=== PATIENT | female | born 2000 | race Caucasian/White ===

== ENCOUNTER 2022-03-18 15:01 | Emergency (ER) | payer OTHER ==
--- OUTSIDE RECORDS SUMMARY | 2022-03-18 15:06 | XMS REPORT | Continuity of Care Document ---
:2000 Author Organization [facility] t Address [address] Stewart [address] [place] [address] Care Team Providers Name Role Phone FREDERICK RICHARDSON Primary Care Physician Unavailable Brittnee Ramirez Attending Clinician Unavailable ANTONIA PIKE Attending Clinician Unavailable Ghanshyam Bragg Attending Clinician Unavailable Antonia Pike MD Attending Clinician Kishor Bishop Attending Clinician Unavailable Luis Burciaga Attending Clinician Unavailable Effie Solitario Attending Clinician Unavailable Dottie Chavez Attending Clinician Unavailable Miladis MIRELES, Nathalia Cagle Attending Clinician Ricarda Khan MD Attending Clinician Olivier BENDER HAND, Aneta Esparza Attending Clinician Pearl Chavez Attending Clinician Unavailable Aide COLE, Tashia Rae Attending Clinician Unavailable Berhane CHAVEZ, Lily Hummel Attending Clinician Maryellen PICKERING, Lydia Hilton Attending Clinician Doctor Unassigned, [place] Attending Clinician Unavailable Amauri RUSS, Madhavi Delcid Attending Clinician Brittnee Ramirez Admitting Clinician Unavailable Malu Tolentino Admitting Clinician Unavailable Emily Hurtado Admitting Clinician Unavailable Luis Burciaga Admitting Clinician Unavailable Effie Solitario Admitting Clinician Unavailable Physician, No Primary or Family Admitting Clinician UnavailDottie Mitchell Admitting Clinician Unavailable Ricarda Khan MD Admitting Clinician Pearl Chavez Admitting Clinician Unavailable Payers Payer Name Policy Type Policy Number Effective Date Expiration Date S mónica FORMERLY [facility] [id number] 2021 00:00:00 Problems Condition Condition Condition Status Onset Resolution Last Treating Co mments Source Name Details Category Date Date Treatment Clinician Date Anxiety Anxiety Disease Active [facility] Depression Depression Disease Active U nivers [facility] Allergies, Adverse Reactions, Alerts Allergy Allergy Status Severity Reaction(s) Onset Inactive Treating Comm ents Source Name Type Date Date Clinician No Known DA Active [facility] Allergie 11-23 Clear s 00:00: [place] 00 [facility] No Known DA Active [facility] Allergie 11-23 Clear s 00:[facility]: [place] [facility] MALIC DA Active SV TONGUE 2018-0 [facility] ACID SWELLING, 608 Clear THROAT 00:00: [place] CLOSING [address] [facility] Malic Drug Active Swelling 2018-0 Univers Acid Allergy 6-08 ity of 00:00: [place] 00 [facility] MALIC DRUG Active High Swelling 2018-0 Univers ACID INGREDI 6-08 ity of 00:00: 00 Medical Branch SOUR DRUG Active Anaphylaxis 2018-0 Unive rs MOREAU INGREDI 4-30 ity of 00:00: 00 Medical Branch Sour Propensi Active Anaphylaxis 2018-0 Sour Uni vers [place] ty to 4-30 flavoring ity of adverse 00:00: on all [place] [facility] [place] Social History Social Habit Start Date Stop Date Quantity Comments Source Exposure to 2022-02-15 2022-02-25 Not sure [facility] SARS-CoV-2 00:00:00 13:08:00 [facility] (event) [place] Alcohol intake 2022-02-25 2022-02-25 Ex-drinker [facility] 00:00:00 00:00:00 (finding) [facility] Tobacco use and 2022-02-25 2022-02-25 Smokeless tobacco Un iversity of exposure 00:00:00 00:00:00 non-user [facility] Sex Assigned At [birth year] Universit y of 00:00:00 00:00:00 [facility] Smoking Status Start Date Stop Date Source Never smoked tobacco [facility] Medications Ordered Filled Start Stop Current Ordering Indication Dosage Frequency Signature Comments Components Source Medication Medication Date Date Medication? Clinician (SIG) Name Name FLUTICASONE 2020-07 Yes [id number] SPRAY 1 Univers PROPIONATE 2-02 SPRAY INTO ity of 50 00:00: EACH [place] mcg/actuati 00 NOSTRIL Medic al on nasal EVERY DAY Branch spray EPINEPHrine 2019-07 Yes [id number] INJECT 0.3 Univers 0.3 mg/0.3 1-30 ML BY ity of mL 00:00: INTRAMUSCU [place] injection 00 LAR ROUTE Medic al ONCE NOW Branch FOR 1 DOSE. Immunizations Ordered Immunization Filled Immunization Date Status Commen ts Source Name Name Meningococcal 2019-02-23 Completed [place] of Polysaccharide 00:00:00 [place] [facility] (groups A, C, Y and Branc h W-135) conjugate vaccine (MCV4P) DTP 2005-01-21 Completed University of 00:00:00 [facility] HIB 3 Dose Schedule 2005-01-21 Completed Unive rsity of 00:00:00 [facility] HEPATITIS A 2005-01-21 Completed University of 00:00:00 [facility] Pneumococcal 7 2005-01-21 Completed University of Conjugate, PCV7 00:00:00 [facility] ical (Prevnar7) Branch MMR 2003-12-25 Completed University of 00:00:00 [facility] Polio (IPV/OPV) 2003-12-25 Completed Universit y of 00:00:00 [facility] Pneumococcal 7 2003-12-25 Completed University of Conjugate, PCV7 00:00:00 [facility] ical (Prevnar7) Branch DTP 2003-06-19 Completed University of 00:00:00 [facility] HIB 3 Dose Schedule 2003-06-19 Completed Unive rsity of 00:00:00 [facility] Hep B, Adol or Pedi 2003-06-19 Completed Unive rsity of Dosage 00:00:00 [facility] Polio (IPV/OPV) 2003-06-19 Completed Universit y of 00:00:00 [facility] Hep B, Adol or Pedi 2002 Completed Unive rsity of Dosage 00:00:00 [facility] Procedures Procedure Date / Time Performed Performing Clinician Gisele rosario [id number] 2021-03-26 00:00:00 MAXBA [facility] [id number] 2021-03-26 00:00:00 MAXBA [facility] Encounters Start End Encounter Admission Attending Care Care Encounter Source Date/Time Date/Time Type Type Clinicians Facility Department ID 2020-11-23 Inpatient [place], [facility] OLGA [id number] [facility] 00:02:00 Brittnee [id number] [facility] 2020-10-05 Inpatient HCACL KAELA [id number] [facility] 01:14:00 [id number] [facility] 2020-08-22 Inpatient HCACL KAELA [id number] [facility] 20:18:00 [id number] [facility] 2020-02-15 Inpatient HCACL KAELA [id number] [facility] 22:49:00 [facility] 2022-03-20 2022-03-20 Outpatient R PIKE, [facility] [id number] Univers 14:10:00 14:10:00 ANTONIA [id number] [facility] 2022-03-20 2022-03-20 Outpatient R SHAHZAD [facility] [id number] Univers 14:10:00 14:10:00 ANTONIA [facility] 2022-03-16 2022-03-16 Outpatient R SHAHZAD [facility] [id number] Univers 14:10:00 14:10:00 ANTONIA [id number] [facility] 2022-03-16 2022-03-16 Outpatient R SHAHZAD [facility] [id number] Univers 14:10:00 14:10:00 ANTONIA [facility] 2022-03-13 2022-03-13 Outpatient R SHAHZAD [facility] [id number] Univers 13:30:00 13:30:00 ANTONIA [id number] [facility] 2022-03-13 2022-03-13 Outpatient R SHAHZAD [facility] [id number] Univers 13:30:00 13:30:00 [facility] 2022-03-06 2022-03-06 Emergency EM Oalmita, HCACL AERS [id number] [facility] 15:06:00 16:12:00 Oluwadolapo 45 Cl [facility] 2022-03-04 2022-03-04 Telephone MARISOL Pike [id number] Univers 00:00:00 00:00:00 Antonia Garzon PEDIATRIC [id number] ity of [place] [id number] [place] [address] Branch [facility]ARE [facility] 2021-11-11 2021-11-11 Emergency EM Bishop, HCACL AERS [id number] [facility] 00:16:00 00:55:00 Kishor [id number] [facility] 2021-08-08 2021-08-08 Emergency EM Oalmita, HCACL AERS [id number] [facility] 22:06:00 22:30:00 Oluwadolapo [id number] [facility] 2021-08-08 2021-08-08 Emergency EM Oyebadejo, HCACL HC[facility]L [id number] [facility] 22:06:00 22:30:00 Oluwadolapo 00 Cl [facility] 2021-03-25 2021-03-28 Inpatient EL Maximos, HCACL OBPP [id number] [facility] 14:56:00 15:32:00 Luis [id number] [facility] 2021-03-25 2021-03-28 Inpatient EL Maximos, HCACL OBPP [id number] [facility] 14:56:00 15:32:00 Luis 40 [facility] 2021-03-12 2021-03-13 Emergency EM Billy HCACL OLGA [id number] [facility] 21:07:00 01:05:00 Diaz, [id number] [facility] 2021-03-01 2021-03-01 Emergency EM Maximos, HCACL OLGA [id number] [facility] 05:33:00 09:00:00 Luis [id number] [facility] 2021-02-17 2021-02-17 Emergency EM Billy HCACL OLGA [id number] [facility] 15:17:00 16:47:00 Diaz, [id number] [facility] 2021-02-12 2021-02-12 Emergency EM Billy HCACL OLGA [id number] [facility] 19:14:00 22:29:00 Diaz, [id number] [facility] 2021-01-29 2021-01-29 Emergency EM Bhalani, HC[facility]L OLGA [id number] [facility] 02:30:00 03:50:00 Dottie [id number] [facility] 2021-01-13 2021-01-13 Emergency Nathalia Redding Tsering [facility] [id number] 01:18:00 02:30:00 Ricarda Khan [id number] Bre[place] 4.2.7.2.686 [place] [id number] 2021-01-11 2021-01-11 Urgent Grow, Marisol [id number] 17:51:24 18:25:45 Care Aneta Pediatric [id number] Vil[place] s and 4.2.7.2.686 Adult [id number] [facility] 2020-12-25 2020-12-25 Emergency EM Scott, HCACL OLGA [id number] [facility] 15:08:00 18:26:00 Pearl [id number] [facility] 2020-11-23 2020-11-23 Emergency EM Ashley, HCACL OLGA [id number] [facility] 00:02:00 02:58:00 Brittnee [id number] [facility] 2020-11-01 2020-11-01 NICOLAS Calderon [id number] 00:00:00 00:00:00 (Out) Tashia SHELTON [id number]686 [id number] 019 2020-10-30 2020-10-31 Emergency [facility], [facility] [id number] 22:11:00 00:46:00 Lily Bauman [id number] Breeding 4.2.7.2.686 [place] [id number] 2020-10-26 2020-10-26 Urgent Grow, Marisol [id number] 18:33:25 19:03:11 Care Aneta Pediatric [id number] Vilma s and 4.2.7.2.686 Adult [id number] [facility] 2020-09-18 2020-09-19 Emergency [facility], [facility] [id number] 23:47:00 01:47:00 Lydia Bauman 350.1.13.10 Bre[place] 4.2.7.2.686 [place] [id number] 2020-09-18 2020-09-18 Gabriella VALENZUELA [id number] 00:00:00 00:00:00 Only Unassigned, NIKITA 350.1.13.10 [facility] 4.2.7.2.686 [id number] 2020-08-22 2020-08-22 Office Madhavi Baugh [id number] 15:52:31 16:12:31 Visit Ali Pediatric 350.1.13.10 s and 4.2.7.2.686 Adult [id number] Primary [facility] Results Test Description Test Time Test Comments Results Result [facility] e Comments - XR ANKLE 3 + V 2022-03-06 RT 00:00:00 [facility] : 2000 Sex: F FAX: Emily Mckoy MD [phone] [place]: [place] St: PRE FAX: Romeo Bragg Name: NILA BECERRA FSED : 2000 Age/S: 21/F [address] [facility] Unit #: [id number] Loc: RK [place], Raul [address] Phys: Ghanshyam Bragg MD Acct: [id number] Dis Date: Status: PRE ER PHONE #: Exam Date: 03/06/2022 1600 FAX #: Reason: R ANKLE PAIN AFTER FALL EXAMS: CPT CODE: [id number] XR ANKLE 3 + V RT [id number] PROCEDURE INFORMATION: Exam: XR Right Ankle Exam date and time: 03/06/2022 3:54 PM Age: 21 years old Clinical indication: Pain; Ankle; Right; Additional info: R ankle pain after fall TECHNIQUE: Imaging protocol: Radiologic exam of the Right ankle. Views: 3 or more views. AP Oblique Lateral COMPARISON: CR XR ANKLE 3 + V RT 06/01/2015 10:32 PM FINDINGS: Bones/joints: There is normal alignment without fractures or dislocations. The tibiotalar joint and talar dome are unremarkable. The subtalar joint is unremarkable. The mortise is normal. The distal tibia-fibular alignment is unremarkable. There is no ankle joint effusion. Soft tissues: There is no soft tissue swelling. There are no radiopaque foreign bodies. Notes: If there is further concern, recommend follow-up radiographs or MRI for complete assessment. IMPRESSION: No fracture or dislocation at 5021 Reported and signed by: Eemka Pickering M.D. CC: Emily Hurtado MD; Ghanshyam Bragg MD Technologist: RT Valerie(R)(CT) Trnscrd Date/Time/By: 03/06/2022 ([id number]) : By: SandraL Orig Print D/T: S: 03/06/2022 (7948) PAGE 1 Signed Report - XR FOOT 3 + V RT 2022-03-06 00:00:00 [facility] : 2000 Sex: F FAX: Emily Mckoy MD [phone] [place]: [place] St: PRE FAX: Romeo Bragg Name: CATRACHO BECERRAABECLINT Rileyin FSED : 2000 Age/S: 21/F [address] [facility] Unit #: [id number] Loc: [place] [address] Phys: Ghanshyam Bragg MD Acct: [id number] Dis Date: Status: PRE ER PHONE #: Exam Date: 03/06/2022 7278 FAX #: Reason: r foot injury EXAMS: CPT CODE: [id number] XR FOOT 3 + V RT [id number] PROCEDURE INFORMATION: Exam: XR Right Foot Exam date and time: 03/06/2022 3:35 PM Age: 21 years old Clinical indication: Pain; Foot; Right; Additional info: R foot injury TECHNIQUE: Imaging protocol: Radiologic exam of the Right foot. Views: 3 or more views. AP Oblique Lateral COMPARISON: CR XR TIBIA/FIBULA 2 V RT 06/01/2015 10:54 PM FINDINGS: Bones/joints: There is normal alignment without fractures or dislocations. The joints appear unremarkable. Soft tissues: There are no radiopaque foreign bodies. There is no soft tissue gas or osseous erosive changes noted. Notes: If there is further concern, recommend follow-up radiographs or MRI for complete assessment. IMPRESSION: No fractures or dislocation at 1604 Reported and signed by: Emeka Pickering M.D. CC: Emily Hurtado MD; Ghanshyam Bragg MD Technologist: Katerina Rosas RT(R)(CT) Trnscrd Date/Time/By: 03/06/2022 ([id number]) : By: KaneSBL Orig Print D/T: S: 03/06/2022 (1383) PAGE 1 Signed Report URINE HCG TRIAGE (ER ONLY) 2021-11-11 08:40:00 Test Item Value Reference Range Interpretation Comme nts URINE HCG TRIAGE (ER ONLY) (test code = HCGTRIAGE) NEGATIVE Neg ative Urine Test Result: NEGATIVEAre internal controls (presence of a control line & clear background) OK? YLot # of HCG Test Kit: [id number] Date of Kit: 02/15/23Test Performed by: Carlo Mancillaomed on: 11/11/21COMMENTS: NEGATIVEUA DIPSTICK [id number] 00:46:00 Test Item Value Reference Range Interpretation Comments UA GLUCOSE DIPSTIC POC NEGATIVE NEGATIVE (test code = GLUUP) UA BILIRUBIN DIPSTICK NEGATIVE NEGATIVE (test code = BILU) UA KETONE DIPSTICK POC NEGATIVE NEGATIVE (test code = KETUP) UA SPECIFIC GRAVITY (test 1.010 1.005-1.030 N code = SGU) UA BLOOD DIPSTIC POC NEGATIVE NEGATIVE Perform ed by (test code = BLUP) certified splicer machine operator at [facility] ed [facility] UA PH DIPSTIC POC (test 7 5.0-7.0 N code = PHUP) UA PROTEIN DIPSTICK POC NEGATIVE NEGATIVE (test code = DPROUP) UA UROBILINIOGEN QUAL NORMAL 0.2-1.0 (test code = UROQL) UA NITRITE DIPSTICK POC NEGATIVE Negative (test code = NITUP) UA LEUKOCYTE ESTERASE W Negative NEGATIVE REFLEX (test code = LEUUR) SURGICAL PATH [id number] 13:13:00 Test Item Value Reference Range Interpretation Comments SURGICAL PATH SPECIMENS (test code = S) RUN DATE: 03/28/21 [place] - LAB PAGE 1 RUN TIME: 1313 Specimen Inquiry RUN USER: INTERFACE ARTEMIO ENT: NILA BECERRA [facility] #: [id number] LOC: MAIKEL #: [id number] AGE/SX: 20/F ROOM: [facility] RE03/25/21REG DR: Luis Burciaga MD : [birth year] BED: 1 DIS: STATUS: ADM IN TLOC: SPEC #: [id number] RECD: 03/27/21 STATUS: GLENN RE #: [id number] SLOAN: 03/26/21- SUBM DR: Luis Burciaga MD ENTERED: 03/27/21 SP TYPE: SURG SPEC OTHR DR: ORDERED: GM LEVEL 5 CODES: [id number] - PLACENTA, NOS PROCEDURES: GM LEVEL 5 (03/27/21) TISSUES: PLACENTA, NOS FINAL DIAGNOSIS Placenta, delivery: Third trimester placenta, 584 g, large for gestation age; membranes with no acute inflammation; Focal decidual vasculopathy; Trivascular umbilical cord unremarkable. GROSS AND MICROSCOPIC GROSS DESCRIPTION: Received in formalin and labeled "Placenta" is a jauregui placenta, 18 x 16 x 3 cm. The trivascular umbilical cord measures 47 x 1.3 x 1.1 cm, inserting eccentrically to a location 5 cm to the placental edge. The membranes attach marginally and are translucent. The placenta weighs 584 g after trimming the membranes and cord. The surface is blue-purple, with superficially distributed chorionic vessels. The maternal surface shows red-brown intact cotyledons. The parenchyma is dark red and spongy, with no discrete lesion identified. Cassette summary: (A) - cord and membranes; (B) placenta edge; (C) - placenta center. MICROSCOPIC EXAMINATION: A microscopic examination was performed to arrive at the diagnostic conclusion reported. PRE-OP DIAGNOSIS 37.4 WK INTRAUTERINE ----- Signed SIGNATURE ON FILE Misty Emmanuel 03/28/21 1313 END OF REPORT CBC W/AUTO [id number] 07:03:00 Test Item Value Reference Range Interpretation Comments WHITE BLOOD CELL (test code = 12.6 x10 3/uL 4.5-11.0 H WBC) RED BLOOD CELL (test code = 2.95 x10 6/uL 3.54-5.02 L RBC) HEMOGLOBIN (test code = HGB) 8.0 g/dL 11.0-15.0 L HEMATOCRIT (test code = HCT) 25.8 % 33.0-45.0 L MEAN CELL VOLUME (test code = 87.5 fL 81.0-99.0 N MCV) MEAN CELL HGB (test code = MCH) 27.1 pg 27.0-33.0 N MEAN CELL HGB CONCETRATION 31.0 g/dL 33.0-37.0 L (test code = MCHC) RED CELL DISTRIBUTION WIDTH CV 14.5 % 11.5-14.5 N (test code = RDW) RED CELL DISTRIBUTION WIDTH SD 46.5 fL 37.0-54.0 N (test code = RDW-SD) PLATELET COUNT (test code = 294 x10 3/uL 150-400 N PLT) MEAN PLATELET VOLUME (test code 11.7 fL 7.0-9.0 H = MPV) NEUTROPHIL % (test code = NT%) 64.4 % 56.0-77.0 N IMMATURE GRANULOCYTE % (test 0.5 % 0.0-2.0 N code = IG%) LYMPHOCYTE % (test code = LY%) 24.9 % 14.0-32.0 N MONOCYTE % (test code = MO%) 9.4 % 4.8-9.0 H EOSINOPHIL % (test code = EO%) 0.6 % 0.3-3.7 N BASOPHIL % (test code = BA%) 0.2 % 0.0-2.0 N NUCLEATED RBC % (test code = 0.0 % 0-0 N NRBC%) NEUTROPHIL # (test code = NT#) 8.09 x10 3/uL 2.0-7.6 H IMMATURE GRANULOCYTE # (test 0.06 x10 3/uL 0.00-0.03 H code = IG#) LYMPHOCYTE # (test code = LY#) 3.13 x10 3/uL 1.0-3.8 N MONOCYTE # (test code = MO#) 1.18 x10 3/uL 0.1-0.8 H EOSINOPHIL # (test code = EO#) 0.07 x10 3/uL 0.0-0.2 N BASOPHIL # (test code = BA#) 0.03 x10 3/uL 0.0-0.2 N NUCLEATED RBC # (test code = 0.00 x10 3/uL 0.0-0.1 N NRBC#) MANUAL DIFF REQUIRED (test code NO = MDIFF) CORD VENOUS BLOOD [id number] 18:41:00 Test Item Value Reference Range Interpretation Comments CORD VENOUS PH (test code = PHCV) 7.22 7.25-7.45 L CORD VENOUS PCO2 (test code = 57 mmHg 27-49 H PCO2CV) CORD VENOUS PO2 (test code = 17 mmHg 17-41 N PO2CV) CORD VENOUS HCO3 (test code = 23.2 MMOL/L 12-28 N HCO3CV) CORD VENOUS BASE EXCESS (test -4.5 mmol/L -8.0-0.00 N code = BEXCV) CORD VENOUS 02 SAT (test code = 17 % O2SCV) CORD ARTERIAL BLOOD [id number] 18:40:00 Test Item Value Reference Range Interpretation Comments CORD BLOOD PH (test code = PH/C) 7.19 7.18-7.38 N CORD BLOOD PCO2 (test code = 59 mmHg 32-66 N PCO2/C) CORD BLOOD PO2 (test code = 22 mmHg 6-30 N PO2/C) CORD BLOOD HCO3 (test code = 22 mmol/L 17-27 N HCO3/C) BASE EXCESS CORD (test code = -5.9 mmol/L -8.0-0.0 N ARUN/C) O2 SATURATION (test code = O2S/C) 25 % 72-77 L RAPID PLASMA [id number] 10:40:00 Test Item Value Reference Range Interpretation Comments RAPID PLASMA REAGIN (test code = NONREACTIVE NONREACTIVE RPR) AG HEPATITIS B [id number] 10:40:00 Test Item Value Reference Range Interpretation Comments AG HEPATITIS B SURFACE NON REACTIVE INDEX NonReactive (test code = HBSAG) AB HIV 1 10:40:00 Test Item Value Reference Range Interpretation Comments AB HIV 1 2 (test code = MQM08HI) Nonreactive Nonreactive COVID 19 Asymptomatic IH [id number] 20:20:00 Test Item Value Reference Range Interpretation Comments COVID 19 Asymptomatic Negative Negative A nega tive result is IH AG (test code = presumpti ve and should COVNONPUIAG) be confirmedwit h an FDA authorized mole cular assay, if neces sabrina forpatient lisa gement.A positive result does not rule out co-inf ections withother patho gens.This test detects timothy th viable (live) and non-viable,SARS -CoV, and SARS-CoV-2. Naima t performance dep ends on theamount of vi juan (antigen) in th e sample.This naima t has not been FDA cleare d or approved; the t est hasbeen authori zed by FDA under an Em ergency Use Authorizati on(EUA) for use by labo ratories certified under the CLIA thatmeet the requirements to perform moderate, high or waivedcomplexit y tests. URINALYSIS [id number] 18:48:00 Test Item Value Reference Range Interpretation Comments UA COLOR (test code = COLU) YELLOW YEL/STRAW UA APPEARANCE (test code = APPU) SL CLOUDY CLEAR UA GLUCOSE DIPSTICK (test code = NEGATIVE NEGATIVE DGLUU) UA BILIRUBIN DIPSTICK (test code NEGATIVE NEGATIVE = BILU) UA KETONE DIPSTICK (test code = NEGATIVE NEGATIVE KETU) UA SPECIFIC GRAVITY (test code = 1.010 1.005-1.030 N SGU) UA BLOOD DIPSTICK (test code = NEGATIVE NEGATIVE KURTIS) UA PH DIPSTICK (test code = SHAINA) 7.0 5.0-7.0 N UA PROTEIN DIPSTICK (test code = 1+ NEGATIVE A PROU) UA UROBILINIOGEN DIPSTICK (test 0.2 mg/dL 0.2-1.0 code = URO) UA NITRITE DIPSTICK (test code = NEGATIVE NEGATIVE BHUPENDRA) UA LEUKOCYTE ESTERASE DIPSTICK NEGATIVE NEGATIVE (test code = LEUU) UA RBC (test code = RBCU) 4-10 RBC/HPF 0-3 UA WBC NO REFLEX (test code = 0-3 WBC/HPF 0-3 WBCUCL) UA BACTERIA (test code = BACU) TRACE /HPF NONE SEEN UA SQUAMOUS CELLS (test code = 0-5 /HPF NONE SEEN SQU) UA MUCUS (test code = MUCU) TRACE /LPF NONE SEEN RAPID PLASMA [id number] 18:11:00 Test Item Value Reference Range Interpretation Comments RAPID PLASMA REAGIN (test code = RPR) NONREACTIVE AG HEPATITIS B [id number] 18:11:00 Test Item Value Reference Range Interpretation Comments AG HEPATITIS B SURFACE NON REACTIVE INDEX NonReactive (test code = HBSAG) AB HIV 1 18:11:00 Test Item Value Reference Range Interpretation Comments AB HIV 1 2 (test code = [id number]) Nonreactive Nonreactive COMPREHENSIVE METABOLIC [id number] 17:45:00 Test Item Value Reference Range Interpretation Comments SODIUM (test code = NA) 138 mEq/L 134-147 N POTASSIUM (test code = 4.0 mEq/L 3.4-5.0 N K) CHLORIDE (test code = 107 mEq/L 100-108 N CL) CARBON DIOXIDE (test 22 mEq/l 21-33 N code = CO2) ANION GAP (test code = 13 0-20 N GAP) GLUCOSE (test code = 78 mg/dL 70-110 N GLU) BLOOD UREA NITROGEN < 5 mg/dL 7-18 L (test code = BUN) GLOMERULAR FILTRATION 160.7 110-120 H Units of measure = RATE (test code = GFR) ml/mi n/1.73 m2 CREATININE (test code = 0.5 mg/dL 0.6-1.3 L CREAT) TOTAL PROTEIN (test 6.9 g/dL 6.4-8.2 N code = PROT) ALBUMIN (test code = 2.80 g/dL 3.4-5.0 L ALB) CALCIUM (test code = 8.9 mg/dL 8.0-10.5 N CA) BILIRUBIN TOTAL (test 0.40 mg/dL 0.0-1.0 N code = BILT) SGOT/AST (test code = 14 IUnit/L 15-37 L AST) SGPT/ALT (test code = < 7 IUnit/L 30-65 L ALT) ALKALINE PHOSPHATASE 153 IUnit/L 60-350 N TOTAL (test code = ALKP) URIC [id number] 17:45:00 Test Item Value Reference Range Interpretation Comments URIC ACID (test code = URIC) 4.0 mg/dL 2.6-7.2 N LACTIC DEHYDROGENASE(LDH)2021-03-25 17:45:00 Test Item Value Reference Range Interpretation Comments LACTIC DEHYDROGENASE(LDH) (test 225 IUnits/L 84-246 N code = LDH) CBC W/AUTO [id number] 17:24:00 Test Item Value Reference Range Interpretation Comments WHITE BLOOD CELL (test code = x10 3/uL 4.5-11.0 WBC) RED BLOOD CELL (test code = RBC) x10 6/uL 3.54-5.02 HEMOGLOBIN (test code = HGB) g/dL 11.0-15.0 HEMATOCRIT (test code = HCT) % 33.0-45.0 MEAN CELL VOLUME (test code = fL 81.0-99.0 MCV) MEAN CELL HGB (test code = MCH) pg 27.0-33.0 MEAN CELL HGB CONCETRATION (test g/dL 33.0-37.0 code = MCHC) RED CELL DISTRIBUTION WIDTH CV % 11.5-14.5 (test code = RDW) PLATELET COUNT (test code = PLT) 359 x10 3/uL 150-400 N NEUTROPHIL % (test code = NT%) % 56.0-77.0 LYMPHOCYTE % (test code = LY%) % 14.0-32.0 NEUTROPHIL # (test code = NT#) x10 3/uL 2.0-7.6 LYMPHOCYTE # (test code = LY#) x10 3/uL 1.0-3.8 MANUAL DIFF REQUIRED (test code = MDIFF) CBC W/AUTO [id number] 17:24:00 Test Item Value Reference Range Interpretation Comments WHITE BLOOD CELL (test code = 10.4 x10 3/uL 4.5-11.0 N WBC) RED BLOOD CELL (test code = 3.67 x10 6/uL 3.54-5.02 N RBC) HEMOGLOBIN (test code = HGB) 10.0 g/dL 11.0-15.0 L HEMATOCRIT (test code = HCT) 32.7 % 33.0-45.0 L MEAN CELL VOLUME (test code = 89.1 fL 81.0-99.0 N MCV) MEAN CELL HGB (test code = MCH) 27.2 pg 27.0-33.0 N MEAN CELL HGB CONCETRATION 30.6 g/dL 33.0-37.0 L (test code = MCHC) RED CELL DISTRIBUTION WIDTH CV 14.5 % 11.5-14.5 N (test code = RDW) RED CELL DISTRIBUTION WIDTH SD 47.1 fL 37.0-54.0 N (test code = RDW-SD) PLATELET COUNT (test code = 359 x10 3/uL 150-400 N PLT) MEAN PLATELET VOLUME (test code 11.1 fL 7.0-9.0 H = MPV) NEUTROPHIL % (test code = NT%) 61.2 % 56.0-77.0 N IMMATURE GRANULOCYTE % (test 0.5 % 0.0-2.0 N code = IG%) LYMPHOCYTE % (test code = LY%) 30.9 % 14.0-32.0 N MONOCYTE % (test code = MO%) 6.4 % 4.8-9.0 N EOSINOPHIL % (test code = EO%) 0.6 % 0.3-3.7 N BASOPHIL % (test code = BA%) 0.4 % 0.0-2.0 N NUCLEATED RBC % (test code = 0.0 % 0-0 N NRBC%) NEUTROPHIL # (test code = NT#) 6.35 x10 3/uL 2.0-7.6 N IMMATURE GRANULOCYTE # (test 0.05 x10 3/uL 0.00-0.03 H code = IG#) LYMPHOCYTE # (test code = LY#) 3.20 x10 3/uL 1.0-3.8 N MONOCYTE # (test code = MO#) 0.66 x10 3/uL 0.1-0.8 N EOSINOPHIL # (test code = EO#) 0.06 x10 3/uL 0.0-0.2 N BASOPHIL # (test code = BA#) 0.04 x10 3/uL 0.0-0.2 N NUCLEATED RBC # (test code = 0.00 x10 3/uL 0.0-0.1 N NRBC#) MANUAL DIFF REQUIRED (test code NO = MDIFF) - US BIOPHYS [id number] 00:00:00 [facility] 2000 Sex: F Name: NILA BECERRA [facility] : 2000 Age/S: 20 / F [address] [place] [address] Bl Unit #: [id number] Loc: [place] [address] Phys: Effie Solitario MD Acct: [id number] Dis Date: Status: REG ER PHONE #: [phone] Exam Date: 03/12/202141 FAX #: [phone] Reason: Possible SROM, please evaluate ISMA EXAMS: CPT CODE: [id number] US BIOPHYS PROF [id number] PROCEDURE INFORMATION: Exam: US Biophysical Profile With Non-Stress Test Exam date and time: 03/12/2021 11:26 PM Age: 20 years old Clinical indication: Other: Srom; ; Additional info: Possible srom, please evaluate isma TECHNIQUE: Imaging protocol: biophysical profile with non-stress test. COMPARISON: US BIOPHYS PROF 03/01/2021 7:32 AM FINDINGS: EGA: 35 weeks, 4 days. Presentation: Cephalic. heart rate: 134 bpm Placenta location: The placenta is anterior, non- previa without signs of retroplacental hemorrhage. Grade: 3 S/D ratio: 1.8 ISMA: 8.2 cm breathing movements: 2 Gross body movements: 2 tone: 2 Amniotic fluid volume: 2 IMPRESSION: Biophysical profile score of 8 out of 8. at 0057 Reported and signed by: Reinaldo Will M.D. CC: Technologist: Yuki Ray RDMS()(OB) Trnscb Date/Time: 03/13/2021 (56) Sabine Orig Print D/T: S: 03/13/2021 (56) Probe: PAGE 1 Signed ReportAMNISURE (ROM) TEST 2021-03-12 22:05:00 Test Item Value Reference Range Interpretation Comments AMNISURE (ROM) TEST (test code = NEGATIVE NEGATIVE AMNI) URINALYSIS [id number] 21:48:00 Test Item Value Reference Range Interpretation Comments UA COLOR (test code = COLU) YELLOW YEL/STRAW UA APPEARANCE (test code = APPU) CLEAR CLEAR UA GLUCOSE DIPSTICK (test code = NEGATIVE NEGATIVE DGLUU) UA BILIRUBIN DIPSTICK (test code NEGATIVE NEGATIVE = BILU) UA KETONE DIPSTICK (test code = NEGATIVE NEGATIVE KETU) UA SPECIFIC GRAVITY (test code = 1.018 1.005-1.030 N SGU) UA BLOOD DIPSTICK (test code = NEGATIVE NEGATIVE KURTIS) UA PH DIPSTICK (test code = SHAINA) 6.0 5.0-7.0 N UA PROTEIN DIPSTICK (test code = NEGATIVE NEGATIVE PROU) UA UROBILINIOGEN DIPSTICK (test 0.2 mg/dL 0.2-1.0 code = URO) UA NITRITE DIPSTICK (test code = NEGATIVE NEGATIVE BHUPENDRA) UA LEUKOCYTE ESTERASE DIPSTICK NEGATIVE NEGATIVE (test code = LEUU) UA RBC (test code = RBCU) 0-3 RBC/HPF 0-3 UA WBC NO REFLEX (test code = 0-3 WBC/HPF 0-3 WBCUCL) UA BACTERIA (test code = BACU) TRACE /HPF NONE SEEN UA SQUAMOUS CELLS (test code = 0-5 /HPF NONE SEEN SQU) UA MUCUS (test code = MUCU) TRACE /LPF NONE SEEN URINALYSIS [id number] 07:00:00 Test Item Value Reference Range Interpretation Comments UA COLOR (test code = COLU) YELLOW YEL/STRAW UA APPEARANCE (test code = APPU) CLEAR CLEAR UA GLUCOSE DIPSTICK (test code = NEGATIVE NEGATIVE DGLUU) UA BILIRUBIN DIPSTICK (test code NEGATIVE NEGATIVE = BILU) UA KETONE DIPSTICK (test code = NEGATIVE NEGATIVE KETU) UA SPECIFIC GRAVITY (test code = 1.004 1.005-1.030 L SGU) UA BLOOD DIPSTICK (test code = NEGATIVE NEGATIVE KURTIS) UA PH DIPSTICK (test code = SHAINA) 7.0 5.0-7.0 N UA PROTEIN DIPSTICK (test code = NEGATIVE NEGATIVE PROU) UA UROBILINIOGEN DIPSTICK (test 0.2 mg/dL 0.2-1.0 code = URO) UA NITRITE DIPSTICK (test code = NEGATIVE NEGATIVE BHUPENDRA) UA LEUKOCYTE ESTERASE DIPSTICK NEGATIVE NEGATIVE (test code = LEUU) UA RBC (test code = RBCU) 0-3 RBC/HPF 0-3 UA WBC NO REFLEX (test code = 4-9 WBC/HPF 0-3 A WBCUCL) UA BACTERIA (test code = BACU) 3+ /HPF NONE SEEN A UA SQUAMOUS CELLS (test code = 0-5 /HPF NONE SEEN SQU) UA MUCUS (test code = MUCU) TRACE /LPF NONE SEEN - US BIOPHYS [id number] 00:00:00 [facility]: [facility]A [facility] : 2000 Sex: F Name: NILA BECERRA [facility] [place] : 2000 Age/S: 20 / F [address] [place] [address] Bl Unit #: [id number] Loc: [place] [address] Phys: Effie Solitario MD Acct: [id number] Dis Date: Status: REG ER PHONE #: [phone] Exam Date: 03/01/2021757 FAX #: [phone] Reason: decreased movements EXAMS: CPT CODE: [id number] US BIOPHYS PROF [id number] PROCEDURE INFORMATION: Exam: US Biophysical Profile With Non-Stress Test Exam date and time: 03/01/2021 7:32 AM Age: 20 years old Clinical indication: Other: Decreased movement; ; Additional info: Decreased movements TECHNIQUE: Imaging protocol: biophysical profile with non-stress test. COMPARISON: US BIOPHYS PROF 02/12/2021 8:58 PM FINDINGS: heart rate: heart rate 136 bpm. Placenta: Anterior placenta. BIOPHYSICAL PROFILE: Breathin/2 Gross body movements: 2/2 tone: 2/2 Qualitative amniotic fluid: 2/2 Other findings: Cephalic position. SD ratio 2.6, 2.4, 3.1. IMPRESSION: Biophysical profile score is 8/8. at 0810 Reported and signed by: Nilton Frederick M.D. CC: Technologist: Vilma Robles RDMS() Trnscb Date/Time: 03/01/2021 (809) [email or web address] Orig Print D/T: S: 03/01/2021 (0811) Probe: PAGE 1 Signed Report AMNISURE (ROM) [id number] 16:16:00 Test Item Value Reference Range Interpretation Comments AMNISURE (ROM) TEST (test code = NEGATIVE NEGATIVE AMNI) [id number] 16:16:00 Test Item Value Reference Range Interpretation Comments FIBRONECTIN (test code = FFN) NEGATIVE NEGATIVE [id number] 20:50:00 Test Item Value Reference Range Interpretation Comments FIBRONECTIN (test code = FFN) NEGATIVE NEGATIVE URINALYSIS [id number] 20:32:00 Test Item Value Reference Range Interpretation Comments UA COLOR (test code = COLU) YELLOW YEL/STRAW UA APPEARANCE (test code = APPU) CLEAR CLEAR UA GLUCOSE DIPSTICK (test code = NEGATIVE NEGATIVE DGLUU) UA BILIRUBIN DIPSTICK (test code NEGATIVE NEGATIVE = BILU) UA KETONE DIPSTICK (test code = NEGATIVE NEGATIVE KETU) UA SPECIFIC GRAVITY (test code = 1.006 1.005-1.030 N SGU) UA BLOOD DIPSTICK (test code = NEGATIVE NEGATIVE KURTIS) UA PH DIPSTICK (test code = SHAINA) 6.0 5.0-7.0 N UA PROTEIN DIPSTICK (test code = NEGATIVE NEGATIVE PROU) UA UROBILINIOGEN DIPSTICK (test 2.0 mg/dL 0.2-1.0 A code = URO) UA NITRITE DIPSTICK (test code = NEGATIVE NEGATIVE BHUPENDRA) UA LEUKOCYTE ESTERASE DIPSTICK NEGATIVE NEGATIVE (test code = LEUU) UA RBC (test code = RBCU) 0-3 RBC/HPF 0-3 UA WBC NO REFLEX (test code = 0-3 WBC/HPF 0-3 WBCUCL) UA BACTERIA (test code = BACU) TRACE /HPF NONE SEEN UA SQUAMOUS CELLS (test code = 0-5 /HPF NONE SEEN SQU) UA MUCUS (test code = MUCU) TRACE /LPF NONE SEEN - US BIOPHYS [id number] 00:00:00 [facility] : 2000 Sex: F Name: NILA BECERRA [facility] [place] : 2000 Age/S: 20 / F [address] [place] [address] Bl Unit #: [id number] Loc: [place] [address] Phys: Effie Solitario MD Acct: [id number] Dis Date: Status: REG ER PHONE #: [phone] Exam Date: 02/12/20212122 FAX #: [phone] Reason: Decreased movements EXAMS: CPT CODE: [id number] US BIOPHYS PROF [id number] PROCEDURE INFORMATION: Exam: US Biophysical Profile With Non-Stress Test Exam date and time: 02/12/2021 8:58 PM Age: 20 years old Clinical indication: Other: Decreased fm; ; Additional info: Decreased movements TECHNIQUE: Imaging protocol: biophysical profile with non-stress test. COMPARISON: [facility] 12/25/2020 4:51 PM FINDINGS: heart rate: The heart rate is 126 bpm. Presentation: There is a single live intrauterine gestation in vertex presentation. Placenta: There is a grade 3 anterior placenta. There is no placenta previa or placental abruption. There is a 3 vessel umbilical cord. The umbilical cord S/D ratios range between 1.8 and 2.6, which is between normal limits. Amniotic fluid index: The amniotic fluid index is 10.6 cm. The deepest vertical pocket is 0.5 cm. This is within normal limits. BIOPHYSICAL PROFILE: Breathin/2 Gross body movements: 2/2 tone: 2/2 Qualitative amniotic fluid: 2/2 Reactive heart rate: 2/2 Biophysical Profile Score: 10/10 MATERNAL ANATOMY: Cervix: The uterine cervix is closed and the cervical length is 3.5 cm. Urinary bladder: The maternal urinary bladder appears normal as visualized. IMPRESSION: 1. There is a single live intrauterine gestation in vertex presentation. 2. Normal biophysical profile score of 8/8. 3. The amniotic fluid index is 10.6 cm. The deepest vertical pocket is 0.5 cm. This is within normal limits. 4. The uterine cervix is closed and the cervical length is 3.5 cm. PAGE 1 Signed Report (CONTINUED) Name: NILA BECERRA [facility] [place] : 2000 Age/S: 20 / F [address] [place] [address] Blvd Unit #: [id number] Loc: [place] [address] Phys: Effie Solitario MD Acct: [id number] Dis Date: Status: REG ER PHONE #: [phone] Exam Date: 02/12/20212122 FAX #: [phone] Reason: Decreased movements EXAMS: CPT CODE: [id number] US BIOPHYS PROF [id number] <Continued> at 2121 Reported and signed by: Geovanny Hughes D.O. CC: Technologist: Yuki Ray RDMS(AB)(OB) Trnscb Date/Time: 02/12/2021 (2121) [email or web address] Orig Print D/T: S:02/12/2021 (2148) Probe: PAGE 2 Signed ReportURINALYSIS [id number] 03:25:00 Test Item Value Reference Range Interpretation Comments UA COLOR (test code = COLU) YELLOW YEL/STRAW UA APPEARANCE (test code = APPU) CLOUDY CLEAR A UA GLUCOSE DIPSTICK (test code = NEGATIVE NEGATIVE DGLUU) UA BILIRUBIN DIPSTICK (test code NEGATIVE NEGATIVE = BILU) UA KETONE DIPSTICK (test code = NEGATIVE NEGATIVE KETU) UA SPECIFIC GRAVITY (test code = 1.010 1.005-1.030 N SGU) UA BLOOD DIPSTICK (test code = NEGATIVE NEGATIVE KURTIS) UA PH DIPSTICK (test code = SHAINA) 7.0 5.0-7.0 N UA PROTEIN DIPSTICK (test code = NEGATIVE NEGATIVE PROU) UA UROBILINIOGEN DIPSTICK (test 0.2 mg/dL 0.2-1.0 code = URO) UA NITRITE DIPSTICK (test code = NEGATIVE NEGATIVE BHUPENDRA) UA LEUKOCYTE ESTERASE DIPSTICK NEGATIVE NEGATIVE (test code = LEUU) UA RBC (test code = RBCU) 0-3 RBC/HPF 0-3 UA WBC NO REFLEX (test code = 4-9 WBC/HPF 0-3 A WBCUCL) UA BACTERIA (test code = BACU) 1+ /HPF NONE SEEN A UA SQUAMOUS CELLS (test code = 0-5 /HPF NONE SEEN SQU) UA MUCUS (test code = MUCU) TRACE /LPF NONE SEEN - US [id number] 17:34:00 [facility] 2000 Sex: F Name: NILA BECERRA [facility] : 2000 Age/S: 20 / F [address] [place] [address] Blvd Unit #: [id number] Loc: [place] [address] Phys: Pearl Chavez DO Acct: [id number] Dis Date: Status: REG ERPHONE #: [phone] Exam Date: 12/25/2020 1726 FAX #: [phone] Reason: h/o low ISMA, unsure if PROM, translabial cervic EXAMS: CPT CODE: [id number] [place] LTD 27777 LIMITED ULTRASOUND INDICATION: with history of low amniotic fluid index. Unsure premature rupture of membranes. Translabial cervical length. Lower abdominal pain. Back pain. COMPARISON: 11/23/2020 ultrasound ULTRASOUND FINDINGS: Limited transabdominal ultrasound was performed. Gestation: Single: Yes Cardiac Motion: Yes (BPM):132-145 Presentation: Cephalic Placenta Location: AnteriorPlacenta Grade: 1 Placenta Previa: No Uterus/Cervix/Adnexa: The cervix measures 3.3 cm in length. Nofetal anatomical survey was performed. Clinical: LMP= ? MA= 24 wks 4 days Ultrasound: MA= 24 wks 6 days MA MEAN BPD: 25 wks 2 days 6.2 cm HC/AC: 1.14 (1.04-1.22) HC: 24 wks 6 days 22.8 cm FL/AC: 22.42(20%- 24%) AC: 24 wks 5 days 20 cm FL/BPD: 72.16 (71%-87%) FL: 24 wks 6 days 4.5 cm HUM: 24 wks 4 days 4 cm EFW: 730 +/- 109 gm LMP%: 48.5% ISMA (after 24 weeks): 13.6 cm S/D Ratio (after 24 weeks): 2.6IMPRESSION: Single viable intrauterine of estimated sonographic gestational age of 24 weeks 6 days. SL: SG-H PAGE 1 Signed Report (CONTINUED) Name: NILA BECERRA [facility] : 2000 Age/S: 20 / F [address] [place] [address] Unit #: [id number] Loc: [place] [address] Phys: Pearl Chavez DO Acct: [id number] Dis Date: Status: REG ER PHONE #: [phone] Exam Date: 12/25/2020 1726 FAX #: [phone] Reason: h/o low ISMA, unsure if PROM, translabial cervic EXAMS: CPT CODE: [id number] LTD 79074 <Continued> Electronically Signed by Valeria Izquierdo on 12/25/2020 at 1734 Reported and signed by: Judah Izquierdo M.D. CC: Pearl Chavez DO Technologist: Merna Figueroa RDMS(AB) Trnscb Date/Time: 12/25/2020 (173) [email or web address] Orig Print D/T: S: 12/25/2020 (173) Probe: PAGE 2 Signed ReportAMNISURE (ROM) [id number] 17:14:00 Test Item Value Reference Range Interpretation Comments AMNISURE (ROM) TEST (test code = NEGATIVE NEGATIVE AMNI) URINALYSIS [id number] 17:10:00 Test Item Value Reference Range Interpretation Comments UA COLOR (test code = COLU) MADHAVI YEL/STRAW A UA APPEARANCE (test code = APPU) TURBID CLEAR A UA GLUCOSE DIPSTICK (test code = 1+ NEGATIVE A DGLUU) UA BILIRUBIN DIPSTICK (test code NEGATIVE NEGATIVE = BILU) UA KETONE DIPSTICK (test code = NEGATIVE NEGATIVE KETU) UA SPECIFIC GRAVITY (test code = 1.016 1.005-1.030 N SGU) UA BLOOD DIPSTICK (test code = NEGATIVE NEGATIVE KURTIS) UA PH DIPSTICK (test code = SHAINA) 7.0 5.0-7.0 N UA PROTEIN DIPSTICK (test code = NEGATIVE NEGATIVE PROU) UA UROBILINIOGEN DIPSTICK (test 0.2 mg/dL 0.2-1.0 code = URO) UA NITRITE DIPSTICK (test code = NEGATIVE NEGATIVE BHUPENDRA) UA LEUKOCYTE ESTERASE DIPSTICK NEGATIVE NEGATIVE (test code = LEUU) UA RBC (test code = RBCU) 0-3 RBC/HPF 0-3 UA WBC NO REFLEX (test code = 0-3 WBC/HPF 0-3 WBCUCL) UA BACTERIA (test code = BACU) TRACE /HPF NONE SEEN UA SQUAMOUS CELLS (test code = 11-25 /HPF NONE SEEN A SQU) UA MUCUS (test code = MUCU) TRACE /LPF NONE SEEN UA AMORPHOUS SEDIMENT (test code 2+ /HPF NONE A = AMORU) DRUGS OF ABUSE SCREEN [id number] 17:07:00 Test Item Value Reference Range Interpretation Comments URN COCAINE (test code NEGATIVE NEGATIVE = COCAURN) URN CANNABINOIDS (test NEGATIVE NEGATIVE code = CANNABURN) URN AMPHETAMINE (test NEGATIVE NEGATIVE code = AMPHETURN) URN BARBITURATE (test NEGATIVE NEGATIVE code = BARBITURN) URN BENZODIAZEPINE NEGATIVE NEGATIVE Cut-off v alue:200 (test code = BENZOURN) ng/mL URN OPIATES (test code NEGATIVE NEGATIVE Cut-o ff value:2000 = OPIATURN) ng/mL URN PHENCYCLIDINE (PCP) NEGATIVE NEGATIVE Cuto ffs:Barbiturates (test code = PHENCURN) 200 ng/mLBenzodiaze pines 200 ng/mLTHC Cannabinoids 50 ng/mLOpiates(Mo rphine) 2000 ng/mLAmphe tamine 1000 ng/mLCocai ne 300 ng/mLPCP phency clidine 25 ng/mL Unconf irmed screening resul ts shouldnot be us ed for non-medical pur poses. - US PREG AFTER [id number] 02:47:00 [facility] 2000 Sex: F Name: NILA BECERRA [facility] : 2000 Age/S: 19 / F [address] [place] [address] Blvd Unit #: [id number] Loc: [place] [address] Phys: Brittnee Ramirez MD Acct: [id number] Dis Date: Status: REG ER PHONE #: [phone] Exam Date: 11/23/2020143 FAX #: [phone] Reason: No PNC, bleeding, approximately 20 weeks EXAMS: CPT CODE: [id number] US PREG AFTER TRI 25161 EXAM: US, US PREG AFTER 1SR TRI: 11/23/2020, 0108 hours HISTORY: No PNC, bleeding, approximately 20 weeks TECHNIQUE: Sonographic evaluation is performed of the pelvis via transabdominal approach using grayscale, color flow and Doppler imaging when appropriate. COMPARISON: None available. FINDINGS: The examination shows a single fetus in variable presentation. Normal cardiac activity is noted at 140 per second. The amount of amniotic fluid is normal. The placenta is anterior, grade 1. There is no evidence of previa. The following measurements are obtained: 1. BPD - 439 cm : Avg = 19 weeks 2 days . 2. HEAD CIRCUMFERENCE - 16.7 8 cm : Avg = 19 weeks 3 days . 3. ABDOMINAL CIRCUMFERENCE - 15.25 cm : Avg = 20 weeks 3 days . 4. FEMUR LENGTH - 3.07 cm: Avg = 19 weeks 4 days . 5. EFW: (AC.BPD, FL.HC)- Hadlock - 322.32 g +/- 48.35 gEFW (Hadlock)-GP 41.9 % FL/AC: 20.15 FL/BPD: 69.95 FL/HC: 18.31 (16.70--19.59) HC/AC: 1.10 (1.08--1.26) The measurements correspond with an sonographic EGA of 19 weeks 6 days and an sonographic DANY of04/13/2021 plus or minus one standard deviation. The LMP estimated gestational age is 20 weeks 0 day. DANY by LMP is 04/12/2021. There is difference of one day between LMP estimated gestational age andsonographic gestational age. Gross survey, within the limitation of gestational age, is unremarkable. Three-vessel umbilical cord, cord insertion, kidneys, bladder, stomach, extremities and4 chamber view of heart was PAGE 1 Signed Report (CONTINUED) Name: NILA BECERRA [facility] : 2000 Age/S: 19 / F [address] [place], [place] [address]vd Unit #: [id number] Loc: [place] [address] Phys: Brittnee Ramirez MD Acct: [id number] Dis Date: Status: [facility] ER PHONE #: [phone] Exam Date: 11/23/2020 0144 FAX #: [phone] Reason: No PNC, bleeding, approximately 20 weeks EXAMS: CPT CODE: [id number] US PREG AFTER 1ST TRI 70693 <Continued> seen. Cervical length is not visualized. IMPRESSION: Single live fetus in variable presentation. heart rate is 140 bpm. 2. Sonographic EGA of19 weeks 6 days and an sonographic DANY of 04/13/2021 +/- one standard deviation. SL:[JSYED-H] at 0247 Reported and signed by: Jeromy Wolfe M.D. CC: Brittnee Ramirez MD Technologist: Maryam Anderson RDMS(BR)(AB) Trnscb Date/Time: 11/23/2020 (0247)[email or web address] Orig Print D/T: S: 11/23/2020 (0250) Probe: PAGE 2 Signed Report- US PREG AFTER [id number] 02:47:00 [facility] 2000 Sex: F Name: NILA BECERRA [facility] : 2000 Age/S: 19 / F [address] [place] [address] Blvd Unit #: [id number] Loc: [place] [address] Phys: Brittnee Ramirez MD Acct: [id number] Dis Date: Status: DEP ER PHONE #: [phone] Exam Date: 11/23/2020 0144 FAX #: [phone] Reason: No PNC, bleeding, approximately 20 weeks EXAMS: CPT CODE: [id number] US PREG AFTER TRI 43743 EXAM: US, US PREG AFTER 1SRTRI: 11/23/2020, 0108 hours HISTORY: No PNC, bleeding, approximately 20 weeks TECHNIQUE: Sonographic evaluation is performed of the pelvis via transabdominal approach using grayscale, color flow and Doppler imaging when appropriate. COMPARISON: None available. FINDINGS: The examination shows a single fetus in variable presentation. Normal cardiac activity is noted at 140 per second. The amount of amniotic fluid is normal. The placenta is anterior, grade 1. There is no evidence of previa. The following measurements are obtained: 1. BPD - 439 cm : Avg = 19 weeks 2 days . 2. HEAD CIRCUMFERENCE - 1 6.78 cm : Avg = 19 weeks 3 days . 3. ABDOMINAL CIRCUMFERENCE - 15.25 cm : Avg = 20 weeks 3 days . 4. FEMUR LENGTH - 3.07 cm: Avg = 19 weeks 4 days . 5. EFW: (AC.BPD, FL.HC)- Hadlock - 322.32 g +/- 48.35 g EFW (Hadlock)-GP 41.9 % FL/AC: 20.15 FL/BPD: 69.95 FL/HC: 18.31 (16.70--19.59) HC/AC: 1.10 (1.08--1.26) The measurements correspond with an sonographic EGA of 19 weeks 6 days and an sonographic EDDof 04/13/2021 plus or minus one standard deviation. The LMP estimated gestational age is 20 weeks 0 day . DANY by LMP is 04/12/2021. There is difference of one day between LMP estimated gestational age and sonographic gestational age. Gross survey, within the limitation of gestational age, is unremarkable. Three-vessel umbilical cord, cord insertion, kidneys, bladder, stomach, extremities and 4 chamber view of heart was PAGE 1 Signed Report (CONTINUED) Name: NILA BECERRA [facility] : 2000 Age/S: 19 / F [address] [place] [address] Unit #: [id number] Loc: [place] [address] Phys: Brittnee Ramirez MD Acct: [id number] Dis Date: Status: [facility] ER PHONE #: [phone] Exam Date: 11/23/2020 014 FAX #: [phone] Reason: No PNC, bleeding, approximately 20 weeks EXAMS: CPT CODE: [id number] US PREG AFTER 1ST TRI 91587 <Continued> seen. Cervical length is not visualized. IMPR ESSION: Single live fetus in variable presentation. heart rate is 140 bpm. 2. Sonographic EGAof 19 weeks 6 days and an sonographic DANY of 04/13/2021 +/- one standard deviation. SL:[JSYED-H] at 0247 Reported and signed by: Jeromy Wolfe M.D. CC: Brittnee Ramirez MD Technologist: Maryam Anderson RDMS(BR)(AB) Trnscb Date/Time: 11/23/2020 (0247) [email or web address] Orig Print D/T: S: 11/23/2020 (0250) Probe: PAGE 2 Signed ReportURINALYSIS [id number] 01:40:00 Test Item Value Reference Range Interpretation Comments UA COLOR (test code = COLU) YELLOW YEL/STRAW UA APPEARANCE (test code = CLOUDY CLEAR A APPU) UA GLUCOSE DIPSTICK (test NEGATIVE NEGATIVE code = DGLUU) UA BILIRUBIN DIPSTICK (test NEGATIVE NEGATIVE code = BILU) UA KETONE DIPSTICK (test TRACE NEGATIVE A code = KETU) UA SPECIFIC GRAVITY (test 1.016 1.005-1.030 N code = SGU) UA BLOOD DIPSTICK (test NEGATIVE NEGATIVE code = KURTIS) UA PH DIPSTICK (test code = 7.0 5.0-7.0 N SHAINA) UA PROTEIN DIPSTICK (test NEGATIVE NEGATIVE code = PROU) UA UROBILINIOGEN DIPSTICK 0.2 mg/dL 0.2-1.0 (test code = URO) UA NITRITE DIPSTICK (test NEGATIVE NEGATIVE code = BHUPENDRA) UA LEUKOCYTE ESTERASE NEGATIVE NEGATIVE DIPSTICK (test code = LEUU) UA RBC (test code = RBCU) NONE SEEN RBC/HPF 0-3 UA WBC NO REFLEX (test code 0-3 WBC/HPF 0-3 = WBCUCL) UA BACTERIA (test code = TRACE /HPF NONE SEEN BACU) UA SQUAMOUS CELLS (test NONE SEEN /HPF NONE SEEN code = SQU) UA MUCUS (test code = MUCU) TRACE /LPF NONE SEEN UA AMORPHOUS SEDIMENT (test 1+ /HPF NONE A code = AMORU) DRUGS OF ABUSE SCREEN [id number] 01:40:00 Test Item Value Reference Range Interpretation Comments URN COCAINE (test code NEGATIVE NEGATIVE = COCAURN) URN CANNABINOIDS (test NEGATIVE NEGATIVE code = CANNABURN) URN AMPHETAMINE (test NEGATIVE NEGATIVE code = AMPHETURN) URN BARBITURATE (test NEGATIVE NEGATIVE code = BARBITURN) URN BENZODIAZEPINE NEGATIVE NEGATIVE Cut-off v alue:200 (test code = BENZOURN) ng/mL URN OPIATES (test code NEGATIVE NEGATIVE Cut-o ff value:2000 = OPIATURN) ng/mL URN PHENCYCLIDINE (PCP) NEGATIVE NEGATIVE Cuto ffs:Barbiturates (test code = PHENCURN) 200 ng/mLBenzodiaze pines 200 ng/mLTHC Cannabinoids 5 0 ng/mLOpiates(Mo rphine) 2000 ng/mLAmphe tamine 1000 ng/mLCocai ne 300 ng/mLPCP phency clidine 25 ng/mL Unconf irmed screening resul ts shouldnot be us ed for non-medical pur poses. CBC W/AUTO [id number] 01:27:00 Test Item Value Reference Range Interpretation Comments WHITE BLOOD CELL (test code = 11.0 x10 3/uL 6.0-17.0 N WBC) RED BLOOD CELL (test code = 3.39 x10 6/uL 4.2-5.4 L RBC) HEMOGLOBIN (test code = HGB) 10.1 g/dL 8.9-13.5 N HEMATOCRIT (test code = HCT) 31.7 % 31.0-41.0 N MEAN CELL VOLUME (test code = 93.5 fL 77.0-87.0 H MCV) MEAN CELL HGB (test code = MCH) 29.8 pg 25.0-29.0 H MEAN CELL HGB CONCETRATION 31.9 g/dL 33.0-37.0 L (test code = MCHC) RED CELL DISTRIBUTION WIDTH CV 13.1 % 11.5-14.5 N (test code = RDW) RED CELL DISTRIBUTION WIDTH SD 44.7 fL 37.0-54.0 N (test code = RDW-SD) PLATELET COUNT (test code = 298 x10 3/uL 150-400 N PLT) MEAN PLATELET VOLUME (test code 10.1 fL 7.0-9.0 H = MPV) NEUTROPHIL % (test code = NT%) 56.0 % 32.0-54.0 H IMMATURE GRANULOCYTE % (test 0.5 % 0.0-2.0 N code = IG%) LYMPHOCYTE % (test code = LY%) 34.6 % 28.0-48.0 N MONOCYTE % (test code = MO%) 7.8 % 3.0-15.0 N EOSINOPHIL % (test code = EO%) 0.6 % 1.0-8.0 L BASOPHIL % (test code = BA%) 0.5 % 0.0-2.0 N NUCLEATED RBC % (test code = 0.0 % 0-0 N NRBC%) NEUTROPHIL # (test code = NT#) 6.16 x10 3/uL 2.0-3.2 H IMMATURE GRANULOCYTE # (test 0.05 x10 3/uL 0.00-0.03 H code = IG#) LYMPHOCYTE # (test code = LY#) 3.81 x10 3/uL 1.0-3.8 H MONOCYTE # (test code = MO#) 0.86 x10 3/uL 0.1-0.8 H EOSINOPHIL # (test code = EO#) 0.07 x10 3/uL 0.0-0.4 N BASOPHIL # (test code = BA#) 0.06 x10 3/uL 0.0-0.2 N NUCLEATED RBC # (test code = 0.00 x10 3/uL 0.0-0.1 N NRBC#) MANUAL DIFF REQUIRED (test code NO = MDIFF) BASIC METABOLIC [id number] 02:51:00 Test Item Value Reference Range Interpretation Comments SODIUM (test code = NA) 138 mEq/L 134-147 N POTASSIUM (test code = K) 3.8 mEq/L 4.0-6.4 L CHLORIDE (test code = CL) 106 mEq/L 100-108 N CARBON DIOXIDE (test code = CO2) 23 mEq/l 21-33 N ANION GAP (test code = GAP) 13 0-20 N GLUCOSE (test code = GLU) 91 mg/dL 60-110 N BLOOD UREA NITROGEN (test code = 5 mg/dL 7-18 L BUN) CREATININE (test code = CREAT) 0.4 mg/dL 0.2-0.5 N CALCIUM (test code = CA) 9.5 mg/dL 8.0-10.5 N HCG [id number] 02:51:00 Test Item Value Reference Range Interpretation Comments HCG SERUM (test 94154.3 0 - 6 NOT P REGNANT > 6 code = HCG) SUGGESTIVE OF E TREVOR RISES TWO FOLD EVERY 2 DAYS; S UGGEST RECONFIRMING AF TER 2 DAYS. 150,000-200,[address] 10,00 0 - 50,000 2ND & 3RD TRIME STERResults in emanuel-[employer] ational Units/mL URINALYSIS [id number] 02:39:00 Test Item Value Reference Range Interpretation Comments UA COLOR (test code = COLU) YELLOW YEL/STRAW UA APPEARANCE (test code = APPU) CLEAR CLEAR UA GLUCOSE DIPSTICK (test code = NEGATIVE NEGATIVE DGLUU) UA BILIRUBIN DIPSTICK (test code NEGATIVE NEGATIVE = BILU) UA KETONE DIPSTICK (test code = 2+ NEGATIVE A KETU) UA SPECIFIC GRAVITY (test code = 1.017 1.005-1.030 N SGU) UA BLOOD DIPSTICK (test code = 2+ NEGATIVE A KURTIS) UA PH DIPSTICK (test code = SHAINA) 5.0 5.0-7.0 N UA PROTEIN DIPSTICK (test code = NEGATIVE NEGATIVE PROU) UA UROBILINIOGEN DIPSTICK (test 0.2 mg/dL 0.2-1.0 code = URO) UA NITRITE DIPSTICK (test code = NEGATIVE NEGATIVE BHUPENDRA) UA LEUKOCYTE ESTERASE DIPSTICK NEGATIVE NEGATIVE (test code = LEUU) UA RBC (test code = RBCU) 0-3 RBC/HPF 0-3 UA WBC NO REFLEX (test code = 0-3 WBC/HPF 0-3 WBCUCL) UA BACTERIA (test code = BACU) TRACE /HPF NONE SEEN UA SQUAMOUS CELLS (test code = 0-5 /HPF NONE SEEN SQU) UA MUCUS (test code = MUCU) TRACE /LPF NONE SEEN CBC W/AUTO [id number] 02:21:00 Test Item Value Reference Range Interpretation Comments WHITE BLOOD CELL (test code = 12.5 x10 3/uL 6.0-17.0 N WBC) RED BLOOD CELL (test code = 3.85 x10 6/uL 4.2-5.4 L RBC) HEMOGLOBIN (test code = HGB) 11.7 g/dL 8.9-13.5 N HEMATOCRIT (test code = HCT) 35.4 % 31.0-41.0 N MEAN CELL VOLUME (test code = 91.9 fL 77.0-87.0 H MCV) MEAN CELL HGB (test code = MCH) 30.4 pg 25.0-29.0 H MEAN CELL HGB CONCETRATION 33.1 g/dL 33.0-37.0 N (test code = MCHC) RED CELL DISTRIBUTION WIDTH CV 13.5 % 11.5-14.5 N (test code = RDW) RED CELL DISTRIBUTION WIDTH SD 45.8 fL 37.0-54.0 N (test code = RDW-SD) PLATELET COUNT (test code = 259 x10 3/uL 150-400 N PLT) MEAN PLATELET VOLUME (test code 10.3 fL 7.0-9.0 H = MPV) NEUTROPHIL % (test code = NT%) 58.4 % 32.0-54.0 H IMMATURE GRANULOCYTE % (test 0.3 % 0.0-2.0 N code = IG%) LYMPHOCYTE % (test code = LY%) 33.4 % 28.0-48.0 N MONOCYTE % (test code = MO%) 6.3 % 3.0-15.0 N EOSINOPHIL % (test code = EO%) 1.1 % 1.0-8.0 N BASOPHIL % (test code = BA%) 0.5 % 0.0-2.0 N NUCLEATED RBC % (test code = 0.0 % 0-0 N NRBC%) NEUTROPHIL # (test code = NT#) 7.28 x10 3/uL 2.0-3.2 H IMMATURE GRANULOCYTE # (test 0.04 x10 3/uL 0.00-0.03 H code = IG#) LYMPHOCYTE # (test code = LY#) 4.17 x10 3/uL 1.0-3.8 H MONOCYTE # (test code = MO#) 0.78 x10 3/uL 0.1-0.8 N EOSINOPHIL # (test code = EO#) 0.14 x10 3/uL 0.0-0.4 N BASOPHIL # (test code = BA#) 0.06 x10 3/uL 0.0-0.2 N NUCLEATED RBC # (test code = 0.00 x10 3/uL 0.0-0.1 N NRBC#) MANUAL DIFF REQUIRED (test code NO = MDIFF) - US PREG 1ST [id number] 02:19:00 [facility]: NILA BECERRA : 2000 Sex: F Name: NILA BECERRA [facility] [place] : 2000 Age/S: 19 / F [address] [place] [address] Blvd Unit #: [id number] Loc: [place] [address] Phys: Nirav Nolan MD Acct: [id number] Dis Date: Status: REG ER PHONE #: [phone] Exam Date: 10/05/2020209 FAX #: [phone] Reason: VB EXAMS: CPT CODE: [id number] US PREG 1ST TRIMTR 29316 STUDY: - DUP AB/PEL/SC/LTD, - US PREG 1ST TRIMTR 10/05/2020 1:17 AM Ordering Physician: Nirav Nolan MD Patient Name: NILA BECERRA MR: [id number] : 2000; Age: 19 years y/o Female Clinical Indication: at 12 weeks with vaginal bleeding. Comparison: None TRANSABDOMINAL PELVIC ULTRASOUND: Technique: Grayscale, color, and Doppler transabdominal imag ing of the pelvis was performed with standard technique. UTERUS: Mildly enlarged uterus measuring 12.0 x 8.0 x 9.5 cm without focal myometrial lesion. Well- formed single live intrauterine with crown-rump length measuring 6.7 cm or 13 weeks 0 days with heart rate of 154 bpm. RIGHT OVARYAND ADNEXA: General: Normal size right ovary measuring 3.4 x 1.2 x 2.2 cm containing subcentimeter follicles. Doppler: Normal low resistance arterial and venous blood flow is demonstrated. LEFT OVARY AND ADNEXA: General: Normal size left ovary measuring 2.6 x 1.3 x 1.8 cm containing subcentimeter follicles. Doppler: Normal low resistance arterial and venous blood flow is demonstrated. URINARY BLADDER: Normal for degree of distention present containing anechoic urine. FLUID: None. OTHER FINDINGS: None. IMPRESSION: Normal single live intrauterine at 13 weeks 0 days. PAGE 1 Signed Report (CONTINUED) Name: NILA BECERRA [facility] Madeline Co[place] : 2000 Age/S: 19 / [address] [place], [place] [address]vd Unit #: [id number] Loc: [place] [address] Phys: Nirav Nolan MD Acct: [id number] Dis Date: Status: REG ER PHONE #: [phone] Exam Date: 10/05/2020209 FAX #: [phone] Reason: VB EXAMS:CPT CODE: [id number] US PREG 1ST TRIMTR 43028 <Continued> SL: TPAINTER-H at 218 Reported and signed by: Abdias Avila M.D. CC: Malu Tolentino MD; Nirav Nolan MD Technologist: Maryam Anderson RDMS(BR)(AB) Trnscb Date/Time: 10/05/2020 (218) [email or web address] Orig Print D/T: S: 10/05/2020 (022) Probe: PAGE 2 Signed Report- DUP AB/PEL/SC/[id number] 02:19:00 [facility] MADELINE HAMSHIREName: NILA BECERRA : 2000 Sex: F Name: NILA BECERRA [facility] Madeline Co[place]man : 2000 Age/S: 19 / F [address] [place], [place] [address]vd Unit #: [id number] Loc: [place] [address] Phys: Nirav Nolan MD Acct: [id number] Dis Date: Status: REG ER PHONE #: [phone] Exam Date: 10/05/2020209 FAX #: [phone] Reason: see US PREG 1st TRIMTREXAMS: CPT CODE: [id number] DUP AB/PEL/SC/LTD 96843 STUDY: - DUP AB/PEL/SC/LTD, - US PREG 1ST TRIMTR10/05/2020 1:17 AM Ordering Physician: Nirav Nolan MD Patient Name: NILA BECERRA MR: [id number] : 2000; Age: 19 years y/o Female Clinical Indication: at 12 weeks with vaginal bleeding. Comparison: None TRANSABDOMINAL PELVIC ULTRASOUND: Technique: Grayscale, color, and Doppler transabdominal imaging of the pelvis was performed with standard technique. UTERUS: Mildly enlarged uterus measuring 12.0 x 8.0 x 9.5 cm without focal myometrial lesion. Well-formed single live intrauterine with crown- rump length measuring 6.7 cm or 13 weeks 0 days with heart rate of 154 bpm. RIGHT OVARY AND ADNEXA: General: Normal size right ovary measuring 3.4 x 1.2 x 2.2 cm containing subcentimeter follicles. Doppler: Normal low resistance arterial and venous blood flow is demonstrated. LEFT OVARY AND ADNEXA: General: Normal size left ovary measuring 2.6 x 1.3 x 1.8 cm containing subcentimeter follicles. Doppler: Normal low resistance arterial and venous blood flow is demonstrated. URINARY BLADDER: Normal for degree of distention present containing anechoic urine. FLUID: None. OTHER FINDINGS: None. IMPRESSION: Normal single live intrauterine at 13 weeks 0 days. PAGE 1 Signed Report (CONTINUED) Name: NILA BECERRA [facility] : 2000 Age/S: 19 / F [address] [place] [address] Blvd Unit #: [id number] Loc: [place] [address] Phys: Nirav Nolan MD Acct: [id number] Dis Date: Status: REG ER PHONE #: [phone] Exam Date: 10/05/2020209 FAX #: [phone] Reason: see US PREG 1st TRIMTR EXAMS: CPT CODE: [id number] DUP AB/PEL/SC/LTD 52889 <Continued> SL: TPAINTER-H at 0219 Reported and signed by: Abdias Avila M.D. CC: Malu Tolentino MD; Nirav Nolan MD Technologist: Maryam Anderson RDMS(BR)(AB) Trnscb Date/Time: 10/05/2020 (218) [email or web address] Orig Print D/T: S: 10/05/2020 (221) Probe: PAGE 2 Signed Report- DUP AB/PEL/SC/[id number] 22:07:00[facility] 2000 Sex: F Name: NILA BECERRA [facility] : 2000 Age/S: 19 / F [address] [place] [address] Bl Unit #: [id number] Loc: [place] [address] Phys: Cathy Bruce Acct: [id number] Dis Date: Status: REG ERPHONE #: [phone] Exam Date: 08/22/20202199 FAX #: [phone] Reason: see US PREG 1st TRIMTREXAMS: CPT CODE: [id number] DUP AB/PEL/SC/LTD 44280 PROCEDURE: FIRST TRIMESTER ULTRASOUND INDICATION: 6 weeks with cramping. Abdominal and back pain. COMPARISON: None. TRANSABDOMINAL SCAN: The uterus measures 9.1 x 5.1 x 5.9 cm containing a gestational sac with mean sac diameter of 2cm correlating with 6 weeks 6 days gestational age. Yolk sac and pole identified within with av erage crown-rump length of 4.9 mm correlating with 6 weeks 1 day gestational age. heart tones measure 120 bpm. Right ovary appears normal measuring 3.3 x 2.4 x 2.1 cm with arterial waveforms documented. Left ovary appears normal measuring 2.2 x 1.7 x 1.6 m with arterial waveforms documented. No adnexal mass visualized. No free pelvic fluid. TRANSVAGINAL SCAN: Not performed. IMPRESSION: Single viable intrauterine of estimated sonographic gestational age of 6 weeks 4 days. SL: SGPatiH at 2207 Reported and signed by: Judah Izquierdo M.D. CC: Malu Tolentino MD; Cathy MELO Technologist: Maryam Anderson RDMS( BR)(AB) Trnscb Date/Time: 08/22/2020 (2206) [email or web address] Orig Print D/T: S: 08/22/2020 (2209) Probe: PAGE 1 Signed Report- US PREG 1ST [id number] 22:07:00[facility] 2000 Sex: F Name: NILA BECERRA [facility] : 2000 Age/S: 19 / F [address] [place] [address] Blvd Unit #: [id number] Loc: [place] [address] Phys: Cathy Bruce Acct: [id number] Dis Date: Status: REG ER PHONE #: [phone] Exam Date: 08/22/20202199 FAX #: [phone] Reason: 6w , cramping EXAMS: CPT CODE: [id number] US PREG 1ST TRIMTR 12479 PROCEDURE: FIRST TRIMESTER ULTRASOUND INDICATION: 6 weeks with cramping. Abdominal and back pain. COMPARISON: None. TRANSABDOMINALSCAN: The uterus measures 9.1 x 5.1 x 5.9 cm containing a gestational sac with mean sac diameter of 2 cm correlating with 6 weeks 6 days gestational age. Yolk sac and pole identified within with a verage crown-rump length of 4.9 mm correlating with 6 weeks 1 day gestational age. heart tonesmeasure 120 bpm. Right ovary appears normal measuring 3.3 x 2.4 x 2.1 cm with arterial waveforms documented. Left ovary appears normal measuring 2.2 x 1.7 x 1.6 m with arterial waveforms documented. Noadnexal mass visualized. No free pelvic fluid. TRANSVAGINAL SCAN: Not performed. IMPRESSION: Singleviable intrauterine of estimated sonographic gestational age of 6 weeks 4 days. SL: SG-H at 2207 Reported and signed by:Judah Izquierdo M.D. CC: Malu Tolentino MD; Cathy MELO Technologist: JOCELIN Singh S(BR)(AB) Trnscb Date/Time: 08/22/2020 (2206) [email or web address] Orig Print D/T: S: 08/22/2020 (2209) Probe:PAGE 1 Signed ReportURINALYSIS [id number] 21:50:00 Test Item Value Reference Range Interpretation Comments UA COLOR (test code = COLU) STRAW YEL/STRAW UA APPEARANCE (test code = CLEAR CLEAR APPU) UA GLUCOSE DIPSTICK (test code NEGATIVE NEGATIVE = DGLUU) UA BILIRUBIN DIPSTICK (test NEGATIVE NEGATIVE code = BILU) UA KETONE DIPSTICK (test code NEGATIVE NEGATIVE = KETU) UA SPECIFIC GRAVITY (test code 1.008 1.005-1.030 N = SGU) UA BLOOD DIPSTICK (test code = NEGATIVE NEGATIVE KURTIS) UA PH DIPSTICK (test code = 6.0 5.0-7.0 N SHAINA) UA PROTEIN DIPSTICK (test code NEGATIVE NEGATIVE = PROU) UA UROBILINIOGEN DIPSTICK 0.2 mg/dL 0.2-1.0 (test code = URO) UA NITRITE DIPSTICK (test code NEGATIVE NEGATIVE = BHUPENDRA) UA LEUKOCYTE ESTERASE DIPSTICK NEGATIVE NEGATIVE (test code = LEUU) UA RBC (test code = RBCU) 0-3 RBC/HPF 0-3 UA WBC NO REFLEX (test code = 0-3 WBC/HPF 0-3 WBCUCL) UA BACTERIA (test code = BACU) NONE SEEN /HPF NONE SEEN UA SQUAMOUS CELLS (test code = 0-5 /HPF NONE SEEN SQU) UA MUCUS (test code = MUCU) TRACE /LPF NONE SEEN BASIC METABOLIC [id number] 21:48:00 Test Item Value Reference Range Interpretation Comments SODIUM (test code = NA) 137 mEq/L 134-147 N POTASSIUM (test code = K) 3.4 mEq/L 4.0-6.4 L CHLORIDE (test code = CL) 104 mEq/L 100-108 N CARBON DIOXIDE (test code = CO2) 25 mEq/l 21-33 N ANION GAP (test code = GAP) 12 0-20 N GLUCOSE (test code = GLU) 95 mg/dL 60-110 N BLOOD UREA NITROGEN (test code = 6 mg/dL 7-18 L BUN) CREATININE (test code = CREAT) 0.6 mg/dL 0.2-0.5 H CALCIUM (test code = CA) 9.9 mg/dL 8.0-10.5 N Is patient ? YHOW MANY WEEKS? 6 WEEKSHCG [id number] 21:48:00 Test Item Value Reference Range Interpretation Comments HCG SERUM (test 75475.6 0 - 6 NOT P REGNANT > 6 code = HCG) SUGGESTIVE OF E TREVOR RISES TWO FOLD EVERY 2 DAYS; S UGGEST RECONFIRMING AF TER 2 DAYS. 150,000-200,[address]IME[address] 10,00 0 - 50,000 2ND & 3RD TRIME STERResults in emanuel-[employer] ational Units/mL Is patient ? YHOW MANY WEEKS? 6 WEEKSUR HCG [id number] 21:47:00 Test Item Value Reference Range Interpretation Comments UR HCG QUAL (test code = HCGQLU) POSITIVE NEGATIVE CBC W/AUTO [id number] 21:33:00 Test Item Value Reference Range Interpretation Comments WHITE BLOOD CELL (test code = 10.5 x10 3/uL 6.0-17.0 N WBC) RED BLOOD CELL (test code = 4.29 x10 6/uL 4.2-5.4 N RBC) HEMOGLOBIN (test code = HGB) 12.6 g/dL 8.9-13.5 N HEMATOCRIT (test code = HCT) 38.5 % 31.0-41.0 N MEAN CELL VOLUME (test code = 89.7 fL 77.0-87.0 H MCV) MEAN CELL HGB (test code = MCH) 29.4 pg 25.0-29.0 H MEAN CELL HGB CONCETRATION 32.7 g/dL 33.0-37.0 L (test code = MCHC) RED CELL DISTRIBUTION WIDTH CV 12.1 % 11.5-14.5 N (test code = RDW) RED CELL DISTRIBUTION WIDTH SD 39.8 fL 37.0-54.0 N (test code = RDW-SD) PLATELET COUNT (test code = 325 x10 3/uL 150-400 N PLT) MEAN PLATELET VOLUME (test code 10.7 fL 7.0-9.0 H = MPV) NEUTROPHIL % (test code = NT%) 61.9 % 32.0-54.0 H IMMATURE GRANULOCYTE % (test 0.3 % 0.0-2.0 N code = IG%) LYMPHOCYTE % (test code = LY%) 30.6 % 28.0-48.0 N MONOCYTE % (test code = MO%) 5.9 % 3.0-15.0 N EOSINOPHIL % (test code = EO%) 0.6 % 1.0-8.0 L BASOPHIL % (test code = BA%) 0.7 % 0.0-2.0 N NUCLEATED RBC % (test code = 0.0 % 0-0 N NRBC%) NEUTROPHIL # (test code = NT#) 6.51 x10 3/uL 2.0-3.2 H IMMATURE GRANULOCYTE # (test 0.03 x10 3/uL 0.00-0.03 N code = IG#) LYMPHOCYTE # (test code = LY#) 3.22 x10 3/uL 1.0-3.8 N MONOCYTE # (test code = MO#) 0.62 x10 3/uL 0.1-0.8 N EOSINOPHIL # (test code = EO#) 0.06 x10 3/uL 0.0-0.4 N BASOPHIL # (test code = BA#) 0.07 x10 3/uL 0.0-0.2 N NUCLEATED RBC # (test code = 0.00 x10 3/uL 0.0-0.1 N NRBC#) MANUAL DIFF REQUIRED (test code NO = MDIFF) CBC W/AUTO [id number] 21:31:00 Test Item Value Reference Range Interpretation Comments WHITE BLOOD CELL (test code = x10 3/uL 6.0-17.0 WBC) RED BLOOD CELL (test code = RBC) x10 6/uL 4.2-5.4 HEMOGLOBIN (test code = HGB) 12.6 g/dL 8.9-13.5 N HEMATOCRIT (test code = HCT) 38.5 % 31.0-41.0 N MEAN CELL VOLUME (test code = fL 77.0-87.0 MCV) MEAN CELL HGB (test code = MCH) pg 25.0-29.0 MEAN CELL HGB CONCETRATION (test g/dL 33.0-37.0 code = MCHC) RED CELL DISTRIBUTION WIDTH CV % 11.5-14.5 (test code = RDW) PLATELET COUNT (test code = PLT) 325 x10 3/uL 150-400 N NEUTROPHIL % (test code = NT%) % 32.0-54.0 LYMPHOCYTE % (test code = LY%) % 28.0-48.0 NEUTROPHIL # (test code = NT#) x10 3/uL 2.0-3.2 LYMPHOCYTE # (test code = LY#) x10 3/uL 1.0-3.8 MANUAL DIFF REQUIRED (test code = MDIFF) Novel Coronavirus [id number] 14:50:00 Test Item Value Reference Range Interpretation Comments Novel Coronavirus 2018 Negative Negative Perfo rmed by: Vignesh Melara nCoV (test code = Laboratory 8562 Nidia COVID19) [facility], [address] [place], [place] [address] Phone: CLIA#: [id number] Does patient have the clinical criteria consistent with COVID-19? YIs the patient going to be discharged home? Y- CT NECK [id number]/[id number] 02:35:00 Name: NILA BECERRA [facility] [place] : 2000 Age/S: 19 / F [address] [place] [address] Unit #:[id number] Loc: [place] [address] Phys: Amilcar Pablo BENDER HAND Acct: [id number] Dis Date: Status: REG ER PHONE #: [phone] Exam Date: 02/16/2020 0134 FAX #: [phone] Reason: R lymphadenopathy, throat pain, fever EXAMS: CPT CODE: [id number] CT NECK W/CONTRAST 40441 EXAM: CT, CT NECK W/CONTRAST: 02/16/2020, 0132 hours Clinical Indication: Right lymphadenopathy. Fever. Throat pain. Comparison: CT cervical spine 06/09/2018. Technique: CT of the neck is performed with a multidetector CT. Coronal and sagittal reconstructions were obtained. CT imaging was performed with exposure control parameters to reduce radiation dose. All CT scans at this location are performed using dose optimization techniquesas appropriate to perform exam including the following: * Automated exposure control * Adjustment ofthe mA and /or kV according to patient size (this includes techniques or standardized protocols for targeted exams where dose is matched to indication/reason for exam; extremities or head) * Use of iterative reconstruction technique CONTRAST: 100 cc of IV Isovue contrast material was used for the exam. CT Radiation Dose DLP 247.33 mGy-cm FINDINGS: SOFT TISSUES: There are no neck masses noted. There are no fluid collections or abscess. SUPRAHYOID NECK: The oropharynx, oral cavity, parapharyngeal space, and retropharyngeal space are normal. INFRAHYOID NECK: The valleculae and piriform sinuses are normal. The larynx, hypopharynx, epiglottis and supraglottis are normal. LYMPH NODES: There are large neck lymph node. Largest lymph node on the right measures 1.7 x 1.2 x 2.4 cm. No bulky adenopathy seen.Asymmetric enlargement of the right aspect of the lingual tonsils. . The nasopharyngeal adenoids andtonsillar pillar regions appear unremarkable. SALIVARY GLANDS: The submandibular and parotid glands are unremarkable. PARANASAL SINUSES : The paranasal sinuses are clear without soft tissue thickening or air-fluid levels. ORBITS: The visualized orbits are unremarkable. VASCULAR STRUCTURES: The jugularveins and carotid vessels are PAGE 1 Signed Report (CONTINUED) Name: NILA BECERRA [facility] Madeline LakeDOB: 2000 Age/S: 19 / F [address] [place] [address] Unit #: [id number] Loc: [place] [address] Phys: Amilcar Pablo BENDER HAND Acct: [id number] Dis Date: Status: REG ER PHONE #: [phone] Exam Date: 02/16/2020 0134 FAX #: [phone] Reason: R lymphadenopathy, throat pain, fever EXAMS: CPT CODE: [id number] CT NECK W/CONTRAST 62661 <Continued> unremarkable. OSSEOUS STRUCTURES: There are no fractures or dislocations. There are no lucencies at the bases of the mandibular teeth to suggest abscess. There are no radiopaque foreign bodies noted. THYROID GLANDS: The thyroid lobes are symmetric and there are no lesions. VISUALIZED LUNG APICES: There are no pulmonary masses or consolidation. IMPRESSION: 1. Enlarged neck lymph nodes bilaterally. Differential consideration would include inflammatory/infectious or metastatic adenopathy. 2. Enlarged right aspect of lingual tonsils. Although this may be due to infectious/inflammatory process, follow-up to resolution recommended. SL: POONAM Worthington at 0235 Reported and signed by: Jeromy Wolfe M.D. CC:Malu Tolentino MD; Amilcar Pablo NP Technologist:Josué Granado RT(R)(CT); Natasha CTDI: DLP: Trnscb Date/Time: 02/16/2020 (0235) [email or web address] Orig Print D/T: S: 02/16/2020 (023) PAGE 2 Signed ReportCOMPREHENSIVE METABOLIC [id number] 00:12:00 Test Item Value Reference Range Interpretation Comments SODIUM (test code = NA) 134 mEq/L 134-147 N POTASSIUM (test code = K) 3.7 mEq/L 4.0-6.5 L CHLORIDE (test code = CL) 102 mEq/L 100-108 N CARBON DIOXIDE (test code = CO2) 26 mEq/L 21-33 N ANION GAP (test code = GAP) 10 0-20 N GLUCOSE (test code = GLU) 94 mg/dL 60-110 N BLOOD UREA NITROGEN (test code = 10 mg/dL 7-18 N BUN) CREATININE (test code = CREAT) 0.6 mg/dL 0.6-1.3 N TOTAL PROTEIN (test code = PROT) 7.7 g/dL 6.4-8.2 N ALBUMIN (test code = ALB) 4.00 g/dL 3.4-5.0 N CALCIUM (test code = CA) 9.1 mg/dL 8.0-10.5 N BILIRUBIN TOTAL (test code = BILT) 0.4 MG/DL <1.5 N SGOT/AST (test code = AST) 5 IUnit/L 15-37 L SGPT/ALT (test code = ALT) 18 IUnit/L 15-65 N ALKALINE PHOSPHATASE TOTAL (test 70 IUnit/L 60-350 N code = ALKP) MONO [id number] 00:09:00 Test Item Value Reference Range Interpretation Comments MONO SCREEN (test code = MONO) NEGATIVE NEGATIVE URINALYSIS [id number] 00:02:00 Test Item Value Reference Range Interpretation Comments UA COLOR (test code = COLU) YELLOW YEL/STRAW UA APPEARANCE (test code = APPU) CLEAR CLEAR UA GLUCOSE DIPSTICK (test code = NEGATIVE NEGATIVE DGLUU) UA BILIRUBIN DIPSTICK (test code NEGATIVE NEGATIVE = BILU) UA KETONE DIPSTICK (test code = NEGATIVE NEGATIVE KETU) UA SPECIFIC GRAVITY (test code = 1.015 1.005-1.030 N SGU) UA BLOOD DIPSTICK (test code = 2+ NEGATIVE A KURTIS) UA PH DIPSTICK (test code = HSAINA) 6.0 5.0-7.0 N UA PROTEIN DIPSTICK (test code = NEGATIVE NEGATIVE PROU) UA UROBILINIOGEN DIPSTICK (test 0.2 mg/dL 0.2-1.0 code = URO) UA NITRITE DIPSTICK (test code = NEGATIVE NEGATIVE BHUPENDRA) UA LEUKOCYTE ESTERASE DIPSTICK NEGATIVE NEGATIVE (test code = LEUU) UA RBC (test code = RBCU) 0-3 RBC/HPF 0-3 UA WBC NO REFLEX (test code = 0-3 WBC/HPF 0-3 WBCUCL) UA BACTERIA (test code = BACU) TRACE /HPF NONE SEEN UA SQUAMOUS CELLS (test code = 0-5 /HPF NONE SEEN SQU) UA MUCUS (test code = MUCU) 1+ /LPF NONE SEEN COMPREHENSIVE METABOLIC [id number] 00:02:00 Test Item Value Reference Range Interpretation Comments SODIUM (test code = NA) 134 mEq/L 134-147 N POTASSIUM (test code = K) 3.7 mEq/L 4.0-6.5 L CHLORIDE (test code = CL) 102 mEq/L 100-108 N CARBON DIOXIDE (test code = CO2) 26 mEq/L 21-33 N ANION GAP (test code = GAP) 10 0-20 N GLUCOSE (test code = GLU) 94 mg/dL 60-110 N BLOOD UREA NITROGEN (test code = 10 mg/dL 7-18 N BUN) GLOMERULAR FILTRATION RATE (test code = GFR) CREATININE (test code = CREAT) mg/dL 0.6-1.3 TOTAL PROTEIN (test code = PROT) g/dL 6.4-8.2 ALBUMIN (test code = ALB) 4.00 g/dL 3.4-5.0 N CALCIUM (test code = CA) 9.1 mg/dL 8.0-10.5 N BILIRUBIN TOTAL (test code = BILT) MG/DL <1.5 SGOT/AST (test code = AST) IUnit/L 15-37 SGPT/ALT (test code = ALT) IUnit/L 15-65 ALKALINE PHOSPHATASE TOTAL (test IUnit/L 60-350 code = ALKP) CBC W/AUTO [id number] 23:59:00 Test Item Value Reference Range Interpretation Comments WHITE BLOOD CELL (test code = 12.19 x10 3/uL 4.5-13.0 N WBC) RED BLOOD CELL (test code = 4.24 x10 6/uL 4.2-5.4 N RBC) HEMOGLOBIN (test code = HGB) 12.1 g/dL 11.1-15.7 N HEMATOCRIT (test code = HCT) 37.9 % 34.0-44.0 N MEAN CELL VOLUME (test code = 89.4 fL 77.0-87.0 H MCV) MEAN CELL HGB (test code = 28.5 pg 26.0-30.0 N MCH) MEAN CELL HGB CONCETRATION 31.9 g/dL 32.0-36.0 L (test code = MCHC) RED CELL DISTRIBUTION WIDTH CV 14.1 % 11.5-14.5 N (test code = RDW) RED CELL DISTRIBUTION WIDTH SD 45.7 fL 37.0-54.0 N (test code = RDW-SD) PLATELET COUNT (test code = 220 x10 3/uL 150-400 N PLT) MEAN PLATELET VOLUME (test 10.8 fL 7.0-9.0 H code = MPV) NEUTROPHIL % (test code = NT%) 75.2 % 32.0-54.0 H IMMATURE GRANULOCYTE % (test 0.5 % 0.0-2.0 N code = IG%) LYMPHOCYTE % (test code = LY%) 13.9 % 28.0-48.0 L MONOCYTE % (test code = MO%) 10.0 % 3.0-15.0 N EOSINOPHIL % (test code = EO%) 0.0 % 1.0-8.0 L BASOPHIL % (test code = BA%) 0.4 % 0.0-2.0 N NUCLEATED RBC % (test code = 0.0 % 0-0 N NRBC%) NEUTROPHIL # (test code = NT#) 9.16 x10 3/uL 2.0-3.2 H IMMATURE GRANULOCYTE # (test 0.06 x10 3/uL 0.00-0.03 H code = IG#) LYMPHOCYTE # (test code = LY#) 1.70 x10 3/uL 1.0-3.8 N MONOCYTE # (test code = MO#) 1.22 x10 3/uL 0.1-0.8 H EOSINOPHIL # (test code = EO#) 0.00 x10 3/uL 0.0-0.4 N BASOPHIL # (test code = BA#) 0.05 x10 3/uL 0.0-0.2 N NUCLEATED RBC # (test code = 0.00 x10 3/uL 0.0-0.1 N NRBC#) MANUAL DIFF REQUIRED (test NO code = MDIFF) UR HCG [id number] 23:56:00 Test Item Value Reference Range Interpretation Comments UR HCG QUAL (test code = HCGQLU) NEGATIVE NEGATIVE
[2022-03-18 15:21] LABS: Urine Blood Negative (Negative); Urine Glucose Negative (Negative); Urine Protein Negative (Negative); Urine pH 5.5 (5.0-7.0)
--- NOTE | 2022-03-18 15:31 | ER ---
Nurse's Notes [facility] Name: Hilaria Rogers Age: 21 yrs Sex: Female : 2000 Arrival Date: 03/18/2022 Time: 15:02 Bed 12 Private MD: Diagnosis: Less than 8 weeks gestation of Presentation: 03/18 15:12 Chief complaint: Chief complaint: Patient states: "I am late on my period. LMP was last jd3 01/22/22.". Coronavirus screen: At this time, the client does not indicate any symptoms associated with coronavirus-19. Ebola Screen: No symptoms or risks identified at this time. Initial Sepsis Screen: Does the patient meet any 2 criteria? No. Patient's initial sepsis screen is negative. Does the patient have a suspected source of infection? No. Patient's initial sepsis screen is negative. Risk Assessment: Do you want to hurt yourself or someone else? Patient reports no desire to harm self or others. Onset of symptoms was March 18, 2022. 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 - Social history:: Smoking status: Reported history of juuling and/or vaping. Screenin:16 Abuse screen: Denies threats or abuse. Nutritional screening: No deficits noted. jd3 Tuberculosis screening: No symptoms or risk factors identified. Fall Risk Ambulatory Aid- None/Bed Rest/Nurse Assist (0 pts). Gait- Normal/Bed Rest/Wheelchair (0 pts) Mental Status- Oriented to own ability (0 pts). Total Roman Fall Scale indicates No Risk (0-24 pts). Assessment: 15:15 General: Appears in no apparent distress. comfortable, Behavior is calm, cooperative, jd3 appropriate for age. Pain: Denies pain. Neuro: Atkins Agitation-Sedation Scale (RASS): 0 - Alert and Calm Level of Consciousness is awake, alert, obeys commands, Oriented to person, place, time, situation. Cardiovascular: Denies chest pain, Capillary refill < 3 seconds Patient's skin is warm and dry. Respiratory: Airway is patent Respiratory effort is even, unlabored, Respiratory pattern is regular, symmetrical. GI: No signs and/or symptoms were reported involving the gastrointestinal system. : No signs and/or symptoms were reported regarding the genitourinary system. EENT: No signs and/or symptoms were reported regarding the EENT system. Derm: No signs and/or symptoms reported regarding the dermatologic system. Musculoskeletal: No signs and/or symptoms reported regarding the musculoskeletal system. Vital Signs: 15:14 BP 119 / 71; Pulse 80; Resp 17 S; Temp 98.9(O); Pulse Ox 100% on R/A; Weight 66.22 kg jd3 (R); Height 5 ft. 2 in. (157.48 cm) (R); Pain 0/10; 15:14 Body Mass Index 26.70 (66.22 kg, 157.48 cm) jd3 ED Course: 15:02 Patient arrived in ED. mr 15:03 Mitra Matamoros [facility]-C [facility] kb 15:03 Shiraz Tidwell DO is Attending Physician. kb 15:12 Ranjeet Plaza, KELSEY is Primary Nurse. jd3 15:14 Triage completed. jd3 15:15 Arm band placed on. jd3 15:16 Patient has correct armband on for positive identification. Bed in low position. Call jd3 light in reach. Side rails up X 1. Adult w/ patient. Pulse ox on. NIBP on. 15:25 No provider procedures requiring assistance completed. Patient did not have IV access jd3 during this emergency room visit. Administered Medications: No medications were administered Medication: 15:16 VIS not applicable for this client. jd3 Outcome: 15:27 Discharged to home ambulatory, with family. jd3 15:27 Condition: stable 15:27 Discharge instructions given to patient, Instructed on discharge instructions, follow up and referral plans. Demonstrated understanding of instructions, follow-up care. 15:30 Discharge ordered by . kb 15:34 Patient left the ED. jd3 Signatures: Mitra Matamoros, STRUCTURAL ENGINEERING PROJECT MANAGER-C STRUCTURAL ENGINEERING PROJECT MANAGER-Luzma Arreola Jonathon, RN RN jd3
--- NOTE | 2022-03-18 15:31 | EDPHYS ---
Physician Documentation [facility] Name: Hilaria Rogers Age: 21 yrs Sex: Female : 2000 Arrival Date: 03/18/2022 Time: 15:02 Bed 12 Private MD: ED Physician Shiraz Tidwell HPI: 03/18 16:32 This 21 yrs old Female presents to ER via Ambulatory with complaints of test. kb 16:32 The patient presents with a desire for a test. Onset: The symptoms/episode kb began/occurred today. Modifying factors: The symptoms are alleviated by nothing, the symptoms are aggravated by nothing. Associated signs and symptoms: The patient has no apparent associated signs or symptoms. Severity of symptoms: At their worst the symptoms were very mild, in the emergency department the symptoms are unchanged. The patient is sexually active. The patient's method of control includes nothing. The patient has experienced a previous episode. The patient has not recently seen a physician. Pt reports her period is late so she wanted to get a test done. Denies abd pain/cramping, vaginal bleeding/discharge. 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 - Social history:: Smoking status: Reported history of juuling and/or vaping. ROS: 16:32 Constitutional: Negative for fever, chills, and weight loss. kb 16:32 All other systems are negative. Exam: 16:32 Constitutional: This is a well developed, well nourished patient who is awake, alert, kb and in no acute distress. Head/Face: Normocephalic, atraumatic. ENT: Moist Mucous membranes Cardiovascular: Regular rate and rhythm with a normal S1 and S2. No gallops, murmurs, or rubs. No pulse deficits. Respiratory: Respirations even and unlabored. No increased work of breathing. Talking in full sentences Abdomen/GI: Soft, non-tender. No distention Skin: Warm, dry with normal turgor. Normal color. MS/ Extremity: Pulses equal, no cyanosis. Neurovascular intact. Full, normal range of motion. Neuro: Awake and alert, GCS 15, oriented to person, place, time, and situation. Moves all extremities. Normal gait. Psych: Awake, alert, with orientation to person, place and time. Behavior, mood, and affect are within normal limits. Vital Signs: 15:14 BP 119 / 71; Pulse 80; Resp 17 S; Temp 98.9(O); Pulse Ox 100% on R/A; Weight 66.22 kg jd3 (R); Height 5 ft. 2 in. (157.48 cm) (R); Pain 0/10; 15:14 Body Mass Index 26.70 (66.22 kg, 157.48 cm) jd3 MDM: 15:08 Patient medically screened. kb 16:29 Data reviewed: vital signs, nurses notes. Data interpreted: Pulse oximetry: on room air kb is 100 %. Interpretation: normal. 16:34 Counseling: I had a detailed discussion with the patient and/or guardian regarding: the kb historical points, exam findings, and any diagnostic results supporting the discharge/admit diagnosis, lab results, the need for outpatient follow up, an OB/Gyne specialist, to return to the emergency department if symptoms worsen or persist or if there are any questions or concerns that arise at home. 03/18 15:22 Order name: Urine Dipstick-Ancillary; Complete Time: 15:29 EDMS 03/18 15:26 Order name: Urine --Ancillary (enter results) bd 03/18 15:08 Order name: Urine Dipstick-Ancillary (obtain specimen); Complete Time: 15:25 kb 03/18 15:08 Order name: Urine Test (obtain specimen); Complete Time: 15:25 kb Administered Medications: No medications were administered Disposition: 17:23 Co-signature as Attending Physician, Shiraz Tidwell DO I agree with the assessment and ms3 plan of care. Disposition Summary: 03/18/22 15:30 Discharge Ordered Location: Home kb Condition: Stable kb Diagnosis - Less than 8 weeks gestation of kb Followup: kb - With: Emergency Department - When: As needed - Reason: Worsening of condition Followup: kb - With: Private Physician - When: 2 - 3 days - Reason: Recheck today's complaints, Continuance of care, Re-evaluation by your physician Discharge Instructions: - Discharge Summary Sheet kb - First Trimester of , [id number] kb Forms: - Medication Reconciliation Form kb - Thank You Letter kb - Antibiotic Education kb - Prescription Opioid Use kb Signatures: Dispatcher [employer] EDMitra Field, MARKETING PROGRAMS SPECIALIST-C [facility], RN RN jd3 Shiraz Tidwell DO DO ms3
[2022-03-18 16:12] VITALS: BP 119/71; TEMP 98.9; O2SAT 100
== END 2022-03-18 15:34 | disposition home or self-care (01) ==
LOC: ER 15:01
DX: Z32.01 Encounter for pregnancy test, result positive (principal); Z3A.01 Less than 8 weeks gestation of pregnancy
CPT/HCPCS: 81003; 81025

== ENCOUNTER 2022-03-30 21:37 | Emergency (ER) | payer OTHER ==
--- OUTSIDE RECORDS SUMMARY | 2022-03-30 21:41 | XMS REPORT | Continuity of Care Document ---
:2000 Author Organization [facility] t Address [address] [place] [address] Care Team Providers Name Role Phone Ki Durán MD Primary Care Physician Brittnee Ramirez Attending Clinician Unavailable Teresa PICKERING, Antonia Garzon Attending Clinician Ghanshyam Bragg Attending Clinician Unavailable Kishor Bishop Attending Clinician Unavailable Luis Burciaga Attending Clinician Unavailable Effie Solitario Attending Clinician Unavailable Dottie Chavez Attending Clinician Unavailable Miladis MIRELES, Nathalia Cagle Attending Clinician Ricarda Khan MD Attending Clinician Olivier CHAVEZ, Aneta Esparza Attending Clinician Pearl Chavez Attending Clinician Unavailable Aide COLE, Tashia Rae Attending Clinician Unavailable Berhane CHAVEZ, Lily Hummel Attending Clinician Maryellen PICKERING, Lydia Hilton Attending Clinician Doctor Unassigned, [place] Attending Clinician Unavailable Amauri RUSS, Madhavi Delcid [...] Policy Number Effective Date Expiration Date S ource Problems Condition Condition Condition Status Onset Resolution Last Treating Co mments Source Name Details Category Date Date Treatment Clinician Date Anxiety Anxiety Disease Active [facility] Depression Depression Disease Active U nivers [facility] Allergies, Adverse Reactions, Alerts Allergy Allergy Status Severity Reaction(s) Onset Inactive Treating Comm ents Source Name Type Date Date Clinician No Known DA Active U [facility] Allergie 11-23 Clear s 00:00: [place] 00 [facility] No Known DA Active U [facility] Allergie 11-23 Clear s 00:00: [place] 00 [facility] MALIC DA Active SV TONGUE [facility] ACID SWELLING, 12-24 Clear THROAT 00:00: [place] CLOSING [facility] Malic Drug Active Swelling 2018-0 Univers Acid Allergy 6-08 ity of 00:00: [place] 00 [facility] Sour Propensi Active Anaphylaxis 2017- Sour Uni vers [place] ty to 4-30 flavoring ity of adverse 00:00: on all [place] [facility] [place] Social History Social Habit Start Date Stop Date Quantity Comments Source Exposure to 2022-03-05 2022-03-15 Not sure [facility] SARS-CoV-2 00:00:00 17:14:00 [facility] (event) [place] Alcohol intake 2022-02-25 2022-02-25 Ex-drinker [facility] 00:00:00 00:00:00 (finding) [facility] Tobacco use and 2022-02-25 2022-02-25 Smokeless tobacco Un iversity of exposure 00:00:00 00:00:00 non-user [facility] Sex Assigned At [birth year] Universit y of 00:00:00 00:00:00 [facility] Smoking Status Start Date Stop Date Source Never smoked tobacco [facility] Medications Ordered Filled Start Stop Current Ordering Indication Dosage Frequency Signature Comments Components Source Medication Medication Date Date Medication? Clinician (SIG) Name Name FLUTICASONE 2020-07 Yes [id number] SPRAY 1 Univers PROPIONATE 2-02 SPRAY INTO ity of 50 00:00: EACH [place] mcg/actuati 00 NOSTRIL Medic al on nasal EVERY DAY Branch spray EPINEPHrine 2019-07 Yes [id number] INJECT 0.3 Univers 0.3 mg/0.3 1-30 ML BY ity of mL 00:00: INTRAMUSCU [place] injection 00 LAR ROUTE Medic al ONCE NOW [place] FOR 1 DOSE. Immunizations Ordered Immunization Filled Immunization Date Status Commen ts Source Name Name Meningococcal 2019-02-23 Completed University of Polysaccharide 00:00:00 [facility] thomas (groups A, C, Y and Branc h W-135) conjugate vaccine (MCV4P) DTP 2005-01-21 Completed [facility] 00:00:00 [facility] HIB 3 Dose Schedule 2005-01-21 Completed Unive rsity of 00:00:00 [facility] HEPATITIS A 2005-01-21 Completed University of 00:00:00 [facility] Pneumococcal 7 2005-01-21 Completed [facility] Conjugate, PCV7 00:00:00 [facility] ical (Prevnar7) Branch MMR 2003-12-25 Completed University of 00:00:00 [facility] Polio (IPV/OPV) 2003-12-25 Completed Universit y of 00:00:00 [facility] Pneumococcal 7 2003-12-25 Completed University Conjugate, PCV7 00:00:00 [facility] ical (Prevnar7) Branch DTP 2003-06-19 Completed University 00:00:00 [facility] HIB 3 Dose Schedule 2003-06-19 Completed Unive rsity of 00:00:00 [facility] Hep B, Adol or Pedi 2003-06-19 Completed Unive rsity of Dosage 00:00:00 [facility] Polio (IPV/OPV) 2003-06-19 Completed Universit y of 00:00:00 [facility] Hep B, Adol or Pedi 2000 Completed Unive rsity of Dosage 00:00:00 [facility] Procedures Procedure Date / Time Performed Performing Clinician David marlene [id number] 2021-03-26 00:00:00 MAXBA [facility] [id number] 2021-03-26 00:00:00 MAXBA [facility] Encounters Start End Encounter Admission Attending Care Care Encounter Source Date/Time Date/Time Type Type Clinicians Facility Department ID 2020-11-23 Inpatient Ashley, HCACL HCACL [id number] [facility] 00:57:29 Brittnee 52 [facility] 2020-10-05 Inpatient HCACL HCACL [id number] [facility] 01:43:54 61 [facility] 2020-08-22 Inpatient HCACL KAELA [id number] [facility] 20:18:00 05 [facility] 2020-02-15 Inpatient HCACL KAELA [id number] [facility] 22:49:00 35 [facility] 2022-03-20 2022-03-20 Telephone MARISOL Moore [id number] Univers 00:00:00 00:00:00 Antonia Garzon PEDIATRIC 350.1.13.10 ity [place] [id number] [place] [address] [facility] 2022-03-06 2022-03-06 Emergency EM Oyebadejo, HCACL AERS [id number] [facility] 15:06:00 16:12:00 Oluwadolapo 45 Cl [facility] 2021-11-11 2021-11-11 Emergency EM Bishop, HCACL AERS [id number] [facility] 00:16:00 00:55:00 Kishor 36 [facility] 2021-08-08 2021-08-08 Emergency EM Oyebadejo, HCACL AERS [id number] [facility] 22:06:00 22:30:00 Oluwadolapo 00 Cl [facility] 2021-03-25 2021-03-28 Inpatient EL Maximos, HCACL OBPP [id number] [facility] 14:56:00 15:32:00 Luis 40 [facility] 2021-03-12 2021-03-13 Emergency EM Billy HCACL OLGA [id number] [facility] 21:07:00 01:05:00 Puckly, 24 Clear [facility] 2021-03-01 2021-03-01 Emergency EM Maximos, HCACL OLGA [id number] [facility] 05:33:00 09:00:00 Luis 85 [facility] 2021-02-17 2021-02-17 Emergency EM Billy HCACL OLGA [id number] [facility] 15:17:00 16:47:00 Puckly, 82 Clear [facility] 2021-02-12 2021-02-12 Emergency EM Billy HCACL OLGA [id number] [facility] 19:14:00 22:29:00 Puckly, 18 Clear [facility] 2021-01-29 2021-01-29 Emergency EM Bhalani, HCACL OLGA [id number] [facility] 02:30:00 03:50:00 Dottie 33 [facility] 2021-01-13 2021-01-13 Emergency Nathalia Red[place] [facility] [id number] 01:18:00 02:30:00 Ricarda Khan 350.1.13.10 Yamileth 4.2.7.2.686 [place] [id number] 2021-01-11 2021-01-11 Urgent Grow Marisol 1.2.840.114 [id number] 17:51:24 18:25:45 Care Aneta Pediatric 350.1.13.10 Vilma s and 4.2.7.2.686 Adult [id number] [facility] 2020-12-25 2020-12-25 Emergency EM Scott, HCACL OLGA [id number] [facility] 15:08:00 18:26:00 Pearl 03 [facility] 2020-11-23 2020-11-23 Emergency EM Ashley, HCACL OLGA [id number] [facility] 00:02:00 02:58:00 Brittnee 52 [facility] 2020-11-01 2020-11-01 Letter NICOLAS Noble [id number] 00:00:00 00:00:00 (Out) Tashia SHELTON 350.1.13.10 [facility] 4.2.7.2.686 [id number] 2020-10-30 2020-10-31 Emergency [facility] [id number] 22:11:00 00:46:00 Lily Bauman 350.1.13.10 Paton 4.2.7.2.686 [place] [id number] 084 2020-10-26 2020-10-26 Urgent Marisol Aguayo 1.2.840.114 [id number] 18:33:25 19:03:11 Care Aneta Pediatric 350.1.13.10 Vilma s and 4.2.7.2.686 Adult [id number] Primary [facility] 2020-09-18 2020-09-19 Emergency [facility], [facility] [id number] 23:47:00 01:47:00 Lydia Bauman 350.1.13.10 [place] 4.2.7.2.686 [place] [id number] 084 2020-09-18 2020-09-18 Gabriella VALENZUELA 1.2.840.114 [id number] 00:00:00 00:00:00 Only Unassigned, NIKITA 350.1.13.10 [facility] 4.2.7.2.686 [id number] 2020-08-22 2020-08-22 Office Madhavi Baugh 1.2.840.114 [id number] 15:52:31 16:12:31 Visit Ali Pediatric 350.1.13.10 s and 4.2.7.2.686 Adult [id number] Primary [facility] Results Test Description Test Time Test Comments Results Result [facility] e Comments - XR ANKLE 3 + V 2022-03-06 RT 00:00:00 [facility] 2000 Sex: F FAX: Emily Mckoy MD [phone] [place]: [place] St: PRE FAX: Romeo Bragg Name: NILA ROGERS FSED : 2000 Age/S: 21/F [address] [facility] Unit #: [id number] Loc: [place] [address] Phys: Ghanshyam Bragg MD Acct: [id number] Dis Date: Status: PRE ER PHONE #: Exam Date: 03/06/2022 1600 FAX #: Reason: R ANKLE PAIN AFTER FALL EXAMS: CPT CODE: [id number] XR ANKLE 3 + V RT 37429 PROCEDURE INFORMATION: Exam: XR Right Ankle Exam [...] assessment. IMPRESSION: No fracture or dislocation at 1604 Reported and signed by: Emeka Pickering M.D. CC: Emily Hurtado MD; Ghanshyam Bragg MD Technologist: RT Valerie(R)(CT) Trnscrd Date/Time/By: 03/06/2022 (6164) : By: Kristian Orig Print D/T: S: 03/06/2022 (7032) PAGE 1 Signed Report - XR FOOT 3 + V RT 2022-03-06 00:00:00 [facility] : 2000 Sex: F FAX: Emily Mckoy MD [phone] [place]: [place] St: PRE FAX: Romeo Bragg Name: NILA ROGERS Marisol FSED : 2000 Age/S: 21/F [address] [facility] Unit #: [id number] Loc: [place] [address] Phys: Ghanshyam Bragg MD Acct: [id number] Dis Date: Status: PRE ER PHONE #: Exam Date: 03/06/2022 1556 FAX #: Reason: r foot injury EXAMS: CPT CODE: [id number] XR FOOT 3 + V RT 30660 PROCEDURE INFORMATION: Exam: XR Right Foot Exam [...] assessment. IMPRESSION: No fractures or dislocation at 2789 Reported and signed by: Emeka Pickering M.D. CC: Emily Hurtado MD; Ghanshyam Bragg MD Technologist: Katerina Rosas RT(R)(CT) Trnpard Date/Time/By: 03/06/2022 (1824) : By: Kristian Orig Print D/T: S: 03/06/2022 (2620) PAGE 1 Signed Report URINE HCG TRIAGE (ER ONLY) 2021-11-11 08:40:00 Test Item Value Reference Range Interpretation Comme nts URINE HCG TRIAGE (ER ONLY) (test code = HCGTRIAGE) NEGATIVE Neg ative Urine Test Result: NEGATIVEAre internal controls (presence of a control line & clear background) OK? YLot # of HCG Test Kit: [id number] Date of Kit: 02/15/23Test Performed by: Carlo Perfomed on: 11/11/21COMMENTS: NEGATIVEUA DIPSTICK [id number] 00:46:00 Test Item Value Reference Range Interpretation Comments UA GLUCOSE DIPSTIC POC NEGATIVE NEGATIVE (test code = GLUUP) UA BILIRUBIN DIPSTICK NEGATIVE NEGATIVE (test code = BILU) UA KETONE DIPSTICK POC NEGATIVE NEGATIVE (test code = KETUP) UA SPECIFIC GRAVITY (test 1.010 1.005-1.030 N code = SGU) UA BLOOD DIPSTIC POC NEGATIVE NEGATIVE Perform ed by (test code = BLUP) certified regasification plant operator at [facility] UA PH DIPSTIC POC (test 7 5.0-7.0 N code = PHUP) UA PROTEIN DIPSTICK POC NEGATIVE NEGATIVE (test code = DPROUP) UA UROBILINIOGEN QUAL NORMAL 0.2-1.0 (test code = UROQL) UA NITRITE DIPSTICK POC NEGATIVE Negative (test code = NITUP) UA LEUKOCYTE ESTERASE W Negative NEGATIVE REFLEX (test code = LEUUR) SURGICAL PATH [id number] 13:13:00 Test Item Value Reference Range Interpretation Comments SURGICAL PATH SPECIMENS (test code = S) RUN DATE: 03/28/21 [facility] PAGE 1 RUN TIME: 1313 Specimen Inquiry RUN USER: INTERFACE ARTEMIO ENT: NILA ROGERS LOC: MAIKEL U #: [id number] AGE/SX: 20/F [facility]: Luis Burciaga MD : [birth year] BED: 1 DIS: STATUS: ADM IN TLOC: SPEC #: [id number] RECD: 03/27/21 STATUS: GLENN MARGUERITE #: [id number] SLOAN: 03/26/21- SUBM DR: Luis Burciaga MD ENTERED: 03/27/21 SP TYPE: SURG SPEC OTHR DR: ORDERED: GM LEVEL 5 CODES: [id number] - PLACENTA, NOS PROCEDURES: GM LEVEL 5 [...] 03/28/21 1313 END OF REPORT CBC W/AUTO [id number] 07:03:00 Test Item Value Reference Range Interpretation [...] code NO = MDIFF) CORD VENOUS BLOOD [id number] 18:41:00 Test Item Value Reference Range Interpretation [...] = 17 % O2SCV) CORD ARTERIAL BLOOD [id number] 18:40:00 Test Item Value Reference Range Interpretation [...] O2S/C) 25 % 72-77 L RAPID PLASMA [id number] 10:40:00 Test Item Value Reference Range Interpretation Comments RAPID PLASMA REAGIN (test code = NONREACTIVE NONREACTIVE RPR) AG HEPATITIS B [id number] 10:40:00 Test Item Value Reference Range Interpretation Comments AG HEPATITIS B SURFACE NON REACTIVE INDEX NonReactive (test code = HBSAG) AB HIV 1 10:40:00 Test Item Value Reference Range Interpretation Comments AB HIV 1 2 (test code = WEG10CG) Nonreactive Nonreactive COVID 19 Asymptomatic IH [id number] 20:20:00 Test Item Value Reference Range Interpretation [...] moderate, high or waivedcomplexit y tests. URINALYSIS [id number] 18:48:00 Test Item Value Reference Range Interpretation [...] MUCU) TRACE /LPF NONE SEEN RAPID PLASMA [id number] 18:11:00 Test Item Value Reference Range Interpretation Comments RAPID PLASMA REAGIN (test code = RPR) NONREACTIVE AG HEPATITIS B [id number] 18:11:00 Test Item Value Reference Range Interpretation Comments AG HEPATITIS B SURFACE NON REACTIVE INDEX NonReactive (test code = HBSAG) AB HIV 1 18:11:00 Test Item Value Reference Range Interpretation Comments AB HIV 1 2 (test code = VBE35YZ) Nonreactive Nonreactive COMPREHENSIVE METABOLIC [id number] 17:45:00 Test Item Value Reference Range Interpretation [...] N TOTAL (test code = ALKP) URIC [id number] 17:45:00 Test Item Value Reference Range Interpretation Comments URIC ACID (test code = URIC) 4.0 mg/dL 2.6-7.2 N LACTIC DEHYDROGENASE(LDH)2021-03-25 17:45:00 Test Item Value Reference Range Interpretation Comments LACTIC DEHYDROGENASE(LDH) (test 225 IUnits/L 84-246 N code = LDH) CBC W/AUTO [id number] 17:24:00 Test Item Value Reference Range Interpretation [...] REQUIRED (test code = MDIFF) CBC W/AUTO [id number] 17:24:00 Test Item Value Reference Range Interpretation [...] code NO = MDIFF) - US BIOPHYS [id number] [facility]00[facility] 2000 Sex: F Name: NILA ROGERS [facility] : 2000 Age/S: 20 / F [address] [place] [address] Unit #: [id number] Loc: [place] [address] Phys: Effie Solitario MD Acct: [id number] Dis Date: Status: REG ER PHONE #: [phone] Exam Date: 03/12/202141 FAX #: [phone] Reason: Possible SROM, please evaluate ISMA EXAMS: CPT CODE: [id number] US BIOPHYS PROF [id number] PROCEDURE INFORMATION: Exam: US Biophysical Profile With Non-Stress Test Exam date and time: 03/12/2021 11:26 PM Age: 20 years old Clinical indication: Other: Srom; ; Additional info: Possible srom, please evaluate isma TECHNIQUE: Imaging protocol: biophysical profile with non-stress test. COMPARISON: US FETALBIOPHYS PROF 03/01/2021 7:32 AM FINDINGS: EGA: 35 weeks, 4 days. Presentation: Cephalic. heart rate: 134 bpm Placenta location: The placenta is anterior, non-previa without signs of retroplacental hemorrhage. Grade: 3 S/D ratio: 1.8 ISMA: 8.2 cm breathing movements: 2 Gross body movements:2 tone: 2 Amniotic fluid volume: 2 IMPRESSION: Biophysical profile score of 8 out of 8. at 0057 Reported and signed by: Reinaldo Will M.D. CC: Technologist: Yuki Ray RDMS()(OB) Trnscb Date/Time: 03/13/2021 (0 057) Sabine Orig Print D/T: S: 03/13/2021 (0057) Probe: PAGE 1 Signed Report AMNISURE (ROM) [id number] 22:05:00 Test Item Value Reference Range Interpretation Comments AMNISURE (ROM) TEST (test code = NEGATIVE NEGATIVE AMNI) URINALYSIS [id number] 21:48:00 Test Item Value Reference Range Interpretation [...] = MUCU) TRACE /LPF NONE SEEN URINALYSIS [id number] 07:00:00 Test Item Value Reference Range Interpretation [...] TRACE /LPF NONE SEEN - US BIOPHYS [id number] 00:00:00 [facility]: NILA ROGERS : 2000 Sex: F Name: NILA ROGERS [facility] [place] : 2000 Age/S: 20 / F [address] [place] [address] Blvd Unit #: [id number] Loc: [place] [address] Phys: Effie Solitario MD Acct: [id number] Dis Date: Status: REG ER PHONE #: [phone] Exam Date: 03/01/20218 FAX #: [phone] Reason: decreased movements EXAMS: CPT CODE: [id number] US BIOPHYS PROF [id number] PROCEDURE INFORMATION: Exam: US Biophysical Profile With Non-Stress Test Exam date and time: 03/01/2021 7:32 AM Age: 20 years old Clinical indication: Other: Decreased movement; ; Additional info: Decreased movements TECHNIQUE: Imaging protocol: biophysical profile with non-stress test. COMPARISON: US B IOPHYS PROF 02/12/2021 8:58 PM FINDINGS: heart rate: heart rate 136 bpm. Placenta: Anterior placenta. BIOPHYSICAL PROFILE: Breathin/2 Gross body movements: 2/2 tone: 2/2 Qualitative amniotic fluid: 2/2 Other findings: Cephalic position. SD ratio 2.6, 2.4, 3.1. IMPRESSION: Biophysical profile score is 8/8. at 0810 Reported and signed by: Nilton Frederick M.D. CC: Technologist: Vilma Robles RDMS(AB)Trnscb Date/Time: 03/01/2021 (809) [email or web address] Orig Print D/T: S: 03/01/2021 (0811) Probe: PAGE 1 Signed Report AMNISURE (ROM) [id number] 16:16:00 Test Item Value Reference Range Interpretation Comments AMNISURE (ROM) TEST (test code = NEGATIVE NEGATIVE AMNI) [id number] 16:16:00 Test Item Value Reference Range Interpretation Comments FIBRONECTIN (test code = FFN) NEGATIVE NEGATIVE [id number] 20:50:00 Test Item Value Reference Range Interpretation Comments FIBRONECTIN (test code = FFN) NEGATIVE NEGATIVE URINALYSIS [id number] 20:32:00 Test Item Value Reference Range Interpretation [...] TRACE /LPF NONE SEEN - US BIOPHYS [id number] 00:00:00 [facility]: 2000 Sex: F Name: NILA ROGERS [facility] : 2000 Age/S: 20 / F [address] [place] [address] Unit #: [id number] Loc: [place] [address] Phys: Effie Solitario MD Acct: [id number] Dis Date: Status: REG ER PHONE #: [phone] Exam Date: 02/12/20212122 FAX #: [phone] Reason: Decreased movements EXAMS: CPT CODE: [id number] US BIOPHYS PROF [id number] PROCEDURE INFORMATION: Exam: US FetalBiophysical Profile With Non-Stress Test Exam date and time: 02/12/2021 8:58 PM Age: 20 years old Clinical indication: Other: Decreased fm; ; Additional info: Decreased movements TECHNIQUE: Imaging protocol: biophysical profile with non-stress test. COMPARISON: US LTD 12/25/2020 4:51 PM FINDINGS: heart rate: [...] Breathin/2 Gross body movements: 2/2 tone: 2/2 Marlon litative amniotic fluid: 2/2 Reactive heart rate: 2/2 [...] cm. This is within normal limits. 4. Theuterine cervix is closed and the cervical length is 3.5 cm. PAGE 1 Signed Report (CONTINUED) Name: NILA ROGERS [facility] Madeline Coffman : 2000 Age/S: 20 / F [address] [place] [address] Blvd Unit #: [id number] Loc: [place] [address] Phys: fEfie Solitario MD Acct: [id number] Dis Date: Status: REG ER PHONE #: [phone] Exam Date: 02/12/20212122 FAX #: [phone] Reason: Decreased movements EXAMS: CPT CODE: [id number] BIOPHYS PROF [id number] <Continued> at 2121 Reported and signed by: Geovanny Hughes D.O. CC: Technologist: Yuki Ray RDMS(AB)(OB) Trnscb Date/Time: 02/12/2021 (2121) [email or web address] Orig Print D/T: S: 02/12/2021 (2148) Probe: PAGE 2 Signed ReportURINALYSIS [id number] 03:25:00 Test Item Value Reference Range Interpretation [...] MUCU) TRACE /LPF NONE SEEN - US [id number] 17:34:00 [facility] 2000 Sex: F Name: NILA ROGERS [facility] : 2000 Age/S: 20 / F [address] [place] [address] Unit #: [id number] Loc: [place] [address] Phys: Pearl Chavez DO Acct: [id number] Dis Date: Status: REG ERPHONE #: [phone] Exam Date: 12/25/2020 1726 FAX #: [phone] Reason: h/o low ISMA, unsure if PROM, translabial cervic EXAMS: CPT CODE: [id number] US LTD 73723 LIMITED ULTRASOUND INDICATION: with history of low amniotic fluid index. Unsure premature rupture of membranes. Translabial cervical length. Lower abdominal pain. Back pain. COMPARISON: 11/23/2020 ultrasound ULTRASOUND FINDINGS: Limited transabdominal ultrasound was performed. Gestation: Single: Yes Cardiac Motion: Yes (BPM):132-145 Presentation: Cephalic Placenta Location: Anterior Placenta Grade: 1 Placenta Previa: No Uterus/Cervix/Adnexa: The cervix measures 3.3 cm in length. No anatomical survey was performed. Clinical: LMP= ? MA= 24 wks 4 days Ultrasound: MA= 24 wks 6 days MA MEAN BPD: 25 wks 2 days 6.2 cm HC/AC: 1.14 (1.04-1.22) HC: 24 wks 6 days 22.8 cm FL/AC: 22.42 (20%-24%) AC: 24 wks 5 days 20 cm FL/BPD: 72.16 (71%- 87%) FL: 24 wks 6 days 4.5 cm HUM: 24 wks 4 days4 cm EFW: 730 +/- 109 gm LMP%: 48.5% ISMA (after 24 weeks): 13.6 cm S/D Ratio (after 24 weeks): 2.6 IMPRESSION: Single viable intrauterine of estimated sonographic gestational age of 24 weeks 6 days. SL: SG-H PAGE 1 Signed Report (CONTINUED) Name: NILA ROGERS [facility] : 2000 Age/S: 20 / F [address] [place] [address] Blvd Unit #: [id number] Loc: [place] [address] Phys: Pearl Chavez DO Acct: [id number] Dis Date: Status: REG ER PHONE #: [phone] Exam Date: 12/25/2020 172 FAX #: [phone] Reason: h/o low ISMA, unsure if PROM, translabial cervic EXAMS: CPT CODE: [id number] LTD 12556 <Continued> at 1734 Reported and signed by: Judah Izquierdo M.D. CC: Pearl Chavez DO Technologist: Merna Figueroa RDMS() Trnscb Date/Time: 12/25/2020 (173) [email or web address] Orig Print D/T: S: 12/25/2020 (1737) Probe: PAGE 2 Signed ReportAMNISURE (ROM) [id number] 17:14:00 Test Item Value Reference Range Interpretation Comments AMNISURE (ROM) TEST (test code = NEGATIVE NEGATIVE AMNI) URINALYSIS [id number] 17:10:00 Test Item Value Reference Range Interpretation [...] A = AMORU) DRUGS OF ABUSE SCREEN [id number] 17:07:00 Test Item Value Reference Range Interpretation [...] non-medical pur poses. - US PREG AFTER [id number] 02:47:00 [facility] 2000 Sex: F Name: NILA ROGERS [facility] : 2000 Age/S: 19 / [address] [place] [address] Blvd Unit #: [id number] Loc: [place] [address] Phys: Brittnee Ramirez MD Acct: [id number] Dis Date: Status: REG ERPHONE #: [phone] Exam Date: 11/23/2020143 FAX #: [phone] Reason: No PNC, bleeding, approximately 20 weeks EXAMS: CPT CODE: [id number] US PREG AFTER TRI 10914 EXAM: US, US PREG AFTER 1SR TRI: [...] 2 days . 2. HEAD CIRCUMFERENCE - 16. 78 cm : Avg = 19 weeks 3 [...] PAGE 1 Signed Report (CONTINUED) Name: NILA ROGERS [facility] : 2000 Age/S: 19 / F [address] [place] [address] Unit #: [id number] Loc: [place] [address] Phys: Brittnee Vela MD Acct: [id number] Dis Date: Status: REG ER PHONE #: [phone] Exam Date: 11/23/2020 0144 FAX #: [phone] Reason: No PNC, bleeding, approximately 20 weeks EXAMS: CPT CODE: [id number] US PREG AFTER 1ST TRI 59618 <Continued> seen. Cervical length is not visualized. IMPRESSION: Single live fetus in variable presentation. heart rate is 140 bpm. 2. Sonographic EGA of 19 weeks 6 days and an sonographic DANY of 04/13/2021 +/- one standard deviation. SL:[JSYED-H] at 0247 Reported and signed by: Jeromy Wolfe M.D.CC: Brittnee Ramirez MD Technologist: Maryam Anderson RDMS(BR)(AB) Trnscb Date/Time: 11/23/2020 (246)[email or web address] Orig Print D/T: S: 11/23/2020 (0250) Probe: PAGE 2 Signed Report- US PREG AFTER [id number] 02:47:00 [facility] 2000 Sex: F Name: DELMER ROGERSLLE [facility] : 2000 Age/S: 19 / F [address] [place] [address] Blvd Unit #: [id number] Loc: [place] [address] Phys: Brittnee Ramirez MD Acct: [id number] Dis Date: Status: DEP ERPHONE #: [phone] Exam Date: 11/23/2020 0144 FAX #: [phone] Reason: No PNC, bleeding, approximately 20 weeks EXAMS: CPT CODE: [id number] US PREG AFTER TRI 20056 EXAM: US, US PREG AFTER 1SR TRI: [...] There is no evidence of previa. The followingfetal measurements are obtained: 1. BPD - 439 cm : Avg = 19 weeks 2 days . 2. HEAD CIRCUMFERENCE - 16 .78 cm : Avg = 19 weeks 3 days . 3. ABDOMINAL CIRCUMFERENCE - 15.25 cm : Avg = 20 weeks 3 days . 4. FEMUR LENGTH - 3.07 cm: Avg = 19 weeks 4 days . 5. EFW: (AC.BPD, FL.HC)- [place] - 322.32 g +/- 48.35g EFW ([place])-GP 41.9 % FL/AC: 20.15 FL/BPD: 69.95 FL/HC: 18.31 (16.70--19.59) HC/AC: 1.10 (1.08--1.26) The measurements correspond with an sonographic EGA of 19 weeks 6 days and an sonographic DANY of 04/13/2021 plus or minus one standard deviation. [...] PAGE 1 Signed Report (CONTINUED) Name: NILA ROGERS [facility] : 2000 Age/S: 19 / F [address] [place] [address] Unit #: [id number] Loc: [place] [address] Phys: Brittnee Ramirez MD Acct: [id number] Dis Date: Status: [facility] ER PHONE #: [phone] Exam Date: 11/23/2020 0144 FAX #: [phone] Reason: No PNC, bleeding, approximately 20 weeks EXAMS: CPT CODE: [id number] US PREG AFTER 1ST TRI 24844 <Continued> seen. Cervical length is not visualized. IMPRESSION: Single live fetus in variable presentation. heart rate is 140 bpm. 2. Sonographic EGA of 19 weeks 6 days and an sonographic DANY of 04/13/2021 +/- one standard deviation. SL:[JSYED-H] at 0247 Reported and signed by: Jeromy Wolfe M.D. CC: Brittnee Ramirez MD Technologist: Maryam Anderson RDMS(GOYO)(AB) Trnscb Date/Time: 11/23/2020 (246) [email or web address] Orig Print D/T: S: 11/23/2020 (025) Probe: PAGE 2 Signed ReportURINALYSIS [id number] 01:40:00 Test Item Value Reference Range Interpretation [...] code = AMORU) DRUGS OF ABUSE SCREEN [id number] 01:40:00 Test Item Value Reference Range Interpretation [...] ed for non-medical pur poses. CBC W/AUTO [id number] 01:27:00 Test Item Value Reference Range Interpretation [...] (test code NO = MDIFF) BASIC METABOLIC [id number] 02:51:00 Test Item Value Reference Range Interpretation [...] = CA) 9.5 mg/dL 8.0-10.5 N HCG [id number] 02:51:00 Test Item Value Reference Range Interpretation Comments HCG SERUM (test 00829.3 0 - 6 NOT P REGNANT > 6 code = HCG) SUGGESTIVE OF E TREVOR RISES TWO FOLD EVERY 2 DAYS; S UGGEST RECONFIRMING AF TER 2 DAYS. 150,000-200,[address] TRIME[address] 10,00 0 - 50,000 2ND & 3RD TRIME STERResults in [facility] ational Units/mL URINALYSIS [id number] 02:39:00 Test Item Value Reference Range Interpretation [...] MUCU) TRACE /LPF NONE SEEN CBC W/AUTO [id number] 02:21:00 Test Item Value Reference Range Interpretation [...] REQUIRED (test code NO = MDIFF) - PREG 1ST [id number] 02:19:00 [facility] MADELINE COFFMANName: NILA ROGERS : 2000 Sex: F Name: NILA ROGERS [facility] : 2000 Age/S: 19 / F [address] [place] [address] Blvd Unit #: [id number] Loc: [place] [address] Phys: Nirav Nolan MD Acct: [id number] Dis Date: Status: REG ERPHONE #: [phone] Exam Date: 10/05/2020209 FAX #: [phone] Reason: VB EXAMS: CPT CODE: [id number] US PREG 1ST TRIMTR 40563 STUDY: - DUP AB/PEL/SC/LTD, - US PREG 1ST TRIMTR 10/05/2020 1:17 AM Ordering Physician: Nirav Nolan MD Patient Name: NILA ROGERS MR: [id number] : 2000; Age: 19 years y/o Female Clinical Indication: at 12 weeks with vaginal bleeding. Comparison:None TRANSABDOMINAL PELVIC ULTRASOUND: Technique: Grayscale, color, and Doppler transabdominal imaging of the pelvis was performed with standard technique. UTERUS: Mildly enlarged uterus measuring 12.0 x 8.0 x 9.5 cm without focal myometrial lesion. Well-formed single live intrauterine withcrown-rump length measuring 6.7 cm or 13 weeks [...] and venous blood flow is demonstrated. URINARY BLADDER:Normal for degree of distention present containing anechoic urine. FLUID: None. OTHER FINDINGS: None. IMPRESSION: Normal single live intrauterine at 13 weeks 0 days. PAGE 1 Signed Report (CONTINUED) Name: NILA ROGERS [facility] Madeline Coffman : 2000 Age/S: 19 / F [address] [place] [address] BlvdUnit #: [id number] Loc: [place] [address] Phys: Nirav Nolan MD Acct: [id number] Dis Date: Status: REG ER PHONE #: [phone] Exam Date: 10/05/2020209 FAX #: [phone] Reason: VB EXAMS: CPT CODE: [id number] US PREG 1ST TRIMTR 49220 <Continued> SL: TPAINTER-H at 218 Reported and signed by: Abdias Avila M.D. CC: Malu Tolentino MD; Nirav Nolan MD Technologist: Maryam Anderson RDMS(BR)(AB) Trnscb Date/Time: 10/05/2020 (218) [email or web address] Orig Print D/T: S: 10/05/2020 (221) Probe: PAGE 2 Signed Report- DUP AB/PEL/SC/[id number] 02:19:00 [facility] MADELINE COFFMANName: NILA ROGERS : 2000 Sex: F Name: NILA ROGERS [facility] Madeline Coffman : 2000 Age/S: 19 / F [address] [place] [address] Blvd Unit #: [id number] Loc: [place] [address] Phys: Nirav Nolan MD Acct: [id number] Dis Date: Status: REG ERPHONE #: [phone] Exam Date: 10/05/2020209 FAX #: [phone] Reason: see US PREG 1st TRIMTR EXAMS: CPT CODE: [id number] DUP AB/PEL/SC/LTD 74375 STUDY: - DUP AB/PEL/SC/LTD, - US PREG 1ST TRIMTR 10/05/2020 1:17 AM Ordering Physician: Nirav Nolna MD Patient Name: NILA ROGERS MR: [id number] : 2000; Age: 19 years y/o Female Clinical Indication: at 12 weeks with vaginal bleeding. Comparison: None TRANSABDOMINAL PELVIC ULTRASOUND: Technique: Grayscale, color, and Doppler tr ansabdominal imaging of the pelvis was performed with standard technique. UTERUS: Mildly enlarged uterus measuring 12.0 x 8.0 x 9.5 cm without focal myometrial lesion. Well-formed single live intrauterine with crown- rump length measuring 6.7 cm or 13 weeks 0 days with heart rate of 154bpm. RIGHT OVARY AND ADNEXA: General: Normal size right ovary measuring 3.4 x 1.2 x 2.2 cm containing subcentimeter follicles. Doppler: Normal low resistance arterial and venous blood flow is demonstrated. LEFT OVARY AND ADNEXA: General: Normal size left ovary measuring 2.6 x 1.3 x 1.8 cm containingsubcentimeter follicles. Doppler: Normal low resistance arterial and venous blood flow is demonstrated. URINARY BLADDER: Normal for degree of distention present containing anechoic urine. FLUID: None. OTHER FINDINGS: None. IMPRESSION: Normal single live intrauterine at 13 weeks 0 days. PAGE 1 Signed Report (CONTINUED) Name: NILA ROGERS [facility] Madeline Coffman : 2000 Age/S: 19 / F [address] [place] [address] Unit #: [id number] Loc: [place] [address] Phys: Nirav Nolan MD Acct: [id number] Dis Date: Status: REG ER PHONE #: [phone] Exam Date: 10/05/2020209 FAX #: [phone] Reason: see US PREG 1st TRIMTR EXAMS: CPT CODE: [id number] DUP AB/PEL/SC/LTD 45582 <Continued> SL: TPAINTER-H at 0219 Reported and signed by: Abdias Avila M.D. CC: Malu Tolentino MD; Nirav Nolan MD Technologist: Maryam Anderson RDMS(BR)(AB) Trnscb Date/Time: 10/05/2020 (218) [email or web address] Orig Print D/T: S: 10/05/2020 (221) Probe: PAGE 2 Signed Report- DUP AB/PEL/SC/[id number] 22:07:00 [facility] 2000 Sex: F Name: NILA ROGERS [facility] : 2000 Age/S: 19 / F [address] [place] [address] Bl Unit #: [id number] Loc: [place] [address] Phys: Cathy Bruce Acct: [id number] Dis Date: Status: REG ERPHONE #: [phone] Exam Date: 08/22/20202199 FAX #: [phone] Reason: see US PREG 1st TRIMTR EXAMS: CPT CODE: [id number] DUP AB/PEL/SC/LTD 32540 PROCEDURE: FIRST TRIMESTER ULTRASOUND INDICATION: 6 weeks [...] 6 weeks 4 days. SL: SG-H at 2206 Reported and signed by: Judah Izquierdo M.D. CC: Malu Tolentino MD; Cathy MELO Technologist: Maryam Anderson RDMS (BR)(AB) Trnscb Date/Time: 08/22/2020 (2206) [email or web address] Orig Print D/T: S: 08/22/2020 (2209) Probe: PAGE 1 Signed Report- US PREG 1ST [id number] [facility]:07[facility] 2000 Sex: F Name: NILA ROGERS [facility] : 2000 Age/S: 19 / F [address] [place] [address] Blvd Unit #: [id number] Loc: [place] [address] Phys: Cathy Bruce Acct: [id number] Dis Date: Status: REG ER PHONE #: [phone] Exam Date: 08/22/20202199 FAX #: [phone] Reason: 6w , cramping EXAMS: CPT CODE: [id number] US PREG 1ST TRIMTR 97506 PROCEDURE: FIRST TRIMESTER ULTRASOUND INDICATION: 6 weeks with cramping. Abdominal and back pain. COMPARISON: None. TRANSABDOMINAL SCAN: The uterus measures 9.1 x 5.1 x 5.9 cm containing a gestational sac with mean sac diameter of 2 cm correlating with 6 weeks 6 days gestational age. Yolk sac and pole identified within with average crown-rump length of 4.9 mm correlating with [...] 6 weeks 4 days. SL: SG-H at 2206 Reported and signed by: Judah Izquierdo M.D. CC: Malu Tolentino MD; Cathy MELO Technologist: Maryam Anderson RDMS(GOYO)(AB) Trnscb Date/Time: 08/22/2020 (2206) [email or web address] Orig Print D/T: S: 08/22/2020 (2209) Probe: PAGE 1 Signed ReportURINALYSIS [id number] 21:50:00 Test Item Value Reference Range Interpretation [...] MUCU) TRACE /LPF NONE SEEN BASIC METABOLIC [id number] 21:48:00 Test Item Value Reference Range Interpretation [...] patient ? YHOW MANY WEEKS? 6 WEEKSHCG [id number] 21:48:00 Test Item Value Reference Range Interpretation Comments HCG SERUM (test 80088.6 0 - 6 NOT P REGNANT > 6 code = HCG) SUGGESTIVE OF E TREVOR RISES TWO FOLD EVERY 2 DAYS; S UGGEST RECONFIRMING AF TER 2 DAYS. 150,000-200,[address]IME[address] 10,00 0 - 50,000 2ND & 3RD TRIME STERResults in [facility] ational Units/mL Is patient ? YHOW MANY WEEKS? 6 WEEKSUR HCG [id number] 21:47:00 Test Item Value Reference Range Interpretation Comments UR HCG QUAL (test code = HCGQLU) POSITIVE NEGATIVE CBC W/AUTO [id number] 21:33:00 Test Item Value Reference Range Interpretation [...] (test code NO = MDIFF) CBC W/AUTO [id number] 21:31:00 Test Item Value Reference Range Interpretation [...] REQUIRED (test code = MDIFF) Novel Coronavirus [id number] 14:50:00 Test Item Value Reference Range Interpretation Comments Novel Coronavirus 2018 Negative Negative Perfo rmed by: Vignesh Melara nCoV (test code = Laboratory [address] ANGULOID19) Replaced By [facility], [address] [place], [place] [address] Phone: CLIA#: [id number] Does patient have the clinical criteria consistent with COVID-19? YIs the patient going to be discharged home? Y- CT NECK [id number] 02:35:00 Name: NILA ROGERS [facility] Madeline Coffman : 2000 Age/S: 19 / F [address] [place] [address] Unit #:[id number] Loc: [place] [address] Phys: MartinjayReyanldogeraldine CARGO ROUTER Acct: [id number] Dis Date: Status: REG ERPHONE #: [phone] Exam Date: 02/16/2020 0134 FAX #: [phone] Reason: R lymphadenopathy, throat pain, fever EXAMS: CPT CODE: [id number] CT NECK W/CONTRAST 11026 EXAM: CT, CT NECK W/CONTRAST: 02/16/2020, 0132 [...] visualized orbits are unremarkable. VASCULAR STRUCTURES: The jugular veins and carotid vessels are PAGE 1 Signed Report (CONTINUED) Name: NILA ROGERS [facility] : 2000 Age/S: 19 / F [address] [place] [address] Blvd Unit #: [id number] Loc: [place] [address] Phys: Amilcar Pablo CARGO ROUTER Acct: [id number] Dis Date: Status: REG ER PHONE #: [phone] Exam Date: 02/16/2020 0134 FAX #: [phone] Reason: R lymphadenopathy, throat pain, fever EXAMS: CPT CODE: [id number] CT NECK W/CONTRAST 03288 <Continued> unremarkable. OSSEOUS STRUCTURES: There are no [...] aspect of lingual tonsils. Although this may bedue to infectious/inflammatory process, follow-up to resolution recommended. SL: JSBIANCAD- H at 0235 Reported and signed by: Jeromy Wolfe M.D. CC: Malu Tolentino MD; Amilcar Pablo NP Technologist:Josué Granado RT(R)(CT); Natasha CTDI: DLP: Trnscb Date/Time: 02/16/2020 (0235) [email or web address] Orig Print D/T: S: 02/16/2020 (023) PAGE 2 Signed ReportCOMPREHENSIVE METABOLIC [id number] 00:12:00 Test Item Value Reference Range Interpretation [...] IUnit/L 60-350 N code = ALKP) MONO [id number] 00:09:00 Test Item Value Reference Range Interpretation Comments MONO SCREEN (test code = MONO) NEGATIVE NEGATIVE URINALYSIS [id number] 00:02:00 Test Item Value Reference Range Interpretation [...] MUCU) 1+ /LPF NONE SEEN COMPREHENSIVE METABOLIC [id number] 00:02:00 Test Item Value Reference Range Interpretation [...] IUnit/L 60-350 code = ALKP) CBC W/AUTO [id number] 23:59:00 Test Item Value Reference Range Interpretation [...] (test NO code = MDIFF) UR HCG [id number] 23:56:00 Test Item Value Reference Range Interpretation Comments UR HCG QUAL (test code = HCGQLU) NEGATIVE NEGATIVE
[2022-03-30 22:56] LABS: Urine Blood Negative (Negative); Urine Glucose Negative (Negative); Urine Protein Negative (Negative); Urine Specific Gravity 1.015 (1.005-1.030); Urine pH 6.5 (5.0-7.0)
[2022-03-30 23:24] LABS: Absolute Lymphocytes (CBC) 2.6 K/uL (0.7-4.9); Hematocrit 32.3 % (36.0-45.0); MCV 83.7 fL (80-100); MPV 8.4 fL (7.6-11.3); RBC Red Blood Cell Count 3.85 M/uL (3.86-4.86)
[2022-03-30 23:35] LABS: Urine Mucus Slight /HPF (None Seen); Urine RBC <5 /HPF (None Seen)
--- NOTE | 2022-03-30 23:35 | RAD REPORT ---
EXAM DESCRIPTION: US - Transvaginal OB - 03/30/2022 11:23 pm CLINICAL HISTORY: with pelvic pain COMPARISON: None. FINDINGS: The uterus is retroverted and 7 x 4 x 5 measures centimeters. A gestational sac is prese nt within the endometrium measuring 1.7 centimeters. A yolk sac is seen. A pole is not demonstr ated. Very small subchorionic bleed Ovaries are normal in size and echotexture.. The right and left adnexa unremarkable No significant free fluid IMPRESSION: These findings may indicate a viable intrauterine in which the pole is n ot yet seen secondary to the early gestation. The estimated gestational age would be 6 weeks 4 days. Another consideration is that this is a failed . This all should be correlated clinically and with serial beta HCG levels. Followup endovaginal sonogr am in 1 week recommended
[2022-03-30 23:41] LABS: Urine Specific Gravity/Preg 1.015 (1.005-1.030)
[2022-03-30 23:48] LABS: Potassium 3.4 mmol/L (3.5-5.1)
[2022-03-30] MEDS ORDERED: NA CHLORIDE 0.9% 1,000 ML ONE (23:51)
[2022-03-31] MEDS ORDERED: POTASSIUM 25 MEQ EFFERV TAB ONE (00:35)
[2022-03-31] MEDS ORDERED: FAMOTIDINE 20 MG/2 ML VIAL IV ONE (00:46)
[2022-03-31] MEDS ORDERED: ONDANSETRON 4 MG/2 ML VIAL ONE (00:46)
--- NOTE | 2022-03-31 00:57 | ER ---
Nurse's Notes [facility] Name: Hilaria Rogers Age: 21 yrs Sex: Female : 2000 Arrival Date: 03/30/2022 Time: 21:41 Bed 8 Private MD: Diagnosis: related conditions, unspecified, first trimester;Nausea with vomiting, unspecified Presentation: 03/30 22:01 Chief complaint: Patient states: I found out I was not that long ago. I've aa9 been cramping in my lower abdomen and back. I can't hold down any food or water. My chest hurts now. Coronavirus screen: Vaccine status: Patient reports receiving the 2nd dose of the covid vaccine. Ebola Screen: No symptoms or risks identified at this time. 22:01 Method Of Arrival: Ambulatory aa9 22:18 Acuity: CONCHITA 3 as6 23:26 Initial Sepsis Screen: Does the patient meet any 2 criteria? No. Patient's initial 3 sepsis screen is negative. Does the patient have a suspected source of infection? No. Patient's initial sepsis screen is negative. Risk Assessment: Do you want to hurt yourself or someone else? Patient reports no desire to harm self or others. Onset of symptoms was March 29, 2022. Triage Assessment: 23:26 General: Appears in no apparent distress. uncomfortable. eh3 23:26 General: Behavior is calm, cooperative, appropriate for age. eh3 MEDICAL LAB ASSISTANT: 22:35 2, Full Term 1, Living 1, LMP 02/09/2022, Verified, EDC 11/16/2022, cp Gestational age from LMP: 7 weeks 2 days 23:26 LMP 02/2022 eh3 Historical: - Allergies: 22:26 No Known Allergies; ld1 - PSHx: 22:26 Tonsillectomy; ld1 - Immunization history:: Adult Immunizations up to date. - Social history:: Smoking status: Patient denies any tobacco usage or history of. Patient/guardian denies using alcohol. Screenin:26 Abuse screen: Denies threats or abuse. Denies injuries from another. Nutritional ld1 screening: No deficits noted. Tuberculosis screening: No symptoms or risk factors identified. Fall Risk None identified. Assessment: 22:23 General: Appears in no apparent distress. uncomfortable, Behavior is cooperative, ld1 appropriate for age, anxious. Pain: Complains of pain in low back area, left low back and right low back Pain radiates to suprapubic area, right lower quadrant and left lower quadrant Pain currently is 8 out of 10 on a pain scale. Quality of pain is described as aching, sharp, Pain began 1 day ago. Is continuous, Alleviated by nothing. Aggravated by eating, drinking. Neuro: Level of Consciousness is awake, alert, obeys commands, Oriented to person, place, time, situation. Cardiovascular: Capillary refill < 3 seconds Patient's skin is warm and dry. Respiratory: Airway is patent Respiratory effort is even, unlabored. GI: Bowel sounds present X 4 quads. Abdomen is tender to palpation in right lower quadrant and left lower quadrant Reports intolerance of fluids, intolerance of food, nausea, vomiting. : No signs and/or symptoms were reported regarding the genitourinary system. EENT: No signs and/or symptoms were reported regarding the EENT system. Derm: No signs and/or symptoms reported regarding the dermatologic system. Musculoskeletal: No signs and/or symptoms reported regarding the musculoskeletal system. Vital Signs: 22:01 BP 116 / 74; Pulse 91; Resp 16 S; Temp 98.7(O); Pulse Ox 100% on R/A; Weight 66.22 kg aa9 (R); Height 5 ft. 2 in. (157.48 cm) (R); Pain 7/10; 23:00 BP 103 / 59; Pulse 82; Resp 18; Pulse Ox 99% on R/A; eh3 22:01 Body Mass Index 26.70 (66.22 kg, 157.48 cm) aa9 ED Course: 21:41 Patient arrived in ED. bp1 21:51 Gabriel Centeno PA is PHCP. cp 21:51 Parveen Back MD is Attending Physician. cp 22:18 Triage completed. as6 22:26 Patient has correct armband on for positive identification. Bed in low position. Call ld1 light in reach. Side rails up X2. Client placed on continuous cardiac and pulse oximetry monitoring. NIBP monitoring applied. 22:26 No provider procedures requiring assistance completed. ld1 22:35 Dede Connell, KELSEY is Primary Nurse. ld1 22:57 Urine Microscopic Only Sent. ld1 22:57 Abo/rh Typing Sent. ld1 22:57 Basic Metabolic Panel Sent. ld1 22:57 CBC with Diff Sent. ld1 22:57 Quantitative Hcg Sent. ld1 22:58 Inserted saline lock: 20 gauge in right antecubital area, using aseptic technique. ld1 Blood collected. 23:24 US Transvaginal Ob In Process Unspecified. EDMS 23:26 Arm band placed on right wrist. eh3 23:28 Urine --Ancillary (enter results) Sent. eh3 23:28 Urine Microscopic Only Sent. eh3 23:28 Abo/rh Typing Sent. eh3 23:28 Basic Metabolic Panel Sent. eh3 23:28 Quantitative Hcg Sent. 3 03/31 01:11 IV discontinued, intact, bleeding controlled, No redness/swelling at site. Pressure as6 dressing applied. Administered Medications: 03/30 23:39 Drug: NS 0.9% 1000 ml Route: IV; Rate: 1 bolus; Site: right antecubital; 3 03/31 00:49 Follow up: Response: No adverse reaction; IV Status: Completed infusion; IV Intake: as6 1000ml 00:46 Drug: Potassium Effervescent Tablet 25 mEq Route: PO; as6 00:49 Follow up: Response: No adverse reaction as6 00:46 Drug: Zofran (Ondansetron) 4 mg Route: IVP; Site: right antecubital; as6 00:49 Follow up: Response: No adverse reaction as6 00:46 Drug: Pepcid (famotidine) 20 mg Route: IVP; Site: right antecubital; as6 00:49 Follow up: Response: No adverse reaction as6 Medication: 03/30 23:00 VIS not applicable for this client. [facility] Intake: 03/31 00:49 IV: 1000ml; Total: 1000ml. as6 Outcome: 00:57 Discharge ordered by . gavin 01:11 Discharged to home ambulatory, with family. as6 01:11 Condition: stable 01:11 Discharge instructions given to patient, Instructed on discharge instructions, follow up and referral plans. medication usage, Demonstrated understanding of instructions, follow-up care, medications, Prescriptions given X 3. 01:11 Patient left the ED. as6 Signatures: Dispatcher [employer] EDWI Gabriel Centeno PA PA cp Paniauga, Brittany bp1 Dibbern, Lauren, RN RN ld1 Remigio Diaz, RN RN as6 Yvette Bledsoe, RN RN eh3 Andressa Solorio, RN RN aa9
--- NOTE | 2022-03-31 00:58 | EDPHYS ---
Physician Documentation [facility] Name: Hilaria Rogres Age: 21 yrs Sex: Female : 2000 Arrival Date: 03/30/2022 Time: 21:41 Bed 8 Private MD: ED Physician Parveen Back HPI: 03/30 22:35 This 21 yrs old Female presents to ER via Ambulatory with complaints of Abdominal cp Cramping, Vomiting, Congestion. 22:35 The patient presents to the emergency department with abdominal pain, of the right cp lower quadrant and left lower quadrant, nausea and vomiting. course: care: none, Leakage of Fluid: none appreciated, Ultrasound: the patient has not had an ultrasound. Associated signs and symptoms: Pertinent positives: chest pain, Pertinent negatives: dysuria, fever, vaginal bleeding, vaginal discharge. Patient presents to ED with c/o lower abdomen cramping, nausea and vomiting. Urine test done in ED positive for . Patient unaware until today. No care. 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 - Social history:: Smoking status: Patient denies any tobacco usage or history of. Patient/guardian denies using alcohol. ROS: 22:40 Constitutional: Negative for body aches, chills, fever. cp 22:40 Eyes: Negative for injury, pain, redness, and discharge. cp 22:40 ENT: Negative for drainage from ear(s), ear pain, sore throat, difficulty swallowing, difficulty handling secretions. 22:40 Cardiovascular: Positive for chest pain, Negative for edema, palpitations. 22:40 Respiratory: Negative for cough, shortness of breath, wheezing. 22:40 Abdomen/GI: Positive for nausea and vomiting, abdominal cramps, Negative for diarrhea, constipation, hematemesis. 22:40 : Negative for urinary symptoms, vaginal bleeding, vaginal discharge. 22:40 Neuro: Negative for altered mental status, headache, weakness. 22:40 All other systems are negative. Exam: 22:45 Constitutional: The patient appears in no acute distress, alert, awake, comfortable, cp non-diaphoretic, non-toxic, well developed, well nourished. 22:45 Head/Face: Normocephalic, atraumatic. cp 22:45 Eyes: Periorbital structures: appear normal, Conjunctiva: normal, no exudate, no injection, Sclera: no appreciated abnormality, Lids and lashes: appear normal, bilaterally. 22:45 ENT: External ear(s): are unremarkable, Nose: is normal, Mouth: Lips: moist, Oral mucosa: pink and intact, moist, Posterior pharynx: Airway: no evidence of obstruction, patent. 22:45 Chest/axilla: Inspection: normal, Palpation: is normal, no crepitus, no tenderness. 22:45 Cardiovascular: Rate: normal, Rhythm: regular, Edema: is not appreciated, JVD: is not appreciated. 22:45 Respiratory: the patient does not display signs of respiratory distress, Respirations: normal, no use of accessory muscles, no retractions, labored breathing, is not present, Breath sounds: are clear throughout, no decreased breath sounds, no stridor, no wheezing. 22:45 Abdomen/GI: Inspection: abdomen appears normal, Bowel sounds: active, all quadrants, Palpation: soft, in all quadrants, mild abdominal tenderness, in the right lower quadrant and left lower quadrant. 22:45 Back: CVA tenderness, is absent. 22:45 Skin: cellulitis, is not appreciated, no rash present. 22:45 Neuro: Orientation: to person, place \T\ time. Mentation: is normal, Motor: moves all fours, strength is normal, Sensation: is normal. Vital Signs: 22:01 BP 116 / 74; Pulse 91; Resp 16 S; Temp 98.7(O); Pulse Ox 100% on R/A; Weight 66.22 kg aa9 (R); Height 5 ft. 2 in. (157.48 cm) (R); Pain 7/10; 23:00 BP 103 / 59; Pulse 82; Resp 18; Pulse Ox 99% on R/A; eh3 22:01 Body Mass Index 26.70 (66.22 kg, 157.48 cm) aa9 MDM: 22:10 Patient medically screened. 03/31 00:00 Differential diagnosis: STD, ectopic , uti. 00:57 Data reviewed: vital signs, nurses notes, lab test result(s), radiologic studies, cp ultrasound. 00:57 Counseling: I had a detailed discussion with the patient and/or guardian regarding: the cp historical points, exam findings, and any diagnostic results supporting the discharge/admit diagnosis, lab results, radiology results, the need for outpatient follow up, an OB/Gyne specialist, to return to the emergency department if symptoms worsen or persist or if there are any questions or concerns that arise at home. Response to treatment: the patient's symptoms have markedly improved after treatment, and as a result, I will discharge patient. ED course: VSS. Nausea improved and patient tolerating po fluids with no vomiting. Will discharge to home for continued monitoring. 03/30 22:33 Order name: Abo/rh Typing; Complete Time: 00:27 03/31 00:27 Interpretation: Reviewed. 03/30 22:33 Order name: Basic Metabolic Panel; Complete Time: 00:15 03/31 00:15 Interpretation: Normal except: K 3.4; CRE 0.54. 03/30 22:33 Order name: CBC with Diff; Complete Time: 23:37 03/30 23:37 Interpretation: Normal except: RBC 3.85; HGB 10.7; HCT 32.3. 03/30 22:33 Order name: Quantitative Hcg; Complete Time: 00:15 03/31 00:15 Interpretation: HCGQ 62816; Reviewed. 03/30 22:33 Order name: Urine Microscopic Only; Complete Time: 23:37 03/30 22:56 Order name: Urine Dipstick-Ancillary; Complete Time: 23:37 EDMS 03/30 22:33 Order name: IV Saline Lock; Complete Time: :57 03/30 22:33 Order name: Labs collected and sent; Complete Time: :57 03/30 22:33 Order name: US Transvaginal Ob; Complete Time: 23:37 03/30 23:38 Interpretation: Report reviewed. 03/30 23:06 Order name: Urine --Ancillary (enter results); Complete Time: 00:15 mw2 03/31 00:16 Interpretation: Reviewed. cp 03/30 22:33 Order name: NPO; Complete Time: 22:36 cp 03/30 22:33 Order name: Urine Dipstick-Ancillary (obtain specimen); Complete Time: 22:57 cp 03/30 22:33 Order name: Urine Test (obtain specimen); Complete Time: 22:57 cp Administered Medications: 03/30 23:39 Drug: NS 0.9% 1000 ml Route: IV; Rate: 1 bolus; Site: right antecubital; eh3 03/31 00:49 Follow up: Response: No adverse reaction; IV Status: Completed infusion; IV Intake: as6 1000ml 00:46 Drug: Potassium Effervescent Tablet 25 mEq Route: PO; as6 00:49 Follow up: Response: No adverse reaction as6 00:46 Drug: Zofran (Ondansetron) 4 mg Route: IVP; Site: right antecubital; as6 00:49 Follow up: Response: No adverse reaction as6 00:46 Drug: Pepcid (famotidine) 20 mg Route: IVP; Site: right antecubital; as6 00:49 Follow up: Response: No adverse reaction as6 Disposition Summary: 03/31/22 00:57 Discharge Ordered Location: Home cp Problem: new cp Symptoms: have improved cp Condition: Stable cp Diagnosis - related conditions, unspecified, first trimester cp - Nausea with vomiting, unspecified cp Followup: cp - With: Private Physician - When: 48 Hours - Reason: Repeat Beta-HCG (48 Hours) Discharge Instructions: - Discharge Summary Sheet cp - Abdominal Pain During cp - Nausea and Vomiting, Adult cp - Care cp Forms: - Medication Reconciliation Form cp - Thank You Letter cp - Antibiotic Education cp - Prescription Opioid Use cp Prescriptions: - Diclegis 10-10 mg Oral tablet,delayed release (DR/EC) - take 1 tablet by ORAL route as directed 30 minutes prior to each meal and 2 cp tablets at bedtime; 60 tablet; Refills: 0, Product Selection Permitted - 114-iron a-g-folate 1 20 mg iron- 1 mg Oral tablet - take 1 tablet by ORAL route once daily; 60 tablet; Refills: 0, Product cp Selection Permitted - Zofran 4 mg Oral Tablet - take 1 tablet by ORAL route every 12 hours As needed; 20 tablet; Refills: 0, cp Product Selection Permitted Addendum: 04/03/2022 07:12 Co-signature as Attending Physician, Parveen Back MD I agree with the assessment and [facility]3] plan of care. Signatures: Dispatcher [employer] EDSC Parveen Back MD MD kdr Gabriel Centeno PA PA cp Dede Connell RN RN ld1 Remigio Diaz RN RN as6 Yvette Bledsoe RN RN eh3
[2022-03-31 04:31] VITALS: TEMP 98.7
[2022-03-31 04:33] VITALS: BP 103/59; O2SAT 99
== END 2022-03-31 01:11 | disposition home or self-care (01) ==
LOC: ER 21:37
DX: O21.9 Vomiting of pregnancy, unspecified (principal); Z3A.01 Less than 8 weeks gestation of pregnancy
CPT/HCPCS: 96361; 85025; 80048; 36415; 86900; 81025; 86901; 84702; 76817; 96375; 96374; 99284; J7030; J2405; 81003; 81015

== ENCOUNTER 2022-04-12 22:46 | Emergency (ER) | payer OTHER ==
--- OUTSIDE RECORDS SUMMARY | 2022-04-12 22:51 | XMS REPORT | Continuity of Care Document ---
:2000 Author Organization [facility] t Address [address] [place]. [address] [place] [address] Care Team Providers Name Role Phone Ki [...] PICKERING, Lydia Hilton Attending Clinician Doctor Unassigned, [place] Attending Clinician Unavailable Amauri RUSS, Madhavi Delcid [...] Treatment Clinician Date Anxiety Anxiety Disease Active Univers [facility] [place] [place] Depression Depression Disease Active U nivers [facility] [place] [place] Allergies, Adverse Reactions, Alerts Allergy Allergy Status Severity Reaction(s) Onset Inactive Treating Comm ents Source Name Type Date Date Clinician No Known DA Active U [facility] Allergie 11-23 Clear s 00:00: [place] 00 [facility] No Known DA Active U [facility] Allergie 11-23 Clear s 00:00: [place] 00 [facility] MALIC DA Active SV TONGUE [facility] ACID SWELLING, 12-24 Clear THROAT 00:00: [place] CLOSING [facility] Malic Drug Active Swelling 2018-0 Univers Acid Allergy 6-08 ity of 00:00: [place] 00 [facility] Sour Propensi Active Anaphylaxis 2017- Sour Uni vers [place] ty to 4-30 flavoring ity of adverse 00:00: on all [place] reaction 00 candy [facility] [place] Social History Social Habit Start Date Stop Date Quantity Comments Source Exposure to 2022-03-05 2022-03-15 Not sure [facility] SARS-CoV-2 00:00:00 17:14:00 [facility] (event) [place] Alcohol intake 2022-02-25 2022-02-25 Ex-drinker [facility] 00:00:00 00:00:00 (finding) [facility] Tobacco use and 2022-02-25 2022-02-25 Smokeless tobacco Un iversity of exposure 00:00:00 00:00:00 non-user [facility] Sex Assigned At [birth year] Universit y of 00:00:00 00:00:00 [facility] Smoking Status Start Date Stop Date Source Never smoked tobacco [facility] Medications Ordered Filled Start Stop Current Ordering Indication Dosage Frequency Signature Comments Components Source Medication Medication Date Date Medication? Clinician (SIG) Name Name FLUTICASONE 2020-07 Yes [id number] SPRAY 1 Univers PROPIONATE 2-02 SPRAY INTO ity of 50 00:00: EACH [place] mcg/actuati 00 NOSTRIL Medic al on nasal EVERY DAY Branch spray EPINEPHrine 2019-07 Yes [id number] INJECT 0.3 Univers 0.3 mg/0.3 1-30 ML BY ity of mL 00:00: INTRAMUSCU [place] injection 00 LAR ROUTE Medic al ONCE NOW [place] FOR 1 DOSE. Immunizations Ordered Immunization Filled Immunization Date Status Commen ts Source Name Name Meningococcal 2019-02-23 Completed University of Polysaccharide 00:00:[address] [facility] thomas (groups A, C, Y and Branc h W-135) conjugate vaccine (MCV4P) DTP 2005-01-21 Completed [facility] 00:00:00 [facility] HIB 3 Dose Schedule 2005-01-21 Completed Unive rsity of 00:00:00 [facility] HEPATITIS A 2005-01-21 Completed [facility] 00:00:00 [facility] Pneumococcal 7 2005-01-21 Completed [facility] Conjugate, PCV7 00:00:00 [place] Med ical (Prevnar7) Branch MMR 2003-12-25 Completed University of 00:00:00 [facility] Polio (IPV/OPV) 2003-12-25 Completed Universit y of 00:00:00 [facility] Pneumococcal 7 2003-12-25 Completed University Conjugate, PCV7 00:00:00 [place] Med ical (Prevnar7) Branch DTP 2003-06-19 Completed University 00:00:00 [facility] HIB 3 Dose Schedule 2003-06-19 Completed Unive rsity of 00:00:00 [facility] Hep B, Adol or Pedi 2003-06-19 Completed Unive rsity of Dosage 00:00:00 [facility] Polio (IPV/OPV) 2003-06-19 Completed Universit y of 00:00:00 [facility] Hep B, Adol or Pedi 2000 Completed Unive rsity of Dosage 00:00:00 [facility] Procedures Procedure Date / Time Performed Performing Clinician David marlene [id number] 2021-03-26 00:00:00 MAXBA [facility] [id number] 2021-03-26 00:00:00 MAXBA [facility] Encounters Start End Encounter Admission Attending Care Care Encounter Source Date/Time Date/Time Type Type Clinicians Facility Department ID 2020-11-23 Inpatient Ashley, HCACL HCACL [id number] [facility] 00:57:29 Brittnee 52 [facility] 2020-10-05 Inpatient HCACL HCACL [id number] [facility] 01:43:54 61 [facility] 2020-08-22 Inpatient HCACL KAELA [id number] [facility] 20:18:00 05 [facility] 2020-02-15 Inpatient HCACL KAELA [id number] [facility] 22:49:00 35 [facility] 2022-03-20 2022-03-20 Telephone MARISOL Moore [id number] [facility] 00:00:00 00:00:00 Antonia Garzon PEDIATRIC 350.1.13.10 ity of [place]2.7.2.686 [place] [id number] [facility] PRIMARY [facility] Branch CARE CLINIC 2022-03-06 2022-03-06 Emergency EM Oyebadejo, HCACL AERS [id number] [facility] 15:06:00 16:12:00 Oluwadolapo 45 Cl [facility] 2021-11-11 2021-11-11 Emergency EM Bishop, HCACL AERS [id number] [facility] 00:16:00 00:55:00 Kishor 36 [facility] 2021-08-08 2021-08-08 Emergency EM Oyebadejo, HCACL AERS [id number] [facility] 22:06:00 22:30:00 Oluwadolapo 00 Cl [facility] 2021-03-25 2021-03-28 Inpatient EL Maximos, HCACL OBPP [id number] [facility] 14:56:00 15:32:00 Luis 40 [facility] 2021-03-12 2021-03-13 Emergency EM Billy HCACL OLGA [id number] [facility] 21:07:00 01:05:00 Puckly, 24 Clear [facility] 2021-03-01 2021-03-01 Emergency EM Maximos, HCACL OLGA [id number] [facility] 05:33:00 09:00:00 Luis 85 [facility] 2021-02-17 2021-02-17 Emergency EM Billy HCACL OLGA [id number] [facility] 15:17:00 16:47:00 Puckly, 82 Clear [facility] 2021-02-12 2021-02-12 Emergency EM Billy HCACL OLGA [id number] [facility] 19:14:00 22:29:00 Puckly, 18 Clear [facility] 2021-01-29 2021-01-29 Emergency EM Bhalani, HCACL OLGA [id number] [facility] 02:30:00 03:50:00 Dottie 33 [facility] 2021-01-13 2021-01-13 Emergency Nathalia Redding [facility] [id number] 01:18:00 02:30:00 Ricarda Khan 350.1.13.10 Yamileth 4.2.7.2.686 [place] [id number] 2021-01-11 2021-01-11 Urgent Grow, Marisol 1.2.840.114 [id number] 17:51:24 18:25:45 Care Aneta Pediatric 350.1.13.10 Vilma s and 4.2.7.2.686 Adult [id number] Primary [facility] 2020-12-25 2020-12-25 Emergency EM Scott, HCACL OLGA [id number] [facility] 15:08:00 18:26:00 Pearl 03 [facility] 2020-11-23 2020-11-23 Emergency EM Ashley, HCACL OLGA [id number] [facility] 00:02:00 02:58:00 Brittnee 52 [facility] 2020-11-01 2020-11-01 NICOLAS Calderon [id number] 00:00:00 00:00:00 (Out) Tashia SHELTON 350.1.13.10 [facility] 4.2.7.2.686 [id number] 2020-10-30 2020-10-31 Emergency [facility], [facility] [id number] 22:11:00 00:46:00 Lily Bauman 350.1.13.10 [place] 4.2.7.2.686 [place] [id number] 084 2020-10-26 2020-10-26 Urgent Marisol Aguayo 1.2.840.114 [id number] 18:33:25 19:03:11 Care Aneta Pediatric 350.1.13.10 Vilma s and 4.2.7.2.686 Adult [id number] Primary [facility] Care [facility] 2020-09-18 2020-09-19 Emergency [facility], [facility] [id number] 23:47:00 01:47:00 Lydia Bauman 350.1.13.10 [place] 4.2.7.2.686 [place] [id number] 084 2020-09-18 2020-09-18 Gabriella VALENZUELA 1.2.840.114 [id number] 00:00:00 00:00:00 Only Unassigned, NIKITA 350.1.13.10 [facility] 4.2.7.2.686 [id number] 2020-08-22 2020-08-22 Office Madhavi Baugh 1.2.840.114 [id number] 15:52:31 16:12:31 Visit Ali Pediatric 350.1.13.10 s and 4.2.7.2.686 Adult [id number] Primary [facility] Care [facility] Results Test Description Test Time Test Comments Results Result [facility] e Comments - XR ANKLE 3 + V 2022-03-06 RT 00:00:00 [facility] [place] [place] : 2000 Sex: F FAX: Emily Mckoy MD [phone] [place]: [place] St: PRE FAX: Romeo Bragg Name: NILA ROGERS FSED : 2000 Age/S: 21/F [address] Unit #: [id number] Loc: [place] [address] Phys: Ghanshyam Bragg MD Acct: [id number] Dis Date: Status: PRE ER PHONE #: Exam Date: 03/06/2022 1600 FAX #: Reason: R ANKLE PAIN AFTER FALL EXAMS: CPT CODE: [id number] XR ANKLE 3 + V RT 87512 PROCEDURE INFORMATION: Exam: XR Right Ankle Exam [...] MD Technologist: RT Valerie(R)(CT) Trnscrd Date/Time/By: 03/06/2022 (6584) : By: Kristian Orig Print D/T: S: 03/06/2022 (7385) PAGE 1 Signed Report - XR FOOT 3 + V RT 2022-03-06 00:00:00 [facility] [place] [place] : 2000 Sex: F FAX: Emily Mckoy MD [phone] [place]: [place] St: PRE FAX: Romeo Bragg Name: NILA ROGERS Marisol FSED : 2000 Age/S: 21/F [address] Unit #: [id number] Loc: [place] [address] Phys: Ghanshyam Bragg MD Acct: [id number] Dis Date: Status: PRE ER PHONE #: Exam Date: 03/06/2022 4701 FAX #: Reason: r foot injury EXAMS: CPT CODE: [id number] XR FOOT 3 + V RT 82360 PROCEDURE INFORMATION: Exam: XR Right Foot Exam [...] assessment. IMPRESSION: No fractures or dislocation at 9412 Reported and signed by: Emeka Pickering M.D. CC: Emily Hurtado MD; Ghanshyam Bragg MD Technologist: Katerina Rosas RT(R)(CT) Trnscrd Date/Time/By: 03/06/2022 (6312) : By: [email or web address] Orig Print D/T: S: 03/06/2022 (2125) PAGE 1 Signed Report URINE HCG TRIAGE (ER ONLY) 2021-11-11 08:40:00 Test Item Value Reference Range Interpretation Comme nts URINE HCG TRIAGE (ER ONLY) (test code = HCGTRIAGE) NEGATIVE Neg ative Urine Test Result: NEGATIVEAre internal controls (presence of a control line & clear background) OK? YLot # of HCG Test Kit: [id number] Date of Kit: 02/15/23Test Performed by: Carlo Perfomed on: 11/11/21COMMENTS: NEGATIVEUA DIPSTICK [id number] 00:46:00 Test Item Value Reference Range Interpretation Comments UA GLUCOSE DIPSTIC POC NEGATIVE NEGATIVE (test code = GLUUP) UA BILIRUBIN DIPSTICK NEGATIVE NEGATIVE (test code = BILU) UA KETONE DIPSTICK POC NEGATIVE NEGATIVE (test code = KETUP) UA SPECIFIC GRAVITY (test 1.010 1.005-1.030 N code = SGU) UA BLOOD DIPSTIC POC NEGATIVE NEGATIVE Perform ed by (test code = BLUP) certified nickel operator at [facility] ed [facility] UA PH DIPSTIC POC (test 7 5.0-7.0 N code = PHUP) UA PROTEIN DIPSTICK POC NEGATIVE NEGATIVE (test code = DPROUP) UA UROBILINIOGEN QUAL NORMAL 0.2-1.0 (test code = UROQL) UA NITRITE DIPSTICK POC NEGATIVE Negative (test code = NITUP) UA LEUKOCYTE ESTERASE W Negative NEGATIVE REFLEX (test code = LEUUR) SURGICAL PATH [id number] 13:13:00 Test Item Value Reference Range Interpretation Comments SURGICAL PATH SPECIMENS (test code = S) RUN DATE: 03/28/21 [place] [facility] PAGE 1 RUN TIME: 1313 Specimen Inquiry RUN USER: INTERFACE ARTEMIO ENT: NILA ROGERS LOC: MAIKEL U #: [id number] AGE/SX: 20/F [facility]: Luis Burciaga MD : [birth year] BED: 1 DIS: STATUS: ADM IN TLOC: SPEC #: [id number] RECD: 03/27/21 STATUS: [facility] #: [id number] SLOAN: 03/26/21- SUBM DR: Luis Burciaga MD ENTERED: 03/27/21 SP TYPE: SURG SPEC OTHR DR: ORDERED: LEVEL 5 CODES: [id number] - PLACENTA, NOS PROCEDURES: GM LEVEL 5 [...] 03/28/21 1313 END OF REPORT CBC W/AUTO [id number] 07:03:00 Test Item Value Reference Range Interpretation [...] code NO = MDIFF) CORD VENOUS BLOOD [id number] 18:41:00 Test Item Value Reference Range Interpretation [...] = 17 % O2SCV) CORD ARTERIAL BLOOD [id number] 18:40:00 Test Item Value Reference Range Interpretation [...] O2S/C) 25 % 72-77 L RAPID PLASMA [id number] 10:40:00 Test Item Value Reference Range Interpretation Comments RAPID PLASMA REAGIN (test code = NONREACTIVE NONREACTIVE RPR) AG HEPATITIS B [id number] 10:40:00 Test Item Value Reference Range Interpretation Comments AG HEPATITIS B SURFACE NON REACTIVE INDEX NonReactive (test code = HBSAG) AB HIV 1 10:40:00 Test Item Value Reference Range Interpretation Comments AB HIV 1 2 (test code = ZLR00ZJ) Nonreactive Nonreactive COVID 19 Asymptomatic IH [id number] 20:20:00 Test Item Value Reference Range Interpretation [...] moderate, high or waivedcomplexit y tests. URINALYSIS [id number] 18:48:00 Test Item Value Reference Range Interpretation [...] MUCU) TRACE /LPF NONE SEEN RAPID PLASMA [id number] 18:11:00 Test Item Value Reference Range Interpretation Comments RAPID PLASMA REAGIN (test code = RPR) NONREACTIVE AG HEPATITIS B [id number] 18:11:00 Test Item Value Reference Range Interpretation Comments AG HEPATITIS B SURFACE NON REACTIVE INDEX NonReactive (test code = HBSAG) AB HIV 1 18:11:00 Test Item Value Reference Range Interpretation Comments AB HIV 1 2 (test code = JME75QE) Nonreactive Nonreactive COMPREHENSIVE METABOLIC [id number] 17:45:00 Test Item Value Reference Range Interpretation [...] N TOTAL (test code = ALKP) URIC [id number] 17:45:00 Test Item Value Reference Range Interpretation Comments URIC ACID (test code = URIC) 4.0 mg/dL 2.6-7.2 N LACTIC DEHYDROGENASE(LDH)2021-03-25 17:45:00 Test Item Value Reference Range Interpretation Comments LACTIC DEHYDROGENASE(LDH) (test 225 IUnits/L 84-246 N code = LDH) CBC W/AUTO [id number] 17:24:00 Test Item Value Reference Range Interpretation [...] REQUIRED (test code = MDIFF) CBC W/AUTO [id number] 17:24:00 Test Item Value Reference Range Interpretation [...] REQUIRED (test code NO = MDIFF) - BIOPHYS [id number] 00:00:00 [facility] 2000 Sex: F Name: NILA ROGERS [facility] : 2000 Age/S: 20 / F [address] [place] [address] Bl Unit #: [id number] Loc: [place] [address] Phys: Effie Solitario MD Acct: [id number] Dis Date: Status: REG ER PHONE #: [phone] Exam Date: 03/12/202141 FAX #: [phone] Reason: Possible SROM, please evaluate ISMA EXAMS: CPT CODE: [id number] US BIOPHYS PROF 32407 PROCEDURE INFORMATION: Exam: US Biophysical Profile With [...] Probe: PAGE 1 Signed Report AMNISURE (ROM) [id number] 22:05:00 Test Item Value Reference Range Interpretation Comments AMNISURE (ROM) TEST (test code = NEGATIVE NEGATIVE AMNI) URINALYSIS [id number] 21:48:00 Test Item Value Reference Range Interpretation [...] = MUCU) TRACE /LPF NONE SEEN URINALYSIS [id number] 07:00:00 Test Item Value Reference Range Interpretation [...] TRACE /LPF NONE SEEN - US BIOPHYS [id number] 00:00:00 [facility] [place]: [place] : 2000 Sex: F Name: NILA ROGERS [facility] [place] : 2000 Age/S: 20 / F [address] [place] [address] Blvd Unit #: [id number] Loc: [place] [address] Phys: Effie Solitario MD Acct: [id number] Dis Date: Status: REG ER PHONE #: [phone] Exam Date: 03/01/2021 0758 FAX #: [phone] Reason: decreased movements EXAMS: CPT CODE: [id number] US BIOPHYS PROF 42376 PROCEDURE INFORMATION: Exam: US Biophysical Profile With [...] (809) [email or web address] Orig Print D/T: S: 03/01/2021 (5527) Probe: PAGE 1 Signed Report AMNISURE (ROM) [id number] 16:16:00 Test Item Value Reference Range Interpretation Comments AMNISURE (ROM) TEST (test code = NEGATIVE NEGATIVE AMNI) [id number] 16:16:00 Test Item Value Reference Range Interpretation Comments FIBRONECTIN (test code = FFN) NEGATIVE NEGATIVE [id number] 20:50:00 Test Item Value Reference Range Interpretation Comments FIBRONECTIN (test code = FFN) NEGATIVE NEGATIVE URINALYSIS [id number] 20:32:00 Test Item Value Reference Range Interpretation [...] TRACE /LPF NONE SEEN - US BIOPHYS [id number] 00:00:00 [facility] [place] [place] : 2000 Sex: F Name: NILA ROGERS [facility] : 2000 Age/S: 20 / F [address] [place] [address] Unit #: [id number] Loc: [place] [address] Phys: Effie Solitario MD Acct: [id number] Dis Date: Status: REG ER PHONE #: [phone] Exam Date: 02/12/20212122 FAX #: [phone] Reason: Decreased movements EXAMS: CPT CODE: [id number] US BIOPHYS PROF 48390 PROCEDURE INFORMATION: Exam: US FetalBiophysical Profile With [...] 1 Signed Report (CONTINUED) Name: NILA ROGERS [facility] Madeline [place] : 2000 Age/S: 20 / F [address] [place] [address] Blvd Unit #: [id number] Loc: [place] [address] Phys: Effie Solitario MD Acct: [id number] Dis Date: Status: REG ER PHONE #: [phone] Exam Date: 02/12/20212122 FAX #: [phone] Reason: Decreased movements EXAMS: CPT CODE: [id number] BIOPHYS PROF 53837 <Continued> at 2121 Reported and signed by: Geovanny Hughes D.O. CC: Technologist: Yuki Ray RDMS(AB)(OB) Trnscb Date/Time: 02/12/2021 (2121) [email or web address] Orig Print D/T: S: 02/12/2021 (2148) Probe: PAGE 2 Signed ReportURINALYSIS [id number] 03:25:00 Test Item Value Reference Range Interpretation [...] MUCU) TRACE /LPF NONE SEEN - US [id number] 17:34:00 [facility] : 2000 Sex: F Name: NILA ROGERS [facility] : 2000 Age/S: 20 / F [address] [place] [address] Unit #: [id number] Loc: [place] [address] Phys: Pearl Chavez DO Acct: [id number] Dis Date: Status: REG ERPHONE #: [phone] Exam Date: 12/25/2020 1726 FAX #: [phone] Reason: h/o low ISMA, unsure if PROM, translabial cervic EXAMS: CPT CODE: [id number] US LTD 11149 LIMITED ULTRASOUND INDICATION: with history of low [...] 1 Signed Report (CONTINUED) Name: NILA ROGERS [facility] : 2000 Age/S: 20 / F [address] [place], [place] [address]vd Unit #: [id number] Loc: [place] [address] Phys: Pearl Chavez DO Acct: [id number] Dis Date: Status: REG ER PHONE #: [phone] Exam Date: 12/25/2020 172 FAX #: [phone] Reason: h/o low ISMA, unsure if PROM, translabial cervic EXAMS: CPT CODE: [id number] LTD 59733 <Continued> at 1734 Reported and signed by: Judah Izquierdo M.D. CC: Pearl Chavez DO Technologist: Merna Figueroa RDMS() Trnscb Date/Time: 12/25/2020 (173) [email or web address] Orig Print D/T: S: 12/25/2020 (1737) Probe: PAGE 2 Signed ReportAMNISURE (ROM) [id number] 17:14:00 Test Item Value Reference Range Interpretation Comments AMNISURE (ROM) TEST (test code = NEGATIVE NEGATIVE AMNI) URINALYSIS [id number] 17:10:00 Test Item Value Reference Range Interpretation [...] A = AMORU) DRUGS OF ABUSE SCREEN [id number] 17:07:00 Test Item Value Reference Range Interpretation [...] non-medical pur poses. - US PREG AFTER [id number] 02:47:00 [facility] : 2000 Sex: F Name: NILA ROGERS [facility] : 2000 Age/S: 19 / F [address] [place] [address] Blvd Unit #: [id number] Loc: [place] [address] Phys: Brittnee Ramirez MD Acct: [id number] Dis Date: Status: REG ERPHONE #: [phone] Exam Date: 11/23/2020143 FAX #: [phone] Reason: No PNC, bleeding, approximately 20 weeks EXAMS: CPT CODE: [id number] US PREG AFTER TRI 10814 EXAM: US, US PREG AFTER 1SR TRI: [...] 1 Signed Report (CONTINUED) Name: NILA ROGERS [facility] : 2000 Age/S: 19 / F [address] [place] [address] Unit #: [id number] Loc: [place] [address] Phys: Brittnee Vela MD Acct: [id number] Dis Date: Status: REG ER PHONE #: [phone] Exam Date: 11/23/2020 0144 FAX #: [phone] Reason: No PNC, bleeding, approximately 20 weeks EXAMS: CPT CODE: [id number] US PREG AFTER 1ST TRI 65639 <Continued> seen. Cervical length is not visualized. IMPRESSION: Single live fetus in variable presentation. heart rate is 140 bpm. 2. Sonographic EGA of 19 weeks 6 days and an sonographic DANY of 04/13/2021 +/- one standard deviation. SL:[JSYED-H] at 0247 Reported and signed by: Jeromy Wolfe M.D.CC: Brittnee Ramirez MD Technologist: Maryam Anderson RDMS(BR)(AB) Trnscb Date/Time: 11/23/2020 (024)[email or web address] Orig Print D/T: S: 11/23/2020 (0250) Probe: PAGE 2 Signed Report- US PREG AFTER [id number] 02:47:00 [facility] : 2000 Sex: F Name: NILA ROGERS [facility] [place] : 2000 Age/S: 19 / F [address] [place] [address] Blvd Unit #: [id number] Loc: [place] [address] Phys: Brittnee Ramirez MD Acct: [id number] Dis Date: Status: DEP ERPHONE #: [phone] Exam Date: 11/23/2020 0144 FAX #: [phone] Reason: No PNC, bleeding, approximately 20 weeks EXAMS: CPT CODE: [id number] US PREG AFTER TRI 10447 EXAM: US, US PREG AFTER 1SR TRI: [...] 1 Signed Report (CONTINUED) Name: NILA ROGERS [facility] : 2000 Age/S: 19 / F [address] [place] [address] Unit #: [id number] Loc: [place] [address] Phys: Brittnee Ramirez MD Acct: [id number] Dis Date: Status: [facility] ER PHONE #: [phone] Exam Date: 11/23/2020 0144 FAX #: [phone] Reason: No PNC, bleeding, approximately 20 weeks EXAMS: CPT CODE: [id number] US PREG AFTER 1ST TRI 38242 <Continued> seen. Cervical length is not visualized. IMPRESSION: Single live fetus in variable presentation. heart rate is 140 bpm. 2. Sonographic EGA of 19 weeks 6 days and an sonographic DANY of 04/13/2021 +/- one standard deviation. SL:[JSYED-H] at 0247 Reported and signed by: Jeromy Wolfe M.D. CC: Brittnee Ramirez MD Technologist: Maryam Anderson RDMS(BR)(AB) Trnscb Date/Time: 11/23/2020 (246) [email or web address] Orig Print D/T: S: 11/23/2020 (249) Probe: PAGE 2 Signed ReportURINALYSIS [id number] 01:40:00 Test Item Value Reference Range Interpretation [...] code = AMORU) DRUGS OF ABUSE SCREEN [id number] 01:40:00 Test Item Value Reference Range Interpretation [...] ed for non-medical pur poses. CBC W/AUTO [id number] 01:27:00 Test Item Value Reference Range Interpretation [...] (test code NO = MDIFF) BASIC METABOLIC [id number] 02:51:00 Test Item Value Reference Range Interpretation [...] = CA) 9.5 mg/dL 8.0-10.5 N HCG [id number] 02:51:00 Test Item Value Reference Range Interpretation Comments HCG SERUM (test 71311.3 0 - 6 NOT P REGNANT > 6 code = HCG) SUGGESTIVE OF E TREVOR RISES TWO FOLD EVERY 2 DAYS; S UGGEST RECONFIRMING AF TER 2 DAYS. 150,000-200,[address] TRIMESTER 10,00 0 - 50,000 2ND & 3RD TRIME STERResults in [employer] ational Units/mL URINALYSIS [id number] 02:39:00 Test Item Value Reference Range Interpretation [...] MUCU) TRACE /LPF NONE SEEN CBC W/AUTO [id number] 02:21:00 Test Item Value Reference Range Interpretation [...] code NO = MDIFF) - PREG 1ST [id number] 02:19:00 [facility] [place]: NILA ROGERS : 2000 Sex: F Name: NILA ROGERS [facility] [place] : 2000 Age/S: 19 / F [address] [place] [address] Blvd Unit #: [id number] Loc: [place] [address] Phys: Nirav Nolan MD Acct: [id number] Dis Date: Status: REG ERPHONE #: [phone] Exam Date: 10/05/2020209 FAX #: [phone] Reason: VB EXAMS: CPT CODE: [id number] US PREG 1ST TRIMTR 17704 STUDY: - DUP AB/PEL/SC/LTD, - US PREG 1ST TRIMTR 10/05/2020 1:17 AM Ordering Physician: Nirav Nolan MD Patient Name: NILA ROGERS MR: [id number] : 2000; Age: 19 years y/o Female [...] 1 Signed Report (CONTINUED) Name: NILA ROGERS [facility] Madeline Coff[place] : 2000 Age/S: 19 / F [address] [place] [address] Blvd[address] #: [id number] Loc: [place] [address] Phys: Nirav Nolan MD Acct: [id number] Dis Date: Status: REG ER PHONE #: [phone] Exam Date: 10/05/2020209 FAX #: [phone] Reason: VB EXAMS: CPT CODE: [id number] US PREG 1ST TRIMTR 02402 <Continued> SL: TPAINTER-H at 218 Reported and signed by: Abdias Avila M.D. CC: Malu Tolentino MD; Nirav Nolan MD Technologist: Maryam Anderson RDMS(BR)(AB) Trnscb Date/Time: 10/05/2020 (218) [email or web address] Orig Print D/T: S: 10/05/2020 (221) Probe: PAGE 2 Signed Report- DUP AB/PEL/SC/[id number] 02:19:00 [facility] MADELINE COFFMANName: NILA ROGERS : 2000 Sex: F Name: NILA ROGERS [facility] Madeline Coffman : 2000 Age/S: 19 / F [address] [place] [address] Blvd Unit #: [id number] Loc: [place] [address] Phys: Nirav Nolan MD Acct: [id number] Dis Date: Status: REG ERPHONE #: [phone] Exam Date: 10/05/2020209 FAX #: [phone] Reason: see US PREG 1st TRIMTR EXAMS: CPT CODE: [id number] DUP AB/PEL/SC/LTD 95502 STUDY: - DUP AB/PEL/SC/LTD, - US PREG 1ST TRIMTR 10/05/2020 1:17 AM Ordering Physician: Nirav Nolan MD Patient Name: NILA ROGERS MR: [id number] : 2000; Age: 19 years y/o Female [...] 1 Signed Report (CONTINUED) Name: NILA ROGERS [facility] Madeline Coffman : 2000 Age/S: 19 / F [address] [place] [address] Unit #: [id number] Loc: [place] [address] Phys: Nirav Nolan MD Acct: [id number] Dis Date: Status: REG ER PHONE #: [phone] Exam Date: 10/05/2020209 FAX #: [phone] Reason: see US PREG 1st TRIMTR EXAMS: CPT CODE: [id number] DUP AB/PEL/SC/LTD 47053 <Continued> SL: TPAINTER-H at 0219 Reported and signed by: Abdias Avila M.D. CC: Malu Tolentino MD; Nirav Nolan MD Technologist: Maryam Anderson RDMS(BR)(AB) Trnscb Date/Time: 10/05/2020 (218) [email or web address] Orig Print D/T: S: 10/05/2020 (221) Probe: PAGE 2 Signed Report- DUP AB/PEL/SC/[id number] 22:07:00 [facility] 2000 Sex: F Name: NILA ROGERS [facility] : 2000 Age/S: 19 / F [address] [place] [address] Unit #: [id number] Loc: [place] [address] Phys: Cathy Bruce Acct: [id number] Dis Date: Status: REG ERPHONE #: [phone] Exam Date: 08/22/20202199 FAX #: [phone] Reason: see US PREG 1st TRIMTR EXAMS: CPT CODE: [id number] DUP AB/PEL/SC/LTD 44625 PROCEDURE: FIRST TRIMESTER ULTRASOUND INDICATION: 6 weeks [...] PAGE 1 Signed Report- US PREG 1ST [id number] 22:07:00[facility] MADELINE HYDE PARKName: NILA ROGERS : 2000 Sex: F Name: NILA ROGERS [facility] [place] : 2000 Age/S: 19 / F [address] [place] [address] Blvd Unit #: [id number] Loc: [place] [address] Phys: Cathy Bruce Acct: [id number] Dis Date: Status: REG ER PHONE #: [phone] Exam Date: 08/22/20202199 FAX #: [phone] Reason: 6w , cramping EXAMS: CPT CODE: [id number] US PREG 1ST TRIMTR 62936 PROCEDURE: FIRST TRIMESTER ULTRASOUND INDICATION: 6 weeks [...] Maryam Anderson RDMS(GOYO)(AB) Trnscb Date/Time: 08/22/2020 (2206) [id number] Orig Print D/T: S: 08/22/2020 (2209) Probe: PAGE 1 Signed ReportURINALYSIS [id number] 21:50:00 Test Item Value Reference Range Interpretation [...] MUCU) TRACE /LPF NONE SEEN BASIC METABOLIC [id number] 21:48:00 Test Item Value Reference Range Interpretation [...] patient ? YHOW MANY WEEKS? 6 WEEKSHCG [id number] 21:48:00 Test Item Value Reference Range Interpretation Comments HCG SERUM (test 20469.6 0 - 6 NOT P REGNANT > 6 code = HCG) SUGGESTIVE OF E TREVOR RISES TWO FOLD EVERY 2 DAYS; S UGGEST RECONFIRMING AF TER 2 DAYS. 150,000-200,[address] TRIMESTER 10,00 0 - 50,000 2ND & 3RD TRIME STERResults in [employer] ational Units/mL Is patient ? YHOW MANY WEEKS? 6 WEEKSUR HCG [id number] 21:47:00 Test Item Value Reference Range Interpretation Comments UR HCG QUAL (test code = HCGQLU) POSITIVE NEGATIVE CBC W/AUTO [id number] 21:33:00 Test Item Value Reference Range Interpretation [...] (test code NO = MDIFF) CBC W/AUTO [id number] 21:31:00 Test Item Value Reference Range Interpretation [...] REQUIRED (test code = MDIFF) Novel Coronavirus [id number] 14:50:00 Test Item Value Reference Range Interpretation Comments Novel Coronavirus 2018 Negative Negative Perfo rmed by: Vignesh Melara nCoV (test code = Laboratory 8562 Nidia ANGULOID19) Count Includes [facility], [address] [place], [place] [address] Phone: CLIA#: [id number] Does patient have the clinical criteria consistent with COVID-19? YIs the patient going to be discharged home? 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 Acct: [id number] Dis Date: Status: REG ERPHONE #: [phone] Exam Date: 02/16/2020 0134 FAX #: [phone] Reason: R lymphadenopathy, throat pain, fever EXAMS: CPT CODE: [id number] CT NECK W/CONTRAST 56458 EXAM: CT, CT NECK W/CONTRAST: 02/16/2020, 0132 [...] 1 Signed Report (CONTINUED) Name: NILA ROGERS [facility] [place] : 2000 Age/S: 19 / F [address] [place] [address] Blvd Unit #: [id number] Loc: [place] [address] Phys: Amilcar Pablo NP Acct: [id number] Dis Date: Status: REG ER PHONE #: [phone] Exam Date: 02/16/2020 0134 FAX #: [phone] Reason: R lymphadenopathy, throat pain, fever EXAMS: CPT CODE: [id number] CT NECK W/CONTRAST 65252 <Continued> unremarkable. OSSEOUS STRUCTURES: There are no [...] (0235) [id number] Orig Print D/T: S: 02/16/2020 (0239) PAGE 2 Signed ReportCOMPREHENSIVE METABOLIC [id number] 00:12:00 Test Item Value Reference Range Interpretation [...] IUnit/L 60-350 N code = ALKP) MONO [id number] 00:09:00 Test Item Value Reference Range Interpretation Comments MONO SCREEN (test code = MONO) NEGATIVE NEGATIVE URINALYSIS [id number] 00:02:00 Test Item Value Reference Range Interpretation [...] MUCU) 1+ /LPF NONE SEEN COMPREHENSIVE METABOLIC [id number] 00:02:00 Test Item Value Reference Range Interpretation [...] IUnit/L 60-350 code = ALKP) CBC W/AUTO [id number] 23:59:00 Test Item Value Reference Range Interpretation [...] (test NO code = MDIFF) UR HCG [id number] 23:56:00 Test Item Value Reference Range Interpretation Comments UR HCG QUAL (test code = HCGQLU) NEGATIVE NEGATIVE
[2022-04-13] MEDS ORDERED: ONDANSETRON 4 MG/2 ML VIAL ONE (00:41)
[2022-04-13] MEDS ORDERED: NA CHLORIDE 0.9% 1,000 ML ONE (00:41)
[2022-04-13 00:58] LABS: Urine Blood Negative (Negative); Urine Glucose Negative (Negative); Urine Protein Negative (Negative)
[2022-04-13 01:04] LABS: Absolute Lymphocytes (CBC) 2.9 K/uL (0.7-4.9); Hematocrit 33.1 % (36.0-45.0); Lymphocytes % 34.2 % (15.3-44.8); MPV 8.8 fL (7.6-11.3); RBC Red Blood Cell Count 3.89 M/uL (3.86-4.86)
[2022-04-13 01:18] LABS: Urine Bacteria <20 /HPF (<20); Urine RBC <5 /HPF (None Seen)
[2022-04-13 01:18] LABS: Albumin 3.5 g/dL (3.4-5.0); Bilirubin Total 0.1 mg/dL (0.2-1.0); Magnesium 1.8 mg/dL (1.8-2.4); Potassium 3.3 mmol/L (3.5-5.1)
--- NOTE | 2022-04-13 01:42 | EDPHYS ---
Physician Documentation [facility] Name: Hilaria Rogers Age: 21 yrs Sex: Female : 2000 Arrival Date: 04/12/2022 Time: 22:50 Bed 7 Private MD: ED Physician Julia Arnett HPI: 04/12 23:50 This 21 yrs old Female presents to ER via Ambulatory with complaints of Constipation, cp Abdominal Pain. 23:50 Onset: The symptoms/episode began/occurred today. Associated signs and symptoms: cp Pertinent positives: constipation, vomiting, nausea. 23:50 The estimated gestational age is 8 weeks. cp 23:50 Associated signs and symptoms: Pertinent negatives: fever, vaginal bleeding, vaginal cp discharge. 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 - Social history:: Smoking status: unknown. ROS: 23:55 Constitutional: Negative for body aches, chills, fever, poor PO intake. cp 23:55 Cardiovascular: Negative for chest pain, edema, palpitations. cp 23:55 Respiratory: Negative for cough, shortness of breath, wheezing. 23:55 Abdomen/GI: Positive for abdominal pain, nausea and vomiting, constipation, anorexia, of the right lower quadrant and left lower quadrant, Negative for diarrhea, hematemesis. 23:55 Eyes: Negative for injury, pain, redness, and discharge. cp 23:55 ENT: Negative for drainage from ear(s), ear pain, sore throat, difficulty swallowing, difficulty handling secretions. 23:55 : Negative for urinary symptoms, flank pain, vaginal bleeding. 23:55 Neuro: Negative for altered mental status, headache, weakness. 23:55 All other systems are negative. Exam: 23:59 Constitutional: The patient appears in no acute distress, alert, awake, non-toxic, well cp developed, well nourished. 23:59 Head/Face: Normocephalic, atraumatic. cp 23:59 Eyes: Periorbital structures: appear normal, Conjunctiva: normal, no exudate, no injection, Sclera: no appreciated abnormality, Lids and lashes: appear normal, bilaterally. 23:59 ENT: External ear(s): are unremarkable, Nose: is normal, Mouth: Lips: moist, Oral mucosa: pink and intact, moist, Posterior pharynx: Airway: no evidence of obstruction, patent. 23:59 Chest/axilla: Inspection: normal, Palpation: is normal, no crepitus, no tenderness. 23:59 Cardiovascular: Rate: normal, Rhythm: regular. 23:59 Respiratory: the patient does not display signs of respiratory distress, Respirations: normal, no use of accessory muscles, no retractions, labored breathing, is not present, Breath sounds: are clear throughout, no decreased breath sounds, no stridor, no wheezing. 23:59 Abdomen/GI: Inspection: abdomen appears normal, Bowel sounds: active, all quadrants, Palpation: soft, in all quadrants, mild abdominal tenderness, in the right lower quadrant and left lower quadrant, rebound tenderness, is not appreciated, involuntary guarding, is not appreciated. 23:59 Back: pain, is absent, ROM is normal. 23:59 Neuro: Orientation: to person, place \T\ time. Mentation: is normal. Vital Signs: 23:08 BP 113 / 67; Pulse 89; Resp 16; Temp 98.1; Pulse Ox 100% on R/A; Weight 66.22 kg; hb Height 5 ft. 2 in. (157.48 cm); Pain 7/10; 04/13 00:00 BP 101 / 47; Pulse 89; Resp 17 S; Pulse Ox 99% on R/A; ha1 01:15 BP 122 / 66; Pulse 82; Resp 16 S; Pulse Ox 99% on R/A; ha1 04/12 23:08 Body Mass Index 26.70 (66.22 kg, 157.48 cm) hb MDM: 04/12 23:44 Patient medically screened. cp 04/13 00:00 Differential diagnosis: UTI, dehydration, electrolyte abnormality. cp 01:40 Data reviewed: vital signs, nurses notes, lab test result(s). cp 01:40 Counseling: I had a detailed discussion with the patient and/or guardian regarding: the cp historical points, exam findings, and any diagnostic results supporting the discharge/admit diagnosis, lab results, the need for outpatient follow up, an OB/Gyne specialist, to return to the emergency department if symptoms worsen or persist or if there are any questions or concerns that arise at home. Response to treatment: the patient's symptoms have markedly improved after treatment, and as a result, I will discharge patient. 04/13 00:14 Order name: CBC with Diff 04/13 00:14 Order name: CMP 04/13 00:14 Order name: Lipase 04/13 00:14 Order name: Urine Microscopic Only; Complete Time: 01:34 04/13 01:35 Interpretation: Reviewed. 04/13 00:14 Order name: Magnesium 04/13 00:56 Order name: Comprehensive Metabolic Panel; Complete Time: 01:34 EDWY 04/13 01:34 Interpretation: Normal except: K 3.3; CL 109; CRE 0.52; AST 6; A/G 1.0; BILIT 0.1. 04/13 00:56 Order name: Magnesium; Complete Time: 01:34 EDWY 04/13 00:56 Order name: Lipase; Complete Time: 01:34 EDWY 04/13 00:56 Order name: CBC with Automated Diff; Complete Time: 01:34 EDWY 04/13 01:34 Interpretation: Normal except: HGB 11.0; HCT 33.1. 04/13 00:58 Order name: Urine --Ancillary (enter results) 04/13 00:59 Order name: Urine Dipstick-Ancillary; Complete Time: 01:34 EDWY 04/13 00:14 Order name: IV Saline Lock; Complete Time: 00:45 cp 04/13 00:14 Order name: Labs collected and sent; Complete Time: 00:45 04/13 00:14 Order name: Urine Dipstick-Ancillary (obtain specimen); Complete Time: 00:58 cp Administered Medications: 00:50 Drug: NS 0.9% 1000 ml Route: IV; Rate: 1 bolus; Site: right antecubital; ll3 02:18 Follow up: Response: No adverse reaction; IV Status: Completed infusion; IV Intake: ha1 1000ml 00:50 Drug: Zofran (Ondansetron) 4 mg Route: IVP; Site: right antecubital; ll3 01:30 Follow up: Response: No adverse reaction ha1 02:10 Drug: Potassium Effervescent Tablet 50 mEq Route: PO; ha1 02:17 Follow up: Response: No adverse reaction ha1 02:10 Drug: Tylenol 1000 mg Route: PO; ha1 02:17 Follow up: Response: No adverse reaction ha1 Disposition: 19:41 STAFF ATTESTATION STATEMENT: I was immediately available onsite in the emergency sd2 department for consultation in the care of this patient. I did not see or examine this patient. Julia Arnett MD. Disposition Summary: 04/13/22 01:41 Discharge Ordered Location: Home cp Problem: new cp Symptoms: have improved cp Condition: Stable cp Diagnosis - Other specified related conditions, first trimester cp - Nausea with vomiting, unspecified cp - Constipation cp Followup: cp - With: Private Physician - When: 1 - 2 days - Reason: Worsening of condition Discharge Instructions: - Discharge Summary Sheet cp - Abdominal Pain During cp - Nausea and Vomiting, Adult cp - First Trimester of cp Forms: - Medication Reconciliation Form cp - Thank You Letter cp - Antibiotic Education cp - Prescription Opioid Use cp Prescriptions: - Miralax - take 1 application by ORAL route once daily As needed; 1 bottle; Refills: 0, cp Product Selection Permitted - Zofran 4 mg Oral Tablet - take 1 tablet by ORAL route every 12 hours As needed; 20 tablet; Refills: 0, cp Product Selection Permitted Signatures: Dispatcher [employer] EDMS Gabriel Centeno PA PA cp Marci Lombardo, RN Keila Marin RN RN 3 Julia Arnett MD MD [facility] Deisi Guzman RN RN ha1
--- NOTE | 2022-04-13 01:42 | ER ---
Nurse's Notes [facility] Name: Hilaria Rogers Age: 21 yrs Sex: Female : 2000 Arrival Date: 04/12/2022 Time: 22:50 Bed 7 Private MD: Diagnosis: Other specified related conditions, first trimester;Nausea with vomiting, unspecified;Constipation Presentation: 04/12 23:08 Chief complaint: Constipated x 5 days, headache and nausea today. Pt is 8 weeks hb , DANY 11/20. Coronavirus screen: At this time, the client does not indicate any symptoms associated with coronavirus-19. Ebola Screen: No symptoms or risks identified at this time. Risk Assessment: Do you want to hurt yourself or someone else? Patient reports no desire to harm self or others. Onset of symptoms was April 07, 2022. 23:08 Method Of Arrival: Ambulatory hb 23:08 Acuity: CONCHITA 3 hb 04/13 02:15 Initial Sepsis Screen: Does the patient meet any 2 criteria? No. Patient's initial ha1 sepsis screen is negative. Does the patient have a suspected source of infection? No. Patient's initial sepsis screen is negative. Triage Assessment: 02:28 General: Appears in no apparent distress. Behavior is calm, cooperative. 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 - Social history:: Smoking status: unknown. Screenin/26 01:00 Abuse screen: Denies threats or abuse. Denies injuries from another. ha1 01:00 Nutritional screening: No deficits noted. Tuberculosis screening: No symptoms or risk ha1 factors identified. Fall Risk None identified. Assessment: 00:00 Pain: Complains of pain in abdomen Pain does not radiate. Pain currently is 6 out of 10 ha1 on a pain scale. Is intermittent. Neuro: Level of Consciousness is awake, alert, obeys commands, Oriented to person, place, time, situation. 00:00 Cardiovascular: Patient's skin is warm and dry. Respiratory: Airway is patent Trachea ha1 midline Respiratory effort is even, unlabored, Respiratory pattern is regular, symmetrical. GI: Abdomen is flat, non-distended, Bowel sounds present X 4 quads. Abd is soft and non tender X 4 quads. : No deficits noted. EENT: No deficits noted. No signs and/or symptoms were reported regarding the EENT system. Derm: Skin is pink, warm \T\ dry. 01:15 Reassessment: Patient and/or family updated on plan of care and expected duration. Pain ha1 level reassessed. Patient is alert, oriented x 3, equal unlabored respirations, skin warm/dry/pink. Patient states feeling better. Vital Signs: 04/12 23:08 BP 113 / 67; Pulse 89; Resp 16; Temp 98.1; Pulse Ox 100% on R/A; Weight 66.22 kg; hb Height 5 ft. 2 in. (157.48 cm); Pain 7/10; 04/13 00:00 BP 101 / 47; Pulse 89; Resp 17 S; Pulse Ox 99% on R/A; ha1 01:15 BP 122 / 66; Pulse 82; Resp 16 S; Pulse Ox 99% on R/A; ha1 04/12 23:08 Body Mass Index 26.70 (66.22 kg, 157.48 cm) hb ED Course: 04/12 22:50 Patient arrived in ED. ja2 23:03 Gabriel Centeno PA is PHCP. cp 23:03 Jluia Arnett MD is Attending Physician. cp 23:10 Triage completed. hb 23:10 Arm band placed on. hb 04/13 00:07 Deisi Guzman, RN is Primary Nurse. ha1 00:50 Initial lab(s) drawn, by me, sent to lab. Inserted saline lock: 22 gauge in right ll3 antecubital area, using aseptic technique. Blood collected. 01:00 Patient has correct armband on for positive identification. Bed in low position. Call ha1 light in reach. Side rails up X 1. 02:15 IV discontinued, intact, bleeding controlled, No redness/swelling at site. Pressure ha1 dressing applied. 02:29 No provider procedures requiring assistance completed. ha1 Administered Medications: 00:50 Drug: NS 0.9% 1000 ml Route: IV; Rate: 1 bolus; Site: right antecubital; ll3 02:18 Follow up: Response: No adverse reaction; IV Status: Completed infusion; IV Intake: ha1 1000ml 00:50 Drug: Zofran (Ondansetron) 4 mg Route: IVP; Site: right antecubital; ll3 01:30 Follow up: Response: No adverse reaction ha1 02:10 Drug: Potassium Effervescent Tablet 50 mEq Route: PO; ha1 02:17 Follow up: Response: No adverse reaction ha1 02:10 Drug: Tylenol 1000 mg Route: PO; ha1 02:17 Follow up: Response: No adverse reaction ha1 Medication: 02:15 VIS not applicable for this client. ha1 Intake: 02:18 IV: 1000ml; Total: 1000ml. ha1 Outcome: 01:41 Discharge ordered by . cp 02:20 Patient left the ED. ha1 02:29 Discharged to home ambulatory, with family. ha1 02:29 Condition: stable 02:29 Discharge instructions given to patient, family, Instructed on discharge instructions, follow up and referral plans. medication usage, Demonstrated understanding of instructions, follow-up care, medications, Prescriptions given X 2. Signatures: Gabriel Centeno, LORIE PA cp Marci Lombardo, RN RN Sandra Mortensen Lynsea, RN RN 3 Deisi Guzman RN RN 1
[2022-04-13] MEDS ORDERED: POTASSIUM 25 MEQ EFFERV TAB ONE (02:21)
[2022-04-13] MEDS ORDERED: ACETAMINOPHEN 500 MG TAB ONE (02:21)
[2022-04-15 04:24] VITALS: O2SAT 99
[2022-04-15 04:36] VITALS: TEMP 98.1
[2022-04-15 05:00] VITALS: BP 122/66
== END 2022-04-13 02:20 | disposition home or self-care (01) ==
LOC: ER 22:46
DX: O21.9 Vomiting of pregnancy, unspecified (principal); O99.611 Diseases of the digestive system complicating pregnancy, first trimester; K59.00 Constipation, unspecified; Z3A.08 8 weeks gestation of pregnancy
CPT/HCPCS: 96361; 85025; 36415; 83735; 81025; 83690; 80053; 96374; 99284; J7030; J2405; 81003; 81015

== ENCOUNTER 2022-05-29 11:20 | Emergency (ER) | payer OTHER ==
--- OUTSIDE RECORDS SUMMARY | 2022-05-29 11:24 | XMS REPORT | Continuity of Care Document ---
:2000 Author Organization [facility] t Address [address] [place]. [address] [place] [address] Care Team Providers Name Role Phone Frederick Durán MD Primary Care Physician Brittnee Ramirez Attending Clinician Unavailable ANTONIA PIKE Attending Clinician Unavailable Shahzad PICKERING, Antonia Garzon Attending Clinician Ghanshyam Bragg Attending Clinician Unavailable , Osvaldo Evangelista Attending Clinician Unavailable Frederick Durán MD Attending Clinician FREDERICK DURÁN Attending Clinician Unavailable AR MERCER Attending Clinician Unavailable Debra PICKERING, Ar Attending Clinician Kishor Bishop Attending Clinician Unavailable ELINA ROME Attending Clinician Unavailable Amauri RUSS, Madhavi Delcid Attending Clinician MADHAVI ROMAN Attending Clinician Unavailable Luis Burciaga Attending Clinician Unavailable Effie Solitario Attending Clinician Unavailable Dottie Chavez Attending Clinician Unavailable Miladis MIRELES, Nathalia Cagle Attending Clinician Ny Khan MD Attending Clinician Olivier MALT HOUSE OPERATOR, Aneta Esparza Attending Clinician Unknown, Attending Attending Clinician Unavailable UNKNOWN, ATTENDING Attending Clinician Unavailable Pearl Chavez Attending Clinician Unavailable Tashia Noble RN Attending Clinician Unavailable Berhane CHAVEZ, Lily Hummel Attending Clinician Maryellen PICKERING, Lydia Hilton Attending Clinician Doctor Unassigned, [place] Attending Clinician Unavailable Liberty Cormier Attending Clinician LIBERTY CAMP Attending Clinician Unavailable Wiliam MIRELES, Antonia Attending Clinician Kassidy Barnes Attending Clinician Wild PICKERING, Elina Pandey Attending Clinician [phone] KASSIDY ARENAS Attending Clinician Unavailable REJI SOTO Attending Clinician Unavailable Ivet PICKERING, Aiden Conde Attending Clinician SOSA ADAMES Attending Clinician Unavailable Sosa Adames MD Attending Clinician Santiago COLE, Sandra Hilton Attending Clinician Unavailable Ashley Avendano DO Attending Clinician Orquidea PICKERING, Mike Jaffe Attending Clinician [phone] Sujata Nixon Attending Clinician [phone] [place] KHAN Admitting Clinician Unavailable Brittnee Ramirez Admitting Clinician Unavailable Elina Rome Admitting Clinician Unavailable Emily Hurtado Admitting Clinician Unavailable ANTONIA PIKE Admitting Clinician Unavailable Luis Burciaga Admitting Clinician Unavailable Effie Solitario Admitting Clinician Unavailable Physician, No Primary or Family Admitting Clinician UnavailDottie Mitchell Admitting Clinician Unavailable Ny Khan MD Admitting Clinician Pearl Chavez Admitting Clinician Unavailable SOSA ADAMES Admitting Clinician Unavailable Payers Payer Name Policy Type Policy Number Effective Date Expiration Date S [facility] [id number] 2020 00:00:00 [facility]LY [facility] [id number] 2021 00:00:00 Problems Condition Condition Condition Status Onset Resolution Last Treating Co mments Source Name Details Category Date Date Treatment Clinician Date Anxiety Anxiety Disease [facility] Depression Disease Active U nivers ity [facility] Allergies, Adverse Reactions, Alerts Allergy Allergy Status Severity Reaction(s) Onset Inactive Treating Comm ents Source Name Type Date Date Clinician No Known DA Active U [facility] Allergie 5-08 Clear s 00:00: [place] 00 [facility] No Known DA Active U [facility] Allergie 5-08 Clear s 00:00: [place] 00 [facility] Malic Drug Active Swelling Univers Acid Allergy 6-08 ity of 00:00: [address] MALIC DA Active SV TONGUE [facility] ACID SWELLING, 608 Clear THROAT 00:00: [place] CLOSING 00 [facility] Sour Propensi Active Anaphylaxis Sour Uni vers [place] ty to 4-30 flavoring ity of adverse 00:00: on all [place] reaction 00 [facility] Social History Social Habit Start Date Stop Date Quantity Comments Source Exposure to 2022-03-05 2022-03-15 Not sure University SARS-CoV-2 00:00:00 17:14:00 [facility] (event) Branch Alcohol intake 2022-02-25 2022-02-25 Ex-drinker University 00:00:00 00:00:00 (finding) [facility] Tobacco use and 2022-02-25 2022-02-25 Smokeless tobacco Un iversity of exposure 00:00:00 00:00:00 non-user [facility] Sex Assigned At 2000 2002 Universit y of 00:00:00 00:00:00 [facility] Smoking Status Start Date Stop Date Source Never smoked tobacco [facility] Medications Ordered Filled Start Stop Current Ordering Indication Dosage Frequency Signature Comments Components Source Medication Medication Date Date Medication? Clinician (SIG) Name Name FLUTICASONE 2020-07 Yes [id number] SPRAY 1 Univers PROPIONATE 2-02 SPRAY INTO ity of 50 00:00: EACH [place] mcg/actuati 00 NOSTRIL Medic al on nasal EVERY DAY Branch spray EPINEPHrine 2019-07 Yes [id number] INJECT 0.3 Univers 0.3 mg/0.3 1-30 ML BY ity of mL 00:00: INTRAMUSCU [place] injection 00 LAR ROUTE Medic al ONCE NOW [place] FOR 1 DOSE. Immunizations Ordered Immunization Filled Immunization Date Status Commen ts Source Name Name Meningococcal 2019-02-23 Completed University of Polysaccharide 00:00:00 [facility] thomas (groups A, C, Y and Branc h W-135) conjugate vaccine (MCV4P) DTP 2005-01-21 Completed University of 00:00:00 [facility] HIB 3 Dose Schedule 2005-01-21 Completed Unive rsity of 00:00:00 [facility] HEPATITIS A 2005-01-21 Completed University of 00:00:00 [facility] Pneumococcal 7 2005-01-21 Completed University of Conjugate, PCV7 00:00:00 [facility] ical (Prevnar7) Branch MMR 2003-12-25 Completed University of 00:00:00 [facility] Polio (IPV/OPV) 2003-12-25 Completed Universit y of 00:00:00 [facility] Pneumococcal 7 2003-12-25 Completed University of Conjugate, PCV7 00:00:00 [facility] ical (Prevnar7) Branch DTP 2003-06-19 Completed University of 00:00:00 [facility] HIB 3 Dose Schedule 2003-06-19 Completed Unive rsity of 00:00:00 [facility] Hep B, Adol or Pedi 2003-06-19 Completed Unive rsity of Dosage 00:00:00 [facility] Polio (IPV/OPV) 2003-06-19 Completed Universit y of 00:00:00 [facility] Hep B, Adol or Pedi 2002 Completed Unive rsity of Dosage 00:00:00 [facility] Procedures Procedure Date / Time Performed Performing Clinician Gisele rosario [id number] 2021-03-26 00:00:00 MAXBA [facility] [id number] 2021-03-26 00:00:00 MAXBA [facility] Encounters Start End Encounter Admission Attending Care Care Encounter Source Date/Time Date/Time Type Type Clinicians Facility Department ID 2021-05-19 Outpatient X [facility] LAUREN [id number] Univers 04:10:53 ity of [facility] 2021-05-19 Emergency [facility] [id number] Univers 04:10:48 ity [facility] 2021-05-18 Emergency [facility] [id number] Univers 12:59:52 ity of [facility] 2021-05-18 Emergency [facility] [id number] Univers 03:01:47 [facility] 2020-11-23 Inpatient Ashley, HCACL HC[facility]L [id number] [facility] 00:57:29 Brittnee [facility] 2020-10-05 Inpatient HCACL HCACL [id number] [facility] 01:43:54 61 [facility] 2020-08-22 Inpatient HCACL KAELA [id number] [facility] 20:18:00 05 [facility] 2020-02-15 Inpatient HCACL KAELA [id number] [facility] 22:49:00 35 [facility] 2022-03-20 2022-03-20 Outpatient R SHAHZAD [facility] [id number] Univers 14:10:00 14:10:00 ANTONIA domínguez [facility] 2022-03-20 2022-03-20 Telephone MARISOL Pike [id number] Univers 00:00:00 00:00:00 Antonia P PEDIATRIC 350.1.13.10 ity [place] [id number] [address] 2022-03-16 2022-03-16 Outpatient R SHAHZAD [facility] [id number] Univers 14:10:00 14:10:00 [facility] 2022-03-13 2022-03-13 Outpatient R SHAHZAD [facility] [id number] Univers 13:30:00 13:30:00 [facility] [place] 2022-03-13 2022-03-13 Outpatient R SHAHZAD [facility] [id number] Univers 11:10:00 11:10:00 [facility] [place] 2022-03-06 2022-03-06 Emergency EM Oaleshiabrandeemarlenenatanael, HCACL AERS [id number] [facility] 15:06:00 16:12:00 Oluwadolapo 45 Cl [facility] 2022-03-04 2022-03-04 Telephone MARISOL Pike [id number] Univers 00:00:00 00:00:00 Antonia P PEDIATRIC 350.1.13.10 it[place] [id number] [address] 2022-03-03 2022-03-03 Telephone MARISOL Pike [id number] Univers 00:00:00 00:00:00 Antonia P PEDIATRIC 350.1.13.10 ity [place] [id number] [address] 2022-03-02 2022-03-02 Outpatient R SHAHZAD [facility] [id number] Univers 17:43:24 23:59:00 [facility] catrachita [facility] 2022-03-02 2022-03-02 Outpatient R SHAHZAD [facility] [id number] Univers 17:43:24 23:59:00 [facility] 2022-03-02 2022-03-02 [facility] BEULAH Pike [id number] Univers 17:30:00 23:59:00 Encounter Antonia P Y HEALTH 350.1.13.10 ity of CL[place]ICS [place]2.[place] [id number] 048656 Branch 2022-02-26 2022-02-26 Nurse Nurse, Osvaldo DAMON 1.2.84 0.114 [id number] Univers 14:50:00 15:10:00 Visit Frederick Durán PEDIATRIC 350.1.13.10 it[place] [id number] [facility] 314 [facility] 2022-02-26 2022-02-26 Outpatient R FREDERICK DURÁN [facility] [id number] Univers 14:50:00 14:50:00 [facility] 2022-02-25 2022-02-25 Outpatient R SHAHZAD [facility] [id number] Univers 14:45:00 23:59:00 [facility] [place] 2022-02-25 2022-02-25 [facility] MARISOL Pike [id number] Univers 14:45:00 23:59:00 Encounter Antonia P PEDIATRIC 350.1.13.10 [place] [id number] [address] 2022-02-25 2022-02-25 Outpatient R SHAHZAD [facility] [id number] Univers 13:50:00 15:29:57 [facility] [place] 2022-02-25 2022-02-25 Office MARISOL Pike [id number] [id number] Univers 13:50:00 15:29:57 Visit Antonia P PEDIATRIC 350.1.13.10 ity [place] [id number] [facility] 225 [facility] 2022-02-23 2022-02-23 [facility] [id number] Univers 15:50:00 15:50:00 [facility] [place] 2022-02-12 2022-02-12 Emergency X DEBRA [facility] ERT [id number] Univers 21:31:00 22:34:00 [facility] 2022-02-12 2022-02-12 Emergency Debra [facility] 1.2.840.114 [id number] Univers 21:31:00 22:34:00 [facility] 350.1.13.10 it y of [place] [id number] [address] ([facility]) 2021-11-11 2021-11-11 Emergency EM Bishop, [facility] AERS [id number] [facility] 00:16:00 00:55:00 Kishor 36 [facility] 2021-11-04 2021-11-04 Outpatient D[facility] [id number] Univers 15:30:00 15:30:00 ELINA ity o f [facility] 2021-08-08 2021-08-08 Emergency EM Mahsa, [facility] AERS [id number] [facility] 22:06:00 22:30:00 Oluwadolapo 00 Cl [facility] 2021-06-13 2021-06-13 Refill Madhavi Roman 1.2.840.114 [id number] Univers 00:00:00 00:00:00 Ali PEDIATRIC 350.1.13.10 [place] [id number] [address] 2021-05-12 2021-05-12 Office Madhavi Roman 1.2.840.114 [id number] Univers 13:41:54 14:13:40 Visit Ali Pediatric 350.1.13.10 ity [place] [id number] [address] 2021-05-12 2021-05-12 Outpatient MADHAVI MCNAIR [facility] [id number] Univers 13:30:00 13:30:00 ity [facility] 2021-03-25 2021-03-28 Inpatient EL Patrica, HCACL OBPP [id number] [facility] 14:56:00 15:32:00 Luis [facility] 2021-03-12 2021-03-13 Emergency EM Billy HCACL OLGA [id number] [facility] 21:07:00 01:05:00 Puckly, 24 [facility] 2021-03-01 2021-03-01 Emergency EM Patrica, HCACL OLGA [id number] [facility] 05:33:00 09:00:00 Luis 85 [facility] 2021-02-17 2021-02-17 Emergency EM Billy HCACL OLGA [id number] [facility] 15:17:00 16:47:00 Puckly, 82 [facility] 2021-02-12 2021-02-12 Emergency EM Billy HCACL OLGA [id number] [facility] 19:14:00 22:29:00 Puckly, 18 [facility] 2021-01-29 2021-01-29 Emergency EM Bhkaylyn, HCACL OLGA [id number] [facility] 02:30:00 03:50:00 Dottie 33 [facility] 2021-01-13 2021-01-13 Emergency MiladisNathalia [facility] 1.2.840 .114 [id number] 01:18:00 02:30:00 FishTerry[place] 350.1.13.[address] [place] [address] [place] [address] [id number] [facility] 2021-01-13 2021-01-13 Emergency Nicolas Reddingroseanne Cagle [facility] 1.2.840 .114 [id number] [facility] 01:18:00 02:30:00 [place] 350.1.13.10 ity [facility] 4.2.7.2.686 [facility] [id number] [facility] 083 Branch 2021-01-11 2021-01-11 Urgent Grow, Marisol 1.2.840.114 [id number] 17:51:24 18:25:45 Care Aneta Pediatric 350.1.13.10 Vilma [facility] 4.2.7.2.686 Adult [id number] Primary [facility] 2021-01-11 2021-01-11 Urgent Grow, Aneta Damon 1.2.840 .114 [id number] Univers 17:51:24 18:25:45 Care Unknown, Attending Pediatric 350.1.13. 10 ity [facility] 4[place]2.7.2.[place] [id number] [facility] Primary 370 [facility] 2021-01-11 2021-01-11 Outpatient R UNKNOWN, [facility] [id number] Univers 18:00:00 18:00:00 ATTENDING ity of [facility] 2020-12-25 2020-12-25 Emergency EM Scott, [facility] OLGA [id number] [facility] 15:08:00 18:26:00 Pearl 03 [facility] 2020-11-23 2020-11-23 Emergency EM Ashley, [facility] OLGA [id number] [facility] 00:02:00 02:58:00 Brittnee 52 [facility] 2020-11-01 2020-11-01 Letter NICOLAS Noble 1.2.840.114 [id number] Univers 00:00:00 00:00:00 (Out) Tashia SHELTON 350.1.13.10 it y [facility] 4.2.7.2.686 [place] [phone] [place] [address] Branch 2020-11-01 2020-11-01 NICOLAS Calderon 1.2.840.114 [id number] 00:00:00 00:00:00 (Out) Tashia SHELTON 350.1.13.10 [facility] 4.2.7.2.686 [id number] 2020-10-30 2020-10-31 Emergency [facility] 1.2.559.428 [id number] [facility] 22:11:00 00:46:00 Lily Bauman 350.1.13.10 ity [facility] 4.2.7.2.[place] [id number] [facility] 084 Branch 2020-10-30 2020-10-31 Emergency [facility] 1.2.609.477 [id number] 22:11:00 00:46:00 Lily Bauman 350.1.13.10 [place] 4.2.7.2.686 [place] [id number] 2020-10-26 2020-10-26 Urgent GrowAneta 1.2.840 .114 [id number] Univers 18:33:25 19:03:11 Care Unknown, Attending Pediatric 350.1.13. 10 ity of [place] [id number] [place] [address] [facility] 2020-10-26 2020-10-26 Urgent GrowMarisol 1.2.840.114 [id number] 18:33:25 19:03:11 Care Aneta Pediatric 350.1.13.10 Vilma s and 4.2.7.2.686 Adult [id number] Primary [address] [place] [address] Clinic 2020-10-26 2020-10-26 Outpatient R UNKNOWN, [facility] [id number] Univers 19:00:00 19:00:00 ATTENDING ity of [facility] 2020-09-18 2020-09-19 Emergency [facility] 1.2.681.915 [id number] Univers 23:47:00 01:47:00 Lydia Hilton Merna 350.1.13.10 ity of [place] 4.2.7.2.686 [place] [id number] [place] 517714 Branch 2020-09-18 2020-09-19 Emergency [facility] 1.2.593.059 [id number] 23:47:00 01:47:00 Lydia Hilton Merna 350.1.13.10 [place] 4.2.7.2.686 [place] [id number] 2020-09-18 2020-09-18 Orders Doctor VALENZUELA 1.2.840.114 [id number] Univers 00:00:00 00:00:00 Only Unassigned, NIKITA 350.1.13.10 ity of [place] [facility] 4.2.7.2.686 [place] [id number] [place] [address] Branch 2020-09-18 2020-09-18 Orders Doctor VALENZUELA 1.2.840.114 [id number] 00:00:00 00:00:00 Only Unassigned, NIKITA 350.1.13.10 [place] [facility] 4.2.7.2.686 [id number] 2020-08-22 2020-08-22 Office Madhavi Roman 1.2.840.114 [id number] Univers 15:52:31 16:12:31 Visit Ali Pediatric 350.1.13.10 ity of [place].2.[place] [id number] [place] [address] Branch [facility] 2020-08-22 2020-08-22 Office Madhavi Roman 1.2.840.114 [id number] 15:52:31 16:12:31 Visit Ali Pediatric 350.1.13.10 s and 4.2.7.2.686 Adult [id number] [address] 2020-08-22 2020-08-22 Outpatient MADHAVI MCNAIR [facility] [id number] Univers 16:00:00 16:00:00 ity [facility] 2020-08-22 2020-08-22 Outpatient MADHAVI MCNAIR [facility] [id number] Univers 13:40:00 13:40:00 ity [facility] 2020-08-13 2020-08-13 Telephone Marisol Camp 1.2.840.114 [id number] Univers 00:00:00 00:00:00 [facility] 350.1.13.10 ity of [place].2.[place] [id number] [address] 2020-08-09 2020-08-09 Telephone Marisol Camp 1.2.840.114 [id number] Univers 00:00:00 00:00:00 [facility] 350.1.13.10 ity of [place]2.[place].2.[place] [id number] [address] 2020-08-09 2020-08-09 Telephone Marisol Camp 1.2.840.114 [id number] Univers 00:00:00 00:00:00 [facility] 350.1.13.10 ity of [place]2.[place].2.[place] [id number] [facility] 370 [facility] 2020-08-08 2020-08-08 Office Marisol Camp 1.2.840.114 [id number] Univers 14:46:51 16:51:17 Visit [facility] 350.1.13.10 ity of [place] and [place].2.[place].2.[place] [id number] [address] 2020-08-08 2020-08-08 Outpatient R ZOË [facility] [id number] Univers 15:00:00 15:00:00 LIBERTY ity [facility] 2020-07-03 2020-07-03 Orders Doctor NICOLAS 1.2.840.114 [id number] Univers 00:00:00 00:00:00 Only Unassigned, NIKITA 350.1.13.10 ity of [place] [facility] 4.2.7.2.686 [place] [id number] [place] [address] Branch 2020-06-17 2020-06-17 Office Marisol Swain 1.2.840.114 [id number] Univers 13:35:31 14:15:17 Visit Antonia Pediatric 350.1.13.10 ity of [place] and 4.2.7.2.[place] [id number] [facility] 314 [facility] 2020-06-17 2020-06-17 Outpatient R WILD [facility] [id number] Univers 13:40:00 13:40:00 ELINA ity o f [facility] 2020-05-18 2020-05-18 RefMarisol Palacios 1.2.840.114 [id number] Univers 00:00:00 00:00:00 Kassidy J Pediatric 350.1.13.10 ity of [place] and [place].2.[place] [id number] [address] 2020-05-14 2020-05-14 Telephone Marisol Rome 1.2.840.114 [id number] Univers 00:00:00 00:00:00 Elina Pediatric 350.1.13.10 ity of [place] and 4.2.7.2.686 [place] Adult [id number] [address] 2020-05-06 2020-05-06 Telephone Marisol Rome 1.2.840.114 [id number] Univers 00:00:00 00:00:00 Elina Pediatric 350.1.13.10 ity of [place] and 4.2.7.2.686 [place] Adult [id number] [address] 2020-04-26 2020-04-26 Office Marisol Arenas 1.2.840.114 [id number] Univers 15:36:43 15:56:43 Visit Kassidy J Pediatric 350.1.13.10 ity of [place] and 4[place].2.[place] [id number] [address] 2020-04-26 2020-04-26 [facility] [id number] Univers 15:40:00 15:40:00 KASSIDY domínguez [facility] 2020-04-15 2020-04-15 Refill Marisol Camp 1.2.840.114 [id number] Univers 00:00:00 00:00:00 [facility] 350.1.13.10 ity of [place] and 4[place]7.2.[place] [id number] [address] 2020-01-03 2020-01-03 Outpatient R BRITTANY, [facility] [id number] Univers 14:40:00 14:40:00 REJI domínguez [facility] 2019-10-27 2019-10-27 Telephone Aiden Cooney 1.2.840.114 [id number] Univers 00:00:00 00:00:00 Elton Pediatric 350.1.13.10 ity of [place] and 4[place]2.[place].2.[place] [id number] [address] 2019-10-18 2019-10-19 Emergency X ZACARIAS, [facility] ERT [id number] Univers 23:49:28 02:20:00 SOSA domínguez [facility] 2019-10-18 2019-10-19 Emergency [facility] 1.2.840.114 [id number] Univers 23:49:28 02:20:00 Sosa [facility] 350.1.13.10 it y of [facility] 4.2.7.2.686 [place] [id number] [address] ([facility]) 2019-10-18 2019-10-18 Nurse NICOLAS Henderson 1.2.840.114 [id number] Univers 00:00:00 00:00:00 Triage Sandra SHELTON 350.1.13.10 ity of [facility] 4.2.7.2.686 [place] [id number] [address] 2019-10-09 2019-10-09 Telephone Aiden Cooney 1.2.840.114 [id number] Univers 00:00:00 00:00:00 Elton Pediatric 350.1.13.10 ity of [place] and 4[place]2.7.2.[place] [id number] [address] 2019-09-21 2019-09-21 Office Marisol Camp 1.2.840.114 [id number] Univers 13:27:07 17:09:32 Visit [facility] 350.1.13.10 ity of [place] and 4.2.7.2.686 [place] [id number] [address] 2019-09-21 2019-09-21 Outpatient R ZOË [facility] [id number] Univers 13:40:00 13:40:00 LIBERTY ity of [facility] 2019-08-30 2019-08-30 Office Marisol Pike 1.2.840.114 [id number] Univers 15:01:37 15:11:37 Visit Antonia P Pediatric 350.1.13.10 ity of [place] and 4.2.7.2.686 [place] [id number] [address] 2019-08-22 2019-08-22 Office Aiden Cooney 1.2.840.114 [id number] Univers 15:33:37 15:43:37 Visit Elton Pediatric 350.1.13.10 ity of [place] and 4.2.7.2.686 [place] [id number] [facility] [address] [facility] 2019-08-21 2019-08-21 Emergency [facility] 1.2.840.114 [id number] Univers 09:14:31 10:35:00 Ashley Bauman 350.1.13.10 ity of [place] 4.2.7.2.686 [place] [id number] [place] 517714 Branch 2019-08-10 2019-08-10 Nurse Nurse, Osvaldo Damon 1.2.84 0.114 [id number] Univers 11:01:47 11:21:47 Visit Antonia Pike Pediatric 350.1.13.10 ity of [place] and 4.2.7.2.686 [place] [id number] [facility] 314 [facility] 2019-08-09 2019-08-09 Office Marisol Pike 1.2.840.114 [id number] Univers 09:22:22 12:41:52 Visit Antonia Garzon Pediatric 350.1.13.10 ity of [place] and 4.2.7.2.686 [place] [id number] [address] 2019-08-09 2019-08-09 Orders NICOLAS Pike 1.2.840.114 [id number] Univers 00:00:00 00:00:00 Only Antonia SHELTON 350.1.13.10 it y of HOSPITAL 4.2.7.2.686 [place] [id number] [address] 2019-07-28 2019-07-28 Orders Doctor VALENZUELA 1.2.840.114 [id number] Univers 00:00:00 00:00:00 Only Unassigned, NIKITA 350.1.13.10 ity of [place] [facility] 4.2.7.2.686 [place] [id number] [address] 2019-03-30 2019-03-30 Office Marisol Arenas 1.2.840.114 [id number] Univers 12:55:51 13:15:51 Visit Kassidy Cagle Pediatric 350.1.13.10 [place] [phone] [address] 2019-03-29 2019-03-29 Telephone Marisol Rome 1.2.840.114 [id number] Univers 00:00:00 00:00:00 [facility] 350.1.13.10 ity of [place] s and 4.2.7.2.686 [place] as Adult [phone] [facility] [address] [facility] 2019-03-27 2019-03-27 Office Aiden Cooney 1.2.840.114 71 [id number] Univers 09:41:28 09:51:28 Visit [facility] 350.1.13.10 it[place] [id number] [facility] [address] [facility] 2019-03-22 2019-03-22 Hospital Aiden Cooney 1.2.840.114 7 [id number] [facility] 15:41:22 23:59:00 Encounter [facility] 350.1.13.10 it[place] [id number] [facility] [address] [facility] 2019-03-21 2019-03-22 Office Mike Heard 1.2 .840.114 [id number] [facility] 15:31:39 09:26:38 Visit Aiden [facility] 350.1.13. 10 [place] [phone] [facility] [address] [facility] 2019-03-08 2019-03-08 Office Aiden Cooney 1.2.840.114 70 [id number] Univers 09:03:07 09:13:07 Visit [facility] 350.1.13.10 ity of [place] and [place] [id number] [facility] [address] [facility] 2019-03-03 2019-03-03 Office Aiden Cooney 1.2.840.114 [id number] Univers 10:38:58 11:09:50 Visit [facility] 350.1.13.10 it[place] [phone] [facility] [address] [facility] 2019-02-10 2019-02-10 [facility] 1.2.840.114 7 [id number] Univers 15:44:39 23:59:00 Encounter njumon, SPECIALTY 350.1.13.10 ity of [place] [phone] [facility] [address] [facility] 2019-02-10 2019-02-10 [facility] 1.2.840.114 7 [id number] Univers 08:00:00 15:43:00 Encounter njumon, SPECIALTY 350.1.13.10 ity of [place] [phone] [address] Results Test Description Test Time Test Comments Results Result [facility] e Comments - XR ANKLE 3 + V 2022-03-06 RT 00:00:00 [facility] : 2000 Sex: F FAX: Emily Mckoy MD [phone] [place]: [place] St: PRE FAX: Romeo Bragg Name: NILA BECERRA FSED : 2000 Age/S: 21/F [address] [facility] Unit #: [id number] Loc: [place], [place] [address] Phys: Ghanshyam Bragg MD Acct: [id number] Dis Date: Status: PRE ER PHONE #: Exam Date: 03/06/2022 1600 FAX #: Reason: R ANKLE PAIN AFTER FALL EXAMS: CPT CODE: [id number] XR ANKLE 3 + V RT 01504 PROCEDURE INFORMATION: Exam: XR Right Ankle Exam [...] assessment. IMPRESSION: No fracture or dislocation at 9399 Reported and signed by: Emeka Pickering M.D. CC: Emily Hurtado MD; Ghanshyam Bragg MD Technologist: Katerina Rosas RT(R)(CT) Trnscrd Date/Time/By: 03/06/2022 (9490) : By: SandraL Orig Print D/T: S: 03/06/2022 (7514) PAGE 1 Signed Report - XR FOOT 3 + V RT 2022-03-06 00:00:00 [facility] : 2000 Sex: F FAX: Emily Mckoy MD [phone] [place]: [place] St: PRE FAX: Romeo Bragg Name: SUENILA Damon FSED : 2000 Age/S: 21/F [address] [facility] Unit #: [id number] Loc: [place] [address] Phys: Ghanshyam Bragg MD Acct: [id number] Dis Date: Status: PRE ER PHONE #: Exam Date: 03/06/2022 1553 FAX #: Reason: r foot injury EXAMS: CPT CODE: [id number] XR FOOT 3 + V RT 25538 PROCEDURE INFORMATION: Exam: XR Right Foot Exam [...] Technologist: Katerina Rosas RT(R)(CT) Trnscrd Date/Time/By: 03/06/2022 (7537) : By: KaneSBL Orig Print D/T: S: 03/06/2022 (9456) PAGE 1 Signed Report URINE HCG TRIAGE (ER ONLY) 2021-11-11 08:40:00 Test Item Value Reference Range Interpretation Comme nts URINE HCG TRIAGE (ER ONLY) (test code = HCGTRIAGE) NEGATIVE Neg ative Urine Test Result: NEGATIVEAre internal controls (presence of a control line & clear background) OK? YLot # of HCG Test Kit: [id number] Date of Kit: 02/15/23Test Performed by: Carlo Perfomed on: 11/11/21COMMENTS: NEGATIVEUA DIPSTICK [id number] 00:46:00 Test Item Value Reference Range Interpretation Comments UA GLUCOSE DIPSTIC POC NEGATIVE NEGATIVE (test code = GLUUP) UA BILIRUBIN DIPSTICK NEGATIVE NEGATIVE (test code = BILU) UA KETONE DIPSTICK POC NEGATIVE NEGATIVE (test code = KETUP) UA SPECIFIC GRAVITY (test 1.010 1.005-1.030 N code = SGU) UA BLOOD DIPSTIC POC NEGATIVE NEGATIVE Perform ed by (test code = BLUP) certified cloth cutting machine operator at [facility] ed Ctr UA PH DIPSTIC POC (test 7 5.0-7.0 N code = PHUP) UA PROTEIN DIPSTICK POC NEGATIVE NEGATIVE (test code = DPROUP) UA UROBILINIOGEN QUAL NORMAL 0.2-1.0 (test code = UROQL) UA NITRITE DIPSTICK POC NEGATIVE Negative (test code = NITUP) UA LEUKOCYTE ESTERASE W Negative NEGATIVE REFLEX (test code = LEUUR) SURGICAL PATH [id number] 13:13:00 Test Item Value Reference Range Interpretation Comments SURGICAL PATH SPECIMENS (test code = S) RUN DATE: 03/28/21 [place] - LAB PAGE 1 RUN TIME: 1313 Specimen Inquiry RUN USER: INTERFACE ARTEMIO ENT: NILA BECERRA LOC: MAIKEL U #: [id number] AGE/SX: 20/F ROOM: [facility] RE03/25/21REG DR: Luis Burciaga MD : 02 BED: 1 DIS: STATUS: ADM IN TLOC: SPEC #: [id number] RECD: 03/27/21 STATUS: GLENN REGreta #: [id number] SLOAN: 03/26/21- SUBM DR: Luis Burciaga MD ENTERED: 03/27/21 SP TYPE: SURG SPEC OTHR : ORDERED: LEVEL 5 CODES: [id number] - PLACENTA, NOS PROCEDURES: GM LEVEL 5 [...] 03/28/21 1313 END OF REPORT CBC W/AUTO [id number] 07:03:00 Test Item Value Reference Range Interpretation [...] code NO = MDIFF) CORD VENOUS BLOOD [id number] 18:41:00 Test Item Value Reference Range Interpretation [...] = 17 % O2SCV) CORD ARTERIAL BLOOD [id number] 18:40:00 Test Item Value Reference Range Interpretation [...] O2S/C) 25 % 72-77 L RAPID PLASMA [id number] 10:40:00 Test Item Value Reference Range Interpretation Comments RAPID PLASMA REAGIN (test code = NONREACTIVE NONREACTIVE RPR) AG HEPATITIS B [id number] 10:40:00 Test Item Value Reference Range Interpretation Comments AG HEPATITIS B SURFACE NON REACTIVE INDEX NonReactive (test code = HBSAG) AB HIV 1 10:40:00 Test Item Value Reference Range Interpretation Comments AB HIV 1 2 (test code = HTP56CL) Nonreactive Nonreactive COVID 19 Asymptomatic IH [id number] 20:20:00 Test Item Value Reference Range Interpretation [...] moderate, high or waivedcomplexit y tests. URINALYSIS [id number] 18:48:00 Test Item Value Reference Range Interpretation [...] MUCU) TRACE /LPF NONE SEEN RAPID PLASMA [id number] 18:11:00 Test Item Value Reference Range Interpretation Comments RAPID PLASMA REAGIN (test code = RPR) NONREACTIVE AG HEPATITIS B [id number] 18:11:00 Test Item Value Reference Range Interpretation Comments AG HEPATITIS B SURFACE NON REACTIVE INDEX NonReactive (test code = HBSAG) AB HIV 1 18:11:00 Test Item Value Reference Range Interpretation Comments AB HIV 1 2 (test code = QDI21MB) Nonreactive Nonreactive COMPREHENSIVE METABOLIC [id number] 17:45:00 Test Item Value Reference Range Interpretation [...] N TOTAL (test code = ALKP) URIC [id number] 17:45:00 Test Item Value Reference Range Interpretation Comments URIC ACID (test code = URIC) 4.0 mg/dL 2.6-7.2 N LACTIC DEHYDROGENASE(LDH)2021-03-25 17:45:00 Test Item Value Reference Range Interpretation Comments LACTIC DEHYDROGENASE(LDH) (test 225 IUnits/L 84-246 N code = LDH) CBC W/AUTO [id number] 17:24:00 Test Item Value Reference Range Interpretation [...] REQUIRED (test code = MDIFF) CBC W/AUTO [id number] 17:24:00 Test Item Value Reference Range Interpretation [...] (test code NO = MDIFF) - BIOPHYS [id number] 00:00:00 [facility] MADELINE COFFMANName: NILA BECERRA : 2000 Sex: F Name: NILA BECERRA [facility] Madeline Coffman : 2000 Age/S: 20 / F [address] [place] [address] Unit #: [id number] Loc: [place] [address] Phys: Effie Solitario MD Acct: [id number] Dis Date: Status: REG ER PHONE #: [phone] Exam Date: 03/12/202141 FAX #: [phone] Reason: Possible SROM, please evaluate ISMA EXAMS: CPT CODE: [id number] US BIOPHYS PROF [id number] PROCEDURE INFORMATION: Exam: US Biophysical Profile With [...] placenta is anterior, non-previa without signs of retroplacentalhemorrhage. Grade: 3 S/D ratio: 1.8 ISMA: 8.2 cm breathing movements: 2 Gross body movements: 2Fetal tone: 2 Amniotic fluid volume: 2 IMPRESSION: Biophysical profile score of 8 out of 8. at 005 Reported and signed by: Reinaldo Will M.D. CC: Technologist: Yuki Ray RDMS()(OB) Trnscb Date/Time: 03/13/2021 (56) Sabine Orig Print D/T: S: 03/13/2021 (56) Probe: PAGE 1 Signed ReportAMNISURE (ROM) TEST 2021-03-12 22:05:00 Test Item Value Reference Range Interpretation Comments AMNISURE (ROM) TEST (test code = NEGATIVE NEGATIVE AMNI) URINALYSIS [id number] 21:48:00 Test Item Value Reference Range Interpretation [...] = MUCU) TRACE /LPF NONE SEEN URINALYSIS [id number] 07:00:00 Test Item Value Reference Range Interpretation [...] TRACE /LPF NONE SEEN - US BIOPHYS [id number] 00:00:00 [facility] : 2000 Sex: F Name: NILA BECERRA [facility] Madeline Coffman : 2000 Age/S: 20 / F [address] [place] [address] Unit #: [id number] Loc: [place] [address] Phys: Effie Solitario MD Acct: [id number] Dis Date: Status: REG ER PHONE #: [phone] Exam Date: 03/01/20218 FAX #: [phone] Reason: decreased movements EXAMS: CPT CODE: [id number] BIOPHYS PROF [id number] PROCEDURE INFORMATION: Exam: US Biophysical Profile With Non-Stress Test Exam date and time: 03/01/2021 7:32 AM Age: 20 years old Clinical indication: Other: Decreased movement; ; Additional info: Decreased movements TECHNIQUE: Imaging protocol: biophysical profile with non-stress test. COMPARISON: US BIOPHYS PROF 02/12/2021 8:58 PM FINDINGS: heart rate: heart rate 136 bpm. Placenta: Anterior placenta. BIOPHYSICAL PROFILE: Breathin/2 Gross body movements: 2/2 tone: 2/2Qualitative amniotic fluid: 2/2 Other findings: Cephalic position. SD ratio 2.6, 2.4, 3.1. IMPRESSION: Biophysical profile score is 8/8. at 0810 Reported and signed by: Nilton Frederick M.D. CC: Technologist: Vilma Robles RDMS() Trnscb Date/Time: 03/01/2021 (809) [email or web address] Orig Print D/T: S: 03/01/2021 (0811) Probe: PAGE 1 Signed Report AMNISURE (ROM) [id number] 16:16:00 Test Item Value Reference Range Interpretation Comments AMNISURE (ROM) TEST (test code = NEGATIVE NEGATIVE AMNI) [id number] 16:16:00 Test Item Value Reference Range Interpretation Comments FIBRONECTIN (test code = FFN) NEGATIVE NEGATIVE [id number] 20:50:00 Test Item Value Reference Range Interpretation Comments FIBRONECTIN (test code = FFN) NEGATIVE NEGATIVE URINALYSIS [id number] 20:32:00 Test Item Value Reference Range Interpretation [...] TRACE /LPF NONE SEEN - US BIOPHYS [id number] 00:00:00 [facility] MADELINE COFFMANName: NILA BECERRA : 2000 Sex: F Name: NILA BECERRA [facility] [place] : 2000 Age/S: 20 / F [address] [place] [address] Unit #: [id number] Loc: [place] [address] Phys: Effie Solitario MD Acct: [id number] Dis Date: Status: REG ER PHONE #: [phone] Exam Date: 02/12/20212122 FAX #: [phone] Reason: Decreased movements EXAMS: CPT CODE: [id number] US BIOPHYS PROF 04494 PROCEDURE INFORMATION: Exam: US Biophysical Profile With Non-Stress Test Exam date and time: 02/12/2021 8:58 PM Age: 20 years old Clinical indication: Other: Decreased fm; ; Additional info: Decreased movements TECHNIQUE:Imaging protocol: biophysical profile with non-stress test. COMPARISON: LTD 12/25/2020 4:51 PM FINDINGS: heart rate: [...] 1 Signed Report (CONTINUED) Name: NILA BECERRA [facility] [place] : 2000 Age/S: 20 / F [address] [place] [address] Blvd Unit #: [id number] Loc: [place] [address] Phys: Effie Solitario MD Acct: [id number] Dis Date: Status: REG ER PHONE #: [phone] Exam Date: 02/12/20212122 FAX #: [phone] Reason: Decreased movements EXAMS: CPT CODE: [id number] BIOPHYS PROF 78206 <Continued> at 2121 Reported and signed by: Geovanny Hughes D.O. CC: Technologist: Yuki Ray RDMS(AB)(OB) Trnscb Date/Time: 02/12/2021 (2121) [email or web address] Orig Print D/T: S: 02/12/2021 (2148) Probe: PAGE 2 Signed ReportURINALYSIS [id number] 03:25:00 Test Item Value Reference Range Interpretation [...] MUCU) TRACE /LPF NONE SEEN - US [id number] 17:34:00 [facility] : 2000 Sex: F Name: NILA BECERRA [facility] : 2000 Age/S: 20 / F [address] [place] [address] Blvd Unit #: [id number] Loc: [place] [address] Phys: Pearl Chavez DO Acct: [id number] Dis Date: Status: REG ER PHONE #: [phone] Exam Date: 12/25/2020 1726 FAX #: [phone] Reason: h/o low ISMA, unsure if PROM, translabial cervic EXAMS: CPT CODE: [id number] US LTD 96435 LIMITED ULTRASOUND INDICATION: with history of low [...] 1 Signed Report (CONTINUED) Name: NILA BECERRA [facility] : 2000 Age/S: 20 / F [address] [place] [address] Unit #: [id number] Loc: [place] [address] Phys: Pearl Chavez DO Acct: [id number] Dis Date: Status: REG ER PHONE #: [phone] Exam Date: 12/25/2020 1726 FAX #: [phone] Reason: h/o low ISMA, unsure if PROM, translabial cervic EXAMS: CPT CODE: [id number] US LTD 87057 <Continued> at 1734 Reported and signed by: Judah Izquierdo M.D. CC: Pearl Chavez DO Technologist: Merna Figueroa RDMS(AB) Trnmib Date/Time: 12/25/2020 (1732) [email or web address] Orig Print D/T: S: 12/25/2020 (2801) Probe: PAGE 2 Signed ReportAMNISURE (ROM) [id number] 17:14:00 Test Item Value Reference Range Interpretation Comments AMNISURE (ROM) TEST (test code = NEGATIVE NEGATIVE AMNI) URINALYSIS [id number] 17:10:00 Test Item Value Reference Range Interpretation [...] A = AMORU) DRUGS OF ABUSE SCREEN [id number] 17:07:00 Test Item Value Reference Range Interpretation [...] non-medical pur poses. - US PREG AFTER [id number] 02:47:00 [facility] : 2000 Sex: F Name: NILA BECERRA [facility] [place] : 2000 Age/S: 19 / F [address] [place] [address] Bl Unit #: [id number] Loc: [place] [address] Phys: Brittnee Ramirez MD Acct: [id number] Dis Date: Status: REG ER PHONE #: [phone] Exam Date: 11/23/2020 0144 FAX #: [phone] Reason: No PNC, bleeding, approximately 20 weeks EXAMS: CPT CODE: [id number] US PREG AFTER TRI 30614 EXAM: US, US PREG AFTER 1SR TRI: [...] 1 Signed Report (CONTINUED) Name: [facility]: 2000 Age/S: 19 / F [address] [place] [address] Unit #: [id number] Loc: [place] [address] Phys: Brittnee Ramirez MD Acct: [id number] Dis Date: Status: REG ER PHONE #: [phone] Exam Date: 11/23/2020 0144 FAX #: [phone] Reason: No PNC, bleeding, approximately 20 weeks EXAMS: CPT CODE: [id number] US PREG AFTER 1ST TRI 45298 <Continued> seen. Cervical length is not visualized. IMPRESSION: Single live fetus in variable presentation. heart rate is 140 bpm. 2. Sonographic EGA of19 weeks 6 days and an sonographic DANY of 04/13/2021 +/- one standard deviation. SL:[JSYED-H] at 0247 Reported and signed by: Jeromy Wolfe M.D. CC: Brittnee Ramirez MD Technologist: Maryam Anderson RDMS(BR)(AB) Trnscb Date/Time: 11/23/2020 (246)[email or web address] Orig Print D/T: S: 11/23/2020 (249) Probe: PAGE 2 Signed Report- US PREG AFTER [id number] 02:47:00 [facility] : 2000 Sex: F Name: NILA BECERRA [facility] : 2000 Age/S: 19 / F [address] [place] [address] Unit #: [id number] Loc: [place] [address] Phys: Brittnee Ramirez MD Acct: [id number] Dis Date: Status: DEP ER PHONE #: [phone] Exam Date: 11/23/2020 0144 FAX #: [phone] Reason: No PNC, bleeding, approximately 20 weeks EXAMS: CPT CODE: [id number] US PREG AFTER TRI 38803 EXAM: US, US PREG AFTER 1SR TRI: [...] Avg = 20 weeks 3 days . 4.FEMUR LENGTH - 3.07 cm: Avg = 19 [...] 1 Signed Report (CONTINUED) Name: NILA BECERRA [facility] : 2000 Age/S: 19 / F [address] [place] [address] Blvd Unit #: [id number] Loc: [place] [address] Phys: Brittnee Ramirez MD Acct: [id number] Dis Date: Status: [facility] ER PHONE #: [phone] Exam Date: 11/23/2020143 FAX #: [phone] Reason: No PNC, bleeding, approximately 20 weeks EXAMS: CPT CODE:[id number] US PREG AFTER 1ST TRI 13150 <Continued> seen. Cervical length is not visualized. IMPRESSION: Single live fetus in variable presentation. heart rate is 140 bpm. 2. Sonographic EGA of 19 weeks 6 days and an sonographic DANY of 04/13/2021 +/- one standard deviation. SL:[JSYED-H] at 0247 Reported and signed by: Jeromy Wolfe M.D. CC: Brittnee Ramirez MD Technologist: Maryam Anderson RDMS(GOYO)(AB) Trnmib Date/Time: 11/23/2020 (246) [email or web address] Orig Print D/T: S: 11/23/2020 (025) Probe: PAGE 2 Signed ReportURINALYSIS [id number] 01:40:00 Test Item Value Reference Range Interpretation [...] code = AMORU) DRUGS OF ABUSE SCREEN [id number] 01:40:00 Test Item Value Reference Range Interpretation [...] ed for non-medical pur poses. CBC W/AUTO [id number] 01:27:00 Test Item Value Reference Range Interpretation [...] (test code NO = MDIFF) BASIC METABOLIC [id number] 02:51:00 Test Item Value Reference Range Interpretation [...] = CA) 9.5 mg/dL 8.0-10.5 N HCG [id number] 02:51:00 Test Item Value Reference Range Interpretation Comments HCG SERUM (test 18384.3 0 - 6 NOT P REGNANT > 6 code = HCG) SUGGESTIVE OF E TREVOR RISES TWO FOLD EVERY 2 DAYS; SUGGEST RECONFIRMING AF TER 2 DAYS. 150,000-200,[address] TRIMESTER 10,00 0 - 50,000 2ND & 3RD TRIME STERResults in emanuel-[employer] Shot Header Operator ational Units/mL URINALYSIS [id number] 02:39:00 Test Item Value Reference Range Interpretation [...] MUCU) TRACE /LPF NONE SEEN CBC W/AUTO [id number] 02:21:00 Test Item Value Reference Range Interpretation [...] NO = MDIFF) - US PREG 1ST [id number] 02:19:00 [facility] : 2000 Sex: F Name: NILA BECERRA [facility] : 2000 Age/S: 19 / F [address] [place] [address] Unit #: [id number] Loc: [place] [address] Phys: Nirav Nolan MD Acct: [id number] Dis Date: Status: REG ERPHONE #: [phone] Exam Date: 10/05/2020209 FAX #: [phone] Reason: VB EXAMS: CPT CODE: [id number] US PREG 1ST TRIMTR 94536 STUDY: - DUP AB/PEL/SC/LTD, - US PREG 1ST TRIMTR 10/05/2020 1:17 AM Ordering Physician: Nirav Nolan MD Patient Name: NILA BECERRA MR: [id number] : 2000; Age: 19 years y/o Female Clinical Indication: at 12 weeks with vaginal bleeding. Comparison: None TRANSABDOMINAL PELVIC ULTRASOUND: Technique: Grayscale, color, and Doppler transabdominal imagi ng of the pelvis was performed with standard technique. UTERUS: Mildly enlarged uterus measuring 12.0 x 8.0 x 9.5 cm without focal myometrial lesion. Well- formed single live intrauterine withcrown-rump length measuring 6.7 [...] 1 Signed Report (CONTINUED) Name: NILA BECERRA [facility] Madeline Coffman : 2000 Age/S: 19 / F [address] [place] [address] Blvd Unit #: [id number] Loc: [place] [address] Phys: Nirav Nolan MD Acct: [id number] Dis Date: Status: REG ER PHONE #: [phone] Exam Date: 10/05/2020209 FAX #: [phone] Reason: VB EXAMS: CPT CODE: [id number] US PREG 1ST TRIMTR 10887 <Continued> SL: TPAINTER-H at 0219 Reported and signed by: Abdias Avila M.D. CC: Elina Rome MD; Nirav Nolan MD Technologist: Maryam Anderson RDMS(BR)(AB) Trnscb Date/Time: 10/05/2020 (218) [email or web address] Orig Print D/T: S: 10/05/2020 (221) Probe: PAGE 2 Signed Report- DUP AB/PEL/SC/[id number] 02:19:00 [facility] MADELINE COFFMANName: NILA BECERRA : 2000 Sex: F Name: NILA BECERRA [facility] [place] : 2000 Age/S: 19 / F [address] [place] [address] Unit #: [id number] Loc: [place] [address] Phys: Nirav Nolan MD Acct: [id number] Dis Date: Status: REG ER PHONE #: [phone] Exam Date: 10/05/2020 0210 FAX #: [phone] Reason: see US PREG 1st TRIMTR EXAMS: CPT CODE: [id number] DUP AB/PEL/SC/LTD 94836 STUDY: - DUP AB/PEL/SC/LTD, - US PREG 1ST TRIMTR 10/05/2020 1:17 AM Ordering Physician: Nirav Nolan MD Patient Name: NILA BECERRA MR: [id number] : 2000; Age: 19 years y/o Female [...] 0 days with heart rate of 154 b pm. RIGHT OVARY AND ADNEXA: General: Normal size right ovary measuring 3.4 x 1.2 x 2.2 cm containingsubcentimeter follicles. Doppler: Normal low resistance [...] intrauterine at 13 weeks 0 days. PAGE 1Signed Report (CONTINUED) Name: NILA BECERRA : 2000 Age/S: 19 / F [address] [place] [address] Unit #: [id number] Loc: [place] [address] Phys: Nirav Nolan MD Acct: [id number] Dis Date: Status: REG ER PHONE #: [phone] Exam Date: 10/05/2020209 FAX #: [phone] Reason: see US PREG 1st TRIMTR EXAMS: CPT CODE: [id number] DUP AB/PEL/SC/LTD 98347 <Continued> SL:TPAINTER-H at 021 Reported and signed by: Abdias Avila M.D. CC: Elina Rome MD; Nirav Nolan MD Technologist: Maryam Anderson RDMS(BR)(AB) Trnscb Date/Time: 10/05/2020 (218) [email or web address] Orig Print D/T: S: 10/05/2020 (221) Probe: PAGE 2 Signed Report- DUP AB/PEL/SC/[id number] 22:07:00[facility] : 2000 Sex: F Name: NILA BECERRA [facility] Madeline Coffman : 2000 Age/S: 19 / F [address] [place] [address] Blvd Unit #: [id number] Loc: [place] [address] Phys: Cathy Bruce Acct: [id number] Dis Date: Status: REG ERPHONE #: [phone] Exam Date: 08/22/20202199 FAX #: [phone] Reason: see US PREG 1st TRIMTREXAMS: CPT CODE: [id number] DUP AB/PEL/SC/LTD 21598 PROCEDURE: FIRST TRIMESTER ULTRASOUND INDICATION: 6 weeks [...] Reported and signed by:Judah Izquierdo M.D. CC: Elina Rome MD; Cathy MELO Technologist: JOCELIN Singh(BR)(AB) Trnscb Date/Time: 08/22/2020 (2206) [email or web address] Orig Print D/T: S: 08/22/2020 (2209) Probe: PAGE 1 Signed Report- US PREG 1ST [id number] 22:07:00[facility] : 2000 Sex: F Name: NILA BECERRA [facility] [place] : 2000 Age/S: 19 / F [address] [place] [address] Unit #: [id number] Loc: [place] [address] Phys: Cathy Bruce Acct: [id number] Dis Date: Status: REG ER PHONE #: [phone] Exam Date: 08/22/20202199 FAX #: [phone] Reason: 6w , crampingEXAMS: CPT CODE: [id number] US PREG 1ST TRIMTR 54738 PROCEDURE: FIRST TRIMESTER ULTRASOUNDINDICATION: 6 weeks with cramping. Abdominal and back pain. COMPARISON: None. TRANSABDOMINAL SCAN: The uterus measures 9.1 x 5.1 x 5.9 cm containing a gestational sac with mean sac diameter of2 cm correlating with 6 weeks 6 days [...] and signed by: Judah Izquierdo M.D. CC: Elina Rome MD; Cathy MELO Technologist: JOCELIN Singh(BR)(AB) Trnscb Date/Time: 08/22/2020 (2206) [id number] Orig Print D/T: S: 08/22/2020 (2209) Probe:PAGE 1 Signed ReportURINALYSIS [id number] 21:50:00 Test Item Value Reference Range Interpretation [...] MUCU) TRACE /LPF NONE SEEN BASIC METABOLIC [id number] 21:48:00 Test Item Value Reference Range Interpretation [...] patient ? YHOW MANY WEEKS? 6 WEEKSHCG [id number] 21:48:00 Test Item Value Reference Range Interpretation Comments HCG SERUM (test 86754.6 0 - 6 NOT P REGNANT > 6 code = HCG) SUGGESTIVE OF E TREVOR RISES TWO FOLD EVERY 2 DAYS; S UGGEST RECONFIRMING AF TER 2 DAYS. 150,000-200,[address] TRIMESTER 10,00 0 - 50,000 2ND & 3RD TRIME STERResults in [employer] ational Units/mL Is patient ? YHOW MANY WEEKS? 6 WEEKSUR HCG [id number] 21:47:00 Test Item Value Reference Range Interpretation Comments UR HCG QUAL (test code = HCGQLU) POSITIVE NEGATIVE CBC W/AUTO [id number] 21:33:00 Test Item Value Reference Range Interpretation [...] (test code NO = MDIFF) CBC W/AUTO [id number] 21:31:00 Test Item Value Reference Range Interpretation [...] REQUIRED (test code = MDIFF) Novel Coronavirus 2018 [id number] 14:50:00 Test Item Value Reference Range Interpretation Comments Novel Coronavirus 2018 Negative Negative Perfo rmed by: Vignesh Melara nCoV (test code = Laboratory 8562 Nidia COVID19) [facility], [address] [place], [place] [address] Phone: CLIA#: [id number] Does patient have the clinical criteria consistent with COVID-19? YIs the patient going to be discharged home? Y- CT NECK [id number] 02:35:00 Name: NILA BECERRA [facility] : 2000 Age/S: 19 / F [address] [place] [address] Blvd Unit #: [id number] Loc: [place] [address] Phys: Amilcar Pablo [employer]ATOR Acct: [id number] Dis Date: Status: REG ER PHONE #: [phone] Exam Date: 02/16/2020 0134 FAX #: [phone] Reason: R lymphadenopathy, throat pain, fever EXAMS: CPT CODE: [id number] CT NECK W/CONTRAST 81012 EXAM: CT, CT NECK W/CONTRAST: 02/16/2020, 0132 hours Clinical Indication: Right lymphadenopathy. Fever. Throat pain. Comparison: CT cervical spine 06/09/2018. Technique: CT of the neck is performed with a multidetector CT. Coronal andsagittal reconstructions were obtained. CT imaging was performed with exposure control parameters toreduce radiation dose. All CT scans at this location are performed using dose optimization techniques as appropriate to perform exam including the following: * Automated exposure control * Adjustment of the mA and /or kV according to patient size (this includes techniques or standardized protocols fortargeted exams where dose is matched to indication/reason [...] 1.2 x 2.4 cm. No bulky adenopathy seen. Asymmetric enlargement of the right aspect of the lingual tonsils. . The nasopharyngeal adenoids and tonsillar pillar regions appear unremarkable. SALIVARY GLANDS: The submandibular and parotid glandsare unremarkable. PARANASAL SINUSES : The paranasal sinuses are clear without soft tissue thickeningor air- fluid levels. ORBITS: The visualized orbits are unremarkable. VASCULAR STRUCTURES: The jugular veins and carotid vessels are PAGE 1 Signed Report (CONTINUED) Name: NILA BECERRA [facility] : 2000 Age/S: 19 / F [address] [place] [address] Unit #: [id number] Loc: [place] [address] Phys: Amilcar Pablo NP Acct: [id number] Dis Date: Status: REG ER PHONE #: [phone] Exam Date: 02/16/2020 0134 FAX #: [phone] Reason: R lymphadenopathy, throat pain, fever EXAMS: CPT CODE: [id number] CT NECK W/CONTRAST 75582 <Continued> unremarkable. OSSEOUS STRUCTURES: There are no fractures or dislocations. There are no lucencies at the bases of the mandibular teeth to suggest abscess. There are no radiopaque foreign bodies noted. THYROID GLANDS: The thyroid lobes are symmetric and there are no lesions. VISUALIZED LUNG APICES: There are no pulmonary masses or consolidation. IMPRESSION:1. Enlarged neck lymph nodes bilaterally. Differential consideration would include inflammatory/infectious or metastatic adenopathy. 2. Enlarged right aspect of lingual tonsils. Although this may be due to infectious/inflammatory process, follow-up to resolution recommended. SL: POONAMH at 0235 Reported and signed by: Jeromy Wolfe M.D. CC:Elina Rome MD; Amilcar Pablo NP Technologist:Josué Granado RT(R)(CT); Natasha CTDI: DLP: Trnscb Date/Time: 02/16/2020 (0235) [email or web address] Orig Print D/T: S: 02/16/2020 (3063) PAGE 2 Signed ReportCOMPREHENSIVE METABOLIC [id number] 00:12:00 Test Item Value Reference Range Interpretation [...] IUnit/L 60-350 N code = ALKP) MONO [id number] 00:09:00 Test Item Value Reference Range Interpretation Comments MONO SCREEN (test code = MONO) NEGATIVE NEGATIVE URINALYSIS [id number] 00:02:00 Test Item Value Reference Range Interpretation [...] MUCU) 1+ /LPF NONE SEEN COMPREHENSIVE METABOLIC [id number] 00:02:00 Test Item Value Reference Range Interpretation [...] IUnit/L 60-350 code = ALKP) CBC W/AUTO [id number] 23:59:00 Test Item Value Reference Range Interpretation [...] (test NO code = MDIFF) UR HCG [id number] 23:56:00 Test Item Value Reference Range Interpretation Comments UR HCG QUAL (test code = HCGQLU) NEGATIVE NEGATIVE
--- NOTE | 2022-05-29 14:16 | RAD REPORT ---
EXAM DESCRIPTION: US - OB Limited - 05/29/2022 2:07 pm CLINICAL HISTORY: ABD CRAMPING, age. COMPARISON: Transvaginal OB dated 04/27/2022 FINDINGS: A single cephalic presenting gestation is identified. Heart rate normal. measurements are as follows: AC:8.6 Centimeters 14 week 6 day FL:1.7 Centimeters 14 week 6 day The estimated gestational age (EGA) is 14 week 6 day with an DANY of11/21/2022. The placenta is grade anterior in location. No placenta previa. Ovaries not visualized. The cervix is closed. IMPRESSION: Single, cephalic gestation with an EGA of 14 week 6 day and an DANY of the 11/21/2022.
[2022-05-29] MEDS ORDERED: NA CHLORIDE 0.9% 1,000 ML ONE (14:18)
[2022-05-29] MEDS ORDERED: FAMOTIDINE 20 MG/2 ML VIAL IV ONE (14:18)
[2022-05-29] MEDS ORDERED: ONDANSETRON 4 MG/2 ML VIAL ONE (14:18)
[2022-05-29 14:33] LABS: Absolute Lymphocytes (CBC) 2.3 K/uL (0.7-4.9); Lymphocytes % 32.1 % (15.3-44.8); MCV 86.2 fL (80-100); MPV 8.4 fL (7.6-11.3); RBC Red Blood Cell Count 3.83 M/uL (3.86-4.86)
[2022-05-29 14:46] LABS: Urine Blood Negative (Negative); Urine Glucose Negative (Negative); Urine Protein Negative (Negative); Urine Specific Gravity >=1.030 (1.005-1.030); Urine pH 5.5 (5.0-7.0)
[2022-05-29 16:00] LABS: Potassium 3.7 mmol/L (3.5-5.1)
--- NOTE | 2022-05-29 16:23 | EDPHYS ---
Physician Documentation [facility] Name: Hilaria Rogers Age: 21 yrs Sex: Female : 2000 Arrival Date: 05/29/2022 Time: 11:22 Bed 19 Private MD: ED Physician Parveen Back HPI: 05/29 13:45 This 21 yrs old Female presents to ER via Ambulatory with complaints of Vomiting - 15 cp wks preg. 13:45 The patient presents to the emergency department with nausea and vomiting, that started cp 2 hour(s) ago, and is intermittent, described as bilious, vaginal bleeding, that is light, with no clots. The estimated gestational age is 14 weeks. 13:45 course: care: private OB physician. Previous pregnancies: in cp previous pregnancies patient has had no complications. Associated signs and symptoms: Pertinent positives: nausea, vaginal bleeding, vomiting, Pertinent negatives: diarrhea, dysuria, fever, ruptured membranes. 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 - Social history:: Smoking status: Reported history of juuling and/or vaping. ROS: 13:50 Constitutional: Negative for body aches, chills, fever, poor PO intake. cp 13:50 Eyes: Negative for injury, pain, redness, and discharge. cp 13:50 ENT: Negative for drainage from ear(s), ear pain, sore throat, difficulty swallowing, difficulty handling secretions. 13:50 Respiratory: Negative for cough, shortness of breath, wheezing. 13:50 Abdomen/GI: Positive for nausea and vomiting, abdominal cramps, Negative for diarrhea, constipation. 13:50 : Positive for vaginal bleeding, Negative for urinary symptoms. 13:50 Neuro: Negative for altered mental status, headache, weakness. 13:50 All other systems are negative. Exam: 13:55 Constitutional: The patient appears in no acute distress, alert, awake, non-toxic, well cp developed, well nourished. 13:55 Head/Face: Normocephalic, atraumatic. cp 13:55 Eyes: Periorbital structures: appear normal, Conjunctiva: normal, no exudate, no injection, Sclera: no appreciated abnormality, Lids and lashes: appear normal, bilaterally. 13:55 ENT: External ear(s): are unremarkable, Nose: is normal, Mouth: Lips: moist, Oral mucosa: pink and intact, moist, Posterior pharynx: Airway: no evidence of obstruction, patent. 13:55 Chest/axilla: Inspection: normal. 13:55 Cardiovascular: Rate: normal, Rhythm: regular. 13:55 Respiratory: the patient does not display signs of respiratory distress, Respirations: normal, no use of accessory muscles, no retractions, labored breathing, is not present, Breath sounds: are clear throughout, no decreased breath sounds, no stridor, no wheezing. 13:55 Abdomen/GI: Inspection: abdomen appears normal, Bowel sounds: active, all quadrants, Palpation: abdomen is soft and non-tender, in all quadrants. 13:55 Back: CVA tenderness, is absent. 13:55 Neuro: Orientation: to person, place \T\ time. Mentation: is normal. Vital Signs: 11:50 BP 125 / 64; Pulse 95; Resp 16; Temp 97.7(TE); Pulse Ox 100% on R/A; Weight 67.13 kg; ss Height 5 ft. 2 in. (157.48 cm); Pain 0/10; 15:00 BP 103 / 60; Pulse 75; Resp 16; Pulse Ox 100% on R/A; db 15:30 BP 98 / 58; Pulse 74; Resp 16; Pulse Ox 100% ; db 16:37 BP 105 / 63; Pulse 65; Resp 18; Pulse Ox 100% on R/A; db 11:50 Body Mass Index 27.07 (67.13 kg, 157.48 cm) ss MDM: 13:38 Patient medically screened. cp 14:00 Differential diagnosis: threatened Ab, inevitable Ab, complete Ab, retained Ab, cp dehydration, hyperemesis, , electrolyte abnormality. 16:20 Data reviewed: vital signs, nurses notes, lab test result(s), radiologic studies, plain cp films. 16:20 Counseling: I had a detailed discussion with the patient and/or guardian regarding: the cp historical points, exam findings, and any diagnostic results supporting the discharge/admit diagnosis, lab results, radiology results. 16:20 Response to treatment: the patient's symptoms have markedly improved after treatment, cp VSS. Nausea markedly improved and vomiting resolved. Patient reports having Ondansetron prescription at pharmacy. Reports no vaginal bleeding at this time. Will discharge to home for continued monitoring. 05/29 13:43 Order name: Abo/rh Typing; Complete Time: 15:21 05/29 15:21 Interpretation: Reviewed. 05/29 13:43 Order name: Basic Metabolic Panel; Complete Time: 16:03 05/29 16:03 Interpretation: Normal except: CRE 0.45; CL 108. 05/29 13:43 Order name: CBC with Diff; Complete Time: 14:36 05/29 14:37 Interpretation: Normal except: RBC 3.83; HGB 11.0; HCT 33.0. 05/29 13:43 Order name: Quantitative Hcg; Complete Time: 16:03 05/29 16:04 Interpretation: HCGQ 26311; Reviewed. 05/29 14:46 Order name: Urine Dipstick-Ancillary; Complete Time: 15:21 EDMS 05/29 15:21 Interpretation: Normal except: UKET Trace. 05/29 13:43 Order name: IV Saline Lock; Complete Time: 14:23 05/29 13:43 Order name: Labs collected and sent; Complete Time: 14:23 05/29 13:43 Order name: NPO; Complete Time: 14:24 05/29 13:43 Order name: Urine Dipstick-Ancillary (obtain specimen); Complete Time: 14:39 05/29 13:43 Order name: US OB Limited; Complete Time: 14:36 05/29 13:43 Order name: Urine Test (obtain specimen); Complete Time: 14:39 05/29 14:37 Order name: PO challenge; Complete Time: 16:06 cp Administered Medications: 14:38 Drug: Pepcid (famotidine) 20 mg Route: IVP; Site: right antecubital; db 15:44 Follow up: Response: No adverse reaction db 14:39 Drug: NS 0.9% 1000 ml Route: IV; Rate: 1 bolus; Site: right antecubital; db 15:42 Follow up: IV Status: Completed infusion; IV Intake: 1000ml db 15:44 Follow up: Response: No adverse reaction db 14:39 Drug: Zofran (Ondansetron) 4 mg Route: IVP; Site: right antecubital; db 15:44 Follow up: Response: No adverse reaction db Disposition Summary: 05/29/22 16:21 Discharge Ordered Location: Home cp Problem: new cp Symptoms: have improved cp Condition: Stable cp Diagnosis - Other specified related conditions, second trimester cp - Other vomiting complicating cp - Threatened cp Followup: cp - With: Private Physician - When: 1 - 2 days - Reason: Recheck today's complaints Discharge Instructions: - Discharge Summary Sheet cp - Hyperemesis Gravidarum cp - Threatened Miscarriage cp - Vaginal Bleeding During , Second Trimester cp - Activity Restriction During cp Forms: - Medication Reconciliation Form cp - Thank You Letter cp - Antibiotic Education cp - Prescription Opioid Use cp Signatures: Dispatcher [employer] EDAlia Thompson RN RN ss Gabriel Centeno PA PA cp Belia Go RN RN db Corrections: (The following items were deleted from the chart) 11:53 11:53 Social history: Smoking status: Patient denies any tobacco usage or history of. ssss 16:03 16:03 Normal except: CRE 0.45. cp cp
--- NOTE | 2022-05-29 16:23 | ER ---
Nurse's Notes [facility] Name: Hilaria Rogers Age: 21 yrs Sex: Female : 2000 Arrival Date: 05/29/2022 Time: 11:22 Bed 19 Private MD: Diagnosis: Other specified related conditions, second trimester;Other vomiting complicating ;Threatened Presentation: 05/29 11:50 Chief complaint: Patient states: N/V that began 2 days ago. Pt reports she is 15 wks ss . Pt states. "Well, but the reason I am here now is because I'm bleeding all over myself, but I got it to stop. My OB wanted me to come all the way over to see him, but I told them I didn't have gas money to make it over there.". Coronavirus screen: Client denies travel out of the [place] in the last 14 days. Ebola Screen: Patient denies exposure to infectious person. Patient denies travel to an Ebola-affected area in the 21 days before illness onset. Initial Sepsis Screen: Does the patient meet any 2 criteria? No. Patient's initial sepsis screen is negative. Does the patient have a suspected source of infection? No. Patient's initial sepsis screen is negative. Risk Assessment: Do you want to hurt yourself or someone else? Patient reports no desire to harm self or others. Onset of symptoms was May 29, 2022. 11:50 Method Of Arrival: Ambulatory ss 11:50 Acuity: CONCHITA 3 ss Triage Assessment: 16:58 General: Appears in no apparent distress. comfortable, Behavior is calm, cooperative, db appropriate for age, quiet. Neuro: No deficits noted. Level of Consciousness is awake, alert, obeys commands, Oriented to person, place, time, Appropriate for age. GI: Reports lower abdominal pain, intolerance of fluids, intolerance of food, nausea, vomiting. DRAWING IN HAND: 13:45 2, Full Term 1, Living 1, Verified cp 16:58 2, Living 1, Verified db Historical: - Allergies: 11:53 No Known Allergies; ss - PSHx: 11:53 Tonsillectomy; ss - Immunization history:: Client reports receiving the 2nd dose of the Covid vaccine. - Social history:: Smoking status: Reported history of juuling and/or vaping. Screenin:23 Abuse screen: Denies threats or abuse. Denies injuries from another. Nutritional db screening: No deficits noted. Tuberculosis screening: No symptoms or risk factors identified. Fall Risk None identified. No fall in past 12 months (0 pts). No secondary diagnosis (0 pts). No IV (0 pts). Ambulatory Aid- None/Bed Rest/Nurse Assist (0 pts). Gait- Normal/Bed Rest/Wheelchair (0 pts) Mental Status- Oriented to own ability (0 pts). Total Roman Fall Scale indicates No Risk (0-24 pts). Assessment: 13:22 Reassessment: Patient appears in no apparent distress at this time. Patient is alert, db oriented x 3, equal unlabored respirations, skin warm/dry/pink. patient states is 15 weeks started bleeding this AM. States has also been vomiting and is unable to hold anything down. Pain: Denies pain. GI: No deficits noted. Abdomen is flat, non-distended. 16:06 Reassessment: Patient appears in no apparent distress at this time. Patient and/or db family updated on plan of care and expected duration. Pain level reassessed. Patient is alert, oriented x 3, equal unlabored respirations, skin warm/dry/pink. patient given food for PO challenge Patient states feeling better. Patient states symptoms have improved. 16:37 Reassessment: Patient appears in no apparent distress at this time. Patient and/or db family updated on plan of care and expected duration. Pain level reassessed. Patient is alert, oriented x 3, equal unlabored respirations, skin warm/dry/pink. patient tolerated food and juice Patient states feeling better. Patient states symptoms have improved. Vital Signs: 11:50 BP 125 / 64; Pulse 95; Resp 16; Temp 97.7(TE); Pulse Ox 100% on R/A; Weight 67.13 kg; ss Height 5 ft. 2 in. (157.48 cm); Pain 0/10; 15:00 BP 103 / 60; Pulse 75; Resp 16; Pulse Ox 100% on R/A; db 15:30 BP 98 / 58; Pulse 74; Resp 16; Pulse Ox 100% ; db 16:37 BP 105 / 63; Pulse 65; Resp 18; Pulse Ox 100% on R/A; db 11:50 Body Mass Index 27.07 (67.13 kg, 157.48 cm) ED Course: 11:22 Patient arrived in ED. as 11:53 Triage completed. ss 11:53 Arm band placed on right wrist. ss 13:15 Belia oG, RN is Primary Nurse. db 13:16 Gabriel Centeno PA is PHCP. cp 13:16 Parveen Back MD is Attending Physician. cp 14:09 US OB Limited In Process Unspecified. EDMS 14:25 Inserted saline lock: 22 gauge in right antecubital area, using aseptic technique. iw Blood collected. 15:30 Patient has correct armband on for positive identification. Bed in low position. Call db light in reach. Side rails up X 1. 15:30 No provider procedures requiring assistance completed. db 16:38 IV discontinued, intact, bleeding controlled, No redness/swelling at site. db Administered Medications: 14:38 Drug: Pepcid (famotidine) 20 mg Route: IVP; Site: right antecubital; db 15:44 Follow up: Response: No adverse reaction db 14:39 Drug: NS 0.9% 1000 ml Route: IV; Rate: 1 bolus; Site: right antecubital; db 15:42 Follow up: IV Status: Completed infusion; IV Intake: 1000ml db 15:44 Follow up: Response: No adverse reaction db 14:39 Drug: Zofran (Ondansetron) 4 mg Route: IVP; Site: right antecubital; db 15:44 Follow up: Response: No adverse reaction db Medication: 15:30 VIS not applicable for this client. db Intake: 15:42 IV: 1000ml; Total: 1000ml. db Outcome: 16:21 Discharge ordered by MD. cp 16:38 Discharged to home ambulatory, with family. db 16:38 Condition: stable 16:38 Discharge instructions given to patient, family, Instructed on discharge instructions, follow up and referral plans. 16:53 Patient left the ED. ss Signatures: Dispatcher [employer] Jennifer Block Irene, KELSEY COLE Alia Lucero RN RN Gabriel Centeno PA PA cp Belia Go, KELSEY RN db Corrections: (The following items were deleted from the chart) 11:53 11:53 Social history: Smoking status: Patient denies any tobacco usage or history of. ssss 16:55 16:54 Reassessment: Patient appears in no apparent distress at this time. Patient db and/or family updated on plan of care and expected duration. Pain level reassessed. Patient is alert, oriented x 3, equal unlabored respirations, skin warm/dry/pink. Patient states feeling better. Patient states symptoms have improved. db
[2022-05-29 17:07] VITALS: BP 125/64; TEMP 97.7; O2SAT 100
== END 2022-05-29 16:53 | disposition home or self-care (01) ==
LOC: ER 11:20
DX: O20.0 Threatened abortion (principal); O21.9 Vomiting of pregnancy, unspecified; Z3A.15 15 weeks gestation of pregnancy
CPT/HCPCS: 96361; 85025; 80048; 36415; 86900; 86901; 84702; 81003; 76815; 96375; 96374; 99284; J7030; J2405

== ENCOUNTER 2023-02-10 13:56 | Emergency (ER) | payer OTHER ==
--- OUTSIDE RECORDS SUMMARY | 2023-02-10 14:02 | XMS REPORT | Continuity of Care Document ---
:2000 Author Organization [facility] t Address [address] [facility]. [address] [place] [address] Care Team Providers Name Role Phone Frederick Durán MD Primary Care Physician Brittnee Ramirez Attending Clinician Unavailable Luis Burciaga Attending Clinician Unavailable SUZY URIOSTEGUI Attending Clinician Unavailable Gila PICKERING, Suzy Rosales Attending Clinician Effie Marquez Attending Clinician Unavailable ANTONIA PIKE Attending Clinician Unavailable Shahzad PICKERING, Antonia Garzon Attending Clinician Ghanshyam Chavez Attending Clinician Unavailable , Osvaldo Evangelista Attending Clinician Unavailable Frederick Durán MD Attending Clinician FREDERICK DURÁN Attending Clinician Unavailable AR RICHARDSON Attending Clinician Unavailable Ar Richardson MD Attending Clinician Kishor Bishop Attending Clinician Unavailable ELINA ROME Attending Clinician Unavailable Amauri RUSS, Madhavi Delcid Attending Clinician MADHAVI ROMAN Attending Clinician Unavailable Dottie Chavez Attending Clinician Unavailable Nathalia Moss Attending Clinician Ny Khan MD Attending Clinician Olivier SUPERVISOR PUMPING, Aneta Esparza Attending Clinician Unknown, Attending Attending Clinician Unavailable UNKNOWN, ATTENDING Attending Clinician Unavailable Pearl Chavez Attending Clinician Unavailable Aide COLE, Tashia Rae Attending Clinician Unavailable Berhane SUPERVISOR PUMPING, Lily Hummel Attending Clinician Lydia Bojorquez MD Attending Clinician Doctor Unassigned, [place] Attending Clinician Unavailable Liberty Cormier Attending Clinician LIBERTY CAMP Attending Clinician Unavailable Wiliam MIRELES, Antonia Attending Clinician Kassidy Barnes Attending Clinician Elina Rome MD Attending Clinician [phone] KASSIDY ARENAS Attending Clinician Unavailable REJI SOTO Attending Clinician Unavailable Ivet PICKERING, Aiden Conde Attending Clinician SOSA ADAMES Attending Clinician Unavailable Sosa Adames MD Attending Clinician Santiago COLE, Sandra Hilton Attending Clinician Unavailable Ashley Avendano DO Attending Clinician Orquidea PICKERING, Mike Jaffe Attending Clinician [phone] Sujata Nixon Attending Clinician [phone] SUZY URIOSTEGUI Admitting Clinician Unavailable [place] KHAN Admitting Clinician Unavailable Brittnee Ramirez Admitting Clinician Unavailable Elina Rome Admitting Clinician Unavailable Luis Burciaga Admitting Clinician Unavailable Suzy Uriostegui MD Admitting Clinician Emily Artis Admitting Clinician Unavailable ANTONIA PIKE Admitting Clinician Unavailable Effie Solitario Admitting Clinician Unavailable Physician, No Primary or Family Admitting Clinician UnavailDottie Mitchell Admitting Clinician Unavailable Ny Khan MD Admitting Clinician Pearl Chavez Admitting Clinician Unavailable SOSA ADAMES Admitting Clinician Unavailable Payers Payer Name Policy Type Policy Number Effective Date Expiration Date S mónica [facility] [id number] 2021 00:00:00 [facility] [id number] 2020 00:00:00 Problems Condition Condition Condition Status Onset Resolution Last Treating Co mments Source Name Details Category Date Date Treatment Clinician Date Anxiety Anxiety Disease Active Univers [facility] Depression Depression Disease Active U nivers [facility] Allergies, Adverse Reactions, Alerts Allergy Allergy Status Severity Reaction(s) Onset Inactive Treating Comm ents Source Name Type Date Date Clinician MARCUS DA Active SV 0 [facility] ACID- 1-16 Clear THROAT 00:00: [place] SWELLING 00 [facility] No Known DA Active U [facility] Allergie 5-08 Clear s 00:00: [place] 00 [facility] No Known DA Active U [facility] Allergie 5-08 Clear s 00:00: [place] 00 [facility] MALIC DA Active SV TONGUE [facility] ACID SWELLING, 608 Clear THROAT 00:00: [place] CLOSING [facility] Malic Drug Active Swelling Univers Acid Allergy 6-08 ity of 00:00: [place] 00 Medical Branch MALIC DRUG Active High Swelling 2018- Univers ACID INGREDI 6-08 ity of 00:00: 00 Medical Branch SOUR DRUG Active Anaphylaxis 2018- Unive rs MOREAU INGREDI 4-30 ity of 00:00: 00 Medical Branch Sour Propensi Active Anaphylaxis 2018- Sour Uni vers [place] ty to 4-30 flavoring ity of adverse 00:00: on all [place] reaction 00 [facility] [place] Social History Social Habit Start Date Stop Date Quantity Comments Source ASSERTION 2022-02-27 [facility] 00:00:00 [facility] Exposure to 2022-10-07 2022-10-17 Not sure [facility] SARS-CoV-2 00:00:00 15:17:00 [facility] (event) [place] Alcohol intake 2022-10-17 2022-10-17 Ex-drinker [facility] 00:00:00 00:00:00 (finding) [facility] Tobacco use and 2022-02-25 2022-02-25 Smokeless tobacco Un iversity of exposure 00:00:00 00:00:00 non-user [facility] Sex Assigned At 2000 2002 Universit y of 00:00:00 00:00:00 [facility] Smoking Status Start Date Stop Date Source Never smoked tobacco [facility] Medications Ordered Filled Start Stop Current Ordering Indication Dosage Frequency Signature Comments Components Source Medication Medication Date Date Medication? Clinician (SIG) Name Name FLUTICASONE 2020-07 Yes [id number] SPRAY 1 Univers PROPIONATE 2-02 SPRAY INTO ity of 50 00:00: EACH [place] mcg/actuati 00 NOSTRIL Medic al on nasal EVERY DAY Branch spray FLUTICASONE 2020-07 Yes [id number] SPRAY 1 Univers PROPIONATE 2-02 SPRAY INTO ity of 50 00:00: EACH [place] mcg/actuati 00 NOSTRIL Medic al on nasal EVERY DAY Branch spray EPINEPHrine 2019-07 Yes [id number] INJECT 0.3 Univers 0.3 mg/0.3 1-30 ML BY ity of mL 00:00: INTRAMUSCU [place] injection 00 LAR ROUTE Medic al ONCE NOW Branch FOR 1 DOSE. EPINEPHrine 2019-07 Yes [id number] INJECT 0.3 Univers 0.3 mg/0.3 1-30 ML BY ity of mL 00:00: INTRAMUSCU [place] injection 00 LAR ROUTE Medic al ONCE NOW Branch FOR 1 DOSE. Immunizations Ordered Immunization Filled Immunization Date Status Commen ts Source Name Name Meningococcal 2019-02-23 Completed University of Polysaccharide 00:00:00 [place] [facility] (groups A, C, Y and Branc h W-135) conjugate vaccine (MCV4P) Meningococcal 2019-02-23 Completed University of Polysaccharide 00:00:00 [place] [facility] (groups A, C, Y and Branc h W-135) conjugate vaccine (MCV4P) DTP 2005-01-21 Completed University of 00:00:00 [facility] HIB 3 Dose Schedule 2005-01-21 Completed Unive rsity of 00:00:00 [facility] HEPATITIS A 2005-01-21 Completed University of 00:00:00 [facility] Pneumococcal 7 2005-01-21 Completed University of Conjugate, PCV7 00:00:00 [facility] ical (Prevnar7) Branch DTP 2005-01-21 Completed University of 00:00:00 [facility] HIB 3 Dose Schedule 2005-01-21 Completed Unive rsity of 00:00:00 [facility] HEPATITIS A 2005-01-21 Completed University of 00:00:00 [facility] Pneumococcal 7 2005-01-21 Completed University of Conjugate, PCV7 00:00:00 [facility] ical (Prevnar7) Branch MMR 2003-12-25 Completed University of 00:00:00 [facility] Polio (IPV/OPV) 2003-12-25 Completed Universit y of 00:00:00 [facility] Pneumococcal 7 2003-12-25 Completed University of Conjugate, PCV7 00:00:00 [facility] ical (Prevnar7) Branch MMR 2003-12-25 Completed University of 00:00:00 [facility] Polio (IPV/OPV) 2003-12-25 Completed Universit y of 00:00:00 [facility] Pneumococcal 7 2003-12-25 Completed University of Conjugate, PCV7 00:00:00 [facility] ical (Prevnar7) Branch DTP 2003-06-19 Completed University of 00:00:00 [facility] HIB 3 Dose Schedule 2003-06-19 Completed Unive rsity of 00:00:00 [facility] Hep B, Adol or Pedi 2003-06-19 Completed Unive rsity of Dosage 00:00:00 [facility] Polio (IPV/OPV) 2003-06-19 Completed Universit y of 00:00:00 [facility] DTP 2003-06-19 Completed University of 00:00:00 [facility] HIB 3 Dose Schedule 2003-06-19 Completed Unive rsity of 00:00:00 [facility] Hep B, Adol or Pedi 2003-06-19 Completed Unive rsity of Dosage 00:00:00 [facility] Polio (IPV/OPV) 2003-06-19 Completed Universit y of 00:00:00 [facility] Hep B, Adol or Pedi 2002 Completed Unive rsity of Dosage 00:00:00 [facility] Hep B, Adol or Pedi 2002 Completed Unive rsity of Dosage 00:00:00 [facility] Vital Signs Vital Name Observation Time Observation Value Comments Source Systolic blood 2022-10-17 20:18:00 99 mm[Hg] Univer sity of pressure [facility] Diastolic blood 2022-10-17 20:18:00 63 mm[Hg] Unive rsity of pressure [facility] Body temperature 2022-10-17 20:18:00 36.78 Harmony [facility] Respiratory rate 2022-10-17 20:18:00 16 /min [facility] Heart rate 2022-10-17 19:56:00 92 /min [facility] Body height 2022-10-17 19:56:00 157.5 cm [facility] Body weight 2022-10-17 19:56:00 71.668 kg [facility] BMI 2022-10-17 19:56:00 28.90 kg/m2 [facility] Oxygen saturation in 2022-10-17 19:56:00 99 /min [facility] blood by [facility] Pulse oximetry Branch Procedures Procedure Date / Time Performed Performing Clinician Gisele rosario [id number] 2022-10-31 00:00:00 MAXBA [facility] [id number] 2022-10-30 00:00:00 [facility] [id number] 2021-03-26 00:00:00 MAXBA [facility] [id number] 2021-03-26 00:00:00 MAXBA [facility] Encounters Start End Encounter Admission Attending Care Care Encounter Source Date/Time Date/Time Type Type Clinicians Facility Department ID 2022-10-17 Outpatient X [facility] [id number] Univers 17:56:29 ity [facility] 2021-05-19 Outpatient X [facility] [id number] Univers 04:10:53 ity of [facility] 2021-05-19 Emergency [facility] [id number] Univers 04:10:48 ity of [facility] 2021-05-18 Emergency [facility] [id number] Univers 12:59:52 ity of [facility] 2021-05-18 Emergency [facility] [id number] Univers 03:01:47 ity [facility] 2020-11-23 Inpatient [place], HCACL HC[facility]L [id number] [facility] 00:57:29 Brittnee 52 [facility] 2020-10-05 Inpatient HCACL HCACL [id number] [facility] 01:43:54 61 [facility] 2020-08-22 Inpatient HCACL KAELA [id number] [facility] 20:18:00 05 [facility] 2020-02-15 Inpatient HCACL KAELA [id number] [facility] 22:49:00 35 [facility] 2022-10-30 2022-11-02 Inpatient EL Patrica, [facility]ACL OBPP [id number] [facility] 19:17:00 18:53:00 Luis 14 [facility] 2022-10-17 2022-10-17 Outpatient X AD, [facility] [id number] Univers 14:59:00 17:00:00 SUZY ity [facility] 2022-10-17 2022-10-17 [facility] [id number] Univers 14:59:00 17:00:00 Suzy SAN [id number] ity [facility] [id number] [facility] [phone] [place] [address] Branch 2022-09-26 2022-09-27 Inpatient EM Maximos, HCACL OBANTE [id number] [facility] 22:39:00 17:00:00 Luis 72 [facility] 2022-09-07 2022-09-14 Inpatient EM Patrica, [facility] EDCL OBANTE [id number] [facility] 23:59:00 10:45:00 Luis 00 [facility] 2022-08-03 2022-08-03 Emergency EM Mojgan HCACL OLGA [id number] [facility] ED 15:04:00 16:59:00 y Efife 82 Sveta r [facility] 2022-03-20 2022-03-20 Outpatient R SHAHZAD [facility] [id number] Univers 14:10:00 14:10:00 [facility] 2022-03-20 2022-03-20 Telephone MARISOL Pike [id number] Univers 00:00:00 00:00:00 Antonia P PEDIATRIC [id number] ity [id number] [place] [address] Branch [facility]ARE [facility] 2022-03-16 2022-03-16 Outpatient R SHAHZAD [facility] [id number] Univers 14:10:00 14:10:00 [facility] 2022-03-13 2022-03-13 Outpatient Dao PIKE [facility] [id number] Univers 13:30:00 13:30:00 [facility] 2022-03-13 2022-03-13 Outpatient R SHAHZAD [facility] [id number] Univers 11:10:00 11:10:00 [facility] 2022-03-06 2022-03-06 Emergency EM Mahsa, [facility] EDCL AERS [id number] [facility] 15:06:00 16:12:00 Oluwadolapo 45 Cl [facility] 2022-03-04 2022-03-04 Telephone MARISOL Pike [id number] Univers 00:00:00 00:00:00 Antonia P PEDIATRIC [id number] [id number] [id number] [facility] 225 Branch CARE [facility] 2022-03-03 2022-03-03 Telephone MARISOL Pike [id number] Univers 00:00:00 00:00:00 Antonia P PEDIATRIC [id number] [id number] [place] [address] Branch [facility] 2022-03-02 2022-03-02 Outpatient R SHAHZAD [facility] [id number] Univers 17:43:24 23:59:00 [facility] 2022-03-02 2022-03-02 Outpatient R SHAHZAD [facility] [id number] Univers 17:43:24 23:59:00 [facility] 2022-03-02 2022-03-02 [facility] BEULAH Pike [id number] Univers 17:30:00 23:59:00 Encounter Antonia Garzon Y HEALTH 350.1.13.10 ity of CL[place] [id number] [facility] 806 Branch 2022-02-26 2022-02-26 Nurse Nurse, Osvaldo DAMON 1.2.84 0.114 [id number] Univers 14:50:00 15:10:00 Visit Frederick Durán PEDIATRIC 350.1.13.10 [place] [id number] [facility] 314 Branch [facility] 2022-02-26 2022-02-26 Outpatient R FREDERICK DURÁN [facility] [id number] Univers 14:50:00 14:50:00 ity [facility] 2022-02-25 2022-02-25 Outpatient R SHAHZAD [facility] [id number] Univers 14:45:00 23:59:00 ANTONIA ity [facility] 2022-02-25 2022-02-25 [facility] MARISOL Pike [id number] Univers 14:45:00 23:59:00 Encounter Antonia P PEDIATRIC 350.1.13.10 [place] [id number] [facility] 809 [facility] 2022-02-25 2022-02-25 Outpatient Dao PIKE [facility] [id number] Univers 13:50:00 15:29:57 [facility] 2022-02-25 2022-02-25 Office MARISOL Pike [id number] Univers 13:50:00 15:29:57 Visit Antonia P PEDIATRIC 350.1.13.10 [place] [id number] [facility] 225 [facility] 2022-02-23 2022-02-23 [facility] [id number] Univers 15:50:00 15:50:00 [facility] 2022-02-12 2022-02-12 Emergency X DEBRA [facility] ERT [id number] Univers 21:31:00 22:34:00 [facility] 2022-02-12 2022-02-12 [facility] [id number] Univers 21:31:00 22:34:00 [facility] [id number] it [place] of [place] [id number] [address] ([facility]) 2021-11-11 2021-11-11 Emergency EM Bishop, [facility] AERS [id number] [facility] ED 00:16:00 00:55:00 Kishor 36 [facility] 2021-11-04 2021-11-04 Outpatient Dao ROME [facility] [id number] Univers 15:30:00 15:30:00 ELINA ity o f [facility] 2021-08-08 2021-08-08 Emergency EM Oalmita, [facility] AERS [id number] [facility] ED 22:06:00 22:30:00 Oluwadolapo 00 Cl [facility] 2021-06-13 2021-06-13 Refill Madhavi Roman [id number] [id number] Univers 00:00:00 00:00:00 Ali PEDIATRIC 350.1.13.10 it[place] [id number] [place] [address] Branch [facility] 2021-05-12 2021-05-12 Office AmauriMadhavi Marisol 1.2.840.114 [id number] Univers 13:41:54 14:13:40 Visit Ali Pediatric [id number] ity [place] [id number] [address] 2021-05-12 2021-05-12 Outpatient R MADAHVI ROMAN [facility] [id number] [facility] [place] [facility] 13:30:00 13:30:00 ity of [facility] 2021-03-25 2021-03-28 Inpatient EL Maximos, HCACL OBPP [id number] [facility] 14:56:00 15:32:00 Luis 40 [facility] 2021-03-12 2021-03-13 Emergency EM Billy [facility]L OLGA [id number] [facility] 21:07:00 01:05:00 Puckly, 24 [facility] 2021-03-01 2021-03-01 Emergency EM Maximos, HCACL OLGA [id number] [facility] 05:33:00 09:00:00 Luis 85 [facility] 2021-02-17 2021-02-17 Emergency EM Billy HCACL OLGA [id number] [facility] 15:17:00 16:47:00 Puckly, 82 [facility] 2021-02-12 2021-02-12 Emergency EM Billy HCACL OLGA [id number] [facility] 19:14:00 22:29:00 Puckly, 18 [facility] 2021-01-29 2021-01-29 Emergency EM Bhalani, HCACL OLGA [id number] [facility] 02:30:00 03:50:00 Dottie 33 [facility] 2021-01-13 2021-01-13 Emergency Nathalia Redding [facility] 1.2.840 .114 [id number] Univers 01:18:00 02:30:00 Ny Khan 350.1.13.10 ity of [place] 4.2.7.2.686 [facility] [place] [id number] [place] [address] Branch 2021-01-13 2021-01-13 Emergency Nathalia Redding [facility] 1.2.840 .114 [id number] 01:18:00 02:30:00 Ny Khan 350.1.13.10 [place] 4.2.7.2.686 [place] [id number] [facility] 2021-01-11 2021-01-11 Urgent Grow, Aneta Vilma Damon 1.2.840 .114 [id number] [facility] [place] [facility] 17:51:24 18:25:45 Care Unknown, Attending Pediatric 350.1.13. 10 ity of s and 4.2.7.2.686 [facility] s Adult [id number] [place] [address] Branch Care Clinic 2021-01-11 2021-01-11 Urgent Marisol Aguayo 1.2.840.114 [id number] 17:51:24 18:25:45 Care Aneta Pediatric 350.1.13.10 Vilma s and 4.2.7.2.686 Adult [id number] [facility] 2021-01-11 2021-01-11 Outpatient R UNKNOWN, [facility] [id number] [facility] [place] [facility] 18:00:00 18:00:00 ATTENDING ity of [facility] 2020-12-25 2020-12-25 Emergency EM LUCINDA Chavez OLGA [id number] [facility] 15:08:00 18:26:00 Pearl 03 [facility] 2020-11-23 2020-11-23 Emergency EM LUCINDA Ramirez OLGA [id number] [facility] 00:02:00 02:58:00 Brittnee 52 [facility] 2020-11-01 2020-11-01 Letter NICOLAS Noble 1.2.840.114 [id number] Univers 00:00:00 00:00:00 (Out) Tashia SHELTON 350.1.13.10 it y of [facility] 4.2.7.2.686 [place]o as [id number] [facility] 019 Branch 2020-11-01 2020-11-01 Lydia NICOLAS Noble 1.2.840.114 [id number] 00:00:00 00:00:00 (Out) Tashia SHELTON 350.1.13.10 [facility] 4.2.7.2.686 [id number] [facility] 2020-10-30 2020-10-31 [facility] [id number] Univers 22:11:00 00:46:00 Lily Hummel Merna 350.1.13.10 ity [facility] 4.2.[place] [id number] [address] 2020-10-30 2020-10-31 [facility] [id number] 22:11:00 00:46:00 Lily Estephanie Merna 350.1.13.10 [place] 4.2.7.2.686 [place] [id number] [facility] 2020-10-26 2020-10-26 Urgent Grow, Aneta Vilma Damon 1.2.840 .114 [id number] Univers 18:33:25 19:03:11 Care Unknown, Attending Pediatric 350.1.13. 10 ity of [place] [phone] [address] Care Clinic 2020-10-26 2020-10-26 Urgent GrowMarisol 1.2.840.114 [id number] 18:33:25 19:03:11 Care Aneta Pediatric 350.1.13.10 Vilma s and 4.2.7.2.686 Adult [id number] [place] [address] Care Clinic 2020-10-26 2020-10-26 Outpatient R UNKNOWN, [facility] [id number] Univers 19:00:00 19:00:00 ATTENDING ity of [facility] 2020-09-18 2020-09-19 Emergency [facility] [id number] Univers 23:47:00 01:47:00 Lydia San 350.1.13.10 ity of [place] 4.2.7.2.[place] [id number] [facility] 084 [place] 2020-09-18 2020-09-19 Emergency [facility] [id number] 23:47:00 01:47:00 Lydia San 350.1.13.10 [place] 4.2.7.2.686 [place] [id number] [facility] 2020-09-18 2020-09-18 Orders Doctor NICOLAS 1.2.840.114 [id number] Univers 00:00:00 00:00:00 Only Unassigned, NIKITA 350.1.13.10 ity of [place] [facility] 4.2.7.2.686 [place]o as [id number] [place] [address] Branch 2020-09-18 2020-09-18 Orders Doctor NICOLAS 1.2.840.114 [id number] 00:00:00 00:00:00 Only Unassigned, NIKITA 350.1.13.10 [place] [facility] 4.2.7.2.686 [id number] 009 2020-08-22 2020-08-22 Office Madhavi Roman 1.2.840.114 [id number] Univers 15:52:31 16:12:31 Visit Ali Pediatric 350.1.13.10 ity of [place] and [place] [id number] [place] [address] Branch Care Clinic 2020-08-22 2020-08-22 Office Madhavi Roman 1.2.840.114 [id number] 15:52:31 16:12:31 Visit Ali Pediatric 350.1.13.10 s and 4.2.7.2.686 Adult [id number] [place] [address] Care Clinic 2020-08-22 2020-08-22 Outpatient MADHAVI MCNAIR [facility] [id number] Univers 16:00:00 16:00:00 ity of [facility] 2020-08-22 2020-08-22 Outpatient MADHAVI MCNAIR [facility] [id number] Univers 13:40:00 13:40:00 ity of [facility] 2020-08-13 2020-08-13 Telephone Marisol Camp 1.2.840.114 [id number] Univers 00:00:00 00:00:00 [facility] 350.1.13.10 ity of [place] [id number] [address] 2020-08-09 2020-08-09 Telephone Marisol Camp 1.2.840.114 [id number] Univers 00:00:00 00:00:00 [facility] 350.1.13.10 ity of [place] [id number] [address] 2020-08-09 2020-08-09 Telephone Marisol Camp 1.2.840.114 [id number] Univers 00:00:00 00:00:00 [facility] 350.1.13.10 ity of [place] and [place] [id number] [address] 2020-08-08 2020-08-08 Office Marisol Camp 1.2.840.114 [id number] Univers 14:46:51 16:51:17 Visit [facility] 350.1.13.10 ity of [place] and [place] [id number] [address] 2020-08-08 2020-08-08 Outpatient R ZOË [facility] [id number] Univers 15:00:00 15:00:00 LIBERTY ity of [facility] 2020-07-03 2020-07-03 Orders Doctor VALENZUELA 1.2.840.114 [id number] Univers 00:00:00 00:00:00 Only Unassigned, NIKITA 350.1.13.10 ity of [place] [facility] 4.2.7.2.686 [place] as [phone] [address] 2020-06-17 2020-06-17 Office Marisol Swain 1.2.840.114 [id number] Univers 13:35:31 14:15:17 Visit Antonia Pediatric 350.1.13.10 ity of [place] and [place].2.[place] [id number] [address] 2020-06-17 2020-06-17 Outpatient Dao ROME [facility] [id number] Univers 13:40:00 13:40:00 ELINA ity o f [facility] 2020-05-18 2020-05-18 Refill Marisol rAenas 1.2.840.114 [id number] Univers 00:00:00 00:00:00 Kassidy J Pediatric 350.1.13.10 it[place] [id number] [address] 2020-05-14 2020-05-14 Telephone Marisol [place] 1.2.840.114 [id number] Univers 00:00:00 00:00:00 Elina Pediatric 350.1.13.10 ity of [place] and 4.2.7.2.686 [place] Adult [phone] [address] 2020-05-06 2020-05-06 Telephone Marisol [place] 1.2.840.114 [id number] Univers 00:00:00 00:00:00 Elina Pediatric 350.1.13.10 ity of [place] and 4.2.7.2.686 [place] Adult [phone] [address] 2020-04-26 2020-04-26 Office Marisol Arenas 1.2.840.114 [id number] Univers 15:36:43 15:56:43 Visit Kassidy J Pediatric 350.1.13.10 it[place] [phone] [address] 2020-04-26 2020-04-26 Outpatient Dao ARENAS [facility] [id number] Univers 15:40:00 15:40:00 KASSIDY ity of [facility] 2020-04-15 2020-04-15 RefMarisol Mullins 1.2.840.114 [id number] Univers 00:00:00 00:00:00 [facility] 350.1.13.10 ity [place] [id number] [address] 2020-01-03 2020-01-03 Outpatient R BRITTANY [facility] [id number] Univers 14:40:00 14:40:00 REJI ity of [facility] 2019-10-27 2019-10-27 Telephone Aiden Cooney 1.2.840.114 [id number] Univers 00:00:00 00:00:00 [facility] Pediatric 350.1.13.10 ity of [place] [id number] [address] 2019-10-18 2019-10-19 Emergency [facility] [id number] Univers 23:49:28 02:20:00 SOSA ity [facility] 2019-10-18 2019-10-19 Emergency [facility] 1.2.840.114 [id number] Univers 23:49:28 02:20:00 [facility] 350.1.13.10 it y of [facility] [place] [phone] [address] ([facility]) 2019-10-18 2019-10-18 Nurse NICOLAS Henderson 1.2.840.114 [id number] Univers 00:00:00 00:00:00 Triage Sandra Hilton NIKITA 350.1.13.10 ity of [facility] 4.2.7.2.686 [place] [phone] [address] 2019-10-09 2019-10-09 Telephone Aiden Cooney 1.2.840.114 [id number] Univers 00:00:00 00:00:00 [facility] 350.1.13.10 ity of [place] [id number] [address] 2019-09-21 2019-09-21 Office Marisol Camp 1.2.840.114 [id number] Univers 13:27:07 17:09:32 Visit [facility] 350.1.13.10 ity of [place] [id number] [address] 2019-09-21 2019-09-21 Outpatient Dao CAMP [facility] [id number] Univers 13:40:00 13:40:00 LIBERTY ity of [facility] 2019-08-30 2019-08-30 Office Marisol Pike 1.2.840.114 [id number] Univers 15:01:37 15:11:37 Visit Antonia P Pediatric 350.1.13.10 ity of [place] [id number] [address] 2019-08-22 2019-08-22 Office Aiden Coonye 1.2.840.114 [id number] Univers 15:33:37 15:43:37 Visit [facility] 350.1.13.10 ity of [place] and [place] [id number] [address] 2019-08-21 2019-08-21 Emergency Juan Alberto [facility] 1.2.840.114 [id number] Univers 09:14:31 10:35:00 Ashley San 350.1.13.10 ity of [place].2.[place] [phone] [place] [id number] [place] 2019-08-10 2019-08-10 Nurse Nurse, Osvaldo Damon 1.2.84 0.114 [id number] Univers 11:01:47 11:21:47 Visit Antonia Pike Pediatric 350.1.13.10 ity of [place] and [place] [phone] [address] 2019-08-09 2019-08-09 Office Marisol Pike 1.2.840.114 [id number] Univers 09:22:22 12:41:52 Visit Antonia Garzon Pediatric 350.1.13.10 ity of [place] and [place] [phone] [address] 2019-08-09 2019-08-09 Orders NICOLAS Pike 1.2.840.114 [id number] Univers 00:00:00 00:00:00 Only Antonia SHELTON 350.1.13.10 it y of HOSPITAL 4.2.7.2.686 [place] [phone] [address] 2019-07-28 2019-07-28 Orders NICOLAS 1.2.840.114 [id number] Univers 00:00:00 00:00:00 Only Unassigned, NIKITA 350.1.13.10 ity of [facility] 4.2.7.2.686 [place] [phone] [address] 2019-03-30 2019-03-30 Office Marisol Arenas 1.2.840.114 [id number] Univers 12:55:51 13:15:51 Visit Kassidy J Pediatric 350.1.13.10 ity of [place] and [place] [phone] [facility] [address] [facility] 2019-03-29 2019-03-29 Telephone Marisol [place] 1.2.840.114 [id number] Univers 00:00:00 00:00:00 Elina Pediatric 350.1.13.10 ity of [place] and 4.2.7.2.686 [place] Adult [phone] [facility] [address] [facility] 2019-03-27 2019-03-27 Office Aiden Cooney 1.2.840.114 [id number] Univers 09:41:28 09:51:28 Visit [facility] 350.1.13.10 ity of [place] and [place] [phone] [facility] [address] [facility] 2019-03-22 2019-03-22 Hospital Aiden Cooney 1.2.840.114 [id number] Univers 15:41:22 23:59:00 Encounter [facility] 350.1.13.10 ity of s and [place].2.[place] [phone] [facility] [address] [facility] 2019-03-21 2019-03-22 Office Mike Heard 1.2 .840.114 [id number] [facility] 15:31:39 09:26:38 Visit IvetAiden [place] [facility] 350.1.13. 10 ity of s and [place].7.2.[place] [phone] [address] 2019-03-08 2019-03-08 Office Aiden Cooneyin 1.2.840.114 [id number] Univers 09:03:07 09:13:07 Visit [facility] 350.1.13.10 ity of s and [place].2.[place] [id number] [address] 2019-03-03 2019-03-03 Office Aiden Cooney Marisol 1.2.840.114 [id number] [facility] 10:38:58 11:09:50 Visit [facility] 350.1.13.10 ity of s and [place] [phone] [address] 2019-02-10 2019-02-10 [facility] 1.2.840.114 [id number] [facility] 15:44:39 23:59:00 Encounter njumon, SPECIALTY 350.1.13.10 ity of [place] [facility] [place].2.[place] AT [phone] [address] 2019-02-10 2019-02-10 [facility] 1.2.840.114 [id number] Univers 08:00:00 15:43:00 Encounter njumon, SPECIALTY 350.1.13.10 ity of [place]2.[place] AT [phone] [address] Results Test Description Test Time Test Comments Results Result Comments Source SURGICAL 2022-11-03 14:08:00 Test Item Value Reference Range Interpretation Comme nts SURGICAL RUN (test DATE: 11/03/22 [place] - LAB PAGE 1 RUN TIME: 1409 Specimen Inquiry RUN USER: INTERFACE code = ARTEMIO SR) ENT: LUIS EDMONDS LOC: JORDI U #: [id number] AGE/SX: 21/F ROOM: [facility] RE10/30/22REG DR: Luis Burciaga MD : 02 BED: 1 DIS: 11/02/22 STATUS: DIS IN TLOC: SPEC #: [id number] RECD: 0 11/02/22 STATUS: GLENN REGreta #: [id number] SLOAN: 10/31/22- SUBM DR: Luis Burciaga MD ENTERED: 11/02/22 SP TYPE: SURGICAL OTHR DR: ORDERED: [id number], ANATOMIC SPEC PROCEDURES: 06611 () TISSUES: A. PLACENTA, THIRD TRIMESTER (28 + WEEKS) CLINICAL HISTORY BRITTNY GUERIN FINAL DIAGNOSIS Placenta: Third trimester placenta with acute chorionitis, deciduitis; 713 g (expected cgup820 g); trivascular umbilical cord without significant inflammation.. G ROSS DESCRIPTION Received in formalin and designated placenta is 1 placenta measuring 19.5 x 18 x 3 cm withattached umbilical cord measuring 34 cm in length, 1.9 cm in diameter, arising 4.4 cm apartmargin. Sections are submitted as a A-D. The maternal surface appears intact witha ttached blood clots. The placenta weighs 713 g. Technical component performed at [facility],[address] [place] [address], [place] [address] Unless gross only, the diagnosis is based upon m icroscopic examination.Immunohistochemistry: This test was developed and its performance characteristicsdetermined by this laboratory. It has not been approved nor does it need approvalby the [place] FDA. Appro priate positive and negative controls are reviewed and judgedto be acceptable. This laboratory is certified under the Clinical Laboratory ImprovementAmendments (CLIA-88) as qualified to pe [facility] high complexity clinical laboratory testing. CLINICAL INFORMATION 37.1 IUP Signed SIGNATURE ON FILE Yno Emmanuel 11/03/22 1408 END OF REPORT CBC W/AUTO [id number] 07:54:00 Test Item Value Reference Range Interpretation Comments WHITE BLOOD CELL (test code = 12.4 x10 3/uL 4.5-11.0 H WBC) RED BLOOD CELL (test code = 3.19 x10 6/uL 3.54-5.02 L RBC) HEMOGLOBIN (test code = HGB) 8.3 g/dL 11.0-15.0 L HEMATOCRIT (test code = HCT) 27.2 % 33.0-45.0 L MEAN CELL VOLUME (test code = 85.3 fL 81.0-99.0 N MCV) MEAN CELL HGB (test code = MCH) 26.0 pg 27.0-33.0 L MEAN CELL HGB CONCETRATION 30.5 g/dL 33.0-37.0 L (test code = MCHC) RED CELL DISTRIBUTION WIDTH CV 16.1 % 11.5-14.5 H (test code = RDW) RED CELL DISTRIBUTION WIDTH SD 50.2 fL 37.0-54.0 N (test code = RDW-SD) PLATELET COUNT (test code = 289 x10 3/uL 150-400 N PLT) MEAN PLATELET VOLUME (test code 11.3 fL 7.0-9.0 H = MPV) NEUTROPHIL % (test code = NT%) 62.8 % 56.0-77.0 N IMMATURE GRANULOCYTE % (test 0.5 % 0.0-2.0 N code = IG%) LYMPHOCYTE % (test code = LY%) 25.7 % 14.0-32.0 N MONOCYTE % (test code = MO%) 9.7 % 4.8-9.0 H EOSINOPHIL % (test code = EO%) 0.8 % 0.3-3.7 N BASOPHIL % (test code = BA%) 0.5 % 0.0-2.0 N NUCLEATED RBC % (test code = 0.0 % 0-0 N NRBC%) NEUTROPHIL # (test code = NT#) 7.76 x10 3/uL 2.0-7.6 H IMMATURE GRANULOCYTE # (test 0.06 x10 3/uL 0.00-0.03 H code = IG#) LYMPHOCYTE # (test code = LY#) 3.17 x10 3/uL 1.0-3.8 N MONOCYTE # (test code = MO#) 1.20 x10 3/uL 0.1-0.8 H EOSINOPHIL # (test code = EO#) 0.10 x10 3/uL 0.0-0.2 N BASOPHIL # (test code = BA#) 0.06 x10 3/uL 0.0-0.2 N NUCLEATED RBC # (test code = 0.00 x10 3/uL 0.0-0.1 N NRBC#) MANUAL DIFF REQUIRED (test code NO = MDIFF) RAPID PLASMA [id number] 11:50:00 Test Item Value Reference Range Interpretation Comments RAPID PLASMA REAGIN (test code = NONREACTIVE NONREACTIVE RPR) AG HEPATITIS B [id number] 11:50:00 Test Item Value Reference Range Interpretation Comments AG HEPATITIS B SURFACE NON REACTIVE INDEX NonReactive (test code = HBSAG) AB HIV 1 11:50:00 Test Item Value Reference Range Interpretation Comments AB HIV 1 2 (test code = [id number]) Nonreactive Nonreactive CBC W/AUTO [id number] 19:59:00 Test Item Value Reference Range Interpretation Comments WHITE BLOOD CELL (test code = 10.1 x10 3/uL 4.5-11.0 N WBC) RED BLOOD CELL (test code = 3.32 x10 6/uL 3.54-5.02 L RBC) HEMOGLOBIN (test code = HGB) 8.6 g/dL 11.0-15.0 L HEMATOCRIT (test code = HCT) 27.4 % 33.0-45.0 L MEAN CELL VOLUME (test code = 82.5 fL 81.0-99.0 N MCV) MEAN CELL HGB (test code = MCH) 25.9 pg 27.0-33.0 L MEAN CELL HGB CONCETRATION 31.4 g/dL 33.0-37.0 L (test code = MCHC) RED CELL DISTRIBUTION WIDTH CV 16.1 % 11.5-14.5 H (test code = RDW) RED CELL DISTRIBUTION WIDTH SD 48.4 fL 37.0-54.0 N (test code = RDW-SD) PLATELET COUNT (test code = 289 x10 3/uL 150-400 N PLT) MEAN PLATELET VOLUME (test code 11.1 fL 7.0-9.0 H = MPV) NEUTROPHIL % (test code = NT%) 62.4 % 56.0-77.0 N IMMATURE GRANULOCYTE % (test 0.8 % 0.0-2.0 N code = IG%) LYMPHOCYTE % (test code = LY%) 26.3 % 14.0-32.0 N MONOCYTE % (test code = MO%) 9.6 % 4.8-9.0 H EOSINOPHIL % (test code = EO%) 0.6 % 0.3-3.7 N BASOPHIL % (test code = BA%) 0.3 % 0.0-2.0 N NUCLEATED RBC % (test code = 0.0 % 0-0 N NRBC%) NEUTROPHIL # (test code = NT#) 6.27 x10 3/uL 2.0-7.6 N IMMATURE GRANULOCYTE # (test 0.08 x10 3/uL 0.00-0.03 H code = IG#) LYMPHOCYTE # (test code = LY#) 2.65 x10 3/uL 1.0-3.8 N MONOCYTE # (test code = MO#) 0.97 x10 3/uL 0.1-0.8 H EOSINOPHIL # (test code = EO#) 0.06 x10 3/uL 0.0-0.2 N BASOPHIL # (test code = BA#) 0.03 x10 3/uL 0.0-0.2 N NUCLEATED RBC # (test code = 0.00 x10 3/uL 0.0-0.1 N NRBC#) MANUAL DIFF REQUIRED (test code NO = MDIFF) AMNISURE (ROM) [id number] 18:12:00 Test Item Value Reference Range Interpretation Comments AMNISURE (ROM) TEST (test code = POSITIVE NEGATIVE A AMNI) AMNISURE (ROM) [id number] 21:41:00 Test Item Value Reference Range Interpretation Comments AMNISURE (ROM) TEST (test code = NEGATIVE NEGATIVE AMNI) [id number] 20:11:00 Test Item Value Reference Range Interpretation Comments FIBRONECTIN (test code = FFN) POSITIVE NEGATIVE A UA RFLX MICR CULT IF [id number] 20:11:00 Test Item Value Reference Range Interpretation Comments UA COLOR (test code = COLU) YELLOW YEL/STRAW UA APPEARANCE (test code = SL CLOUDY CLEAR APPU) UA GLUCOSE DIPSTICK (test code NEGATIVE NEGATIVE = DGLUU) UA BILIRUBIN DIPSTICK (test 1+ NEGATIVE A code = BILU) UA KETONE DIPSTICK (test code = TRACE NEGATIVE A KETU) UA SPECIFIC GRAVITY (test code 1.033 1.005-1.030 H = SGU) UA BLOOD DIPSTICK (test code = NEGATIVE NEGATIVE KURTIS) UA PH DIPSTICK (test code = 5.0 5.0-7.0 N SHAINA) UA PROTEIN DIPSTICK (test code 2+ NEGATIVE A = PROU) UA UROBILINIOGEN DIPSTICK (test 2.0 mg/dL 0.2-1.0 A code = URO) UA NITRITE DIPSTICK (test code NEGATIVE NEGATIVE = BHUPENDRA) UA LEUKOCYTE ESTERASE DIPSTICK TRACE NEGATIVE A (test code = LEUU) UA WBC (test code = WBCU) 10-20 WBC/HPF 0-3 A UA RBC (test code = RBCU) 0-3 RBC/HPF 0-3 UA WBC NO REFLEX (test code = 10-20 WBC/HPF 0-3 A WBCUCL) UA BACTERIA (test code = BACU) TRACE /HPF NONE SEEN UA SQUAMOUS CELLS (test code = 11-25 /HPF NONE SEEN A SQU) UA MUCUS (test code = MUCU) 4+ /LPF NONE SEEN A Indication for culture: Suprapubic PainSpecimen Description: CLEAN CATCHDRUGS OF ABUSE SCREEN [id number] 20:10:00 Test Item Value Reference Range Interpretation Comments [...] us ed for non-medical pur poses. - BIOPHYS [id number] 00:00:00 [facility] MADELINE CHIGNIK LAGOONName: BI EDMONDS : 2000 Sex: F Name: BI EDMONDS [facility] [place] : 2000 Age/S: 21 / F [address] [place] [address] Blvd Unit #: [id number] Loc: [place] [address] Phys: Zoila Gomez DO Acct: [id number] Dis Date: Status: REG ER PHONE#: [phone] Exam Date: 09/26/20222004 FAX #: [phone] Reason: decreased FM EXAMS: CPT CODE: [id number] US BIOPHYS PROF [id number] PROCEDURE INFORMATION: Exam: US Biophysical Profile Without Non-Stress Test Exam date and time: 09/26/2022 7:49 PM Age: 21 years old Clinical indication: Pain indication: Abdominal pain; ; Additional info: Decreased fm TECHNIQUE: Imaging protocol: US biophysical profile without non-stress testing. COMPARISON: US FET BIO PH DC W/O NST 09/07/2022 11:03 PM A limited transabdominal obstetrical ultrasound was performed for biophysical profile determination. The ultrasound reveals the presence of a single intrauterine in cephalic position. The placenta is anteriorly positioned and demonstrates grade 2 echotexture. There is no evidence of placenta previa. Amniotic fluid volume appears within normal limits with a measured ISMA of 11.4 cm. The cervix was not well visualized. The fetus meets the biophysical profile criteria for breathing movement, gross body movement, tone and amniotic fluid volume giving a biophysical profile score of 8/8. The umbilical artery S/D ratio was 2.8. IMPRESSION: 1. Single living intrauterine in cephalic position. 2. biophysical profile score of 8/8. SL: 131. at 2114 Reported and signed by: Malcolm Wilson M.D. CC: Zoila Gomez DO Technologist: Josefina Fitch Trnmdb Date/Time: 09/26/2022 (2113) Karoline Orig Print D/T: S: 09/26/2022 (2113) Probe: PAGE 1 Signed Report- US PREG AFTER [id number] 00:00:00 [facility] : 2000 Sex: F Name: BI EDMONDS [facility] : 2000 Age/S: 21 / F [address] [place] [address] Unit #: [id number] Loc: [place] [address] Phys: Zoila Gomez DO Acct: [id number] Dis Date: Status: REG ER PHONE#: [phone] Exam Date: 09/26/20222004 FAX #: [phone] Reason: PTL EXAMS: CPT CODE: [id number] US PREG AFTER TRI 58968 PROCEDURE INFORMATION: Exam: US After First Trimester, Transabdominal Exam date and time: 09/26/2022 7:49 PM Age: 21 years old Clinical indication: complicated by abdominal or pelvic pain; Periumbilical; Third trimester (=28 weeks 0 days); Gestational age or lmp: 32w; ; Additional info: Ptl TECHNIQUE: Imaging protocol: Real-time transabdominal obstetrical ultrasound of the maternal pelvis and a second or third trimester with image documentation. COMPARISON: US LTD 09/13/2022 8:38 AM FINDINGS: EGA by LMP: 32 weeks 1 day EGA by current US: 31 weeks 3 days DANY by LMP: 11/20/2022 DANY by ultrasound: 11/25/2022. Gestation: Jauregui Presentation: Cephalic heart rate: 148 bpm Amniotic fluid index: 11.39 cm; largest pocketmeasures 4.37 cm. Placenta: Anterior, grade 2. No evidence of placenta previa. Cervical length: cm S/D ratio: 2.8 measurements: BPD: 8.23 cm, 33 weeks 1 day HC: 28.33 cm, 31 weeks 1 day AC: 25.23 cm, 29 weeks 3 days FL: 6.19 cm, . Thirty-one weeks 1 day Ratios: FL/BPD: 75.22 (71.0--87.0) FL/AC: 24.53 (20.00-24.00). HC/AC: 1.12. (0.96--1.16) FL/HC: 21.85 (19.21-21.30) Estimated weight: 1628 g +/-244.15 g (3 lb 9 oz +/-9 oz) anatomy: Unremarkable as visualized. biophysical profile: tone: 2 PAGE 1 Signed Report (CONTINUED) Name: BI EDMONDS [facility] : 2000 Age/S: 21 / F [address] [place] [address] Unit #: [id number] Loc: [place] [address] Phys: Zoila Gomez DO Acct: [id number] Dis Date: Status: REG ER PHONE #: [phone] Exam Date: 09/26/20222004 FAX #: [phone] Reason: PTL EXAMS: CPT CODE: [id number] US PREG AFTER 1ST TRI 70135 (Continued) movement: 2. breathin Amniotic fluid: 2 Total score 8/8 IMPRESSION: 1. Single viable intrauterine gestation in cephalic presentation. 2. Normal growth concordant with dates. 3. Normal biophysical profile. at 2117 Reported and signed by: Jeromy Wolfe M.D. CC: Zoila Gomez DO Technologist: Josefina Fitch Trnmdb Date/Time: 09/26/2022 (2116) [email or web address] Orig Print D/T: S: 09/26/2022 (3420) Probe: PAGE 2 Signed ReportAMNISURE (ROM) [id number] 14:39:00 Test Item Value Reference Range Interpretation Comments AMNISURE (ROM) TEST (test code = NEGATIVE NEGATIVE AMNI) CHLAMYDIA GC DNA BY [id number] 13:07:00 Test Item Value Reference Range Interpretation Comments C. TRACHOMATIS DNA BY Negative Negative PCR (test code = CHLAMTDNA) N. GONORRHOEAE DNA BY Negative Negative Perfor med At: HD PCR (test code = [facility] [id number] NGONORDNA) [place], [place] [id number] Marc Rosales MD Ph:[phone] UA RFLX MICR CULT IF [id number] 21:16:00 Test Item Value Reference Range Interpretation Comments UA COLOR (test code = COLU) YELLOW YEL/STRAW UA APPEARANCE (test code = SL CLOUDY CLEAR APPU) UA GLUCOSE DIPSTICK (test code NEGATIVE NEGATIVE = DGLUU) UA BILIRUBIN DIPSTICK (test NEGATIVE NEGATIVE code = BILU) UA KETONE DIPSTICK (test code = NEGATIVE NEGATIVE KETU) UA SPECIFIC GRAVITY (test code 1.019 1.005-1.030 N = SGU) UA BLOOD DIPSTICK (test code = NEGATIVE NEGATIVE KURTIS) UA PH DIPSTICK (test code = 6.0 5.0-7.0 N SHAINA) UA PROTEIN DIPSTICK (test code NEGATIVE NEGATIVE = PROU) UA UROBILINIOGEN DIPSTICK (test 2.0 mg/dL 0.2-1.0 A code = URO) UA NITRITE DIPSTICK (test code NEGATIVE NEGATIVE = BHUPENDRA) UA LEUKOCYTE ESTERASE DIPSTICK TRACE NEGATIVE A (test code = LEUU) UA WBC (test code = WBCU) 10-20 WBC/HPF 0-3 A UA RBC (test code = RBCU) 0-3 RBC/HPF 0-3 UA WBC NO REFLEX (test code = 10-20 WBC/HPF 0-3 A WBCUCL) UA BACTERIA (test code = BACU) TRACE /HPF NONE SEEN UA SQUAMOUS CELLS (test code = 11-25 /HPF NONE SEEN A SQU) UA MUCUS (test code = MUCU) TRACE /LPF NONE SEEN Indication for culture: Suprapubic PainSpecimen Description: CLEAN CATCHRAPID PLASMA [id number] 11:04:00 Test Item Value Reference Range Interpretation Comments RAPID PLASMA REAGIN (test code = NONREACTIVE NONREACTIVE RPR) AG HEPATITIS B [id number] 11:04:00 Test Item Value Reference Range Interpretation Comments AG HEPATITIS B SURFACE NON REACTIVE INDEX NonReactive (test code = HBSAG) AB HIV 1 11:04:00 Test Item Value Reference Range Interpretation Comments AB HIV 1 2 (test code = [id number]) Nonreactive Nonreactive [id number] 08:05:00 Test Item Value Reference Range Interpretation Comments MAGNESIUM (test code = MAG) 4.22 mg/dL 1.80-2.40 HH CBC W/AUTO [id number] 00:08:00 Test Item Value Reference Range Interpretation Comments WHITE BLOOD CELL (test code = 10.4 x10 3/uL 4.5-11.0 N WBC) RED BLOOD CELL (test code = 3.37 x10 6/uL 3.54-5.02 L RBC) HEMOGLOBIN (test code = HGB) 9.1 g/dL 11.0-15.0 L HEMATOCRIT (test code = HCT) 28.5 % 33.0-45.0 L MEAN CELL VOLUME (test code = 84.6 fL 81.0-99.0 N MCV) MEAN CELL HGB (test code = MCH) 27.0 pg 27.0-33.0 N MEAN CELL HGB CONCETRATION 31.9 g/dL 33.0-37.0 L (test code = MCHC) RED CELL DISTRIBUTION WIDTH CV 13.9 % 11.5-14.5 N (test code = RDW) RED CELL DISTRIBUTION WIDTH SD 43.2 fL 37.0-54.0 N (test code = RDW-SD) PLATELET COUNT (test code = 300 x10 3/uL 150-400 N PLT) MEAN PLATELET VOLUME (test code 10.7 fL 7.0-9.0 H = MPV) NEUTROPHIL % (test code = NT%) 59.2 % 56.0-77.0 N IMMATURE GRANULOCYTE % (test 0.6 % 0.0-2.0 N code = IG%) LYMPHOCYTE % (test code = LY%) 31.0 % 14.0-32.0 N MONOCYTE % (test code = MO%) 8.1 % 4.8-9.0 N EOSINOPHIL % (test code = EO%) 0.8 % 0.3-3.7 N BASOPHIL % (test code = BA%) 0.3 % 0.0-2.0 N NUCLEATED RBC % (test code = 0.0 % 0-0 N NRBC%) NEUTROPHIL # (test code = NT#) 6.16 x10 3/uL 2.0-7.6 N IMMATURE GRANULOCYTE # (test 0.06 x10 3/uL 0.00-0.03 H code = IG#) LYMPHOCYTE # (test code = LY#) 3.22 x10 3/uL 1.0-3.8 N MONOCYTE # (test code = MO#) 0.84 x10 3/uL 0.1-0.8 H EOSINOPHIL # (test code = EO#) 0.08 x10 3/uL 0.0-0.2 N BASOPHIL # (test code = BA#) 0.03 x10 3/uL 0.0-0.2 N NUCLEATED RBC # (test code = 0.00 x10 3/uL 0.0-0.1 N NRBC#) MANUAL DIFF REQUIRED (test code NO = MDIFF) - [facility] BIO PH DC W/O [id number] 00:00:00 [facility] MADELINE COFFMANName: LUIS EDMONDS : 2000 Sex: F Name: LUIS EDMONDS [facility] Madeline Coffman : 2000 Age/S: 21 / F [address] [place], [place] [address] Unit #: [id number] Loc: [facility] [place] [id number] Phys: Juany Carrillo MD Acct: [id number] Dis Date: Status: ADM IN PHONE #: [phone] Exam Date: 09/07/20222315 FAX #: [phone] Reason: IUP@29 wks; Leaking fluid; ROM plus positive EXAMS: CPT CODE: [id number] US FET BIO PH DC W/O NST 17502 PROCEDURE INFORMATION: Exam: US , Limited Exam date and time: 09/07/2022 11:03 PM Age: 21 years old Clinical indication: Other: Rom; Lmp or gestational age (in weeks): 29; Antepartum complications; Premature ruptureof membranes; ; Additional info: Iup@29 wks; Leaking fluid; Rom plus positive TECHNIQUE: Imaging protocol: Real-time ultrasound of the maternal uterus with image documentation. Exam focused on the clinical indication. COMPARISON: US BIOPHYS PROF 03/12/2021 11:26 PM A limited transabdominal obstetrical ultrasound was performed for biophysical profile determination. The ultrasound reveals the presence of a single intrauterine in cephalic position. cardiac activity is detected with a heart rate of 152 bpm. The placenta is anteriorly positioned and demonstrates grade 1 echotexture. There is no evidence of placenta previa or retroplacental hemorrhage. Amniotic fluid volume appears within normal limits with a measured ISMA of 11 cm. The cervix was not well visualized. The fetus meets the biophysical profile criteria for breathing movement, gross body movement, tone and amniotic fluid volume giving a biophysical profile score of 8/8. The average umbilical artery S/D ratio was 3.4. IMPRESSION: 1. Single living intrauterine in cephalic position. 2. biophysical profile score of 8/8. SL: 131. PROCEDURE INFORMATION: Exam: US Biophysical Profile Without Non-Stress Test Exam date and time: 09/07/2022 11:03 PM Age: 21 years old Clinical indication: Other: Rom; Lmp or gestational age (in weeks): 29; Antepartum complications; Premature rupture of membranes; ; Additional info: Iup@29 wks; Leaking fluid; Rom plus positive TECHNIQUE: Imaging protocol: US biophysical profile without non-stress testing. COMPARISON: US BIOPHYS PROF 03/12/2021 11:26 PM PAGE 1 Signed Report (CONTINUED) Name: LUIS EDMONDS [facility] [place] : 2000 Age/S: 21 / F [address] [place] [address] Unit #: [id number] Loc: [place] [address] Phys: Juany Carrillo MD Acct: [id number] Dis Date: Status: ADM IN PHONE #: [phone] Exam Date: 09/07/2022 2316 FAX #: [phone] Reason: IUP@29 wks; Leaking fluid; ROM plus positive EXAMS: CPT CODE: [id number] US FET BIO PH DC W/O NST 90295 (Continued) A limited transabdominal obstetrical ultrasound was performed for biophysical profile determination. The ultrasound reveals the presence of a single intrauterine in cephalic position. cardiac activity is detected with a heart rate of 152 bpm. The placenta is anteriorly positioned and demonstrates grade 1 echotexture. There is no evidence of placenta previa or retroplacental hemorrhage. Amniotic fluid volume appears within normal limits with a measured ISMA of 11 cm. The cervix was not well visualized. The fetus meets the biophysical profile criteria for breathing movement, gross body movement, tone and amniotic fluid volume giving a biophysical profile score of 8/8. The average umbilical artery S/D ratio was 3.4. IMPRESSION: 1. Single living intrauterine in cephalic position. 2. biophysical profile score of 8/8. SL: 131. at 0002 Reported and signed by: Malcolm Wilson M.D. CC: Juany Carrillo MD Technologist: Victoria Tripathi RDMS(AB)(OB) Trnscb Date/Time: 09/08/2022 (1) Karoline Orig Print D/T: S: 09/08/2022 (0002) Probe: PAGE 2 Signed Report- US [id number] 00:00:00 [facility] 2000 Sex: F Name: LUIS EDMONDS [facility] [place] : 2000 Age/S: 21 / F [address] [place] [address] Blvd Unit #: [id number] Loc: [place] [address] Phys: Juany Carrillo MD Acct: [id number] Dis Date: Status: ADM IN PHONE #: [phone] Exam Date: 09/07/20222314 FAX #: [phone] Reason: see US FET BIO PH DC W/ONST EXAMS: CPT CODE: [id number] LTD 25708 PROCEDURE INFORMATION: Exam: US , Limited Exam date and time: 09/07/2022 11:03 PM Age: 21 years old Clinical indication: Other: Rom; Lmp or gestational age (in weeks): 29; Antepartum complications; Premature rupture of membranes; ;Additional info: Iup@29 wks; Leaking fluid; Rom plus positive TECHNIQUE: Imaging protocol: Real-timeultrasound of the maternal uterus with image documentation. Exam focused on the clinical indication. COMPARISON: US BIOPHYS PROF 03/12/2021 11:26 PM A limited transabdominal obstetrical ultrasound was performed for biophysical profile determination. The ultrasound reveals the presen ce of a single intrauterine in cephalic position. cardiac activity is detected with a heart rate of 152 bpm. The placenta is anteriorly positioned and demonstrates grade 1 echotexture. There is no evidence of placenta previa or retroplacental hemorrhage. Amniotic fluid volume appears wi thin normal limits with a measured ISMA of 11 cm. The cervix was not well visualized. The fetus meetsthe biophysical profile criteria for breathing movement, gross body movement, tone and amniotic fluid volume giving a biophysical profile score of 8/8. The average umbilical artery S/D ratio was 3.4. IMPRESSION: 1. Single living intrauterine in cephalic position. 2. biophysical profile score of 8/8. SL: 131. PROCEDURE INFORMATION: Exam: US Biophysical Profile Without Non-Stress Test Exam date and time: 09/07/2022 11:03 PM Age: 21 years old Clinical indication: Other: Rom; Lmp or gestational age (in weeks): 29; Antepartum complications; Premature rupture of membranes; ; Additional info: Iup@29 wks; Leaking fluid; Rom plus positive TECHNIQUE: Imaging protocol: US biophysical profile without non-stress testing. COMPARISON: US BIOPHYS PROF 03/12/2021 11:26 PM PAGE 1 Signed Report (CONTINUED) Name: LUIS EDMONDS [facility] Madeline Coffman : 2000 Age/S: 21 / F [address] [place] [address] Unit #: [id number] Loc: [place] [address] Phys: Juany Carrillo MD Acct: [id number] Dis Date: Status: ADM IN PHONE #: [phone] Exam Date: 09/07/20225 FAX #: [phone] Reason: see US FET BIO PH DC W/O NST EXAMS: CPT CODE: [id number] US LTD 04516 (Continued) A limited transabdominal obstetrical ultrasound was performed for biophysical profile determination. The ultrasound reveals the presence of a single intrauterine in cephalic position. cardiac activity is detected with a heart rate of 152 bpm. The placenta is anteriorly positioned and demonstrates grade 1 echotexture. There is no evidence of placenta previa or retroplacental hemorrhage. Amniotic fluid volume appears within normal limits with a measured ISMA of 11 cm. The cervix was not well visualized. The fetus meets the biophysical profile criteria for breathing movement, gross body movement, tone and amniotic fluid volume giving abiophysical profile score of 8/8. The average umbilical artery S/D ratio was 3.4. IMPRESSION: 1. Single living intrauterine in cephalic position. 2. biophysical profile score of 8/8. SL: 131. at 0002 Reportedand signed by: Malcolm Wilson M.D. CC: Juany Carrillo MD Technologist: Victoria Tripathi RDMS(AB)(OB) Trnscb Date/Time: 09/08/2022 (0002) Karoline Orig Print D/T: S: 09/08/2022 (0002) Probe: PAGE 2Signed ReportAMNISURE (ROM) TEST 2022-09-07 22:26:00 Test Item Value Reference Range Interpretation Comments AMNISURE (ROM) TEST (test code = POSITIVE NEGATIVE A AMNI) UA RFLX MICR CULT IF [id number] 22:12:00 Test Item Value Reference Range Interpretation Comments UA COLOR (test code = COLU) STRAW YEL/STRAW UA APPEARANCE (test code = APPU) [...] NEGATIVE NEGATIVE (test code = LEUU) UA WBC (test code = WBCU) 0-3 WBC/HPF 0-3 UA RBC (test code = RBCU) 0-3 RBC/HPF 0-3 UA WBC NO REFLEX (test code = 0-3 WBC/HPF 0-3 WBCUCL) UA BACTERIA (test code = BACU) TRACE /HPF NONE SEEN UA SQUAMOUS CELLS (test code = 6-10 /HPF NONE SEEN A SQU) UA MUCUS (test code = MUCU) TRACE /LPF NONE SEEN Indication for culture: Suprapubic PainSpecimen Description: CLEAN CATCHFETAL [id number] 16:47:00 Test Item Value Reference Range Interpretation Comments FIBRONECTIN (test code = FFN) NEGATIVE NEGATIVE URINALYSIS [id number] 16:34:00 Test Item Value Reference Range Interpretation Comments UA COLOR (test code = COLU) YELLOW YEL/STRAW UA APPEARANCE (test code = CLEAR CLEAR APPU) UA GLUCOSE DIPSTICK (test code NEGATIVE NEGATIVE = DGLUU) UA BILIRUBIN DIPSTICK (test NEGATIVE NEGATIVE code = BILU) UA KETONE DIPSTICK (test code NEGATIVE NEGATIVE = KETU) UA SPECIFIC GRAVITY (test code 1.017 1.005-1.030 N = SGU) UA BLOOD DIPSTICK [...] = MUCU) TRACE /LPF NONE SEEN - XR ANKLE 3 + V [id number] 00:00:00 [facility] 2000 Sex: F FAX: Emily Mckoy MD [phone] [place]: ID St: PRE FAX: Romeo Chavez Name: LUIS EDMONDS FSED : 2000 Age/S: 21/F [address] [facility] Unit #: [id number] Loc: [place] [address] Phys: Ghanshyam Chavez MD Acct: [id number] Dis Date: Status: PRE ER PHONE #: Exam Date: 03/06/2022 1600 FAX #: Reason: R ANKLE PAIN AFTER FALL EXAMS: CPT CODE: [id number] XR ANKLE 3 + V RT 66781 PROCEDURE INFORMATION: Exam: XR Right Ankle Exam [...] FINDINGS: Bones/joints: There is normal alignment without fracturesor dislocations. The tibiotalar joint and talar dome are unremarkable. The subtalar joint is unremarkable. The mortise is normal. The distal tibia-fibular alignment is unremarkable. There is no ankle natanael int effusion. Soft tissues: There is no soft tissue swelling. There are no radiopaque foreign bodies. Notes: If there is further concern, recommend follow- up radiographs or MRI for complete assessment. IMPRESSION: No fracture or dislocation at 1607 Reported and signed by: Emeka Pickering M.D. CC: Emily Artis MD; Ghanshyam Wesley Technologist: Katerina Rosas RT(R)(CT) Trnscrd Date/Time/By: 03/06/2022 (9813) : By: KaneSBL OrigPrint D/T: S: 03/06/2022 (6828) PAGE 1 Signed Report- XR FOOT 3 + V [id number] 00:00:00 [facility] : 2000 Sex: F FAX: Emily Mckoy MD [phone] [place]: ID St: PRE FAX: Romeo Chavez Name: LUIS EDMONDS FSED : 2000 Age/S: 21/F [address] [facility] Unit #: [id number] Loc: [place] [address] Phys: Ghanshyam Chavez MD Acct: [id number] Dis Date: Status: PRE ER PHONE #: Exam Date: 03/06/2022 4439 FAX #: Reason: r foot injury EXAMS: CPT CODE: [id number] XR FOOT 3 + V RT 89895 PROCEDURE INFORMATION: Exam: XR Right Foot Exam [...] no radiopaque foreign bodies. There is no softtissue gas or osseous erosive changes noted. Notes: If there is further concern, recommend follow-up radiographs or MRI for complete assessment. IMPRESSION: No fractures or dislocation at 1604 Reported and signed by: Emeka Pickering M.D. CC: Emily Artis MD; Ghanshyam Chavez MD Technologist: Katerina Rosas RT(R)(CT) Trnscrd Date/Time/By: 03/06/2022 (0671) : By: KaneSBL Orig Print D/T: S: 03/06/2022 (9633) PAGE 1 Signed ReportURINE HCG TRIAGE (ER ONLY)2021-11-11 08:40:00 Test Item Value Reference Range Interpretation Comments URINE HCG TRIAGE (ER ONLY) (test NEGATIVE Negative code = HCGTRIAGE) Urine Test Result: NEGATIVEAre internal controls (presence of a control line & clear background) OK? YLot # of HCG Test Kit: [id number] Date of Kit: 02/15/23Test Performed by: Carlo Perfomed on: 11/11/21COMMENTS: NEGATIVEUA DIPSTICK [id number] 00:46:00 Test Item Value Reference Range Interpretation Comments UA GLUCOSE DIPSTIC POC NEGATIVE NEGATIVE (test code = GLUUP) UA BILIRUBIN DIPSTICK NEGATIVE NEGATIVE (test code = BILU) UA KETONE DIPSTICK POC NEGATIVE NEGATIVE (test code = KETUP) UA SPECIFIC GRAVITY (test 1.010 1.005-1.030 N code = SGU) UA BLOOD DIPSTIC POC NEGATIVE NEGATIVE Perform ed by (test code = BLUP) certified log handling equipment operator at [facility] ed Ctr UA PH DIPSTIC POC (test 7 5.0-7.0 N code = PHUP) UA PROTEIN DIPSTICK POC NEGATIVE NEGATIVE (test code = DPROUP) UA UROBILINIOGEN QUAL NORMAL 0.2-1.0 (test code = UROQL) UA NITRITE DIPSTICK POC NEGATIVE Negative (test code = NITUP) UA LEUKOCYTE ESTERASE W Negative NEGATIVE REFLEX (test code = LEUUR) SURGICAL PATH [id number] 13:13:00 Test Item Value Reference Range Interpretation Comments SURGICAL PATH SPECIMENS (test code = S) RUN DATE: 03/28/21 [place] - LAB PAGE 1 RUN TIME: 1313 Specimen Inquiry RUN USER: INTERFACE ARTEMIO ENT: SUELUIS LOC: MAIKEL U #: [id number] AGE/SX: 20/F ROOM: [facility] RE03/25/21REG DR: Luis Burciaga MD : [birth year] BED: 1 DIS: STATUS: ADM IN TLOC: SPEC #: [id number] RECD: 03/27/21-1018 STATUS: SOUKyra REQ #: [id number] SLOAN: 03/26/21- SUBM DR: Luis Burciaga MD ENTERED: 03/27/21-1019 SP TYPE: SURG SPEC OTHR DR: ORDERED: GM LEVEL 5 CODES: [id number] - PLACENTA, NOS PROCEDURES: GM LEVEL 5 [...] 03/28/21 1313 END OF REPORT CBC W/AUTO [id number] 07:03:00 Test Item Value Reference Range Interpretation [...] code NO = MDIFF) CORD VENOUS BLOOD [id number] 18:41:00 Test Item Value Reference Range Interpretation [...] = 17 % O2SCV) CORD ARTERIAL BLOOD [id number] 18:40:00 Test Item Value Reference Range Interpretation [...] O2S/C) 25 % 72-77 L RAPID PLASMA [id number] 10:40:00 Test Item Value Reference Range Interpretation Comments RAPID PLASMA REAGIN (test code = NONREACTIVE NONREACTIVE RPR) AG HEPATITIS B [id number] 10:40:00 Test Item Value Reference Range Interpretation Comments AG HEPATITIS B SURFACE NON REACTIVE INDEX NonReactive (test code = HBSAG) AB HIV 1 10:40:00 Test Item Value Reference Range Interpretation Comments AB HIV 1 2 (test code = NRQ11GN) Nonreactive Nonreactive COVID 19 Asymptomatic IH [id number] 20:20:00 Test Item Value Reference Range Interpretation Comments COVID 19 Asymptomatic Negative Negative A nega tive result is IH AG (test code = presumpti ve and should COVNONPUIAG) be confirmedwit h an FDA authorized mole cular assay, if marek bennett forpatient lisa montoya.A positive result does not rule out co-inf [...] moderate, high or waivedcomplexit y tests. URINALYSIS [id number] 18:48:00 Test Item Value Reference Range Interpretation [...] MUCU) TRACE /LPF NONE SEEN RAPID PLASMA [id number] 18:11:00 Test Item Value Reference Range Interpretation Comments RAPID PLASMA REAGIN (test code = RPR) NONREACTIVE AG HEPATITIS B [id number] 18:11:00 Test Item Value Reference Range Interpretation Comments AG HEPATITIS B SURFACE NON REACTIVE INDEX NonReactive (test code = HBSAG) AB HIV 1 18:11:00 Test Item Value Reference Range Interpretation Comments AB HIV 1 2 (test code = TGR87UI) Nonreactive Nonreactive COMPREHENSIVE METABOLIC [id number] 17:45:00 Test Item Value Reference Range Interpretation [...] N TOTAL (test code = ALKP) URIC [id number] 17:45:00 Test Item Value Reference Range Interpretation Comments URIC ACID (test code = URIC) 4.0 mg/dL 2.6-7.2 N LACTIC DEHYDROGENASE(LDH)2021-03-25 17:45:00 Test Item Value Reference Range Interpretation Comments LACTIC DEHYDROGENASE(LDH) (test 225 IUnits/L 84-246 N code = LDH) CBC W/AUTO [id number] 17:24:00 Test Item Value Reference Range Interpretation [...] REQUIRED (test code = MDIFF) CBC W/AUTO [id number] 17:24:00 Test Item Value Reference Range Interpretation [...] (test code NO = MDIFF) - BIOPHYS [id number] 00:00:00 [facility] 2000 Sex: F Name: LUIS EDMONDS [facility] [place] : 2000 Age/S: 20 / F [address] [place] [address] Unit #: [id number] Loc: [place] [address] Phys: Effie Solitario MD Acct: [id number] Dis Date: Status: REG ER PHONE #: [phone] Exam Date: 03/12/202141 FAX #: [phone] Reason: Possible SROM, please evaluate ISMA EXAMS: CPT CODE: [id number] US BIOPHYS PROF 31853 PROCEDURE INFORMATION: Exam:US Biophysical Profile With Non-Stress Test Exam date [...] S: 03/13/2021 (56) Probe: PAGE 1 Signed Report AMNISURE (ROM) [id number] 22:05:00 Test Item Value Reference Range Interpretation Comments AMNISURE (ROM) TEST (test code = NEGATIVE NEGATIVE AMNI) URINALYSIS [id number] 21:48:00 Test Item Value Reference Range Interpretation [...] = MUCU) TRACE /LPF NONE SEEN URINALYSIS [id number] 07:00:00 Test Item Value Reference Range Interpretation [...] TRACE /LPF NONE SEEN - US BIOPHYS [id number] 00:00:00 [facility] : 2000 Sex: F Name: LUIS EDMONDS [facility] : 2000 Age/S: 20 / F [address] [place] [address] Bl Unit #: [id number] Loc: [place] [address] Phys: Effie Solitario MD Acct: [id number] Dis Date: Status: REG ER PHONE #: [phone] Exam Date: 03/01/2021 0758 FAX #: [phone] Reason: decreased movements EXAMS: CPT CODE: [id number] US BIOPHYS PROF 40834 PROCEDURE INFORMATION: Exam: US FetalBiophysical Profile With [...] Nilton Frederick M.D. CC: Technologist: Vilma Robles RDMS(AB) Trnscb Date/Time: 03/01/2021 (0810) [email or web address] Orig Print D/T: S: 03/01/2021 (0811) Probe: PAGE 1 Signed Report AMNISURE (ROM) [id number] 16:16:00 Test Item Value Reference Range Interpretation Comments AMNISURE (ROM) TEST (test code = NEGATIVE NEGATIVE AMNI) [id number] 16:16:00 Test Item Value Reference Range Interpretation Comments FIBRONECTIN (test code = FFN) NEGATIVE NEGATIVE [id number] 20:50:00 Test Item Value Reference Range Interpretation Comments FIBRONECTIN (test code = FFN) NEGATIVE NEGATIVE URINALYSIS [id number] 20:32:00 Test Item Value Reference Range Interpretation [...] TRACE /LPF NONE SEEN - US BIOPHYS [id number] 00:00:00 [facility] : 2000 Sex: F Name: LUIS EDMONDS [facility] : 2000 Age/S: 20 / F [address] [place] [address] Unit #: [id number] Loc: [place] [address] Phys: Effie Solitario MD Acct: [id number] Dis Date: Status: REG ER PHONE #: [phone] Exam Date: 02/12/20212122 FAX #: [phone] Reason: Decreased movements EXAMS: CPT CODE: [id number] US BIOPHYS PROF 50819 PROCEDURE INFORMATION: Exam: US Biophysical Profile With [...] cm. PAGE 1 Signed Report (CONTINUED) Name: LUIS EDMONDS [facility] : 2000 Age/S: 20 / F [address] [place] [address] Blvd Unit #: [id number]: [place] [address] Phys: Effie Solitario MD Acct: [id number] Dis Date: Status: REG ER PHONE #: [phone] Exam Date: 02/12/20212122 FAX #: [phone] Reason: Decreased movementsEXAMS: CPT CODE: [id number] US BIOPHYS PROF 44034 <Continued> at 2121 Reported and signed by: Geovanny Hughes D.O. CC: Technologist: Yuki Ray RDMS()(OB) Trnscb Date/Time: 02/12/2021 (2121) [email or web address] Orig Print D/T: S: 02/12/2021 (2148) Probe: PAGE 2 Signed ReportURINALYSIS [id number] 03:25:00 Test Item Value Reference Range Interpretation [...] MUCU) TRACE /LPF NONE SEEN - US [id number] 17:34:00 [facility] : 2000 Sex: F Name: LUIS EDMONDS [facility] [place] : 2000 Age/S: 20 / F [address] [place] [address] Blvd Unit #: [id number] Loc: [place] [address] Phys: Pearl Chavez DO Acct: [id number] Dis Date: Status: REG ER PHONE #: [phone] Exam Date: 12/25/2020 1726 FAX #: [phone] Reason: h/o low ISMA, unsure if PROM, translabial cervic EXAMS: CPT CODE: [id number] US LTD 14973 LIMITED ULTRASOUND INDICATION: with history of low [...] estimated sonographic gestational age of 24 weeks 6days. SL: SG-H PAGE 1 Signed Report (CONTINUED) Name: LUIS EDMONDS [facility] [place] : 2000 Age/S: 20 / F [address] [place] [address] Unit #: [id number] Loc: [place] [address] Phys: Pearl Chavez Jesse Acct: [id number] Dis Date: Status: REG ER PHONE #: [phone] Exam Date: 12/25/2020 1726 FAX #: [phone] Reason: h/o low ISMA, unsure if PROM, translabial cervic EXAMS: CPT CODE: [id number] US LTD 31844 <Continued> at 1734 Reported and signed by: Judah Izquierdo M.D. CC: Pearl Chavez DO Technologist: Merna Figueroa RDMS(AB) Trnscb Date/Time: 12/25/2020 (173) [email or web address] Orig Print D/T: S: 12/25/2020 (1737) Probe: PAGE 2 Signed ReportAMNISURE (ROM) [id number] 17:14:00 Test Item Value Reference Range Interpretation Comments AMNISURE (ROM) TEST (test code = NEGATIVE NEGATIVE AMNI) URINALYSIS [id number] 17:10:00 Test Item Value Reference Range Interpretation [...] A = AMORU) DRUGS OF ABUSE SCREEN [id number] 17:07:00 Test Item Value Reference Range Interpretation [...] non-medical pur poses. - US PREG AFTER [id number] 02:47:00 [facility] : 2000 Sex: F Name: LUIS EDMONDS [facility] Madeline Coffman : 2000 Age/S: 19 / F [address] [place] [address] Blvd Unit #: [id number] Loc: [place] [address] Phys: Brittnee Ramirez MD Acct: [id number] Dis Date: Status: REG ER PHONE #: [phone] Exam Date: 11/23/2020 0144 FAX #: [phone] Reason: No PNC, bleeding, approximately 20 weeks EXAMS: CPT CODE: [id number] US PREG AFTER 1ST TRI 27066 EXAM: US, US PREG AFTER 1SRTRI: 11/23/2020, [...] was PAGE 1 Signed Report (CONTINUED) Name: LUIS EDMONDS [facility] [place] : 2000 Age/S: 19 / F [address] [place] [address] Unit #: [id number] Loc: [place] [address] Phys: Brittnee Ramirez MD Acct: [id number] Dis Date: Status: REG ER PHONE #: [phone] Exam Date: 11/23/2020 0144 FAX #: [phone] Reason: No PNC, bleeding, approximately 20 weeks EXAMS: CPT CODE: [id number] US PREG AFTER TRI 09171 <Continued> seen. Cervical length is not visualized. IMPR ESSION: Single live fetus in variable presentation. heart rate is 140 bpm. 2. Sonographic EGAof 19 weeks 6 days and an sonographic DANY of 04/13/2021 +/- one standard deviation. SL:[JSYED-H] at 0247 Reported and signed by: Jeromy Wolfe M.D. CC: Brittnee Ramirez MD Technologist: Maryam Anderson RDMS(BR)(AB) Trnscb Date/Time: 11/23/2020 (246) [email or web address] Orig Print D/T: S: 11/23/2020 (0250) Probe: PAGE 2 Signed Report- US PREG AFTER [id number] 02:47:00 [facility] : 2000 Sex: F Name: LUIS EDMONDS [facility] [place] : 2000 Age/S: 19 / F [address] [place] [address] Blvd Unit #: [id number] Loc: [place] [address] Phys: Brittnee Ramirez MD Acct: [id number] Dis Date: Status: DEP ER PHONE #: [phone] Exam Date: 11/23/2020 0144 FAX #: [phone] Reason: No PNC, bleeding, approximately 20 weeks EXAMS: CPT CODE: [id number] US PREG AFTER 1ST TRI 11313 EXAM: US, US PREG AFTER 1SR TRI: [...] was PAGE 1 Signed Report (CONTINUED) Name: LUIS EDMONDS [facility] Madeline LakeDOB: 2000 Age/S: 19 / F [address] [place] [address] Unit #: [id number] Loc: [place] [address] Phys: Brittnee Ramirez MD Acct: [id number] Dis Date: Status: DEP ER PHONE #: [phone] Exam Date: 11/23/20204 FAX #: [phone] Reason: No PNC, bleeding, approximately 20 weeks EXAMS: CPT CODE: [id number] US PREG AFTER 1ST TRI 53778 <Continued> seen. Cervical length is not visualized. IMPRESSION: Single live fetus in variable presentation. heart rate is 140 bpm. 2. Sonographic EGA of 19 weeks 6 days and an sonographic DANY of 04/13/2021 +/- one standard deviation. SL:[JSYED-H] at 0247 Reported and signed by: Jeromy Wolfe M.D. CC: Brittnee Ramirez MD Technologist: Maryam Anderson RDMS()(AB) Trnscb Date/Time: 11/23/2020 (246) [email or web address] Orig Print D/T: S: 11/23/2020 (0250) Probe: PAGE 2 Signed ReportURINALYSIS [id number] 01:40:00 Test Item Value Reference Range Interpretation [...] code = AMORU) DRUGS OF ABUSE SCREEN [id number] 01:40:00 Test Item Value Reference Range Interpretation [...] ed for non-medical pur poses. CBC W/AUTO [id number] 01:27:00 Test Item Value Reference Range Interpretation [...] (test code NO = MDIFF) BASIC METABOLIC [id number] 02:51:00 Test Item Value Reference Range Interpretation [...] = CA) 9.5 mg/dL 8.0-10.5 N HCG [id number] 02:51:00 Test Item Value Reference Range Interpretation Comments HCG SERUM (test 28828.3 0 - 6 NOT P REGNANT > 6 code = HCG) SUGGESTIVE OF E TREVOR RISES TWO FOLD EVERY 2 DAYS; S UGGEST RECONFIRMING AF TER 2 DAYS. 150,000-200,[address] TRIMESTER 10,00 0 - 50,000 2ND & 3RD TRIME STERResults in emanuel-Management Liaison ational Units/mL URINALYSIS [id number] 02:39:00 Test Item Value Reference Range Interpretation [...] MUCU) TRACE /LPF NONE SEEN CBC W/AUTO [id number] 02:21:00 Test Item Value Reference Range Interpretation [...] MANUAL DIFF REQUIRED (test code NO = IFF) - US PREG 1ST [id number] 02:19:00 [facility] : 2000 Sex: F Name: LUIS EDMONDS [facility] : 2000 Age/S: 19 / F [address] [place] [address] Unit #: [id number] Loc: [place] [address] Phys: Nirav Nolan MD Acct: [id number] Dis Date: Status: REG ERPHONE #: [phone] Exam Date: 10/05/2020209 FAX #: [phone] Reason: VB EXAMS: CPT CODE: [id number] US PREG 1ST TRIMTR 24635 STUDY: - DUP AB/PEL/SC/LTD, - US PREG 1ST TRIMTR 10/05/2020 1:17 AM Ordering Physician: Nirav Nolan MD Patient Name: LUIS EDMONDS MR: [id number] : 2000; Age: 19 years y/o Female [...] days. PAGE 1 Signed Report (CONTINUED) Name: LUIS EDMONDS [facility] : 2000 Age/S: 19 / F [address] [place] [address] Unit #: [id number] Loc: [place] [address] Phys: Nirav Nolan MD Acct: [id number] Dis Date: Status: REG ER PHONE #: [phone] Exam Date: 10/05/2020209 FAX #: [phone] Reason: VB EXAMS:CPT CODE: [id number] US PREG 1ST TRIMTR 59174 <Continued> SL: TPAINTER-H at 021 Reported and signed by: Abdias Avila M.D. CC: Elina Rome MD; Nirav Nolan MD Technologist: Maryam Anderson RDMS(BR)(AB) Trnscb Date/Time: 10/05/2020 (218) [email or web address] Orig Print D/T: S: 10/05/2020 (221) Probe: PAGE 2 Signed Report- DUP AB/PEL/SC/[id number] 02:19:00 [facility] MDAELINE COFFMANName: LUIS EDMONDS : 2000 Sex: F Name: LUIS EDMONDS [facility] Madeline Coffman : 2000 Age/S: 19 / F [address] [place] [address] [address] Unit #: [id number] Loc: [place] [address] Phys: Nirav Nolan MD Acct: [id number] Dis Date: Status: REG ERPHONE #: [phone] Exam Date: 10/05/2020209 FAX #: [phone] Reason: see US PREG 1st TRIMTR EXAMS: CPT CODE: [id number] DUP AB/PEL/SC/LTD 17220 STUDY: - DUP AB/PEL/SC/LTD, - US PREG 1ST TRIMTR 10/05/2020 1:17 AM Ordering Physician: Nirav Nolan MD Patient Name: LUIS EDMONDS MR: [id number] : 2000; Age: 19 years y/o Female Clinical Indication: at 12 weeks with vaginal bleeding. Comparison: None TRANSABDOMINAL PELVIC ULTRASOUND: Technique: Grayscale, color, and Doppler tra nsabdominal imaging of the pelvis was performed with standard technique. UTERUS: Mildly enlarged uterus measuring 12.0 x 8.0 x 9.5 cm without focal myometrial lesion. Well-formed single live intrauterine with crown-rump length measuring [...] days. PAGE 1 Signed Report (CONTINUED) Name: LUIS EDMONDS [facility] Madeline Coffman : 2000 Age/S: 19 / F [address] [place] [address] Blvd Unit #: [id number] Loc: [place] [address] Phys: Nirav Nolan MD Acct: [id number] Dis Date: Status: REG ER PHONE #: [phone] Exam Date: 10/05/2020209 FAX #: [phone] Reason: see US PREG 1st TRIMTR EXAMS: CPT CODE: [id number] DUP AB/PEL/SC/LTD 16435 <Continued> SL: TPAINTER-H at 021 Reported and signed by: Abdias Avila M.D. CC: Elina Rome MD; Nirav Nolan MD Technologist: Maryam Anderson RDMS(BR)(AB) Trnscb Date/Time: 10/05/2020 (218) [email or web address] Orig Print D/T: S: 10/05/2020 (221) Probe: PAGE 2 Signed Report- DUP AB/PEL/SC/[id number] 22:07:00 [facility] MADELINE COFFMANName: LUIS EDMONDS : 2000 Sex: F Name: LUIS EDMONDS [facility] : 2000 Age/S: 19 / F [address] [place] [address] Unit #: [id number] Loc: [place] [address] Phys: Cathy Bruce Acct: [id number] Dis Date: Status: REG ERPHONE #: [phone] Exam Date: 08/22/20202199 FAX #: [phone] Reason: see US PREG 1st TRIMTREXAMS: CPT CODE: [id number] DUP AB/PEL/SC/LTD 78656 PROCEDURE: FIRST TRIMESTER ULTRASOUND INDICATION: 6 weeks [...] SL: SG-H at 2207 Reported and signed by: Judah Izquierdo M.D. CC: Elina Rome MD; Cathy MELO Technologist: Maryam Anderson RDMS(BR)(AB) Trnscb Date/Time: 08/22/2020 (2206) [email or web address] Orig Print D/T: S: 08/22/2020 (2209) Probe: PAGE 1 Signed Report- US PREG 1ST [id number] 22:07:00 [facility] MADELINE CHIGNIK LAGOONName: LUIS EDMONDS : 2000 Sex: F Name: LUIS EDMONDS [facility] Madeline Coffman : 2000 Age/S: 19 / F [address] [place] [address] Blvd Unit #: [id number] Loc: [place] [address] Phys: Cathy Bruce Acct: [id number] Dis Date: Status: REG ER PHONE #: [phone] Exam Date: 08/22/20202199 FAX #: [phone] Reason: 6w , crampingEXAMS: CPT CODE: [id number] PREG 1ST TRIMTR 15878 PROCEDURE: FIRST TRIMESTER ULTRASOUNDINDICATION: 6 weeks with [...] SL: SG-H at 2207 Reported and signed by: Judah Izquierdo M.D. CC: Elina Rome MD; Cathy MELO Technologist: Maryam Anderson RD MS(BR)(AB) Trnscb Date/Time: 08/22/2020 (2206) [email or web address] Orig Print D/T: S: 08/22/2020 (2209) Probe:PAGE 1 Signed ReportURINALYSIS [id number] 21:50:00 Test Item Value Reference Range Interpretation [...] MUCU) TRACE /LPF NONE SEEN BASIC METABOLIC [id number] 21:48:00 Test Item Value Reference Range Interpretation [...] patient ? YHOW MANY WEEKS? 6 WEEKSHCG [id number] 21:48:00 Test Item Value Reference Range Interpretation Comments HCG SERUM (test 99777.6 0 - 6 NOT P REGNANT > 6 code = HCG) SUGGESTIVE OF E TREVOR RISES TWO FOLD EVERY 2 DAYS; S UGGEST RECONFIRMING AF TER 2 DAYS. 150,000-200,[address] TRIMESTER 10,00 0 - 50,000 2ND & 3RD TRIME STERResults in emanuel-Management Liaison ational Units/mL Is patient ? YHOW MANY WEEKS? 6 WEEKSUR HCG [id number] 21:47:00 Test Item Value Reference Range Interpretation Comments UR HCG QUAL (test code = HCGQLU) POSITIVE NEGATIVE CBC W/AUTO [id number] 21:33:00 Test Item Value Reference Range Interpretation [...] (test code NO = MDIFF) CBC W/AUTO [id number] 21:31:00 Test Item Value Reference Range Interpretation [...] REQUIRED (test code = MDIFF) Novel Coronavirus [id number] 14:50:00 Test Item Value Reference Range Interpretation Comments Novel Coronavirus 2018 Negative Negative Perfo rmed by: Vignesh Dx nCoV (test code = Laboratory [address] COVID19) [facility], [address] [place], [place] [address] Phone: CLIA#: [id number] Does patient have the clinical criteria consistent with COVID-19? YIs the patient going to be discharged home? Y- CT NECK [id number] 02:35:00 Name: LUIS EDMONDS [facility] : 2000 Age/S: 19 / F [address] [place] [address] Blvd Unit #: [id number] Loc: [place] [address] Phys: Amilcar Pablo SUPERVISOR [employer]ING Acct: [id number] Dis Date: Status: REG ER PHONE #: [phone] Exam Date: 02/16/2020 0134 FAX #: [phone] Reason: R lymphadenopathy, throat pain, fever EXAMS: CPT CODE: [id number] CT NECK W/CONTRAST 47721 EXAM: CT, CT NECK W/CONTRAST: 02/16/2020, 0132 [...] are PAGE 1 Signed Report (CONTINUED) Name: LUIS EDMONDS [facility] Madeline WahiawaDOB: 2000 Age/S: 19 / F [address] [place] [address] Unit #: [id number] Loc: [place] [address] Phys: Amilcar Pablo NP Acct: [id number] Dis Date: Status: REG ER PHONE #: [phone] Exam Date: 02/16/2020 0134 FAX #: [phone] Reason: R lymphadenopathy, throat pain, fever EXAMS: CPT CODE: [id number] CT NECK W/CONTRAST 92562 <Continued> unremarkable. OSSEOUS STRUCTURES: There are no [...] and signed by: Jeromy Wolfe M.D. CC: Elina Rome MD; Amilcar Pablo NP Technologist:Josué Granado, RT(R)(CT); Natasha CTDI: DLP: Trnscb Date/Time: 02/16/2020 (234) [email or web address] Orig Print D/T: S: 02/16/2020 (1696) PAGE 2 Signed ReportCOMPREHENSIVE METABOLIC [id number] 00:12:00 Test Item Value Reference Range Interpretation [...] IUnit/L 60-350 N code = ALKP) MONO [id number] 00:09:00 Test Item Value Reference Range Interpretation Comments MONO SCREEN (test code = MONO) NEGATIVE NEGATIVE URINALYSIS [id number] 00:02:00 Test Item Value Reference Range Interpretation [...] KURTIS) UA PH DIPSTICK (test code = SHAIAN) 6.0 5.0-7.0 N UA PROTEIN DIPSTICK (test [...] MUCU) 1+ /LPF NONE SEEN COMPREHENSIVE METABOLIC [id number] 00:02:00 Test Item Value Reference Range Interpretation [...] IUnit/L 60-350 code = ALKP) CBC W/AUTO [id number] 23:59:00 Test Item Value Reference Range Interpretation [...] (test NO code = MDIFF) UR HCG [id number] 23:56:00 Test Item Value Reference Range Interpretation Comments UR HCG QUAL (test code = HCGQLU) NEGATIVE NEGATIVE Notes Date/Time Note Provider Source 2022-11-16 15:41:00-00:00 [id number] [place] [address] PATIENT NAME: LUIS EDMONDS ADMIT DATE: ACCOUNT NO: [id number] ROOM NO: [facility] AGE: 21 REPORT TYPE: 360 - QUERY RESPONSE DOCUMENT SEX: F ADMITTING PHYSICIAN:Luis Burciaga MD ATTENDING PHYSICIAN:Luis Burciaga MD Provider Query QUERY TEXT: Clarification Pathology 360MD Query related questions should be directed to: Kyra buck [facility] Coding Query Hotline Based on your clinical judgment, can you confirm the diagnosis that represents the pathology finding (s) of [Insert pathology finding(s)]? Reporting of pathology findings require confirma tion by the attending physician and/or surgeon. The patient's Clinical Indicators include: EGA at delivery (wks/days): 37 week-OB Delivery Note 10/31/2022 Vaginal Delivery-OB Delivery Note 10/31/2022 Placenta With Acute Chlorinitis and acute Vasculitis-Pathology Report Options provided: -- I am in agreement -- I am not in agreement -- Other - I will add my own diagnosis -- Dismiss - Not applicable / Not valid -- Dismiss - Clinically unable to determine / Un known -- Assign to another provider QUERY RESPONSE: Yes, I am in agreement with the pathology findin g(s) noted above. Query created by: FERDINAND LAROSE on 2022 7:54 AM at 1541 PATIENT NAME: LUIS EDMONDS [id number] 2022-11-02 15:02:00-00:00 [facility] [place] [facility] ([facility]) OB Disch REPORT#:[id number] REPORT STATUS: Signed DATE:11/02/22 TIME: 150 PATIENT: LUIS EDMONDS UNIT #: [id number] ROOM/BED: [place] [address] : [birth year] AGE: 21 SEX: F ATTEND: Fabio Burciaga MD ADM AUTHOR: Luis Burciaga MD * ALL edits or amendments must be made on the Vobile/computer document * Subjective Subjective Admission EGA: Weeks: 37 Days: 0 EGA at delivery (wks/days): 37 weeks (1d) Discharge Summary General Assessment: nml progress Hospital course: spontaneous labor, spontaneous vag delivery, nml postop/ postpart care Discharge condition: stable Discharge to: Home/Self Care Discharge diagnosis: full-term uncomp delivery Discharge management: less than 30 mins Baby A: Vaginal delivery: spontaneous status: live born Gender: male Plan: routine care, discharge today Discharge Instructions Instructions: routine instr sheet given Diet: Resume Home Diet/Feeds Activity: Resume Normal Activity Additional discharge routines: None at 1504 RPT #:[id number] END OF REPORT 2022-11-02 14:57:00-00:00 [facility] [place] [facility] ([facility]) OB Postpart Progr Note REPORT#:[id number] REPORT STATUS: Signed DATE:11/02/22 TIME: 1457 PATIENT: LUIS EDMONDS UNIT #: [id number] ROOM/BED: [place] [address] : [birth year] AGE: 21 SEX: F ATTEND: Anand Burciaga MD ADM AUTHOR: Luis Burciaga MD * ALL edits or amendments must be made on the Vobile/computer document * Subjective Subjective Admission EGA: Weeks: 37 Days: 0 EGA at delivery (wks/days): 37 weeks (1d) Status/Day: post (d2) Patient reports: Patient reports: Yes no complaints, Yes normal lochia, Yes pain management effective, Yes tolerating po well, Yes voiding well, Ye s voiding without pain, Yes tolerating ambulation, Yes flatus Objective Nursing Documentation Review Nursing Data: The data set between the solid lines has been im ported from nursing documentation. Any exceptions have been noted be low under Provider comments. Feeding preference: Post hemorrhage risk score: Low Risk for Hemorrhage. Provider comments on imported nursing data: [] General VS: Vital Signs: Date Time Temp Pulse Resp B/P B/P Pulse O2 O2 F low FiO2 Mean Ox Delivery Rate 11/01 1600 36.9 66 18 107/69 100 PATIENT WEIGHT: Weight (lb): Weight (oz): Weight (kg): Physical Exam Abdomen: soft, no abnormal tenderness, no guardi ng Uterus: involution appropriate, non-tender Fundus: firm, below the umbilicus Lochia: normal Lower extremities: Edema: none Colleen's sign: negative Calf tenderness: negative Diagnosis, Assessment Plan Diagnosis, Assessment Plan Assessment: nml progress Plan: routine care, discharge today at 1500 RPT #:[id number] END OF REPORT 2022-11-01 15:13:00-00:00 [facility] [place] [facility] ([facility]) OB Postpart Progr Note REPORT#:[id number] REPORT STATUS: Signed DATE:11/01/22 TIME: 151 PATIENT: LUIS EDMONDS UNIT #: [id number] ROOM/BED: [place] [address] : [birth year] AGE: 21 SEX: F ATTEND: Fabio Burciaga MD ADM AUTHOR: Luis Burciaga MD * ALL edits or amendments must be made on the Vobile/computer document * Subjective Subjective Admission EGA: Weeks: 37 Days: 0 Status/Day: post (d1) Patient reports: Patient reports: Yes no complaints, Yes normal lochia, Yes pain management effective, Yes tolerating po well, Yes voiding well, Ye s voiding without pain, Yes tolerating ambulation, Yes flatus Objective Nursing Documentation Review Nursing Data: The data set between the solid lines has been im ported from nursing documentation. Any exceptions have been noted be low under Provider comments. Feeding preference: Post hemorrhage risk score: Low Risk for Hemorrhage. Provider comments on imported nursing data: [] General VS: Vital Signs: Date Time Temp Pulse Resp B/P B/P Pulse O2 O2 F low FiO2 Mean Ox Delivery Rate 11/01 0800 36.6 59 18 117/76 99 11/01 0445 36.7 75 16 106/69 99 10/31 2315 36.8 83 16 118/77 100 10/31 1930 36.9 65 16 103/69 97 10/31 1810 37.0 76 16 121/73 99 10/31 1715 74.0 10/31 1715 99/62 10/31 1702 77.0 10/31 1702 69 103/57 10/31 1654 79.0 10/31 1654 61 108/64 10/31 1632 87.0 10/31 1632 63 117/70 10/31 1617 75.0 10/31 1617 63 107/55 10/31 1602 67.0 10/31 1602 57 94/46 10/31 1547 82.0 10/31 1547 74 125/57 10/31 1532 81.0 10/31 1532 72 115/56 10/31 1517 81.0 10/31 1517 36.6 68 126/68 PATIENT WEIGHT: Weight (lb): Weight (oz): Weight (kg): Physical Exam Abdomen: soft, no abnormal tenderness, no guardi ng Uterus: involution appropriate, non-tender Fundus: firm, below the umbilicus Lochia: normal Result Findings/Data: Laboratory Tests: 11/01 0545 Hematology WBC (4.5 - 11.0 x10 3/uL) 12.4 H RBC (3.54 - 5.02 x10 6/uL) 3.19 L Hgb (11.0 - 15.0 g/dL) 8.3 L Hct (33.0 - 45.0 %) 27.2 L MCV (81.0 - 99.0 fL) 85.3 MCH (27.0 - 33.0 pg) 26.0 L MCHC (33.0 - 37.0 g/dL) 30.5 L RDW (11.5 - 14.5 %) 16.1 H Plt Count (150 - 400 x10 3/uL) 289 MPV (7.0 - 9.0 fL) 11.3 H Neut % (Auto) (56.0 - 77.0 %) 62.8 Lymph % (Auto) (14.0 - 32.0 %) 25.7 Coryell % (Auto) (4.8 - 9.0 %) 9.7 H Eos % (Auto) (0.3 - 3.7 %) 0.8 Baso % (Auto) (0.0 - 2.0 %) 0.5 Neut # (Auto) (2.0 - 7.6 x10 3/uL) 7.76 H Lymph # (Auto) (1.0 - 3.8 x10 3/uL) 3.17 Coryell # (Auto) (0.1 - 0.8 x10 3/uL) 1.20 H Eos # (Auto) (0.0 - 0.2 x10 3/uL) 0.10 Baso # (Auto) (0.0 - 0.2 x10 3/uL) 0.06 Abs Immat Gran (auto) (0.00 - 0.03 x10 3/uL) 0. 06 H Add Manual Diff NO Immature Gran % (0.0 - 2.0 %) 0.5 Nucleated RBC % (0 - 0 %) 0.0 Nucleated RBCs # (Man) (0.0 - 0.1 x10 3/uL) 0.0 0 Diagnosis, Assessment Plan Diagnosis, Assessment Plan Assessment: nml progress Plan: routine care at 1514 RPT #:[id number] END OF REPORT 2022-10-31 15:14:00-00:00 [facility] [place] [facility] ([facility]) DT History Physical REPORT#:[id number] REPORT STATUS: Signed DATE:10/31/22 TIME: 1514 PATIENT: LUIS EDMONDS UNIT #: [id number] ROOM/BED: [place] [address] : 02 AGE: 21 SEX: F ATTEND: Fabio Burciaga MD ADM AUTHOR: Luis Burciaga MD * ALL edits or amendments must be made on the el ectronic/computer document * History Physical History Physical Patient seen and examined an d care records reviewed with the following updates Laboratory Tests 10/30/221829: [Embedded Image Not Available] Laboratory Tests Test Result Date Time Hematology WBC (4.5 - 11.0 x10 3/uL) 10.1 10/30 1830 RBC (3.54 - 5.02 x10 6/uL) 3.32 L 10/30 1830 Hgb (11.0 - 15.0 g/dL) 8.6 L 10/30 1830 Hct (33.0 - 45.0 %) 27.4 L 10/30 1830 MCV (81.0 - 99.0 fL) 82.5 10/30 1830 MCH (27.0 - 33.0 pg) 25.9 L 10/30 1830 MCHC (33.0 - 37.0 g/dL) 31.4 L 10/30 1830 RDW (11.5 - 14.5 %) 16.1 H 10/30 1830 Plt Count (150 - 400 x10 3/uL) 289 10/30 1830 MPV (7.0 - 9.0 fL) 11.1 H 10/30 1830 Neut % (Auto) (56.0 - 77.0 %) 62.4 10/30 1830 Lymph % (Auto) (14.0 - 32.0 %) 26.3 10/30 1830 Coryell % (Auto) (4.8 - 9.0 %) 9.6 H 10/30 1830 Eos % (Auto) (0.3 - 3.7 %) 0.6 10/30 1830 Baso % (Auto) (0.0 - 2.0 %) 0.3 10/30 1830 Neut # (Auto) (2.0 - 7.6 x10 3/uL) 6.27 10/30 1 830 Lymph # (Auto) (1.0 - 3.8 x10 3/uL) 2.65 10/30 1830 Coryell # (Auto) (0.1 - 0.8 x10 3/uL) 0.97 H 10/30 1830 Eos # (Auto) (0.0 - 0.2 x10 3/uL) 0.06 10/30 18 30 Baso # (Auto) (0.0 - 0.2 x10 3/uL) 0.03 10/30 1 830 Abs Immat Gran (auto) (0.00 - 0.03 x10 3/uL) 0. 08 H 10/30 1830 Add Manual Diff NO 10/30 1829 Immature Gran % (0.0 - 2.0 %) 0.8 10/30 1829 Nucleated RBC % (0 - 0 %) 0.0 10/30 183 Nucleated RBCs # (Man) (0.0 - 0.1 x10 3/uL) 0.0 0 10/30 183 Other Body Source Membrane Rupture (NEGATIVE) POSITIVE H 173 Serology RPR (NONREACTIVE) NONREACTIVE 10/30 1829 Hep Bs Antigen (NonReactive INDEX) NON REACTIV E 10/30 1829 HIV 1 2 Antibody Screen (Nonreactive) Nonreacti ve 10/30 1829 Home Medications: Medication Dose/Rte/Freq Days Qty Entered Last Max Daily Dose Reviewed PNV WITH 1 CAP PO DAILY 09/07/22 CA/IRON/FA/DHA 2149 (PRENATE ESSENTIAL) Strength: 28 MG IRON-1 MG-300 MG CAP DME - CRUTCHES 03/06/22 (CRUTCH SET) 1617 Strength: 1 ITEM EACH NITROFURANTOIN/NITROFURAN 100 MG PO BID 7 14 0 09/27/22 MAC 1637 (MACROBID) Strength: 100 MG CAP NIFEdipine (PROCARDIA) 10 MG PO TID 30 90 09/27 Strength: 10 MG CAP 1638 Current Hospital Medications: Anti-Infective Agents Sig/Victoriano Start time Last Medication Dose Route Stop Time Status Admin Penicillin G 5 MILLION.UN ASDIR 10/30 183 CKD 10/31 Potassium IV 11/06 182 1143 (PENICILLIN G POTASSIUM) Sodium Chloride 100 ML (SODIUM CHLORIDE 0.9% 100 ML) Penicillin G 50 ML Q4H 10/30 183 AC 10/31 Potassium/Sodium IV 11/13 1829 0301 Chlor (Penicillin G 2.5MILL UNITS/NS 50ML) Antihistamine Drugs Sig/Victoriano Start time Last Medication Dose Route Stop Time Status Admin Diphenhydramine HCl 12.5 MG Q6H PRN PRN 10/31 0 345 AC (BENADRYL) IV 11/30 0344 Autonomic Drugs Sig/Victoriano Start time Last Medication Dose Route Stop Time Status Admin Ephedrine Sulfate 10 MG ONCE PRN 10/31 0345 AC (ePHEDrine sulfate) IV 11/30 034 Ephedrine Sulfate 25 MG ONCE PRN 10/31 0345 AC (ePHEDrine sulfate) IM 11/30 0344 Ephedrine Sulfate 10 MG ASDIR PRN 10/30 1830 AC (ePHEDrine sulfate) IV 11/29 182 Ephedrine Sulfate 25 MG ASDIR PRN 10/30 1830 AC (ePHEDrine sulfate) IM 11/29 1829 Cardiovascular Drugs Sig/Victoriano Start time Last Medication Dose Route Stop Time Status Admin Hydralazine HCl 10 MG ASDIR PRN 10/30 1830 AC (APRESOLINE) IV 11/29 182 Labetalol HCl 20 MG ASDIR PRN 10/30 1830 AC (LABETALOL HCL) IV 11/29 1829 Labetalol HCl 40 MG ASDIR PRN 10/30 1830 AC (LABETALOL HCL) IV 11/29 1829 Labetalol HCl 80 MG ASDIR PRN 10/30 1830 AC (LABETALOL HCL) IV 11/29 1829 Lidocaine HCl 30 ML ASDIR PRN 10/30 1830 AC (LIDOCAINE HCL/PF) LOCAL 11/29 1829 Central Nervous System Agents Sig/Victoriano Start time Last Medication Dose Route Stop Time Status Admin Naloxone HCl 0.1 MG ASDIR PRN 10/31 0345 CKD (NARCAN) IV 11/30 0344 Ropivacaine/Fentanyl/ 0 ASDIR 10/31 0345 AC NS EPIDURAL 11/30 0344 1025 (fentaNYL/ROP 200 MCG/0.125% 100ML CASSETTE) Butorphanol Tartrate 1 MG Q3H PRN PRN 10/30 183 0 AC 10/30 (STADOL) IV 11/29 1829 2121 Ropivacaine/Fentanyl/ 0 ASDIR PRN 10/30 1830 A C NS EPIDURAL 11/29 1829 (fentaNYL/ROP 200 MCG/0.125% 100ML CASSETTE) Electrolytic, Caloric, And Gregor Sig/Victoriano Start time Last Medication Dose Route Stop Time Status Admin Citric Acid/Sodium 30 ML ONCE PRN 10/30 1830 AC Citrate PO 11/29 1829 (BICITRA ADULT DOSE) Lactated Ringer's 1,000 ML BOLUS PRN 10/30 1830 AC (LACTATED RINGERS) IV 11/29 1829 Lactated Ringer's 1,000 ML .Q8H 10/30 1830 AC 0 10/30 (LACTATED RINGERS) IV 11/29 1829 2314 Gastrointestinal Drugs Sig/Victoriano Start time Last Medication Dose Route Stop Time Status Admin Famotidine 20 MG ONCE PRN 10/30 1830 AC 10/31 (PEPCID) IV 11/29 182 0838 Metoclopramide HCl 10 MG ONCE PRN 10/30 183 AC 10/31 (REGLAN) IV 11/29 1829 0837 Mineral Oil 30 ML ASDIR PRN 10/30 183 AC (MINERAL OIL) TOPICAL 11/29 182 Misoprostol 800 MCG ONCE PRN 10/30 183 AC (miSOPROStoL) RECTAL 11/29 182 Ondansetron HCl 4 MG Q4H PRN PRN 10/30 183 AC 10/31 (ZOFRAN) IV 11/29 1829 1425 Local Anesthetics (Parenteral) Sig/Victoriano Start time Last Medication Dose Route Stop Time Status Admin Bupivacaine HCl 10 ML ONCE PRN 10/31 0345 CKD (BUPIVACAINE HCL) EPIDURAL 11/30 0344 Bupivacaine HCl 10 ML ASDIR PRN 10/31 0345 CKD (BUPIVACAINE HCL) EPIDURAL 11/30 0344 Bupivacaine HCl 30 ML ASDIR PRN 10/31 0345 CKD (MARCAINE 0.5%) EPIDURAL 11/30 0344 Lidocaine/Epinephrine 5 ML ASDIR PRN 10/31 0345 AC (LIDOCAINE 1.5% W/ LOCAL 11/30 0344 EPINEPHrine) Bupivacaine HCl 0 ASDIR PRN 10/30 183 AC (BUPIVACAINE HCL) EPIDURAL 11/29 182 Oxytocics Sig/Victoriano Start time Last Medication Dose Route Stop Time Status Admin Oxytocin/Sodium 250 ML ASDIR 10/31 0730 AC 10/17 5 Chloride IV 11/30 07 0751 (Oxytocin 15 units/ NS 250 mL) Carboprost 250 MCG ONCE PRN 10/30 1830 AC Tromethamine IM 11/29 182 (HEMABATE) Methylergonovine 0.2 MG ONCE PRN 10/30 183 AC Maleate IM 11/29 182 (METHERGINE) Oxytocin/Sodium 333.33 ML BOLUS PRN 10/30 183 AC Chloride IV 11/29 182 (Oxytocin 15 units/ NS 250 mL) Pharmaceutical Aids Sig/Vcitoriano Start time Last Medication Dose Route Stop Time Status Admin Sterile Water 10 ML ASDIR PRN 10/31 0345 AC (WATER FOR INJECTION) EPIDURAL 11/30 034 Vital Signs: Date Time Temp Pulse Resp B/P B/P Pulse O2 O2 F low FiO2 Mean Ox Delivery Rate 10/31 1457 90 100 10/31 1452 103 100 10/31 1449 75.0 10/31 1449 91 110/62 10/31 1447 80 100 10/31 1442 69 100 10/31 1437 86 100 10/31 1432 110 100 10/31 1427 111 100 10/31 1422 95 100 10/31 1420 82.0 10/31 1420 80 117/58 10/31 1417 76 100 10/31 1412 70 100 10/31 1407 60 99 10/31 1402 73 100 10/31 1357 67 99 10/31 1352 67 99 10/31 1350 74.0 10/31 1350 67 105/55 10/31 1347 72 99 10/31 1342 57 100 10/31 1337 65 100 10/31 1332 68 100 10/31 1327 89 100 10/31 1322 66 100 10/31 1318 75.0 10/31 1318 68 111/53 10/31 1317 74 98 10/31 1312 74 100 10/31 1307 76 99 10/31 1302 71 100 10/31 1257 75 99 10/31 1252 69 97 10/31 1249 75.0 10/31 1249 75 109/57 10/31 1247 75 98 10/31 1242 70 99 10/31 1237 76 100 10/31 1232 71 99 10/31 1227 72 100 10/31 1222 70 99 10/31 1219 77.0 10/31 1219 72 114/56 10/31 1217 83 99 10/31 1212 69 97 10/31 1207 72 100 10/31 1203 36.8 10/31 1202 82 97 10/31 1157 68 99 10/31 1152 62 99 10/31 1148 72.0 10/31 1148 73 97/54 04 1147 70 98 10/31 1142 74 99 10/31 1137 75 98 10/31 1132 68 98 10/31 1129 72.0 10/31 1129 65 99/53 10/31 1127 68 97 04/15 1122 62 98 04/15 1118 65.0 04/15 1118 68 89/47 04 1117 71 97 10/31 1112 68 98 10/31 1107 70 98 10/31 1102 66 98 10/31 1057 79 100 10/31 1052 79 100 04 1051 16 10/31 1048 79.0 10/31 1048 68 111/56 04 1047 71 100 04/ 1046 16 10/31 1042 82.0 15 1042 91 115/59 100 04/15 1041 16 10/31 1037 82.0 04/15 1037 87 112/57 100 04/ 1036 16 10/31 1032 81.0 10/31 1032 92 120/56 100 / 1031 17 10/31 1028 78.0 10/31 1028 82 119/61 10/31 1027 84 100 10/31 1022 74 100 04/ 1021 17 10/31 1021 81.0 10/31 1021 68 117/59 10/31 1017 76 100 10/31 1012 75 100 15 1007 96 100 /15 0955 84 100 / 0715 36.7 17 15 0646 37.0 89 91 /15 0641 73 98 /15 0305 74.0 04/15 0305 83 100/58 04/15 0201 37.3 04/15 0040 84 100 /15 0035 93 100 /15 0031 95 91 /15 0030 102 100 /15 0025 84 100 /15 0020 90 100 15 0015 91 100 /15 0010 101 99 /15 0005 93 100 /15 0000 89 100 14 2357 84.0 10/30 2357 93 117/66 04 2356 36.9 04 2355 88 100 10/30 2350 90 100 10/30 2349 90 91 10/30 2345 83 100 10/30 2340 89 98 10/30 2335 100 99 10/30 2330 93 98 10/30 2325 96 99 10/30 2320 94 99 10/30 2315 95 99 10/30 2310 98 99 10/30 2305 98 98 10/30 2300 92 99 10/30 2255 81 98 10/30 2250 90 98 10/30 2245 92 99 10/30 2240 82 98 10/30 2235 90 98 10/30 2230 88 97 10/30 2225 98 98 10/30 2220 87 98 10/30 2215 89 99 10/30 2210 96 98 10/30 2205 85 97 10/30 2200 87 99 10/30 2155 93 98 10/30 2150 90 98 10/30 2145 94 97 10/30 2140 99 98 10/30 2135 37.1 105 100 10/30 1943 75.0 10/30 1943 94 110/59 10/30 1941 223 94 10/30 1820 114 98 10/30 1815 107 98 10/30 1810 111 98 10/30 1805 111 98 10/30 1800 128 99 10/30 1755 120 98 10/30 1750 151 98 10/30 1745 112 98 10/30 1740 117 98 10/30 1735 113 98 10/30 1730 36.6 136 18 98 10/30 1725 77.0 10/30 1725 139 117/55 98 at 1514 RPT #:[id number] END OF REPORT 2022-10-31 15:12:00-00:[address] [facility]) OB Delivery Note REPORT#:[id number] REPORT STATUS: Signed DATE:10/31/22 TIME: 1512 PATIENT: LUIS EDMONDS UNIT #: [id number] ROOM/BED: [place] [address] : 02 AGE: 21 SEX: F ATTEND: Fabio Burciaga MD ADM AUTHOR: Luis Burciaga MD * ALL edits or amendments must be made on the el ectronic/computer document * OB Delivery Nursing Documentation Review Nursing data: The data set between the solid lines has been im ported from nursing documentation. Any exceptions have been noted be low under Provider comments. _ ROM date: 10/30/22 ROM time: 1710 Membranes rupture method: AROM Amniotic fluid color: Clear Amniotic fluid amount: Steroids prior to arrival: Antibiotic prophylaxis given: Post hemorrhage risk score: Low Risk for Hemorrhage. Delivery date A: Delivery time infant A: Birthweight (gm) infant A: Weight (lb) A: Weight (oz) infant A: Gender infant A: 1 minute A: 5 minutes A: 10 minutes infant A: Cord pH obtained infant A: Vacuum time infant A: Vacuum # pulls A: Vacuum # popoffs A: QBL at delivery: __ Provider comments on imported nursing data: [] Pre-delivery GBS status: GBS status: unknown Prophylaxis administered: penicillin evaluation at delivery: NRP certified pe rsonnel Admission EGA: Weeks: 37 Days: 0 EGA at delivery (wks/days): 37 weeks (1d) Admission indication: active labor Blood Loss/Details Blood loss at delivery: 50 Baby A Information Baby A information Delivery date: 10/31/22 status: live born Gender: male Presentation: vertex ABG details Baby A Cord blood gases: collected Nuchal cord Baby A Nuchal cord: no Vaginal Delivery Vaginal Delivery Vaginal delivery: Labor: spontaneous Medications/Devices used: oxytocin Vaginal delivery: spontaneous Amniotic fluid: clear Anesthesia type: epidural anesthesia Episiotomy: none Placenta: spontaneous, intact, sent to patholog y Post delivery meds used: oxytocin Count: correct Mother's condition: mother stable Infant's condition: infant stable in room at 1514 RPT #:[id number] END OF REPORT 2022-09-27 16:38:00-00:00 [facility] ([facility]) OB Disch Undelivered REPORT#:[id number] REPORT STATUS: Signed DATE:09/27/22 TIME: 1638 PATIENT: BI EDMONDS UNIT #: [id number] ROOM/BED: [place] [address] : 02 AGE: 21 SEX: F ATTEND: Fabio Burciaga MD ADM AUTHOR: Effie Marquez * ALL edits or amendments must be made on the [employer] document * Subjective Subjective Admission EGA: Weeks: 32 Days: 1 Current EGA weeks/days: 32 week Free Text Subj Notes Free Text Subj Notes: She refers good movements and mignon es any gush of vaginal fluids, vaginal bleeding. Objective General VS: Last Documented: Result Date Time B/P Mean 77.0 09/27 1245 B/P 119/58 09/27 1245 Temp 98.1 09/27 1245 Pulse 96 09/27 1245 Resp 18 09/27 1245 Pulse Ox 93 09/26 2230 Vital Signs Date Temp Pulse Resp B/P B/P Mean Pulse Ox FiO2 09/26-09/27 98.1 82-96 18 99-119/55-58 73.0-79. 0 93 PATIENT WEIGHT: Weight (lb): Weight (oz): Weight (kg): Objective General VS/I O: Vital Signs Date Temp Pulse Resp B/P B/P Mean Pulse Ox FiO2 /-09/27 98.1 82-96 18 99-119/55-58 73.0-79. 0 93 Last Documented: Result Date Time B/P Mean 77.0 / 1245 B/P 119/58 09/27 1245 Temp 98.1 / 1245 Pulse 96 / 1245 Resp 18 09/27 1245 Pulse Ox 93 09/26 2230 Vital Signs: Date Time Temp Pulse Resp B/P B/P Pulse O2 O2 F low FiO2 Mean Ox Delivery Rate 09/27 1245 77.0 09/27 1245 98.1 96 18 119/58 09/27 0708 75.0 09/27 0708 91 105/55 09/27 318 73.0 09/27 318 88 99/57 09/26 2229 82 93 09/26 2228 79.0 09/26 2228 84 110/58 PATIENT WEIGHT: Weight (lb): Weight (oz): Weight (kg): Free Text Obj Notes Free Text Obj Notes: Gen: AAOx3 Lungs: normal respiratory effort Neuro: Exam: alert, oriented x3 Abdomen: gravid, soft Uterine activity: Monitor: toco Frequency (description): None Frequency (minutes): 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 32 weeks gestation of Free Text A P: IUP 32 07/25 +FFN Patient was admitted last night due to +FFN. She was evaluated by MFM who recommended discharge home. No cervical change. Will discharge home on Macrobid for UTI and procardia. Patent f ound to be hemodynamically stable with normal vital signs, category I strip and f ound not to be in labor. 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 Assessment: no evidence labor Impression: reactive NST Plan: discharge home Plan discussed with: patient, nurse Admission diagnosis: false labor Hospital course: She was admitted for observation due to +FFN Discharge to: Home/Self Care Discharge diagnosis: false labor Discharge Instructions Diet: Regular Additional Discharge Routines: PCP Follow-Up Prescriptions: Continue taking these medications: PNV WITH CA/IRON/FA/DHA (PRENATE ESSENTIAL) 28 M G IRON-1 MG-300 MG CAP 1 CAPSULE ORAL DAILY. Start taking the following new medications: NITROFURANTOIN/NITROFURAN MAC (MACROBID) 100 MG CAP 100 MILLIGRAM ORAL TWICE DAILY. Days = 7 Qty = 14 No Refills NIFEdipine (PROCARDIA) 10 MG CAP 10 MILLIGRAM ORAL THREE TIMES A DAY. Days = 30 Qty = 90 No Refills PCP follow-up: PCP: Luis Burciaga MD PCP follow up timeframe: In 1-2 weeks at 1953 RPT #:[id number] END OF REPORT 2022-09-27 10:39:00-00:00 [facility] ([facility]) OB Antepartum Prog Note REPORT#:[id number] REPORT STATUS: Signed DATE:09/27/22 TIME: 1039 PATIENT: BI EDMONDS UNIT #: [id number] ROOM/BED: [place] [address] : 02 AGE: 21 SEX: F ATTEND: Fabio Burciaga MD ADM AUTHOR: Effie Marquez MD * ALL edits or amendments must be made on the [employer] document * Subjective Subjective Admission EGA: Weeks: 32 Days: 1 Free Text Subj Notes Free Text Subj Notes: She refers good movements and mignon es any gush of vaginal fluids, vaginal bleeding. Review of Systems Additional notes: Constitutional: Denies: chills, fatigue, fever, generalized weak ness, lethargy, malaise. Respiratory: Denies: productive cough (sputum), SOB. GI: Denies: abdominal pain, constipation, diarrhea, nausea, vomiting. : Denies: urgency, vaginal bleeding. Neuro: Denies: headache Objective Nursing Documentation Review Nursing data: The data set between the solid lines has been im ported from nursing documentation. Any exceptions have been noted be low under Provider comments. ROM date: ROM time: Labor onset date: Labor onset time: Provider comments on imported nursing data: [] Objective General VS/I O: Vital Signs Date Temp Pulse Resp B/P B/P Mean Pulse Ox FiO2 /-09/27 98.1 82-96 18 99-119/55-58 73.0-79. 0 93 Last Documented: Result Date Time B/P Mean 77.0 09/27 1245 B/P 119/58 09/27 1245 Temp 98.1 09/27 1245 Pulse 96 09/27 1245 Resp 18 09/27 1245 Pulse Ox 93 09/26 2230 Vital Signs: Date Time Temp Pulse Resp B/P B/P Pulse O2 O2 F low FiO2 Mean Ox Delivery Rate 09/27 1245 77.0 09/27 1245 98.1 96 18 119/58 09/27 0708 75.0 09/27 0708 91 105/55 09/27 0319 73.0 09/27 0319 88 99/57 09/26 2230 82 93 09/26 2229 79.0 09/26 2229 84 110/58 PATIENT WEIGHT: Weight (lb): Weight (oz): Weight (kg): Free Text Obj Notes Free Text Obj Notes: Gen: AAOx3 Lungs: normal respiratory effort Neuro: Exam: alert, oriented x3 Abdomen: gravid, soft Uterine activity: Monitor: toco Frequency (description): none Frequency (minutes): 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 Will check her this afternoo n. at 1950 RPT #:[id number] END OF REPORT 2022-09-27 09:19:00-00:00 [facility] ([facility]) [facility] Consultation Note REPORT#:[id number] REPORT STATUS: Signed DATE:09/27/22 TIME: 918 PATIENT: BI EDMONDS UNIT #: [id number] ROOM/BED: [place] [address] : 02 AGE: 21 SEX: F ATTEND: Anand Burciaga MD ADM AUTHOR: Kahlil Moore MD * ALL edits or amendments must be made on the el [employer]/computer document * History of Present Illness HPI Requesting clinician: Hospitalist Reason for consult: Thr PTL History Nursing Documentation Review Nursing data: The data set between the solid lines has been im ported from nursing documentation. Any exceptions have been noted be low under Provider comments. Prior history : 2 Para: 1 Term: : Abortions spontaneous: Abortions induced: Living children: Ectopic: Stillbirths: Live births: deaths: Number of previous C/S: Current data EDC: 11/20/22 EGA (weeks/days): 32.1 EGA at admit (weeks): EGA at delivery (weeks): 32 Steroids prior to arrival: Antibiotic prophylaxis given: ROM date: ROM time: Labor onset date: Labor onset time: Reported maternal labs/data Blood type: Rh type: Rubella: Hepatitis B: HIV exposure test: VDRL: Sexually transmitted diseases: Gonorrhea: Syphilis: Herpes simplex type 1 2: Chlamydia: Condyloma: Human papillomavirus: Group B beta strep: Rho(D) immune globulin this preg: Monitor mode - UA: Nolan units: Feeding preference: Delivery data Delivery date A: Delivery time infant A: Birthweight (gm) A: Weight (lb) A: Weight (oz) infant A: Gender infant A: 1 minute A: 5 minutes infant A: 10 minutes A: Cord pH obtained infant A: Vacuum time infant A: Vacuum # pulls infant A: Vacuum # popoffs A: Provider comments on imported nursing data: [] Past History Past family history: FATHER (Heart dz. DM). MOTHER (Cervical CA. Mult sclerosis. Osteoporosi s. Arthritis). GRANDMOTHER (MGM +DM). GRANDFATHER (PGF +DM). Allergies: Uncoded Allergies: MARCUS ACID- THROAT SWELLING (Severe, 08/03/22) Review of Systems : Denies: dysuria, flank pain, frequency, hematuri a, nocturia, pelvic pain, , urgency, urinary retention, vaginal bl eeding, vaginal discharge. All systems rev neg: except as marked Objective Physical Exam VS/I O: Last Documented: Result Date Time B/P Mean 75.0 09/27 0708 B/P 105/55 09/27 0708 Pulse 91 09/27 0708 Pulse Ox 93 09/26 2230 Temp 36.7 09/26 1858 Resp 18 09/26 185 PATIENT WEIGHT: Weight (lb): Weight (oz): Weight (kg): Results Findings/Data: Laboratory Tests 09/26 1924 Miscellaneous Fibronectin (NEGATIVE) POSITIVE H Laboratory Tests 09/26 2100 Other Body Source Membrane Rupture (NEGATIVE) NEGATIVE Laboratory Tests 09/26 1924 Toxicology Urine Opiates Screen (NEGATIVE) NEGATIVE Urine Barbiturates (NEGATIVE) NEGATIVE Ur Phencyclidine Scrn (NEGATIVE) NEGATIVE Ur Amphetamines Screen (NEGATIVE) NEGATIVE U Benzodiazepines Scrn (NEGATIVE) NEGATIVE Urine Cocaine Screen (NEGATIVE) NEGATIVE Urine Cannabinoids (NEGATIVE) NEGATIVE Laboratory Tests 09/26 1924 Urines Urine Color (YEL/STRAW) YELLOW Urine Appearance (CLEAR) SL CLOUDY Urine pH (5.0 - 7.0) 5.0 Ur Specific [place] (1.005 - 1.030) 1.033 H Urine Protein (NEGATIVE) 2+ H Urine Glucose (UA) (NEGATIVE) NEGATIVE Urine Ketones (NEGATIVE) TRACE H Urine Blood (NEGATIVE) NEGATIVE Urine Nitrite (NEGATIVE) NEGATIVE Urine Bilirubin (NEGATIVE) 1+ H Urine Urobilinogen (0.2 - 1.0 mg/dL) 2.0 H Ur Leukocyte Esterase (NEGATIVE) TRACE H Urine RBC (0 - 3 RBC/HPF) 0-3 Urine WBC (0 - 3 WBC/HPF) 10-20 H Ur Squamous Epith Cells (NONE SEEN /HPF) 11-25 H Urine Bacteria (NONE SEEN /HPF) TRACE Urine Mucus (NONE SEEN /LPF) 4+ H Microbiology Date/Time Procedure - Status Source Growth 09/26 1924 Wet Prep - COMP VAGINAL Diagnosis, Assessment Plan Diagnosis, Assessment Plan Free Text A P: MFM Consultation Pt seen and evaluated Luis is a 21yo at 32w2d (EDC ) admitted for Thr PTL yesterday. Cx apparently 1 cm She is feeling well Denies LOF, CTX or VB currently Reports good FM Earlier admission last month for possible PPROM but ruled out. PNC - significant for short interval PMH - none PSH - none ObHx - at term, had elevated BPs at term SocHx - neg x3 NKDA Meds - PNV AF VSS NST: 120-130, mod eddie, + accels, cat I labs reviewed US today: cephalic, ant. christopher centa, EFW = 4lb 11oz (68%ile), nl range ISMA = 9.8cm , nl BPP 8/8, nl umb. art. Dopplers and MCA Dopp ler A/P 21yo at 32w2d (EDC 11/20/2022) - Threatened PTL Contractions appear to have abated. survei llance reassuring. FFN +. I would hold on ANCS at this juncture as delivery within the next 7 days appear unlikely. If her SVE remains stable at 24 hour, she may be considered for DC. Questions addressed. - Short Interval will cont. to follow - Hx of PIH in Prior per report today no evidence of PIH at present will monitor Thank you for sharing in the care of your patien t! Will cont. to follow with you closely Floor time 50min at 0927 [facility] #:[id number] END OF REPORT 2022-09-27 05:02:00-00:00 [facility] ([facility]) OB Admission / H P REPORT#:[id number] REPORT STATUS: Signed DATE:09/27/22 TIME: 0502 PATIENT: BI EDMONDS UNIT #: [id number] ROOM/BED: [place] [address] : 02 AGE: 21 SEX: F ATTEND: Fabio Burciaga MD ADM AUTHOR: Zoila Gomez DO * ALL edits or amendments must be made on the [employer] document * OB History Chief complaint: uterine contractions, decreased movement HPI: 11 yo EDC 11-20-22 presen carol to [facility] at 32 1/7wks complained of cramping pain at suprapubic area since last week and decreased FM today. +Lower back pain. Patient was admitted for +Amnisure at 29 +wks on 09-07-22. Repeat Amnisure on was negative and pt discharged zuly e on 09-14-22. Pt did not have f/u with MFM since DC home from the hospital. Received 2 doses of steroid on 09-08-22 and . PN care by Dr Burciaga. Due to +FFN today with Cx 1+/50/-3, will admit f or 23h observation. Current : Admission EGA (weeks) 32 Admission EGA (days) 1 Past History Past Medical History: Reports: Asthma. Additional Surgical History: tonsilectomy Additional Family History FATHER (Heart dz. DM). MOTHER (Cervical CA. Mult sclerosis. Osteoporosi s. Arthritis). GRANDMOTHER (MGM +DM). GRANDFATHER (PGF +DM). Alcohol Use Denies EtOH use Drug Use Denies recreational drugs Smoking status for patients 13 years old or olde r: Never Smoker Allergies: Uncoded Allergies: MARCUS ACID- THROAT SWELLING (Severe, 08/03/22) Objective General VS: Last Documented: Result Date Time B/P Mean 73.0 09/27 0319 B/P 99/57 09/27 0319 Pulse 88 09/27 031 Pulse Ox 93 09/26 2230 Temp 98.1 09/26 1859 Resp 18 09/26 1859 Vital Signs Date Temp Pulse Resp B/P B/P Mean Pulse Ox FiO2 09/26-09/27 98.1 82-123 18 99-112/57-66 73.0-82 .0 93-98 PATIENT WEIGHT: Weight (lb): Weight (oz): Weight (kg): Physical Exam Breasts: deferred Neuro: Exam: alert, oriented x3, normal speech Abdomen: gravid, soft, no abnormal tenderness Uterine activity: Monitor: toco Frequency (description): none Cervical/ exam: Dilatation (cm): 1+/50/-3. Vtx. Memb intact Lower extremities: Edema: none Baby A: Baby A baseline: 135 bpm Baby A variability: moderate 6-25 bpm Baby A accelerations: 15 X 15 Baby A decelerations: none Baby A FHR category: category 1 Results Findings/Data: Laboratory Tests: Wet Prep negative for Yeast, BV, Trich 09/26 Miscellaneous Fibronectin (NEGATIVE) POSITIVE H Other Body Source Membrane Rupture (NEGATIVE) NEGATIVE Toxicology Urine Opiates Screen (NEGATIVE) NEGATIVE Urine Barbiturates (NEGATIVE) NEGATIVE Ur Phencyclidine Scrn (NEGATIVE) NEGATIVE Ur Amphetamines Screen (NEGATIVE) NEGATIVE U Benzodiazepines Scrn (NEGATIVE) NEGATIVE Urine Cocaine Screen (NEGATIVE) NEGATIVE Urine Cannabinoids (NEGATIVE) NEGATIVE Urines Urine Color (YEL/STRAW) YELLOW Urine Appearance (CLEAR) SL CLOUDY Urine pH (5.0 - 7.0) 5.0 Ur Specific [place] (1.005 - 1.030) 1.033 H Urine Protein (NEGATIVE) 2+ H Urine Glucose (UA) (NEGATIVE) NEGATIVE Urine Ketones (NEGATIVE) TRACE H Urine Blood (NEGATIVE) NEGATIVE Urine Nitrite (NEGATIVE) NEGATIVE Urine Bilirubin (NEGATIVE) 1+ H Urine Urobilinogen (0.2 - 1.0 mg/dL) 2.0 H Ur Leukocyte Esterase (NEGATIVE) TRACE H Urine RBC (0 - 3 RBC/HPF) 0-3 Urine WBC (0 - 3 WBC/HPF) 10-20 H Ur Squamous Epith Cells (NONE SEEN /HPF) 11-25 H Urine Bacteria (NONE SEEN /HPF) TRACE Urine Mucus (NONE SEEN /LPF) 4+ H Microbiology: Date/Time Procedure - Status Source Growth 09/26 1924 Urine Culture - RECD URINE 09/26 1924 Wet Prep - COMP VAGINAL Recent Impressions: ULTRASOUND - US BIOPHYS PROF 09/26 2004 Report Impression - Status: SIGNED Entered: 09/26/20222113 IMPRESSION: 1. Single living intrauterine in cepha lic position. 2. biophysical profile score of 8/8. SL: 131. Impression By: Karoline Wilson M.D. ULTRASOUND - US PREG AFTER 1ST TRI 09/26 2004 Report Impression - Status: SIGNED Entered: 09/26/20222116 IMPRESSION: 1. Single viable intrauterine gestation in cepha lic presentation. 2. Normal growth concordant with dates. 3. Normal biophysical profile. Impression By: [email or web address] Pati Wolfe M.D. Diagnosis, Assessment Plan Diagnosis, Assessment Plan Comments: Impression: 1. IUP at 32 2/7wks 2. +FFN 3. Adv cervical dilation Plan: 1. Phone consult called to [facility], Dr Judge. No Celestone is needed ( last course of steroid was given 3+ wk ago on 09-08-22 and 09-09-22 ). No MgSO4 is needed at 32 1/7wks with no contract ions. 2. Admit for 23h observation. 3. Will recheck cx in AM. If no contraction or c ervical change, will DC home. Electronically Signed by Zoila Gomez DO on at 0512 RPT #:[id number] END OF REPORT 2022-09-26 19:34:00-00:00 [facility] ([facility]) [facility] Evaluation Note REPORT#:[id number] REPORT STATUS: Signed DATE:09/26/22 TIME: 1933 PATIENT: BI EDMONDS UNIT #: [id number] ROOM[facility]BED: [facility] : 02 AGE: 21 SEX: F ATTEND: Fabio Burciaga MD ADM AUTHOR: Zoila Gomez DO * ALL edits or amendments must be made on the el [employer]/computer document * See Addendum [facility] History Chief complaint: uterine contractions, decreased movement HPI: 21 yo EDC 11-20-22 presented to [facility] at 32 1 /7wks complained of cramping pain at suprapubic area since last week and decr eased FM today. +Lower back pain. Patient was admitted for +Amnisure at 29 +wks on 09-07-22. Repeat Amnisure on was negative and pt discharged zuly e on 09-14-22. Pt did not have f/u with MFM since DC home from the hospital. Received 2 doses of steroid on 09-08-22 and . PN care by Dr Burciaga Past medical history: denies PMH Past surgical history: tonsils/adenoids Social history: no alcohol use, no tobacco use, no drug use Family history FATHER (Heart dz. DM). MOTHER (Cervical CA. Mult sclerosis. Osteoporosi s. Arthritis). GRANDMOTHER (MGM +DM). GRANDFATHER (PGF +DM). Medications: Home Medications: Medication Dose/Rte/Freq Days Qty Entered Last Max Daily Dose Reviewed PNV WITH 1 CAP PO DAILY 09/07/22 CA/IRON/FA/DHA 2149 (PRENATE ESSENTIAL) Strength: 28 MG IRON-1 MG-300 MG CAP DME - CRUTCHES 03/06/22 (CRUTCH SET) 1617 Strength: 1 ITEM EACH Allergies Uncoded Allergies: MARCUS ACID- THROAT SWELLING (Severe, 08/03/22) Objective General VS: Last Documented: Result Date Time Pulse Ox 98 09/26 1858 Temp 98.1 09/26 185 Pulse 123 09/26 185 Resp 18 09/26 1858 B/P Mean 82.0 09/26 1857 B/P 112/66 09/26 185 Vital Signs Date Temp Pulse Resp B/P B/P Mean Pulse Ox FiO2 09/26 98.1 114-123 18 82.0 98 PATIENT WEIGHT: Weight (lb): Weight (oz): Weight (kg): Physical Exam Breasts: deferred Neuro: Exam: alert, oriented x3, normal speech Abdomen: gravid, soft, no abnormal tenderness Uterine activity: Monitor: toco Cervical/ exam: Dilatation (cm): spec:no pooling. Frothy white discharge. Cx 1+/50/-3. Vtx FHR evaluation: Baseline: 140 bpm Variability: moderate 6-25 bpm Accelerations: 15 X 15 Decelerations: none FHR category: category 1 Lower extremities: Edema: none Diagnosis, Assessment Plan Diagnosis, Assessment Plan Comments: Impression: 1. IUP at 32 1/7wk. 2. Contractions. 3. Decreased FM 4. Frothy Vaginal discharge. Plan: 1. FFN. 2. Wet prep. 3. UA 4. UDS. 5. BPP 6. OB US Electronically Signed by Zoila Gomez DO on at 0452 Addendum 1: 09/27/22 0452 by Zoila Gomez DO At 2152 FHT 135 cat 1 strip with mod variability, accele rations 15x15. Cxn none CX unchanged 1+/50/-3. FFN was positive. Amnisure negative. Wet prep negative. UDS negative. UA +2 protein. 10-20 WBC. TX with po Macrobid 10 0mg BID. OB US 31 3/7wks. CWD. Cephalic. Ant placenta, gr radhika 2. ISMA 11.4cm. EFW 1628g (3lb9). BPP 8/8. Due to +FFN, will admit for 23hr obs. Phone consult called to [facility], Dr Judge. No Celestone is needed ( last course of steroid was given 3+ wk ago on 09-08-22 and 09-09-22 ). No MgSO4 is needed at 32 1/7wks with no contract ions. POC dw patient, nurse Electronically Signed by Zoila Gomez DO on at 0502 RPT #:[id number] END OF REPORT 2022-09-26 19:30:00-00:00 [facility] ([facility]) OB Medical Screening Exam REPORT#:[id number] REPORT STATUS: Signed DATE:09/26/22 TIME: 1929 PATIENT: BI EDMONDS UNIT #: [id number] ROOM/BED: 204- : 02 AGE: 21 SEX: F ATTEND: Fabio Burciaga MD ADM DT: AUTHOR: Zoila Gomez DO * ALL edits or amendments must be made on the [employer] document * Medical Screening Exam Provider Attestation Comments: Patient was seen at 1920 for contraction , back pain, and decreased FM at 32 1/ 7wks Electronically Signed by Zoila Gomez DO on at 1931 RPT #:[id number] END OF REPORT 2022-09-14 08:43:00-00:00 [facility] ([facility]) OB Disch Undelivered REPORT#:[id number] REPORT STATUS: Signed DATE:09/14/22 TIME: 842 PATIENT: LUIS EDMONDS UNIT #: [id number] ROOM/BED: 348-1 : 02 AGE: 21 SEX: F ATTEND: Fabio Burciaga MD ADM AUTHOR: Luis Burciaga MD * ALL edits or amendments must be made on the [employer] document * Objective Physical Exam FHR evaluation: Baby A FHR category: category 1 Uterine activity: Monitor: toco Intensity: mild HEENT: normocephalic w/o injury Lungs: unlabored breathing Abdomen: gravid, soft, no abnormal tenderness, n o guarding, no rebound tenderness Lower extremities: Edema: none Colleen's sign: negative Calf tenderness: negative Discharge Undelivered [facility] Hospital course: Patient admitted with a diag nosis of PPROM then ruled out after full evaluation with MFM. She had pain and p ressure that resolved and was cleared for discharge by MFM Discharge to: Home/Self Care Discharge condition: stable Discharge diagnosis: pre-term labor Discharge management: less than 30 mins Discharge Instructions Instructions: routine instr sheet given Diet: Resume Home Diet/Feeds Additional Discharge Routines: None at 0845 RPT #:[id number] END OF REPORT 2022-09-14 08:41:00-00:00 [facility] ([facility]) OB Antepartum Prog Note REPORT#:[id number] REPORT STATUS: Signed DATE:09/14/22 TIME: 0841 PATIENT: LUIS EDMONDS UNIT #: [id number] ROOM/BED: [place] [address] : 02 AGE: 21 SEX: F ATTEND: Fabio Burciaga MD ADM AUTHOR: Luis Burciaga MD * ALL edits or amendments must be made on the el [employer]/computer document * Subjective Subjective Current EGA: Current EGA(wks): 30 Current EGA(days): 2 Patient reports: Patient reports: Yes: normal movement. No: complaints, abd ominal pain, vaginal bleeding , leaking fluid, contractions. Objective Nursing Documentation Review Nursing data: The data set between the solid lines has been im ported from nursing documentation. Any exceptions have been noted be low under Provider comments. ROM date: 09/07/22 ROM time: 1730 Labor onset date: Labor onset time: Provider comments on imported nursing data: [] VS: Last Documented: Result Date Time B/P Mean 79.0 09/13 2350 B/P 113/57 09/13 2350 Pulse 95 09/13 2350 Pulse Ox 100 09/13 2020 Temp 36.8 09/13 2020 Resp 16 09/13 2020 Vital Signs Date Temp Pulse Resp B/P B/P Mean Pulse Ox FiO2 09/13 36.8 72-121 16 109-123/57-61 78.0-86.0 9 6-100 PATIENT WEIGHT: Weight (lb): 172 Weight (oz): 6.42 Weight (kg): 78.200 Membranes: PPROM ROM date: 09/07/22 Amniotic fluid: clear Uterine activity: Monitor: toco Intensity: mild HEENT: normocephalic w/o injury Cardiac: regular rate and rhythm Lungs: unlabored breathing Abdomen: gravid, soft, no abnormal tenderness, n o guarding, no rebound tenderness Lower extremities: Edema: none Colleen's sign: negative Calf tenderness: negative Baby A: Baby A FHR category: category 1 Diagnosis, Assessment Plan Diagnosis, Assessment Plan Assessment: threatened labor Plan: discharge home at 0843 RPT #:[id number] END OF REPORT 2022-09-13 17:53:00-00:00 [facility] ([facility]) OB Antepartum Prog Note REPORT#:[id number] REPORT STATUS: Signed DATE:09/13/22 TIME: 1753 PATIENT: LUIS EDMONDS UNIT #: [id number] ROOM/BED: [place] [address] : 02 AGE: 21 SEX: F ATTEND: Fabio Burciaga MD ADM AUTHOR: Luis Burciaga MD * ALL edits or amendments must be made on the el [employer] document * Subjective Subjective Current EGA: Current EGA(wks): 30 Current EGA(days): 2 Patient reports: Patient reports: Yes: complaints, abdominal pain, contractions, normal movement. No: vaginal bleeding, leaking fluid, headache, blurr ed vision, scotomata, fever, chills. Objective Nursing Documentation Review Nursing data: The data set between the solid lines has been im ported from nursing documentation. Any exceptions have been noted be low under Provider comments. ROM date: 09/07/22 ROM time: 1730 Labor onset date: Labor onset time: Provider comments on imported nursing data: [] VS: Last Documented: Result Date Time B/P Mean 86.0 09/13 1314 Pulse Ox 96 09/13 1314 B/P 123/61 09/13 1314 Pulse 72 09/13 1314 Temp 36.8 09/12 2335 Resp 18 09/12 2335 Vital Signs Date Temp Pulse Resp B/P B/P Mean Pulse Ox FiO2 09/12-09/13 36.8 72-114 18 100-123/53-72 71.0-8 7.0 96-98 PATIENT WEIGHT: Weight (lb): 172 Weight (oz): 6.42 Weight (kg): 78.200 Membranes: PPROM ROM date: 09/07/22 Amniotic fluid: clear Uterine activity: Monitor: toco Intensity: mild HEENT: normocephalic w/o injury Cardiac: regular rate and rhythm Lungs: unlabored breathing Abdomen: gravid, soft, no abnormal tenderness, n o guarding, no rebound tenderness Lower extremities: Edema: none Colleen's sign: negative Calf tenderness: negative Baby A: Baby A FHR category: category 1 Diagnosis, Assessment Plan Diagnosis, Assessment Plan Assessment: threatened labor, PPROM rule d out by MFM but she reports severe pelvic pain and pressure not relived by moises poole Plan: She is in severe pain and feels pressure. Fetus in breech presentation with dialted servix and memberanes in the cervix . she lives 2 hours away from the hospital. Will continue curent inhouse management and pain control till pain improves or risk of cord prolapse and delivery o f extreme preamature outside hospital decreases at 1802 RPT #:[id number] END OF REPORT 2022-09-13 09:03:00-00:00 [facility] ([facility]) M Progress Note REPORT#:[id number] REPORT STATUS: Signed DATE:09/13/22 TIME: 902 PATIENT: LUIS EDMONDS UNIT #: [id number] ROOM/BED: [place] [id number] : 02 AGE: 21 SEX: F ATTEND: Fabio Burciaga MD ADM AUTHOR: Khalil Moore MD * ALL edits or amendments must be made on the [employer]/computer document * Objective General VS/I O: Last Documented: Result Date Time B/P Mean 71.0 09/13 0759 B/P 100/53 09/13 0759 Pulse 74 09/13 0759 Pulse Ox 98 09/13 0234 Temp 36.8 09/12 2335 Resp 18 09/12 2335 PATIENT WEIGHT: Weight (lb): 172 Weight (oz): 6.42 Weight (kg): 78.200 Medications: Active Meds + DC'd Last 24 Hrs Amoxicillin (AMOXIL) 500 MG Q8H PO Ferrous Sulfate (FERROUS SULFATE) 650 MG DAILY P O (CKD) Docusate Sodium (COLACE) 100 MG BID PO Vit/Iron/Folic Ac/DSS/DHA (/FE/ FA/OM3/DHA/EPA) 1 CAP DAILY PO Acetaminophen (TYLENOL) 650 MG Q4H PRN PRN PO Al Hydrox/Mg Hydrox/Simethicone (MYLANTA) 30 ML TID PRN PRN PO Calcium Gluconate/Sodium Chloride (Calcium Gluco marciano 1 GM/NS 50 mL) 50 ML ONCE PRN IV Guaifenesin (ROBITUSSIN) 200 MG Q4H PRN PRN PO Hydrocodone Bitart/Acetaminophen (NORCO 5/325) 1 TAB Q4H PRN PRN PO (DC) Lactated Ringer's (LACTATED RINGERS) 1,000 ML .Q 8H IV (DC) Magnesium Hydroxide (MILK OF MAGNESIA) 30 ML TID PRN PRN PO Ondansetron HCl (ZOFRAN ODT) 8 MG Q4H PRN PRN PO Ondansetron HCl (ZOFRAN) 8 MG Q4H PRN PRN IV Promethazine HCl (PROMETHAZINE HCL) 12.5 MG Q6H PRN PRN PO Simethicone (MYLANTA GAS) 160 MG Q2H PRN PRN PO Sodium Chloride (SODIUM CHLORIDE) 10 ML ASDIR IV Diagnosis, Assessment Plan Diagnosis, Assessment Plan Free Text A P: MFM Progress Note Luis was seen and evaluated again No reports of LOF, yest's report was only during urination, not spontaneously or intermittently . Denies CTX or VB Reports good FM Reports lower abd pain and diffuse back pain AFVSS Well in NAD abd soft NT (when distracted), ND Gravid no CVAT when distracted Neuro non focal, conversant Ext tr edema FHT: 140, mod variability, + accels, , no CTX, c at 1 Sono today: BREECH , ant. pl acenta, nl range ISMA 15.1, nl BPP 8/8, nl umb. art. and MCA Dopplers. A/P 21yo G1 at 30w2d (EDC 11/20/2022) - PPROM again reviewed this dx and implications - Clinically she does not appear to be ROM'd with a stable ISMA and long and closed cerv ix by US and a repeat ROM+ negative. Would consider outpt surveillance. s/p mag and steroids Questions again discussed -Low Abd pain/back pain: appears to be related. No evidence for intraabd pathology or retroperitoneal path. No c tx noted and had normal WBC/ urine. - Short Interval will cont. to follow - Hx of PIH no evidence of PIH at present will monitor -BREECH lie discussed this finding and implications discussd cord prolapse precautions understands CS delivery indicated if remains non vertex will follow - Anemia on PO Fe Thank you for sharing in the care of your patien t! Will cont. to follow with you closely Floor time 35min at 0911 [facility] #:[id number] END OF REPORT 2022-09-12 08:28:00-00:00 [facility] ([facility]) MFM Progress Note REPORT#:[id number] REPORT STATUS: Signed DATE:09/12/22 TIME: 827 PATIENT: LUIS EDMONDS UNIT #: [id number] ROOM/BED: [place] [phone] : 02 AGE: 21 SEX: F ATTEND: Fabio Burciaga MD ADM AUTHOR: Kahlil Moore MD * ALL edits or amendments must be made on the el [employer]/computer document * Objective General VS/I O: Last Documented: Result Date Time B/P Mean 71.0 09/12 0740 B/P 100/50 09/12 0740 Pulse 74 09/12 0740 Pulse Ox 99 09/11 234 Temp 36.6 09/11 2341 Resp 16 09/11 2341 PATIENT WEIGHT: Weight (lb): 172 Weight (oz): 6.42 Weight (kg): 78.200 Medications: Active Meds + DC'd Last 24 Hrs Amoxicillin (AMOXIL) 500 MG Q8H PO Ferrous Sulfate (FERROUS SULFATE) 650 MG DAILY P O (CKD) Docusate Sodium (COLACE) 100 MG BID PO Vit/Iron/Folic Ac/DSS/DHA (/FE/ FA/OM3/DHA/EPA) 1 CAP DAILY PO Acetaminophen (TYLENOL) 650 MG Q4H PRN PRN PO Al Hydrox/Mg Hydrox/Simethicone (MYLANTA) 30 ML TID PRN PRN PO Calcium Gluconate/Sodium Chloride (Calcium Gluco marciano 1 GM/NS 50 mL) 50 ML ONCE PRN IV Guaifenesin (ROBITUSSIN) 200 MG Q4H PRN PRN PO Hydrocodone Bitart/Acetaminophen (NORCO 5/325) 1 TAB Q4H PRN PRN PO Lactated Ringer's (LACTATED RINGERS) 1,000 ML .Q 8H IV Magnesium Hydroxide (MILK OF MAGNESIA) 30 ML TID PRN PRN PO Ondansetron HCl (ZOFRAN ODT) 8 MG Q4H PRN PRN PO Ondansetron HCl (ZOFRAN) 8 MG Q4H PRN PRN IV Promethazine HCl (PROMETHAZINE HCL) 12.5 MG Q6H PRN PRN PO Simethicone (MYLANTA GAS) 160 MG Q2H PRN PRN PO Sodium Chloride (SODIUM CHLORIDE) 10 ML ASDIR IV Zolpidem Tartrate (AMBIEN) 5 MG BEDTIME PRN PRN PO (DC) Diagnosis, Assessment Plan Diagnosis, Assessment Plan Free Text A P: MFM Progress Note Luis was seen and evaluated again Continues with LOF of clear fluid Denies CTX or VB Reports good FM AFVSS abd soft NT, ND Gravid no CVAT Neuro non focal, conversant Ext tr edema FHT: 130, mod variability, + accels, occ asional mild variables, no CTX, cat II Sono today: TRV back up and head to maternal Right , ant. placenta, nl range ISMA 16, nl BPP 8/8, nl umb. art. and MCA Dopplers. C x long and closed - no funneling. A/P 21yo G1 at 30w1d (EDC 11/20/2022) - PPROM again reviewed this dx and implications - Clinically she does not appear to be ROM'd with a stable ISMA and long and closed cerv ix by US. I would consider a repeat ROM+. Otherwise, aware of rationale for e xp. mgmt. and R/B/A, includng small but significant risk of stillbirth understands delivery may be indicated anytime for labor / infection / NRFHT - or generally by 34w recommended - discussed in some cases (and especially given the normal ISMA), consideration can be given to go be yond 34w if desired s/p mag and steroids If repeat ROM+ neg - d/c maybe considered. Questions again discussed - Short Interval will cont. to follow - Hx of PIH no evidence of PIH at present will monitor - Trv lie discussed this finding and implications discussd cord prolapse precautions understands CS delivery indicated if remains non vertex will follow - Anemia on PO Fe Thank you for sharing in the care of your patien t! Will cont. to follow with you closely Floor time 35min at 0834 RPT #:[id number] END OF REPORT 2022-09-12 01:41:00-00:00 [facility] ([facility]) OB Antepartum Prog Note REPORT#:[id number] REPORT STATUS: Signed DATE:09/12/22 TIME: 0141 PATIENT: LUIS EDMONDS UNIT #: [id number] ROOM/BED: [place] [address] : 02 AGE: 21 SEX: F ATTEND: Fabio Burciaga MD ADM AUTHOR: Luis Burciaga MD * ALL edits or amendments must be made on the [employer]/computer document * Subjective Subjective Current EGA: Current EGA(wks): 30 Current EGA(days): 1 Patient reports: Patient reports: Yes: leaking fluid, normal movement. No: complaints, abdominal pain, vaginal bleeding, contractions, headache, blurre d vision, scotomata, fever, chills. Objective Nursing Documentation Review Nursing data: The data set between the solid lines has been im ported from nursing documentation. Any exceptions have been noted be low under Provider comments. ROM date: 09/07/22 ROM time: 1730 Labor onset date: Labor onset time: Provider comments on imported nursing data: [] VS: Last Documented: Result Date Time B/P Mean 78.0 09/11 234 Pulse Ox 99 09/11 2340 B/P 116/56 09/11 2340 Temp 36.6 09/11 234 Pulse 127 09/11 2341 Resp 16 09/11 2341 Vital Signs Date Temp Pulse Resp B/P B/P Mean Pulse Ox FiO 2 09/11 36.6-36.9 80-127 16-20 106-122/51-69 74.0 -86.0 99 PATIENT WEIGHT: Weight (lb): 172 Weight (oz): 6.42 Weight (kg): 78.200 Membranes: PPROM ROM date: 09/07/22 Amniotic fluid: clear HEENT: normocephalic w/o injury Cardiac: regular rate and rhythm Lungs: unlabored breathing Abdomen: gravid, soft, no abnormal tenderness, n o guarding, no rebound tenderness Lower extremities: Edema: none Colleen's sign: negative Calf tenderness: negative Baby A: Baby A FHR category: category 1 Diagnosis, Assessment Plan Diagnosis, Assessment Plan Assessment: PPROM Plan: continue current managmnt at 0142 RPT #:[id number] END OF REPORT 2022-09-11 22:15:00-00:00 [facility] ([facility]) OB Antepartum Prog Note REPORT#:[id number] REPORT STATUS: Signed DATE:09/11/22 TIME: 2214 PATIENT: LUIS EDMONDS UNIT #: [id number] ROOM/BED: [place] [address] : 02 AGE: 21 SEX: F ATTEND: Fabio Burciaga MD ADM AUTHOR: Luis Burciaga MD * ALL edits or amendments must be made on the el [employer]/computer document * Subjective Subjective Current EGA: Current EGA(wks): 30 Current EGA(days): 0 Patient reports: Patient reports: Yes: complaints, abdominal pain, vaginal bleedi ng, leaking fluid, contractions, normal movement, decreased f etal movement, no movement. Objective Nursing Documentation Review Nursing data: The data set between the solid lines has been im ported from nursing documentation. Any exceptions have been noted be low under Provider comments. ROM date: 09/07/22 ROM time: 1730 Labor onset date: Labor onset time: Provider comments on imported nursing data: [] VS: Last Documented: Result Date Time B/P Mean 83.0 09/11 1908 Pulse Ox 99 09/11 1908 B/P 115/62 09/11 1908 Temp 36.7 09/11 1908 Pulse 93 09/11 1908 Resp 16 09/11 1908 Vital Signs Date Temp Pulse Resp B/P B/P Mean Pulse Ox FiO2 09/11 36.7-36.9 80-112 16-20 106-122/51-69 74.0 -86.0 99 PATIENT WEIGHT: Weight (lb): 172 Weight (oz): 6.42 Weight (kg): 78.200 Membranes: PPROM ROM date: 09/07/22 Amniotic fluid: clear HEENT: normocephalic w/o injury Cardiac: regular rate and rhythm Lungs: unlabored breathing Abdomen: gravid, soft, no abnormal tenderness, n o guarding, no rebound tenderness Lower extremities: Edema: none Colleen's sign: negative Calf tenderness: negative Baby A: Baby A FHR category: category 1 Diagnosis, Assessment Plan Diagnosis, Assessment Plan Assessment: PPROM Plan: continue current managmnt at 2218 RPT #:[id number] END OF REPORT 2022-09-11 07:18:00-00:00 [facility] ([facility]) [facility] Progress Note REPORT#:[id number] REPORT STATUS: Signed DATE:09/11/22 TIME: 717 PATIENT: LUIS EDMONDS UNIT #: [id number] ROOM/BED: [place] [address] : 02 AGE: 21 SEX: F ATTEND: Fabio Burciaga MD ADM AUTHOR: Kahlil Moore MD * ALL edits or amendments must be made on the el [employer]/computer document * Review of Systems All systems rev neg: except as marked Objective General VS/I O: Last Documented: Result Date Time B/P Mean 86.0 09/11 0556 B/P 122/69 09/11 0556 Pulse 82 09/11 0556 Pulse Ox 97 09/10 0604 Temp 36.8 09/10 0604 Resp 16 09/10 0604 PATIENT WEIGHT: Weight (lb): 172 Weight (oz): 6.42 Weight (kg): 78.200 Medications: Active Meds + DC'd Last 24 Hrs Amoxicillin (AMOXIL) 500 MG Q8H PO Ferrous Sulfate (FERROUS SULFATE) 650 MG DAILY P O (CKD) Docusate Sodium (COLACE) 100 MG BID PO Vit/Iron/Folic Ac/DSS/DHA (/FE/ FA/OM3/DHA/EPA) 1 CAP DAILY PO Magnesium Sulfate (MAGNESIUM SULFATE 20GM/SWFI 5 00ML) 500 ML Q10H IV (DC ) Acetaminophen (TYLENOL) 650 MG Q4H PRN PRN PO Al Hydrox/Mg Hydrox/Simethicone (MYLANTA) 30 ML TID PRN PRN PO Calcium Gluconate/Sodium Chloride (Calcium Gluco marciano 1 GM/NS 50 mL) 50 ML ONCE PRN IV Guaifenesin (ROBITUSSIN) 200 MG Q4H PRN PRN PO Hydrocodone Bitart/Acetaminophen (NORCO 5/325) 1 TAB Q4H PRN PRN PO Lactated Ringer's (LACTATED RINGERS) 1,000 ML .Q 8H IV Magnesium Hydroxide (MILK OF MAGNESIA) 30 ML TID PRN PRN PO Ondansetron HCl (ZOFRAN ODT) 8 MG Q4H PRN PRN PO Ondansetron HCl (ZOFRAN) 8 MG Q4H PRN PRN IV Promethazine HCl (PROMETHAZINE HCL) 12.5 MG Q6H PRN PRN PO Simethicone (MYLANTA GAS) 160 MG Q2H PRN PRN PO Sodium Chloride (SODIUM CHLORIDE) 10 ML ASDIR IV Zolpidem Tartrate (AMBIEN) 5 MG BEDTIME PRN PRN PO Results Findings/Data: Laboratory Tests 09/10 2044 Urines Urine Color (YEL/STRAW) YELLOW Urine Appearance (CLEAR) SL CLOUDY Urine pH (5.0 - 7.0) 6.0 Ur Specific [place] (1.005 - 1.030) 1.019 Urine Protein (NEGATIVE) NEGATIVE Urine Glucose (UA) (NEGATIVE) NEGATIVE Urine Ketones (NEGATIVE) NEGATIVE Urine Blood (NEGATIVE) NEGATIVE Urine Nitrite (NEGATIVE) NEGATIVE Urine Bilirubin (NEGATIVE) NEGATIVE Urine Urobilinogen (0.2 - 1.0 mg/dL) 2.0 H Ur Leukocyte Esterase (NEGATIVE) TRACE H Urine RBC (0 - 3 RBC/HPF) 0-3 Urine WBC (0 - 3 WBC/HPF) 10-20 H Ur Squamous Epith Cells (NONE SEEN /HPF) 11-25 H Urine Bacteria (NONE SEEN /HPF) TRACE Urine Mucus (NONE SEEN /LPF) TRACE Diagnosis, Assessment Plan Diagnosis, Assessment Plan Free Text A P: MFM Progress Note Luis was seen and evaluated No complaints Continues with LOF of clear fluid Denies CTX or VB Reports good FM AFVSS abd soft NT, ND Gravid no CVAT Neuro non focal, conversant Ext tr edema FHT: 140, mod variability, + accels, occ asional mild variables, no CTX, cat II Sono today: BREECH, ant. christopher centa, nl range ISMA 12, nl BPP 8/8, nl umb. art. and MCA Dopplers A/P 21yo G1 at 30w0d (EDC 11/20/2022) - PPROM again reviewed this dx and implications aware of rationale for exp. mgmt. and R/B/A, includng small but significant risk of stillbirth understands delivery may be indicated anytime for labor / infection / NRFHT - or generally by 34w recommended - discussed in some cases (and especially given the normal ISMA), consideration can be given to go be yond 34w if desired s/p mag and steroids Questions again discussed - Short Interval will cont. to follow - Hx of PIH no evidence of PIH at present will monitor - Breech lie discussed this finding and implications discussd cord prolapse precautions understands CS delivery indicated if remains non vertex will follow - Anemia on PO Fe Thank you for sharing in the care of your patien t! Will cont. to follow with you closely Floor time 35min at 0724 RPT #:[id number] END OF REPORT 2022-09-10 13:12:00-00:00 [facility] REPORT#:[id number] REPORT STATUS: Signed DATE:09/10/22 TIME: 1312 PATIENT: LUIS EDMONDS UNIT #: [id number] ROOM/BED: [place] [address] : 02 AGE: 21 SEX: F ATTEND: Fabio Burciaga MD ADM AUTHOR: Daniel Witt MD * ALL edits or amendments must be made on the el ectronic/computer document * Objective Objective General appearance: alert Results Findings/Data: MFM Progress Note Luis was seen and evaluated Feeling well today Denies issues Continues with LOF of clear fluid Denies CTX or VB Reports good FM VSSAF abd soft NT no CVAT 1+ PE, 1+ DTR no Colleen's FHT: 130s, mod BTBV, + accels, occasional mild v ariables, no CTX, cat II Sono today: TRANSVERSE back down head to mat R, ant. placenta, nl range ISMA 15.9 , nl BPP 8/8, nl umb. art. and MCA Dopplers A/P 21yo G1 at 29w6d (EDC 11/20/2022) - PPROM again reviewed this dx and implications awre of rationale for exp. m gmt. and R/B/A, includng small but significant risk of stillbirth understands delivery may be indicated anytime for labor / infection / NRFHT - or generally by 34w recommended - discussed in some cases consideration can be given to go beyond 34w if desired receiving mag sulfate and BMZ series Questions again discussed - Short Interval will cont. to follow - Hx of PIH in Prior per report today no evidence of PIH at present will monitor - Transverse lie discussed this finding and implications discussd cord prolapse precautions understands CS delivery indicated if remains non vertex will follow - Anemia on PO Fe Thank you for sharing in the care of your patien t! Will cont. to follow with you closely Floor time 35min Electronically Signed by Daniel Witt MD on at 1325 RPT #:[id number] END OF REPORT 2022-09-10 08:19:00-00:00 [facility] ([facility]) OB Antepartum Prog Note REPORT#:[id number] REPORT STATUS: Signed DATE:09/10/22 TIME: 08 PATIENT: LUIS EDMONDS UNIT #: [id number] ROOM/BED: [place] [address] : 02 AGE: 21 SEX: F ATTEND: Fabio Burciaga MD ADM AUTHOR: Luis Burciaga MD * ALL edits or amendments must be made on the el [employer]/computer document * Subjective Subjective Current EGA: Current EGA(wks): 29 Current EGA(days): 6 Patient reports: Patient reports: Yes: normal movement. No: complaints, abd ominal pain, vaginal bleeding , leaking fluid, contractions. Objective Nursing Documentation Review Nursing data: The data set between the solid lines has been im ported from nursing documentation. Any exceptions have been noted be low under Provider comments. ROM date: 09/07/22 ROM time: 1730 Labor onset date: Labor onset time: Provider comments on imported nursing data: [] VS: Last Documented: Result Date Time B/P Mean 79.0 09/10 0754 B/P 109/57 09/10 0754 Pulse 97 09/10 0754 Pulse Ox 97 09/10 0604 Temp 36.8 09/10 0604 Resp 16 09/10 0604 Vital Signs Date Temp Pulse Resp B/P B/P Mean Pulse Ox FiO2 09/09-09/10 36.4-36.8 71-97 16 98-112/54-66 73. 0-81.0 96-100 PATIENT WEIGHT: Weight (lb): 172 Weight (oz): 6.42 Weight (kg): 78.200 Membranes: PPROM ROM date: 09/07/22 Amniotic fluid: clear HEENT: normocephalic w/o injury Cardiac: regular rate and rhythm Lungs: unlabored breathing Abdomen: gravid, soft, no abnormal tenderness, n o guarding, no rebound tenderness Lower extremities: Edema: none Colleen's sign: negative Calf tenderness: negative Baby A: Baby A FHR category: category 1 Diagnosis, Assessment Plan Diagnosis, Assessment Plan Assessment: PPROM Plan: continue current managmnt at 0820 RPT #:[id number] END OF REPORT 2022-09-09 12:03:00-00:00 [facility] ([facility]) OB Admission / H P REPORT#:[id number] REPORT STATUS: Signed DATE:09/09/22 TIME: 1203 PATIENT: LUIS EDMONDS UNIT #: [id number] ROOM/BED: [place] [address] : 02 AGE: 21 SEX: F ATTEND: Anand Burciaga MD ADM AUTHOR: Juany Carrillo MD * ALL edits or amendments must be made on the el [employer]/computer document * OB History Notes: [facility] ([facility]) OLGA Evaluation Note REPORT#:[id number] REPORT STATUS: Signed DATE:09/07/22 TIME: 2242 PATIENT: LUIS EDMONDS UNIT #: [id number] ROOM/BED: [place] [address] : 02 AGE: 21 SEX: F ATTEND: Fabio Burciaga MD ADM AUTHOR: Juany Carrillo MD * ALL edits or amendments must be made on the [employer] document * History and Physical Chief complaint: suspected ruptured memb HPI: 21 y/o female at 29- 3/7 weeks who presents after several gushes of clear fluid from the vagina. Patient is certain that s he did not leak urine. Patient denies any vaginal bleeding or contracti ons. She reports good movement. PNC with Dr. Burciaga which has been uncomplicate d to date history: : 2 Term: 1 : 0 Abortus: 0 Living children: 1 Comments: 2020 Current : EDC: 11/20/22 EGA (weeks/days): 29-3/7 weeks Conditions of : pre-term PROM Past medical history: denies PMH Past surgical history: tonsils/adenoids Social history: no alcohol use, no tobacco use, no drug use Family history FATHER Family History: Heart disease MOTHER Family History: Cancer MOTHER Relation not specified for: Family History: Diabetes FH: multiple sclerosis Allergies Uncoded Allergies: MARCUS ACID- THROAT SWELLING (Severe, 08/03/22) Review of Systems All systems rev neg: except as marked Objective General VS: Last Documented: Result Date Time Pulse Ox 99 09/07 2140 Pulse 86 09/07 2140 B/P Mean 84.0 09/07 2130 B/P 120/60 09/07 2130 Vital Signs Date Temp Pulse Resp B/P B/P Mean Pulse Ox FiO2 09/07 86-96 120/60 84.0 98-99 PATIENT WEIGHT: Weight (lb): 172 Weight (oz): 6.42 Weight (kg): 78.200 Physical Exam HEENT: normocephalic w/o injury Lungs: unlabored breathing Breasts: deferred Neuro: Exam: alert, oriented x3, normal speech Abdomen: gravid, soft, no abnormal tenderness, n o guarding Musculoskeletal: painless range of motion Genitourinary: no flank pain Uterine activity: Monitor: toco Frequency (description): none Pelvic exam: Pelvis clinically adequate: yes Vulvar lesions: none Vagina: normal Sterile speculum exam: visually closed, physiol ogical discharge, no pooling, no bleeding Cervical/ exam: Dilatation (cm): 0 - closed Effacement (%): 0 station: - 3 FHR evaluation: Baseline: 150 bpm Variability: minimal < or = 5 bpm Accelerations: absent Decelerations: few mild variables of prematurit y FHR category: tracing overall reassuring for EGA Membranes: Membranes: status undetermined Lower extremities: Edema: none Colleen's sign: negative Calf tenderness: negative Results Findings/Data: Laboratory Tests: 09/07 Other Body Source Membrane Rupture (NEGATIVE) POSITIVE H Urines Urine Color (YEL/STRAW) STRAW Urine Appearance (CLEAR) CLEAR Urine pH (5.0 - 7.0) 7.0 Ur Specific [place] (1.005 - 1.030) 1.006 Urine Protein (NEGATIVE) NEGATIVE Urine Glucose (UA) (NEGATIVE) NEGATIVE Urine Ketones (NEGATIVE) NEGATIVE Urine Blood (NEGATIVE) NEGATIVE Urine Nitrite (NEGATIVE) NEGATIVE Urine Bilirubin (NEGATIVE) NEGATIVE Urine Urobilinogen (0.2 - 1.0 mg/dL) 0.2 Ur Leukocyte Esterase (NEGATIVE) NEGATIVE Urine RBC (0 - 3 RBC/HPF) 0-3 Urine WBC (0 - 3 WBC/HPF) 0-3 Ur Squamous Epith Cells (NONE SEEN /HPF) 6-10 H Urine Bacteria (NONE SEEN /HPF) TRACE Urine Mucus (NONE SEEN /LPF) TRACE Diagnosis, Assessment Plan Diagnosis, Assessment Plan Problem List/A P: 1. 29 weeks gestation of 2. premature rupture of membranes (PPRO M) delivered, current hospitalization Free Text A P: 21 y/o female at 29-3/7 weeks who presen ts with PROM; ROM plus is positive. There is no evidence of active labor. tracing is reassuring. Patient is managed by Dr. Junior valencia and the OB Hospitalist Service is covering his patients at this time. Plan: admit to inpatient, transfer to antepartum ; PPROM protocol; Continuous EFM; Consult MFM Plan discussed with: patient, parent Time spent: Time spent on patient care (minutes): 35 >50% spent on counseling/coordination of care: yes Electronically Signed by Juany Carrillo MD on 0 09/08/22 at 0549 RPT #:[id number] END OF REPORT Past History Allergies: Uncoded Allergies: MARCUS ACID- THROAT SWELLING (Severe, 08/03/22) Electronically Signed by Juany Carrillo MD on 0 09/09/22 at 1207 RPT #:[id number] END OF REPORT 2022-09-09 09:03:00-00:00 [facility] ([facility]) OB Antepartum Prog Note REPORT#:[id number] REPORT STATUS: Signed DATE:09/09/22 TIME: 902 PATIENT: LUIS EDMONDS UNIT #: [id number] ROOM/BED: [place] [address] : 02 AGE: 21 SEX: F ATTEND: Fabio Burciaga MD ADM AUTHOR: Luis Burciaga MD * ALL edits or amendments must be made on the el [employer]/computer document * Subjective Subjective Patient reports: Patient reports: No: complaints, abdominal pain, vaginal bleeding, leaking fluid, contractions , normal movement, dec reased movement, no movement, headache. Comments: Late entry note. Patient was seen on 09/08/22 a 4 :30 pm Objective Nursing Documentation Review Nursing data: The data set between the solid lines has been im ported from nursing documentation. Any exceptions have been noted be low under Provider comments. ROM date: 09/07/22 ROM time: 1730 Labor onset date: Labor onset time: Provider comments on imported nursing data: [] VS: Last Documented: Result Date Time B/P Mean 74.0 09/09 0124 B/P 98/56 09/09 0124 Pulse 86 09/09 0124 Pulse Ox 91 09/09 0056 Resp 16 09/08 2249 Temp 36.8 09/08 1949 Vital Signs Date Temp Pulse Resp B/P B/P Mean Pulse Ox FiO2 09/08-09/09 36.5-36.8 78-132 16-18 95-122/52-66 67.0-84.0 84-100 PATIENT WEIGHT: Weight (lb): 172 Weight (oz): 6.42 Weight (kg): 78.200 Membranes: PPROM ROM date: 09/07/22 Amniotic fluid: clear HEENT: normocephalic w/o injury Cardiac: regular rate and rhythm Lungs: unlabored breathing Abdomen: gravid, soft, no abnormal tenderness, n o guarding, no rebound tenderness Lower extremities: Edema: none Colleen's sign: negative Calf tenderness: negative Baby A: Baby A FHR category: category 1 Findings/data: Microbiology: Date/Time Procedure - Status Source Growth 09/08 1740 Group B Streptococcus Screen (KATEY) - RECD VAGINAL Diagnosis, Assessment Plan Diagnosis, Assessment Plan Assessment: PPROM Plan: continue current managmnt at 0906 RPT #:[id number] END OF REPORT 2022-09-09 08:58:00-00:00 [facility] ([facility]) OB Antepartum Prog Note REPORT#:[id number] REPORT STATUS: Signed DATE:09/09/22 TIME: 0858 PATIENT: LUIS EDMONDS UNIT #: [id number] ROOM/BED: [place] [address] : 02 AGE: 21 SEX: F ATTEND: Fabio Burciaga MD ADM AUTHOR: Luis Burciaga MD * ALL edits or amendments must be made on the [employer]/computer document * Subjective Subjective Patient reports: Patient reports: Yes: leaking fluid, normal movement. No: complaints, abdominal pain, vaginal bleeding, contractions, headache, blurre d vision, scotomata, fever, chills. Objective Nursing Documentation Review Nursing data: The data set between the solid lines has been im ported from nursing documentation. Any exceptions have been noted be low under Provider comments. ROM date: 09/07/22 ROM time: 1730 Labor onset date: Labor onset time: Provider comments on imported nursing data: [] VS: Last Documented: Result Date Time B/P Mean 74.0 09/09 0124 B/P 98/56 09/09 0124 Pulse 86 09/09 0124 Pulse Ox 91 09/09 0056 Resp 16 09/08 2249 Temp 36.8 09/08 1949 Vital Signs Date Temp Pulse Resp B/P B/P Mean Pulse Ox FiO2 09/08-09/09 36.5-36.8 78-132 16-18 95-122/52-66 67.0-84.0 84-100 PATIENT WEIGHT: Weight (lb): 172 Weight (oz): 6.42 Weight (kg): 78.200 Lungs: unlabored breathing Abdomen: gravid, soft, no abnormal tenderness, n o guarding, no rebound tenderness Lower extremities: Edema: none Colleen's sign: negative Calf tenderness: negative Findings/data: Microbiology: Date/Time Procedure - Status Source Growth 09/08 1740 Group B Streptococcus Screen (KATEY) - RECD VAGINAL Diagnosis, Assessment Plan Diagnosis, Assessment Plan Assessment: PPROM Plan: continue current managmnt at 0859 RPT #:[id number] END OF REPORT 2022-09-09 07:45:00-00:00 [facility] ([facility]) [facility] Progress Note REPORT#:[id number] REPORT STATUS: Signed DATE:09/09/22 TIME: 744 PATIENT: LUIS EDMONDS UNIT #: [id number] ROOM/BED: [place] [address] : 02 AGE: 21 SEX: F ATTEND: Fabio Burciaga MD ADM AUTHOR: Daniel Witt MD * ALL edits or amendments must be made on the el ectronic/computer document * Objective Objective General appearance: alert Results Findings/Data: [facility] Progress Note Luis was seen and evaluated Feeling well today Denies issues Continues with LOF of clear fluid Denies CTX or VB Reports good FM VSSAF abd soft NT no CVAT 1+ PE, 1+ DTR no Colleen's FHT: 120s, min to mod BTBV, + accels, occasional mild variables, no CTX, cat II labs reviewed A/P 21yo G1 at 29w5d (EDC 11/20/2022) - PPROM again discussed this dx and implications awre of rationale for exp. m gmt. and R/B/A, includng small but significant risk of stillbirth understands delivery may be indicated anytime for labor / infection / NRFHT - or generally by 34w recommended - discussed in some cases consideration can be given to go beyond 34w if desired receiving mag sulfate and BMZ series NICU consult recommended Questions discussed - Short Interval will cont. to follow - Hx of PIH in Prior per report today no evidence of PIH at present will monitor - Anemia will request PO Fe Thank you for sharing in the care of your patien t! Will cont. to follow with you closely Floor time 35min Electronically Signed by Daniel Witt MD on at 0748 RPT #:[id number] END OF REPORT 2022-09-08 17:21:00-00:00 [facility] ([facility]) MFM Consultation Note REPORT#:[id number] REPORT STATUS: Signed DATE:09/08/22 TIME: 1721 PATIENT: LUIS EDMONDS UNIT #: [id number] ROOM/BED: [place] [address] : 02 AGE: 21 SEX: F ATTEND: Fabio Burciaga MD ADM AUTHOR: Daniel Witt MD * ALL edits or amendments must be made on the [employer]/computer document * History Past History Past family history: FATHER Family History: Heart disease MOTHER Family History: Cancer MOTHER Relation not specified for: Family History: Diabetes FH: multiple sclerosis Allergies: Uncoded Allergies: MARCUS ACID- THROAT SWELLING (Severe, 08/03/22) Objective Physical Exam General appearance: alert Results Findings/Data: Laboratory Tests 09/08 0707 Chemistry Magnesium (1.80 - 2.40 mg/dL) 4.22 *H Laboratory Tests 09/07 2340 Hematology WBC (4.5 - 11.0 x10 3/uL) 10.4 RBC (3.54 - 5.02 x10 6/uL) 3.37 L Hgb (11.0 - 15.0 g/dL) 9.1 L Hct (33.0 - 45.0 %) 28.5 L MCV (81.0 - 99.0 fL) 84.6 MCH (27.0 - 33.0 pg) 27.0 MCHC (33.0 - 37.0 g/dL) 31.9 L RDW (11.5 - 14.5 %) 13.9 Plt Count (150 - 400 x10 3/uL) 300 MPV (7.0 - 9.0 fL) 10.7 H Neut % (Auto) (56.0 - 77.0 %) 59.2 Lymph % (Auto) (14.0 - 32.0 %) 31.0 [place] % (Auto) (4.8 - 9.0 %) 8.1 Eos % (Auto) (0.3 - 3.7 %) 0.8 Baso % (Auto) (0.0 - 2.0 %) 0.3 Neut # (Auto) (2.0 - 7.6 x10 3/uL) 6.16 Lymph # (Auto) (1.0 - 3.8 x10 3/uL) 3.22 [place] # (Auto) (0.1 - 0.8 x10 3/uL) 0.84 H Eos # (Auto) (0.0 - 0.2 x10 3/uL) 0.08 Baso # (Auto) (0.0 - 0.2 x10 3/uL) 0.03 Abs Immat Gran (auto) (0.00 - 0.03 x10 3/uL) 0. 06 H Add Manual Diff NO Immature Gran % (0.0 - 2.0 %) 0.6 Nucleated RBC % (0 - 0 %) 0.0 Nucleated RBCs # (Man) (0.0 - 0.1 x10 3/uL) 0.0 0 Laboratory Tests 09/07 2148 Other Body Source Membrane Rupture (NEGATIVE) POSITIVE H Laboratory Tests 09/07 2340 Serology RPR (NONREACTIVE) NONREACTIVE Hep Bs Antigen (NonReactive INDEX) NON REACTIVE HIV 1 2 Antibody Screen (Nonreactive) Nonreacti ve Laboratory Tests 09/07 2124 Urines Urine Color (YEL/STRAW) STRAW Urine Appearance (CLEAR) CLEAR Urine pH (5.0 - 7.0) 7.0 Ur Specific [place] (1.005 - 1.030) 1.006 Urine Protein (NEGATIVE) NEGATIVE Urine Glucose (UA) (NEGATIVE) NEGATIVE Urine Ketones (NEGATIVE) NEGATIVE Urine Blood (NEGATIVE) NEGATIVE Urine Nitrite (NEGATIVE) NEGATIVE Urine Bilirubin (NEGATIVE) NEGATIVE Urine Urobilinogen (0.2 - 1.0 mg/dL) 0.2 Ur Leukocyte Esterase (NEGATIVE) NEGATIVE Urine RBC (0 - 3 RBC/HPF) 0-3 Urine WBC (0 - 3 WBC/HPF) 0-3 Ur Squamous Epith Cells (NONE SEEN /HPF) 6-10 H Urine Bacteria (NONE SEEN /HPF) TRACE Urine Mucus (NONE SEEN /LPF) TRACE MFM Consultation Pt seen and evaluated Luis is a 21yo G1 at 29w4d (EDC 11/20/2022) ad mitted for PPROM yesterday She is feeling well currently Continues with LOF of clear fluid Denies CTX or VB Reports good FM PNC - significant for short interval, reports some episodes of low BPs , states she failed GCT but passed OGTT PMH - none PSH - none ObHx - at term, had elevated BPs at term SocHx - neg x3 NKDA Meds - PNV VSSAF abd soft NT no CVAT 1+ PE, 1+ DTR no Colleen's FHT: 120s, mod BTBV, + accels, rate mild variabl es, cat II labs reviewed Sono today: vtx, ant. placen ta, EFW 8ojq1vm (1574g, 68%ile), nl range ISMA 15.4, nl BPP 8/8, nl umb. art. Dopplers A/P 21yo G1 at 29w4d (EDC 11/20/2022) - PPROM reviewed this dx and implications discussed rationale for exp. mgmt. and R/B/A, in cludng small but significant risk of stillbirth discussed delivery may be indicated anyt louis for labor / infection / NRFHT - or generally by 34w recommended - discussed in some cases consideration can be given to go beyond 34w if desired receiving mag sulfate - would continue for up to 48w receiving BMZ series NICU consult recommended recommend to obtain GBS and GC/C swabs SCDs at bedtime recommended - may consider proph lyactic anticoagulation Questions reviewed in detail - Short Interval will cont. to follo - Hx of PIH in Prior per report today no evidence of PIH at present will monitor Thank you for sharing in the care of your patien t! Will cont. to follow with you closely Floor time 80min Electronically Signed by Daniel Witt MD on at 1731 RPT #:[id number] END OF REPORT 2022-09-07 22:44:00-00:00 [facility] ([facility]) OB Medical Screening Exam REPORT#:[id number] REPORT STATUS: Signed DATE:09/07/22 TIME: 2243 PATIENT: LUIS EDMONDS UNIT #: [id number] ROOM/BED: [place] [address] : 02 AGE: 21 SEX: F ATTEND: Fabio Burciaga MD ADM AUTHOR: Juany Carrillo MD * ALL edits or amendments must be made on the el [employer]/computer document * Medical Screening Exam Provider Attestation Attestation: The QMP MSE reviewed. Notified at 2135 Physician at bedside 2140 Comments: 21 y/o female at 29- 3/7 weeks who presents after several gushes of clear fluid from the vagina. Patient is certain that s he did not leak urine. Electronically Signed by Juany Carrillo MD on 0 09/08/22 at 0557 RPT #:[id number] END OF REPORT 2022-09-07 22:43:00-00:00 [facility] ([facility]) OGLA Evaluation Note REPORT#:[id number] REPORT STATUS: Signed DATE:09/07/22 TIME: 2242 PATIENT: LUIS EDMONDS UNIT #: [id number] ROOM/BED: [place] [address] : 02 AGE: 21 SEX: F ATTEND: Fabio Burciaga MD ADM AUTHOR: Juany Carrillo MD * ALL edits or amendments must be made on the [employer]/computer document * OLGA History Chief complaint: suspected ruptured memb HPI: 21 y/o female at 29- 3/7 weeks who presents after several gushes of clear fluid from the vagina. Patient is certain that s he did not leak urine. Patient denies any vaginal bleeding or contracti ons. She reports good movement. PNC with Dr. Burciaga which has been uncomplicate d to date history: : 2 Term: 1 : 0 Abortus: 0 Living children: 1 Comments: 2020 Current : EDC: 11/20/22 EGA (weeks/days): 29-3/7 weeks Conditions of : pre-term PROM Past medical history: denies PMH Past surgical history: tonsils/adenoids Social history: no alcohol use, no tobacco use, no drug use Family history FATHER Family History: Heart disease MOTHER Family History: Cancer MOTHER Relation not specified for: Family History: Diabetes FH: multiple sclerosis Allergies Uncoded Allergies: MARCUS ACID- THROAT SWELLING (Severe, 08/03/22) Review of Systems All systems rev neg: except as marked Objective General VS: Last Documented: Result Date Time Pulse Ox 99 09/07 2141 Pulse 86 09/07 2141 B/P Mean 84.0 09/07 2130 B/P 120/60 09/07 2130 Vital Signs Date Temp Pulse Resp B/P B/P Mean Pulse Ox FiO2 09/07 86-96 120/60 84.0 98-99 PATIENT WEIGHT: Weight (lb): 172 Weight (oz): 6.42 Weight (kg): 78.200 Physical Exam HEENT: normocephalic w/o injury Lungs: unlabored breathing Breasts: deferred Neuro: Exam: alert, oriented x3, normal speech Abdomen: gravid, soft, no abnormal tenderness, n o guarding Musculoskeletal: painless range of motion Genitourinary: no flank pain Uterine activity: Monitor: toco Frequency (description): none Pelvic exam: Pelvis clinically adequate: yes Vulvar lesions: none Vagina: normal Sterile speculum exam: visually closed, physiol ogical discharge, no pooling, no bleeding Cervical/ exam: Dilatation (cm): 0 - closed Effacement (%): 0 station: - 3 FHR evaluation: Baseline: 150 bpm Variability: minimal < or = 5 bpm Accelerations: absent Decelerations: few mild variables of prematurit y FHR category: tracing overall reassuring for EGA Membranes: Membranes: status undetermined Lower extremities: Edema: none Colleen's sign: negative Calf tenderness: negative Results Findings/Data: Laboratory Tests: 09/07 Other Body Source Membrane Rupture (NEGATIVE) POSITIVE H Urines Urine Color (YEL/STRAW) STRAW Urine Appearance (CLEAR) CLEAR Urine pH (5.0 - 7.0) 7.0 Ur Specific [place] (1.005 - 1.030) 1.006 Urine Protein (NEGATIVE) NEGATIVE Urine Glucose (UA) (NEGATIVE) NEGATIVE Urine Ketones (NEGATIVE) NEGATIVE Urine Blood (NEGATIVE) NEGATIVE Urine Nitrite (NEGATIVE) NEGATIVE Urine Bilirubin (NEGATIVE) NEGATIVE Urine Urobilinogen (0.2 - 1.0 mg/dL) 0.2 Ur Leukocyte Esterase (NEGATIVE) NEGATIVE Urine RBC (0 - 3 RBC/HPF) 0-3 Urine WBC (0 - 3 WBC/HPF) 0-3 Ur Squamous Epith Cells (NONE SEEN /HPF) 6-10 H Urine Bacteria (NONE SEEN /HPF) TRACE Urine Mucus (NONE SEEN /LPF) TRACE Diagnosis, Assessment Plan Diagnosis, Assessment Plan Problem List/A P: 1. 29 weeks gestation of 2. premature rupture of membranes (PPRO M) delivered, current hospitalization Free Text A P: 21 y/o female at 29-3/7 weeks who presen ts with PROM; ROM plus is positive. There is no evidence of active labor. tracing is reassuring. Patient is managed by Dr. Junior valencia and the OB Hospitalist Service is covering his patients at this time. Plan: admit to inpatient, transfer to antepartum ; PPROM protocol; Continuous EFM; Consult MFM Plan discussed with: patient, parent Time spent: Time spent on patient care (minutes): 35 >50% spent on counseling/coordination of care: yes Electronically Signed by Juany Carrillo MD on 0 09/08/22 at 0549 [facility] #:[id number] END OF REPORT 2022-08-06 11:00:00-00:00 [facility] ([facility]) OB Medical Screening Exam REPORT#:[id number] REPORT STATUS: Signed DATE:08/06/22 TIME: 1100 PATIENT: LUIS EDMONDS UNIT #: [id number] ROOM/BED: : 02 AGE: 21 SEX: F ATTEND: Effie Beavers MD ADM AUTHOR: Effie Solitario MD * ALL edits or amendments must be made on the [employer] document * Medical Screening Exam Provider Attestation Attestation: The QMP MSE reviewed. DATE 08/03/2019 Notified at 1523 Provider at bedside at 1523 Comments: 21 Y/O IUP 24 2/7 presents due to crampi ng. at 1101 RPT #:[id number] END OF REPORT 2022-08-06 11:00:00-00:00 [facility] ([facility]) OLGA Evaluation Note REPORT#:[id number] REPORT STATUS: Signed DATE:08/06/22 TIME: 1100 PATIENT: LUIS EDMONDS UNIT #: [id number] ROOM/BED: : 02 AGE: 21 SEX: F ATTEND: Effie Beavers MD ADM AUTHOR: Effie Solitario * ALL edits or amendments must be made on the [employer] document * OLGA History Chief complaint: cramping HPI: 21 Y/O IUP 24 2/7 presents due to crampi ng. She refers good movements and denies any gush of vaginal fluids, vaginal bleeding. Verbal consent obtained from patient to discuss history, lab results, treatment, plan and any other pertinent information in fron t of patient's companions. history: : 2 Term: 1 Living children: 1 Current : EDC: 11/20/22 EGA (weeks/days): 24 weeks Past medical history: denies PMH Past surgical history: tonsils/adenoids Social history: no alcohol use, no tobacco use, no drug use Family history FATHER Family History: Heart disease MOTHER Family History: Cancer MOTHER Relation not specified for: Family History: Diabetes FH: multiple sclerosis Medications: Allergies Uncoded Allergies: MARCUS ACID- THROAT SWELLING (Severe, 08/03/22) Review of Systems Additional notes: Constitutional: Denies: chills, fatigue, fever, generalized weak ness, lethargy, malaise. Respiratory: Denies: productive cough (sputum), SOB. GI: Denies: abdominal pain, constipation, diarrhea, nausea, vomiting. : Refers: cramping Denies: urgency, vaginal bleeding. 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 24 weeks gestation of Free Text A P: Initial exam 1523 Patient presents due to cramping, will send UA a nd FFN Re-evaluation 1652 UA and FFN negative 21 y/o IUP 24 2 presents due to crampi ng. FFN and UA negative. Patent found to be hemodynamically stable with n ormal vital signs, category I strip and found not to be in labor. [place] ed on discharge and labor precautions as well as kick counts and she voice d understanding will have her follow-up with her [employer]ER. Assessment: no evidence labor Impression: reactive NST Plan: discharge home Plan discussed with: patient, nurse at 1106 RPT #:[id number] END OF REPORT 2022-03-06 16:08:00-00:00 [facility] emergency provider report report#:[id number] report status: signed date:03/06/22 time: 1608 patient: luis edmonds unit #: [id number] room/bed: age: 21 sex: f pcp phys: emily artis md service dt: 03/06/22 author: dayna chavez md * all edits or amendments must be made on the el [employer]/computer document * hpi-ankle prob/inj free text hpi notes free text hpi notes 21-year-old female presents with right ankle and foot pain. patient reports while going down stairs that were wet from rain today she slipped and twisted her right ankle. denies trauma elsewhere. general initial greet date/time 03/06/22 1508 presentation chief complaint injury r review of systems focused review of systems musculoskeletal reports: extremity pain, extremity swelling. skin denies: laceration. past medical history - adult stated complaint r ankle injury allergies uncoded allergies: malic acid (severe, tongue swelling, throat clos ing 12/24/17) home medications active scripts ibuprofen (motrin) 600 mg po qid prn prn pain ibuprofen (motrin) 600 mg po qid prn prn pain # 30 tabs prov: 11/11/21 calculated suicide risk (nurs) no risk past medical history: reports: asthma. denies: diabetes mellitus, gerd /gastritis, hypertension, kidney disease/stones, seizure disorder. additional medical history chronic pinched nerve additional surgical history tonsilectomy smoking status for patients 13 years old or olde r: never smoker physical exam vital signs vital signs first documented: result date time pulse ox 99 03/06 1506 b/p 115/75 03/06 1506 b/p mean 88 03/06 1506 o2 delivery room air 03/06 1506 temp 36.6 03/06 1506 pulse 82 03/06 1506 resp 18 03/06 1506 last documented: result date time pulse ox 99 03/06 1506 b/p 115/75 03/06 1506 b/p mean 88 03/06 1506 o2 delivery room air 03/06 1506 temp 36.6 03/06 1506 pulse 82 03/06 1506 resp 18 03/06 1506 review of vital signs reviewed focused pe general/const general/const awake, alert, no acute distress ms ankle/foot text/dict note right ankle with tenderness laterally, mild swelling. foot with mild tenderness , no deformity. 2+ dp and pt pulses. sensation i ntact. ankle with full range of motion. skin skin color nl interpretation diagnostics lab results interpretation results recent impressions: radiology - xr foot 3 + v rt 03/06 1549 report impression - status: signed entered: 03/06/2022 1604 impression: no fractures or dislocation impression by: sherlyn pickering m.d. radiology - xr ankle 3 + v rt 03/06 1556 report impression - status: signed entered: 03/06/2022 1605 impression: no fracture or dislocation impression by: sherlyn pickering m.d. re-evaluation mdm free text mdm notes free text mdm notes 21-year-old female presents with right ankle/fredy t injury. x-rays without bony abnormalities. ankle bandaged with dorothy bandage. discharge home with pain control, pcp follow-up, ortho referral if needed for consideration of mri if pain persists. ed course medication(s) ordered medication(s) ordered: central nervous system agents sig/victoriano start time last medication dose route stop time status admin hydrocodone bitart/ 1 tab x1ed sta 03/06 1556 d c 03/06 acetaminophen po 03/06 1557 1607 acetaminophen 650 mg x1ed sta 03/06 1552 can po 03/06 1553 ibuprofen 800 mg x1ed sta 03/06 1552 dc 03/06 po 03/06 1553 1607 patient discharge departure vital signs/condition vital signs first documented: result date time pulse ox 99 03/06 1506 b/p 115/75 03/06 1506 b/p mean 88 03/06 1506 o2 delivery room air 03/06 1506 temp 36.6 03/06 1506 pulse 82 03/06 1506 resp 18 03/06 1506 last documented: result date time pulse ox 99 03/06 1506 b/p 115/75 03/06 1506 b/p mean 88 03/06 1506 o2 delivery room air 03/06 1506 temp 36.6 03/06 1506 pulse 82 03/06 1506 resp 18 03/06 1506 all vital signs available at the time of this en try have been reviewed. clinical impression clinical impression primary impression: ankle sprain secondary impressions: foot sprain disposition decision discharge )( discharged to home yes )( time 1609 )( date 03/06/22 discharge/care plan counseled regarding diagnosi s, imaging studies, prescriptions, need for follow- up, when to return to ed (auto) prescriptions current visit scripts diclofenac sodium (diclofenac sodium 3%) 1 gm to pical bid diclofenac sodium (diclofenac sodium 3%) 1 gm t opical bid #100 gm ibuprofen (motrin) 800 mg po tid prn prn pain ibuprofen (motrin) 800 mg po tid prn prn pain # 30 tabs dme - crutches (crutch set) each misc asdir dme - cr[facility] of [facility] patient instructions ed ankle sprain (adult), ed foot sprain, ed rice referrals provider referral: cheli gamino md follow-up: as needed notes: orthopedic surgeon address: [address] [place] [id number] provider group: primary care follow-up: 1 week departure forms marisol pcp list work/school excuse variable restrictions apply through 03/18/22 may return to work/school 03/09/22 any restrictions wear an ortho boot discharge note i have spoken with the patie nt and/or caregivers. i have explained the patient's condition, diagnoses and margot atment plan based on the information available to me at this time. i have answered the patient's and/ or caregiver's questions and addressed any concerns. the patient and/or careg jammie have as good an understanding of the patient 's diagnosis, condition and treatment plan as can be expected at this point. the vital signs have bee n stable. the patient's condition is stable and appr opriate for discharge from the emergency department. the patient will pursue further outpatient evalu ation with the primary care physician or other designated or consulting phys ician as outlined in the discharge instructions. the patient and/or caregivers are agreeable to this plan of care and follow-up instructions have been exp lained in detail. the patient and/or caregivers have received these instructio ns in written format and have expressed an understanding of the discharge inst ructions. the patient and/or caregivers are aware that any significant change in condition or worsening of symptoms should prompt an immediate return to [facility] or the closest emergency department or a call to 911. electronically signed by ghanshyam chavez md on 03/06/22 at 1747 rpt #:[id number] end of report 2021-11-11 00:46:00-00:00 [facility] EMERGENCY PROVIDER REPORT REPORT#:[id number] REPORT STATUS: Signed DATE:11/11/21 TIME: 45 PATIENT: LUIS EDMONDS UNIT #: [id number] ROOM/BED: AGE: 20 SEX: F PCP PHYS: Emily Artis MD SERVICE AUTHOR: Kishor Bishop DO * ALL edits or amendments must be made on the Vobile/computer document * HPI-Back Pain Under 40 Free Text HPI Notes Free Text HPI Notes 20 yo female with pmh of asthma and chronic back pain presents with c/o back pain x 4 days. Denies fever, chills, cough, uri symptmos. Denies urinary frequency, urgency or dysuria. Denies sick conta cts. General Initial Greet Date/Time 11/11/21 0023 Presentation Chief Complaint Pain, lumbar Hx Obtained From Patient )( Sudden in Onset? No Risk-Back Pain Under 40 Risk Stratification Epidural Hematoma No risk factors Epidural Abscess No risk factors Review of Systems ROS Statements All systems rev neg except as marked. Past Medical History - Adult Stated Complaint FLANK PAIN Allergies Uncoded Allergies: MALIC ACID (Severe, TONGUE SWELLING, THROAT CLOS ING 12/24/17) Home Medications Discontinued Scripts AMOXICILLIN/CLAV K (AUGMENTIN 875/125 MG) 875 MG PO Q12H 10 Days #20 TABS Prov: 08/08/21 DC: 11/11/21 0022 Therapy completed Discontinued Reported Medications PNV WITH FE FUMARATE/FA () 1 TAB PO OLAF Y Calculated Suicide Risk (nurs) No risk Past Medical History: Reports: Asthma. Denies: Diabetes mellitus, GERD /gastritis, Hypertension, Kidney disease/stones, Seizure disorder. Additional Medical History chronic pinched nerve Additional Surgical History tonsilectomy Smoking status: Smoking status for patients 13 years old or old er: Unknown,if ever smoked Physical Exam Vital Signs Vital Signs First Documented: Result Date Time Pulse Ox 98 11/11 0018 B/P 112/59 11/11 0018 B/P Mean 76 11/118 O2 Delivery Room air 11/11 17 Temp 36.4 11/11 001 Pulse 81 11/11 0018 Resp 18 11/11 17 Last Documented: Result Date Time Pulse Ox 100 11/11 0053 B/P 116/62 11/11 52 B/P Mean 80 11/11 52 O2 Delivery Room air 11/11 52 Temp 36.4 11/11 52 Pulse 76 11/11 52 Resp 11/11 Review of Vital Signs Reviewed Basic Physical Exam Basic PE HEAD: Atraumatic/NC, EYES: PERRL, conj clear, ENT: Membranes moist, NECK: Supple, RESP: No resp distress, CV: Reg ra te rhythm, ABD: Soft/non- tender, EXT: No gross abnorm ality, SKIN: No rashes, warm/dry, PSYCH: NL thought content Focused PE General/Const General/Const Awake, Alert, No acute distress MS Back Back Inspection NL, Full range of motion Flank/Spine/Paraspinal Thorac paraspinal tend, Lumbar paraspinal tend. Negative: Thoracic spine tender, Lumbar spine tender. Neurologic Neurologic Oriented X3, Speech NL, No motor def icits, No sensory deficits Interpretation Diagnostics Lab Results Interpretation Results Laboratory Tests: 11/11 0041 Urines POC Urine pH (5.0 - 7.0) 7 Ur Specific [place] (1.005 - 1.030) 1.010 POC Urine Protein (NEGATIVE) NEGATIVE POC Ur Glucose (UA) (NEGATIVE) NEGATIVE POC Urine Ketones (NEGATIVE) NEGATIVE POC Urine Blood (NEGATIVE) NEGATIVE POC Urine Nitrite (Negative) NEGATIVE Urine Bilirubin (NEGATIVE) NEGATIVE POC Urine Urobilinogen (0.2 - 1.0) NORMAL POC U Leukocyte Esteras (NEGATIVE) Negative Lab Statement Laboratory studies reviewed and considered in th e medical decision-making. Re-Evaluation MDM Re-Evaluation/Progress Re-Evaluation/Progress Text/Dict Note UA is negative for UTI. HCG was negative. Time of Re-Eval 0107 Re-Eval Status Improved Patient Discharge Departure Vital Signs/Condition Vital Signs First Documented: Result Date Time Pulse Ox 98 11/11 17 B/P 112/59 11/11 0018 B/P Mean 76 11/11 17 O2 Delivery Room air 11/11 17 Temp 36.4 11/11 17 Pulse 81 11/118 Resp 18 11/11 17 Last Documented: Result Date Time Pulse Ox 100 11/11 52 B/P 116/62 11/11 52 B/P Mean 80 11/11 52 O2 Delivery Room air 11/11 52 Temp 36.4 11/11 52 Pulse 76 11/11 52 Resp 18 11/11 52 All vital signs available at the time of this en try have been reviewed. Condition Stable Clinical Impression Clinical Impression Primary Impression: Back pain Disposition Decision Discharge )( Discharged to Home Yes )( Time 0046 )( Date 11/11/21 Discharge/Care Plan Counseled Regarding Diagnosis, Lab resul ts, Prescriptions, Need for follow-up, When to return to ED (Auto) Prescriptions Current Visit Scripts IBUPROFEN (MOTRIN) 600 MG PO QID PRN PRN PAIN IBUPROFEN (MOTRIN) 600 MG PO QID PRN PRN PAIN # 30 TABS Patient Instructions ED Back Pain (Acute or Motor Vehicle Lecturer andie) Additional Instructions Return to the ER if symptoms worsen Departure Forms MARISOL PCP LIST Discharge Note I have spoken with the patie nt and/or caregivers. I have explained the patient's condition, diagnoses and margot atment plan based on the information available to me at this time. I have answered the patient's and/ or caregiver's questions and addressed any concerns. The patient and/or careg jammie have as good an understanding of the patient 's diagnosis, condition and treatment plan as can be expected at this point. The vital signs have bee n stable. The patient's condition is stable and appr opriate for discharge from the emergency department. The patient will pursue further outpatient evalu ation with the primary care physician or other designated or consulting phys ician as outlined in the discharge instructions. The patient and/or caregivers are agreeable to this plan of care and follow-up instructions have been exp lained in detail. The patient and/or caregivers have received these instructio ns in written format and have expressed an understanding of the discharge inst ructions. The patient and/or caregivers are aware that any significant change in condition or worsening of symptoms should prompt an immediate return to [facility] or the closest emergency department or a call to 911. Electronically Signed by Kishor Bishop DO on at 0107 RPT #:[id number] END OF REPORT 2021-08-08 22:23:00-00:00 [facility] ([facility]) EMERGENCY PROVIDER REPORT REPORT#:[id number] REPORT STATUS: Signed DATE:08/08/21 TIME: 2222 PATIENT: LUIS EDMONDS UNIT #: [id number] ROOM/BED: AGE: 20 SEX: F PCP PHYS: Emily Artis MD SERVICE AUTHOR: Aggie Chavez MD * ALL edits or amendments must be made on the Vobile/computer document * HPI-Recheck W/B/S General Initial Greet Date/Time 08/08/212208 Presentation Chief Complaint Bleeding from R breast Free Text HPI Notes Free Text HPI Notes 20-year-old female who is 4 months presents with bleeding from right breast. She reports she noticed blood in her laisha astmilk while pumping last night and today. She also reports pain in right breast. Denies skin changes. Denies blood dripping from nipple. Patient also reports subjective fever. Review of Systems Focused Review of Systems Constitutional Reports: Fever. Skin Denies: Erythema, Rash. Past Medical History - Adult Stated Complaint BLEEDING FROM R BREAST Allergies Uncoded Allergies: MALIC ACID (Severe, TONGUE SWELLING, THROAT CLOS ING 12/24/17) Home Medications Reported Medications PNV WITH FE FUMARATE/FA () 1 TAB PO OLAF Y Past Medical History: Reports: Asthma. Denies: Diabetes mellitus, GERD /gastritis, Hypertension, Kidney disease/stones, Seizure disorder. Additional Medical History chronic pinched nerve Additional Surgical History tonsilectomy Smoking status: Smoking status for patients 13 years old or old er: Never Smoker Physical Exam Vital Signs Vital Signs First Documented: Result Date Time Pulse Ox 98 08/08 2217 B/P 119/59 08/08 2217 B/P Mean 79 01/21 2218 O2 Delivery Room air 08/08 2217 Temp 37.9 08/08 2217 Pulse 99 08/08 2217 Resp 08/08 Last Documented: Result Date Time Pulse Ox 98 08/08 2217 B/P 119/59 08/08 2217 B/P Mean 79 08/08 2217 O2 Delivery Room air 08/08 2217 Temp 37.9 08/08 2217 Pulse 99 08/08 2217 Resp 08/08 Review of Vital Signs Reviewed Focused PE General/Const General/Const Awake, Alert, No acute distress, Well appearing, Not toxic appearing Skin Skin Color NL Additional PE Resp/Chest Text/Dict Notes R breast with increased warmth, w/o skin changes . Breast Tenderness R. Negative: Dimpling R, Discolorati on R, Erythema R, Fluctuance R, Mass R, Nipple discharge R, Skin changes L. Re-Evaluation MDM Free Text MDM Notes Free Text MDM Notes 20-year-old female presents with blood in breast milk from right breast. Exam with increased warmth of right breast. No eviden ce of abscess. Suspect mastitis. Discharged home with antibiotics and c lose OB follow-up. Return precautions provided. ED Course Medication(s) Ordered Medication(s) Ordered: Central Nervous System Agents Sig/Victoriano Start time Last Medication Dose Route Stop Time Status Admin Acetaminophen 650 MG X1ED STA 08/08 2208 DC PO 08/08 Patient Discharge Departure Vital Signs/Condition Vital Signs First Documented: Result Date Time Pulse Ox 98 08/08 2217 B/P 119/59 08/08 2217 B/P Mean 79 08/08 2217 O2 Delivery Room air 08/08 2217 Temp 37.9 08/08 2217 Pulse 99 08/08 2217 Resp 08/08 Last Documented: Result Date Time Pulse Ox 98 08/08 2217 B/P 119/59 08/08 2217 B/P Mean 79 08/08 2217 O2 Delivery Room air 08/08 2217 Temp 37.9 08/08 2217 Pulse 99 08/08 2217 Resp 08/08 All vital signs available at the time of this en try have been reviewed. Clinical Impression Clinical Impression Primary Impression: Mastitis, right, acute Disposition Decision Discharge )( Discharged to Home Yes )( Time 2224 )( Date 08/08/21 Discharge/Care Plan Counseled Regarding Diagnosi s, Prescriptions, Need for follow-up, When to return to ED (Auto) Prescriptions Current Visit Scripts AMOXICILLIN/CLAV K (AUGMENTIN 875/125 MG) 875 MG PO Q12H 10 Days #20 TABS Patient Instructions ED Mastitis Referrals PRIMARY CARE: 2-3 Days Follow up with your OB in 3 days. Discharge Note I have spoken with the patie nt and/or caregivers. I have explained the patient's condition, diagnoses and margot atment plan based on the information available to me at this time. I have answered the patient's and/ or caregiver's questions and addressed any concerns. The patient and/or careg jammie have as good an understanding of the patient 's diagnosis, condition and treatment plan as can be expected at this point. The vital signs have bee n stable. The patient's condition is stable and appr opriate for discharge from the emergency department. The patient will pursue further outpatient evalu ation with the primary care physician or other designated or consulting phys ician as outlined in the discharge instructions. The patient and/or caregivers are agreeable to this plan of care and follow-up instructions have been exp lained in detail. The patient and/or caregivers have received these instructio ns in written format and have expressed an understanding of the discharge inst ructions. The patient and/or caregivers are aware that any significant change in condition or worsening of symptoms should prompt an immediate return to [facility] or the closest emergency department or a call to 911. at [facility] RPT #:[id number] END OF REPORT 2021-03-28 09:04:00-00:00 [facility] ([facility]) OB Disch REPORT#:[id number] REPORT STATUS: Signed DATE:03/28/21 TIME: 903 PATIENT: LUIS EDMONDS UNIT #: [id number] ROOM/BED: [place] [id number] : 02 AGE: 20 SEX: F ATTEND: Fabio Burciaga MD ADM AUTHOR: Luis Burciaga MD * ALL edits or amendments must be made on the el [employer]/computer document * Subjective Subjective Admission EGA: Weeks: 37 Days: 3 EGA at delivery (wks/days): 37 weeks (3d) Discharge Summary General Assessment: nml progress Hospital course: induction of labor, spontaneous vag delivery, nml postop/ postpart care Discharge condition: stable Discharge to: Home/Self Care Discharge diagnosis: full-term uncomp delivery Discharge management: less than 30 mins Baby A: Vaginal delivery: spontaneous status: live born Gender: male 1 minute: 8 5 minutes: 9 Nursing data: The data set between the solid lines has been im ported from nursing documentation. Any exceptions have been noted be low under Provider comments. Delivery date infant A: 03/26/21 Delivery time i nfant A: 1807 Birthweight (gm) infant A: 3200 Feeding preference: Gender A: Female 1 minute infant A: 8 5 minutes A: 9 10 minutes A: Provider comments on imported nursing data: [] Plan: routine care, discharge today Discharge Instructions Instructions: routine instr sheet given Diet: Resume Home Diet/Feeds Activity: Resume Normal Activity Additional discharge routines: None at 0905 [facility] #:[id number] END OF REPORT 2021-03-28 09:03:00-00:00 [facility] ([facility]) OB Postpart Progr Note REPORT#:[id number] REPORT STATUS: Signed DATE:03/28/21 TIME: 902 PATIENT: LUIS EDMONDS UNIT #: [id number] ROOM/BED: [place] [id number] : 02 AGE: 20 SEX: F ATTEND: Fabio Burciaga MD ADM AUTHOR: Luis Burciaga MD * ALL edits or amendments must be made on the V[employer]/computer document * Subjective Subjective Admission EGA: Weeks: 37 Days: 3 EGA at delivery (wks/days): 37 weeks (3d) Status/Day: post (d2) Patient reports: Patient reports: Yes no complaints, Yes normal lochia, Yes pain management effective, Yes tolerating po well, Yes voiding well, Ye s voiding without pain, Yes tolerating ambulation, Yes flatus Objective Nursing Documentation Review Nursing Data: The data set between the solid lines has been im ported from nursing documentation. Any exceptions have been noted be low under Provider comments. Feeding preference: Post hemorrhage risk score: Medium Risk f or Hemorrhage. Provider comments on imported nursing data: [] General VS: Vital Signs: Date Time Temp Pulse Resp B/P B/P Pulse O2 O2 F low FiO2 Mean Ox Delivery Rate 03/28 0053 37.1 68 16 124/75 98 03/27 2050 37.2 68 16 123/81 98 03/27 1536 37.0 65 17 120/67 97 03/27 1120 37.0 69 17 108/67 97 PATIENT WEIGHT: Weight (lb): 179 Weight (oz): Weight (kg): 81.193 Physical Exam Abdomen: soft, no abnormal tenderness, no guardi ng Uterus: involution appropriate, non-tender Fundus: firm, below the umbilicus Lochia: normal Lacerations: Perineal laceration(s): None Lower extremities: Edema: none Colleen's sign: negative Calf tenderness: negative Diagnosis, Assessment Plan Diagnosis, Assessment Plan Assessment: nml progress Plan: routine care, discharge today at 0904 RPT #:[id number] END OF REPORT 2021-03-27 09:21:00-00:00 [facility] ([facility]) OB Postpart Progr Note REPORT#:[id number] REPORT STATUS: Signed DATE:03/27/21 TIME: 920 PATIENT: LUIS EDMONDS UNIT #: [id number] ROOM/BED: [place] [id number] : 02 AGE: 20 SEX: F ATTEND: Fabio Burciaga MD ADM AUTHOR: Luis Burciaga MD * ALL edits or amendments must be made on the el [employer]/computer document * Subjective Subjective Admission EGA: Weeks: 37 Days: 3 EGA at delivery (wks/days): 37 weeks (3d) Status/Day: post (d1) Patient reports: Patient reports: Yes no complaints, Yes normal lochia, Yes pain management effective, Yes tolerating po well, Yes voiding well, Ye s voiding without pain, Yes tolerating ambulation, Yes flatus Objective Nursing Documentation Review Nursing Data: The data set between the solid lines has been im ported from nursing documentation. Any exceptions have been noted be low under Provider comments. Feeding preference: Post hemorrhage risk score: Medium Risk f or Hemorrhage. Provider comments on imported nursing data: [] General VS: Vital Signs: Date Time Temp Pulse Resp B/P B/P Pulse O2 O2 F low FiO2 Mean Ox Delivery Rate 03/27 0734 36.9 74 17 124/82 97 03/27 0440 36.9 69 16 116/75 99 09/09 0100 37.0 83 16 108/68 97 /08 2115 37.1 62 18 131/79 98 09/08 2035 94.0 /08 2035 59 126/73 09/08 2021 82.0 /08 2021 76 129/57 /08 1956 37.1 16 08 1956 76.0 /08 1956 72 117/53 09/08 1940 69 100 09/08 1935 87.0 09/08 1935 69 125/62 09/08 1925 78 100 09/08 1920 86.0 09/08 1920 87 120/60 09/08 1905 80.0 09/08 1905 75 119/56 09/08 1854 87.0 09/08 1854 64 158/60 09/08 1853 83 91 09/08 1845 65 100 09/08 1833 73 91 09/08 1830 75 93 09/08 1827 87 92 09/08 1818 90.0 /08 1818 79 113/75 09/08 1815 70 100 09/08 1801 86 87 09/08 1800 86 100 09/08 1755 84.0 09/08 1755 75 120/60 09/08 1754 75 88 09/08 1745 59 100 09/08 1739 95.0 09/08 1739 59 129/73 09/08 1730 55 100 09/08 1725 102.0 09/08 1725 55 143/73 09/08 1715 58 100 09/08 1709 98.0 09/08 1709 60 131/80 09/08 1700 60 100 09/08 1655 60 92 09/08 1654 97.0 09/08 1654 56 126/77 09/08 1645 59 100 09/08 1639 95.0 09/08 1639 49 127/75 09/08 1630 36.8 09/08 1630 55 100 09/08 1624 102.0 09/08 1624 51 134/81 09/08 1615 55 99 09/08 1609 99.0 09/08 1609 55 132/75 09/08 1600 55 100 09/08 1554 97.0 09/08 1554 62 126/77 09/08 1545 57 100 09/08 1540 96.0 09/08 1540 60 125/76 09/08 1530 58 100 09/08 1525 85.0 09/08 1525 52 120/61 09/08 1515 59 100 09/08 1510 78.0 09/08 1510 59 112/55 09/08 1500 36.6 57 16 100 09/08 1455 94.0 09/08 1455 64 132/68 09/08 1445 59 100 09/08 1441 87.0 09/08 1441 55 120/67 09/08 1430 57 99 09/08 1424 93.0 09/08 1424 61 128/72 09/08 1415 54 99 09/08 1411 93.0 09/08 1411 56 127/71 09/08 1400 58 99 09/08 1355 96.0 09/08 1355 58 126/74 09/08 1346 68 93 09/08 1345 69 98 09/08 1339 100.0 09/08 1339 61 130/81 09/08 1330 36.5 62 16 100 09/08 1326 95.0 09/08 1326 60 127/74 09/08 1315 59 100 09/08 1306 79.0 09/08 1306 62 112/55 09/08 1301 76.0 09/08 1301 70 110/53 09/08 1300 73 97 09/08 1257 81.0 09/08 1257 74 120/56 09/08 1251 75.0 09/08 1251 67 113/52 09/08 1246 80.0 09/08 1246 60 118/56 09/08 1245 64 100 09/08 1241 81.0 09/08 1241 64 119/56 09/08 1234 84.0 09/08 1234 68 121/59 09/08 1230 62 100 09/08 1215 63 100 09/08 1214 108.0 09/08 1214 73 133/92 09/08 1142 94.0 09/08 1142 65 120/78 09/08 1139 36.7 16 09/08 1012 89.0 09/08 1012 36.7 72 16 120/71 09/08 0944 95.0 09/08 0944 78 121/79 PATIENT WEIGHT: Weight (lb): 179 Weight (oz): Weight (kg): 81.193 Physical Exam Abdomen: soft, no abnormal tenderness, no guardi ng Uterus: involution appropriate, non-tender Fundus: firm, below the umbilicus Lochia: normal Lacerations: Perineal laceration(s): None Lower extremities: Edema: none Colleen's sign: negative Calf tenderness: negative Result Findings/Data: Laboratory Tests: 03/27 420 Hematology WBC (4.5 - 11.0 x10 3/uL) 12.6 H RBC (3.54 - 5.02 x10 6/uL) 2.95 L Hgb (11.0 - 15.0 g/dL) 8.0 L Hct (33.0 - 45.0 %) 25.8 L MCV (81.0 - 99.0 fL) 87.5 MCH (27.0 - 33.0 pg) 27.1 MCHC (33.0 - 37.0 g/dL) 31.0 L RDW (11.5 - 14.5 %) 14.5 Plt Count (150 - 400 x10 3/uL) 294 MPV (7.0 - 9.0 fL) 11.7 H Neut % (Auto) (56.0 - 77.0 %) 64.4 Lymph % (Auto) (14.0 - 32.0 %) 24.9 [place] % (Auto) (4.8 - 9.0 %) 9.4 H Eos % (Auto) (0.3 - 3.7 %) 0.6 Baso % (Auto) (0.0 - 2.0 %) 0.2 Neut # (Auto) (2.0 - 7.6 x10 3/uL) 8.09 H Lymph # (Auto) (1.0 - 3.8 x10 3/uL) 3.13 [place] # (Auto) (0.1 - 0.8 x10 3/uL) 1.18 H Eos # (Auto) (0.0 - 0.2 x10 3/uL) 0.07 Baso # (Auto) (0.0 - 0.2 x10 3/uL) 0.03 Abs Immat Gran (auto) (0.00 - 0.03 x10 3/uL) 0. 06 H Add Manual Diff NO Immature Gran % (0.0 - 2.0 %) 0.5 Nucleated RBC % (0 - 0 %) 0.0 Nucleated RBCs # (Man) (0.0 - 0.1 x10 3/uL) 0.0 0 Diagnosis, Assessment Plan Diagnosis, Assessment Plan Assessment: nml progress Plan: routine care at 0922 RPT #:[id number] END OF REPORT 2021-03-26 18:49:00-00:[address] [facility]) OB Delivery Note REPORT#:[id number] REPORT STATUS: Signed DATE:03/26/21 TIME: 1848 PATIENT: LUIS EDMONDS UNIT #: [id number] ROOM/BED: [place] [id number] : 02 AGE: 20 SEX: F ATTEND: Fabio Burciaga MD ADM AUTHOR: Luis Burciaga MD * ALL edits or amendments must be made on the el [employer]ronic/computer document * OB Delivery Nursing Documentation Review Nursing data: The data set between the solid lines has been im ported from nursing documentation. Any exceptions have been noted be low under Provider comments. _ ROM date: 03/26/21 ROM time: 1105 Membranes rupture method: AROM Amniotic fluid color: Clear Amniotic fluid amount: Steroids prior to arrival: Antibiotic prophylaxis given: Post hemorrhage risk score: Low Risk for Hemorrhage. Delivery date infant A: 03/26/21 Delivery time i nfant A: 1807 Birthweight (gm) A: 3200 Weight (lb) A: Weight (oz) A: Gender A: Female 1 minute A: 5 minutes infant A: 10 minutes A: Cord pH obtained A: Vacuum time A: Vacuum # pulls A: Vacuum # popoffs infant A: QBL at delivery: __ Provider comments on imported nursing data: [] Pre-delivery Admission EGA: Weeks: 37 Days: 3 EGA at delivery (wks/days): 37 weeks (3d) Baby A Information Baby A information Delivery date: 03/26/21 status: live born Gender: male 1 minute: 8 5 minutes: 9 Presentation: vertex ABG details Baby A Cord blood gases: collected Nuchal cord Baby A Nuchal cord: yes (loose and reduced) Vaginal Delivery Vaginal delivery: Labor: spontaneous Medications/Devices used: oxytocin Vaginal delivery: spontaneous Amniotic fluid: clear Anesthesia type: epidural anesthesia Placenta: spontaneous Post delivery meds used: oxytocin Count: correct Mother's condition: mother stable Lacerations: Perineal laceration(s): None Blood Loss/Details Blood loss at delivery: 50 at 1852 RPT #:[id number] END OF REPORT 2021-03-26 08:25:00-00:00 [facility] ([facility]) DT History Physical REPORT#:[id number] REPORT STATUS: Signed DATE:03/26/21 TIME: 824 PATIENT: LUIS EDMONDS UNIT #: [id number] ROOM/BED: [place] [address] : 02 AGE: 20 SEX: F ATTEND: Fabio Burciaga MD ADM AUTHOR: Luis Burciaga MD * ALL edits or amendments must be made on the el [employer] document * History Physical History Physical Please care records and office H P at 2112 RPT #:[id number] END OF REPORT 2021-03-12 21:16:00-00:00 [facility] ([facility]) OB Medical Screening Exam REPORT#:[id number] REPORT STATUS: Signed DATE:03/12/21 TIME: 2115 PATIENT: LUIS EDMONDS UNIT #: [id number] ROOM/BED: : 02 AGE: 20 SEX: F ATTEND: Effie Beavers MD ADM AUTHOR: Effie Solitario * ALL edits or amendments must be made on the el ectronic/computer document * Medical Screening Exam Provider Attestation Attestation: The QMP MSE reviewed. Provider at bedside at 2113 Comments: 20 y/o GP0 IUP 35 4/7 presents due to leaking of fluid and contractions. at 2152 RPT #:[id number] END OF REPORT 2021-03-12 21:16:00-00:00 [facility] ([facility]) OLGA Evaluation Note REPORT#:[id number] REPORT STATUS: Signed DATE:03/12/21 TIME: 2115 PATIENT: LUIS EDMONDS UNIT #: [id number] ROOM/BED: [place] [id number] : 02 AGE: 20 SEX: F ATTEND: Effie Beavers MD ADM AUTHOR: Effie Solitario MD * ALL edits or amendments must be made on the [employer]/computer document * OLGA History Chief complaint: uterine contractions, suspected ruptured memb HPI: 20 y/o GP0 IUP 35 10/23 presents due to leaking of fluid and contractions. She refers good movements and denies a ny vaginal bleeding or recent exposure tVerbal consent obtained fro m patient to discuss history, lab results, treatment , plan and any other pertinent informati on in front of patient's companions. o COVID, fever or SOB. history: : 1 Current : EDC: 04/12/21 EGA (weeks/days): 35 weeks Past medical history: depression, anxiety Past surgical history: tonsils/adenoids Social history: no alcohol use, no tobacco use, no drug use Family history FATHER Family History: Heart disease MOTHER Family History: Cancer MOTHER Relation not specified for: Family History: Diabetes FH: multiple sclerosis Medications: Home Medications: Medication Dose/Rte/Freq Days Qty Entered Last Max Daily Dose Reviewed PNV WITH FE 1 TAB PO DAILY 12/25/20 FUMARATE/FA 1511 () Strength: 1 EACH TAB Allergies Uncoded Allergies: MALIC ACID (Severe, TONGUE SWELLING, THROAT CLOS ING 12/24/17) Review of Systems Additional notes: Constitutional: Denies: chills, fatigue, fever, generalized weak ness, lethargy, malaise. Respiratory: Denies: productive cough (sputum), SOB. GI: Denies: abdominal pain, constipation, diarrhea, nausea, vomiting. : Refers: gush of vaginal fluids and contractions Denies: urgency, vaginal bleeding. 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 35 weeks gestation of Free Text A P: initial exam 2113 Patent presents due to gush of fluids and contra ctions. Will send UA and amnisure. Re-evaluation 223 Ordered BPP 2355 Awaiting BPP results. 0050 Still awaiting BPP results 0105 BPP 8/8 ISMA 8, no cervical change 20 y/o GP0 IUP 35 4/7 presented due to leaking o f fluid and contractions, amnisure negative. Patent found to be he modynamically stable with normal vital signs, category I strip and found not to b e in labor. 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 Assessment: no evidence labor Impression: reactive NST Plan: discharge home Plan discussed with: patient, nurse at 0104 RPT #:[id number] END OF REPORT 2021-03-01 06:09:00-00:[address] [facility]) OLGA Evaluation Note REPORT#:[id number] REPORT STATUS: Signed DATE:03/01/21 TIME: 608 PATIENT: LUIS EDMONDS UNIT #: [id number] ROOM/BED: 304-1 : 02 AGE: 20 SEX: F ATTEND: Fabio Burciaga MD ADM AUTHOR: Effie Solitario * ALL edits or amendments must be made on the el ectronic/computer document * See Addendum OLGA History Chief complaint: decreased movement, Pelvi c pressure HPI: 20 y/o IUP 34 0/7 presents due to decreased movements and pelvic pressure. She denies any gush of vaginal fluids, vaginal bleeding or recent exposure to COVID, fever or SOB. Verbal consent obtained from patient to discuss history, lab results, treatment, plan and any other pertinent information in fron t of patient's companions. history: : 1 Current : EDC: 04/12/21 EGA (weeks/days): 34 weeks Past medical history: depression, Anxiety Past surgical history: tonsils/adenoids Social history: no alcohol use, no tobacco use, no drug use Family history FATHER Family History: Heart disease MOTHER Family History: Cancer MOTHER Relation not specified for: Family History: Diabetes FH: multiple sclerosis Medications: Home Medications: Medication Dose/Rte/Freq Days Qty Entered Last Max Daily Dose Reviewed PNV WITH FE 1 TAB PO DAILY 12/25/20 03/01/21 FUMARATE/FA 1511 0592 () Strength: 1 EACH TAB Allergies Uncoded Allergies: MALIC ACID (Severe, TONGUE SWELLING, THROAT CLOS ING 12/24/17) Review of Systems Additional notes: Constitutional: Denies: chills, fatigue, fever, generalized weak ness, lethargy, malaise. Respiratory: Denies: productive cough (sputum), SOB. GI: Denies: abdominal pain, constipation, diarrhea, nausea, vomiting. : Denies: urgency, vaginal bleeding. 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 34 weeks gestation of 2. Decreased movement Free Text A P: initial exam 0600 Patient presents due to decreased movement s and pelvic pressure. Will order BPP and UA. Dr Chavez will assume care at 0700 at 0647 Addendum 1: 03/01/21 0853 by Pearl Chavez DO BPP 02/23 ISMA NOT ON U/S SO I CALLED AND VERBAL REPORT FR TECH WAS 13 CM VERTEX VE EXT 1/2 CM, CLOSED INTERNALLY, THICK, POSTERI OR D/C HOME W PRECAUTIONS. F/U W DR. BURCIAGA AT HER APT WEDNESDAY. at 0854 RPT #:[id number] END OF REPORT 2021-03-01 06:09:00-00:00 [facility] OB Medical Screening Exam REPORT#:[id number] REPORT STATUS: Signed DATE:03/01/21 TIME: 608 PATIENT: LUIS EDMONDS UNIT #: [id number] ROOM/BED: [place] [id number] : 02 AGE: 20 SEX: F ATTEND: Fabio Burciaga MD ADM AUTHOR: Effie Solitario * ALL edits or amendments must be made on the el ectronic/computer document * Medical Screening Exam Provider Attestation Attestation: The QMP MSE reviewed. Provider at bedside at 0600 Comments: IUP 34 0/7 presents due to decreased movem ents and pelvic pressure. at 0643 RPT #:[id number] END OF REPORT 2021-03-01 06:09:00-00:00 [facility] ([facility]) OLGA Evaluation Note REPORT#:[id number] REPORT STATUS: Signed DATE:03/01/21 TIME: 608 PATIENT: LUIS EDMONDS UNIT #: [id number] ROOM/BED: [place] [id number] : 02 AGE: 20 SEX: F ATTEND: Fabio Burciaga MD ADM AUTHOR: Effie Solitario * ALL edits or amendments must be made on the [employer]/computer document * OLGA History Chief complaint: decreased movement, Pelvi c pressure HPI: 20 y/o IUP 34 0/7 presents due to decreased movements and pelvic pressure. She denies any gush of vaginal fluids, vaginal bleeding or recent exposure to COVID, fever or SOB. Verbal consent obtained from patient to discuss history, lab results, treatment, plan and any other pertinent information in fron t of patient's companions. history: : 1 Current : EDC: 04/12/21 EGA (weeks/days): 34 weeks Past medical history: depression, Anxiety Past surgical history: tonsils/adenoids Social history: no alcohol use, no tobacco use, no drug use Family history FATHER Family History: Heart disease MOTHER Family History: Cancer MOTHER Relation not specified for: Family History: Diabetes FH: multiple sclerosis Medications: Home Medications: Medication Dose/Rte/Freq Days Qty Entered Last Max Daily Dose Reviewed PNV WITH FE 1 TAB PO DAILY 12/25/20 03/01/21 FUMARATE/FA 1511 0503 () Strength: 1 EACH TAB Allergies Uncoded Allergies: MALIC ACID (Severe, TONGUE SWELLING, THROAT CLOS ING 12/24/17) Review of Systems Additional notes: Constitutional: Denies: chills, fatigue, fever, generalized weak ness, lethargy, malaise. Respiratory: Denies: productive cough (sputum), SOB. GI: Denies: abdominal pain, constipation, diarrhea, nausea, vomiting. : Denies: urgency, vaginal bleeding. 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 34 weeks gestation of 2. Decreased movement Free Text A P: initial exam 0600 Patient presents due to decreased movement s and pelvic pressure. Will order BPP and UA. Dr Chavez will assume care at 0700 at 0647 RPT #:[id number] END OF REPORT 2021-02-17 15:34:00-00:00 [facility] OB Medical Screening Exam REPORT#:[id number] REPORT STATUS: Signed DATE:02/17/21 TIME: 153 PATIENT: LUIS EDMONDS UNIT #: [id number] ROOM/BED: [place] [id number] : 02 AGE: 20 SEX: F ATTEND: Effie Beavers MD ADM DT: AUTHOR: Effie Solitario MD * ALL edits or amendments must be made on the el [employer]/computer document * Medical Screening Exam Provider Attestation Attestation: The QMP MSE reviewed. Provider at bedside at 1537 Comments: 20 y/o IUP 32 2/7 presents due to gush of f luids and cramping. at 1615 RPT #:[id number] END OF REPORT 2021-02-17 15:34:00-00:00 [facility] ([facility]) OLGA Evaluation Note REPORT#:[id number] REPORT STATUS: Signed DATE:02/17/21 TIME: 1534 PATIENT: LUIS EDMONDS UNIT #: [id number] ROOM/BED: : 02 AGE: 20 SEX: F ATTEND: Effie Beavers MD ADM DT: AUTHOR: Effie Solitario MD * ALL edits or amendments must be made on the [employer]/computer document * OLGA History Chief complaint: uterine contractions, suspected ruptured memb HPI: 20 y/o IUP 32 08/25 presents due to g ush of fluids and cramping. She refers good movements and den ies any vaginal bleeding or recent exposure to COVID , fever or SOB. Verbal consent obtained from patient to discuss history, lab results, treatment, plan and any other pertinent information in fron t of patient's companions. history: : 1 Current : EDC: 04/12/21 EGA (weeks/days): 32 weeks Past medical history: depression, anxiety Past surgical history: tonsils/adenoids Social history: no alcohol use, no tobacco use, no drug use Family history FATHER Family History: Heart disease MOTHER Family History: Cancer MOTHER Relation not specified for: Family History: Diabetes FH: multiple sclerosis Medications: Home Medications: Medication Dose/Rte/Freq Days Qty Entered Last Max Daily Dose Reviewed PNV WITH FE 1 TAB PO DAILY 12/25/20 02/17/21 FUMARATE/FA 1511 1518 () Strength: 1 EACH TAB Allergies Uncoded Allergies: MALIC ACID (Severe, TONGUE SWELLING, THROAT CLOS ING 12/24/17) Review of Systems Additional notes: Constitutional: Denies: chills, fatigue, fever, generalized weak ness, lethargy, malaise. Respiratory: Denies: productive cough (sputum), SOB. GI: Refers: nausea Denies: abdominal pain, constipation, diarrhea, vomiting. : Refers: gush of vaginal fluids and contractions Denies: urgency, vaginal bleeding. 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 32 weeks gestation of Free Text A P: initial exam 1537 Patient presents due to gush of fluids and contr actions. Will send FFN, amnisure and UA. Re-evaluation 1640 Amnisure and FFN negative, no contractions 20 y/o IUP 32 2/7 presented due to gush of fluids and cramping. Amnisure and FFN negative, no contractions. Patent found to be hemodynamically stable with normal vital signs, category I strip and found not to be in labor. Oriented on discharge and labor precautions as w ell as kick counts and she voiced understanding will have her follow-up wit h her CAUL FAT PULLER. Assessment: no evidence labor Impression: reactive NST Plan: discharge home Plan discussed with: patient, nurse at [facility] RPT #:[id number] END OF REPORT 2021-02-12 21:22:00-00:00 [facility] ([facility]) OB Medical Screening Exam REPORT#:[id number] REPORT STATUS: Signed DATE:02/12/21 TIME: 2121 PATIENT: LUIS EDMONDS UNIT #: [id number] ROOM/BED: : 02 AGE: 20 SEX: F ATTEND: Effie Beavers MD ADM DT: AUTHOR: Effie Solitario MD * ALL edits or amendments must be made on the [employer] document * Medical Screening Exam Provider Attestation Attestation: The QMP MSE reviewed. Provider at bedside at 0754 Comments: 20 y/o IUP 32 0/7 presents due to complaind of abdominal and epigastric pain, nausea and decreased movements. at 0915 RPT #:[id number] END OF REPORT 2021-02-12 21:21:00-00:00 [facility] OLGA Evaluation Note REPORT#:[id number] REPORT STATUS: Signed DATE:02/12/21 TIME: 2120 PATIENT: LUIS EDMONDS UNIT #: [id number] ROOM/BED: : 02 AGE: 20 SEX: F ATTEND: Effie Beavers MD ADM DT: AUTHOR: Effie Solitario MD * ALL edits or amendments must be made on the [employer] document * OLGA History Chief complaint: uterine contractions, nausea, a bdominal pain HPI: 20 y/o IUP 32 0/7 presents due to complaint of contraction, nausea and decreased movements. She denies any gush o f vaginal fluids, vaginal bleeding or recent exposure to COVID, fever or S OB. Verbal consent obtained from patient to discuss history, lab results, treatment, plan and any other pertinent information in fron t of patient's companions. history: : 1 Current : EDC: 04/12/21 EGA (weeks/days): 32 week Past medical history: depression, anxiety Past surgical history: tonsils/adenoids Social history: no alcohol use, no tobacco use, no drug use Family history FATHER Family History: Heart disease MOTHER Family History: Cancer MOTHER Relation not specified for: Family History: Diabetes FH: multiple sclerosis Medications: Home Medications: Medication Dose/Rte/Freq Days Qty Entered Last Max Daily Dose Reviewed PNV WITH FE 1 TAB PO DAILY 12/25/20 FUMARATE/FA 1511 () Strength: 1 EACH TAB Allergies Uncoded Allergies: MALIC ACID (Severe, TONGUE SWELLING, THROAT CLOS ING 12/24/17) Review of Systems Additional notes: Constitutional: Denies: chills, fatigue, fever, generalized weak ness, lethargy, malaise. Respiratory: Denies: productive cough (sputum), SOB. GI: Refers: nausea Denies: abdominal pain, constipation, diarrhea, vomiting. : Refers: contractions Denies: urgency, vaginal bleeding. 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 exteral genitalia Cervical/ exam: Speculum exam: no discharge Dilatation (cm): closed Effacement (%): thick station: high FHR evaluation: FHR category: category I Results Findings/Data: Laboratory Tests: 02/12 Miscellaneous Fibronectin (NEGATIVE) NEGATIVE Urines Urine Color (YEL/STRAW) YELLOW Urine Appearance (CLEAR) CLEAR Urine pH (5.0 - 7.0) 6.0 Ur Specific [place] (1.005 - 1.030) 1.006 Urine Protein (NEGATIVE) NEGATIVE Urine Glucose (UA) (NEGATIVE) NEGATIVE Urine Ketones (NEGATIVE) NEGATIVE Urine Blood (NEGATIVE) NEGATIVE Urine Nitrite (NEGATIVE) NEGATIVE Urine Bilirubin (NEGATIVE) NEGATIVE Urine Urobilinogen (0.2 - 1.0 mg/dL) 2.0 H Ur Leukocyte Esterase (NEGATIVE) NEGATIVE Urine RBC (0 - 3 RBC/HPF) 0-3 Urine WBC (0 - 3 WBC/HPF) 0-3 Ur Squamous Epith Cells (NONE SEEN /HPF) 0-5 Urine Bacteria (NONE SEEN /HPF) TRACE Urine Mucus (NONE SEEN /LPF) TRACE Recent Impressions: ULTRASOUND - US BIOPHYS PROF 02/12 2123 Report Impression - Status: SIGNED Entered: 02/12/20212148 IMPRESSION: 1. There is a single live intrauterine gestation in vertex presentation. 2. Normal biophysical profile score of 8/8. 3. The amniotic fluid index is 10.6 cm. The deep est vertical pocket is 0.5 cm. This is within normal limits. 4. The uterine cervix is closed and the cervical length is 3.5 cm. Impression By: [email or web address] - Geovanny Hughes D.O. Diagnosis, Assessment Plan Diagnosis, Assessment Plan Problem List/A P: 1. 32 weeks gestation of Free Text A P: initial exam 1953 Patient presents due to contractions and decreased movements, will order BPP and labs. Re-evaluation 2222 Patient refers feeling movements. BPP 8/8, cat I strip 20 y/o IUP 32 0/7 presented due to complain t of contraction, nausea and decreased movements. BPP 8/8 UA ne gative and patient began feeling movements. Patent found to be hemodynamically st able with normal vital signs, category I strip and found not to be in labor. Oriented on discharge and labor precautions as well as kick counts and she voiced understanding will have her follow-up with her CAUL FAT PULLER. Assessment: no evidence labor Impression: reactive NST Plan: discharge home Plan discussed with: patient, nurse at 0921 RPT #:[id number] END OF REPORT 2021-01-29 03:41:00-00:00 [facility] ([facility]) OLGA Evaluation Note REPORT#:[id number] REPORT STATUS: Signed DATE:01/29/21 TIME: 0341 PATIENT: LUIS EDMONDS UNIT #: [id number] [facility] AGE: 20 SEX: F ATTEND: Dhara Chavez MD ADM AUTHOR: Dottie Chavez MD * ALL edits or amendments must be made on the [employer]/computer document * OLGA History Chief complaint: uterine contractions, constant low back pain on left > R HPI: 20 y/o G1 @ 29w with lower abd cramping as well as constant left flank pain on side for 2 days. reports +FM , no lof/rom. no vb . no discharge. no dysuria. neg for fever, chills. no n/v history: : 1 Current : EDC: 04/12/21 EGA (weeks/days): 29w Past medical history: denies PMH Past surgical history: tonsils/adenoids Social history: no alcohol use, no tobacco use, no drug use Family history Family history was reviewed; no changes noted. Medications: Home Medications: Medication Dose/Rte/Freq Days Qty Entered Last Max Daily Dose Reviewed PNV WITH FE 1 TAB PO DAILY 12/25/20 01/29/21 FUMARATE/FA 1511 0302 () Strength: 1 EACH TAB Allergies Uncoded Allergies: MALIC ACID (Severe, TONGUE SWELLING, THROAT CLOS ING 12/24/17) Review of Systems : Reports: pelvic pain, . Denies: vaginal bleeding, vaginal discharge. All systems rev neg: except as marked Objective General VS: Last Documented: Result Date Time Temp 98.1 01/29 0254 B/P Mean 67.0 01/29 0252 B/P 92/51 01/29 0252 Pulse 94 01/29 0252 Vital Signs Date Temp Pulse Resp B/P B/P Mean Pulse Ox FiO2 01/29 98.1 94 92/51 67.0 PATIENT WEIGHT: Weight (lb): 161 Weight (oz): Weight (kg): 73.028 Notes: gen: aao x 3 in nad Physical Exam HEENT: normocephalic w/o injury Cardiac: regular rate and rhythm Lungs: unlabored breathing Abdomen: gravid, soft, no abnormal tenderness, n o rebound tenderness, normoactive bowel sounds Uterine activity: Monitor: toco Cervical/ exam: Dilatation (cm): 0 - closed Effacement (%): 0 station: - 4 FHR evaluation: Baseline: 140 bpm Variability: moderate 6-25 bpm Accelerations: 10 X 10 Decelerations: none Notes: appropropriate for gestational age Lower extremities: Edema: none Calf tenderness: negative Results Findings/Data: Laboratory Tests: 01/29 0300 Urines Urine Color (YEL/STRAW) YELLOW Urine Appearance (CLEAR) CLOUDY H Urine pH (5.0 - 7.0) 7.0 Ur Specific [place] (1.005 - 1.030) 1.010 Urine Protein (NEGATIVE) NEGATIVE Urine Glucose (UA) (NEGATIVE) NEGATIVE Urine Ketones (NEGATIVE) NEGATIVE Urine Blood (NEGATIVE) NEGATIVE Urine Nitrite (NEGATIVE) NEGATIVE Urine Bilirubin (NEGATIVE) NEGATIVE Urine Urobilinogen (0.2 - 1.0 mg/dL) 0.2 Ur Leukocyte Esterase (NEGATIVE) NEGATIVE Urine RBC (0 - 3 RBC/HPF) 0-3 Urine WBC (0 - 3 WBC/HPF) 4-9 H Ur Squamous Epith Cells (NONE SEEN /HPF) 0-5 Urine Bacteria (NONE SEEN /HPF) 1+ H Urine Mucus (NONE SEEN /LPF) TRACE Diagnosis, Assessment Plan Diagnosis, Assessment Plan Free Text A P: A: 20 y/o G1 @ 29w with lower abd pain, probable round ligament P1. d/c home 2. ptl precations 3. f/u as scheduled with primary OB in [place], [place] at 0355 RPT #:[id number] END OF REPORT 2021-01-29 03:39:00-00:00 [facility] ([facility]) OB Medical Screening Exam REPORT#:[id number] REPORT STATUS: Signed DATE:01/29/21 TIME: 033 PATIENT: LUIS EDMONDS UNIT #: [id number] ROOM/BED: [place] [address] : 02 AGE: 20 SEX: F ATTEND: Dhara Chavez MD ADM AUTHOR: Dottie Chavez MD * ALL edits or amendments must be made on the el [employer]computer document * Medical Screening Exam Provider Attestation Comments: 20 y/o G1 @ 29w with lower abd cramping as well as constant left flank pain on side for 2 days. reports +FM , no lof/rom. no vb . at 0341 RPT #:[id number] END OF REPORT 2020-12-25 16:25:00-00:00 [facility] ([facility]) OLGA Evaluation Note REPORT#:[id number] REPORT STATUS: Signed DATE:12/25/20 TIME: 1625 PATIENT: LUIS EDMONDS UNIT #: [id number] ROOM/BED: [place] [address] : 02 AGE: 20 SEX: F ATTEND: Arthur Chavez DO ADM AUTHOR: Pearl Chavez DO * ALL edits or amendments must be made on the el [employer]/computer document * OLGA History Chief complaint: discomfort, nausea and vomiting HPI: 20 y/o EDC 04/12 at 24 w 4 day presents with low back pain, vaginal pain, pressure like needs to take BM, and she is not sure what the fluid that leaked at 0200 this am was, denies urine. She was told in prior u/s at [facility] that ISMA was low, she did have a f/u u/s after th at but is not sure results. She is not sure if cxn. She has good mvmt and no vagi nal bleeding. Thinks she lost her mucus plug. She denies v aginal odor or itching; and thinks her last sex was 2-3 days ago. She is also pu mping her breast daily w pump b/c has milk and says was told she could by her care office. history: : 1 Current : EDC: 04/12/21 EGA (weeks/days): 24 weeks 4 day Conditions of : anemia, ? oligo Past medical history: Covid positive Past surgical history: tonsils/adenoids Social history: unemployed, single, no a lcohol use, no drug use, quit cig with Family history FATHER Family History: Heart disease MOTHER Family History: Cancer MOTHER Relation not specified for: Family History: Diabetes FH: multiple sclerosis Medications: Home Medications: tried zofran OD and phenergan w/o relief Medication Dose/Rte/Freq Days Qty Entered Last Max Daily Dose Reviewed PNV WITH FE 1 TAB PO DAILY 12/25/20 FUMARATE/FA 1511 () Strength: 1 EACH TAB Allergies Uncoded Allergies: MALIC ACID (Severe, TONGUE SWELLING, THROAT CLOS ING 12/24/17) Review of Systems Constitutional: Denies: fever. ENT: Denies: sore throat. Respiratory: Denies: non productive cough. GI: Reports: nausea, vomiting. : Reports: . Denies: vaginal bleeding. Objective General VS: Last Documented: Result Date Time Temp 97.6 12/25 1536 Resp 16 12/25 1536 Pulse Ox 98 12/25 1527 Pulse 104 12/25 1527 B/P Mean 86.0 12/25 1521 B/P 117/68 12/25 1521 Vital Signs Date Temp Pulse Resp B/P B/P Mean Pulse Ox FiO 2 12/25 97.6 104-113 16 117/68 86.0 98 PATIENT WEIGHT: Weight (lb): Weight (oz): Weight (kg): Physical Exam HEENT: normocephalic w/o injury, no scleral icte juan Lungs: unlabored breathing Neuro: Exam: alert, oriented x3, normal speech Abdomen: gravid, soft, no abnormal tenderness, n o guarding, no rebound tenderness Uterine activity: Monitor: toco Frequency (description): none Pelvic exam: Vulvar lesions: none, no evidence herpetic les, no evidence of other STD Vagina: normal, non-septated, w/o apparent lesi ons Sterile speculum exam: visually closed, no pool ing, no bleeding, minimal d/c noted wet mount and ROM collected Cervical/ exam: Dilatation (cm): 0 - closed Effacement (%): 0 station: - 4 FHR evaluation: Baseline: 140 bpm Variability: moderate 6-25 bpm Accelerations: 10 X 10 Decelerations: none FHR category: category 1 Membranes: Membranes: status undetermined Results Findings/Data: Microbiology: Date/Time Procedure - Status Source Growth 12/25 162 Wet Prep - ORD VAGINAL Diagnosis, Assessment Plan Diagnosis, Assessment Plan Free Text A P: 20 y/o p0 at 24 w 4 day with c/o possible PROM, possible cxn with low back pain, breast "engorgement" Pt is not in labor or cxn ROM Wet mount U/s Continue monitor toco for cxn. Will f/u at 1632 RPT #:[id number] END OF REPORT 2020-12-25 16:25:00-00:00 [facility] ([facility]) OLGA Evaluation Note REPORT#:[id number] REPORT STATUS: Signed DATE:12/25/20 TIME: 1625 PATIENT: LUIS EDMONDS UNIT #: [id number] ROOM/BED: [place] [id number] : 02 AGE: 20 SEX: F ATTEND: Arthur Chavez DO ADM AUTHOR: Pearl Chavez DO * ALL edits or amendments must be made on the Vobile/computer document * See Addendum OLGA History Chief complaint: discomfort, nausea and vomiting HPI: 20 y/o EDC 04/12 at 24 w 4 day presents with low back pain, vaginal pain, pressure like needs to take BM, and she is not sure what the fluid that leaked at 0200 this am was, denies urine. She was told in prior u/s at [facility] that ISMA was low, she did have a f/u u/s after th at but is not sure results. She is not sure if cxn. She has good mvmt and no vagi nal bleeding. Thinks she lost her mucus plug. She denies v aginal odor or itching; and thinks her last sex was 2-3 days ago. She is also pu mping her breast daily w pump b/c has milk and says was told she could by her care office. history: : 1 Current : EDC: 04/12/21 EGA (weeks/days): 24 weeks 4 day Conditions of : anemia, ? oligo Past medical history: Covid positive Past surgical history: tonsils/adenoids Social history: unemployed, single, no a lcohol use, no drug use, quit cig with Family history FATHER Family History: Heart disease MOTHER Family History: Cancer MOTHER Relation not specified for: Family History: Diabetes FH: multiple sclerosis Medications: Home Medications: tried zofran OD and phenergan w/o relief Medication Dose/Rte/Freq Days Qty Entered Last Max Daily Dose Reviewed PNV WITH FE 1 TAB PO DAILY 12/25/20 FUMARATE/FA 1511 () Strength: 1 EACH TAB Allergies Uncoded Allergies: MALIC ACID (Severe, TONGUE SWELLING, THROAT CLOS ING 12/24/17) Review of Systems Constitutional: Denies: fever. ENT: Denies: sore throat. Respiratory: Denies: non productive cough. GI: Reports: nausea, vomiting. : Reports: . Denies: vaginal bleeding. Objective General VS: Last Documented: Result Date Time Temp 97.6 12/25 1536 Resp 16 12/25 1536 Pulse Ox 98 12/25 1527 Pulse 104 12/25 1527 B/P Mean 86.0 12/25 1521 B/P 117/68 12/25 1521 Vital Signs Date Temp Pulse Resp B/P B/P Mean Pulse Ox FiO2 12/25 97.6 104-113 16 117/68 86.0 98 PATIENT WEIGHT: Weight (lb): Weight (oz): Weight (kg): Physical Exam HEENT: normocephalic w/o injury, no scleral icte juan Lungs: unlabored breathing Neuro: Exam: alert, oriented x3, normal speech Abdomen: gravid, soft, no abnormal tenderness, n o guarding, no rebound tenderness Uterine activity: Monitor: toco Frequency (description): none Pelvic exam: Vulvar lesions: none, no evidence herpetic les, no evidence of other STD Vagina: normal, non-septated, w/o apparent lesi ons Sterile speculum exam: visually closed, no pool ing, no bleeding, minimal d/c noted wet mount and ROM collected Cervical/ exam: Dilatation (cm): 0 - closed Effacement (%): 0 station: - 4 FHR evaluation: Baseline: 140 bpm Variability: moderate 6-25 bpm Accelerations: 10 X 10 Decelerations: none FHR category: category 1 Membranes: Membranes: status undetermined Results Findings/Data: Microbiology: Date/Time Procedure - Status Source Growth 12/25 162 Wet Prep - ORD VAGINAL Diagnosis, Assessment Plan Diagnosis, Assessment Plan Free Text A P: 20 y/o p0 at 24 w 4 day with c/o possible PROM, possible cxn with low back pain, breast "engorgement" Pt is not in labor or cxn ROM Wet mount U/s Continue monitor toco for cxn. Will f/u at 1632 Addendum 1: 12/25/20 1806 by Pearl Chavez DO Rom negative Wet Mount negative U/s vertex, ISMA 13 cm, cervix 3.3 cm long ok to d/c Pelvic rest, and NO breast pumping F/u w her OB this week. at 1807 RPT #:[id number] END OF REPORT 2020-12-25 16:24:00-00:00 [facility] ([facility]) OB Medical Screening Exam REPORT#:[id number] REPORT STATUS: Signed DATE:12/25/20 TIME: 1623 PATIENT: LUIS EDMONDS UNIT #: [id number] ROOM/BED: [place] [id number] : 02 AGE: 20 SEX: F ATTEND: Arthur Chavez DO ADM AUTHOR: Pearl Chavez DO * ALL edits or amendments must be made on the el Point[employer] Manager/computer document * Medical Screening Exam Provider Attestation Comments: Pt triaged at 1610. at 1625 RPT #:[id number] END OF REPORT 2020-11-23 00:54:00-00:00 [facility] ([facility]) OB Triage Visit REPORT#:[id number] REPORT STATUS: Signed DATE:11/23/20 TIME: 53 PATIENT: LUIS EDMONDS UNIT #: [id number] ROOM/BED: [place] [id number] : 02 AGE: 19 SEX: F ATTEND: Chaitanya Ramirez aia, MD ADM DT: AUTHOR: Brittnee Ramirez MD * ALL edits or amendments must be made on the el ectronic/computer document * Subjective Subjective Patient reports: vaginal bleeding History Nursing Documentation Review Nursing data: The data set between the solid lines has been im ported from nursing documentation. Any exceptions have been noted be low under Provider comments. Current data Steroids prior to arrival: ROM date: ROM time: EDC date: Post hemorrhage risk score: Prior history : Para: Term: : Abortions spontaneous: Abortions induced: Living children: Ectopic: Stillbirths: Live births: deaths: Number of previous C/S: Reported maternal labs/data Blood type: Rh type: Rubella: Hepatitis B: HIV exposure test: VDRL: Group B beta strep: Rho(D) immune globulin this preg: Monitor mode - UA: Feeding preference: Provider comments on imported nursing data: [] Chief complaint Chief complaint: vaginal bleeding HPI: 19 yo 20 weeks states s he started to bleed after she came out of the shower around 11 pm tonight. States it was bright red a nd noticed by her sister. Denies trauma today but stat es she fell 2 weeks ago, was evaluated and told her fluid level was low. Also has bleeding four week s ago, again evaluated and reassured. Patient recieves PNC at the [facility]. Did not need to wear a ad in but saw a watery, blood tinged area on her underwear. Denies recent hemorroids or straining. No BM tonight. Shaving in the shower. Denies hematuria, dysuria and states urine was tested t hree days ago. Does not know blood type. Has had some uterine tighten ing but not painful. Denies other LOF. history: : 1 Term: 0 Current Current : EDC: 04/12/21 EGA (weeks/days): 20 Conditions of : teen , low flu id at last ultrasound Past history Past medical history: denies PMH Past surgical history: tonsils/adenoids, wisdom teeth removal Social history: no alcohol use, no tobacco use, no drug use Family history MOTHER Relation not specified for: Family History: Diabetes FH: multiple sclerosis Medications: PNV Allergies Coded Allergies: No Known Allergies (11/23/20) Review of Systems Constitutional: Denies: chills, fever. Respiratory: Denies: non productive cough, productive cough ( sputum), SOB. Cardiovascular: Denies: chest pain, edema. GI: Denies: abdominal pain, nausea, vomiting. : Reports: , vaginal bleeding. Denies: hem aturia, pelvic pain. Neuro: Denies: dizziness, lightheaded. Objective General VS: PATIENT WEIGHT: Weight (lb): Weight (oz): Weight (kg): Notes: Gen: well appearing gravid female in NAD Pulm: nl respiratory effort Abd: NT gravid soft Ext: -C/C/E Physical Exam: External genitalia: normal Vagina white creamy discharge, no new or old blo od Cervical/ exam: Dilatation (cm): 0 - closed Effacement (%): 0 station: - 5 FHR evaluation: Baseline: 150 bpm Uterine activity: Monitor: toco Frequency (description): none Diagnosis, Assessment Plan Diagnosis, Assessment Plan Free text A P: A/P 19 yo at 20 weeks with bleeding No new or old blood noted vaginally UDS, UA, CBC, blood type ordered Ultrasound complete at 0107 RPT #:[id number] END OF REPORT 2020-10-05 03:31:00-00:00 [facility] ([facility]) EMERGENCY PROVIDER REPORT REPORT#:[id number] REPORT STATUS: Signed DATE:10/05/20 TIME: 330 PATIENT: LUIS EDMONDS UNIT #: [id number] ROOM/BED: AGE: 19 SEX: F PCP PHYS: Elina Rome MD SERVICE AUTHOR: Nirav Nolan MD * ALL edits or amendments must be made on the Vobile/computer document * HPI- Female Peds Free Text HPI Notes Free Text HPI Notes 19-year-old female G1 approximately 10 weeks by dates complaining of vaginal bleeding started earlier today. Patient states s he has gone through 1 pad is only passing blood no clots or tissue. S he has some mild abdominal cramping in bilateral lower quadrants wh ich is not made better or worse by anything although she has not tried any medicine for it. She is al ready had 1 ultrasound approximately 4 to 6 weeks ago which showed a no rmal viable IUP. General Initial Greet Date/Time 10/05/20 0116 Presentation Chief Complaint Vaginal bleeding Review of Systems ROS Statements All systems rev neg except as marked. Free Text ROS Notes Free Text ROS Notes Abdominal pain vaginal bleeding Past Medical History - Peds Stated Complaint 12 WKS , VAG BLEEDING Allergies Uncoded Allergies: MALIC ACID (Severe, TONGUE SWELLING, THROAT CLOS ING 12/24/17) Home Medications Active Scripts ONDANSETRON ODT (ZOFRAN ODT) 4 MG PO Q6H PRN PRN NAUSEA/VOMITING ONDANSETRON ODT (ZOFRAN ODT) 4 MG PO Q6H PRN DC N NAUSEA/VOMITING #15 TABS Prov: 08/22/20 Reported Medications IBUPROFEN (MOTRIN) 800 MG PO TID Calculated suicide risk level: No risk Past Medical History: Reports: Asthma/chronic lung ds, GI issues/GERD. Additional Medical History chronic pinched nerve Additional Surgical History tonsilectomy Patient History FATHER Family History: Heart disease MOTHER Family History: Cancer Smoking status: Smoking status for patients 13 years old or old er: Never Smoker Social History Reports: Lives with father, Good social support. 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 Ambulatory Status Independent Physical Exam Vital Signs Vital Signs First Documented: Result Date Time Pulse Ox 99 10/05 138 B/P 110/67 10/05 138 B/P Mean 81 10/05 138 O2 Delivery Room air 10/05 138 Temp 37.2 10/05 138 Pulse 99 10/05 013 Resp 18 10/05 138 Last Documented: Result Date Time Pulse Ox 99 10/05 040 B/P 108/65 10/05 400 B/P Mean 79 10/05 040 Pulse 81 10/05 0401 Resp 16 10/05 400 O2 Delivery Room air 10/05 138 Temp 37.2 10/05 138 Review of Vital Signs Reviewed, Vital signs norm al Basic Physical Exam Basic PE GEN: Well appearing /NAD, HEAD: Atraumatic/NC, EYES: PERRL, conj clear, ENT: Membranes moist, NECK: Supple, RESP: No res p distress, CV: Reg rate rhythm, ABD: Soft/non-tender , EXT: No gross abnormality, SKIN: No rashes, Warm/ dry, NEURO: alert orient/age, NEURO: cj ss movement NL, PSYCH: ment status NL/ age Focused PE Genitourinary General Exam deferred Interpretation Diagnostics Lab Results Interpretation Results Laboratory Tests 10/05/20209: [Embedded Image Not Available] Laboratory Tests: 10/05 021 Chemistry Sodium (134 - 147 mEq/L) 138 Potassium (4.0 - 6.4 mEq/L) 3.8 L Chloride (100 - 108 mEq/L) 106 Carbon Dioxide (21 - 33 mEq/l) 23 Anion Gap (0 - 20) 13 BUN (7 - 18 mg/dL) 5 L Creatinine (0.2 - 0.5 mg/dL) 0.4 Glucose (60 - 110 mg/dL) 91 Calcium (8.0 - 10.5 mg/dL) 9.5 Hematology WBC (6.0 - 17.0 x10 3/uL) 12.5 RBC (4.2 - 5.4 x10 6/uL) 3.85 L Hgb (8.9 - 13.5 g/dL) 11.7 Hct (31.0 - 41.0 %) 35.4 MCV (77.0 - 87.0 fL) 91.9 H MCH (25.0 - 29.0 pg) 30.4 H MCHC (33.0 - 37.0 g/dL) 33.1 RDW (11.5 - 14.5 %) 13.5 Plt Count (150 - 400 x10 3/uL) 259 MPV (7.0 - 9.0 fL) 10.3 H Neut % (Auto) (32.0 - 54.0 %) 58.4 H Lymph % (Auto) (28.0 - 48.0 %) 33.4 [place] % (Auto) (3.0 - 15.0 %) 6.3 Eos % (Auto) (1.0 - 8.0 %) 1.1 Baso % (Auto) (0.0 - 2.0 %) 0.5 Neut # (Auto) (2.0 - 3.2 x10 3/uL) 7.28 H Lymph # (Auto) (1.0 - 3.8 x10 3/uL) 4.17 H [place] # (Auto) (0.1 - 0.8 x10 3/uL) 0.78 Eos # (Auto) (0.0 - 0.4 x10 3/uL) 0.14 Baso # (Auto) (0.0 - 0.2 x10 3/uL) 0.06 Abs Immat Gran (auto) (0.00 - 0.03 x10 3/uL) 0 .04 H Add Manual Diff NO Immature Gran % (0.0 - 2.0 %) 0.3 Nucleated RBC % (0 - 0 %) 0.0 Nucleated RBCs # (Man) (0.0 - 0.1 x10 3/uL) 0.0 0 Miscellaneous Maternal Serum HCG 74508.3 Urines Urine Color (YEL/STRAW) YELLOW Urine Appearance (CLEAR) CLEAR Urine pH (5.0 - 7.0) 5.0 Ur Specific [place] (1.005 - 1.030) 1.017 Urine Protein (NEGATIVE) NEGATIVE Urine Glucose (UA) (NEGATIVE) NEGATIVE Urine Ketones (NEGATIVE) 2+ H Urine Blood (NEGATIVE) 2+ H Urine Nitrite (NEGATIVE) NEGATIVE Urine Bilirubin (NEGATIVE) NEGATIVE Urine Urobilinogen (0.2 - 1.0 mg/dL) 0.2 Ur Leukocyte Esterase (NEGATIVE) NEGATIVE Urine RBC (0 - 3 RBC/HPF) 0-3 Urine WBC (0 - 3 WBC/HPF) 0-3 Ur Squamous Epith Cells (NONE SEEN /HPF) 0-5 Urine Bacteria (NONE SEEN /HPF) TRACE Urine Mucus (NONE SEEN /LPF) TRACE Recent Impressions: ULTRASOUND - DUP AB/PEL/SC/LTD 10/05 209 Report Impression - Status: SIGNED Entered: 10/05/2020221 IMPRESSION: Normal single live intrauterine at 13 weeks 0 days. SL: TPAINTER-H Impression By: Tiffanie Avila M.D. ULTRASOUND - US PREG 1ST TRIMTR 10/05 209 Report Impression - Status: SIGNED Entered: 10/05/2020221 IMPRESSION: Normal single live intrauterine at 13 weeks 0 days. SL: TPAINTER-H Impression By: Tiffanie Avila M.D. Lab Imaging Statement Laboratory radiographic studies reviewed and con sidered in the medical decision-making. Re-Evaluation MDM Re-Evaluation/Progress Re-Evaluation/Progress Time of Re-Eval 0332 Re-Eval Status Improved Plan Post Re-Eval Plan discharge ED Course Medication(s) Ordered Medication(s) Ordered: Autonomic Drugs Sig/Victoriano Start time Last Medication Dose Route Stop Time Status Admin Dicyclomine HCl 20 MG X1ED STA 10/05 0145 DC 0 10/05 PO 10/05 0146 0157 Electrolytic, Caloric, And Gregor Sig/Victoriano Start time Last Medication Dose Route Stop Time Status Admin Sodium Chloride 0 ASDIR PRN 10/05 0130 DCD IV 10/06 0016 Patient Discharge Departure Vital Signs/Condition Vital Signs First Documented: Result Date Time Pulse Ox 99 10/05 0139 B/P 110/67 10/05 0139 B/P Mean 81 10/05 0139 O2 Delivery Room air 10/05 0139 Temp 37.2 10/05 0139 Pulse 99 10/05 0139 Resp 18 10/05 0139 Last Documented: Result Date Time Pulse Ox 99 10/05 0401 B/P 108/65 10/05 0401 B/P Mean 79 10/05 0401 Pulse 81 10/05 0401 Resp 16 10/05 0401 O2 Delivery Room air 10/05 0139 Temp 37.2 10/05 0139 All vital signs available at the time of this en try have been reviewed. Condition Improved Clinical Impression Clinical Impression Primary Impression: Threatened Disposition Decision Discharge )( Discharged to Home Yes )( Time 033 )( Date 10/05/20 Discharge/Care Plan Counseled Regarding Diagnosi s, Lab results, Imaging studies, Prescriptions, Need for follow-up, When to return to ED (Auto) Prescriptions Current Visit Scripts ONDANSETRON ODT (ZOFRAN ODT) 4 MG PO Q6H PRN PRN NAUSEA/VOMITING ONDANSETRON ODT (ZOFRAN ODT) 4 MG PO Q6H PRN DC N NAUSEA/VOMITING #15 TABS DICYCLOMINE (BENTYL) 20 MG PO QID DICYCLOMINE (BENTYL) 20 MG PO QID #30 TABS Patient Instructions ED Abdo farheen Pain, Early , ED Possible Miscarriage ... Additional Instructions TYLENOL DIRECTED at 2314 RPT #:[id number] END OF REPORT 2020-08-22 20:42:00-00:00 [facility] ([facility]) EMERGENCY PROVIDER REPORT REPORT#:[id number] REPORT STATUS: Signed DATE:08/22/20 TIME: 2041 PATIENT: LUIS EDMONDS UNIT #: [id number] ROOM/BED: AGE: 19 SEX: F PCP PHYS: Elina Rome MD SERVICE AUTHOR: Cathy Bruce * ALL edits or amendments must be made on the el [employer] Manager/computer document * HPI- Female Free Text HPI Notes Free Text HPI Notes 19-year-old female G1, 6 weeks EGA with LM presents to ED after positive test [facility] wildlife agent's office jonnie loyd today. She reports associated nausea, vomiting, lower pelvic crampi ng after "stressful conversations.". She denies dysuria, hem aturia, vaginal bleeding or discharge. General Confirmed Patient Yes Initial Greet Date/Time 08/22/20 2018 Presentation Chief Complaint Pelvic pain Hx Obtained From Patient )( Sudden in Onset? No Risk- Female Risk Stratification Ectopic Risk factors reviewed Review of Systems ROS Statements All systems rev neg except as marked. Free Text ROS Notes Free Text ROS Notes Gen: No F/C Lungs: No cough, wheezing, S OB, DURÁN, trouble breathing, or pleuritic chest pain Heart: No Chest pain, DURÁN, peripheral edema, ort hopnea, PND, palpitations Abd: Denies abdominal pain. Nausea with nonblood y nonbilious emesis. No diarrhea. No melena, hematochezia, or hematemesi s : No dysuria, Hematuria, urinary frequency, ur gency, no vaginal bleeding or discharge. No h/o STD. No vaginal lesions. Mild pelvic cramping. Skin: No rashes or lesions Ext: No pain, swelling, or deformity Back: No flank pain Neuro: No headache, lightheadedness, dizziness Past Medical History - Adult Stated Complaint "ABD PAIN/BACK PAIN" LMP Allergies Uncoded Allergies: MALIC ACID (Severe, TONGUE SWELLING, THROAT CLOS ING 12/24/17) Home Medications Reported Medications IBUPROFEN (MOTRIN) 800 MG PO TID Past Medical History: Reports: Asthma. Denies: Diabetes mellitus, GERD /gastritis, Hypertension, Kidney disease/stones, Seizure disorder. Additional Medical History chronic pinched nerve Physical Exam Vital Signs Vital Signs First Documented: Result Date Time Pulse Ox 99 08/22 2040 B/P 122/64 08/22 2040 B/P Mean 83 08/22 2040 O2 Delivery Room air 08/22 2040 Temp 37.0 08/22 2040 Pulse 99 08/22 2040 Resp 16 08/22 2040 Last Documented: Result Date Time Pulse Ox 99 08/22 2241 B/P 120/68 08/22 2241 B/P Mean 85 08/22 2241 O2 Delivery Room air 08/22 2241 Temp 36.8 08/22 2241 Pulse 80 08/22 2241 Resp 16 08/22 2241 Review of Vital Signs Reviewed Focused PE Genitourinary General Exam deferred Free Text PE Notes Free Text PE Notes Gen: Well appearing, well hydrated, cooperative Head: Normocephalic, atraumatic Eyes:, Anicteric sclera, No conjunctival injecti on or exudate Throat: Airway patent, mucous membranes moist Neck: FROM, no midline TTP or meningismus Lungs: CTAB no R/R/W, good air movement. No str idor or accessory muscle use. Heart: RRR no m/g/r. No peripheral edema Abd: S/NT/ND no rebound, guarding, or peritoneal sxs. No palpable masses or pulsetile masses. Negative [place] Sign. No TTP at [place] Ext: FROM BUE/LE. No swellin g or deformity. Calves supple bilaterally. 2+ distal pulses, NVI Neuro: A O x 3, GCS 15, CN I-XII grossly intact without focal deficit. Psych: Normal mood and affect. Interpretation Diagnostics Lab Results Interpretation Results Laboratory Tests 08/22/20 2100: [Embedded Image Not Available] Laboratory Tests: 08/22 08/22 2100 2100 Chemistry Sodium (134 - 147 mEq/L) 137 Potassium (4.0 - 6.4 mEq/L) 3.4 L Chloride (100 - 108 mEq/L) 104 Carbon Dioxide (21 - 33 mEq/l) 25 Anion Gap (0 - 20) 12 BUN (7 - 18 mg/dL) 6 L Creatinine (0.2 - 0.5 mg/dL) 0.6 H Glucose (60 - 110 mg/dL) 95 Calcium (8.0 - 10.5 mg/dL) 9.9 Hematology WBC (6.0 - 17.0 x10 3/uL) 10.5 RBC (4.2 - 5.4 x10 6/uL) 4.29 Hgb (8.9 - 13.5 g/dL) 12.6 Hct (31.0 - 41.0 %) 38.5 MCV (77.0 - 87.0 fL) 89.7 H MCH (25.0 - 29.0 pg) 29.4 H MCHC (33.0 - 37.0 g/dL) 32.7 L RDW (11.5 - 14.5 %) 12.1 Plt Count (150 - 400 x10 3/uL) 325 MPV (7.0 - 9.0 fL) 10.7 H Neut % (Auto) (32.0 - 54.0 %) 61.9 H Lymph % (Auto) (28.0 - 48.0 %) 30.6 [place] % (Auto) (3.0 - 15.0 %) 5.9 Eos % (Auto) (1.0 - 8.0 %) 0.6 L Baso % (Auto) (0.0 - 2.0 %) 0.7 Neut # (Auto) (2.0 - 3.2 x10 3/uL) 6.51 H Lymph # (Auto) (1.0 - 3.8 x10 3/uL) 3.22 [place] # (Auto) (0.1 - 0.8 x10 3/uL) 0.62 Eos # (Auto) (0.0 - 0.4 x10 3/uL) 0.06 Baso # (Auto) (0.0 - 0.2 x10 3/uL) 0.07 Abs Immat Gran (auto) (0.00 - 0.03 x10 3/uL) 0. 03 Add Manual Diff NO Immature Gran % (0.0 - 2.0 %) 0.3 Nucleated RBC % (0 - 0 %) 0.0 Nucleated RBCs # (Man) (0.0 - 0.1 x10 3/uL) 0.0 0 Miscellaneous Maternal Serum HCG 35942.6 Urines Urine Color (YEL/STRAW) STRAW Urine Appearance (CLEAR) CLEAR Urine pH (5.0 - 7.0) 6.0 Ur Specific [place] (1.005 - 1.030) 1.008 Urine Protein (NEGATIVE) NEGATIVE Urine Glucose (UA) (NEGATIVE) NEGATIVE Urine Ketones (NEGATIVE) NEGATIVE Urine Blood (NEGATIVE) NEGATIVE Urine Nitrite (NEGATIVE) NEGATIVE Urine Bilirubin (NEGATIVE) NEGATIVE Urine Urobilinogen (0.2 - 1.0 mg/dL) 0.2 Ur Leukocyte Esterase (NEGATIVE) NEGATIVE Urine RBC (0 - 3 RBC/HPF) 0-3 Urine WBC (0 - 3 WBC/HPF) 0-3 Ur Squamous Epith Cells (NONE SEEN /HPF) 0-5 Urine Bacteria (NONE SEEN /HPF) NONE SEEN Urine Mucus (NONE SEEN /LPF) TRACE Urine HCG, Qual (NEGATIVE) POSITIVE Recent Impressions: ULTRASOUND - DUP AB/PEL/SC/LTD 08/22 2199 Report Impression - Status: SIGNED Entered: 08/22/20202209 IMPRESSION: Single viable intrauterine of estimated sonographic gestational age of 6 weeks 4 days. SL: KEI-H Impression By: Phil - Judah Izquierdo M.D. ULTRASOUND - US PREG 1ST TRIMTR 08/22 2199 Report Impression - Status: SIGNED Entered: 08/22/20202209 IMPRESSION: Single viable intrauterine of estimated sonographic gestational age of 6 weeks 4 days. SL: KEI-H Impression By: [email or web address] - Judah Izquierdo M.D. Lab Imaging Statement Laboratory radiographic studies reviewed and con sidered in the medical decision-making. Re-Evaluation MDM Re-Evaluation/Progress Re-Evaluation/Progress Text/Dict Note reviewewd imaging and labs Time of Re-Eval 2224 Re-Eval Status Unchanged ED Course Medication(s) Ordered Medication(s) Ordered: Electrolytic, Caloric, And Gregor Sig/Victoriano Start time Last Medication Dose Route Stop Time Status Admin Sodium Chloride 1,000 ML BOLUS ONCE ONE 08/22 2 045 DC 08/22 IV 08/22 Gastrointestinal Drugs Sig/Victoriano Start time Last Medication Dose Route Stop Time Status Admin Ondansetron HCl 4 MG X1ED STA 08/22 2040 DC IV 08/22 Patient Discharge Departure Vital Signs/Condition Vital Signs First Documented: Result Date Time Pulse Ox 99 08/22 2040 B/P 122/64 08/22 2040 B/P Mean 83 08/22 2040 O2 Delivery Room air 08/22 2040 Temp 37.0 08/22 2040 Pulse 99 08/22 2040 Resp 16 08/22 2040 Last Documented: Result Date Time Pulse Ox 99 08/22 2241 B/P 120/68 08/22 2241 B/P Mean 85 08/22 2241 O2 Delivery Room air 08/22 2241 Temp 36.8 08/22 2241 Pulse 80 08/22 2241 Resp 16 08/22 2241 All vital signs available at the time of this en try have been reviewed. Clinical Impression Clinical Impression Primary Impression: Early stage of Disposition Decision Discharge )( Discharged to Home Yes )( Time 2224 )( Date 08/22/20 Discharge/Care Plan Counseled Regarding Diagnosi s, Lab results, Imaging studies, Medication changes, Prescriptions (Auto) Prescriptions Current Visit Scripts ONDANSETRON ODT (ZOFRAN ODT) 4 MG PO Q6H PRN PRN NAUSEA/VOMITING ONDANSETRON ODT (ZOFRAN ODT) 4 MG PO Q6H PRN DC N NAUSEA/VOMITING #15 TABS Prescriptions Reviewed Risks, Benefits, Alternat ashley treatment Patient Instructions ED Abdominal Pain, Early Pr egnancy, ED Hyperemesis Gravidarum Additional Instructions Return to ED if severe pain, fever > 102, worsen ing symptoms Referrals Akajagbor,Edesiri MD Discharge Note I have spoken with the patie nt and/or caregivers. I have explained the patient's condition, diagnoses and margot atment plan based on the information available to me at this time. I have answered the patient's and/ or caregiver's questions and addressed any concerns. The patient and/or careg jammie have as good an understanding of the patient 's diagnosis, condition and treatment plan as can be expected at this point. The vital signs have bee n stable. The patient's condition is stable and appr opriate for discharge from the emergency department. The patient will pursue further outpatient evalu ation with the primary care physician or other designated or consulting phys ician as outlined in the discharge instructions. The patient and/or caregivers are agreeable to this plan of care and follow-up instructions have been exp lained in detail. The patient and/or caregivers have received these instructio ns in written format and have expressed an understanding of the discharge inst ructions. The patient and/or caregivers are aware that any significant change in condition or worsening of symptoms should prompt an immediate return to [facility] or the closest emergency department or a call to 911. 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 She reports associated nausea, vomiting, lower pelvic crampi ng after "stressful conversations.". She denies dysuria, hem aturia, vaginal bleeding or discharge. General Confirmed Patient Yes Presentation Chief Complaint Pelvic pain Hx Obtained From Patient )( Sudden in Onset? No Risk- Female Risk Stratification Ectopic Risk factors reviewed Review of Systems ROS Statements All systems rev neg except as marked. Free Text ROS Notes Free Text ROS Notes Gen: No F/C Lungs: No cough, wheezing, S OB, DURÁN, trouble breathing, or pleuritic chest pain Heart: No Chest pain, DURÁN, peripheral edema, ort hopnea, PND, palpitations Abd: Denies abdominal pain. Nausea with nonblood y nonbilious emesis. No diarrhea. No melena, hematochezia, or hematemesi s : No dysuria, Hematuria, urinary frequency, ur gency, no vaginal bleeding or discharge. No h/o STD. No vaginal lesions. Mild pelvic cramping. Skin: No rashes or lesions Ext: No pain, swelling, or deformity Back: No flank pain Neuro: No headache, lightheadedness, dizziness Past Medical History - Adult Stated Complaint "ABD PAIN/BACK PAIN" LMP Allergies Uncoded Allergies: MALIC ACID (Severe, TONGUE SWELLING, THROAT CLOS ING 12/24/17) Home Medications Reported Medications IBUPROFEN (MOTRIN) 800 MG PO TID Past Medical History: Reports: Asthma. Denies: Diabetes mellitus, GERD /gastritis, Hypertension, Kidney disease/stones, Seizure disorder. Additional Medical History chronic pinched nerve Physical Exam Vital Signs Vital Signs First Documented: Result Date Time Pulse Ox 99 08/22 2040 B/P 122/64 08/22 2040 B/P Mean 83 08/22 2040 O2 Delivery Room air 08/22 2040 Temp 37.0 08/22 2040 Pulse 99 08/22 2040 Resp 16 08/22 2040 Last Documented: Result Date Time Pulse Ox 99 08/22 2241 B/P 120/68 08/22 2241 B/P Mean 85 08/22 2241 O2 Delivery Room air 08/22 2241 Temp 36.8 08/22 2241 Pulse 80 08/22 2241 Resp 16 08/22 2241 Review of Vital Signs Reviewed Focused PE Genitourinary General Exam deferred Free Text PE Notes Free Text PE Notes Gen: Well appearing, well hydrated, cooperative Head: Normocephalic, atraumatic Eyes:, Anicteric sclera, No conjunctival injecti on or exudate Throat: Airway patent, mucous membranes moist Neck: FROM, no midline TTP or meningismus Lungs: CTAB no R/R/W, good air movement. No str idor or accessory muscle use. Heart: RRR no m/g/r. No peripheral edema Abd: S/NT/ND no rebound, guarding, or peritoneal sxs. No palpable masses or pulsetile masses. Negative [place] Sign. No TTP at [place] Ext: FROM BUE/LE. No swellin g or deformity. Calves supple bilaterally. 2+ distal pulses, NVI Neuro: A O x 3, GCS 15, CN I-XII grossly intact without focal deficit. Psych: Normal mood and affect. Interpretation Diagnostics Lab Results Interpretation Results Laboratory Tests 08/22/20 2100: [Embedded Image Not Available] Laboratory Tests: 08/22 08/22 2100 2100 Chemistry Sodium (134 - 147 mEq/L) 137 Potassium (4.0 - 6.4 mEq/L) 3.4 L Chloride (100 - 108 mEq/L) 104 Carbon Dioxide (21 - 33 mEq/l) 25 Anion Gap (0 - 20) 12 BUN (7 - 18 mg/dL) 6 L Creatinine (0.2 - 0.5 mg/dL) 0.6 H Glucose (60 - 110 mg/dL) 95 Calcium (8.0 - 10.5 mg/dL) 9.9 Hematology WBC (6.0 - 17.0 x10 3/uL) 10.5 RBC (4.2 - 5.4 x10 6/uL) 4.29 Hgb (8.9 - 13.5 g/dL) 12.6 Hct (31.0 - 41.0 %) 38.5 MCV (77.0 - 87.0 fL) 89.7 H MCH (25.0 - 29.0 pg) 29.4 H MCHC (33.0 - 37.0 g/dL) 32.7 L RDW (11.5 - 14.5 %) 12.1 Plt Count (150 - 400 x10 3/uL) 325 MPV (7.0 - 9.0 fL) 10.7 H Neut % (Auto) (32.0 - 54.0 %) 61.9 H Lymph % (Auto) (28.0 - 48.0 %) 30.6 [place] % (Auto) (3.0 - 15.0 %) 5.9 Eos % (Auto) (1.0 - 8.0 %) 0.6 L Baso % (Auto) (0.0 - 2.0 %) 0.7 Neut # (Auto) (2.0 - 3.2 x10 3/uL) 6.51 H Lymph # (Auto) (1.0 - 3.8 x10 3/uL) 3.22 [place] # (Auto) (0.1 - 0.8 x10 3/uL) 0.62 Eos # (Auto) (0.0 - 0.4 x10 3/uL) 0.06 Baso # (Auto) (0.0 - 0.2 x10 3/uL) 0.07 Abs Immat Gran (auto) (0.00 - 0.03 x10 3/uL) 0 .03 Add Manual Diff NO Immature Gran % (0.0 - 2.0 %) 0.3 Nucleated RBC % (0 - 0 %) 0.0 Nucleated RBCs # (Man) (0.0 - 0.1 x10 3/uL) 0.0 0 Miscellaneous Maternal Serum HCG 17386.6 Urines Urine Color (YEL/STRAW) STRAW Urine Appearance (CLEAR) CLEAR Urine pH (5.0 - 7.0) 6.0 Ur Specific [place] (1.005 - 1.030) 1.008 Urine Protein (NEGATIVE) NEGATIVE Urine Glucose (UA) (NEGATIVE) NEGATIVE Urine Ketones (NEGATIVE) NEGATIVE Urine Blood (NEGATIVE) NEGATIVE Urine Nitrite (NEGATIVE) NEGATIVE Urine Bilirubin (NEGATIVE) NEGATIVE Urine Urobilinogen (0.2 - 1.0 mg/dL) 0.2 Ur Leukocyte Esterase (NEGATIVE) NEGATIVE Urine RBC (0 - 3 RBC/HPF) 0-3 Urine WBC (0 - 3 WBC/HPF) 0-3 Ur Squamous Epith Cells (NONE SEEN /HPF) 0-5 Urine Bacteria (NONE SEEN /HPF) NONE SEEN Urine Mucus (NONE SEEN /LPF) TRACE Urine HCG, Qual (NEGATIVE) POSITIVE Recent Impressions: ULTRASOUND - DUP AB/PEL/SC/LTD 08/22 2199 Report Impression - Status: SIGNED Entered: 08/22/20202209 IMPRESSION: Single viable intrauterine of estimated sonographic gestational age of 6 weeks 4 days. SL: BALJINDER Impression By: Phil Izquierdo M.D. ULTRASOUND - US PREG 1ST TRIMTR 08/22 2199 Report Impression - Status: SIGNED Entered: 08/22/20202209 IMPRESSION: Single viable intrauterine of estimated sonographic gestational age of 6 weeks 4 days. SL: BALJINDER Impression By: Phil Izquierdo M.D. Lab Imaging Statement Laboratory radiographic studies reviewed and con sidered in the medical decision-making. Re-Evaluation MDM Re-Evaluation/Progress Re-Evaluation/Progress Text/Dict Note reviewewd imaging and labs Time of Re-Eval 2224 Re-Eval Status Unchanged ED Course Medication(s) Ordered Medication(s) Ordered: Electrolytic, Caloric, And Gregor Sig/Victoriano Start time Last Medication Dose Route Stop Time Status Admin Sodium Chloride 1,000 ML BOLUS ONCE ONE 08/22 2 045 DC 08/22 IV 08/22 Gastrointestinal Drugs Sig/Victoriano Start time Last Medication Dose Route Stop Time Status Admin Ondansetron HCl 4 MG X1ED STA 08/22 2040 DC IV 08/22 Patient Discharge Departure Vital Signs/Condition Vital Signs First Documented: Result Date Time Pulse Ox 99 08/22 2040 B/P 122/64 08/22 2040 B/P Mean 83 08/22 2040 O2 Delivery Room air 08/22 2040 Temp 37.0 08/22 2040 Pulse 99 08/22 2040 Resp 16 08/22 2040 Last Documented: Result Date Time Pulse Ox 99 08/22 2241 B/P 120/68 08/22 2241 B/P Mean 85 08/22 2241 O2 Delivery Room air 08/22 2241 Temp 36.8 08/22 2241 Pulse 80 08/22 2241 Resp 16 08/22 2241 All vital signs available at the time of this en try have been reviewed. Clinical Impression Clinical Impression Primary Impression: Early stage of Disposition Decision Discharge )( Discharged to Home Yes )( Time 2224 )( Date 08/22/20 Discharge/Care Plan Counseled Regarding Diagnosi s, Lab results, Imaging studies, Medication changes, Prescriptions (Auto) Prescriptions Current Visit Scripts ONDANSETRON ODT (ZOFRAN ODT) 4 MG PO Q6H PRN PRN NAUSEA/VOMITING ONDANSETRON ODT (ZOFRAN ODT) 4 MG PO Q6H PRN DC N NAUSEA/VOMITING #15 TABS Prescriptions Reviewed Risks, Benefits, Alternat ashley treatment Patient Instructions ED Abdominal Pain, Early Pr egnancy, ED Hyperemesis Gravidarum Additional Instructions Return to ED if severe pain, fever > 102, worsen ing symptoms Referrals Cricket Bolden MD Discharge Note I have spoken with the patie nt and/or caregivers. I have explained the patient's condition, diagnoses and margot atment plan based on the information available to me at this time. I have answered the patient's and/ or caregiver's questions and addressed any concerns. The patient and/or careg jammie have as good an understanding of the patient 's diagnosis, condition and treatment plan as can be expected at this point. The vital signs have bee n stable. The patient's condition is stable and appr opriate for discharge from the emergency department. The patient will pursue further outpatient evalu ation with the primary care physician or other designated or consulting phys ician as outlined in the discharge instructions. The patient and/or caregivers are agreeable to this plan of care and follow-up instructions have been exp lained in detail. The patient and/or caregivers have received these instructio ns in written format and have expressed an understanding of the discharge inst ructions. The patient and/or caregivers are aware that any significant change in condition or worsening of symptoms should prompt an immediate return to [facility] or the closest emergency department or a call to 911. Loi Hassan. 08/24/20 2338: HPI- Female General Initial Greet Date/Time 08/22/20 2018 Patient Discharge Departure Supervising Physician Note MidLv Saw Pt Alone I have reviewed the PA/SUPERVISOR PUMPING's note and plan of car e. I was available for consultation as needed at al l times during the patient's visit in the emergency department. I agree with the clinical impression , plan and disposition. at 2346 at 2332 RPT #:[id number] END OF REPORT 2020-02-15 23:20:00-00:00 [facility] ([facility]) EMERGENCY PROVIDER REPORT REPORT#:[id number] REPORT STATUS: Signed DATE:02/15/20 TIME: 2319 PATIENT: LUIS EDMONDS UNIT #: [id number] ROOM/BED: AGE: 19 SEX: F PCP PHYS: Elina Rome MD SERVICE AUTHOR: Amilcar Pablo SUPERVISOR [employer]ING * ALL edits or amendments must be made on the [employer]/computer document * HPI-General Illness Free Text HPI Notes Free Text HPI Notes 19-year-old female with past medical his tory of asthma presents to the ER with mother with complaint of fev er, sore throat, nausea, right ear pain and enlarged R cervical lymph node onset today. Pt to ok 2 tabs of motrin earlier today. She denies any cough, congestion, SOB, wheez ing, abd pain, v/d, dysuria, hematuria or vaginal discharge. No known Covid exposures. General Initial Greet Date/Time 02/15/205 Presentation Chief Complaint Fever, Sore throat Hx Obtained From Patient, PARENT Review of Systems ROS Statements All systems rev neg except as marked. Review of Systems Constitutional Reports: Fever. Ears/Nose/Throat Reports: Earache R, Sore throat. Denies: Nasal c ongestion. Respiratory Denies: Cough, non-productiv e, Cough, productive, Shortness of breath, Wheezing. GI Reports: Nausea. Denies: Abdominal pain, Diarrhe a, Vomiting. Female Denies: Flank pain, Hematuria, Vaginal discharge . Past Medical History - Adult Stated Complaint FEVER, SORE THROAT, BODY ACHES, Allergies Uncoded Allergies: MALIC ACID (Severe, TONGUE SWELLING, THROAT CLOS ING 12/24/17) Home Medications Reported Medications IBUPROFEN (MOTRIN) 800 MG PO TID Past Medical History: Reports: Asthma. Denies: Diabetes mellitus, GERD /gastritis, Hypertension, Kidney disease/stones, Seizure disorder. Additional Medical History chronic pinched nerve Additional Surgical History tonsilectomy Smoking status for patients 13 years old or olde r: Never Smoker Physical Exam Vital Signs Vital Signs First Documented: Result Date Time Pulse Ox 100 07/30 2308 B/P 112/63 02/15 2308 B/P Mean 79 02/15 2308 O2 Delivery Room air 02/15 2308 Temp 39.1 02/15 2308 Pulse 117 02/15 2308 Resp 02/14 Last Documented: Result Date Time Pulse Ox 99 02/16 328 B/P 96/55 02/16 328 B/P Mean 68 02/16 328 O2 Delivery Room air 02/16 328 Temp 36.8 02/16 328 Pulse 83 02/16 328 Resp 18 02/16 328 Review of Vital Signs Reviewed Free Text PE Notes Free Text PE Notes Gen: Well developed, acutely ill but non-toxic a ppearance. smells of smoke Head: Normocephalic Eyes: Pupils midline, sclera NL, no periorbital edema, conjunctiva normal Ears: TMs intact bilaterally with good landmarks , no erythema. EAC patent without swelling, erythema, or drainage. No mast oid swelling or TTP Nose: no nasal drainage or mucosal edema Throat: Moist mucous membranes, handling secreti ons. Airway patent. OP clear without exudates or petechia. Tonsils surgically absent. Mild protrusion of R posterior upper palate without obvious abscess Neck: Supple, FROM, no meningismus, + R anterior cervical adenopathy Lungs: CTA all lobes. Respirations NL. N o wheezing, No rhonchi, No dyspnea. No stridor or accessory muscle use. Heart: Regular rhythm, No murmurs. tachycardia c /w fever Abd: Soft, non-tender, non-distended. No rebound, guarding, or peritoneal sxs. No palpable masses or pulsatile masses. No TTP a t [place] Ext: No obvious deformity Neuro: awake and alert, speech NL for age, behav ior age-appropriate. Interpretation Diagnostics Lab Results Interpretation Results Laboratory Tests 02/15/202325: [Embedded Image Not Available] Laboratory Tests: 02/14 2326 Chemistry Sodium (134 - 147 mEq/L) 134 Potassium (4.0 - 6.5 mEq/L) 3.7 L Chloride (100 - 108 mEq/L) 102 Carbon Dioxide (21 - 33 mEq/L) 26 Anion Gap (0 - 20) 10 BUN (7 - 18 mg/dL) 10 Creatinine (0.6 - 1.3 mg/dL) 0.6 Glucose (60 - 110 mg/dL) 94 Calcium (8.0 - 10.5 mg/dL) 9.1 Total Bilirubin (<1.5 MG/DL) 0.4 AST (15 - 37 IUnit/L) 5 L ALT (15 - 65 IUnit/L) 18 Total Alk Phosphatase (60 - 350 IUnit/L) 70 Total Protein (6.4 - 8.2 g/dL) 7.7 Albumin (3.4 - 5.0 g/dL) 4.00 Hematology WBC (4.5 - 13.0 x10 3/uL) 12.19 RBC (4.2 - 5.4 x10 6/uL) 4.24 Hgb (11.1 - 15.7 g/dL) 12.1 Hct (34.0 - 44.0 %) 37.9 MCV (77.0 - 87.0 fL) 89.4 H MCH (26.0 - 30.0 pg) 28.5 MCHC (32.0 - 36.0 g/dL) 31.9 L RDW (11.5 - 14.5 %) 14.1 Plt Count (150 - 400 x10 3/uL) 220 MPV (7.0 - 9.0 fL) 10.8 H Neut % (Auto) (32.0 - 54.0 %) 75.2 H Lymph % (Auto) (28.0 - 48.0 %) 13.9 L [place] % (Auto) (3.0 - 15.0 %) 10.0 Eos % (Auto) (1.0 - 8.0 %) 0.0 L Baso % (Auto) (0.0 - 2.0 %) 0.4 Neut # (Auto) (2.0 - 3.2 x10 3/uL) 9.16 H Lymph # (Auto) (1.0 - 3.8 x10 3/uL) 1.70 [place] # (Auto) (0.1 - 0.8 x10 3/uL) 1.22 H Eos # (Auto) (0.0 - 0.4 x10 3/uL) 0.00 Baso # (Auto) (0.0 - 0.2 x10 3/uL) 0.05 Abs Immat Gran (auto) (0.00 - 0.03 x10 3/uL) 0. 06 H Add Manual Diff NO Immature Gran % (0.0 - 2.0 %) 0.5 Nucleated RBC % (0 - 0 %) 0.0 Nucleated RBCs # (Man) (0.0 - 0.1 x10 3/uL) 0.0 0 Serology Monoscreen (NEGATIVE) NEGATIVE Urines Urine Color (YEL/STRAW) YELLOW Urine Appearance (CLEAR) CLEAR Urine pH (5.0 - 7.0) 6.0 Ur Specific [place] (1.005 - 1.030) 1.015 Urine Protein (NEGATIVE) NEGATIVE Urine Glucose (UA) (NEGATIVE) NEGATIVE Urine Ketones (NEGATIVE) NEGATIVE Urine Blood (NEGATIVE) 2+ H Urine Nitrite (NEGATIVE) NEGATIVE Urine Bilirubin (NEGATIVE) NEGATIVE Urine Urobilinogen (0.2 - 1.0 mg/dL) 0.2 Ur Leukocyte Esterase (NEGATIVE) NEGATIVE Urine RBC (0 - 3 RBC/HPF) 0-3 Urine WBC (0 - 3 WBC/HPF) 0-3 Ur Squamous Epith Cells (NONE SEEN /HPF) 0-5 Urine Bacteria (NONE SEEN /HPF) TRACE Urine Mucus (NONE SEEN /LPF) 1+ Urine HCG, Qual (NEGATIVE) NEGATIVE Microbiology: Date/Time Procedure - Status Source Growth 02/15 2320 Group A Streptococcus Screen (KATEY) - RES THROAT 02/15 2320 Streptococcus Culture - RES THROAT Recent Impressions: CAT SCAN - CT NECK W/CONTRAST 02/15 0134 Report Impression - Status: SIGNED Entered: 02/16/2020 0239 IMPRESSION: 1. Enlarged neck lymph nodes bilaterally. Differ ential consideration would include inflammatory/infectious or metasta tic adenopathy. 2. Enlarged right aspect of lingual tonsils. Al though this may be due to infectious/inflammatory process, follow-u p to resolution recommended. SL: TORI-H Impression By: [email or web address] Pati Wolfe M.D. Lab Imaging Statement Laboratory radiographic studies reviewed and con sidered in the medical decision-making. Point of Care Testing Pulse Oximetry Pulse Ox % 100 On: Room air Interpretation Interpreted by me, Pulse oximetr y normal Time 0128 Re-Evaluation MDM Free Text MDM Notes Free Text MDM Notes Pt notes R cervical lymphadenopathy that has bee n fluctuant in size for 2-3 years, noting she failed to get bx that was suggested. I advised mother and pt on life threatening risks of lymphadenopathy and advised close OP f/u. Given fever in addition to lymphadenopathy, will cover with empiric ATB therapy. Re-Evaluation/Progress #1 Text/Dict Note Patient reassessed. Patient remains awake, alert , oriented, respirations nonlabored, appears comforta ble and is ambulatory with steady gait. I discussed all results, most likely diagnosis, at home dwight mmendations, ED return precautions and advised follow-up with PCP IN 3- 10 DAYS FOR RE-EVAL OF LYMPHADENOPATHY Time of Re-Eval 0252 ED Course Medication(s) Ordered Medication(s) Ordered: Anti-Infective Agents Sig/Victoriano Start time Last Medication Dose Route Stop Time Status Admin Ceftriaxone Sodium 1,000 MG X1ED STA 02/15 2320 DC 02/14 Sodium Chloride 10 ML IV 02/14 2322 232 Central Nervous System Agents Sig/Victoriano Start time Last Medication Dose Route Stop Time Status Admin Acetaminophen 1,000 MG X1ED STA 02/142 DC 0 02/14 PO 02/14 2313 2320 Diagnostic Agents Sig/Victoriano Start time Last Medication Dose Route Stop Time Status Admin Iopamidol 70 ML .STK-MED ONE 02/16 136 DC 01/18 1 IV 02/15 137 0136 Electrolytic, Caloric, And Gregor Sig/Victoriano Start time Last Medication Dose Route Stop Time Status Admin Sodium Chloride 1,000 ML X1ED STA 02/142 DC 02/14 IV 02/14 2313 2321 Eye, Ear, Nose And Throat (Een Sig/Victoriano Start time Last Medication Dose Route Stop Time Status Admin Dexamethasone Sodium 10 MG X1ED STA 02/15 2312 DC 02/14 Phosphate IV 02/14 2313 2321 Gastrointestinal Drugs Sig/Victoriano Start time Last Medication Dose Route Stop Time Status Admin Ondansetron HCl 4 MG X1ED STA 02/14 2312 DC IV 02/143 2321 Patient Discharge Departure Vital Signs/Condition Vital Signs First Documented: Result Date Time Pulse Ox 100 02/15 2308 B/P 112/63 02/15 2308 B/P Mean 79 02/15 2308 O2 Delivery Room air 02/15 2308 Temp 39.1 02/15 2308 Pulse 117 02/15 2308 Resp 18 02/15 2308 Last Documented: Result Date Time Pulse Ox 99 02/15 0328 B/P 96/55 02/15 0328 B/P Mean 68 02/16 328 O2 Delivery Room air 02/16 328 Temp 36.8 02/16 328 Pulse 83 02/16 328 Resp 18 02/16 328 All vital signs available at the time of this en try have been reviewed. Condition Stable Clinical Impression Clinical Impression Primary Impression: Viral pharyngitis Secondary Impressions: Cervical lymphadenopathy, Suspected COVID-19 virus infection Disposition Decision Discharge )( Discharged to Home Yes )( Time 0251 )( Date 02/16/20 COVID-19 Discharge Plan CDC Criteria Met for Testing Yes Test Performed Yes, result pending Discharge/Care Plan Counseled Regarding Diagnosi s, Lab results, Imaging studies, Prescriptions, Need for follow-up, When to return to ED Prescriptions motrin, augmentin Referrals Elina Rome MD (PCP/Family) Electronically Signed by Amilcar Pablo NP on at 0332 RPT #:[id number] END OF REPORT 2020-02-15 23:20:00-00:00 [facility] EMERGENCY PROVIDER REPORT REPORT#:[id number] REPORT STATUS: Signed DATE:02/15/20 TIME: 2319 PATIENT: LUIS EDMONDS UNIT #: [id number] ROOM/BED: AGE: 19 SEX: F PCP PHYS: Elina Rome MD SERVICE AUTHOR: Amilcar Pablo NP * ALL edits or amendments must be made on the [employer]/computer document * Amilcar Pablo 02/15/20 2320: HPI-General Illness Free Text HPI Notes Free Text HPI Notes 19-year-old female with past medical his tory of asthma presents to the ER with mother with complaint of fev er, sore throat, nausea, right ear pain and enlarged R cervical lymph node onset today. Pt to ok 2 tabs of motrin earlier today. She denies any cough, congestion, SOB, wheez ing, abd pain, v/d, dysuria, hematuria or vaginal discharge. No known Covid exposures. Presentation Chief Complaint Fever, Sore throat Hx Obtained From Patient, PARENT Review of Systems ROS Statements All systems rev neg except as marked. Review of Systems Constitutional Reports: Fever. Ears/Nose/Throat Reports: Earache R, Sore throat. Denies: Nasal c ongestion. Respiratory Denies: Cough, non-productiv e, Cough, productive, Shortness of breath, Wheezing. GI Reports: Nausea. Denies: Abdominal pain, Diarrhe a, Vomiting. Female Denies: Flank pain, Hematuria, Vaginal discharge . Past Medical History - Adult Stated Complaint FEVER, SORE THROAT, BODY ACHES, Allergies Uncoded Allergies: MALIC ACID (Severe, TONGUE SWELLING, THROAT CLOS ING 12/24/17) Home Medications Reported Medications IBUPROFEN (MOTRIN) 800 MG PO TID Past Medical History: Reports: Asthma. Denies: Diabetes mellitus, GERD /gastritis, Hypertension, Kidney disease/stones, Seizure disorder. Additional Medical History chronic pinched nerve Additional Surgical History tonsilectomy Smoking status for patients 13 years old or olde r: Never Smoker Physical Exam Vital Signs Vital Signs First Documented: Result Date Time Pulse Ox 100 02/14 2308 B/P 112/63 02/14 2308 B/P Mean 79 02/14 2308 O2 Delivery Room air 02/14 2308 Temp 39.1 02/14 2308 Pulse 117 02/14 2308 Resp 18 02/14 2308 Last Documented: Result Date Time Pulse Ox 99 02/15 0328 B/P 96/55 02/15 0328 B/P Mean 68 02/15 0328 O2 Delivery Room air 02/15 0328 Temp 36.8 02/15 0328 Pulse 83 02/15 0328 Resp 18 02/15 0328 Review of Vital Signs Reviewed Free Text PE Notes Free Text PE Notes Gen: Well developed, acutely ill but non-toxic a ppearance. smells of smoke Head: Normocephalic Eyes: Pupils midline, sclera NL, no periorbital edema, conjunctiva normal Ears: TMs intact bilaterally with good landmarks , no erythema. EAC patent without swelling, erythema, or drainage. No mast oid swelling or TTP Nose: no nasal drainage or mucosal edema Throat: Moist mucous membranes, handling secreti ons. Airway patent. OP clear without exudates or petechia. Tonsils surgically absent. Mild protrusion of R posterior upper palate without obvious abscess Neck: Supple, FROM, no meningismus, + R anterior cervical adenopathy Lungs: CTA all lobes. Respirations NL. N o wheezing, No rhonchi, No dyspnea. No stridor or accessory muscle use. Heart: Regular rhythm, No murmurs. tachycardia c /w fever Abd: Soft, non-tender, non-distended. No rebound, guarding, or peritoneal sxs. No palpable masses or pulsatile masses. No TTP a t [place] Ext: No obvious deformity Neuro: awake and alert, speech NL for age, behav ior age-appropriate. Interpretation Diagnostics Lab Results Interpretation Results Laboratory Tests 02/15/20 2326: [Embedded Image Not Available] Laboratory Tests: 02/14 02/14 2326 2326 Chemistry Sodium (134 - 147 mEq/L) 134 Potassium (4.0 - 6.5 mEq/L) 3.7 L Chloride (100 - 108 mEq/L) 102 Carbon Dioxide (21 - 33 mEq/L) 26 Anion Gap (0 - 20) 10 BUN (7 - 18 mg/dL) 10 Creatinine (0.6 - 1.3 mg/dL) 0.6 Glucose (60 - 110 mg/dL) 94 Calcium (8.0 - 10.5 mg/dL) 9.1 Total Bilirubin (<1.5 MG/DL) 0.4 AST (15 - 37 IUnit/L) 5 L ALT (15 - 65 IUnit/L) 18 Total Alk Phosphatase (60 - 350 IUnit/L) 70 Total Protein (6.4 - 8.2 g/dL) 7.7 Albumin (3.4 - 5.0 g/dL) 4.00 Hematology WBC (4.5 - 13.0 x10 3/uL) 12.19 RBC (4.2 - 5.4 x10 6/uL) 4.24 Hgb (11.1 - 15.7 g/dL) 12.1 Hct (34.0 - 44.0 %) 37.9 MCV (77.0 - 87.0 fL) 89.4 H MCH (26.0 - 30.0 pg) 28.5 MCHC (32.0 - 36.0 g/dL) 31.9 L RDW (11.5 - 14.5 %) 14.1 Plt Count (150 - 400 x10 3/uL) 220 MPV (7.0 - 9.0 fL) 10.8 H Neut % (Auto) (32.0 - 54.0 %) 75.2 H Lymph % (Auto) (28.0 - 48.0 %) 13.9 L [place] % (Auto) (3.0 - 15.0 %) 10.0 Eos % (Auto) (1.0 - 8.0 %) 0.0 L Baso % (Auto) (0.0 - 2.0 %) 0.4 Neut # (Auto) (2.0 - 3.2 x10 3/uL) 9.16 H Lymph # (Auto) (1.0 - 3.8 x10 3/uL) 1.70 [place] # (Auto) (0.1 - 0.8 x10 3/uL) 1.22 H Eos # (Auto) (0.0 - 0.4 x10 3/uL) 0.00 Baso # (Auto) (0.0 - 0.2 x10 3/uL) 0.05 Abs Immat Gran (auto) (0.00 - 0.03 x10 3/uL) 0. 06 H Add Manual Diff NO Immature Gran % (0.0 - 2.0 %) 0.5 Nucleated RBC % (0 - 0 %) 0.0 Nucleated RBCs # (Man) (0.0 - 0.1 x10 3/uL) 0.0 0 Serology Monoscreen (NEGATIVE) NEGATIVE Urines Urine Color (YEL/STRAW) YELLOW Urine Appearance (CLEAR) CLEAR Urine pH (5.0 - 7.0) 6.0 Ur Specific [place] (1.005 - 1.030) 1.015 Urine Protein (NEGATIVE) NEGATIVE Urine Glucose (UA) (NEGATIVE) NEGATIVE Urine Ketones (NEGATIVE) NEGATIVE Urine Blood (NEGATIVE) 2+ H Urine Nitrite (NEGATIVE) NEGATIVE Urine Bilirubin (NEGATIVE) NEGATIVE Urine Urobilinogen (0.2 - 1.0 mg/dL) 0.2 Ur Leukocyte Esterase (NEGATIVE) NEGATIVE Urine RBC (0 - 3 RBC/HPF) 0-3 Urine WBC (0 - 3 WBC/HPF) 0-3 Ur Squamous Epith Cells (NONE SEEN /HPF) 0-5 Urine Bacteria (NONE SEEN /HPF) TRACE Urine Mucus (NONE SEEN /LPF) 1+ Urine HCG, Qual (NEGATIVE) NEGATIVE Microbiology: Date/Time Procedure - Status Source Growth 02/15 2320 Group A Streptococcus Screen (KATEY) - RES THROAT 02/15 2320 Streptococcus Culture - RES THROAT Recent Impressions: CAT SCAN - CT NECK W/CONTRAST 02/15 134 Report Impression - Status: SIGNED Entered: 02/16/2020 0239 IMPRESSION: 1. Enlarged neck lymph nodes bilaterally. Differ ential consideration would include inflammatory/infectious or metasta tic adenopathy. 2. Enlarged right aspect of lingual tonsils. [place] this may be due to infectious/inflammatory process, follow-u p to resolution recommended. SL: TRES Impression By: Miguelito Wolfe M.D. Lab Imaging Statement Laboratory radiographic studies reviewed and con sidered in the medical decision-making. Point of Care Testing Pulse Oximetry Pulse Ox % 100 On: Room air Interpretation Interpreted by me, Pulse oximetr y normal Time 0128 Re-Evaluation MDM Free Text MDM Notes Free Text MDM Notes Pt notes R cervical lymphadenopathy that has bee n fluctuant in size for 2-3 years, noting she failed to get bx that was suggested. I advised mother and pt on life threatening risks of lymphadenopathy and advised close OP f/u. Given fever in addition to lymphadenopathy, will cover with empiric ATB therapy. Re-Evaluation/Progress #1 Text/Dict Note Patient reassessed. Patient remains awake, alert , oriented, respirations nonlabored, appears comforta ble and is ambulatory with steady gait. I discussed all results, most likely diagnosis, at home dwight mmendations, ED return precautions and advised follow-up with PCP IN 3- 10 DAYS FOR RE-EVAL OF LYMPHADENOPATHY Time of Re-Eval 0252 ED Course Medication(s) Ordered Medication(s) Ordered: Anti-Infective Agents Sig/Victoriano Start time Last Medication Dose Route Stop Time Status Admin Ceftriaxone Sodium 1,000 MG X1ED STA 02/15 2320 DC 02/14 Sodium Chloride 10 ML IV 02/14 2322 2324 Central Nervous System Agents Sig/Victoriano Start time Last Medication Dose Route Stop Time Status Admin Acetaminophen 1,000 MG X1ED STA 02/14 2312 DC 0 02/14 PO 02/143 2320 Diagnostic Agents Sig/Victoriano Start time Last Medication Dose Route Stop Time Status Admin Iopamidol 70 ML .STK-MED ONE 02/15 013 DC 01/18 1 IV 02/15 137 0136 Electrolytic, Caloric, And Gregor Sig/Victoriano Start time Last Medication Dose Route Stop Time Status Admin Sodium Chloride 1,000 ML X1ED STA 02/142 DC 02/14 IV 02/14 2313 232 Eye, Ear, Nose And Throat (Een Sig/Victoriano Start time Last Medication Dose Route Stop Time Status Admin Dexamethasone Sodium 10 MG X1ED STA 02/15 2312 DC 02/14 Phosphate IV 02/14 2313 232 Gastrointestinal Drugs Sig/Victoriano Start time Last Medication Dose Route Stop Time Status Admin Ondansetron HCl 4 MG X1ED STA 02/15 2312 DC IV 02/14 2313 232 Patient Discharge Departure Vital Signs/Condition Vital Signs First Documented: Result Date Time Pulse Ox 100 02/14 2308 B/P 112/63 02/14 2308 B/P Mean 79 02/14 2308 O2 Delivery Room air 02/14 230 Temp 39.1 02/14 230 Pulse 117 02/14 2308 Resp 18 02/14 2308 Last Documented: Result Date Time Pulse Ox 99 02/15 0328 B/P 96/55 02/15 0328 B/P Mean 68 02/15 0328 O2 Delivery Room air 02/15 0328 Temp 36.8 02/15 0328 Pulse 83 02/15 0328 Resp 18 02/15 0328 All vital signs available at the time of this en try have been reviewed. Condition Stable Clinical Impression Clinical Impression Primary Impression: Viral pharyngitis Secondary Impressions: Cervical lymphadenopathy, Suspected COVID-19 virus infection Disposition Decision Discharge )( Discharged to Home Yes )( Time 0251 )( Date 02/16/20 COVID-19 Discharge Plan CDC Criteria Met for Testing Yes Test Performed Yes, result pending Discharge/Care Plan Counseled Regarding Diagnosi s, Lab results, Imaging studies, Prescriptions, Need for follow-up, When to return to ED Prescriptions motrin, augmentin Referrals Elina Rome MD (PCP/Family) Nirav Nolan 02/16/20 0517: HPI-General Illness General Initial Greet Date/Time 02/15/20 2255 Patient Discharge Departure Supervising Physician Note MidLv Saw Pt Alone I have reviewed the PA/SUPERVISOR PUMPING's note and plan of trey rosario. I was available for consultation as needed at al l times during the patient's visit in the emergency department. I agree with the clinical impression , plan and disposition. Electronically Signed by Amilcar Pablo SUPERVISOR PUMPING on at 0332 RPT #:[id number] END OF REPORT 2020-02-15 23:20:00-00:00 [facility] ([facility]) EMERGENCY PROVIDER REPORT REPORT#:[id number] REPORT STATUS: Signed DATE:02/15/20 TIME: 2319 PATIENT: LUIS EDMONDS UNIT #: [id number] ROOM/BED: AGE: 19 SEX: F PCP PHYS: Elina Rome MD SERVICE AUTHOR: Amilcar Pablo SUPERVISOR PUMPING * ALL edits or amendments must be made on the [employer]/computer document * Amilcar Pablo 02/15/202319: HPI-General Illness Free Text HPI Notes Free Text HPI Notes 19-year-old female with past medical his tory of asthma presents to the ER with mother with complaint of fev er, sore throat, nausea, right ear pain and enlarged R cervical lymph node onset today. Pt to ok 2 tabs of motrin earlier today. She denies any cough, congestion, SOB, wheez ing, abd pain, v/d, dysuria, hematuria or vaginal discharge. No known Covid exposures. Presentation Chief Complaint Fever, Sore throat Hx Obtained From Patient, PARENT Review of Systems ROS Statements All systems rev neg except as marked. Review of Systems Constitutional Reports: Fever. Ears/Nose/Throat Reports: Earache R, Sore throat. Denies: Nasal c ongestion. Respiratory Denies: Cough, non-productiv e, Cough, productive, Shortness of breath, Wheezing. GI Reports: Nausea. Denies: Abdominal pain, Diarrhe a, Vomiting. Female Denies: Flank pain, Hematuria, Vaginal discharge . Past Medical History - Adult Stated Complaint FEVER, SORE THROAT, BODY ACHES, Allergies Uncoded Allergies: MALIC ACID (Severe, TONGUE SWELLING, THROAT CLOS ING 12/24/17) Home Medications Reported Medications IBUPROFEN (MOTRIN) 800 MG PO TID Past Medical History: Reports: Asthma. Denies: Diabetes mellitus, GERD /gastritis, Hypertension, Kidney disease/stones, Seizure disorder. Additional Medical History chronic pinched nerve Additional Surgical History tonsilectomy Smoking status for patients 13 years old or olde r: Never Smoker Physical Exam Vital Signs Vital Signs First Documented: Result Date Time Pulse Ox 100 02/14 2308 B/P 112/63 02/15 2308 B/P Mean 79 02/15 2308 O2 Delivery Room air 02/15 2308 Temp 39.1 02/15 2308 Pulse 117 02/15 2308 Resp 02/14 Last Documented: Result Date Time Pulse Ox 99 02/16 328 B/P 96/55 02/16 328 B/P Mean 68 02/16 328 O2 Delivery Room air 02/16 328 Temp 36.8 02/16 328 Pulse 83 02/16 328 Resp 18 02/16 328 Review of Vital Signs Reviewed Free Text PE Notes Free Text PE Notes Gen: Well developed, acutely ill but non-toxic a ppearance. smells of smoke Head: Normocephalic Eyes: Pupils midline, sclera NL, no periorbital edema, conjunctiva normal Ears: TMs intact bilaterally with good landmarks , no erythema. EAC patent without swelling, erythema, or drainage. No mast oid swelling or TTP Nose: no nasal drainage or mucosal edema Throat: Moist mucous membranes, handling secreti ons. Airway patent. OP clear without exudates or petechia. Tonsils surgically absent. Mild protrusion of R posterior upper palate without obvious abscess Neck: Supple, FROM, no meningismus, + R anterior cervical adenopathy Lungs: CTA all lobes. Respirations NL. N o wheezing, No rhonchi, No dyspnea. No stridor or accessory muscle use. Heart: Regular rhythm, No murmurs. tachycardia c /w fever Abd: Soft, non-tender, non-distended. No rebound, guarding, or peritoneal sxs. No palpable masses or pulsatile masses. No TTP a t [place] Ext: No obvious deformity Neuro: awake and alert, speech NL for age, behav ior age-appropriate. Interpretation Diagnostics Lab Results Interpretation Results Laboratory Tests 02/15/202325: [Embedded Image Not Available] Laboratory Tests: 02/146 2326 Chemistry Sodium (134 - 147 mEq/L) 134 Potassium (4.0 - 6.5 mEq/L) 3.7 L Chloride (100 - 108 mEq/L) 102 Carbon Dioxide (21 - 33 mEq/L) 26 Anion Gap (0 - 20) 10 BUN (7 - 18 mg/dL) 10 Creatinine (0.6 - 1.3 mg/dL) 0.6 Glucose (60 - 110 mg/dL) 94 Calcium (8.0 - 10.5 mg/dL) 9.1 Total Bilirubin (<1.5 MG/DL) 0.4 AST (15 - 37 IUnit/L) 5 L ALT (15 - 65 IUnit/L) 18 Total Alk Phosphatase (60 - 350 IUnit/L) 70 Total Protein (6.4 - 8.2 g/dL) 7.7 Albumin (3.4 - 5.0 g/dL) 4.00 Hematology WBC (4.5 - 13.0 x10 3/uL) 12.19 RBC (4.2 - 5.4 x10 6/uL) 4.24 Hgb (11.1 - 15.7 g/dL) 12.1 Hct (34.0 - 44.0 %) 37.9 MCV (77.0 - 87.0 fL) 89.4 H MCH (26.0 - 30.0 pg) 28.5 MCHC (32.0 - 36.0 g/dL) 31.9 L RDW (11.5 - 14.5 %) 14.1 Plt Count (150 - 400 x10 3/uL) 220 MPV (7.0 - 9.0 fL) 10.8 H Neut % (Auto) (32.0 - 54.0 %) 75.2 H Lymph % (Auto) (28.0 - 48.0 %) 13.9 L [place] % (Auto) (3.0 - 15.0 %) 10.0 Eos % (Auto) (1.0 - 8.0 %) 0.0 L Baso % (Auto) (0.0 - 2.0 %) 0.4 Neut # (Auto) (2.0 - 3.2 x10 3/uL) 9.16 H Lymph # (Auto) (1.0 - 3.8 x10 3/uL) 1.70 [place] # (Auto) (0.1 - 0.8 x10 3/uL) 1.22 H Eos # (Auto) (0.0 - 0.4 x10 3/uL) 0.00 Baso # (Auto) (0.0 - 0.2 x10 3/uL) 0.05 Abs Immat Gran (auto) (0.00 - 0.03 x10 3/uL) 0. 06 H Add Manual Diff NO Immature Gran % (0.0 - 2.0 %) 0.5 Nucleated RBC % (0 - 0 %) 0.0 Nucleated RBCs # (Man) (0.0 - 0.1 x10 3/uL) 0.0 0 Serology Monoscreen (NEGATIVE) NEGATIVE Urines Urine Color (YEL/STRAW) YELLOW Urine Appearance (CLEAR) CLEAR Urine pH (5.0 - 7.0) 6.0 Ur Specific [place] (1.005 - 1.030) 1.015 Urine Protein (NEGATIVE) NEGATIVE Urine Glucose (UA) (NEGATIVE) NEGATIVE Urine Ketones (NEGATIVE) NEGATIVE Urine Blood (NEGATIVE) 2+ H Urine Nitrite (NEGATIVE) NEGATIVE Urine Bilirubin (NEGATIVE) NEGATIVE Urine Urobilinogen (0.2 - 1.0 mg/dL) 0.2 Ur Leukocyte Esterase (NEGATIVE) NEGATIVE Urine RBC (0 - 3 RBC/HPF) 0-3 Urine WBC (0 - 3 WBC/HPF) 0-3 Ur Squamous Epith Cells (NONE SEEN /HPF) 0-5 Urine Bacteria (NONE SEEN /HPF) TRACE Urine Mucus (NONE SEEN /LPF) 1+ Urine HCG, Qual (NEGATIVE) NEGATIVE Microbiology: Date/Time Procedure - Status Source Growth 02/15 2320 Group A Streptococcus Screen (KATEY) - RES THROAT 02/15 2320 Streptococcus Culture - RES THROAT Recent Impressions: CAT SCAN - CT NECK W/CONTRAST 02/15 0134 Report Impression - Status: SIGNED Entered: 02/16/2020 0239 IMPRESSION: 1. Enlarged neck lymph nodes bilaterally. Differ ential consideration would include inflammatory/infectious or metasta tic adenopathy. 2. Enlarged right aspect of lingual tonsils. [place] this may be due to infectious/inflammatory process, follow-u p to resolution recommended. SL: TORI-H Impression By: [email or web address] Pati Wolfe M.D. Lab Imaging Statement Laboratory radiographic studies reviewed and con sidered in the medical decision-making. Point of Care Testing Pulse Oximetry Pulse Ox % 100 On: Room air Interpretation Interpreted by me, Pulse oximetr y normal Time 0128 Re-Evaluation MDM Free Text MDM Notes Free Text MDM Notes Pt notes R cervical lymphadenopathy that has bee n fluctuant in size for 2-3 years, noting she failed to get bx that was suggested. I advised mother and pt on life threatening risks of lymphadenopathy and advised close OP f/u. Given fever in addition to lymphadenopathy, will cover with empiric ATB therapy. Re-Evaluation/Progress #1 Text/Dict Note Patient reassessed. Patient remains awake, alert , oriented, respirations nonlabored, appears comforta ble and is ambulatory with steady gait. I discussed all results, most likely diagnosis, at home dwight mmendations, ED return precautions and advised follow-up with PCP IN 3- 10 DAYS FOR RE-EVAL OF LYMPHADENOPATHY Time of Re-Eval 0252 ED Course Medication(s) Ordered Medication(s) Ordered: Anti-Infective Agents Sig/Victoriano Start time Last Medication Dose Route Stop Time Status Admin Ceftriaxone Sodium 1,000 MG X1ED STA 02/15 2320 DC 02/14 Sodium Chloride 10 ML IV 02/14 2322 232 Central Nervous System Agents Sig/Victoriano Start time Last Medication Dose Route Stop Time Status Admin Acetaminophen 1,000 MG X1ED STA 02/142 DC 02/14 PO 02/14 2313 2320 Diagnostic Agents Sig/Victoriano Start time Last Medication Dose Route Stop Time Status Admin Iopamidol 70 ML .STK-MED ONE 02/16 136 DC 01/18 1 IV 02/15 137 0136 Electrolytic, Caloric, And Gregor Sig/Victoriano Start time Last Medication Dose Route Stop Time Status Admin Sodium Chloride 1,000 ML X1ED STA 02/142 DC 02/14 IV 02/14 2313 2321 Eye, Ear, Nose And Throat (Een Sig/Victoriano Start time Last Medication Dose Route Stop Time Status Admin Dexamethasone Sodium 10 MG X1ED STA 02/15 2312 DC 02/14 Phosphate IV 02/14 2313 2321 Gastrointestinal Drugs Sig/Victoriano Start time Last Medication Dose Route Stop Time Status Admin Ondansetron HCl 4 MG X1ED STA 02/14 2312 DC IV 02/143 2321 Patient Discharge Departure Vital Signs/Condition Vital Signs First Documented: Result Date Time Pulse Ox 100 02/15 2308 B/P 112/63 02/15 2308 B/P Mean 79 02/15 2308 O2 Delivery Room air 02/15 2308 Temp 39.1 02/15 2308 Pulse 117 02/148 Resp 18 02/15 2308 Last Documented: Result Date Time Pulse Ox 99 02/15 0328 B/P 96/55 02/15 0328 B/P Mean 68 07/31 0328 O2 Delivery Room air 02/16 328 Temp 36.8 02/16 328 Pulse 83 02/16 328 Resp 18 02/16 328 All vital signs available at the time of this en try have been reviewed. Condition Stable Clinical Impression Clinical Impression Primary Impression: Viral pharyngitis Secondary Impressions: Cervical lymphadenopathy, Suspected COVID-19 virus infection Disposition Decision Discharge )( Discharged to Home Yes )( Time 0251 )( Date 02/16/20 COVID-19 Discharge Plan CDC Criteria Met for Testing Yes Test Performed Yes, result pending Discharge/Care Plan Counseled Regarding Diagnosi s, Lab results, Imaging studies, Prescriptions, Need for follow-up, When to return to ED Prescriptions motrin, augmentin Referrals Elina Rome MD (PCP/Family) Nirav Nolan 02/16/20 0517: HPI-General Illness General Initial Greet Date/Time 02/15/20 2255 Patient Discharge Departure Supervising Physician Note MidLv Saw Pt Alone I have reviewed the PA/SUPERVISOR PUMPING's note and plan of car e. I was available for consultation as needed at al l times during the patient's visit in the emergency department. I agree with the clinical impression , plan and disposition. Electronically Signed by Amilcar Pablo NP on at 0332 at 0517 [facility] #:[id number] END OF REPORT 2019-05-22 11:29:00-00:00 [facility] ([facility]) EMERGENCY PROVIDER REPORT REPORT#:[id number] REPORT STATUS: Signed DATE:05/22/19 TIME: 1128 PATIENT: LUIS EDMONDS UNIT #: [id number] ROOM/BED: AGE: 18 SEX: F PCP PHYS: Elina Rome MD SERVICE AUTHOR: Carla Toledo MD * ALL edits or amendments must be made on the el [employer]/computer document * HPI-Allergic Reaction Peds General Confirmed Patient Yes Patient Type Existing patient Initial Greet Date/Time 05/22/19 1121 Presentation Chief Complaint Allergic reaction Hx Obtained from Patient Onset Occurred Today, Minutes ago (30) Symptom Duration Since onset Progression since Onset Unchanged Severity: Onset Mild Severity: Current Mild Associated with Reports: Swelling, throat. Denies: Diffi culty speaking, Difficulty swallowing, Rash/redness all over, Swelling, face, Swelling, lips, Swelling, tongue, Vomiting, Welts/hives. Exacerbated by Nothing Relieved by OTC antihistamine, Epi-pen Context Related History Reports: Known allergy. Denies: Anaphylaxis. Similar Sx Previous Yes Free Text HPI Notes Free Text HPI Notes 18 y/o F with PMHx of asthma presents to the ED with c/o allergic reaction, onset 30mins [employer]. Pt reports eating sour Skittles and felt sensation of throat swelling with associated neck/throat itchiness a nd SOB. She took 50mg of Benadryl and Epi Pen at scho ol [employer]. Pt was seen here previously on 05/02/19 with similar presentation. Denies any n/v, rashes, or any wheezing. Portions of this section were scribed by Laith Ryan on 05/22/19 at 1129 Review of Systems ROS Statements All systems rev neg except as marked. Review of Systems Constitutional Denies: Chills, Fever, Irritability, Lethargy. Eyes Denies: Discharge, Redness, Swelling. Ears/Nose/Throat Reports: Throat swelling. Denies: Nasal congestion, Rhinorrhea, Sores/lesions, Tongue swelling. Respiratory Reports: Shortness of breath. Denies: Cough, bar meredith-type, Cough, Hemoptysis. Cardiovascular Denies: Cyanosis, Edema. GI Denies: Abdominal pain, Diarrhea, Nausea, Vomiti ng - bilious, Vomiting - non- bilious. Female Denies: Dysuria, Flank pain. Hematologic Denies: Bleeding, Bruising. Skin Denies: Abrasion, Laceration, Rash, Swelling. Allergy/Immun Denies: Hives, Swelling. Neurologic Denies: Numbness, Tingling. Portions of this section were scribed by Laith Ryan on 05/22/19 at 1129 Past Medical History - Peds Stated Complaint ALLERGIC REACTION TO SOUR CANDY Allergies Uncoded Allergies: MALIC ACID (Severe, TONGUE SWELLING, THROAT CLOS ING 12/24/17) Home Medications Reported Medications IBUPROFEN (MOTRIN) 800 MG PO TID Review of Nursing Notes Rev avail, and agree Past Medical History: Reports: Asthma/chronic lung ds, GI issues/GERD. Additional Medical History chronic pinched nerve Additional Surgical History tonsilectomy Patient History FATHER Family History: Heart disease MOTHER Family History: Cancer Smoking status for patients 13 years old or olde r: Never Smoker Social History Reports: Lives with father, Good social support. Portions of this section were scribed by Laith Ryan on 05/22/19 at 1129 Physical Exam Vital Signs Vital Signs First Documented: Result Date Time Pulse Ox 100 05/22 1120 B/P 119/56 05/22 1120 B/P Mean 77 05/22 112 O2 Delivery Room air 05/22 112 Temp 36.7 05/22 112 Pulse 90 05/22 1120 Resp 16 05/22 112 Last Documented: Result Date Time Pulse Ox 97 05/22 1313 B/P 110/65 05/22 1313 B/P Mean 80 05/22 1313 O2 Delivery Room air 05/22 1313 Temp 36.7 05/22 131 Pulse 90 05/22 1313 Resp 21 05/22 1313 Review of Vital Signs Reviewed Focused PE General/Const General/Const Awake, Alert, No apparent distress, Well appearing, Cooperative , No irritability MS Head Head Atraumatic, Normocephalic Eyes Eyes PERRL, EOMI, No nystagmus, No scleral icte juan Ears/Nose/Throat Ears/Nose/Throat Airway patent, Mucous membrane s moist, Pharynx NL, No pooling of secretions Resp/Chest Respiratory/Chest Atraumatic, Breath sounds NL, Breath sounds = bilat, No respiratory distress, No grunting, No rales, No rhonchi, No wheezing, No retractions, No stridor Cardiovascular Cardiovascular Heart rate NL, Regular rhythm, H eart sounds NL Abdomen/GI Abdomen/GI Soft, Non-tender, No guarding, No re bound, No distention Skin Skin No rash, Warm, Dry, Intact Neurologic Neurologic Orientation NL for age, Speech NL fo r age, Gait NL for age Additional PE MS Neck Neck Supple, No meningismus, Full range of naeem on Portions of this section were scribed by Laith Ryan on 05/22/19 at 1129 Interpretation Diagnostics Point of Care Testing Pulse Oximetry Pulse Ox % 100 On: Room air Interpretation Interpreted by me, Pulse oximetr y normal Time 1120 Portions of this section were scribed by Laith Ryan on 05/22/19 at 1129 Re-Evaluation MDM )( Re-Evaluation/Progress #1 Text/Dict Note NO edema of OP, tongue, or lips. Pt resting, NAD , feels much better. Time of Re-Eval 1257 )( Re-Eval Status Improved ED Course Medication(s) Ordered Medication(s) Ordered: Autonomic Drugs Sig/Victoriano Start time Last Medication Dose Route Stop Time Status Admin Albuterol Sulfate 2.5 MG Q15M 05/22 1130 DC NEB 05/22 1201 1138 Eye, Ear, Nose And Throat (Een Sig/Victoriano Start time Last Medication Dose Route Stop Time Status Admin Ipratropium [place] 0.5 MG Q15M 05/22 1130 DC 1 07/22 NEB 05/22 1201 1138 Gastrointestinal Drugs Sig/Victoriano Start time Last Medication Dose Route Stop Time Status Admin Famotidine 20 MG X1ED STA 05/22 1128 DC 05/22 PO 05/22 1129 1137 Hormones And Synthetic Substit Sig/Victoriano Start time Last Medication Dose Route Stop Time Status Admin Prednisone 50 MG X1ED STA 05/22 1129 DC 05/22 PO 05/22 1130 1137 Patient Discharge Departure Vital Signs/Condition Vital Signs First Documented: Result Date Time Pulse Ox 100 05/22 1120 B/P 119/56 05/22 1120 B/P Mean 77 05/22 1120 O2 Delivery Room air 05/22 1120 Temp 36.7 05/22 1120 Pulse 90 05/22 1120 Resp 16 05/22 1120 Last Documented: Result Date Time Pulse Ox 97 05/22 1313 B/P 110/65 05/22 1313 B/P Mean 80 05/22 1313 O2 Delivery Room air 05/22 1313 Temp 36.7 05/22 1313 Pulse 90 05/22 1313 Resp 21 05/22 1313 All vital signs available at the time of this en try have been reviewed. Condition Stable Clinical Impression Clinical Impression Primary Impression: Acute allergic reaction Disposition Decision Discharge )( Discharged to Home Yes )( Time 1258 )( Date 05/22/19 Discharge/Care Plan Counseled Regarding Diagnosis, Lab resul ts, Prescriptions, Need for follow-up, When to return to ED, cessation of eating candy Prescriptions benadryl, pepcid, prednisone, albuterol, Epi pen Prescriptions Reviewed Risks, Benefits Discharge Note I have spoken with the patie nt and/or caregivers. I have explained the patient's condition, diagnoses and margot atment plan based on the information available to me at this time. I have answered the patient's and/ or caregiver's questions and addressed any concerns. The patient and/or careg jammie have as good an understanding of the patient 's diagnosis, condition and treatment plan as can be expected at this point. The vital signs have bee n stable. The patient's condition is stable and appr opriate for discharge from the emergency department. The patient will pursue further outpatient evalu ation with the primary care physician or other designated or consulting phys ician as outlined in the discharge instructions. The patient and/or caregivers are agreeable to this plan of care and follow-up instructions have been exp lained in detail. The patient and/or caregivers have received these instructio ns in written format and have expressed an understanding of the discharge inst ructions. The patient and/or caregivers are aware that any significant change in condition or worsening of symptoms should prompt an immediate return to [facility] or the closest emergency department or a call to 911. Supervising Physician Note Scribe Statement Laith Harvey, 05/22/19 1 129, scribing for and in the presence of Dr. Toledo. Signed By: Laith Harvey, 05/22/19 1129 Provider Scribed Statement I personally performed the s ervices described in this documentation and reviewed the documentation that was dictated to the scrib e(s) in my presence, and it accurately records my words and actions. Carla Toledo, 05/22/19 Portions of this section were scribed by Laith Ryan on 05/22/19 at 1129 Electronically Signed by Carla Toledo MD on at 202 RPT #:[id number] END OF REPORT 2019-05-02 09:53:00-00:00 [facility] ([facility]) EMERGENCY PROVIDER REPORT REPORT#:[id number] REPORT STATUS: Signed DATE:05/02/19 TIME: 952 PATIENT: LUIS EDMONDS UNIT #: [id number] ROOM/BED: AGE: 18 SEX: F PCP PHYS: Elina Rome MD SERVICE AUTHOR: Carla Toledo MD * ALL edits or amendments must be made on the el [employer]/computer document * HPI-Allergic Reaction Peds General Confirmed Patient Yes Initial Greet Date/Time 05/02/[address] 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 Associated Other Pt denies other symptoms Exacerbated by Nothing Relieved by OTC antihistamine, Epi-pen Free Text HPI Notes Free Text HPI Notes 18 y/o F with PMHx of asthma and panic disorder presents to ED via EMS for allergic reaction x today at 0800. Pt reports sh e ate sour candy when onset occurred. 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 Now c/o itchy throat. Denies nause a and vomiting. Portions of this section were scribed by Tyrone Edwards on 05/02/19 at 0957 Review of Systems ROS Statements All systems rev neg except as marked. Review of Systems Constitutional Denies: Chills, Fever. Eyes Denies: Pain, Photophobia. Ears/Nose/Throat Denies: Nasal congestion, Rhinorrhea. Respiratory Denies: Cough, Shortness of breath. Cardiovascular Denies: Chest pain, Palpitations. GI Denies: Abdominal pain, Nausea, Vomiting - non-b ilious. Female Denies: Dysuria, Flank pain. Musculoskeletal Denies: Back pain, Muscle pain. Hematologic Denies: Bleeding, Bruising. Skin Denies: Laceration, Rash. Allergy/Immun Reports: Itching, Swelling. Portions of this section were scribed by Tyrone Edwards on 05/02/19 at 0957 Past Medical History - Peds Stated Complaint ALLERGIC REACTION Allergies Uncoded Allergies: MALIC ACID (Severe, TONGUE SWELLING, THROAT CLOS ING 12/24/17) Home Medications Reported Medications No Known Home Medications Review of Nursing Notes Rev avail, and agree Past Medical History: Reports: Asthma/chronic lung ds, GI issues/GERD. Additional Medical History chronic pinched nerve Additional Surgical History tonsilectomy Patient History FATHER Family History: Heart disease MOTHER Family History: Cancer Smoking status for patients 13 years old or olde r: Never Smoker Social History Reports: Lives with father, Good social support. Portions of this section were scribed by Tyrone Edwards on 05/02/19 at 0957 Physical Exam Vital Signs Vital Signs First Documented: Result Date Time Pulse Ox 98 05/02 944 B/P 121/57 05/02 944 B/P Mean 78 05/02 944 Temp 36.9 05/02 944 Pulse 82 05/02 944 Resp 18 05/02 944 O2 Delivery Room air 05/02 1130 Last Documented: Result Date Time Pulse Ox 99 05/02 1130 B/P 100/54 05/02 1130 B/P Mean 69 05/02 1130 O2 Delivery Room air 05/02 1130 Temp 36.8 05/02 1130 Pulse 77 05/02 1130 Resp 18 05/02 1130 Review of Vital Signs Reviewed Focused PE General/Const General/Const Awake, Alert, No apparent distres s MS Head Head Atraumatic, Normocephalic Eyes Eyes PERRL, EOMI, No nystagmus Ears/Nose/Throat Ears/Nose/Throat Airway patent, Mucous membrane s moist, Pharynx NL, No pooling of secretions Resp/Chest Respiratory/Chest Breath sounds NL, Breath soun ds = bilat, No respiratory distress, No grunting, No rales, No rhonchi, No wheezing Cardiovascular Cardiovascular Heart rate NL, Regular rhythm, H eart sounds NL Abdomen/GI Abdomen/GI Soft, Non-tender, No distention Skin Skin Color NL, No rash, Warm, Dry, Intact Neurologic Neurologic Orientation NL for age, Speech NL fo r age, No motor deficits Additional PE MS Neck Neck Supple, No meningismus, Full range of naeem on Portions of this section were scribed by Tyrone Edwards on 05/02/19 at 0957 Interpretation Diagnostics Point of Care Testing Pulse Oximetry Pulse Ox % 98 On: Room air Interpretation Interpreted by me, Pulse oximetr y normal Time 0944 Portions of this section were scribed by Tyrone Edwards on 05/02/19 at 0957 Re-Evaluation MDM )( Re-Evaluation/Progress #1 Text/Dict Note Pt states her sx have resolv ed, parents are at bedside, everyone understands tx plan. Time of Re-Eval 1116 )( Re-Eval Status Improved, Resolved ED Course Medication(s) Ordered Medication(s) Ordered: Autonomic Drugs Sig/Victoriano Start time Last Medication Dose Route Stop Time Status Admin Albuterol/Ipratropium 3 ML X1ED STA 05/02 0953 DC / NEB 05/02 0954 1002 Gastrointestinal Drugs Sig/Victoriano Start time Last Medication Dose Route Stop Time Status Admin Famotidine 20 MG X1ED STA 05/02 0953 DC 05/02 IV 05/02 0954 1002 Hormones And Synthetic Substit Sig/Victoriano Start time Last Medication Dose Route Stop Time Status Admin Methylprednisolone 125 MG X1ED STA 05/02 0953 D C 05/02 Sodium Succinate IV 05/02 954 1002 Portions of this section were scribed by Tyrone Edwards on 05/02/19 at 0957 Patient Discharge Departure Vital Signs/Condition Vital Signs First Documented: Result Date Time Pulse Ox 98 05/02 0944 B/P 121/57 05/02 0944 B/P Mean 78 05/02 0944 Temp 36.9 05/02 0944 Pulse 82 05/02 0944 Resp 18 05/02 0944 O2 Delivery Room air 05/02 1130 Last Documented: Result Date Time Pulse Ox 99 05/02 1130 B/P 100/54 05/02 1130 B/P Mean 69 05/02 1130 O2 Delivery Room air 05/02 1130 Temp 36.8 05/02 1130 Pulse 77 / 1130 Resp 18 05/02 1130 All vital signs available at the time of this en try have been reviewed. Clinical Impression Clinical Impression Primary Impression: Allergic reaction Disposition Decision Discharge )( Discharged to Home Yes )( Time 1129 )( Date 05/02/19 Discharge/Care Plan Counseled Regarding Diagnosi s, Prescriptions, Need for follow-up, When to return to ED Prescriptions albuterol, benadryl, pepcid, prednisone, Epipen Prescriptions Reviewed Risks, Benefits Discharge Note I have spoken with the patie nt and/or caregivers. I have explained the patient's condition, diagnoses and margot atment plan based on the information available to me at this time. I have answered the patient's and/ or caregiver's questions and addressed any concerns. The patient and/or careg jammie have as good an understanding of the patient 's diagnosis, condition and treatment plan as can be expected at this point. The vital signs have bee n stable. The patient's condition is stable and appr opriate for discharge from the emergency department. The patient will pursue further outpatient evalu ation with the primary care physician or other designated or consulting phys ician as outlined in the discharge instructions. The patient and/or caregivers are agreeable to this plan of care and follow-up instructions have been exp lained in detail. The patient and/or caregivers have received these instructio ns in written format and have expressed an understanding of the discharge inst ructions. The patient and/or caregivers are aware that any significant change in condition or worsening of symptoms should prompt an immediate return to [facility] or the closest emergency department or a call to 911. Quality Measures Smoking Cessation Screened, non user Tobacco Screening/Cessation Denies tobacco use Supervising Physician Note Scribe Statement Priscilla Edwards, 05/02/19 0953, scribing for and in e presence of [Dr. Toledo]. Signed By: Priscilla Edwards, 05/02/19 0953 Provider Scribed Statement I personally performed the s ervices described in this documentation and reviewed the documentation that was dictated to the scrib e(s) in my presence, and it accurately records my words and actions. Carla Toledo, 05/02/19 Portions of this section were scribed by Tyrone Edwards on 05/02/19 at 0957 Electronically Signed by Carla Toledo MD on at 3606 RPT #:[id number] END OF REPORT
--- NOTE | 2023-02-10 14:54 | RAD REPORT ---
EXAM DESCRIPTION: RAD - Ankle Left 3 View - 02/10/2023 2:41 pm CLINICAL HISTORY: PAIN COMPARISON: No comparisons FINDINGS: No fracture or dislocation evident.
--- NOTE | 2023-02-10 15:29 | EDPHYS ---
Physician Documentation [facility] Name: Hilaria Rogers Age: 22 yrs Sex: Female : 2000 Arrival Date: 02/10/2023 Time: 13:56 Bed 12 Private MD: ED Physician Tati Swift HPI: 02/10 16:02 This 22 yrs old Female presents to ER via Wheelchair with complaints of Ankle Injury. snw 16:02 The patient presents with pain, that is acute. The complaints affect the left ankle. snw Onset: The symptoms/episode began/occurred acutely, last night, pt states she tripped with the laundry basket and bounced off the wall, stepping on a toy on the floor and sliding to a stop. It is unknown whether or not the patient has had similar symptoms in the past. It is unknown whether or not the patient has recently seen a physician. 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 - Social history:: Smoking status: Patient denies any tobacco usage or history of. ROS: 16:02 Constitutional: Negative for fever, chills, and weight loss, Eyes: Negative for injury, snw pain, redness, and discharge, ENT: Negative for injury, pain, and discharge, Neck: Negative for injury, pain, and swelling, Cardiovascular: Negative for chest pain, palpitations, and edema, Respiratory: Negative for shortness of breath, cough, wheezing, and pleuritic chest pain, Abdomen/GI: Negative for abdominal pain, nausea, vomiting, diarrhea, and constipation, Back: Negative for injury and pain, : Negative for injury, bleeding, discharge, and swelling, Skin: Negative for injury, rash, and discoloration, Neuro: Negative for headache, weakness, numbness, tingling, and seizure, Psych: Negative for depression, anxiety, suicide ideation, homicidal ideation, and hallucinations. 16:02 MS/extremity: Positive for injury or acute deformity, pain, tenderness, of the left ankle. Exam: 15:59 Constitutional: This is a well developed, well nourished patient who is awake, alert, snw and in no acute distress. Head/Face: Normocephalic, atraumatic. Eyes: Pupils equal round and reactive to light, extra-ocular motions intact. Lids and lashes normal. Conjunctiva and sclera are non-icteric and not injected. Cornea within normal limits. Periorbital areas with no swelling, redness, or edema. ENT: Nares patent. No nasal discharge, no septal abnormalities noted. Tympanic membranes are normal and external auditory canals are clear. Oropharynx with no redness, swelling, or masses, exudates, or evidence of obstruction, uvula midline. Mucous membranes moist. Neck: Trachea midline, no thyromegaly or masses palpated, and no cervical lymphadenopathy. Supple, full range of motion without nuchal rigidity, or vertebral point tenderness. No Meningismus. Chest/axilla: Normal chest wall appearance and motion. Nontender with no deformity. No lesions are appreciated. Cardiovascular: Regular rate and rhythm with a normal S1 and S2. No gallops, murmurs, or rubs. Normal PMI, no JVD. No pulse deficits. Respiratory: Lungs have equal breath sounds bilaterally, clear to auscultation and percussion. No rales, rhonchi or wheezes noted. No increased work of breathing, no retractions or nasal flaring. Abdomen/GI: Soft, non-tender, with normal bowel sounds. No distension or tympany. No guarding or rebound. No evidence of tenderness throughout. Back: No spinal tenderness. No costovertebral tenderness. Full range of motion. Skin: Warm, dry with normal turgor. Normal color with no rashes, no lesions, and no evidence of cellulitis. Neuro: Awake and alert, GCS 15, oriented to person, place, time, and situation. Cranial nerves II-XII grossly intact. Motor strength 5/5 in all extremities. Sensory grossly intact. Cerebellar exam normal. Normal gait. Psych: Awake, alert, with orientation to person, place and time. Behavior, mood, and affect are within normal limits. 15:59 Musculoskeletal/extremity: Extremities: grossly normal except: noted in the left contreras, anterior aspect of left ankle and dorsum of left foot: tenderness, ROM: no acute changes, Circulation is intact in all extremities. Sensation intact. Vital Signs: 14:14 BP 105 / 65; Pulse 84; Resp 16 S; Temp 98.1(TE); Pulse Ox 100% on R/A; Weight 70.76 kg aa5 (R); Height 5 ft. 3 in. (R); 14:14 Body Mass Index 27.63 (70.76 kg, 160.02 cm) aa5 MDM: 14:25 Patient medically screened. snw 16:01 Differential diagnosis: fracture, sprain, arthritis. Data reviewed: vital signs, nurses snw notes, radiologic studies, plain films. Historians other than the Patient: Spouse/Significant Other: . Counseling: I had a detailed discussion with the patient and/or guardian regarding: the historical points, exam findings, and any diagnostic results supporting the discharge/admit diagnosis, radiology results, to return to the emergency department if symptoms worsen or persist or if there are any questions or concerns that arise at home. Response to treatment: There is no appreciated change of the patient's symptoms at this time. Special discussion: Based on the history and exam findings, there is no indication for further emergent testing or inpatient evaluation. I discussed with the patient/guardian the need to see the orthopedic surgeon for further evaluation of the symptoms. I discussed with the patient/guardian the need to see the primary care provider for further evaluation of the symptoms. 02/10 14:23 Order name: Ankle Left 3 View XRAY; Complete Time: 15:04 snw 02/10 15:28 Order name: Walking boot: left; Complete Time: 16:02 snw Administered Medications: No medications were administered Disposition Summary: 02/10/23 15:29 Discharge Ordered Location: Home snw Condition: Stable snw Diagnosis - Sprain of ankle snw Followup: snw - With: Emergency Department - When: As needed - Reason: Worsening of condition Followup: snw - With: Private Physician - When: 2 - 3 days - Reason: Recheck today's complaints, Continuance of care, Re-evaluation by your physician Discharge Instructions: - Discharge Summary Sheet snw - Ankle Sprain snw - RICE Therapy for Routine Care of Injuries snw - Walking Boot, Adult snw Forms: - Medication Reconciliation Form snw - Thank You Letter snw - Antibiotic Education snw - Prescription Opioid Use snw - Patient Portal Instructions snw Prescriptions: - Mobic 7.5 mg Oral Tablet - take 1 tablet by ORAL route once daily take with food; 20 tablet; Refills: 0, snw Product Selection Permitted Signatures: Dispatcher [employer] Yecenia Ghosh FNP-C [employer]-Irmaw Linda Valdez, RN RN aa5
--- NOTE | 2023-02-10 15:29 | ER ---
Nurse's Notes [facility] Name: Hilaria Rogers Age: 22 yrs Sex: Female : 2000 Arrival Date: 02/10/2023 Time: 13:56 Bed 12 Private MD: Diagnosis: Sprain of ankle Presentation: 02/10 14:12 Chief complaint: Patient states: "I tripped over a toy car and hurt my left ankle". aa5 Coronavirus screen: At this time, the client does not indicate any symptoms associated with coronavirus-19. Ebola Screen: Patient denies travel to an Ebola-affected area in the 21 days before illness onset. Initial Sepsis Screen: Does the patient meet any 2 criteria? No. Patient's initial sepsis screen is negative. Does the patient have a suspected source of infection? No. Patient's initial sepsis screen is negative. Risk Assessment: Do you want to hurt yourself or someone else? Patient reports no desire to harm self or others. Onset of symptoms was February 09, 2023. 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 - Social history:: Smoking status: Patient denies any tobacco usage or history of. Screenin:03 [facility] ED Fall Risk Assessment (Adult) History of falling in the last 3 months, cm10 including since admission No falls in past 3 months (0 pts) Confusion or Disorientation No (0 pts) Intoxicated or Sedated No (0 pts) Impaired Gait Yes (1 pt) Mobility Assist Device Used No (0 pt) Altered Elimination No (0 pt) Score/Fall Risk Level 0 - 2 = Low Risk Oriented to surroundings, Maintained a safe environment, Hourly rounding (assess needs \\T\\ fall precautionary measures) done. Abuse screen: Denies threats or abuse. Denies injuries from another. Nutritional screening: No deficits noted. Tuberculosis screening: No symptoms or risk factors identified. Assessment: 16:03 General: Appears in no apparent distress. comfortable, Behavior is calm, cooperative. cm10 Pain: Complains of pain in left leg and dorsum of left foot and anterior aspect of left ankle and left contreras. Neuro: No deficits noted. Level of Consciousness is awake, alert, Oriented to person, place, time, situation. Respiratory: No deficits noted. GI:. Musculoskeletal: Reports pain in left leg and dorsum of left foot and anterior aspect of left ankle and left contreras. 16:13 Reassessment: No changes from previously documented assessment. Requesting crutches, ll1 has walking boot on. Jane Jimenes states she doesn't need crutches. S.O very upset that she isn't getting crutches. S.O. stated, "This is the worst hospital in the world, I'm never coming back" . Apologized about the situation and offered to help them out to the lobby. Vital Signs: 14:14 BP 105 / 65; Pulse 84; Resp 16 S; Temp 98.1(TE); Pulse Ox 100% on R/A; Weight 70.76 kg aa5 (R); Height 5 ft. 3 in. (R); 14:14 Body Mass Index 27.63 (70.76 kg, 160.02 cm) aa5 ED Course: 13:59 Patient arrived in ED. im 14:01 Yecenia Jimenes FNP-C is [facility]. snw 14:01 Tati Swift MD is Attending Physician. snw 14:12 Arm band placed on. aa5 14:13 Triage completed. aa5 14:42 Ankle Left 3 View XRAY In Process Unspecified. EDMS 16:04 Patient has correct armband on for positive identification. Provided Education on: N/A. cm10 16:04 No provider procedures requiring assistance completed. Patient did not have IV access cm10 during this emergency room visit. Ortho shoe applied to left foot. Administered Medications: No medications were administered Medication: 16:03 VIS not applicable for this client. cm10 Outcome: 15:29 Discharge ordered by . snw 16:04 Discharged to home ambulatory, with family. cm10 16:04 Condition: good 16:04 Discharge instructions given to patient, Instructed on discharge instructions, follow up and referral plans. medication usage, Demonstrated understanding of instructions, follow-up care, medications, splint care, Prescriptions given X 1. 16:16 Patient left the ED. cm10 Signatures: Dispatcher [employer] EDYecenia Rowe, [facility] PROFILING MACHINE OPERATOR-Csnw Linda Valdez, RN RN aa5 Eyal Guerrero RN RN ll1 Cindy Godinez Clarissa, RN RN cm10
[2023-02-10 16:20] VITALS: BP 105/65; TEMP 98.1; O2SAT 100
== END 2023-02-10 16:16 | disposition home or self-care (01) ==
LOC: ER 13:56
DX: S93.402A Sprain of unspecified ligament of left ankle, initial encounter (principal); Z91.018 Allergy to other foods
CPT/HCPCS: 99283

== ENCOUNTER 2023-03-02 00:45 | Emergency (ER) | payer OTHER, SELFPAY ==
--- OUTSIDE RECORDS SUMMARY | 2023-03-02 00:52 | XMS REPORT | Continuity of Care Document ---
:[address] [facility] t Address [address] [facility] [address] [place] [address] Care Team Providers Name Role Phone Frederick Durán MD Primary Care Physician Brittnee Ramirez Attending Clinician Unavailable Luis Burciaga Attending Clinician Unavailable SUZY URIOSTEGUI Attending Clinician Unavailable Gila PICKERING, Suzy Rosales Attending Clinician Effie Marquez Attending Clinician Unavailable ANTONIA PIKE Attending Clinician Unavailable Shahzad PICKERING, Antonia Garzon Attending Clinician Gahnshyam Chavez Attending Clinician Unavailable , Osvaldo Evangelista [...] Clinician Ny Khan MD Attending Clinician Olivier CHART CLERK, Aneta Esparza Attending Clinician Unknown, Attending Attending Clinician Unavailable UNKNOWN, ATTENDING Attending Clinician Unavailable Pearl Chavez Attending Clinician Unavailable Aide COLE, Tashia Rae Attending Clinician Unavailable Berhane CHART CLERK, Lily Hummel Attending Clinician Lydia Bojorquez MD Attending Clinician Doctor Unassigned, Sayner Attending Clinician Unavailable Liberty Cormier Attending Clinician LIBERTY CAMP Attending Clinician Unavailable Wiliam MIRELES, Antonia Attending Clinician Kassidy Barnes Attending Clinician Elina Rome MD Attending Clinician [phone] KASSIDY ARENAS Attending Clinician Unavailable REJI SOTO Attending Clinician Unavailable Ivet PICKERING, Aiden Conde Attending Clinician SOSA ADAMES Attending Clinician Unavailable Sosa Adames MD Attending Clinician Santiago COLE, Sandra Hilton Attending Clinician Unavailable Ashley Avendano DO Attending Clinician Orquidea PICKERING, Mike Jaffe Attending Clinician [phone] Sujata Nixon Attending Clinician [phone] SUZY URIOSTEGUI Admitting Clinician Unavailable [place] KHAN [...] Number Effective Date Expiration Date S mónica [facility] [id number] 2021 00:00:00 [facility] [id number] 2020 00:00:00 Problems Condition Condition Condition Status Onset Resolution Last Treating Co mments Source Name Details Category Date Date Treatment Clinician Date Anxiety Anxiety Disease Active Univers [facility] Depression Depression Disease Active U nivers [facility] Allergies, Adverse Reactions, Alerts Allergy Allergy Status Severity Reaction(s) Onset Inactive Treating Comm ents Source Name Type Date Date Clinician MARCUS DA Active SV [facility] ACID- 1-16 Clear THROAT 00:00: [place] SWELLING 00 [facility] No Known DA Active U 0 [facility] Allergie 5-08 Clear s 00:00: [place] 00 [facility] No Known DA Active U 0 [facility] Allergie 5-08 Clear s 00:00: [place] 00 [facility] Malic Drug Active Swelling Univers Acid Allergy 12-24 ity of 00:00: [address] MALIC DRUG Active High Swelling 2018-0 Univers ACID INGREDI 6-08 ity of 00:00: [place] 00 [facility] MALIC DA Active SV TONGUE 2018-0 [facility] ACID SWELLING, 6-08 Clear THROAT 00:00: [place] CLOSING 00 [facility] SOUR DRUG Active Anaphylaxis 2018-0 Unive rs MOREAU INGREDI 4-30 ity of 00:00: [place] [address] Medical Page Sour Propensi Active Anaphylaxis 2018-0 Sour Uni vers [place] ty to 4-30 flavoring ity of adverse 00:00: on all [place] reaction 00 [facility] s Page Social History Social Habit Start Date Stop Date Quantity Comments Source ASSERTION 2022-02-27 [facility] 00:00:00 [facility] Exposure to 2022-10-07 2022-10-17 Not sure [facility] SARS-CoV-2 00:00:00 15:17:00 [facility] (event) Page Alcohol intake 2022-10-17 2022-10-17 Ex-drinker [facility] 00:00:00 00:00:00 (finding) [facility] Tobacco use and 2022-02-25 2022-02-25 Smokeless tobacco Un iversity of exposure 00:00:00 00:00:00 non-user [facility] Sex Assigned At 2000 2002 Universit y of 00:00:00 00:00:00 [facility] Smoking Status Start Date Stop Date Source Never smoked tobacco [facility] Medications Ordered Filled Start Stop Current Ordering Indication Dosage Frequency Signature Comments Components Source Medication Medication Date Date Medication? Clinician (SIG) Name Name FLUTICASONE 2020-07 Yes [id number] SPRAY 1 Univers PROPIONATE 2-02 SPRAY INTO ity of 50 00:00: EACH [place] mcg/actuati 00 NOSTRIL Medic al on nasal EVERY DAY Branch spray FLUTICASONE 2020-07 Yes [id number] SPRAY 1 Univers PROPIONATE 2-02 SPRAY INTO ity of 50 00:00: EACH [place] mcg/actuati 00 NOSTRIL Medic al on nasal EVERY DAY Branch spray EPINEPHrine 2019-07 Yes [id number] INJECT 0.3 Univers 0.3 mg/0.3 1-30 ML BY ity of mL 00:00: INTRAMUSCU [place] injection 00 LAR ROUTE Medic al ONCE NOW Branch FOR 1 DOSE. EPINEPHrine 2019-07 Yes [id number] INJECT 0.3 Univers 0.3 mg/0.3 1-30 ML BY ity of mL 00:00: INTRAMUSCU [place] injection 00 LAR ROUTE Medic al ONCE NOW Branch FOR 1 DOSE. Immunizations Ordered Immunization Filled Immunization Date Status Commen ts Source Name Name Meningococcal 2019-02-23 Completed University of Polysaccharide 00:00:00 [place] [facility] (groups A, C, Y and Branc h W-135) conjugate vaccine (MCV4P) Meningococcal 2019-02-23 Completed University of Polysaccharide 00:00:00 [place] [facility] (groups A, C, Y and Branc h W-135) conjugate vaccine (MCV4P) DTP 2005-01-21 Completed University of 00:00:00 [facility] HIB 3 Dose Schedule 2005-01-21 Completed Unive rsity of 00:00:00 [facility] HEPATITIS A 2005-01-21 Completed University of 00:00:00 [facility] Pneumococcal 7 2005-01-21 Completed University of Conjugate, PCV7 00:00:00 [facility] ical (Prevnar7) Branch DTP 2005-01-21 Completed University of 00:00:00 [facility] HIB 3 Dose Schedule 2005-01-21 Completed Unive rsity of 00:00:00 [facility] HEPATITIS A 2005-01-21 Completed University of 00:00:00 [facility] Pneumococcal 7 2005-01-21 Completed University of Conjugate, PCV7 00:00:[address] [facility] ical (Prevnar7) Branch MMR 2003-12-25 Completed University of 00:00:00 [facility] Polio (IPV/OPV) 2003-12-25 Completed Universit y of 00:00:00 [facility] Pneumococcal 7 2003-12-25 Completed University of Conjugate, PCV7 00:00:00 [facility] ical (Prevnar7) Branch MMR 2003-12-25 Completed University of 00:00:00 [facility] Polio (IPV/OPV) 2003-12-25 Completed Universit y of 00:00:00 [facility] Pneumococcal 7 2003-12-25 Completed University of Conjugate, PCV7 00:00:00 [facility] ical (Prevnar7) Branch DTP 2003-06-19 Completed University of 00:00:00 [facility] HIB 3 Dose Schedule 2003-06-19 Completed Unive rsity of 00:00:00 [facility] Hep B, Adol or Pedi 2003-06-19 Completed Unive rsity of Dosage 00:00:00 [facility] Polio (IPV/OPV) 2003-06-19 Completed Universit y of 00:00:00 [facility] DTP 2003-06-19 Completed University of 00:00:00 [facility] HIB 3 Dose Schedule 2003-06-19 Completed Unive rsity of 00:00:00 [facility] Hep B, Adol or Pedi 2003-06-19 Completed Unive rsity of Dosage 00:00:00 [facility] Polio (IPV/OPV) 2003-06-19 Completed Universit y of 00:00:00 [facility] Hep B, Adol or Pedi 2002 Completed Unive rsity of Dosage 00:00:00 [facility] Hep B, Adol or Pedi 2002 Completed Unive rsity of Dosage 00:00:00 [facility] Vital Signs Vital Name Observation Time Observation Value Comments Source Systolic blood 2022-10-17 20:18:00 99 mm[Hg] Univer sity of pressure [facility] Diastolic blood 2022-10-17 20:18:00 63 mm[Hg] Unive rsity of pressure [facility] Body temperature 2022-10-17 20:18:00 36.78 [place] Respiratory rate 2022-10-17 20:18:00 16 /min [facility] Heart rate 2022-10-17 19:56:00 92 /min [facility] Body height 2022-10-17 19:56:00 157.5 cm [facility] Body weight 2022-10-17 19:56:00 71.668 kg [facility] BMI 2022-10-17 19:56:00 28.90 kg/m2 [facility] Oxygen saturation in 2022-10-17 19:56:00 99 /min [facility] blood by [facility] Pulse oximetry Branch Procedures Procedure Date / Time Performed Performing Clinician Gisele rosario [id number] 2022-10-31 00:00:00 MAXBA [facility] [id number] 2022-10-30 00:00:00 [facility] [id number] 2021-03-26 00:00:00 [facility] [id number] 2021-03-26 00:00:00 MAXBA [facility] Encounters Start End Encounter Admission Attending Care Care Encounter Source Date/Time Date/Time Type Type Clinicians Facility Department ID 2022-10-17 Outpatient X [facility] [id number] Univers 17:56:29 ity [facility] 2021-05-19 Outpatient X [facility] [id number] Univers 04:10:53 ity of [facility] 2021-05-19 Emergency [facility] [id number] Univers 04:10:48 ity of [facility] 2021-05-18 Emergency [facility] [id number] Univers 12:59:52 ity of [facility] 2021-05-18 Emergency [facility] [id number] Univers 03:01:47 ity [facility] 2020-11-23 Inpatient [place], HCACL HC[facility]L [id number] [facility] 00:57:29 Brittnee 52 [facility] 2020-10-05 Inpatient HCACL HCACL [id number] [facility] 01:43:54 61 [facility] 2020-08-22 Inpatient HCACL KAELA [id number] [facility] 20:18:00 05 [facility] 2020-02-15 Inpatient HCACL KAELA [id number] [facility] 22:49:00 35 [facility] 2022-10-30 2022-11-02 Inpatient EL Patrica, [facility]ACL OBPP [id number] [facility] 19:17:00 18:53:00 Luis 14 [facility] 2022-10-17 2022-10-17 Outpatient X AD, [facility] [id number] Univers 14:59:00 17:00:00 SUZY ity [facility] 2022-10-17 2022-10-17 [facility] [id number] Univers 14:59:00 17:00:00 Suzy SAN 350.1.13.10 ity [facility] 4.2.7.2.686 [facility] [phone] [place] [address] Branch 2022-09-26 2022-09-27 Inpatient EM Maximos, HCACL OBANTE [id number] [facility] 22:39:00 17:00:00 Luis 72 [facility] 2022-09-07 2022-09-14 Inpatient EM Patrica[facility] [id number] [facility] 23:59:00 10:45:00 Luis 00 [facility] 2022-08-03 2022-08-03 Emergency EM Mojgan HCACL OLGA [id number] [facility] 15:04:00 16:59:00 y Effie 82 Sveta r [facility] 2022-03-20 2022-03-20 Outpatient R SHAHZAD [facility] [id number] Univers 14:10:00 14:10:00 [facility] 2022-03-20 2022-03-20 Telephone MARISOL Pike [id number] Univers 00:00:00 00:00:00 Antonia P PEDIATRIC 350.1.13.10 ity [id number] [place] [address] Branch [facility] 2022-03-16 2022-03-16 Outpatient R SHAHZAD [facility] [id number] Univers 14:10:00 14:10:00 [facility] 2022-03-13 2022-03-13 Outpatient Dao PIKE [facility] [id number] Univers 13:30:00 13:30:00 [facility] 2022-03-13 2022-03-13 Outpatient R SHAHZAD [facility] [id number] Univers 11:10:00 11:10:00 [facility] 2022-03-06 2022-03-06 Emergency EM Mahsa[facility] [id number] [facility] 15:06:00 16:12:00 Oluwadolapo 45 Cl [facility] 2022-03-04 2022-03-04 Telephone MARISOL Pike [id number] Univers 00:00:00 00:00:00 Antonia P PEDIATRIC 350.1.13.10 ity [place] [id number] [facility] 225 Branch CARE [facility] 2022-03-03 2022-03-03 Telephone MAR[place]OL [place] [id number] Univers 00:00:00 00:00:00 Antonia P PEDIATRIC 350.1.13.10 [place] [id number] [place] [address] Branch [facility] 2022-03-02 2022-03-02 Outpatient R SHAHZAD [facility] [id number] Univers 17:43:24 23:59:00 [facility] 2022-03-02 2022-03-02 Outpatient R SHAHZAD [facility] [id number] Univers 17:43:24 23:59:00 [facility] 2022-03-02 2022-03-02 [facility] BEULAH Pike [id number] Univers 17:30:00 23:59:00 Encounter Antonia Garzon Y HEALTH 350.1.13.10 ity of CL[place] [id number] [facility] 806 Branch 2022-02-26 2022-02-26 Nurse Nurse, Osvaldo DAMON 1.2.84 0.114 [id number] Univers 14:50:00 15:10:00 Visit Frederick Durán PEDIATRIC 350.1.13.10 ity [place] [id number] [facility] 314 Branch [facility] 2022-02-26 2022-02-26 Outpatient R FREDERICK DURÁN [facility] [id number] Univers 14:50:00 14:50:00 ity [facility] 2022-02-25 2022-02-25 Outpatient R SHAHZAD [facility] [id number] Univers 14:45:00 23:59:00 ANTONIA ity [facility] 2022-02-25 2022-02-25 [facility] MARISOL Pike [id number] Univers 14:45:00 23:59:00 Encounter Antonia P PEDIATRIC 350.1.13.10 ity [place] [id number] [facility] 809 [facility] 2022-02-25 2022-02-25 Outpatient Dao PIKE [facility] [id number] Univers 13:50:00 15:29:57 [facility] 2022-02-25 2022-02-25 Office MARISOL Pike [id number] Univers 13:50:00 15:29:57 Visit Antonia P PEDIATRIC 350.1.13.10 ity [place] [id number] [facility] 225 [facility] 2022-02-23 2022-02-23 [facility] [id number] Univers 15:50:00 15:50:00 [facility] 2022-02-12 2022-02-12 Emergency X DEBRA [facility] ERT [id number] Univers 21:31:00 22:34:00 [facility] 2022-02-12 2022-02-12 [facility] 1.2.840.114 [id number] Univers 21:31:00 22:34:00 [facility] 350.1.13.10 it [place] [phone] [address] ([facility]) 2021-11-11 2021-11-11 Emergency EM Bishop, [facility] AERS [id number] [facility] 00:16:00 00:55:00 Kishor 36 [facility] 2021-11-04 2021-11-04 Outpatient Dao ROME [facility] [id number] Univers 15:30:00 15:30:00 ELINA ity o f [facility] 2021-08-08 2021-08-08 Emergency EM Oalmita, [facility] AERS [id number] [facility] 22:06:00 22:30:00 Oluwadolapo 00 Cl [facility] 2021-06-13 2021-06-13 Refill Madhavi Roman 1.2.840.114 [id number] Univers 00:00:00 00:00:00 Ali PEDIATRIC 350.1.13.10 it[id number] [place] [address] Branch [facility] 2021-05-12 2021-05-12 Office AmauriMadhavi Marisol 1.2.840.114 [id number] Univers 13:41:54 14:13:40 Visit Ali Pediatric 350.1.13.10 ity [place] [id number] [address] 2021-05-12 2021-05-12 Outpatient R MADHAVI ROMAN [facility] [id number] [facility] 13:30:00 13:30:00 ity of [facility] 2021-03-25 2021-03-28 Inpatient EL Maximos, HC[facility] OBPP [id number] [facility] 14:56:00 15:32:00 Luis 40 [facility] 2021-03-12 2021-03-13 Emergency EM Billy [facility]ACL OLGA [id number] [facility] 21:07:00 01:05:00 Puckly, 24 [facility] 2021-03-01 2021-03-01 Emergency EM Maximos, HCACL OLGA [id number] [facility] 05:33:00 09:00:00 Luis 85 [facility] 2021-02-17 2021-02-17 Emergency EM Billy HCACL OLGA [id number] [facility] 15:17:00 16:47:00 Puckly, 82 [facility] 2021-02-12 2021-02-12 Emergency EM Billy HCACL OLGA [id number] [facility] 19:14:00 22:29:00 Puckly, 18 [facility] 2021-01-29 2021-01-29 Emergency EM Bhalani, HCACL OLGA [id number] [facility] 02:30:00 03:50:00 Dottie 33 [facility] 2021-01-13 2021-01-13 Emergency Nathalia Redding [facility] 1.2.840 .114 [id number] Univers 01:18:00 02:30:00 Ny Khan 350.1.13.10 ity of [place] 4.2.7.2.686 [facility] [place] [id number] [place] [address] Branch 2021-01-13 2021-01-13 Emergency Nathalia Redding [facility] 1.2.840 .114 [id number] 01:18:00 02:30:00 Ny Khan 350.1.13.10 [place] 4.2.7.2.686 [place] [id number] [facility] 2021-01-11 2021-01-11 Urgent Grow, Aneta Vilma Damon 1.2.840 .114 [id number] [facility] 17:51:24 18:25:45 Care Unknown, Attending Pediatric 350.1.13. 10 ity of s and 4.2.7.2.686 [facility] s Adult [phone] [place] [address] Branch [facility] 2021-01-11 2021-01-11 Urgent Marisol Aguayo 1.2.840.114 [id number] 17:51:24 18:25:45 Care Aneta Pediatric 350.1.13.10 [place] and 4.2.7.2.686 Adult [id number] Primary [facility] 2021-01-11 2021-01-11 Outpatient R UNKNOWN, [facility] [id number] [facility] 18:00:00 18:00:00 ATTENDING ity of [facility] 2020-12-25 2020-12-25 Emergency EM LUCINDA Chavez OLGA [id number] [facility] 15:08:00 18:26:00 Pearl 03 [facility] 2020-11-23 2020-11-23 Emergency EM LUCINDA Ramirez OLGA [id number] [facility] 00:02:00 02:58:00 Brittnee 52 [facility] 2020-11-01 2020-11-01 Letter NICOLAS Noble 1.2.840.114 [id number] Univers 00:00:00 00:00:00 (Out) Tashia SHELTON 350.1.13.10 it y of [facility] 4.2.7.2.686 [place] [id number] [facility] 019 Branch 2020-11-01 2020-11-01 Lydia NICOLAS Noble 1.2.840.114 [id number] 00:00:00 00:00:00 (Out) Tashia SHELTON 350.1.13.10 [facility] 4.2.7.2.686 [id number] [facility] 2020-10-30 2020-10-31 [facility] [id number] Univers 22:11:00 00:46:00 Lily Hummel Merna 350.1.13.10 ity [facility] 4.2.7.2.686 [place] [id number] [address] 2020-10-30 2020-10-31 [facility] [id number] 22:11:00 00:46:00 Lily Estephanie Merna 350.1.13.10 [place] 4.2.7.2.686 [place] [id number] [facility] 2020-10-26 2020-10-26 Urgent Grow, Aneta Vilma Damon 1.2.840 .114 [id number] Univers 18:33:25 19:03:11 Care Unknown, Attending Pediatric 350.1.13. 10 ity of [place] [id number] [address] Care [facility] 2020-10-26 2020-10-26 Urgent GrowMarisol 1.2.840.114 [id number] 18:33:25 19:03:11 Care Aneta Pediatric 350.1.13.10 [place] and 4.2.7.2.686 Adult [id number] [place] [address] Care Clinic 2020-10-26 2020-10-26 Outpatient R UNKNOWN, [facility] [id number] Univers 19:00:00 19:00:00 ATTENDING ity of [facility] 2020-09-18 2020-09-19 Emergency [facility] [id number] [id number] Univers 23:47:00 01:47:00 Lydia San 350.1.13.10 ity of [place]2.[place] [id number] [facility] 084 Page 2020-09-18 2020-09-19 Emergency [facility] [id number] 23:47:00 01:47:00 Lydia San 350.1.13.10 [place] 4.2.7.2.686 [place] [id number] [facility] 2020-09-18 2020-09-18 Orders Doctor NICOLAS 1.2.840.114 [id number] Univers 00:00:00 00:00:00 Only Unassigned, NIKITA 350.1.13.10 ity of [place] [facility] 4.2.7.2.686 [place] [phone] [place] [address] Branch 2020-09-18 2020-09-18 Orders Doctor NICOLAS 1.2.840.114 [id number] 00:00:00 00:00:00 Only Unassigned, NIKITA 350.1.13.10 [facility] [facility] 4.2.7.2.686 [id number] 009 2020-08-22 2020-08-22 Office Madhavi Roman 1.2.840.114 [id number] Univers 15:52:31 16:12:31 Visit Ali Pediatric 350.1.13.10 ity of [place] [id number] [place] [address] Branch Care [facility] 2020-08-22 2020-08-22 Office Madhavi Roman 1.2.840.114 [id number] 15:52:31 16:12:31 Visit Ali Pediatric 350.1.13.10 s and 4.2.7.2.686 Adult [id number] [place] [address] Care Clinic 2020-08-22 2020-08-22 Outpatient MADHAVI MCNAIR [facility] [id number] Univers 16:00:00 16:00:00 ity of [facility] 2020-08-22 2020-08-22 Outpatient MADHAVI MCNAIR [facility] [id number] Univers 13:40:00 13:40:00 ity of [facility] 2020-08-13 2020-08-13 Telephone Marisol Camp 1.2.840.114 [id number] Univers 00:00:00 00:00:00 [facility] 350.1.13.10 ity of [place] [id number] [address] 2020-08-09 2020-08-09 Telephone Marisol Camp 1.2.840.114 [id number] Univers 00:00:00 00:00:00 [facility] 350.1.13.10 ity of [place] [id number] [address] 2020-08-09 2020-08-09 Telephone Marisol Camp 1.2.840.114 [id number] Univers 00:00:00 00:00:00 [facility] 350.1.13.10 ity of [place] [id number] [address] 2020-08-08 2020-08-08 Office Marisol Camp 1.2.840.114 [id number] Univers 14:46:51 16:51:17 Visit [facility] 350.1.13.10 ity of [place] and [place] [id number] [address] 2020-08-08 2020-08-08 Outpatient R ZOË [facility] [id number] Univers 15:00:00 15:00:00 LIBERTY ity of [facility] 2020-07-03 2020-07-03 Orders Doctor VALENZUELA 1.2.840.114 [id number] Univers 00:00:00 00:00:00 Only Unassigned, NIKITA 350.1.13.10 ity of [place] [facility] 4.2.7.2.686 [place] [id number] [address] 2020-06-17 2020-06-17 Office Marisol Swain 1.2.840.114 [id number] Univers 13:35:31 14:15:17 Visit Antonia Pediatric 350.1.13.10 ity of [place] and 4.2.7.2.[place] [id number] [address] 2020-06-17 2020-06-17 Outpatient Dao ROME [facility] [id number] Univers 13:40:00 13:40:00 ELINA ity o f [facility] 2020-05-18 2020-05-18 Refill Marisol Arenas 1.2.840.114 [id number] Univers 00:00:00 00:00:00 Kassidy J Pediatric 350.1.13.10 ity of [place] and [place] [phone] [address] 2020-05-14 2020-05-14 Telephone Marisol Rome 1.2.840.114 [id number] Univers 00:00:00 00:00:00 Elina Pediatric 350.1.13.10 ity of [place] and 4.2.7.2.686 [place] Adult [id number] [address] 2020-05-06 2020-05-06 Telephone Marisol Rome 1.2.840.114 [id number] Univers 00:00:00 00:00:00 Elina Pediatric 350.1.13.10 ity of [place] and 4.2.7.2.686 [place] Adult [id number] [address] 2020-04-26 2020-04-26 Office Marisol Arenas 1.2.840.114 [id number] Univers 15:36:43 15:56:43 Visit Kassidy J Pediatric 350.1.13.10 ity of [place] and 4.2.[place].2.[place] [id number] [address] 2020-04-26 2020-04-26 Outpatient Dao ARENAS [facility] [id number] Univers 15:40:00 15:40:00 KASSIDY ity of [facility] 2020-04-15 2020-04-15 RefMarisol Mullins 1.2.840.114 [id number] Univers 00:00:00 00:00:00 [facility] 350.1.13.10 ity of [place] [id number] [address] 2020-01-03 2020-01-03 Outpatient R BRITTANY [facility] [id number] Univers 14:40:00 14:40:00 REJI ity of [facility] 2019-10-27 2019-10-27 Telephone Aiden Cooney 1.2.840.114 [id number] Univers 00:00:00 00:00:00 Elton Pediatric 350.1.13.10 ity of [place] and 4.2.[place] [id number] [address] 2019-10-18 2019-10-19 Emergency X JEFFERSON [facility] [id number] Univers 23:49:28 02:20:00 [facility]A ity [facility] 2019-10-18 2019-10-19 Emergency [facility] 1.2.840.114 [id number] Univers 23:49:28 02:20:00 [facility] 350.1.13.10 it y of [facility] 4.2.7.2.686 [place] [phone] [address] ([facility]) 2019-10-18 2019-10-18 Nurse NICOLAS Henderson 1.2.840.114 [id number] Univers 00:00:00 00:00:00 Triage Sandra Hilton NIKITA 350.1.13.10 ity of [facility] 4.2.7.2.686 [place] [phone] [address] 2019-10-09 2019-10-09 Telephone Aiden Cooney 1.2.840.114 [id number] Univers 00:00:00 00:00:00 [facility] 350.1.13.10 [place] [phone] [address] 2019-09-21 2019-09-21 Office Marisol Camp 1.2.840.114 [id number] Univers 13:27:07 17:09:32 Visit [facility] 350.1.13.10 ity [place] [phone] [address] 2019-09-21 2019-09-21 Outpatient Dao CAMP [facility] [id number] Univers 13:40:00 13:40:00 LIBERTY ity of [facility] 2019-08-30 2019-08-30 Office Marisol Pike 1.2.840.114 [id number] Univers 15:01:37 15:11:37 Visit Antonia P Pediatric 350.1.13.10 ity of [place] [phone] [address] 2019-08-22 2019-08-22 Office Aiden Cooney 1.2.840.114 [id number] Univers 15:33:37 15:43:37 Visit [facility] 350.1.13.10 ity of [place]2.[place] [phone] [address] 2019-08-21 2019-08-21 Emergency Juan Alberto [facility] 1.2.840.114 [id number] Univers 09:14:31 10:35:00 Ashley San 350.1.13.10 ity of [place] 4[place]2.7.2.686 [place] [phone] [place] [address] [place] 2019-08-10 2019-08-10 Nurse Nurse, Osvaldo Damon 1.2.84 0.114 [id number] Univers 11:01:47 11:21:47 Visit [facility]ia [facility] 350.1.13.10 ity of [place] and [place].2.[place].2.[place] [phone] [address] 2019-08-09 2019-08-09 Office Marisol Pike 1.2.840.114 [id number] Univers 09:22:22 12:41:52 Visit Antonia [facility] 350.1.13.10 ity of [place] and [place] [phone] [address] 2019-08-09 2019-08-09 Orders NICOLAS Pike 1.2.840.114 [id number] Univers 00:00:00 00:00:00 Only Antonia SHELTON 350.1.13.10 it y of HOSPITAL 4.2.7.2.686 [place] [phone] [address] 2019-07-28 2019-07-28 Orders NICOLAS 1.2.840.114 [id number] Univers 00:00:00 00:00:00 Only Unassigned, NIKITA 350.1.13.10 ity of [facility] 4.2.7.2.686 [place] [phone] [address] 2019-03-30 2019-03-30 Office Marisol Arenas 1.2.840.114 [id number] Univers 12:55:51 13:15:51 Visit Kassidy J [facility] 350.1.13.10 ity of [place] and [place]2.7.2.686 [place] [phone] [facility] [address] [facility] 2019-03-29 2019-03-29 Telephone Marisol Rome 1.2.840.114 [id number] Univers 00:00:00 00:00:00 [facility] 350.1.13.10 ity of [place] and 4.2.7.2.686 [place] Adult [phone] [facility] [address] [facility] 2019-03-27 2019-03-27 Office Aiden Cooney 1.2.840.114 [id number] Univers 09:41:28 09:51:28 Visit [facility] 350.1.13.10 ity of [place] and [place].2.[place] [phone] [facility] [address] [facility] 2019-03-22 2019-03-22 Hospital Aiden Cooney 1.2.840.114 [id number] Univers 15:41:22 23:59:00 Encounter [facility] 350.1.13.10 ity of [place] and [place].2.7.2.686 [place] [phone] [facility] [address] [facility] 2019-03-21 2019-03-22 Office Mike Heard 1.2 .840.114 [id number] [facility] 15:31:39 09:26:38 Visit IvetAiden [facility] 350.1.13. 10 ity of [place] and [place].2.7.2.686 [place] [phone] [address] 2019-03-08 2019-03-08 Office Aiden Cooneyin 1.2.840.114 [id number] Univers 09:03:07 09:13:07 Visit [facility] 350.1.13.10 ity of [place] and 4.2.7.2.686 [place] [id number] [address] 2019-03-03 2019-03-03 Office Aiden Cooney Marisol 1.2.840.114 [id number] [facility] 10:38:58 11:09:50 Visit [facility] 350.1.13.10 ity of [place] and [place].2.[place] [phone] [address] 2019-02-10 2019-02-10 [facility] 1.2.840.114 [id number] [facility] 15:44:39 23:59:00 Encounter njumon, SPECIALTY 350.1.13.10 ity of [place] [facility].2.[place] AT [phone] [address] 2019-02-10 2019-02-10 [facility] 1.2.840.114 [id number] Univers 08:00:00 15:43:00 Encounter njumon, SPECIALTY 350.1.13.10 ity of [place]2.[place] AT [phone] [address] Results Test Description Test Time Test Comments Results Result Comments Source SURGICAL 2022-11-03 14:08:00 Test Item Value Reference Range Interpretation Comme nts SURGICAL RUN (test DATE: 11/03/22 [place] - LAB PAGE 1 RUN TIME: 1409 Specimen Inquiry RUN USER: INTERFACE code = ARTEMIO SR) ENT: LUIS EDMONDS LOC: JORDI U #: [id number] AGE/SX: 21/F ROOM: [facility] RE10/30/22REG DR: Luis Burciaga MD : 02 BED: 1 DIS: 11/02/22 STATUS: DIS IN TLOC: SPEC #: [id number] RECD: 0 11/02/22 STATUS: GLENN REGreta #: [id number] SLOAN: 10/31/22- SUBM DR: Luis Burciaga MD ENTERED: 11/02/22 SP TYPE: SURGICAL OTHR DR: ORDERED: [id number], ANATOMIC SPEC PROCEDURES: 14103 () TISSUES: A. PLACENTA, THIRD TRIMESTER (28 + WEEKS) CLINICAL HISTORY BRITTNY GUERIN FINAL DIAGNOSIS Placenta: Third trimester placenta with acute chorionitis, deciduitis; 713 g (expected cqnr655 g); trivascular umbilical cord without significant inflammation.. [...] weighs 713 g. Technical component performed at [facility],[address] [place] [address], [place] [address] Unless gross only, the diagnosis is based upon m icroscopic examination.Immunohistochemistry: This test was developed and its performance characteristicsdetermined by this laboratory. It has not been approved nor does it need approvalby the [place] FDA. Appro priate positive and negative controls are reviewed and judgedto be acceptable. This laboratory is certified under the Clinical Laboratory ImprovementAmendments (CLIA-88) as qualified to [facility] high complexity clinical laboratory testing. CLINICAL INFORMATION 37.1 IUP Signed SIGNATURE ON FILE Yon Emmanuel 11/03/22 1408 END OF REPORT CBC W/AUTO [id number] 07:54:00 Test Item Value Reference Range Interpretation [...] (test code NO = MDIFF) RAPID PLASMA [id number] 11:50:00 Test Item Value Reference Range Interpretation Comments RAPID PLASMA REAGIN (test code = NONREACTIVE NONREACTIVE RPR) AG HEPATITIS B [id number] 11:50:00 Test Item Value Reference Range Interpretation Comments AG HEPATITIS B SURFACE NON REACTIVE INDEX NonReactive (test code = HBSAG) AB HIV 1 11:50:00 Test Item Value Reference Range Interpretation Comments AB HIV 1 2 (test code = TKT14OJ) Nonreactive Nonreactive CBC W/AUTO [id number] 19:59:00 Test Item Value Reference Range Interpretation [...] (test code NO = MDIFF) AMNISURE (ROM) [id number] 18:12:00 Test Item Value Reference Range Interpretation Comments AMNISURE (ROM) TEST (test code = POSITIVE NEGATIVE A AMNI) AMNISURE (ROM) [id number] 21:41:00 Test Item Value Reference Range Interpretation Comments AMNISURE (ROM) TEST (test code = NEGATIVE NEGATIVE AMNI) [id number] 20:11:00 Test Item Value Reference Range Interpretation Comments FIBRONECTIN (test code = FFN) POSITIVE NEGATIVE A UA RFLX MICR CULT IF [id number] 20:11:00 Test Item Value Reference Range Interpretation [...] PainSpecimen Description: CLEAN CATCHDRUGS OF ABUSE SCREEN [id number] 20:10:00 Test Item Value Reference Range Interpretation [...] ed for non-medical pur poses. - BIOPHYS [id number] 00:00:00 [facility] MADELINE THOUSAND OAKSName: BI EDMONDS : 2000 Sex: F Name: BI EDMONDS [facility] [place] : 2000 Age/S: 21 / F [address] [place] [address] Blvd Unit #: [id number] Loc: [place] [address] Phys: Zoila Gomez DO Acct: [id number] Dis Date: Status: REG ER PHONE#: [phone] Exam Date: 09/26/20222004 FAX #: [phone] Reason: decreased FM EXAMS: CPT CODE: [id number] US BIOPHYS PROF [id number] PROCEDURE INFORMATION: Exam: US Biophysical Profile Without Non-Stress Test Exam date and time: 09/26/2022 7:49 PM Age: 21 years old Clinical indication: Pain indication: Abdominal pain; ; Additional info: Decreased fm TECHNIQUE: Imaging protocol: US biophysical profile without non-stress testing. COMPARISON: US FET BIO PH TN W/O NST 09/07/2022 11:03 PM A limited [...] CC: Zoila Gomez DO Technologist: Josefina Fitch Trnsdb Date/Time: 09/26/2022 (2113) Karoline Orig Print D/T: S: 09/26/2022 (2113) Probe: PAGE 1 Signed Report- US PREG AFTER [id number] 00:00:00 [facility] 2000 Sex: F Name: BI EDMONDS [facility] : 2000 Age/S: 21 / F [address] [place] [address] Unit #: [id number] Loc: [place] [address] Phys: Zoila Gomez DO Acct: [id number] Dis Date: Status: REG ER PHONE#: [phone] Exam Date: 09/26/20222004 FAX #: [phone] Reason: PTL EXAMS: CPT CODE: [id number] US PREG AFTER TRI 36090 PROCEDURE INFORMATION: Exam: US After First Trimester, [...] 1 Signed Report (CONTINUED) Name: BI EDMONDS [facility] : 2000 Age/S: 21 / F [address] [place] [address] Unit #: [id number] Loc: [place] [address] Phys: Zoila Gomez DO Acct: [id number] Dis Date: Status: REG ER PHONE #: [phone] Exam Date: 09/26/20222004 FAX #: [phone] Reason: PTL EXAMS: CPT CODE: [id number] US PREG AFTER 1ST TRI 31673 (Continued) movement: 2. breathin Amniotic fluid: 2 Total score 8/8 IMPRESSION: 1. Single viable intrauterine gestation in cephalic presentation. 2. Normal growth concordant with dates. 3. Normal biophysical profile. at 2117 Reported and signed by: Jeromy Wolfe M.D. CC: Zoila Gomez DO Technologist: Josefina Fitch Trnsdb Date/Time: 09/26/2022 (2116) [email or web address] Orig Print D/T: S: 09/26/2022 (0484) Probe: PAGE 2 Signed ReportAMNISURE (ROM) [id number] 14:39:00 Test Item Value Reference Range Interpretation Comments AMNISURE (ROM) TEST (test code = NEGATIVE NEGATIVE AMNI) CHLAMYDIA GC DNA BY [id number] 13:07:00 Test Item Value Reference Range Interpretation Comments C. TRACHOMATIS DNA BY Negative Negative PCR (test code = CHLAMTDNA) N. GONORRHOEAE DNA BY Negative Negative Perfor med At: HD PCR (test code = [facility] [id number] NGONORDNA) [place], [place] [id number] Marc Rosales MD Ph:[phone] UA RFLX MICR CULT IF [id number] 21:16:00 Test Item Value Reference Range Interpretation [...] culture: Suprapubic PainSpecimen Description: CLEAN CATCHRAPID PLASMA [id number] 11:04:00 Test Item Value Reference Range Interpretation Comments RAPID PLASMA REAGIN (test code = NONREACTIVE NONREACTIVE RPR) AG HEPATITIS B [id number] 11:04:00 Test Item Value Reference Range Interpretation Comments AG HEPATITIS B SURFACE NON REACTIVE INDEX NonReactive (test code = HBSAG) AB HIV 1 11:04:00 Test Item Value Reference Range Interpretation Comments AB HIV 1 2 (test code = FSK71BS) Nonreactive Nonreactive [id number] 08:05:00 Test Item Value Reference Range Interpretation Comments MAGNESIUM (test code = MAG) 4.22 mg/dL 1.80-2.40 HH CBC W/AUTO [id number] 00:08:00 Test Item Value Reference Range Interpretation [...] REQUIRED (test code NO = MDIFF) - [facility] BIO PH TN W/O [id number] 00:00:00 [facility] MADELINE COFFMANName: LUIS EDMONDS : 2000 Sex: F Name: LUIS EDMONDS [facility] Madeline Coffman : 2000 Age/S: 21 / F [address] [place], [place] [address]vd Unit #: [id number] Loc: [facility] [place] [address] Phys: Juany Carrillo MD Acct: [id number] Dis Date: Status: ADM IN PHONE #: [phone] Exam Date: 09/07/20222315 FAX #: [phone] Reason: IUP@29 wks; Leaking fluid; ROM plus positive EXAMS: CPT CODE: [id number] US FET BIO PH TN W/O NST 30184 PROCEDURE INFORMATION: Exam: US , Limited Exam [...] 1 Signed Report (CONTINUED) Name: LUIS EDMONDS [facility] [place] : 2000 Age/S: 21 / F [address] [place] [address] Unit #: [id number] Loc: [place] [address] Phys: Juany Carrillo MD Acct: [id number] Dis Date: Status: ADM IN PHONE #: [phone] Exam Date: 09/07/2022 2316 FAX #: [phone] Reason: IUP@29 wks; Leaking fluid; ROM plus positive EXAMS: CPT CODE: [id number] US FET BIO PH TN W/O NST 21168 (Continued) A limited transabdominal obstetrical ultrasound was [...] (0002) Probe: PAGE 2 Signed Report- US [id number] 00:00:00 [facility] : 2000 Sex: F Name: LUIS EDMONDS [facility] [place] : 2000 Age/S: 21 / F [address] [place] [address] Blvd Unit #: [id number] Loc: [place] [address] Phys: Juany Carrillo MD Acct: [id number] Dis Date: Status: ADM IN PHONE #: [phone] Exam Date: 09/07/20222314 FAX #: [phone] Reason: see US FET BIO PH TN W/ONST EXAMS: CPT CODE: [id number] LTD 64685 PROCEDURE INFORMATION: Exam: US , Limited Exam [...] 1 Signed Report (CONTINUED) Name: LUIS EDMONDS [facility] Madeline Coffman : 2000 Age/S: 21 / F [address] [place] [address] Unit #: [id number] Loc: [place] [address] Phys: Juany Carrillo MD Acct: [id number] Dis Date: Status: ADM IN PHONE #: [phone] Exam Date: 09/07/20225 FAX #: [phone] Reason: see US FET BIO PH TN W/O NST EXAMS: CPT CODE: [id number] [place] LTD 29236 (Continued) A limited transabdominal obstetrical ultrasound was [...] A AMNI) UA RFLX MICR CULT IF [id number] 22:12:00 Test Item Value Reference Range Interpretation [...] for culture: Suprapubic PainSpecimen Description: CLEAN CATCHFETAL [id number] 16:47:00 Test Item Value Reference Range Interpretation Comments FIBRONECTIN (test code = FFN) NEGATIVE NEGATIVE URINALYSIS [id number] 16:34:00 Test Item Value Reference Range Interpretation [...] SEEN - XR ANKLE 3 + V [id number] 00:00:00 [facility]IS [facility] : 2000 Sex: F FAX: Emily Mckoy MD [phone] [place]: [place] St: PRE FAX: Romeo Chavez Name: LUIS EDMONDS FSED : 2000 Age/S: 21/F [address] [facility] Unit #: [id number] Loc: [place] [address] Phys: Ghanshyam Chavez MD Acct: [id number] Dis Date: Status: PRE ER PHONE #: Exam Date: 03/06/2022 1600 FAX #: Reason: R ANKLE PAIN AFTER FALL EXAMS: CPT CODE: [id number] XR ANKLE 3 + V RT 35843 PROCEDURE INFORMATION: Exam: XR Right Ankle Exam [...] assessment. IMPRESSION: No fracture or dislocation at 1600 Reported and signed by: Emeka Pickering M.D. CC: Emily Artis MD; Ghanshyam Wesley Technologist: Katerina Rosas RT(R)(CT) Trnscrd Date/Time/By: 03/06/2022 (1394) : By: KaneSBL OrigPrint D/T: S: 03/06/2022 (7561) PAGE 1 Signed Report- XR FOOT 3 + V [id number] 00:00:00 [facility]EN[facility]: LUIS EDMONDS : 2000 Sex: F FAX: Emily Mckoy MD [phone] [place]: [place] St: PRE FAX: Romeo Chavez Name: LUIS EDMONDS FSED : 2000 Age/S: 21/F [address] [facility] Unit #: [id number] Loc: [place] [address] Phys: Ghanshyam Chavez MD Acct: [id number] Dis Date: Status: PRE ER PHONE #: Exam Date: 03/06/2022 5488 FAX #: Reason: r foot injury EXAMS: CPT CODE: [id number] XR FOOT 3 + V RT 64859 PROCEDURE INFORMATION: Exam: XR Right Foot Exam [...] Technologist: Katerina Rosas RT(R)(CT) Trnscrd Date/Time/By: 03/06/2022 (2686) : By: KaneSBL Orig Print D/T: S: 03/06/2022 (8485) PAGE 1 Signed ReportURINE HCG TRIAGE (ER ONLY)2021-11-11 08:40:00 Test Item Value Reference Range Interpretation Comments URINE HCG TRIAGE (ER ONLY) (test NEGATIVE Negative code = HCGTRIAGE) Urine Test Result: NEGATIVEAre internal controls (presence of a control line & clear background) OK? YLot # of HCG Test Kit: [id number] Date of Kit: 02/15/23Test Performed by: Carlo Perfomed on: 11/11/21COMMENTS: NEGATIVEUA DIPSTICK [id number] 00:46:00 Test Item Value Reference Range Interpretation Comments UA GLUCOSE DIPSTIC POC NEGATIVE NEGATIVE (test code = GLUUP) UA BILIRUBIN DIPSTICK NEGATIVE NEGATIVE (test code = BILU) UA KETONE DIPSTICK POC NEGATIVE NEGATIVE (test code = KETUP) UA SPECIFIC GRAVITY (test 1.010 1.005-1.030 N code = SGU) UA BLOOD DIPSTIC POC NEGATIVE NEGATIVE Perform ed by (test code = BLUP) certified spin table operator at [facility] UA PH DIPSTIC POC (test 7 5.0-7.0 N code = PHUP) UA PROTEIN DIPSTICK POC NEGATIVE NEGATIVE (test code = DPROUP) UA UROBILINIOGEN QUAL NORMAL 0.2-1.0 (test code = UROQL) UA NITRITE DIPSTICK POC NEGATIVE Negative (test code = NITUP) UA LEUKOCYTE ESTERASE W Negative NEGATIVE REFLEX (test code = LEUUR) SURGICAL PATH [id number] 13:13:00 Test Item Value Reference Range Interpretation Comments SURGICAL PATH SPECIMENS (test code = S) RUN DATE: 03/28/21 [place] - LAB PAGE 1 RUN TIME: 1313 Specimen Inquiry RUN USER: INTERFACE ARTEMIO ENT: SUELUIS LOC: MAIKEL U #: [id number] AGE/SX: 20/F ROOM: [facility] RE03/25/21REG DR: Luis Burciaga MD : [birth year] BED: 1 DIS: STATUS: ADM IN TLOC: SPEC #: [id number] RECD: 03/27/21-1018 STATUS: SOUKyra REQ #: [id number] SLOAN: 03/26/21- SUBM DR: Luis Burciaga MD ENTERED: 03/27/21-1019 SP TYPE: SURG SPEC OTHR DR: ORDERED: GM LEVEL 5 CODES: IH4522 - PLACENTA, NOS PROCEDURES: GM LEVEL 5 [...] 03/28/21 1313 END OF REPORT CBC W/AUTO [id number] 07:03:00 Test Item Value Reference Range Interpretation [...] code NO = MDIFF) CORD VENOUS BLOOD [id number] 18:41:00 Test Item Value Reference Range Interpretation [...] = 17 % O2SCV) CORD ARTERIAL BLOOD [id number] 18:40:00 Test Item Value Reference Range Interpretation [...] O2S/C) 25 % 72-77 L RAPID PLASMA [id number] 10:40:00 Test Item Value Reference Range Interpretation Comments RAPID PLASMA REAGIN (test code = NONREACTIVE NONREACTIVE RPR) AG HEPATITIS B [id number] 10:40:00 Test Item Value Reference Range Interpretation Comments AG HEPATITIS B SURFACE NON REACTIVE INDEX NonReactive (test code = HBSAG) AB HIV 1 10:40:00 Test Item Value Reference Range Interpretation Comments AB HIV 1 2 (test code = IRM06ZW) Nonreactive Nonreactive COVID 19 Asymptomatic IH [id number] 20:20:00 Test Item Value Reference Range Interpretation [...] moderate, high or waivedcomplexit y tests. URINALYSIS [id number] 18:48:00 Test Item Value Reference Range Interpretation [...] MUCU) TRACE /LPF NONE SEEN RAPID PLASMA [id number] 18:11:00 Test Item Value Reference Range Interpretation Comments RAPID PLASMA REAGIN (test code = RPR) NONREACTIVE AG HEPATITIS B [id number] 18:11:00 Test Item Value Reference Range Interpretation Comments AG HEPATITIS B SURFACE NON REACTIVE INDEX NonReactive (test code = HBSAG) AB HIV 1 18:11:00 Test Item Value Reference Range Interpretation Comments AB HIV 1 2 (test code = CJY36YM) Nonreactive Nonreactive COMPREHENSIVE METABOLIC [id number] 17:45:00 Test Item Value Reference Range Interpretation [...] N TOTAL (test code = ALKP) URIC [id number] 17:45:00 Test Item Value Reference Range Interpretation Comments URIC ACID (test code = URIC) 4.0 mg/dL 2.6-7.2 N LACTIC DEHYDROGENASE(LDH)2021-03-25 17:45:00 Test Item Value Reference Range Interpretation Comments LACTIC DEHYDROGENASE(LDH) (test 225 IUnits/L 84-246 N code = LDH) CBC W/AUTO [id number] 17:24:00 Test Item Value Reference Range Interpretation [...] REQUIRED (test code = MDIFF) CBC W/AUTO [id number] 17:24:00 Test Item Value Reference Range Interpretation [...] (test code NO = MDIFF) - BIOPHYS [id number] 00:00:00 [facility] LUIS EDMONDS : 2000 Sex: F Name: LUIS EDMONDS [facility] [place] : 2000 Age/S: 20 / F [address] [place] [address] Unit #: [id number] Loc: [place] [address] Phys: Effie Solitario MD Acct: [id number] Dis Date: Status: REG ER PHONE #: [phone] Exam Date: 03/12/202141 FAX #: [phone] Reason: Possible SROM, please evaluate ISMA EXAMS: CPT CODE: [id number] US BIOPHYS PROF 27630 PROCEDURE INFORMATION: Exam:US Biophysical Profile With Non-Stress [...] Probe: PAGE 1 Signed Report AMNISURE (ROM) [id number] 22:05:00 Test Item Value Reference Range Interpretation Comments AMNISURE (ROM) TEST (test code = NEGATIVE NEGATIVE AMNI) URINALYSIS [id number] 21:48:00 Test Item Value Reference Range Interpretation [...] = MUCU) TRACE /LPF NONE SEEN URINALYSIS [id number] 07:00:00 Test Item Value Reference Range Interpretation [...] TRACE /LPF NONE SEEN - US BIOPHYS [id number] 00:00:00 [facility] 2000 Sex: F Name: LUIS EDMONDS [facility] : 2000 Age/S: 20 / F [address] [place] [address] Bl Unit #: [id number] Loc: [place] [address] Phys: Effie Solitario MD Acct: [id number] Dis Date: Status: REG ER PHONE #: [phone] Exam Date: 03/01/2021 0758 FAX #: [phone] Reason: decreased movements EXAMS: CPT CODE: [id number] US BIOPHYS PROF [id number] PROCEDURE INFORMATION: Exam: US FetalBiophysical Profile With [...] Probe: PAGE 1 Signed Report AMNISURE (ROM) [id number] 16:16:00 Test Item Value Reference Range Interpretation Comments AMNISURE (ROM) TEST (test code = NEGATIVE NEGATIVE AMNI) [id number] 16:16:00 Test Item Value Reference Range Interpretation Comments FIBRONECTIN (test code = FFN) NEGATIVE NEGATIVE [id number] 20:50:00 Test Item Value Reference Range Interpretation Comments FIBRONECTIN (test code = FFN) NEGATIVE NEGATIVE URINALYSIS [id number] 20:32:00 Test Item Value Reference Range Interpretation [...] TRACE /LPF NONE SEEN - US BIOPHYS [id number] 00:00:00 [facility] : 2000 Sex: F Name: LUIS EDMONDS [facility] : 2000 Age/S: 20 / F [address] [place] [address] Unit #: [id number] Loc: [place] [address] Phys: Effie Solitario MD Acct: [id number] Dis Date: Status: REG ER PHONE #: [phone] Exam Date: 02/12/20212122 FAX #: [phone] Reason: Decreased movements EXAMS: CPT CODE: [id number] US BIOPHYS PROF 67736 PROCEDURE INFORMATION: Exam: US Biophysical Profile With [...] 1 Signed Report (CONTINUED) Name: LUIS EDMONDS [facility] : 2000 Age/S: 20 / F [address] [place] [address] Blvd Unit #: [id number]: [place] [address] Phys: Effie Solitario MD Acct: [id number] Dis Date: Status: REG ER PHONE #: [phone] Exam Date: 02/12/20212122 FAX #: [phone] Reason: Decreased movementsEXAMS: CPT CODE: [id number] US BIOPHYS PROF [id number] <Continued> at 2121 Reported and signed by: Geovanny Hughes D.O. CC: Technologist: Yuki Ray RDMS()(OB) Trnscb Date/Time: 02/12/2021 (2121) [email or web address] Orig Print D/T: S: 02/12/2021 (2148) Probe: PAGE 2 Signed ReportURINALYSIS [id number] 03:25:00 Test Item Value Reference Range Interpretation [...] MUCU) TRACE /LPF NONE SEEN - US [id number] 17:34:00 [facility] [place] LUIS ED[facility]DS : 2000 Sex: F Name: LUIS EDMONDS [facility] [place] : 2000 Age/S: 20 / F [address] [place] [address] Blvd Unit #: [id number] Loc: [place] [address] Phys: Pearl Chavez DO Acct: [id number] Dis Date: Status: REG ER PHONE #: [phone] Exam Date: 12/25/2020 1726 FAX #: [phone] Reason: h/o low ISMA, unsure if PROM, translabial cervic EXAMS: CPT CODE: [id number] [place] LTD [id number] LIMITED ULTRASOUND INDICATION: with history of low [...] 1 Signed Report (CONTINUED) Name: LUIS EDMONDS [facility] [place] : 2000 Age/S: 20 / F [address] [place] [address] Unit #: [id number] Loc: [place] [address] Phys: Pearl Chavez Jesse Acct: [id number] Dis Date: Status: REG ER PHONE #: [phone] Exam Date: 12/25/2020 1726 FAX #: [phone] Reason: h/o low ISMA, unsure if PROM, translabial cervic EXAMS: CPT CODE: [id number] [place] LTD [id number] <Continued> at 1734 Reported and signed by: Judah Izquierdo M.D. CC: Pearl Chavez DO Technologist: Merna Figueroa RDMS(AB) Trnscb Date/Time: 12/25/2020 (173) [email or web address] Orig Print D/T: S: 12/25/2020 (1737) Probe: PAGE 2 Signed ReportAMNISURE (ROM) [id number] 17:14:00 Test Item Value Reference Range Interpretation Comments AMNISURE (ROM) TEST (test code = NEGATIVE NEGATIVE AMNI) URINALYSIS [id number] 17:10:00 Test Item Value Reference Range Interpretation [...] A = AMORU) DRUGS OF ABUSE SCREEN [id number] 17:07:00 Test Item Value Reference Range Interpretation [...] non-medical pur poses. - US PREG AFTER [id number] 02:47:00 [facility] LINOName: LUIS EDMONDS : 2000 Sex: F Name: LUSI EDMONDS [facility] Madeline Coffman : 2000 Age/S: 19 / F [address] [place] [address] Blvd Unit #: [id number] Loc: [place] [address] Phys: Brittnee Ramirez MD Acct: [id number] Dis Date: Status: REG ER PHONE #: [phone] Exam Date: 11/23/2020 0144 FAX #: [phone] Reason: No PNC, bleeding, approximately 20 weeks EXAMS: CPT CODE: [id number] US PREG AFTER 1ST TRI 56316 EXAM: US, US PREG AFTER 1SRTRI: 11/23/2020, [...] 1 Signed Report (CONTINUED) Name: LUIS EDMONDS [facility] [place] : 2000 Age/S: 19 / F [address] [place] [address] Unit #: [id number] Loc: [place] [address] Phys: Brittnee Ramirez MD Acct: [id number] Dis Date: Status: REG ER PHONE #: [phone] Exam Date: 11/23/2020 0144 FAX #: [phone] Reason: No PNC, bleeding, approximately 20 weeks EXAMS: CPT CODE: [id number] US PREG AFTER TRI 77502 <Continued> seen. Cervical length is not visualized. [...] PAGE 2 Signed Report- US PREG AFTER [id number] 02:47:00 [facility] : 2000 Sex: F Name: LUIS EDMONDS [facility] [place] : 2000 Age/S: 19 / F [address] [place] [address] Blvd Unit #: [id number] Loc: Shaq [place] [address] Phys: Brittnee Ramirez MD Acct: [id number] Dis Date: Status: DEP ER PHONE #: [phone] Exam Date: 11/23/2020 0144 FAX #: [phone] Reason: No PNC, bleeding, approximately 20 weeks EXAMS: CPT CODE: [id number] US PREG AFTER 1ST TRI 56820 EXAM: US, US PREG AFTER 1SR TRI: [...] 1 Signed Report (CONTINUED) Name: LUIS EDMONDS [facility] Madeline LakeDOB: 2000 Age/S: 19 / F [address] [place] [address] Unit #: [id number] Loc: [place] [address] Phys: Brittnee Ramirez MD Acct: [id number] Dis Date: Status: DEP ER PHONE #: [phone] Exam Date: 11/23/20204 FAX #: [phone] Reason: No PNC, bleeding, approximately 20 weeks EXAMS: CPT CODE: [id number] US PREG AFTER 1ST TRI 52815 <Continued> seen. Cervical length is not visualized. [...] 11/23/2020 (0250) Probe: PAGE 2 Signed ReportURINALYSIS [id number] 01:40:00 Test Item Value Reference Range Interpretation [...] code = AMORU) DRUGS OF ABUSE SCREEN [id number] 01:40:00 Test Item Value Reference Range Interpretation [...] ed for non-medical pur poses. CBC W/AUTO [id number] 01:27:00 Test Item Value Reference Range Interpretation [...] (test code NO = MDIFF) BASIC METABOLIC [id number] 02:51:00 Test Item Value Reference Range Interpretation [...] = CA) 9.5 mg/dL 8.0-10.5 N HCG [id number] 02:51:00 Test Item Value Reference Range Interpretation Comments HCG SERUM (test 52918.3 0 - 6 NOT P REGNANT > 6 code = HCG) SUGGESTIVE OF E TREVOR RISES TWO FOLD EVERY 2 DAYS; S UGGEST RECONFIRMING AF TER 2 DAYS. 150,000-200,[address] TRIME[address] 10,00 0 - 50,000 2ND & 3RD TRIME STERResults in emanuel-Jewel Lathe Operator ational Units/mL URINALYSIS [id number] 02:39:00 Test Item Value Reference Range Interpretation [...] MUCU) TRACE /LPF NONE SEEN CBC W/AUTO [id number] 02:21:00 Test Item Value Reference Range Interpretation [...] NO = IFF) - US PREG 1ST [id number] 02:19:00 [facility] : 2000 Sex: F Name: LUIS EDMONDS [facility] : 2000 Age/S: 19 / F [address] [place] [address] Unit #: [id number] Loc: [place] [address] Phys: Nirav Nolan MD Acct: [id number] Dis Date: Status: REG ERPHONE #: [phone] Exam Date: 10/05/2020209 FAX #: [phone] Reason: VB EXAMS: CPT CODE: [id number] US PREG 1ST TRIMTR 86707 STUDY: - DUP AB/PEL/SC/LTD, - US PREG 1ST TRIMTR 10/05/2020 1:17 AM Ordering Physician: Nirav Nolan MD Patient Name: LUIS EDMONDS MR: [id number] : 2000; Age: 19 years y/o Female [...] 1 Signed Report (CONTINUED) Name: LUIS EDMONDS [facility] : 2000 Age/S: 19 / F [address] [place] [address] Unit #: [id number] Loc: [place] [address] Phys: Nirav Nolan MD Acct: [id number] Dis Date: Status: REG ER PHONE #: [phone] Exam Date: 10/05/2020209 FAX #: [phone] Reason: VB EXAMS:CPT CODE: [id number] US PREG 1ST TRIMTR 13992 <Continued> SL: TPAINTER-H at 021 Reported and signed by: Abdias Avila M.D. CC: Elina Rome MD; Nirav Nolan MD Technologist: Maryam Anderson RDMS(BR)(AB) Trnscb Date/Time: 10/05/2020 (218) [email or web address] Orig Print D/T: S: 10/05/2020 (221) Probe: PAGE 2 Signed Report- DUP AB/PEL/SC/[id number] 02:19:00 [facility] MADELINE COFFMANName: LUIS EDMONDS : 2000 Sex: F Name: LUIS EDMONDS [facility] Madeline Coffman : 2000 Age/S: 19 / F [address] [place] [address] Blvd Unit #: [id number] Loc: [place] [address] Phys: Nirav Nolan MD Acct: [id number] Dis Date: Status: REG ERPHONE #: [phone] Exam Date: 10/05/2020209 FAX #: [phone] Reason: see US PREG 1st TRIMTR EXAMS: CPT CODE: [id number] DUP AB/PEL/SC/LTD 29101 STUDY: - DUP AB/PEL/SC/LTD, - US PREG 1ST TRIMTR 10/05/2020 1:17 AM Ordering Physician: Nirav Nolan MD Patient Name: LUIS EDMONDS MR: [id number] : 2000; Age: 19 years y/o Female [...] 1 Signed Report (CONTINUED) Name: LUIS EDMONDS [facility] Madeline Coffman : 2000 Age/S: 19 / F [address] [place] [address] Blvd Unit #: [id number] Loc: [place] [address] Phys: Nirav Nolan MD Acct: [id number] Dis Date: Status: REG ER PHONE #: [phone] Exam Date: 10/05/2020209 FAX #: [phone] Reason: see US PREG 1st TRIMTR EXAMS: CPT CODE: [id number] DUP AB/PEL/SC/LTD 70041 <Continued> SL: TPAINTER-H at 021 Reported and signed by: Abdias Avila M.D. CC: Elina Rome MD; Nirav Nolan MD Technologist: Maryam Anderson RDMS(BR)(AB) Trnscb Date/Time: 10/05/2020 (218) [email or web address] Orig Print D/T: S: 10/05/2020 (221) Probe: PAGE 2 Signed Report- DUP AB/PEL/SC/[id number] 22:07:00 [facility] MADELINE COFFMANName: LUIS EDMONDS : 2000 Sex: F Name: LUIS EDMONDS [facility] : 2000 Age/S: 19 / F [address] [place] [address] Unit #: [id number] Loc: [place] [address] Phys: Cathy Bruce Acct: [id number] Dis Date: Status: REG ERPHONE #: [phone] Exam Date: 08/22/20202199 FAX #: [phone] Reason: see US PREG 1st TRIMTREXAMS: CPT CODE: [id number] DUP AB/PEL/SC/LTD 41475 PROCEDURE: FIRST TRIMESTER ULTRASOUND INDICATION: 6 weeks [...] signed by: Judah Izquierdo M.D. CC: Elina Rmoe MD; Cathy MELO Technologist: Maryam Anderson RDMS(BR)(AB) Trnscb Date/Time: 08/22/2020 (2206) [email or web address] Orig Print D/T: S: 08/22/2020 (2209) Probe: PAGE 1 Signed Report- US PREG 1ST [id number] 22:07:00 [facility] MADELINE THOUSAND OAKSName: LUIS DEMONDS : 2000 Sex: F Name: LUIS EDMONDS [facility] Madeline Coffman : 2000 Age/S: 19 / F [address] [place] [address] Blvd Unit #: [id number] Loc: [place] [address] Phys: Cathy Bruce Acct: [id number] Dis Date: Status: REG ER PHONE #: [phone] Exam Date: 08/22/20202199 FAX #: [phone] Reason: 6w , crampingEXAMS: CPT CODE: [id number] PREG 1ST TRIMTR 67257 PROCEDURE: FIRST TRIMESTER ULTRASOUNDINDICATION: 6 weeks with [...] S: 08/22/2020 (2209) Probe:PAGE 1 Signed ReportURINALYSIS [id number] 21:50:00 Test Item Value Reference Range Interpretation [...] MUCU) TRACE /LPF NONE SEEN BASIC METABOLIC [id number] 21:48:00 Test Item Value Reference Range Interpretation [...] patient ? YHOW MANY WEEKS? 6 WEEKSHCG [id number] 21:48:00 Test Item Value Reference Range Interpretation Comments HCG SERUM (test 90181.6 0 - 6 NOT P REGNANT > 6 code = HCG) SUGGESTIVE OF E TREVOR RISES TWO FOLD EVERY 2 DAYS; S UGGEST RECONFIRMING AF TER 2 DAYS. 150,000-200,[address] TRIME[address] 10,00 0 - 50,000 2ND & 3RD TRIME STERResults in emanuel-Jewel Lathe Operator ational Units/mL Is patient ? YHOW MANY WEEKS? 6 WEEKSUR HCG [id number] 21:47:00 Test Item Value Reference Range Interpretation Comments UR HCG QUAL (test code = HCGQLU) POSITIVE NEGATIVE CBC W/AUTO [id number] 21:33:00 Test Item Value Reference Range Interpretation [...] (test code NO = MDIFF) CBC W/AUTO [id number] 21:31:00 Test Item Value Reference Range Interpretation [...] REQUIRED (test code = MDIFF) Novel Coronavirus [id number] 14:50:00 Test Item Value Reference Range Interpretation Comments Novel Coronavirus 2018 Negative Negative Perfo rmed by: Vignesh Dx nCoV (test code = Laboratory [address] COVID19) [facility], [address] [place], [place] [address] Phone: CLIA#: [id number] Does patient have the clinical criteria consistent with COVID-19? YIs the patient going to be discharged home? Y- CT NECK W/[id number] 02:35:00 Name: LUIS EDMONDS [facility] : 2000 Age/S: 19 / F [address] [place] [address] Blvd Unit #: [id number] Loc: [place] [address] Phys: Amilcar Pablo CHART CLERK Acct: [id number] Dis Date: Status: REG ER PHONE #: [phone] Exam Date: 02/16/2020 0134 FAX #: [phone] Reason: R lymphadenopathy, throat pain, fever EXAMS: CPT CODE: [id number] CT NECK W/CONTRAST 12282 EXAM: CT, CT NECK W/CONTRAST: 02/16/2020, 0132 [...] 1 Signed Report (CONTINUED) Name: LUIS EDMONDS [facility] Madeline VintonDOB: 2000 Age/S: 19 / F [address] [place] [address] Unit #: [id number] Loc: [place] [address] Phys: Amilcar Pablo NP Acct: [id number] Dis Date: Status: REG ER PHONE #: [phone] Exam Date: 02/16/2020 0134 FAX #: [phone] Reason: R lymphadenopathy, throat pain, fever EXAMS: CPT CODE: [id number] CT NECK W/CONTRAST 83163 <Continued> unremarkable. OSSEOUS STRUCTURES: There are no [...] (234) [email or web address] Orig Print D/T: S: 02/16/2020 (0192) PAGE 2 Signed ReportCOMPREHENSIVE METABOLIC [id number] 00:12:00 Test Item Value Reference Range Interpretation [...] IUnit/L 60-350 N code = ALKP) MONO [id number] 00:09:00 Test Item Value Reference Range Interpretation Comments MONO SCREEN (test code = MONO) NEGATIVE NEGATIVE URINALYSIS [id number] 00:02:00 Test Item Value Reference Range Interpretation [...] MUCU) 1+ /LPF NONE SEEN COMPREHENSIVE METABOLIC [id number] 00:02:00 Test Item Value Reference Range Interpretation [...] IUnit/L 60-350 code = ALKP) CBC W/AUTO [id number] 23:59:00 Test Item Value Reference Range Interpretation [...] (test NO code = MDIFF) UR HCG [id number] 23:56:00 Test Item Value Reference Range Interpretation Comments UR HCG QUAL (test code = HCGQLU) NEGATIVE NEGATIVE Notes Date/Time Note Provider Source 2022-11-16 15:41:00-00:00 [id number] [place] [address] PATIENT NAME: LUIS EDMONDS ADMIT DATE: ACCOUNT NO: [id number] ROOM NO: [facility] AGE: 21 REPORT TYPE: 360 - QUERY RESPONSE DOCUMENT SEX: F ADMITTING PHYSICIAN:Luis Burciaga MD ATTENDING PHYSICIAN:Luis Burciaga MD Provider Query QUERY TEXT: Clarification Pathology 360MD Query related questions should be directed to: Kyra buck [facility] Coding Query Hotline Based on your clinical [...] AM at 1541 PATIENT NAME: LUIS EDMONDS [id number] 2022-11-02 15:02:00-00:00 [facility] ([facility]) OB Disch REPORT#:[id number] REPORT STATUS: Signed DATE:11/02/22 TIME: 150 PATIENT: LUIS EDMONDS UNIT #: [id number] ROOM/BED: [place] [address] : 02 AGE: 21 SEX: F ATTEND: Fabio Burciaga MD ADM AUTHOR: Luis Burciaga MD * ALL edits or amendments must be made on the HitMeUp/computer document * Subjective Subjective Admission EGA: Weeks: [...] Additional discharge routines: None at 1504 RPT #:[id number] END OF REPORT 2022-11-02 14:57:00-00:00 [facility] ([facility]) OB Postpart Progr Note REPORT#:[id number] REPORT STATUS: Signed DATE:11/02/22 TIME: 1457 PATIENT: LUIS EDMONDS UNIT #: [id number] ROOM/BED: [place] [address] : 02 AGE: 21 SEX: F ATTEND: Anand Burciaga MD ADM AUTHOR: Luis Burciaga MD * ALL edits or amendments must be made on the HitMeUp/computer document * Subjective Subjective Admission EGA: Weeks: [...] routine care, discharge today at 1500 RPT #:[id number] END OF REPORT 2022-11-01 15:13:00-00:00 [facility] ([facility]) OB Postpart Progr Note REPORT#:[id number] REPORT STATUS: Signed DATE:11/01/22 TIME: 151 PATIENT: LUIS EDMONDS UNIT #: [id number] ROOM/BED: [place] [address] : 02 AGE: 21 SEX: F ATTEND: Fabio Burciaga MD ADM AUTHOR: Luis Burciaga MD * ALL edits or amendments must be made on the HitMeUp/computer document * Subjective Subjective Admission EGA: Weeks: [...] % (Auto) (14.0 - 32.0 %) 25.7 [place] % (Auto) (4.8 - 9.0 %) 9.7 H Eos % (Auto) (0.3 - 3.7 %) 0.8 Baso % (Auto) (0.0 - 2.0 %) 0.5 Neut # (Auto) (2.0 - 7.6 x10 3/uL) 7.76 H Lymph # (Auto) (1.0 - 3.8 x10 3/uL) 3.17 [place] # (Auto) (0.1 - 0.8 x10 3/uL) [...] progress Plan: routine care at 1514 RPT #:[id number] END OF REPORT 2022-10-31 15:14:00-00:00 [facility] ([facility]) DT History Physical REPORT#:[id number] REPORT STATUS: Signed DATE:10/31/22 TIME: 1514 PATIENT: LUIS EDMONDS UNIT #: [id number] ROOM/BED: [place] [address] : 02 AGE: 21 SEX: F ATTEND: [...] (14.0 - 32.0 %) 26.3 10/30 1830 [place] % (Auto) (4.8 - 9.0 %) 9.6 H 10/30 1830 Eos % (Auto) (0.3 - 3.7 %) 0.6 10/30 1830 Baso % (Auto) (0.0 - 2.0 %) 0.3 10/30 1830 Neut # (Auto) (2.0 - 7.6 x10 3/uL) 6.27 10/30 1 830 Lymph # (Auto) (1.0 - 3.8 x10 3/uL) 2.65 10/30 1830 [place] # (Auto) (0.1 - 0.8 x10 3/uL) [...] 15 units/ NS 250 mL) Pharmaceutical Aids Sig/Victoriano Start time Last Medication Dose Route [...] 1725 139 117/55 98 at 1514 RPT #:[id number] END OF REPORT 2022-10-31 15:12:00-00:00 [facility]) OB Delivery Note REPORT#:[id number] REPORT STATUS: Signed DATE:10/31/22 TIME: 1512 PATIENT: LUIS EDMONDS UNIT #: [id number] ROOM/BED: [place] [address] : 02 AGE: 21 SEX: F ATTEND: Fabio Burciaga MD ADM AUTHOR: Lius Burciaga MD * ALL edits or amendments [...] infant A: Birthweight (gm) A: Weight (lb) infant A: Weight (oz) infant A: Gender infant A: 1 minute A: 5 minutes infant A: 10 minutes infant A: Cord pH obtained A: Vacuum time infant A: Vacuum # pulls infant A: Vacuum # popoffs A: QBL at [...] correct Mother's condition: mother stable Infant's condition: stable in room at 1514 RPT #:[id number] END OF REPORT 2022-09-27 16:38:00-00:00 [facility] ([facility]) OB Disch Undelivered REPORT#:[id number] REPORT STATUS: Signed DATE:09/27/22 TIME: 1638 PATIENT: BI EDMONDS UNIT #: [id number] ROOM/BED: [place] [address] : 02 AGE: 21 SEX: F ATTEND: Fabio Burciaga MD ADM AUTHOR: Effie Marquez * ALL edits or amendments must be made on the HitMeUp/Greenmonster document * Subjective Subjective Admission EGA: Weeks: [...] Monitor: toco Frequency (description): None Frequency (minutes): SUPERVISOR OF RESEARCH: Normal exteral genitalia Cervical/ exam: Dilatation (cm): [...] 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 Assessment: no evidence labor Impression: reactive NST [...] timeframe: In 1-2 weeks at 1953 RPT #:[id number] END OF REPORT 2022-09-27 10:39:00-00:00 [facility] ([facility]) OB Antepartum Prog Note REPORT#:[id number] REPORT STATUS: Signed DATE:09/27/22 TIME: 1039 PATIENT: BI EDMONDS UNIT #: [id number] ROOM/BED: [place] [address] : 02 AGE: 21 SEX: F ATTEND: Fabio Burciaga MD ADM AUTHOR: Effie Marquez MD * ALL edits or amendments must be made on the HitMeUp/computer document * Subjective Subjective Admission EGA: Weeks: [...] Monitor: toco Frequency (description): none Frequency (minutes): SUPERVISOR OF RESEARCH: Normal exteral genitalia Cervical/ exam: Dilatation (cm): 1 Effacement (%): 50 station: -3 Presentation: Membrane status: FHR evaluation: FHR category: category I Diagnosis, Assessment Plan Diagnosis, Assessment Plan Free text A P: IUP 32 07/25 FFN + Patient found stable, patien t evaluated by MFM, he recommends discharge home if no cervical change. Will check her this afternoo n. at 1950 RPT #:[id number] END OF REPORT 2022-09-27 09:19:00-00:00 [facility] ([facility]) [facility] Consultation Note REPORT#:[id number] REPORT STATUS: Signed DATE:09/27/22 TIME: 918 PATIENT: BI EDMONDS UNIT #: [id number] ROOM/BED: [place] [address] : 02 AGE: 21 SEX: F ATTEND: Anand Burciaga MD ADM AUTHOR: Kahlil Moore MD * ALL edits or amendments must be made on the el wise.io/computer document * History of Present Illness HPI [...] globulin this preg: Monitor mode - UA: [place] units: Feeding preference: Delivery data Delivery date infant A: Delivery time A: Birthweight (gm) infant A: Weight (lb) infant A: Weight (oz) A: Gender A: 1 minute A: 5 minutes infant A: 10 minutes infant A: Cord pH obtained infant A: Vacuum time infant A: Vacuum # pulls infant A: Vacuum # popoffs infant A: Provider comments on imported nursing data: [...] pH (5.0 - 7.0) 5.0 Ur Specific [place] (1.005 - 1.030) 1.033 H Urine Protein [...] you closely Floor time 50min at 0927 [facility] #:[id number] END OF REPORT 2022-09-27 05:02:00-00:00 [facility] ([facility]) OB Admission / H P REPORT#:[id number] REPORT STATUS: Signed DATE:09/27/22 TIME: 0502 PATIENT: IB EDMONDS UNIT #: [id number] ROOM/BED: [place] [address] : 02 AGE: 21 SEX: F ATTEND: Fabio Burciaga MD ADM AUTHOR: Zoila Gomez DO * ALL edits or amendments must be made on the HitMeUp/computer document * OB History Chief complaint: uterine [...] pH (5.0 - 7.0) 5.0 Ur Specific [place] (1.005 - 1.030) 1.033 H Urine Protein [...] dilation Plan: 1. Phone consult called to [facility], Dr Judge. No Celestone is needed ( last course of steroid was given 3+ wk ago on 09-08-22 and 09-09-22 ). No MgSO4 is needed at 32 1/7wks with no contract ions. 2. Admit for 23h observation. 3. Will recheck cx in AM. If no contraction or c ervical change, will DC home. Electronically Signed by Zoila Gomez DO on at 0512 RPT #:[id number] END OF REPORT 2022-09-26 19:34:00-00:00 [facility] ([facility]) [facility] Evaluation Note REPORT#:[id number] REPORT STATUS: Signed DATE:09/26/22 TIME: 1933 PATIENT: BI EDMONDS UNIT #: [id number] [facility]ED: [facility] : 02 AGE: 21 SEX: F ATTEND: Fabio Burciaga MD ADM AUTHOR: Zoila Gomez DO * ALL edits or amendments must be made on the el wise.io/computer document * See Addendum [facility] History Chief complaint: uterine contractions, decreased movement HPI: 21 yo EDC 11-20[birth year]22 presented to [facility] at 32 1 /7wks complained of cramping pain at suprapubic area since last week and decr eased FM today. +Lower back pain. Patient was admitted for +Amnisure at 29 +wks on 09-07-22. Repeat Amnisure on was negative and pt discharged zluy e on 09-14-22. Pt did not have [...] for 23hr obs. Phone consult called to [facility], Dr Judge. No Celestone is needed ( last course of steroid was given 3+ wk ago on 09-08-22 and 09-09-22 ). No MgSO4 is needed at 32 1/7wks with no contract ions. POC dw patient, nurse Electronically Signed by Zoila Gomez DO on at 0502 RPT #:[id number] END OF REPORT 2022-09-26 19:30:00-00:00 [facility] ([facility]) OB Medical Screening Exam REPORT#:[id number] REPORT STATUS: Signed DATE:09/26/22 TIME: 1929 PATIENT: BI EDMONDS UNIT #: [id number] ROOM/BED: 204- : 02 AGE: 21 SEX: F ATTEND: Fabio Burciaga MD ADM DT: AUTHOR: Zoila Gomez DO * ALL edits or amendments must be made on the HitMeUp/Greenmonster document * Medical Screening Exam Provider Attestation Comments: Patient was seen at 1920 for contraction , back pain, and decreased FM at 32 1/ 7wks Electronically Signed by Zoila Gomez DO on at 1931 RPT #:[id number] END OF REPORT 2022-09-14 08:43:00-00:00 [facility] ([facility]) OB Disch Undelivered REPORT#:[id number] REPORT STATUS: Signed DATE:09/14/22 TIME: 842 PATIENT: LUIS EDMONDS UNIT #: [id number] ROOM/BED: 348-1 : 02 AGE: 21 SEX: F ATTEND: Fabio Burciaga MD ADM AUTHOR: Luis Burciaga MD * ALL edits or amendments must be made on the HitMeUp/Greenmonster document * Objective Physical Exam FHR evaluation: [...] Additional Discharge Routines: None at 0845 RPT #:[id number] END OF REPORT 2022-09-14 08:41:00-00:00 [facility] ([facility]) OB Antepartum Prog Note REPORT#:[id number] REPORT STATUS: Signed DATE:09/14/22 TIME: 0841 PATIENT: LUIS EDMONDS UNIT #: [id number] ROOM/BED: [place] [address] : 02 AGE: 21 SEX: F ATTEND: Fabio Burciaga MD ADM AUTHOR: Luis Burciaga MD * ALL edits or amendments must be made on the el wise.io/computer document * Subjective Subjective Current EGA: Current [...] labor Plan: discharge home at 0843 RPT #:[id number] END OF REPORT 2022-09-13 17:53:00-00:00 [facility] ([facility]) OB Antepartum Prog Note REPORT#:[id number] REPORT STATUS: Signed DATE:09/13/22 TIME: 1753 PATIENT: LUIS EDMONDS UNIT #: [id number] ROOM/BED: [place] [address] : 02 AGE: 21 SEX: F ATTEND: Fabio Burciaga MD ADM AUTHOR: Luis Burciaga MD * ALL edits or amendments must be made on the el wise.io/Greenmonster document * Subjective Subjective Current EGA: Current [...] prolapse and delivery o f extreme preamature infant outside hospital decreases at 1802 RPT #:[id number] END OF REPORT 2022-09-13 09:03:00-00:00 [facility] ([facility]) M Progress Note REPORT#:[id number] REPORT STATUS: Signed DATE:09/13/22 TIME: 902 PATIENT: LUIS EDMONDS UNIT #: [id number] ROOM/BED: [place] [address] : 02 AGE: 21 SEX: F ATTEND: Fabio Burciaga MD ADM AUTHOR: Kahlil Moore MD * ALL edits or amendments must be made on the HitMeUp/computer document * Objective General VS/I O: Last [...] you closely Floor time 35min at 0911 [facility] #:[id number] END OF REPORT 2022-09-12 08:28:00-00:00 [facility] ([facility]) MFM Progress Note REPORT#:[id number] REPORT STATUS: Signed DATE:09/12/22 TIME: 827 PATIENT: LUIS EDMONDS UNIT #: [id number] ROOM/BED: [place] [address] : 02 AGE: 21 SEX: F ATTEND: Fabio Burciaga MD ADM AUTHOR: Kahlil Moore MD * ALL edits or amendments must be made on the el wise.io/computer document * Objective General VS/I O: Last [...] closely Floor time 35min at 0834 RPT #:[id number] END OF REPORT 2022-09-12 01:41:00-00:00 [facility] ([facility]) OB Antepartum Prog Note REPORT#:[id number] REPORT STATUS: Signed DATE:09/12/22 TIME: 0141 PATIENT: LUIS EDMONDS UNIT #: [id number] ROOM/BED: [place] [address] : 02 AGE: 21 SEX: F ATTEND: Fabio Burciaga MD ADM AUTHOR: Luis Burciaga MD * ALL edits or amendments must be made on the [employer]/computer document * Subjective Subjective Current EGA: Current [...] Plan: continue current managmnt at 0142 RPT #:[id number] END OF REPORT 2022-09-11 22:15:00-00:00 [facility] ([facility]) OB Antepartum Prog Note REPORT#:[id number] REPORT STATUS: Signed DATE:09/11/22 TIME: 2214 PATIENT: LUIS EDMONDS UNIT #: [id number] ROOM/BED: [place] [address] : 02 AGE: 21 SEX: F ATTEND: Fabio Burciaga MD ADM AUTHOR: Luis Burciaga MD * ALL edits or amendments must be made on the el wise.io/computer document * Subjective Subjective Current EGA: Current [...] Plan: continue current managmnt at 2218 RPT #:[id number] END OF REPORT 2022-09-11 07:18:00-00:00 [facility] ([facility]) [facility] Progress Note REPORT#:[id number] REPORT STATUS: Signed DATE:09/11/22 TIME: 717 PATIENT: LUIS EDMONDS UNIT #: [id number] ROOM/BED: [place] [address] : 02 AGE: 21 SEX: F ATTEND: [...] pH (5.0 - 7.0) 6.0 Ur Specific [place] (1.005 - 1.030) 1.019 Urine Protein (NEGATIVE) [...] closely Floor time 35min at 0724 RPT #:[id number] END OF REPORT 2022-09-10 13:12:00-00:[address] [facility] REPORT#:[id number] REPORT STATUS: Signed DATE:09/10/22 TIME: 1312 PATIENT: LUIS EDMONDS UNIT #: [id number] ROOM/BED: [place] [address] : 02 AGE: 21 SEX: F ATTEND: [...] Daniel Witt MD on at 1325 RPT #:[id number] END OF REPORT 2022-09-10 08:19:00-00:00 [facility] ([facility]) OB Antepartum Prog Note REPORT#:[id number] REPORT STATUS: Signed DATE:09/10/22 TIME: 08 PATIENT: LUIS EDMONDS UNIT #: [id number] ROOM/BED: [place] [address] : 02 AGE: 21 SEX: F ATTEND: Fabio Burciaga MD ADM AUTHOR: Luis Burciaga MD * ALL edits or amendments must be made on the el wise.io/computer document * Subjective Subjective Current EGA: Current [...] Plan: continue current managmnt at 0820 RPT #:[id number] END OF REPORT 2022-09-09 12:03:00-00:00 HCACL NITESH Coffman ([facility]) OB Admission / H P REPORT#:[id number] REPORT STATUS: Signed DATE:09/09/22 TIME: 1203 PATIENT: LUIS EDMONDS UNIT #: [id number] ROOM/BED: [place] [address] : 02 AGE: 21 SEX: F ATTEND: Anand Burciaga MD ADM AUTHOR: Juany Carrillo MD * ALL edits or amendments must be made on the el [employer]pet[employer]com[employer]/computer document * OB History Notes: NITESH Coffman (RIKI) OLGA Evaluation Note REPORT#:[id number] REPORT STATUS: Signed DATE:09/07/22 TIME: 2242 PATIENT: LUIS EDMONDS UNIT #: [id number] ROOM/BED: [place] [address] : 02 AGE: 21 SEX: F ATTEND: Fabio Burciaga MD ADM AUTHOR: Juany Carrillo MD * ALL edits or amendments must be made on the [employer] document * History and Physical Chief complaint: [...] pH (5.0 - 7.0) 7.0 Ur Specific [place] (1.005 - 1.030) 1.006 Urine Protein (NEGATIVE) [...] MD on 0 09/08/22 at 0549 RPT #:[id number] END OF REPORT Past History Allergies: Uncoded Allergies: MARCUS ACID- THROAT SWELLING (Severe, 08/03/22) Electronically Signed by Juany Carrillo MD on 0 09/09/22 at 1207 RPT #:[id number] END OF REPORT 2022-09-09 09:03:00-00:00 [facility] ([facility]) OB Antepartum Prog Note REPORT#:[id number] REPORT STATUS: Signed DATE:09/09/22 TIME: 902 PATIENT: LUIS EDMONDS UNIT #: [id number] ROOM/BED: [place] [address] : 02 AGE: 21 SEX: F ATTEND: Fabio Burciaga MD ADM AUTHOR: Luis Burciaga MD * ALL edits or amendments must be made on the el wise.io/computer document * Subjective Subjective Patient reports: Patient [...] Plan: continue current managmnt at 0906 RPT #:[id number] END OF REPORT 2022-09-09 08:58:00-00:00 [facility] ([facility]) OB Antepartum Prog Note REPORT#:[id number] REPORT STATUS: Signed DATE:09/09/22 TIME: 0858 PATIENT: LUIS EDMONDS UNIT #: [id number] ROOM/BED: [place] [address] : 02 AGE: 21 SEX: F ATTEND: Fabio Burciaga MD ADM AUTHOR: Luis Burciaga MD * ALL edits or amendments must be made on the [employer]/computer document * Subjective Subjective Patient reports: Patient [...] Plan: continue current managmnt at 0859 RPT #:[id number] END OF REPORT 2022-09-09 07:45:00-00:00 [facility] ([facility]) [facility] Progress Note REPORT#:[id number] REPORT STATUS: Signed DATE:09/09/22 TIME: 744 PATIENT: LUIS EDMONDS UNIT #: [id number] ROOM/BED: [place] [address] : 02 AGE: 21 SEX: F ATTEND: Fabio Burciaga MD ADM AUTHOR: Daniel Witt MD * ALL edits or amendments must be made on the el ectronic/computer document * Objective Objective General appearance: alert Results Findings/Data: [facility] Progress Note Luis was seen and evaluated [...] Daniel Witt MD on at 0748 RPT #:[id number] END OF REPORT 2022-09-08 17:21:00-00:00 [facility] ([facility]) MFM Consultation Note REPORT#:[id number] REPORT STATUS: Signed DATE:09/08/22 TIME: 1721 PATIENT: LUIS EDMONDS UNIT #: [id number] ROOM/BED: [place] [address] : 02 AGE: 21 SEX: F ATTEND: Fabio Burciaga MD ADM AUTHOR: Daniel Witt MD * ALL edits or amendments must be made on the [employer]/computer document * History Past History Past family [...] % (Auto) (14.0 - 32.0 %) 31.0 [place] % (Auto) (4.8 - 9.0 %) 8.1 Eos % (Auto) (0.3 - 3.7 %) 0.8 Baso % (Auto) (0.0 - 2.0 %) 0.3 Neut # (Auto) (2.0 - 7.6 x10 3/uL) 6.16 Lymph # (Auto) (1.0 - 3.8 x10 3/uL) 3.22 [place] # (Auto) (0.1 - 0.8 x10 3/uL) [...] pH (5.0 - 7.0) 7.0 Ur Specific [place] (1.005 - 1.030) 1.006 Urine Protein (NEGATIVE) [...] Sono today: vtx, ant. placen ta, EFW 5uyi8va (1574g, 68%ile), nl range ISMA 15.4, nl [...] Daniel Witt MD on at 1731 RPT #:[id number] END OF REPORT 2022-09-07 22:44:00-00:00 [facility] ([facility]) OB Medical Screening Exam REPORT#:[id number] REPORT STATUS: Signed DATE:09/07/22 TIME: 2243 PATIENT: LUIS EDMONDS UNIT #: [id number] ROOM/BED: [place] [address] : 02 AGE: 21 SEX: F ATTEND: Fabio Burciaga MD ADM AUTHOR: Juany Carrillo MD * ALL edits or amendments must be made on the el wise.io/computer document * Medical Screening Exam Provider Attestation Attestation: The QMP MSE reviewed. Notified at 2135 Physician at bedside 2140 Comments: 21 y/o female at 29- 3/7 weeks who presents after several gushes of clear fluid from the vagina. Patient is certain that s he did not leak urine. Electronically Signed by Juany Carrillo MD on 0 09/08/22 at 0557 RPT #:[id number] END OF REPORT 2022-09-07 22:43:00-00:00 [facility] ([facility]) [facility] Evaluation Note REPORT#:[id number] REPORT STATUS: Signed DATE:09/07/22 TIME: 2242 PATIENT: LUIS EDMONDS UNIT #: [id number] ROOM/BED: [place] [address] : 02 AGE: 21 SEX: F ATTEND: Fabio Burciaga MD ADM AUTHOR: Juany Carrillo MD * ALL edits or amendments must be made on the [employer]/computer document * OLGA History Chief complaint: suspected [...] pH (5.0 - 7.0) 7.0 Ur Specific [place] (1.005 - 1.030) 1.006 Urine Protein (NEGATIVE) [...] Carrillo MD on 0 09/08/22 at 0549 [facility] #:[id number] END OF REPORT 2022-08-06 11:00:00-00:00 [facility] ([facility]) OB Medical Screening Exam REPORT#:[id number] REPORT STATUS: Signed DATE:08/06/22 TIME: 1100 PATIENT: LUIS EDMONDS UNIT #: [id number] ROOM/BED: : 02 AGE: 21 SEX: F ATTEND: Effie Beavers MD ADM AUTHOR: Effie Solitario MD * ALL edits or amendments must be made on the [employer] document * Medical Screening Exam Provider Attestation Attestation: The QMP MSE reviewed. DATE 08/03/2019 Notified at 1523 Provider at bedside at 1523 Comments: 21 Y/O IUP 24 2/7 presents due to crampi ng. 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 [place] ed on discharge and labor precautions as well as kick counts and she voice d understanding will have her follow-up with her CORPORATE EXECUTIVE CHEF. Assessment: no evidence labor Impression: reactive NST Plan: discharge home Plan discussed with: patient, nurse at 1106 RPT #:[id number] END OF REPORT 2022-03-06 16:08:00-00:00 [facility] ([facility] emergency provider report report#:[id number] report status: signed date:03/06/22 time: 1608 patient: luis edmonds unit #: [id number] room/bed: age: 21 sex: f pcp phys: emily artis md service dt: 03/06/22 author: dayna chavez md * all edits or amendments must be made on the el wise.io/computer document * hpi-ankle prob/inj free text hpi [...] asdir dme - crutches (crutch set) [facility] patient instructions ed ankle sprain (adult), ed foot sprain, ed rice referrals provider referral: cheli gamino md follow-up: as needed notes: orthopedic surgeon address: [address] [place] [id number] provider group: primary care follow-up: 1 week [...] symptoms should prompt an immediate return to [facility] or the closest emergency department or a call to 911. electronically signed by ghanshyam chavez md on 03/06/22 at 1747 rpt #:[id number] end of report 2021-11-11 00:46:00-00:00 [facility] EMERGENCY PROVIDER REPORT REPORT#:[id number] REPORT STATUS: Signed DATE:11/11/21 TIME: 45 PATIENT: LUIS EDMONDS UNIT #: [id number] ROOM/BED: AGE: 20 SEX: F PCP PHYS: Emily Artis MD SERVICE AUTHOR: Kishor Bishop DO * ALL edits or amendments must be made on the [employer]/computer document * HPI-Back Pain Under 40 Free [...] pH (5.0 - 7.0) 7 Ur Specific [place] (1.005 - 1.030) 1.010 POC Urine Protein [...] Patient Instructions ED Back Pain (Acute or Behavioral Assistant andie) Additional Instructions Return to the ER [...] symptoms should prompt an immediate return to [facility] or the closest emergency department or a call to 911. Electronically Signed by Kishor Bishop DO on at 0107 RPT #:[id number] END OF REPORT 2021-08-08 22:23:00-00:00 [facility] ([facility]) EMERGENCY PROVIDER REPORT REPORT#:[id number] REPORT STATUS: Signed DATE:08/08/21 TIME: 2222 PATIENT: LUIS EDMONDS UNIT #: [id number] ROOM/BED: AGE: 20 SEX: F PCP PHYS: Emily Artis MD SERVICE AUTHOR: Aggie Chavez MD * ALL edits or amendments must be made on the [employer]/computer document * HPI-Recheck W/B/S General Initial Greet [...] symptoms should prompt an immediate return to [facility] or the closest emergency department or a call to 911. at [facility] RPT #:[id number] END OF REPORT 2021-03-28 09:04:00-00:00 [facility] ([facility]) OB Disch REPORT#:[id number] REPORT STATUS: Signed DATE:03/28/21 TIME: 903 PATIENT: LUIS EDMONDS UNIT #: [id number] ROOM/BED: [place] [address] : 02 AGE: 20 SEX: F ATTEND: Fabio Burciaga MD ADM AUTHOR: Luis Burciaga MD * ALL edits or amendments must be made on the el [employer]/computer document * Subjective Subjective Admission EGA: Weeks: [...] nfant A: 1807 Birthweight (gm) A: 3200 Feeding preference: Gender infant A: Female 1 minute A: 8 5 minutes infant A: 9 10 minutes infant A: Provider comments on imported nursing data: [] Plan: routine care, discharge today Discharge Instructions Instructions: routine instr sheet given Diet: Resume Home Diet/Feeds Activity: Resume Normal Activity Additional discharge routines: None at 0905 [facility] #:[id number] END OF REPORT 2021-03-28 09:03:00-00:00 [facility] ([facility]) OB Postpart Progr Note REPORT#:[id number] REPORT STATUS: Signed DATE:03/28/21 TIME: 902 PATIENT: LUIS EDMONDS UNIT #: [id number] ROOM/BED: [place] [address] : 02 AGE: 20 SEX: F ATTEND: Fabio Burciaga MD ADM AUTHOR: Luis Burciaga MD * ALL edits or amendments must be made on the [employer]/computer document * Subjective Subjective Admission EGA: Weeks: [...] routine care, discharge today at 0904 RPT #:[id number] END OF REPORT 2021-03-27 09:21:00-00:00 [facility] ([facility]) OB Postpart Progr Note REPORT#:[id number] REPORT STATUS: Signed DATE:03/27/21 TIME: 920 PATIENT: LUIS EDMONDS UNIT #: [id number] ROOM/BED: [place] [address] : 02 AGE: 20 SEX: F ATTEND: Fabio Burciaga MD ADM AUTHOR: Luis Burciaga MD * ALL edits or amendments must be made on the el wise.io/computer document * Subjective Subjective Admission EGA: Weeks: [...] % (Auto) (14.0 - 32.0 %) 24.9 [place] % (Auto) (4.8 - 9.0 %) 9.4 H Eos % (Auto) (0.3 - 3.7 %) 0.6 Baso % (Auto) (0.0 - 2.0 %) 0.2 Neut # (Auto) (2.0 - 7.6 x10 3/uL) 8.09 H Lymph # (Auto) (1.0 - 3.8 x10 3/uL) 3.13 [place] # (Auto) (0.1 - 0.8 x10 3/uL) [...] progress Plan: routine care at 0922 RPT #:[id number] END OF REPORT 2021-03-26 18:49:00-00:00 [facility]) OB Delivery Note REPORT#:[id number] REPORT STATUS: Signed DATE:03/26/21 TIME: 1848 PATIENT: LUIS EDMONDS UNIT #: [id number] ROOM/BED: [place] [address] : 02 AGE: 20 SEX: F ATTEND: [...] A: 1807 Birthweight (gm) infant A: 3200 Weight (lb) infant A: Weight (oz) A: Gender A: Female 1 minute infant A: 5 minutes A: 10 minutes A: Cord pH obtained A: Vacuum time infant A: Vacuum # [...] loss at delivery: 50 at 1852 RPT #:[id number] END OF REPORT 2021-03-26 08:25:00-00:00 [facility] ([facility]) DT History Physical REPORT#:[id number] REPORT STATUS: Signed DATE:03/26/21 TIME: 824 PATIENT: LUIS EDMONDS UNIT #: [id number] ROOM/BED: [place] [address] : 02 AGE: 20 SEX: F ATTEND: Fabio Burciaga MD ADM AUTHOR: Luis Burciaga MD * ALL edits or amendments must be made on the el wise[employer]io/[employer] document * History Physical History Physical Please care records and office H P at 2112 RPT #:[id number] END OF REPORT 2021-03-12 21:16:00-00:00 [facility] ([facility]) OB Medical Screening Exam REPORT#:[id number] REPORT STATUS: Signed DATE:03/12/21 TIME: 2115 PATIENT: LUIS EDMONDS UNIT #: [id number] ROOM/BED: : 02 AGE: 20 SEX: F ATTEND: Effie Beavers MD ADM AUTHOR: Effie Solitario * ALL edits or amendments must be made on the el ectronic/computer document * Medical Screening Exam Provider Attestation Attestation: The QMP MSE reviewed. Provider at bedside at 2113 Comments: 20 y/o GP0 IUP 35 4/7 presents due to leaking of fluid and contractions. at 2152 RPT #:[id number] END OF REPORT 2021-03-12 21:16:00-00:00 [facility] ([facility]) OLGA Evaluation Note REPORT#:[id number] REPORT STATUS: Signed DATE:03/12/21 TIME: 2115 PATIENT: LUIS EDMONDS UNIT #: [id number] ROOM/BED: [place] [address] : 02 AGE: 20 SEX: F ATTEND: Effie Beavers MD ADM AUTHOR: Effie Solitario MD * ALL edits or amendments must be made on the [employer]/computer document * OLGA History Chief complaint: uterine [...] toco Frequency (description): uterine irritability Frequency (minutes): SUPERVISOR OF RESEARCH: Normal exteral genitalia Cervical/ exam: Speculum exam: [...] will have her follow-up with her O B/SUPERVISOR OF RESEARCH. Assessment: no evidence labor Impression: reactive NST Plan: discharge home Plan discussed with: patient, nurse at 0104 RPT #:[id number] END OF REPORT 2021-03-01 06:09:00-00:00 [facility]) OLGA Evaluation Note REPORT#:[id number] REPORT STATUS: Signed DATE:03/01/21 TIME: 608 PATIENT: LUIS EDMONDS UNIT #: [id number] ROOM/BED: 304-1 : 02 AGE: 20 SEX: [...] TAB PO DAILY 12/25/20 03/01/21 FUMARATE/FA 1511 0551 () Strength: 1 EACH TAB Allergies Uncoded [...] Monitor: toco Frequency (description): irregular Frequency (minutes): SUPERVISOR OF RESEARCH: Normal exteral genitalia Cervical/ exam: Dilatation (cm): [...] AT HER APT WEDNESDAY. at 0854 RPT #:[id number] END OF REPORT 2021-03-01 06:09:00-00:00 [facility] OB Medical Screening Exam REPORT#:[id number] REPORT STATUS: Signed DATE:03/01/21 TIME: 608 PATIENT: LUIS EDMONDS UNIT #: [id number] ROOM/BED: [place] [address] : 02 AGE: 20 SEX: F ATTEND: Fabio Burciaga MD ADM AUTHOR: Effie Solitario * ALL edits or amendments must be made on the el ectronic/computer document * Medical Screening Exam Provider Attestation Attestation: The QMP MSE reviewed. Provider at bedside at 0600 Comments: IUP 34 0/7 presents due to decreased movem ents and pelvic pressure. at 0643 RPT #:[id number] END OF REPORT 2021-03-01 06:09:00-00:00 [facility] ([facility]) OL[place] Evaluation Note REPORT#:[id number] REPORT STATUS: Signed DATE:03/01/21 TIME: 608 PATIENT: LUIS EDMONDS UNIT #: [id number] ROOM/BED: [place] [address] : 02 AGE: 20 SEX: F ATTEND: Fabio Burciaga MD ADM AUTHOR: Effie Solitario * ALL edits or amendments must be made on the [employer]/computer document * OL[place] History Chief complaint: decreased [...] TAB PO DAILY 12/25/20 03/01/21 FUMARATE/FA 1511 0509 () Strength: 1 EACH TAB Allergies Uncoded [...] Monitor: toco Frequency (description): irregular Frequency (minutes): SUPERVISOR OF RESEARCH: Normal exteral genitalia Cervical/ exam: Dilatation (cm): [...] assume care at 0700 at 0647 RPT #:[id number] END OF REPORT 2021-02-17 15:34:00-00:00 [facility] OB Medical Screening Exam REPORT#:[id number] REPORT STATUS: Signed DATE:02/17/21 TIME: 153 PATIENT: LUIS EDMONDS UNIT #: [id number] ROOM/BED: [place] [address] : 02 AGE: 20 SEX: F ATTEND: Effie Beavers MD ADM DT: AUTHOR: Effie Solitario MD * ALL edits or amendments must be made on the el [employer]/computer document * Medical Screening Exam Provider Attestation Attestation: The QMP MSE reviewed. Provider at bedside at 1537 Comments: 20 y/o IUP 32 2/7 presents due to gush of f luids and cramping. at 1615 RPT #:[id number] END OF REPORT 2021-02-17 15:34:00-00:00 [facility] ([facility]) OLGA Evaluation Note REPORT#:[id number] REPORT STATUS: Signed DATE:02/17/21 TIME: 1534 PATIENT: LUIS EDMONDS UNIT #: [id number] ROOM/BED: : 02 AGE: 20 SEX: F ATTEND: Effie Beavers MD ADM DT: AUTHOR: Effie Solitario MD * ALL edits or amendments must be made on the [employer]/computer document * OLGA History Chief complaint: uterine [...] Monitor: toco Frequency (description): none Frequency (minutes): SUPERVISOR OF RESEARCH: Normal exteral genitalia Cervical/ exam: Speculum exam: [...] 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 Assessment: no evidence labor Impression: reactive NST Plan: discharge home Plan discussed with: patient, nurse at [facility] RPT #:[id number] END OF REPORT 2021-02-12 21:22:00-00:00 [facility] ([facility]) OB Medical Screening Exam REPORT#:[id number] REPORT STATUS: Signed DATE:02/12/21 TIME: 2121 PATIENT: LUIS EDMONDS UNIT #: [id number] ROOM/BED: : 02 AGE: 20 SEX: F ATTEND: Effie Beavers MD ADM DT: AUTHOR: Effie Solitario MD * ALL edits or amendments must be made on the [employer] document * Medical Screening Exam Provider Attestation Attestation: The QMP MSE reviewed. Provider at bedside at 0754 Comments: 20 y/o IUP 32 0/7 presents due to complaind of abdominal and epigastric pain, nausea and decreased movements. at 0915 RPT #:[id number] END OF REPORT 2021-02-12 21:21:00-00:00 [facility] OLGA Evaluation Note REPORT#:[id number] REPORT STATUS: Signed DATE:02/12/21 TIME: 2120 PATIENT: LUIS EDMONDS UNIT #: [id number] ROOM/BED: : 02 AGE: 20 SEX: F ATTEND: Effie Beavers MD ADM DT: AUTHOR: Effie Solitario MD * ALL edits or amendments must be made on the [employer] document * [place] History Chief complaint: uterine [...] Monitor: toco Frequency (description): none Frequency (minutes): SUPERVISOR OF RESEARCH: Normal exteral genitalia Cervical/ exam: Speculum exam: no discharge Dilatation (cm): closed Effacement (%): thick station: high FHR evaluation: FHR category: category I Results Findings/Data: Laboratory Tests: 02/12 Miscellaneous Fibronectin (NEGATIVE) NEGATIVE Urines Urine Color (YEL/STRAW) YELLOW Urine Appearance (CLEAR) CLEAR Urine pH (5.0 - 7.0) 6.0 Ur Specific [place] (1.005 - 1.030) 1.006 Urine Protein (NEGATIVE) [...] understanding will have her follow-up with her CORPORATE EXECUTIVE CHEF. Assessment: no evidence labor Impression: reactive NST Plan: discharge home Plan discussed with: patient, nurse at 0921 RPT #:[id number] END OF REPORT 2021-01-29 03:41:00-00:00 [facility] ([facility]) OL[place] Evaluation Note REPORT#:[id number] REPORT STATUS: Signed DATE:01/29/21 TIME: 0341 PATIENT: LUIS EDMONDS UNIT #: [id number] [facility] AGE: 20 SEX: F ATTEND: Dhara Chavez MD ADM AUTHOR: Dottie Chavez MD * ALL edits or amendments must be made on the HitMe[employer]/computer document * [place] History Chief complaint: uterine [...] pH (5.0 - 7.0) 7.0 Ur Specific [place] (1.005 - 1.030) 1.010 Urine Protein (NEGATIVE) [...] f/u as scheduled with primary OB in [place], [place] at 0355 RPT #:[id number] END OF REPORT 2021-01-29 03:39:00-00:00 [facility] ([facility]) OB Medical Screening Exam REPORT#:[id number] REPORT STATUS: Signed DATE:01/29/21 TIME: 033 PATIENT: LUIS EDMONDS UNIT #: [id number] ROOM/BED: [place] [address] : 02 AGE: 20 SEX: F ATTEND: [...] lof/rom. no vb . at 0341 RPT #:[id number] END OF REPORT 2020-12-25 16:25:00-00:00 [facility] ([facility]) OLGA Evaluation Note REPORT#:[id number] REPORT STATUS: Signed DATE:12/25/20 TIME: 1625 PATIENT: LUIS EDMONDS UNIT #: [id number] ROOM/BED: [place] [address] : 02 AGE: 20 SEX: F ATTEND: Arthur Chavez DO ADM AUTHOR: Pearl Chavez DO * ALL edits or amendments must be made on the el [employer]/computer document * OLGA History Chief complaint: discomfort, nausea and vomiting HPI: 20 y/o EDC 04/12 at 24 w 4 day presents with low back pain, vaginal pain, pressure like needs to take BM, and she is not sure what the fluid that leaked at 0200 this am was, denies urine. She was told in prior u/s at [facility] that ISMA was low, she did [...] for cxn. Will f/u at 1632 RPT #:[id number] END OF REPORT 2020-12-25 16:25:00-00:00 [facility] ([facility]) OLGA Evaluation Note REPORT#:[id number] REPORT STATUS: Signed DATE:12/25/20 TIME: 1625 PATIENT: LUIS EDMONDS UNIT #: [id number] ROOM/BED: [place] [address] : 02 AGE: 20 SEX: F ATTEND: Arthur Chavez DO ADM AUTHOR: Pearl Chavez DO * ALL edits or amendments must be made on the [employer]/computer document * See Addendum OLGA History Chief complaint: discomfort, nausea and vomiting HPI: 20 y/o EDC 04/12 at 24 w 4 day presents with low back pain, vaginal pain, pressure like needs to take BM, and she is not sure what the fluid that leaked at 0200 this am was, denies urine. She was told in prior u/s at [facility] that ISMA was low, she did [...] her OB this week. at 1807 RPT #:[id number] END OF REPORT 2020-12-25 16:24:00-00:00 [facility] ([facility]) OB Medical Screening Exam REPORT#:[id number] REPORT STATUS: Signed DATE:12/25/20 TIME: 1623 PATIENT: LUIS EDMONDS UNIT #: [id number] ROOM/BED: [place] [address] : 02 AGE: 20 SEX: F ATTEND: Arthur Chavez DO ADM AUTHOR: Pearl Chavez DO * ALL edits or amendments must be made on the el wise.io/computer document * Medical Screening Exam Provider Attestation Comments: Pt triaged at 1610. at 1625 RPT #:[id number] END OF REPORT 2020-11-23 00:54:00-00:00 [facility] [facility] ([facility]) OB Triage Visit REPORT#:[id number] REPORT STATUS: Signed DATE:11/23/20 TIME: 53 PATIENT: LUIS EDMONDS UNIT #: [id number] ROOM/BED: [place] [address] : 02 AGE: 19 SEX: F ATTEND: [...] and reassured. Patient recieves PNC at the [facility]. Did not need to wear a ad [...] type ordered Ultrasound complete at 0107 RPT #:[id number] END OF REPORT 2020-10-05 03:31:00-00:00 [facility] ([facility]) EMERGENCY PROVIDER REPORT REPORT#:[id number] REPORT STATUS: Signed DATE:10/05/20 TIME: 330 PATIENT: LUIS EDMONDS UNIT #: [id number] ROOM/BED: AGE: 19 SEX: F PCP PHYS: Elina Rome MD SERVICE AUTHOR: Nirav Nolan MD * ALL edits or amendments must be made on the HitMe[employer]/computer document * HPI- Female Peds Free Text [...] (ZOFRAN ODT) 4 MG PO Q6H PRN TN N NAUSEA/VOMITING #15 TABS Prov: 08/22/20 Reported [...] % (Auto) (28.0 - 48.0 %) 33.4 [place] % (Auto) (3.0 - 15.0 %) 6.3 Eos % (Auto) (1.0 - 8.0 %) 1.1 Baso % (Auto) (0.0 - 2.0 %) 0.5 Neut # (Auto) (2.0 - 3.2 x10 3/uL) 7.28 H Lymph # (Auto) (1.0 - 3.8 x10 3/uL) 4.17 H [place] # (Auto) (0.1 - 0.8 x10 3/uL) [...] 3/uL) 0.0 0 Miscellaneous Maternal Serum HCG 03747.3 Urines Urine Color (YEL/STRAW) YELLOW Urine Appearance (CLEAR) CLEAR Urine pH (5.0 - 7.0) 5.0 Ur Specific [place] (1.005 - 1.030) 1.017 Urine Protein (NEGATIVE) [...] (ZOFRAN ODT) 4 MG PO Q6H PRN TN N NAUSEA/VOMITING #15 TABS DICYCLOMINE (BENTYL) 20 MG PO QID DICYCLOMINE (BENTYL) 20 MG PO QID #30 TABS Patient Instructions ED Abdo farheen Pain, Early , ED Possible Miscarriage ... Additional Instructions TYLENOL DIRECTED at 2314 RPT #:[id number] END OF REPORT 2020-08-22 20:42:00-00:00 [facility]L [facility] ([facility]) EMERGENCY PROVIDER REPORT REPORT#:[id number] REPORT STATUS: Signed DATE:08/22/20 TIME: 2041 PATIENT: LUIS EDMONDS UNIT #: [id number] ROOM/BED: AGE: 19 SEX: F PCP PHYS: Elina Rome MD SERVICE AUTHOR: Cathy Bruce * ALL edits or amendments must be made on the el [email or web address]/computer document * HPI- Female Free Text HPI Notes Free Text HPI Notes 19-year-old female G1, 6 weeks EGA with LM presents to ED after positive test shaping machine tender's office jonnie loyd today. She reports associated [...] No palpable masses or pulsetile masses. Negative [place] Sign. No TTP at [place] Ext: [...] % (Auto) (28.0 - 48.0 %) 30.6 [place] % (Auto) (3.0 - 15.0 %) 5.9 Eos % (Auto) (1.0 - 8.0 %) 0.6 L Baso % (Auto) (0.0 - 2.0 %) 0.7 Neut # (Auto) (2.0 - 3.2 x10 3/uL) 6.51 H Lymph # (Auto) (1.0 - 3.8 x10 3/uL) 3.22 [place] # (Auto) (0.1 - 0.8 x10 3/uL) [...] 3/uL) 0.0 0 Miscellaneous Maternal Serum HCG 58857.6 Urines Urine Color (YEL/STRAW) STRAW Urine Appearance (CLEAR) CLEAR Urine pH (5.0 - 7.0) 6.0 Ur Specific [place] (1.005 - 1.030) 1.008 Urine Protein (NEGATIVE) [...] (ZOFRAN ODT) 4 MG PO Q6H PRN TN N NAUSEA/VOMITING #15 TABS Prescriptions Reviewed Risks, [...] symptoms should prompt an immediate return to [facility] or the closest emergency department or a call to 911. at 2346 RPT #:[id number] END OF REPORT 2020-08-22 20:42:00-00:00 [facility] EMERGENCY PROVIDER REPORT REPORT#:[id number] REPORT STATUS: Signed DATE:08/22/20 TIME: 2041 PATIENT: LUIS EDMONDS UNIT #: [id number] ROOM/BED: AGE: 19 SEX: F PCP PHYS: Elina Rome MD SERVICE AUTHOR: Cathy Bruce * ALL edits or amendments must be made on the el [email or web address]/computer document * Cathy Bruce 08/22/202041: HPI- Female Free Text HPI Notes Free Text HPI Notes 19-year-old female G1, 6 weeks EGA with LM presents to ED after positive test shaping machine tender's office ea evert today. She reports associated [...] No palpable masses or pulsetile masses. Negative [place] Sign. No TTP at [place] Ext: [...] % (Auto) (28.0 - 48.0 %) 30.6 [place] % (Auto) (3.0 - 15.0 %) 5.9 Eos % (Auto) (1.0 - 8.0 %) 0.6 L Baso % (Auto) (0.0 - 2.0 %) 0.7 Neut # (Auto) (2.0 - 3.2 x10 3/uL) 6.51 H Lymph # (Auto) (1.0 - 3.8 x10 3/uL) 3.22 [place] # (Auto) (0.1 - 0.8 x10 3/uL) [...] 3/uL) 0.0 0 Miscellaneous Maternal Serum HCG 90614.6 Urines Urine Color (YEL/STRAW) STRAW Urine Appearance (CLEAR) CLEAR Urine pH (5.0 - 7.0) 6.0 Ur Specific [place] (1.005 - 1.030) 1.008 Urine Protein (NEGATIVE) [...] (ZOFRAN ODT) 4 MG PO Q6H PRN TN N NAUSEA/VOMITING #15 TABS Prescriptions Reviewed Risks, [...] symptoms should prompt an immediate return to [facility] or the closest emergency department or a call to 911. Loi Hassan. 08/24/20 2338: HPI- Female General Initial Greet Date/Time 08/22/20 2018 Patient Discharge Departure Supervising Physician Note MidLv Saw Pt Alone I have reviewed the PA/CHART CLERK's note and plan of car e. I was available for consultation as needed at al l times during the patient's visit in the emergency department. I agree with the clinical impression , plan and disposition. at 2346 at 2336 RPT #:[id number] END OF REPORT 2020-02-15 23:20:00-00:00 [facility] ([facility]) EMERGENCY PROVIDER REPORT REPORT#:[id number] REPORT STATUS: Signed DATE:02/15/20 TIME: 2319 PATIENT: LUIS EDMONDS UNIT #: [id number] ROOM/BED: AGE: 19 SEX: F PCP PHYS: Elina Rome MD SERVICE AUTHOR: Amilcar Pablo CHART CLERK * ALL edits or amendments must be made on the HitMeUp/computer document * HPI-General Illness Free Text HPI [...] (Auto) (28.0 - 48.0 %) 13.9 L [place] % (Auto) (3.0 - 15.0 %) 10.0 Eos % (Auto) (1.0 - 8.0 %) 0.0 L Baso % (Auto) (0.0 - 2.0 %) 0.4 Neut # (Auto) (2.0 - 3.2 x10 3/uL) 9.16 H Lymph # (Auto) (1.0 - 3.8 x10 3/uL) 1.70 [place] # (Auto) (0.1 - 0.8 x10 3/uL) [...] pH (5.0 - 7.0) 6.0 Ur Specific [place] (1.005 - 1.030) 1.015 Urine Protein (NEGATIVE) [...] Amilcar Pablo NP on at 0332 RPT #:[id number] END OF REPORT 2020-02-15 23:20:00-00:00 [facility] EMERGENCY PROVIDER REPORT REPORT#:[id number] REPORT STATUS: Signed DATE:02/15/20 TIME: 2319 PATIENT: LUIS EDMONDS UNIT #: [id number] ROOM/BED: AGE: 19 SEX: F PCP PHYS: Elina Rome MD SERVICE AUTHOR: Amilcar Pablo NP * ALL edits or amendments must be made on the HitMeUp/computer document * Amilcar Pablo 02/15/20 2320: HPI-General [...] (Auto) (28.0 - 48.0 %) 13.9 L [place] % (Auto) (3.0 - 15.0 %) 10.0 Eos % (Auto) (1.0 - 8.0 %) 0.0 L Baso % (Auto) (0.0 - 2.0 %) 0.4 Neut # (Auto) (2.0 - 3.2 x10 3/uL) 9.16 H Lymph # (Auto) (1.0 - 3.8 x10 3/uL) 1.70 [place] # (Auto) (0.1 - 0.8 x10 3/uL) [...] pH (5.0 - 7.0) 6.0 Ur Specific [place] (1.005 - 1.030) 1.015 Urine Protein (NEGATIVE) [...] Saw Pt Alone I have reviewed the PA/CHART CLERK's note and plan of trey rosario. I was available for consultation as needed at al l times during the patient's visit in the emergency department. I agree with the clinical impression , plan and disposition. Electronically Signed by Amilcar Pablo CHART CLERK on at 0332 RPT #:[id number] END OF REPORT 2020-02-15 23:20:00-00:00 [facility] ([facility]) EMERGENCY PROVIDER REPORT REPORT#:[id number] REPORT STATUS: Signed DATE:02/15/20 TIME: 2319 PATIENT: LUIS EDMONDS UNIT #: [id number] ROOM/BED: AGE: 19 SEX: F PCP PHYS: Elina Rome MD SERVICE AUTHOR: Amilcar Pablo CHART CLERK * ALL edits or amendments must be made on the HitMeUp/computer document * Amilcar Pablo 02/15/202319: HPI-General Illness [...] (Auto) (28.0 - 48.0 %) 13.9 L [place] % (Auto) (3.0 - 15.0 %) 10.0 Eos % (Auto) (1.0 - 8.0 %) 0.0 L Baso % (Auto) (0.0 - 2.0 %) 0.4 Neut # (Auto) (2.0 - 3.2 x10 3/uL) 9.16 H Lymph # (Auto) (1.0 - 3.8 x10 3/uL) 1.70 [place] # (Auto) (0.1 - 0.8 x10 3/uL) [...] pH (5.0 - 7.0) 6.0 Ur Specific [place] (1.005 - 1.030) 1.015 Urine Protein (NEGATIVE) [...] Saw Pt Alone I have reviewed the PA/CHART CLERK's note and plan of car e. I was available for consultation as needed at al l times during the patient's visit in the emergency department. I agree with the clinical impression , plan and disposition. Electronically Signed by Amilcar Pablo NP on at 0332 at 0517 [facility] #:[id number] END OF REPORT 2019-05-22 11:29:00-00:00 [facility] (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 Pt reports eating sour Skittles and felt sensation of throat swelling with associated neck/throat itchiness a nd SOB. She took 50mg of Benadryl and Epi Pen at scho ol MAINTENANCE SHOP WELDER. Pt was seen here previously on 05/02/19 [...] Dose Route Stop Time Status Admin Ipratropium [place] 0.5 MG Q15M 05/22 1130 DC 1 [...] symptoms should prompt an immediate return to [facility] or the closest emergency department or a [...] Carla Toledo MD on at 202 RPT #:[id number] END OF REPORT 2019-05-02 09:53:00-00:00 [facility] ([facility]) EMERGENCY PROVIDER REPORT REPORT#:[id number] REPORT STATUS: Signed DATE:05/02/19 TIME: 952 PATIENT: LUIS EDMONDS UNIT #: [id number] ROOM/BED: AGE: 18 SEX: F PCP PHYS: Elina Rome MD SERVICE AUTHOR: Carla Toledo MD * ALL edits or amendments must be made on the el [email or web address]/computer document * HPI-Allergic Reaction Peds General Confirmed Patient Yes Initial Greet Date/Time 05/02/[address] 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 Now c/o itchy throat. Denies nause a [...] symptoms should prompt an immediate return to [facility] or the closest emergency department or a [...] Signed by Carla Toledo MD on at 4428 RPT #:[id number] END OF REPORT
[2023-03-02 02:00] LABS: Specific Gravity 1.024 (1.005-1.030); Urine Bilirubin NEGATIVE (Negative); Urine Blood Negative (Negative); Urine Clarity Clear (Clear); Urine Color Light-Yellow (Yellow); Urine Glucose NEGATIVE (Negative); Urine Protein NEGATIVE (Negative); Urine Urobilinogen Normal (Normal); Urine pH 6.5 (5.0-7.0)
[2023-03-02 02:21] LABS: Specific Gravity 1.024 (1.005-1.030)
[2023-03-02 02:22] LABS: Absolute Lymphocytes (CBC) 4.3 K/uL (0.7-4.9); Hematocrit 36.8 % (36.0-45.0); Lymphocytes % 42.1 % (15.3-44.8); MCV 85.4 fL (80-100); MPV 8.5 fL (7.6-11.3); Platelets 286 thou/uL (152-406); RBC Red Blood Cell Count 4.31 M/uL (3.86-4.86)
[2023-03-02 02:34] LABS: Albumin 4.2 g/dL (3.4-5.0); Bilirubin Total 0.2 mg/dL (0.2-1.0); Potassium 3.9 mEq/L (3.5-5.1); Protein, Total 7.9 g/dL (6.4-8.2)
--- NOTE | 2023-03-02 02:41 | ER ---
Nurse's Notes [facility] Name: Hilaria Rogers Age: 22 yrs Sex: Female : 2000 Arrival Date: 03/02/2023 Time: 00:45 Bed 11 Private MD: Diagnosis: Other cholelithiasis without obstruction Presentation: 03/02 01:35 Chief complaint: Patient states: Anything I eat that is not cheese causes me lots of vc1 pain. Coronavirus screen: Vaccine status: Patient reports receiving the 2nd dose of the covid vaccine. [email or web address] Client denies travel out of the [place] in the last 14 days. At this time, the client does not indicate any symptoms associated with coronavirus-19. Ebola Screen: Patient negative for fever greater than or equal to 101.5 degrees Fahrenheit, and additional compatible Ebola Virus Disease symptoms Patient denies exposure to infectious person. Patient denies travel to an Ebola-affected area in the 21 days before illness onset. Note Started after she had her child, (4 months ago). 01:35 Method Of Arrival: Ambulatory vc1 01:39 Initial Sepsis Screen: Does the patient meet any 2 criteria? No. Patient's initial vc1 sepsis screen is negative. Does the patient have a suspected source of infection? No. Patient's initial sepsis screen is negative. Risk Assessment: Do you want to hurt yourself or someone else? Patient reports no desire to harm self or others. Onset of symptoms is unknown. 01:39 Acuity: CONCHITA 4 vc1 Triage Assessment: 01:38 General: Appears in no apparent distress. comfortable, Behavior is calm, cooperative, vc1 appropriate for age. Pain: Denies pain. EENT: No deficits noted. No signs and/or symptoms were reported regarding the EENT system. Neuro: Level of Consciousness is awake, alert, obeys commands, Oriented to person, place, time, situation, Appropriate for age. Cardiovascular: No deficits noted. Respiratory: Airway is patent Respiratory effort is even, unlabored, Respiratory pattern is regular, symmetrical. GI: Reports upper abdominal pain, intolerance of food, pain only after eating. : No deficits noted. No signs and/or symptoms were reported regarding the genitourinary system. Derm: No deficits noted. No signs and/or symptoms reported regarding the dermatologic system. Musculoskeletal: No deficits noted. No signs and/or symptoms reported regarding the musculoskeletal system. 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 Note plus 1 booster. - Social history:: Smoking status: Patient denies any tobacco usage or history of. Screenin:39 [facility] ED Fall Risk Assessment (Adult) History of falling in the last 3 months, vc1 including since admission No falls in past 3 months (0 pts) Confusion or Disorientation No (0 pts) Intoxicated or Sedated No (0 pts) Impaired Gait No (0 pts) Mobility Assist Device Used No (0 pt) Altered Elimination No (0 pt). Abuse screen: Denies threats or abuse. Nutritional screening: No deficits noted. Tuberculosis screening: No symptoms or risk factors identified. Vital Signs: 01:39 BP 157 / 95; Pulse 80; Resp 18; Temp 97.7; Pulse Ox 98% ; Weight 86.18 kg; Height 5 ft. vc1 9 in. ; Pain 0/10; 01:39 Body Mass Index 28.06 (86.18 kg, 175.26 cm) vc1 01:39 Pain Scale: Adult vc1 ED Course: 00:51 Patient arrived in ED. ag3 00:52 Mitra Matamoros FNP-C [facility]. kb 00:52 Jose Mancia MD is Attending Physician. kb 01:35 Jeanna Mccoy RN is Primary Nurse. vc1 01:39 Arm band placed on right wrist. vc1 01:43 Triage completed. vc1 01:43 Patient has correct armband on for positive identification. Bed in low position. Call vc1 light in reach. Pulse ox on. NIBP on. 01:46 Abdomen Limited US In Process Unspecified. EDMS 02:07 Inserted saline lock: 22 gauge in right antecubital area, using aseptic technique. vc1 Blood collected. 03:03 No provider procedures requiring assistance completed. IV discontinued, intact, vc1 bleeding controlled, No redness/swelling at site. Pressure dressing applied. Administered Medications: No medications were administered Medication: 01:43 VIS not applicable for this client. vc1 Outcome: 02:41 Discharge ordered by . phuong 03:04 Discharged to home ambulatory. vc1 03:04 Condition: good 03:04 Discharge instructions given to patient, Instructed on discharge instructions, follow up and referral plans. Demonstrated understanding of instructions, follow-up care. 03:05 Patient left the ED. vc1 Signatures: Dispatcher [employer] EDMitra Field, BISQUE PLACER-C BISQUE PLACER-Lacy Wells ag3 Jeanna Mccoy, RN RN vc1
--- NOTE | 2023-03-02 02:41 | EDPHYS ---
Physician Documentation [facility] Name: Hilaria Rogers Age: 22 yrs Sex: Female : 2000 Arrival Date: 03/02/2023 Time: 00:45 Bed 11 Private MD: ED Physician Jose Mancia HPI: 03/02 01:56 This 22 yrs old Female presents to ER via Ambulatory with complaints of Abdominal Pain. kb 01:56 The patient presents with abdominal pain in the right upper quadrant. Onset: The kb symptoms/episode began/occurred 1 week(s) ago. The symptoms do not radiate. Associated signs and symptoms: Pertinent positives: nausea and vomiting, Pertinent negatives: constipation, diarrhea, fever. The symptoms are described as intermittent. Modifying factors: The symptoms are alleviated by nothing, the symptoms are aggravated by food. Severity of pain: At its worst the pain was moderate in the emergency department the pain has resolved. The patient has not experienced similar symptoms in the past. The patient has not recently seen a physician. Pt reports RUQ pain after eating anything. 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 Note plus 1 booster. - Social history:: Smoking status: Patient denies any tobacco usage or history of. ROS: 01:56 Constitutional: Negative for fever, chills, and weight loss. kb 01:56 Abdomen/GI: Positive for abdominal pain, nausea and vomiting, Negative for diarrhea, constipation. 01:56 All other systems are negative. Exam: 01:56 Constitutional: This is a well developed, well nourished patient who is awake, alert, kb and in no acute distress. Head/Face: Normocephalic, atraumatic. ENT: Moist Mucous membranes Cardiovascular: Regular rate and rhythm with a normal S1 and S2. No gallops, murmurs, or rubs. No pulse deficits. Respiratory: Respirations even and unlabored. No increased work of breathing. Talking in full sentences Abdomen/GI: Soft, non-tender. No distention Skin: Warm, dry with normal turgor. Normal color. MS/ Extremity: Pulses equal, no cyanosis. Neurovascular intact. Full, normal range of motion. Neuro: Awake and alert, GCS 15, oriented to person, place, time, and situation. Moves all extremities. Normal gait. Vital Signs: 01:39 BP 157 / 95; Pulse 80; Resp 18; Temp 97.7; Pulse Ox 98% ; Weight 86.18 kg; Height 5 ft. vc1 9 in. ; Pain 0/10; 01:39 Body Mass Index 28.06 (86.18 kg, 175.26 cm) vc1 01:39 Pain Scale: Adult vc1 MDM: 01:06 Patient medically screened. kb 01:56 Differential diagnosis: cholecystitis, Cholelithiasis, gastritis, pancreatitis. Data kb reviewed: vital signs, nurses notes. Counseling: I had a detailed discussion with the patient and/or guardian regarding: the historical points, exam findings, and any diagnostic results supporting the discharge/admit diagnosis, lab results, radiology results, the need for outpatient follow up, a family practitioner, a general surgeon, to return to the emergency department if symptoms worsen or persist or if there are any questions or concerns that arise at home. 03/02 01:09 Order name: CBC with Diff; Complete Time: 02:31 kb 03/02 01:09 Order name: CMP; Complete Time: 02:35 kb 03/02 01:09 Order name: Lipase; Complete Time: 02:35 kb 03/02 01:09 Order name: Test, Urine; Complete Time: 02:31 kb 03/02 01:09 Order name: Urinalysis w/ reflexes; Complete Time: 02:02 kb 03/02 01:09 Order name: Abdomen Limited US kb 03/02 01:09 Order name: IV Saline Lock; Complete Time: 02:07 kb 03/02 01:09 Order name: Labs collected and sent; Complete Time: 02:07 kb Administered Medications: No medications were administered Disposition: 03:00 Co-signature as Attending Physician, Jose Mancia MD I agree with the assessment sp4 and plan of care. I reviewed the patient's care provided by the Advanced Practice Provider and agree with the diagnosis and treatment plan. Disposition Summary: 03/02/23 02:41 Discharge Ordered Location: Home kb Condition: Stable kb Diagnosis - Other cholelithiasis without obstruction kb Followup: kb - With: Emergency Department - When: As needed - Reason: Worsening of condition Followup: kb - With: Private Physician - When: 2 - 3 days - Reason: Recheck today's complaints, Continuance of care, Re-evaluation by your physician Discharge Instructions: - Discharge Summary Sheet kb - Cholelithiasis, [id number] kb Forms: - Medication Reconciliation Form kb - Thank You Letter kb - Antibiotic Education kb - Prescription Opioid Use kb - Patient Portal Instructions kb - Leadership Thank You Letter kb Signatures: Dispatcher [employer] EDMS Mitra Matamoros, MONKEY KEEPER-C Jeanna Marroquin RN RN vc1 Jose Mancia MD MD sp4
[2023-03-02 03:39] VITALS: BP 157/95; TEMP 97.7; O2SAT 98
--- NOTE | 2023-03-02 13:40 | RAD REPORT ---
EXAM DESCRIPTION: US - Abdomen Exam Limited - 03/02/2023 1:44 am CLINICAL HISTORY: 22 years, Female, ABD PAIN COMPARISON: None. TECHNIQUE: Utilizing a curved array transducer, real-time ultrasound evaluation of the abdominal vis cera was performed. Color Doppler imaging was used to assess vascular flow. FINDINGS: The demonstrate normal echo pattern. No focal areas of increased or decreased echogenici ty was seen within the submitted images. The gallbladder demonstrate to be within normal limits. No gallbladder stones were seen. There is a tiny echogenic structure within the gallbladder wall measuring 1.1 x 1.6 mm corresponding to a gallb ladder polyp/or tiny cholesterol crystal. No pericholecystic fluid and or wall thickening was identif ied. The common bile duct measures 2.8 mm. No intra or extrahepatic biliary duct dilatation was i dentified. No significant free fluid within the visualized portions of the upper abdomen. IMPRESSION: No acute abnormalities. Small gallbladder polyp versus cholesterol crystal. Electronically signed by: Nabil Morgan MD 03/02/2023 2:47 AM CDT Due to temporary technical issues with the PACS/Fluency reporting system, reports are being signed by the in house radiologists without review as a courtesy to insure prompt reporting. The interpreting radiologist is fully responsible for the content of the report.
== END 2023-03-02 03:05 | disposition home or self-care (01) ==
LOC: ER 00:45
DX: K80.80 Other cholelithiasis without obstruction (principal)
CPT/HCPCS: 36415; 76705; 80053; 81003; 81025; 83690; 85025; 99284

== ENCOUNTER → 2023-08-22 | Emergency (ER) | payer OTHER ==
[~2023-08-22] MED LIST: METOCLOPRAMIDE 10 MG/2mL INJ ONE; MORPHINE 4 MG/ML SYR ONE; NA CHLORIDE 0.9% 1,000 ML ONE; ONDANSETRON 4 MG/2 ML VIAL ONE; PROMETHAZINE INJ 25 MG/ML AMP ONE
--- OUTSIDE RECORDS SUMMARY | 2023-08-22 22:47 | XMS REPORT | Continuity of Care Document ---
Author Name Unknown Address [address] [facility] [place] [address] [facility] thconnect Address [address] [facility] [place] [address] Care Team Providers Care Wire Preparation Worker Name Role Phone FREDERICK RICHARDSON Primary Care Physician Unavailab Brittnee Acosta Attending Clinician UnavailMADHAVI Garnett Attending Clinician Unavailable MERT MILES Attending Clinician Unavailable MERT MILES Attending Clinician Unavailable PHILL ROMAN Attending Clinician Unavailjas Roman MD, Phill Nash Attending Clinician [phone] Luis Burciaga Attending Clinician UnavailSUZY Malcolm Attending Clinician Unavailable Suzy Uriostegui MD Attending Clinician [phone] Effie Marquez Attending Clinician Unava ANTONIA Corbett Attending Clinician Unavailable Antonia Pike MD Attending Clinician [phone] Ghanshyam Chavez Attending Clinician Tierney vilma Nurse, Osvaldo Evangelista Attending Clinician Unavaila Frederick Herrera MD Attending Clinician [phone] FREDERICK RICHARDSON Attending Clinician Unavailable AR RICHARDSON Attending Clinician Unavailable Ar Richardson MD Attending Clinician [phone] Kishor Bishop Attending Clinician Unavailable ELINA ROME Attending Clinician Unavailable Madhavi Roman PA-C Attending Clinician [phone] Dottie Chavez Attending Clinician Unavailabl marlene MIRELES, Nathalia Cagle Attending Clinician + [phone] Ny Khan MD Attending Clinician [phone] Olivier TREE LOADER MEAT, Aneta Esparza Attending Clinician + [phone] Unknown, Attending Attending Clinician Unavailab miah LOPEZ, ATTENDING Attending Clinician Unavailab Pearl Petersen Attending Clinician Unavailjas Noble RN, Tashia Rae Attending Clinician Unavailab miah Last TREE LOADER MEAT, Lily Hummel Attending Clinician [phone] Maryellen PICKERING, Lydia Hilton Attending Clinician [phone] Doctor Unassigned, [place] Attending Clinician Liberty Thomas Attending Clinician LIBERTY CAMP Attending Clinician Unavailable Wiliam INTERNATIONAL NURSE, Antonia Attending Clinician + [phone] Dagoberto INTERNATIONAL NURSE, Kassidy Cagle Attending Clinician [phone] Rajan PICKERING, Elina Pandey Attending Clinici an KASSIDY ARENAS Attending Clinician Unavailab REJI Bose Attending Clinician Unavailable Ivet PICKERING, Aiden Conde Attending Clinician [phone] SOSA ADAMES Attending Clinician Unavailable Zacarias PICKERING, Sosa Attending Clinician [phone] Santiago COLE, Sandra Hilton Attending Clinician Unavaila Ashley Schafer DO Attending Clinician [phone] Orquidea PICKERING, Mike Jaffe Attending Clinician [phone] Shahnaz INTERNATIONAL NURSE, Sujata Attending Clinician SUZY URIOSTEGUI Admitting Clinician Unavailable [place] KHAN Admitting Clinician Unavailable Brittnee Ramirez Admitting Clinician UnavailElina Chavez Admitting Clinician Unavail able PHILL ROMAN Admitting Clinician UnavailPhill Garnett MD Admitting Clinician [phone] Luis Burciaga Admitting Clinician UnavailSuzy Malcolm MD Admitting Clinician [phone] Emily Artis Admitting Clinician UnavailANTONIA Samaniego Admitting Clinician Unavailable Effie Solitario Admitting Clinician Gregory ilisha Physician, No Primary or Family Admitting Clinic lizzeth Unavailable Dottie Chavez Admitting Clinician UnavailNy Frederick MD Admitting Clinician [phone] Pearl Chavez Admitting Clinician UnavailSOSA Bae Admitting Clinician Unavailable Payers Payer Name Policy Type Policy Number Effective Date Expirati on Date Source [facility] [id number] 2023 00:00:00 [facility] [id number] 00:00:00 [facility] [id number] 2023 00:00:00 Problems Condition Name Condition Details Condition Category Status Onset Date Resolution Date Last Treatment Date Treating Clinician Comments Source Acute appendicit is Acute appendicit is Disease Active 2022-07 0 00:00: 00 [facility] Anxiety Anxiety Disease Active [facility] All[facility]ies, Adverse Reactions, Alerts Allergy Name Allergy Type Status Severity Reaction(s) Onset Date Inactive Date Treating Clinician Comments Source MARCUS ACID- THROAT SWELLING DA Active SV 08-03 00:00: 00 [facility] No Known Allergie s DA Active U 11-23 00:00: 00 [facility] No Known Allergie s DA Active U 11-23 00:00: 00 [facility] Malic Acid Drug Allergy Active Swelling 12-24 00:00: 00 [facility] MALIC ACID DRUG INGREDI Active High Swelling 12-24 00:00: 00 [facility] MALIC ACID DA Active SV TONGUE SWELLING, THROAT CLOSING 12-24 00:00: 00 [facility] SOUR MOREAU DRUG INGREDI Active Anaphylaxis 11-15 00:00: 00 [facility] Sour Moreau Propensi ty to adverse reaction s Active Anaphylaxis 11-15 00:00: 00 Sour flavoring on all candy [facility] Social History Social Habit Start Date Stop Date Quantity Comments Source ASSERTION 2022-02-27 00:00:00 [facility] Sexual orientation U [facility] Alcohol intake 2023-05-03 00:00:00 2023-05-03 00:00:00 Ex-drinker (finding) [facility] Exposure to SARS-CoV-2 (event) 2022-10-07 00:00:00 2022-10-17 15:17:00 Not sure [facility] History of Social function 2022-02-25 00:00:00 2022-02-25 00:00:00 [facility] Tobacco use and exposure 2022-02-25 00:00:00 2022-02-25 00:00:00 Smokeless tobacco non-user [facility] Sex Assigned At 2002 00:00:00 2000 00:00:00 [facility] Smoking Status Start Date Stop Date Source Never smoked tobacco [facility] Medications Ordered Medication Name Filled Medication Name Start Date Stop Date Current Medication? Ordering Clinician Indication Dosage Frequency Signature (SIG) Comments Components Source ibuprofen (IBU) tablet 400 mg 2022-07 15:00: 00 Yes 400mg 400 mg, Oral, Q8H, First dose on Wed05/03/23 at 1000, Until Discontinu ed, Routine [facility] ibuprofen (IBU) tablet 400 mg 2022-07 15:00: 00 05-03 19:24 :42 No 400mg 400 mg, Oral, Q8H, First dose on Wed05/03/23 at 1000, Until Discontinu ed, Routine [facility] SERTraline 25 mg tablet 2022-07 12:24: 34 Yes 25mg Take 1 tablet by mouth in the morning. [facility] SERTraline 25 mg tablet 2022-07 12:24: 34 Yes 25mg Take 1 tablet by mouth in the morning. [facility] ketorolac (TORADOL) injection 30 mg 2022-07 04:00: 00 05-03 03:38 :00 No 30mg 30 mg, Slow IV Push, ONCE, 1 dose, On Wed05/02/23 at 2300, Routine [facility] ketorolac (TORADOL) injection 30 mg 2022-07 04:00: 00 05-03 03:38 :00 No 30mg 30 mg, Slow IV Push, ONCE, 1 dose, On Wed05/02/23 at 2300, Routine [facility] ibuprofen 400 mg tablet 2022-07 00:00: 00 05-11 04:59 :00 No [id number] 400mg Take 1 tablet by mouth every 8 (eight) hours as needed for Pain (scale 4-6) for up to 7 days. [facility] traMADoL 50 mg tablet 2023-1 0-16 00:00: 00 05-11 04:59 :00 No [id number] 50mg Take 1 tablet by mouth every 6 (six) hours as needed for Pain (scale 7-10) for up to 7 days. Indication s: acute pain [facility] ibuprofen 400 mg tablet 2022-0716 00:00: 00 05-11 04:59 :00 No [id number] 400mg Take 1 tablet by mouth every 8 (eight) hours as needed for Pain (scale 4-6) for up to 7 days. [facility] traMADoL 50 mg tablet 2022-07 00:00: 00 05-11 04:59 :00 No [id number] 50mg Take 1 tablet by mouth every 6 (six) hours as needed for Pain (scale 7-10) for up to 7 days. Indication s: acute pain [facility] enoxaparin (LOVENOX) injection 40 mg 2022-07 22:00: 00 Yes 40mg 40 mg, Subcutaneo us, DAILY, First dose on 05/02/23 at 1700, Until Discontinu ed, Routine [facility] enoxaparin (LOVENOX) injection 40 mg 2022-07 22:00: 00 05-03 19:24 :42 No 40mg 40 mg, Subcutaneo us, DAILY, First dose on 05/02/23 at 1700, Until Discontinu ed, Routine [facility] lactated ringers IV infusion 1,000 mL 2022-07 17:15: 00 Yes 1000mL at 100 mL/hr, 1,000 mL, IV Infusion, CONTINUOUS , Starting on 05/02/23 at 1215, Until Discontinu ed, Routine, PACU [facility] lactated ringers IV infusion 1,000 mL 2022-07 17:15: 00 05-03 19:24 :42 No 1000mL at 100 mL/hr, 1,000 mL, IV Infusion, CONTINUOUS , Starting on 05/02/23 at 1215, Until 05/03/23 at 1424, Routine, PACU [facility] HYDROcodone -acetaminop hen (NORCO 5) 5-325 mg tablet 1 tablet 2022-07 17:15: 00 05-02 17:48 :00 No 1{tbl} 1 tablet, Oral, ONCE, 1 dose, On 05/02/23 at 1215, Routine, PACU [facility] HYDROcodone -acetaminop hen (NORCO 5) 5-325 mg tablet 1 tablet 2022-07 17:15: 00 05-02 17:48 :00 No 1{tbl} 1 tablet, Oral, ONCE, 1 dose, On 05/02/23 at 1215, Routine, PACU [facility] FENTanyl PF (SUBLIMAZE (PF)) injection 25 mcg 2022-07 17:13: 49 05-02 18:23 :47 No 25ug 25 mcg, Slow IV Push, Q5MIN PRN, 4 doses, Starting on 05/02/23 at 1213, Until 05/02/23 at 1323, Routine, Pain (scale 4-6), PACU [facility] FENTanyl PF (SUBLIMAZE (PF)) injection 25 mcg 2022-07 17:13: 49 05-02 18:23 :47 No 25ug 25 mcg, Slow IV Push, Q5MIN PRN, 4 doses, Starting on 05/02/23 at 1213, Until 05/02/23 at 1323, Routine, Pain (scale 4-6), PACU [facility] HYDROcodone -acetaminop hen (NORCO 5) 5-325 mg tablet 1 tablet 2022-07 16:58: 20 Yes 1{tbl} 1 tablet, Oral, Q4HPRN, Starting on 05/02/23 at 1158, Until Discontinu ed, Routine, Pain (scale 4-6) [facility] HYDROcodone -acetaminop hen (NORCO 5) 5-325 mg tablet 1 tablet 2022-07 16:58: 20 05-03 19:24 :42 No 1{tbl} 1 tablet, Oral, Q4HPRN, Starting on 05/02/23 at 1158, Until 05/03/23 at 1424, Routine, Pain (scale 4-6) [facility] sodium chloride 0.9 % irrigation solution 2022-07 16:49: 00 05-02 17:12 :46 No PRN, Starting on Wed05/02/23 at 1149, Until Wed05/02/23 at 1212, Intra-op [facility] bupivacaine (preserv free) (SENSORCAIN E MPF) 0.25 % (2.5 mg/mL) injection 2022-07 16:35: 00 05-02 17:12 :46 No PRN, Starting on Wed05/02/23 at 1135, Until Wed05/02/23 at 1212, Routine, Intra-op [facility] NaCl 0.9% (NS) IV infusion 1,000 mL 2022-07 09:30: 00 05-02 16:57 :40 No 1000mL at 125 mL/hr, IV Infusion, CONTINUOUS , Starting on Wed05/02/23 at 0430, Until Wed05/02/23 at 1157, Routine [facility] NaCl 0.9% (NS) IV infusion 1,000 mL 2022-07 09:30: 00 05-02 16:57 :40 No 1000mL at 125 mL/hr, IV Infusion, CONTINUOUS , Starting on Wed05/02/23 at 0430, Until Wed05/02/23 at 1157, Routine [facility] ondansetron (ZOFRAN (PF)) injection 4 mg 2022-07 09:23: 00 Yes 4mg 4 mg, Slow IV Push, Q4HPRN, Starting on Wed05/02/23 at 0423, Until Discontinu ed, Routine, Nausea and Vomiting (N/V) [facility] ondansetron (ZOFRAN (PF)) injection 4 mg 2022-07 09:23: 00 05-03 19:24 :42 No 4mg 4 mg, Slow IV Push, Q4HPRN, Starting on Wed05/02/23 at 0423, Until 05/03/23 at 1424, Routine, Nausea and Vomiting (N/V) [facility] FENTanyl PF (SUBLIMAZE (PF)) injection 12.5 mcg 2022-07 09:22: 41 05-02 16:58 :38 No 12.5ug 12.5 mcg, Slow IV Push, Q4HPRN, Starting on 05/02/23 at 0422, Until 05/02/23 at 1158, Routine, Pain (scale 7-10) [facility] FENTanyl PF (SUBLIMAZE (PF)) injection 12.5 mcg 2022-07 09:22: 41 05-02 16:58 :38 No 12.5ug 12.5 mcg, Slow IV Push, Q4HPRN, Starting on 05/02/23 at 0422, Until 05/02/23 at 1158, Routine, Pain (scale 7-10) [facility] acetaminoph en (TYLENOL) tablet 650 mg 2022-07 09:22: 29 Yes 650mg 650 mg, Oral, Q6HPRN, Starting on 05/02/23 at 0422, Until Discontinu ed, Routine, Pain (scale 1-3) [facility] acetaminoph en (TYLENOL) tablet 650 mg 2022-07 09:22: 29 05-03 19:24 :42 No 650mg 650 mg, Oral, Q6HPRN, Starting on 05/02/23 at 0422, Until 05/03/23 at 1424, Routine, Pain (scale 1-3) [facility] FLUTICASONE PROPIONATE 50 mcg/actuati on nasal spray 2020-07 00:00: 00 Yes [id number] SPRAY 1 SPRAY INTO EACH NOSTRIL EVERY DAY [facility] FLUTICASONE PROPIONATE 50 mcg/actuati on nasal spray 2020-07 00:00: 00 Yes [id number] SPRAY 1 SPRAY INTO EACH NOSTRIL EVERY DAY [facility] FLUTICASONE PROPIONATE 50 mcg/actuati on nasal spray 2020-07 00:00: 00 05-02 00:00 :00 No [id number] SPRAY 1 SPRAY INTO EACH NOSTRIL EVERY DAY [facility] FLUTICASONE PROPIONATE 50 mcg/actuati on nasal spray 2020-07 00:00: 00 05-02 00:00 :00 No [id number] SPRAY 1 SPRAY INTO EACH NOSTRIL EVERY DAY [facility] EPINEPHrine 0.3 mg/0.3 mL injection 2019-07 00:00: 00 Yes [id number] INJECT 0.3 ML BY INTRAMUSCU LAR ROUTE ONCE NOW FOR 1 DOSE. [facility] EPINEPHrine 0.3 mg/0.3 mL injection 2019-07 00:00: 00 Yes [id number] INJECT 0.3 ML BY INTRAMUSCU LAR ROUTE ONCE NOW FOR 1 DOSE. [facility] EPINEPHrine 0.3 mg/0.3 mL injection 2019-07 00:00: 00 Yes [id number] INJECT 0.3 ML BY INTRAMUSCU LAR ROUTE ONCE NOW FOR 1 DOSE. [facility] EPINEPHrine 0.3 mg/0.3 mL injection 2019-07 00:00: 00 Yes [id number] INJECT 0.3 ML BY INTRAMUSCU LAR ROUTE ONCE NOW FOR 1 DOSE. [facility] Immunizations Ordered Immunization Name Filled Immunization Name Date Status Comments Source Meningococcal Polysaccharide (groups A, C, Y and W-135) conjugate vaccine (MCV4P) 2019-02-23 00:00:00 Completed [facility] Meningococcal Polysaccharide (groups A, C, Y and W-135) conjugate vaccine (MCV4P) 2019-02-23 00:00:00 Completed [facility] DTP 2005-01-21 00:00:00 Completed [facility] HIB 3 Dose Schedule 2005-01-21 00:00:00 Completed [facility] HEPATITIS A 2005-01-21 00:00:00 Completed [facility] Pneumococcal 7 Conjugate, PCV7 (Prevnar7) 2005-01-21 00:00:00 Completed [facility] DTP 2005-01-21 00:00:00 Completed [facility] HIB 3 Dose Schedule 2005-01-21 00:00:00 Completed [facility] HEPATITIS A 2005-01-21 00:00:00 Completed [facility] Pneumococcal 7 Conjugate, PCV7 (Prevnar7) 2005-01-21 00:00:00 Completed [facility] MMR 2003-12-25 00:00:00 Completed [facility] Polio (IPV/OPV) 2003-12-25 00:00:00 Completed [facility] Pneumococcal 7 Conjugate, PCV7 (Prevnar7) 2003-12-25 00:00:00 Completed [facility] MMR 2003-12-25 00:00:00 Completed [facility] Polio (IPV/OPV) 2003-12-25 00:00:00 Completed [facility] Pneumococcal 7 Conjugate, PCV7 (Prevnar7) 2003-12-25 00:00:00 Completed [facility] DTP 2003-06-19 00:00:00 Completed [facility] HIB 3 Dose Schedule 2003-06-19 00:00:00 Completed [facility] Hep B, Adol or Pedi Dosage 2003-06-19 00:00:00 Completed [facility] Polio (IPV/OPV) 2003-06-19 00:00:00 Completed [facility] DTP 2003-06-19 00:00:00 Completed [facility] HIB 3 Dose Schedule 2003-06-19 00:00:00 Completed [facility] Hep B, Adol or Pedi Dosage 2003-06-19 00:00:00 Completed [facility] Polio (IPV/OPV) 2003-06-19 00:00:00 Completed [facility] Hep B, Adol or Pedi Dosage 2002 00:00:00 Completed [facility] Hep B, Adol or Pedi Dosage 2002 00:00:00 Completed [facility] DTP Unknown Completed [facility] DTP Unknown Completed [facility] HIB 3 Dose Schedule Unknown Completed [facility] HIB 3 Dose Schedule Unknown Completed [facility] HEPATITIS A Unknown Completed [facility] Hep B, Adol or Pedi Dosage Unknown Completed [facility] Hep B, Adol or Pedi Dosage Unknown Completed [facility] MMR Unknown Completed [facility] Polio (IPV/OPV) Unknown Completed [facility] Polio (IPV/OPV) Unknown Completed [facility] Meningococcal Polysaccharide (groups A, C, Y and W-135) conjugate vaccine (MCV4P) Unknown Completed [facility] Pneumococcal 7 Conjugate, PCV7 (Prevnar7) Unknown Completed [facility] Pneumococcal 7 Conjugate, PCV7 (Prevnar7) Unknown Completed [facility] DTP Unknown Completed [facility] DTP Unknown Completed [facility] HIB 3 Dose Schedule Unknown Completed [facility] HIB 3 Dose Schedule Unknown Completed [facility] HEPATITIS A Unknown Completed [facility] Hep B, Adol or Pedi Dosage Unknown Completed [facility] Hep B, Adol or Pedi Dosage Unknown Completed [facility] MMR Unknown Completed [facility] Polio (IPV/OPV) Unknown Completed [facility] Polio (IPV/OPV) Unknown Completed [facility] Meningococcal Polysaccharide (groups A, C, Y and W-135) conjugate vaccine (MCV4P) Unknown Completed [facility] Pneumococcal 7 Conjugate, PCV7 (Prevnar7) Unknown Completed [facility] Pneumococcal 7 Conjugate, PCV7 (Prevnar7) Unknown Completed [facility] Vital Signs Vital Name Observation Time Observation Value Comments S ource Systolic blood pressure 2023-05-03 12:17:00 101 mm[Hg] [facility] Diastolic blood pressure 2023-05-03 12:17:00 59 mm[Hg] [facility] Heart rate 2023-05-03 12:17:00 68 /min [facility] Body temperature 2023-05-03 12:17:00 36.22 [place] [facility] Respiratory rate 2023-05-03 12:17:00 18 /min [facility] Oxygen saturation in Arterial blood by Pulse oximetry 2023-05-03 12:17:00 96 /min [facility] Body weight 2023-05-03 08:19:00 70.126 kg [facility] BMI 2023-05-03 08:19:00 28.28 kg/m2 [facility] Body height 2023-05-02 08:25:00 157.5 cm [facility] Systolic blood pressure 2023-05-02 18:25:00 97 mm[Hg] [facility] Diastolic blood pressure 2023-05-02 18:25:00 60 mm[Hg] [facility] Heart rate 2023-05-02 18:25:00 59 /min [facility] Body temperature 2023-05-02 18:25:00 36.11 [place] [facility] Respiratory rate 2023-05-02 18:25:00 18 /min [facility] Oxygen saturation in Arterial blood by Pulse oximetry 2023-05-02 18:25:00 100 /min [facility] Body height 2023-05-02 08:25:00 157.5 cm [facility] Body weight 2023-05-02 08:25:00 69.037 kg [facility] BMI 2023-05-02 08:25:00 28.28 kg/m2 [facility] Systolic blood pressure 2022-10-17 20:18:00 99 mm[Hg] [facility] Diastolic blood pressure 2022-10-17 20:18:00 63 mm[Hg] [facility] Body temperature 2022-10-17 20:18:00 36.78 [place] [facility] Respiratory rate 2022-10-17 20:18:00 16 /min [facility] Heart rate 2022-10-17 19:56:00 92 /min [facility] Body height 2022-10-17 19:56:00 157.5 cm [facility] Body weight 2022-10-17 19:56:00 71.668 kg [facility] BMI 2022-10-17 19:56:00 28.90 kg/m2 [facility] Oxygen saturation in Arterial blood by Pulse oximetry 2022-10-17 19:56:00 99 /min [facility] Procedures Procedure Date / Time Performed Performing Clinician Source CBC WITH DIFF 2023-05-03 11:31:00 Karely [place] [facility] CBC WITH DIFF 2023-05-03 11:31:00 Karely [place] [facility] LAPAROSCOPIC APPENDECTOMY 2023-05-02 15:50:00 Miles, [facility] LAPAROSCOPIC APPENDECTOMY 2023-05-02 15:50:00 Miles, [facility] POCT TEST 2023-05-02 15:31:00 Miles, [facility] POCT TEST 2023-05-02 15:31:00 Miles, [facility] MAGNESIUM 2023-05-02 10:15:00 Phill Roman [facility] HEPATIC FUNCTION PANEL ([id number]) (ALB,T.PRO,BILI T,BU/BC,ALT,AST,ALK PHOS) 2023-05-02 10:15:00 Phill Roman [facility] BASIC METABOLIC PANEL (NA, K, CL, CO2, GLUCOSE, BUN, CREATININE, CA) 2023-05-02 10:15:00 Phill Roman [facility] CBC WITH DIFF 2023-05-02 10:15:00 [facility] 2023-05-02 10:15:00 Phill Roman [facility] HEPATIC FUNCTION PANEL ([id number]) (ALB,T.PRO,BILI T,BU/BC,ALT,AST,ALK PHOS) 2023-05-02 10:15:00 Phill Roman [facility] BASIC METABOLIC PANEL (NA, K, CL, CO2, GLUCOSE, BUN, CREATININE, CA) 2023-05-02 10:15:00 Phill Roman [facility] CBC WITH DIFF 2023-05-02 10:15:00 Phill Roman Un [facility] [id number] 2022-10-31 00:00:00 MAXBA [facility] [id number] 2022-10-30 00:00:00 MAXBA [facility] [id number] 2021-03-26 00:00:00 MAXBA [facility] [id number] 2021-03-26 00:00:00 [facility] Encounters Start Date/Time End Date/Time Encounter Type Admission Type Attending Clinicians Care Facility Care Department Encounter ID Source 2022-10-17 17:56:29 Outpatient X [facility] [id number] [facility] 2021-05-19 04:10:53 Outpatient X [facility] [id number] [facility] 2021-05-19 04:10:48 Emergency [facility] [id number] [facility] 2021-05-18 12:59:52 Emergency [facility] [id number] [facility] 2021-05-18 03:01:47 Emergency [facility] [id number] [facility] 2020-11-23 00:57:29 Inpatient Brittnee Ramirez [facility] [id number] [facility] 2020-10-05 01:43:54 Inpatient [facility] [id number] [facility] 2020-08-22 20:18:00 Inpatient [facility] KAELA [id number] [facility] 2020-02-15 22:49:00 Inpatient [facility] KAELA [id number] [facility] 2023-08-23 13:00:00 2023-08-23 13:00:00 Outpatient MADHAVI MCNAIR [facility] [id number] [facility] 2023-05-24 13:00:00 2023-05-24 13:00:00 Outpatient MERT [facility]SE [facility] [id number] [facility] 2023-05-02 03:19:00 2023-05-03 12:20:00 Outpatient U PHILL ROMAN [facility] [id number] [facility] 2023-05-02 03:19:00 2023-05-03 12:20:00 Hospital Encounter [facility] [facility] 1.2.840.114 350.1.13.10 4.2.7.2.686 [id number] [facility] 2023-05-02 11:24:00 2023-05-02 13:33:00 Surgery Mert Miles [facility] [place] 1..840.114 350.1.13.10 4.2.7.2.686 [id number] [facility] 2022-10-30 19:17:00 2022-11-02 18:53:00 Inpatient EL Luis Burciaga HCACL OBPP [id number] [facility] 2022-10-17 14:59:00 2022-10-17 17:00:00 Outpatient X SUZY URIOSTEGUI [facility] LAUREN [id number] [facility] 2022-10-17 14:59:00 2022-10-17 17:00:00 Emergency Ademily [facility] 1..840.114 350.1.13.10 4.2.7.2.686 [id number] [facility] 2022-09-26 22:39:00 2022-09-27 17:00:00 Inpatient EM Luis Burciaga HCACL OBANTE [id number] [facility] 2022-09-07 23:59:00 2022-09-14 10:45:00 Inpatient EM Luis Burciaga HCACL OBANTE [id number] [facility] 2022-08-03 15:04:00 2022-08-03 16:59:00 Emergency EM Mojgan Effie rogers HCACL OLGA [id number] [facility] 2022-03-20 14:10:00 2022-03-20 14:10:00 Outpatient ANTONIA CAPPS [facility] [id number] [facility] 2022-03-20 00:00:00 2022-03-20 00:00:00 Telephone [facility] 1..840.114 350.1.13.10 4.2.7.2.686 [id number] [facility] 2022-03-16 14:10:00 2022-03-16 14:10:00 Outpatient R ANTONIA PIKE [facility] [id number] [facility] 2022-03-13 13:30:00 2022-03-13 13:30:00 Outpatient R PIKEANTONIA ASHER [facility] [id number] [facility] 2022-03-13 11:10:00 2022-03-13 11:10:00 Outpatient R PIKEANTONIA ASHER [facility] [id number] [facility] 2022-03-06 15:06:00 2022-03-06 16:12:00 Emergency EM Romeo Chavezo HCACL AERS [id number] [facility] 2022-03-04 00:00:00 2022-03-04 00:00:00 Telephone Antonia Pike [facility] 1..840.114 350.1.13.10 4.2.7.2.686 [id number] [facility] 2022-03-03 00:00:00 2022-03-03 00:00:00 Telephone Antonia Pike [facility] 1..840.114 350.1.13.10 4.2.7.2.686 [id number] [facility] 2022-03-02 17:43:24 2022-03-02 23:59:00 Outpatient R SHAHZAD ANTONIA [facility] [id number] [facility] 2022-03-02 17:43:24 2022-03-02 23:59:00 Outpatient R ANTONIA PIKE [facility] [id number] [facility] 2022-03-02 17:30:00 2022-03-02 23:59:00 Hospital Encounter Antonia Pike [facility] 1.84.114 350.1.13.10 4.2.7.2.686 [id number] [facility] 2022-02-26 14:50:00 2022-02-26 15:10:00 Nurse Visit Nurse, Frederick Miller [facility] 1..114 350.1.13.10 4.2.7.2.686 [id number] [facility] 2022-02-26 14:50:00 2022-02-26 14:50:00 Outpatient FREDERICK CORRAL [facility] [id number] [facility] 2022-02-25 14:45:00 2022-02-25 23:59:00 Hospital Encounter Antonia Pike [facility] 1.84.114 350.1.13.10 4.2.7.2.686 [id number] [facility] 2022-02-25 14:45:00 2022-02-25 23:59:00 Outpatient R SHAHZAD [facility] [id number] [facility] 2022-02-25 13:50:00 2022-02-25 15:29:57 Outpatient R ANTONIA PIKE [facility] [id number] [facility] 2022-02-25 13:50:00 2022-02-25 15:29:57 Office Visit Antonia Pike [facility] 1.114 350.1.13.10 4.2.7.2.686 [id number] [facility] 2022-02-23 15:50:00 2022-02-23 15:50:00 Outpatient R ANTONIA PIKE [facility] [id number] [facility] 2022-02-12 21:31:00 2022-02-12 22:34:00 Emergency X AR RICHARDSON [facility] [id number] [facility] 2022-02-12 21:31:00 2022-02-12 22:34:00 Emergency Ar Richardson [facility] 1.2.840.114 350.1.13.10 4.2.7.2.686 [id number] [facility] 2021-11-11 00:16:00 2021-11-11 00:55:00 Emergency EM Kishor Bishop HCACL AERS [id number] [facility] 2021-11-04 15:30:00 2021-11-04 15:30:00 Outpatient ELINA FORMAN [facility] [id number] [facility] 2021-08-08 22:06:00 2021-08-08 22:30:00 Emergency EM Darshancandynatanael Samchiara HCACL AERS [id number] [facility] 2021-06-13 00:00:00 2021-06-13 00:00:00 Refill Madhavi Roman [facility] 1.2.840.114 350.1.13.10 4.2.7.2.686 [id number] [facility] 2021-05-12 13:41:54 2021-05-12 14:13:40 Office Visit Madhavi Roman [facility] 1.2.840.114 350.1.13.10 4.2.7.2.686 [id number] [facility] 2021-05-12 13:30:00 2021-05-12 13:30:00 Outpatient MADHAVI MCNAIR [facility] [id number] [facility] 2021-03-25 14:56:00 2021-03-28 15:32:00 Inpatient Luis Diaz HCACL OBPP [id number] [facility] 2021-03-12 21:07:00 2021-03-13 01:05:00 Emergency EM Effie Solitario HCACL OLGA [id number] [facility] 2021-03-01 05:33:00 2021-03-01 09:00:00 Emergency EM Luis Burciaga HCACL OLGA [id number] [facility] 2021-02-17 15:17:00 2021-02-17 16:47:00 Emergency EM Effie Solitario HCACL OLGA [id number] [facility] 2021-02-12 19:14:00 2021-02-12 22:29:00 Emergency EM Effie Solitario HCACL OLGA [id number] [facility] 2021-01-29 02:30:00 2021-01-29 03:50:00 Emergency EM Dottie Chavez HCACL OLGA [id number] [facility] 2021-01-13 01:18:00 2021-01-13 02:30:00 Emergency Cacdorothy, Nathalia Khan [facility] 1.840.114 350.1.13.10 4.2.7.2.686 [id number] [facility] 2021-01-13 01:18:00 2021-01-13 02:30:00 Emergency CacNathalia de la cruz [facility] 1.840.114 350.1.13.10 4.2.7.2.686 [id number] 2021-01-11 17:51:24 2021-01-11 18:25:45 Urgent Care Aneta Aguayo Attending [facility] 1.840.114 350.1.13.10 4.2.7.2.686 [id number] [facility] 2021-01-11 17:51:24 2021-01-11 18:25:45 Urgent Care Aneta Aguayo [facility] 1.2.840.114 350.1.13.10 4.2.7.2.686 [id number] 2021-01-11 18:00:00 2021-01-11 18:00:00 Outpatient R UNKNOWN, ATTENDING [facility] [id number] [facility] 2020-12-25 15:08:00 2020-12-25 18:26:00 Emergency EM Pearl Chavez HCACL OLGA [id number] [facility] 2020-11-23 00:02:00 2020-11-23 02:58:00 Emergency EM Brittnee Ramirez [facility] OLGA [id number] [facility] 2020-11-01 00:00:00 2020-11-01 00:00:00 Letter (Out) [facility] 1.2.840.114 350.1.13.10 4.2.7.2.686 [id number] [facility] 2020-11-01 00:00:00 2020-11-01 00:00:00 Letter (Out) [facility] 1.2.840.114 350.1.13.10 4.2.7.2.686 [id number] 2020-10-30 22:11:00 2020-10-31 00:46:00 Emergency RandallLily sanders [facility] 1.2.840.114 350.1.13.10 4.2.7.2.686 [id number] [facility] 2020-10-30 22:11:00 2020-10-31 00:46:00 Emergency Lily Last [facility] 1.2.840.114 350.1.13.10 4.2.7.2.686 [id number] 2020-10-26 18:33:25 2020-10-26 19:03:11 Urgent Care Grow, Aneta Vilma Unknown, Attending [facility] 1.2.840.114 350.1.13.10 4.2.7.2.686 [id number] [facility] 2020-10-26 18:33:25 2020-10-26 19:03:11 Urgent Care Aneta Aguayo [facility] 1.2.840.114 350.1.13.10 4.2.7.2.686 [id number] 2020-10-26 19:00:00 2020-10-26 19:00:00 Outpatient R UNKNOWN, ATTENDING [facility] [id number] [facility] 2020-09-18 23:47:00 2020-09-19 01:47:00 [facility] 1.2.840.114 350.1.13.10 4.2.7.2.686 [id number] [facility] 2020-09-18 23:47:00 2020-09-19 01:47:00 [facility] 1.2.840.114 350.1.13.10 4.2.7.2.686 [id number] 2020-09-18 00:00:00 2020-09-18 00:00:00 Orders Only Doctor Unassigned, [place] [facility] 1.2.840.114 350.1.13.10 4.2.7.2.686 [id number] [facility] 2020-09-18 00:00:00 2020-09-18 00:00:00 Orders Only Doctor Unassigned, [place] [facility] 1.2.840.114 350.1.13.10 4.2.7.2.686 [id number] 2020-08-22 15:52:31 2020-08-22 16:12:31 Office Visit Madhavi Roman [facility] 1.2840.114 350.1.13.10 4.2.7.2.686 [id number] [facility] 2020-08-22 15:52:31 2020-08-22 16:12:31 Office Visit Madhavi Roman [facility] 1.2840.114 350.1.13.10 4.2.7.2.686 [id number] 2020-08-22 16:00:00 2020-08-22 16:00:00 Outpatient MADHAVI MCNAIR [facility] [id number] [facility] 2020-08-22 13:40:00 2020-08-22 13:40:00 Outpatient MADHAVI MCNAIR [facility] [id number] [facility] 2020-08-13 00:00:00 2020-08-13 00:00:00 Telephone DestinyLiberty col[facility] 1.20.114 350.1.13.10 4.2.7.2.686 [id number] [facility] 2020-08-09 00:00:00 2020-08-09 00:00:00 Telephone DestinyLiberty colind[facility] 1.2840.114 350.1.13.10 4.2.7.2.686 [id number] [facility] 2020-08-09 00:00:00 2020-08-09 00:00:00 Telephone DestinyLiberty [facility] 1.2840.114 350.1.13.10 4.2.7.2.686 [id number] [facility] 2020-08-08 14:46:51 2020-08-08 16:51:17 Office Visit DestinyLiberty [facility] 1.2.840.114 350.1.13.10 4.2.7.2.686 [id number] [facility] 2020-08-08 15:00:00 2020-08-08 15:00:00 Outpatient R LIBERTY CAMP [facility] [id number] [facility] 2020-07-03 00:00:00 2020-07-03 00:00:00 Orders Only Doctor Unassigned, [place] [facility] 1.840.114 350.1.13.10 4.2.7.2.686 [id number] [facility] 2020-06-17 13:35:31 2020-06-17 14:15:17 Office Visit Antonia Swain [facility] 1..114 350.1.13.10 4.2.7.2.686 [id number] [facility] 2020-06-17 13:40:00 2020-06-17 13:40:00 Outpatient R ELINA ROME [facility] [id number] [facility] 2020-05-18 00:00:00 2020-05-18 00:00:00 Kassidy Morris [facility] 1.0.114 350.1.13.10 4.2.7.2.686 [id number] [facility] 2020-05-14 00:00:00 2020-05-14 00:00:00 Telephone Elina Rome [facility] 1.840.114 350.1.13.10 4.2.7.2.686 [id number] [facility] 2020-05-06 00:00:00 2020-05-06 00:00:00 Telephone Elina Rome [facility] 1.840.114 350.1.13.10 4.2.7.2.686 [id number] [facility] 2020-04-26 15:36:43 2020-04-26 15:56:43 Office Visit Kassidy Arenas [facility] 1.114 350.1.13.10 4.2.7.2.686 [id number] [facility] 2020-04-26 15:40:00 2020-04-26 15:40:00 Outpatient R KASSIDY ARENAS [facility] [id number] [facility] 2020-04-15 00:00:00 2020-04-15 00:00:00 Refill [place] [facility] 1.114 350.1.13.10 4.2.7.2.686 [id number] [facility] 2020-01-03 14:40:00 2020-01-03 14:40:00 Outpatient REJI EVANS [facility] [id number] [facility] 2019-10-27 00:00:00 2019-10-27 00:00:00 Telephone Aiden Cooney [facility] 1.114 350.1.13.10 4.2.7.2.686 [id number] [facility] 2019-10-18 23:49:28 2019-10-19 02:20:00 Emergency X SOSA ADAMES [facility] ERT [id number] [facility] 2019-10-18 23:49:28 2019-10-19 02:20:00 Emergency Sosa Adames [facility] 1.114 350.1.13.10 4.2.7.2.686 [id number] [facility] 2019-10-18 00:00:00 2019-10-18 00:00:00 Nurse Triage Sandra Henderson [facility] 1.2.840.114 350.1.13.10 4.2.7.2.686 [id number] [facility] 2019-10-09 00:00:00 2019-10-09 00:00:00 Telephone Aiden Cooney [facility] 1.2.840.114 350.1.13.10 4.2.7.2.686 [id number] [facility] 2019-09-21 13:27:07 2019-09-21 17:09:32 Office Visit [place] [facility] 1.2.840.114 350.1.13.10 4.2.7.2.686 [id number] [facility] 2019-09-21 13:40:00 2019-09-21 13:40:00 Outpatient R LIBERTY CAMP [facility] [id number] [facility] 2019-08-30 15:01:37 2019-08-30 15:11:37 Office Visit Antonia Pike [facility] 1.2.840.114 350.1.13.10 4.2.7.2.686 [id number] [facility] 2019-08-22 15:33:37 2019-08-22 15:43:37 Office Visit Aiden Cooney [facility] 1.2.840.114 350.1.13.10 4.2.7.2.686 [id number] [facility] 2019-08-21 09:14:31 2019-08-21 10:35:00 Emergency Ashley Avendano [facility] 1.2.840.114 350.1.13.10 4.2.7.2.686 [id number] [facility] 2019-08-10 11:01:47 2019-08-10 11:21:47 Nurse Visit Nurse, Antonia Gonzales [facility] 1.2.840.114 350.1.13.10 4.2.7.2.686 [id number] [facility] 2019-08-09 09:22:22 2019-08-09 12:41:52 Office Visit Shahzad Antonia Armijo [facility] 1.2.840.114 350.1.13.10 4.2.7.2.686 [id number] [facility] 2019-08-09 00:00:00 2019-08-09 00:00:00 Orders Only Antonia Pike [facility] 1.2.840.114 350.1.13.10 4.2.7.2.686 [id number] [facility] 2019-07-28 00:00:00 2019-07-28 00:00:00 Orders Only Doctor Unassigned, [place] [facility] 1.2.840.114 350.1.13.10 4.2.7.2.686 [id number] [facility] 2019-03-30 12:55:51 2019-03-30 13:15:51 Office Visit Kassidy Arenas [facility] 1.2.840.114 350.1.13.10 4.2.7.2.686 [id number] [facility] 2019-03-29 00:00:00 2019-03-29 00:00:00 Telephone Elina Rome [facility] 1.2.840.114 350.1.13.10 4.2.7.2.686 [id number] [facility] 2019-03-27 09:41:28 2019-03-27 09:51:28 Office Visit Aiden Cooney [facility] 1.2.840.114 350.1.13.10 4.2.7.2.686 [id number] [facility] 2019-03-22 15:41:22 2019-03-22 23:59:00 Hospital Encounter Aiden Cooney [facility] 1.2.840.114 350.1.13.10 4.2.7.2.686 [id number] [facility] 2019-03-21 15:31:39 2019-03-22 09:26:38 Office Visit Mike Heard Aiden Cooney [facility] 1.2.840.114 350.1.13.10 4.2.7.2.686 [id number] [facility] 2019-03-08 09:03:07 2019-03-08 09:13:07 Office Visit Aiden Cooney [facility] 1.2.840.114 350.1.13.10 4.2.7.2.686 [id number] [facility] 2019-03-03 10:38:58 2019-03-03 11:09:50 Office Visit Aiden Cooney [facility] 1.2.840.114 350.1.13.10 4.2.7.2.686 [id number] [facility] 2019-02-10 15:44:39 2019-02-10 23:59:00 Hospital Encounter Sujata Carter [facility] 1.2.840.114 350.1.13.10 4.2.7.2.686 [id number] [facility] 2019-02-10 08:00:00 2019-02-10 15:43:00 Hospital Encounter Sujata Carter [facility] 1.2.840.114 350.1.13.10 4.2.7.2.686 [id number] [facility] Results Test Description Test Time Test Comments Results Result Co mments Source General acute hospital WITH [id number] 11:43:20* Test Item Value Reference Range Interpretation Comme nts WBC (test code = 6690-2) 9.23 See_Comment [Automated messa ge] The system which generated this result transmitted reference range: 4.30 - 11.10 10*3/?L. The reference range was not used to interpret this result as normal/abnormal. RBC (test code = 789-8) 3.85 See_Comment L [Automated messa ge] The system which generated this result transmitted reference range: 3.93 - 5.25 10*6/?L. The reference range was not used to interpret this result as normal/abnormal. HGB (test code = 718-7) 10.8 g/dL 11.6-15.0 L HCT (test code = 4544-3) 33.8 % 35.7-45.2 L MCV (test code = 787-2) 87.8 fL 80.6-95.5 MCH (test code = 785-6) 28.1 pg 25.9-32.8 MCHC (test code = 786-4) 32.0 g/dL 31.6-35.1 RDW-SD (test code = 81368-7) 47.8 fL 39.0-49.9 RDW-CV (test code = 788-0) 14.8 % 12.0-15.5 PLT (test code = 777-3) 282 See_Comment [Automated messa ge] The system which generated this result transmitted reference range: 166 - 358 10*3/?L. The reference range was not used to interpret this result as normal/abnormal. MPV (test code = 34343-5) 10.6 fL 9.5-12.9 NRBC/100 WBC (test code = 9757935840) 0.0 See_Comment [Automated me ssage] The system which generated this result transmitted reference range: 0.0 - 10.0 /100 WBCs. The reference range was not used to interpret this result as normal/abnormal. NRBC x10^3 (test code = 1389107368) See_Comment [Automated messa ge] The system which generated this result transmitted reference range: 10*3/?L. The reference range was not used to interpret this result as normal/abnormal. GRAN MAT (NEUT) % (test code = 770-8) 51.7 % IMM GRAN % (test code = 8455698970) 0.20 % LYMPH % (test code = 736-9) 40.7 % MONO % (test code = 5905-5) 6.6 % EOS % (test code = 713-8) 0.4 % BASO % (test code = 706-2) 0.4 % GRAN MAT x10^3(ANC) (test code = 0687165594) 4.76 10*3/uL 1.88-7.09 IMM GRAN x10^3 (test code = 2019634258) 0.00-0.06 LYMPH x10^3 (test code = 731-0) 3.76 10*3/uL 1.32-3.29 H MONO x10^3 (test code = 742-7) 0.61 10*3/uL 0.33-0.92 EOS x10^3 (test code = 711-2) 0.04 10*3/uL 0.03-0.39 BASO x10^3 (test code = 704-7) 0.04 10*3/uL 0.01-0.07 Lab Interpretation (test code = 47361-6) Abnormal [facility] [id number] 15:31:00* Test Item Value Reference Range Interpretation Comme nts POCT PREG (test code = 1605) Negative On board controls acceptable with C Line (test code = 3574) Yes POCT PREG LOT # (test code = 3575) POCT PREG TEST DATE ( test code = 3576) [facility] [id number] 15:31:00* Test Item Value Reference Range Interpretation Comme nts POCT PREG (test code = 1605) Negative On board controls acceptable with C Line (test code = 3574) Yes POCT PREG LOT # (test code = 3575) POCT PREG TEST DATE ( test code = 3576) [facility] [id number] 11:21:25* Test Item Value Reference Range Interpretation Comme nts MAGNESIUM (test code = 6684626589) 2.2 mg/dL 1.7-2.4 Lab Interpretation (test cod e = 03672-7) Normal [facility] [id number] 11:21:25* Test Item Value Reference Range Interpretation Comme nts MAGNESIUM (test code = 3117384093) 2.2 mg/dL 1.7-2.4 Lab Interpretation (test cod e = 74050-4) Normal [facility] METABOLIC PANEL (NA, K, CL, CO2, GLUCOSE, BUN, CREATININE, CA)2023-05-02 11:21:05* Test Item Value Reference Range Interpretation Comme nts NA (test code = 0376385007) 138 mmol/L 135-145 K (test code = 4717425446) 3.8 mmol/L 3.5-5.0 CL (test code = 4346326124) 102 mmol/L 98-108 CO2 TOTAL (test code = 9360789846) 22 mmol/L 23-31 L AGAP (test code = 7698589787) 14 2-16 BUN (test code = 0455426603) 21 mg/dL 7-23 GLUCOSE (test code = 2972748907) 88 mg/dL 70-110 CREATININE (test code = 7804892522) 0.65 mg/dL 0.50-1.04 CALCIUM (test code = 9122234584) 9.3 mg/dL 8.6-10.6 eGFR (test code = 9562592067) 116.2 mL/min/1.73m2 RADHA (test code = RADHA) Association of Glomerular Filtration Rate (GFR) and Staging of Kidney Disease* + --+ --+ ------+| GFR (mL/min/1.73 m2) ?| With Kidney Damage ?| ?Without Kidney Damage+ --------+ --------+ +| ?>90 ?| ?Stage one ?| ? Normal ?+ ---+ ---+ -------+| ?60-89 ?| ?Stage two ?| ? Decreased GFR ? + --+ --+ ------+| ?30-59 ?| ?Stage three ?| ? Stage three ? + --+ --+ ------+| ?15-29 ?| ?Stage four ? | ? Stage four ?+ ---+ ---+ -------+| ?<15 (or dialysis) ? ?| ?Stage five ? | ? Stage five ?+ ---+ ---+ -------+ *Each stage assumes the associated GFR level has been in effect for at least three months. ?Stages 1 to 5, with or without kidney disease, indicate chronic kidney disease. Notes: Determination of stages one and two (with eGFR >59mL/min/1.73 m2) requires estimation of kidney damage for at least three months as defined by structural or functional abnormalities of the kidney, manifested by either:Pathological abnormalities or Markers of kidney damage (including abnormalities in the composition of the blood or urine or abnormalities in imaging tests). Lab Interpretation (test code = 26594-6) Abnormal [facility] (46389[facility] (ALB,T.PRO,BILI T,BU/BC,ALT,AST,ALK PHOS)2023-05-02 11:21:05* Test Item Value Reference Range Interpretation Comme nts TOTAL BILI (test code = 1745071348) 0.3 mg/dL 0.1-1.1 BILI UNCON (test code = 4483295762) 0.2 mg/dL 0.1-1.1 BILI CONJ (test code = 3331457526) 0.0 mg/dL 0.0-0.3 T PROTEIN (test code = 2382415854) 7.6 g/dL 6.3-8.2 ALBUMIN (test code = 0216672134) 4.4 g/dL 3.5-5.0 ALK PHOS (test code = 1048767434) 72 U/L 34-122 ALTv (test code = 1742-6) 13 U/L 5-35 AST(SGOT) (test code = 3206957908) 17 U/L 13-40 Lab Interpretation (test cod e = 57445-5) [facility] (NA, K, CL, CO2, GLUCOSE, BUN, CREATININE, CA)2023-05-02 11:21:05* Test Item Value Reference Range Interpretation Comme nts NA (test code = 1696793507) 138 mmol/L 135-145 K (test code = 7924239698) 3.8 mmol/L 3.5-5.0 CL (test code = 8578426673) 102 mmol/L 98-108 CO2 TOTAL (test code = 6234091031) 22 mmol/L 23-31 L AGAP (test code = 3616595779) 14 2-16 BUN (test code = 2531555138) 21 mg/dL 7-23 GLUCOSE (test code = 8378632979) 88 mg/dL 70-110 CREATININE (test code = 7251706448) 0.65 mg/dL 0.50-1.04 CALCIUM (test code = 8928128761) 9.3 mg/dL 8.6-10.6 eGFR (test code = 0378440056) 116.2 mL/min/1.73m2 RADHA (test code = RADHA) Association of Glomerular Filtration Rate (GFR) and Staging of Kidney Disease* + --+ --+ ------+| GFR (mL/min/1.73 m2) ?| With Kidney Damage ?| ?Without Kidney Damage+ --------+ --------+ +| ?>90 ?| ?Stage one ?| ? Normal ?+ ---+ ---+ -------+| ?60-89 ?| ?Stage two ?| ? Decreased GFR ? + --+ --+ ------+| ?30-59 ?| ?Stage three ?| ? Stage three ? + --+ --+ ------+| ?15-29 ?| ?Stage four ? | ? Stage four ?+ ---+ ---+ -------+| ?<15 (or dialysis) ? ?| ?Stage five ? | ? Stage five ?+ ---+ ---+ -------+ *Each stage assumes the associated GFR level has been in effect for at least three months. ?Stages 1 to 5, with or without kidney disease, indicate chronic kidney disease. Notes: Determination of stages one and two (with eGFR >59mL/min/1.73 m2) requires estimation of kidney damage for at least three months as defined by structural or functional abnormalities of the kidney, manifested by either:Pathological abnormalities or Markers of kidney damage (including abnormalities in the composition of the blood or urine or abnormalities in imaging tests). Lab Interpretation (test code = 64226-1) [facility] (ALB,T.PRO,BILI T,BU/BC,ALT,AST,ALK PHOS)2023-05-02 11:21:05* Test Item Value Reference Range Interpretation Comme nts TOTAL BILI (test code = 4033060132) 0.3 mg/dL 0.1-1.1 BILI UNCON (test code = 8404852789) 0.2 mg/dL 0.1-1.1 BILI CONJ (test code = 9299405726) 0.0 mg/dL 0.0-0.3 T PROTEIN (test code = 8299960284) 7.6 g/dL 6.3-8.2 ALBUMIN (test code = 2178197099) 4.4 g/dL 3.5-5.0 ALK PHOS (test code = 4970906897) 72 U/L 34-122 ALTv (test code = 1742-6) 13 U/L 5-35 AST(SGOT) (test code = 0072878044) 17 U/L 13-40 Lab Interpretation (test cod e = 20468-4) Normal [facility] with Iihreowudvlh7046-01-86 10:46:23* Test Item Value Reference Range Interpretation Comme nts WBC (test code = 6690-2) 7.54 See_Comment [Automated [employer]] The system which generated this result transmitted reference range: 4.30 - 11.10 10*3/?L. The reference range was not used to interpret this result as normal/abnormal. RBC (test code = 789-8) 4.05 See_Comment [Automated [employer]] The system which generated this result transmitted reference range: 3.93 - 5.25 10*6/?L. The reference range was not used to interpret this result as normal/abnormal. HGB (test code = 718-7) 11.2 g/dL 11.6-15.0 L HCT (test code = 4544-3) 34.7 % 35.7-45.2 L MCV (test code = 787-2) 85.7 fL 80.6-95.5 MCH (test code = 785-6) 27.7 pg 25.9-32.8 MCHC (test code = 786-4) 32.3 g/dL 31.6-35.1 RDW-SD (test code = 95168-7) 46.6 fL 39.0-49.9 RDW-CV (test code = 788-0) 14.7 % 12.0-15.5 PLT (test code = 777-3) 283 See_Comment [Automated messa ge] The system which generated this result transmitted reference range: 166 - 358 10*3/?L. The reference range was not used to interpret this result as normal/abnormal. MPV (test code = 60037-1) 10.5 fL 9.5-12.9 NRBC/100 WBC (test code = 2735996672) 0.0 See_Comment [Automated me ssage] The system which generated this result transmitted reference range: 0.0 - 10.0 /100 WBCs. The reference range was not used to interpret this result as normal/abnormal. NRBC x10^3 (test code = 3705287300) See_Comment [Automated messa ge] The system which generated this result transmitted reference range: 10*3/?L. The reference range was not used to interpret this result as normal/abnormal. GRAN MAT (NEUT) % (test code = 770-8) 40.7 % IMM GRAN % (test code = 9570487921) 0.10 % LYMPH % (test code = 736-9) 48.4 % MONO % (test code = 5905-5) 8.8 % EOS % (test code = 713-8) 1.3 % BASO % (test code = 706-2) 0.7 % GRAN MAT x10^3(ANC) (test code = 9449732804) 3.07 10*3/uL 1.88-7.09 IMM GRAN x10^3 (test code = 4922445059) 0.00-0.06 LYMPH x10^3 (test code = 731-0) 3.65 10*3/uL 1.32-3.29 H MONO x10^3 (test code = 742-7) 0.66 10*3/uL 0.33-0.92 EOS x10^3 (test code = 711-2) 0.10 10*3/uL 0.03-0.39 BASO x10^3 (test code = 704-7) 0.05 10*3/uL 0.01-0.07 Lab Interpretation (test code = 00640-1) Abnormal [facility] acute hospital with Tjivabmshvfc7932-69-06 10:46:23* Test Item Value Reference Range Interpretation Comme nts WBC (test code = 6690-2) 7.54 See_Comment [Automated messa ge] The system which generated this result transmitted reference range: 4.30 - 11.10 10*3/?L. The reference range was not used to interpret this result as normal/abnormal. RBC (test code = 789-8) 4.05 See_Comment [Automated messa ge] The system which generated this result transmitted reference range: 3.93 - 5.25 10*6/?L. The reference range was not used to interpret this result as normal/abnormal. HGB (test code = 718-7) 11.2 g/dL 11.6-15.0 L HCT (test code = 4544-3) 34.7 % 35.7-45.2 L MCV (test code = 787-2) 85.7 fL 80.6-95.5 MCH (test code = 785-6) 27.7 pg 25.9-32.8 MCHC (test code = 786-4) 32.3 g/dL 31.6-35.1 RDW-SD (test code = 61709-3) 46.6 fL 39.0-49.9 RDW-CV (test code = 788-0) 14.7 % 12.0-15.5 PLT (test code = 777-3) 283 See_Comment [Automated messa ge] The system which generated this result transmitted reference range: 166 - 358 10*3/?L. The reference range was not used to interpret this result as normal/abnormal. MPV (test code = 01684-1) 10.5 fL 9.5-12.9 NRBC/100 WBC (test code = 8433311235) 0.0 See_Comment [Automated me ssage] The system which generated this result transmitted reference range: 0.0 - 10.0 /100 WBCs. The reference range was not used to interpret this result as normal/abnormal. NRBC x10^3 (test code = 0341659213) See_Comment [Automated messa ge] The system which generated this result transmitted reference range: 10*3/?L. The reference range was not used to interpret this result as normal/abnormal. GRAN MAT (NEUT) % (test code = 770-8) 40.7 % IMM GRAN % (test code = 6814372805) 0.10 % LYMPH % (test code = 736-9) 48.4 % MONO % (test code = 5905-5) 8.8 % EOS % (test code = 713-8) 1.3 % BASO % (test code = 706-2) 0.7 % GRAN MAT x10^3(ANC) (test code = 6148778815) 3.07 10*3/uL 1.88-7.09 IMM GRAN x10^3 (test code = 9557599989) 0.00-0.06 LYMPH x10^3 (test code = 731-0) 3.65 10*3/uL 1.32-3.29 H MONO x10^3 (test code = 742-7) 0.66 10*3/uL 0.33-0.92 EOS x10^3 (test code = 711-2) 0.10 10*3/uL 0.03-0.39 BASO x10^3 (test code = 704-7) 0.05 10*3/uL 0.01-0.07 Lab Interpretation (test code = 36593-5) [facility]normal [facility] 14:08:00* Test Item Value Reference Range Interpretation Comme nts SURGICAL (test code = SR) R UN DATE: 11/03/22 [place] - LAB PAGE 1 RUN TIME: 1409 Specimen Inquiry RUN USER: INTERFACE P ATIENT: LUIS EDMONDS LOC: JORDI U #: [id number] AGE/SX: 21/F ROOM: [facility] RE10/30/22REG DR: Luis Burciaga MD : 02 BED: 1 DIS: 11/02/22 STATUS: DIS IN TLOC: SPEC #: [id number] RECD: 11/02/22 STATUS: GLENN RE #: [id number] SLOAN: 10/31/22- SUBM DR: Luis Burciaga MD ENTERED: 11/02/22 SP TYPE: SURGICAL OTHR DR: ORDERED: [id number], ANATOMIC SPEC PROCEDURES: 56429 (11/02/22) TISSUES: A. PLACENTA, THIRD TRIMESTER (28 + WEEKS) CLINICAL HISTORY SAME, DELIVERED FINAL DIAGNOSIS Placenta: Third trimester placenta with acute chorionitis, deciduitis; 713 g (expected gfba853 g); trivascular umbilical cord without significant inflammation.. GROSS DESCRIPTION Received in formalin and designated placenta is 1 placenta measuring 19.5 x 18 x 3 cm withattached umbilical cord measuring 34 cm in length, 1.9 cm in diameter, arising 4.4 cm apartmargin. Sections are submitted as a A-D. The maternal surface appears intact withattached blood clots. The placenta weighs 713 g. Technical component performed at [facility],[address] [place] [address], [place] [address] Unless gross only, the diagnosis is based upon microscopic examination.Immunohistochemistr y: This test was developed and its performance characteristicsdetermined by this laboratory. It has not been approved nor does it need approvalby the [place] FDA. Appropriate positive and negative controls are reviewed and judgedto be acceptable. This laboratory is certified under the Clinical Laboratory ImprovementAmendments (CLIA-88) as qualified to perform high complexity clinical laboratory testing. CLINICAL INFORMATION 37.1 IUP Signed SIGNATURE ON FILE Yon Emmanuel 11/03/22 1408 END OF REPORT CBC W/AUTO [id number] 07:54:00* Test Item Value Reference Range Interpretation Comme nts WHITE BLOOD CELL (test code = WBC) 12.4 x10 3/uL 4.5-11.0 H RED BLOOD CELL (test code = RBC) 3.19 x10 6/uL 3.54-5.02 L HEMOGLOBIN (test code = HGB) 8.3 g/dL 11.0-15.0 L HEMATOCRIT (test code = HCT) 27.2 % 33.0-45.0 L MEAN CELL VOLUME (test code = MCV) 85.3 fL 81.0-99.0 N MEAN CELL HGB (test code = MCH) 26.0 pg 27.0-33.0 L MEAN CELL HGB CONCETRATION (test code = MCHC) 30.5 g/dL 33.0-37.0 L RED CELL DISTRIBUTION WIDTH CV (test code = RDW) 16.1 % 11.5-14.5 H RED CELL DISTRIBUTION WIDTH SD (test code = RDW-SD) 50.2 fL 37.0-54.0 N PLATELET COUNT (test code = PLT) 289 x10 3/uL 150-400 N MEAN PLATELET VOLUME (test c ode = MPV) 11.3 fL 7.0-9.0 H NEUTROPHIL % (test code = NT%) 62.8 % 56.0-77.0 N IMMATURE GRANULOCYTE % (test code = IG%) 0.5 % 0.0-2.0 N LYMPHOCYTE % (test code = LY%) 25.7 % 14.0-32.0 N MONOCYTE % (test code = MO%) 9.7 % 4.8-9.0 H EOSINOPHIL % (test code = EO%) 0.8 % 0.3-3.7 N BASOPHIL % (test code = BA%) 0.5 % 0.0-2.0 N NUCLEATED RBC % (test code = NRBC%) 0.0 % 0-0 N NEUTROPHIL # (test code = NT#) 7.76 x10 3/uL 2.0-7.6 H IMMATURE GRANULOCYTE # (test code = IG#) 0.06 x10 3/uL 0.00-0.03 H LYMPHOCYTE # (test code = LY#) 3.17 x10 3/uL 1.0-3.8 N MONOCYTE # (test code = MO#) 1.20 x10 3/uL 0.1-0.8 H EOSINOPHIL # (test code = EO#) 0.10 x10 3/uL 0.0-0.2 N BASOPHIL # (test code = BA#) 0.06 x10 3/uL 0.0-0.2 N NUCLEATED RBC # (test code = NRBC#) 0.00 x10 3/uL 0.0-0.1 N MANUAL DIFF REQUIRED (test c ode = MDIFF) NO RAPID PLASMA [id number] 11:50:00* Test Item Value Reference Range Interpretation Comme nts RAPID PLASMA REAGIN (test co de = RPR) NONREACTIVE NONREACTIVE AG HEPATITIS B [id number] 11:50:00* Test Item Value Reference Range Interpretation Comme nts AG HEPATITIS B SURFACE (test code = HBSAG) NON REACTIVE INDEX NonReactive AB HIV 1 11:50:00* Test Item Value Reference Range Interpretation Comme nts AB HIV 1 2 (test code = RBP42KQ) Nonreactive Nonreactive CBC W/AUTO [id number] 19:59:00* Test Item Value Reference Range Interpretation Comme nts WHITE BLOOD CELL (test code = WBC) 10.1 x10 3/uL 4.5-11.0 N RED BLOOD CELL (test code = RBC) 3.32 x10 6/uL 3.54-5.02 L HEMOGLOBIN (test code = HGB) 8.6 g/dL 11.0-15.0 L HEMATOCRIT (test code = HCT) 27.4 % 33.0-45.0 L MEAN CELL VOLUME (test code = MCV) 82.5 fL 81.0-99.0 N MEAN CELL HGB (test code = MCH) 25.9 pg 27.0-33.0 L MEAN CELL HGB CONCETRATION (test code = MCHC) 31.4 g/dL 33.0-37.0 L RED CELL DISTRIBUTION WIDTH CV (test code = RDW) 16.1 % 11.5-14.5 H RED CELL DISTRIBUTION WIDTH SD (test code = RDW-SD) 48.4 fL 37.0-54.0 N PLATELET COUNT (test code = PLT) 289 x10 3/uL 150-400 N MEAN PLATELET VOLUME (test c ode = MPV) 11.1 fL 7.0-9.0 H NEUTROPHIL % (test code = NT%) 62.4 % 56.0-77.0 N IMMATURE GRANULOCYTE % (test code = IG%) 0.8 % 0.0-2.0 N LYMPHOCYTE % (test code = LY%) 26.3 % 14.0-32.0 N MONOCYTE % (test code = MO%) 9.6 % 4.8-9.0 H EOSINOPHIL % (test code = EO%) 0.6 % 0.3-3.7 N BASOPHIL % (test code = BA%) 0.3 % 0.0-2.0 N NUCLEATED RBC % (test code = NRBC%) 0.0 % 0-0 N NEUTROPHIL # (test code = NT#) 6.27 x10 3/uL 2.0-7.6 N IMMATURE GRANULOCYTE # (test code = IG#) 0.08 x10 3/uL 0.00-0.03 H LYMPHOCYTE # (test code = LY#) 2.65 x10 3/uL 1.0-3.8 N MONOCYTE # (test code = MO#) 0.97 x10 3/uL 0.1-0.8 H EOSINOPHIL # (test code = EO#) 0.06 x10 3/uL 0.0-0.2 N BASOPHIL # (test code = BA#) 0.03 x10 3/uL 0.0-0.2 N NUCLEATED RBC # (test code = NRBC#) 0.00 x10 3/uL 0.0-0.1 N MANUAL DIFF REQUIRED (test c ode = MDIFF) NO AMNISURE (ROM) [id number] 18:12:00* Test Item Value Reference Range Interpretation Comme nts AMNISURE (ROM) TEST (test co de = AMNI) POSITIVE NEGATIVE A AMNISURE (ROM) [id number] 21:41:00* Test Item Value Reference Range Interpretation Comme nts AMNISURE (ROM) TEST (test co de = AMNI) NEGATIVE NEGATIVE [id number] 20:11:00* Test Item Value Reference Range Interpretation Comme nts FIBRONECTIN (test code = FFN) POSITIVE NEGATIVE A UA RFLX MICR CULT IF [id number] 20:11:00* Test Item Value Reference Range Interpretation Comme nts UA COLOR (test code = COLU) YELLOW YEL/STRAW UA APPEARANCE (test code = APPU) SL CLOUDY CLEAR UA GLUCOSE DIPSTICK (test co de = DGLUU) NEGATIVE NEGATIVE UA BILIRUBIN DIPSTICK (test code = BILU) 1+ NEGATIVE A UA KETONE DIPSTICK (test cod e = KETU) TRACE NEGATIVE A UA SPECIFIC GRAVITY (test co de = SGU) 1.033 1.005-1.030 H UA BLOOD DIPSTICK (test code = KURTIS) NEGATIVE NEGATIVE UA PH DIPSTICK (test code = SHAINA) 5.0 5.0-7.0 N UA PROTEIN DIPSTICK (test co de = PROU) 2+ NEGATIVE A UA UROBILINIOGEN DIPSTICK (t est code = URO) 2.0 mg/dL 0.2-1.0 A UA NITRITE DIPSTICK (test co de = BHUPENDRA) NEGATIVE NEGATIVE UA LEUKOCYTE ESTERASE DIPSTI CK (test code = LEUU) TRACE NEGATIVE A UA WBC (test code = WBCU) 10-20 WBC/HPF 0-3 A UA RBC (test code = RBCU) 0-3 RBC/HPF 0-3 UA WBC NO REFLEX (test code = WBCUCL) 10-20 WBC/HPF 0-3 A UA BACTERIA (test code = BACU) TRACE /HPF NONE SEEN UA SQUAMOUS CELLS (test code = SQU) 11-25 /HPF NONE SEEN A UA MUCUS (test code = MUCU) 4+ /LPF NONE SEEN A Indication for culture: Suprapubic PainSpecimen Description: CLEAN CATCHDRUGS OF ABUSE SCREEN [id number] 20:10:00* Test Item Value Reference Range Interpretation Comme nts URN COCAINE (test code = COCAURN) NEGATIVE NEGATIVE URN CANNABINOIDS (test code = CANNABURN) NEGATIVE NEGATIVE URN AMPHETAMINE (test code = AMPHETURN) NEGATIVE NEGATIVE URN BARBITURATE (test code = BARBITURN) NEGATIVE NEGATIVE URN BENZODIAZEPINE (test code = BENZOURN) NEGATIVE NEGATIVE Cut-off v alue:200 ng/mL URN OPIATES (test code = OPIATURN) NEGATIVE NEGATIVE Cut-off value:20 00 ng/mL URN PHENCYCLIDINE (PCP) (test code = PHENCURN) NEGATIVE NEGATIVE Cutoffs:B arbiturates 200 ng/mLBenzodiazepines 200 ng/mLTHC Cannabinoids 50 ng/mLOpiates(Morphine) 2000 ng/mLAmphetamine 1000 ng/mLCocaine 300 ng/mLPCP phencyclidine 25 ng/mL Unconfirmed screening results shouldnot be used for non-medical purposes. - US BIOPHYS [id number] 00:00:00 [facility] : 2000 Sex: F Name: BI EDMONDS [facility] [place] : 2000 Age/S: 21 / F [address] [place] [address] Unit #: [id number] Loc: [place] [address] Phys: Zoila Gomez DO Acct: [id number] Dis Date: Status: REG ER PHONE #: [phone] Exam Date: 09/26/20222004 FAX #: [phone] Reason: decreased FM EXAMS: CPTCODE: [id number] US BIOPHYS PROF [id number] PROCEDURE INFORMATION: Exam: US Biophysical Profile Without Non-Stress Test Exam date and time: 09/26/2022 7:49 PM Age: 21 years old Clinical indication: Pain indication: Abdominal pain; ; Additional info: Decreased fm TECHNIQUE: Imaging protocol: US biophysical profile without non-stress testing. COMPARISON: US FET BIO PH OR W/O NST 09/07/2022 11:03 PM A limited transabdominal obstetrical ultrasound was performed for biophysical profile determination. The ultrasound reveals the presence of a single intrauterine in cephalic position. The placenta is anteriorly positioned and demonstrates grade 2 echotexture. There is noevidence of placenta previa. Amniotic fluid volume appears within normal limits with a measured AFIof 11.4 cm. The cervix was not well visualized. The fetus meets the biophysical profile criteria for breathing movement, gross body movement, tone and amniotic fluid volume giving a biophysical profile score of 8/8. The umbilical artery S/D ratio was 2.8. IMPRESSION: 1. Single living intrauterine in cephalic position. 2. biophysical profile score of 8/8. SL: 131. at 2113 Reported and signed by: Malcolm Wilson M.D. CC: Zoila Gomez DO Technologist: Josefina Fitch [employer] Date/Time: 09/26/2022 (2113) Karoline Orig Print D/T: S: 09/26/2022 (2113) Probe: PAGE 1 Signed Report- US PREG AFTER [id number] 00:00:00 [facility] MADELINE COFFMANName: BI EDMONDS : 2000 Sex: F Name: BI EDMONDS [facility] Madeline Coffman : 2000 Age/S: 21 / F [address] [place] [address] Unit #: [id number] Loc: [place] [address] Phys: GomezZoila DO Acct: [id number] Dis Date: Status: REG ER PHONE #: [phone] Exam Date: 09/26/20222004 FAX #: [phone] Reason: PTL EXAMS: CPT CODE: [id number] US PREG AFTER 1ST TRI 90229 PROCEDURE INFORMATION: Exam: US After First Trimester, Transabdominal Exam date and time: 09/26/2022 7:49 PM Age: 21 years old Clinical indication: complicated by abdominal or pelvic pain; Periumbilical; Third trimester (=28 weeks 0 days); Gestational age or lmp: 32w; ; Additional info: Ptl TECHNIQUE: Imaging protocol: Real-time trans abdominal obstetrical ultrasound of the maternal pelvis and a second or third trimester with image documentation. COMPARISON: US LTD 09/13/2022 8:38 AM FINDINGS: EGA by LMP: 32 weeks 1 day EGA by current US: 31 weeks 3 days DANY by LMP: 11/20/2022 DANY by ultrasound: 11/25/2022. Gestation: Jauregui Presentation: Cephalic heart rate: 148 bpm Amniotic fluid index: 11.39 cm; largest pocket measures 4.37 cm. Placenta: Anterior, grade 2. No evidence of placenta previa. Cervical length: cm S/D ratio: 2.8 measurements: BPD: 8.23 cm, 33 weeks 1 day HC: 28.33 cm, 31 weeks1 day AC: 25.23 cm, 29 weeks 3 days FL: 6.19 cm, . Thirty-one weeks 1 day Ratios: FL/BPD: 75.22 (71.0--87.0) FL/AC: 24.53 (20.00-24.00). HC/AC: 1.12. (0.96--1.16) FL/HC: 21.85 (19.21-21.30) Estimatedfetal weight: 1628 g +/-244.15 g (3 lb 9 oz +/-9 oz) anatomy: Unremarkable as visualized. biophysical profile: tone: 2 PAGE 1 Signed Report (CONTINUED) Name: BI EDMONDS [facility] [place] : 2000 Age/S: 21 / F [address] [place] [address] Unit #: [id number] Loc: [place] [address] Phys: Zoila Gomez DO Acct: [id number] Dis Date: Status: REG ER PHONE #: [phone] ExamDate: 09/26/20222004 FAX #: [phone] Reason: PTL EXAMS: CPT CODE: [id number] US PREG AFTER 1STTRI 27944 (Continued) movement: 2. breathin Amniotic fluid: 2 Total score 8/8 IMPRES DESIREE: 1. Single viable intrauterine gestation in cephalic presentation. 2. Normal growth concordant with dates. 3. Normal biophysical profile. Electronically Signed by Valeria Garcia 09/26/2022 at 2116 Reported and signed by: Jeromy Wolfe M.D. CC: Zoila Gomez DO Technologist: [facility]fina [facility]itch [facility] Date/Time: 09/26/2022 (2116) [id number] Orig Print D/T: S: 09/26/2022 (2116) Probe: PAGE 2 Signed ReportAMNISURE (ROM) [id number] 14:39:00* Test Item Value Reference Range Interpretation Comme nts AMNISURE (ROM) TEST (test co de = AMNI) NEGATIVE NEGATIVE CHLAMYDIA GC DNA BY [id number] 13:07:00* Test Item Value Reference Range Interpretation Comme nts C. TRACHOMATIS DNA BY PCR (test code = CHLAMTDNA) Negative Negative N. GONORRHOEAE DNA BY PCR (test code = NGONORDNA) Negative Negative Performed At: [facility] [address] [place], [place] [id number] Marc Rosales MD Ph:[phone] UA RFLX MICR CULT IF [id number] 21:16:00* Test Item Value Reference Range Interpretation Comme nts UA COLOR (test code = COLU) YELLOW YEL/STRAW UA APPEARANCE (test code = APPU) SL CLOUDY CLEAR UA GLUCOSE DIPSTICK (test co de = DGLUU) NEGATIVE NEGATIVE UA BILIRUBIN DIPSTICK (test code = BILU) NEGATIVE NEGATIVE UA KETONE DIPSTICK (test cod e = KETU) NEGATIVE NEGATIVE UA SPECIFIC GRAVITY (test co de = SGU) 1.019 1.005-1.030 N UA BLOOD DIPSTICK (test code = KURTIS) NEGATIVE NEGATIVE UA PH DIPSTICK (test code = SHAINA) 6.0 5.0-7.0 N UA PROTEIN DIPSTICK (test co de = PROU) NEGATIVE NEGATIVE UA UROBILINIOGEN DIPSTICK (t est code = URO) 2.0 mg/dL 0.2-1.0 A UA NITRITE DIPSTICK (test co de = BHUPENDRA) NEGATIVE NEGATIVE UA LEUKOCYTE ESTERASE DIPSTI CK (test code = LEUU) TRACE NEGATIVE A UA WBC (test code = WBCU) 10-20 WBC/HPF 0-3 A UA RBC (test code = RBCU) 0-3 RBC/HPF 0-3 UA WBC NO REFLEX (test code = WBCUCL) 10-20 WBC/HPF 0-3 A UA BACTERIA (test code = BACU) TRACE /HPF NONE SEEN UA SQUAMOUS CELLS (test code = SQU) 11-25 /HPF NONE SEEN A UA MUCUS (test code = MUCU) TRACE /LPF NONE SEEN Indication for culture: Suprapubic PainSpecimen Description: CLEAN CATCHRAPID PLASMA [id number] 11:04:00* Test Item Value Reference Range Interpretation Comme nts RAPID PLASMA REAGIN (test co de = RPR) NONREACTIVE NONREACTIVE AG HEPATITIS B [id number] 11:04:00* Test Item Value Reference Range Interpretation Comme nts AG HEPATITIS B SURFACE (test code = HBSAG) NON REACTIVE INDEX NonReactive AB HIV 1 11:04:00* Test Item Value Reference Range Interpretation Comme nts AB HIV 1 2 (test code = PMW11AU) Nonreactive Nonreactive [id number] 08:05:00* Test Item Value Reference Range Interpretation Comme nts MAGNESIUM (test code = MAG) 4.22 mg/dL 1.80-2.40 HH CBC W/AUTO [id number] 00:08:00* Test Item Value Reference Range Interpretation Comme nts WHITE BLOOD CELL (test code = WBC) 10.4 x10 3/uL 4.5-11.0 N RED BLOOD CELL (test code = RBC) 3.37 x10 6/uL 3.54-5.02 L HEMOGLOBIN (test code = HGB) 9.1 g/dL 11.0-15.0 L HEMATOCRIT (test code = HCT) 28.5 % 33.0-45.0 L MEAN CELL VOLUME (test code = MCV) 84.6 fL 81.0-99.0 N MEAN CELL HGB (test code = MCH) 27.0 pg 27.0-33.0 N MEAN CELL HGB CONCETRATION (test code = MCHC) 31.9 g/dL 33.0-37.0 L RED CELL DISTRIBUTION WIDTH CV (test code = RDW) 13.9 % 11.5-14.5 N RED CELL DISTRIBUTION WIDTH SD (test code = RDW-SD) 43.2 fL 37.0-54.0 N PLATELET COUNT (test code = PLT) 300 x10 3/uL 150-400 N MEAN PLATELET VOLUME (test c ode = MPV) 10.7 fL 7.0-9.0 H NEUTROPHIL % (test code = NT%) 59.2 % 56.0-77.0 N IMMATURE GRANULOCYTE % (test code = IG%) 0.6 % 0.0-2.0 N LYMPHOCYTE % (test code = LY%) 31.0 % 14.0-32.0 N MONOCYTE % (test code = MO%) 8.1 % 4.8-9.0 N EOSINOPHIL % (test code = EO%) 0.8 % 0.3-3.7 N BASOPHIL % (test code = BA%) 0.3 % 0.0-2.0 N NUCLEATED RBC % (test code = NRBC%) 0.0 % 0-0 N NEUTROPHIL # (test code = NT#) 6.16 x10 3/uL 2.0-7.6 N IMMATURE GRANULOCYTE # (test code = IG#) 0.06 x10 3/uL 0.00-0.03 H LYMPHOCYTE # (test code = LY#) 3.22 x10 3/uL 1.0-3.8 N MONOCYTE # (test code = MO#) 0.84 x10 3/uL 0.1-0.8 H EOSINOPHIL # (test code = EO#) 0.08 x10 3/uL 0.0-0.2 N BASOPHIL # (test code = BA#) 0.03 x10 3/uL 0.0-0.2 N NUCLEATED RBC # (test code = NRBC#) 0.00 x10 3/uL 0.0-0.1 N MANUAL DIFF REQUIRED (test c ode = CAT) NO - US FET BIO PH OR W/O [id number] 00:00[facility] 2000 Sex: F Name: LUIS EDMONDS [facility] : 2000 Age/S: 21 / F [address] [place] [address] Unit #: [id number] Loc: Shaq [place] [address] Phys: Juany Carrillo MD Acct: [id number] Dis Date: Status: ADM IN PHONE #: [phone] Exam Date: 09/07/2022 Formerly named [facility] FAX #: [phone] Reason: IUP@29 wks; Leakingfluid; ROM plus positive EXAMS: CPT CODE: [id number] US FET BIO PH OR W/O NST 59319 PROCEDURE INFORMATION: Exam: US , Limited Exam [...] COMPARISON: US BIOPHYS PROF 03/12/2021 11:26 PM Alimited transabdominal obstetrical ultrasound was performed for biophysical profile determination. The ultrasound reveals the presence of a single intrauterine in cephalic position. Fe quynh cardiac activity is detected with a heart [...] plus positive TECHNIQUE: Imaging protocol: US biophysical profilewithout non-stress testing. COMPARISON: US BIOPHYS PROF 03/12/2021 11:26 PM PAGE 1 Signed Report (CONTINUED) Name: CATRACHO EDMONDSABELLE [facility] : 2000 Age/S: 21 / F [address] [place] [address] Unit #: [id number] Loc: [place] [address] Phys: Juany Carrillo MD Acct: [id number] Dis Date: Status: ADM IN PHONE #: [phone] Exam Date: 09/07/20222315 FAX #: [phone] Reason: IUP@29 wks; Leaking fluid; ROM plus positive EXAMS: CPT CODE: [id number] US FET BIO PH OR W/O NST 15205 (Continued) A limited transabdominal obstetrical ultrasound was performed for biophysical profi le determination. The ultrasound reveals the presence of [...] ratio was 3.4. IMPRESSION: 1. Single living int rauterine in cephalic position. 2. biophysical profile score of 8/8. SL: 131. at 0002 Reported and signedby: Malcolm Wilson M.D. CC: Juany Carrillo MD Technologist: Victoria Tripathi RDMS(AB)(OB) Trnscb Date/Time: 09/08/2022 (0002) Karoline Orig Print D/T: S: 09/08/2022 (0002) Probe: PAGE 2 Signed Report- US [id number] 00:00:00 [facility] : 2000 Sex: F Name: LUIS EDMONDS [facility] [place] : 2000 Age/S: 21 / F [address] [place] [address] Unit #: [id number] Loc: [place] [address] Phys: Juany Carrillo MD Acct: [id number] Dis Date: Status: ADM IN PHONE #: [phone] Exam Date: 09/07/20222314 FAX #: [phone] Reason: see US FET BIO PH PRW/O NST EXAMS: CPT CODE: [id number] US LTD [address] PROCEDURE INFORMATION: Exam: US , Limited Exam [...] 11 cm. The cervix was not well visualized.The fetus meets the biophysical profile criteria for [...] 1 Signed Report (CONTINUED) Name: LUIS EDMONDS [facility] : 2000 Age/S: 21 / F [address] [place] [address] Unit #: [id number] Loc: [place] [address] Phys: Juany Carrillo MD Acct: [id number] Dis Date: Status: ADM IN PHONE #: [phone] Exam Date: 09/07/20222314 FAX #: [phone] Reason: see US FET BIO PH OR W/O NST EXAMS: CPT CODE: [id number] [place] LTD 91330 (Continued) A limited transabdominal obstetrical ultrasound was [...] The cervix was not well visualized. The fetusmeets the biophysical profile criteria for breathing movement, gross body movement, tone and amniotic fluid volume giving a biophysical profile score of 8/8. The average umbilical arteryS/D ratio was 3.4. IMPRESSION: 1. Single living intrauterine in cephalic position. 2. biophysical profile score of 8/8. SL: 131. at 0002 Reported and signed by: Malcolm Wilson M.D. CC: Juany Carrillo MD Technologist: Victoria Tripathi RDMS(AB)(OB) Trnscb Date/Time: 09/08/2022 (0002) KaneDMM Orig Print D/T: S: 09/08/2022 (0002) Probe: PAGE 2 Signed ReportAMNISURE (ROM) [id number] 22:26:00* Test Item Value Reference Range Interpretation Comme nts AMNISURE (ROM) TEST (test co de = AMNI) POSITIVE NEGATIVE A UA RFLX MICR CULT IF [id number] 22:12:00* Test Item Value Reference Range Interpretation Comme nts UA COLOR (test code = COLU) STRAW YEL/STRAW UA APPEARANCE (test code = APPU) CLEAR CLEAR UA GLUCOSE DIPSTICK (test co de = DGLUU) NEGATIVE NEGATIVE UA BILIRUBIN DIPSTICK (test code = BILU) NEGATIVE NEGATIVE UA KETONE DIPSTICK (test cod e = KETU) NEGATIVE NEGATIVE UA SPECIFIC GRAVITY (test co de = SGU) 1.006 1.005-1.030 N UA BLOOD DIPSTICK (test code = KURTIS) NEGATIVE NEGATIVE UA PH DIPSTICK (test code = SHAINA) 7.0 5.0-7.0 N UA PROTEIN DIPSTICK (test co de = PROU) NEGATIVE NEGATIVE UA UROBILINIOGEN DIPSTICK (t est code = URO) 0.2 mg/dL 0.2-1.0 UA NITRITE DIPSTICK (test co de = BHUPENDRA) NEGATIVE NEGATIVE UA LEUKOCYTE ESTERASE DIPSTI CK (test code = LEUU) NEGATIVE NEGATIVE UA WBC (test code = WBCU) 0-3 WBC/HPF 0-3 UA RBC (test code = RBCU) 0-3 RBC/HPF 0-3 UA WBC NO REFLEX (test code = WBCUCL) 0-3 WBC/HPF 0-3 UA BACTERIA (test code = BACU) TRACE /HPF NONE SEEN UA SQUAMOUS CELLS (test code = SQU) 6-10 /HPF NONE SEEN A UA MUCUS (test code = MUCU) TRACE /LPF NONE SEEN Indication for culture: Suprapubic PainSpecimen Description: CLEAN CATCHFETAL [id number] 16:47:00* Test Item Value Reference Range Interpretation Comme nts FIBRONECTIN (test code = FFN) NEGATIVE NEGATIVE URINALYSIS [id number] 16:34:00* Test Item Value Reference Range Interpretation Comme nts UA COLOR (test code = COLU) YELLOW YEL/STRAW UA APPEARANCE (test code = APPU) CLEAR CLEAR UA GLUCOSE DIPSTICK (test co de = DGLUU) NEGATIVE NEGATIVE UA BILIRUBIN DIPSTICK (test code = BILU) NEGATIVE NEGATIVE UA KETONE DIPSTICK (test cod e = KETU) NEGATIVE NEGATIVE UA SPECIFIC GRAVITY (test co de = SGU) 1.017 1.005-1.030 N UA BLOOD DIPSTICK (test code = KURTIS) NEGATIVE NEGATIVE UA PH DIPSTICK (test code = SHAINA) 7.0 5.0-7.0 N UA PROTEIN DIPSTICK (test co de = PROU) NEGATIVE NEGATIVE UA UROBILINIOGEN DIPSTICK (test code = URO) 0.2 mg/dL 0.2-1.0 UA NITRITE DIPSTICK (test co de = BHUPENDRA) NEGATIVE NEGATIVE UA LEUKOCYTE ESTERASE DIPSTI CK (test code = LEUU) NEGATIVE NEGATIVE UA RBC (test code = RBCU) 0-3 RBC/HPF 0-3 UA WBC NO REFLEX (test code = WBCUCL) 0-3 WBC/HPF 0-3 UA BACTERIA (test code = BACU) NONE SEEN /HPF NONE SEEN UA SQUAMOUS CELLS (test code = SQU) 0-5 /HPF NONE SEEN UA MUCUS (test code = MUCU) TRACE /LPF NONE SEEN - XR ANKLE 3 + V [id number] 00:00:00 [facility] : 2000 Sex: F FAX: Emily Mckoy MD [phone] [place]: [place] St: PRE FAX: Romeo Chavez Name: LUIS EDMONDS FSED : 2000 Age/S: 21/F [address] [facility] Unit #: [id number] Loc: [place] [address] Phys:Ghanshyam Chavez MD Acct: [id number] Dis Date: Status: PRE ER PHONE #: Exam Date: 03/06/2022 1600 FAX #: Reason: R ANKLE PAIN AFTER FALL EXAMS: CPT CODE: [id number] XR ANKLE 3 + V RT 41231 PROCEDURE INFORMATION: Exam: XR Right Ankle Exam date and time: 03/06/2022 3:54 PM Age: 21 years oldClinical indication: Pain; Ankle; Right; Additional info: R [...] Emeka Pickering M.D. CC: Emily Artis MD; Otoniel Chavez MD Technologist: Katerina Rosas RT(R)(CT) Trnscrd Date/Time/By: 03/06/2022 (1600) :By: KaneSBL Orig Print D/T: S: 03/06/2022 (2235) PAGE 1 Signed Report- XR FOOT 3 + V [id number] 00:00:00 [facility] : 2000 Sex: F FAX: Emily Mckoy MD [phone] [place]: [place] St: PRE FAX: Romeo Chavez Name: LUIS EDMONDS [facility] : 2000 Age/S: 21/F [address] [facility] Unit #: [id number] Loc: [place] [address] Phys: Ghanshyam Chavez MD Acct: [id number] Dis Date: Status: PRE ER PHONE #: Exam Date: 03/06/2022 9427 FAX #: Reason: r foot injury EXAMS: CPT CODE: [id number] XR FOOT 3 + V RT 16512 PROCEDURE INFORMATION: Exam: XR Right Foot Exam [...] Technologist: Katerina Rosas RT(R)(CT) Trnscrd Date/Time/By: 03/06/2022 (8397) : By: KaneSBL Orig Print D/T: S: 03/06/2022 (5910) PAGE 1 Signed ReportURINE HCG TRIAGE (ER ONLY)2021-11-11 08:40:00* Test Item Value Reference Range Interpretation Comme nts URINE HCG TRIAGE (ER ONLY) ( test code = HCGTRIAGE) NEGATIVE Negative Urine Test Result: NEGATIVEAre internal controls (presence of a control line & clear background) OK? YLot # of HCG Test Kit: [id number] Date of Kit: 02/15/23Test Performed by:Carlo Perfomed on: 11/11/21COMMENTS: NEGATIVEUA DIPSTICK [id number] 00:46:00* Test Item Value Reference Range Interpretation Comme nts UA GLUCOSE DIPSTIC POC (test code = GLUUP) NEGATIVE NEGATIVE UA BILIRUBIN DIPSTICK (test code = BILU) NEGATIVE NEGATIVE UA KETONE DIPSTICK POC (test code = KETUP) NEGATIVE NEGATIVE UA SPECIFIC GRAVITY (test code = SGU) 1.010 1.005-1.030 N UA BLOOD DIPSTIC POC (test code = BLUP) NEGATIVE NEGATIVE Performed by certified salt operator at [facility] UA PH DIPSTIC POC (test code = PHUP) 7 5.0-7.0 N UA PROTEIN DIPSTICK POC (test code = DPROUP) NEGATIVE NEGATIVE UA UROBILINIOGEN QUAL (test code = UROQL) NORMAL 0.2-1.0 UA NITRITE DIPSTICK POC (test code = NITUP) NEGATIVE Negative UA LEUKOCYTE ESTERASE W REFLEX (test code = LEUUR) Negative NEGATIVE SURGICAL PATH [id number] 13:13:00* Test Item Value Reference Range Interpretation Comme nts SURGICAL PATH SPECIMENS (test code = S) RUN DATE: 03/28/21 [place] - LAB PAGE 1 RUN TIME: 1313 Specimen Inquiry RUN USER: INTERFACE ARTEMIO ENT: LUIS EDMONDS LOC: [place] U #: [id number] AGE/SX: 20/F ROOM: [facility] RE03/25/21REG DR: Luis Burciaga MD : [birth year] BED: 1 DIS: STATUS: ADM IN TLOC: SPEC #: [id number] RECD: 03/27/21-1018 STATUS: GLENN REQ #: [id number] SLOAN: 03/26/21- SUBM DR: Luis Burciaga MD ENTERED: 03/27/21-1020 SP TYPE: SURG SPEC OTHR DR: ORDERED: GM LEVEL 5 CODES: [id number] - PLACENTA, NOS PROCEDURES: GM LEVEL 5 (03/27/21-1020) TISSUES: PLACENTA, NOS FINAL DIAGNOSIS Placenta, delivery: [...] 03/28/21 1313 END OF REPORT CBC W/AUTO [id number] 07:03:00* Test Item Value Reference Range Interpretation Comme nts WHITE BLOOD CELL (test code = WBC) 12.6 x10 3/uL 4.5-11.0 H RED BLOOD CELL (test code = RBC) 2.95 x10 6/uL 3.54-5.02 L HEMOGLOBIN (test code = HGB) 8.0 g/dL 11.0-15.0 L HEMATOCRIT (test code = HCT) 25.8 % 33.0-45.0 L MEAN CELL VOLUME (test code = MCV) 87.5 fL 81.0-99.0 N MEAN CELL HGB (test code = MCH) 27.1 pg 27.0-33.0 N MEAN CELL HGB CONCETRATION (test code = MCHC) 31.0 g/dL 33.0-37.0 L RED CELL DISTRIBUTION WIDTH CV (test code = RDW) 14.5 % 11.5-14.5 N RED CELL DISTRIBUTION WIDTH SD (test code = RDW-SD) 46.5 fL 37.0-54.0 N PLATELET COUNT (test code = PLT) 294 x10 3/uL 150-400 N MEAN PLATELET VOLUME (test c ode = MPV) 11.7 fL 7.0-9.0 H NEUTROPHIL % (test code = NT%) 64.4 % 56.0-77.0 N IMMATURE GRANULOCYTE % (test code = IG%) 0.5 % 0.0-2.0 N LYMPHOCYTE % (test code = LY%) 24.9 % 14.0-32.0 N MONOCYTE % (test code = MO%) 9.4 % 4.8-9.0 H EOSINOPHIL % (test code = EO%) 0.6 % 0.3-3.7 N BASOPHIL % (test code = BA%) 0.2 % 0.0-2.0 N NUCLEATED RBC % (test code = NRBC%) 0.0 % 0-0 N NEUTROPHIL # (test code = NT#) 8.09 x10 3/uL 2.0-7.6 H IMMATURE GRANULOCYTE # (test code = IG#) 0.06 x10 3/uL 0.00-0.03 H LYMPHOCYTE # (test code = LY#) 3.13 x10 3/uL 1.0-3.8 N MONOCYTE # (test code = MO#) 1.18 x10 3/uL 0.1-0.8 H EOSINOPHIL # (test code = EO#) 0.07 x10 3/uL 0.0-0.2 N BASOPHIL # (test code = BA#) 0.03 x10 3/uL 0.0-0.2 N NUCLEATED RBC # (test code = NRBC#) 0.00 x10 3/uL 0.0-0.1 N MANUAL DIFF REQUIRED (test c ode = MDIFF) NO CORD VENOUS BLOOD [id number] 18:41:00* Test Item Value Reference Range Interpretation Comme nts CORD VENOUS PH (test code = PHCV) 7.22 7.25-7.45 L CORD VENOUS PCO2 (test code = PCO2CV) 57 mmHg 27-49 H CORD VENOUS PO2 (test code = PO2CV) 17 mmHg 17-41 N CORD VENOUS HCO3 (test code = HCO3CV) 23.2 MMOL/L 12-28 N CORD VENOUS BASE EXCESS (naima t code = BEXCV) -4.5 mmol/L -8.0-0.00 N CORD VENOUS 02 SAT (test cod e = O2SCV) 17 % CORD ARTERIAL BLOOD [id number] 18:40:00* Test Item Value Reference Range Interpretation Comme nts CORD BLOOD PH (test code = PH/C) 7.19 7.18-7.38 N CORD BLOOD PCO2 (test code = PCO2/C) 59 mmHg 32-66 N CORD BLOOD PO2 (test code = PO2/C) 22 mmHg 6-30 N CORD BLOOD HCO3 (test code = HCO3/C) 22 mmol/L 17-27 N BASE EXCESS CORD (test code = ARUN/C) -5.9 mmol/L -8.0-0.0 N O2 SATURATION (test code = O2S/C) 25 % 72-77 L RAPID PLASMA [id number] 10:40:00* Test Item Value Reference Range Interpretation Comme nts RAPID PLASMA REAGIN (test co de = RPR) NONREACTIVE NONREACTIVE AG HEPATITIS B [id number] 10:40:00* Test Item Value Reference Range Interpretation Comme nts AG HEPATITIS B SURFACE (test code = HBSAG) NON REACTIVE INDEX NonReactive AB HIV 1 10:40:00* Test Item Value Reference Range Interpretation Comme nts AB HIV 1 2 (test code = JUC81NM) Nonreactive Nonreactive COVID 19 Asymptomatic IH [id number] 20:20:00* Test Item Value Reference Range Interpretation Comme nts COVID 19 Asymptomatic IH AG (test code = COVNONPUIAG) Negative Negative A negative resul t is presumptive and should be confirmedwith an FDA authorized molecular assay, if necessary forpatient management.A positive result does not rule out co-infections withother pathogens.This test detects both viable (live) and non-viable,SARS-CoV, and SARS-CoV-2. Test performance depends on theamount of virus (antigen) in the sample.This test has not been FDA cleared or approved; the test hasbeen authorized by FDA under an Emergency Use Authorization(EUA) for use by laboratories certified under the CLIA thatmeet the requirements to perform moderate, high or waivedcomplexity tests. URINALYSIS [id number] 18:48:00* Test Item Value Reference Range Interpretation Comme nts UA COLOR (test code = COLU) YELLOW YEL/STRAW UA APPEARANCE (test code = APPU) SL CLOUDY CLEAR UA GLUCOSE DIPSTICK (test co de = DGLUU) NEGATIVE NEGATIVE UA BILIRUBIN DIPSTICK (test code = BILU) NEGATIVE NEGATIVE UA KETONE DIPSTICK (test cod e = KETU) NEGATIVE NEGATIVE UA SPECIFIC GRAVITY (test co de = SGU) 1.010 1.005-1.030 N UA BLOOD DIPSTICK (test code = KURTIS) NEGATIVE NEGATIVE UA PH DIPSTICK (test code = SHAINA) 7.0 5.0-7.0 N UA PROTEIN DIPSTICK (test co de = PROU) 1+ NEGATIVE A UA UROBILINIOGEN DIPSTICK (t est code = URO) 0.2 mg/dL 0.2-1.0 UA NITRITE DIPSTICK (test co de = BHUPENDRA) NEGATIVE NEGATIVE UA LEUKOCYTE ESTERASE DIPSTI CK (test code = LEUU) NEGATIVE NEGATIVE UA RBC (test code = RBCU) 4-10 RBC/HPF 0-3 UA WBC NO REFLEX (test code = WBCUCL) 0-3 WBC/HPF 0-3 UA BACTERIA (test code = BACU) TRACE /HPF NONE SEEN UA SQUAMOUS CELLS (test code = SQU) 0-5 /HPF NONE SEEN UA MUCUS (test code = MUCU) TRACE /LPF NONE SEEN RAPID PLASMA [id number] 18:11:00* Test Item Value Reference Range Interpretation Comme nts RAPID PLASMA REAGIN (test code = RPR) NONREACTI VE AG HEPATITIS B [id number] 18:11:00* Test Item Value Reference Range Interpretation Comme nts AG HEPATITIS B SURFACE (test code = HBSAG) NON REACTIVE INDEX NonReactive AB HIV 1 18:11:00* Test Item Value Reference Range Interpretation Comme nts AB HIV 1 2 (test code = ZPV17CD) Nonreactive Nonreactive COMPREHENSIVE METABOLIC [id number] 17:45:00* Test Item Value Reference Range Interpretation Comme nts SODIUM (test code = NA) 138 mEq/L 134-147 N POTASSIUM (test code = K) 4.0 mEq/L 3.4-5.0 N CHLORIDE (test code = CL) 107 mEq/L 100-108 N CARBON DIOXIDE (test code = CO2) 22 mEq/l 21-33 N ANION GAP (test code = GAP) 13 0-20 N GLUCOSE (test code = GLU) 78 mg/dL 70-110 N BLOOD UREA NITROGEN (test code = BUN) < 5 mg/dL 7-18 L GLOMERULAR FILTRATION RATE (test code = GFR) 160.7 110-120 H Units of measure = ml/min/1.73 m2 CREATININE (test code = CREAT) 0.5 mg/dL 0.6-1.3 L TOTAL PROTEIN (test code = PROT) 6.9 g/dL 6.4-8.2 N ALBUMIN (test code = ALB) 2.80 g/dL 3.4-5.0 L CALCIUM (test code = CA) 8.9 mg/dL 8.0-10.5 N BILIRUBIN TOTAL (test code = BILT) 0.40 mg/dL 0.0-1.0 N SGOT/AST (test code = AST) 14 IUnit/L 15-37 L SGPT/ALT (test code = ALT) < 7 IUnit/L 30-65 L ALKALINE PHOSPHATASE TOTAL (test code = ALKP) 153 IUnit/L 60-350 N URIC [id number] 17:45:00* Test Item Value Reference Range Interpretation Comme nts URIC ACID (test code = URIC) 4.0 mg/dL 2.6-7.2 N LACTIC DEHYDROGENASE(LDH)2021-03-25 17:45:00* Test Item Value Reference Range Interpretation Comme nts LACTIC DEHYDROGENASE(LDH) (t est code = LDH) 225 IUnits/L 84-246 N CBC W/AUTO [id number] 17:24:00* Test Item Value Reference Range Interpretation Comme nts WHITE BLOOD CELL (test code = WBC) x10 3/uL 4.5-11.0 RED BLOOD CELL (test code = RBC) x10 6/uL 3.54-5.02 HEMOGLOBIN (test code = HGB) g/dL 11.0-15.0 HEMATOCRIT (test code = HCT) % 33.0-45.0 MEAN CELL VOLUME (test code = MCV) fL 81.0-99.0 MEAN CELL HGB (test code = MCH) pg 27.0-33.0 MEAN CELL HGB CONCETRATION ( test code = MCHC) g/dL 33.0-37.0 RED CELL DISTRIBUTION WIDTH CV (test code = RDW) % 11.5-14.5 PLATELET COUNT (test code = PLT) 359 x10 3/uL 150-400 N NEUTROPHIL % (test code = NT%) % 56.0-77.0 LYMPHOCYTE % (test code = LY%) % 14.0-32.0 NEUTROPHIL # (test code = NT#) x10 3/uL 2.0-7.6 LYMPHOCYTE # (test code = LY#) x10 3/uL 1.0-3.8 MANUAL DIFF REQUIRED (test c ode = MDIFF) CBC W/AUTO [id number] 17:24:00* Test Item Value Reference Range Interpretation Comme nts WHITE BLOOD CELL (test code = WBC) 10.4 x10 3/uL 4.5-11.0 N RED BLOOD CELL (test code = RBC) 3.67 x10 6/uL 3.54-5.02 N HEMOGLOBIN (test code = HGB) 10.0 g/dL 11.0-15.0 L HEMATOCRIT (test code = HCT) 32.7 % 33.0-45.0 L MEAN CELL VOLUME (test code = MCV) 89.1 fL 81.0-99.0 N MEAN CELL HGB (test code = MCH) 27.2 pg 27.0-33.0 N MEAN CELL HGB CONCETRATION (test code = MCHC) 30.6 g/dL 33.0-37.0 L RED CELL DISTRIBUTION WIDTH CV (test code = RDW) 14.5 % 11.5-14.5 N RED CELL DISTRIBUTION WIDTH SD (test code = RDW-SD) 47.1 fL 37.0-54.0 N PLATELET COUNT (test code = PLT) 359 x10 3/uL 150-400 N MEAN PLATELET VOLUME (test c ode = MPV) 11.1 fL 7.0-9.0 H NEUTROPHIL % (test code = NT%) 61.2 % 56.0-77.0 N IMMATURE GRANULOCYTE % (test code = IG%) 0.5 % 0.0-2.0 N LYMPHOCYTE % (test code = LY%) 30.9 % 14.0-32.0 N MONOCYTE % (test code = MO%) 6.4 % 4.8-9.0 N EOSINOPHIL % (test code = EO%) 0.6 % 0.3-3.7 N BASOPHIL % (test code = BA%) 0.4 % 0.0-2.0 N NUCLEATED RBC % (test code = NRBC%) 0.0 % 0-0 N NEUTROPHIL # (test code = NT#) 6.35 x10 3/uL 2.0-7.6 N IMMATURE GRANULOCYTE # (test code = IG#) 0.05 x10 3/uL 0.00-0.03 H LYMPHOCYTE # (test code = LY#) 3.20 x10 3/uL 1.0-3.8 N MONOCYTE # (test code = MO#) 0.66 x10 3/uL 0.1-0.8 N EOSINOPHIL # (test code = EO#) 0.06 x10 3/uL 0.0-0.2 N BASOPHIL # (test code = BA#) 0.04 x10 3/uL 0.0-0.2 N NUCLEATED RBC # (test code = NRBC#) 0.00 x10 3/uL 0.0-0.1 N MANUAL DIFF REQUIRED (test c ode = MDIFF) NO - US BIOPHYS [id number] 00:00:00 [facility] : 2000 Sex: F Name: LUIS EDMONDS [facility] Madeline Coffman : 2000 Age/S: 20 / F [address] [place] [address] Unit #: [id number] Loc: [place] [address] Phys: Effie Solitario MD Acct: [id number] Dis Date: Status: REG ER PHONE #: [phone] Exam Date: 03/12/202141 FAX #: [phone] Reason: Possible SROM,please evaluate ISMA EXAMS: CPT CODE: [id number] US BIOPHYS PROF [id number] PROCEDURE INFORMATION: Ex am: US Biophysical Profile With Non-Stress Test Exam [...] (56) Probe: PAGE 1 Signed ReportAMNISURE (ROM) [id number] 22:05:00* Test Item Value Reference Range Interpretation Comme nts AMNISURE (ROM) TEST (test co de = AMNI) NEGATIVE NEGATIVE URINALYSIS [id number] 21:48:00* Test Item Value Reference Range Interpretation Comme nts UA COLOR (test code = COLU) YELLOW YEL/STRAW UA APPEARANCE (test code = APPU) CLEAR CLEAR UA GLUCOSE DIPSTICK (test co de = DGLUU) NEGATIVE NEGATIVE UA BILIRUBIN DIPSTICK (test code = BILU) NEGATIVE NEGATIVE UA KETONE DIPSTICK (test cod e = KETU) NEGATIVE NEGATIVE UA SPECIFIC GRAVITY (test co de = SGU) 1.018 1.005-1.030 N UA BLOOD DIPSTICK (test code = KURTIS) NEGATIVE NEGATIVE UA PH DIPSTICK (test code = SHAINA) 6.0 5.0-7.0 N UA PROTEIN DIPSTICK (test co de = PROU) NEGATIVE NEGATIVE UA UROBILINIOGEN DIPSTICK (t est code = URO) 0.2 mg/dL 0.2-1.0 UA NITRITE DIPSTICK (test co de = BHUPENDRA) NEGATIVE NEGATIVE UA LEUKOCYTE ESTERASE DIPSTI CK (test code = LEUU) NEGATIVE NEGATIVE UA RBC (test code = RBCU) 0-3 RBC/HPF 0-3 UA WBC NO REFLEX (test code = WBCUCL) 0-3 WBC/HPF 0-3 UA BACTERIA (test code = BACU) TRACE /HPF NONE SEEN UA SQUAMOUS CELLS (test code = SQU) 0-5 /HPF NONE SEEN UA MUCUS (test code = MUCU) TRACE /LPF NONE SEEN URINALYSIS [id number] 07:00:00* Test Item Value Reference Range Interpretation Comme nts UA COLOR (test code = COLU) YELLOW YEL/STRAW UA APPEARANCE (test code = APPU) CLEAR CLEAR UA GLUCOSE DIPSTICK (test co de = DGLUU) NEGATIVE NEGATIVE UA BILIRUBIN DIPSTICK (test code = BILU) NEGATIVE NEGATIVE UA KETONE DIPSTICK (test cod e = KETU) NEGATIVE NEGATIVE UA SPECIFIC GRAVITY (test co de = SGU) 1.004 1.005-1.030 L UA BLOOD DIPSTICK (test code = KURTIS) NEGATIVE NEGATIVE UA PH DIPSTICK (test code = SHAINA) 7.0 5.0-7.0 N UA PROTEIN DIPSTICK (test co de = PROU) NEGATIVE NEGATIVE UA UROBILINIOGEN DIPSTICK (t est code = URO) 0.2 mg/dL 0.2-1.0 UA NITRITE DIPSTICK (test co de = BHUPENDRA) NEGATIVE NEGATIVE UA LEUKOCYTE ESTERASE DIPSTI CK (test code = LEUU) NEGATIVE NEGATIVE UA RBC (test code = RBCU) 0-3 RBC/HPF 0-3 UA WBC NO REFLEX (test code = WBCUCL) 4-9 WBC/HPF 0-3 A UA BACTERIA (test code = BACU) 3+ /HPF NONE SEEN A UA SQUAMOUS CELLS (test code = SQU) 0-5 /HPF NONE SEEN UA MUCUS (test code = MUCU) TRACE /LPF NONE SEEN - US BIOPHYS [id number] 00:00[facility]00 [facility] 2000 Sex: FName: LUIS EDMONDS [facility] : 2000 Age/S: 20 / F [address] [place] [address] Unit #:[id number] Loc: [place] [address] Phys: Effie Solitario MD Acct: [id number] Dis Date: Status: REG ER PHONE #: [phone] Exam Date: 03/01/20218 FAX #: [phone] Reason: decreased movements EXAMS: CPT CODE: [id number] US BIOPHYS PROF [id number] PROCEDURE INFORMATION: Exam: US Biophysical Profile With Non-Stress Test Exam date and time: 03/01/2021 7:32 AM Age: 20 years old Clinical indication: Other: Decreased movement; ; Additional info: Decreased fetalmovements TECHNIQUE: Imaging protocol: biophysical profile with non-stress [...] Technologist: Vilma Robles RDMS() Trnscb Date/Time: 03/01/2021 (08) [email or web address] Orig Print D/T: S: 03/01/2021 (0811) Probe: PAGE 1 Signed Report AMNISURE (ROM) [id number] 16:16:00* Test Item Value Reference Range Interpretation Comme nts AMNISURE (ROM) TEST (test co de = AMNI) NEGATIVE NEGATIVE [id number] 16:16:00* Test Item Value Reference Range Interpretation Comme nts FIBRONECTIN (test code = FFN) NEGATIVE NEGATIVE [id number] 20:50:00* Test Item Value Reference Range Interpretation Comme nts FIBRONECTIN (test code = FFN) NEGATIVE NEGATIVE URINALYSIS [id number] 20:32:00* Test Item Value Reference Range Interpretation Comme nts UA COLOR (test code = COLU) YELLOW YEL/STRAW UA APPEARANCE (test code = APPU) CLEAR CLEAR UA GLUCOSE DIPSTICK (test co de = DGLUU) NEGATIVE NEGATIVE UA BILIRUBIN DIPSTICK (test code = BILU) NEGATIVE NEGATIVE UA KETONE DIPSTICK (test cod e = KETU) NEGATIVE NEGATIVE UA SPECIFIC GRAVITY (test co de = SGU) 1.006 1.005-1.030 N UA BLOOD DIPSTICK (test code = KURTIS) NEGATIVE NEGATIVE UA PH DIPSTICK (test code = SHAINA) 6.0 5.0-7.0 N UA PROTEIN DIPSTICK (test co de = PROU) NEGATIVE NEGATIVE UA UROBILINIOGEN DIPSTICK (t est code = URO) 2.0 mg/dL 0.2-1.0 A UA NITRITE DIPSTICK (test co de = BHUPENDRA) NEGATIVE NEGATIVE UA LEUKOCYTE ESTERASE DIPSTI CK (test code = LEUU) NEGATIVE NEGATIVE UA RBC (test code = RBCU) 0-3 RBC/HPF 0-3 UA WBC NO REFLEX (test code = WBCUCL) 0-3 WBC/HPF 0-3 UA BACTERIA (test code = BACU) TRACE /HPF NONE SEEN UA SQUAMOUS CELLS (test code = SQU) 0-5 /HPF NONE SEEN UA MUCUS (test code = MUCU) TRACE /LPF NONE SEEN - US BIOPHYS [id number] 00:00:00 [facility] 2000 Sex: F Name: LUIS EDMONDS [facility] : 2000 Age/S: 20 / F [address] [place] [address] Unit #:[id number] Loc: [place] [address] Phys: Effie Solitario MD Acct: [id number] Dis Date: Status: REG ER PHONE #: [phone] Exam Date: 02/12/20212122 FAX #: [phone] Reason: Decreased movements EXAMS: CPT CODE: [id number] US BIOPHYS PROF [id number] PROCEDURE INFORMATION: Exam: US Biophysical Profile With Non-Stress Test Exam date and time: 02/12/2021 8:58 PM Age: 20 years old Clinical indication: Other: Decreased fm; ; Additional info: Decreased movementsTECHNIQUE: Imaging protocol: biophysical profile with non-stress test. [...] length is 3.5 cm. PAGE 1 Signed Report(CONTINUED) Name: LUIS EDMONDS [facility] : 2000 Age/S: 20 / F [address] [place] [address] Unit #: [id number] Loc: [place] [address] Phys: Effie Solitario MD Acct: [id number] Dis Date: Status: REG ER PHONE #: [phone] Exam Date: 02/12/20212122 FAX #: [phone] Reason:Decreased movements EXAMS: CPT CODE: [id number] US BIOPHYS PROF [id number] <Continued> at 2121 Reported and signed by: Geovanny Hughes D.O. CC: Technologist: Yuki Ray RDMS(AB)(OB) Trnscb Date/Time: 02/12/2021 (2121) [id number] Orig Print D/T: S: 02/12/2021 (0607) Probe: PAGE 2 Signed ReportURINALYSIS [id number] 03:25:00* Test Item Value Reference Range Interpretation Comme nts UA COLOR (test code = COLU) YELLOW YEL/STRAW UA APPEARANCE (test code = APPU) CLOUDY CLEAR A UA GLUCOSE DIPSTICK (test co de = DGLUU) NEGATIVE NEGATIVE UA BILIRUBIN DIPSTICK (test code = BILU) NEGATIVE NEGATIVE UA KETONE DIPSTICK (test cod e = KETU) NEGATIVE NEGATIVE UA SPECIFIC GRAVITY (test co de = SGU) 1.010 1.005-1.030 N UA BLOOD DIPSTICK (test code = KURTIS) NEGATIVE NEGATIVE UA PH DIPSTICK (test code = SHAINA) 7.0 5.0-7.0 N UA PROTEIN DIPSTICK (test co de = PROU) NEGATIVE NEGATIVE UA UROBILINIOGEN DIPSTICK (t est code = URO) 0.2 mg/dL 0.2-1.0 UA NITRITE DIPSTICK (test co de = BHUPENDRA) NEGATIVE NEGATIVE UA LEUKOCYTE ESTERASE DIPSTI CK (test code = LEUU) NEGATIVE NEGATIVE UA RBC (test code = RBCU) 0-3 RBC/HPF 0-3 UA WBC NO REFLEX (test code = WBCUCL) 4-9 WBC/HPF 0-3 A UA BACTERIA (test code = BACU) 1+ /HPF NONE SEEN A UA SQUAMOUS CELLS (test code = SQU) 0-5 /HPF NONE SEEN UA MUCUS (test code = MUCU) TRACE /LPF NONE SEEN - US [id number] 17:34:00 [facility] 2000 Sex: F Name: LUIS EDMONDS [facility] [place] : 2000 Age/S: 20 / F [address] [place] [address] Unit #: [id number] Loc: [place] [address] Phys: Pearl Chavez DO Acct: [id number] Dis Date: Status: REG ER PHONE #: [phone] Exam Date: 12/25/2020 1726 FAX #: [phone] Reason: h/o low ISMA, unsure if PROM, translabial cervic EXAMS: CPT CODE: [id number] LTD 83886 LIMITED ULTRASOUND INDICATION: with history of low amniotic fluid index. Unsure premature rupture of membranes. Translabial cervical length. Lower abdominal pain. Back pain. COMPARISON: 11/23/2020 ultrasound ULTRASOUND FINDINGS: Limited transabdominal ultrasound was performed. Gestation: Single: Yes Cardiac Motion: Yes (BPM):132-145 Presentation: Cephalic Placenta Location: Anterior Placenta Grade: 1 Placenta Previa: No Uterus/Cervix/Adnexa: The cervix measures 3.3 cm inlength. No anatomical survey was performed. Clinical: LMP= ? MA= 24 wks 4 days Ultrasound: MA= 24 wks 6 days MA MEAN BPD: 25 wks 2 days 6.2 cm HC/AC: 1.14 (1.04-1.22) HC: 24 wks 6 days 22.8 cmFL/AC: 22.42 (20%-24%) AC: 24 wks 5 days 20 cm FL/BPD: 72.16 (71%- 87%) FL: 24 wks 6 days 4.5 cm HUM: 24 wks 4 days 4 cm EFW: 730 +/- 109 gm LMP%: 48.5% ISMA (after 24 weeks): 13.6 cm S/D Ratio (after24 weeks): 2.6 IMPRESSION: Single viable intrauterine of estimated sonographic gestational age of 24 weeks 6 days. SL: SG-H PAGE 1 Signed Report (CONTINUED) Name: LUIS EDMONDS [facility] [place] : 2000 Age/S: 20 / F [address] [place] [address] Unit #: [id number] Loc: [place] [address] Phys: Pearl Chavez DO Acct: [id number] Dis Date: Status: REG ER PHONE #: [phone] ExamDate: 12/25/2020 172 FAX #: [phone] Reason: h/o low ISMA, unsure if PROM, translabial cervic EXAMS: CPT CODE: [id number] [place] L[place] 63739 <Continued> at 1734 Reported and signed by: Judah Izquierdo M.D. CC: Pearl Chavez DO Technologist: Merna Figueroa RDMS() Trnscb Date/Time: 12/25/2020 (1733) [email or web address] Orig Print D/T: S: 12/25/2020 (1736) Probe: PAGE 2 Signed Report AMNISURE (ROM) [id number] 17:14:00* Test Item Value Reference Range Interpretation Comme nts AMNISURE (ROM) TEST (test co de = AMNI) NEGATIVE NEGATIVE URINALYSIS [id number] 17:10:00* Test Item Value Reference Range Interpretation Comme nts UA COLOR (test code = COLU) MADHAVI YEL/STRAW A UA APPEARANCE (test code = APPU) TURBID CLEAR A UA GLUCOSE DIPSTICK (test co de = DGLUU) 1+ NEGATIVE A UA BILIRUBIN DIPSTICK (test code = BILU) NEGATIVE NEGATIVE UA KETONE DIPSTICK (test cod e = KETU) NEGATIVE NEGATIVE UA SPECIFIC GRAVITY (test co de = SGU) 1.016 1.005-1.030 N UA BLOOD DIPSTICK (test code = KURTIS) NEGATIVE NEGATIVE UA PH DIPSTICK (test code = SHAINA) 7.0 5.0-7.0 N UA PROTEIN DIPSTICK (test co de = PROU) NEGATIVE NEGATIVE UA UROBILINIOGEN DIPSTICK (t est code = URO) 0.2 mg/dL 0.2-1.0 UA NITRITE DIPSTICK (test co de = BHUPENDRA) NEGATIVE NEGATIVE UA LEUKOCYTE ESTERASE DIPSTI CK (test code = LEUU) NEGATIVE NEGATIVE UA RBC (test code = RBCU) 0-3 RBC/HPF 0-3 UA WBC NO REFLEX (test code = WBCUCL) 0-3 WBC/HPF 0-3 UA BACTERIA (test code = BACU) TRACE /HPF NONE SEEN UA SQUAMOUS CELLS (test code = SQU) 11-25 /HPF NONE SEEN A UA MUCUS (test code = MUCU) TRACE /LPF NONE SEEN UA AMORPHOUS SEDIMENT (test code = AMORU) 2+ /HPF NONE A DRUGS OF ABUSE SCREEN [id number] 17:07:00* Test Item Value Reference Range Interpretation Comme nts URN COCAINE (test code = COCAURN) NEGATIVE NEGATIVE URN CANNABINOIDS (test code = CANNABURN) NEGATIVE NEGATIVE URN AMPHETAMINE (test code = AMPHETURN) NEGATIVE NEGATIVE URN BARBITURATE (test code = BARBITURN) NEGATIVE NEGATIVE URN BENZODIAZEPINE (test code = BENZOURN) NEGATIVE NEGATIVE Cut-off v alue:200 ng/mL URN OPIATES (test code = OPIATURN) NEGATIVE NEGATIVE Cut-off value:20 00 ng/mL URN PHENCYCLIDINE (PCP) (test code = PHENCURN) NEGATIVE NEGATIVE Cutoffs:B arbiturates 200 ng/mLBenzodiazepines 200 ng/mLTHC Cannabinoids 50 ng/mLOpiates(Morphine) 2000 ng/mLAmphetamine 1000 ng/mLCocaine 300 ng/mLPCP phencyclidine 25 ng/mL Unconfirmed screening results shouldnot be used for non-medical purposes. - US PREG AFTER [id number] 02:47:00 [facility] : 2000 Sex: F Name: LUIS EDMONDS [facility] [place] : 2000 Age/S: 19 / F [address] [place], [place] [address]vd Unit #: [id number] Loc: [place] [address] Phys: Brittnee Ramirez MD Acct: [id number] Dis Date: Status: REG ER PHONE #: [phone] Exam Date: 11/23/2020 0144 FAX #: [phone] Reason: No PNC, bleeding,approximately 20 weeks EXAMS: CPT CODE: [id number] US PREG AFTER 1ST TRI 34618 EXAM: US, US PREG AFTER 1SR TRI: 11/23/2020, 0108 hours HISTORY: No PNC, bleeding, approximately 20 weeks TECHNIQUE: Sonographic evaluation is performed of the pelvis via transabdominal approach using grayscale, color flowand Doppler imaging when appropriate. COMPARISON: None available. [...] 2 days . 2. HEAD CIRCUMFERENCE - 16.78 cm : Avg = 19 weeks 3 [...] 1 Signed Report (CONTINUED) Name: LUIS EDMONDS [facility] [place] : 2000 Age/S: 19 / F [address] [place] [address] Unit #: [id number] Loc: [place] [address] Phys: Brittnee Ramirez MD Acct: [id number] Dis Date: Status: REG ER PHONE #: [phone] Exam Date: 11/23/2020 0144 FAX #: [phone] Reason: No PNC, bleeding, foodmlhbqngku21 weeks EXAMS: CPT CODE: [id number] US PREG AFTER TRI 69046 <Continued> seen. Cervical length is not visualized. IMPRESSION: Single live fetus in variable presentation. heart rate is140 bpm. 2. Sonographic EGA of 19 weeks 6 days and an sonographic DANY of 04/13/2021 +/- one standarddeviation. SL:[JSYED-H] at 0247 Reported and signed by: Jeromy Wolfe M.D. CC: Brittnee Ramirez MD Technologist: Maryam Anderson RDMS(BR)(AB) Trnscb Date/Time: 11/23/2020 (246) [email or web address] Orig Print D/T: S: 11/23/2020 (249) Probe: PAGE 2 Signed Report- US PREG AFTER [id number] 02:47:00 [facility] MADELINE BLUE DIAMONDName: LUIS EDMONDS : 2000 Sex: F Name: LUIS EDMONDS [facility] [place] : 2000 Age/S: 19 / F [address] [place] [address] Unit #: [id number] Loc: [place] [address] Phys: Brittnee Ramirez MD Acct: [id number] Dis Date: Status: DEP ER PHONE #: [phone] Exam Date: 11/23/2020 0144 FAX #: [phone] Reason: No PNC, bleeding, approximately 20 weeks EXAMS: CPT CODE: [id number] US PREG AFTER 1ST TRI 24706 EXAM: US, US PREG AFTER 1SR TRI: 11/23/2020, 0108 hours HISTORY: No PNC, bleeding, approximately 20 weeks TECHNIQUE: Sonographic evaluation is performed of the pelvis via transabdominal approach using grayscale, color flow and Doppler imaging when appropriate. COMPARISON: None available. FINDINGS: The examination shows a s clarisa fetus in variable presentation. Normal cardiac activity is noted at 140 per second. The amount of amniotic fluid is normal. The placenta is anterior, grade 1. There is no evidence of previa. The following measurements are obtained: 1. BPD - 439 cm : Avg = 19 weeks 2 days . 2. HEAD CIRCUMFERENCE - 16.78 cm : Avg = 19 weeks 3 days . 3. ABDOMINAL CIRCUMFERENCE - 15.25 cm : Avg = 20 weeks3 days . 4. FEMUR LENGTH - 3.07 [...] 1 Signed Report (CONTINUED) Name: LUIS EDMONDS [facility] [place] : 2000 Age/S: 19 / F [address] [place] [address] Blvd Unit #: [id number] Loc: [place] [address] Phys: Brittnee Ramirez MD Acct: [id number] Dis Date: Status: DEP ER PHONE #: Exam Date: 11/23/2020143 FAX #: [phone] Reason: No PNC, bleeding, approximately 20 weeks EXAMS: CPT CODE: [id number] US PREG AFTER 1ST TRI 95121 <Continued> seen. Cervical length is not visualized. IMPRESSION: Single live fetus in variable presentation. heart rate is 140 bpm. 2. Sonographic EGA of 19 weeks 6 days and an sonographic DANY of 04/13/2021 +/- one standard deviation. SL:[JSYED-H] at 0247 Reported and signed by: Jeromy Wolfe M.D. CC: Brittnee Ramirez MD Technologist: Maryam Anderson RDMS(BR)(AB)Trnscb Date/Time: 11/23/2020 (246) [email or web address] Orig Print D/T: S: 11/23/2020 (025) Probe: PAGE 2 Signed ReportURINALYSIS [id number] 01:40:00* Test Item Value Reference Range Interpretation Comme nts UA COLOR (test code = COLU) YELLOW YEL/STRAW UA APPEARANCE (test code = APPU) CLOUDY CLEAR A UA GLUCOSE DIPSTICK (test code = DGLUU) NEGATIVE NEGATIVE UA BILIRUBIN DIPSTICK (test code = BILU) NEGATIVE NEGATIVE UA KETONE DIPSTICK (test code = KETU) TRACE NEGATIVE A UA SPECIFIC GRAVITY (test code = SGU) 1.016 1.005-1.030 N UA BLOOD DIPSTICK (test code = KURTIS) NEGATIVE NEGATIVE UA PH DIPSTICK (test code = SHAINA) 7.0 5.0-7.0 N UA PROTEIN DIPSTICK (test code = PROU) NEGATIVE NEGATIVE UA UROBILINIOGEN DIPSTICK (test code = URO) 0.2 mg/dL 0.2-1.0 UA NITRITE DIPSTICK (test code = BHUPENDRA) NEGATIVE NEGATIVE UA LEUKOCYTE ESTERASE DIPSTICK (test code = LEUU) NEGATIVE NEGATIVE UA RBC (test code = RBCU) NONE SEEN RBC/HPF 0-3 UA WBC NO REFLEX (test code = WBCUCL) 0-3 WBC/HPF 0-3 UA BACTERIA (test code = BACU) TRACE /HPF NONE SEEN UA SQUAMOUS CELLS (test code = SQU) NONE SEEN /HPF NONE SEEN UA MUCUS (test code = MUCU) TRACE /LPF NONE SEEN UA AMORPHOUS SEDIMENT (test code = AMORU) 1+ /HPF NONE A DRUGS OF ABUSE SCREEN [id number] 01:40:00* Test Item Value Reference Range Interpretation Comme nts URN COCAINE (test code = COCAURN) NEGATIVE NEGATIVE URN CANNABINOIDS (test code = CANNABURN) NEGATIVE NEGATIVE URN AMPHETAMINE (test code = AMPHETURN) NEGATIVE NEGATIVE URN BARBITURATE (test code = BARBITURN) NEGATIVE NEGATIVE URN BENZODIAZEPINE (test code = BENZOURN) NEGATIVE NEGATIVE Cut-off v alue:200 ng/mL URN OPIATES (test code = OPIATURN) NEGATIVE NEGATIVE Cut-off value:20 00 ng/mL URN PHENCYCLIDINE (PCP) (test code = PHENCURN) NEGATIVE NEGATIVE Cutoffs:B arbiturates 200 ng/mLBenzodiazepines 200 ng/mLTHC Cannabinoids 50 ng/mLOpiates(Morphine) 2000 ng/mLAmphetamine 1000 ng/mLCocaine 300 ng/mLPCP phencyclidine 25 ng/mL Unconfirmed screening results shouldnot be used for non-medical purposes. CBC W/AUTO [id number] 01:27:00* Test Item Value Reference Range Interpretation Comme nts WHITE BLOOD CELL (test code = WBC) 11.0 x10 3/uL 6.0-17.0 N RED BLOOD CELL (test code = RBC) 3.39 x10 6/uL 4.2-5.4 L HEMOGLOBIN (test code = HGB) 10.1 g/dL 8.9-13.5 N HEMATOCRIT (test code = HCT) 31.7 % 31.0-41.0 N MEAN CELL VOLUME (test code = MCV) 93.5 fL 77.0-87.0 H MEAN CELL HGB (test code = MCH) 29.8 pg 25.0-29.0 H MEAN CELL HGB CONCETRATION (test code = MCHC) 31.9 g/dL 33.0-37.0 L RED CELL DISTRIBUTION WIDTH CV (test code = RDW) 13.1 % 11.5-14.5 N RED CELL DISTRIBUTION WIDTH SD (test code = RDW-SD) 44.7 fL 37.0-54.0 N PLATELET COUNT (test code = PLT) 298 x10 3/uL 150-400 N MEAN PLATELET VOLUME (test c ode = MPV) 10.1 fL 7.0-9.0 H NEUTROPHIL % (test code = NT%) 56.0 % 32.0-54.0 H IMMATURE GRANULOCYTE % (test code = IG%) 0.5 % 0.0-2.0 N LYMPHOCYTE % (test code = LY%) 34.6 % 28.0-48.0 N MONOCYTE % (test code = MO%) 7.8 % 3.0-15.0 N EOSINOPHIL % (test code = EO%) 0.6 % 1.0-8.0 L BASOPHIL % (test code = BA%) 0.5 % 0.0-2.0 N NUCLEATED RBC % (test code = NRBC%) 0.0 % 0-0 N NEUTROPHIL # (test code = NT#) 6.16 x10 3/uL 2.0-3.2 H IMMATURE GRANULOCYTE # (test code = IG#) 0.05 x10 3/uL 0.00-0.03 H LYMPHOCYTE # (test code = LY#) 3.81 x10 3/uL 1.0-3.8 H MONOCYTE # (test code = MO#) 0.86 x10 3/uL 0.1-0.8 H EOSINOPHIL # (test code = EO#) 0.07 x10 3/uL 0.0-0.4 N BASOPHIL # (test code = BA#) 0.06 x10 3/uL 0.0-0.2 N NUCLEATED RBC # (test code = NRBC#) 0.00 x10 3/uL 0.0-0.1 N MANUAL DIFF REQUIRED (test c ode = MDIFF) NO BASIC METABOLIC [id number] 02:51:00* Test Item Value Reference Range Interpretation Comme nts SODIUM (test code = NA) 138 mEq/L 134-147 N POTASSIUM (test code = K) 3.8 mEq/L 4.0-6.4 L CHLORIDE (test code = CL) 106 mEq/L 100-108 N CARBON DIOXIDE (test code = CO2) 23 mEq/l 21-33 N ANION GAP (test code = GAP) 13 0-20 N GLUCOSE (test code = GLU) 91 mg/dL 60-110 N BLOOD UREA NITROGEN (test co de = BUN) 5 mg/dL 7-18 L CREATININE (test code = CREAT) 0.4 mg/dL 0.2-0.5 N CALCIUM (test code = CA) 9.5 mg/dL 8.0-10.5 N HCG [id number] 02:51:00* Test Item Value Reference Range Interpretation Comme nts HCG SERUM (test code = HCG) 21461.3 0 - 6 NOT PREGNA NT > 6 SUGGESTIVE OF EARLY RISES TWO FOLD EVERY 2 DAYS; SUGGEST RECONFIRMING AFTER 2 DAYS. 150,000-200,[address] TRIMESTER 10,000 - 50,000 2ND & 3RD TRIMESTERResults in emanuel-International Units/mL URINALYSIS [id number] 02:39:00* Test Item Value Reference Range Interpretation Comme nts UA COLOR (test code = COLU) YELLOW YEL/STRAW UA APPEARANCE (test code = APPU) CLEAR CLEAR UA GLUCOSE DIPSTICK (test co de = DGLUU) NEGATIVE NEGATIVE UA BILIRUBIN DIPSTICK (test code = BILU) NEGATIVE NEGATIVE UA KETONE DIPSTICK (test cod e = KETU) 2+ NEGATIVE A UA SPECIFIC GRAVITY (test co de = SGU) 1.017 1.005-1.030 N UA BLOOD DIPSTICK (test code = KURTIS) 2+ NEGATIVE A UA PH DIPSTICK (test code = SHAINA) 5.0 5.0-7.0 N UA PROTEIN DIPSTICK (test co de = PROU) NEGATIVE NEGATIVE UA UROBILINIOGEN DIPSTICK (t est code = URO) 0.2 mg/dL 0.2-1.0 UA NITRITE DIPSTICK (test co de = BHUPENDRA) NEGATIVE NEGATIVE UA LEUKOCYTE ESTERASE DIPSTI CK (test code = LEUU) NEGATIVE NEGATIVE UA RBC (test code = RBCU) 0-3 RBC/HPF 0-3 UA WBC NO REFLEX (test code = WBCUCL) 0-3 WBC/HPF 0-3 UA BACTERIA (test code = BACU) TRACE /HPF NONE SEEN UA SQUAMOUS CELLS (test code = SQU) 0-5 /HPF NONE SEEN UA MUCUS (test code = MUCU) TRACE /LPF NONE SEEN CBC W/AUTO [id number] 02:21:00* Test Item Value Reference Range Interpretation Comme nts WHITE BLOOD CELL (test code = WBC) 12.5 x10 3/uL 6.0-17.0 N RED BLOOD CELL (test code = RBC) 3.85 x10 6/uL 4.2-5.4 L HEMOGLOBIN (test code = HGB) 11.7 g/dL 8.9-13.5 N HEMATOCRIT (test code = HCT) 35.4 % 31.0-41.0 N MEAN CELL VOLUME (test code = MCV) 91.9 fL 77.0-87.0 H MEAN CELL HGB (test code = MCH) 30.4 pg 25.0-29.0 H MEAN CELL HGB CONCETRATION (test code = MCHC) 33.1 g/dL 33.0-37.0 N RED CELL DISTRIBUTION WIDTH CV (test code = RDW) 13.5 % 11.5-14.5 N RED CELL DISTRIBUTION WIDTH SD (test code = RDW-SD) 45.8 fL 37.0-54.0 N PLATELET COUNT (test code = PLT) 259 x10 3/uL 150-400 N MEAN PLATELET VOLUME (test c ode = MPV) 10.3 fL 7.0-9.0 H NEUTROPHIL % (test code = NT%) 58.4 % 32.0-54.0 H IMMATURE GRANULOCYTE % (test code = IG%) 0.3 % 0.0-2.0 N LYMPHOCYTE % (test code = LY%) 33.4 % 28.0-48.0 N MONOCYTE % (test code = MO%) 6.3 % 3.0-15.0 N EOSINOPHIL % (test code = EO%) 1.1 % 1.0-8.0 N BASOPHIL % (test code = BA%) 0.5 % 0.0-2.0 N NUCLEATED RBC % (test code = NRBC%) 0.0 % 0-0 N NEUTROPHIL # (test code = NT#) 7.28 x10 3/uL 2.0-3.2 H IMMATURE GRANULOCYTE # (test code = IG#) 0.04 x10 3/uL 0.00-0.03 H LYMPHOCYTE # (test code = LY#) 4.17 x10 3/uL 1.0-3.8 H MONOCYTE # (test code = MO#) 0.78 x10 3/uL 0.1-0.8 N EOSINOPHIL # (test code = EO#) 0.14 x10 3/uL 0.0-0.4 N BASOPHIL # (test code = BA#) 0.06 x10 3/uL 0.0-0.2 N NUCLEATED RBC # (test code = NRBC#) 0.00 x10 3/uL 0.0-0.1 N MANUAL DIFF REQUIRED (test c ode = MDIFF) NO - US PREG [id number] 02:19:00 [facility] 2000 Sex: F Name: LUIS EDMONDS [facility] : 2000 Age/S: 19 / F [address] [place] [address] Bl Unit #: [id number] Loc: [place] [address] Phys: Nirav Nolan MD Acct: [id number] Dis Date: Status: REGER PHONE #: [phone] Exam Date: 10/05/2020209 FAX #: [phone] Reason: VB EXAMS: CPT CODE: [id number] US PREG 1ST TRIMTR 81445 STUDY: - DUP AB/PEL/SC/LTD, - US PREG 1ST TRIMTR 10/05/2020 1:17 AM Ordering Physician: Nirav Nolan MD Patient Name: LUIS EDMONDS MR: [id number] : 2000; Age: 19 years y/o Female [...] 0 days. PAGE 1Signed Report (CONTINUED) Name: LUIS EDMONDS [facility] : 2000 Age/S: 19 / F [address] [place] [address] Unit #: [id number] Loc: [place] [address] Phys: Nirav Nolan MD Acct: [id number] Dis Date: Status: REG ER PHONE #: [phone] Exam Date: 10/05/2020209 FAX #: [phone] Reason: VB EXAMS: CPT CODE: [id number] PREG 1ST TRIMTR 02857 <Continued> SL: TPAINTER-H at 0219 Reported and signed by: Abdias Avila M.D. CC: Elina Rome MD; Nirav Nolan MD Technologist: Maryam Anderson RDMS(BR)(AB) Trnscb Date/Time: 10/05/2020 (218) [email or web address] Orig Print D/T: S: 10/05/2020 (0222) Probe: PAGE 2 Signed Report- DUP AB/PEL/SC/[id number] 02:19:00 [facility] MADELINE COFFMANName: LUIS EDMONDS : 2000 Sex: F Name: LUIS EDMONDS [facility] Madeline Coffman : 2000 Age/S: 19 / F [address] [place] [address] Bl Unit #: [id number] Loc: [place] [address] Phys: Nirav Nolan MD Acct: [id number] Dis Date: Status: REGER PHONE #: [phone] Exam Date: 10/05/2020209 FAX #: [phone] Reason: see US PREG 1st TRIMTR EXAMS: CPT CODE: [id number] DUP AB/PEL/SC/LTD 44916 STUDY: - DUP AB/PEL/SC/LTD, - US PREG 1ST TRI MTR 10/05/2020 1:17 AM Ordering Physician: Nirav Nolan MD Patient Name: LUIS EDMONDS MR: [id number] : 2000; Age: 19 years y/o Female Clinical Indication: at 12 weeks with vaginal bleeding. Comparison: None TRANSABDOMINAL PELVIC ULTRASOUND: Technique: Grayscale, color, and Doppler transabdominal imaging of the pelvis was performed with standard technique. UTERUS: Mildly enlarged uterus measuring 12.0 x 8.0 x 9.5 cm without focal myometrial lesion. Well-formed single liveintrauterine with crown-rump length measuring 6.7 cm or 13 weeks 0 days with heart rate of 154 bpm. RIGHT OVARY AND ADNEXA: General: Normal size right ovary measuring 3.4 x 1.2 x 2.2cm containing subcentimeter follicles. Doppler: Normal low resistance arterial and venous blood flow is demonstrated. LEFT OVARY AND ADNEXA: General: Normal size left ovary measuring 2.6 x 1.3 x 1.8 cm containing subcentimeter follicles. Doppler: Normal low resistance arterial and venous blood flowis demonstrated. URINARY BLADDER: Normal for degree of distention present containing anechoic urine. FLUID: None. OTHER FINDINGS: None. IMPRESSION: Normal single live intrauterine at 13 weeks 0 days. PAGE 1 Signed Report (CONTINUED) Name: LUIS EDMONDS [facility] : 2000 Age/S: 19 / F [address] [place] [address] Blvd Unit #: [id number] Loc: [place] [address] Phys: Nirav Nolan MD Acct: [id number] Dis Date: Status: REG ER PHONE #: [phone] Exam Date: 10/05/2020209 FAX #: [phone] Reason: see US PREG 1st TRIMTR EXAMS: CPT CODE: [id number] DUP AB/PEL/SC/LTD 55848 <Continued> SL: TPAINTER-H at 0219 Reported and signed by: Abdias Avila M.D. CC: Elina Rome MD; Nirav Nolan MD Technologist: Maryam Anderson RDMS(BR)(AB) Trnscb Date/Time: 10/05/2020 (218) [email or web address] Orig Print D/T: S: 10/05/2020 (022) Probe: PAGE 2 Signed Report- DUP AB/PEL/SC/[id number] 22:07:00 [facility] 2000 Sex: F Name: LUIS EDMONDS [facility] [place] : 2000 Age/S: 19 / F [address] [place] [address] Unit #: [id number] Loc: [place] [address] Phys: Cathy Bruce Acct: [id number] Dis Date: Status: REG ER PHONE #: [phone] Exam Date: 08/22/20202199 FAX #: [phone] Reason: see US PREG 1st TRIMTR EXAMS: CPT CODE: [id number] DUP AB/PEL/SC/LTD 36270 PROCEDURE: FIRST TRIMESTER ULTRASOUND INDICATION: 6 weeks [...] Maryam Anderson RDMS(BR)(AB) Trnscb Date/Time: 08/22/2020 (2206) [email or web address] Orig Print D/T: S: 08/22/2020 (2209) Probe: PAGE 1 Signed Report- US PREG 1ST [id number] 22:07:00[facility] MADELINE COFFMANName: LUIS EDMONDS : 2000 Sex: F Name: LUIS EDMONDS [facility] Madeline Coffman : 2000 Age/S: 19 / F [address] [place] [address] Blvd Unit #:[id number] Loc: [place] [address] Phys: Cathy Bruce Acct: [id number] Dis Date: Status: REG ER PHONE #: [phone] Exam Date: 08/22/20202199 FAX #: [phone] Reason: 6w , cramping EXAMS: CPT CODE: [id number] US PREG 1ST TRIMTR 11002 PROCEDURE: FIRST TRIMESTER ULTRASOUND INDICATION: 6 weeks [...] of 6 weeks 4 days. SL: BALJINDER at 2207 Reportedand signed by: Judah Izquierdo M.D. CC: Elina Rome MD; Cathy MELO Technologist:Maryam Anderson RDMS(GOYO)(AB) Trnscb Date/Time: 08/22/2020 (2206) [email or web address] Orig Print D/T: S: 08/22/2020 (2209) Probe: PAGE 1 Signed ReportURINALYSIS [id number] 21:50:00* Test Item Value Reference Range Interpretation Comme nts UA COLOR (test code = COLU) STRAW YEL/STRAW UA APPEARANCE (test code = APPU) CLEAR CLEAR UA GLUCOSE DIPSTICK (test co de = DGLUU) NEGATIVE NEGATIVE UA BILIRUBIN DIPSTICK (test code = BILU) NEGATIVE NEGATIVE UA KETONE DIPSTICK (test cod e = KETU) NEGATIVE NEGATIVE UA SPECIFIC GRAVITY (test co de = SGU) 1.008 1.005-1.030 N UA BLOOD DIPSTICK (test code = KURTIS) NEGATIVE NEGATIVE UA PH DIPSTICK (test code = SHAINA) 6.0 5.0-7.0 N UA PROTEIN DIPSTICK (test co de = PROU) NEGATIVE NEGATIVE UA UROBILINIOGEN DIPSTICK (test code = URO) 0.2 mg/dL 0.2-1.0 UA NITRITE DIPSTICK (test co de = BHUPENDRA) NEGATIVE NEGATIVE UA LEUKOCYTE ESTERASE DIPSTI CK (test code = LEUU) NEGATIVE NEGATIVE UA RBC (test code = RBCU) 0-3 RBC/HPF 0-3 UA WBC NO REFLEX (test code = WBCUCL) 0-3 WBC/HPF 0-3 UA BACTERIA (test code = BACU) NONE SEEN /HPF NONE SEEN UA SQUAMOUS CELLS (test code = SQU) 0-5 /HPF NONE SEEN UA MUCUS (test code = MUCU) TRACE /LPF NONE SEEN BASIC METABOLIC [id number] 21:48:00* Test Item Value Reference Range Interpretation Comme nts SODIUM (test code = NA) 137 mEq/L 134-147 N POTASSIUM (test code = K) 3.4 mEq/L 4.0-6.4 L CHLORIDE (test code = CL) 104 mEq/L 100-108 N CARBON DIOXIDE (test code = CO2) 25 mEq/l 21-33 N ANION GAP (test code = GAP) 12 0-20 N GLUCOSE (test code = GLU) 95 mg/dL 60-110 N BLOOD UREA NITROGEN (test co de = BUN) 6 mg/dL 7-18 L CREATININE (test code = CREAT) 0.6 mg/dL 0.2-0.5 H CALCIUM (test code = CA) 9.9 mg/dL 8.0-10.5 N Is patient ? YHOW MANY WEEKS? 6 WEEKSHCG [id number] 21:48:00* Test Item Value Reference Range Interpretation Comme nts HCG SERUM (test code = HCG) 58356.6 0 - 6 NOT PREGNA NT > 6 SUGGESTIVE OF EARLY RISES TWO FOLD EVERY 2 DAYS; SUGGEST RECONFIRMING AFTER 2 DAYS. 150,000-200,[address] TRIMESTER 10,000 - 50,000 2ND & 3RD TRIMESTERResults in emanuel-International Units/mL Is patient ? YHOW MANY WEEKS? 6 WEEKSUR HCG [id number] 21:47:00* Test Item Value Reference Range Interpretation Comme nts UR HCG QUAL (test code = HCGQLU) POSITIVE NEGATIVE CBC W/AUTO [id number] 21:33:00* Test Item Value Reference Range Interpretation Comme nts WHITE BLOOD CELL (test code = WBC) 10.5 x10 3/uL 6.0-17.0 N RED BLOOD CELL (test code = RBC) 4.29 x10 6/uL 4.2-5.4 N HEMOGLOBIN (test code = HGB) 12.6 g/dL 8.9-13.5 N HEMATOCRIT (test code = HCT) 38.5 % 31.0-41.0 N MEAN CELL VOLUME (test code = MCV) 89.7 fL 77.0-87.0 H MEAN CELL HGB (test code = MCH) 29.4 pg 25.0-29.0 H MEAN CELL HGB CONCETRATION (test code = MCHC) 32.7 g/dL 33.0-37.0 L RED CELL DISTRIBUTION WIDTH CV (test code = RDW) 12.1 % 11.5-14.5 N RED CELL DISTRIBUTION WIDTH SD (test code = RDW-SD) 39.8 fL 37.0-54.0 N PLATELET COUNT (test code = PLT) 325 x10 3/uL 150-400 N MEAN PLATELET VOLUME (test c ode = MPV) 10.7 fL 7.0-9.0 H NEUTROPHIL % (test code = NT%) 61.9 % 32.0-54.0 H IMMATURE GRANULOCYTE % (test code = IG%) 0.3 % 0.0-2.0 N LYMPHOCYTE % (test code = LY%) 30.6 % 28.0-48.0 N MONOCYTE % (test code = MO%) 5.9 % 3.0-15.0 N EOSINOPHIL % (test code = EO%) 0.6 % 1.0-8.0 L BASOPHIL % (test code = BA%) 0.7 % 0.0-2.0 N NUCLEATED RBC % (test code = NRBC%) 0.0 % 0-0 N NEUTROPHIL # (test code = NT#) 6.51 x10 3/uL 2.0-3.2 H IMMATURE GRANULOCYTE # (test code = IG#) 0.03 x10 3/uL 0.00-0.03 N LYMPHOCYTE # (test code = LY#) 3.22 x10 3/uL 1.0-3.8 N MONOCYTE # (test code = MO#) 0.62 x10 3/uL 0.1-0.8 N EOSINOPHIL # (test code = EO#) 0.06 x10 3/uL 0.0-0.4 N BASOPHIL # (test code = BA#) 0.07 x10 3/uL 0.0-0.2 N NUCLEATED RBC # (test code = NRBC#) 0.00 x10 3/uL 0.0-0.1 N MANUAL DIFF REQUIRED (test c ode = MDIFF) NO CBC W/AUTO [id number] 21:31:00* Test Item Value Reference Range Interpretation Comme nts WHITE BLOOD CELL (test code = WBC) x10 3/uL 6.0-17.0 RED BLOOD CELL (test code = RBC) x10 6/uL 4.2-5.4 HEMOGLOBIN (test code = HGB) 12.6 g/dL 8.9-13.5 N HEMATOCRIT (test code = HCT) 38.5 % 31.0-41.0 N MEAN CELL VOLUME (test code = MCV) fL 77.0-87.0 MEAN CELL HGB (test code = MCH) pg 25.0-29.0 MEAN CELL HGB CONCETRATION ( test code = MCHC) g/dL 33.0-37.0 RED CELL DISTRIBUTION WIDTH CV (test code = RDW) % 11.5-14.5 PLATELET COUNT (test code = PLT) 325 x10 3/uL 150-400 N NEUTROPHIL % (test code = NT%) % 32.0-54.0 LYMPHOCYTE % (test code = LY%) % 28.0-48.0 NEUTROPHIL # (test code = NT#) x10 3/uL 2.0-3.2 LYMPHOCYTE # (test code = LY#) x10 3/uL 1.0-3.8 MANUAL DIFF REQUIRED (test c ode = MDIFF) Novel Coronavirus 2018 [id number] 14:50:00* Test Item Value Reference Range Interpretation Comme nts Novel Coronavirus 2019 nCoV (test code = COVID19) Negative Negative Performed by: [facility] [address] [facility], [address] [place] [address] CLIA#: [id number] Does patient have the clinical criteria consistent with COVID-19? YIs the patient going to be discharged home? Y- CT NECK W/WPHBOZEQ3350-77-33 02:35:00 Name: LUIS EDMONDS [facility] : 2000 Age/S: 19 / F [address] [place] [address] Unit #:[id number] Loc: [place] [address] Phys: Amilcar Pablo [employer] Acct: [id number] Dis Date: Status: REG ER PHONE #: [phone] Exam Date: 02/16/2020 0134 FAX #: [phone] Reason: R lymphadenopathy, throat pain, fever EXAMS: CPT CODE: [id number] CT NECK W/CONTRAST 58398 EXAM: CT, CT NECK W/CONTRAST: 02/16/2020, 0132 hours Clinical Indication: Right lymphadenopathy. Fever. Throat pain. Comparison: CTcervical spine 06/09/2018. Technique: CT of the neck [...] : The paranasal sinuses are clear without softtissue thickening or air-fluid levels. ORBITS: The visualized orbits are unremarkable. VASCULAR STRUCTURES: The jugular veins and carotid vessels are PAGE 1 Signed Report (CONTINUED) Name: LUIS EDMONDS [facility] : 2000 Age/S: 19 / F [address] [place] [address] Unit #: [id number] Loc: [place] [address] Phys: Amilcar Pablo [employer] Acct: [id number] Dis Date: Status: REG ER PHONE #: Exam Date: 02/16/2020 0134 FAX #: [phone] Reason: R lymphadenopathy, throat pain, fever EXAMS: CPT CODE: [id number] CT NECK W/CONTRAST 45673 <Continued> unremarkable. OSSEOUS STRUCTURES: There are no [...] infectious/inflammatory process, follow-up to resolution recommended. SL: JSYAZANH at 0235 Reported andsigned by: Jeromy Wolfe M.D. CC: Elina Rome MD; Amilcar Pablo NP Technologist:Josué Granado, RT(R)(CT); Natasha CTDI: DLP: Trnscb Date/Time: 02/16/2020 (234) t.JAMISONR.JS38 Orig Print D/T: S: 02/16/2020 (238) PAGE 2 Signed ReportCOMPREHENSIVE METABOLIC [id number] 00:12:00* Test Item Value Reference Range Interpretation Comme nts SODIUM (test code = NA) 134 mEq/L 134-147 N POTASSIUM (test code = K) 3.7 mEq/L 4.0-6.5 L CHLORIDE (test code = CL) 102 mEq/L 100-108 N CARBON DIOXIDE (test code = CO2) 26 mEq/L 21-33 N ANION GAP (test code = GAP) 10 0-20 N GLUCOSE (test code = GLU) 94 mg/dL 60-110 N BLOOD UREA NITROGEN (test co de = BUN) 10 mg/dL 7-18 N CREATININE (test code = CREAT) 0.6 mg/dL [...] 18 IUnit/L 15-65 N ALKALINE PHOSPHATASE TOTAL ( test code = ALKP) 70 IUnit/L 60-350 N MONO [id number] 00:09:00* Test Item Value Reference Range Interpretation Comme nts MONO SCREEN (test code = MONO) NEGATIVE NEGATIVE URINALYSIS [id number] 00:02:00* Test Item Value Reference Range Interpretation Comme nts UA COLOR (test code = COLU) YELLOW YEL/STRAW UA APPEARANCE (test code = APPU) CLEAR CLEAR UA GLUCOSE DIPSTICK (test co de = DGLUU) NEGATIVE NEGATIVE UA BILIRUBIN DIPSTICK (test code = BILU) NEGATIVE NEGATIVE UA KETONE DIPSTICK (test cod e = KETU) NEGATIVE NEGATIVE UA SPECIFIC GRAVITY (test co de = SGU) 1.015 1.005-1.030 N UA BLOOD DIPSTICK (test code = KURTIS) 2+ NEGATIVE A UA PH DIPSTICK (test code = SHAINA) 6.0 5.0-7.0 N UA PROTEIN DIPSTICK (test co de = PROU) NEGATIVE NEGATIVE UA UROBILINIOGEN DIPSTICK (t est code = URO) 0.2 mg/dL 0.2-1.0 UA NITRITE DIPSTICK (test co de = BHUPENDRA) NEGATIVE NEGATIVE UA LEUKOCYTE ESTERASE DIPSTI CK (test code = LEUU) NEGATIVE NEGATIVE UA RBC (test code = RBCU) 0-3 RBC/HPF 0-3 UA WBC NO REFLEX (test code = WBCUCL) 0-3 WBC/HPF 0-3 UA BACTERIA (test code = BACU) TRACE /HPF NONE SEEN UA SQUAMOUS CELLS (test code = SQU) 0-5 /HPF NONE SEEN UA MUCUS (test code = MUCU) 1+ /LPF NONE SEEN COMPREHENSIVE METABOLIC [id number] 00:02:00* Test Item Value Reference Range Interpretation Comme nts SODIUM (test code = NA) 134 mEq/L 134-147 N POTASSIUM (test code = K) 3.7 mEq/L 4.0-6.5 L CHLORIDE (test code = CL) 102 mEq/L 100-108 N CARBON DIOXIDE (test code = CO2) 26 mEq/L 21-33 N ANION GAP (test code = GAP) 10 0-20 N GLUCOSE (test code = GLU) 94 mg/dL 60-110 N BLOOD UREA NITROGEN (test co de = BUN) 10 mg/dL 7-18 N GLOMERULAR FILTRATION RATE ( test code = GFR) CREATININE (test code = CREAT) mg/dL 0.6-1.3 TOTAL PROTEIN (test code = PROT) g/dL 6.4-8.2 ALBUMIN (test code = ALB) 4.00 g/dL 3.4-5.0 N CALCIUM (test code = CA) 9.1 mg/dL 8.0-10.5 N BILIRUBIN TOTAL (test code = BILT) MG/DL <1.5 SGOT/AST (test code = AST) IUnit/L 15-37 SGPT/ALT (test code = ALT) IUnit/L 15-65 ALKALINE PHOSPHATASE TOTAL ( test code = ALKP) IUnit/L 60-350 CBC W/AUTO [id number] 23:59:00* Test Item Value Reference Range Interpretation Comme nts WHITE BLOOD CELL (test code = WBC) 12.19 x10 3/uL 4.5-13.0 N RED BLOOD CELL (test code = RBC) 4.24 x10 6/uL 4.2-5.4 N HEMOGLOBIN (test code = HGB) 12.1 g/dL 11.1-15.7 N HEMATOCRIT (test code = HCT) 37.9 % 34.0-44.0 N MEAN CELL VOLUME (test code = MCV) 89.4 fL 77.0-87.0 H MEAN CELL HGB (test code = MCH) 28.5 pg 26.0-30.0 N MEAN CELL HGB CONCETRATION (test code = MCHC) 31.9 g/dL 32.0-36.0 L RED CELL DISTRIBUTION WIDTH CV (test code = RDW) 14.1 % 11.5-14.5 N RED CELL DISTRIBUTION WIDTH SD (test code = RDW-SD) 45.7 fL 37.0-54.0 N PLATELET COUNT (test code = PLT) 220 x10 3/uL 150-400 N MEAN PLATELET VOLUME (test code = MPV) 10.8 fL 7.0-9.0 H NEUTROPHIL % (test code = NT%) 75.2 % 32.0-54.0 H IMMATURE GRANULOCYTE % (test code = IG%) 0.5 % 0.0-2.0 N LYMPHOCYTE % (test code = LY%) 13.9 % 28.0-48.0 L MONOCYTE % (test code = MO%) 10.0 % 3.0-15.0 N EOSINOPHIL % (test code = EO%) 0.0 % 1.0-8.0 L BASOPHIL % (test code = BA%) 0.4 % 0.0-2.0 N NUCLEATED RBC % (test code = NRBC%) 0.0 % 0-0 N NEUTROPHIL # (test code = NT#) 9.16 x10 3/uL 2.0-3.2 H IMMATURE GRANULOCYTE # (test code = IG#) 0.06 x10 3/uL 0.00-0.03 H LYMPHOCYTE # (test code = LY#) 1.70 x10 3/uL 1.0-3.8 N MONOCYTE # (test code = MO#) 1.22 x10 3/uL 0.1-0.8 H EOSINOPHIL # (test code = EO#) 0.00 x10 3/uL 0.0-0.4 N BASOPHIL # (test code = BA#) 0.05 x10 3/uL 0.0-0.2 N NUCLEATED RBC # (test code = NRBC#) 0.00 x10 3/uL 0.0-0.1 N MANUAL DIFF REQUIRED (test code = MDIFF) NO UR HCG [id number] 23:56:00* Test Item Value Reference Range Interpretation Comme nts UR HCG QUAL (test code = HCGQLU) NEGATIVE NEGATIVE Notes Date/Time Note Provider Source 2022-11-16 15:41:00 [id number] K3NDRzMUdx0cMFhvd2jCakKQcKN59 bHjmJq6KtY0vqr1gpZj8sPlkwsx2460-28-58C61:41:88552 1-[address] [place] [address] PATIENT NAME: LUIS EDMONDS ADMIT DATE: 10/30/22ACCOUNT NO: [id number] ROOM NO: [facility] AGE: 21 REPORT TYPE: 360 - QUERY RESPONSE DOCUMENT SEX: F ADMITTING PHYSICIAN:Luis Bucriaga MD ATTENDING PHYSICIAN:Luis Burciaga MD Provider Query QUERY TEXT: Clarification Pathology 360MD Query related questions should be directed to: [facility] Coding Query Hotline Based on your clinical judgment, can you confirm the diagnosis that represents the pathology finding(s) of [Insert pathology finding(s)]? Reporting of pathology findings require confirmation by the attending physician and/or surgeon. The patient's Clinical Indicators include:EGA at delivery (wks/days): 37 week-OB Delivery Note 10/31/2022Vaginal Delivery-OB Delivery Note 10/31/2022lacenta With Acute Chlorinitis and acute Vasculitis-Pathology ReportOptions provided:-- I am in agreement-- I am not in agreement-- Other - I will add my own diagnosis-- Dismiss - Not applicable / Not valid-- Dismiss - Clinically unable to determine / Unknown-- Assign to another provider QUERY RESPONSE: Yes, I am in agreement with the pathology finding(s) noted above. Query created by: FERDINAND LAROSE on 11/14/2022 7:54 AM at 1541 PATIENT NAME: LUIS EDMONDS noteG.[id number] for patient sogeWDUFQDIUDLKYLE0904-36-57T46:43:01 [facility] 2022-11-02 15:02:00 [id number] +w6ySuxPLRkIMroVOWI1uZqU7KEQ5 kwgHB8di6FX13QAdm8kz2AWzwsg3841-12-59M48:02:00 [facility])OB Disch PostpartumREPORT#:[id number] REPORT STATUS: SignedDATE:11/02/22 TIME: 1502 PATIENT: LUIS EDMONDS UNIT #: [id number]#: [id number] [address] AGE: 21 SEX: F ATTEND: Luis Burciaga [facility] AUTHOR: Luis Burciaga MD * ALL edits or amendments must be made on the electronic/computer document * Subjective SubjectiveAdmission EGA: Weeks: 37 Days: 0EGA at delivery (wks/days): 37 weeks (1d) Discharge Summary GeneralAssessment: nml progressHospital course: spontaneous labor, spontaneous vag delivery, nml postop/postpart careDischarge condition: stableDischarge to: Home/Self CareDischarge diagnosis: full-term uncomp deliveryDischarge management: less than 30 minsBaby A: Vaginal delivery: spontaneous status: live born Gender: malePlan: routine care, discharge today Discharge InstructionsInstructions: routine instr sheet givenDiet: Resume Home Diet/FeedsActivity: Resume Normal ActivityAdditional discharge routines: None at 1504 RPT #:[id number] OF REPORTCLClinical nzmi3264-00-86D74:02:00G.XRHC03277446-4168BIGjxhc able for patient hxwfPUVURYMLFBEWTA7855-78-63Z18:04:37 [facility] 2022-11-02 14:57:00 [id number] ISkpxgsdMStSpYIclzdg3r3kkJTfU wXCXGfpyiG1WKItP0ghaIfMIFAG8317-40-85F12:57:00 [facility] ([facility])OB Postpart Progr NoteREPORT#:[id number] REPORT STATUS: SignedDATE:11/02/22 TIME: 1457 PATIENT: LUIS EDMONDS UNIT #: [id number]#: [id number] [address] AGE: 21 SEX: F [facility] AUTHOR: Luis Burciaga MD * ALL edits or amendments must be made on the electronic/computer document * Subjective SubjectiveAdmission EGA: Weeks: 37 Days: 0EGA at delivery (wks/days): 37 weeks (1d)Status/Day: post (d2)Patient reports: Patient reports: Yes no complaints, Yes normal lochia, Yes pain management effective, Yes tolerating po well, Yes voiding well, Yes voiding without pain, Yes tolerating ambulation, Yes flatus Objective Nursing Documentation ReviewNursing Data:The data set between the solid lines has been imported from nursing documentation. Any exceptions have been noted below under Provider comments. Feeding preference: Post hemorrhage risk score: Low Risk for Hemorrhage. Provider comments on imported nursing data: [] GeneralVS:Vital Signs: Date Time Temp Pulse Resp B/P B/P Pulse O2 O2 Flow FiO2 Mean Ox Delivery Rate 11/01 1600 36.9 66 18 107/69 100 PATIENT WEIGHT: Weight (lb): Weight (oz): Weight (kg): Physical ExamAbdomen: soft, no abnormal tenderness, no guardingUterus: involution appropriate, non-tenderFundus: firm, below the umbilicusLochia: normalLower extremities: Edema: none Colleen's sign: negative Calf tenderness: negative Diagnosis, Assessment Plan Diagnosis, Assessment PlanAssessment: nml progressPlan: routine care, discharge today at 1500 RPT #:[id number] OF REPORTPRProgress bzyk6458-61-38P49:57:00G.BRDY85032918-5623VEQgisd able for patient nchfDYZLIQYONUXZTK9929-34-34B78:01:08 [facility] 2022-11-01 15:13:00 [id number] 2UiBPh+gyF8otB7bDGOrpNstXUFgy AogS9powxHxnrBwZV50JQrJe5UM6954-47-96D57:13:00 [facility] ([facility])OB Postpart Progr NoteREPORT#:[id number] REPORT STATUS: SignedDATE:11/01/22 TIME: 1513 PATIENT: LUIS EDMONDS UNIT #: [id number]#: [id number] [address] AGE: 21 SEX: F ATTEND: Luis Burciaga MDADM AUTHOR: Luis Burciaga MD * ALL edits or amendments must be made on the electronic/computer document * Subjective SubjectiveAdmission EGA: Weeks: 37 Days: 0Status/Day: post (d1)Patient reports: Patient reports: Yes no complaints, Yes normal lochia, Yes pain management effective, Yes tolerating po well, Yes voiding well, Yes voiding without pain, Yes tolerating ambulation, Yes flatus Objective Nursing Documentation ReviewNursing Data:The data set between the solid lines has been imported from nursing documentation. Any exceptions have been noted below under Provider comments. Feeding preference: Post hemorrhage risk score: Low Risk for Hemorrhage. Provider comments on imported nursing data: [] GeneralVS:Vital Signs: Date Time Temp Pulse Resp B/P B/P Pulse O2 O2 Flow FiO2 Mean Ox Delivery Rate 11/01 0800 [...] Weight (lb): Weight (oz): Weight (kg): Physical ExamAbdomen: soft, no abnormal tenderness, no guardingUterus: involution appropriate, non-tenderFundus: firm, below the umbilicusLochia: normal ResultFindings/Data:Laboratory Tests: 11/01 0545 Hematology WBC (4.5 - [...] % (Auto) (14.0 - 32.0 %) 25.7 Ashe % (Auto) (4.8 - 9.0 %) 9.7 H Eos % (Auto) (0.3 - 3.7 %) 0.8 Baso % (Auto) (0.0 - 2.0 %) 0.5 Neut # (Auto) (2.0 - 7.6 x10 3/uL) 7.76 H Lymph # (Auto) (1.0 - 3.8 x10 3/uL) 3.17 Ashe # (Auto) (0.1 - 0.8 x10 3/uL) 1.20 H Eos # (Auto) (0.0 - 0.2 x10 3/uL) 0.10 Baso # (Auto) (0.0 - 0.2 x10 3/uL) 0.06 Abs Immat Gran (auto) (0.00 - 0.03 x10 3/uL) 0.06 H Add Manual Diff NO Immature Gran % (0.0 - 2.0 %) 0.5 Nucleated RBC % (0 - 0 %) 0.0 Nucleated RBCs # (Man) (0.0 - 0.1 x10 3/uL) 0.00 Diagnosis, Assessment Plan Diagnosis, Assessment PlanAssessment: nml progressPlan: routine care at 1514 RPT #:[id number] OF REPORTPRProgress zqgg6406-84-20Y35:13:00G.LUUL44219593-0139XCHomqi able for patient jvbkTBGAFILKFKQVJK8547-25-89F57:14:52 [facility] 2022-10-31 15:14:00 [id number] hBS2No4kh/gst7pfCGFHkm2xZpgzD GMmzqAobECYXH7XKacrPFACC2Xs4193-76-06Q68:14:00 [facility] ([facility])DT History PhysicalREPORT#:[id number] REPORT STATUS: SignedDATE:10/31/22 TIME: 1514 PATIENT: LUIS EDMONDS UNIT #: [id number]#: [id number] [address] AGE: 21 SEX: F ATTEND: Luis Burciaga [facility] AUTHOR: Luis Burciaga MD * ALL edits or amendments must be made on the electronic/computer document * History PhysicalHistory PhysicalPatient seen and examined and care records reviewed with the following updates Laboratory Tests 10/30/221829:[Embedded Image Not Available]Laboratory Tests Test Result Date Time Hematology WBC [...] (14.0 - 32.0 %) 26.3 10/30 1830 Ashe % (Auto) (4.8 - 9.0 %) 9.6 H 10/30 1830 Eos % (Auto) (0.3 - 3.7 %) 0.6 10/30 1830 Baso % (Auto) (0.0 - 2.0 %) 0.3 10/30 1830 Neut # (Auto) (2.0 - 7.6 x10 3/uL) 6.27 10/30 1830 Lymph # (Auto) (1.0 - 3.8 x10 3/uL) 2.65 10/30 1829 Ashe # (Auto) (0.1 - 0.8 x10 3/uL) 0.97 H 10/30 1829 Eos # (Auto) (0.0 - 0.2 x10 3/uL) 0.06 10/30 1829 Baso # (Auto) (0.0 - 0.2 x10 3/uL) 0.03 10/30 1829 Abs Immat Gran (auto) (0.00 - 0.03 x10 3/uL) 0.08 H 10/30 1829 Add Manual Diff NO 10/30 1829 Immature Gran % (0.0 - 2.0 %) 0.8 10/30 1829 Nucleated RBC % (0 - 0 %) 0.0 10/30 1829 Nucleated RBCs # (Man) (0.0 - 0.1 x10 3/uL) 0.00 10/30 1829 Other Body Source Membrane Rupture (NEGATIVE) POSITIVE H 10/30 173 Serology RPR (NONREACTIVE) NONREACTIVE 10/30 1829 Hep Bs Antigen (NonReactive INDEX) NON REACTIVE 10/30 1829 HIV 1 2 Antibody Screen (Nonreactive) Nonreactive 10/30 1829 Home Medications:Medication Dose/Rte/Freq Days Qty Entered Last Max Daily Dose Reviewed PNV WITH 1 CAP PO DAILY 09/07/22 CA/IRON/FA/DHA 9 (PRENATE ESSENTIAL)Strength: 28 MG IRON-1 MG-300MG CAP DME - CRUTCHES 03/06/22 (CRUTCH SET) 1617Strength: 1 ITEM EACH NITROFURANTOIN/NITROFURAN 100 MG PO BID 7 14 09/27/22 MAC 1637 (MACROBID)Strength: 100 MG CAP NIFEdipine (PROCARDIA) 10 MG PO TID 30 90 09/27/22Strength: 10 MG CAP 1638 Current Hospital Medications:Anti-Infective Agents Sig/Victoriano Start time Last Medication Dose Route Stop Time Status Admin Penicillin G 5 MILLION.UN ASDIR 10/30 1829 CKD 10/31 Potassium IV 11/06 1828 1143 (PENICILLIN G POTASSIUM) Sodium Chloride 100 ML (SODIUM CHLORIDE 0.9% 100 ML) Penicillin G 50 ML Q4H 10/30 1829 AC 10/31 Potassium/Sodium IV 04/28 1829 0301 Chlor (Penicillin G 2.5MILL UNITS/NS 50ML) Antihistamine Drugs Sig/Victoriano Start time Last Medication Dose Route Stop Time Status Admin Diphenhydramine HCl 12.5 MG Q6H PRN PRN 10/31 034 AC (BENADRYL) IV 11/30 034 Autonomic Drugs Sig/Victoriano Start time Last Medication Dose Route Stop Time Status Admin Ephedrine Sulfate 10 MG ONCE PRN 10/31 034 AC (ePHEDrine sulfate) IV 11/30 034 Ephedrine Sulfate 25 MG ONCE PRN 10/31 034 AC (ePHEDrine sulfate) IM 11/30 034 Ephedrine Sulfate 10 MG ASDIR PRN 10/30 1830 AC (ePHEDrine sulfate) IV 11/29 182 Ephedrine Sulfate 25 MG ASDIR PRN 10/30 183 AC (ePHEDrine sulfate) IM 11/29 1829 Cardiovascular Drugs Sig/Victoriano Start time Last Medication Dose Route Stop Time Status Admin Hydralazine HCl 10 MG ASDIR PRN 10/30 1830 AC (APRESOLINE) IV 11/29 1829 Labetalol HCl 20 MG ASDIR PRN 10/30 [...] Naloxone HCl 0.1 MG ASDIR PRN 10/31 034 CKD (NARCAN) IV 11/30 034 Ropivacaine/Fentanyl/ 0 ASDIR 10/31 0345 AC 10/31 NS EPIDURAL 11/30 034 1025 (fentaNYL/ROP 200 MCG/0.125% 100ML CASSETTE) Butorphanol Tartrate 1 MG Q3H PRN PRN 10/30 1830 AC 10/30 (STADOL) IV 11/29 1829 2121 Ropivacaine/Fentanyl/ 0 ASDIR PRN 10/30 1830 AC NS EPIDURAL 11/29 1829 (fentaNYL/ROP 200 MCG/0.125% 100ML CASSETTE) Electrolytic, Caloric, And Gregor Sig/Victoriano Start time Last Medication Dose Route Stop Time Status Admin Citric Acid/Sodium 30 ML ONCE PRN 10/30 1830 AC Citrate PO 11/29 1828 (BICITRA ADULT DOSE) Lactated Ringer's 1,000 ML BOLUS PRN 10/30 1830 AC (LACTATED RINGERS) IV 11/29 182 Lactated Ringer's 1,000 ML .Q8H 10/30 183 AC 10/30 (LACTATED RINGERS) IV 11/29 1829 2314 Gastrointestinal Drugs Sig/Victoriano Start time Last Medication Dose Route Stop Time Status Admin Famotidine 20 MG ONCE PRN 10/30 183 AC 10/31 (PEPCID) IV 11/29 182 0838 Metoclopramide HCl 10 MG ONCE PRN 10/30 183 AC 10/31 (REGLAN) IV 11/29 182 0837 Mineral Oil 30 ML ASDIR PRN 10/30 1830 AC (MINERAL OIL) TOPICAL 11/29 182 Misoprostol 800 MCG ONCE PRN 10/30 1830 AC (miSOPROStoL) RECTAL 11/29 182 Ondansetron HCl 4 MG Q4H PRN PRN 10/30 1830 AC 10/31 (ZOFRAN) IV 11/29 1829 1425 [...] EPINEPHrine) Bupivacaine HCl 0 ASDIR PRN 10/30 1830 AC (BUPIVACAINE HCL) EPIDURAL 11/29 182 Oxytocics Sig/Victoriano Start time Last Medication Dose Route Stop Time Status Admin Oxytocin/Sodium 250 ML ASDIR 10/31 0730 AC 10/31 Chloride IV 11/30 0729 0751 (Oxytocin 15 units/ NS 250 mL) Carboprost 250 MCG ONCE PRN 10/30 1830 AC Tromethamine IM 051828 (HEMABATE) Methylergonovine 0.2 MG ONCE PRN 10/30 1829 AC Maleate IM 11/29 1828 (METHERGINE) Oxytocin/Sodium 333.33 ML BOLUS PRN 10/30 1829 AC Chloride IV 11/29 1828 (Oxytocin 15 units/ NS 250 mL) Pharmaceutical Aids Sig/Victoriano Start time Last Medication Dose Route Stop Time Status Admin Sterile Water 10 ML ASDIR PRN 10/31 344 AC (WATER FOR INJECTION) EPIDURAL 12/01 343 Vital Signs: Date Time Temp Pulse Resp B/P B/P Pulse O2 O2 Flow FiO2 Mean Ox Delivery Rate 10/31 1457 [...] 1202 82 97 10/31 1157 68 99 04/15 1152 62 99 04/15 1148 72.0 04/15 1148 73 97/54 04/15 1147 70 98 04/15 1142 74 99 04/15 1137 75 98 04/15 1132 68 98 04/15 1129 72.0 04/15 1129 65 99/53 04/15 1127 68 97 04/15 1122 62 98 04/15 1118 65.0 04/15 1118 68 89/47 04/15 1117 71 97 04/15 1112 68 98 04/15 1107 70 98 04/15 1102 66 98 04/15 1057 79 100 04 1052 79 100 04/15 1051 16 0415 1048 79.0 04/15 1048 68 111/56 04 1047 71 100 04/ 1046 16 10/31 1042 82.0 04 1042 91 115/59 100 04/ 1041 16 10/31 1037 82.0 04/ 1037 87 112/57 100 04/ 1036 16 10/31 1032 81.0 10/31 1032 92 120/56 100 04/15 1031 17 15 1028 78.0 / 1028 82 119/61 10/31 1027 84 100 04/15 1022 74 100 04/15 1021 17 0415 1021 81.0 /15 1021 68 117/59 04 1017 76 100 04/15 1012 75 100 /15 1007 96 100 04/15 0955 84 100 04/15 0715 36.7 17 04/15 0646 37.0 89 91 04/15 0641 73 98 04/15 0305 74.0 04/15 0305 83 100/58 04/15 0201 37.3 04/15 0040 84 100 04/15 0035 93 100 04/15 0031 95 91 04/15 0030 102 100 04/15 0025 84 100 04/15 0020 90 100 04/15 0015 91 100 /15 0010 101 99 /15 0005 93 100 04/15 0000 89 100 /14 2357 84.0 0414 2357 93 117/66 04/14 2356 36.9 0414 2355 88 100 0414 2350 90 100 14 2349 90 91 10/30 2345 83 100 04/14 2340 89 98 10/30 2335 100 99 [...] 1725 139 117/55 98 at 1514 RPT #:[id number] OF REPORTHPHistory and physical zpgsmxxxjlz8709-50-02E68:14:00G.QJOC43774060-2523 AVAvailable for patient iqcoCLAEKLCPDSDPES8656-19-53D90:15:04 [facility] 2022-10-31 15:12:00 [id number] pL5mQ9ifcRy/WUOnwtC3/rAeMKnSL xQdH86M11JlFZh7hkUBNkdCq+nV5453-29-99F61:12:00 [facility] ([facility])OB Delivery NoteREPORT#:[id number] REPORT STATUS: SignedDATE:10/31/22 TIME: 1512 PATIENT: MARIAM,LUIS UNIT #: [id number]#: [id number] [address] AGE: 21 SEX: F ATTEND: Luis Burciaga MDADM AUTHOR: Luis Burciaga MD * ALL edits or amendments must be made on the electronic/computer document * OB Delivery Nursing Documentation ReviewNursing data:The data set between the solid lines has been imported from nursing documentation. Any exceptions have been noted below under Provider comments. ROM date: 10/30/22 ROM time: 1710Membranes rupture method: AROMAmniotic fluid color: ClearAmniotic fluid amount: Steroids prior to arrival: Antibiotic prophylaxis given: Post hemorrhage risk score: Low Risk for Hemorrhage. Delivery date infant A: Delivery time infant A: Birthweight (gm) infant A: Weight (lb) infant A: Weight (oz) A: Gender A: 1 minute A: 5 minutes A: 10 minutes A: Cord pH obtained A: Vacuum time A: Vacuum # pulls A: Vacuum # popoffs A: QBL at delivery: Provider comments on imported nursing data: [] Pre-deliveryGBS status: GBS status: unknown Prophylaxis administered: penicillinNewborn evaluation at delivery: NRP certified personnelAdmission EGA: Weeks: 37 Days: 0EGA at delivery (wks/days): 37 weeks (1d)Admission indication:active labor Blood Loss/DetailsBlood loss at delivery: 50 Baby A InformationBaby A information Delivery date: 10/31/22 status: live born Gender: male Presentation: vertexABG details Baby A Cord blood gases: collectedNuchal cord Baby A Nuchal cord: no Vaginal Delivery Vaginal DeliveryVaginal delivery: Labor: spontaneous Medications/Devices used: oxytocin Vaginal delivery: spontaneous Amniotic fluid: clear Anesthesia type: epidural anesthesia Episiotomy: none Placenta: spontaneous, intact, sent to pathology Post delivery meds used: oxytocin Count: correct Mother's condition: mother stable Infant's condition: infant stable in room at 1514 RPT #:[id number] OF REPORTCLClinical [id number]:12:00G.[id number] able for patient [id number]:14:24 [facility] 2022-09-27 16:38:00 [id number]/[id number] [id number]:38:00 [facility] Dis[facility] UndeliveredREPORT#:[id number] REPORT STATUS: SignedDATE:09/27/22 TIME: 1638 PATIENT: BI EDMONDS UNIT #: [id number]#: [id number] [address] AGE: 21 SEX: F ATTEND: Luis Burciaga [facility] AUTHOR: Effie Marquez MD * ALL edits or amendments must be made on the electronic/computer document * Subjective SubjectiveAdmission EGA: Weeks: 32 Days: 1Current EGA weeks/days: 32 week Free Text Subj NotesFree Text Subj Notes:She refers good movements and denies any gush of vaginal fluids, vaginal bleeding. Objective GeneralVS:Last Documented: Result Date Time B/P Mean 77.0 09/27 1245 B/P 119/58 09/27 1245 Temp 98.1 / 1245 Pulse 96 / 1245 Resp 18 09/27 1245 Pulse Ox 93 09/26 2230 Vital Signs Date Temp Pulse Resp B/P B/P Mean Pulse Ox FiO2 09/26-09/27 98.1 82-96 18 99-119/55-58 73.0-79.0 93 PATIENT WEIGHT: Weight (lb): Weight (oz): Weight (kg): Objective GeneralVS/I O:Vital Signs Date Temp Pulse Resp B/P B/P Mean Pulse Ox FiO2 09/26-09/27 98.1 82-96 18 99-119/55-58 73.0-79.0 93 Last Documented: Result Date Time B/P Mean 77.0 09/27 1245 B/P 119/58 09/27 1245 Temp 98.1 09/27 1245 Pulse 96 09/27 1245 Resp 18 09/27 1245 Pulse Ox 93 09/26 2230 Vital Signs: Date Time Temp Pulse Resp B/P B/P Pulse O2 O2 Flow FiO2 Mean Ox Delivery Rate 09/27 1245 77.0 09/27 1245 98.1 96 18 119/58 09/27 0708 75.0 09/27 0708 91 105/55 09/27 0319 73.0 09/27 0319 88 99/57 09/26 2230 82 93 09/26 2229 79.0 09/26 2228 84 110/58 PATIENT WEIGHT: Weight (lb): Weight (oz): Weight (kg): Free Text Obj NotesFree Text Obj Notes:Gen: [id number]: normal respiratory effortNeuro: Exam: alert, oriented o2Yvzyojd: gravid, soft Uterine activity: Monitor: toco Frequency (description): None Frequency (minutes): CONSTRUCTION HELPER: Normal exteral genitalia Cervical/ exam: Dilatation (cm): 1 Effacement (%): 50 station: -3 Presentation: Membrane status: FHR evaluation: FHR category: category I Discharge Undelivered GeneralProblem List/A P: 1. 32 weeks gestation of Free Text A P:IUP 32 07/25+FFN Patient was admitted last night due to +FFN. She was evaluated by MFM who recommended discharge home. No cervical change. Will discharge home on Macrobid for UTI and procardia. Patent found to be hemodynamically stable with normal vital signs, category I strip and found not to be in labor. 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 Assessment: no evidence laborImpression: reactive NSTPlan: discharge homePlan discussed with: patient, nurseAdmission diagnosis: false laborHospital course:She was admitted for observation due to +FFNDischarge to: Home/Self CareDischarge diagnosis: false labor Discharge InstructionsDiet: RegularAdditional Discharge Routines: PCP Follow-UpPrescriptions:Continue taking these medications:PNV WITH CA/IRON/FA/DHA (PRENATE ESSENTIAL) 28 MG IRON-1 MG-300 MG CAP 1 CAPSULE ORAL DAILY. Start taking the following new medications:NITROFURANTOIN/NITROFURAN MAC (MACROBID) 100 MG CAP 100 MILLIGRAM ORAL TWICE DAILY. Days = 7 Qty = 14 No Refills NIFEdipine (PROCARDIA) 10 MG CAP 10 MILLIGRAM ORAL THREE TIMES A DAY. Days = 30 Qty = 90 No Refills PCP follow-up: PCP: Luis Burciaga MD PCP follow up timeframe: In 1-[address] [place] [address] #:[id number] OF REPORTCLClinical yhze7357-96-01B96:38:00G.HVEW60801720-5602CCIcrhe able for patient nnzkALGVVIVPOUJXJK8237-56-19H19:53:14 [facility] 2022-09-27 10:39:00 [id number] ZNA/opJilC9YcIZJ0D1rwN7ZXPGkK QjwK4aJJ2+WtT5DwT0tasy1K1474467-41-05U36:39:00 [facility] ([facility])OB Antepartum Prog NoteREPORT#:[id number] REPORT STATUS: SignedDATE:09/27/22 TIME: 1039 PATIENT: BI EDMONDS UNIT #: [id number]#: [id number] [facility]DOB: [birth year] AGE: 21 SEX: F ATTEND: Luis Burciaga [facility] AUTHOR: Effie Marquez MD * ALL edits or amendments must be made on the electronic/computer document * Subjective SubjectiveAdmission EGA: Weeks: 32 Days: 1 Free Text Subj NotesFree Text Subj Notes:She refers good movements and denies any gush of vaginal fluids, vaginal bleeding. Review of SystemsAdditional notes:Constitutional:Denies: chills, fatigue, fever, generalized weakness, lethargy, malaise. Respiratory:Denies: productive cough (sputum), SOB. GI:Denies: abdominal pain, constipation, diarrhea, nausea, vomiting. :Denies: urgency, vaginal bleeding. Neuro:Denies: headache Objective Nursing Documentation ReviewNursing data:The data set between the solid lines has been imported from nursing documentation. Any exceptions have been noted below under Provider comments. ROM date: ROM time: Labor onset date: Labor onset time: Provider comments on imported nursing data: [] Objective GeneralVS/I O:Vital Signs Date Temp Pulse Resp B/P B/P Mean Pulse Ox FiO2 /-09/27 98.1 82-96 18 99-119/55-58 73.0-79.0 93 Last Documented: Result Date Time B/P Mean 77.0 09/27 1245 B/P 119/58 09/27 1245 Temp 98.1 09/27 1245 Pulse 96 09/27 1245 Resp 18 09/27 1245 Pulse Ox 93 09/26 2230 Vital Signs: Date Time Temp Pulse Resp B/P B/P Pulse O2 O2 Flow FiO2 Mean Ox Delivery Rate 09/27 1245 77.0 09/27 1245 98.1 96 18 119/58 09/27 0708 75.0 09/27 0708 91 105/55 09/27 0319 73.0 09/27 0319 88 99/57 09/26 2230 82 93 09/26 2229 79.0 09/26 2229 84 110/58 PATIENT WEIGHT: Weight (lb): Weight (oz): Weight (kg): Free Text Obj NotesFree Text Obj Notes:Gen: DZFb4Tdxyu: normal respiratory effortNeuro: Exam: alert, oriented u9Eyzjycb: gravid, soft Uterine activity: Monitor: toco Frequency (description): none Frequency (minutes): CONSTRUCTION HELPER: Normal exteral genitalia Cervical/ exam: Dilatation (cm): 1 Effacement (%): 50 station: -3 Presentation: Membrane status: FHR evaluation: FHR category: category I Diagnosis, Assessment Plan Diagnosis, Assessment PlanFree text A P:IUP 32 07/25 FFN + Patient found stable, patient evaluated by MFM, he recommends discharge home if no cervical change. Will check her this afternoon. at 1950 RPT #:[id number] OF REPORTPRProgress bzah9964-19-26X22:39:00G.CXLC87289882-7422OXMmklv able for patient axpzGXQLVCUJSHHYVA1157-84-78M66:52:44 [facility] 2022-09-27 09:19:00 [id number]/[facility] oHTSlIvMy0bVJO1Db3lYWPEz8OrJe 3D9z5J67Yb5MdT73rwOQQT24dFf6486-07-81V00:19:00 [facility] ([facility])MFM Consultation NoteREPORT#:[id number] REPORT STATUS: SignedDATE:09/27/22 TIME: 918 PATIENT: BI EDMONDS UNIT #: [id number]#: [id number] [address] AGE: 21 SEX: F ATTEND: Luis Burciaga MDADM AUTHOR: Kahlil Moore MD * ALL edits or amendments must be made on the electronic/computer document * History of Present Illness HPIRequesting clinician: HospitalistReason for consult:Thr PTL History Nursing Documentation ReviewNursing data:The data set between the solid lines has been imported from nursing documentation. Any exceptions have been noted below under Provider comments. Prior historyGravida: 2 Para: 1 Term: : Abortions spontaneous: Abortions induced: Living children: Ectopic: Stillbirths: Live births: deaths: Number of previous C/S: Current dataEDC: 11/20/22EGA (weeks/days): 32.1EGA at admit (weeks): EGA at delivery (weeks): 32Steroids prior to arrival: Antibiotic prophylaxis given: ROM date: ROM time: Labor onset date: Labor onset time: Reported maternal labs/dataBlood type: Rh type: Rubella: Hepatitis B: HIV exposure test: VDRL: Sexually transmitted diseases: Gonorrhea: Syphilis: Herpes simplex type 1 2: Chlamydia: Condyloma: Human papillomavirus: Group B beta strep: Rho(D) immune globulin this preg: Monitor mode - UA: [place] units: Feeding preference: Delivery dataDelivery date A: Delivery time A: Birthweight (gm) infant A: Weight (lb) A: Weight (oz) A: Gender infant A: 1 minute A: 5 minutes infant A: 10 minutes A: Cord pH obtained A: Vacuum time infant A: Vacuum # pulls A: Vacuum # popoffs A: Provider comments on imported nursing data: [] Past HistoryPast family history:FATHER (Heart dz. DM).MOTHER (Cervical CA. Mult sclerosis. Osteoporosis. Arthritis).GRANDMOTHER (MGM +DM).GRANDFATHER (PGF +DM). Allergies:Uncoded Allergies:MARCUS ACID- THROAT SWELLING (Severe, 08/03/22) Review of SystemsGU:Denies: dysuria, flank pain, frequency, hematuria, nocturia, pelvic pain, , urgency, urinary retention, vaginal bleeding, vaginal discharge. All systems rev neg: except as marked Objective Physical ExamVS/I O:Last Documented: Result Date Time B/P Mean 75.0 09/27 0708 B/P 105/55 09/27 0708 Pulse 91 09/27 0708 Pulse Ox 93 09/26 2230 Temp 36.7 09/26 185 Resp 18 09/26 185 PATIENT WEIGHT: Weight (lb): Weight (oz): Weight (kg): ResultsFindings/Data:Laboratory Tests 09/26 1924 Miscellaneous Fibronectin (NEGATIVE) POSITIVE [...] pH (5.0 - 7.0) 5.0 Ur Specific [place] (1.005 - 1.030) 1.033 H Urine Protein [...] COMP VAGINAL Diagnosis, Assessment Plan Diagnosis, Assessment PlanFree Text A P:MFM ConsultationPt seen and evaluatedIsabellmarlene is a 21yo at 32w2d (EDC 11/20/2022) admitted for Thr PTL yesterday. Cx apparently 1 cmShe is feeling well Denies LOF, CTX or VB currently Reports good FM Earlier admission last month for possible PPROM but ruled out. PNC - significant for short interval PMH - nonePSH - noneObHx - at term, had elevated BPs at termSocHx - neg r5CGPJMdyk - PNV AF VSS NST: 120-130, mod eddie, + accels, cat I labs reviewed US today: cephalic, ant. placenta, EFW = 4lb 11oz (68%ile), nl range ISMA = 9.8cm, nl BPP 8/8, nl umb. art. Dopplers and MCA Doppler A/P 21yo at 32w2d (EDC 11/20/2022) - Threatened PTL Contractions appear to have abated. surveillance reassuring. FFN +. I would hold on ANCS at this juncture as delivery within the next 7 days appear unlikely. If her SVE remains stable at 24 hour, she may be considered for DC. Questions addressed. - Short Interval will cont. to follow - Hx of PIH in Prior Pregnancyper report today no evidence of PIH at presentwill monitor Thank you for sharing in the care of your patient!Will cont. to follow with you closelyFloor time 50min at 0927 RPT #:[id number] OF REPORTRFIkhnfpywfulv3304-72-22D50:19:00G.PDOC2 [id number] for patient bsleVOCBIEITLEAZDF5072-05-34W07:28:02 [facility] 2022-09-27 05:02:00 [id number]+LVv6HJ JX1Zc8yxEB2UQxLRjK3asiOy4zbnL Bn6lIFXCX2Y7LdNbj5sqSe1I0ZR2451-43-32H78:02:00 [facility] PREPORT#:[id number] REPORT STATUS: SignedDATE:09/27/22 TIME: 0502 PATIENT: BI EDMONDS UNIT #: [id number]#: [id number] [address] AGE: 21 SEX: F ATTEND: Luis Burciaga MDADM AUTHOR: Zoila Gomez DO * ALL edits or amendments must be made on the electronic/computer document * OB HistoryChief complaint: uterine contractions, decreased movementHPI:11 yo EDC 11-20-22 presented to [facility] at 32 1/7wks complained of cramping painat suprapubic area since last week and decreased FM today.+Lower back pain. Patient was admitted for +Amnisure at 29+wks on 09-07-22. Repeat Amnisure on 09-12-22 was negative and pt discharged home on 09-14-22. Pt did not have f/u with MFM since DC home from the hospital.Received 2 doses of steroid on 09-08-22 and 09-09-22.PN care by Dr Burciaga.Due to +FFN today with Cx 1+/50/-3, will admit for 23h observation.Current : Admission EGA (weeks) 32 Admission EGA (days) 1 Past HistoryPast Medical History:Reports: Asthma. Additional Surgical History:tonsilectomyAdditional Family HistoryFATHER (Heart dz. DM).MOTHER (Cervical CA. Mult sclerosis. Osteoporosis. Arthritis).GRANDMOTHER (MGM +DM).GRANDFATHER (PGF +DM).Alcohol Use Denies EtOH useDrug Use Denies recreational drugsSmoking status for patients 13 years old or older: Never SmokerAllergies:Uncoded Allergies:MARCUS ACID- THROAT SWELLING (Severe, 08/03/22) Objective GeneralVS:Last Documented: Result Date Time B/P Mean 73.0 09/27 0319 B/P 99/57 09/27 0319 Pulse 88 09/27 031 Pulse Ox 93 09/26 2230 Temp 98.1 09/26 1859 Resp 18 09/26 1859 Vital Signs Date Temp Pulse Resp B/P B/P Mean Pulse Ox FiO2 09/26-09/27 98.1 82-123 18 99-112/57-66 73.0-82.0 93-98 PATIENT WEIGHT: Weight (lb): Weight (oz): Weight (kg): Physical ExamBreasts: deferredNeuro: Exam: alert, oriented x3, normal speechAbdomen: gravid, soft, no abnormal tendernessUterine activity: Monitor: toco Frequency (description): noneCervical/ exam: Dilatation (cm): 1+/50/-3. Vtx. Memb intactLower extremities: Edema: noneBaby A: Baby A baseline: 135 bpm Baby A variability: moderate 6-25 bpm Baby A accelerations: 15 X 15 Baby A decelerations: none Baby A FHR category: category 1 ResultsFindings/Data:Laboratory Tests: Wet Prep negative for Yeast, BV, Trich 09/26 09/26 2100 1925 Miscellaneous Fibronectin (NEGATIVE) POSITIVE H Other Body [...] pH (5.0 - 7.0) 5.0 Ur Specific [place] (1.005 - 1.030) 1.033 H Urine Protein [...] 1924 Wet Prep - COMP VAGINAL Recent Impressions:ULTRASOUND - US BIOPHYS PROF 09/26 2004 Report Impression - Status: SIGNED Entered: 09/26/20222113 IMPRESSION:1. Single living intrauterine in cephalic position.2. biophysical profile score of 8/8.SL: 131. Impression By: Karoline - Malcolm Wilson M.D.ULTRASOUND - US PREG AFTER TRI 09/26 2004 Report Impression - Status: SIGNED Entered: 09/26/20222116 IMPRESSION: 1. Single viable intrauterine gestation in cephalic presentation. 2. Normal growth concordant with dates. 3. Normal biophysical profile. Impression By: [email or web address] - Jeromy Wolfe M.D. Diagnosis, Assessment Plan Diagnosis, Assessment PlanComments:Impression:1. IUP at 32 2/7wks2. +FFN3. Adv cervical dilation Plan:1. Phone consult called to [facility], Dr Judge. No Celestone is needed ( last course of steroid was given 3+ wk ago on 09-08-22 and 09-09-22 ).No MgSO4 is needed at 32 1/7wks with no contractions.2. Admit for 23h observation.3. Will recheck cx in AM. If no contraction or cervical change, will DC home. at 0512 RPT #:[id number] OF REPORTHPHistory and physical elacsyvzpqg7368-97-69A66:02:00G.[id number] AVAvailable for patient foxbTCUHKZQKXNSESZ1317-66-03M59:12:22 [facility] 2022-09-26 19:34:00 [id number] wGOeYY93DAktdZLrHkGlE9SPkdOp4 Ebe10XPS90cT3d3jWEnfCsL+kUA7989-28-42C51:34:00 [facility] Evaluation NoteREPORT#:[id number] REPORT STATUS: SignedDATE:09/26/22 TIME: 1933 PATIENT: BI EDMONDS UNIT #: [id number]#: [id number] [address] AGE: 21 SEX: F ATTEND: Luis Burciaga MDADM AUTHOR: Zoila Gomez DO * ALL edits or amendments must be made on the electronic/computer document * See AddendumOLGA HistoryChief complaint: uterine contractions, decreased movementHPI:21 yo EDC 11-20-22 presented to [facility] at 32 1/7wks complained of cramping pain at suprapubic area since last week and decreased FM today.+Lower back pain. Patient was admitted for +Amnisure at 29+wks on 09-07-22. Repeat Amnisure on 09-12-22 was negative and pt discharged home on 09-14-22. Pt did not have f/u with MFM since DC home from the hospital.Received 2 doses of steroid on 09-08-22 and 09-09-22.PN care by Dr Charles medical history: denies PMHPast surgical history: tonsils/adenoidsSocial history: no alcohol use, no tobacco use, no drug useFamily historyFATHER (Heart dz. DM).MOTHER (Cervical CA. Mult sclerosis. Osteoporosis. Arthritis).GRANDMOTHER (MGM +DM).GRANDFATHER (PGF +DM). Medications:Home Medications:Medication Dose/Rte/Freq Days Qty Entered Last Max Daily Dose Reviewed PNV WITH 1 CAP PO DAILY 09/07/22 CA/IRON/FA/DHA 2148 (PRENATE ESSENTIAL)Strength: 28 MG IRON-1 MG-300MG CAP DME - CRUTCHES 03/06/22 (CRUTCH SET) 1617Strength: 1 ITEM EACH AllergiesUncoded Allergies:MARCUS ACID- THROAT SWELLING (Severe, 08/03/22) Objective GeneralVS:Last Documented: Result Date Time Pulse Ox 98 09/26 1858 Temp 98.1 09/26 1858 Pulse 123 09/26 185 Resp 18 09/26 185 B/P Mean 82.0 09/26 185 B/P 112/09/26 185 Vital Signs Date Temp Pulse Resp B/P B/P Mean Pulse Ox FiO2 09/26 98.1 114-123 18 82.0 98 PATIENT WEIGHT: Weight (lb): Weight (oz): Weight (kg): Physical ExamBreasts: deferredNeuro: Exam: alert, oriented x3, normal speechAbdomen: gravid, soft, no abnormal tendernessUterine activity: Monitor: tocoCervical/ exam: Dilatation (cm): spec:no pooling. Frothy white discharge. Cx 1+/50/-3. Vtx FHR evaluation: Baseline: 140 bpm Variability: moderate 6-25 bpm Accelerations: 15 X 15 Decelerations: none FHR category: category 1Lower extremities: Edema: none Diagnosis, Assessment Plan Diagnosis, Assessment PlanComments:Impression:1. IUP at 32 1/7wk.2. Contractions.3. Decreased FM4. Frothy Vaginal discharge. Plan:1. FFN.2. Wet prep.3. UA 4. UDS.5. BPP6. OB US at 0452 Addendum 1: 09/27/22 045 by Zoila Gomez DO At 2152FHT 135 cat 1 strip with mod variability, accelerations 15x15.Cxn noneCX unchanged 1+/50/-3.FFN was positive.Amnisure negative.Wet prep negative.UDS negative.UA +2 protein. 10-20 WBC. TX with po Macrobid 100mg BID.OB US 31 3/7wks. CWD. Cephalic. Ant placenta, grade 2. ISMA 11.4cm. EFW 1628g (3lb9).BPP 8/8.Due to +FFN, will admit for 23hr obs.Phone consult called to [facility], Dr Judge. No Celestone is needed ( last course of steroid was given 3+ wk ago on 09-08-22 and 09-09-22 ).No MgSO4 is needed at 32 1/7wks with no contractions.POC dw patient, nurse at 0502 RPT #:[id number] OF REPORTCLClinical kzjt3285-07-44Y38:34:00G.[id number] able for patient opcnZTQJANWTMVCFXB4657-30-43I01:52:22 [facility] 2022-09-26 19:30:00 [id number] L2tCxsaHiN4J2CBHyADZwDlXjjLjr WElA0EQJvb8gXZcEO74GuJIkTJV8853-44-23W92:30:00 [facility] Screening ExamREPORT#:[id number] REPORT STATUS: SignedDATE:09/26/22 TIME: 1929 PATIENT: BI EDMONDS UNIT #: [id number]#: [id number] ROOM/BED: [place] [address]DOB: [birth year] AGE: 21 SEX: F ATTEND: Luis Burciaga DT: AUTHOR: Zoila Gomez DO * ALL edits or amendments must be made on the electronic/computer document * Medical Screening Exam Provider AttestationComments:Patient was seen at 1920 for contraction, back pain, and decreased FM at 32 1/7wks at 1931 RPT #:[id number] OF REPORTCLClinical tdbe4107-94-07X94:30:00G.JNQC85717880-7200BGWgdju able for patient pdaqIJKKOUBBMKEMAX4920-87-31Q38:31:38 [facility] 2022-09-14 08:43:00 [id number] 16bDCLaihNtVHiehkVicweU/Pmb1V ISUSgkwx5X8FgOdgAef+bbt37y32260-84-76M68:43:00 [facility] ([facility])OB Disch UndeliveredREPORT#:[id number] REPORT STATUS: SignedDATE:09/14/22 TIME: 08 PATIENT: LUIS EDMONDS UNIT #: [id number]#: [id number] [address] AGE: 21 SEX: F ATTEND: [facility]aga [facility] AUTHOR: Luis Burciaga MD * ALL edits or amendments must be made on the electronic/computer document * Objective Physical ExamFHR evaluation: Baby A FHR category: category 1Uterine activity: Monitor: toco Intensity: mildHEENT: normocephalic w/o injuryLungs: unlabored breathingAbdomen: gravid, soft, no abnormal tenderness, no guarding, no rebound tendernessLower extremities: Edema: none Colleen's sign: negative Calf tenderness: negative Discharge Undelivered GeneralHospital course:Patient admitted with a diagnosis of PPROM then ruled out after full evaluation with MFM. She had pain and pressure that resolved and [facility]: Home/Self CareDischarge condition: stableDischarge diagnosis: pre-term laborDischarge management: less than 30 mins Discharge InstructionsInstructions: routine instr sheet givenDiet: Resume Home Diet/FeedsAdditional Discharge Routines: None at 0845 RPT #:[id number] OF REPORTCLClinical aeou1587-44-46K86:43:00G.IBHD84667894-9274XBEbecx able for patient ofobENKCRRHXVOFETA3435-62-52M96:46:05 [facility] 2022-09-14 08:41:00 [id number]+b2qoZ XKiQZcudum6iDd7SuZmn5yLNiNGb5 bk08Rf9p1IySS0riBgbA3x9t0zm1483-01-80F62:41:00 [facility] ([facility])OB Antepartum Prog NoteREPORT#:[id number] REPORT STATUS: SignedDATE:09/14/22 TIME: 08 PATIENT: LUIS EDMONDS UNIT #: [id number]#: [id number] [address] AGE: 21 SEX: F ATTEND: Luis Burciaga [facility] AUTHOR: Luis Burciaga MD * ALL edits or amendments must be made on the electronic/computer document * Subjective SubjectiveCurrent EGA: Current EGA(wks): 30 Current EGA(days): 2Patient reports: Patient reports: Yes: normal movement. No: complaints, abdominal pain, vaginal bleeding, leaking fluid, contractions. Objective Nursing Documentation ReviewNursing data:The data set between the solid lines has been imported from nursing documentation. Any exceptions have been noted below under Provider comments. ROM date: 09/07/22 ROM time: 1730 Labor onset date: Labor onset time: Provider comments on imported nursing data: [] VS:Last Documented: Result Date Time B/P Mean 79.0 09/13 2350 B/P 113/57 09/13 2350 Pulse 95 09/13 2350 Pulse Ox 100 09/13 2020 Temp 36.8 09/13 2020 Resp 16 09/13 2020 Vital Signs Date Temp Pulse Resp B/P B/P Mean Pulse Ox FiO2 09/13 36.8 72-121 16 109-123/57-61 78.0-86.0 96-100 PATIENT WEIGHT: Weight (lb): 172Weight (oz): 6.42Weight (kg): 78.200 Membranes: PPROMROM date: 09/07/22Amniotic fluid: clearUterine activity: Monitor: toco Intensity: mildHEENT: normocephalic w/o injuryCardiac: regular rate and rhythmLungs: unlabored breathingAbdomen: gravid, soft, no abnormal tenderness, no guarding, no rebound tendernessLower extremities: Edema: none Colleen's sign: negative Calf tenderness: negativeBaby A: Baby A FHR category: category 1 Diagnosis, Assessment Plan Diagnosis, Assessment PlanAssessment: threatened laborPlan: discharge home at 0843 RPT #:[id number] OF REPORTPRProgress ehnm9465-42-08J04:41:00G.KGFJ86970516-7305LVVbwyz able for patient dbpdCSCUBFAIOSBXYK6503-15-66S24:43:25 [facility] 2022-09-13 17:53:00 [id number] ZJPsGyiwQ2niV1Oer4ef3DDhzkuFe OAoP9U1WNieJsoCzJ9Rutq/GNvf5867-08-00R35:53:00 [facility] Antepartum Prog NoteREPORT#:[id number] REPORT STATUS: SignedDATE:09/13/22 TIME: 1753 PATIENT: LUIS EDMONDS UNIT #: [id number]#: [id number] [address] AGE: 21 SEX: F ATTEND: Luis Burciaga MDADM AUTHOR: Luis Burciaga MD * ALL edits or amendments must be made on the electronic/computer document * Subjective SubjectiveCurrent EGA: Current EGA(wks): 30 Current EGA(days): 2Patient reports: Patient reports: Yes: complaints, abdominal pain, contractions, normal movement. No: vaginal bleeding, leaking fluid, headache, blurred vision, scotomata, fever, chills. Objective Nursing Documentation ReviewNursing data:The data set between the solid lines has been imported from nursing documentation. Any exceptions have been noted below under Provider comments. ROM date: 09/07/22 ROM time: 1730 Labor onset date: Labor onset time: Provider comments on imported nursing data: [] VS:Last Documented: Result Date Time B/P Mean 86.0 09/13 1314 Pulse Ox 96 09/13 1314 B/P 123/61 09/13 1314 Pulse 72 09/13 1314 Temp 36.8 09/12 2335 Resp 18 09/12 2335 Vital Signs Date Temp Pulse Resp B/P B/P Mean Pulse Ox FiO2 09/12-09/13 36.8 72-114 18 100-123/53-72 71.0-87.0 96-98 PATIENT WEIGHT: Weight (lb): 172Weight (oz): 6.42Weight (kg): 78.200 Membranes: PPROMROM date: 09/07/22Amniotic fluid: clearUterine activity: Monitor: toco Intensity: mildHEENT: normocephalic w/o injuryCardiac: regular rate and rhythmLungs: unlabored breathingAbdomen: gravid, soft, no abnormal tenderness, no guarding, no rebound tendernessLower extremities: Edema: none Colleen's sign: negative Calf tenderness: negativeBaby A: Baby A FHR category: category 1 Diagnosis, Assessment Plan Diagnosis, Assessment PlanAssessment: threatened labor, PPROM ruled out by MFM but she reports severe pelvic pain and pressure not relived by pain medsPlan: She is in severe pain and feels pressure. Fetus in breech presentation with dialted servix and memberanes in the cervix. she lives 2 hours away from the hospital. Will continue curent inhouse management and pain control till painimproves or risk of cord prolapse and delivery of extreme preamature infant outside hospital decreases at 1802 RPT #:[id number] OF REPORTPRProgress aqjx9633-14-29R42:53:00G.RKKO11384726-1853XYGkbdw able for patient sxglCJVICSBJXLBZQM0183-84-31Q69:02:32 [facility] 2022-09-13 09:03:00 [id number] ziCj28OlODn0W+htYDcpwNbhRyKgN +gEnNTnTaySzmsdqplJ4ZE82xnF4352-27-95G72:03:00 [facility] ([facility])M Progress NoteREPORT#:[id number] REPORT STATUS: SignedDATE:09/13/22 TIME: 902 PATIENT: LUIS EDMONDS UNIT #: [id number]#: [id number] [facility]: [birth year] AGE: 21 SEX: F ATTEND: Luis Burciaga MDADM AUTHOR: Kahlil Moore MD * ALL edits or amendments must be made on the electronic/computer document * Objective GeneralVS/I O:Last Documented: Result Date Time B/P Mean 71.0 09/13 0759 B/P 100/53 09/13 0759 Pulse 74 09/13 0759 Pulse Ox 98 09/13 0234 Temp 36.8 09/12 2335 Resp 18 09/12 2335 PATIENT WEIGHT: Weight (lb): 172Weight (oz): 6.42Weight (kg): 78.200 Medications:Active Meds + DC'd Last 24 HrsAmoxicillin (AMOXIL) 500 MG Q8H PO Ferrous Sulfate (FERROUS SULFATE) 650 MG DAILY PO (CKD) Docusate Sodium (COLACE) 100 MG BID PO Vit/Iron/Folic Ac/DSS/DHA (/FE/FA/OM3/DHA/EPA) 1 CAP DAILY PO Acetaminophen (TYLENOL) 650 MG Q4H PRN PRN PO Al Hydrox/Mg Hydrox/Simethicone (MYLANTA) 30 ML TID PRN PRN PO Calcium Gluconate/Sodium Chloride (Calcium Gluconate 1 GM/NS 50 mL) 50 ML ONCE PRN IV Guaifenesin (ROBITUSSIN) 200 MG Q4H PRN PRN PO Hydrocodone Bitart/Acetaminophen (NORCO 5/325) 1 TAB Q4H PRN PRN PO (DC) Lactated Ringer's (LACTATED RINGERS) 1,000 ML .Q8H IV (DC) Magnesium Hydroxide (MILK OF MAGNESIA) [...] ASDIR IV Diagnosis, Assessment Plan Diagnosis, Assessment PlanFree Text A P:MFM Progress NoteIsabelle was seen and evaluated again No reports of LOF, yest's report was only during urination, not spontaneously or intermittently . Denies CTX or VBReports good FMReports lower abd pain and diffuse back pain AFVSS Well in NAD abd soft NT (when distracted), ND Gravidno CVAT when distractedNeuro non focal, conversant Ext tr edema FHT: 140, mod variability, + accels, , no CTX, cat 1 Sono today: BREECH , ant. placenta, nl range ISMA 15.1, nl BPP 8/8, nl umb. art. and MCA Dopplers. A/P 21yo G1 at 30w2d (EDC 11/20/2022) - PPROMagain reviewed this dx and implications - Clinically she does not appear to be ROM'd with a stable ISMA and long and closed cervix by US and a repeat ROM+ negative. Would consider outpt surveillance. s/p mag and steroids Questions again discussed -Low Abd pain/back pain: appears to be related. No evidence for intraabd pathology or retroperitoneal path. No ctx noted and had normal WBC/urine. - Short Interval will cont. to follow - Hx of PIH no evidence of PIH at presentwill monitor -BREECH liediscussed this finding and implicationsdiscussd cord prolapse precautionsunderstands CS delivery indicated if remains nonvertexwill follow - Anemia on PO Fe Thank you for sharing in the care of your patient!Will cont. to follow with you closelyFloor time 35min at 0911 [facility] #:[id number] OF REPORTPRProgress uekf5042-23-25Q12:03:00G.FPDQ59388963-5643VZRcxni able for patient muprCVHJJQUSJPPCWO9178-52-16S74:12:14 [facility] 2022-09-12 08:28:00 [id number] IT66N2fRzf53nEhknkWJzL/vEki4E /JAjMhw57Ctv0fTOwgz3KhA5etj3545-59-81D32:28:00 [facility] ([facility] Progress NoteREPORT#:[id number] REPORT STATUS: SignedDATE:09/12/22 TIME: 827 PATIENT: LUIS EDMONDS UNIT #: [id number]#: [id number] [place] [place]: [birth year] AGE: 21 SEX: F ATTEND: Luis Burciaga MDADM AUTHOR: Kahlil Moore MD * ALL edits or amendments must be made on the electronic/computer document * Objective GeneralVS/I O:Last Documented: Result Date Time B/P Mean 71.0 09/12 0740 B/P 100/50 09/12 0740 Pulse 74 09/12 0740 Pulse Ox 99 09/11 2340 Temp 36.6 09/11 234 Resp 16 09/11 2340 PATIENT WEIGHT: Weight (lb): 172Weight (oz): 6.42Weight (kg): 78.200 Medications:Active Meds + DC'd Last 24 HrsAmoxicillin (AMOXIL) 500 MG Q8H PO Ferrous Sulfate (FERROUS SULFATE) 650 MG DAILY PO (CKD) Docusate Sodium (COLACE) 100 MG BID PO Vit/Iron/Folic Ac/DSS/DHA (/FE/FA/OM3/DHA/EPA) 1 CAP DAILY PO Acetaminophen (TYLENOL) 650 MG Q4H PRN PRN PO Al Hydrox/Mg Hydrox/Simethicone (MYLANTA) 30 ML TID PRN PRN PO Calcium Gluconate/Sodium Chloride (Calcium Gluconate 1 GM/NS 50 mL) 50 ML ONCE PRN IV Guaifenesin (ROBITUSSIN) 200 MG Q4H PRN PRN PO Hydrocodone Bitart/Acetaminophen (NORCO 5/325) 1 TAB Q4H PRN PRN PO Lactated Ringer's (LACTATED RINGERS) 1,000 ML .Q8H IV Magnesium Hydroxide (MILK OF MAGNESIA) 30 [...] PO (DC) Diagnosis, Assessment Plan Diagnosis, Assessment PlanFree Text A P:MFM Progress NoteIsabelle was seen and evaluated again Continues with LOF of clear fluidDenies CTX or VBReports good FM AFVSS abd soft NT, ND Gravidno CVATNeuro non focal, conversant Ext tr edema FHT: 130, mod variability, + accels, occasional mild variables, no CTX, cat II Sono today: TRV back up and head to maternal Right , ant. placenta, nl range AFI16, nl BPP 8/8, nl umb. art. and MCA Dopplers. Cx long and closed - no funneling. A/P 21yo G1 at 30w1d (EDC 11/20/2022) - PPROMagain reviewed this dx and implications - Clinically she does not appear to be ROM'd with a stable ISMA and long and closed cervix by US. I would consider a repeat ROM+. Otherwise, aware of rationale for exp. mgmt. and R/B/A, includng small but significant risk of stillbirthunderstands delivery may be indicated anytime for labor / infection / NRFHT - orgenerally by 34w recommended - discussed in some cases (and especially given thenormal ISMA), consideration can be given to go beyond 34w if desireds/p mag and steroidsIf repeat ROM+ neg - d/c maybe considered. Questions again discussed - Short Interval will cont. to follow - Hx of PIH no evidence of PIH at presentwill monitor - Trv liediscussed this finding and implicationsdiscussd cord prolapse precautionsunderstands CS delivery indicated if remains nonvertexwill follow - Anemia on PO Fe Thank you for sharing in the care of your patient!Will cont. to follow with you closelyFloor time 35min at 0834 RPT #:[id number] OF REPORTPRProgress dwqy9701-65-20B03:28:00G.UXJJ32890349-4951BOZiacf able for patient rgqvXOVPIQXYDREAQF1759-04-95E20:34:19 [facility] 2022-09-12 01:41:00 [id number] RcRf/4/+HG19244EqD+HQN0wCQNUt Kh7Ajoe+7MTB5iX3wTiFdRff2+d6461-42-16F00:41:00 [facility] ([facility])OB Antepartum Prog NoteREPORT#:[id number] REPORT STATUS: SignedDATE:09/12/22 TIME: 0141 PATIENT: LUIS EDMONDS UNIT #: [id number]#: [id number] [address] AGE: 21 SEX: F ATTEND: Luis Burciaga MDADM AUTHOR: Luis Burciaga MD * ALL edits or amendments must be made on the electronic/computer document * Subjective SubjectiveCurrent EGA: Current EGA(wks): 30 Current EGA(days): 1Patient reports: Patient reports: Yes: leaking fluid, normal movement. No: complaints, abdominal pain, vaginal bleeding, contractions, headache, blurred vision, scotomata, fever, chills. Objective Nursing Documentation ReviewNursing data:The data set between the solid lines has been imported from nursing documentation. Any exceptions have been noted below under Provider comments. ROM date: 09/07/22 ROM time: 1730 Labor onset date: Labor onset time: Provider comments on imported nursing data: [] VS:Last Documented: Result Date Time B/P Mean 78.0 09/11 2340 Pulse Ox 99 09/11 2340 B/P 116/56 09/11 2340 Temp 36.6 09/11 234 Pulse 127 09/11 2341 Resp 16 09/11 234 Vital Signs Date Temp Pulse Resp B/P B/P Mean Pulse Ox FiO2 09/11 36.6-36.9 80-127 16-20 106-122/51-69 74.0-86.0 99 PATIENT WEIGHT: Weight (lb): 172Weight (oz): 6.42Weight (kg): 78.200 Membranes: PPROMROM date: 09/07/22Amniotic fluid: clearHEENT: normocephalic w/o injuryCardiac: regular rate and rhythmLungs: unlabored breathingAbdomen: gravid, soft, no abnormal tenderness, no guarding, no rebound tendernessLower extremities: Edema: none Colleen's sign: negative Calf tenderness: negativeBaby A: Baby A FHR category: category 1 Diagnosis, Assessment Plan Diagnosis, Assessment PlanAssessment: PPROMPlan: continue current managmnt at 0142 RPT #:[id number] OF REPORTPRProgress oovn2086-44-80P01:41:00G.LOQP19662291-4807LDPyoqp able for patient holhVDJWXWHHIAROMN6775-62-54W55:42:58 [facility] 2022-09-11 22:15:00 [id number] V71uycO4x7gCDtZRFwoA7qHUyC6JW 7DWZUQnaJmMQpAvvDzfFZk4vI0M9463-45-04O18:15:00 [facility] ([facility])OB Antepartum Prog NoteREPORT#:[id number] REPORT STATUS: SignedDATE:09/11/22 TIME: 2214 PATIENT: LUIS EDMONDS UNIT #: [id number]#: [id number] [address] AGE: 21 SEX: F ATTEND: Luis Burciaga MDADM AUTHOR: Luis Burciaga MD * ALL edits or amendments must be made on the electronic/computer document * Subjective SubjectiveCurrent EGA: Current EGA(wks): 30 Current EGA(days): 0Patient reports: Patient reports: Yes: complaints, abdominal pain, vaginal bleeding, leaking fluid, contractions, normal movement, decreased movement, no movement. Objective Nursing Documentation ReviewNursing data:The data set between the solid lines has been imported from nursing documentation. Any exceptions have been noted below under Provider comments. ROM date: 09/07/22 ROM time: 1730 Labor onset date: Labor onset time: Provider comments on imported nursing data: [] VS:Last Documented: Result Date Time B/P Mean 83.0 09/11 190 Pulse Ox 99 09/11 1907 B/P 115/62 09/11 1907 Temp 36.7 09/11 190 Pulse 93 09/11 1908 Resp 16 09/11 1908 Vital Signs Date Temp Pulse Resp B/P B/P Mean Pulse Ox FiO2 09/11 36.7-36.9 80-112 16-20 106-122/51-69 74.0-86.0 99 PATIENT WEIGHT: Weight (lb): 172Weight (oz): 6.42Weight (kg): 78.200 Membranes: PPROMROM date: 09/07/22Amniotic fluid: clearHEENT: normocephalic w/o injuryCardiac: regular rate and rhythmLungs: unlabored breathingAbdomen: gravid, soft, no abnormal tenderness, no guarding, no rebound tendernessLower extremities: Edema: none Colleen's sign: negative Calf tenderness: negativeBaby A: Baby A FHR category: category 1 Diagnosis, Assessment Plan Diagnosis, Assessment PlanAssessment: PPROMPlan: continue current managmnt at 2218 RPT #:[id number] OF REPORTPRProgress roii5475-08-58O96:15:00G.FXIW62642456-2453UOMrvxw able for patient xvtzJYQDOAYCVTRHBJ4481-33-52B07:19:18 [facility] 2022-09-11 07:18:00 [id number] wBKUAscYpaJ0q8PLnJin77uz+jLgz sHr7cBGOhIcZL7vffmGiB4SKEEP5001-43-31L12:18:00 [facility] Progress NoteREPORT#:[id number] REPORT STATUS: SignedDATE:09/11/22 TIME: 717 PATIENT: LUIS EDMONDS UNIT #: [id number]#: [id number] [address] AGE: 21 SEX: F ATTEND: Luis Burciaga MDADM AUTHOR: Kahlil Moore MD * ALL edits or amendments must be made on the electronic/computer document * Review of SystemsAll systems rev neg: except as marked Objective GeneralVS/I O:Last Documented: Result Date Time B/P Mean 86.0 09/11 555 B/P 122/69 09/11 555 Pulse 82 09/11 555 Pulse Ox 97 09/10 603 Temp 36.8 09/10 603 Resp 16 09/10 603 PATIENT WEIGHT: Weight (lb): 172Weight (oz): 6.42Weight (kg): 78.200 Medications:Active Meds + DC'd Last 24 HrsAmoxicillin (AMOXIL) 500 MG Q8H PO Ferrous Sulfate (FERROUS SULFATE) 650 MG DAILY PO (CKD) Docusate Sodium (COLACE) 100 MG BID PO Vit/Iron/Folic Ac/DSS/DHA (/FE/FA/OM3/DHA/EPA) 1 CAP DAILY PO Magnesium Sulfate (MAGNESIUM SULFATE 20GM/SWFI 500ML) 500 ML Q10H IV (DC) Acetaminophen (TYLENOL) 650 MG Q4H PRN PRN PO Al Hydrox/Mg Hydrox/Simethicone (MYLANTA) 30 ML TID PRN PRN PO Calcium Gluconate/Sodium Chloride (Calcium Gluconate 1 GM/NS 50 mL) 50 ML ONCE PRN IV Guaifenesin (ROBITUSSIN) 200 MG Q4H PRN PRN PO Hydrocodone Bitart/Acetaminophen (NORCO 5/325) 1 TAB Q4H PRN PRN PO Lactated Ringer's (LACTATED RINGERS) 1,000 ML .Q8H IV Magnesium Hydroxide (MILK OF MAGNESIA) 30 [...] (AMBIEN) 5 MG BEDTIME PRN PRN PO ResultsFindings/Data:Laboratory Tests 09/10 2044 Urines Urine Color (YEL/STRAW) YELLOW Urine Appearance (CLEAR) SL CLOUDY Urine pH (5.0 - 7.0) 6.0 Ur Specific [place] (1.005 - 1.030) 1.019 Urine Protein (NEGATIVE) [...] /LPF) TRACE Diagnosis, Assessment Plan Diagnosis, Assessment PlanFree Text A P:MFM Progress NoteIsabelle was seen and evaluatedNo complaintsContinues with LOF of clear fluidDenies CTX or VBReports good FM AFVSS abd soft NT, ND Gravidno CVATNeuro non focal, conversant Ext tr edema FHT: 140, mod variability, + accels, occasional mild variables, no CTX, cat II Sono today: BREECH, ant. placenta, nl range ISMA 12, nl BPP 8/8, nl umb. art. andMCA Dopplers A/P 21yo G1 at 30w0d (EDC 11/20/2022) - PPROMagain reviewed this dx and implicationsaware of rationale for exp. mgmt. and R/B/A, includng small but significant riskof stillbirthunderstands delivery may be indicated anytime for labor / infection / NRFHT - orgenerally by 34w recommended - discussed in some cases (and especially given thenormal ISMA), consideration can be given to go beyond 34w if desireds/p mag and steroidsQuestions again discussed - Short Interval will cont. to follow - Hx of PIH no evidence of PIH at presentwill monitor - Breech liediscussed this finding and implicationsdiscussd cord prolapse precautionsunderstands CS delivery indicated if remains nonvertexwill follow - Anemia on PO Fe Thank you for sharing in the care of your patient!Will cont. to follow with you closelyFloor time 35min at 0724 RPT #:[id number] OF REPORTPRProgress luvb2569-11-37W51:18:00G.WCFT58860891-1138SYCzvlz able for patient qsvyDWABJWAPNALOFE3858-46-85A21:24:38 [facility] 2022-09-10 13:12:00 [id number] PYHh4H+qTX8cvAsvcm+zZ0Ff6C7j/ k4OpJwKKb+B5L3torY1nNxjkgvP8060-53-49U42:12:00 [facility] ([facility])MFM Progress NoteREPORT#:[id number] REPORT STATUS: SignedDATE:09/10/22 TIME: 1312 PATIENT: LUIS EDMONDS UNIT #: [id number]#: [id number] [address] AGE: 21 SEX: F ATTEND: Luis Burciaga MDADM AUTHOR: Daniel Witt MD * ALL edits or amendments must be made on the electronic/computer document * Objective ObjectiveGeneral appearance: alert ResultsFindings/Data: MFM Progress NoteIsabelle was seen and evaluatedFeeling well todayDenies issuesContinues with LOF of clear fluidDenies CTX or VBReports good FM VSSAF abd soft NTno CVAT1+ PE, 1+ DTRno Colleen's FHT: 130s, mod BTBV, + accels, occasional mild variables, no CTX, cat II Sono today: TRANSVERSE back down head to mat R, ant. placenta, nl range ISMA 15.9, nl BPP 8/8, nl umb. art. and MCA Dopplers A/P 21yo G1 at 29w6d (EDC 11/20/2022) - PPROMagain reviewed this dx and implicationsawre of rationale for exp. mgmt. and R/B/A, includng small but significant risk of stillbirthunderstands delivery may be indicated anytime for labor / infection / NRFHT - orgenerally by 34w recommended - discussed in some cases consideration can be given to go beyond 34w if desiredreceiving mag sulfate and BMZ seriesQuestions again discussed - Short Interval will cont. to follow - Hx of PIH in Prior Pregnancyper report today no evidence of PIH at presentwill monitor - Transverse liediscussed this finding and implicationsdiscussd cord prolapse precautionsunderstands CS delivery indicated if remains nonvertexwill follow - Anemia on PO Fe Thank you for sharing in the care of your patient!Will cont. to follow with you closelyFloor time 35min at 1325 RPT #:[id number] OF REPORTPRProgress sngg7949-18-75O73:12:00G.PRAI72839746-9294SJEkbkc able for patient ndilNFXAYJUZPXQNUV0558-69-81C65:25:53 [facility] 2022-09-10 08:19:00 [id number] XYROj94H3Meu4gN5BBJkjsVMlumxG YODIT+8WTSO5UAaX1e5jQPrEefPh8544-66-78L97:19:00 [facility] ([facility])OB Antepartum Prog NoteREPORT#:[id number] REPORT STATUS: SignedDATE:09/10/22 TIME: 0819 PATIENT: LUIS EDMONDS UNIT #: [id number]#: [id number] [address] AGE: 21 SEX: F ATTEND: Luis Burciaga MDADM AUTHOR: Luis Burciaga MD * ALL edits or amendments must be made on the electronic/computer document * Subjective SubjectiveCurrent EGA: Current EGA(wks): 29 Current EGA(days): 6Patient reports: Patient reports: Yes: normal movement. No: complaints, abdominal pain, vaginal bleeding, leaking fluid, contractions. Objective Nursing Documentation ReviewNursing data:The data set between the solid lines has been imported from nursing documentation. Any exceptions have been noted below under Provider comments. ROM date: 09/07/22 ROM time: 1730 Labor onset date: Labor onset time: Provider comments on imported nursing data: [] VS:Last Documented: Result Date Time B/P Mean 79.0 09/10 0754 B/P 109/57 09/10 0754 Pulse 97 09/10 0754 Pulse Ox 97 09/10 0604 Temp 36.8 09/10 0604 Resp 16 09/10 0604 Vital Signs Date Temp Pulse Resp B/P B/P Mean Pulse Ox FiO2 09/09-09/10 36.4-36.8 71-97 16 98-112/54-66 73.0-81.0 96-100 PATIENT WEIGHT: Weight (lb): 172Weight (oz): 6.42Weight (kg): 78.200 Membranes: PPROMROM date: 09/07/22Amniotic fluid: clearHEENT: normocephalic w/o injuryCardiac: regular rate and rhythmLungs: unlabored breathingAbdomen: gravid, soft, no abnormal tenderness, no guarding, no rebound tendernessLower extremities: Edema: none Colleen's sign: negative Calf tenderness: negativeBaby A: Baby A FHR category: category 1 Diagnosis, Assessment Plan Diagnosis, Assessment PlanAssessment: PPROMPlan: continue current managmnt at 0820 RPT #:[id number] OF REPORTPRProgress xnlm1894-75-96U04:19:00G.SXOF07155349-8908DSYutpe able for patient cvfxVPEOTBIRYRFWCX5116-59-61Z29:20:49 [facility] 2022-09-09 12:03:00 [id number] wwOoH1uP5Mh5VjvCXbwQMJJxoc/SS +Bo4WEylQQtz8pW2t/bpX7cBjLt9960-63-56U86:03:00 [facility] ([facility])OB Admission / H PREPORT#:[id number] REPORT STATUS: SignedDATE:09/09/22 TIME: 1203 PATIENT: LUIS EDMONDS UNIT #: [id number]#: [id number] [address] AGE: 21 SEX: F ATTEND: Luis Burciaga [facility] AUTHOR: Juany Carrillo MD * ALL edits or amendments must be made on the electronic/computer document * OB HistoryNotes:[facility] ([facility])OLGA Evaluation NoteREPORT#:[id number] REPORT STATUS: SignedDATE:09/07/22 TIME: 224 PATIENT: LUIS EDMONDS UNIT #: [id number]#: [id number] [address] AGE: 21 SEX: F ATTEND: Luis Burciaga MDA AUTHOR: Juany Carrillo MD * ALL edits or amendments must be made on the electronic/computer document * History and PhysicalChief complaint: suspected ruptured membHPI:21 y/o female at 29-3/7 weeks who presents after several gushes of clearfluid from the vagina. Patient is certain that she did not leak urine. Patient denies any vaginal bleeding or contractions.She reports good movement. PNC with Dr. Burciaga which has been uncomplicated to datePregnancy history: : 2 Term: 1 : 0 Abortus: 0 Living children: 1 Comments: urrent : EDC: 11/20/22 EGA (weeks/days): 29-3/7 weeksConditions of : pre-term PROMPast medical history: denies PMHPast surgical history: tonsils/adenoidsSocial history: no alcohol use, no tobacco use, no drug useFamily historyFATHER Family History: Heart diseaseMOTHER Family History: CancerMOTHERRelation not specified for: Family History: Diabetes FH: multiple sclerosis AllergiesUncoded Allergies:MARCUS ACID- THROAT SWELLING (Severe, 08/03/22) Review of SystemsAll systems rev neg: except as marked Objective GeneralVS:Last Documented: Result Date Time Pulse Ox 99 09/07 2140 Pulse 86 09/07 214 B/P Mean 84.0 09/07 2130 B/P 120/60 09/07 2130 Vital Signs Date Temp Pulse Resp B/P B/P Mean Pulse Ox FiO2 09/07 86-96 120/60 84.0 98-99 PATIENT WEIGHT: Weight (lb): 172Weight (oz): 6.42Weight (kg): 78.200 Physical ExamHEENT: normocephalic w/o injuryLungs: unlabored breathingBreasts: deferredNeuro: Exam: alert, oriented x3, normal speechAbdomen: gravid, soft, no abnormal tenderness, no guardingMusculoskeletal: painless range of motionGenitourinary: no flank painUterine activity: Monitor: toco Frequency (description): nonePelvic exam: Pelvis clinically adequate: yes Vulvar lesions: none Vagina: normal Sterile speculum exam: visually closed, physiological discharge, no pooling, no bleedingCervical/ exam: Dilatation (cm): 0 - closed Effacement (%): 0 station: - 3 FHR evaluation: Baseline: 150 bpm Variability: minimal < or = 5 bpm Accelerations: absent Decelerations: few mild variables of prematurity FHR category: tracing overall reassuring for EGAMembranes: Membranes: status undeterminedLower extremities: Edema: none Colleen's sign: negative Calf tenderness: negative ResultsFindings/Data:Laboratory Tests: 09/07 Other Body Source Membrane Rupture (NEGATIVE) POSITIVE H Urines Urine Color (YEL/STRAW) STRAW Urine Appearance (CLEAR) CLEAR Urine pH (5.0 - 7.0) 7.0 Ur Specific [place] (1.005 - 1.030) 1.006 Urine Protein (NEGATIVE) [...] /LPF) TRACE Diagnosis, Assessment Plan Diagnosis, Assessment PlanProblem List/A P: 1. 29 weeks gestation of 2. premature rupture of membranes (PPROM) delivered, current hospitalization Free Text A P:21 y/o female at 29-3/7 weeks who presents with PROM; ROM plus is positive. There is no evidence of active labor. tracing is reassuring. Patient is managed by Dr. Burciaga and the OB Hospitalist Service is covering hispatients at this time.Plan: admit to inpatient, transfer to antepartum; PPROM protocol; Continuous EFM; Consult MFMPlan discussed with: patient, parentTime spent: Time spent on patient care (minutes): 35 >50% spent on counseling/coordination of care: yes at 0549 RPT #:[id number] OF REPORT Past HistoryAllergies:Uncoded Allergies:MARCUS ACID- THROAT SWELLING (Severe, 08/03/22) at 1207 RPT #:[id number] OF REPORTHPHistory and physical lxeszqpxogu9867-51-22N33:03:00G.[id number] AVAvailable for patient kuqxOIIJXIBMOBIMLP8965-17-09J10:08:19 [facility] 09:03:00 [id number] M+w8XCM7QeZOuXT5yJ+SPMkzq+ix4 YUrH6OzIwWB0iB6uNughCgqaeoY7002-05-01A67:03:00 [facility] ([facility])OB Antepartum Prog NoteREPORT#:[id number] REPORT STATUS: SignedDATE:09/09/22 TIME: 09 PATIENT: LUIS EDMONDS UNIT #: [id number]#: [id number] [address] AGE: 21 SEX: F ATTEND: Luis Burciaga MDADM AUTHOR: Luis Burciaga MD * ALL edits or amendments must be made on the electronic/computer document * Subjective SubjectivePatient reports: Patient reports: No: complaints, abdominal pain, vaginal bleeding, leaking fluid, contractions, normal movement, decreased movement, no movement, headache. Comments:Late entry note. Patient was seen on 09/08/22 a 4:30 pm Objective Nursing Documentation ReviewNursing data:The data set between the solid lines has been imported from nursing documentation. Any exceptions have been noted below under Provider comments. ROM date: 09/07/22 ROM time: 1730 Labor onset date: Labor onset time: Provider comments on imported nursing data: [] VS:Last Documented: Result Date Time B/P Mean 74.0 09/09 0124 B/P 98/56 09/09 0124 Pulse 86 09/09 0124 Pulse Ox 91 09/09 0056 Resp 16 09/08 2249 Temp 36.8 09/08 1949 Vital Signs Date Temp Pulse Resp B/P B/P Mean Pulse Ox FiO2 09/08-09/09 36.5-36.8 78-132 16-18 95-122/52-66 67.0-84.0 84-100 PATIENT WEIGHT: Weight (lb): 172Weight (oz): 6.42Weight (kg): 78.200 Membranes: PPROMROM date: 09/07/22Amniotic fluid: clearHEENT: normocephalic w/o injuryCardiac: regular rate and rhythmLungs: unlabored breathingAbdomen: gravid, soft, no abnormal tenderness, no guarding, no rebound tendernessLower extremities: Edema: none Colleen's sign: negative Calf tenderness: negativeBaby A: Baby A FHR category: category 1Findings/data:Microbiology: Date/Time Procedure - Status Source Growth 09/08 174 Group B Streptococcus Screen ([facility]) - RECD VAGINAL Diagnosis, Assessment Plan Diagnosis, Assessment PlanAssessment: PPROMPlan: continue current managmnt at 0906 RPT #:[id number] OF REPORTPRProgress yzvq7782-40-95H51:03:00G.DIGO29343532-1188RYXrdsf able for patient lxxoLXQGDIFBTWTOXI0608-58-26E16:06:33 [facility] 2022-09-09 08:58:00 [id number] kg3gUBv/OETkHTDjlAWjiWVhFqMPn c71U99SoOZ5IQTWCrhhQ5GW8wGL0694-66-66A12:58:00 [facility] ([facility])OB Antepartum Prog NoteREPORT#:[id number] REPORT STATUS: SignedDATE:09/09/22 TIME: 0858 PATIENT: LUIS EDMONDS UNIT #: [id number]#: [id number] [address] [birth year] AGE: 21 SEX: F ATTEND: Luis Burciaga MDADM AUTHOR: Luis Burciaga MD * ALL edits or amendments must be made on the electronic/computer document * Subjective SubjectivePatient reports: Patient reports: Yes: leaking fluid, normal movement. No: complaints, abdominal pain, vaginal bleeding, contractions, headache, blurred vision, scotomata, fever, chills. Objective Nursing Documentation ReviewNursing data:The data set between the solid lines has been imported from nursing documentation. Any exceptions have been noted below under Provider comments. ROM date: 09/07/22 ROM time: 1730 Labor onset date: Labor onset time: Provider comments on imported nursing data: [] VS:Last Documented: Result Date Time B/P Mean 74.0 09/09 0124 B/P 98/56 09/09 0124 Pulse 86 09/09 0124 Pulse Ox 91 09/09 0056 Resp 16 09/08 2249 Temp 36.8 09/08 1949 Vital Signs Date Temp Pulse Resp B/P B/P Mean Pulse Ox FiO2 09/08-09/09 36.5-36.8 78-132 16-18 95-122/52-66 67.0-84.0 84-100 PATIENT WEIGHT: Weight (lb): 172Weight (oz): 6.42Weight (kg): 78.200 Lungs: unlabored breathingAbdomen: gravid, soft, no abnormal tenderness, no guarding, no rebound tendernessLower extremities: Edema: none Colleen's sign: negative Calf tenderness: negativeFindings/data:Microbiology: Date/Time Procedure - Status Source Growth 09/08 1739 Group B Streptococcus Screen ([facility]) - RECD VAGINAL Diagnosis, Assessment Plan Diagnosis, Assessment PlanAssessment: PPROMPlan: continue current managmnt at 0859 RPT #[id number] OF REPORTPRProgress zqih6315-69-37J77:58:00G.IFKO71121428-6249XDWtvya able for patient hkjcIRUJPHPAKGEUWU3297-78-06E45:59:52 [facility] 2022-09-09 07:45:00 [id number] aerrQEprDtwvm/wDEqfuyZPXjnhdA RY4O1yrPC4PoMT0xdvb/eJ7YEaF2784-85-51J79:45:00 [facility] ([facility])MFM Progress NoteREPORT#:[id number] REPORT STATUS: SignedDATE:09/09/22 TIME: 0745 PATIENT: LUIS EDMONDS UNIT #: [id number]#: [id number] [address] AGE: 21 SEX: F ATTEND: Luis Burciaga MDADM AUTHOR: Daniel Witt MD * ALL edits or amendments must be made on the electronic/computer document * Objective ObjectiveGeneral appearance: alert ResultsFindings/Data: MFM Progress NoteIsabelle was seen and evaluatedFeeling well todayDenies issuesContinues with LOF of clear fluidDenies CTX or VBReports good FM VSSAF abd soft NTno CVAT1+ PE, 1+ DTRno Colleen's FHT: 120s, min to mod BTBV, + accels, occasional mild variables, no CTX, cat II labs reviewed A/P 21yo G1 at 29w5d (EDC 11/20/2022) - PPROMagain discussed this dx and implicationsawre of rationale for exp. mgmt. and R/B/A, includng small but significant risk of stillbirthunderstands delivery may be indicated anytime for labor / infection / NRFHT - orgenerally by 34w recommended - discussed in some cases consideration can be given to go beyond 34w if desiredreceiving mag sulfate and BMZ seriesNICU consult recommendedQuestions discussed - Short Interval will cont. to follow - Hx of PIH in Prior Pregnancyper report today no evidence of PIH at presentwill monitor - Anemia will request PO Fe Thank you for sharing in the care of your patient!Will cont. to follow with you closelyFloor time 35min at 0748 RPT #:[id number] OF REPORTPRProgress hpaz2354-32-19V37:45:00G.[id number] able for patient ubdfYZKAELXSFOLTDC6878-96-65Y59:49:02 [facility] 2022-09-08 17:21:00 [id number]/w 1i3QfhtLS0LXIRBmwpALvBkMRJVu3 bRMVxcY/sJJCtIbhLInFZHxt+Pd3318-70-57G56:21:00 [facility])MF Consultation NoteREPORT#:[id number] REPORT STATUS: SignedDATE:09/08/22 TIME: 1721 PATIENT: LUIS EDMONDS UNIT #: [id number]#: [id number] [address] AGE: 21 SEX: F ATTEND: Luis Burciaga [facility] AUTHOR: Daniel Witt MD * ALL edits or amendments must be made on the electronic/computer document * History Past HistoryPast family history:FATHER Family History: Heart diseaseMOTHER Family History: CancerMOTHERRelation not specified for: Family History: Diabetes FH: multiple sclerosis Allergies:Uncoded Allergies:MARCUS ACID- THROAT SWELLING (Severe, 08/03/22) Objective Physical ExamGeneral appearance: alert ResultsFindings/Data:Laboratory Tests 09/08 0707 Chemistry Magnesium (1.80 - [...] % (Auto) (14.0 - 32.0 %) 31.0 [place]he % (Auto) (4.8 - 9.0 %) 8.1 Eos % (Auto) (0.3 - 3.7 %) 0.8 Baso % (Auto) (0.0 - 2.0 %) 0.3 Neut # (Auto) (2.0 - 7.6 x10 3/uL) 6.16 Lymph # (Auto) (1.0 - 3.8 x10 3/uL) 3.22 Ashe # (Auto) (0.1 - 0.8 x10 3/uL) 0.84 H Eos # (Auto) (0.0 - 0.2 x10 3/uL) 0.08 Baso # (Auto) (0.0 - 0.2 x10 3/uL) 0.03 Abs Immat Gran (auto) (0.00 - 0.03 x10 3/uL) 0.06 H Add Manual Diff NO Immature Gran % (0.0 - 2.0 %) 0.6 Nucleated RBC % (0 - 0 %) 0.0 Nucleated RBCs # (Man) (0.0 - 0.1 x10 3/uL) 0.00 Laboratory Tests 02/20 2148 Other Body Source Membrane Rupture (NEGATIVE) POSITIVE H Laboratory Tests 09/07 2340 Serology RPR (NONREACTIVE) NONREACTIVE Hep Bs Antigen (NonReactive INDEX) NON REACTIVE HIV 1 2 Antibody Screen (Nonreactive) Nonreactive Laboratory Tests 09/07 2124 Urines Urine Color (YEL/STRAW) STRAW Urine Appearance (CLEAR) CLEAR Urine pH (5.0 - 7.0) 7.0 Ur Specific [place] (1.005 - 1.030) 1.006 Urine Protein (NEGATIVE) [...] Urine Mucus (NONE SEEN /LPF) TRACE MFM ConsultationPt seen and evaluatedIsabelle is a 21yo G1 at 29w4d (EDC 11/20/2022) admitted for PPROM yesterdayShe is feeling well currently Continues with LOF of clear fluidDenies CTX or VBReports good FM PNC - significant for short interval, reports some episodes of low BPs, states she failed GCT but passed OGTT PMH - nonePSH - noneObHx - at term, had elevated BPs at termSocHx - neg s7APUAGbnc - PNV VSSAF abd soft NTno CVAT1+ PE, 1+ DTRno Colleen's FHT: 120s, mod BTBV, + accels, rate mild variables, cat II labs reviewed Sono today: vtx, ant. placenta, EFW 0xoo4jg (1574g, 68%ile), nl range ISMA 15.4, nl BPP 8/8, nl umb. art. Dopplers A/P 21yo G1 at 29w4d (EDC 11/20/2022) - PPROMreviewed this dx and implicationsdiscussed rationale for exp. mgmt. and R/B/A, includng small but significant risk of stillbirthdiscussed delivery may be indicated anytime for labor / infection / NRFHT - or generally by 34w recommended - discussed in some cases consideration can be given to go beyond 34w if desiredreceiving mag sulfate - would continue for up to 48wreceiving BMZ seriesNICU consult recommendedrecommend to obtain GBS and GC/C swabsSCDs at bedtime recommended - may consider prophlyactic anticoagulationQuestions reviewed in detail - Short Interval will cont. to follo - Hx of PIH in Prior Pregnancyper report today no evidence of PIH at presentwill monitor Thank you for sharing in the care of your patient!Will cont. to follow with you closelyFloor time 80min at 1731 RPT #:[id number] OF REPORTJFNdqtrsstriqb2781-61-41H96:21:00G.PDOC2 [id number] for patient dmkbUFKXBQWJWCYNIK8042-94-41E40:31:53 [facility] 2022-09-07 22:44:00 [id number] mNHKfvRA31EPTkLcLH2Z979Hwutab fIqDkK+V+E2TY1ab430z58PITUw5185-94-81V69:44:00 [facility] ([facility])OB Medical Screening ExamREPORT#:[id number] REPORT STATUS: SignedDATE:09/07/22 TIME: 2244 PATIENT: LUIS EDMONDS UNIT #: [id number]#: [id number] [address] AGE: 21 SEX: F ATTEND: Luis Burciaga MDADM AUTHOR: Juany Carrillo MD * ALL edits or amendments must be made on the electronic/computer document * Medical Screening Exam Provider AttestationAttestation:The QMP MSE [place]. [place]ified at 0322Physician at bedside 2140 Comments:21 y/o female at 29-3/7 weeks who presents after several gushes of clearfluid from the vagina. Patient is certain that she did not leak urine. at 0557 RPT #:[id number] OF REPORTCLClinical scrz8252-08-44D25:44:00G.BNRV80411025-5887PNKowwl able for patient jxjoPSWQFEPVJBHZSR3278-49-47Y99:57:57 [facility] 2022-09-07 22:43:00 [id number]/OePZ +tvavvrKGLfz9Jy4bw32qdPNS9Ec/ YUH/9kkKHWMOq1rzQNquU9yKlFZ0763-03-01B89:43:00 [facility] ([facility])OLGA Evaluation NoteREPORT#:[id number] REPORT STATUS: SignedDATE:09/07/22 TIME: 2242 PATIENT: LUIS EDMONDS UNIT #: [id number]#: [id number] [address] AGE: 21 SEX: F ATTEND: Luis Burciaga MDADM AUTHOR: Juany Carrillo MD * ALL edits or amendments must be made on the electronic/computer document * OLGA HistoryChief complaint: suspected ruptured membHPI:21 y/o female at 29-3/7 weeks who presents after several gushes of clearfluid from the vagina. Patient is certain that she did not leak urine. Patient denies any vaginal bleeding or contractions.She reports good movement. PNC with Dr. Burciaga which has been uncomplicated to datePregnancy history: : 2 Term: 1 : 0 Abortus: 0 Living children: 1 Comments: urrent : EDC: 11/20/22 EGA (weeks/days): 29-3/7 weeksConditions of : pre-term PROMPast medical history: denies PMHPast surgical history: tonsils/adenoidsSocial history: no alcohol use, no tobacco use, no drug useFamily historyFATHER Family History: Heart diseaseMOTHER Family History: CancerMOTHERRelation not specified for: Family History: Diabetes FH: multiple sclerosis AllergiesUncoded Allergies:MARCUS ACID- THROAT SWELLING (Severe, 08/03/22) Review of SystemsAll systems rev neg: except as marked Objective GeneralVS:Last Documented: Result Date Time Pulse Ox 99 09/07 2140 Pulse 86 09/07 2140 B/P Mean 84.0 09/07 2130 B/P 120/60 09/07 2130 Vital Signs Date Temp Pulse Resp B/P B/P Mean Pulse Ox FiO2 09/07 86-96 120/60 84.0 98-99 PATIENT WEIGHT: Weight (lb): 172Weight (oz): 6.42Weight (kg): 78.200 Physical ExamHEENT: normocephalic w/o injuryLungs: unlabored breathingBreasts: deferredNeuro: Exam: alert, oriented x3, normal speechAbdomen: gravid, soft, no abnormal tenderness, no guardingMusculoskeletal: painless range of motionGenitourinary: no flank painUterine activity: Monitor: toco Frequency (description): nonePelvic exam: Pelvis clinically adequate: yes Vulvar lesions: none Vagina: normal Sterile speculum exam: visually closed, physiological discharge, no pooling, no bleedingCervical/ exam: Dilatation (cm): 0 - closed Effacement (%): 0 station: - 3 FHR evaluation: Baseline: 150 bpm Variability: minimal < or = 5 bpm Accelerations: absent Decelerations: few mild variables of prematurity FHR category: tracing overall reassuring for EGAMembranes: Membranes: status undeterminedLower extremities: Edema: none Colleen's sign: negative Calf tenderness: negative ResultsFindings/Data:Laboratory Tests: 09/07 Other Body Source Membrane Rupture (NEGATIVE) POSITIVE H Urines Urine Color (YEL/STRAW) STRAW Urine Appearance (CLEAR) CLEAR Urine pH (5.0 - 7.0) 7.0 Ur Specific [place] (1.005 - 1.030) 1.006 Urine Protein (NEGATIVE) [...] /LPF) TRACE Diagnosis, Assessment Plan Diagnosis, Assessment PlanProblem List/A P: 1. 29 weeks gestation of 2. premature rupture of membranes (PPROM) delivered, current hospitalization Free Text A P:21 y/o female at 29-3/7 weeks who presents with PROM; ROM plus is positive. There is no evidence of active labor. tracing is reassuring. Patient is managed by Dr. Burciaga and the OB Hospitalist Service is covering hispatients at this time.Plan: admit to inpatient, transfer to antepartum; PPROM protocol; Continuous EFM; Consult MFMPlan discussed with: patient, parentTime spent: Time spent on patient care (minutes): 35 >50% spent on counseling/coordination of care: yes at 0549 RPT #:[id number] OF REPORTCLClinical nuyx9638-84-42Q93:43:00G.NETH93166866-4059QIZsyum able for patient hhkgHXHOHDJOJZLJWF5682-80-85O06:49:56 [facility] 2022-08-06 11:00:00 [id number] ABbPhcRzFoDrcyDw86rgnHMPGSZSW sq9i44g16i+IFgFUfpS+asJbUpa7645-81-28I86:00:00 [facility] ExamREPORT#:[id number] REPORT STATUS: SignedDATE:08/06/22 TIME: 1100 PATIENT: LUIS EDMONDS UNIT #: [id number]#: [id number] ROOM/BED:: 02 AGE: 21 SEX: F ATTEND: Effie Solitario AUTHOR: Effie Solitario MD * ALL edits or amendments must be made on the electronic/computer document * Medical Screening Exam Provider AttestationAttestation:The QMP MSE reviewed. DATE 08/03/2019Notified at 1523Provider at bedside at 1523Comments:21 Y/O IUP 24 2/7 presents due to cramping. at 1101 RPT #:[id number] OF REPORTCLClinical yrud0645-15-95Y41:00:00G.MSKQ30783928-8676RWGdaeo able for patient yussMFDFLQSZXPPSUJ7582-14-51P28:02:07 [facility] 2022-08-06 11:00:00 [id number] vSgQUacI58rnd7hwkwTyeulATzTpy W/zPxJzRAqxL1yNCkGR70Db0BSV7134-95-09W98:00:00 [facility] Evaluation NoteREPORT#:[id number] REPORT STATUS: SignedDATE:08/06/22 TIME: 1100 PATIENT: LUIS EDMONDS UNIT #: [id number]#: [id number] ROOM/BED:: 02 AGE: 21 SEX: F ATTEND: Effie Solitario [facility] AUTHOR: Effie Solitario MD * ALL edits or amendments must be made on the electronic/computer document * OLAG HistoryChief complaint: crampingHPI:21 Y/O IUP 24 2/7 presents due to cramping. She refers good movements and denies any gush of vaginal fluids, vaginal bleeding.Verbal consent obtained from patient to discuss history, lab results, treatment,plan and any other pertinent information in front of patient's companions. history: : 2 Term: 1 Living children: 1Current : EDC: 11/20/22 EGA (weeks/days): 24 weeksPast medical history: denies PMHPast surgical history: tonsils/adenoidsSocial history: no alcohol use, no tobacco use, no drug useFamily historyFATHER Family History: Heart diseaseMOTHER Family History: CancerMOTHERRelation not specified for: Family History: Diabetes FH: multiple sclerosis Medications:PrenatalAllergiesUncoded Allergies:MARCUS ACID- THROAT SWELLING (Severe, 08/03/22) Review of SystemsAdditional notes:Constitutional:Denies: chills, fatigue, fever, generalized weakness, lethargy, malaise. Respiratory:Denies: productive cough (sputum), SOB. GI:Denies: abdominal pain, constipation, diarrhea, nausea, vomiting. :Refers: crampingDenies: urgency, vaginal bleeding. Neuro:Denies: headache Objective GeneralVS:Last Documented: Result Date Time B/P Mean 86.0 08/03 1525 Pulse Ox 100 08/03 1525 B/P 117/65 08/03 1525 Pulse 95 08/03 1525 Resp 18 08/03 1511 PATIENT WEIGHT: Weight (lb): 166Weight (oz): 7.18Weight (kg): 75.500 Physical ExamAdditional comments:Gen: PEUs6Tatyz: normal respiratory effortNeuro: Exam: alert, oriented z9Ibviwqy: gravid, soft Uterine activity: Monitor: toco Frequency (description): None Frequency (minutes): CONSTRUCTION HELPER: Normal exteral genitalia Cervical/ exam: Speculum exam: no discharge Dilatation (cm): FT Effacement (%): thick station: high Presentation: Membrane status: FHR evaluation: FHR category: category I Diagnosis, Assessment Plan Diagnosis, Assessment PlanProblem List/A P: 1. 24 weeks gestation of Free Text A P:Initial gepd6565Sqldytc presents due to cramping, will send UA and FFN Re-ejchcvwbyo9816YV and FFN negative 21 y/o IUP 24 2/ presents due to cramping. FFN and UA negative. Patent found to be hemodynamically stable with normal vital signs, category I strip and found not to be in labor. 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 Assessment: no evidence laborImpression: reactive NSTPlan: discharge homePlan discussed with: patient, nurse at 1106 RPT #:[id number] OF REPORTCLClinical dedu5486-25-62H91:00:00G.[id number] able for patient hktuYHVSYDMSGVQQDO1746-50-81W22:07:07 [facility] 2022-03-06 16:08:00 [id number]+rd4CTt llOuTxTpnijFo3JU9wvHiwuWYHI92 NINe7RonUesWL2DywntbWJihBC81627-12-67E43:08:00 [facility] ([facility])emergency provider reportreport#:[id number] report status: signeddate:03/06/22 time: 1608 patient: luis edmonds unit #: [id number]#: [id number] room/bed:age: 21 sex: f pcp phys: emily artis mdservice dt: 03/06/22 author: ghanshyam chavez md * all edits or amendments must be made on the electronic/computer document * hpi-ankle prob/inj free text hpi notesfree text hpi qlaun00-whca-vrs female presents with right ankle and foot pain. patient reports while going down stairs that were wet from rain today she slipped and twisted her right ankle. denies trauma elsewhere. generalinitial greet date/time 03/06/22 1508 presentationchief complaint injury r review of systems focused review of systemsmusculoskeletalreports: extremity pain, extremity swelling. skindenies: laceration. past medical history - adultstated complaint r ankle injuryallergiesuncoded allergies:malic acid (severe, tongue swelling, throat closing 12/24/17) home medicationsactive scriptsibuprofen (motrin) 600 mg po qid prn prn pain ibuprofen (motrin) 600 mg po qid prn prn pain #30 tabs prov: 11/11/21 calculated suicide risk (nurs) no riskpast medical history:reports: asthma. denies: diabetes mellitus, gerd/gastritis, hypertension, kidney disease/stones, seizure disorder. additional medical historychronic pinched nerveadditional surgical historytonsilectomysmoking status for patients 13 years old or older: never smoker physical exam vital signsvital signsfirst documented: result date time pulse ox 99 03/06 1506 b/p 115/75 / 1506 b/p mean 88 03/06 1506 o2 [...] 1506 review of vital signs reviewed focused pegeneral/const general/const awake, alert, no acute distressms ankle/foot text/dict noteright ankle with tenderness laterally, mild swelling. foot with mild tenderness, no deformity. 2+ dp and pt pulses. sensation intact. ankle with full range of motion.skin skin color nl interpretation diagnostics lab results interpretationresultsrecent impressions:radiology - xr foot 3 + v rt 03/06 1549 report impression - status: signed entered: 03/06/2022 1604 impression: no fractures or dislocation impression by: sherlyn pickering m.d.radiology - xr ankle 3 + v rt 03/06 1556 report impression - status: signed entered: 03/06/2022 1605 impression: no fracture or dislocation impression by: sherlyn pickering m.d. re-evaluation mdm free text mdm notesfree text mdm cfizb33-vtsd-ujq female presents with right ankle/foot injury. x-rays without bony abnormalities. ankle bandaged with dorothy bandage. discharge home with pain control, pcp follow-up, ortho referral if needed for consideration of mri if pain persists. ed coursemedication(s) orderedmedication(s) ordered:central nervous system agents sig/victoriano start time last medication dose route stop time status admin hydrocodone bitart/ 1 tab x1ed sta 03/06 1556 dc 03/06 acetaminophen po 03/06 1557 1607 acetaminophen 650 mg x1ed sta 03/06 1552 can po 03/06 1553 ibuprofen 800 mg x1ed sta 03/06 1552 dc 03/06 po 03/06 1553 1607 patient discharge departure vital signs/conditionvital signsfirst documented: result date time pulse ox 99 [...] signs available at the time of this entry have been reviewed. clinical impressionclinical impressionprimary impression: ankle sprainsecondary impressions: foot sprain disposition decisiondischarge )( discharged to home yes )( time 1609 )( date 03/06/22 discharge/care plancounseled regarding diagnosis, imaging studies, prescriptions, need for follow-up, when to return to ed(auto) prescriptionscurrent visit scriptsdiclofenac sodium (diclofenac sodium 3%) 1 gm topical bid diclofenac sodium (diclofenac sodium 3%) 1 gm topical bid #100 gm ibuprofen (motrin) 800 mg po tid prn prn pain ibuprofen (motrin) 800 mg po tid prn prn pain #30 tabs dme - crutches [facility]crutch [facility]) [facility]ut[facility] (crutch set) each [facility] #1 crutch set of choice patient instructions ed ankle sprain (adult), ed foot sprain, ed ricereferralsprovider referral: cheli gamino md follow-up: as needed notes: orthopedic surgeon address: [address] [place] [id number] provider group: primary care follow-up: 1 week departure formsalvin pcp listwork/school excuse variable restrictions apply through 03/18/22 may return to work/school 03/09/22 any restrictions wear an ortho boot discharge notei have spoken with the patient and/or caregivers. i have explained the patient'scondition, diagnoses and treatment plan based on the information available to meat this time. i have answered the patient's and/or caregiver's questions and addressed any concerns. the patient and/or caregivers have as good an understanding of the patient's diagnosis, condition and treatment plan as can beexpected at this point. the vital signs have been stable. the patient's condition is stable and appropriate for discharge from the emergency department. the patient will pursue further outpatient evaluation with the primary care physician or other designated or consulting physician as outlined in the discharge instructions. the patient and/or caregivers are agreeable to this planof care and follow-up instructions have been explained in detail. the patient and/or caregivers have received these instructions in written format and have expressed an understanding of the discharge instructions. the patient and/or caregivers are aware that any significant change in condition or worsening of symptoms should prompt an immediate return to this or the closest emergency department or a call to 911. electronically signed by ghanshyam chavez md on 03/06/22 at 1747rpt #:[id number] of reportEDEmergency department hkftvd4850-13-11S81:08:00G.ZAEO01522185-1165CWQhp ilable for patient adgrYLEEXKUPEADUDY3620-43-00I67:47:46 [facility] 2021-11-11 00:46:00 [id number] fF+gtx2cYQR7ftU5vHlukkRva9dGy Gk6WraKosvIUKcQtsgf9tXZZFYN5655-44-79M91:46:00 [facility] ([facility])EMERGENCY PROVIDER REPORTREPORT#:[id number] REPORT STATUS: SignedDATE:11/11/21 TIME: 45 PATIENT: LUIS EDMONDS UNIT #: [id number]#: [id number] ROOM/BED:AGE: 20 SEX: F PCP PHYS: Emily Artis AUTHOR: Kishor Bishop DO * ALL edits or amendments must be made on the electronic/computer document * HPI-Back Pain Under 40 Free Text HPI NotesFree Text HPI Notes20 yo female with pmh of asthma and chronic back pain presents with c/o back pain x 4 days. Denies fever, chills, cough, uri symptmos. Denies urinary frequency, urgency or dysuria. Denies sick contacts. GeneralInitial Greet Date/Time 11/11/2122 PresentationChief Complaint Pain, lumbarHx Obtained From Patient)( Sudden in Onset? No Risk-Back Pain Under 40 Risk StratificationEpidural Hematoma No risk factorsEpidural Abscess No risk factors Review of Systems ROS StatementsAll systems rev neg except as marked. Past Medical History - AdultStated Complaint FLANK PAINAllergiesUncoded Allergies:MALIC ACID (Severe, TONGUE SWELLING, THROAT CLOSING 12/24/17) Home MedicationsDiscontinued ScriptsAMOXICILLIN/CLAV K (AUGMENTIN 875/125 MG) 875 MG PO Q12H 10 Days #20 TABS Prov: 08/08/21 DC: 11/11/2121 Therapy completed Discontinued Reported MedicationsPNV WITH FE FUMARATE/FA () 1 TAB PO DAILY Calculated Suicide Risk (nurs) No riskPast Medical History:Reports: Asthma. Denies: Diabetes mellitus, GERD/gastritis, Hypertension, Kidney disease/stones, Seizure disorder. Additional Medical Historychronic pinched nerveAdditional Surgical HistorytonsilectomySmoking status: Smoking status for patients 13 years old or older: Unknown,if ever smoked Physical Exam Vital SignsVital SignsFirst Documented: Result Date Time Pulse Ox 98 11/11 0018 B/P 112/59 11/11 0018 B/P Mean 76 11/11 0018 O2 Delivery Room air 11/11 17 Temp 36.4 11/11 001 Pulse 81 11/11 0018 Resp 18 11/11 17 Last Documented: Result Date Time Pulse Ox 100 11/11 52 B/P 116/62 11/11 52 B/P Mean 80 11/11 52 O2 Delivery Room air 11/11 52 Temp 36.4 11/11 52 Pulse 76 11/11 52 Resp 18 11/11 52 Review of Vital Signs Reviewed Basic Physical ExamBasic PE HEAD: Atraumatic/NC, EYES: PERRL, conj clear, ENT: Membranes moist, NECK: Supple, RESP: No resp distress, CV: Reg rate rhythm, ABD: Soft/non-tender, EXT: No gross abnormality, SKIN: No rashes, warm/dry, PSYCH: NL thought content Focused PEGeneral/Const General/Const Awake, Alert, No acute distressMS Back Back Inspection NL, Full range of motion Flank/Spine/Paraspinal Thorac paraspinal tend, Lumbar paraspinal tend. Negative: Thoracic spine tender, Lumbar spine tender. Neurologic Neurologic Oriented X3, Speech NL, No motor deficits, No sensory deficits Interpretation Diagnostics Lab Results InterpretationResultsLaboratory Tests: 11/11 40 Urines POC Urine pH (5.0 - 7.0) 7 Ur Specific [place] (1.005 - 1.030) 1.010 POC Urine Protein (NEGATIVE) NEGATIVE POC Ur Glucose (UA) (NEGATIVE) NEGATIVE POC Urine Ketones (NEGATIVE) NEGATIVE POC Urine Blood (NEGATIVE) NEGATIVE POC Urine Nitrite (Negative) NEGATIVE Urine Bilirubin (NEGATIVE) NEGATIVE POC Urine Urobilinogen (0.2 - 1.0) NORMAL POC U Leukocyte Esteras (NEGATIVE) Negative Lab StatementLaboratory studies reviewed and considered in the medical decision-making. Re-Evaluation MDM Re-Evaluation/ProgressRe-Evaluation/Progress Text/Dict NoteUA is negative for UTI. HCG was negative. Time of Re-Eval 0107 Re-Eval Status Improved Patient Discharge Departure Vital Signs/ConditionVital SignsFirst Documented: Result Date Time Pulse Ox 98 11/11 0018 B/P 112/59 11/11 0018 B/P Mean 76 11/11 0018 O2 Delivery Room air 11/11 0018 Temp 36.4 11/11 0018 Pulse 81 11/11 0018 Resp 18 11/118 Last Documented: Result Date Time Pulse Ox 100 11/11 0053 B/P 116/62 11/11 0053 B/P Mean 80 11/113 O2 Delivery Room air 11/11 52 Temp 36.4 11/11 0053 Pulse 76 11/11 0053 Resp 18 11/113 All vital signs available at the time of this entry have been reviewed. Condition Stable Clinical ImpressionClinical ImpressionPrimary Impression: Back pain Disposition DecisionDischarge )( Discharged to Home Yes )( Time 0046 )( Date 11/11/21 Discharge/Care PlanCounseled Regarding Diagnosis, Lab results, Prescriptions, Need for follow-up, When to return to ED(Auto) PrescriptionsCurrent Visit ScriptsIBUPROFEN (MOTRIN) 600 MG PO QID PRN PRN PAIN IBUPROFEN (MOTRIN) 600 MG PO QID PRN PRN PAIN #30 TABS Patient Instructions ED Back Pain (Acute or Chronic)Additional InstructionsReturn to the ER if symptoms worsenDeparture Xander PCP LIST Discharge NoteI have spoken with the patient and/or caregivers. I have explained the patient'scondition, diagnoses and treatment plan based on the information available to meat this time. I have answered the patient's and/or caregiver's questions and addressed any concerns. The patient and/or caregivers have as good an understanding of the patient's diagnosis, condition and treatment plan as can beexpected at this point. The vital signs have been stable. The patient's condition is stable and appropriate for discharge from the emergency department. The patient will pursue further outpatient evaluation with the primary care physician or other designated or consulting physician as outlined in the discharge instructions. The patient and/or caregivers are agreeable to this planof care and follow-up instructions have been explained in detail. The patient and/or caregivers have received these instructions in written format and have expressed an understanding of the discharge instructions. The patient and/or caregivers are aware that any significant change in condition or worsening of symptoms should prompt an immediate return to this or the closest emergency department or a call to 911. at 0107RPT #:[id number] OF REPORTEDEmergency department ropzay2929-94-23U00:46:00G.KBOJ22583142-8386RTCra ilable for patient jeaiHSRREVHIWHRABK2051-54-90Q49:07:45 [facility] 2021-08-08 22:23:00 [id number] mRocWPJjiJp/f+JKeDZb+VkZUaMtK oZZbqX12SvSDwZKWn9yvdJe8B6d9886-06-30V00:23:00 [facility] ([facility] PROVIDER REPORTREPORT#:[id number] REPORT STATUS: SignedDATE:08/08/21 TIME: 2222 PATIENT: LUIS EDMONDS UNIT #: [id number]#: [id number] ROOM/BED:AGE: 20 SEX: F PCP PHYS: Emily Artis AUTHOR: Ghanshyam Chavez MD * ALL edits or amendments must be made on the electronic/computer document * HPI-Recheck W/B/S GeneralInitial Greet Date/Time 08/08/212208 PresentationChief Complaint Bleeding from R breast Free Text HPI NotesFree Text HPI Fghkt60-qyes-zjj female who is 4 months presents with bleeding from right breast. She reports she noticed blood in her breastmilk while pumping last night and today. She also reports pain in right breast. Denies skin changes. Denies blood dripping from nipple. Patient also reports subjective fever. Review of Systems Focused Review of SystemsConstitutionalReports: Fever. SkinDenies: Erythema, Rash. Past Medical History - AdultStated Complaint BLEEDING FROM R BREASTAllergiesUncoded Allergies:MALIC ACID (Severe, TONGUE SWELLING, THROAT CLOSING 12/24/17) Home MedicationsReported MedicationsPNV WITH FE FUMARATE/FA () 1 TAB PO DAILY Past Medical History:Reports: Asthma. Denies: Diabetes mellitus, GERD/gastritis, Hypertension, Kidney disease/stones, Seizure disorder. Additional Medical Historychronic pinched nerveAdditional Surgical HistorytonsilectomySmoking status: Smoking status for patients 13 years old or older: Never Smoker Physical Exam Vital SignsVital SignsFirst Documented: Result Date Time Pulse Ox 98 08/08 2217 B/P 119/59 08/08 2217 B/P Mean 79 08/08 2217 O2 Delivery Room air 08/08 2217 Temp 37.9 08/08 2217 Pulse 99 08/08 2217 Resp 18 08/08 2217 Last Documented: Result Date Time Pulse Ox 98 08/08 2217 B/P 119/59 08/08 2217 B/P Mean 79 08/08 2217 O2 Delivery Room air 08/08 2217 Temp 37.9 08/08 2217 Pulse 99 08/08 2217 Resp 18 08/08 2217 Review of Vital Signs Reviewed Focused PEGeneral/Const General/Const Awake, Alert, No acute distress, Well appearing, Not toxic appearingSkin Skin Color NL Additional PEResp/Chest Text/Dict NotesR breast with increased warmth, w/o skin changes. Breast Tenderness R. Negative: Dimpling R, Discoloration R, Erythema R, Fluctuance R, Mass R, Nipple discharge R, Skin changes L. Re-Evaluation MDM Free Text MDM NotesFree Text MDM Weawq77-qcmp-bcl female presents with blood in breastmilk from right breast. Exam with increased warmth of right breast. No evidence of abscess. Suspect mastitis. Discharged home with antibiotics and close OB follow-up. Return precautions provided. ED CourseMedication(s) OrderedMedication(s) Ordered:Central Nervous System Agents Sig/Victoriano Start time Last Medication Dose Route Stop Time Status Admin Acetaminophen 650 MG X1ED STA 08/08 2208 DC 08/08 PO 08/08 Patient Discharge Departure Vital Signs/ConditionVital SignsFirst Documented: Result Date Time Pulse Ox 98 08/08 2217 B/P 119/59 08/08 2217 B/P Mean 79 08/08 2217 O2 Delivery Room air 08/08 2217 Temp 37.9 08/08 2217 Pulse 99 08/08 2217 Resp 18 08/08 2217 Last Documented: Result Date Time Pulse Ox 98 08/08 2217 B/P 119/59 08/08 2217 B/P Mean 79 08/08 2217 O2 Delivery Room air 08/08 2217 Temp 37.9 08/08 2217 Pulse 99 08/08 2217 Resp 18 08/08 2217 All vital signs available at the time of this entry have been reviewed. Clinical ImpressionClinical ImpressionPrimary Impression: Mastitis, right, acute Disposition DecisionDischarge )( Discharged to Home Yes )( Time 2224 )( Date 08/08/21 Discharge/Care PlanCounseled Regarding Diagnosis, Prescriptions, Need for follow-up, When to returnto ED(Auto) PrescriptionsCurrent Visit ScriptsAMOXICILLIN/CLAV K (AUGMENTIN 875/125 MG) 875 MG PO Q12H 10 Days #20 TABS Patient Instructions ED MastitisReferrals PRIMARY CARE: 2-3 DaysFollow up with your OB in 3 days. Discharge NoteI have spoken with the patient and/or caregivers. I have explained the patient'scondition, diagnoses and treatment plan based on the information available to meat this time. I have answered the patient's and/or caregiver's questions and addressed any concerns. The patient and/or caregivers have as good an understanding of the patient's diagnosis, condition and treatment plan as can beexpected at this point. The vital signs have been stable. The patient's condition is stable and appropriate for discharge from the emergency department. The patient will pursue further outpatient evaluation with the primary care physician or other designated or consulting physician as outlined in the discharge instructions. The patient and/or caregivers are agreeable to this planof care and follow-up instructions have been explained in detail. The patient and/or caregivers have received these instructions in written format and have expressed an understanding of the discharge instructions. The patient and/or caregivers are aware that any significant change in condition or worsening of symptoms should prompt an immediate return to this or the closest emergency department or a call to 911. at 0001RPT #:[id number] OF REPORTEDEmergency department rykqtx3361-52-44U33:23:00G.CJRR23305724-2374SFLey ilable for patient ohxgUEKBMXLVXVKNQR8531-23-42H06:01:57 [facility] 2021-03-28 09:04:00 [id number] leRvhJlPQMx0dzr9KJV+uKTCFEOmC OFzceI7Vf2d/3bX7eOqXTL0ulkhNSkAqrI9370-49-79D53:0 4:00 [facility] ([facility])OB Disch PostpartumREPORT#:[id number] REPORT STATUS: SignedDATE:03/28/21 TIME: 903 PATIENT: LUIS EDMONDS UNIT #: [id number]#: [id number] [facility]DOB: [birth year] AGE: 20 SEX: F ATTEND: Luis Burciaga MDADM AUTHOR: Luis Burciaga MD * ALL edits or amendments must be made on the electronic/computer document * Subjective SubjectiveAdmission EGA: Weeks: 37 Days: 3EGA at delivery (wks/days): 37 weeks (3d) Discharge Summary GeneralAssessment: nml progressHospital course: induction of labor, spontaneous vag delivery, nml postop/postpart careDischarge condition: stableDischarge to: Home/Self CareDischarge diagnosis: full-term uncomp deliveryDischarge management: less than 30 minsBaby A: Vaginal delivery: spontaneous status: live born Gender: male 1 minute: 8 5 minutes: 9Nursing data:The data set between the solid lines has been imported from nursing documentation. Any exceptions have been noted below under Provider comments. Delivery date A: 03/26/21 Delivery time infant A: 1807Birthweight (gm) infant A: 3200Feeding preference: Gender A: FemaleApgar 1 minute A: 8Apgar 5 minutes infant A: 9Apgar 10 minutes A: Provider comments on imported nursing data: [] Plan: routine care, discharge today Discharge InstructionsInstructions: routine instr sheet givenDiet: Resume Home Diet/FeedsActivity: Resume Normal ActivityAdditional discharge routines: None at 0905 RPT #:[id number] OF REPORTOBObstetric qylo6017-01-37F53:04:00G.WWQL22502859-6201JWTearq able for patient zdtaRCPWUGOSDSUQFA3431-73-22A96:05:34 [facility] 2021-03-28 09:03:00 JEsrwyfwzkt34156212w 5lmDo+eLN2HXj/jv4+IzQaKuREKa2 aJXjxeifdEE9Zjz8rMnqY4MKt6/2qMVgcl0906-46-66L56:0 3:00 [facility] ([facility])OB Postpart Progr NoteREPORT#:[id number] REPORT STATUS: SignedDATE:03/28/21 TIME: 902 PATIENT: LUIS EDMONDS UNIT #: [id number]#: [id number] [address] AGE: 20 SEX: F ATTEND: Luis Burciaga [facility] AUTHOR: Luis Burciaga MD * ALL edits or amendments must be made on the electronic/computer document * Subjective SubjectiveAdmission EGA: Weeks: 37 Days: 3EGA at delivery (wks/days): 37 weeks (3d)Status/Day: post (d2)Patient reports: Patient reports: Yes no complaints, Yes normal lochia, Yes pain management effective, Yes tolerating po well, Yes voiding well, Yes voiding without pain, Yes tolerating ambulation, Yes flatus Objective Nursing Documentation ReviewNursing Data:The data set between the solid lines has been imported from nursing documentation. Any exceptions have been noted below under Provider comments. Feeding preference: Post hemorrhage risk score: Medium Risk for Hemorrhage. Provider comments on imported nursing data: [] GeneralVS:Vital Signs: Date Time Temp Pulse Resp B/P B/P Pulse O2 O2 Flow FiO2 Mean Ox Delivery Rate 03/28 0053 37.1 68 16 124/75 98 03/27 2050 37.2 68 16 123/81 98 03/27 1536 37.0 65 17 120/67 97 03/27 1120 37.0 69 17 108/67 97 PATIENT WEIGHT: Weight (lb): 179Weight (oz): Weight (kg): 81.193 Physical ExamAbdomen: soft, no abnormal tenderness, no guardingUterus: involution appropriate, non-tenderFundus: firm, below the umbilicusLochia: normalLacerations: Perineal laceration(s): NoneLower extremities: Edema: none Colleen's sign: negative Calf tenderness: negative Diagnosis, Assessment Plan Diagnosis, Assessment PlanAssessment: nml progressPlan: routine care, discharge today at 0904 RPT #:[id number] OF REPORTPRProgress Wymy6421-93-11C74:03:00G.GGCA86999278-4156JZQfbvv able for patient mcsuWPEBOZVTKTSMGP4546-72-54X95:04:53 [facility] 2021-03-27 09:21:00 NRwxjjvdfwg63061624e IKA8vLXP6a1geWpNnH6B9396wfPk0 jd3n2QDh5y+F2glphbsNWzgM4PTPlpWKr76927-34-32I69:2 1:00 [facility] ([facility])OB Postpart Progr NoteREPORT#:[id number] REPORT STATUS: SignedDATE:03/27/21 TIME: 920 PATIENT: LUIS EDMONDS UNIT #: [id number]#: [id number] [address] AGE: 20 SEX: F ATTEND: Luis Burciaga MDADM AUTHOR: Luis Burciaga MD * ALL edits or amendments must be made on the electronic/computer document * Subjective SubjectiveAdmission EGA: Weeks: 37 Days: 3EGA at delivery (wks/days): 37 weeks (3d)Status/Day: post (d1)Patient reports: Patient reports: Yes no complaints, Yes normal lochia, Yes pain management effective, Yes tolerating po well, Yes voiding well, Yes voiding without pain, Yes tolerating ambulation, Yes flatus Objective Nursing Documentation ReviewNursing Data:The data set between the solid lines has been imported from nursing documentation. Any exceptions have been noted below under Provider comments. Feeding preference: Post hemorrhage risk score: Medium Risk for Hemorrhage. Provider comments on imported nursing data: [] GeneralVS:Vital Signs: Date Time Temp Pulse Resp B/P B/P Pulse O2 O2 Flow FiO2 Mean Ox Delivery Rate 03/27 0734 36.9 74 17 124/82 97 03/27 0440 36.9 69 16 116/75 99 03/27 0100 37.0 83 16 108/68 97 09/08 2115 37.1 62 18 131/79 98 09/08 2035 94.0 09/08 2035 59 126/73 09/08 2021 82.0 09/08 2021 76 129/57 09/08 1956 37.1 16 09/08 1956 76.0 09/08 1956 72 117/53 09/08 1940 69 100 09/08 1935 87.0 09/08 1935 69 125/62 09/08 1925 78 100 09/08 1920 86.0 09/08 1920 87 120/60 09/08 1905 80.0 09/08 1905 75 119/56 09/08 1854 87.0 09/08 1854 64 158/60 09/08 1853 83 91 09/08 1845 65 100 09/08 1833 73 91 09/08 1830 75 93 09/08 1827 87 92 09/08 1818 90.0 09/08 1818 79 113/75 09/08 1815 70 100 [...] 0944 78 121/79 PATIENT WEIGHT: Weight (lb): 179Weight (oz): Weight (kg): 81.193 Physical ExamAbdomen: soft, no abnormal tenderness, no guardingUterus: involution appropriate, non-tenderFundus: firm, below the umbilicusLochia: normalLacerations: Perineal laceration(s): NoneLower extremities: Edema: none Colleen's sign: negative Calf tenderness: negative ResultFindings/Data:Laboratory Tests: 03/27 0420 Hematology WBC (4.5 - 11.0 x10 3/uL) [...] % (Auto) (14.0 - 32.0 %) 24.9 Ashe % (Auto) (4.8 - 9.0 %) 9.4 H Eos % (Auto) (0.3 - 3.7 %) 0.6 Baso % (Auto) (0.0 - 2.0 %) 0.2 Neut # (Auto) (2.0 - 7.6 x10 3/uL) 8.09 H Lymph # (Auto) (1.0 - 3.8 x10 3/uL) 3.13 Ashe # (Auto) (0.1 - 0.8 x10 3/uL) 1.18 H Eos # (Auto) (0.0 - 0.2 x10 3/uL) 0.07 Baso # (Auto) (0.0 - 0.2 x10 3/uL) 0.03 Abs Immat Gran (auto) (0.00 - 0.03 x10 3/uL) 0.06 H Add Manual Diff NO Immature Gran % (0.0 - 2.0 %) 0.5 Nucleated RBC % (0 - 0 %) 0.0 Nucleated RBCs # (Man) (0.0 - 0.1 x10 3/uL) 0.00 Diagnosis, Assessment Plan Diagnosis, Assessment PlanAssessment: nml progressPlan: routine care at 0922 RPT #:[id number] OF REPORTPRProgress Lpkd7857-50-04T41:21:00G.GAUB80010070-2053DDFolhy able for patient rmapGKMRXMSSKYSMUK5032-80-40V95:22:52 [facility] 2021-03-26 18:49:00 IFemajfqfkq42388979g 1PzykWFFS70ulEaLwN+sBRAJck34u U2UcnHUtgV98n/C2F+4bb34qdI1x3cEtxe0476-21-91U39:4 9:00 [facility])OB Delivery NoteREPORT#:[id number] REPORT STATUS: SignedDATE:03/26/21 TIME: 184 PATIENT: LUIS EDMONDS UNIT #: [id number]#: [id number] [address] AGE: 20 SEX: F ATTEND: Luis Burciaga MDADM AUTHOR: Luis Burciaga MD * ALL edits or amendments must be made on the electronic/computer document * OB Delivery Nursing Documentation ReviewNursing data:The data set between the solid lines has been imported from nursing documentation. Any exceptions have been noted below under Provider comments. ROM date: 03/26/21 ROM time: 1105Membranes rupture method: AROMAmniotic fluid color: ClearAmniotic fluid amount: Steroids prior to arrival: Antibiotic prophylaxis given: Post hemorrhage risk score: Low Risk for Hemorrhage. Delivery date infant A: 03/26/21 Delivery time infant A: 1807Birthweight (gm) A: 3200Weight (lb) A: Weight (oz) infant A: Gender A: FemaleApgar 1 minute A: 5 minutes A: 10 minutes infant A: Cord pH obtained A: Vacuum time A: Vacuum # pulls infant A: Vacuum # popoffs A: QBL at delivery: Provider comments on imported nursing data: [] Pre-deliveryAdmission EGA: Weeks: 37 Days: 3EGA at delivery (wks/days): 37 weeks (3d) Baby A InformationBaby A information Delivery date: 03/26/21 status: live born Gender: male 1 minute: 8 5 minutes: 9 Presentation: vertexABG details Baby A Cord blood gases: collectedNuchal cord Baby A Nuchal cord: yes (loose and reduced) Vaginal DeliveryVaginal delivery: Labor: spontaneous Medications/Devices used: oxytocin Vaginal delivery: spontaneous Amniotic fluid: clear Anesthesia type: epidural anesthesia Placenta: spontaneous Post delivery meds used: oxytocin Count: correct Mother's condition: mother stableLacerations: Perineal laceration(s): None Blood Loss/DetailsBlood loss at delivery: 50 at 1852 RPT #:[id number] OF REPORTOBObstetric gley2821-17-69Q70:49:00G.BTHM27930123-0353WATydyy able for patient xnfxPUKETHYRTGARDF2074-16-90S19:53:12 [facility] 2021-03-26 08:25:00 [id number] BWpIKLrjvDVRmmD4BXWnRZOzQx45o 1JKdMKSi4qb77cqslfILnKlcZJ+8265-93-85K30:25:00 [facility] ([facility])DT History PhysicalREPORT#:[id number] REPORT STATUS: SignedDATE:03/26/21 TIME: 824 PATIENT: LUIS EDMONDS UNIT #: [id number]#: [id number] [address] AGE: 20 SEX: F ATTEND: Luis Burciaga MDADM AUTHOR: Luis Burciaga MD * ALL edits or amendments must be made on the electronic/computer document * History PhysicalHistory PhysicalPlease care records and office H P at 2112 RPT #:[id number] OF REPORTHPHistory and physical ibgmywfowde7969-80-30Z59:25:00G.CDOZ66440499-6606 AVAvailable for patient qbwqSANXHDNDFAIELO3038-68-53V92:13:12 [facility] 2021-03-12 21:16:00 WKysvfdqlng80811415q DCFegXZf0XSWeFpR8Oe+eQ6KGiuAJ PSTS79kaBrUWeMWY+BhrXDWN27ENfMleBE2224-69-01H62:1 6:00 [facility] ([facility])OB Medical Screening ExamREPORT#:[id number] REPORT STATUS: SignedDATE:03/12/21 TIME: 2115 PATIENT: LUIS EDMONDS UNIT #: [id number]#: [id number] ROOM/BED:: 02 AGE: 20 SEX: F ATTEND: Effie Solitario MDADM AUTHOR: Effie Solitario MD * ALL edits or amendments must be made on the electronic/computer document * Medical Screening Exam Provider AttestationAttestation:The QMP MSE reviewed. Provider at bedside at 2114Comments:20 y/o GP0 IUP 35 4/7 presents due to leaking of fluid and contractions. at 2152 RPT #:[id number] OF REPORTOBObstetric liye0568-82-55G63:16:00G.NGTD21592392-2907XUCbgsq able for patient nuhkBJRGQMUOHFZMMY0331-91-11O39:52:56 [facility] 2021-03-12 21:16:00 NBfrgvbtolx23356751g ge4Ip6oHkf4giHpjpvueiZQLaZkhl 4uURvqOpG3ptmiyLxehcmyZ8nw5mgKQKKX6832-65-24N95:1 6:00 [facility] ClubOL[facility] Evaluation NoteREPORT#:[id number] REPORT STATUS: SignedDATE:03/12/21 TIME: 2115 PATIENT: LUIS EDMONDS UNIT #: [id number]#: [id number] [address] AGE: 20 SEX: F ATT[facility] AUTHOR: Effie Solitario MD * ALL edits or amendments must be made on the electronic/computer document * OLGA HistoryChief complaint: uterine contractions, suspected ruptured membHPI:20 y/o GP0 IUP 35 4/7 presents due to leaking of fluid and contractions. She refers good movements and denies any vaginal bleeding or recent exposure tVerbal consent obtained from patient to discuss history, lab results, treatment, plan and any other pertinent information in front of patient's companions. o COVID, fever or SOB. history: : 1Current : EDC: 04/12/21 EGA (weeks/days): 35 weeksPast medical history: depression, anxietyPast surgical history: tonsils/adenoidsSocial history: no alcohol use, no tobacco use, no drug useFamily historyFATHER Family History: Heart diseaseMOTHER Family History: CancerMOTHERRelation not specified for: Family History: Diabetes FH: multiple sclerosis Medications:Home Medications: Medication Dose/Rte/Freq Days Qty Entered Last Max Daily Dose Reviewed PNV WITH FE 1 TAB PO DAILY 12/25/20 FUMARATE/FA 1511 () Strength: 1 EACH TAB AllergiesUncoded Allergies:MALIC ACID (Severe, TONGUE SWELLING, THROAT CLOSING 12/24/17) Review of SystemsAdditional notes:Constitutional:Denies: chills, fatigue, fever, generalized weakness, lethargy, malaise. Respiratory:Denies: productive cough (sputum), SOB. GI:Denies: abdominal pain, constipation, diarrhea, nausea, vomiting. :Refers: gush of vaginal fluids and contractionsDenies: urgency, vaginal bleeding. Neuro:Denies: headache Objective GeneralVS:PATIENT WEIGHT: Weight (lb): Weight (oz): Weight (kg): Physical ExamAdditional comments:Gen: BMHh6Ctvbp: normal respiratory effortNeuro: Exam: alert, oriented o8Aytsriv: gravid, soft Uterine activity: Monitor: toco Frequency (description): uterine irritability Frequency (minutes): CONSTRUCTION HELPER: Normal exteral genitalia Cervical/ exam: Speculum exam: No pooling of amniotic fluid Dilatation (cm): 1 Effacement (%):50 station: -4 Presentation: VX Membrane status: IM, amnisure negative FHR evaluation: FHR category: category I Diagnosis, Assessment Plan Diagnosis, Assessment PlanProblem List/A P: 1. 35 weeks gestation of Free Text A P:initial mjli8190Jidoap presents due to gush of fluids and contractions. Will send UA and amnisure. Re-lgpgoxzvbw7995Dwjmjlr BPP 2355Awaiting BPP results. 0050Still awaiting BPP results 0105BPP 02/23 ISMA 8, no cervical change 20 y/o GP0 IUP 35 10/23 presented due to leaking of fluid and contractions, amnisure negative. Patent found to be hemodynamically stable with normal vital signs, category I strip and found not to be in labor. 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 Assessment: no evidence laborImpression: reactive NSTPlan: discharge homePlan discussed with: patient, nurse at 0104 [facility] #:[id number] OF REPORTOBObstetric qouv7620-75-35L38:16:00G.RLDL19666620-4114CAHkzub able for patient kxkjHAAPTFWCBUJUWN2899-32-02N93:05:05 [facility] 2021-03-01 06:09:00 AUmvqiejmcf61464501I 5QZj+YfdFhDtzQnUcovEl/H1zbELG yZyg+mw1w8Zk5SRuMXjNgQ+SSQCXBfdX6P5032-98-28M84:0 9:00 [facility]OL[facility] Evaluation NoteREPORT#:[id number] REPORT STATUS: SignedDATE:03/01/21 TIME: 608 PATIENT: LUIS EDMONDS UNIT #: [id number]#: [id number] [address] AGE: 20 SEX: F ATTEND: Luis Burciaga [facility] AUTHOR: Effie Solitario MD * ALL edits or amendments must be made on the electronic/computer document * See AddendumOLGA HistoryChief complaint: decreased movement, Pelvic pressureHPI:20 y/o IUP 34 0/7 presents due to decreased movements and pelvic pressure. She denies any gush of vaginal fluids, vaginal bleeding or recent exposure to COVID, fever or SOB.Verbal consent obtained from patient to discuss history, lab results, treatment,plan and any other pertinent information in front of patient's companions. history: : 1Current : EDC: 04/12/21 EGA (weeks/days): 34 weeksPast medical history: depression, AnxietyPast surgical history: tonsils/adenoidsSocial history: no alcohol use, no tobacco use, no drug useFamily historyFATHER Family History: Heart diseaseMOTHER Family History: CancerMOTHERRelation not specified for: Family History: Diabetes FH: multiple sclerosis Medications:Home Medications: Medication Dose/Rte/Freq Days Qty Entered Last Max Daily Dose Reviewed PNV WITH FE 1 TAB PO DAILY 12/25/20 03/01/21 FUMARATE/FA 6618 6202 () Strength: 1 EACH TAB AllergiesUncoded Allergies:MALIC ACID (Severe, TONGUE SWELLING, THROAT CLOSING 12/24/17) Review of SystemsAdditional notes:Constitutional:Denies: chills, fatigue, fever, generalized weakness, lethargy, malaise. Respiratory:Denies: productive cough (sputum), SOB. GI:Denies: abdominal pain, constipation, diarrhea, nausea, vomiting. :Denies: urgency, vaginal bleeding. Neuro:Denies: headache Objective GeneralVS:Last Documented: Result Date Time B/P Mean 85.0 03/01 0542 B/P 111/72 03/01 0542 Pulse 106 03/01 0542 Temp 98.1 03/01 0540 Resp 16 03/01 0540 Vital Signs Date Temp Pulse Resp B/P B/P Mean Pulse Ox FiO2 / 98.1 106 16 111/72 85.0 PATIENT WEIGHT: Weight (lb): Weight (oz): Weight (kg): Physical ExamAdditional comments:Gen: RUNi1Nsxvv: normal respiratory effortNeuro: Exam: alert, oriented x2Wnzuejs: gravid, soft Uterine activity: Monitor: toco Frequency (description): irregular Frequency (minutes): CONSTRUCTION HELPER: Normal exteral genitalia Cervical/ exam: Dilatation (cm): 0.5 Effacement (%): 50 station: -4 Presentation: VX Membrane status:IM FHR evaluation: FHR category: category I Diagnosis, Assessment Plan Diagnosis, Assessment PlanProblem List/A P: 1. 34 weeks gestation of 2. Decreased movement Free Text A P:initial puxe6763Bwdxyvs presents due to decreased movements and pelvic pressure. Will order BPP and UA. Dr Chavez will assume care at 0700 at 0647 Addendum 1: 03/01/21 0853 by Pearl Chavez DO BPP 02/23 ISMA NOT ON U/S SO I CALLED AND VERBAL REPORT FR TECH WAS 13 CMVERTEXVE EXT 1/2 CM, CLOSED INTERNALLY, THICK, POSTERIORD/C HOME W PRECAUTIONS.F/U W DR. BURCIAGA AT HER APT WEDNESDAY. at 0854 RPT #:[id number] OF REPORTOBObstetric btse1582-40-90C93:09:00G.AIQM90452149-9376CWRgdru able for patient oplwJFLZWZZQNGEFJP7433-44-44H15:54:49 [facility] 2021-03-01 06:09:00 MDbrpnmcsux33799752S ndjBXMhUWCmmAPaciM+XlRyxqUP1N gO1A0zlWWm8PBLMkmtHjXW5exoetLNJQ+c0111-21-66E61:0 9:00 [facility] ExamREPORT#:[id number] REPORT STATUS: SignedDATE:03/01/21 TIME: 608 PATIENT: LUIS EDMONDS UNIT #: [id number]#: [id number] [address] AGE: 20 SEX: F ATTEND: Luis Burciaga MDADM AUTHOR: Effie Solitario MD * ALL edits or amendments must be made on the electronic/computer document * Medical Screening Exam Provider AttestationAttestation:The QMP MSE reviewed. Provider at bedside at 0600Comments:IUP 34 0/7 presents due to decreased movements and pelvic pressure. at 0643 RPT #:[id number] OF REPORTOBObstetric riys7623-03-66K27:09:00G.ANBZ18877379-1340TCAfqyp able for patient tafmYNEFDZKXPDGSLK1271-21-97T84:43:28 [facility] 2021-03-01 06:09:00 XXjiancosbs18050199L 49s51GV5Hyg7KZXAta6BfoLMNjMsD GkUzNYCsZCTeTBGFaVVcx5I5kQio+6zc2l7903-86-10I98:0 9:00 [facility] ([facility])OLGA Evaluation NoteREPORT#:[id number] REPORT STATUS: SignedDATE:03/01/21 TIME: 608 PATIENT: LUIS EDMONDS UNIT #: [id number]#: [id number] [address] AGE: 20 SEX: F ATTEND: Luis Burciaga [facility] AUTHOR: Effie Solitario MD * ALL edits or amendments must be made on the electronic/computer document * OLGA HistoryChief complaint: decreased movement, Pelvic pressureHPI:20 y/o IUP 34 0/7 presents due to decreased movements and pelvic pressure. She denies any gush of vaginal fluids, vaginal bleeding or recent exposure to COVID, fever or SOB.Verbal consent obtained from patient to discuss history, lab results, treatment,plan and any other pertinent information in front of patient's companions. history: : 1Current : EDC: 04/12/21 EGA (weeks/days): 34 weeksPast medical history: depression, AnxietyPast surgical history: tonsils/adenoidsSocial history: no alcohol use, no tobacco use, no drug useFamily historyFATHER Family History: Heart diseaseMOTHER Family History: CancerMOTHERRelation not specified for: Family History: Diabetes FH: multiple sclerosis Medications:Home Medications: Medication Dose/Rte/Freq Days Qty Entered Last Max Daily Dose Reviewed PNV WITH FE 1 TAB PO DAILY 12/25/20 03/01/21 FUMARATE/FA 1511 0538 () Strength: 1 EACH TAB AllergiesUncoded Allergies:MALIC ACID (Severe, TONGUE SWELLING, THROAT CLOSING 12/24/17) Review of SystemsAdditional notes:Constitutional:Denies: chills, fatigue, fever, generalized weakness, lethargy, malaise. Respiratory:Denies: productive cough (sputum), SOB. GI:Denies: abdominal pain, constipation, diarrhea, nausea, vomiting. :Denies: urgency, vaginal bleeding. Neuro:Denies: headache Objective GeneralVS:Last Documented: Result Date Time B/P Mean 85.0 03/01 0542 B/P 111/72 03/01 0542 Pulse 106 03/01 0542 Temp 98.1 03/01 0540 Resp 16 03/01 0540 Vital Signs Date Temp Pulse Resp B/P B/P Mean Pulse Ox FiO2 03/01 98.1 106 16 111/72 85.0 PATIENT WEIGHT: Weight (lb): Weight (oz): Weight (kg): Physical ExamAdditional comments:Gen: ANSd7Krvxz: normal respiratory effortNeuro: Exam: alert, oriented k3Vojprhi: gravid, soft Uterine activity: Monitor: toco Frequency (description): irregular Frequency (minutes): CONSTRUCTION HELPER: Normal exteral genitalia Cervical/ exam: Dilatation (cm): 0.5 Effacement (%): 50 station: -4 Presentation: VX Membrane status:IM FHR evaluation: FHR category: category I Diagnosis, Assessment Plan Diagnosis, Assessment PlanProblem List/A P: 1. 34 weeks gestation of 2. Decreased movement Free Text A P:initial rjpu3598Jmwhqcu presents due to decreased movements and pelvic pressure. Will order BPP and UA. Dr Chavez will assume care at 0700 at 0647 RPT #:[id number] OF REPORTOBObstetric tdcs2925-21-40J23:09:00G.HBBZ16535289-7538MSDwlxy able for patient bduvLNJSAZTBGGECNI1419-86-54Q18:47:48 [facility] 2021-02-17 15:34:00 [id number] QPvRNFYNRXzAO9FDpgnbcnVU1DysY HT6ARmriy3X45gFdu94dp6dLPKh02EucPh7137-66-19T69:3 4:00 [facility] Medical Screening ExamREPORT#:[id number] REPORT STATUS: SignedDATE:02/17/21 TIME: 1534 PATIENT: LUIS EDMONDS UNIT #: [id number]#: [id number] [address] AGE: 20 SEX: F ATTEND: Effie Solitario DT: AUTHOR: Effie Solitario MD * ALL edits or amendments must be made on the electronic/computer document * Medical Screening Exam Provider AttestationAttestation:The P MSE reviewed. Provider at bedside at 1537Comments: 20 y/o IUP 32 2/7 presents due to gush of fluids and cramping. at 1615 RPT #:[id number] OF REPORTOBObstetric kenw4814-08-62G20:34:00G.FGPI58181918-2764JZScgdc able for patient xlikQSPFESHZDKYOZD7605-97-70R80:15:37 [facility] 2021-02-17 15:34:00 ICiaqpfwevc72443376l 1Ju813p9F3rVH/poNRHWeselKKSnj iO7Tag4iI+8FcsdHuIQWUhmMR8vK+GIEFS1301-73-88W15:3 4:00 [facility] ([facility])OLGA Evaluation NoteREPORT#:[id number] REPORT STATUS: SignedDATE:02/17/21 TIME: 1534 PATIENT: LUIS EDMONDS UNIT #: [id number]#: [id number] ROOM/BED:: 02 AGE: 20 SEX: F ATTEND: Effie Solitario DT: AUTHOR: Effie Solitario MD * ALL edits or amendments must be made on the electronic/computer document * OLGA HistoryChief complaint: uterine contractions, suspected ruptured membHPI:20 y/o IUP 32 2/7 presents due to gush of fluids and cramping. She refers good movements and denies any vaginal bleeding or recent exposure to COVID, fever or SOB.Verbal consent obtained from patient to discuss history, lab results, treatment,plan and any other pertinent information in front of patient's companions. history: : 1Current : EDC: 04/12/21 EGA (weeks/days): 32 weeksPast medical history: depression, anxietyPast surgical history: tonsils/adenoidsSocial history: no alcohol use, no tobacco use, no drug useFamily historyFATHER Family History: Heart diseaseMOTHER Family History: CancerMOTHERRelation not specified for: Family History: Diabetes FH: multiple sclerosis Medications:Home Medications: Medication Dose/Rte/Freq Days Qty Entered Last Max Daily Dose Reviewed PNV WITH FE 1 TAB PO DAILY 12/25/20 02/17/21 FUMARATE/FA 1511 1518 () Strength: 1 EACH TAB AllergiesUncoded Allergies:MALIC ACID (Severe, TONGUE SWELLING, THROAT CLOSING 12/24/17) Review of SystemsAdditional notes:Constitutional:Denies: chills, fatigue, fever, generalized weakness, lethargy, malaise. Respiratory:Denies: productive cough (sputum), SOB. GI:Refers: nauseaDenies: abdominal pain, constipation, diarrhea, vomiting. :Refers: gush of vaginal fluids and contractionsDenies: urgency, vaginal bleeding. Neuro:Denies: headache Objective GeneralVS:Last Documented: Result Date Time Temp 98.3 02/17 1536 Resp 16 02/17 1536 B/P Mean 76.0 02/17 1524 Pulse Ox 99 02/17 1524 B/P 105/59 02/17 1524 Pulse 122 02/17 1524 Vital Signs Date Temp Pulse Resp B/P B/P Mean Pulse Ox FiO2 02/17 98.3 122 16 105/59 76.0 99 PATIENT WEIGHT: Weight (lb): Weight (oz): Weight (kg): Physical ExamAdditional comments:Gen: LWGt2Csyyp: normal respiratory effortNeuro: Exam: alert, oriented m2Hhfbgzz: gravid, soft Uterine activity: Monitor: toco Frequency (description): none Frequency (minutes): CONSTRUCTION HELPER: Normal exteral genitalia Cervical/ exam: Speculum exam: No pooling of amniotic fluid Dilatation (cm): closed Effacement (%): thick station: high Presentation: VX Membrane status:IM, amnisure FHR evaluation: FHR category: category I ResultsFindings/Data:Laboratory Tests: 02/17 1530 Miscellaneous Fibronectin (NEGATIVE) NEGATIVE Other Body Source Membrane Rupture (NEGATIVE) NEGATIVE Diagnosis, Assessment Plan Diagnosis, Assessment PlanProblem List/A P: 1. 32 weeks gestation of Free Text A P:initial xzqd9991Ssqtwwo presents due to gush of fluids and contractions. Will send FFN, amnisure and UA. Re-gysyzytnvn1329Sfxcsquw and FFN negative, no contractions 20 y/o [...] understanding will have her follow-up with her CUTTER MACHINE. Assessment: no evidence laborImpression: reactive NSTPlan: discharge homePlan discussed with: patient, nurse at [facility] RPT #:[id number] OF REPORTOBObstetric iitn5457-57-41V88:34:00G.CRBR21091549-9714EJIywlq able for patient ohnuWGWHIYTJNSRJUO8364-38-07J40:51:12 [facility] 2021-02-12 21:22:00 DZefxajdcza52653750j 0AbNRnmw5G0kyvMgXrv5KNsL6Nluq 18LoLpUvrmM3JBKoFgxGbjmKs8EqtVb6Pk2525-04-23W85:2 2:00 [facility] ExamREPORT#:[id number] REPORT STATUS: SignedDATE:02/12/21 TIME: 2121 PATIENT: LUIS EDMONDS UNIT #: [id number]#: [id number] ROOM/BED:: 02 AGE: 20 SEX: F ATTEND: Effie Solitario DT: AUTHOR: Effie Solitario MD * ALL edits or amendments must be made on the electronic/computer document * Medical Screening Exam Provider AttestationAttestation:The QMP MSE reviewed. Provider at bedside at 0754Comments:20 y/o IUP 32 0/7 presents due to complaind of abdominal and epigastric pain, nausea and decreased movements. at 0915 [facility] #:[id number] OF REPORTOBObstetric fodn5597-59-78C16:22:00G.VNNX19778305-5713CSRgmri able for patient fvvwJTZRGQBTHFRRYR0891-99-24B17:15:38 [facility] 2021-02-12 21:21:00 DGnzbigmoqj53440133V Qozmy9HxBiyWegacK8ysqXcmzhB2f 9vCvZA6gjtjMu1P+4kZtg15ReZtpiJWGNC0533-28-86I18:2 1:00 [facility] Evaluation NoteREPORT#:[id number] REPORT STATUS: SignedDATE:02/12/21 TIME: 2120 PATIENT: LUIS EDMONDS UNIT #: [id number]#: [id number] ROOM/BED:: 02 AGE: 20 SEX: F ATTEND: Effie Solitario [facility] DT: AUTHOR: Effie Solitario MD * ALL edits or amendments must be made on the electronic/computer document * OLGA HistoryChief complaint: uterine contractions, nausea, abdominal painHPI:20 y/o IUP 32 0/7 presents due to complaint of contraction, nausea and decreased movements. She denies any gush of vaginal fluids, vaginal bleeding or recent exposure to COVID, fever or SOB.Verbal consent obtained from patient to discuss history, lab results, treatment,plan and any other pertinent information in front of patient's companions. history: : 1Current : EDC: 04/12/21 EGA (weeks/days): 32 weekPast medical history: depression, anxietyPast surgical history: tonsils/adenoidsSocial history: no alcohol use, no tobacco use, no drug useFamily historyFATHER Family History: Heart diseaseMOTHER Family History: CancerMOTHERRelation not specified for: Family History: Diabetes FH: multiple sclerosis Medications:Home Medications: Medication Dose/Rte/Freq Days Qty Entered Last Max Daily Dose Reviewed PNV WITH FE 1 TAB PO DAILY 12/25/20 FUMARATE/FA 1511 () Strength: 1 EACH TAB AllergiesUncoded Allergies:MALIC ACID (Severe, TONGUE SWELLING, THROAT CLOSING 12/24/17) Review of SystemsAdditional notes:Constitutional:Denies: chills, fatigue, fever, generalized weakness, lethargy, malaise. Respiratory:Denies: productive cough (sputum), SOB. GI:Refers: nauseaDenies: abdominal pain, constipation, diarrhea, vomiting. :Refers: contractionsDenies: urgency, vaginal bleeding. Neuro:Denies: headache Objective GeneralVS:Last Documented: Result Date Time B/P Mean 78.0 02/12 1919 B/P 120/61 02/12 1919 Pulse 137 02/12 1919 Vital Signs Date Temp Pulse Resp B/P B/P Mean Pulse Ox FiO2 02/12 137 120/61 78.0 PATIENT WEIGHT: Weight (lb): 167Weight (oz): Weight (kg): 75.75 Physical ExamAdditional comments:Gen: YGQk5Lmrjk: normal respiratory effortNeuro: Exam: alert, oriented c6Sdjybpl: gravid, soft Uterine activity: Monitor: toco Frequency (description): none Frequency (minutes): CONSTRUCTION HELPER: Normal exteral genitalia Cervical/ exam: Speculum exam: no discharge Dilatation (cm): closed Effacement (%): thick station: high FHR evaluation: FHR category: category I ResultsFindings/Data:Laboratory Tests: 02/12 Miscellaneous Fibronectin (NEGATIVE) NEGATIVE Urines Urine Color (YEL/STRAW) YELLOW Urine Appearance (CLEAR) CLEAR Urine pH (5.0 - 7.0) 6.0 Ur Specific [place] (1.005 - 1.030) 1.006 Urine Protein (NEGATIVE) [...] Urine Mucus (NONE SEEN /LPF) TRACE Recent Impressions:ULTRASOUND - US BIOPHYS PROF 02/12 2123 Report [...] Hughes D.O. Diagnosis, Assessment Plan Diagnosis, Assessment PlanProblem List/A P: 1. 32 weeks gestation of Free Text A P:initial zgcz5174Kdnrbvf presents due to contractions and decreased movements, will order BPP and labs. Re-nmcredxckp3153Ybwnyly refers feeling movements. BPP 8/8, cat I strip 20 y/o IUP 32 0/7 presented due to complaint of contraction, nausea and decreased movements. BPP 8/8 UA negative and patient began feeling movements. Patent found to be hemodynamically stable with normal vital signs, category I strip and found not to be in labor. 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 Assessment: no evidence laborImpression: reactive NSTPlan: discharge homePlan discussed with: patient, nurse at 0921 RPT #:[id number] OF REPORTOBObstetric pzgk6835-42-85F98:21:00G.OOON20840665-6068KGRxwqt able for patient cthuYFXPAMGYGVUJVN8835-58-81G73:21:58 [facility] 2021-01-29 03:41:00 FCripztemij21519880v 3jB6x//V1iYBCXnaZxZik5caJUDNE SoztorFNT5Xl8+H0AEAUKcDkLQe4F07t8O0225-10-27U97:4 1:00 [facility] ([facility])OLGA Evaluation NoteREPORT#:[id number] REPORT STATUS: SignedDATE:01/29/21 TIME: 034 PATIENT: LUIS EDMONDS UNIT #: [id number]#: [id number] [address] AGE: 20 SEX: F ATTEND: Dottie Chavez AUTHOR: Dottie Chavez MD * ALL edits or amendments must be made on the electronic/computer document * OLGA HistoryChief complaint: uterine contractions, constant low back pain on left > RHPI:20 y/o G1 @ 29w with lower abd cramping as well as constant left flank pain on side for 2 days. reports +FM , no lof/rom. no vb. no discharge. no dysuria. neg for fever, chills. no n/vPregnancy history: : 1Current : EDC: 04/12/21 EGA (weeks/days): 29wPast medical history: denies PMHPast surgical history: tonsils/adenoidsSocial history: no alcohol use, no tobacco use, no drug useFamily historyFamily history was reviewed; no changes noted.Medications:Home Medications: Medication Dose/Rte/Freq Days Qty Entered Last Max Daily Dose Reviewed PNV WITH FE 1 TAB PO DAILY 12/25/20 01/29/21 FUMARATE/FA 1511 0302 () Strength: 1 EACH TAB AllergiesUncoded Allergies:MALIC ACID (Severe, TONGUE SWELLING, THROAT CLOSING 12/24/17) Review of SystemsGU:Reports: pelvic pain, . Denies: vaginal bleeding, vaginal discharge. All systems rev neg: except as marked Objective GeneralVS:Last Documented: Result Date Time Temp 98.1 01/29 0254 B/P Mean 67.0 01/29 0252 B/P 92/51 01/29 0252 Pulse 94 01/29 025 Vital Signs Date Temp Pulse Resp B/P B/P Mean Pulse Ox FiO2 01/29 98.1 94 92/51 67.0 PATIENT WEIGHT: Weight (lb): 161Weight (oz): Weight (kg): 73.028 Notes:gen: aao x 3 in nad Physical ExamHEENT: normocephalic w/o injuryCardiac: regular rate and rhythmLungs: unlabored breathingAbdomen: gravid, soft, no abnormal tenderness, no rebound tenderness, normoactive bowel soundsUterine activity: Monitor: tocoCervical/ exam: Dilatation (cm): 0 - closed Effacement (%): 0 station: - 4 FHR evaluation: Baseline: 140 bpm Variability: moderate 6-25 bpm Accelerations: 10 X 10 Decelerations: none Notes:appropropriate for gestational ageLower extremities: Edema: none Calf tenderness: negative ResultsFindings/Data:Laboratory Tests: 01/29 0300 Urines Urine Color (YEL/STRAW) YELLOW Urine Appearance (CLEAR) CLOUDY H Urine pH (5.0 - 7.0) 7.0 Ur Specific [place] (1.005 - 1.030) 1.010 Urine Protein (NEGATIVE) [...] /LPF) TRACE Diagnosis, Assessment Plan Diagnosis, Assessment PlanFree Text A P:A: 20 y/o G1 @ 29w with lower abd pain, probable round ligamentP1. d/c home2. ptl precations3. f/u as scheduled with primary OB in [place], [place] at 0355 RPT #:[id number] OF REPORTOBObstetric zwny8016-04-23M39:41:00G.XFUS34230369-1747RORtgub able for patient vvqhGKYGHMEXUZRRGG5431-34-47D35:55:33 [facility] 2021-01-29 03:39:00 FYkwkvalqow73795287c OiVdamaTYyzzrd46B4HD40iBVCmZt XcLD5hFRCmNB2rrP83wONL4bSRzQhJ+Zmb5546-81-61S50:3 9:00 [facility] ([facility])OB Medical Screening ExamREPORT#:[id number] REPORT STATUS: SignedDATE:01/29/21 TIME: 033 PATIENT: LUIS EDMONDS UNIT #: [id number]#: [id number] [address] AGE: 20 SEX: F ATTEND: Dottie Chavez [facility] AUTHOR: Dottie Chavez MD * ALL edits or amendments must be made on the electronic/computer document * Medical Screening Exam Provider AttestationComments:20 y/o G1 @ 29w with lower abd cramping as well as constant left flank pain on side for 2 days. reports +FM , no lof/rom. no vb. at 0341 RPT #:[id number] OF REPORTOBObstetric xwln9044-12-27L19:39:00G.VNRP74240172-5730EBYpfxq able for patient jqcsECSFGTIMNGRXGK9145-44-08H41:41:12 [facility] 2020-12-25 16:25:00 HPnqxvejxtn34541762/ PlovFS/nMlxr2ZqQn/MfRM+b64vDb kYOniZ0RUH3MnA8et7vrZzB16M1ve5P20n9931-36-09A56:2 5:00 [facility] ([facility])OLGA Evaluation NoteREPORT#:[id number] REPORT STATUS: SignedDATE:12/25/20 TIME: 162 PATIENT: LUIS EDMONDS UNIT #: [id number]#: [id number] ROOM/BED: 304-1DOB: 02 AGE: 20 SEX: F ATTEND: Pearl Chavez DOADM AUTHOR: Pearl Chavez DO * ALL edits or amendments must be made on the electronic/computer document * OLGA HistoryChief complaint: discomfort, nausea and vomitingHPI:20 y/o EDC 04/12 at 24 w 4 day presents with low back pain, vaginal pain, pressure like needs to take BM, and she is not sure what the fluid that leaked at 0200 this am was, denies urine. She was told in prior u/s at [facility] that ISMA was low, she did have a f/u u/s after that but is not sure results. She is notsure if cxn. She has good mvmt and no vaginal bleeding. Thinks she lost her mucus plug. She denies vaginal odor or itching; and thinks her last sex was2-3 days ago. She is also pumping her breast daily w pump b/c has milk and sayswas told she could by her care office. history: : 1Current : EDC: 04/12/21 EGA (weeks/days): 24 weeks 4 dayConditions of : anemia, ? oligoPast medical history: Covid positivePast surgical history: tonsils/adenoidsSocial history: unemployed, single, no alcohol use, no drug use, quit cig with pregnancyFamily historyFATHER Family History: Heart diseaseMOTHER Family History: CancerMOTHERRelation not specified for: Family History: Diabetes FH: multiple sclerosis Medications:Home Medications:tried zofran OD and phenergan w/o relief Medication Dose/Rte/Freq Days Qty Entered Last Max Daily Dose Reviewed PNV WITH FE 1 TAB PO DAILY 12/25/20 FUMARATE/FA 1511 () Strength: 1 EACH TAB AllergiesUncoded Allergies:MALIC ACID (Severe, TONGUE SWELLING, THROAT CLOSING 12/24/17) Review of SystemsConstitutional:Denies: fever. ENT:Denies: sore throat. Respiratory:Denies: non productive cough. GI:Reports: nausea, vomiting. :Reports: . Denies: vaginal bleeding. Objective GeneralVS:Last Documented: Result Date Time Temp 97.6 12/25 1536 Resp 16 12/25 1536 Pulse Ox 98 12/25 1527 Pulse 104 12/25 1527 B/P Mean 86.0 12/25 1521 B/P 117/68 12/25 1521 Vital Signs Date Temp Pulse Resp B/P B/P Mean Pulse Ox FiO2 12/25 97.6 104-113 16 / 86.0 98 PATIENT WEIGHT: Weight (lb): Weight (oz): Weight (kg): Physical ExamHEENT: normocephalic w/o injury, no scleral icterusLungs: unlabored breathingNeuro: Exam: alert, oriented x3, normal speechAbdomen: gravid, soft, no abnormal tenderness, no guarding, no rebound tendernessUterine activity: Monitor: toco Frequency (description): nonePelvic exam: Vulvar lesions: none, no evidence herpetic les, no evidence of other STD Vagina: normal, non-septated, w/o apparent lesions Sterile speculum exam: visually closed, no pooling, no bleeding, minimal d/c noted wet mount and ROM collectedCervical/ exam: Dilatation (cm): 0 - closed Effacement (%): 0 station: - 4 FHR evaluation: Baseline: 140 bpm Variability: moderate 6-25 bpm Accelerations: 10 X 10 Decelerations: none FHR category: category 1Membranes: Membranes: status undetermined ResultsFindings/Data:Microbiology: Date/Time Procedure - Status Source Growth 12/25 1622 Wet Prep - ORD VAGINAL Diagnosis, Assessment Plan Diagnosis, Assessment PlanFree Text A P:20 y/o p0 at 24 w 4 day with c/o possible PROM, possible cxn with low back pain,breast "engorgement" Pt is not in labor or cxnROMWet mountU/sContinue monitor toco for cxn.Will f/u at 1632 RPT #:[id number] OF REPORTOBObstetric syhu7786-99-59E59:25:00G.AHIL70513353-7752GTVrank able for patient dhqlWSNDKNRWYFFOET5879-14-72M56:32:32 [facility] 2020-12-25 16:25:00 SQyynrqjlbq14496806v faWuOMt0KqG+aKROGLvFKDtl924JZ B8BeM0E2JRBs50YEbPzuw6gfLwS9gbbYID9520-73-52G78:2 5:00 [facility] ([facility])OLGA Evaluation NoteREPORT#:[id number] REPORT STATUS: SignedDATE:12/25/20 TIME: 1625 PATIENT: LUIS EDMONDS UNIT #: [id number]#: [id number] [address] AGE: 20 SEX: F ATTEND: Pearl Chavez DOADM AUTHOR: Pearl Chavez DO * ALL edits or amendments must be made on the electronic/computer document * See AddendumOLGA HistoryChief complaint: discomfort, nausea and vomitingHPI:20 y/o EDC 04/12 at 24 w 4 day presents with low back pain, vaginal pain, pressure like needs to take BM, and she is not sure what the fluid that leaked at 0200 this am was, denies urine. She was told in prior u/s at [facility] that ISMA was low, she did have a f/u u/s after that but is not sure results. She is notsure if cxn. She has good mvmt and no vaginal bleeding. Thinks she lost her mucus plug. She denies vaginal odor or itching; and thinks her last sex was2-3 days ago. She is also pumping her breast daily w pump b/c has milk and sayswas told she could by her care office. history: : 1Current : EDC: 04/12/21 EGA (weeks/days): 24 weeks 4 dayConditions of : anemia, ? oligoPast medical history: Covid positivePast surgical history: tonsils/adenoidsSocial history: unemployed, single, no alcohol use, no drug use, quit cig with pregnancyFamily historyFATHER Family History: Heart diseaseMOTHER Family History: CancerMOTHERRelation not specified for: Family History: Diabetes FH: multiple sclerosis Medications:Home Medications:tried zofran OD and phenergan w/o relief Medication Dose/Rte/Freq Days Qty Entered Last Max Daily Dose Reviewed PNV WITH FE 1 TAB PO DAILY 12/25/20 FUMARATE/FA 1511 () Strength: 1 EACH TAB AllergiesUncoded Allergies:MALIC ACID (Severe, TONGUE SWELLING, THROAT CLOSING 12/24/17) Review of SystemsConstitutional:Denies: fever. ENT:Denies: sore throat. Respiratory:Denies: non productive cough. GI:Reports: nausea, vomiting. :Reports: . Denies: vaginal bleeding. Objective GeneralVS:Last Documented: Result Date Time Temp 97.6 12/25 1536 Resp 16 12/25 1536 Pulse Ox 98 12/25 1527 Pulse 104 12/25 1527 B/P Mean 86.0 12/25 1521 B/P 117/68 12/25 1521 Vital Signs Date Temp Pulse Resp B/P B/P Mean Pulse Ox FiO2 12/25 97.6 104-113 16 117/68 86.0 98 PATIENT WEIGHT: Weight (lb): Weight (oz): Weight (kg): Physical ExamHEENT: normocephalic w/o injury, no scleral icterusLungs: unlabored breathingNeuro: Exam: alert, oriented x3, normal speechAbdomen: gravid, soft, no abnormal tenderness, no guarding, no rebound tendernessUterine activity: Monitor: toco Frequency (description): nonePelvic exam: Vulvar lesions: none, no evidence herpetic les, no evidence of other STD Vagina: normal, non-septated, w/o apparent lesions Sterile speculum exam: visually closed, no pooling, no bleeding, minimal d/c noted wet mount and ROM collectedCervical/ exam: Dilatation (cm): 0 - closed Effacement (%): 0 station: - 4 FHR evaluation: Baseline: 140 bpm Variability: moderate 6-25 bpm Accelerations: 10 X 10 Decelerations: none FHR category: category 1Membranes: Membranes: status undetermined ResultsFindings/Data:Microbiology: Date/Time Procedure - Status Source Growth 12/25 162 Wet Prep - ORD VAGINAL Diagnosis, Assessment Plan Diagnosis, Assessment PlanFree Text A P:20 y/o p0 at 24 w 4 day with c/o possible PROM, possible cxn with low back pain,breast "engorgement" Pt is not in labor or cxnROMWet mountU/sContinue monitor toco for cxn.Will f/u at 1632 Addendum 1: 12/25/20 1806 by Pearl Chavez DO Rom negativeWet Mount negativeU/s vertex, ISMA 13 cm, cervix 3.3 cm longok to d/cPelvic rest, and NO breast pumping F/u w her OB this week. at 1807 RPT #:[id number] OF REPORTOBObstetric aclh1605-47-50K17:25:00G.[id number] able for patient ikdjKUZOJHUMMXWPKJ0022-73-91E21:08:01 [facility] 2020-12-25 16:24:00 GXrnfijixsc13934027Q 2dwO7y/63VgCZIFQlV+TPoX+ekg5a Bb0k3+GdatBKQ5DwvH3dZtIE5qZYmu/OjL7614-36-13A60:2 4:00 [facility] ExamREPORT#:[id number] REPORT STATUS: SignedDATE:12/25/20 TIME: 1624 PATIENT: LUIS EDMONDS UNIT #: [id number]#: [id number] [address] AGE: 20 SEX: F ATTEND: Pearl Chavez DOADM AUTHOR: Pearl Chavez DO * ALL edits or amendments must be made on the electronic/computer document * Medical Screening Exam Provider AttestationComments:Pt triaged at 1610. at 1625 RPT #:[id number] OF REPORTOBObstetric sehx4867-98-70I69:24:00G.[id number] able for patient xdhhNVGBZOZXHHKNHA8829-37-69J35:25:31 [facility] 2020-11-23 00:54:00 XIlgxrnxnzk56219959X Ldc86Glf8fJQVLVJTDbTAIAKTAEbj PsmsCgRbg+XI+AWOCBCwJz0pmY4LMKyvuw9197-62-10G08:5 4:00 [facility] Triage VisitREPORT#:[id number] REPORT STATUS: SignedDATE:11/23/20 TIME: 53 PATIENT: LUIS EDMONDS UNIT #: [id number]#: [id number] [address] AGE: 19 SEX: F ATTEND: Brittnee Ramirez DT: AUTHOR: Brittnee Ramirez MD * ALL edits or amendments must be made on the electronic/computer document * Subjective SubjectivePatient reports: vaginal bleeding History Nursing Documentation ReviewNursing data:The data set between the solid lines has been imported from nursing documentation. Any exceptions have been noted below under Provider comments. Current dataSteroids prior to arrival: ROM date: ROM time: EDC date: Post hemorrhage risk score: Prior historyGravida: Para: Term: : Abortions spontaneous: Abortions induced: Living children: Ectopic: Stillbirths: Live births: deaths: Number of previous C/S: Reported maternal labs/dataBlood type: Rh type: Rubella: Hepatitis B: HIV exposure test: VDRL: Group B beta strep: Rho(D) immune globulin this preg: Monitor mode - UA: Feeding preference: Provider comments on imported nursing data: [] Chief complaintChief complaint: vaginal bleedingHPI:19 yo 20 weeks states she started to bleed after she came out of the showeraround 11 pm tonight. States it was bright red and noticed by her sister. Denies trauma today but states she fell 2 weeks ago, was evaluated and told her fluid level was low. Also has bleeding four weeks ago, again evaluated and reassured. Patient recieves PNC at the [facility]. Did not need to wear a ad in but saw a watery, blood tinged area on her underwear. Denies recent hemorroids or straining. No BM tonight. Shaving in the shower. Denies hematuria, dysuria and states urine was tested three days ago. Does not know blood type. Has had some uterine tightening but not painful. Denies other LOF. history: : 1 Term: 0 Current pregnancyCurrent : EDC: 04/12/21 EGA (weeks/days): 20Conditions of : teen , low fluid at last ultrasound Past historyPast medical history: denies PMHPast surgical history: tonsils/adenoids, wisdom teeth removalSocial history: no alcohol use, no tobacco use, no drug useFamily historyMOTHERRelation not specified for: Family History: Diabetes FH: multiple sclerosis Medications:PNVAllergiesCoded Allergies:No Known Allergies (11/23/20) Review of SystemsConstitutional:Denies: chills, fever. Respiratory:Denies: non productive cough, productive cough (sputum), SOB. Cardiovascular:Denies: chest pain, edema. GI:Denies: abdominal pain, nausea, vomiting. :Reports: , vaginal bleeding. Denies: hematuria, pelvic pain. Neuro:Denies: dizziness, lightheaded. Objective GeneralVS:PATIENT WEIGHT: Weight (lb): Weight (oz): Weight (kg): Notes:Gen: well appearing gravid female in NADPulm: nl respiratory effortAbd: NT gravid softExt: -C/C/E Physical Exam:External genitalia: normalVagina white creamy discharge, no new or old bloodCervical/ exam: Dilatation (cm): 0 - closed Effacement (%): 0 station: - 5 FHR evaluation: Baseline: 150 bpmUterine activity: Monitor: toco Frequency (description): none Diagnosis, Assessment Plan Diagnosis, Assessment PlanFree text A P:A/P 19 yo at 20 weeks with bleeding No new or old blood noted vaginally UDS, UA, CBC, blood type ordered Ultrasound complete at 0107 RPT #:[id number] OF REPORTOBObstetric mxwz3902-40-46W50:54:00G.EXOK52057992-2976NACmesx able for patient ipsdTSGPGOOIAHCIPX4608-76-18N74:08:00 [facility] 2020-10-05 03:31:00 YXvcgflcyrw74603298x iBKh47DT5M5qaGaDoGkSsETxmYo7A gN8NBo2vS8vHAKAls1HDKM+XovZRvlEXM89893-28-10A59:3 1:00 [facility] PROVIDER REPORTREPORT#:[id number] REPORT STATUS: SignedDATE:10/05/20 TIME: 033 PATIENT: LUIS EDMONDS UNIT #: [id number]#: [id number] ROOM/BED:AGE: 19 SEX: F PCP PHYS: Elina Rome AUTHOR: Nirav Nolan MD * ALL edits or amendments must be made on the electronic/computer document * HPI- Female Peds Free Text HPI NotesFree Text HPI Hhjru59-xbof-poc female G1 approximately 10 weeks by dates complaining of vaginal bleeding started earlier today. Patient states she has gone through 1 pad is only passing blood no clots or tissue. She has some mild abdominal cramping in bilateral lower quadrants which is not made better or worse by anything althoughshe has not tried any medicine for it. She is already had 1 ultrasound approximately 4 to 6 weeks ago which showed a normal viable IUP. GeneralInitial Greet Date/Time 10/05/20 0116 PresentationChief Complaint Vaginal bleeding Review of Systems ROS StatementsAll systems rev neg except as marked. Free Text ROS NotesFree Text ROS NotesAbdominal pain vaginal bleeding Past Medical History - PedsStated Complaint 12 WKS , VAG BLEEDINGAllergiesUncoded Allergies:MALIC ACID (Severe, TONGUE SWELLING, THROAT CLOSING 12/24/17) Home MedicationsActive ScriptsONDANSETRON ODT (ZOFRAN ODT) 4 MG PO Q6H PRN PRN NAUSEA/VOMITING ONDANSETRON ODT (ZOFRAN ODT) 4 MG PO Q6H PRN PRN NAUSEA/VOMITING #15 TABS Prov: 08/22/20 Reported MedicationsIBUPROFEN (MOTRIN) 800 MG PO TID Calculated suicide risk level: No riskPast Medical History:Reports: Asthma/chronic lung ds, GI issues/GERD. Additional Medical Historychronic pinched nerveAdditional Surgical HistorytonsilectomyPatient HistoryFATHER Family History: Heart diseaseMOTHER Family History: Cancer Smoking status: Smoking status for patients 13 years old or older: Never SmokerSocial HistoryReports: Lives with father, Good social support. OccupationStudent in high schoolAmbulatory Status Independent Physical Exam Vital SignsVital SignsFirst Documented: Result Date Time Pulse Ox 99 10/05 0139 B/P 110/67 10/05 0139 B/P Mean 81 10/05 0139 O2 Delivery Room air 10/05 138 Temp 37.2 10/05 013 Pulse 99 10/05 0139 Resp 18 10/05 013 Last Documented: Result Date Time Pulse Ox 99 10/05 0401 B/P 108/65 10/05 0401 B/P Mean 79 10/05 0401 Pulse 81 10/05 0401 Resp 16 10/05 0401 O2 Delivery Room air 10/05 138 Temp 37.2 10/05 013 Review of Vital Signs Reviewed, Vital signs normal Basic Physical ExamBasic PE GEN: Well appearing/NAD, HEAD: Atraumatic/NC, EYES: PERRL, conj clear, ENT: Membranes moist, NECK: Supple, RESP: No resp distress, CV: Reg rate rhythm, ABD: Soft/non-tender, EXT: No gross abnormality, SKIN: No rashes, Warm/dry, NEURO: alert orient/age, NEURO: gross movement NL, PSYCH: ment status NL/age Focused PEGenitourinary General Exam deferred Interpretation Diagnostics Lab Results InterpretationResultsLaboratory Tests 10/05/20209:[Embedded Image Not Available]Laboratory Tests: 10/05 0210 Chemistry Sodium (134 - 147 mEq/L) 138 [...] % (Auto) (28.0 - 48.0 %) 33.4 Ashe % (Auto) (3.0 - 15.0 %) 6.3 Eos % (Auto) (1.0 - 8.0 %) 1.1 Baso % (Auto) (0.0 - 2.0 %) 0.5 Neut # (Auto) (2.0 - 3.2 x10 3/uL) 7.28 H Lymph # (Auto) (1.0 - 3.8 x10 3/uL) 4.17 H [place]he # (Auto) (0.1 - 0.8 x10 3/uL) 0.78 Eos # (Auto) (0.0 - 0.4 x10 3/uL) 0.14 Baso # (Auto) (0.0 - 0.2 x10 3/uL) 0.06 Abs Immat Gran (auto) (0.00 - 0.03 x10 3/uL) 0.04 H Add Manual Diff NO Immature Gran % (0.0 - 2.0 %) 0.3 Nucleated RBC % (0 - 0 %) 0.0 Nucleated RBCs # (Man) (0.0 - 0.1 x10 3/uL) 0.00 Miscellaneous Maternal Serum HCG 92528.3 Urines Urine Color (YEL/STRAW) YELLOW Urine Appearance (CLEAR) CLEAR Urine pH (5.0 - 7.0) 5.0 Ur Specific [place] (1.005 - 1.030) 1.017 Urine Protein (NEGATIVE) [...] Urine Mucus (NONE SEEN /LPF) TRACE Recent Impressions:ULTRASOUND - DUP AB/PEL/SC/LTD 10/05 209 Report Impression - Status: SIGNED Entered: 10/05/2020221 IMPRESSION: Normal single live intrauterine at 13 weeks 0 days. SL: TPAINTER-HImpression By: Tiffanie Avila M.D.ULTRASOUND - US PREG 1ST TRIMTR 10/05 209 Report Impression - Status: SIGNED Entered: 10/05/2020221 IMPRESSION: Normal single live intrauterine at 13 weeks 0 days. SL: TPAINTER-HImpression By: Tiffanie Avila M.D. Lab Imaging StatementLaboratory radiographic studies reviewed and considered in the medical decision-making. Re-Evaluation MDM Re-Evaluation/ProgressRe-Evaluation/Progress Time of Re-Eval 331 Re-Eval Status Improved Plan Post Re-Eval Plan discharge ED CourseMedication(s) OrderedMedication(s) Ordered:Autonomic Drugs Sig/Victoriano Start time Last Medication Dose Route Stop Time Status Admin Dicyclomine HCl 20 MG X1ED STA 10/05 0145 DC 10/05 PO 10/05 145 0157 Electrolytic, Caloric, And Gregor Sig/Victoriano Start time Last Medication Dose Route Stop Time Status Admin Sodium Chloride 0 ASDIR PRN 10/05 0130 DCD IV 10/06 0016 Patient Discharge Departure Vital Signs/ConditionVital SignsFirst Documented: Result Date Time Pulse Ox 99 [...] signs available at the time of this entry have been reviewed. Condition Improved Clinical ImpressionClinical ImpressionPrimary Impression: Threatened Disposition DecisionDischarge )( Discharged to Home Yes )( Time 033 )( Date 10/05/20 Discharge/Care PlanCounseled Regarding Diagnosis, Lab results, Imaging studies, Prescriptions, Needfor follow-up, When to return to ED(Auto) PrescriptionsCurrent Visit ScriptsONDANSETRON ODT (ZOFRAN ODT) 4 MG PO Q6H PRN PRN NAUSEA/VOMITING ONDANSETRON ODT (ZOFRAN ODT) 4 MG PO Q6H PRN PRN NAUSEA/VOMITING #15 TABS DICYCLOMINE (BENTYL) 20 MG PO QID DICYCLOMINE (BENTYL) 20 MG PO QID #30 TABS Patient Instructions ED Abdominal Pain, Early , ED Possible Miscarriage...Additional InstructionsTYLENOL DIRECTED at 2314RPT #:[id number] OF REPORTEDEmergency department fhwujb1684-48-72R62:31:00G.CPYY54200101-8725XDPet ilable for patient opmwCSZRVXLFEZFGKU4222-05-96W00:14:28 [facility] 2020-08-22 20:42:00 KCcfygcjncg10939296A KznO4Mtcgfnqecp1Q0+SSsGkHIc9z /8xvOSA6Vzj05Qf/vIJdVcW9vEbAr8hZ0L1663-25-28B06:4 2:00 [facility] ([facility])EMERGENCY PROVIDER REPORTREPORT#:[id number] REPORT STATUS: SignedDATE:08/22/20 TIME: 2041 PATIENT: LUIS EDMONDS UNIT #: [id number]#: [id number] ROOM/BED:AGE: 19 SEX: F PCP PHYS: Elina Rome AUTHOR: Cathy Bruce * ALL edits or amendments must be made on the electronic/computer document * HPI- Female Free Text HPI NotesFree Text HPI Imlfx40-gedh-jlq female G1, 6 weeks EGA with LMP12/21 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 She reports associated nausea, vomiting, lower pelvic cramping after "stressful conversations.". She denies dysuria, hematuria, vaginal bleeding or discharge. GeneralConfirmed Patient YesInitial Greet Date/Time 08/22/20 2018 PresentationChief Complaint Pelvic painHx Obtained From Patient)( Sudden in Onset? No Risk- Female Risk StratificationEctopic Risk factors reviewed Review of Systems ROS StatementsAll systems rev neg except as marked. Free Text ROS NotesFree Text ROS NotesGen: No F/CLungs: No cough, wheezing, SOB, RICHARDSON, trouble breathing, or pleuritic chest painHeart: No Chest pain, RICHARDSON, peripheral edema, orthopnea, PND, palpitationsAbd: Denies abdominal pain. Nausea with nonbloody nonbilious emesis. No diarrhea. No melena, hematochezia, or hematemesisGU: No dysuria, Hematuria, urinary frequency, urgency, no vaginal bleeding or discharge. No h/o STD. No vaginal lesions. Mild pelvic cramping.Skin: No rashes or lesionsExt: No pain, swelling, or deformityBack: No flank painNeuro: No headache, lightheadedness, dizziness Past Medical History - AdultStated Complaint "ABD PAIN/BACK PAIN" LMP 07/08/20AllergiesUncoded Allergies:MALIC ACID (Severe, TONGUE SWELLING, THROAT CLOSING 12/24/17) Home MedicationsReported MedicationsIBUPROFEN (MOTRIN) 800 MG PO TID Past Medical History:Reports: Asthma. Denies: Diabetes mellitus, GERD/gastritis, Hypertension, Kidney disease/stones, Seizure disorder. Additional Medical Historychronic pinched nerve Physical Exam Vital SignsVital SignsFirst Documented: Result Date Time Pulse Ox 99 [...] 2241 Review of Vital Signs Reviewed Focused PEGenitourinary General Exam deferred Free Text PE NotesFree Text PE NotesGen: Well appearing, well hydrated, cooperativeHead: Normocephalic, atraumaticEyes:, Anicteric sclera, No conjunctival injection or exudateThroat: Airway patent, mucous membranes moistNeck: FROM, no midline TTP or meningismus Lungs: CTAB no R/R/W, good air movement. No stridor or accessory muscle use. Heart: RRR no m/g/r. No peripheral edemaAbd: S/NT/ND no rebound, guarding, or peritoneal sxs. No palpable masses or pulsetile masses. Negative [place] Sign. No TTP at [employer] PointExt: FROM BUE/LE. No swelling or deformity. Calves supple bilaterally. 2+ distalpulses, NVINeuro: A O x 3, GCS 15, CN I-XII grossly intact without focal deficit. Psych: Normal mood and affect. Interpretation Diagnostics Lab Results InterpretationResultsLaboratory Tests 08/22/20 2100:[Embedded Image Not Available]Laboratory Tests: 08/22 08/22 2100 2100 Chemistry Sodium [...] % (Auto) (28.0 - 48.0 %) 30.6 Ashe % (Auto) (3.0 - 15.0 %) 5.9 Eos % (Auto) (1.0 - 8.0 %) 0.6 L Baso % (Auto) (0.0 - 2.0 %) 0.7 Neut # (Auto) (2.0 - 3.2 x10 3/uL) 6.51 H Lymph # (Auto) (1.0 - 3.8 x10 3/uL) 3.22 Ashe # (Auto) (0.1 - 0.8 x10 3/uL) 0.62 Eos # (Auto) (0.0 - 0.4 x10 3/uL) 0.06 Baso # (Auto) (0.0 - 0.2 x10 3/uL) 0.07 Abs Immat Gran (auto) (0.00 - 0.03 x10 3/uL) 0.03 Add Manual Diff NO Immature Gran % (0.0 - 2.0 %) 0.3 Nucleated RBC % (0 - 0 %) 0.0 Nucleated RBCs # (Man) (0.0 - 0.1 x10 3/uL) 0.00 Miscellaneous Maternal Serum HCG 06854.6 Urines Urine Color (YEL/STRAW) STRAW Urine Appearance (CLEAR) CLEAR Urine pH (5.0 - 7.0) 6.0 Ur Specific [place] (1.005 - 1.030) 1.008 Urine Protein (NEGATIVE) [...] TRACE Urine HCG, Qual (NEGATIVE) POSITIVE Recent Impressions:ULTRASOUND - DUP AB/PEL/SC/LTD 08/22 2199 Report Impression - Status: SIGNED Entered: 08/22/20202209 IMPRESSION: Single viable intrauterine of estimatedsonographic gestational age of 6 weeks 4 days. SL: Sylvie By: Phil Izquierdo M.D.ULTRASOUND - US PREG 1ST TRIMTR 08/22 2199 Report Impression - Status: SIGNED Entered: 08/22/20202209 IMPRESSION: Single viable intrauterine of estimatedsonographic gestational age of 6 weeks 4 days. SL: Sylvie By: Phil Izquierdo M.D. Lab Imaging StatementLaboratory radiographic studies reviewed and considered in the medical decision-making. Re-Evaluation MDM Re-Evaluation/ProgressRe-Evaluation/Progress Text/Dict Notereviewewd imaging and labs Time of Re-Eval 2224 Re-Eval Status Unchanged ED CourseMedication(s) OrderedMedication(s) Ordered:Electrolytic, Caloric, And Gregor Sig/Victoriano Start time Last Medication Dose Route Stop Time Status Admin Sodium Chloride 1,000 ML BOLUS ONCE ONE 08/22 2044 DC 08/22 IV 08/22 Gastrointestinal Drugs Sig/Victoriano Start time Last Medication Dose Route Stop Time Status Admin Ondansetron HCl 4 MG X1ED STA 08/22 2040 DC 08/22 IV 08/22 Patient Discharge Departure Vital Signs/ConditionVital SignsFirst Documented: Result Date Time Pulse Ox 99 08/22 2040 B/P 122/64 08/22 2040 B/P Mean 83 08/22 2040 O2 Delivery Room air 08/22 2040 Temp 37.0 08/22 2040 Pulse 99 08/22 2040 Resp 16 08/22 2040 Last Documented: Result Date Time Pulse Ox 99 08/222 B/P 120/68 08/22 2241 B/P Mean 85 08/22 2241 O2 Delivery Room air 08/22 2241 Temp 36.8 08/22 2241 Pulse 80 08/22 2241 Resp 16 08/22 2241 All vital signs available at the time of this entry have been reviewed. Clinical ImpressionClinical ImpressionPrimary Impression: Early stage of Disposition DecisionDischarge )( Discharged to Home Yes )( Time 2224 )( Date 08/22/20 Discharge/Care PlanCounseled Regarding Diagnosis, Lab results, Imaging studies, Medication changes,Prescriptions(Auto) PrescriptionsCurrent Visit ScriptsONDANSETRON ODT (ZOFRAN ODT) 4 MG PO Q6H PRN PRN NAUSEA/VOMITING ONDANSETRON ODT (ZOFRAN ODT) 4 MG PO Q6H PRN PRN NAUSEA/VOMITING #15 TABS Prescriptions Reviewed Risks, Benefits, Alternative treatmentPatient Instructions ED Abdominal Pain, Early , ED Hyperemesis GravidarumAdditional InstructionsReturn to ED if severe pain, fever > 102, worsening symptomsReferrCricket King MD Discharge NoteI have spoken with the patient and/or caregivers. I have explained the patient'scondition, diagnoses and treatment plan based on the information available to meat this time. I have answered the patient's and/or caregiver's questions and addressed any concerns. The patient and/or caregivers have as good an understanding of the patient's diagnosis, condition and treatment plan as can beexpected at this point. The vital signs have been stable. The patient's condition is stable and appropriate for discharge from the emergency department. The patient will pursue further outpatient evaluation with the primary care physician or other designated or consulting physician as outlined in the discharge instructions. The patient and/or caregivers are agreeable to this planof care and follow-up instructions have been explained in detail. The patient and/or caregivers have received these instructions in written format and have expressed an understanding of the discharge instructions. The patient and/or caregivers are aware that any significant change in condition or worsening of symptoms should prompt an immediate return to this or the closest emergency department or a call to 911. at 2346RPT #:[id number] OF REPORTEDEmergency department nlbaek4893-07-66C44:42:00G.GSUO02512373-4663TKDlm ilable for patient glrpTKDKZLZMOENLCA1450-30-56A62:47:09 [facility] 2020-08-22 20:42:00 DXefwmckaoy60789984e EfgXxicrL8fFJy3YFG9cV/9KSgmAm QtpC+zxjW6r4PiIbvxeXInJouiod9VR2RF6357-82-37D60:4 2:00 [facility]ER[facility] PROVIDER REPORTREPORT#:[id number] REPORT STATUS: SignedDATE:08/22/20 TIME: 2041 PATIENT: LUIS EDMONDS UNIT #: [id number]#: [id number] ROOM/BED:AGE: 19 SEX: F PCP PHYS: Elina Rome AUTHOR: Cathy Bruce * ALL edits or amendments must be made on the electronic/computer document * Cathy Bruce 08/22/202041:HPI- Female Free Text HPI NotesFree Text HPI Ibcgr03-epko-acr female G1, 6 weeks EGA with LMP12/21 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 She reports associated nausea, vomiting, lower pelvic cramping after "stressful conversations.". She denies dysuria, hematuria, vaginal bleeding or discharge. GeneralConfirmed Patient Yes PresentationChief Complaint Pelvic painHx Obtained From Patient)( Sudden in Onset? No Risk- Female Risk StratificationEctopic Risk factors reviewed Review of Systems ROS StatementsAll systems rev neg except as marked. Free Text ROS NotesFree Text ROS NotesGen: No F/CLungs: No cough, wheezing, SOB, RICHARDSON, trouble breathing, or pleuritic chest painHeart: No Chest pain, RICHARDSON, peripheral edema, orthopnea, PND, palpitationsAbd: Denies abdominal pain. Nausea with nonbloody nonbilious emesis. No diarrhea. No melena, hematochezia, or hematemesisGU: No dysuria, Hematuria, urinary frequency, urgency, no vaginal bleeding or discharge. No h/o STD. No vaginal lesions. Mild pelvic cramping.Skin: No rashes or lesionsExt: No pain, swelling, or deformityBack: No flank painNeuro: No headache, lightheadedness, dizziness Past Medical History - AdultStated Complaint "ABD PAIN/BACK PAIN" LMP 07/08/20AllergiesUncoded Allergies:MALIC ACID (Severe, TONGUE SWELLING, THROAT CLOSING 12/24/17) Home MedicationsReported MedicationsIBUPROFEN (MOTRIN) 800 MG PO TID Past Medical History:Reports: Asthma. Denies: Diabetes mellitus, GERD/gastritis, Hypertension, Kidney disease/stones, Seizure disorder. Additional Medical Historychronic pinched nerve Physical Exam Vital SignsVital SignsFirst Documented: Result Date Time Pulse Ox 99 [...] 2241 Review of Vital Signs Reviewed Focused PEGenitourinary General Exam deferred Free Text PE NotesFree Text PE NotesGen: Well appearing, well hydrated, cooperativeHead: Normocephalic, atraumaticEyes:, Anicteric sclera, No conjunctival injection or exudateThroat: Airway patent, mucous membranes moistNeck: FROM, no midline TTP or meningismus Lungs: CTAB no R/R/W, good air movement. No stridor or accessory muscle use. Heart: RRR no m/g/r. No peripheral edemaAbd: S/NT/ND no rebound, guarding, or peritoneal sxs. No palpable masses or pulsetile masses. Negative [place] Sign. No TTP at [employer] PointExt: FROM BUE/LE. No swelling or deformity. Calves supple bilaterally. 2+ distalpulses, NVINeuro: A O x 3, GCS 15, CN I-XII grossly intact without focal deficit. Psych: Normal mood and affect. Interpretation Diagnostics Lab Results InterpretationResultsLaboratory Tests 08/22/20 2100:[Embedded Image Not Available]Laboratory Tests: 08/22 Chemistry Sodium (134 - 147 mEq/L) 137 [...] % (Auto) (28.0 - 48.0 %) 30.6 [place]he % (Auto) (3.0 - 15.0 %) 5.9 Eos % (Auto) (1.0 - 8.0 %) 0.6 L Baso % (Auto) (0.0 - 2.0 %) 0.7 Neut # (Auto) (2.0 - 3.2 x10 3/uL) 6.51 H Lymph # (Auto) (1.0 - 3.8 x10 3/uL) 3.22 [place] # (Auto) (0.1 - 0.8 x10 3/uL) 0.62 Eos # (Auto) (0.0 - 0.4 x10 3/uL) 0.06 Baso # (Auto) (0.0 - 0.2 x10 3/uL) 0.07 Abs Immat Gran (auto) (0.00 - 0.03 x10 3/uL) 0.03 Add Manual Diff NO Immature Gran % (0.0 - 2.0 %) 0.3 Nucleated RBC % (0 - 0 %) 0.0 Nucleated RBCs # (Man) (0.0 - 0.1 x10 3/uL) 0.00 Miscellaneous Maternal Serum HCG 82682.6 Urines Urine Color (YEL/STRAW) STRAW Urine Appearance (CLEAR) CLEAR Urine pH (5.0 - 7.0) 6.0 Ur Specific [place] (1.005 - 1.030) 1.008 Urine Protein (NEGATIVE) [...] TRACE Urine HCG, Qual (NEGATIVE) POSITIVE Recent Impressions:ULTRASOUND - DUP AB/PEL/SC/LTD 08/22 2199 Report Impression - Status: SIGNED Entered: 08/22/20202209 IMPRESSION: Single viable intrauterine of estimatedsonographic gestational age of 6 weeks 4 days. SL: KEI-HImpression By: Phil Izquierdo M.D.ULTRASOUND - US PREG 1ST TRIMTR 08/22 2199 Report Impression - Status: SIGNED Entered: 08/22/20202209 IMPRESSION: Single viable intrauterine of estimatedsonographic gestational age of 6 weeks 4 days. SL: KEI-HImpression By: Phil Izquierdo M.D. Lab Imaging StatementLaboratory radiographic studies reviewed and considered in the medical decision-making. Re-Evaluation MDM Re-Evaluation/ProgressRe-Evaluation/Progress Text/Dict Notereviewewd imaging and labs Time of Re-Eval 2224 Re-Eval Status Unchanged ED CourseMedication(s) OrderedMedication(s) Ordered:Electrolytic, Caloric, And Gregor Sig/Victoriano Start time Last Medication Dose Route Stop Time Status Admin Sodium Chloride 1,000 ML BOLUS ONCE ONE 08/22 2044 DC 08/22 IV 08/22 Gastrointestinal Drugs Sig/Victoriano Start time Last Medication Dose Route Stop Time Status Admin Ondansetron HCl 4 MG X1ED STA 08/22 2040 DC 08/22 IV 08/22 Patient Discharge Departure Vital Signs/ConditionVital SignsFirst Documented: Result Date Time Pulse Ox 99 08/22 2040 B/P 122/64 08/22 2040 B/P Mean 83 08/22 2040 O2 Delivery Room air 08/22 2040 Temp 37.0 08/22 2040 Pulse 99 08/22 2040 Resp 08/22 Last Documented: Result Date Time Pulse Ox 99 08/22 2241 B/P 120/68 08/22 2241 B/P Mean 85 08/22 2241 O2 Delivery Room air 08/22 2241 Temp 36.8 08/22 2241 Pulse 80 08/22 2241 Resp 16 08/22 2241 All vital signs available at the time of this entry have been reviewed. Clinical ImpressionClinical ImpressionPrimary Impression: Early stage of Disposition DecisionDischarge )( Discharged to Home Yes )( Time 2224 )( Date 08/22/20 Discharge/Care PlanCounseled Regarding Diagnosis, Lab results, Imaging studies, Medication changes,Prescriptions(Auto) PrescriptionsCurrent Visit ScriptsONDANSETRON ODT (ZOFRAN ODT) 4 MG PO Q6H PRN PRN NAUSEA/VOMITING ONDANSETRON ODT (ZOFRAN ODT) 4 MG PO Q6H PRN PRN NAUSEA/VOMITING #15 TABS Prescriptions Reviewed Risks, Benefits, Alternative treatmentPatient Instructions ED Abdominal Pain, Early , ED Hyperemesis GravidarumAdditional InstructionsReturn to ED if severe pain, fever > 102, worsening symptomsReferrCricket King MD Discharge NoteI have spoken with the patient and/or caregivers. I have explained the patient'scondition, diagnoses and treatment plan based on the information available to meat this time. I have answered the patient's and/or caregiver's questions and addressed any concerns. The patient and/or caregivers have as good an understanding of the patient's diagnosis, condition and treatment plan as can beexpected at this point. The vital signs have been stable. The patient's condition is stable and appropriate for discharge from the emergency department. The patient will pursue further outpatient evaluation with the primary care physician or other designated or consulting physician as outlined in the discharge instructions. The patient and/or caregivers are agreeable to this planof care and follow-up instructions have been explained in detail. The patient and/or caregivers have received these instructions in written format and have expressed an understanding of the discharge instructions. The patient and/or caregivers are aware that any significant change in condition or worsening of symptoms should prompt an immediate return to this or the closest emergency department or a call to 911. Loi Hassan. 08/24/20 2338:HPI- Female [facility] Greet Date/Time 08/22/20 2018 Patient Discharge Departure Supervising Physician Note MidLv Saw Pt AloneI have reviewed the PA/TREE LOADER MEAT's note and plan of care. I was available for consultation as needed at all times during the patient's visit in the emergency department. I agree with the clinical impression, plan and disposition. at 2346 at 2338RPT #:[id number] OF REPORTEDEmergency department [id number]:42:00G.[id number] ilable for patient nhpdNRVKKXJLJQMYZD5287-55-22G73:39:11 [facility] 2020-02-15 23:20:00 [id number]:2 0:00 [facility] ([facility] PROVIDER REPORTREPORT#:[id number] REPORT STATUS: SignedDATE:02/15/20 TIME: 2319 PATIENT: LUIS EDMONDS UNIT #: [id number]#: [id number] ROOM/BED:AGE: 19 SEX: F PCP PHYS: Elina Rome AUTHOR: Amilcar Pablo [employer] * ALL edits or amendments must be made on the electronic/computer document * HPI-General Illness Free Text HPI NotesFree Text HPI [id number]-kyo female with past medical history of asthma presents to the ER with mother with complaint of fever, sore throat, nausea, right ear pain and enlargedR cervical lymph node onset today. Pt took 2 tabs of motrin earlier today. She denies any cough, congestion, SOB, wheezing, abd pain, v/d, dysuria, hematuria or vaginal discharge. No known Covid exposures. GeneralInitial Greet Date/Time 02/15/20 8595 PresentationChief Complaint Fever, Sore throatHx Obtained From Patient, PARENT Review of Systems ROS StatementsAll systems rev neg except as marked. Review of SystemsConstitutionalReports: Fever. Ears/Nose/ThroatReports: Earache R, Sore throat. Denies: Nasal congestion. RespiratoryDenies: Cough, non-productive, Cough, productive, Shortness of breath, Wheezing. GIReports: Nausea. Denies: Abdominal pain, Diarrhea, Vomiting. FemaleDenies: Flank pain, Hematuria, Vaginal discharge. Past Medical History - AdultStated Complaint FEVER, SORE THROAT, BODY ACHES,AllergiesUncoded Allergies:MALIC ACID (Severe, TONGUE SWELLING, THROAT CLOSING 12/24/17) Home MedicationsReported MedicationsIBUPROFEN (MOTRIN) 800 MG PO TID Past Medical History:Reports: Asthma. Denies: Diabetes mellitus, GERD/gastritis, Hypertension, Kidney disease/stones, Seizure disorder. Additional Medical Historychronic pinched nerveAdditional Surgical HistorytonsilectomySmoking status for patients 13 years old or older: Never Smoker Physical Exam Vital SignsVital SignsFirst Documented: Result Date Time Pulse Ox 100 02/14 2308 B/P 112/63 02/14 2308 B/P Mean 79 02/148 O2 Delivery Room air 02/148 Temp 39.1 02/15 2308 Pulse 117 02/14 2308 Resp 18 02/148 Last Documented: Result Date Time Pulse Ox 99 02/15 0328 B/P 96/55 02/15 0328 B/P Mean 68 02/15 0328 O2 Delivery Room air 02/15 032 Temp 36.8 02/15 032 Pulse 83 02/15 0328 Resp 18 02/15 0328 Review of Vital Signs Reviewed Free Text PE NotesFree Text PE NotesGen: Well developed, acutely ill but non-toxic appearance. smells of smokeHead: NormocephalicEyes: Pupils midline, sclera NL, no periorbital edema, conjunctiva normalEars: TMs intact bilaterally with good landmarks, no erythema. EAC patent without swelling, erythema, or drainage. No mastoid swelling or TTPNose: no nasal drainage or mucosal edemaThroat: Moist mucous membranes, handling secretions. Airway patent. OP clear without exudates or petechia. Tonsils surgically absent. Mild protrusion of R posterior upper palate without obvious abscessNeck: Supple, FROM, no meningismus, + R anterior cervical adenopathy Lungs: CTA all lobes. Respirations NL. No wheezing, No rhonchi, No dyspnea. No stridor or accessory muscle use. Heart: Regular rhythm, No murmurs. tachycardia c/w feverAbd: Soft, non-tender, non-distended. No rebound, guarding, or peritoneal sxs.No palpable masses or pulsatile masses. No TTP at [facility] PointExt: No obvious deformityNeuro: awake and alert, speech NL for age, behavior age-appropriate. Interpretation Diagnostics Lab Results InterpretationResultsLaboratory Tests 02/15/202325:[Embedded Image Not Available]Laboratory Tests: 02/14 2326 Chemistry Sodium (134 - [...] (Auto) (28.0 - 48.0 %) 13.9 L [place] % (Auto) (3.0 - 15.0 %) 10.0 Eos % (Auto) (1.0 - 8.0 %) 0.0 L Baso % (Auto) (0.0 - 2.0 %) 0.4 Neut # (Auto) (2.0 - 3.2 x10 3/uL) 9.16 H Lymph # (Auto) (1.0 - 3.8 x10 3/uL) 1.70 [place]he # (Auto) (0.1 - 0.8 x10 3/uL) 1.22 H Eos # (Auto) (0.0 - 0.4 x10 3/uL) 0.00 Baso # (Auto) (0.0 - 0.2 x10 3/uL) 0.05 Abs Immat Gran (auto) (0.00 - 0.03 x10 3/uL) 0.06 H Add Manual Diff NO Immature Gran % (0.0 - 2.0 %) 0.5 Nucleated RBC % (0 - 0 %) 0.0 Nucleated RBCs # (Man) (0.0 - 0.1 x10 3/uL) 0.00 Serology Monoscreen (NEGATIVE) NEGATIVE Urines Urine Color (YEL/STRAW) YELLOW Urine Appearance (CLEAR) CLEAR Urine pH (5.0 - 7.0) 6.0 Ur Specific [place] (1.005 - 1.030) 1.015 Urine Protein (NEGATIVE) [...] 2320 Streptococcus Culture - RES THROAT Recent Impressions:CAT SCAN - CT NECK W/CONTRAST 02/15 134 Report Impression - Status: SIGNED Entered: 02/16/2020 0239 IMPRESSION:1. Enlarged neck lymph nodes bilaterally. Differential considerationwould include inflammatory/infectious or metastatic adenopathy.2. Enlarged right aspect of lingual tonsils. Although this may bedue to infectious/inflammatory process, follow-up to resolutionrecommended. SL: TORI-HImpression By: [email or web address] - Jeromy Wolfe M.D. Lab Imaging StatementLaboratory radiographic studies reviewed and considered in the medical decision-making. Point of Care TestingPulse Oximetry Pulse Ox % 100 On: Room air Interpretation Interpreted by me, Pulse oximetry normal Time 0128 Re-Evaluation MDM Free Text MDM NotesFree Text MDM NotesPt notes R cervical lymphadenopathy that has been fluctuant in size for 2-3 years, noting she failed to get bx that was suggested. I advised mother and pt on life threatening risks of lymphadenopathy and advised close OP f/u. Given fever in addition to lymphadenopathy, will cover with empiric ATB therapy. Re-Evaluation/Progress #1Text/Dict NotePatient reassessed. Patient remains awake, alert, oriented, respirations nonlabored, appears comfortable and is ambulatory with steady gait. I discussedall results, most likely diagnosis, at home recommendations, ED return precautions and advised follow-up with PCP IN 3-10 DAYS FOR RE-EVAL OF LYMPHADENOPATHYTime of Re-Eval 0252 ED CourseMedication(s) OrderedMedication(s) Ordered:Anti-Infective Agents Sig/Victoriano Start time Last Medication Dose Route Stop Time Status Admin Ceftriaxone Sodium 1,000 MG X1ED STA 02/14 2320 DC 02/14 Sodium Chloride 10 ML IV 02/142 2324 Central Nervous System Agents Sig/Victoriano Start time Last Medication Dose Route Stop Time Status Admin Acetaminophen 1,000 MG X1ED STA 02/14 2312 DC 02/14 PO 02/14 2313 2320 Diagnostic Agents Sig/Victoriano Start time Last Medication Dose Route Stop Time Status Admin Iopamidol 70 ML .STK-MED ONE 02/15 0136 DC 02/15 IV 02/15 013 0136 Electrolytic, Caloric, And Gregor Sig/Victoriano Start time Last Medication Dose Route Stop Time Status Admin Sodium Chloride 1,000 ML X1ED STA 02/14 2312 DC 02/14 IV 02/14 2313 2321 Eye, Ear, Nose And Throat (Een Sig/Victoriano Start time Last Medication Dose Route Stop Time Status Admin Dexamethasone Sodium 10 MG X1ED STA 02/15 2312 DC 02/14 Phosphate IV 02/14 2313 2321 Gastrointestinal Drugs Sig/Victoriano Start time Last Medication Dose Route Stop Time Status Admin Ondansetron HCl 4 MG X1ED STA 02/15 2312 DC 02/14 IV 02/143 2321 Patient Discharge Departure Vital Signs/ConditionVital SignsFirst Documented: Result Date Time Pulse Ox 100 [...] signs available at the time of this entry have been reviewed. Condition Stable Clinical ImpressionClinical ImpressionPrimary Impression: Viral pharyngitisSecondary Impressions: Cervical lymphadenopathy, Suspected COVID-19 virus infection Disposition DecisionDischarge )( Discharged to Home Yes )( Time 0251 )( Date 02/16/20 [facility] Criteria Met for Testing YesTest Performed Yes, result pending Discharge/Care PlanCounseled Regarding Diagnosis, Lab results, Imaging studies, Prescriptions, Needfor follow-up, When to return to EDPrescriptionsmotrin, augmentinRefElina Layton MD (PCP/Family) at 0332RPT #:[id number] OF REPORTEDEmergency department [id number]:20:00G.[id number] ilable for patient gbxbNEPYQIQEFPESAZ0556-71-02P14:32:50 [facility] 2020-02-15 23:20:00 [id number] wARpVsSRmxcbb1kN/NNGlA3sBviDustuJe1405-66-07Z64:2 0:00 [facility] ([facility])EMERGENCY PROVIDER REPORTREPORT#:[id number] REPORT STATUS: SignedDATE:02/15/20 TIME: 2319 PATIENT: LUIS EDMONDS UNIT #: [id number]#: [id number] ROOM/BED:AGE: 19 SEX: F PCP PHYS: Elina Rome AUTHOR: Amilcar Pablo [employer] * ALL edits or amendments must be made on the electronic/computer document * Amilcra Pablo 02/15/20 232:HPI-General Illness Free Text HPI NotesFree Text HPI [id number]-ijhm-qra female with past medical history of asthma presents to the ER with mother with complaint of fever, sore throat, nausea, right ear pain and enlargedR cervical lymph node onset today. Pt took 2 tabs of motrin earlier today. She denies any cough, congestion, SOB, wheezing, abd pain, v/d, dysuria, hematuria or vaginal discharge. No known Covid exposures. PresentationChief Complaint Fever, Sore throatHx Obtained From Patient, PARENT Review of Systems ROS StatementsAll systems rev neg except as marked. Review of SystemsConstitutionalReports: Fever. Ears/Nose/ThroatReports: Earache R, Sore throat. Denies: Nasal congestion. RespiratoryDenies: Cough, non-productive, Cough, productive, Shortness of breath, Wheezing. GIReports: Nausea. Denies: Abdominal pain, Diarrhea, Vomiting. FemaleDenies: Flank pain, Hematuria, Vaginal discharge. Past Medical History - AdultStated Complaint FEVER, SORE THROAT, BODY ACHES,AllergiesUncoded Allergies:MALIC ACID (Severe, TONGUE SWELLING, THROAT CLOSING 12/24/17) Home MedicationsReported MedicationsIBUPROFEN (MOTRIN) 800 MG PO TID Past Medical History:Reports: Asthma. Denies: Diabetes mellitus, GERD/gastritis, Hypertension, Kidney disease/stones, Seizure disorder. Additional Medical Historychronic pinched nerveAdditional Surgical HistorytonsilectomySmoking status for patients 13 years old or older: Never Smoker Physical Exam Vital SignsVital SignsFirst Documented: Result Date Time Pulse Ox 100 [...] of Vital Signs Reviewed Free Text PE NotesFree Text PE NotesGen: Well developed, acutely ill but non-toxic appearance. smells of smokeHead: NormocephalicEyes: Pupils midline, sclera NL, no periorbital edema, conjunctiva normalEars: TMs intact bilaterally with good landmarks, no erythema. EAC patent without swelling, erythema, or drainage. No mastoid swelling or TTPNose: no nasal drainage or mucosal edemaThroat: Moist mucous membranes, handling secretions. Airway patent. OP clear without exudates or petechia. Tonsils surgically absent. Mild protrusion of R posterior upper palate without obvious abscessNeck: Supple, FROM, no meningismus, + R anterior cervical adenopathy Lungs: CTA all lobes. Respirations NL. No wheezing, No rhonchi, No dyspnea. No stridor or accessory muscle use. Heart: Regular rhythm, No murmurs. tachycardia c/w feverAbd: Soft, non-tender, non-distended. No rebound, guarding, or peritoneal sxs.No palpable masses or pulsatile masses. No TTP at [facility] PointExt: No obvious deformityNeuro: awake and alert, speech NL for age, behavior age-appropriate. Interpretation Diagnostics Lab Results InterpretationResultsLaboratory Tests 02/15/202325:[Embedded Image Not Available]Laboratory Tests: 02/14 232 Chemistry Sodium (134 - 147 mEq/L) 134 [...] (Auto) (28.0 - 48.0 %) 13.9 L [place] % (Auto) (3.0 - 15.0 %) 10.0 Eos % (Auto) (1.0 - 8.0 %) 0.0 L Baso % (Auto) (0.0 - 2.0 %) 0.4 Neut # (Auto) (2.0 - 3.2 x10 3/uL) 9.16 H Lymph # (Auto) (1.0 - 3.8 x10 3/uL) 1.70 [place] # (Auto) (0.1 - 0.8 x10 3/uL) 1.22 H Eos # (Auto) (0.0 - 0.4 x10 3/uL) 0.00 Baso # (Auto) (0.0 - 0.2 x10 3/uL) 0.05 Abs Immat Gran (auto) (0.00 - 0.03 x10 3/uL) 0.06 H Add Manual Diff NO Immature Gran % (0.0 - 2.0 %) 0.5 Nucleated RBC % (0 - 0 %) 0.0 Nucleated RBCs # (Man) (0.0 - 0.1 x10 3/uL) 0.00 Serology Monoscreen (NEGATIVE) NEGATIVE Urines Urine Color (YEL/STRAW) YELLOW Urine Appearance (CLEAR) CLEAR Urine pH (5.0 - 7.0) 6.0 Ur Specific [place] (1.005 - 1.030) 1.015 Urine Protein (NEGATIVE) [...] 2320 Streptococcus Culture - RES THROAT Recent Impressions:CAT SCAN - CT NECK W/CONTRAST 02/15 0134 Report Impression - Status: SIGNED Entered: 02/16/2020 0239 IMPRESSION:1. Enlarged neck lymph nodes bilaterally. Differential considerationwould include inflammatory/infectious or metastatic adenopathy.2. Enlarged right aspect of lingual tonsils. Although this may bedue to infectious/inflammatory process, follow-up to resolutionrecommended. SL: TORI-HImpression By: [id number] - Jeromy Wolfe M.D. Lab Imaging StatementLaboratory radiographic studies reviewed and considered in the medical decision-making. Point of Care TestingPulse Oximetry Pulse Ox % 100 On: Room air Interpretation Interpreted by me, Pulse oximetry normal Time 0128 Re-Evaluation MDM Free Text MDM NotesFree Text MDM NotesPt notes R cervical lymphadenopathy that has been fluctuant in size for 2-3 years, noting she failed to get bx that was suggested. I advised mother and pt on life threatening risks of lymphadenopathy and advised close OP f/u. Given fever in addition to lymphadenopathy, will cover with empiric ATB therapy. Re-Evaluation/Progress #1Text/Dict NotePatient reassessed. Patient remains awake, alert, oriented, respirations nonlabored, appears comfortable and is ambulatory with steady gait. I discussedall results, most likely diagnosis, at home recommendations, ED return precautions and advised follow-up with PCP IN 3-10 DAYS FOR RE-EVAL OF LYMPHADENOPATHYTime of Re-Eval 0252 ED CourseMedication(s) OrderedMedication(s) Ordered:Anti-Infective Agents Sig/Victoriano Start time Last Medication Dose Route Stop Time Status Admin Ceftriaxone Sodium 1,000 MG X1ED STA 02/140 DC 02/14 Sodium Chloride 10 ML IV 02/14 2322 232 Central Nervous System Agents Sig/Victoriano Start time Last Medication Dose Route Stop Time Status Admin Acetaminophen 1,000 MG X1ED STA 02/142 DC 02/14 PO 02/14 2313 2320 Diagnostic Agents Sig/Victoriano Start time Last Medication Dose Route Stop Time Status Admin Iopamidol 70 ML .STK-MED ONE 02/15 0136 DC 02/15 IV 02/15 137 0136 Electrolytic, Caloric, And Gregor Sig/Victoriano Start time Last Medication Dose Route Stop Time Status Admin Sodium Chloride 1,000 ML X1ED STA 02/142 DC 02/14 IV 02/14 2313 2321 Eye, Ear, Nose And Throat (Een Sig/Victoriano Start time Last Medication Dose Route Stop Time Status Admin Dexamethasone Sodium 10 MG X1ED STA 02/142 DC 02/14 Phosphate IV 02/14 2313 2321 Gastrointestinal Drugs Sig/Victoriano Start time Last Medication Dose Route Stop Time Status Admin Ondansetron HCl 4 MG X1ED STA 02/14 2312 DC 02/14 IV 02/143 2321 Patient Discharge Departure Vital Signs/ConditionVital SignsFirst Documented: Result Date Time Pulse Ox 100 02/148 B/P 112/63 02/15 2308 B/P Mean 79 02/15 2308 O2 Delivery Room air 02/15 2308 Temp 39.1 02/15 2308 Pulse 117 02/14 230 Resp 18 02/15 2308 Last Documented: Result Date Time Pulse Ox 99 02/15 0328 B/P 96/55 02/15 0328 B/P Mean 68 02/158 O2 Delivery Room air 02/16 328 Temp 36.8 02/16 328 Pulse 83 02/16 328 Resp 18 02/16 328 All vital signs available at the time of this entry have been reviewed. Condition Stable Clinical ImpressionClinical ImpressionPrimary Impression: Viral pharyngitisSecondary Impressions: Cervical lymphadenopathy, Suspected COVID-19 virus infection Disposition DecisionDischarge )( Discharged to Home Yes )( Time 0251 )( Date 02/16/20 COVID-19 Discharge PlanCDC Criteria Met for Testing YesTest Performed Yes, result pending Discharge/Care PlanCounseled Regarding Diagnosis, Lab results, Imaging studies, Prescriptions, Needfor follow-up, When to return to EDPrescriptionsmoRony franco Priscila E MD (PCP/Family) Nirav Nolan 02/16/20 0517:HPI-General Illness GeneralInitial Greet Date/Time 02/15/20 1245 Patient Discharge Departure Supervising Physician Note MidLv Saw Pt AloneI have reviewed the PA/TREE LOADER [employer]AT's note and plan of care. I was available for consultation as needed at all times during the patient's visit in the emergency department. I agree with the clinical impression, plan and disposition. at 0332RPT #:[id number] OF REPORTEDEmergency department [id number]:20:00G.[id number] ilable for patient sfrpKOZPFDLXMZYILC4500-19-35Q61:17:52 [facility] 2020-02-15 23:20:00 [id number] [id number]+[id number]P67:2 0:00 [facility]ERG[facility] PROVIDER REPORTREPORT#:[id number] REPORT STATUS: SignedDATE:02/15/20 TIME: 2319 PATIENT: LUIS EDMONDS UNIT #: [id number]#: [id number] ROOM/BED:AGE: 19 SEX: F PCP PHYS: Elina Rome AUTHOR: Amilcar Pablo [employer] * ALL edits or amendments must be made on the electronic/computer document * Amilcar Pablo 02/15/20 2320:HPI-General Illness Free Text HPI NotesFree Text HPI [id number]-eghg-zhk female with past medical history of asthma presents to the ER with mother with complaint of fever, sore throat, nausea, right ear pain and enlargedR cervical lymph node onset today. Pt took 2 tabs of motrin earlier today. She denies any cough, congestion, SOB, wheezing, abd pain, v/d, dysuria, hematuria or vaginal discharge. No known Covid exposures. PresentationChief Complaint Fever, Sore throatHx Obtained From Patient, PARENT Review of Systems ROS StatementsAll systems rev neg except as marked. Review of SystemsConstitutionalReports: Fever. Ears/Nose/ThroatReports: Earache R, Sore throat. Denies: Nasal congestion. RespiratoryDenies: Cough, non-productive, Cough, productive, Shortness of breath, Wheezing. GIReports: Nausea. Denies: Abdominal pain, Diarrhea, Vomiting. FemaleDenies: Flank pain, Hematuria, Vaginal discharge. Past Medical History - AdultStated Complaint FEVER, SORE THROAT, BODY ACHES,AllergiesUncoded Allergies:MALIC ACID (Severe, TONGUE SWELLING, THROAT CLOSING 12/24/17) Home MedicationsReported MedicationsIBUPROFEN (MOTRIN) 800 MG PO TID Past Medical History:Reports: Asthma. Denies: Diabetes mellitus, GERD/gastritis, Hypertension, Kidney disease/stones, Seizure disorder. Additional Medical Historychronic pinched nerveAdditional Surgical HistorytonsilectomySmoking status for patients 13 years old or older: Never Smoker Physical Exam Vital SignsVital SignsFirst Documented: Result Date Time Pulse Ox 100 02/15 2308 B/P 112/63 02/15 2308 B/P Mean 79 02/15 2308 O2 Delivery Room air 02/15 2308 Temp 39.1 02/15 2308 Pulse 117 02/14 2308 Resp 18 02/15 2308 Last Documented: Result Date Time Pulse Ox 99 02/15 0328 B/P 96/55 07/31 0328 B/P Mean 68 02/16 328 O2 Delivery Room air 02/16 328 Temp 36.8 02/16 328 Pulse 83 02/16 328 Resp 18 02/16 328 Review of Vital Signs Reviewed Free Text PE NotesFree Text PE NotesGen: Well developed, acutely ill but non-toxic appearance. smells of smokeHead: NormocephalicEyes: Pupils midline, sclera NL, no periorbital edema, conjunctiva normalEars: TMs intact bilaterally with good landmarks, no erythema. EAC patent without swelling, erythema, or drainage. No mastoid swelling or TTPNose: no nasal drainage or mucosal edemaThroat: Moist mucous membranes, handling secretions. Airway patent. OP clear without exudates or petechia. Tonsils surgically absent. Mild protrusion of R posterior upper palate without obvious abscessNeck: Supple, FROM, no meningismus, + R anterior cervical adenopathy Lungs: CTA all lobes. Respirations NL. No wheezing, No rhonchi, No dyspnea. No stridor or accessory muscle use. Heart: Regular rhythm, No murmurs. tachycardia c/w feverAbd: Soft, non-tender, non-distended. No rebound, guarding, or peritoneal sxs.No palpable masses or pulsatile masses. No TTP at [place] PointExt: No obvious deformityNeuro: awake and alert, speech NL for age, behavior age-appropriate. Interpretation Diagnostics Lab Results InterpretationResultsLaboratory Tests 02/15/20 2326:[Embedded Image Not Available]Laboratory Tests: 02/14 02/14 2326 2326 Chemistry Sodium [...] (Auto) (28.0 - 48.0 %) 13.9 L [place] % (Auto) (3.0 - 15.0 %) 10.0 Eos % (Auto) (1.0 - 8.0 %) 0.0 L Baso % (Auto) (0.0 - 2.0 %) 0.4 Neut # (Auto) (2.0 - 3.2 x10 3/uL) 9.16 H Lymph # (Auto) (1.0 - 3.8 x10 3/uL) 1.70 [place] # (Auto) (0.1 - 0.8 x10 3/uL) 1.22 H Eos # (Auto) (0.0 - 0.4 x10 3/uL) 0.00 Baso # (Auto) (0.0 - 0.2 x10 3/uL) 0.05 Abs Immat Gran (auto) (0.00 - 0.03 x10 3/uL) 0.06 H Add Manual Diff NO Immature Gran % (0.0 - 2.0 %) 0.5 Nucleated RBC % (0 - 0 %) 0.0 Nucleated RBCs # (Man) (0.0 - 0.1 x10 3/uL) 0.00 Serology Monoscreen (NEGATIVE) NEGATIVE Urines Urine Color (YEL/STRAW) YELLOW Urine Appearance (CLEAR) CLEAR Urine pH (5.0 - 7.0) 6.0 Ur Specific [place] (1.005 - 1.030) 1.015 Urine Protein (NEGATIVE) [...] 2320 Streptococcus Culture - RES THROAT Recent Impressions:CAT SCAN - CT NECK W/CONTRAST 02/15 0134 Report Impression - Status: SIGNED Entered: 02/16/2020 0239 IMPRESSION:1. Enlarged neck lymph nodes bilaterally. Differential considerationwould include inflammatory/infectious or metastatic adenopathy.2. Enlarged right aspect of lingual tonsils. Although this may bedue to infectious/inflammatory process, follow-up to resolutionrecommended. SL: TORI-HImpression By: [id number] - Jeromy Wolfe M.D. Lab Imaging StatementLaboratory radiographic studies reviewed and considered in the medical decision-making. Point of Care TestingPulse Oximetry Pulse Ox % 100 On: Room air Interpretation Interpreted by me, Pulse oximetry normal Time 0128 Re-Evaluation MDM Free Text MDM NotesFree Text MDM NotesPt notes R cervical lymphadenopathy that has been fluctuant in size for 2-3 years, noting she failed to get bx that was suggested. I advised mother and pt on life threatening risks of lymphadenopathy and advised close OP f/u. Given fever in addition to lymphadenopathy, will cover with empiric ATB therapy. Re-Evaluation/Progress #1Text/Dict NotePatient reassessed. Patient remains awake, alert, oriented, respirations nonlabored, appears comfortable and is ambulatory with steady gait. I discussedall results, most likely diagnosis, at home recommendations, ED return precautions and advised follow-up with PCP IN 3-10 DAYS FOR RE-EVAL OF LYMPHADENOPATHYTime of Re-Eval 0252 ED CourseMedication(s) OrderedMedication(s) Ordered:Anti-Infective Agents Sig/Victoriano Start time Last Medication Dose Route Stop Time Status Admin Ceftriaxone Sodium 1,000 MG X1ED STA 02/140 DC 02/14 Sodium Chloride 10 ML IV 02/142 2324 Central Nervous System Agents Sig/Victoriano Start time Last Medication Dose Route Stop Time Status Admin Acetaminophen 1,000 MG X1ED STA 02/14 2312 DC 02/14 PO 02/14 2313 2320 Diagnostic Agents Sig/Victoriano Start time Last Medication Dose Route Stop Time Status Admin Iopamidol 70 ML .STK-MED ONE 02/15 0136 DC 02/15 IV 02/15 137 0136 Electrolytic, Caloric, And Gregor Sig/Victoriano Start time Last Medication Dose Route Stop Time Status Admin Sodium Chloride 1,000 ML X1ED STA 02/14 2312 DC 02/14 IV 02/14 2313 2321 Eye, Ear, Nose And Throat (Een Sig/Victoriano Start time Last Medication Dose Route Stop Time Status Admin Dexamethasone Sodium 10 MG X1ED STA 02/14 2312 DC 02/14 Phosphate IV 02/14 2313 2321 Gastrointestinal Drugs Sig/Victoriano Start time Last Medication Dose Route Stop Time Status Admin Ondansetron HCl 4 MG X1ED STA 02/14 2312 DC 02/14 IV 02/14 231 2321 Patient Discharge Departure Vital Signs/ConditionVital SignsFirst Documented: Result Date Time Pulse Ox 100 [...] signs available at the time of this entry have been reviewed. Condition Stable Clinical ImpressionClinical ImpressionPrimary Impression: Viral pharyngitisSecondary Impressions: Cervical lymphadenopathy, Suspected COVID-19 virus infection Disposition DecisionDischarge )( Discharged to Home Yes )( Time 0251 )( Date 02/16/20 COVID-19 Discharge PlanCD Criteria Met for Testing YesTest Performed Yes, result pending Discharge/Care PlanCounseled Regarding Diagnosis, Lab results, Imaging studies, Prescriptions, Needfor follow-up, When to return to EDPrescriptionsmotrin, ceceinReferralsElina Rome MD (PCP/Family) Nirav Nolan 02/16/20 0517:HPI-General Illness GeneralInitial Greet Date/Time 02/15/20 0599 Patient Discharge Departure Supervising Physician Note MidLv Saw Pt AloneI have reviewed the PA/TREE LOADER MEAT's note and plan of care. I was available for consultation as needed at all times during the patient's visit in the emergency department. I agree with the clinical impression, plan and disposition. at 0332 at 0517RPT #:[id number] OF REPORTEDEmergency department [id number]:20:00G.[id number] ilable for patient [id number]:18:02 [facility] 2019-05-22 11:29:00 [id number]:2 9:00 [facility] ([facility] PROVIDER REPORTREPORT#:[id number] REPORT STATUS: SignedDATE:05/22/19 TIME: 1129 PATIENT: LUIS EDMONDS UNIT #: [id number]#: [id number] ROOM/BED:AGE: 18 SEX: F PCP PHYS: Elina RomeERVHYACINTH AUTHOR: Carla Toledo MD * ALL edits or amendments must be made on the electronic/computer document * HPI-Allergic Reaction Peds GeneralConfirmed Patient YesPatient Type Existing patientInitial Greet Date/Time 05/22/19 1121 PresentationChief Complaint Allergic reactionHx Obtained from PatientOnset Occurred Today, Minutes ago (30)Symptom Duration Since onsetProgression since Onset UnchangedSeverity: Onset MildSeverity: Current MildAssociated withReports: Swelling, throat. Denies: Difficulty speaking, Difficulty swallowing, Rash/redness all over, Swelling, face, Swelling, lips, Swelling, tongue, Vomiting, Welts/hives. Exacerbated by NothingRelieved by OTC antihistamine, Epi-pen ContextRelated HistoryReports: Known allergy. Denies: Anaphylaxis. Similar Sx Previous Yes Free Text HPI NotesFree Text HPI Notes18 y/o F with PMHx of asthma presents to the ED with c/o allergic reaction, onset 30mins [employer]. Pt reports eating sour Skittles and felt sensation of throat swelling with associated neck/throat itchiness and SOB. She took 50mg of Benadryl and Epi Pen at school [employer]. Pt was seen here previously on 05/02/19 withsimilar presentation. Denies any n/v, rashes, or any wheezing. Portions of this section were scribed by Laith Harvey on 05/22/19 at 1129 Review of Systems ROS StatementsAll systems rev neg except as marked. Review of SystemsConstitutionalDenies: Chills, Fever, Irritability, Lethargy. EyesDenies: Discharge, Redness, Swelling. Ears/Nose/ThroatReports: Throat swelling. Denies: Nasal congestion, Rhinorrhea, Sores/lesions, Tongue swelling. RespiratoryReports: Shortness of breath. Denies: Cough, barking-type, Cough, Hemoptysis. CardiovascularDenies: Cyanosis, Edema. GIDenies: Abdominal pain, Diarrhea, Nausea, Vomiting - bilious, Vomiting - non-bilious. FemaleDenies: Dysuria, Flank pain. HematologicDenies: Bleeding, Bruising. SkinDenies: Abrasion, Laceration, Rash, Swelling. Allergy/ImmunDenies: Hives, Swelling. NeurologicDenies: Numbness, Tingling. Portions of this section were scribed by Laith Harvey on 05/22/19 at 1129 Past Medical History - PedsStated Complaint ALLERGIC REACTION TO SOUR CANDYAllergiesUncoded Allergies:MALIC ACID (Severe, TONGUE SWELLING, THROAT CLOSING 12/24/17) Home MedicationsReported MedicationsIBUPROFEN (MOTRIN) 800 MG PO TID Review of Nursing Notes Rev avail, and agreePast Medical History:Reports: Asthma/chronic lung ds, GI issues/GERD. Additional Medical Historychronic pinched nerveAdditional Surgical HistorytonsilectomyPatient HistoryFATHER Family History: Heart diseaseMOTHER Family History: Cancer Smoking status for patients 13 years old or older: Never SmokerSocial HistoryReports: Lives with father, Good social support. Portions of this section were scribed by Laith Harvey on 05/22/19 at 1129 Physical Exam Vital SignsVital SignsFirst Documented: Result Date Time Pulse Ox 100 [...] 1313 Review of Vital Signs Reviewed Focused PEGeneral/Const General/Const Awake, Alert, No apparent distress, Well appearing, Cooperative, No irritabilityMS Head Head Atraumatic, NormocephalicEyes Eyes PERRL, EOMI, No nystagmus, No scleral icterusEars/Nose/Throat Ears/Nose/Throat Airway patent, Mucous membranes moist, Pharynx NL, No pooling of secretionsResp/Chest Respiratory/Chest Atraumatic, Breath sounds NL, Breath sounds = bilat, No respiratory distress, No grunting, No rales, No rhonchi, No wheezing, No retractions, No stridorCardiovascular Cardiovascular Heart rate NL, Regular rhythm, Heart sounds NLAbdomen/GI Abdomen/GI Soft, Non-tender, No guarding, No rebound, No distentionSkin Skin No rash, Warm, Dry, IntactNeurologic Neurologic Orientation NL for age, Speech NL for age, Gait NL for age Additional PEMS Neck Neck Supple, No meningismus, Full range of motion Portions of this section were scribed by Laith Harvey on 05/22/19 at 1129 Interpretation Diagnostics Point of Care TestingPulse Oximetry Pulse Ox % 100 On: Room air Interpretation Interpreted by me, Pulse oximetry normal Time 1120 Portions of this section were scribed by Laith Harvey on 05/22/19 at 1129 Re-Evaluation MDM )( Re-Evaluation/Progress #1Text/Dict NoteNO edema of OP, tongue, or lips. Pt resting, NAD, feels much better. Time of Re-Eval 1257)( Re-Eval Status Improved ED CourseMedication(s) OrderedMedication(s) Ordered:Autonomic Drugs Sig/Victoriano Start time Last Medication Dose Route Stop Time Status Admin Albuterol Sulfate 2.5 MG Q15M 05/22 1130 DC 05/22 NEB 05/22 1201 1138 Eye, Ear, Nose And Throat (Een Sig/Victoriano Start time Last Medication Dose Route Stop Time Status Admin Ipratropium [place] 0.5 MG Q15M 05/22 1130 DC 05/22 NEB 05/22 1201 1138 Gastrointestinal Drugs Sig/Victoriano Start time Last Medication Dose Route Stop Time Status Admin Famotidine 20 MG X1ED STA 05/22 1128 DC 05/22 PO 05/22 1129 1137 Hormones And Synthetic Substit Sig/Victoriano Start time Last Medication Dose Route Stop Time Status Admin Prednisone 50 MG X1ED STA 05/22 1129 DC 05/22 PO 05/22 1130 1137 Patient Discharge Departure Vital Signs/ConditionVital SignsFirst Documented: Result Date Time Pulse Ox 100 [...] signs available at the time of this entry have been reviewed. Condition Stable Clinical ImpressionClinical ImpressionPrimary Impression: Acute allergic reaction Disposition DecisionDischarge )( Discharged to Home Yes )( Time 1258 )( Date 05/22/19 Discharge/Care PlanCounseled Regarding Diagnosis, Lab results, Prescriptions, Need for follow-up, When to return to ED, cessation of eating candyPrescriptionsbenadryl, pepcid, prednisone, albuterol, Epi penPrescriptions Reviewed Risks, Benefits Discharge NoteI have spoken with the patient and/or caregivers. I have explained the patient'scondition, diagnoses and treatment plan based on the information available to meat this time. I have answered the patient's and/or caregiver's questions and addressed any concerns. The patient and/or caregivers have as good an understanding of the patient's diagnosis, condition and treatment plan as can beexpected at this point. The vital signs have been stable. The patient's condition is stable and appropriate for discharge from the emergency department. The patient will pursue further outpatient evaluation with the primary care physician or other designated or consulting physician as outlined in the discharge instructions. The patient and/or caregivers are agreeable to this planof care and follow-up instructions have been explained in detail. The patient and/or caregivers have received these instructions in written format and have expressed an understanding of the discharge instructions. The patient and/or caregivers are aware that any significant change in condition or worsening of symptoms should prompt an immediate return to this or the closest emergency department or a call to 911. Supervising Physician Note Scribe StatementLaith Harvey, 05/22/19 1129, scribing for and in the presence of Dr. Toledo.Signed By: Laith Harvey, 05/22/19 1129 Provider Scribed StatementI personally performed the services described in this documentation and reviewedthe documentation that was dictated to the scribe(s) in my presence, and it accurately records my words and actions. Carla Toledo, 05/22/19 Portions of this section were scribed by Laith Harvey on 05/22/19 at 1129 at 2022RPT #:[id number] OF REPORTUT Health [facility] department [id number]:29:00E.[id number] ilable for patient [id number]:22:40 [facility] 2019-05-02 09:53:00 [id number]:5 3:00 [facility] ([facility] PROVIDER REPORTREPORT#:[id number] REPORT STATUS: SignedDATE:05/02/19 TIME: 0953 PATIENT: LUIS EDMONDS UNIT #: [id number]#: [id number] ROOM/BED:AGE: 18 SEX: F PCP PHYS: Elina oRme MDSERVICE AUTHOR: Carla Toledo MD * ALL edits or amendments must be made on the electronic/computer document * HPI-Allergic Reaction Peds GeneralConfirmed Patient YesInitial Greet Date/Time 05/02/19 0949PCPDr. Rome ([facility]) PresentationChief Complaint Allergic reactionHx Obtained from Patient, ParamedicOnset Occurred TodaySymptom Duration Since onsetProgression since Onset Rapidly improvingSeverity: Onset ModerateSeverity: Current ModerateAssociated withReports: Itching localized, Swelling, throat. Associated Other Pt denies other symptomsExacerbated by NothingRelieved by OTC antihistamine, Epi-pen Free Text HPI NotesFree Text HPI Notes18 y/o F with PMHx of asthma and panic disorder presents to ED via EMS for allergic reaction x today at 0800. Pt reports she ate sour candy when onset occurred. She reports throat swelling, used an epi pen, and took 50 mg of benadryl [employer]. Now c/o itchy throat. Denies nausea and vomiting. Portions of this section were scribed by Priscilla Edwards on 05/02/19 at 0957 Review of Systems ROS StatementsAll systems rev neg except as marked. Review of SystemsConstitutionalDenies: Chills, Fever. EyesDenies: Pain, Photophobia. Ears/Nose/ThroatDenies: Nasal congestion, Rhinorrhea. RespiratoryDenies: Cough, Shortness of breath. CardiovascularDenies: Chest pain, Palpitations. GIDenies: Abdominal pain, Nausea, Vomiting - non-bilious. FemaleDenies: Dysuria, Flank pain. MusculoskeletalDenies: Back pain, Muscle pain. HematologicDenies: Bleeding, Bruising. SkinDenies: Laceration, Rash. Allergy/ImmunReports: Itching, Swelling. Portions of this section were scribed by Priscilla Edwards on 05/02/19 at 0957 Past Medical History - PedsStated Complaint ALLERGIC REACTIONAllergiesUncoded Allergies:MALIC ACID (Severe, TONGUE SWELLING, THROAT CLOSING 12/24/17) Home MedicationsReported MedicationsNo Known Home Medications Review of Nursing Notes Rev avail, and agreePast Medical History:Reports: Asthma/chronic lung ds, GI issues/GERD. Additional Medical Historychronic pinched nerveAdditional Surgical HistorytonsilectomyPatient HistoryFATHER Family History: Heart diseaseMOTHER Family History: Cancer Smoking status for patients 13 years old or older: Never SmokerSocial HistoryReports: Lives with father, Good social support. Portions of this section were scribed by Priscilla Edwards on 05/02/19 at 0957 Physical Exam Vital SignsVital SignsFirst Documented: Result Date Time Pulse Ox 98 05/02 944 B/P 121/57 05/02 944 B/P Mean 78 05/02 944 Temp 36.9 05/02 944 Pulse 82 05/02 944 Resp 18 05/02 944 O2 Delivery Room air 05/02 1130 Last Documented: Result Date Time Pulse Ox 99 05/020 B/P 100/54 05/020 B/P Mean 69 05/02 1130 O2 Delivery Room air 05/02 1130 Temp 36.8 05/02 1130 Pulse 77 05/02 1130 Resp 18 05/02 1130 Review of Vital Signs Reviewed Focused PEGeneral/Const General/Const Awake, Alert, No apparent distressMS Head Head Atraumatic, NormocephalicEyes Eyes PERRL, EOMI, No nystagmusEars/Nose/Throat Ears/Nose/Throat Airway patent, Mucous membranes moist, Pharynx NL, No pooling of secretionsResp/Chest Respiratory/Chest Breath sounds NL, Breath sounds = bilat, No respiratory distress, No grunting, No rales, No rhonchi, No wheezingCardiovascular Cardiovascular Heart rate NL, Regular rhythm, Heart sounds NLAbdomen/GI Abdomen/GI Soft, Non-tender, No distentionSkin Skin Color NL, No rash, Warm, Dry, IntactNeurologic Neurologic Orientation NL for age, Speech NL for age, No motor deficits Additional PEMS Neck Neck Supple, No meningismus, Full range of motion Portions of this section were scribed by Priscilla Edwards on 05/02/19 at 0957 Interpretation Diagnostics Point of Care TestingPulse Oximetry Pulse Ox % 98 On: Room air Interpretation Interpreted by sc, Pulse oximetry normal Time 0944 Portions of this section were scribed by Priscilla Edwards on 05/02/19 at 0957 Re-Evaluation MDM )( Re-Evaluation/Progress #1Text/Dict NotePt states her sx have resolved, parents are at bedside, everyone understands tx plan. Time of Re-Eval 1116)( Re-Eval Status Improved, Resolved ED CourseMedication(s) OrderedMedication(s) Ordered:Autonomic Drugs Sig/Victoriano Start time Last Medication Dose Route Stop Time Status Admin Albuterol/Ipratropium 3 ML X1ED STA 05/02 0953 DC 05/02 NEB 05/02 0954 1002 Gastrointestinal Drugs Sig/Victoriano Start time Last Medication Dose Route Stop Time Status Admin Famotidine 20 MG X1ED STA 05/02 0953 DC 10 IV 05/02 0954 1002 Hormones And Synthetic Substit Sig/Victoriano Start time Last Medication Dose Route Stop Time Status Admin Methylprednisolone 125 MG X1ED STA 05/02 0953 DC 10 Sodium Succinate IV 05/02 0954 1002 Portions of this section were scribed by Priscilla Edwards on 05/02/19 at 0957 Patient Discharge Departure Vital Signs/ConditionVital SignsFirst Documented: Result Date Time Pulse Ox 98 05/02 944 B/P 121/57 05/02 944 B/P Mean 78 05/02 944 Temp 36.9 05/02 944 Pulse 82 05/02 944 Resp 18 05/02 944 O2 Delivery Room air 05/02 1130 Last Documented: Result Date Time Pulse Ox 99 05/02 1130 B/P 100/54 10/15 1130 B/P Mean 69 05/02 1130 O2 Delivery Room air 05/02 1130 Temp 36.8 05/02 1130 Pulse 77 05/02 1130 Resp 18 05/02 1130 All vital signs available at the time of this entry have been reviewed. Clinical ImpressionClinical ImpressionPrimary Impression: Allergic reaction Disposition DecisionDischarge )( Discharged to Home Yes )( Time 1129 )( Date 05/02/19 Discharge/Care PlanCounseled Regarding Diagnosis, Prescriptions, Need for follow-up, When to returnto EDPrescriptionsalbuterol, benadryl, pepcid, prednisone, EpipenPrescriptions Reviewed Risks, Benefits Discharge NoteI have spoken with the patient and/or caregivers. I have explained the patient'scondition, diagnoses and treatment plan based on the information available to meat this time. I have answered the patient's and/or caregiver's questions and addressed any concerns. The patient and/or caregivers have as good an understanding of the patient's diagnosis, condition and treatment plan as can beexpected at this point. The vital signs have been stable. The patient's condition is stable and appropriate for discharge from the emergency department. The patient will pursue further outpatient evaluation with the primary care physician or other designated or consulting physician as outlined in the discharge instructions. The patient and/or caregivers are agreeable to this planof care and follow-up instructions have been explained in detail. The patient and/or caregivers have received these instructions in written format and have expressed an understanding of the discharge instructions. The patient and/or caregivers are aware that any significant change in condition or worsening of symptoms should prompt an immediate return to this or the closest emergency department or a call to 911. Quality MeasuresSmoking Cessation Screened, non userTobacco Screening/Cessation Denies tobacco use Supervising Physician Note Scribe StatementPriscilla Edwards, 05/02/19 0953, scribing for and in the presence of [Dr. Toledo].Signed By: Priscilla Edwards, [birth year]/02/1982 Provider Scribed StatementI personally performed the services described in this documentation and reviewedthe documentation that was dictated to the scribe(s) in my presence, and it accurately records my words and actions. Carla Toledo, 05/02/19 Portions of this section were scribed by Priscilla Edwards on 05/02/19 at 0957 at 1436RPT #:[id number] OF REPORTUT Health [place] department [id number]:53:00E.[id number] ilable for patient [id number]:36:37 [facility]
[2023-08-22 23:54] LABS: Absolute Lymphocytes (CBC) 2.2 K/uL (0.7-4.9); Hematocrit 37.9 % (36.0-45.0); Lymphocytes % 25.9 % (15.3-44.8); MCV 86.2 fL (80-100); MPV 9.2 fL (7.6-11.3); Platelets 218 thou/uL (152-406); Urine Bacteria None Seen /HPF (<20); Urine Bilirubin NEGATIVE (Negative); Urine Blood Negative (Negative); Urine Clarity Turbid (Clear); Urine Color Yellow (Yellow); Urine Glucose NEGATIVE (Negative); Urine Mucus Slight /HPF (None Seen); Urine Protein TRACE (Negative); Urine RBC <5 /HPF (None Seen); Urine Urobilinogen Normal (Normal); Urine pH 5.5 (5.0-7.0)
[2023-08-23 00:05] LABS: Albumin 3.7 g/dL (3.4-5.0); Bilirubin Total 0.3 mg/dL (0.2-1.0); Potassium 3.6 mEq/L (3.5-5.1); Protein, Total 7.6 g/dL (6.4-8.2)
--- NOTE | 2023-08-23 01:25 | ER ---
Nurse's Notes [facility] Name: Hilaria Rogers Age: 22 yrs Sex: Female : 2000 Arrival Date: 08/22/2023 Time: 22:39 Bed 15 Private MD: Diagnosis: Nausea with vomiting, unspecified;Abdominal pain, Generalized;Acute Gastroenteritis Presentation: 08/22 22:47 Chief complaint: Patient states: Pt c/o bilateral lower back pain that is worse on the tl4 right x 5 days. Pt also c/o lower abdominal pain, decreased urination, and vomiting that is getting worse. Coronavirus screen: At this time, the client does not indicate any symptoms associated with coronavirus-19. Ebola Screen: No symptoms or risks identified at this time. Initial Sepsis Screen: Does the patient meet any 2 criteria? No. Patient's initial sepsis screen is negative. Does the patient have a suspected source of infection? No. Patient's initial sepsis screen is negative. Risk Assessment: Do you want to hurt yourself or someone else? Patient reports no desire to harm self or others. Onset of symptoms was August 17, 2023. 22:47 Method Of Arrival: Ambulatory tl4 22:47 Acuity: CONCHITA 3 tl4 Triage Assessment: 22:50 General: Appears uncomfortable, Behavior is calm, cooperative. Pain: Complains of pain tl4 in back and abdomen. EENT: No deficits noted. No signs and/or symptoms were reported regarding the EENT system. Neuro: No deficits noted. Cardiovascular: No deficits noted. Respiratory: No deficits noted. GI: Reports lower abdominal pain, nausea, vomiting. : Reports pain with urination, decreased urine output. Derm: No deficits noted. No signs and/or symptoms reported regarding the dermatologic system. VISION THERAPIST: 22:50 unknown tl4 Historical: - Allergies: 22:49 sour candy; tl4 - PSHx: 22:49 Adenoid excision; Tonsillectomy; tl4 - Immunization history:: Adult Immunizations unknown. - Social history:: Smoking status: Reported history of juuling and/or vaping. - Family history:: not pertinent. Screenin:25 [facility] ED Fall Risk Assessment (Adult) History of falling in the last 3 months, rv including since admission No falls in past 3 months (0 pts) Score/Fall Risk Level 0 - 2 = Low Risk Oriented to surroundings, Maintained a safe environment, Educated pt \T\ family on fall prevention, incl call for assistance when getting out of bed, Assessed \T\ reinforced patient's understanding of fall precautions. Abuse screen: Denies threats or abuse. Denies injuries from another. Nutritional screening: No deficits noted. Tuberculosis screening: No symptoms or risk factors identified. Assessment: 23:25 General: Appears comfortable, Behavior is calm, cooperative. Pain: Complains of pain in rv abdomen. Neuro: Level of Consciousness is awake, alert, obeys commands, Oriented to person, place, time, situation. Cardiovascular: Capillary refill < 3 seconds Patient's skin is warm and dry. Respiratory: Airway is patent Respiratory effort is even, unlabored. GI: Abdomen is round non-distended. : Reports URINARY RETENTION. Derm: Skin is intact. Vital Signs: 22:47 BP 108 / 66; Pulse 67; Resp 16; Temp 98.3; Pulse Ox 100% on R/A; Weight 69.85 kg; tl4 Height 5 ft. 2 in. ; Pain 9/10; 08/23 01:33 BP 112 / 71; Pulse 73; Resp 17; Temp 98; Pulse Ox 99% on R/A; rv 08/22 22:47 Body Mass Index 28.17 (69.85 kg, 157.48 cm) tl4 02 22:47 Pain Scale: Adult tl4 Russell Coma Score: 08/22 23:25 Eye Response: spontaneous(4). Motor Response: obeys commands(6). Verbal Response: rv oriented(5). Total: 15. 08/23 01:33 Eye Response: spontaneous(4). Motor Response: obeys commands(6). Verbal Response: rv oriented(5). Total: 15. ED Course: 08/22 22:43 Patient arrived in ED. jj6 22:44 Candace Baum PA-C is PHCP. sb4 22:44 Jose Mancia MD is Attending Physician. sp4 22:49 Triage completed. tl4 22:52 Arm band placed on right wrist. tl4 23:04 Cal Taylor, KELSEY is Primary Nurse. rv 23:25 Patient has correct armband on for positive identification. Client placed on continuous rv cardiac and pulse oximetry monitoring. NIBP monitoring applied. gambling monitor on. 23:25 No provider procedures requiring assistance completed. Inserted saline lock: 20 gauge rv in right antecubital area, using aseptic technique. Blood collected. 08/23 00:41 CT Abd/Pelvis - IV Contrast Only In Process Unspecified. EDMS 01:34 IV discontinued, intact, bleeding controlled, No redness/swelling at site. Pressure rv dressing applied. Administered Medications: 08/22 23:34 Drug: NS 0.9% IV 1000 ml IV at 1 bolus Per protocol; 1000 mL bolus Route: IV; Rate: 1 rv bolus; Site: right antecubital; 08/23 01:33 Follow up: IV Status: Completed infusion; IV Intake: 1000ml rv 08/22 23:34 Drug: morphine IVP or IV 4 mg IVP once over 4 mins Route: IVP; Infused Over: 4 mins; rv Site: right antecubital; 08/23 01:33 Follow up: Response: No adverse reaction rv 08/22 23:35 Drug: Ondansetron IVP 4 mg IVP once; over 2 minutes Route: IVP; Site: right antecubital;rv 08/23 01:33 Follow up: Response: No adverse reaction rv 01:32 Drug: metoCLOPramide IVP 10 mg IVP once; over 1 to 2 minutes Route: IVP; Site: right rv antecubital; 01:33 Follow up: Response: Medication administered at discharge. rv 01:32 Drug: Promethazine IM 25 mg IM once Route: IM; Site: right deltoid; rv 01:32 Follow up: Response: Medication administered at discharge. rv 01:33 Not Given (Patient Refused): [id number] mg IVP once; dilute with 10 mL 0.9% NaCl; rv give over 2 minutes 01:33 Not Given (Patient Refused): TORadol - [id number] mg IVP once rv 01:33 Not Given (Patient Refused): ns 0.9% 1000 ml IV at 1 bolus Per protocol; 1000 mL bolus rv Medication: 08/22 23:25 VIS not applicable for this client. rv Intake: 08/23 01:33 IV: 1000ml; Total: 1000ml. rv Outcome: 01:24 Discharge ordered by MD. bustos 01:34 Discharged to home ambulatory, rv 01:34 Condition: good 01:34 Discharge instructions given to patient, Instructed on discharge instructions, follow up and referral plans. medication usage, Demonstrated understanding of instructions, follow-up care, medications, Prescriptions given X 3, 01:34 Patient left the ED. rv Signatures: Dispatcher [employer] EDCal Dexter, RN RN Sharla Polanco Sophia, PAMitchel PAMitchel sb4 Jose Mancia MD MD sp4 Nathaniel Whyte tl4 Corrections: (The following items were deleted from the chart) 08/22 22:50 22:49 Home Meds: vitamins; tl4 tl4
--- NOTE | 2023-08-23 01:25 | EDPHYS ---
Physician Documentation [facility] Name: Hilaria Rogers Age: 22 yrs Sex: Female : 2000 Arrival Date: 08/22/2023 Time: 22:39 Bed 15 Private MD: ED Physician Jose Mancia HPI: 08/22 22:44 This 22 yrs old Female presents to ER via Unassigned with complaints of sp4 Urinary Retention. 08/23 04:19 22-year-old female presents with complaint of several days of nausea vomiting abdominal sp4 pain also decreased urination. Patient suspects she may be . . 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 - Social history:: Smoking status: Reported history of juuling and/or vaping. - Family history:: not pertinent. ROS: 08/23 04:19 Constitutional: Negative for fever, chills, and weight loss, positive nausea vomiting, sp4 positive abdominal pain, positive decreased urination All other systems are negative, Exam: 04:19 Constitutional: This is a well developed, well nourished patient who is awake, alert, sp4 and in no acute distress. Ill-appearing but nontoxic Head/Face: Normocephalic, atraumatic. Eyes: Pupils equal round and reactive to light, extra-ocular motions intact. Lids and lashes normal. Conjunctiva and sclera are not injected. Cornea within normal limits. Periorbital areas with no swelling, redness, or edema. ENT: Nares patent. No nasal discharge, no septal abnormalities noted. Tympanic membranes are normal and external auditory canals are clear. Oropharynx with no redness, swelling, or masses, exudates, or evidence of obstruction, uvula midline. Mucous membranes moist. Neck: Trachea midline, no thyromegaly or masses palpated, and no cervical lymphadenopathy. Supple, full range of motion without nuchal rigidity, or vertebral point tenderness. Chest/axilla: Normal chest wall appearance and motion. Nontender with no deformity. No lesions are appreciated. Cardiovascular: Regular rate and rhythm with a normal S1 and S2. No gallops, murmurs, or rubs. Normal PMI, no JVD. No pulse deficits. Respiratory: Lungs have equal breath sounds bilaterally, clear to auscultation and percussion. No rales, rhonchi or wheezes noted. No increased work of breathing, no retractions or nasal flaring. Abdomen/GI: Soft, with normal bowel sounds. No distension or tympany. No guarding or rebound. Positive bilateral tenderness. No peritoneal sings. Back: No spinal tenderness. No costovertebral tenderness. Skin: Warm, dry with normal turgor. Normal color with no rashes, no lesions, and no evidence of cellulitis. MS/ Extremity: Pulses equal, no cyanosis. Neurovascular intact. Full, normal range of motion. Neuro: Awake and alert, GCS 15, oriented to person, place, time, and situation. Cranial nerves II-XII grossly intact. Motor strength 5/5 in all extremities. Sensory grossly intact. Psych: Awake, alert, with orientation to person, place and time. Behavior, mood, and affect are within normal limits Vital Signs: 08/22 22:47 BP 108 / 66; Pulse 67; Resp 16; Temp 98.3; Pulse Ox 100% on R/A; Weight 69.85 kg; tl4 Height 5 ft. 2 in. ; Pain 9/10; 08/23 01:33 BP 112 / 71; Pulse 73; Resp 17; Temp 98; Pulse Ox 99% on R/A; rv 08/22 22:47 Body Mass Index 28.17 (69.85 kg, 157.48 cm) tl4 08/22 22:47 Pain Scale: Adult tl4 Russell Coma Score: 08/22 23:25 Eye Response: spontaneous(4). Motor Response: obeys commands(6). Verbal Response: rv oriented(5). Total: 15. 08/23 01:33 Eye Response: spontaneous(4). Motor Response: obeys commands(6). Verbal Response: rv oriented(5). Total: 15. MDM: 08/22 22:45 Patient medically screened. sp4 08/23 01:19 ED course: PROCEDURE: Abdomen Pelvis W Contrast CLINICAL HISTORY: ABD PAIN TECHNIQUE: sp4 Contiguous axial images obtained through the abdomen and pelvis following the uneventful administration of IV contrast. Coronal and sagittal reformatted images were provided. This exam was performed according to our departmental dose-optimization program, which includes automated exposure control, adjustment of the mA and/or kV according to patient size and/or use of iterative reconstruction technique. COMPARISON: April 2023 FINDINGS: Lung bases: Clear Liver: Unremarkable Gallbladder and biliary system: Unremarkable Pancreas: Unremarkable Spleen: Unremarkable Adrenals: Unremarkable Kidneys: Normal renal cortical enhancement. No calculi. No hydronephrosis. GI: No obstruction. No appreciable mucosal thickening. Appendix: No findings to suggest acute appendicitis. Urinary bladder: Unremarkable Reproductive: 2 cm corpus luteum or involuting follicle in the right ovary, for which no follow-up imaging is recommended Lymph nodes: No pathologically enlarged lymph nodes. Peritoneum: Trace fluid in the pelvis, likely physiologic. No free air. Vessels: No abdominal aortic aneurysm. Abdominal wall: Unremarkable Bones: Unremarkable IMPRESSION: 1. No acute intra-abdominal or pelvic disease. 2. 2 cm corpus luteum or involuting follicle in the right ovary, for which no follow-up imaging is recommended. Trace fluid in the pelvis, likely physiologic. Electronically signed by: Mayank Limon MD 08/23/2023 01:02 AM C. 04:19 Differential Diagnosis altered mental status, sepsis, flu, Gastroenteritis. Data sp4 reviewed: vital signs, nurses notes, lab test result(s), radiologic studies, CT scan. Consideration of Admission/Observation Escalation of care including admission/observation considered. ED course: CT today is negative. Patient is stable for discharge home with symptomatic medications. . 08/22 22:44 Order name: Test, Urine; Complete Time: 01:02 sp4 08/22 22:44 Order name: Urinalysis W/Microscopic; Complete Time: 01:02 sp4 08/22 23:15 Order name: CBC with Diff; Complete Time: 01:02 sp4 08/22 23:15 Order name: CMP; Complete Time: 01:02 sp4 08/22 23:15 Order name: Lipase; Complete Time: 01:02 sp4 08/22 23:15 Order name: CT Abd/Pelvis - IV Contrast Only sp4 08/22 23:15 Order name: IV Saline Lock; Complete Time: 23:16 sp4 08/22 23:15 Order name: Labs collected and sent; Complete Time: 23:16 sp4 Administered Medications: 08/22 23:34 Drug: NS 0.9% IV 1000 ml IV at 1 bolus Per protocol; 1000 mL bolus Route: IV; Rate: 1 rv bolus; Site: right antecubital; 08/23 01:33 Follow up: IV Status: Completed infusion; IV Intake: 1000ml rv 08/22 23:34 Drug: morphine IVP or IV 4 mg IVP once over 4 mins Route: IVP; Infused Over: 4 mins; rv Site: right antecubital; 08/23 01:33 Follow up: Response: No adverse reaction rv 08/22 23:35 Drug: Ondansetron IVP 4 mg IVP once; over 2 minutes Route: IVP; Site: right antecubital;rv 08/23 01:33 Follow up: Response: No adverse reaction rv 01:32 Drug: metoCLOPramide IVP 10 mg IVP once; over 1 to 2 minutes Route: IVP; Site: right rv antecubital; 01:33 Follow up: Response: Medication administered at discharge. rv 01:32 Drug: Promethazine IM 25 mg IM once Route: IM; Site: right deltoid; rv 01:32 Follow up: Response: Medication administered at discharge. rv 01:33 Not Given (Patient Refused): [id number] mg IVP once; dilute with 10 mL 0.9% NaCl; rv give over 2 minutes 01:33 Not Given (Patient Refused): TORadol - [id number] mg IVP once rv 01:33 Not Given (Patient Refused): ns 0.9% 1000 ml IV at 1 bolus Per protocol; 1000 mL bolus rv Disposition Summary: 08/23/23 01:24 Discharge Ordered Notes: Location: Home sp4 Problem: new sp4 Symptoms: have improved sp4 Condition: Stable sp4 Diagnosis - Nausea with vomiting, unspecified sp4 - Abdominal pain, Generalized sp4 - Acute Gastroenteritis sp4 Followup: sp4 - With: Private Physician - When: 7 - 10 days - Reason: Recheck today's complaints Discharge Instructions: - Discharge Summary Sheet sp4 - Viral Gastroenteritis, Adult, [id number] sp4 - Clear Liquid Diet, Adult, [id number] sp4 Forms: - Patient Portal Instructions sp4 Prescriptions: - Ibuprofen 800 mg Oral Tablet - take 1 tablet ORAL route every 8 hours As needed take with food; 30 tablet; sp4 Refills: 0, Product Selection Permitted - promethazine 25 mg Oral tablet - take 1 tablet ORAL route every 6 hours As needed PRN nausea; 30 tablet; sp4 Refills: 0, Product Selection Permitted - dicyclomine 20 mg Oral tablet - take 1 tablet ORAL route every 6 hours PRN abdominal pain; 30 tablet; Refills: sp4 0, Product Selection Permitted Signatures: Dispatcher [employer] Cal Draper RN RN rv Potepalov, Sergey, MD MD sp4 Nathaniel Whyte tl4 Corrections: (The following items were deleted from the chart) 08/22 22:50 22:49 Home Meds: vitamins; tl4 tl4
--- NOTE | 2023-08-23 14:15 | RAD REPORT ---
EXAM DESCRIPTION: CT - Abdomen Pelvis W Contrast - 08/23/2023 7:01 am CLINICAL HISTORY: ABD PAIN TECHNIQUE: Contiguous axial images obtained through the abdomen and pelvis following the uneventful administration of IV contrast. Coronal and sagittal reformatted images were provided. This exam was performed according to our departmental dose-optimization program, which includes autom ated exposure control, adjustment of the mA and/or kV according to patient size and/or use of iterati ve reconstruction technique. COMPARISON: April 2023 FINDINGS: Lung bases: Clear Liver: Unremarkable Gallbladder and biliary system: Unremarkable Pancreas: Unremarkable Spleen: Unremarkable Adrenals: Unremarkable Kidneys: Normal renal cortical enhancement. No calculi. No hydronephrosis. GI: No obstruction. No appreciable mucosal thickening. Appendix: No findings to suggest acute appendicitis. Urinary bladder: Unremarkable Reproductive: 2 cm corpus luteum or involuting follicle in the right ovary, for which no follow-up im aging is recommended Lymph nodes: No pathologically enlarged lymph nodes. Peritoneum: Trace fluid in the pelvis, likely physiologic. No free air. Vessels: No abdominal aortic aneurysm. Abdominal wall: Unremarkable Bones: Unremarkable IMPRESSION: 1. No acute intra-abdominal or pelvic disease. 2. 2 cm corpus luteum or involuting follicle in the right ovary, for which no follow-up imaging is recommended. Trace fluid in the pelvis, likely physiologic. Electronically signed by: Mayank Limon MD 08/23/2023 01:02 AM [employer] Due to temporary technical issues with the PACS/Fluency reporting system, reports are being signed by the in house radiologist without review as a courtesy to ensure prompt reporting. The interpreting r adiologist is fully responsible for the content of the report.
[2023-08-23 15:32] VITALS: BP 112/71; TEMP 98; O2SAT 99
== END ==
LOC: ER 22:39
DX: K52.9 Noninfective gastroenteritis and colitis, unspecified (principal); R10.84 Generalized abdominal pain
CPT/HCPCS: 85025; 81001; 36415; 81025; 83690; 80053; 74177; Q9967; J2405; J7030

== ENCOUNTER 2024-01-07 23:54 | Emergency (ER) | payer SELFPAY ==
--- OUTSIDE RECORDS SUMMARY | 2024-01-08 00:02 | XMS REPORT | Continuity of Care Document ---
Author Name Unknown Address [address] [facility] [place] [address] [facility] thconnect Address [address] [facility] [address] [place] [address] Care Team Providers Care Compensation Consultant Name Role Phone FREDERICK RICHARDSON Joceline Primary Care Physician Unavailab Brittnee Acosta Attending Clinician UnavailMADHAVI Garnett Attending Clinician Unavailable MERT MILES Attending Clinician Unavailable MERT MILES Attending Clinician Unavailable PHILL ROMAN Attending Clinician UnavailPhill Garnett MD Attending Clinician [phone] Luis Burciaga Attending Clinician UnavailSUZY Malcolm Attending Clinician Unavailable Suzy Uriostegui MD Attending Clinician [phone] Effie Marquez Attending Clinician Unava ilANTONIA Ken Attending Clinician Unavailable Antonia Pike MD Attending Clinician [phone] Ghanshyam Chavez Attending Clinician Tierney vilma Nurse, Osvaldo Evangelista Attending Clinician Unavaila Frederick Herrera MD Attending Clinician [phone] FREDERICK RICHARDSON Attending Clinician Unavailable AR RICHARDSON Attending Clinician Unavailable Ar Richardson MD Attending Clinician [phone] Kishor Bishop Attending Clinician Unavailable ELINA ROME Attending Clinician Unavailable Madhavi Roman PA-C Attending Clinician [phone] Dottie Chavez Attending Clinician UnavailZachery KIMP, Nathalia Cagle Attending Clinician [phone] Ny Khan MD Attending Clinician [phone] Olivier HOUSEMAID, Aneta Esparza Attending Clinician [phone] Unknown, Attending Attending Clinician Unavailab miah LOPEZ, ATTENDING Attending Clinician Unavailab Pearl Petersen Attending Clinician Unavailjas Noble RN, Tashia Rae Attending Clinician Unavailab miah Last HOUSEMAID, Lily Hummel Attending Clinician [phone] Maryellen PICKERING, Lydia Joy Attending Clinician [phone] Doctor Unassigned, [place] Attending Clinician U raoulailisha HEREDIA, Liberty Attending Clinician [phone] LIBERTY CAMP Attending Clinician Unavailable Wiliam KIMP, Antonia Attending Clinician + [phone] Dagoberto JOB PLACEMENT SPECIALIST, Kassidy Cagle Attending Clinician [phone] Rajan PICKERING, Elina Pandey Attending Clinici an KASSIDY ARENAS Attending Clinician Unavailab REJI Bose Attending Clinician Unavailable Ivet PICKERING, Aiden Conde Attending Clinician [phone] SOSA ADAMES Attending Clinician Unavailable Sosa Adames MD Attending Clinician [phone] Santiago COLE, Sandra Joy Attending Clinician Unavaila Ashley Schafer DO Attending Clinician + [phone] Orquidea PICKERING, Mike Jaffe Attending Clinician [phone] Shahnaz MIRELES, Sujata Attending Clinician SZUY URIOSTEGUI Admitting Clinician Unavailable [place] KHAN Admitting Clinician Unavailable Brittnee Ramirez Admitting Clinician UnavailElina Chavez Admitting Clinician Unavail able PHILL ROMAN Admitting Clinician UnavailPhill Garnett MD Admitting Clinician [phone] Luis Burciaga Admitting Clinician UnavailSuzy Malcolm MD Admitting Clinician [phone] Emily Artis Admitting Clinician UnavailANTONIA Samaniego Admitting Clinician Unavailable Effie Solitario Admitting Clinician Unaalondra ilisha Physician, No Primary or Family Admitting Clinic lizzeth Unavailable Dottie Chavez Admitting Clinician UnavailNy Frederick MD Admitting Clinician [phone] Pearl Chavez Admitting Clinician UnavailSOSA Bae Admitting Clinician Unavailable Payers Payer Name Policy Type Policy Number Effective Date Expirati on Date Source [facility] [id number] 2023 00:00:00 [facility] [id number] 00:00:00 [facility] [id number] 2023 00:00:00 Problems Condition Name Condition Details Condition Category Status Onset Date Resolution Date Last Treatment Date Treating Clinician Comments Source Acute appendicit is Acute appendicit is Disease Active 2022-07 0-15 00:00: 00 [facility] Anxiety Anxiety Disease Active [facility] Depression Depression Disease Active [facility] Allergies, Adverse Reactions, Alerts Allergy Name Allergy Type Status Severity Reaction(s) Onset Date Inactive Date Treating Clinician Comments Source MARCUS ACID- THROAT SWELLING DA Active SV 08-03 00:00: 00 [facility] No Known Allergie s DA Active U 11-23 00:00: 00 [facility] No Known Allergie s DA Active U 11-23 00:00: 00 [facility] MALIC ACID DA Active SV TONGUE SWELLING, THROAT CLOSING 12-24 00:00: 00 [facility] Malic Acid Drug Allergy Active Swelling 12-24 00:00: 00 [facility] MALIC ACID DRUG INGREDI Active High Swelling 12-24 00:00: 00 [facility] SOUR MOREAU DRUG INGREDI Active Anaphylaxis 11-15 00:00: 00 [facility] Sour Moreau Propensi ty to adverse reaction s Active Anaphylaxis 11-15 00:00: 00 Sour flavoring on all candy [facility] Social History Social Habit Start Date Stop Date Quantity Comments Source ASSERTION 2022-02-27 00:00:00 [facility] Sexual orientation U [facility] Alcohol intake 2023-05-03 00:00:00 2023-05-03 00:00:00 Ex-drinker (finding) [facility] Exposure to SARS-CoV-2 (event) 2022-10-07 00:00:00 2022-10-17 15:17:00 Not sure [facility] History of Social function 2022-02-25 00:00:00 2022-02-25 00:00:00 [facility] Tobacco use and exposure 2022-02-25 00:00:00 2022-02-25 00:00:00 Smokeless tobacco non-user [facility] Sex Assigned At 2000 00:00:00 2000 00:00:00 [facility] Smoking Status Start Date Stop Date Source Never smoked tobacco [facility] Medications Ordered Medication Name Filled Medication Name Start Date Stop Date Current Medication? Ordering Clinician Indication Dosage Frequency Signature (SIG) Comments Components Source ibuprofen (IBU) tablet 400 mg 2022-07 15:00: 00 Yes 400mg 400 mg, Oral, Q8H, First dose on 05/03/23 at 1000, Until Discontinu ed, Routine [facility] SERTraline 25 mg tablet 2022-07 12:24: 34 Yes 25mg Take 1 tablet by mouth in the morning. [facility] ketorolac (TORADOL) injection 30 mg 2022-07 04:00: 00 05-03 03:38 :00 No 30mg 30 mg, Slow IV Push, ONCE, 1 dose, On 05/02/23 at 2300, Routine [facility] ibuprofen 400 mg tablet 2022-07 00:00: 00 05-11 04:59 :00 No [id number] 400mg Take 1 tablet by mouth every 8 (eight) hours as needed for Pain (scale 4-6) for up to 7 days. [facility] traMADoL 50 mg tablet 2022-07 00:00: 00 05-11 04:59 :00 No [id number] 50mg Take 1 tablet by mouth every 6 (six) hours as needed for Pain (scale 7-10) for up to 7 days. Indication s: acute pain [facility] enoxaparin (LOVENOX) injection 40 mg 2022-07 22:00: 00 Yes 40mg 40 mg, Subcutaneo us, DAILY, First dose on 05/02/23 at 1700, Until Discontinu ed, Routine [facility] lactated ringers IV infusion 1,000 mL 2022-07 17:15: 00 Yes 1000mL at 100 mL/hr, 1,000 mL, IV Infusion, CONTINUOUS , Starting on Wed05/02/23 at 1215, Until Discontinu ed, Routine, PACU [facility] HYDROcodone -acetaminop hen (NORCO 5) 5-325 mg tablet 1 tablet 2022-07 17:15: 00 05-02 17:48 :00 No 1{tbl} 1 tablet, Oral, ONCE, 1 dose, On Wed05/02/23 at 1215, Routine, PACU [facility] FENTanyl PF (SUBLIMAZE (PF)) injection 25 mcg 2022-07 17:13: 49 05-02 18:23 :47 No 25ug 25 mcg, Slow IV Push, Q5MIN PRN, 4 doses, Starting on Wed05/02/23 at 1213, Until [place] 05/02/23 at 1323, Routine, Pain (scale 4-6), PACU [facility] HYDROcodone -acetaminop hen (NORCO 5) 5-325 mg tablet 1 tablet 2022-07 16:58: 20 Yes 1{tbl} 1 tablet, Oral, Q4HPRN, Starting on Wed05/02/23 at 1158, Until Discontinu ed, Routine, Pain (scale 4-6) [facility] sodium chloride 0.9 % irrigation solution 2022-07 16:49: 00 05-02 17:12 :46 No PRN, Starting on Wed05/02/23 at 1149, Until Wed05/02/23 at 1212, Intra-op [facility] bupivacaine (preserv free) (SENSORCAIN E MPF) 0.25 % (2.5 mg/mL) injection 2022-07 16:35: 00 05-02 17:12 :46 No PRN, Starting on Wed05/02/23 at 1135, Until Wed05/02/23 at 1212, Routine, Intra-op [facility] NaCl 0.9% (NS) IV infusion 1,000 mL 2022-07 09:30: 00 05-02 16:57 :40 No 1000mL at 125 mL/hr, IV Infusion, CONTINUOUS , Starting on Wed05/02/23 at 0430, Until Wed05/02/23 at 1157, Routine [facility] ondansetron (ZOFRAN (PF)) injection 4 mg 2022-07 09:23: 00 Yes 4mg 4 mg, Slow IV Push, Q4HPRN, Starting on Wed05/02/23 at 0423, Until Discontinu ed, Routine, Nausea and Vomiting (N/V) [facility] FENTanyl PF (SUBLIMAZE (PF)) injection 12.5 mcg 2022-07 09:22: 41 05-02 16:58 :38 No 12.5ug 12.5 mcg, Slow IV Push, Q4HPRN, Starting on Wed05/02/23 at 0422, Until Wed05/02/23 at 1158, Routine, Pain (scale 7-10) [facility] acetaminoph en (TYLENOL) tablet 650 mg 2022-07 09:22: 29 Yes 650mg 650 mg, Oral, Q6HPRN, Starting on Wed05/02/23 at 0422, Until Discontinu ed, Routine, Pain (scale 1-3) [facility] FLUTICASONE PROPIONATE 50 mcg/actuati on nasal spray 2020-07 00:00: 00 05-02 00:00 :00 No [id number] SPRAY 1 SPRAY INTO EACH NOSTRIL EVERY DAY [facility] EPINEPHrine 0.3 mg/0.3 mL injection 2019-07 00:00: 00 Yes [id number] INJECT 0.3 ML BY INTRAMUSCU LAR ROUTE ONCE NOW FOR 1 DOSE. [facility] Immunizations Ordered Immunization Name Filled Immunization Name Date Status Comments Source Meningococcal Polysaccharide (groups A, C, Y and W-135) conjugate vaccine (MCV4P) 2019-02-23 00:00:00 Completed [facility] Meningococcal Polysaccharide (groups A, C, Y and W-135) conjugate vaccine (MCV4P) 2019-02-23 00:00:00 Completed [facility] DTP 2005-01-21 00:00:00 Completed [facility] HIB 3 Dose Schedule 2005-01-21 00:00:00 Completed [facility] HEPATITIS A 2005-01-21 00:00:00 Completed [facility] Pneumococcal 7 Conjugate, PCV7 (Prevnar7) 2005-01-21 00:00:00 Completed [facility] DTP 2005-01-21 00:00:00 Completed [facility] HIB 3 Dose Schedule 2005-01-21 00:00:00 Completed [facility] HEPATITIS A 2005-01-21 00:00:00 Completed [facility] Pneumococcal 7 Conjugate, PCV7 (Prevnar7) 2005-01-21 00:00:00 Completed [facility] MMR 2003-12-25 00:00:00 Completed [facility] Polio (IPV/OPV) 2003-12-25 00:00:00 Completed [facility] Pneumococcal 7 Conjugate, PCV7 (Prevnar7) 2003-12-25 00:00:00 Completed [facility] MMR 2003-12-25 00:00:00 Completed [facility] Polio (IPV/OPV) 2003-12-25 00:00:00 Completed [facility] Pneumococcal 7 Conjugate, PCV7 (Prevnar7) 2003-12-25 00:00:00 Completed [facility] DTP 2003-06-19 00:00:00 Completed [facility] HIB 3 Dose Schedule 2003-06-19 00:00:00 Completed [facility] Hep B, Adol or Pedi Dosage 2003-06-19 00:00:00 Completed [facility] Polio (IPV/OPV) 2003-06-19 00:00:00 Completed [facility] DTP 2003-06-19 00:00:00 Completed [facility] HIB 3 Dose Schedule 2003-06-19 00:00:00 Completed [facility] Hep B, Adol or Pedi Dosage 2003-06-19 00:00:00 Completed [facility] Polio (IPV/OPV) 2003-06-19 00:00:00 Completed [facility] Hep B, Adol or Pedi Dosage 2002 00:00:00 Completed [facility] Hep B, Adol or Pedi Dosage 2002 00:00:00 Completed [facility] DTP Unknown Completed [facility] DTP Unknown Completed [facility] HIB 3 Dose Schedule Unknown Completed [facility] HIB 3 Dose Schedule Unknown Completed [facility] HEPATITIS A Unknown Completed [facility] Hep B, Adol or Pedi Dosage Unknown Completed [facility] Hep B, Adol or Pedi Dosage Unknown Completed [facility] MMR Unknown Completed [facility] Polio (IPV/OPV) Unknown Completed [facility] Polio (IPV/OPV) Unknown Completed [facility] Meningococcal Polysaccharide (groups A, C, Y and W-135) conjugate vaccine (MCV4P) Unknown Completed [facility] Pneumococcal 7 Conjugate, PCV7 (Prevnar7) Unknown Completed [facility] Pneumococcal 7 Conjugate, PCV7 (Prevnar7) Unknown Completed [facility] DTP Unknown Completed [facility] DTP Unknown Completed [facility] HIB 3 Dose Schedule Unknown Completed [facility] HIB 3 Dose Schedule Unknown Completed [facility] HEPATITIS A Unknown Completed [facility] Hep B, Adol or Pedi Dosage Unknown Completed [facility] Hep B, Adol or Pedi Dosage Unknown Completed [facility] MMR Unknown Completed [facility] Polio (IPV/OPV) Unknown Completed [facility] Polio (IPV/OPV) Unknown Completed [facility] Meningococcal Polysaccharide (groups A, C, Y and W-135) conjugate vaccine (MCV4P) Unknown Completed [facility] Pneumococcal 7 Conjugate, PCV7 (Prevnar7) Unknown Completed [facility] Pneumococcal 7 Conjugate, PCV7 (Prevnar7) Unknown Completed [facility] Vital Signs Vital Name Observation Time Observation Value Comments S ource Systolic blood pressure 2023-05-03 12:17:00 101 mm[Hg] [facility] Diastolic blood pressure 2023-05-03 12:17:00 59 mm[Hg] [facility] Heart rate 2023-05-03 12:17:00 68 /min Unive [facility] Body temperature 2023-05-03 12:17:00 36.22 Harmony [facility] Respiratory rate 2023-05-03 12:17:00 18 /min [facility] Oxygen saturation in Arterial blood by Pulse oximetry 2023-05-03 12:17:00 96 /min [facility] Body weight 2023-05-03 08:19:00 70.126 kg [facility] BMI 2023-05-03 08:19:00 28.28 kg/m2 [facility] Body height 2023-05-02 08:25:00 157.5 cm [facility] Systolic blood pressure 2023-05-02 18:25:00 97 mm[Hg] [facility] Diastolic blood pressure 2023-05-02 18:25:00 60 mm[Hg] [facility] Heart rate 2023-05-02 18:25:00 59 /min [facility] Body temperature 2023-05-02 18:25:00 36.11 Harmony [facility] Respiratory rate 2023-05-02 18:25:00 18 /min [facility] Oxygen saturation in Arterial blood by Pulse oximetry 2023-05-02 18:25:00 100 /min [facility] Body height 2023-05-02 08:25:00 157.5 cm [facility] Body weight 2023-05-02 08:25:00 69.037 kg [facility] BMI 2023-05-02 08:25:00 28.28 kg/m2 [facility] Systolic blood pressure 2022-10-17 20:18:00 99 mm[Hg] [facility] Diastolic blood pressure 2022-10-17 20:18:00 63 mm[Hg] [facility] Body temperature 2022-10-17 20:18:00 36.78 Harmony [facility] Respiratory rate 2022-10-17 20:18:00 16 /min [facility] Heart rate 2022-10-17 19:56:00 92 /min Unive [facility] Body height 2022-10-17 19:56:00 157.5 cm [facility] Body weight 2022-10-17 19:56:00 71.668 kg [facility] BMI 2022-10-17 19:56:00 28.90 kg/m2 [facility] Oxygen saturation in Arterial blood by Pulse oximetry 2022-10-17 19:56:00 99 /min [facility] Procedures Procedure Date / Time Performed Performing Clinician Source CBC WITH DIFF 2023-05-03 11:31:00 Celso [facility] CBC WITH DIFF 2023-05-03 11:31:00 Celso [facility] LAPAROSCOPIC APPENDECTOMY 2023-05-02 15:50:00 Miles, [facility] LAPAROSCOPIC APPENDECTOMY 2023-05-02 15:50:00 Miles, [facility] POCT TEST 2023-05-02 15:31:00 Miles, [facility] POCT TEST 2023-05-02 15:31:00 Miles, [facility] MAGNESIUM 2023-05-02 10:15:00 Phill Roman [facility] HEPATIC FUNCTION PANEL ([id number]) (ALB,T.PRO,BILI T,BU/BC,ALT,AST,ALK PHOS) 2023-05-02 10:15:00 Phill Roman [facility] BASIC METABOLIC PANEL (NA, K, CL, CO2, GLUCOSE, BUN, CREATININE, CA) 2023-05-02 10:15:00 Phill Roman [facility] CBC WITH DIFF 2023-05-02 10:15:00 Phill Roman Un [facility] MAGNESIUM 2023-05-02 10:15:00 Phill Roman [facility] HEPATIC FUNCTION PANEL ([id number]) (ALB,T.PRO,BILI T,BU/BC,ALT,AST,ALK PHOS) 2023-05-02 10:15:00 Phill Roman [facility] BASIC METABOLIC PANEL (NA, K, CL, CO2, GLUCOSE, BUN, CREATININE, CA) 2023-05-02 10:15:00 Phill Roman [facility] CBC WITH DIFF 2023-05-02 10:15:00 [facility] [id number] 2022-10-31 00:00:00 MAXBA [facility] [id number] 2022-10-30 00:00:00 MAXBA [facility] [id number] 2021-03-26 00:00:00 MAXBA [facility] [id number] 2021-03-26 00:00:00 MAXBA [facility] Encounters Start Date/Time End Date/Time Encounter Type Admission Type Attending Clinicians Care Facility Care Department Encounter ID Source 2022-10-17 17:56:29 Outpatient X [facility] [id number] [facility] 2021-05-19 04:10:53 Outpatient X [facility] [id number] [facility] 2021-05-19 04:10:48 Emergency [facility] [id number] [facility] 2021-05-18 12:59:52 Emergency [facility] [id number] [facility] 2021-05-18 03:01:47 Emergency [facility] [id number] [facility] 2020-11-23 00:57:29 Inpatient Junior Ramirezia [facility] [id number] [facility] 2020-10-05 01:43:54 Inpatient [facility] [id number] [facility] 2020-08-22 20:18:00 Inpatient [facility] KAELA [id number] [facility] 2020-02-15 22:49:00 Inpatient [facility] KAELA [id number] [facility] 2023-08-23 13:00:00 2023-08-23 13:00:00 Outpatient MADHAVI MCNAIR [facility] [id number] [facility] 2023-05-24 13:00:00 2023-05-24 13:00:00 Outpatient MERT HOUSE [place] [facility] [id number] [facility] 2023-05-02 03:19:00 2023-05-03 12:20:00 Outpatient U PHILL ROMAN [facility] OLAYINKA [id number] [facility] 2023-05-02 03:19:00 2023-05-03 12:20:00 Hospital Encounter Phill Roman. [facility] [id number] [id number] [facility] 2023-05-02 11:24:00 2023-05-02 13:33:00 Surgery Mert Miles [facility] [id number] [id number] [id number] [id number] [facility] 2022-10-30 19:17:00 2022-11-02 18:53:00 Inpatient EL Patrica Luis [facility] OBPP [id number] [facility] 2022-10-17 14:59:00 2022-10-17 17:00:00 Outpatient X SUZY URIOSTEGUI [facility] [id number] [facility] 2022-10-17 14:59:00 2022-10-17 17:00:00 Emergency AdSuzy diaz [facility] [id number] [id number] [id number] [id number] [facility] 2022-09-26 22:39:00 2022-09-27 17:00:00 Inpatient EM Maximashleigh Luis [facility] OBANTE [id number] [facility] 2022-09-07 23:59:00 2022-09-14 10:45:00 Inpatient EM Patrica Luis [facility] OBANTE [id number] [facility] 2022-08-03 15:04:00 2022-08-03 16:59:00 Emergency EM Effie Ramsay [facility] OLGA [id number] [facility] 2022-03-20 14:10:00 2022-03-20 14:10:00 Outpatient ANTONIA CAPPS [facility] [id number] [facility] 2022-03-20 00:00:00 2022-03-20 00:00:00 Telephone Antonia Pike [facility] 1.0.114 [id number] [id number] [id number] [facility] 2022-03-16 14:10:00 2022-03-16 14:10:00 Outpatient ANTONIA CAPPS [facility] [id number] [facility] 2022-03-13 13:30:00 2022-03-13 13:30:00 Outpatient ANTONIA CAPPS [facility] [id number] [facility] 2022-03-13 11:10:00 2022-03-13 11:10:00 Outpatient ANTONIA CAPPS [facility] [id number] [facility] 2022-03-06 15:06:00 2022-03-06 16:12:00 Emergency EM Ghanshyam Chavez [facility] [id number] [facility] 2022-03-04 00:00:00 2022-03-04 00:00:00 Telephone Antonia Pike [facility] [id number] [id number] [id number] [id number] [facility] 2022-03-03 00:00:00 2022-03-03 00:00:00 Telephone Antonia Pike [facility] 1.840.114 350.1.13.10 [id number] [id number] [facility] 2022-03-02 17:43:24 2022-03-02 23:59:00 Outpatient R ANTONIA PIKE [facility] [id number] [facility] 2022-03-02 17:43:24 2022-03-02 23:59:00 Outpatient R ANTONIA PIKE [facility] [id number] [facility] 2022-03-02 17:30:00 2022-03-02 23:59:00 Hospital Encounter Antonia Pike [facility] 1.114 350.1.13.10 4.2.7.2.686 [id number] [facility] 2022-02-26 14:50:00 2022-02-26 15:10:00 Nurse Visit Nurse, Frederick Miller [facility] 1.114 350.1.13.10 4.2.7.2.686 [id number] [facility] 2022-02-26 14:50:00 2022-02-26 14:50:00 Outpatient FREDERICK CORRAL [facility] [id number] [facility] 2022-02-25 14:45:00 2022-02-25 23:59:00 Outpatient R PIKE, ANTONIA [facility] [id number] [facility] 2022-02-25 14:45:00 2022-02-25 23:59:00 Hospital Encounter Antonia Pike [facility] 1.114 350.1.13.10 4.2.7.2.686 [id number] [facility] 2022-02-25 13:50:00 2022-02-25 15:29:57 Outpatient R ANTONIA PIKE [facility] [id number] [facility] 2022-02-25 13:50:00 2022-02-25 15:29:57 Office Visit Antonia Pike [facility] 1.114 350.1.13.10 [id number] [id number] [facility] 2022-02-23 15:50:00 2022-02-23 15:50:00 Outpatient R SHAHZAD ANTONIA [facility] [id number] [facility] 2022-02-12 21:31:00 2022-02-12 22:34:00 Emergency X [facility] [id number] [facility] 2022-02-12 21:31:00 2022-02-12 22:34:00 Emergency [facility] 1..114 350.1.13.10 [id number] [id number] [facility] 2021-11-11 00:16:00 2021-11-11 00:55:00 Emergency EM Ernesto Bishopuel [facility] AERS [id number] [facility] 2021-11-04 15:30:00 2021-11-04 15:30:00 Outpatient R ELINA ROME [facility] [id number] [facility] 2021-08-08 22:06:00 2021-08-08 22:30:00 Emergency EM Ghanshyam Chavez [facility]ERS [id number] [facility] 2021-06-13 00:00:00 2021-06-13 00:00:00 Refill Madhavi Roman [facility] [facility] 1..114 350.1.13.10 4.2.7.2.686 [id number] [facility] 2021-05-12 13:41:54 2021-05-12 14:13:40 Office Visit Madhavi [facility] 1.84.114 350.1.13.10 4.2.7.2.686 [id number] [facility] 2021-05-12 13:30:00 2021-05-12 13:30:00 Outpatient MADHAVI MCNAIR [facility] [id number] Nitajairo joy [facility] 2021-03-25 14:56:00 2021-03-28 15:32:00 Inpatient EL Luis Burciaga [facility] OBPP [id number] [facility] 2021-03-12 21:07:00 2021-03-13 01:05:00 Emergency EM Effie Solitario [facility] OLGA [id number] [facility] 2021-03-01 05:33:00 2021-03-01 09:00:00 Emergency EM Luis Burciaga [facility] [id number] [facility] 2021-02-17 15:17:00 2021-02-17 16:47:00 Emergency EM Effie Solitario [facility] [id number] [facility] 2021-02-12 19:14:00 2021-02-12 22:29:00 Emergency EM Effie Solitario [facility] [id number] [facility] 2021-01-29 02:30:00 2021-01-29 03:50:00 Emergency EM Dottie Chavez [facility] OLGA [id number] [facility] 2021-01-13 01:18:00 2021-01-13 02:30:00 Emergency MiladisNathalia [facility] 1.2.840.114 350.1.13.10 4.2.7.2.686 [id number] 2021-01-13 01:18:00 2021-01-13 02:30:00 Emergency Nabil Reddingroseanne Khan [facility] 1.2.840.114 350.1.13.10 4.2.7.2.686 [id number] [facility] 2021-01-11 17:51:24 2021-01-11 18:25:45 Urgent Care Aneta Aguayo [facility] 1.2840.114 350.1.13.10 4.2.7.2.686 [id number] 2021-01-11 17:51:24 2021-01-11 18:25:45 Urgent Care Aneta Aguayo Vilma Unknown, Attending [facility] 1.2840.114 350.1.13.10 4.2.7.2.686 [id number] [facility] 2021-01-11 18:00:00 2021-01-11 18:00:00 Outpatient R UNKNOWN, ATTENDING [facility] [id number] [facility] 2020-12-25 15:08:00 2020-12-25 18:26:00 Emergency EM Pearl Chavez [facility]GA [id number] [facility] 2020-11-23 00:02:00 2020-11-23 02:58:00 Emergency [facility] [id number] [facility] 2020-11-01 00:00:00 2020-11-01 00:00:00 [facility] 1.2840.114 350.1.13.10 4.2.7.2.686 [id number] 2020-11-01 00:00:00 2020-11-01 00:00:00 [facility] 1.2840.114 350.1.13.10 4.2.7.2.686 [id number] [facility] 2020-10-30 22:11:00 2020-10-31 00:46:00 Emergency Lily Last [facility] 1.2.840.114 350.1.13.10 4.2.7.2.686 [id number] 2020-10-30 22:11:00 2020-10-31 00:46:00 Emergency Lily Last [facility] 1.2.840.114 350.1.13.10 4.2.7.2.686 [id number] [facility] 2020-10-26 18:33:25 2020-10-26 19:03:11 Urgent Care Aneta Aguayo [facility] 1.2.840.114 350.1.13.10 4.2.7.2.686 [id number] 370 [id number] 2020-10-26 18:33:25 2020-10-26 19:03:11 Urgent Care Aneta Aguayo Unknown, Attending [facility] 1.2840.114 350.1.13.10 4.2.7.2.686 [id number] [facility] 2020-10-26 19:00:00 2020-10-26 19:00:00 Outpatient R UNKNOWN, ATTENDING [facility] [id number] [facility] 2020-09-18 23:47:00 2020-09-19 01:47:00 Emergency Lydia Bojorquez [facility] 1.2840.114 350.1.13.10 4.2.7.2.686 [id number] 084 [id number] 2020-09-18 23:47:00 2020-09-19 01:47:00 Emergency Lydia Bojorquez [facility] 1.2.840.114 350.1.13.10 4.2.7.2.686 [id number] [id number] [facility] 2020-09-18 00:00:00 2020-09-18 00:00:00 Orders Only Doctor Unassigned, [place] [facility] 1.2.840.114 350.1.13.10 4.2.7.2.686 [id number] [id number] 2020-09-18 00:00:00 2020-09-18 00:00:00 Orders Only Doctor Unassigned, [place] [facility] 1.2.840.114 350.1.13.10 4.2.7.2.686 [id number] [id number] [facility] 2020-08-22 15:52:31 2020-08-22 16:12:31 Office Visit Madhavi [facility] 1.2.840.114 350.1.13.10 4.2.7.2.686 [id number] 2020-08-22 15:52:31 2020-08-22 16:12:31 Office Visit Madhavi [facility] 1.2.840.114 350.1.13.10 4.2.7.2.686 [id number] [facility] 2020-08-22 16:00:00 2020-08-22 16:00:00 Outpatient MADHAVI MCNAIR [facility] [id number] [facility] 2020-08-22 13:40:00 2020-08-22 13:40:00 Outpatient MADHAVI MCNAIR [facility] [id number] [facility] 2020-08-13 00:00:00 2020-08-13 00:00:00 Telephone [facility] 1.2.840.114 350.1.13.10 4.2.7.2.686 [id number] [facility] 2020-08-09 00:00:00 2020-08-09 00:00:00 Telephone [facility] 1.2.840.114 350.1.13.10 4.2.7.2.686 [id number] [facility] 2020-08-09 00:00:00 2020-08-09 00:00:00 Telephone [place] [facility] 1..114 350.1.13.10 4.2.7.2.686 [id number] [facility] 2020-08-08 14:46:51 2020-08-08 16:51:17 Office Visit [place] [facility] 1.0.114 350.1.13.10 4.2.7.2.686 [id number] [facility] 2020-08-08 15:00:00 2020-08-08 15:00:00 Outpatient LIBERTY TOMLINSON [facility] [id number] [facility] 2020-07-03 00:00:00 2020-07-03 00:00:00 Orders Only Doctor Unassigned, [place] [facility] 1.0.114 350.1.13.10 4.2.7.2.686 [id number] [id number] [facility] 2020-06-17 13:35:31 2020-06-17 14:15:17 Office Visit Antonia Swain [facility] 1..114 350.1.13.10 4.2.7.2.686 [id number] [facility] 2020-06-17 13:40:00 2020-06-17 13:40:00 Outpatient ELINA FORMAN [facility] [id number] [facility] 2020-05-18 00:00:00 2020-05-18 00:00:00 Kassidy Morris [facility] 1..114 350.1.13.10 4.2.7.2.686 [id number] 225 [id number] [facility] 2020-05-14 00:00:00 2020-05-14 00:00:00 Telephone Elina Rome [facility] 1.2.840.114 350.1.13.10 4.2.7.2.686 [id number] [facility] 2020-05-06 00:00:00 2020-05-06 00:00:00 Telephone Elina Rome [facility] 1.2840.114 350.1.13.10 4.2.7.2.686 [id number] 225 [id number] [facility] 2020-04-26 15:36:43 2020-04-26 15:56:43 Office Visit Kassidy Arenas [facility] 1..114 350.1.13.10 4.2.7.2.686 [id number] [facility] 2020-04-26 15:40:00 2020-04-26 15:40:00 Outpatient KASSIDY BOONE [facility] [id number] [facility] 2020-04-15 00:00:00 2020-04-15 00:00:00 Refill [place] [facility] 1..114 350.1.13.10 4.2.7.2.686 [id number] [facility] 2020-01-03 14:40:00 2020-01-03 14:40:00 Outpatient REJI EVANS [facility] [id number] [facility] 2019-10-27 00:00:00 2019-10-27 00:00:00 Telephone Aiden [facility]oney [facility] 1..114 350.1.13.10 4.2.7.2.686 [id number] [facility] 2019-10-18 23:49:28 2019-10-19 02:20:00 Emergency X SOSA ADAMES [facility] ERT [id number] [facility] 2019-10-18 23:49:28 2019-10-19 02:20:00 Emergency Sosa Adames [facility] 1.2.840.114 350.1.13.10 4.2.7.2.686 [id number] [facility] 2019-10-18 00:00:00 2019-10-18 00:00:00 Nurse Triage Sandra Henderson [facility] 1.2.840.114 350.1.13.10 4.2.7.2.686 [id number] [facility] 2019-10-09 00:00:00 2019-10-09 00:00:00 Telephone Aiden Cooney [facility] 1.2.840.114 350.1.13.10 4.2.7.2.686 [id number] [facility] 2019-09-21 13:27:07 2019-09-21 17:09:32 Office Visit [place] [facility] 1.2.840.114 350.1.13.10 4.2.7.2.686 [id number] [facility] 2019-09-21 13:40:00 2019-09-21 13:40:00 Outpatient R [place] [facility] [id number] [facility] 2019-08-30 15:01:37 2019-08-30 15:11:37 Office Visit Antonia Pike [facility] 1.2.840.114 350.1.13.10 4.2.7.2.686 [id number] [facility] 2019-08-22 15:33:37 2019-08-22 15:43:37 Office Visit Aiden Cooney [facility] 1.2.840.114 350.1.13.10 4.2.7.2.686 [id number] [facility] 2019-08-21 09:14:31 2019-08-21 10:35:00 Emergency Ashley Avendano [facility] 1.2.840.114 350.1.13.10 4.2.7.2.686 [id number] [id number] [facility] 2019-08-10 11:01:47 2019-08-10 11:21:47 Nurse Visit NurseOsvaldo Maria P Alvin [facility] 1.2.840.114 350.1.13.10 4.2.7.2.686 [id number] [facility] 2019-08-09 09:22:22 2019-08-09 12:41:52 Office Visit Antonia Pike [facility] 1.2.840.114 350.1.13.10 4.2.7.2.686 [id number] [facility] 2019-08-09 00:00:00 2019-08-09 00:00:00 Orders Only Antonia Pike [facility] 1.2.840.114 350.1.13.10 4.2.7.2.686 [id number] [facility] 2019-07-28 00:00:00 2019-07-28 00:00:00 Orders Only Doctor Unassigned, [place] [facility] 1.2.840.114 350.1.13.10 4.2.7.2.686 [id number] [facility] 2019-03-30 12:55:51 2019-03-30 13:15:51 Office Visit Kassidy Arenas [facility] 1.2.840.114 350.1.13.10 4.2.7.2.686 [id number] [facility] 2019-03-29 00:00:00 2019-03-29 00:00:00 Telephone Elina Rome [facility] 1.2.840.114 350.1.13.10 4.2.7.2.686 [id number] 225 [id number] [facility] 2019-03-27 09:41:28 2019-03-27 09:51:28 Office Visit Aiden Cooneyin [facility] 1.2.840.114 350.1.13.10 4.2.7.2.686 [id number] [facility] 2019-03-22 15:41:22 2019-03-22 23:59:00 Hospital Encounter Aiden Cooney [facility] 1.2.840.114 350.1.13.10 4.2.7.2.686 [id number] [facility] 2019-03-21 15:31:39 2019-03-22 09:26:38 Office Visit Mike Heardmi Aiden Conde [facility] 1.2.840.114 350.1.13.10 4.2.7.2.686 [id number] [facility] 2019-03-08 09:03:07 2019-03-08 09:13:07 Office Visit Aiden Cooneyin [facility] 1.2.840.114 350.1.13.10 4.2.7.2.686 [id number] 225 [id number] [facility] 2019-03-03 10:38:58 2019-03-03 11:09:50 Office Visit Aiden Cooneyin [facility] 1.2.840.114 350.1.13.10 4.2.7.2.686 [id number] [facility] 2019-02-10 15:44:39 2019-02-10 23:59:00 Hospital Encounter Sujata Carter [facility] 1.2.840.114 350.1.13.10 4.2.7.2.686 [id number] [facility] 2019-02-10 08:00:00 2019-02-10 15:43:00 Hospital Encounter Vonnie [facility] 1.2.840.114 350.1.13.10 4.2.7.2.686 [id number] [facility] Results Test Description Test Time Test Comments Results Result Co mments Source [facility] WITH [id number] 11:43:20* Test Item Value Reference Range Interpretation [...] 32.0 g/dL 31.6-35.1 RDW-SD (test code = 00676-7) 47.8 fL 39.0-49.9 RDW-CV (test code = 788-0) 14.8 % 12.0-15.5 PLT (test code = 777-3) 282 See_Comment [Automated messa ge] The system which generated this result transmitted reference range: 166 - 358 10*3/?L. The reference range was not used to interpret this result as normal/abnormal. MPV (test code = 18223-9) 10.6 fL 9.5-12.9 NRBC/100 WBC (test code = 2072993752) 0.0 See_Comment [Automated me ssage] The system which generated this result transmitted reference range: 0.0 - 10.0 /100 WBCs. The reference range was not used to interpret this result as normal/abnormal. NRBC x10^3 (test code = 8240374432) See_Comment [Automated messa ge] The system which generated this result transmitted reference range: 10*3/?L. The reference range was not used to interpret this result as normal/abnormal. GRAN MAT (NEUT) % (test code = 770-8) 51.7 % IMM GRAN % (test code = 0266644847) 0.20 % LYMPH % (test code = 736-9) 40.7 % MONO % (test code = 5905-5) 6.6 % EOS % (test code = 713-8) 0.4 % BASO % (test code = 706-2) 0.4 % GRAN MAT x10^3(ANC) (test code = 3415022741) 4.76 10*3/uL 1.88-7.09 IMM GRAN x10^3 (test code = 1235822895) 0.00-0.06 LYMPH x10^3 (test code = 731-0) 3.76 10*3/uL 1.32-3.29 H MONO x10^3 (test code = 742-7) 0.61 10*3/uL 0.33-0.92 EOS x10^3 (test code = 711-2) 0.04 10*3/uL 0.03-0.39 BASO x10^3 (test code = 704-7) 0.04 10*3/uL 0.01-0.07 Lab Interpretation (test code = 54413-5) Abnormal [facility] [id number] 15:31:00* Test Item Value Reference Range Interpretation Comme nts POCT PREG (test code = 1605) Negative On board controls acceptable with C Line (test code = 3574) Yes POCT PREG LOT # (test code = 3575) POCT PREG TEST DATE ( test code = 3576) [id number] 15:31:00* Test Item Value Reference Range Interpretation Comme nts POCT PREG (test code = 1605) Negative On board controls acceptable with C Line (test code = 3574) Yes POCT PREG LOT # (test code = 3575) POCT PREG TEST DATE ( test code = 3576) [facility] [id number] 11:21:25* Test Item Value Reference Range Interpretation Comme nts MAGNESIUM (test code = 7031234926) 2.2 mg/dL 1.7-2.4 Lab Interpretation (test cod e = 73584-5) Normal [facility] [id number] 11:21:25* Test Item Value Reference Range Interpretation Comme nts MAGNESIUM (test code = 1211699157) 2.2 mg/dL 1.7-2.4 Lab Interpretation (test cod e = 96604-9) Normal [facility] METABOLIC PANEL (NA, K, CL, CO2, GLUCOSE, BUN, CREATININE, CA)2023-05-02 11:21:05* Test Item Value Reference Range Interpretation Comme nts NA (test code = 7918856664) 138 mmol/L 135-145 K (test code = 8473116099) 3.8 mmol/L 3.5-5.0 CL (test code = 0616067504) 102 mmol/L 98-108 CO2 TOTAL (test code = 2947833439) 22 mmol/L 23-31 L AGAP (test code = 2535099912) 14 2-16 BUN (test code = 8216517282) 21 mg/dL 7-23 GLUCOSE (test code = 8014889778) 88 mg/dL 70-110 CREATININE (test code = 9942781281) 0.65 mg/dL 0.50-1.04 CALCIUM (test code = 5755028625) 9.3 mg/dL 8.6-10.6 eGFR (test code = 3701921037) 116.2 mL/min/1.73m2 RADHA (test code = RADHA) [...] imaging tests). Lab Interpretation (test code = 62027-8) [facility]normal [facility] (ALB,T.PRO,BILI T,BU/BC,ALT,AST,ALK PHOS)2023-05-02 11:21:05* Test Item Value Reference Range Interpretation Comme nts TOTAL BILI (test code = 2310706432) 0.3 mg/dL 0.1-1.1 BILI UNCON (test code = 9972317604) 0.2 mg/dL 0.1-1.1 BILI CONJ (test code = 2019940057) 0.0 mg/dL 0.0-0.3 T PROTEIN (test code = 8163242991) 7.6 g/dL 6.3-8.2 ALBUMIN (test code = 4855964431) 4.4 g/dL 3.5-5.0 ALK PHOS (test code = 7128533358) 72 U/L 34-122 ALTv (test code = 1742-6) 13 U/L 5-35 AST(SGOT) (test code = 1662701618) 17 U/L 13-40 Lab Interpretation (test cod e = 24930-8) Normal [facility] METABOLIC PANEL (NA, K, CL, CO2, GLUCOSE, BUN, CREATININE, CA)2023-05-02 11:21:05* Test Item Value Reference Range Interpretation Comme nts NA (test code = 1341101652) 138 mmol/L 135-145 K (test code = 1999835865) 3.8 mmol/L 3.5-5.0 CL (test code = 1090982899) 102 mmol/L 98-108 CO2 TOTAL (test code = 9321008024) 22 mmol/L 23-31 L AGAP (test code = 0970862388) 14 2-16 BUN (test code = 8899382349) 21 mg/dL 7-23 GLUCOSE (test code = 9488351210) 88 mg/dL 70-110 CREATININE (test code = 2231773595) 0.65 mg/dL 0.50-1.04 CALCIUM (test code = 3693401774) 9.3 mg/dL 8.6-10.6 eGFR (test code = 2560416955) 116.2 mL/min/1.73m2 RADHA (test code = RADHA) [...] imaging tests). Lab Interpretation (test code = 36953-8) Abnormal [facility]76372[facility] (ALB,T.PRO,BILI T,BU/BC,ALT,AST,ALK PHOS)2023-05-02 11:21:05* Test Item Value Reference Range Interpretation Comme nts TOTAL BILI (test code = 0691802904) 0.3 mg/dL 0.1-1.1 BILI UNCON (test code = 8455181735) 0.2 mg/dL 0.1-1.1 BILI CONJ (test code = 8729272799) 0.0 mg/dL 0.0-0.3 T PROTEIN (test code = 2851215785) 7.6 g/dL 6.3-8.2 ALBUMIN (test code = 0719099732) 4.4 g/dL 3.5-5.0 ALK PHOS (test code = 4688991106) 72 U/L 34-122 ALTv (test code = 1742-6) 13 U/L 5-35 AST(SGOT) (test code = 2272452833) 17 U/L 13-40 Lab Interpretation (test cod e = 07952-5) Normal [facility] with Yajghtwhloov8347-03-05 10:46:23* Test Item Value Reference Range Interpretation Comme nts WBC (test code = 6690-2) 7.54 See_Comment [Automated [employer]] The system which generated this result transmitted reference range: 4.30 - 11.10 10*3/?L. The reference range was not used to interpret this result as normal/abnormal. RBC (test code = 789-8) 4.05 See_Comment [Automated [employer]] The system which generated this result transmitted [...] 32.3 g/dL 31.6-35.1 RDW-SD (test code = 50949-6) 46.6 fL 39.0-49.9 RDW-CV (test code = 788-0) 14.7 % 12.0-15.5 PLT (test code = 777-3) 283 See_Comment [Automated messa ge] The system which generated this result transmitted reference range: 166 - 358 10*3/?L. The reference range was not used to interpret this result as normal/abnormal. MPV (test code = 80889-5) 10.5 fL 9.5-12.9 NRBC/100 WBC (test code = 8152495185) 0.0 See_Comment [Automated [employer] ssage] The system which generated this result transmitted reference range: 0.0 - 10.0 /100 WBCs. The reference range was not used to interpret this result as normal/abnormal. NRBC x10^3 (test code = 3923971937) See_Comment [Automated [employer] ge] The system which generated this result transmitted reference range: 10*3/?L. The reference range was not used to interpret this result as normal/abnormal. GRAN MAT (NEUT) % (test code = 770-8) 40.7 % IMM GRAN % (test code = 8701242333) 0.10 % LYMPH % (test code = 736-9) 48.4 % MONO % (test code = 5905-5) 8.8 % EOS % (test code = 713-8) 1.3 % BASO % (test code = 706-2) 0.7 % GRAN MAT x10^3(ANC) (test code = 0321299673) 3.07 10*3/uL 1.88-7.09 IMM GRAN x10^3 (test code = 2995806076) 0.00-0.06 LYMPH x10^3 (test code = 731-0) 3.65 10*3/uL 1.32-3.29 H MONO x10^3 (test code = 742-7) 0.66 10*3/uL 0.33-0.92 EOS x10^3 (test code = 711-2) 0.10 10*3/uL 0.03-0.39 BASO x10^3 (test code = 704-7) 0.05 10*3/uL 0.01-0.07 Lab Interpretation (test code = 38314-3) Abnormal [facility] with [id number] 10:46:23* Test Item Value Reference Range Interpretation Comme nts WBC (test code = 6690-2) 7.54 See_Comment [Automated [employer] ge] The system which generated this result [...] 32.3 g/dL 31.6-35.1 RDW-SD (test code = 19985-5) 46.6 fL 39.0-49.9 RDW-CV (test code = 788-0) 14.7 % 12.0-15.5 PLT (test code = 777-3) 283 See_Comment [Automated [employer] ge] The system which generated this result transmitted reference range: 166 - 358 10*3/?L. The reference range was not used to interpret this result as normal/abnormal. MPV (test code = 83602-9) 10.5 fL 9.5-12.9 NRBC/100 WBC (test code = 7394125306) 0.0 See_Comment [Automated me ssage] The system which generated this result transmitted reference range: 0.0 - 10.0 /100 WBCs. The reference range was not used to interpret this result as normal/abnormal. NRBC x10^3 (test code = 5281066308) See_Comment [Automated messa ge] The system which generated this result transmitted reference range: 10*3/?L. The reference range was not used to interpret this result as normal/abnormal. GRAN MAT (NEUT) % (test code = 770-8) 40.7 % IMM GRAN % (test code = 1039014279) 0.10 % LYMPH % (test code = 736-9) 48.4 % MONO % (test code = 5905-5) 8.8 % EOS % (test code = 713-8) 1.3 % BASO % (test code = 706-2) 0.7 % GRAN MAT x10^3(ANC) (test code = 2817215332) 3.07 10*3/uL 1.88-7.09 IMM GRAN x10^3 (test code = 7643506405) 0.00-0.06 LYMPH x10^3 (test code = 731-0) 3.65 10*3/uL 1.32-3.29 H MONO x10^3 (test code = 742-7) 0.66 10*3/uL 0.33-0.92 EOS x10^3 (test code = 711-2) 0.10 10*3/uL 0.03-0.39 BASO x10^3 (test code = 704-7) 0.05 10*3/uL 0.01-0.07 Lab Interpretation (test code = 35438-7) [facility]08:[facility]* Test Item Value Reference Range Interpretation Comme nts SURGICAL (test code = SR) R UN DATE: 11/03/22 [place] - LAB PAGE 1 RUN TIME: 1409 Specimen Inquiry RUN USER: INTERFACE P ATIENT: LUIS EDMONDS LOC: JORDI U #: [id number] AGE/SX: 21/F ROOM: [facility] RE10/30/22REG DR: Luis Burciaga MD : 02 BED: 1 DIS: 11/02/22 STATUS: DIS IN TLOC: SPEC #: [id number] RECD: 11/02/22 STATUS: GLENN REQ #: [id number] SLOAN: 10/31/22- SUBM DR: Luis Burciaga MD ENTERED: 11/02/22 SP TYPE: SURGICAL OTHR DR: ORDERED: 83402, ANATOMIC SPEC PROCEDURES: 41070 (11/02/22) TISSUES: A. PLACENTA, THIRD TRIMESTER (28 + WEEKS) CLINICAL HISTORY SAME, DELIVERED FINAL DIAGNOSIS Placenta: Third trimester placenta with acute chorionitis, deciduitis; 713 g (expected flxr457 g); trivascular umbilical cord without significant inflammation.. [...] weighs 713 g. Technical component performed at [facility],[address] [place] [address], [place] [address] Unless gross only, the diagnosis is based [...] INFORMATION 37.1 IUP Signed SIGNATURE ON FILE Maria Eugenia Emmanuelserg 11/03/22 1208 END OF REPORT CBC W/AUTO [id number] 07:54:00* Test Item Value Reference Range Interpretation [...] c ode = MDIFF) NO RAPID PLASMA [id number] 11:50:00* Test Item Value Reference Range Interpretation Comme nts RAPID PLASMA REAGIN (test co de = RPR) NONREACTIVE NONREACTIVE AG HEPATITIS B [id number] 11:50:00* Test Item Value Reference Range Interpretation Comme nts AG HEPATITIS B SURFACE (test code = HBSAG) NON REACTIVE INDEX NonReactive AB HIV 1 11:50:00* Test Item Value Reference Range Interpretation Comme nts AB HIV 1 2 (test code = QGT08NO) Nonreactive Nonreactive CBC W/AUTO [id number] 19:59:00* Test Item Value Reference Range Interpretation [...] c ode = MDIFF) NO AMNISURE (ROM) [id number] 18:12:00* Test Item Value Reference Range Interpretation Comme nts AMNISURE (ROM) TEST (test co de = AMNI) POSITIVE NEGATIVE A AMNISURE (ROM) [id number] 21:41:00* Test Item Value Reference Range Interpretation Comme nts AMNISURE (ROM) TEST (test co de = AMNI) NEGATIVE NEGATIVE [id number] 20:11:00* Test Item Value Reference Range Interpretation Comme nts FIBRONECTIN (test code = FFN) POSITIVE NEGATIVE A UA RFLX MICR CULT IF [id number] 20:11:00* Test Item Value Reference Range Interpretation [...] PainSpecimen Description: CLEAN CATCHDRUGS OF ABUSE SCREEN [id number] 20:10:00* Test Item Value Reference Range Interpretation [...] shouldnot be used for non-medical purposes. - BIOPHYS [id number] 00:00:00 [facility] BI ED[facility] : 2000 Sex: F Name: BI EDMONDS [facility] [place] : 2000 Age/S: 21 / F [address] [place] [address] Blvd Unit #: [id number] Loc: [place] [address] Phys: GomezZoila Kyra Acct: [id number] Dis Date: Status: REG ER PHONE #: [phone] Exam Date: 09/26/20222004 FAX #: [phone] Reason: decreased FM EXAMS: CPTCODE: [id number] US BIOPHYS PROF 30554 PROCEDURE INFORMATION: Exam: US Biophysical Profile Without Non-Stress Test Exam date and time: 09/26/2022 7:49 PM Age: 21 years old Clinical indication: Pain indication: Abdominal pain; ; Additional info: Decreased fm TECHNIQUE: Imaging protocol: US biophysical profile without non-stress testing. COMPARISON: US FET BIO PH KS W/O NST 09/07/2022 11:03 PM A limited [...] S/D ratio was 2.8. IMPRESSION: 1. Single livingintrauterine in cephalic position. 2. biophysical profile score of 8/8. SL: 131. at 4 Reported and signed by: Malcolm Wilson M.D. CC: Zoila Gomez DO Technologist: Josefina Fitch Trnscb Date/Time: 09/26/2022 (2113) Karoline Orig Print D/T: S: 09/26/2022 (2113) Probe: PAGE 1 Signed Report- US PREG AFTER [id number] 00:00:00 [facility] 2000 Sex: F Name: BI EDMONDS [facility] : 2000 Age/S: 21 / F [address] [place] [address] Unit #: [id number] Loc: [place] [address] Phys: Zoila Gomez DO Acct: [id number] Dis Date: Status: REG ER PHONE #: [phone] Exam Date: 09/26/20222004 FAX #: [phone] Reason: PTL EXAMS: CPT CODE: [id number] US PREG AFTER TRI 41782 PROCEDURE INFORMATION: Exam: US After First Trimester, Transabdominal Exam date and time: 09/26/2022 7:49 PM Age: 21 years old Clinical indication: complicated by abdominal or pelvic pain; Periumbilical; Third trimester (=28 weeks 0 days); Gestational age or lmp: 32w; ; Additional info: Ptl TECHNIQUE: Imaging protocol: Real-time transa bdominal obstetrical ultrasound of the maternal pelvis and [...] 1 Signed Report (CONTINUED) Name: BI EDMONDS [facility] [place] : 2000 Age/S: 21 / F [address] [place] [address] Unit #: [id number] Loc: [place] [address] Phys: Zoila Gomez DO Acct: [id number] Dis Date: Status: REG ER PHONE #: [phone] ExamDate: 09/26/20222004 FAX #: [phone] Reason: PTL EXAMS: CPT CODE: [id number] US PREG AFTER 1STTRI 56432 (Continued) movement: 2. breathin Amniotic fluid: 2 Total score 8/8 IMPRE SSION: 1. Single viable intrauterine gestation in cephalic presentation. 2. Normal growth concordant with dates. 3. Normal biophysical profile. Electronically Signed by Valeria Garcia 09/26/2022 at 2117 Reported and signed by: Jeromy Wolfe M.D. CC: Zoila Gomez DO Technologist: Josefina Fitch Trnscb Date/Time: 09/26/2022 (2116) [email or web address] Orig Print D/T: S: 09/26/2022 (2116) Probe: PAGE 2 Signed ReportAMNISURE (ROM) [id number] 14:39:00* Test Item Value Reference Range Interpretation Comme nts AMNISURE (ROM) TEST (test co de = AMNI) NEGATIVE NEGATIVE CHLAMYDIA GC DNA BY [id number] 13:07:00* Test Item Value Reference Range Interpretation Comme nts C. TRACHOMATIS DNA BY PCR (test code = CHLAMTDNA) Negative Negative N. GONORRHOEAE DNA BY PCR (test code = NGONORDNA) Negative Negative Performed At: [facility] [address] [id number] Marc Rosales MD Ph:[phone] UA RFLX MICR CULT IF [id number] 21:16:00* Test Item Value Reference Range Interpretation [...] culture: Suprapubic PainSpecimen Description: CLEAN CATCHRAPID PLASMA [id number] 11:04:00* Test Item Value Reference Range Interpretation Comme nts RAPID PLASMA REAGIN (test co de = RPR) NONREACTIVE NONREACTIVE AG HEPATITIS B [id number] 11:04:00* Test Item Value Reference Range Interpretation Comme nts AG HEPATITIS B SURFACE (test code = HBSAG) NON REACTIVE INDEX NonReactive AB HIV 1 11:04:00* Test Item Value Reference Range Interpretation Comme nts AB HIV 1 2 (test code = QMR29TI) Nonreactive Nonreactive [id number] 08:05:00* Test Item Value Reference Range Interpretation Comme nts MAGNESIUM (test code = MAG) 4.22 mg/dL 1.80-2.40 HH CBC W/AUTO [id number] 00:08:00* Test Item Value Reference Range Interpretation [...] c ode = MDIFF) NO - US FET BIO PH KS W/O [id number] 00:00:00 [facility] 2000 Sex: F Name: LUIS EDMONDS [facility] : 2000 Age/S: 21 / F [address] [place] [address] Unit #: [id number] Loc: [place] [address] Phys: Juany Carrillo MD Acct: [id number] Dis Date: Status: ADMIN PHONE #: [phone] Exam Date: 09/07/20222315 FAX #: [phone] Reason: IUP@29 wks; Leakingfluid; ROM plus positive EXAMS: CPT CODE: [id number] US FET BIO PH KS W/O NST 91930 PROCEDURE INFORMATION: Exam: US , Limited Exam date and time: 09/07/2022 11:03 PM Age: 21 years old Clinical indication: Other: Rom; Lmp or gestational age (in weeks): 29; Antepartum complications; Prematurerupture of membranes; ; Additional info: Iup@29 wks; [...] of 152 bpm. The placenta is anteriorly positionedand demonstrates grade 1 echotexture. There is no evidence of placenta previa or retroplacental hemorrhage. Amniotic fluid volume appears within normal limits with a measured ISMA of 11 cm. The cervixwas not well visualized. The fetus meets the [...] 1 Signed Report (CONTINUED) Name: LUIS EDMONDS [facility] : 2000 Age/S: 21 / F [address] [place] [address] Unit #: [id number] Loc: [place] [address] Phys: Juany Carrillo MD Acct: [id number] Dis Date: Status: ADM IN PHONE #: [phone] Exam Date: 09/07/20222315 FAX #: [phone] Reason: IUP@29 wks; Leaking fluid; ROM plus positive EXAMS: CPT CODE: [id number] US FET BIO PH KS W/O NST 64288(Continued) A limited transabdominal obstetrical ultrasound was performed [...] normal limits with a measured ISMA of 11cm. The cervix was not well visualized. The [...] Victoria Tripathi RDMS(AB)(OB) Trnscb Date/Time: 09/08/2022 (1) tVERONIQUEM Orig Print D/T: S: 09/08/2022 (0002) Probe: PAGE 2 Signed Report- US [id number] 00:00:00 [facility] 2000 Sex: F Name: LUIS EDMONDS [facility] : 2000 Age/S: 21 / F [address] [place] [address] Bl Unit #: [id number] Loc: [place] [address] Phys: Juany Carrillo MD Acct: [id number] Dis Date: Status: ADMIN PHONE #: [phone] Exam Date: 09/07/20225 FAX #: [phone] Reason: see US FET BIO PH KS W/O NST EXAMS: CPT CODE: [id number] US LTD 78265 PROCEDURE INFORMATION: Exam: US , Limited Exam date and time: 09/07/2022 11:03 PM Age: 21 years old Clinical indication: Other: Rom;Lmp or gestational age (in weeks): 29; Antepartum [...] The placenta is anteriorly positioned and demonstrates grade1 echotexture. There is no evidence of placenta previa or retroplacental hemorrhage. Amniotic fluidvolume appears within normal limits with a measured [...] Non-Stress Test Exam date and time: 09/07/2022 11:03PM Age: 21 years old Clinical indication: Other: Rom; Lmp or gestational age (in weeks): 29; Antepartum complications; Premature rupture of membranes; ; Additional info: Iup@29 wks; Leaking fluid; Rom plus positive TECHNIQUE: Imaging protocol: US biophysical profile without non-stress testing. COMPARISON: US BIOPHYS PROF 03/12/2021 11:26 PM PAGE 1 Signed Report (CONTINUED) Name: LUIS EDMONDS [facility] : 2000 Age/S: 21 / F [address] [place] [address] Unit #: [id number] Loc: [place] [address] Phys: Juany Carrillo MD Acct: [id number] Dis Date: Status: ADM IN PHONE #: [phone] Exam Date: 09/07/20225 FAX #: [phone] Reason: see US FET BIO PH KS W/O NST EXAMS: CPT CODE: [id number] US LTD 17782 (Continued) A limited transabdominal obstetrical ultrasound was [...] Victoria Tripathi RDMS(AB)(OB) Trnscb Date/Time: 09/08/2022 (1) tDUKE Orig Print D/T: S: 09/08/2022 (0002) Probe: PAGE 2 Signed ReportAMNISURE (ROM) [id number] 22:26:00* Test Item Value Reference Range Interpretation Comme nts AMNISURE (ROM) TEST (test co de = AMNI) POSITIVE NEGATIVE A UA RFLX MICR CULT IF [id number] 22:12:00* Test Item Value Reference Range Interpretation [...] for culture: Suprapubic PainSpecimen Description: CLEAN CATCHFETAL [id number] 16:47:00* Test Item Value Reference Range Interpretation Comme nts FIBRONECTIN (test code = FFN) NEGATIVE NEGATIVE URINALYSIS [id number] 16:34:00* Test Item Value Reference Range Interpretation [...] SEEN - XR ANKLE 3 + V [id number] 00:00:00 [facility]MER [facility] : 2000 Sex: FFAX: Emily Mckoy MD [phone] [place]: MD St: PRE FAX: Romeo Chavez Name: LUIS EDMONDS [facility] : 2000 Age/S: 21/F [address] [facility] Unit #: [id number] Loc: [place] [address] Phys: Ghanshyam Chavez MD Acct: [id number] Dis Date: Status: PRE ER PHONE #: Exam Date: 03/06/2022 1600 FAX #: Reason: R ANKLE PAIN AFTER FALL EXAMS: CPT CODE: [id number] XR ANKLE 3 + V RT [id number] INFORMATION: Exam: XR Right Ankle Exam date [...] normal. The distal tibia-fibular alignment is unremarkable. Thereis no ankle joint effusion. Soft tissues: There is no soft tissue swelling. There are no radiopaqueforeign bodies. Notes: If there is further concern, recommend follow- up radiographs or MRI for complete assessment. IMPRESSION: No fracture or dislocation Electronically Signed by Valeria Luque 03/06/2022 at 1604 Reported and signed by: Emeka Pickering M.D. CC: Emily Artis MD; Ghanshyam Chavez MD Technologist: RT Valerie(R)(CT) Trnscrd Date/Time/By: 03/06/2022 (3571) : By: Kristian Orig Print D/T: S: 03/06/2022 (2928) PAGE 1 Signed Report- XR FOOT 3 + V [id number] 00:00:00 [facility] : 2000 Sex: F FAX: Emily Mckoy MD [phone] [place]: MD St: PRE FAX: Romeo Chavez Name: LUIS EDMONDS [facility] : 2000 Age/S: 21/F [address] [facility] Unit #: [id number] Loc: [place] [address] Phys:Ghanshyam Chavez MD Acct: [id number] Dis Date: Status: PRE ER PHONE #: Exam Date: 03/06/2022 2406 FAX #: Reason: r foot injury EXAMS: CPT CODE: [id number] XR FOOT 3 + V RT 83750 PROCEDURE INFORMATION: Exam: XR Right Foot Exam date and time: 03/06/2022 3:35 PM Age: 21 years old Clinical indication: Pain; Foot; Right; Additional info: R foot injury TECHNIQUE: Imaging protocol: Radiologic exam of the Right foot. Views: 3 or more views. AP Oblique Lateral COMPARISON: CR XR TIBIA/FIBULA 2 VRT 06/01/2015 10:54 PM FINDINGS: Bones/joints: There is normal alignment without fractures or dislocations. The joints appear unremarkable. Soft tissues: There are no radiopaque foreign bodies. Thereis no soft tissue gas or osseous erosive changes noted. Notes: If there is further concern, recommend follow-up radiographs or MRI for complete assessment. IMPRESSION: No fractures or dislocation at 1604 Reported and signed by: Emeka Pickering M.D. CC: Emily Artis MD; Ghanshyam Chavez MD Technologist: RT Valerie(R)(CT) Trnscrd Date/Time/By: 03/06/2022 (8786) : By: Kristian Orig Print D/T: S: 03/06/2022 (9928) PAGE 1 Signed ReportURINE HCG TRIAGE (ER ONLY)2021-11-11 08:40:00* Test Item Value Reference Range Interpretation Comme nts URINE HCG TRIAGE (ER ONLY) ( test code = HCGTRIAGE) NEGATIVE Negative Urine Test Result: NEGATIVEAre internal controls (presence of a control line & clear background) OK? YLot # of HCG Test Kit: [id number] Date of Kit: 02/15/23Test Performed by:Carlo Perfomed on: 11/11/21COMMENTS: NEGATIVEUA DIPSTICK [id number] 00:46:00* Test Item Value Reference Range Interpretation Comme nts UA GLUCOSE DIPSTIC POC (test code = GLUUP) NEGATIVE NEGATIVE UA BILIRUBIN DIPSTICK (test code = BILU) NEGATIVE NEGATIVE UA KETONE DIPSTICK POC (test code = KETUP) NEGATIVE NEGATIVE UA SPECIFIC GRAVITY (test code = SGU) 1.010 1.005-1.030 N UA BLOOD DIPSTIC POC (test code = BLUP) NEGATIVE NEGATIVE Performed by certified spreading machine operator at [facility] UA PH DIPSTIC POC (test code = PHUP) 7 5.0-7.0 N UA PROTEIN DIPSTICK POC (test code = DPROUP) NEGATIVE NEGATIVE UA UROBILINIOGEN QUAL (test code = UROQL) NORMAL 0.2-1.0 UA NITRITE DIPSTICK POC (test code = NITUP) NEGATIVE Negative UA LEUKOCYTE ESTERASE W REFLEX (test code = LEUUR) Negative NEGATIVE SURGICAL PATH [id number] 13:13:00* Test Item Value Reference Range Interpretation Comme nts SURGICAL PATH SPECIMENS (test code = S) RUN DATE: 03/28/21 [place] - LAB PAGE 1 RUN TIME: 1313 Specimen Inquiry RUN USER: INTERFACE ARTEMIO ENT: LUIS EDMONDS LOC: [place] U #: [id number] AGE/SX: 20/F ROOM: [facility] RE03/25/21REG DR: Luis Burciaga MD : [birth year] BED: 1 DIS: STATUS: ADM IN TLOC: SPEC #: [id number] RECD: 03/27/21 STATUS: GLENN EVERETT #: [id number] SLOAN: 03/26/21- SUBM DR: Luis Burciaga MD ENTERED: 03/27/21 SP TYPE: SURG SPEC OTHR DR: ORDERED: GM LEVEL 5 CODES: [id number] - PLACENTA, NOS PROCEDURES: GM LEVEL 5 [...] 03/28/21 1313 END OF REPORT CBC W/AUTO [id number] 07:03:00* Test Item Value Reference Range Interpretation [...] ode = MDIFF) NO CORD VENOUS BLOOD [id number] 18:41:00* Test Item Value Reference Range Interpretation Comme [facility] CORD VENOUS PH (test code = PHCV) [...] = O2SCV) 17 % CORD ARTERIAL BLOOD [id number] 18:40:00* Test Item Value Reference Range Interpretation Comme [facility] CORD BLOOD PH (test code = PH/C) [...] O2S/C) 25 % 72-77 L RAPID PLASMA [id number] 10:40:00* Test Item Value Reference Range Interpretation Comme [facility] RAPID PLASMA REAGIN (test co de = RPR) NONREACTIVE NONREACTIVE AG HEPATITIS B [id number] 10:40:00* Test Item Value Reference Range Interpretation Comme nts AG HEPATITIS B SURFACE (test code = HBSAG) NON REACTIVE INDEX NonReactive AB HIV 1 10:40:00* Test Item Value Reference Range Interpretation Comme nts AB HIV 1 2 (test code = XXU53MO) Nonreactive Nonreactive COVID 19 Asymptomatic IH [id number] 20:20:00* Test Item Value Reference Range Interpretation [...] perform moderate, high or waivedcomplexity tests. URINALYSIS [id number] 18:48:00* Test Item Value Reference Range Interpretation [...] MUCU) TRACE /LPF NONE SEEN RAPID PLASMA [id number] 18:11:00* Test Item Value Reference Range Interpretation Comme nts RAPID PLASMA REAGIN (test code = RPR) NONREACTI VE AG HEPATITIS B [id number] 18:11:00* Test Item Value Reference Range Interpretation Comme nts AG HEPATITIS B SURFACE (test code = HBSAG) NON REACTIVE INDEX NonReactive AB HIV 1 18:11:00* Test Item Value Reference Range Interpretation Comme nts AB HIV 1 2 (test code = SPS18UE) Nonreactive Nonreactive COMPREHENSIVE METABOLIC [id number] 17:45:00* Test Item Value Reference Range Interpretation [...] = ALKP) 153 IUnit/L 60-350 N URIC [id number] 17:45:00* Test Item Value Reference Range Interpretation Comme nts URIC ACID (test code = URIC) 4.0 mg/dL 2.6-7.2 N LACTIC DEHYDROGENASE(LDH)2021-03-25 17:45:00* Test Item Value Reference Range Interpretation Comme nts LACTIC DEHYDROGENASE(LDH) (t est code = LDH) 225 IUnits/L 84-246 N CBC W/AUTO [id number] 17:24:00* Test Item Value Reference Range Interpretation [...] (test c ode = MDIFF) CBC W/AUTO [id number] 17:24:00* Test Item Value Reference Range Interpretation [...] c ode = CAT) NO - US BIOPHYS [id number] 00:00:00 [facility] : 2000 Sex: F Name: LUIS EDMONDS [facility] [place] : 2000 Age/S: 20 / F [address] [place] [address] Bl Unit #: [id number] Loc: [place] [address] Phys: Effie Solitario MD Acct: [id number] Dis Date: Status: REG ER PHONE #: [phone] Exam Date: 03/12/2021 0042 FAX #: [phone] Reason: Possible SROM, please evaluate ISMA EXAMS: CPT CODE: [id number] US BIOPHYS PROF 07451 PROCEDURE INFORMATION: E xam: US Biophysical Profile With Non-Stress Test Exam date and time: 03/12/2021 11:26 PM Age: 20 years old Clinical indication: Other: Srom; ; Additional info: Possible srom, please evaluate isma TECHNIQUE: Imaging protocol: biophysical profile with non-stress test. COMPARISON: USFETAL BIOPHYS PROF 03/01/2021 7:32 AM FINDINGS: EGA: 35 weeks, 4 days. Presentation: Cephalic. heart rate: 134 bpm Placenta location: The placenta is anterior, non-previa without signs of retroplacental hemorrhage. Grade: 3 S/D ratio: 1.8 ISMA: 8.2 cm breathing movements: 2 Gross body movements: 2 tone: 2 Amniotic fluid volume: 2 IMPRESSION: Biophysical profile score of 8 out of8. at 0057 Reported and signed by: Reinaldo Will M.D. CC: Technologist: Yuki Ray RDMS()(OB) Trnscb Date/Time: 03/13/2021 (56) Sabine Orig Print D/T: S: 03/13/2021 (56) Probe: PAGE 1 Signed ReportAMNISURE (ROM) TEST 2021-03-12 22:05:00* Test Item Value Reference Range Interpretation Comme nts AMNISURE (ROM) TEST (test co de = AMNI) NEGATIVE NEGATIVE URINALYSIS [id number] 21:48:00* Test Item Value Reference Range Interpretation [...] = MUCU) TRACE /LPF NONE SEEN URINALYSIS [id number] 07:00:00* Test Item Value Reference Range Interpretation [...] TRACE /LPF NONE SEEN - US BIOPHYS [id number] 00:00:00 [facility] 2000 Sex: F Name: LUIS EDMONDS [facility] : 2000 Age/S: 20 / F [address] [place] [address] Bl Unit #:[id number] Loc: [place] [address] Phys: Effie Solitario MD Acct: [id number] Dis Date: Status: REG ER PHONE #: [phone] Exam Date: 03/01/2021 0758 FAX #: [phone] Reason: decreased movements EXAMS: CPT CODE: [id number] US BIOPHYS PROF 11129 PROCEDURE INFORMATION: Exam: US Biophysical Profile With [...] at 0810 Reported and signed by: Nilton Ferderick M.D. CC: Technologist: EKATERINA Durham) Trnscb Date/Time: 03/01/2021 (809) [email or web address] Orig Print D/T: S: 03/01/2021 (0811) Probe: PAGE 1 Signed Report AMNISURE (ROM) [id number] 16:16:00* Test Item Value Reference Range Interpretation Comme nts AMNISURE (ROM) TEST (test co de = AMNI) NEGATIVE NEGATIVE [id number] 16:16:00* Test Item Value Reference Range Interpretation Comme nts FIBRONECTIN (test code = FFN) NEGATIVE NEGATIVE [id number] 20:50:00* Test Item Value Reference Range Interpretation Comme nts FIBRONECTIN (test code = FFN) NEGATIVE NEGATIVE URINALYSIS [id number] 20:32:00* Test Item Value Reference Range Interpretation [...] TRACE /LPF NONE SEEN - US BIOPHYS [id number] 00:00:00 [facility] 2000 Sex: F Name: LUIS EDMONDS [facility] : 2000 Age/S: 20 / F [address] [place] [address] Blvd Unit #:[id number] Loc: [place] [address] Phys: Effie Solitario MD Acct: [id number] Dis Date: Status: REG ER PHONE #: [phone] Exam Date: 02/12/20212122 FAX #: [phone] Reason: Decreased movements EXAMS: CPT CODE: [id number] US BIOPHYS PROF 22568 PROCEDURE INFORMATION: Exam: US Biophysical Profile With Non-Stress Test Exam date and time: 02/12/2021 8:58 PM Age: 20 years old Clinical indication: Other: Decreased fm; ; Additional info: Decreased movements TECHNIQUE: Imaging protocol: biophysical profile with non-stress test. COMPARISON: US PREGNANCYLTD 12/25/2020 4:51 PM FINDINGS: heart rate: The heart rate is 126 bpm. Presentation: There is a single live intrauterine gestation in vertex presentation. Placenta: There is a grade 3 anterior placenta. There is no placenta previa or placental abruption. There is a 3 vessel umbilical cord. The umbilical cord S/D ratios range between 1.8 and 2.6, which is between normal limits. Amnioticfluid index: The amniotic fluid index is 10.6 cm. The deepest vertical pocket is 0.5 cm. This is within normal limits. BIOPHYSICAL PROFILE: Breathin/2 Gross body movements: 2/2 tone: 2/2 Qualitative amniotic fluid: 2/2 Reactive heart rate: 2/2 Biophysical Profile Score: 1 0/10 MATERNAL ANATOMY: Cervix: The uterine cervix is [...] 1 Signed Report (CONTINUED) Name: LUIS EDMONDS [facility] : 2000 Age/S: 20 / F [address] [place] [address] Unit #: [id number] Loc: [place] [address] Phys: Effie Solitario MD Acct: [id number] Dis Date: Status: REG ER PHONE #: [phone] Exam Date: 02/12/20212122 FAX #: [phone] Reason: Decreased movements EXAMS: CPT CODE: [id number] US BIOPHYS PROF 72689 <Continued> at 2121 Reported and signed by: Geovanny Hughes D.O. CC: Technologist: Yuki Ray RDMS()(OB) Trnscb Date/Time: 02/12/2021 (2121) [email or web address] Orig Print D/T: S: 02/12/2021 (2148) Probe: PAGE 2 Signed ReportURINALYSIS [id number] 03:25:00* Test Item Value Reference Range Interpretation [...] MUCU) TRACE /LPF NONE SEEN - US [id number] 17:34:00 [facility] LUIS [facility] : 2000 Sex: F Name: LUIS EDMONDS [facility] Madeline Coffman : 2000 Age/S: 20 / F [address] [place] [address] Blvd Unit #: [id number] Loc: [place] [address] Phys: ScottPearl Molina Acct: [id number] Dis Date: Status: REGER PHONE #: [phone] Exam Date: 12/25/2020 1726 FAX #: [phone] Reason: h/o low ISMA, unsure if PROM, translabial cervic EXAMS: CPT CODE: [id number] LTD 86371 LIMITED ULT RASOUND INDICATION: with history of low amniotic fluid [...] ? MA= 24 wks 4 days Ultrasound: MA=24 wks 6 days MA MEAN BPD: 25 wks 2 days 6.2 cm HC/AC: 1.14 (1.04-1.22) HC: 24 wks 6 days 22.8 cm FL/AC: 22.42 (20%-24%) AC: 24 wks 5 days 20 cm FL/BPD: 72.16 (71%-87%) FL: 24 wks 6 days 4.5 cm HUM:24 wks 4 days 4 cm EFW: 730 +/- 109 gm LMP%: 48.5% ISMA (after 24 weeks): 13.6 cm S/D Ratio (after 24 weeks): 2.6 IMPRESSION: Single viable intrauterine of estimated sonographic gestationalage of 24 weeks 6 days. SL: SG-H PAGE 1 Signed Report (CONTINUED) Name: LUIS EDMONDS [facility] Chandra : 2000 Age/S: 20 / F [address] [place] [address] Unit #: [id number] Loc: [place] [address] Phys: Pearl Chavez DO Acct: [id number] Dis Date: Status: REG ER PHONE #: [phone] ExamDate: 12/25/2020 1726 FAX #: [phone] Reason: h/o low ISMA, unsure if PROM, translabial cervic EXAMS: CPT CODE: [id number] LTD 42799 <Continued> at 1734 Reported and signed by: Judah Izquierdo M.D. CC: Pearl Chavez DO Technologist: Merna Figueroa RDMS(AB) Trnscb Date/Time: 12/25/2020 (1733) [email or web address] Orig Print D/T: S: 12/25/2020 (173) Probe: PAGE 2 Signed ReportAMNISURE (ROM) [id number] 17:14:00* Test Item Value Reference Range Interpretation Comme nts AMNISURE (ROM) TEST (test co de = AMNI) NEGATIVE NEGATIVE URINALYSIS [id number] 17:10:00* Test Item Value Reference Range Interpretation [...] /HPF NONE A DRUGS OF ABUSE SCREEN [id number] 17:07:00* Test Item Value Reference Range Interpretation [...] for non-medical purposes. - US PREG AFTER [id number] 02:47:00 [facility] : 2000 Sex: F Name: LUIS EDMONDS [facility] Madeline Coffman : 2000 Age/S: 19 / F [address] [place] [address] Blvd Unit #: [id number] Loc: [place] [address] Phys: Brittnee Ramirez MD Acct: [id number] Dis Date: Status: REGER PHONE #: [phone] Exam Date: 11/23/2020143 FAX #: [phone] Reason: No PNC, bleeding, approximately 20 weeks EXAMS: CPT CODE: [id number] US PREG AFTER 1ST TRI 17779 EXAM: US, US PREG AFTER 1SR TRI: 11/23/2020, 0108 hours HISTORY: No PNC, bleeding, approximately 20 weeks TECHNIQUE: Sonographic evaluation is performed of the pelvis via transabdominal approach using grayscale, color flow and Doppler imaging when appropriate. COMPARISON: None available. FINDINGS: The examination shows a single fetus in variable presentation. Normal cardiac activity is noted at 140 per second. The amountof amniotic fluid is normal. The placenta is [...] is difference of one day between LMP estimatedgestational age and sonographic gestational age. Gross survey, within the limitation of gestational age, is unremarkable. Three- vessel umbilical cord, cord insertion, kidneys, bladder, stomach, extremities and 4 chamber view of heart was PAGE 1 Signed Report (CONTINUED) Name: LUIS EDMONDS [facility] : 2000 Age/S: 19 / F [address] [place] [address] Blvd Unit #: [id number] Loc:[place] [address] Phys: Brittnee Ramirez MD Acct: [id number] Dis Date: Status: REG ER PHONE #: [phone] Exam Date: 11/23/2020143 FAX #: [phone] Reason: No PNC, bleeding, approximately 20 weeks EXAMS: CPT CODE: [id number] US PREG AFTER 37208 <Continued> seen. Cervical length is not visualized. IMPRESSION: Single live fetus in variable presentation. heart rate is 140 bpm. 2. Sonographic EGA of 19 weeks 6 days and an sonographic DANY of 04/13/2021 +/- one standard deviation. SL:[JSYED- H] at 0247 Reported and signed by: Jeromy Wolfe M.D. CC: Brittnee Ramirez MD Technologist: Maryam Anderson RDMS(BR)(AB) Trnscb Date/Time: 11/23/2020 (246) t.SDR.JS38 Orig Print D/T: S: 11/23/2020 (025) Probe: PAGE 2 Signed Report- US PREG AFTER 2020-11-23 02:47:00 [facility] 2000 Sex: F Name: LUIS EDMONDS [facility] Madeline Coffman : 2000 Age/S: 19 / F [address] [place] [address] Blvd Unit #: [id number] Loc: [place] [address] Phys: Brittnee Ramirez MD Acct: [id number] Dis Date: Status: DEPER PHONE #: [phone] Exam Date: 11/23/2020143 FAX #: [phone] Reason: No PNC, bleeding, approximately 20 weeks EXAMS: CPT CODE: [id number] US PREG AFTER 1ST TRI 01108 EXAM: US, US PREG QAHQD1HV TRI: 11/23/2020, 0108 hours HISTORY: No PNC, [...] 15.25 cm : Avg = 20 weeks 3days . 4. FEMUR LENGTH - 3.07 cm: Avg = 19 weeks 4 days . 5. EFW: (AC.BPD, FL.HC)- [place] - 322.32g +/- 48.35 g EFW ([place])-GP 41.9 % [...] was PAGE 1 Signed Report (CONTINUED) Name: BI EDMONDS [facility] : 2000 Age/S: 19 / F [address] [place] [address] Blvd Unit #: [id number] Loc: [place] [address] Phys: Brittnee Ramirez MD Acct: [id number] Dis Date: Status: DEP ER PHONE #: [phone] Exam Date: 11/23/2020143 FAX #: [phone] Reason: No PNC, bleeding, approximately 20 weeks EXAMS: CPT CODE: [id number] US PREG AFTER 1ST TRI 70071 <Continued> seen. Cervical length is not visualized. IMPRESSION: Single live fetus in variable presentation. heart rate is 140 bpm. 2. Sonographic EGA of 19 weeks 6 days and an sonographic DANY of 04/13/2021 +/- one standard deviation. SL:[JSYED-H] at 0247 Reported and signed by: Jeromy Wolfe M.D. CC: Brittnee Ramirez MD Technologist: Maryam Anderson RDMS(BR)(AB) TrnscbDate/Time: 11/23/2020 (0247) t.JAMISONR.JS38 Orig Print D/T: S: 11/23/2020 (025) Probe: PAGE 2 Signed ReportURINALYSIS CIDANACG8057-27-12 01:40:00* Test Item Value Reference Range Interpretation [...] /HPF NONE A DRUGS OF ABUSE SCREEN [id number] 01:40:00* Test Item Value Reference Range Interpretation [...] be used for non-medical purposes. CBC W/AUTO [id number] 01:27:00* Test Item Value Reference Range Interpretation [...] c ode = MDIFF) NO BASIC METABOLIC [id number] 02:51:00* Test Item Value Reference Range Interpretation [...] = CA) 9.5 mg/dL 8.0-10.5 N HCG AHOKX1962-57-20 02:51:00* Test Item Value Reference Range Interpretation Comme nts HCG SERUM (test code = HCG) 27755.3 0 - 6 NOT PREGNA NT > 6 SUGGESTIVE OF EARLY RISES TWO FOLD EVERY 2 DAYS; SUGGEST RECONFIRMING AFTER 2 DAYS. 150,000-200,[address] TRIMESTER 10,000 - 50,000 2ND & 3RD TRIMESTERResults in emanuel-International Units/mL URINALYSIS TDQTEBGZ5336-45-73 02:39:00* Test Item Value Reference Range Interpretation [...] MUCU) TRACE /LPF NONE SEEN CBC W/AUTO [id number] 02:21:00* Test Item Value Reference Range Interpretation [...] ode = MDIFF) NO - US PREG 1ST HMQRKO3648-24-89 02:19:00 [facility] : 2000 Sex: FName: LUIS EDMONDS [facility] [place] : 2000 Age/S: 19 / F [address] [place] [address] Unit #:[id number] Loc: [place] [address] Phys: Nirav Nolan MD Acct: [id number] Dis Date: Status: REG ER PHONE #: [phone] Exam Date: 10/05/2020209 FAX #: [phone] Reason: VB EXAMS: CPT CODE: [id number] US PREG 1ST TRIMTR 62670 STUDY: - DUP AB/PEL/SC/LTD, - US PREG 1ST TRIMTR 10/05/2020 1:17 AM Ordering Physician: Nirav Nolan MD Patient Name: LUIS EDMONDS MR: [id number] : 2000; Age: 19 years y/o Female [...] resistance arterial and venous blood flow is demonstrated.LEFT OVARY AND ADNEXA: General: Normal size left ovary measuring 2.6 x 1.3 x 1.8 cm containing subcentimeter follicles. Doppler: Normal low resistance arterial and venous blood flow is demonstrated. URINARY BLADDER: Normal for degree of distention present containing anechoic urine. FLUID: None. OTHER FINDINGS: None. IMPRESSION: Normal single live intrauterine at 13 weeks 0 days. PAGE 1Signed Report (CONTINUED) Name: LUIS EDMONDS [facility] : 2000 Age/S: 19 / F [address] [place] [address] Bl Unit #: [id number] Loc: [place] [address] Phys: Nirav Nolan MD Acct: [id number] Dis Date: Status: REG ER PHONE #: [phone] Exam Date: 10/05/2020209 FAX #: [phone] Reason: VB EXAMS: CPT CODE: [id number] US PREG 1ST TRIMTR 04031 <Continued> SL: TPAINTER-H at 0219 Reported and signed by: Abdias Avila M.D. CC: Elina Rome MD; Nirav Nolan MD Technologist: aMryam Anderson RDMS(BR)(AB) Trnscb Date/Time: 10/05/2020 (218) tPOLLORCrystalTP6 Orig Print D/T: S: 10/05/2020 (221) Probe: PAGE 2 Signed Report- DUP AB/PEL/SC/LRE8901-71-39 02:19:00 [facility] 2000 Sex: F Name: LUIS EDMONDS [facility] : 2000 Age/S: 19 / F [address] [place] [address] Unit #: [id number] Loc: [place] [address] Phys: Nirav Nolan MD Acct: [id number] Dis Date: Status: REG ER PHONE #: [phone] Exam Date: 10/05/2020209 FAX #: [phone] Reason: see US PREG 1st TRIMTR EXAMS: CPT CODE: [id number] DUP AB/PEL/SC/LTD 02347 STUDY: - DUP AB/PEL/SC/LTD, - US PREG 1ST TRIMTR 10/05/2020 1:17 AM Ordering Physician: Nirav Nolan MD Patient Name: LUIS EDMONDS MR: [id number] : 2000; Age: 19 years y/o Female Clinical Indication: at 12 weeks with vaginal bleeding. Comparison: None TRANSABDOMINAL PELVIC ULTRASOUND: Technique: Grayscale, color, and Doppler transabdominal imaging of the pelvis was performed with standard technique. UTERUS: Mildlyenlarged uterus measuring 12.0 x 8.0 x 9.5 [...] 1 Signed Report (CONTINUED) Name: LUIS EDMONDS [facility] : 2000 Age/S: 19 / F [address] [place] [address] Blvd Unit #: [id number] Loc: [place] [address] Phys: Nirav Nolan MD Acct: [id number] Dis Date: Status: REG ER PHONE #: [phone] Exam Date: 10/05/2020209 FAX #: [phone] Reason: see US PREG 1st TRIMTR EXAMS: CPT CODE: [id number] DUP AB/PEL/SC/LTD 89734 <Continued> SL: TPAINTER-H at 0219 Reported and signed by: Abdias Avila M.D. CC: Elina Rome MD; Nirav Nolan MD Technologist: Maryam Anderson RDMS(BR)(AB) Trnscb Date/Time: 10/05/2020 (218) KaneTP6 Orig Print D/T: S: 10/05/2020 (221) Probe: PAGE 2 Signed Report- DUP AB/PEL/SC/SMC2697-29-13 22:07:00 [facility] MADELINE COFFMANName: LUIS EDMONDS : 2000 Sex: F Name: LUIS EDMONDS [facility] Madeline Coffman : 2000 Age/S: 19 / F [address] [place] [address] Blvd Unit #: [id number] Loc: [place] [address] Phys: Cathy Bruce Acct: [id number] Dis Date: Status: REG ER PHONE #: [phone] Exam Date: 08/22/20202199 FAX #: [phone] Reason: see US PREG 1st TRIMTR EXAMS: CPT CODE: [id number] DUP AB/PEL/SC/LTD 35330 PROCEDURE: FIRST TRIMESTER ULTRASOUND INDICATION: 6 weeks [...] 6 weeks 4 days. SL: BALJINDER at 2206 Reported and signed by: Judah Izquierdo M.D. CC: Elina Rome MD; Cathy MELO Technologist: Maryam Anderson RDMS(BR)(AB) Trnscb Date/Time: 08/22/2020 (2206) GretaR.SG9 Orig Print D/T: S: 08/22/2020 (2209) Probe: PAGE 1 Signed Report- US PREG 1ST [id number] 22:07:[facility] 2000 Sex: F Name: LUIS EDMONDS [facility] : 2000 Age/S: 19 / F [address] [place] [address] Unit #: [id number] Loc: [place] [address] Phys: Cathy Bruce Acct: [id number] Dis Date: Status: REG ER PHONE #: [phone] Exam Date: 08/22/20202199 FAX #: [phone] Reason: 6w , cramping EXAMS: CPT CODE: [id number] US PREG 1ST TRIMTR 27010 PROCEDURE: FIRST TRIMESTER ULTRASOUND INDICATION: 6 weeks [...] Rome MD; Cathy MELO Technologist: Maryam Anderson RDMS()(AB) Trnscb Date/Time: 08/22/2020 (2206) tPOLLOR.SG9 Orig Print D/T: S: 08/22/2020 (2209) Probe: PAGE 1 Signed ReportURINALYSIS FRAOFMRU6923-66-36 21:50:00* Test Item Value Reference Range Interpretation [...] MUCU) TRACE /LPF NONE SEEN BASIC METABOLIC [id number] 21:48:00* Test Item Value Reference Range Interpretation [...] patient ? YHOW MANY WEEKS? 6 WEEKSHCG WKWUE6411-74-66 21:48:00* Test Item Value Reference Range Interpretation Comme nts HCG SERUM (test code = HCG) 84300.6 0 - 6 NOT PREGNA NT > 6 SUGGESTIVE OF EARLY RISES TWO FOLD EVERY 2 DAYS; SUGGEST RECONFIRMING AFTER 2 DAYS. 150,000-200,[address] TRIME[address] 10,000 - 50,000 2ND & 3RD TRIMESTERResults in emanuel-International Units/mL Is patient ? YHOW MANY WEEKS? 6 WEEKSUR HCG PJJR8962-69-26 21:47:00* Test Item Value Reference Range Interpretation Comme nts UR HCG QUAL (test code = HCGQLU) POSITIVE NEGATIVE CBC W/AUTO JJBE7720-47-27 21:33:00* Test Item Value Reference Range Interpretation [...] c ode = MDIFF) NO CBC W/AUTO [id number] 21:31:00* Test Item Value Reference Range Interpretation [...] (test c ode = MDIFF) Novel Coronavirus 2019 tAiS4140-63-06 14:50:00* Test Item Value Reference Range Interpretation Comme nts Novel Coronavirus 2019 nCoV (test code = COVID19) Negative Negative Performed by: [facility] [address] [place] [address], [address] [place], [place] [address] CLIA#: [id number] Does patient have the clinical criteria consistent with COVID-19? YIs the patient going to be discharged home? Y- CT NECK W/MPTINJYK0840-03-98 02:35:00 Name: LUIS EDMONDS [facility] : 2000 Age/S: 19 / F [address] [place] [address] Blvd Unit #:[id number] Loc: [place] [address] Phys: Amilcar Pablo HOUSE[employer] Acct: [id number] Dis Date: Status: REG ER PHONE #: [phone] Exam Date: 02/16/2020 0134 FAX #: [phone] Reason: R lymphadenopathy, throat pain, fever EXAMS: CPT CODE: [id number] CT NECK W/CONTRAST 91259 EXAM: CT, CT NECK W/CONTRAST: 02/16/2020, 0132 hours Clinical Indication: Right lymphadenopathy. Fever. Throat pain. Comparison: CT cervical spine 06/09/2018. Technique: CT of the neck is performed with a multidetector CT. Coronal and sagittal reconstructions were obtained. CT imaging was performed with exposure control parametersto reduce radiation dose. All CT scans at [...] 1 Signed Report (CONTINUED) Name: LUIS EDMONDS [facility] [place] : 2000 Age/S: 19 / F [address] [place] [address] Unit #: [id number] Loc: [place] [address] Phys: Amilcar Pablo HOUSE[employer] Acct: [id number] Dis Date: Status: REG ER PHONE #: [phone] Exam Date: 02/16/2020 0134 FAX #: [phone] Reason: R lymphadenopathy, throat pain, fever EXAMS: CPT CODE: [id number] CT NECK W/CONTRAST 17897 <Continued> unremarkable. OSSEOUS STRUCTURES: There are no fractures or dislocations. There are no lucencies at the bases of the mandibular teeth to suggest abscess. There are no radiopaque foreign bodies noted. THYROID GLANDS: The thyroid lobes are symmetric and there are no lesions. VISUALIZED LUNG APICES: There are no pulmonary masses orconsolidation. IMPRESSION: 1. Enlarged neck lymph nodes bilaterally. Differential consideration would include inflammatory/infectious or metastatic adenopathy. 2. Enlarged right aspect of lingual tonsils. Although this may be due to infectious/inflammatory process, follow-up to resolution recommended. SL: TRES at 0235 Reported and signed by: Jeromy Wolfe M.D. CC: Elina Rome MD; Amilcar Pablo NP Technologist:Dao Patterson(R)(CT); Natasha CTDI: DLP: Trnscb Date/Time: 02/16/2020 (0235) tPOLLOR.JS38 Orig Print D/T: S: 02/16/2020 (0239) PAGE 2 Signed ReportCOMPREHENSIVE METABOLIC [id number] 00:12:00* Test Item Value Reference Range Interpretation [...] = ALKP) 70 IUnit/L 60-350 N MONO [id number] 00:09:00* Test Item Value Reference Range Interpretation Comme nts MONO SCREEN (test code = MONO) NEGATIVE NEGATIVE URINALYSIS HAADLIXI3910-71-30 00:02:00* Test Item Value Reference Range Interpretation [...] MUCU) 1+ /LPF NONE SEEN COMPREHENSIVE METABOLIC [id number] 00:02:00* Test Item Value Reference Range Interpretation [...] code = ALKP) IUnit/L 60-350 CBC W/AUTO [id number] 23:59:00* Test Item Value Reference Range Interpretation [...] (test code = MDIFF) NO UR HCG [id number] 23:56:00* Test Item Value Reference Range Interpretation Comme nts UR HCG QUAL (test code = HCGQLU) NEGATIVE NEGATIVE Notes Date/Time Note Provider Source 2022-11-16 15:41:00 [id number] S1YQEcKBnr2eWVbql0iSkcRWvZI85 hPuuDh6QaO2rin2vkId6iZfwuba2654-17-28V83:41:38520 1-[address] [address] PATIENT NAME: LUIS EDMONDS ADMIT DATE: 10/30/22ACCOUNT NO: [id number] ROOM NO: G.431 AGE: 21 REPORT TYPE: 360 - QUERY RESPONSE DOCUMENT SEX: F ADMITTING PHYSICIAN:Luis Burciaga MD ATTENDING PHYSICIAN:Luis Burciaga MD Provider Query QUERY TEXT: Clarification Pathology 360MD Query related questions should be directed to: [facility] Coding Query Hotline Based on your clinical [...] AM at 1541 PATIENT NAME: LUIS EDMONDS noteG.[id number] for patient ukzzHTXGRPPDRRJBDF0007-00-81N77:43:01 [facility] 2022-11-02 15:02:00 [id number] +d8hVbnCAGyOGmtQYVC7vSyS8MMH0 xnlWG8lg4KX68EWvo2ma3MDdnzl1916-27-70Q06:02:00 [facility] ([facility])OB Disch PostpartumREPORT#:[id number] REPORT STATUS: SignedDATE:11/02/22 TIME: 1502 PATIENT: LUIS EDMONDS UNIT #: [id number]#: [id number] ROOM/BED: [facility]-1DOB: [birth year] AGE: 21 SEX: F ATTEND: Luis Burciaga AUTHOR: Luis Burciaga MD * ALL edits [...] ActivityAdditional discharge routines: None at 1504 RPT #:[id number] OF REPORTCLClinical mxce1559-04-46V53:02:00G.CZDE65141837-4389FAHegmh able for patient wwfiHWSCIHSXVEDJIL5947-46-91C62:04:37 [facility] 2022-11-02 14:57:00 [id number] QEjcqoaqVPdSwFWreqcn6p1fxJUfS xBLQVqqhpJ5DQSeD8qywVnYOLMT2929-65-69L94:57:00 [facility] ([facility])OB Postpart Progr NoteREPORT#:[id number] REPORT STATUS: SignedDATE:11/02/22 TIME: 1457 PATIENT: LUIS EDMONDS UNIT #: [id number]#: [id number] ROOM/BED: [facility]-1DOB: [birth year] AGE: 21 SEX: F ATTEND: Luis [...] routine care, discharge today at 1500 RPT #:[id number] OF REPORTPRProgress mudt0488-57-83H05:57:00G.OURU62009918-6270PMLaboz able for patient hazdVWIOUODXMOEGJS1857-37-67A29:01:08 [facility] 2022-11-01 15:13:00 [id number] 2UiBPh+tiN9gdY7yWABstJhjUYNvb YzbF5ueezXxxvHmDZ32XKlMk6HV3629-96-27E54:13:00 [facility] ([facility])OB Postpart Progr NoteREPORT#:[id number] REPORT STATUS: SignedDATE:11/01/22 TIME: 1513 PATIENT: LUIS EDMONDS UNIT #: [id number]#: [id number] [address] AGE: 21 SEX: F ATTEND: [...] % (Auto) (14.0 - 32.0 %) 25.7 [place] % (Auto) (4.8 - 9.0 %) 9.7 H Eos % (Auto) (0.3 - 3.7 %) 0.8 Baso % (Auto) (0.0 - 2.0 %) 0.5 Neut # (Auto) (2.0 - 7.6 x10 3/uL) 7.76 H Lymph # (Auto) (1.0 - 3.8 x10 3/uL) 3.17 [place] # (Auto) (0.1 - 0.8 x10 3/uL) [...] Assessment PlanAssessment: nml progressPlan: routine care at 2130 RPT #:[id number] OF REPORTPRProgress ufeg1954-71-62Z24:13:00G.UEMQ33980675-3177JPYzkxj able for patient fqjpIBPFBHZMFLAALU1244-38-15K97:14:52 [facility] 2022-10-31 15:14:00 [id number] eFB9Qv0rt/zfc2jqQQMXgb9pZdseU QOfnjNqcZELTO2VHmawVSYDB4Qs7349-92-54B13:14:00 [facility] ([facility])DT History PhysicalREPORT#:[id number] REPORT STATUS: SignedDATE:10/31/22 TIME: 1513 PATIENT: LUIS EDMONDS UNIT #: [id number]#: [id number] [address] AGE: 21 SEX: F ATTEND: Luis Burciaga [facility] AUTHOR: Luis Burciaga MD * ALL edits or amendments must be made on the electronic/computer document * History PhysicalHistory PhysicalPatient seen and examined and care records reviewed with the following updates Laboratory Tests 10/30/221829:[Embedded Image Not Available]Laboratory Tests Test Result Date Time Hematology WBC (4.5 - 11.0 x10 3/uL) 10.1 10/30 1830 RBC (3.54 - 5.02 x10 6/uL) 3.32 L 10/300 Hgb (11.0 - 15.0 g/dL) 8.6 L 10/300 Hct (33.0 - 45.0 %) 27.4 L 10/300 MCV (81.0 - 99.0 fL) 82.5 10/300 MCH (27.0 - 33.0 pg) 25.9 L [...] (Auto) (14.0 - 32.0 %) 26.3 10/[address] % (Auto) (4.8 - 9.0 %) 9.6 H 10/30 1829 Eos % (Auto) (0.3 - 3.7 %) 0.6 10/30 1829 Baso % (Auto) (0.0 - 2.0 %) 0.3 10/30 1829 Neut # (Auto) (2.0 - 7.6 x10 3/uL) 6.27 10/30 1829 Lymph # (Auto) (1.0 - 3.8 x10 3/uL) 2.65 10/[address] # (Auto) (0.1 - 0.8 x10 3/uL) [...] Source Membrane Rupture (NEGATIVE) POSITIVE H 10/30 1729 Serology RPR (NONREACTIVE) NONREACTIVE 10/30 1829 Hep [...] Admin Penicillin G 5 MILLION.UN ASDIR 10/30 1830 CKD 10/31 Potassium IV 11/06 1829 1143 (PENICILLIN G POTASSIUM) Sodium Chloride 100 ML (SODIUM CHLORIDE 0.9% 100 ML) Penicillin G 50 ML Q4H 10/30 1830 AC 10/31 Potassium/Sodium IV 11/13 1829 0301 [...] PRN 10/31 034 CKD (NARCAN) IV 11/30 0344 Ropivacaine/Fentanyl/ 0 ASDIR 10/31 0345 AC 10/31 NS EPIDURAL 11/30 0344 1025 (fentaNYL/ROP 200 [...] PRN 10/30 1830 AC Citrate PO 11/29 182 (BICITRA ADULT DOSE) Lactated Ringer's 1,000 ML BOLUS PRN 10/30 183 AC (LACTATED RINGERS) IV 11/29 1829 Lactated Ringer's 1,000 ML .Q8H 10/30 1830 AC 10/30 (LACTATED RINGERS) IV 11/29 1829 2314 Gastrointestinal Drugs Sig/Victoriano Start time Last Medication Dose Route Stop Time Status Admin Famotidine 20 MG ONCE PRN 10/30 1830 AC 10/31 (PEPCID) IV 11/29 1829 0838 Metoclopramide HCl 10 MG ONCE PRN 10/30 1830 AC 10/31 (REGLAN) IV 11/29 1829 0837 Mineral Oil 30 ML ASDIR PRN 10/30 1830 AC (MINERAL OIL) TOPICAL 11/29 1829 Misoprostol 800 MCG ONCE PRN 10/30 1830 AC (miSOPROStoL) RECTAL 11/29 1829 Ondansetron HCl 4 MG Q4H PRN PRN 10/30 1830 AC 10/31 (ZOFRAN) IV 11/29 1829 1425 Local Anesthetics (Parenteral) Sig/Victoriano Start time Last Medication Dose Route Stop Time Status Admin Bupivacaine HCl 10 ML ONCE PRN 10/31 0345 CKD (BUPIVACAINE HCL) EPIDURAL 11/30 034 Bupivacaine HCl 10 ML ASDIR PRN 10/31 0345 CKD (BUPIVACAINE HCL) EPIDURAL 11/30 034 Bupivacaine HCl 30 ML ASDIR PRN 10/31 0345 CKD (MARCAINE 0.5%) EPIDURAL 11/30 0344 Lidocaine/Epinephrine 5 ML ASDIR PRN 10/31 0345 AC (LIDOCAINE 1.5% W/ LOCAL 11/30 034 EPINEPHrine) Bupivacaine HCl 0 ASDIR PRN 10/30 183 AC (BUPIVACAINE HCL) EPIDURAL 11/29 1828 Oxytocics Sig/Victoriano Start time Last Medication Dose Route Stop Time Status Admin Oxytocin/Sodium 250 ML ASDIR 10/31 0730 AC 10/31 Chloride IV 11/30 0729 0751 (Oxytocin 15 units/ NS 250 mL) Carboprost 250 MCG ONCE PRN 10/30 183 AC Tromethamine IM 11/29 1828 (HEMABATE) Methylergonovine 0.2 MG ONCE PRN 10/30 183 AC Maleate IM 11/29 1828 (METHERGINE) Oxytocin/Sodium 333.33 ML BOLUS PRN 10/30 1829 AC Chloride IV 11/29 1828 (Oxytocin 15 units/ NS 250 mL) Pharmaceutical Aids Sig/Victoriano Start time Last Medication Dose Route Stop Time Status Admin Sterile Water 10 ML ASDIR PRN 10/31 034 AC (WATER FOR INJECTION) EPIDURAL 12/01 343 [...] 10/31 1252 69 97 10/31 1249 75.0 04/15 1249 75 109/57 04/15 1247 75 98 04/15 1242 70 99 04/15 1237 76 100 04/15 1232 71 99 04/15 1227 72 100 04/15 1222 70 99 04/15 1219 77.0 04/15 1219 72 114/56 04/ 1217 83 99 04/15 1212 69 97 04/15 1207 72 100 04/15 1203 36.8 04/15 1202 82 97 04/15 1157 68 99 04/15 1152 62 99 04/15 1148 72.0 04/15 1148 73 97/54 04/15 1147 70 98 04/15 1142 74 99 04/15 1137 75 98 04/ 1132 68 98 04/15 1129 72.0 10/31 1129 65 99/53 04 1127 68 97 04/ 1122 62 98 04/ 1118 65.0 04/ 1118 68 89/47 04 1117 71 97 04 1112 68 98 04/15 1107 70 98 04/ 1102 66 98 04/ 1057 79 100 04 1052 79 100 04/ 1051 16 04 1048 79.0 04/ 1048 68 111/56 04 1047 71 100 04/15 1046 16 04 1042 82.0 04/15 1042 91 115/59 100 04/ 1041 16 04 1037 82.0 04/15 1037 87 112/57 100 04/ 1036 16 04/ 1032 81.0 04/ 1032 92 120/56 100 04/15 1031 17 04/ 1028 78.0 04/15 1028 82 119/61 04/ 1027 84 100 04/15 1022 74 100 04/15 1021 17 04/15 1021 81.0 04/15 1021 68 117/59 04/15 1017 76 100 04/15 1012 75 100 04/15 1007 96 100 04/15 0955 84 100 04/15 0715 36.7 17 04/15 0646 37.0 89 91 04/15 0641 73 98 04/15 0305 74.0 04/15 0305 83 100/58 04/15 0201 37.3 04/15 0040 84 100 04/15 0035 93 100 04/15 0031 95 91 /15 0030 102 100 /15 0025 84 100 /15 0020 90 100 15 0015 91 100 15 0010 101 99 /15 0005 93 100 /15 0000 89 100 14 2357 84.0 10/30 2357 93 117/66 04 2356 36.9 10/30 2355 88 100 10/30 2350 90 100 [...] 1725 139 117/55 98 at 1514 RPT #:[id number] OF REPORTHPHistory and physical rimyencxteu9508-02-01Z48:14:00G.QCES21036070-8358 AVAvailable for patient xehrMOXOFIJIGHQUDC2778-52-07W96:15:04 [facility] 2022-10-31 15:12:00 [id number] rX1fZ9uogXc/WUOnwtC3/rAeMKnSL xEkZ34F03QiHJk5rhWAIlfGg+kX6059-06-44G29:12:00 [facility] ([facility])OB Delivery NoteREPORT#:[id number] REPORT STATUS: SignedDATE:10/31/22 TIME: 151 PATIENT: LUIS EDMONDS UNIT #: [id number]#: [id number] [address] AGE: 21 SEX: F ATTEND: Luis Burciaga MDADM AUTHOR: Luis Burciaag MD * ALL edits or amendments must [...] for Hemorrhage. Delivery date A: Delivery time A: Birthweight (gm) A: Weight (lb) A: Weight (oz) A: Gender infant A: 1 minute infant A: 5 minutes A: 10 minutes infant A: Cord pH obtained infant A: Vacuum time A: Vacuum # pulls infant A: Vacuum # popoffs infant A: QBL at delivery: Provider comments on [...] oxytocin Count: correct Mother's condition: mother stable 's condition: stable in room at 1514 RPT #:[id number] OF REPORTCLClinical yszm8511-42-29E38:12:00G.HJRV96139472-9910UVXxtgy able for patient zudiTFJZFLYQZVBZAS9436-74-41J66:14:24 [facility] 2022-09-27 16:38:00 [id number]+IX TRMET56Xg/ILHnt6mdG2Mug7RTcuR mZZYJRRL6GZJ1ve2zwYf30S1I839787-71-20G83:38:00 [facility] ([facility])OB Disch UndeliveredREPORT#:[id number] REPORT STATUS: SignedDATE:09/27/22 TIME: 1638 PATIENT: BI EDMONDS UNIT #: [id number]#: [id number] [address] AGE: 21 SEX: F ATTEND: Luis Burciaga [facility] AUTHOR: Effie Marquez MD * ALL edits [...] 1245 Temp 98.1 09/27 1245 Pulse 96 / 1245 Resp 18 [...] 1245 Temp 98.1 09/27 1245 Pulse 96 / 1245 Resp 18 09/27 1245 Pulse Ox 93 09/26 2230 Vital Signs: Date Time Temp Pulse Resp B/P B/P Pulse O2 O2 Flow FiO2 Mean Ox Delivery Rate 09/27 1245 77.0 09/27 1245 98.1 96 18 119/58 09/27 0708 75.0 / 0708 91 105/55 09/27 0319 73.0 / 0319 88 99/57 09/26 2230 82 93 09/26 2229 79.0 09/26 2228 84 110/58 PATIENT WEIGHT: Weight (lb): Weight (oz): Weight (kg): Free Text Obj NotesFree Text Obj Notes:Gen: [id number]: normal respiratory effortNeuro: Exam: alert, oriented a6Lipnrjb: gravid, soft Uterine activity: Monitor: toco Frequency (description): None Frequency (minutes): PROFESSOR 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 Assessment: no evidence laborImpression: reactive NSTPlan: discharge [...] timeframe: In 1-2 weeks at 1951 RPT #:[id number] OF REPORTCLClinical [id number]:38:00G.[id number] able for patient lqzzLPOGXZUIYJQSUM0907-47-13C51:53:14 [facility] 2022-09-27 10:39:00 [id number] ZNA/jeYcyT8ScWKE2Q5tlN2BRIHhS UdjE4pNX6+[id number]:39:00 [facility] ([facility])OB Antepartum Prog NoteREPORT#:[id number] REPORT STATUS: SignedDATE:09/27/22 TIME: 1039 PATIENT: BI EDMONDS UNIT #: [id number]#: [id number] [address] AGE: 21 SEX: F ATTEND: Luis Burciaga [facility] AUTHOR: Effie Marquez MD * ALL edits [...] Free Text Obj NotesFree Text Obj Notes:Gen: VZOx8Ticmb: normal respiratory effortNeuro: Exam: alert, oriented n3Qyakgpl: gravid, soft Uterine activity: Monitor: toco Frequency (description): none Frequency (minutes): PROFESSOR OF HISTORICAL THEOLOGY: Normal exteral genitalia Cervical/ exam: Dilatation (cm): 1 Effacement (%): 50 station: -3 Presentation: Membrane status: FHR evaluation: FHR category: category I Diagnosis, Assessment Plan Diagnosis, Assessment PlanFree text A P:IUP 32 07/25 FFN + Patient found stable, patient evaluated by MFM, he recommends discharge home if no cervical change. Will check her this afternoon. at [facility] RPT #:[id number] OF REPORTPRProgress ucvx5264-09-02L20:39:00G.SDEB29199185-1869AAFgacn able for patient bjvtJPGQKDWCGXURJA6094-04-37L79:52:44 [facility] 2022-09-27 09:19:00 [id number]/dCaC zLMRyWhLf0uXIX8Wn4gSKQDn3SaUi 3K2b2C10Wh5UwN18xuWCDI58iHu2763-44-17F22:19:00 [facility])MF Consultation NoteREPORT#:[id number] REPORT STATUS: SignedDATE:09/27/22 TIME: 918 PATIENT: BI EDMONDS UNIT #: [id number]#: [id number] [address] AGE: 21 SEX: F ATTEND: [...] globulin this preg: Monitor mode - UA: Jasper units: Feeding preference: Delivery dataDelivery date infant A: Delivery time A: Birthweight (gm) A: Weight (lb) A: Weight (oz) A: Gender A: 1 [...] Ox 93 09/26 2230 Temp 36.7 09/26 1859 Resp 18 09/26 1859 PATIENT WEIGHT: Weight (lb): Weight (oz): Weight [...] pH (5.0 - 7.0) 5.0 Ur Specific [place] (1.005 - 1.030) 1.033 H Urine Protein [...] PlanFree Text A P:MFM ConsultationPt seen and evaluatedIsabelle is a 21yo at 32w2d (EDC 11/20/2022) admitted for Thr PTL yesterday. Cx apparently 1 cmShe is feeling well Denies LOF, CTX or VB currently Reports good FM Earlier admission last month for possible PPROM but ruled out. PNC - significant for short interval PMH - nonePSH - noneObHx - at term, had elevated BPs at termSocHx - neg p6AMJSCezb - PNV AF VSS NST: 120-130, mod [...] you closelyFloor time 50min at 0927 RPT #:[id number] OF REPORTYASxwezzscibmy6177-58-08A69:19:00G.PDOC2 1957349-0221RSKfmfadmij for patient rngqQJJZNJBKBHRZVI5877-95-11H54:28:02 [facility] 2022-09-27 05:02:00 [id number]+LVv6HJ VH3So3veCF4CNeYKxP4txvNy9ujtQ Km2aAWLRI6N1MqUdz3mgJv9E4JJ0280-92-81R74:02:00 [facility]#:[id number] REPORT STATUS: SignedDATE:09/27/22 TIME: 0502 PATIENT: BI EDMONDS UNIT #: [id number]#: [id number] [address] AGE: 21 SEX: F ATTEND: [...] B/P 99/57 09/27 0319 Pulse 88 09/27 0319 Pulse Ox 93 09/26 2230 Temp 98.1 [...] pH (5.0 - 7.0) 5.0 Ur Specific [place] (1.005 - 1.030) 1.033 H Urine Protein [...] score of 8/8.SL: 131. Impression By: Karoline Wilson M.D.ULTRASOUND - US PREG AFTER TRI 09/26 2004 Report Impression - Status: SIGNED Entered: 09/26/20222116 IMPRESSION: 1. Single viable intrauterine gestation in cephalic presentation. 2. Normal growth concordant with dates. 3. Normal biophysical profile. Impression By: [email or web address] Pati Wolfe M.D. Diagnosis, Assessment Plan Diagnosis, Assessment PlanComments:Impression:1. IUP at 32 2/7wks2. +FFN3. Adv cervical dilation Plan:1. Phone consult called to [facility], Dr Judge. No Celestone is needed ( last course of steroid was given 3+ wk ago on 09-08-22 and 09-09-22 ).No MgSO4 is needed at 32 1/7wks with no contractions.2. Admit for 23h observation.3. Will recheck cx in AM. If no contraction or cervical change, will DC home. at 0512 RPT #:[id number] OF REPORTHPHistory and physical zkickdhgpjo1952-84-43M06:02:00G.MOHJ24360431-8500 AVAvailable for patient tlirQPASCTPEGXJIUT3651-86-36C80:12:22 [facility] 2022-09-26 19:34:00 R96925412797iQ5I5zrH yXMjKI38CXlarSXfRyIgI0BBoxCe7 Ezs45GSC69dU1b8rOTrmIgE+dLT2645-84-41F23:34:00 [facility])OLGA Evaluation NoteREPORT#:[id number] REPORT STATUS: SignedDATE:09/26/22 TIME: 1933 PATIENT: BI EDMONDS UNIT #: [id number]#: [id number] [address] AGE: 21 SEX: F ATTEND: [...] CAP PO DAILY 09/07/22 CA/IRON/FA/DHA 2149 (PRENATE ESSENTIAL)Strength: 28 MG IRON-1 MG-300MG CAP DME - CRUTCHES 03/06/22 (CRUTCH SET) 1617Strength: 1 ITEM EACH AllergiesUncoded Allergies:MARCUS ACID- THROAT SWELLING (Severe, 08/03/22) Objective GeneralVS:Last Documented: Result Date Time Pulse Ox 98 09/26 1859 Temp 98.1 09/26 1859 Pulse 123 / 1859 Resp 18 / 1859 B/P Mean 82.0 09/26 1858 B/P 112/66 03/ 1858 Vital Signs Date Temp Pulse Resp B/P B/P Mean Pulse Ox FiO2 09/26 98.1 114-123 18 112/66 82.0 98 PATIENT WEIGHT: Weight (lb): Weight [...] OB US at 0452 Addendum 1: 09/27/22 0452 by Zoila Gomez DO At 2152FHT 135 cat 1 strip with mod variability, accelerations 15x15.Cxn noneCX unchanged 1+/50/-3.FFN was positive.Amnisure negative.Wet prep negative.UDS negative.UA +2 protein. 10-20 WBC. TX with po Macrobid 100mg BID.OB US 31 3/7wks. CWD. Cephalic. Ant placenta, grade 2. ISMA 11.4cm. EFW 1628g (3lb9).BPP 8/8.Due to +FFN, will admit for 23hr obs.Phone consult called to [facility], Dr Judge. No Celestone is needed ( last course of steroid was given 3+ wk ago on 09-08-22 and 09-09-22 ).No MgSO4 is needed at 32 1/7wks with no contractions.POC dw patient, nurse at 0502 RPT #:[id number] OF REPORTCLClinical zmck1554-14-25M04:34:00G.UTFQ21488935-1637EZLskvr able for patient icjpVUJRNQPOKAPMTS7583-25-62H83:52:22 [facility] 2022-09-26 19:30:00 [id number] N0vGwcaWbZ3R8XSRiGPWfZnDknFlv TRdY3LASig6bXUrUY38ZnYPtNDK5461-66-09U63:30:00 [facility] ([facility] Medical Screening ExamREPORT#:[id number] REPORT STATUS: SignedDATE:09/26/22 TIME: 1929 PATIENT: BI EDMONDS UNIT #: [id number]#: [id number] ROOM[address]BED: [address]: [address] AGE: 21 SEX: F ATTEND: Luis Burciaga DT: AUTHOR: Zoila Gomez DO * ALL edits or amendments must be made on the electronic/computer document * Medical Screening Exam Provider AttestationComments:Patient was seen at 1920 for contraction, back pain, and decreased FM at 32 1/7wks at 1931 RPT #:[id number] OF REPORTCLClinical upfu6145-51-91J49:30:00G.XFZU74333921-9837LUJlsib able for patient uqqlWCTNMRXVDJYJUW4586-53-60I69:31:38 [facility] 2022-09-14 08:43:00 [id number] 16bDCLaihNtVHiehkVicweU/Pmb1V MERCtvpd8P1WsJdtVcy+snh98f26906-75-61M43:43:00 [facility] ([facility])OB Disch UndeliveredREPORT#:[id number] REPORT STATUS: SignedDATE:09/14/22 TIME: 0843 PATIENT: LUIS EDMONDS UNIT #: [id number]#: [id number] ROOM/BED: 348[address]1DOB: 02 AGE: 21 SEX: F ATTEND: Luis Burciaga AUTHOR: Luis Burciaga MD * ALL edits [...] resolved and was cleared for discharge by MFMDischarge to: Home/Self CareDischarge condition: stableDischarge diagnosis: pre-term laborDischarge management: less than 30 mins Discharge InstructionsInstructions: routine instr sheet givenDiet: Resume Home Diet/FeedsAdditional Discharge Routines: None at 0845 RPT #:[id number] OF REPORTCLClinical suce5356-08-39B43:43:00G.HYSP56977364-7532WSUiors able for patient hwnmELIFRGKMJTRFCG8879-70-15R90:46:05 [facility] 2022-09-14 08:41:00 E63160468044pK+b2qoZ ZWtKKcdnzx0yHg4TsEvd2rPDfGWe7 hu72Zn4r4BvMC2odIyrI8p9z2uf9375-53-72C72:41:00 [facility] ([facility])OB Antepartum Prog NoteREPORT#:[id number] REPORT STATUS: SignedDATE:09/14/22 TIME: 0841 PATIENT: LUIS EDMONDS UNIT #: [id number]#: [id number] [address]: [address] AGE: 21 SEX: F ATTEND: [...] threatened laborPlan: discharge home at 0843 RPT #:[id number] OF REPORTPRProgress ozxi6465-98-77S46:41:00G.ATSH06560044-6176ZAWmits able for patient ivcnIWFFONKKHGLHJB1495-11-99L48:43:25 [facility] 2022-09-13 17:53:00 U46106738988VM7FGytm JEYvHlhvE4osF5Xku2by2ZLgrxpOp RPcG6S0PSdyBopQeR6Zrpw/MBwt5233-85-64G40:53:00 [facility] ([facility])OB Antepartum Prog NoteREPORT#:[id number] REPORT STATUS: SignedDATE:09/13/22 TIME: 175 PATIENT: LUIS EDMONDS UNIT #: [id number]#: [id number] [address] AGE: 21 SEX: F ATTEND: [...] infant outside hospital decreases at 1802 RPT #:[id number] OF REPORTPRProgress yzru7139-27-81P42:53:00G.AJAR55172618-9564WLItckt able for patient ouplEUDXOWSUDLDFFZ4319-38-69F52:02:32 [facility] 2022-09-13 09:03:00 T22927721831oULG2Dke bvQt71OqXBa9M+htYDcpwNbhRyKgN +pHwIEcDshUldqcdtbG1AF14wnI2289-49-11R87:03:00 [facility] ([facility])MFM Progress NoteREPORT#:[id number] REPORT STATUS: SignedDATE:09/13/22 TIME: 902 PATIENT: LUIS EDMONDS UNIT #: [id number]#: [id number] [address]: [address] AGE: 21 SEX: F ATTEND: [...] with you closelyFloor time 35min at 0911 RPT #:[id number] OF REPORTPRProgress yzvq5894-52-17F67:03:00G.KAAO83758378-9576MUBbyrr able for patient vyceABMEQFMKGXQYBS7845-86-23F32:12:14 [facility] 2022-09-12 08:28:00 P68241476590AaIWCiJz SP02M3dUax51mLprklKMaF/vEki4E /VGnTlq98Ykq1cPPfbo8MnB8fxj7018-54-60Z77:28:00 [facility] ([facility] Progress NoteREPORT#:[id number] REPORT STATUS: SignedDATE:09/12/22 TIME: 827 PATIENT: LUIS EDMONDS UNIT #: [id number]#: [id number] [address]: [address] AGE: 21 SEX: F ATTEND: Luis Burciaga [facility] AUTHOR: Kahlil Moore MD * ALL edits or amendments must be made on the electronic/computer document * Objective GeneralVS/I O:Last Documented: Result Date Time B/P Mean 71.0 09/12 0740 B/P 100/50 09/12 0740 Pulse 74 09/12 0740 Pulse Ox 99 09/11 2341 Temp 36.6 09/11 2341 Resp 16 09/11 2341 PATIENT WEIGHT: Weight (lb): 172Weight (oz): 6.42Weight [...] you closelyFloor time 35min at 0834 RPT #:[id number] OF REPORTPRProgress pwuo7397-90-77N28:28:00G.LKLK98283035-5068FPJhhdl able for patient qjuzEYGAUPFQQFTWNS2925-21-17N09:34:19 [facility] 2022-09-12 01:41:00 O02140915268DiwgYett RcRf/4/+KB13048GzH+URH1oLTPFq Rp2Rbax+5MDM0vA6zJwNtSes7+n3954-23-30U30:41:00 [facility] ([facility])OB Antepartum Prog NoteREPORT#:[id number] REPORT STATUS: SignedDATE:09/12/22 TIME: 0141 PATIENT: LUIS EDMONDS UNIT #: [id number]#: [id number] [address]: [address] AGE: 21 SEX: F ATTEND: Luis Burciaga [facility] AUTHOR: Luis Burciaga MD * ALL edits [...] Result Date Time B/P Mean 78.0 09/11 2341 Pulse Ox 99 09/11 2341 B/P 116/56 09/11 2341 Temp 36.6 09/11 2341 Pulse 127 09/11 2341 Resp 16 09/11 [...] PPROMPlan: continue current managmnt at 0142 RPT #:[id number] OF REPORTPRProgress fspu1429-96-80E13:41:00G.QVEP04387585-7035IVKcctd able for patient pcyaBONUVSVBCUAHMP3513-80-45T89:42:58 [facility] 2022-09-11 22:15:00 [id number] K96yfvL7r3sDBaWQPjlZ1dLLlW6EF 6WSRHPvhMhZQrPuoRbxFCe5fZ9L7628-39-86N24:15:00 [facility] ([facility])OB Antepartum Prog NoteREPORT#:[id number] REPORT STATUS: SignedDATE:09/11/22 TIME: 2214 PATIENT: LUIS EDMONDS UNIT #: [id number]#: [id number] [address] AGE: 21 SEX: F ATTEND: [...] Result Date Time B/P Mean 83.0 09/11 1907 Pulse Ox 99 09/11 1907 B/P 115/62 09/11 1907 Temp 36.7 09/11 1907 Pulse 93 09/118 Resp 16 09/11 1907 Vital Signs Date Temp Pulse Resp B/P [...] PPROMPlan: continue current managmnt at 2218 RPT #:[id number] OF REPORTPRProgress lmwc7945-13-97C97:15:00G.HLSR22189402-0438NUVypso able for patient zhhoCGLMPJSUJGWHIL4927-58-55G68:19:18 [facility] 2022-09-11 07:18:00 M05538050868c+0q3XLV gZKBVmiItjA5o4UXtNne56pa+jLgz eZe6sYPOgHjUX9qktfQjD2OLVFY3710-45-83B87:18:00 [facility] ([facility] Progress NoteREPORT#:[id number] REPORT STATUS: SignedDATE:09/11/22 TIME: 717 PATIENT: LUIS EDMONDS UNIT #: [id number]#: [id number] [address]: [address] AGE: 21 SEX: F ATTEND: Luis Burciaga MDADM AUTHOR: Kahlil Moore MD * ALL edits or amendments must be made on the electronic/computer document * Review of SystemsAll systems rev neg: except as marked Objective GeneralVS/I O:Last Documented: Result Date Time B/P Mean 86.0 09/11 0556 B/P 122/69 09/11 0556 Pulse 82 09/11 05 Pulse Ox 97 09/10 603 Temp 36.8 09/10 06 Resp 16 09/10 603 PATIENT WEIGHT: Weight [...] pH (5.0 - 7.0) 6.0 Ur Specific [place] (1.005 - 1.030) 1.019 Urine Protein (NEGATIVE) [...] with you closelyFloor time 35min at 0724 [facility] #:[id number] OF REPORTPRProgress lwji5467-06-65S87:18:00G.FAYN20848691-1805ZKJpztq able for patient pfnyPYSFZLRJAHRFJA7895-27-88Q41:24:38 [facility] 2022-09-10 13:12:00 M78157640296TUefOA4n PYHh4H+bCJ5rkDtsix+qG8Gp7Z3b/ x5FxHdAXn+A8P4ltjN4gTdsoqoA6563-91-20G84:12:00 [facility] ([facility])MFM Progress NoteREPORT#:[id number] REPORT STATUS: SignedDATE:09/10/22 TIME: 1312 PATIENT: LUIS EDMONDS UNIT #: [id number]#: [id number] [address] AGE: 21 SEX: F ATTEND: [...] you closelyFloor time 35min at 1325 RPT #:[id number] OF REPORTPRProgress qgag5531-10-25R67:12:00G.FZPW62524347-0678YPKxkwq able for patient hgvkXEUMUIWYQHGEQV9921-38-15P25:25:53 [facility] 2022-09-10 08:19:00 O99024217329GpHJ8pkp BIILc59Q2Fos4uL4PDJyptZOubkdB YODIT+8GRVU0OPbL4p4uLEiLscFx1105-06-19C50:19:00 [facility] ([facility])OB Antepartum Prog NoteREPORT#:[id number] REPORT STATUS: SignedDATE:09/10/22 TIME: 08 PATIENT: LUIS EDMONDS UNIT #: [id number]#: [id number] [address] AGE: 21 SEX: F ATTEND: Luis Burciaga [facility] AUTHOR: Luis Burciaga MD * ALL edits [...] Resp B/P B/P Mean Pulse Ox FiO2 /-09/10 36.4-36.8 71-97 16 98-112/54-66 73.0-81.0 96-100 PATIENT [...] PPROMPlan: continue current managmnt at 0820 RPT #:[id number] OF REPORTPRProgress rwui4570-29-12R26:19:00G.NQYF95522587-5504WLYoesa able for patient gdxvONWODGZKFHODVD9476-17-71Y79:20:49 [facility] 2022-09-09 12:03:00 Y58456550361ndsunlYL kgQkH8lS5Ms0PdpOGatWVYUngq/SS +Le4WSrwKKee7uZ3d/ppD0dXzNv7001-04-76T79:03:00 [facility] ([facility])OB Admission / H PREPORT#:[id number] REPORT STATUS: SignedDATE:09/09/22 TIME: 120 PATIENT: LUIS EDMONDS UNIT #: [id number]#: [id number] [address] AGE: 21 SEX: F ATTEND: Luis Burciaga AUTHOR: Juany Carrillo MD * ALL edits or amendments must be made on the electronic/computer document * OB HistoryNotes:[facility] ([facility])OLGA Evaluation NoteREPORT#:[id number] REPORT STATUS: SignedDATE:09/07/22 TIME: 2242 PATIENT: LUIS EDMONDS UNIT #: [id number]#: [id number] [address] AGE: 21 SEX: F ATTEND: [...] : 0 Abortus: 0 Living children: 1 Comments:LAKEISHA urrent : EDC: 11/20/22 EGA (weeks/days): 29-3/7 [...] 86 09/07 2141 B/P Mean 84.0 09/07 2131 B/P 120/60 09/07 2131 Vital Signs Date Temp Pulse Resp B/P [...] pH (5.0 - 7.0) 7.0 Ur Specific [place] (1.005 - 1.030) 1.006 Urine Protein (NEGATIVE) [...] spent on counseling/coordination of care: yes at 3535 RPT #:[id number] OF REPORT Past HistoryAllergies:Uncoded Allergies:MARCUS ACID- THROAT SWELLING (Severe, 08/03/22) at 1200 RPT #:[id number] OF REPORTHPHistory and physical fdfajmowvyf4456-61-39S99:03:00G.XIPY19264950-1451 AVAvailable for patient plocZQBWVNKZWULNUB8056-15-69C29:08:19 [facility] 2022-09-09 09:03:00 L410838089864rkNkgt4 M+e1RIV4AyMGvKX8hR+SPMkzq+ix4 JCqF7UbSoXG0vR7rJlisUlarssI7712-08-14U88:03:00 [facility] ([facility])OB Antepartum Prog NoteREPORT#:[id number] REPORT STATUS: SignedDATE:09/09/22 TIME: 902 PATIENT: LUIS EDMONDS UNIT #: [id number]#: [id number] [address] AGE: 21 SEX: F ATTEND: [...] PPROMPlan: continue current managmnt at 0906 RPT #:[id number] OF REPORTPRProgress bwii0578-85-11U25:03:00G.FNZF75592344-7507EWZpynm able for patient wktwQPRBEHGTXHBUMO5188-66-44U33:06:33 [facility] 2022-09-09 08:58:00 O80876537156M99Cg0Be gq0yCPz/OETkHTDjlAWjiWVhFqMPn b96T08MuEO0RWHMTlouW9DY6aMR3041-43-85E10:58:00 [facility] ([facility])OB Antepartum Prog NoteREPORT#:[id number] REPORT STATUS: SignedDATE:09/09/22 TIME: 0858 PATIENT: LUIS EDMONDS UNIT #: [id number]#: [id number] [address] AGE: 21 SEX: F ATTEND: [...] 0124 B/P 98/56 09/09 0124 Pulse 86 02/22 0124 Pulse Ox 91 09/09 0056 Resp [...] PPROMPlan: continue current managmnt at 0859 RPT #:[id number] OF REPORTPRProgress sjlq1725-87-94T03:58:00G.ZWPH46053256-5513AZFawpd able for patient jmpqCCWHMJWNCLKQEC0110-82-89E98:59:52 [facility] 2022-09-09 07:45:00 Q44840887355M9RWQbQy aerrQEprDtwvm/wDEqfuyZPXjnhdA VN3T0rpLJ3XyPJ6euir/qX7JRrC9535-15-04U28:45:00 [facility] ([facility] Progress NoteREPORT#:[id number] REPORT STATUS: SignedDATE:09/09/22 TIME: 0745 PATIENT: LUIS EDMONDS UNIT #: [id number]#: [id number] [address]: [address] AGE: 21 SEX: F ATTEND: Luis Burciaga [facility] AUTHOR: Daniel Witt MD * ALL edits [...] you closelyFloor time 35min at 0748 RPT #:[id number] OF REPORTPRProgress pkpl5405-81-31Z07:45:00G.XRHM54693971-2731DVPldob able for patient xfcsAXRIAAZHGNQBWC1796-04-72W19:49:02 [facility] 2022-09-08 17:21:00 E04008524898oF0YgD/w 6z7ZudqGG1FDOLZlmbPCcEcKARAl9 bRMVxcY/sJJCtIbhLInFZHxt+Wk5801-19-77J32:21:00 [facility] ([facility])MFM Consultation NoteREPORT#:[id number] REPORT STATUS: SignedDATE:09/08/22 TIME: 1721 PATIENT: LUIS EDMONDS UNIT #: [id number]#: [id number] [address]: [address] AGE: 21 SEX: F ATTEND: Luis Burciaga [facility] AUTHOR: Daniel Witt MD * ALL edits [...] % (Auto) (14.0 - 32.0 %) 31.0 [place] % (Auto) (4.8 - 9.0 %) 8.1 Eos % (Auto) (0.3 - 3.7 %) 0.8 Baso % (Auto) (0.0 - 2.0 %) 0.3 Neut # (Auto) (2.0 - 7.6 x10 3/uL) 6.16 Lymph # (Auto) (1.0 - 3.8 x10 3/uL) 3.22 [place] # (Auto) (0.1 - 0.8 x10 3/uL) [...] - 0.1 x10 3/uL) 0.00 Laboratory Tests 09/07 2147 Other Body Source Membrane Rupture (NEGATIVE) POSITIVE H Laboratory Tests 09/07 234 Serology RPR (NONREACTIVE) NONREACTIVE Hep Bs Antigen (NonReactive INDEX) NON REACTIVE HIV 1 2 Antibody Screen (Nonreactive) Nonreactive Laboratory Tests 09/07 2124 Urines Urine Color (YEL/STRAW) STRAW Urine Appearance (CLEAR) CLEAR Urine pH (5.0 - 7.0) 7.0 Ur Specific [place] (1.005 - 1.030) 1.006 Urine Protein (NEGATIVE) [...] SEEN /LPF) TRACE MFM ConsultationPt seen and evaluatedIsabellmarlene is a 21yo G1 at 29w4d (EDC 11/20/2022) admitted for PPROM yesterdayShe is feeling well currently Continues with LOF of clear fluidDenies CTX or VBReports good FM PNC - significant for short interval, reports some episodes of low BPs, states she failed GCT but passed OGTT PMH - nonePSH - noneObHx - at term, had elevated BPs at termSocHx - neg f7OVEUKrkx - PNV VSSAF abd soft NTno CVAT1+ PE, 1+ DTRno Colleen's FHT: 120s, mod BTBV, + accels, rate mild variables, cat II labs reviewed Sono today: vtx, ant. placenta, EFW 9naz1px (1574g, 68%ile), nl range ISMA 15.4, nl [...] you closelyFloor time 80min at 1731 RPT #:[id number] OF REPORTIHMmqjerbfequz1458-29-23Y17:21:00G.PDOC2 7030307-8828FNLnhsgqdkr for patient mwepNJYEHWAOZTCGRS1828-16-10Y49:31:53 [facility] 2022-09-07 22:44:00 I47636129015/B+IZ35G wDWXptPR35NJTfMyRU2L108Lzjnrk fIqDkK+V+P0FS9xv793x16MMRLu2730-94-16U47:44:00 [facility] ([facility])OB Medical Screening ExamREPORT#:[id number] REPORT STATUS: SignedDATE:09/07/22 TIME: 4 PATIENT: LUIS EDMONDS UNIT #: [id number]#: [id number] [address] AGE: 21 SEX: F ATTEND: Luis Burciaga MDADM AUTHOR: Juany Carrillo MD * ALL edits or amendments must be made on the electronic/computer document * Medical Screening Exam Provider AttestationAttestation:The QMP MSE reviewed. Notified at 213Physician at bedside 2140 Comments:21 y/o female at 29-3/7 weeks who presents after several gushes of clearfluid from the vagina. Patient is certain that she did not leak urine. at 0557 RPT #:[id number] OF REPORTCLClinical axqe1426-78-36H41:44:00G.NNAV88780034-9684WMDvyyq able for patient kvujIKNQVCMRIPQTRX5871-16-00C51:57:57 [facility] 2022-09-07 22:43:00 [id number]/OePZ +vibnroOLOur6Jw7oq57meBBK4Pm/ YUH/5vrOZYIZw3ngEAvcP0xRuRD9684-84-50N77:43:00 [facility] ([facility])OLGA Evaluation NoteREPORT#:[id number] REPORT STATUS: SignedDATE:09/07/22 TIME: 2242 PATIENT: LUIS EDMONDS UNIT #: [id number]#: [id number] [address] AGE: 21 SEX: F ATTEND: [...] : 0 Abortus: 0 Living children: 1 Comments:LAKEISHA urrent : EDC: 11/20/22 EGA (weeks/days): 29-3/7 [...] pH (5.0 - 7.0) 7.0 Ur Specific [place] (1.005 - 1.030) 1.006 Urine Protein (NEGATIVE) [...] counseling/coordination of care: yes at 0549 RPT #:[id number] OF REPORTCLClinical fqun5090-19-64X41:43:00G.OCKM75104071-8512WUHxyho able for patient gmckYDQBQHFXORXDGO2564-59-52V37:49:56 [facility] 2022-08-06 11:00:00 [id number] YEyEeuSkSsPnrvDe89ntiDXQWCQTV bn1h22v11a+IFgFUfpS+jqPiPhg8043-29-25T12:00:00 [facility] ([facility])OB Medical Screening ExamREPORT#:[id number] REPORT STATUS: SignedDATE:08/06/22 TIME: 1100 PATIENT: LUIS EDMONDS UNIT #: [id number]#: [id number] ROOM/BED:: 02 AGE: 21 SEX: F ATTEND: Effie Solitario AUTHOR: Effie Solitario MD * ALL edits or amendments must be made on the electronic/computer document * Medical Screening Exam Provider AttestationAttestation:The QMP MSE reviewed. DATE 08/03/2019Notified at 1523Provider at bedside at 1523Comments:21 Y/O IUP 24 2/7 presents due to cramping. at 1101 RPT #:[id number] OF REPORTCLClinical lktj0601-49-62R29:00:00G.WQGY94087595-5378JKTdqla able for patient pgzqLJCUZTIOWTLNWF6424-71-04C44:02:07 [facility] 2022-08-06 11:00:00 [id number] sOvSXxfL57xge5hmfiJmskdSYoWom W/mKvZlHXdeO0wCFoWH30Kn0VMJ5802-30-28T69:00:00 [facility])OLGA Evaluation NoteREPORT#:[id number] REPORT STATUS: SignedDATE:08/06/22 TIME: 1100 PATIENT: LUIS EDMONDS UNIT #: [id number]#: [id number] ROOM/BED:: 02 AGE: 21 SEX: F ATTEND: Effie Solitario AUTHOR: Effie Solitario MD * ALL edits or amendments must be made on the electronic/computer document * OLGA HistoryChief complaint: crampingHPI:21 Y/O IUP 24 2/7 [...] (oz): 7.18Weight (kg): 75.500 Physical ExamAdditional comments:Gen: ZESq8Jvwtm: normal respiratory effortNeuro: Exam: alert, oriented h4Gcrhvsp: gravid, soft Uterine activity: Monitor: toco Frequency (description): None Frequency (minutes): PROFESSOR 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 24 weeks gestation of Free Text A P:Initial rtjn7218Pnhxpll presents due to cramping, will send UA and FFN Re-udtptilagb4095CF and FFN negative 21 y/o IUP 24 2 presents due to cramping. FFN and UA negative. Patent found to be hemodynamically stable with normal vital signs, category I strip and found not to be in labor. 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 Assessment: no evidence laborImpression: reactive NSTPlan: discharge homePlan discussed with: patient, nurse at 1106 RPT #:[id number] OF REPORTCLClinical mjbg4914-26-60G15:00:00G.SIPE72516617-2858HPUpsoc able for patient vciiBPNNEHZQDNRIEZ6049-52-15U55:07:07 [facility] 2022-03-06 16:08:00 [id number]+rd4CTt xtZrUrYrzajMe3ZB8fhBovzNALT20 KJBl6ZbdRufLM2XywxbaJXioAQ02324-35-75C10:08:00 [facility] ([facility])emergency provider reportreport#:[id number] report status: signeddate:03/06/22 time: 1608 patient: luis edmonds unit #: [id number]#: [id number] room/bed:age: 21 sex: f pcp phys: emily artis dt: 03/06/22 author: ghanshyam chavez md * all edits or amendments must be made on the electronic/computer document * hpi-ankle prob/inj free text hpi notesfree text hpi kopcp04-fsen-cbf female presents with right ankle and foot [...] impression: no fractures or dislocation impression by: kristian pickering m.d.radiology - xr ankle 3 + v rt 03/06 1556 report impression - status: signed entered: 03/06/2022 1605 impression: no fracture or dislocation impression by: kristian pickering m.d. re-evaluation mdm free text mdm notesfree text mdm tpqyc89-sajn-duu female presents with right ankle/foot injury. x-rays [...] 800 mg x1ed sta 03/06 1552 dc 08/ po 03/06 1553 1607 patient discharge departure vital signs/conditionvital signsfirst documented: result date time pulse ox 99 03/06 1506 b/p 115/75 08 1506 b/p mean 88 03/06 1506 o2 [...] asdir dme - crutches [facility] patient instructions ed ankle sprain (adult), ed foot sprain, ed ricereferralsprovider referral: cheli gamino md follow-up: as needed notes: orthopedic surgeon address: [address] [place] [address], [place] [address] provider group: primary care follow-up: 1 week departure leonel pcp listwork/school excuse variable restrictions apply through [...] ghanshyam chavez md on 03/06/22 at 1747rpt #:[id number] of reportEDEmergency department zvybiq0949-30-38Q08:08:00G.QUOV76153817-7647DIJzy ilable for patient lyshWBAWTIEQUOMLQS5757-91-87W64:47:46 [facility] 2021-11-11 00:46:00 Y27277723703zpIJ5s0b fF+tpo2aCIT4hbV4gRcoujCbi0xXm Ui0KxyAcshLIJnDvcwk3dSKHSMA7836-25-82Y39:46:00 [facility] PROVID[facility] REPORTREPORT#:[id number] REPORT STATUS: SignedDATE:11/11/21 TIME: 45 PATIENT: LUIS EDMONDS UNIT #: [id number]#: [id number] ROOM/BED:AGE: 20 SEX: F PCP PHYS: Emily [...] dysuria. Denies sick contacts. GeneralInitial Greet Date/Time 11/11/21 002 PresentationChief Complaint Pain, lumbarHx Obtained From Patient)( [...] Days #20 TABS Prov: 08/08/21 DC: 11/11/21 002 Therapy completed Discontinued Reported MedicationsPNV WITH FE [...] Ox 98 11/11 0018 B/P 112/59 11/11 001 B/P Mean 76 11/11 17 O2 Delivery Room air 11/11 17 Temp 36.4 11/11 17 Pulse 81 11/11 0018 Resp 18 11/11 17 Last Documented: Result Date Time Pulse Ox 100 04/26 0053 B/P 116/62 04/26 0053 B/P Mean 80 11/11 52 O2 Delivery [...] pH (5.0 - 7.0) 7 Ur Specific [place] (1.005 - 1.030) 1.010 POC Urine Protein [...] Ox 98 11/11 17 B/P 112/59 11/11 17 B/P Mean 76 11/11 17 O2 Delivery Room air 11/11 17 Temp 36.4 11/11 17 Pulse 81 11/11 17 Resp 18 11/11 17 Last Documented: Result [...] InstructionsReturn to the ER if symptoms worsenDeparture FormsALVIN PCP LIST Discharge NoteI have spoken with [...] or a call to 911. at 0107RPT #:[id number] OF REPORTEDEmereureka springs hospital department rjtxkq2421-62-59H51:46:00G.GVJP78538800-0939RRGls ilable for patient ygcdELWCPRJVQZFPPY7311-28-41L26:07:45 [facility] 2021-08-08 22:23:00 K81789368552ZEV4ghil mRocWPJjiJp/f+JKeDZb+VkZUaMtK fRRczC46HiLJwGVDb4ewwOu1G2e1193-96-49J81:23:00 [facility] ([facility])EMERGENCY PROVIDER REPORTREPORT#:[id number] REPORT STATUS: SignedDATE:08/08/21 TIME: 2222 PATIENT: LUIS EDMONDS UNIT #: [id number]#: [id number] ROOM/BED:AGE: 20 SEX: F PCP PHYS: Emily Artis AUTHOR: Ghanshyam Chavez MD * ALL edits or amendments must be made on the electronic/computer document * HPI-Recheck W/B/S GeneralInitial Greet Date/Time 08/08/212208 PresentationChief Complaint Bleeding from R breast Free Text HPI NotesFree Text HPI Ayrqt92-zgmn-grg female who is 4 months presents with [...] 08/08 Review of Vital Signs Reviewed Focused PEGeneral/Const General/Const Awake, Alert, No acute distress, Well appearing, Not toxic appearingSkin Skin Color NL Additional PEResp/Chest Text/Dict NotesR breast with increased warmth, w/o skin changes. Breast Tenderness R. Negative: Dimpling R, Discoloration R, Erythema R, Fluctuance R, Mass R, Nipple discharge R, Skin changes L. Re-Evaluation MDM Free Text MDM NotesFree Text MDM Nlluw82-kdkf-fmg female presents with blood in breastmilk from [...] or a call to 911. at 0001RPT #:[id number] OF REPORTEDEmergency department ywnlys2117-95-34X50:23:00G.HJQN30952949-5872DMPer ilable for patient rrvyBEQEPMWCXFCROE8571-91-19L00:01:57 [facility] 2021-03-28 09:04:00 NSrbdfjazoa520692471 uyUduWxFZOo2sto8ZEA+uKTCFEOmC EQpxkO6Dq7p/9nH0mUaXEW3gqwlLDvNamM6645-68-22I34:0 4:00 [facility] ([facility])OB Disch PostpartumREPORT#:[id number] REPORT STATUS: SignedDATE:03/28/21 TIME: 0904 PATIENT: LUIS EDMONDS UNIT #: [id number]#: [id number] [address] AGE: 20 SEX: F ATTEND: [...] noted below under Provider comments. Delivery date infant A: 03/26/21 Delivery time A: 1807Birthweight (gm) A: 3200Feeding preference: Gender A: FemaleApgar 1 minute A: 8Apgar 5 minutes A: 9Apgar 10 minutes infant A: Provider comments on imported nursing data: [] Plan: routine care, discharge today Discharge InstructionsInstructions: routine instr sheet givenDiet: Resume Home Diet/FeedsActivity: Resume Normal ActivityAdditional discharge routines: None at 0905 RPT #:[id number] OF REPORTOBObstetric wfdx2810-08-67V24:04:00G.KVGX43260200-5485SITgvoi able for patient pjjmASELIGDODFFEEL8454-21-09L71:05:34 [facility] 2021-03-28 09:03:00 BBliexxohmi59497543z 5lmDo+kDK4AHr/jv4+IzQaKuREKa2 qJBitladuBD8Zto3mDhvX0KQl8/5dQPtxd3260-83-83Y45:0 3:00 [facility] ([facility])OB Postpart Progr NoteREPORT#:[id number] REPORT STATUS: SignedDATE:03/28/21 TIME: 0903 PATIENT: LUIS EDMONDS UNIT #: [id number]#: [id number] [address] AGE: 20 SEX: F ATTEND: [...] progressPlan: routine care, discharge today at 0904 [facility] #:[id number] OF REPORTPRProgress Ierq8994-67-61K87:03:00G.LDDL22506145-4372SJDztwv able for patient cvioYBNYGLWXOWRWKM1744-86-80J01:04:53 [facility] 2021-03-27 09:21:00 KUkbmbtharf48516422x GUW0hKFL9f2gxSoDrF9O9926xkHs1 lg2c5AEp5z+C6zrnsfwFMucS4YFRbqEBr89318-86-83Z45:2 1:00 [facility] ([facility])OB Postpart Progr NoteREPORT#:[id number] REPORT STATUS: SignedDATE:03/27/21 TIME: 920 PATIENT: LUIS EDMONDS UNIT #: [id number]#: [id number] [address] AGE: 20 SEX: F ATTEND: [...] 03/27 0734 36.9 74 17 124/82 97 09/09 0440 36.9 69 16 116/75 99 09/09 0100 37.0 83 16 108/68 97 09/08 [...] 09/08 1142 94.0 09/08 1142 65 120/78 03/26 1139 36.7 16 03/26 1012 89.0 03/26 1012 36.7 72 16 120/71 03/26 0944 95.0 03/26 0944 78 121/79 PATIENT WEIGHT: Weight (lb): [...] % (Auto) (14.0 - 32.0 %) 24.9 [place] % (Auto) (4.8 - 9.0 %) 9.4 H Eos % (Auto) (0.3 - 3.7 %) 0.6 Baso % (Auto) (0.0 - 2.0 %) 0.2 Neut # (Auto) (2.0 - 7.6 x10 3/uL) 8.09 H Lymph # (Auto) (1.0 - 3.8 x10 3/uL) 3.13 [place] # (Auto) (0.1 - 0.8 x10 3/uL) [...] nml progressPlan: routine care at 0922 RPT #:[id number] OF REPORTPRProgress Yudx8991-84-73J00:21:00G.GEUF46541256-3647JGFccme able for patient svafQJKYJKUXXIOHJO8168-28-80T57:22:52 [facility] 2021-03-26 18:49:00 COvrthyjcnb62271468m 5LljyGMUW65ztOcMnO+gZLRXwm52g S0ThmNOdqO38b/C2F+3ae52dmD9x8tOytw8228-51-47U58:4 9:00 [facility])OB Delivery NoteREPORT#:[id number] REPORT STATUS: SignedDATE:03/26/21 TIME: 184 PATIENT: LUIS EDMONDS UNIT #: [id number]#: [id number] [address] AGE: 20 SEX: F ATTEND: [...] Low Risk for Hemorrhage. Delivery date A: 03/26/21 Delivery time A: 1807Birthweight (gm) A: 3200Weight (lb) A: Weight (oz) infant A: Gender A: FemaleApgar 1 minute infant A: 5 minutes infant A: 10 minutes A: Cord pH obtained A: Vacuum time A: Vacuum # pulls A: Vacuum # popoffs infant A: QBL at delivery: Provider comments on [...] loss at delivery: 50 at 1852 RPT #:[id number] OF REPORTOBObstetric jokm3849-74-21R92:49:00G.FMRY19873151-6539AINnvzm able for patient kxkmPAQJSTKAYIPSJY7767-14-78Q53:53:12 [facility] 2021-03-26 08:25:00 R564459584075AF0nbRE QDhAPHlkyKHAswU6EAWwTMKvWz12u 3YOdAMCv3rv00mcejlAXiNvyKP+8571-14-11B76:25:00 [facility] ([facility])DT History PhysicalREPORT#:[id number] REPORT STATUS: SignedDATE:03/26/21 TIME: 824 PATIENT: LUIS EDMONDS UNIT #: [id number]#: [id number] [address] AGE: 20 SEX: F ATTEND: Luis Burciaga [facility] AUTHOR: Luis Burciaga MD * ALL edits or amendments must be made on the electronic/computer document * History PhysicalHistory PhysicalPlease care records and office H P at 2112 RPT #:[id number] OF REPORTHPHistory and physical fqfpokroufi6062-35-56F03:25:00G.DJEW24764272-9262 AVAvailable for patient gphhNRCGFUDIHTJQMV7013-61-33O81:13:12 [facility] 2021-03-12 21:16:00 DKgzvbhtcsz15748203v RHQpfGMy4HWPoDnS3Aj+wQ6QIzuCU XKPF48vcGyQSuQCZ+QeyTAPV03ULwLcpHE3418-67-45H22:1 6:00 [facility] ([facility])OB Medical Screening ExamREPORT#:[id number] REPORT STATUS: SignedDATE:03/12/21 TIME: 2115 PATIENT: LUIS EDMONDS UNIT #: [id number]#: [id number] ROOM/BED:: 02 AGE: 20 SEX: F ATTEND: Effie Solitario AUTHOR: Effie Solitario MD * ALL edits or amendments must be made on the electronic/computer document * Medical Screening Exam Provider AttestationAttestation:The QMP MSE reviewed. Provider at bedside at 2114Comments:20 y/o GP0 IUP 35 4/7 presents due to leaking of fluid and contractions. at 2152 RPT #:[id number] OF REPORTOBObstetric gjmi1169-87-80U49:16:00G.GDGU57953952-2966LJCpzxf able for patient zcmtKLWJYZVTIRBBWL5563-95-96Q89:52:56 [facility] 2021-03-12 21:16:00 GUbbogncsrs03832311l md6Oj1kSpg2ddLzjpkoquXKQvYbtu 4xRMydXrL1pajypYoibwgaC4em7veQZSVU5217-85-59P23:1 6:00 [facility])OLGA Evaluation NoteREPORT#:[id number] REPORT STATUS: SignedDATE:03/12/21 TIME: 2115 PATIENT: LUIS EDMONDS UNIT #: [id number]#: [id number] [address] AGE: 20 SEX: F ATTEND: Effie Solitario MDA AUTHOR: Effie Solitario MD * ALL edits [...] Weight (oz): Weight (kg): Physical ExamAdditional comments:Gen: UFSs2Flcan: normal respiratory effortNeuro: Exam: alert, oriented t9Ashsvvm: gravid, soft Uterine activity: Monitor: toco Frequency (description): uterine irritability Frequency (minutes): 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 35 weeks gestation of Free Text A P:initial lhab5520Ldbjtt presents due to gush of fluids and contractions. Will send UA and amnisure. Re-qpvyzvrikn6876Tjayuin BPP 2355Awaiting BPP results. 0050Still awaiting BPP results 0105BPP 8/8 ISMA 8, no cervical change 20 y/o GP0 IUP 35 4/7 presented due to leaking of fluid and contractions, amnisure negative. Patent found to be hemodynamically stable with normal vital signs, category I strip and found not to be in labor. 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 Assessment: no evidence laborImpression: reactive NSTPlan: discharge homePlan discussed with: patient, nurse at 0104 RPT #:[id number] OF REPORTOBObstetric vpgz4945-93-11Z41:16:00G.WGKY00394035-4587DALvkyg able for patient htrvHQSFMDAXKXVWAK0750-58-36K94:05:05 [facility] 2021-03-01 06:09:00 LIxkzxrdwll29132461D 5QZj+YfdFhDtzQnUcovEl/O6cmJTR yZyg+ll6t2Ho3LXnKTuZjV+NELIKYlwG0L0559-94-21L38:0 9:00 [facility] ([facility])OLGA Evaluation NoteREPORT#:[id number] REPORT STATUS: SignedDATE:03/01/21 TIME: 06 PATIENT: LUIS EDMONDS UNIT #: [id number]#: [id number] [address] AGE: 20 SEX: F ATTEND: Luis Burciaga [facility] AUTHOR: Effie Solitario MD * ALL edits [...] B/P Mean 85.0 03/01 0542 B/P 111/72 / 0542 Pulse 106 / 0542 Temp 98.1 03/01 0540 Resp 16 03/01 0540 Vital Signs Date Temp Pulse Resp B/P B/P Mean Pulse Ox FiO2 / 98.1 106 16 111/72 85.0 PATIENT WEIGHT: Weight (lb): Weight (oz): Weight (kg): Physical ExamAdditional comments:Gen: MBIg1Romwl: normal respiratory effortNeuro: Exam: alert, oriented a1Wakvkns: gravid, soft Uterine activity: Monitor: toco Frequency (description): irregular Frequency (minutes): PROFESSOR OF HISTORICAL THEOLOGY: Normal exteral genitalia Cervical/ exam: Dilatation (cm): 0.5 Effacement (%): 50 station: -4 Presentation: VX Membrane status:IM FHR evaluation: FHR category: category I Diagnosis, Assessment Plan Diagnosis, Assessment PlanProblem List/A P: 1. 34 weeks gestation of 2. Decreased movement Free Text A P:initial odnx3406Qnizyur presents due to decreased movements and pelvic [...] AT HER APT WEDNESDAY. at 0854 RPT #:[id number] OF REPORTOBObstetric tjru0464-99-35W03:09:00G.GEYH16337715-9309YXIxqtz able for patient hveiIDCKZSAWHZPHZJ0253-06-24H11:54:49 [facility] 2021-03-01 06:09:00 GCqsddtlild46064232B ndjBXMhUWCmmAPaciM+KoEohkEQ3X mC8M3jiRNa0IFCCkbqXcYV6juhnhVRIJ+w4656-67-00U86:0 9:00 [facility] ExamREPORT#:[id number] REPORT STATUS: SignedDATE:03/01/21 TIME: 06 PATIENT: LUIS EDMONDS UNIT #: [id number]#: [id number] [address] AGE: 20 SEX: F ATTEND: Luis Burciaga MDADM AUTHOR: Effie Solitario MD * ALL edits or amendments must be made on the electronic/computer document * Medical Screening Exam Provider AttestationAttestation:The QMP MSE reviewed. Provider at bedside at 0600Comments:IUP 34 0/7 presents due to decreased movements and pelvic pressure. at 0643 RPT #:[id number] OF REPORTOBObstetric ibsw5923-00-84O23:09:00G.SDNX56056193-2198UZBqhtj able for patient kjecNEGLVWHKNXZRPJ9538-32-08W25:43:28 [facility] 2021-03-01 06:09:00 YIuylwsosxe52600322I 19m80YJ0Dzt6HVEHge4RjaBXUbFlX KaTbXIQlAOBeNLXNwZQhq4R0oMoj+5on3h8887-93-97P14:0 9:00 [facility] ([facility])OLGA Evaluation NoteREPORT#:[id number] REPORT STATUS: SignedDATE:03/01/21 TIME: 608 PATIENT: LUIS EDMONDS UNIT #: [id number]#: [id number] [address] AGE: 20 SEX: F ATTEND: Luis Burciaga [facility] AUTHOR: Effie Solitario MD * ALL edits [...] 1 TAB PO DAILY 12/25/20 03/01/21 FUMARATE/FA 3790 4307 () Strength: 1 EACH TAB AllergiesUncoded Allergies:MALIC [...] Weight (oz): Weight (kg): Physical ExamAdditional comments:Gen: FSVn4Mylin: normal respiratory effortNeuro: Exam: alert, oriented h6Woeguco: gravid, soft Uterine activity: Monitor: toco Frequency (description): irregular Frequency (minutes): PROFESSOR OF HISTORICAL THEOLOGY: Normal exteral genitalia Cervical/ exam: Dilatation (cm): 0.5 Effacement (%): 50 station: -4 Presentation: VX Membrane status:IM FHR evaluation: FHR category: category I Diagnosis, Assessment Plan Diagnosis, Assessment PlanProblem List/A P: 1. 34 weeks gestation of 2. Decreased movement Free Text A P:initial skac4736Vherywe presents due to decreased movements and pelvic pressure. Will order BPP and UA. Dr Chavez will assume care at 0700 at 0647 RPT #:[id number] OF REPORTOBObstetric chtd0036-39-94U10:09:00G.NWDN63751030-4978JXKbqdn able for patient psjaJZTDYIDIQWDWFX3576-61-45W97:47:48 [facility] 2021-02-17 15:34:00 UWoatsqgqkd056284353 AYqBLCYEVYeCL8CDoxmvswVE6GyxA ZA8BHvoql0N10dMwq38pk1lMIUi20YyyXp8253-06-55U54:3 4:00 [facility] ([facility])OB Medical Screening ExamREPORT#:[id number] REPORT STATUS: SignedDATE:02/17/21 TIME: 1533 PATIENT: LUIS EDMONDS UNIT #: [id number]#: [id number] [address] AGE: 20 SEX: F ATTEND: Effie Solitario DT: AUTHOR: Effie Solitario MD * ALL edits or amendments must be made on the electronic/computer document * Medical Screening Exam Provider AttestationAttestation:The QMP MSE reviewed. Provider at bedside at 1537Comments: 20 y/o IUP 32 2/7 presents due to gush of fluids and cramping. at 1615 RPT #:[id number] OF REPORTOBObstetric bzqn9758-41-42B64:34:00G.LVVK97739983-6290EHDphgr able for patient ltudGREHUQGXJOSKDK4621-14-96P50:15:37 [facility] 2021-02-17 15:34:00 FNmzwtopamz14681248l 0Vz427z1L5uRU/poNRHWeselKKSnj lG5Zpk7lM+7LabiPlQLLOqmEO8qO+MPKAH6017-45-48D56:3 4:00 [facility] ([facility])OLGA Evaluation NoteREPORT#:[id number] REPORT STATUS: SignedDATE:02/17/21 TIME: 1533 PATIENT: LUIS EDMONDS UNIT #: [id number]#: [id number] ROOM/BED:: 02 AGE: 20 SEX: F ATTEND: Effie Solitario DT: AUTHOR: Effie Solitario MD * ALL edits or amendments must be made on the electronic/computer document * OLGA HistoryChief complaint: uterine contractions, suspected ruptured membHPI:20 y/o IUP 32 2/ presents due to gush of fluids and [...] GeneralVS:Last Documented: Result Date Time Temp 98.3 08/ 1536 Resp 16 / 1536 B/P Mean 76.0 08/ 1524 Pulse Ox 99 / 1524 B/P 105/59 08/ 1524 Pulse 122 / 1524 Vital Signs Date Temp Pulse Resp B/P B/P Mean Pulse Ox FiO2 / 98.3 122 16 105/59 76.0 99 PATIENT WEIGHT: Weight (lb): Weight (oz): Weight (kg): Physical ExamAdditional comments:Gen: YUEe3Gqhsj: normal respiratory effortNeuro: Exam: alert, oriented j9Dyltfsb: gravid, soft Uterine activity: Monitor: toco Frequency (description): none Frequency (minutes): PROFESSOR OF HISTORICAL THEOLOGY: Normal exteral genitalia Cervical/ exam: Speculum exam: No pooling of amniotic fluid Dilatation (cm): closed Effacement (%): thick station: high Presentation: VX Membrane status:IM, amnisure FHR evaluation: FHR category: category I ResultsFindings/Data:Laboratory Tests: 02/17 1530 Miscellaneous Fibronectin (NEGATIVE) NEGATIVE Other Body Source Membrane Rupture (NEGATIVE) NEGATIVE Diagnosis, Assessment Plan Diagnosis, Assessment PlanProblem List/A P: 1. 32 weeks gestation of Free Text A P:initial mxip7141Wjyvvtx presents due to gush of fluids and contractions. Will send FFN, amnisure and UA. Re-lmskiwcepu8379Amgcrtjm and FFN negative, no contractions 20 y/o [...] understanding will have her follow-up with her RAILWAY SIGNAL OPERATOR. Assessment: no evidence laborImpression: reactive NSTPlan: discharge homePlan discussed with: patient, nurse [facility] RPT #:[id number] OF REPORTOBObstetric guty5700-53-36O32:34:00G.PSPR18906797-0470WGUbdeq able for patient gnbqLARATNJUXECJSH8688-09-63B66:51:12 [facility] 2021-02-12 21:22:00 QVaqkptpffv93551442g 0VyWWuuq8D1osgNnQhc8GBzN6Hoyj 20LrGeSvqpW6IJQtNzoKfqsVi1AzxGn7Cb5685-76-48X28:2 2:00 [facility] ExamREPORT#:[id number] REPORT STATUS: SignedDATE:02/12/21 TIME: 2121 PATIENT: LUIS EDMONDS UNIT #: [id number]#: [id number] ROOM/BED:: 02 AGE: 20 SEX: F ATTEND: Effie Solitario DT: AUTHOR: Effie Solitario MD * ALL edits or amendments must be made on the electronic/computer document * Medical Screening Exam Provider AttestationAttestation:The QMP MSE reviewed. Provider at bedside at 0754Comments:20 y/o IUP 32 0/7 presents due to complaind of abdominal and epigastric pain, nausea and decreased movements. at 0915 RPT #:[id number] OF REPORTOBObstetric rlrm8944-66-32B84:22:00G.PQEO44488147-7954OFJqipj able for patient tguxKEAWRXEJDDAYGA6011-17-97V08:15:38 [facility] 2021-02-12 21:21:00 BFjwqtlkemc97976396V Nnsnk0RiEgqXjmnfD1eyaPqphcT9u 8wPcFT8jawqWv6E+6mLvm00YpLnkxSLKDA7952-17-23M72:2 1:00 [facility])OLGA Evaluation NoteREPORT#:[id number] REPORT STATUS: SignedDATE:02/12/21 TIME: 2120 PATIENT: LUIS EDMONDS UNIT #: [id number]#: [id number] ROOM/BED:: 02 AGE: 20 SEX: F ATTEND: [...] (oz): Weight (kg): 75.75 Physical ExamAdditional comments:Gen: OGHa6Iksda: normal respiratory effortNeuro: Exam: alert, oriented o4Ttepstd: gravid, soft Uterine activity: Monitor: toco Frequency (description): none Frequency (minutes): PROFESSOR OF HISTORICAL THEOLOGY: Normal exteral genitalia Cervical/ exam: Speculum exam: no discharge Dilatation (cm): closed Effacement (%): thick station: high FHR evaluation: FHR category: category I ResultsFindings/Data:Laboratory Tests: 02/12 Miscellaneous Fibronectin (NEGATIVE) NEGATIVE Urines Urine Color (YEL/STRAW) YELLOW Urine Appearance (CLEAR) CLEAR Urine pH (5.0 - 7.0) 6.0 Ur Specific [place] (1.005 - 1.030) 1.006 Urine Protein (NEGATIVE) [...] weeks gestation of Free Text A P:initial mbbx0529Pnewmje presents due to contractions and decreased movements, will order BPP and labs. Re-vvvujmwvbe3540Xsjuqqf refers feeling movements. BPP 8/8, cat I [...] understanding will have her follow-up with her RAILWAY SIGNAL OPERATOR. Assessment: no evidence laborImpression: reactive NSTPlan: discharge homePlan discussed with: patient, nurse at 0921 [facility] #:[id number] OF REPORTOBObstetric drwx4229-48-61I38:21:00G.BAXS97007124-9715NTLaetx able for patient uryaBCJSCOPCQOAIZE2134-38-88B93:21:58 [facility] 2021-01-29 03:41:00 YGvaqjdqohp05527085z 3jB6x//I1oMLZVkkRzKri2zxICKXN RlcoquOYO8Qt0+Y0NFIXDnDbHZb3A58g7M4107-54-89V33:4 1:00 [facility] ([facility])OLGA Evaluation NoteREPORT#:[id number] REPORT STATUS: SignedDATE:01/29/21 TIME: 034 PATIENT: LUIS EDMONDS UNIT #: [id number]#: [id number] [address] AGE: 20 SEX: F ATTEND: Dottie Chavez [facility] AUTHOR: Dottie Chavez MD * ALL edits [...] 1 TAB PO DAILY 12/25/20 01/29/21 FUMARATE/FA 7699 [id number] () Strength: 1 EACH TAB AllergiesUncoded Allergies:MALIC [...] pH (5.0 - 7.0) 7.0 Ur Specific [place] (1.005 - 1.030) 1.010 Urine Protein (NEGATIVE) [...] f/u as scheduled with primary OB in [place], [place] at 0355 RPT #:[id number] OF REPORTOBObstetric char1313-33-18D49:41:00G.QVAQ92285691-2845FACqmbg able for patient ahujDMLFSJKAEBYZKK4032-10-67T49:55:33 [facility] 2021-01-29 03:39:00 [id number] XjPejnkEIcudjk85L2RV96xBTFfOl QsKK8wDSEmGL4lfS01oJEU0mTXmUkS+Gda6949-06-45M61:3 9:00 [facility] ExamREPORT#:[id number] REPORT STATUS: SignedDATE:01/29/21 TIME: 338 PATIENT: LUIS EDMONDS UNIT #: [id number]#: [id number] [address] AGE: 20 SEX: F ATTEND: Dottie Chavez [facility] AUTHOR: Dottie Chavez MD * ALL edits or amendments must be made on the electronic/computer document * Medical Screening Exam Provider AttestationComments:20 y/o G1 @ 29w with lower abd cramping as well as constant left flank pain on side for 2 days. reports +FM , no lof/rom. no vb. at 0341 RPT #:[id number] OF REPORTOBObstetric ldvy9441-70-63A63:39:00G.FHNL63350134-2012EBKkbqw able for patient sgpmSTNPARYSEAONZB0005-12-68H96:41:12 [facility] 2020-12-25 16:25:00 QBgmabdrsof83810006/ PlovFS/pHukr7CdWr/MfRM+b64vDb yMEvzR3PWH6DfQ1mr6mqRjZ66S8ao3A57b5814-36-70L73:2 5:00 [facility] ([facility] Evaluation NoteREPORT#:[id number] REPORT STATUS: SignedDATE:12/25/20 TIME: 1625 PATIENT: LUIS EDMONDS UNIT #: [id number]#: [id number] [address] AGE: 20 SEX: F ATTEND: [...] She was told in prior u/s at [facility] that ISMA was low, she did have [...] toco for cxn.Will f/u at 1632 RPT #:[id number] OF REPORTOBObstetric wcgq9028-59-45L66:25:00G.YILB59951608-1818OBGzkmv able for patient gvdxQXTWYLONEMCXKC9288-36-18M50:32:32 [facility] 2020-12-25 16:25:00 IPhgulzefnf15859228c hhPxHBw0JrU+mCPPQVeNUNcz647HZ F8UgM8P1JVEb75ZUrNocp7zuZmN6lojKBT8937-32-76G99:2 5:00 [facility] ([facility])OLGA Evaluation NoteREPORT#:[id number] REPORT STATUS: SignedDATE:12/25/20 TIME: 1625 PATIENT: LUIS EDMONDS UNIT #: [id number]#: [id number] [address] AGE: 20 SEX: F ATTEND: [...] She was told in prior u/s at [facility] that ISMA was low, she did have [...] Pulse Ox 98 12/25 1527 Pulse 104 / 1527 B/P Mean 86.0 12/25 1521 B/P 117/68 /09 1521 Vital Signs Date Temp Pulse Resp [...] her OB this week. at 1807 RPT #:[id number] OF REPORTOBObstetric bfde9835-73-95A62:25:00G.JJLO80336020-1370OHEfrod able for patient hsiuDHHAILCRKGNHEB3012-84-26D30:08:01 [facility] 2020-12-25 16:24:00 WGlvmeeybzu38994743A 2dwO7y/63VgCZIFQlV+TPoX+ekg5a Bb0k3+NjwoABA8DreO5xUfQU3jRXzj/ImX1434-42-20X74:2 4:00 [facility] ([facility])OB Medical Screening ExamREPORT#:[id number] REPORT STATUS: SignedDATE:12/25/20 TIME: 1624 PATIENT: LUIS EDMONDS UNIT #: [id number]#: [id number] [address] AGE: 20 SEX: F ATTEND: Pearl Chavez DOADM AUTHOR: Pearl Chavez DO * ALL edits or amendments must be made on the electronic/computer document * Medical Screening Exam Provider AttestationComments:Pt triaged at 1610. at 1625 RPT #:[id number] OF REPORTOBObstetric vsed6903-05-84P97:24:00G.KQSW03313013-8502HPXwjil able for patient ojfhBFDKWGYWCDRFGV8650-78-37S31:25:31 [facility] 2020-11-23 00:54:00 WPquxkajdjl12428193I Lxs13Azy0eZWADZXNLkNCFPOLVMro PsmsCgRbg+XI+RXOTTAwEi3rfB5VGFogpi0380-36-04N79:5 4:00 [facility] VisitRE[facility][id number] REPORT STATUS: SignedDATE:11/23/20 TIME: 0054 PATIENT: LUIS EDMONDS UNIT #: [id number]#: [id number] [address] AGE: 19 SEX: F ATTEND: Brittnee Ramirez MDADM DT: AUTHOR: Brittnee Ramirez MD * ALL [...] and reassured. Patient recieves PNC at the [facility]. Did not need to wear a ad [...] type ordered Ultrasound complete at 0107 RPT #:[id number] OF REPORTOBObstetric eacm0006-03-82B47:54:00G.CTBN30412239-0098QGZhavl able for patient jryuSXQEURJNZDYCQV7793-41-87P96:08:00 [facility] 2020-10-05 03:31:00 ZGnfeqdgiqu39462132x lYHw91OH0Y4qgIdNgSxUcBDxnGy9L oJ6TWx8kH7oNBXJvq7JGTZ+PezHBgoWRT28803-27-39L35:3 1:00 [facility] ([facility])EMERGENCY PROVIDER REPORTREPORT#:[id number] REPORT STATUS: SignedDATE:10/05/20 TIME: 330 PATIENT: LUIS EDMONDS UNIT #: [id number]#: [id number] ROOM/BED:AGE: 19 SEX: F PCP PHYS: Elina Rome AUTHOR: Nirav Nolan MD * ALL edits or amendments must be made on the electronic/computer document * HPI- Female Peds Free Text HPI NotesFree Text HPI Lqbjn74-brik-vkc female G1 approximately 10 weeks by dates [...] Result Date Time Pulse Ox 99 10/05 013 B/P 110/67 10/05 138 B/P Mean 81 10/05 138 O2 Delivery Room air 10/05 138 Temp 37.2 10/05 138 Pulse 99 10/05 013 Resp 18 10/05 138 Last Documented: Result Date Time Pulse Ox 99 10/05 400 B/P 108/65 10/05 400 B/P Mean 79 10/05 400 Pulse 81 10/05 400 Resp 16 10/05 400 O2 Delivery Room [...] deferred Interpretation Diagnostics Lab Results InterpretationResultsLaboratory Tests 10/05/20 0210:[Embedded Image Not Available]Laboratory Tests: 10/05 0210 Chemistry [...] % (Auto) (28.0 - 48.0 %) 33.4 [place] % (Auto) (3.0 - 15.0 %) 6.3 Eos % (Auto) (1.0 - 8.0 %) 1.1 Baso % (Auto) (0.0 - 2.0 %) 0.5 Neut # (Auto) (2.0 - 3.2 x10 3/uL) 7.28 H Lymph # (Auto) (1.0 - 3.8 x10 3/uL) 4.[address] [place] # (Auto) (0.1 - 0.8 x10 3/uL) [...] x10 3/uL) 0.00 Miscellaneous Maternal Serum HCG 86249.3 Urines Urine Color (YEL/STRAW) YELLOW Urine Appearance (CLEAR) CLEAR Urine pH (5.0 - 7.0) 5.0 Ur Specific [place] (1.005 - 1.030) 1.017 Urine Protein (NEGATIVE) [...] 209 Report Impression - Status: SIGNED Entered: 10/05/2020 0222 IMPRESSION: Normal single live intrauterine at 13 [...] decision-making. Re-Evaluation MDM Re-Evaluation/ProgressRe-Evaluation/Progress Time of Re-Eval 033 Re-Eval Status Improved Plan Post Re-Eval Plan discharge ED CourseMedication(s) OrderedMedication(s) Ordered:Autonomic Drugs Sig/Victoriano Start time Last Medication Dose Route Stop Time Status Admin Dicyclomine HCl 20 MG X1ED STA 10/05 0145 DC 10/05 PO 10/05 0146 0157 Electrolytic, Caloric, [...] )( Discharged to Home Yes )( Time 0333 )( Date 10/05/20 Discharge/Care PlanCounseled Regarding Diagnosis, [...] ED Possible Miscarriage...Additional InstructionsTYLENOL DIRECTED at 2314RPT #:[id number] OF REPORTEDEmergency department feobmb3404-25-49Z36:31:00G.YWFG56192956-1973DRZof ilable for patient rawqPOVTSVEXKLOLFP5830-17-98L83:14:28 [facility] 2020-08-22 20:42:00 PVohyfwbnmc03747472F IkcQ5Itkvqdcohf0K8+EMmJgLVn1y /6jmCYT2Cys29Xy/aQXuPbF8rBhXu8gT0H8892-29-80C90:4 2:00 [facility] PROVID[facility] REPORTREPORT#:[id number] REPORT STATUS: SignedDATE:08/22/20 TIME: 2041 PATIENT: LUIS EDMONDS UNIT #: [id number]#: [id number] ROOM/BED:AGE: 19 SEX: F PCP PHYS: Elina Rome AUTHOR: Cathy Bruce * ALL edits or amendments must be made on the electronic/computer document * HPI- Female Free Text HPI NotesFree Text HPI Pjzsv73-zgsw-wvp female G1, 6 weeks EGA with LMP12/21 presents to ED after positive test cruise consultant'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 She reports associated nausea, [...] 08/22 2241 Pulse 80 08/22 2241 Resp 08/22 Review of Vital Signs Reviewed Focused PEGenitourinary [...] No palpable masses or pulsetile masses. Negative Mobile Sign. [facility]: [facility]. No swelling or deformity. [...] % (Auto) (28.0 - 48.0 %) 30.6 [place] % (Auto) (3.0 - 15.0 %) 5.9 Eos % (Auto) (1.0 - 8.0 %) 0.6 L Baso % (Auto) (0.0 - 2.0 %) 0.7 Neut # (Auto) (2.0 - 3.2 x10 3/uL) 6.51 H Lymph # (Auto) (1.0 - 3.8 x10 3/uL) 3.22 [place] # (Auto) (0.1 - 0.8 x10 3/uL) [...] x10 3/uL) 0.00 Miscellaneous Maternal Serum HCG 29284.6 Urines Urine Color (YEL/STRAW) STRAW Urine Appearance (CLEAR) CLEAR Urine pH (5.0 - 7.0) 6.0 Ur Specific [place] (1.005 - 1.030) 1.008 Urine Protein (NEGATIVE) [...] or a call to 911. at 2346RPT #:[id number] OF REPORTEDEmergency department uweikl5790-16-45Q96:42:00G.YICJ79714699-6339LOElm ilable for patient qeblIUHEVSWSXABLSR2086-01-52J39:47:09 [facility] 2020-08-22 20:42:00 MFqsnfjmmij92849545k KrxVojcdU6sZXf6CGX4eJ/9KSgmAm QtpC+zqxF7d1EuWllhdEDxNftpwk6QL9DF9708-70-34B39:4 2:00 [facility] PROVID[facility] REPORTREPORT#:[id number] REPORT STATUS: SignedDATE:08/22/20 TIME: 2041 PATIENT: LUIS EDMONDS UNIT #: [id number]#: [id number] ROOM/BED:AGE: 19 SEX: F PCP PHYS: Elina Rome AUTHOR: Cathy Bruce * ALL edits or amendments must be made on the electronic/computer document * Cathy Bruce 08/22/202041:HPI- Female Free Text HPI NotesFree Text HPI Zonnr04-qvmg-kaz female G1, 6 weeks EGA with LMP109/08 presents to ED after positive test cruise consultant'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 She reports associated nausea, [...] No palpable masses or pulsetile masses. Negative Mobile Sign. [facility] [place]: [place]/LE. No swelling or deformity. [...] % (Auto) (28.0 - 48.0 %) 30.6 [place] % (Auto) (3.0 - 15.0 %) 5.9 Eos % (Auto) (1.0 - 8.0 %) 0.6 L Baso % (Auto) (0.0 - 2.0 %) 0.7 Neut # (Auto) (2.0 - 3.2 x10 3/uL) 6.51 H Lymph # (Auto) (1.0 - 3.8 x10 3/uL) 3.22 [place] # (Auto) (0.1 - 0.8 x10 3/uL) [...] x10 3/uL) 0.00 Miscellaneous Maternal Serum HCG 91406.6 Urines Urine Color (YEL/STRAW) STRAW Urine Appearance (CLEAR) CLEAR Urine pH (5.0 - 7.0) 6.0 Ur Specific [place] (1.005 - 1.030) 1.008 Urine Protein (NEGATIVE) [...] age of 6 weeks 4 days. SL: SG-HImpression By: Phil Izquierdo M.D.ULTRASOUND - US PREG 1ST TRIMTR 08/22 2199 Report Impression - Status: SIGNED Entered: 08/22/20202209 IMPRESSION: Single viable intrauterine of estimatedsonographic gestational age of 6 weeks 4 days. SL: KEI-Sadafpression By: Phil Izquierdo M.D. Lab Imaging StatementLaboratory [...] if severe pain, fever > 102, worsening symptomsReferralsCricket Bolden MD Discharge NoteI have spoken with the [...] department or a call to 911. Loi Hassan 08/24/20 2338:[facility]- [facility] Date/Time 08/22/20 2018 Patient Discharge Departure Supervising Physician Note MidLv Saw Pt AloneI have reviewed the PA/HOUSEMAID's note and plan of care. I was available for consultation as needed at all times during the patient's visit in the emergency department. I agree with the clinical impression, plan and disposition. at 2346 at 2338RPT #:[id number] OF REPORTEDEmereureka springs hospital department tyiulv4096-69-79M91:42:00G.SGGF30481995-5150LDEqx ilable for patient suzrTLNVXECDBCRQUM3820-00-73G76:39:11 [facility] 2020-02-15 23:20:00 HQmbcovfyxq05679723Q IvLS6LFMtvQ0CKKV+qkXEIQMpMB0w JZ3PiUQo6VDRV86egd14UbCXmKRMvK9hkF0580-34-70E32:2 0:00 [facility] PROVID[facility] REPORTREPORT#:[id number] REPORT STATUS: SignedDATE:02/15/20 TIME: 2319 PATIENT: LUIS EDMONDS UNIT #: [id number]#: [id number] ROOM/BED:AGE: 19 SEX: F PCP PHYS: Elina Rome AUTHOR: Amilcar Pablo HOUSEMAID * ALL edits or amendments must be made on the electronic/computer document * HPI-General Illness Free Text HPI NotesFree Text HPI Evqbk36-plaw-nfc female with past medical history of asthma presents to the ER with mother with complaint of fever, sore throat, nausea, right ear pain and enlargedR cervical lymph node onset today. Pt took 2 tabs of motrin earlier today. She denies any cough, congestion, SOB, wheezing, abd pain, v/d, dysuria, hematuria or vaginal discharge. No known Covid exposures. GeneralInitial Greet Date/Time 02/15/20 PresentationChief Complaint Fever, Sore throatHx Obtained From [...] masses or pulsatile masses. [facility] PointExt: No obvious deformityNeuro: awake and alert, [...] (Auto) (28.0 - 48.0 %) 13.[address] % (Auto) (3.0 - 15.0 %) 10.0 Eos % (Auto) (1.0 - 8.0 %) 0.0 L Baso % (Auto) (0.0 - 2.0 %) 0.4 Neut # (Auto) (2.0 - 3.2 x10 3/uL) 9.16 H Lymph # (Auto) (1.0 - 3.8 x10 3/uL) 1.70 [place] # (Auto) (0.1 - 0.8 x10 3/uL) [...] pH (5.0 - 7.0) 6.0 Ur Specific [place] (1.005 - 1.030) 1.015 Urine Protein (NEGATIVE) [...] Status Admin Acetaminophen 1,000 MG X1ED STA 02/15 2312 DC 02/14 PO 02/14 2313 2320 Diagnostic Agents Sig/Victoriano Start time Last Medication Dose Route Stop Time Status Admin Iopamidol 70 ML .STK-MED ONE 02/15 0136 DC 02/15 IV 02/15 Electrolytic, Caloric, And Gregor Sig/Victoriano Start time [...] Admin Ondansetron HCl 4 MG X1ED STA 02/142 DC 02/14 IV 02/14 2313 232 Patient Discharge Departure Vital Signs/ConditionVital SignsFirst Documented: [...] Needfor follow-up, When to return to EDPrescriptionsmotrin, augmentinReferralsMartinezElina MD (PCP/Family) at 0332RPT #:[id number] OF REPORTEDEmergency department bnncqd4252-05-27A74:20:00G.UMJT58880097-1631HAXzz ilable for patient luxsBLKVARKSYBJMYZ3859-04-08R24:32:50 [facility] 2020-02-15 23:20:00 SJambatoyht42755450Z Uk28p/NTiDGwCjY3y0G36i4USMt99 mKNoGqPBukdem4hR/WPUkQ5qUrvYqhwcKj0800-42-31Y50:2 0:00 [facility] ([facility])EMERGENCY PROVIDER REPORTREPORT#:[id number] REPORT STATUS: SignedDATE:02/15/20 TIME: 2319 PATIENT: LUIS EDMONDS UNIT #: [id number]#: [id number] ROOM/BED:AGE: 19 SEX: F PCP PHYS: Elina Rome AUTHOR: Amilcar Pablo HOUSEMAID * ALL edits or amendments must be made on the electronic/computer document * Amilcar Pablo 02/15/20 2320:HPI-General Illness Free Text HPI NotesFree Text HPI Cpvic94-knne-oxp female with past medical history of asthma [...] Result Date Time Pulse Ox 99 02/15 032 B/P 96/55 02/16 328 B/P Mean 68 [...] masses or pulsatile masses. [facility] PointExt: No obvious deformityNeuro: awake and alert, speech NL for age, behavior age-appropriate. Interpretation Diagnostics Lab Results InterpretationResultsLaboratory Tests 02/15/20 2326:[Embedded Image Not Available]Laboratory Tests: 02/14 02/14 2323 2326 Chemistry Sodium (134 - 147 mEq/L) [...] (Auto) (28.0 - 48.0 %) 13.[address] % (Auto) (3.0 - 15.0 %) 10.0 Eos % (Auto) (1.0 - 8.0 %) 0.0 L Baso % (Auto) (0.0 - 2.0 %) 0.4 Neut # (Auto) (2.0 - 3.2 x10 3/uL) 9.16 H Lymph # (Auto) (1.0 - 3.8 x10 3/uL) 1.70 [place] # (Auto) (0.1 - 0.8 x10 3/uL) [...] pH (5.0 - 7.0) 6.0 Ur Specific [place] (1.005 - 1.030) 1.015 Urine Protein (NEGATIVE) [...] to infectious/inflammatory process, follow-up to resolutionrecommended. SL: QUENTINYED-HImpression By: KaneJS38 Pati Wolfe M.D. Lab Imaging StatementLaboratory radiographic studies [...] MG X1ED STA 02/142 DC 02/14 PO 02/143 2320 Diagnostic Agents Sig/Victoriano Start time Last Medication Dose Route Stop Time Status Admin Iopamidol 70 ML .STK-MED ONE 02/15 0136 DC 02/15 IV 02/15 0137 0136 Electrolytic, Caloric, And Gregor Sig/Victoriano Start [...] Admin Ondansetron HCl 4 MG X1ED STA 02/142 DC 07/30 IV 07/30 2313 2321 Patient Discharge Departure Vital Signs/ConditionVital SignsFirst [...] Prescriptions, Needfor follow-up, When to return to EDPrescriptionsmojoan, Elina Uribe MD (PCP/Family) Nirav Nolan 02/16/20 0517:HPI-General Illness GeneralInitial Greet Date/Time 02/15/20 2255 Patient Discharge Departure Supervising Physician Note MidLv Saw Pt AloneI have reviewed the PA/HOUSEMAID's note and plan of care. I was available for consultation as needed at all times during the patient's visit in the emergency department. I agree with the clinical impression, plan and disposition. at 0332RPT #:[id number] OF REPORTEDEmergency department jrcvli6322-97-55W58:20:00G.XRZX52145794-2003UKLqj ilable for patient ycxyUIEESRBOOWCGSO4867-22-46X65:17:52 [facility] 2020-02-15 23:20:00 PGfhbrjqssu882318757 8imMhsm3fPNlFZIdGSFfLqRHfCVmt fgaLEU6GuG+uYA8PkGS7crNrv6fzZoUc0J8216-24-68T67:2 0:00 [facility] ([facility])EMERGENCY PROVIDER REPORTREPORT#:[id number] REPORT STATUS: SignedDATE:02/15/20 TIME: 2319 PATIENT: LUIS EDMONDS UNIT #: [id number]#: [id number] ROOM/BED:AGE: 19 SEX: F PCP PHYS: Elina Rome AUTHOR: Amilcar Pablo HOUSEMAID * ALL edits or amendments must be made on the electronic/computer document * Amilcar Pablo 02/15/20 2320:HPI-General Illness Free Text HPI NotesFree Text HPI Cmwir98-blac-wzg female with past medical history of asthma [...] masses or pulsatile masses. [facility] PointExt: No obvious deformityNeuro: awake and alert, [...] (Auto) (28.0 - 48.0 %) 13.[address] [place] % (Auto) (3.0 - 15.0 %) 10.0 Eos % (Auto) (1.0 - 8.0 %) 0.0 L Baso % (Auto) (0.0 - 2.0 %) 0.4 Neut # (Auto) (2.0 - 3.2 x10 3/uL) 9.16 H Lymph # (Auto) (1.0 - 3.8 x10 3/uL) 1.70 [place] # (Auto) (0.1 - 0.8 x10 3/uL) [...] pH (5.0 - 7.0) 6.0 Ur Specific [place] (1.005 - 1.030) 1.015 Urine Protein (NEGATIVE) [...] MG X1ED STA 02/142 DC 02/14 PO 02/143 2320 Diagnostic Agents Sig/Victoriano Start time Last Medication Dose Route Stop Time Status Admin Iopamidol 70 ML .STK-MED ONE 02/15 0136 DC 02/15 IV 02/15 137 0136 Electrolytic, Caloric, And Gregor Sig/Victoriano Start time Last Medication Dose Route Stop Time Status Admin Sodium Chloride 1,000 ML X1ED STA 02/14 2312 DC 02/14 IV 02/143 2321 Eye, Ear, Nose And Throat (Een Sig/Victoriano Start time Last Medication Dose Route Stop Time Status Admin Dexamethasone Sodium 10 MG X1ED STA 02/142 DC 02/14 Phosphate IV 02/14 2313 2321 Gastrointestinal Drugs Sig/Victoriano Start time Last Medication Dose Route Stop Time Status Admin Ondansetron HCl 4 MG X1ED STA 02/142 DC 02/14 IV 02/14 2313 2321 Patient Discharge Departure Vital Signs/ConditionVital SignsFirst [...] Needfor follow-up, When to return to EDPrescriptionsmotrin, augmentinReferralsElina Rome MD (PCP/Family) Nirav Nolan 02/16/20 0517:HPI-General Illness GeneralInitial Greet Date/Time 02/15/205 Patient Discharge Departure Supervising Physician Note MidLv Saw Pt AloneI have reviewed the PA/HOUSEMAID's note and plan of care. I was available for consultation as needed at all times during the patient's visit in the emergency department. I agree with the clinical impression, plan and disposition. at 0332 at 0517RPT #:[id number] OF REPORTEDEmergency department akhfpa9732-12-79Y65:20:00G.WYLB85777142-4263PUTfs ilable for patient uyvfZDKMHTELXMDVMJ9755-06-37U19:18:02 [facility] 2019-05-22 11:29:00 YDvwwdigqfd65576515O agVvHcm6tt13QP/WLGjnqJm0nk7sU VFasMdtlc8Ehfdg7/IZegJcWDZ+49os1cv7893-92-83E31:2 9:00 [facility] ([facility])EMERGENCY PROVIDER REPORTREPORT#:[id number] REPORT STATUS: SignedDATE:05/22/19 TIME: 112 PATIENT: LUIS EDMONDS UNIT #: [id number]#: [id number] ROOM/BED:AGE: 18 SEX: F PCP PHYS: Elina Rome MDSERVICE AUTHOR: Carla Tloedo MD * ALL edits or amendments must [...] ED with c/o allergic reaction, onset 30mins [employer]. Pt reports eating sour Skittles and felt sensation of throat swelling with associated neck/throat itchiness and SOB. She took 50mg of Benadryl and Epi Pen at school [employer]. Pt was seen here previously on 05/02/19 [...] 05/22 1120 O2 Delivery Room air 05/22 112 Temp 36.7 05/22 112 Pulse 90 05/22 1120 Resp 16 05/22 1120 Last Documented: Result Date Time Pulse Ox 97 05/22 1313 B/P 110/65 05/22 1313 B/P Mean 80 05/22 1313 O2 Delivery Room air 05/22 131 Temp 36.7 05/22 131 Pulse 90 05/22 [...] Dose Route Stop Time Status Admin Ipratropium [place] 0.5 MG Q15M 05/22 1130 DC 05/22 [...] B/P 119/56 05/22 1120 B/P Mean 77 11/04 1120 O2 Delivery Room air 11/04 1120 Temp 36.7 05/22 1120 Pulse 90 [...] 911. Supervising Physician Note Scribe StatementLaith Harvey, 05/22/191128, scribing for and in the presence of Dr. Toledo.Signed By: Laith Harvey, 05/22/191128 Provider Scribed StatementI personally performed the services described in this documentation and reviewedthe documentation that was dictated to the scribe(s) in my presence, and it accurately records my words and actions. Carla Toledo, 05/22/19 Portions of this section were scribed by Laith Harvey on 05/22/19 at 1129 at 2022RPT #:[id number] OF REPORTEDEmergency department gsblms5123-85-08B90:29:00E.CXGY87692981-4605IJZab ilable for patient euzgNTDKDAYDWVLMKD3037-93-59S02:22:40 [facility] 2019-05-02 09:53:00 GBswlzfbnnd16642948s 0lTsnydz/MCpPqL766m6H1R4bBAZk gfXn5Yb1re4KDBoXgJj+E2cvzfECZ7DPgp5741-35-10N71:5 3:00 [facility] REPORTREPORT#:[id number] REPORT STATUS: SignedDATE:05/02/19 TIME: 0953 PATIENT: LUIS EDMONDS UNIT #: [id number]#: [id number] ROOM/BED:AGE: 18 SEX: F PCP PHYS: Elina Rome MDSJR AUTHOR: Carla Toledo MD * ALL edits or amendments must be made on the electronic/computer document * HPI-Allergic Reaction Peds GeneralConfirmed Patient YesInitial Greet Date/Time 05/02/19 0949PCPDr. Rome ([facility]) PresentationChief Complaint Allergic reactionHx Obtained [...] pen, and took 50 mg of benadryl [employer]LLER. Now c/o itchy throat. Denies nausea and [...] 05/02 944 O2 Delivery Room air 05/02 113 Last Documented: Result Date Time Pulse Ox 99 05/02 1130 B/P 100/54 05/020 B/P Mean 69 05/02 113 O2 Delivery Room air 05/02 1130 Temp 36.8 05/02 113 Pulse 77 05/02 1130 Resp 18 05/02 [...] 98 On: Room air Interpretation Interpreted by ny, Pulse oximetry normal Time 0944 Portions of this section were scribed by Priscilla Edwards on 05/02/19 at 0957 Re-Evaluation MDM )( Re-Evaluation/Progress #1Text/Dict NotePt states her sx have resolved, parents are at bedside, everyone understands tx plan. Time of Re-Eval 1116)( Re-Eval Status Improved, Resolved ED CourseMedication(s) OrderedMedication(s) Ordered:Autonomic Drugs Sig/Victoirano Start time Last Medication Dose Route Stop [...] 125 MG X1ED STA 05/02 0953 DC 05/02 Sodium Succinate IV 05/02 0954 1002 Portions [...] B/P 100/54 05/02 1130 B/P Mean 69 05/020 O2 Delivery Room air 05/02 1130 Temp [...] presence of [Dr. Toledo].Signed By: Priscilla Edwards, 05/02/19 0953 Provider Scribed StatementI personally performed the services described in this documentation and reviewedthe documentation that was dictated to the scribe(s) in my presence, and it accurately records my words and actions. Carla Toledo, 05/02/19 Portions of this section were scribed by Priscilla Edwards on 05/02/19 at 0957 at 1436RPT #:[id number] OF REPORTEDEmereureka springs hospital department ujxzwp3343-67-44Q89:53:00E.EEZN09115825-4605HBAad ilable for patient vmbgTOZETONSVSMJMM9286-97-29C41:36:37 [facility]AMN
[2024-01-08 00:51] LABS: Absolute Basophils 0.1 K/uL (0-0.5); Absolute Eosinophils 0.1 K/uL (0-0.5); Absolute Lymphocytes (CBC) 3.3 K/uL (0.7-4.9); Absolute Monocytes 0.6 K/uL (0.1-1.3); Absolute Neutrophil 4.3 K/uL (1.8-8.0); Basophils % 1.1 % (0-1.3); Eosinophils % 1.4 % (0-4.4); Hematocrit 35.8 % (36.0-45.0); Hemoglobin 11.8 g/dL (12.0-15.0); Lymphocytes % 39.2 % (15.3-44.8); MCH 29.1 pg (27.0-35.0); MCV 88.2 fL (80-100); MPV 8.9 fL (7.6-11.3); Monocytes % 7.2 % (3.3-12.3); Neutrophils % 51.1 % (41.7-73.7); Platelets 292 thou/uL (152-406); RBC Red Blood Cell Count 4.06 M/uL (3.86-4.86); Red Cell Distribution Width 15.1 % (12.1-15.2)
[2024-01-08 01:05] LABS: Specific Gravity 1.028 (1.005-1.030); Urine Bilirubin NEGATIVE (Negative); Urine Blood Negative (Negative); Urine Clarity Clear (Clear); Urine Color Light-Yellow (Yellow); Urine Glucose NEGATIVE (Negative); Urine Ketones NEGATIVE (Negative); Urine Microscopic Reflex YN NO UMIC; Urine Nitrite NEGATIVE (Negative); Urine Protein NEGATIVE (Negative); Urine Urobilinogen Normal (Normal)
[2024-01-08 01:08] LABS: Sqamous Epithelial <5 /HPF (None Seen); Urine Bacteria None Seen /HPF (<20); Urine Culture Reflex Order NOT NEEDED; Urine Mucus Slight /HPF (None Seen); Urine RBC <5 /HPF (None Seen); Urine WBC <5 /HPF (<5)
[2024-01-08 01:15] LABS: ALT/SGPT 16 U/L (13-56); Albumin 3.9 g/dL (3.4-5.0); Albumin/Globulin Ratio 1.1 (1.1-1.8); Alkaline Phosphatase 61 U/L (45-117); Anion Gap 7.6 mEq/L (5.0-15.0); BUN Blood Urea Nitrogen 19 mg/dL (7-18); Bicarbonate 27 mEq/L (21-32); Bilirubin Total 0.2 mg/dL (0.2-1.0); Globulin 3.5 g/dL (2.3-3.5); Glomerular Filtration Rate 127 ml/min (=/>90); Glucose Level 105 mg/dL (74-106); Potassium 3.6 mEq/L (3.5-5.1); Protein, Total 7.4 g/dL (6.4-8.2); Sodium Level 139 mEq/L (136-145)
[2024-01-08 01:34] LABS: AST/SGOT < 10 U/L (15-37); HCG, Quantitative < 1 mIU/mL (1-3)
--- NOTE | 2024-01-08 03:32 | EDPHYS ---
Physician Documentation [facility] Name: Hilaria Rogers Age: 23 yrs Sex: Female : 2000 Arrival Date: 01/07/2024 Time: 23:54 Bed 7 Private MD: ED Physician Jose Mancia HPI: 01/07 00:12 This 23 yrs old Female presents to ER via Unassigned with complaints of sp4 Vaginal Bleeding, + Preg <12wks. 07:17 23 -year-old female presents with complaint of vaginal bleeding and pelvic cramps. sp4 Patient reports last menstrual period November 2023. EGA 7 weeks 0 days. history -0-1-2 . 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 - Infectious Disease History:: Denies. - Social history:: Smoking status: Reported history of juuling and/or vaping. - Family history:: not pertinent. ROS: 07:17 Constitutional: Negative for fever, chills, and weight loss, positive for vaginal sp4 bleeding and pelvic cramp 07:17 All other systems are negative, Exam: 07:19 Constitutional: This is a well developed, well nourished patient who is awake, alert, sp4 and in no acute distress. Head/Face: Normocephalic, atraumatic. Eyes: Pupils equal round and reactive to light, extra-ocular motions intact. Lids and lashes normal. Conjunctiva and sclera are not injected. Cornea within normal limits. Periorbital areas with no swelling, redness, or edema. ENT: Nares patent. No nasal discharge, no septal abnormalities noted. Tympanic membranes are normal and external auditory canals are clear. Oropharynx with no redness, swelling, or masses, exudates, or evidence of obstruction, uvula midline. Mucous membranes moist. Neck: Trachea midline, no thyromegaly or masses palpated, and no cervical lymphadenopathy. Supple, full range of motion without nuchal rigidity, or vertebral point tenderness. Chest/axilla: Normal chest wall appearance and motion. Nontender with no deformity. No lesions are appreciated. Cardiovascular: Regular rate and rhythm with a normal S1 and S2. No gallops, murmurs, or rubs. Normal PMI, no JVD. No pulse deficits. Respiratory: Lungs have equal breath sounds bilaterally, clear to auscultation and percussion. No rales, rhonchi or wheezes noted. No increased work of breathing, no retractions or nasal flaring. Abdomen/GI: Soft, with normal bowel sounds. No distension or tympany. No guarding or rebound. No evidence of tenderness throughout. Back: No spinal tenderness. No costovertebral tenderness. Skin: Warm, dry with normal turgor. Normal color with no rashes, no lesions, and no evidence of cellulitis. MS/ Extremity: Pulses equal, no cyanosis. Neurovascular intact. Full, normal range of motion. Neuro: Awake and alert, GCS 15, oriented to person, place, time, and situation. Cranial nerves II-XII grossly intact. Motor strength 5/5 in all extremities. Sensory grossly intact. Psych: Awake, alert, with orientation to person, place and time. Behavior, mood, and affect are within normal limits Vital Signs: 00:37 BP 119 / 57; Pulse 84; Resp 15; Temp 98.5; Pulse Ox 100% ; Weight 77.11 kg; Height 5 vc1 ft. 2 in. ; Pain 6/10; 02:26 BP 121 / 67; Pulse 74; Resp 18; Pulse Ox 100% on R/A; kd4 03:30 BP 109 / 61; Pulse 83; Resp 16 S; Pulse Ox 99% on R/A; jw7 00:37 Body Mass Index 31.09 (77.11 kg, 157.48 cm) vc1 00:37 Pain Scale: Adult vc1 Russell Coma Score: 07:19 Eye Response: spontaneous(4). Motor Response: obeys commands(6). Verbal Response: sp4 oriented(5). Total: 15. MDM: 00:12 Patient medically screened. sp4 07:19 ED course: EXAM: Ultrasound OB level one < than 14 weeks CLINICAL DATA: 23 years Female sp4 ABD PAIN, LMP: Unknown, EGA: Unknown, DANY: Unknown TECHNICAL DATA: Sonographic imaging of the pelvis was performed transvaginally on 01/08/2024 at 1:42 AM COMPARISONS: None FINDINGS: The uterus is normal in size and configuration and measures: 6.9 x 3.9 x 5.9 cm. There is no evidence of an intrauterine gestational sac. The endometrial echo complex measures 0.2 cm in diameter. The right ovary is grossly normal in size, shape and echogenicity and measures: 2.6 x 1.9 x 2.1 cm. There is normal pulsed and color Doppler flow to the right ovary. There are no right adnexal mass lesions.. The left ovary is grossly normal in size, shape and echogenicity and measures: 2.7 x 1.2 x 2.0 cm. There is normal pulsed and color Doppler flow to the left ovary. There are no left adnexal mass lesions.. There is no free fluid in the pelvis. IMPRESSION: 1. No evidence of an intrauterine . 2. No evidence of free fluid or complex adnexal mass lesion. 3. Grossly normal sonographic evaluation of the ovaries. Electronically signed by: Sasha Street DO 01/08/2024 03:18. 07:21 Differential diagnosis: Mchenry schulte, delivery of infant, STD, ectopic . Data sp4 reviewed: vital signs, nurses notes, lab test result(s), radiologic studies, ultrasound. Consideration of Admission/Observation Escalation of care including admission/observation considered. ED course: No sign of intrauterine . No sign of ectopic . Patient stable for discharge home. 01/07 00:12 Order name: CBC with Diff; Complete Time: 02:39 sp4 01/07 00:12 Order name: CMP; Complete Time: 02:39 sp4 01/07 00:12 Order name: Urinalysis w/ reflexes; Complete Time: 02:39 sp4 01/07 00:12 Order name: HCG-Quantitative; Complete Time: 02:39 sp4 01/07 01:41 Order name: Pelvis Complete EDMS 01/07 00:12 Order name: IV Saline Lock; Complete Time: 00:42 sp4 01/07 00:12 Order name: Labs collected and sent; Complete Time: 00:42 sp4 Administered Medications: No medications were administered Point of Care Testing: Urine : 03:44 hCG Reading: Negative; Control Reading: Negative; jw7 Disposition Summary: 01/08/24 03:31 Discharge Ordered Notes: Location: Home sp4 Problem: new sp4 Symptoms: have improved sp4 Condition: Stable sp4 Diagnosis - Incomplete miscarriage sp4 Followup: sp4 - With: Private Physician - When: 7 - 10 days - Reason: Recheck today's complaints Discharge Instructions: - Discharge Summary Sheet sp4 - Miscarriage, [id number] sp4 Forms: - Patient Portal Instructions sp4 Signatures: Dispatcher [employer] EDMS Jeanna Mccoy RN RN vc1 Jose Mancia MD MD sp4 Corrections: (The following items were deleted from the chart) 01:41 00:13 OB [id number] ordered. EDMS EDMS
--- NOTE | 2024-01-08 03:32 | ER ---
Nurse's Notes [facility] Name: Hilaria Rogers Age: 23 yrs Sex: Female : 2000 Arrival Date: 01/07/2024 Time: 23:54 Bed 7 Private MD: Diagnosis: Incomplete miscarriage Presentation: 01/07 00:37 Chief complaint: Patient states: I think I had a miscarriage. I'm bleeding pretty heavy vc1 and I passed a large clot that looked like a little shrimp. Coronavirus screen: Vaccine status: Patient reports receiving the 2nd dose of the covid vaccine. Client denies travel out of the [place] in the last 14 days. At this time, the client does not indicate any symptoms associated with coronavirus-19. Ebola Screen: Patient negative for fever greater than or equal to 101.5 degrees Fahrenheit, and additional compatible Ebola Virus Disease symptoms Patient denies exposure to infectious person. Patient denies travel to an Ebola-affected area in the 21 days before illness onset. No symptoms or risks identified at this time. Initial Sepsis Screen: Does the patient meet any 2 criteria? No. Patient's initial sepsis screen is negative. Does the patient have a suspected source of infection? No. Patient's initial sepsis screen is negative. Risk Assessment: Do you want to hurt yourself or someone else? Patient reports no desire to harm self or others. Onset of symptoms was January 08, 2024. 00:37 Method Of Arrival: Ambulatory vc1 00:37 Acuity: CONCHITA 3 vc1 Triage Assessment: 00:44 General: Appears in no apparent distress. Behavior is cooperative, crying. Pain: vc1 Complains of pain in low back area Pain currently is 6 out of 10 on a pain scale. EENT: No deficits noted. No signs and/or symptoms were reported regarding the EENT system. Neuro: Level of Consciousness is awake, alert, obeys commands, Oriented to person, place, time, situation, Appropriate for age. Cardiovascular: Capillary refill < 3 seconds Patient's skin is warm and dry. Respiratory: Airway is patent Respiratory effort is even, unlabored, Respiratory pattern is regular, symmetrical, Breath sounds are clear. GI: No deficits noted. No signs and/or symptoms were reported involving the gastrointestinal system. : Reports vaginal bleeding that is bright red, with clots, heavy flow. Derm: Skin is intact, is healthy with good turgor, Skin is dry, Skin is normal, Skin temperature is warm. Musculoskeletal: No deficits noted. No signs and/or symptoms reported regarding the musculoskeletal system. 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 - Infectious Disease History:: Denies. - Social history:: Smoking status: Reported history of juuling and/or vaping. - Family history:: not pertinent. Screenin:43 Abuse screen: Denies threats or abuse. Nutritional screening: No deficits noted. vc1 Tuberculosis screening: No symptoms or risk factors identified. 00:45 [facility] ED Fall Risk Assessment (Adult) History of falling in the last 3 months, jw7 including since admission No falls in past 3 months (0 pts) Confusion or Disorientation No (0 pts) Intoxicated or Sedated No (0 pts) Impaired Gait No (0 pts) Mobility Assist Device Used No (0 pt) Altered Elimination No (0 pt) Score/Fall Risk Level 0 - 2 = Low Risk Oriented to surroundings, Maintained a safe environment, Educated pt \T\ family on fall prevention, incl call for assistance when getting out of bed. Assessment: 00:45 General: Appears in no apparent distress. uncomfortable, Behavior is calm, cooperative, jw7 appropriate for age. Pain: Complains of pain in low back area Pain does not radiate. Pain currently is 7 out of 10 on a pain scale. Quality of pain is described as sharp, Pain began suddenly, Is continuous. Neuro: Level of Consciousness is awake, alert, obeys commands, Oriented to person, place, time, situation, Appropriate for age. Cardiovascular: Heart tones S1 S2 present Capillary refill < 3 seconds Clubbing of nail beds is absent JVD is absent Patient's skin is warm and dry. Respiratory: Airway is patent Trachea midline Respiratory effort is even, unlabored, Respiratory pattern is regular, symmetrical. GI: Abdomen is flat, non-distended, Bowel sounds present X 4 quads. Abd is soft and non tender X 4 quads. : No deficits noted. No signs and/or symptoms were reported regarding the genitourinary system. EENT: No deficits noted. No signs and/or symptoms were reported regarding the EENT system. Derm: Skin is intact, is healthy with good turgor, Skin is dry, Skin is normal, Skin temperature is warm. Musculoskeletal: Circulation, motion, and sensation intact. Range of motion: intact in all extremities. 01:00 Obstetrical Assessment: General assessment: awake and alert, skin warm and dry, jw7 respirations even and unlabored. 02:00 Reassessment: Patient appears in no apparent distress at this time. No changes from jw7 previously documented assessment. Patient and/or family updated on plan of care and expected duration. Pain level reassessed. Patient is alert, oriented x 3, equal unlabored respirations, skin warm/dry/pink. 03:00 Reassessment: Patient appears in no apparent distress at this time. No changes from jw7 previously documented assessment. Patient and/or family updated on plan of care and expected duration. Pain level reassessed. Patient is alert, oriented x 3, equal unlabored respirations, skin warm/dry/pink. 03:43 Reassessment: Patient appears in no apparent distress at this time. No changes from jw7 previously documented assessment. Patient and/or family updated on plan of care and expected duration. Pain level reassessed. Patient is alert, oriented x 3, equal unlabored respirations, skin warm/dry/pink. Vital Signs: 00:37 BP 119 / 57; Pulse 84; Resp 15; Temp 98.5; Pulse Ox 100% ; Weight 77.11 kg; Height 5 vc1 ft. 2 in. ; Pain 6/10; 02:26 BP 121 / 67; Pulse 74; Resp 18; Pulse Ox 100% on R/A; kd4 03:30 BP 109 / 61; Pulse 83; Resp 16 S; Pulse Ox 99% on R/A; jw7 00:37 Body Mass Index 31.09 (77.11 kg, 157.48 cm) vc1 00:37 Pain Scale: Adult vc1 Vitals: 03:44 Heart Tones Not Applicable. jw7 Savannah Coma Score: 07:19 Eye Response: spontaneous(4). Motor Response: obeys commands(6). Verbal Response: sp4 oriented(5). Total: 15. ED Course: 01/06 23:58 Patient arrived in ED. mr 01/07 00:12 Jose Mancia MD is Attending Physician. sp4 00:30 Initial lab(s) drawn, by me, sent to lab. Inserted saline lock: 20 gauge in right jw7 antecubital area, using aseptic technique. Blood collected. 00:42 Triage completed. vc1 00:42 HCG-Quantitative Sent. jw7 00:42 CBC with Diff Sent. jw7 00:42 CMP Sent. jw7 00:43 Arm band placed on right wrist. vc1 00:45 Patient has correct armband on for positive identification. Placed in gown. Bed in low jw7 position. Call light in reach. Provided Education on: Use of Call Light. 02:15 Pelvis Complete In Process Unspecified. EDMS 03:43 No provider procedures requiring assistance completed. IV discontinued, intact, jw7 bleeding controlled, No redness/swelling at site. Pressure dressing applied. Administered Medications: No medications were administered Medication: 03:44 VIS not applicable for this client. jw7 Point of Care Testing: Urine : 03:44 hCG Reading: Negative; Control Reading: Negative; jw7 Outcome: 03:31 Discharge ordered by . sp4 03:43 Discharged to home ambulatory, jw7 03:43 Condition: stable 03:43 Discharge instructions given to patient, Instructed on discharge instructions, follow up and referral plans. Demonstrated understanding of instructions, follow-up care, 03:44 Patient left the ED. jw7 Signatures: Dispatcher [employer] EDNE Luzma Nance, Reg Reg mr Mccoy Jeanna, RN RN vc1 Ivonne Dunne, RN RN jw7 Jose Mancia MD MD sp4 Emily Pepper RN RN kd4
[2024-01-08 04:17] VITALS: BP 109/61; TEMP 98.5; O2SAT 99
== END 2024-01-08 03:44 | disposition home or self-care (01) ==
LOC: ER 23:54
DX: O03.4 Incomplete spontaneous abortion without complication (principal); Z91.018 Allergy to other foods
CPT/HCPCS: 36415; 76856; 80053; 81003; 84702; 85025; 99284

== ENCOUNTER 2024-02-16 19:53 | Emergency (ER) | payer SELFPAY ==
--- OUTSIDE RECORDS SUMMARY | 2024-02-16 19:58 | XMS REPORT | Continuity of Care Document ---
Author Name Unknown Address [address] [facility] [address] [place] [address] [facility] Address [address] [facility] [address] [place] [address] Care Team Providers Care Sealer Operator Name Role Phone FREDERICK RICHARDSON Joceline Primary Care Physician Unavailab Brittnee Acosta Attending Clinician UnavailMADHAVI Garnett Attending Clinician Unavailable MERT MILES Attending Clinician Unavailable MERT MILES Attending Clinician Unavailable PHILL ROMAN Attending Clinician Unavailjas Roman MD, Phill Nash Attending Clinician [phone] Luis Burciaga Attending Clinician UnavailSUZY Malcolm Attending Clinician Unavailable Suzy Uriostegui MD Attending Clinician [phone] Effie Marquez Attending Clinician Unava ANTONIA Corbett Attending Clinician Unavailable Antonia Pike MD Attending Clinician [phone] Ghanshyam Chavez Attending Clinician Tierney vilma Nurse, Osvalod Evangelista Attending Clinician Unavaila Frederick Herrera MD Attending Clinician [phone] FREDERICK RICHARDSON Attending Clinician Unavailable AR RICHARDSON Attending Clinician Unavailable Ar Richardson MD Attending Clinician [phone] Kishor Bishop Attending Clinician Unavailable ELINA ROME Attending Clinician Unavailable Madhavi Romna PA-C Attending Clinician [phone] Dottie Chavez Attending Clinician UnavailZachery MIRELES, Nathalia Cagle Attending Clinician [phone] Ny Khan MD Attending Clinician [phone] Olivier [facility], Aneta Esparza Attending Clinician [phone] Unknown, Attending Attending Clinician Unavailab miah LOPEZ, ATTENDING Attending Clinician Unavailab Pearl Petersen Attending Clinician Unavailjas Noble RN, Tashia Rae Attending Clinician Unavailab miah Last [facility], Lily Hummel Attending Clinician [phone] Lydia Bojorquez MD Attending Clinician [phone] Doctor Unassigned, Long Attending Clinician U robbin Camp PNP, Liberty Attending Clinician + [phone] LIBERTY CAMP Attending Clinician Unavailable Wiliam SURGICAL ELASTIC KNITTER HAND FRAME, Antonia Attending Clinician + [phone] Dagoberto SURGICAL ELASTIC KNITTER HAND FRAME, Kassidy Cagle Attending Clinician [phone] Rajan PICKERING, Elina Pandey Attending Clinici an KASSIDY ARENAS Attending Clinician Unavailab REJI Bose Attending Clinician Unavailable Ivet PICKERING, Aiden Conde Attending Clinician [phone] SOSA ADAMES Attending Clinician Unavailable Sosa Adames MD Attending Clinician [phone] Santiago COLE, Sandra Hilton Attending Clinician Unavaila Ashley Schafer DO Attending Clinician [phone] Orquidea PICKERING, Mike Jaffe Attending Clinician [phone] Shahnaz KIMP, Sujata Attending Clinician SUZY URIOSTEGUI Admitting Clinician Unavailable [place] KHAN Admitting Clinician Unavailable Brittnee Ramirez Admitting Clinician UnavailElina Chavez Admitting Clinician Unavail able PHILL ROMAN Admitting Clinician UnavailPhill Garnett MD Admitting Clinician [phone] Luis Burciaga Admitting Clinician UnavailSuzy Malcolm MD Admitting Clinician [phone] Emily Artis Admitting Clinician UnavailANTONIA Samaniego Admitting Clinician Unavailable Effie Solitario Admitting Clinician Unaalondra ilisha Physician, No Primary or Family Admitting Clinic lizzeth Unavailable Dottie Chavez Admitting Clinician UnavailNy Frederick MD Admitting Clinician [phone] Pearl Chavez Admitting Clinician UnavailSOSA Bae Admitting Clinician Unavailable Payers Payer Name Policy Type Policy Number Effective Date Expirati on Date Source [facility] [id number] 2023 00:00:00 [facility] [id number] 00:00:00 [facility] [id number] 2023 00:00:00 Problems Condition Name Condition Details Condition Category Status Onset Date Resolution Date Last Treatment Date Treating Clinician Comments Source Acute appendicit is Acute appendicit is Disease Active 2022-07 0-15 00:00: 00 [facility] Anxiety Anxiety Disease Active [facility] Depression Depression Disease Active [facility] Allergies, Adverse Reactions, Alerts Allergy Name Allergy Type Status Severity Reaction(s) Onset Date Inactive Date Treating Clinician Comments Source MARCUS ACID- THROAT SWELLING DA Active SV 08-03 00:00: 00 [facility] No Known Allergie s DA Active U 11-23 00:00: 00 [facility] No Known Allergie s DA Active U 11-23 00:00: 00 [facility] MALIC ACID DA Active SV TONGUE SWELLING, THROAT CLOSING 12-24 00:00: 00 [facility] Malic Acid Drug Allergy Active Swelling 12-24 00:00: 00 [facility] MALIC ACID DRUG INGREDI Active High Swelling 12-24 00:00: 00 [facility] SOUR MOREAU DRUG INGREDI Active Anaphylaxis 11-15 00:00: 00 [facility] Sour Moreau Propensi ty to adverse reaction s Active Anaphylaxis 11-15 00:00: 00 Sour flavoring on all candy [facility] Social History Social Habit Start Date Stop Date Quantity Comments Source ASSERTION 2022-02-27 00:00:00 [facility] Sexual orientation U [facility] Alcohol intake 2023-05-03 00:00:00 2023-05-03 00:00:00 Ex-drinker (finding) [facility] Exposure to SARS-CoV-2 (event) 2022-10-07 00:00:00 2022-10-17 15:17:00 Not sure [facility] History of Social function 2022-02-25 00:00:00 2022-02-25 00:00:00 [facility] Tobacco use and exposure 2022-02-25 00:00:00 2022-02-25 00:00:00 Smokeless tobacco non-user [facility] Sex Assigned At 2002 00:00:00 2000 00:00:00 [facility] Smoking Status Start Date Stop Date Source Never smoked tobacco [facility] Medications Ordered Medication Name Filled Medication Name Start Date Stop Date Current Medication? Ordering Clinician Indication Dosage Frequency Signature (SIG) Comments Components Source ibuprofen (IBU) tablet 400 mg 2022-07 15:00: 00 Yes 400mg 400 mg, Oral, Q8H, First dose on 05/03/23 at 1000, Until Discontinu ed, Routine [facility] SERTraline 25 mg tablet 2022-07 12:24: 34 Yes 25mg Take 1 tablet by mouth in the morning. [facility] ketorolac (TORADOL) injection 30 mg 2022-07 04:00: 00 05-03 03:38 :00 No 30mg 30 mg, Slow IV Push, ONCE, 1 dose, On 05/02/23 at 2300, Routine [facility] ibuprofen 400 mg tablet 2022-07 00:00: 00 05-11 04:59 :00 No [id number] 400mg Take 1 tablet by mouth every 8 (eight) hours as needed for Pain (scale 4-6) for up to 7 days. [facility] traMADoL 50 mg tablet 2022-07 00:00: 00 05-11 04:59 :00 No [id number] 50mg Take 1 tablet by mouth every 6 (six) hours as needed for Pain (scale 7-10) for up to 7 days. Indication s: acute pain [facility] enoxaparin (LOVENOX) injection 40 mg 2022-07 22:00: 00 Yes 40mg 40 mg, Subcutaneo us, DAILY, First dose on 05/02/23 at 1700, Until Discontinu ed, Routine [facility] lactated ringers IV infusion 1,000 mL 2022-07 17:15: 00 Yes 1000mL at 100 mL/hr, 1,000 mL, IV Infusion, CONTINUOUS , Starting on Wed05/02/23 at 1215, Until Discontinu ed, Routine, PACU [facility] HYDROcodone -acetaminop hen (NORCO 5) 5-325 mg tablet 1 tablet 2022-07 17:15: 00 05-02 17:48 :00 No 1{tbl} 1 tablet, Oral, ONCE, 1 dose, On Wed05/02/23 at 1215, Routine, PACU [facility] FENTanyl PF (SUBLIMAZE (PF)) injection 25 mcg 2022-07 17:13: 49 05-02 18:23 :47 No 25ug 25 mcg, Slow IV Push, Q5MIN PRN, 4 doses, Starting on Wed05/02/23 at 1213, Until Wed05/02/23 at 1323, Routine, Pain (scale 4-6), PACU [facility] HYDROcodone -acetaminop hen (NORCO 5) 5-325 mg tablet 1 tablet 2022-07 16:58: 20 Yes 1{tbl} 1 tablet, Oral, Q4HPRN, Starting on Wed05/02/23 at 1158, Until Discontinu ed, Routine, Pain (scale 4-6) [facility] sodium chloride 0.9 % irrigation solution 2022-07 16:49: 00 05-02 17:12 :46 No PRN, Starting on Wed05/02/23 at 1149, Until Wed05/02/23 at 1212, Intra-op [facility] bupivacaine (preserv free) (SENSORCAIN E MPF) 0.25 % (2.5 mg/mL) injection 2022-07 16:35: 00 05-02 17:12 :46 No PRN, Starting on Wed05/02/23 at 1135, Until Wed05/02/23 at 1212, Routine, Intra-op [facility] NaCl 0.9% (NS) IV infusion 1,000 mL 2022-07 09:30: 00 05-02 16:57 :40 No 1000mL at 125 mL/hr, IV Infusion, CONTINUOUS , Starting on Wed05/02/23 at 0430, Until Wed05/02/23 at 1157, Routine [facility] ondansetron (ZOFRAN (PF)) injection 4 mg 2022-07 0 09:23: 00 Yes 4mg 4 mg, Slow IV Push, Q4HPRN, Starting on Wed05/02/23 at 0423, Until Discontinu ed, Routine, Nausea and Vomiting (N/V) [facility] FENTanyl PF (SUBLIMAZE (PF)) injection 12.5 mcg 2022-07 09:22: 41 05-02 16:58 :38 No 12.5ug 12.5 mcg, Slow IV Push, Q4HPRN, Starting on 05/02/23 at 0422, Until Wed05/02/23 at 1158, Routine, Pain (scale 7-10) [facility] acetaminoph en (TYLENOL) tablet 650 mg 2022-07 09:22: 29 Yes 650mg 650 mg, Oral, Q6HPRN, Starting on Wed05/02/23 at 0422, Until Discontinu ed, Routine, Pain (scale 1-3) [facility] FLUTICASONE PROPIONATE 50 mcg/actuati on nasal spray 2020-07 00:00: 00 05-02 00:00 :00 No [id number] SPRAY 1 SPRAY INTO EACH NOSTRIL EVERY DAY [facility] EPINEPHrine 0.3 mg/0.3 mL injection 2019-07 00:00: 00 Yes [id number] INJECT 0.3 ML BY INTRAMUSCU LAR ROUTE ONCE NOW FOR 1 DOSE. [facility] Immunizations Ordered Immunization Name Filled Immunization Name Date Status Comments Source Meningococcal Polysaccharide (groups A, C, Y and W-135) conjugate vaccine (MCV4P) 2019-02-23 00:00:00 Completed [facility] Meningococcal Polysaccharide (groups A, C, Y and W-135) conjugate vaccine (MCV4P) 2019-02-23 00:00:00 Completed [facility] DTP 2005-01-21 00:00:00 Completed [facility] HIB 3 Dose Schedule 2005-01-21 00:00:00 Completed [facility] HEPATITIS A 2005-01-21 00:00:00 Completed [facility] Pneumococcal 7 Conjugate, PCV7 (Prevnar7) 2005-01-21 00:00:00 Completed [facility] DTP 2005-01-21 00:00:00 Completed [facility] HIB 3 Dose Schedule 2005-01-21 00:00:00 Completed [facility] HEPATITIS A 2005-01-21 00:00:00 Completed [facility] Pneumococcal 7 Conjugate, PCV7 (Prevnar7) 2005-01-21 00:00:00 Completed [facility] MMR 2003-12-25 00:00:00 Completed [facility] Polio (IPV/OPV) 2003-12-25 00:00:00 Completed [facility] Pneumococcal 7 Conjugate, PCV7 (Prevnar7) 2003-12-25 00:00:00 Completed [facility] MMR 2003-12-25 00:00:00 Completed [facility] Polio (IPV/OPV) 2003-12-25 00:00:00 Completed [facility] Pneumococcal 7 Conjugate, PCV7 (Prevnar7) 2003-12-25 00:00:00 Completed [facility] DTP 2003-06-19 00:00:00 Completed [facility] HIB 3 Dose Schedule 2003-06-19 00:00:00 Completed [facility] Hep B, Adol or Pedi Dosage 2003-06-19 00:00:00 Completed [facility] Polio (IPV/OPV) 2003-06-19 00:00:00 Completed [facility] DTP 2003-06-19 00:00:00 Completed [facility] HIB 3 Dose Schedule 2003-06-19 00:00:00 Completed [facility] Hep B, Adol or Pedi Dosage 2003-06-19 00:00:00 Completed [facility] Polio (IPV/OPV) 2003-06-19 00:00:00 Completed [facility] Hep B, Adol or Pedi Dosage 2002 00:00:00 Completed [facility] Hep B, Adol or Pedi Dosage 2002 00:00:00 Completed [facility] DTP Unknown Completed [facility] DTP Unknown Completed [facility] HIB 3 Dose Schedule Unknown Completed [facility] HIB 3 Dose Schedule Unknown Completed [facility] HEPATITIS A Unknown [facility] Hep B, Adol or Pedi Dosage Unknown Completed [facility] Hep B, Adol or Pedi Dosage Unknown Completed [facility] MMR Unknown Completed [facility] Polio (IPV/OPV) Unknown Completed [facility] Polio (IPV/OPV) Unknown Completed [facility] Meningococcal Polysaccharide (groups A, C, Y and W-135) conjugate vaccine (MCV4P) Unknown Completed [facility] Pneumococcal 7 Conjugate, PCV7 (Prevnar7) Unknown Completed [facility] Pneumococcal 7 Conjugate, PCV7 (Prevnar7) Unknown Completed [facility] DTP Unknown Completed [facility] DTP Unknown Completed [facility] HIB 3 Dose Schedule Unknown Completed [facility] HIB 3 Dose Schedule Unknown Completed [facility] HEPATITIS A Unknown Completed [facility] Hep B, Adol or Pedi Dosage Unknown Completed [facility] Hep B, Adol or Pedi Dosage Unknown Completed [facility] MMR Unknown Completed [facility] Polio (IPV/OPV) Unknown Completed [facility] Polio (IPV/OPV) Unknown Completed [facility] Meningococcal Polysaccharide (groups A, C, Y and W-135) conjugate vaccine (MCV4P) Unknown Completed [facility] Pneumococcal 7 Conjugate, PCV7 (Prevnar7) Unknown Completed [facility] Pneumococcal 7 Conjugate, PCV7 (Prevnar7) Unknown Completed [facility] Vital Signs Vital Name Observation Time Observation Value Comments S ourandres Systolic blood pressure 2023-05-03 12:17:00 101 mm[Hg] [facility] Diastolic blood pressure 2023-05-03 12:17:00 59 mm[Hg] [facility] Heart rate 2023-05-03 12:17:00 68 /min [facility] Body temperature 2023-05-03 12:17:00 36.22 [place] [facility] Respiratory rate 2023-05-03 12:17:00 18 /min [facility] Oxygen saturation in Arterial blood by Pulse oximetry 2023-05-03 12:17:00 96 /min [facility] Body weight 2023-05-03 08:19:00 70.126 kg [facility] BMI 2023-05-03 08:19:00 28.28 kg/m2 [facility] Body height 2023-05-02 08:25:00 157.5 cm [facility] Systolic blood pressure 2023-05-02 18:25:00 97 mm[Hg] [facility] Diastolic blood pressure 2023-05-02 18:25:00 60 mm[Hg] [facility] Heart rate 2023-05-02 18:25:00 59 /min [facility] Body temperature 2023-05-02 18:25:00 36.11 [place] [facility] Respiratory rate 2023-05-02 18:25:00 18 /min [facility] Oxygen saturation in Arterial blood by Pulse oximetry 2023-05-02 18:25:00 100 /min [facility] Body height 2023-05-02 08:25:00 157.5 cm [facility] Body weight 2023-05-02 08:25:00 69.037 kg [facility] BMI 2023-05-02 08:25:00 28.28 kg/m2 [facility] Systolic blood pressure 2022-10-17 20:18:00 99 mm[Hg] [facility] Diastolic blood pressure 2022-10-17 20:18:00 63 mm[Hg] [facility] Body temperature 2022-10-17 20:18:00 36.78 [place] [facility] Respiratory rate 2022-10-17 20:18:00 16 /min [facility] Heart rate 2022-10-17 19:56:00 92 /min [facility] Body height 2022-10-17 19:56:00 157.5 cm [facility] Body weight 2022-10-17 19:56:00 71.668 kg [facility] BMI 2022-10-17 19:56:00 28.90 kg/m2 [facility] Oxygen saturation in Arterial blood by Pulse oximetry 2022-10-17 19:56:00 99 /min [facility] Procedures Procedure Date / Time Performed Performing Clinician Source CBC WITH DIFF 2023-05-03 11:31:00 [facility] CBC WITH DIFF 2023-05-03 11:31[facility] 2023-05-02 15:50:00 Miles, [facility] LAPAROSCOPIC APPENDECTOMY 2023-05-02 15:50:00 Miles, [facility] POCT TEST 2023-05-02 15:31:00 Miles, [facility] POCT TEST 2023-05-02 15:31:00 Miles, [facility] MAGNESIUM 2023-05-02 10:15:00 Phill Roman [facility] HEPATIC FUNCTION PANEL ([id number]) (ALB,T.PRO,BILI T,BU/BC,ALT,AST,ALK PHOS) 2023-05-02 10:15:00 Phill Roman [facility] BASIC METABOLIC PANEL (NA, K, CL, CO2, GLUCOSE, BUN, CREATININE, CA) 2023-05-02 10:15:00 Phill Roman [facility] CBC WITH DIFF 2023-05-02 10:15:00 [facility] 2023-05-02 10:15:00 Phill Roman [facility] HEPATIC FUNCTION PANEL ([id number]) (ALB,T.PRO,BILI T,BU/BC,ALT,AST,ALK PHOS) 2023-05-02 10:15:00 Phill Roman [facility] BASIC METABOLIC PANEL (NA, K, CL, CO2, GLUCOSE, BUN, CREATININE, CA) 2023-05-02 10:15:00 Phill Roman [facility] CBC WITH DIFF 2023-05-02 10:15:00 Phill Roman [facility] [id number] 2022-10-31 00:00:00 MAXBA [facility] [id number] 2022-10-30 00:00:00 [facility] [place] [id number] 2021-03-26 00:00:00 [facility] [place] [place] [id number] 2021-03-26 00:00:00 MAX[facility] Encounters Start Date/Time End Date/Time Encounter Type Admission Type Attending Clinicians Care Facility Care Department Encounter ID Source 2022-10-17 17:56:29 Outpatient X [facility] [id number] [facility] 2021-05-19 04:10:53 Outpatient X [facility] [id number] [facility] 2021-05-19 04:10:48 Emergency [facility] [id number] [facility] 2021-05-18 12:59:52 Emergency [facility] [id number] [facility] 2021-05-18 03:01:47 Emergency [facility] [id number] [facility] 2020-11-23 00:57:29 Inpatient Junior Ramirezia [facility] [id number] [facility] 2020-10-05 01:43:54 Inpatient [facility] [id number] [facility] 2020-08-22 20:18:00 Inpatient [facility] KAELA [id number] [facility] 2020-02-15 22:49:00 Inpatient [facility] KAELA [id number] [facility] 2023-08-23 13:00:00 2023-08-23 13:00:00 Outpatient MADHAVI MCNAIR [facility] [id number] Cynthia [facility] 2023-05-24 13:00:00 2023-05-24 13:00:00 Outpatient MERT HOUSE [place] [facility] [id number] [facility] 2023-05-02 03:19:00 2023-05-03 12:20:00 Outpatient U PHILL ROMAN [facility] [id number] [facility] 2023-05-02 03:19:00 2023-05-03 12:20:00 Hospital Encounter Phill Roman. [facility] [id number] [id number] [id number] [id number] [facility] 2023-05-02 11:24:00 2023-05-02 13:33:00 Surgery Mert Miles [facility] [id number] 350.1.13.10 [id number] [id number] [facility] 2022-10-30 19:17:00 2022-11-02 18:53:00 Inpatient EL Patrica Luis [facility] OBPP [id number] [facility] 2022-10-17 14:59:00 2022-10-17 17:00:00 Outpatient X SUZY URIOSTEGUI [facility] [id number] [facility] 2022-10-17 14:59:00 2022-10-17 17:00:00 Emergency AdSuzy diaz [facility] [id number] [id number] [id number] [id number] [facility] 2022-09-26 22:39:00 2022-09-27 17:00:00 Inpatient EM Luis Burciaga [facility] OBANTE [id number] [facility] 2022-09-07 23:59:00 2022-09-14 10:45:00 Inpatient EM Luis Burciaga [facility] OBANTE [id number] [facility] 2022-08-03 15:04:00 2022-08-03 16:59:00 Emergency EM Effie Ramsay [facility] OLGA [id number] [facility] 2022-03-20 14:10:00 2022-03-20 14:10:00 Outpatient ANTONIA CAPPS [facility] [id number] [facility] 2022-03-20 00:00:00 2022-03-20 00:00:00 Telephone Antonia P[facility] 1.840.114 350.1.13.10 [id number] [id number] [facility] 2022-03-16 14:10:00 2022-03-16 14:10:00 Outpatient ANTONIA CAPPS [facility] [id number] [facility] 2022-03-13 13:30:00 2022-03-13 13:30:00 Outpatient ANTONIA CAPPS [facility] [id number] [facility] 2022-03-13 11:10:00 2022-03-13 11:10:00 Outpatient ANTNOIA CAPPS [facility] [id number] [facility] 2022-03-06 15:06:00 2022-03-06 16:12:00 Emergency EM Ghanshyam Chavez [facility] AERS [id number] [facility] 2022-03-04 00:00:00 2022-03-04 00:00:00 Telephone Antonia Pike [facility] 1.840.114 350.1.13.10 4.2.7.2.686 [id number] [facility] 2022-03-03 00:00:00 2022-03-03 00:00:00 Telephone Antonia Pike [facility] 1.840.114 350.1.13.10 4.2.7.2.686 [id number] [facility] 2022-03-02 17:43:24 2022-03-02 23:59:00 Outpatient ANTONIA CAPPS [facility] [id number] [facility] 2022-03-02 17:43:24 2022-03-02 23:59:00 Outpatient R ANTONIA PIKE [facility] [id number] [facility] 2022-03-02 17:30:00 2022-03-02 23:59:00 Hospital Encounter Antonia Pike [facility] 1.114 350.1.13.10 4.2.7.2.686 [id number] [facility] 2022-02-26 14:50:00 2022-02-26 15:10:00 Nurse Visit Nurse, Frederick Miller [facility] 1.114 350.1.13.10 4.2.7.2.686 [id number] [facility] 2022-02-26 14:50:00 2022-02-26 14:50:00 Outpatient FREDERICK CORRAL [facility] [id number] [facility] 2022-02-25 14:45:00 2022-02-25 23:59:00 Outpatient R ANTONIA PIKE [facility] [id number] [facility] 2022-02-25 14:45:00 2022-02-25 23:59:00 Hospital Encounter Antonia Pike [facility] 1.114 350.1.13.10 4.2.7.2.686 [id number] [facility] 2022-02-25 13:50:00 2022-02-25 15:29:57 Outpatient R SHAHZAD ANTONIA [facility] [id number] [facility] 2022-02-25 13:50:00 2022-02-25 15:29:57 Office Visit Antonia Pike [facility] 1.114 350.1.13.10 [id number] [id number] [facility] 2022-02-23 15:50:00 2022-02-23 15:50:00 Outpatient R PIKE, ANTONIA [facility] [id number] [facility] 2022-02-12 21:31:00 2022-02-12 22:34:00 Emergency X DEBRA [facility] [id number] [facility] 2022-02-12 21:31:00 2022-02-12 22:34:00 Emergency Debra [facility] 1.114 350.1.13.10 [id number] [id number] [facility] 2021-11-11 00:16:00 2021-11-11 00:55:00 Emergency EM Kishor Bishop [facility] AERS [id number] [facility] 2021-11-04 15:30:00 2021-11-04 15:30:00 Outpatient R [facility] [facility] [id number] [facility] 2021-08-08 22:06:00 2021-08-08 22:30:00 Emergency EM Ghanshyam Chavez HCACL AERS [id number] [facility] 2021-06-13 00:00:00 2021-06-13 00:00:00 Refill [facility]havi [facility] 1.114 350.1.13.10 4.2.7.2.686 [id number] [facility] 2021-05-12 13:41:54 2021-05-12 14:13:40 Office Visit Madhavi Roman [facility] 1.114 350.1.13.10 4.2.7.2.686 [id number] [facility] 2021-05-12 13:30:00 2021-05-12 13:30:00 Outpatient MADHAVI MCNAIR [facility] [id number] [facility] 2021-03-25 14:56:00 2021-03-28 15:32:00 Inpatient EL Luis Burciaga HCACL OBPP [id number] [facility] 2021-03-12 21:07:00 2021-03-13 01:05:00 Emergency EM Effie Solitario HCACL OLGA [id number] [facility] 2021-03-01 05:33:00 2021-03-01 09:00:00 Emergency EM Luis Burciaga HCACL OLGA [id number] [facility] 2021-02-17 15:17:00 2021-02-17 16:47:00 Emergency EM Effie Solitario HCACL OLGA [id number] [facility] 2021-02-12 19:14:00 2021-02-12 22:29:00 Emergency EM Effie Solitario HCACL OLGA [id number] [facility] 2021-01-29 02:30:00 2021-01-29 03:50:00 Emergency EM Dottie Chavez HCACL OLGA [id number] [facility] 2021-01-13 01:18:00 2021-01-13 02:30:00 Emergency MeriNathalia [facility] 1.2.840.114 350.1.13.10 4.2.7.2.686 [id number] 2021-01-13 01:18:00 2021-01-13 02:30:00 [facility] 1.2.840.114 350.1.13.10 4.2.7.2.686 [id number] [id number] [facility] 2021-01-11 17:51:24 2021-01-11 18:25:45 Urgent Care Aneta Aguayo [facility] 1.2.840.114 350.1.13.10 4.2.7.2.686 [id number] 2021-01-11 17:51:24 2021-01-11 18:25:45 Urgent Care Aneta Aguayo Unknown, Attending [facility] 1.2.840.114 350.1.13.10 4.2.7.2.686 [id number] 370 [id number] [facility] 2021-01-11 18:00:00 2021-01-11 18:00:00 Outpatient R UNKNOWN, ATTENDING [facility] [id number] [facility] 2020-12-25 15:08:00 2020-12-25 18:26:00 Emergency EM Pearl Chavez HCACL OLGA [id number] [facility] 2020-11-23 00:02:00 2020-11-23 02:58:00 Emergency EM Ashley Brittnee [facility] EDCL OLGA [id number] [facility] 2020-11-01 00:00:00 2020-11-01 00:00:00 Letter (Out) [facility] 1.2.840.114 350.1.13.10 4.2.7.2.686 [id number] 2020-11-01 00:00:00 2020-11-01 00:00:00 [facility] 1.2.[facility].114 350.1.13.10 4.2.7.2.686 [id number] [facility] 2020-10-30 22:11:00 2020-10-31 00:46:00 Emergency Lily Last [facility] 1.2.840.114 350.1.13.10 4.2.7.2.686 [id number] 084 [id number] 2020-10-30 22:11:00 2020-10-31 00:46:00 Emergency Lily Last [facility] 1.2.840.114 350.1.13.10 4.2.7.2.686 [id number] [facility] 2020-10-26 18:33:25 2020-10-26 19:03:11 Urgent Care Aneta Aguayo [facility] 1.2.840.114 350.1.13.10 4.2.7.2.686 [id number] 2020-10-26 18:33:25 2020-10-26 19:03:11 Urgent Care Aneta Aguayo Unknown, Attending [facility] 1.2.840.114 350.1.13.10 4.2.7.2.686 [id number] [facility] 2020-10-26 19:00:00 2020-10-26 19:00:00 Outpatient R UNKNOWN, ATTENDING [facility] [id number] [facility] 2020-09-18 23:47:00 2020-09-19 01:47:00 [facility] 1.[facility].114 350.1.13.10 4.2.7.2.686 [id number] 084 [id number] 2020-09-18 23:47:00 2020-09-19 01:47:00 Emergency Lydia Bojorquez [facility] 1.2.840.114 350.1.13.10 4.2.7.2.686 [id number] [id number] [facility] 2020-09-18 00:00:00 2020-09-18 00:00:00 Orders Only Doctor Unassigned, Long [facility] 1.2.840.114 350.1.13.10 4.2.7.2.686 [id number] 2020-09-18 00:00:00 2020-09-18 00:00:00 Orders Only Doctor Unassigned, Long [facility] 1.2.840.114 350.1.13.10 4.2.7.2.686 [id number] [id number] [facility] 2020-08-22 15:52:31 2020-08-22 16:12:31 Office Visit Madhavi Roman [facility] 1.20.114 350.1.13.10 4.2.7.2.686 [id number] 2020-08-22 15:52:31 2020-08-22 16:12:31 Office Visit Madhavi Roman [facility] 1.2840.114 350.1.13.10 4.2.7.2.686 [id number] [facility] 2020-08-22 16:00:00 2020-08-22 16:00:00 Outpatient MADHAVI MCNAIR [facility] [id number] [facility] 2020-08-22 13:40:00 2020-08-22 13:40:00 Outpatient MADHAVI MCNAIR [facility] [id number] [facility] 2020-08-13 00:00:00 2020-08-13 00:00:00 Telephone DestinyLiberty colindres [facility] 1..114 350.1.13.10 4.2.7.2.686 [id number] [facility] 2020-08-09 00:00:00 2020-08-09 00:00:00 Telephone DestinyLiberty colindres [facility] 1.2840.114 350.1.13.10 4.2.7.2.686 [id number] 225 [id number] [facility] 2020-08-09 00:00:00 2020-08-09 00:00:00 Telephone [place] [facility] 1..114 350.1.13.10 4.2.7.2.686 [id number] 370 [id number] [facility] 2020-08-08 14:46:51 2020-08-08 16:51:17 Office Visit [place] [facility] 1..114 350.1.13.10 4.2.7.2.686 [id number] [facility] 2020-08-08 15:00:00 2020-08-08 15:00:00 Outpatient LIBERTY TOMLINSON [facility] [id number] [facility] 2020-07-03 00:00:00 2020-07-03 00:00:00 Orders Only Doctor Unassigned, Long [facility] 1..114 350.1.13.10 4.2.7.2.686 [id number] [facility] 2020-06-17 13:35:31 2020-06-17 14:15:17 Office Visit Antonia Swain [facility] 1.114 350.1.13.10 4.2.7.2.686 [id number] [facility] 2020-06-17 13:40:00 2020-06-17 13:40:00 Outpatient ELINA FORMAN [facility] [id number] [facility] 2020-05-18 00:00:00 2020-05-18 00:00:00 Kassidy Morris [facility] 1..114 350.1.13.10 4.2.7.2.686 [id number] 225 [id number] [facility] 2020-05-14 00:00:00 2020-05-14 00:00:00 Telephone Elina Rome [facility] 1..114 350.1.13.10 4.2.7.2.686 [id number] [facility] 2020-05-06 00:00:00 2020-05-06 00:00:00 Telephone Elina Rome Dannie Armijo [facility] 1..114 350.1.13.10 4.2.7.2.686 [id number] 225 [id number] [facility] 2020-04-26 15:36:43 2020-04-26 15:56:43 Office Visit Kassidy Arenas [facility] 1..114 350.1.13.10 4.2.7.2.686 [id number] [facility] 2020-04-26 15:40:00 2020-04-26 15:40:00 Outpatient KASSIDY BOONE [facility] [id number] [facility] 2020-04-15 00:00:00 2020-04-15 00:00:00 RefLiberty Mullins [facility] 1.114 350.1.13.10 4.2.7.2.686 [id number] [facility] 2020-01-03 14:40:00 2020-01-03 14:40:00 Outpatient REJI EVANS [facility] [id number] [facility] 2019-10-27 00:00:00 2019-10-27 00:00:00 Telephone Aiden Cooney [facility] 1.114 350.1.13.10 4.2.7.2.686 [id number] [facility] 2019-10-18 23:49:28 2019-10-19 02:20:00 Emergency X SOSA ADAMES [facility] ERT [id number] [facility] 2019-10-18 23:49:28 2019-10-19 02:20:00 Emergency Sosa Adames [facility] 1.2.840.114 350.1.13.10 4.2.7.2.686 [id number] [facility] 2019-10-18 00:00:00 2019-10-18 00:00:00 Nurse Triage Santiago Sandra S [facility] 1.2.840.114 350.1.13.10 4.2.7.2.686 [id number] [facility] 2019-10-09 00:00:00 2019-10-09 00:00:00 Telephone Aiden Cooney [facility] 1.2.840.114 350.1.13.10 4.2.7.2.686 [id number] [facility] 2019-09-21 13:27:07 2019-09-21 17:09:32 Office Visit [place] [facility] 1.2.840.114 350.1.13.10 4.2.7.2.686 [id number] 225 [id number] [facility] 2019-09-21 13:40:00 2019-09-21 13:40:00 Outpatient R LIBERTY CAMP [facility] [id number] [facility] 2019-08-30 15:01:37 2019-08-30 15:11:37 Office Visit Antonia Pike [facility] 1.2.840.114 350.1.13.10 4.2.7.2.686 [id number] [facility] 2019-08-22 15:33:37 2019-08-22 15:43:37 Office Visit Aiden Cooney [facility] 1.2.840.114 350.1.13.10 4.2.7.2.686 [id number] 225 [id number] [facility] 2019-08-21 09:14:31 2019-08-21 10:35:00 Emergency Ashley Avendano [facility] 1.2.840.114 350.1.13.10 4.2.7.2.686 [id number] [facility] 2019-08-10 11:01:47 2019-08-10 11:21:47 Nurse Visit NurseOsvaldo Maria P Alvin [facility] 1.2.840.114 350.1.13.10 4.2.7.2.686 [id number] [facility] 2019-08-09 09:22:22 2019-08-09 12:41:52 Office Visit Antonia Pike [facility] 1.2.840.114 350.1.13.10 4.2.7.2.686 [id number] [facility] 2019-08-09 00:00:00 2019-08-09 00:00:00 Orders Only Antonia Pike [facility] 1.2.840.114 350.1.13.10 4.2.7.2.686 [id number] [facility] 2019-07-28 00:00:00 2019-07-28 00:00:00 Orders Only Doctor Unassigned, Long [facility] 1.2.840.114 350.1.13.10 4.2.7.2.686 [id number] [facility] 2019-03-30 12:55:51 2019-03-30 13:15:51 Office Visit Kassidy Arenas [facility] 1.2.840.114 350.1.13.10 4.2.7.2.686 [id number] 225 [id number] [facility] 2019-03-29 00:00:00 2019-03-29 00:00:00 Telephone Elina Rome [facility] 1.2.840.114 350.1.13.10 4.2.7.2.686 [id number] [facility] 2019-03-27 09:41:28 2019-03-27 09:51:28 Office Visit Aiden Cooney [facility] 1.2.840.114 350.1.13.10 4.2.7.2.686 [id number] [facility] 2019-03-22 15:41:22 2019-03-22 23:59:00 Hospital Encounter Aiden Cooney [facility] 1.2.840.114 350.1.13.10 4.2.7.2.686 [id number] [facility] 2019-03-21 15:31:39 2019-03-22 09:26:38 Office Visit Mike HeardAiden truong [facility] 1.2.840.114 350.1.13.10 4.2.7.2.686 [id number] [facility] 2019-03-08 09:03:07 2019-03-08 09:13:07 Office Visit Aiden Cooney [facility] 1.2.840.114 350.1.13.10 4.2.7.2.686 [id number] [facility] 2019-03-03 10:38:58 2019-03-03 11:09:50 Office Visit Aiden Cooney [facility] 1.2.840.114 350.1.13.10 4.2.7.2.686 [id number] [facility] 2019-02-10 15:44:39 2019-02-10 23:59:00 Hospital Encounter Sujata Carter [facility] 1.2.840.114 350.1.13.10 4.2.7.2.686 [id number] [facility] 2019-02-10 08:00:00 2019-02-10 15:43:00 Hospital Encounter Vonnie johnson, [facility] 1.2.840.114 350.1.13.10 4.2.7.2.686 [id number] [facility] Results Test Description Test Time Test Comments Results Result Co mments Source [facility] WITH [id number] 11:43:20* Test Item Value Reference Range Interpretation [...] 32.0 g/dL 31.6-35.1 RDW-SD (test code = 11224-6) 47.8 fL 39.0-49.9 RDW-CV (test code = 788-0) 14.8 % 12.0-15.5 PLT (test code = 777-3) 282 See_Comment [Automated messa ge] The system which generated this result transmitted reference range: 166 - 358 10*3/?L. The reference range was not used to interpret this result as normal/abnormal. MPV (test code = 21437-0) 10.6 fL 9.5-12.9 NRBC/100 WBC (test code = 8908227216) 0.0 See_Comment [Automated me ssage] The system which generated this result transmitted reference range: 0.0 - 10.0 /100 WBCs. The reference range was not used to interpret this result as normal/abnormal. NRBC x10^3 (test code = 8385781882) See_Comment [Automated messa ge] The system which generated this result transmitted reference range: 10*3/?L. The reference range was not used to interpret this result as normal/abnormal. GRAN MAT (NEUT) % (test code = 770-8) 51.7 % IMM GRAN % (test code = 8353331362) 0.20 % LYMPH % (test code = 736-9) 40.7 % MONO % (test code = 5905-5) 6.6 % EOS % (test code = 713-8) 0.4 % BASO % (test code = 706-2) 0.4 % GRAN MAT x10^3(ANC) (test code = 3287452877) 4.76 10*3/uL 1.88-7.09 IMM GRAN x10^3 (test code = 4707240248) 0.00-0.06 LYMPH x10^3 (test code = 731-0) 3.76 10*3/uL 1.32-3.29 H MONO x10^3 (test code = 742-7) 0.61 10*3/uL 0.33-0.92 EOS x10^3 (test code = 711-2) 0.04 10*3/uL 0.03-0.39 BASO x10^3 (test code = 704-7) 0.04 10*3/uL 0.01-0.07 Lab Interpretation (test code = 13358-4) Abnormal [facility] [id number] 15:31:00* Test Item Value Reference Range Interpretation Comme nts POCT PREG (test code = 1605) Negative On board controls acceptable with C Line (test code = 3574) Yes POCT PREG LOT # (test code = 3575) POCT PREG TEST DATE ( test code = 3576) [id number] 15:31:00* Test Item Value Reference Range Interpretation Comme nts POCT PREG (test code = 1605) Negative On board controls acceptable with C Line (test code = 3574) Yes POCT PREG LOT # (test code = 3575) POCT PREG TEST DATE ( test code = 3576) [facility] [id number] 11:21:25* Test Item Value Reference Range Interpretation Comme nts MAGNESIUM (test code = 6917604118) 2.2 mg/dL 1.7-2.4 Lab Interpretation (test cod e = 50930-8) Normal [facility] [id number] 11:21:25* Test Item Value Reference Range Interpretation Comme nts MAGNESIUM (test code = 1545209422) 2.2 mg/dL 1.7-2.4 Lab Interpretation (test cod e = 85535-1) Normal [facility] METABOLIC PANEL (NA, K, CL, CO2, GLUCOSE, BUN, CREATININE, CA)2023-05-02 11:21:05* Test Item Value Reference Range Interpretation Comme nts NA (test code = 1264319025) 138 mmol/L 135-145 K (test code = 0107903700) 3.8 mmol/L 3.5-5.0 CL (test code = 8363686144) 102 mmol/L 98-108 CO2 TOTAL (test code = 5167618984) 22 mmol/L 23-31 L AGAP (test code = 5586723898) 14 2-16 BUN (test code = 4826362653) 21 mg/dL 7-23 GLUCOSE (test code = 8536388941) 88 mg/dL 70-110 CREATININE (test code = 7316534122) 0.65 mg/dL 0.50-1.04 CALCIUM (test code = 3831468691) 9.3 mg/dL 8.6-10.6 eGFR (test code = 5492906431) 116.2 mL/min/1.73m2 RADHA (test code = RADHA) [...] imaging tests). Lab Interpretation (test code = 53118-8) [facility] (ALB,T.PRO,BILI T,BU/BC,ALT,AST,ALK PHOS)2023-05-02 11:21:05* Test Item Value Reference Range Interpretation Comme nts TOTAL BILI (test code = 3252366864) 0.3 mg/dL 0.1-1.1 BILI UNCON (test code = 6899179615) 0.2 mg/dL 0.1-1.1 BILI CONJ (test code = 9214619357) 0.0 mg/dL 0.0-0.3 T PROTEIN (test code = 1819107422) 7.6 g/dL 6.3-8.2 ALBUMIN (test code = 0987698097) 4.4 g/dL 3.5-5.0 ALK PHOS (test code = 7516971078) 72 U/L 34-122 ALTv (test code = 1742-6) 13 U/L 5-35 AST(SGOT) (test code = 0964132473) 17 U/L 13-40 Lab Interpretation (test cod e = 20592-9) Normal [facility] METABOLIC PANEL (NA, K, CL, CO2, GLUCOSE, BUN, CREATININE, CA)2023-05-02 11:21:05* Test Item Value Reference Range Interpretation Comme nts NA (test code = 4615505421) 138 mmol/L 135-145 K (test code = 3204076732) 3.8 mmol/L 3.5-5.0 CL (test code = 2163413948) 102 mmol/L 98-108 CO2 TOTAL (test code = 6793586648) 22 mmol/L 23-31 L AGAP (test code = 3681717630) 14 2-16 BUN (test code = 8757652907) 21 mg/dL 7-23 GLUCOSE (test code = 7301669443) 88 mg/dL 70-110 CREATININE (test code = 8216190751) 0.65 mg/dL 0.50-1.04 CALCIUM (test code = 9071057386) 9.3 mg/dL 8.6-10.6 eGFR (test code = 1883608648) 116.2 mL/min/1.73m2 RADHA (test code = RADHA) [...] imaging tests). Lab Interpretation (test code = 80117-2) [facility]normal [facility]60[facility] (ALB,T.PRO,BILI T,BU/BC,ALT,AST,ALK PHOS)2023-05-02 11:21:05* Test Item Value Reference Range Interpretation Comme nts TOTAL BILI (test code = 0931697427) 0.3 mg/dL 0.1-1.1 BILI UNCON (test code = 0303606614) 0.2 mg/dL 0.1-1.1 BILI CONJ (test code = 2543046804) 0.0 mg/dL 0.0-0.3 T PROTEIN (test code = 1396905123) 7.6 g/dL 6.3-8.2 ALBUMIN (test code = 8304252303) 4.4 g/dL 3.5-5.0 ALK PHOS (test code = 2164619319) 72 U/L 34-122 ALTv (test code = 1742-6) 13 U/L 5-35 AST(SGOT) (test code = 3618487267) 17 U/L 13-40 Lab Interpretation (test cod e = 31209-5) Normal [facility] with [id number] 10:46:23* Test Item Value Reference Range Interpretation Comme nts WBC (test code = 6690-2) 7.54 See_Comment [Automated [employer]] The system which generated this result transmitted reference range: 4.30 - 11.10 10*3/?L. The reference range was not used to interpret this result as normal/abnormal. RBC (test code = 789-8) 4.05 See_Comment [Automated [employer]] The system which generated this result transmitted [...] 32.3 g/dL 31.6-35.1 RDW-SD (test code = 18786-4) 46.6 fL 39.0-49.9 RDW-CV (test code = 788-0) 14.7 % 12.0-15.5 PLT (test code = 777-3) 283 See_Comment [Automated messa ge] The system which generated this result transmitted reference range: 166 - 358 10*3/?L. The reference range was not used to interpret this result as normal/abnormal. MPV (test code = 92619-8) 10.5 fL 9.5-12.9 NRBC/100 WBC (test code = 9156501476) 0.0 See_Comment [Automated me ssage] The system which generated this result transmitted reference range: 0.0 - 10.0 /100 WBCs. The reference range was not used to interpret this result as normal/abnormal. NRBC x10^3 (test code = 2999315298) See_Comment [Automated messa ge] The system which generated this result transmitted reference range: 10*3/?L. The reference range was not used to interpret this result as normal/abnormal. GRAN MAT (NEUT) % (test code = 770-8) 40.7 % IMM GRAN % (test code = 8873765540) 0.10 % LYMPH % (test code = 736-9) 48.4 % MONO % (test code = 5905-5) 8.8 % EOS % (test code = 713-8) 1.3 % BASO % (test code = 706-2) 0.7 % GRAN MAT x10^3(ANC) (test code = 0078207439) 3.07 10*3/uL 1.88-7.09 IMM GRAN x10^3 (test code = 7867120149) 0.00-0.06 LYMPH x10^3 (test code = 731-0) 3.65 10*3/uL 1.32-3.29 H MONO x10^3 (test code = 742-7) 0.66 10*3/uL 0.33-0.92 EOS x10^3 (test code = 711-2) 0.10 10*3/uL 0.03-0.39 BASO x10^3 (test code = 704-7) 0.05 10*3/uL 0.01-0.07 Lab Interpretation (test code = 27581-2) Abnormal [facility] with Lzenvifbwgpf4191-34-29 10:46:23* Test Item Value Reference Range Interpretation Comme nts WBC (test code = 6690-2) 7.54 See_Comment [Automated [employer] ge] The system which generated this result transmitted reference range: 4.30 - 11.10 10*3/?L. The reference range was not used to interpret this result as normal/abnormal. RBC (test code = 789-8) 4.05 See_Comment [Automated [employer] ge] The system which generated this result [...] 32.3 g/dL 31.6-35.1 RDW-SD (test code = 59440-3) 46.6 fL 39.0-49.9 RDW-CV (test code = 788-0) 14.7 % 12.0-15.5 PLT (test code = 777-3) 283 See_Comment [Automated [employer] ge] The system which generated this result transmitted reference range: 166 - 358 10*3/?L. The reference range was not used to interpret this result as normal/abnormal. MPV (test code = 70151-4) 10.5 fL 9.5-12.9 NRBC/100 WBC (test code = 8371131221) 0.0 See_Comment [Automated me ssage] The system which generated this result transmitted reference range: 0.0 - 10.0 /100 WBCs. The reference range was not used to interpret this result as normal/abnormal. NRBC x10^3 (test code = 3766607673) See_Comment [Automated messa ge] The system which generated this result transmitted reference range: 10*3/?L. The reference range was not used to interpret this result as normal/abnormal. GRAN MAT (NEUT) % (test code = 770-8) 40.7 % IMM GRAN % (test code = 5198503356) 0.10 % LYMPH % (test code = 736-9) 48.4 % MONO % (test code = 5905-5) 8.8 % EOS % (test code = 713-8) 1.3 % BASO % (test code = 706-2) 0.7 % GRAN MAT x10^3(ANC) (test code = 2857158903) 3.07 10*3/uL 1.88-7.09 IMM GRAN x10^3 (test code = 1901613201) 0.00-0.06 LYMPH x10^3 (test code = 731-0) 3.65 10*3/uL 1.32-3.29 H MONO x10^3 (test code = 742-7) 0.66 10*3/uL 0.33-0.92 EOS x10^3 (test code = 711-2) 0.10 10*3/uL 0.03-0.39 BASO x10^3 (test code = 704-7) 0.05 10*3/uL 0.01-0.07 Lab Interpretation (test code = 41309-6) Abnormal [facility]2023-04-18 14:08:00* Test Item Value Reference Range Interpretation Comme nts SURGICAL (test code = SR) R UN DATE: 11/03/22 [place] - LAB PAGE 1 RUN TIME: 1409 Specimen Inquiry RUN USER: INTERFACE P ATIENT: LUIS EDMONDS LOC: JORDI U #: [id number] AGE/SX: 21/F ROOM: [facility] RE10/30/22REG DR: Luis Burciaga MD : 02 BED: 1 DIS: 11/02/22 STATUS: DIS IN TLOC: SPEC #: [id number] RECD: 11/02/22 STATUS: GLENN REGreta #: [id number] SLOAN: 10/31/22- SUBM DR: Luis Burciaga MD ENTERED: 11/02/22 SP TYPE: SURGICAL OTHR DR: ORDERED: [id number], ANATOMIC SPEC PROCEDURES: 81009 (11/02/22) TISSUES: A. PLACENTA, THIRD TRIMESTER (28 + WEEKS) CLINICAL HISTORY SAME, DELIVERED FINAL DIAGNOSIS Placenta: Third trimester placenta with acute chorionitis, deciduitis; 713 g (expected ouug404 g); trivascular umbilical cord without significant inflammation.. [...] weighs 713 g. Technical component performed at [facility],[address] [place] [address], [place] [address] Unless gross only, the diagnosis is based [...] INFORMATION 37.1 IUP Signed SIGNATURE ON FILE Mary Emmanuelashli 11/03/22 1408 END OF REPORT CBC W/AUTO [id number] 07:54:00* Test Item Value Reference Range Interpretation [...] c ode = MDIFF) NO RAPID PLASMA [id number] 11:50:00* Test Item Value Reference Range Interpretation Comme nts RAPID PLASMA REAGIN (test co de = RPR) NONREACTIVE NONREACTIVE AG HEPATITIS B [id number] 11:50:00* Test Item Value Reference Range Interpretation Comme nts AG HEPATITIS B SURFACE (test code = HBSAG) NON REACTIVE INDEX NonReactive AB HIV 1 11:50:00* Test Item Value Reference Range Interpretation Comme nts AB HIV 1 2 (test code = USY46UB) Nonreactive Nonreactive CBC W/AUTO [id number] 19:59:00* Test Item Value Reference Range Interpretation [...] c ode = MDIFF) NO AMNISURE (ROM) [id number] 18:12:00* Test Item Value Reference Range Interpretation Comme nts AMNISURE (ROM) TEST (test co de = AMNI) POSITIVE NEGATIVE A AMNISURE (ROM) [id number] 21:41:00* Test Item Value Reference Range Interpretation Comme nts AMNISURE (ROM) TEST (test co de = AMNI) NEGATIVE NEGATIVE [id number] 20:11:00* Test Item Value Reference Range Interpretation Comme nts FIBRONECTIN (test code = FFN) POSITIVE NEGATIVE A UA RFLX MICR CULT IF [id number] 20:11:00* Test Item Value Reference Range Interpretation [...] PainSpecimen Description: CLEAN CATCHDRUGS OF ABUSE SCREEN [id number] 20:10:00* Test Item Value Reference Range Interpretation [...] be used for non-medical purposes. - BIOPHYS [id number] 00:00:[address] [facility] MADELINE THAYERName: BI EDMONDS : 2000 Sex: F Name: BI EDMONDS [facility] [place] : 2000 Age/S: 21 / F [address] [place] [address] Unit #: [id number] Loc: [place] [address] Phys: Zoila Gomez Acct: [id number] Dis Date: Status: REG ER PHONE #: [phone] Exam Date: 09/26/20222004 FAX #: [phone] Reason: decreased FM EXAMS: CPT CODE: [id number] US BIOPHYS PROF [id number] PROCEDURE INFORMATION: Exam: US Biophysical Profile Without Non-Stress Test Exam date and time: 09/26/2022 7:49 PM Age: 21 years old Clinical indication: Pain indication: Abdominal pain; ; Additional info: Decreased fm TECHNIQUE: Imaging protocol: US biophysical profile without non-stress testing. COMPARISON: US FET BIO PH NE W/O NST 09/07/2022 11:03 PM A limited [...] CC: Zoila Gomez DO Technologist: Josefina Fitch [facility] [place] Date/Time: 09/26/2022 (2113) Karoline Orig Print D/T: S: 09/26/2022 (2113) Probe: PAGE 1 Signed Report- US PREG AFTER [id number] 00:00:00 [facility] 2000 Sex: F Name: BI EDMONDS [facility] [place] : 2000 Age/S: 21 / F [address] [place] [address] Unit #: [id number] Loc: [place] [address] Phys: Zoila Gomez DO Acct: [id number] Dis Date: Status: REG ER PHONE #: [phone] Exam Date: 09/26/20222004 FAX #: [phone] Reason: PTL EXAMS: CPT CODE: [id number] US PREG AFTER TRI 25839 PROCEDURE INFORMATION: Exam: US After First Trimester, [...] 1 Signed Report (CONTINUED) Name: BI EDMONDS [facility] : 2000 Age/S: 21 / F [address] [place] [address] Unit #: [id number] Loc: [place] [address] Phys: Zoila Gomez DO Acct: [id number] Dis Date: Status: REG ER PHONE #: [phone] Exam Date: 09/26/20222004 FAX #: [phone] Reason: PTL EXAMS: CPT CODE: [id number] US PREG AFTER 1ST TRI 51116 (Continued) movement: 2. breathin Amniotic fluid: 2 Total score 8/8 IMPRESS ION: 1. Single viable intrauterine gestation in cephalic presentation. 2. Normal growth concordant with dates. 3. Normal biophysical profile. at 2117 Reported and signed by: Jeromy Wolfe M.D. CC: Zoila Gomez DO Technologist: Josefina Fitch [facility] Date/Time: 09/26/2022 (2116) [email or web address] Orig Print D/T: S: 09/26/2022 (2116) Probe: PAGE 2 Signed ReportAMNISURE (ROM) [id number] 14:39:00* Test Item Value Reference Range Interpretation Comme nts AMNISURE (ROM) TEST (test co de = AMNI) NEGATIVE NEGATIVE CHLAMYDIA GC DNA BY [id number] 13:07:00* Test Item Value Reference Range Interpretation Comme nts C. TRACHOMATIS DNA BY PCR (test code = CHLAMTDNA) Negative Negative N. GONORRHOEAE DNA BY PCR (test code = NGONORDNA) Negative Negative Performed At: [facility] [address] [id number] Marc Rosales MD Ph:[phone] UA RFLX MICR CULT IF [id number] 21:16:00* Test Item Value Reference Range Interpretation [...] culture: Suprapubic PainSpecimen Description: CLEAN CATCHRAPID PLASMA [id number] 11:04:00* Test Item Value Reference Range Interpretation Comme nts RAPID PLASMA REAGIN (test co de = RPR) NONREACTIVE NONREACTIVE AG HEPATITIS B [id number] 11:04:00* Test Item Value Reference Range Interpretation Comme nts AG HEPATITIS B SURFACE (test code = HBSAG) NON REACTIVE INDEX NonReactive AB HIV 1 11:04:00* Test Item Value Reference Range Interpretation Comme nts AB HIV 1 2 (test code = ZRA41AT) Nonreactive Nonreactive [id number] 08:05:00* Test Item Value Reference Range Interpretation Comme nts MAGNESIUM (test code = MAG) 4.22 mg/dL 1.80-2.40 HH CBC W/AUTO [id number] 00:08:00* Test Item Value Reference Range Interpretation [...] MDIFF) NO - US FET BIO PH NE W/O [id number] 00:00:00 [facility]ABELLE : 2000 Sex: F Name: LUIS EDMONDS [facility] : 2000 Age/S: 21 / F [address] [place] [address] Bl Unit #: [id number] Loc: [place] [address] Phys: Juany Carrillo MD Acct: [id number] Dis Date: Status: ADMIN PHONE #: [phone] Exam Date: 09/07/20226 FAX #: [phone] Reason: IUP@29 wks; Leaking fluid; ROM plus positive EXAMS: CPT CODE: [id number] US FET BIO PH NE W/O NST 30942 PROCEDURE INFORMATION: Exam: US , Limited Exam [...] of a single intrauterine in cephalic position. F etal cardiac activity is detected with a heart [...] 1 Signed Report (CONTINUED) Name: LUIS EDMONDS [facility] [place] : 2000 Age/S: 21 / F [address] [place] [address] Unit #: [id number] Loc: [place] [address] Phys: Juany Carrillo MD Acct: [id number] Dis Date: Status: ADM IN PHONE #: [phone] Exam Date: 09/07/2022 2316 FAX #: [phone] Reason: IUP@29 wks; Leaking fluid; ROM plus positive EXAMS: CPT CODE: [id number] US FET BIO PH NE W/O NST 75608(Continued) A limited transabdominal obstetrical ultrasound was performed for biophysical pro file determination. The ultrasound reveals the presence of [...] tone and amniotic fluid volume giving a biophysicalprofile score of 8/8. The average umbilical artery S/D ratio was 3.4. IMPRESSION: 1. Single living i ntrauterine in cephalic position. 2. biophysical profile score of 8/8. SL: 131. at 0002 Reported and signed by: Malcolm Wilson M.D. CC: Juany Carrillo MD Technologist: Victoria Tripathi RDMS(AB)(OB) Trnscb Date/Time: 09/08/2022 (1) Karoline Orig Print D/T: S: 09/08/2022 (1) Probe: PAGE 2 Signed Report- US [id number] 00:00:[address] [facility] MADELINE THAYERName: LUIS EDMONDS : 2000 Sex: FName: LUIS EDMONDS [facility] [place] : 2000 Age/S: 21 / F [address] [place] [address] Bl Unit #:[id number] Loc: [place] [address] Phys: Juany Carrillo MD Acct: [id number] Dis Date: Status: ADMIN PHONE #: [phone] Exam Date: 09/07/20225 FAX #: [phone] Reason: see US FET BIO PH NE W/O NST EXAMS: CPT CODE: [id number] US LTD 83819 PROCEDURE INFORMATION: Exam: US , Limited Exam [...] intrauterine in cephalic position. cardiac activity is de tected with a heart rate of 152 bpm. The placenta is anteriorly positioned and demonstrates grade 1echotexture. There is no evidence of placenta previa [...] 1 Signed Report (CONTINUED) Name: LUIS EDMONDS [facility] : 2000 Age/S: 21 / F [address] [place] [address] Unit #: [id number]: [place] [address] Phys: Juany Carrillo MD Acct: [id number] Dis Date: Status: ADM IN PHONE #: [phone] Exam Date: 09/07/20225 FAX #: [phone] Reason: see US FET BIO PH NE W/O NSTEXAMS: CPT CODE: [id number] US LTD 34366 (Continued) A limited transabdominal obstetricalultrasound was performed for biophysical profile determination. The [...] Victoria Tripathi RDMS(AB)(OB) Trnscb Date/Time: 09/08/2022 (1) [email or web address] Orig Print D/T: S: 09/08/2022 (0002) Probe: PAGE 2 Signed ReportAMNISURE (ROM) [id number] 22:26:00* Test Item Value Reference Range Interpretation Comme nts AMNISURE (ROM) TEST (test co de = AMNI) POSITIVE NEGATIVE A UA RFLX MICR CULT IF [id number] 22:12:00* Test Item Value Reference Range Interpretation [...] for culture: Suprapubic PainSpecimen Description: CLEAN CATCHFETAL [id number] 16:47:00* Test Item Value Reference Range Interpretation Comme nts FIBRONECTIN (test code = FFN) NEGATIVE NEGATIVE URINALYSIS [id number] 16:34:00* Test Item Value Reference Range Interpretation [...] SEEN - XR ANKLE 3 + V [id number] 00:00:00 [facility] : 2000 Sex: F FAX: Emily Mckoy MD [phone] [place]: [place] St: PRE FAX: Romeo Chavez Name: LUIS EDMONDS [facility] : 2000 Age/S: 21/F [address] [facility] Unit #: [id number] Loc: [place] [address] Phys:Ghanshyam Chavez MD Acct: [id number] Dis Date: Status: PRE ER PHONE #: Exam Date: 03/06/2022 1600 FAX #: Reason: R ANKLE PAIN AFTER FALL EXAMS: CPT CODE: [id number] XR ANKLE 3 + [place] [address] PROCEDURE INFORMATION: Exam: XR Right Ankle Exam [...] Emily Artis MD; Otoniel Chavez MD Technologist: RT Valerie(R)(CT) Trnscrd Date/Time/By: 03/06/2022 (9910) :By: KaneSBL Orig Print D/T: S: 03/06/2022 (4182) PAGE 1 Signed Report- XR FOOT 3 + V [id number] 00:00:00 [facility] CAT[facility]ACHO ED[facility]DSABELLE : 2000 Sex: F FAX: Emily Mckoy MD [phone] [place]: [place] St: PRE FAX: Romeo Chavez Name: LUIS EDMONDS [facility] : 2000 Age/S: 21/F [address] [facility] Unit #: [id number] Loc: [place] [address] Phys: Ghanshyam Chavez MD Acct: [id number] Dis Date: Status: PRE ER PHONE #: Exam Date: 03/06/2022 9865 FAX #: Reason: r foot injury EXAMS: CPT CODE: [id number] XR FOOT 3 + V RT 91768 PROCEDURE INFORMATION: Exam: XR Right Foot Exam [...] MD Technologist: RT Valerie(R)(CT) Trnscrd Date/Time/By: 03/06/2022 (8439) : By: SandraL Orig Print D/T: S: 03/06/2022 (4144) PAGE 1 Signed ReportURINE HCG TRIAGE (ER ONLY)2021-11-11 08:40:00* Test Item Value Reference Range Interpretation Comme nts URINE HCG TRIAGE (ER ONLY) ( test code = HCGTRIAGE) NEGATIVE Negative Urine Test Result: NEGATIVEAre internal controls (presence of a control line & clear background) OK? YLot # of HCG Test Kit: [id number] Date of Kit: 02/15/23Test Performed by:Carlo Perfomed on: 11/11/21COMMENTS: NEGATIVEUA DIPSTICK [id number] 00:46:00* Test Item Value Reference Range Interpretation Comme nts UA GLUCOSE DIPSTIC POC (test code = GLUUP) NEGATIVE NEGATIVE UA BILIRUBIN DIPSTICK (test code = BILU) NEGATIVE NEGATIVE UA KETONE DIPSTICK POC (test code = KETUP) NEGATIVE NEGATIVE UA SPECIFIC GRAVITY (test code = SGU) 1.010 1.005-1.030 N UA BLOOD DIPSTIC POC (test code = BLUP) NEGATIVE NEGATIVE Performed by certified hoist operator at [facility] UA PH DIPSTIC POC (test code = PHUP) 7 5.0-7.0 N UA PROTEIN DIPSTICK POC (test code = DPROUP) NEGATIVE NEGATIVE UA UROBILINIOGEN QUAL (test code = UROQL) NORMAL 0.2-1.0 UA NITRITE DIPSTICK POC (test code = NITUP) NEGATIVE Negative UA LEUKOCYTE ESTERASE W REFLEX (test code = LEUUR) Negative NEGATIVE SURGICAL PATH [id number] 13:13:00* Test Item Value Reference Range Interpretation Comme nts SURGICAL PATH SPECIMENS (test code = S) RUN DATE: 03/28/21 [place] - LAB PAGE 1 RUN TIME: 1313 Specimen Inquiry RUN USER: INTERFACE ARTEMIO ENT: LUIS EDMONDS LOC: SantiagoWilberto U #: [id number] AGE/SX: 20/F ROOM: [facility] RE03/25/21REG DR: Luis Burciaga MD : [birth year] BED: 1 DIS: STATUS: ADM IN TLOC: SPEC #: [id number] RECD: 03/27/21 STATUS: GLENN EVERETT #: [id number] SLOAN: 03/26/21- SUBM DR: Luis Burciaga MD ENTERED: 03/27/21 SP TYPE: SURG SPEC OTHR DR: ORDERED: GM LEVEL 5 CODES: HS0661 - PLACENTA, NOS PROCEDURES: GM LEVEL 5 [...] 03/28/21 1313 END OF REPORT CBC W/AUTO [id number] 07:03:00* Test Item Value Reference Range Interpretation [...] ode = MDIFF) NO CORD VENOUS BLOOD [id number] 18:41:00* Test Item Value Reference Range Interpretation [...] = O2SCV) 17 % CORD ARTERIAL BLOOD [id number] 18:40:00* Test Item Value Reference Range Interpretation [...] O2S/C) 25 % 72-77 L RAPID PLASMA [id number] 10:40:00* Test Item Value Reference Range Interpretation Comme nts RAPID PLASMA REAGIN (test co de = RPR) NONREACTIVE NONREACTIVE AG HEPATITIS B [id number] 10:40:00* Test Item Value Reference Range Interpretation Comme nts AG HEPATITIS B SURFACE (test code = HBSAG) NON REACTIVE INDEX NonReactive AB HIV 1 10:40:00* Test Item Value Reference Range Interpretation Comme nts AB HIV 1 2 (test code = DWI86SP) Nonreactive Nonreactive COVID 19 Asymptomatic IH [id number] 20:20:00* Test Item Value Reference Range Interpretation [...] perform moderate, high or waivedcomplexity tests. URINALYSIS [id number] 18:48:00* Test Item Value Reference Range Interpretation [...] MUCU) TRACE /LPF NONE SEEN RAPID PLASMA [id number] 18:11:00* Test Item Value Reference Range Interpretation Comme nts RAPID PLASMA REAGIN (test code = RPR) NONREACTI VE AG HEPATITIS B [id number] 18:11:00* Test Item Value Reference Range Interpretation Comme nts AG HEPATITIS B SURFACE (test code = HBSAG) NON REACTIVE INDEX NonReactive AB HIV 1 18:11:00* Test Item Value Reference Range Interpretation Comme nts AB HIV 1 2 (test code = BDO91JL) Nonreactive Nonreactive COMPREHENSIVE METABOLIC [id number] 17:45:00* Test Item Value Reference Range Interpretation [...] = ALKP) 153 IUnit/L 60-350 N URIC [id number] 17:45:00* Test Item Value Reference Range Interpretation Comme nts URIC ACID (test code = URIC) 4.0 mg/dL 2.6-7.2 N LACTIC DEHYDROGENASE(LDH)2021-03-25 17:45:00* Test Item Value Reference Range Interpretation Comme nts LACTIC DEHYDROGENASE(LDH) (t est code = LDH) 225 IUnits/L 84-246 N CBC W/AUTO [id number] 17:24:00* Test Item Value Reference Range Interpretation [...] (test c ode = MDIFF) CBC W/AUTO [id number] 17:24:00* Test Item Value Reference Range Interpretation [...] ode = MDIFF) NO - US BIOPHYS [id number] 00:00:00 [facility] 2000 Sex: FName: LUIS EDMONDS [facility] [place] : 2000 Age/S: 20 / F [address] [place] [address] Unit #:[id number] Loc: [place] [address] Phys: Effie Solitario MD Acct: [id number] Dis Date: Status: REG ER PHONE #: [phone] Exam Date: 03/12/20212 FAX #: [phone] Reason: Possible SROM, please evaluate ISMA EXAMS: CPT CODE: [id number] US BIOPHYS PROF 34828 PROCEDURE INFORMATION: E xam: US Biophysical Profile [...] (56) Probe: PAGE 1 Signed ReportAMNISURE (ROM) [id number] 22:05:00* Test Item Value Reference Range Interpretation Comme nts AMNISURE (ROM) TEST (test co de = AMNI) NEGATIVE NEGATIVE URINALYSIS [id number] 21:48:00* Test Item Value Reference Range Interpretation [...] = MUCU) TRACE /LPF NONE SEEN URINALYSIS [id number] 07:00:00* Test Item Value Reference Range Interpretation [...] TRACE /LPF NONE SEEN - US BIOPHYS [id number] 00:00:00 [facility] : 2000 Sex: FName: LUIS EDMONDS [facility] : 2000 Age/S: 20 / F [address] [place] [address] Unit #: [id number] Loc: [place] [address] Phys: Effie Solitario MD Acct: [id number] Dis Date: Status: REG ER PHONE #: [phone] Exam Date: 03/01/2021 0758 FAX #: [phone] Reason: decreased movements EXAMS: CPT CODE: [id number] US BIOPHYS PROF 83872 PROCEDURE INFORMATION: Exam: US Biophysical Profile With Non-Stress Test Exam date and time: 03/01/2021 7:32 AM Age: 20 yearsold Clinical indication: Other: Decreased movement; ; Additional info: Decreased movements TECHNIQUE: Imaging protocol: biophysical profile with non-stress test. COMPARISON:US BIOPHYS PROF 02/12/2021 8:58 PM FINDINGS: heart rate: heart rate 136 bpm. Placenta: Anterior placenta. BIOPHYSICAL PROFILE: Breathin/2 Gross body movements: 2/2 tone: 2/2 Qualitative amniotic fluid: 2/2 Other findings: Cephalic position. SD ratio 2.6, 2.4, 3.1. IMPRESSION: Biophysical profile score is 8/8. at 0810 Reported and signed by: Nilton Frederick M.D. CC: Technologist: Vilma Rboles RDMS() Trnscb Date/Time: 03/01/2021 (809) [email or web address] Orig Print D/T: S: 03/01/2021 (0811) Probe: PAGE 1 Signed Report AMNISURE (ROM) [id number] 16:16:00* Test Item Value Reference Range Interpretation Comme nts AMNISURE (ROM) TEST (test co de = AMNI) NEGATIVE NEGATIVE [id number] 16:16:00* Test Item Value Reference Range Interpretation Comme nts FIBRONECTIN (test code = FFN) NEGATIVE NEGATIVE [id number] 20:50:00* Test Item Value Reference Range Interpretation Comme nts FIBRONECTIN (test code = FFN) NEGATIVE NEGATIVE URINALYSIS [id number] 20:32:00* Test Item Value Reference Range Interpretation [...] TRACE /LPF NONE SEEN - US BIOPHYS [id number] 00:00:00 [facility] : 2000 Sex: F Name: LUIS EDMONDS [facility] : 2000 Age/S: 20 / F [address] [place] [address] Unit #:[id number] Loc: [place] [address] Phys: Effie Solitario MD Acct: [id number] Dis Date: Status: REG ER PHONE #: [phone] Exam Date: 02/12/20212122 FAX #: [phone] Reason: Decreased movements EXAMS: CPT CODE: [id number] US BIOPHYS PROF 67444 PROCEDURE INFORMATION: Exam: US Biophysical Profile With [...] deepest vertical pocket is 0.5 cm. This iswithin normal limits. BIOPHYSICAL PROFILE: Breathin/2 Gross body movements: 2/2 tone: 2/2 Qualitative amniotic fluid: 2/2 Reactive heart rate: 2/2 Biophysical Profile Score: 10/10 MATERNAL ANATOMY: Cervix: The uterine cervix is closed and the cervical length is 3.5 cm. Urinary bladder: The maternal urinary bladder appears normal as visualized. IMPRESSION: 1. There is asingle live intrauterine gestation in vertex presentation. 2. Normal biophysical profile score of 8/8. 3. The amniotic fluid index is 10.6 cm. The deepest vertical pocket is 0.5 cm. This is within normal limits. 4. The uterine cervix is closed and the cervical length is 3.5 cm. PAGE 1 Signed Report (CONTINUED) Name: LUIS EDMONDS [facility] : 2000 Age/S: 20 / F [address] [facility] Unit #: [id number] Loc: [place] [address] Phys: Effie Solitario MD Acct: [id number] Dis Date: Status: REG ER PHONE #: [phone] Exam Date: 02/12/20212122 FAX #: [phone] Reason: Decreased movements EXAMS: CPT CODE: [id number] BIOPHYS PROF 01777 <Continued> at 2121 Reported and signed by: Geovanny Hughes D.O. CC: Technologist: Yuki Ray RDMS()(OB) Trnscb Date/Time: 02/12/2021 (2121) [email or web address] Orig Print D/T: S: 02/12/2021 (2148) Probe: PAGE 2 Signed Report URINALYSIS [id number] 03:25:00* Test Item Value Reference Range Interpretation [...] MUCU) TRACE /LPF NONE SEEN - US [id number] 17:34:00 [facility] : 2000 Sex: F Name: LUIS EDMONDS [facility] [place] : 2000 Age/S: 20 / F [address] [place] [address] Blvd Unit #: [id number] Loc: [place] [address] Phys: ChavezIvanaPearl E Acct: [id number] Dis Date: Status: REG ER PHONE #: [phone] Exam Date: 12/25/2020 1726 FAX #: [phone] Reason: h/o low ISMA, unsure if PROM, translabial cervic EXAMS: CPT CODE: [id number] LTD 13618 LIMITED ULTRASOUND INDICATION: with history of low [...] age of 24 weeks 6 days. SL: KEI-H PAGE 1 Signed Report (CONTINUED) Name: LUIS EDMONDS [facility] EDElin Coffman : 2000 Age/S: 20 / F [address] [place] [address] Unit #: [id number] Loc: [place] [address] Phys: Pearl Chavez DO Acct: [id number] Dis Date: Status: REG ER PHONE #: [phone] ExamDate: 12/25/2020 1726 FAX #: [phone] Reason: h/o low ISMA, unsure if PROM, translabial cervic EXAMS: CPT CODE: [id number] LTD 04156 <Continued> at 1734 Reported and signed by: Judah Izquierdo M.D. CC: Pearl Chavez DO Technologist: Merna Figueroa RDMS() Trnscb Date/Time: 12/25/2020 (1733) [email or web address] Orig Print D/T: S: 12/25/2020 (1736) Probe: PAGE 2 Signed ReportAMNISURE (ROM) [id number] 17:14:00* Test Item Value Reference Range Interpretation Comme nts AMNISURE (ROM) TEST (test co de = AMNI) NEGATIVE NEGATIVE URINALYSIS [id number] 17:10:00* Test Item Value Reference Range Interpretation [...] /HPF NONE A DRUGS OF ABUSE SCREEN [id number] 17:07:00* Test Item Value Reference Range Interpretation [...] for non-medical purposes. - US PREG AFTER [id number] 02:47:00 [facility] : 2000 Sex: F Name: LUIS EDMONDS [facility] Madeline Coffman : 2000 Age/S: 19 / F [address] [place] [address] Unit #: [id number] Loc: [place] [address] Phys: Brittnee Ramirez MD Acct: [id number] Dis Date: Status: REG ER PHONE #: [phone] Exam Date: 11/23/2020 0144 FAX #: [phone] Reason: No PNC, bleeding,approximately 20 weeks EXAMS: CPT CODE: [id number] US PREG AFTER 1ST TRI 81232 EXAM: US, US PREG AFTER 1SR TRI: 11/23/2020, 0108 hours HISTORY: No PNC, bleeding, approximately 20 weeks TECHNIQUE: Sonographic evaluation is performed of the pelvis via transabdominal approach using grayscale, color flowand Doppler imaging when appropriate. COMPARISON: None available. FINDINGS: The examination shows asingle fetus in variable presentation. Normal cardiac activity [...] 1 Signed Report (CONTINUED) Name: LUIS EDMONDS [facility] : 2000 Age/S: 19 / F [address] [place] [address] Blvd Unit #: [id number] Loc: [place] [address] Phys: Brittnee Ramirez MD Acct: [id number] Dis Date: Status: REG ER PHONE #: Exam Date: 11/23/2020143 FAX #: [phone] Reason: No PNC, bleeding, approximately 20 weeks EXAMS: CPT CODE: [id number] US PREG AFTER TRI 91668 <Continued> seen. Cervical length is not visualized. [...] PAGE 2 Signed Report- US PREG AFTER [id number] 02:47:00 [facility] : 2000 Sex: F Name: LUIS EDMONDS [facility] [place] : 2000 Age/S: 19 / F [address] [place] [address] Unit #: [id number] Loc: [place] [address] Phys: Brittnee Ramirez MD Acct: [id number] Dis Date: Status: DEP ER PHONE #: [phone] Exam Date: 11/23/2020 0144 FAX #: [phone] Reason: No PNC, bleeding, approximately 20 weeks EXAMS: CPT CODE: [id number] US PREG AFTER 1ST TRI 29471 EXAM: US, US PREG AFTER 1SR TRI: [...] of 19 weeks 6 days and an s onographic DANY of 04/13/2021 plus or minus one [...] 1 Signed Report (CONTINUED) Name: LUIS EDMONDS [facility] : 2000 Age/S: 19 / F [address] [place] [address] Blvd Unit #: [id number] Loc: [place] [address] Phys: Brittnee Ramirez MD Acct: [id number] Dis Date: Status: DEP ER PHONE #: [phone] Exam Date: 11/23/2020143 FAX #: [phone] Reason: No PNC, bleeding, approximately 20 weeks EXAMS: CPT CODE: [id number] US PREG AFTER 1ST TRI 21615 <Continued> seen. Cervical length is not visualized. IMPRESSION: Single live fetus in variable presentation. heart rate is 140 bpm. 2. Sonographic EGA of 19 weeks 6 days and an sonographic DANY of 04/13/2021 +/- one standard deviation. SL:[JSYED-H] at 0247 Reported and signed by: Jeromy Wolfe M.D. CC: Brittnee Ramirez MD Technologist: Maryam Anderson RDMS(GOYO)(AB)Trnscb Date/Time: 11/23/2020 (246) [email or web address] Orig Print D/T: S: 11/23/2020 (0250) Probe: PAGE 2 Signed ReportURINALYSIS [id number] 01:40:00* Test Item Value Reference Range Interpretation [...] /HPF NONE A DRUGS OF ABUSE SCREEN [id number] 01:40:00* Test Item Value Reference Range Interpretation [...] be used for non-medical purposes. CBC W/AUTO [id number] 01:27:00* Test Item Value Reference Range Interpretation [...] c ode = MDIFF) NO BASIC METABOLIC [id number] 02:51:00* Test Item Value Reference Range Interpretation [...] = CA) 9.5 mg/dL 8.0-10.5 N HCG [id number] 02:51:00* Test Item Value Reference Range Interpretation Comme nts HCG SERUM (test code = HCG) 24988.3 0 - 6 NOT PREGNA NT > 6 SUGGESTIVE OF EARLY RISES TWO FOLD EVERY 2 DAYS; SUGGEST RECONFIRMING AFTER 2 DAYS. 150,000-200,[address] TRIMESTER 10,000 - 50,000 2ND & 3RD TRIMESTERResults in emanuel-International Units/mL URINALYSIS [id number] 02:39:00* Test Item Value Reference Range Interpretation [...] MUCU) TRACE /LPF NONE SEEN CBC W/AUTO [id number] 02:21:00* Test Item Value Reference Range Interpretation [...] = MDIFF) NO - US PREG 1ST [id number] 02:19:[address] [facility] MADELINE COFFMANName: LUIS EDMONDS : 2000 Sex: F Name: LUIS EDMONDS [facility] Madeline Coffman : 2000 Age/S: 19 / F [address] [place] [address] Blvd Unit #: [id number] Loc: [place] [address] Phys: Nirav Nolan MD Acct: [id number] Dis Date: Status: REG ER PHONE #: [phone] Exam Date: 10/05/2020209 FAX #: [phone] Reason: VB EXAMS: CPT CODE: [id number] US PREG 1ST TRIMTR 15046 STUDY: - DUP AB/PEL/SC/LTD, - US PREG 1ST TRIMTR 10/05/2020 1:17 AM Ordering Physician: Nirav Nolan MD Patient Name: LUIS EDMONDS MR: [id number] : 2000; Age: 19 years y/o Female [...] resistance arterial and venous blood flow is demonstrated.URINARY BLADDER: Normal for degree of distention present containing anechoic urine. FLUID: None. OTHER FINDINGS: None. IMPRESSION: Normal single live intrauterine at 13 weeks 0 days. PAGE 1Signed Report (CONTINUED) Name: LUIS EDMONDS [facility] : 2000 Age/S: 19 / F [address] [place] [address] Blvd Unit #: [id number] Loc: [place] [address] Phys: Nirav Nolan MD Acct: [id number] Dis Date: Status: REG ER PHONE #: [phone] Exam Date: 10/05/2020209 FAX #: [phone] Reason: VB EXAMS: CPT CODE: [id number] US PREG 1ST TRIMTR 38688 <Continued> SL: TPAINTER-H at 0219 Reported and signed by: Abdias Avila M.D. CC: Elina Rome MD; Nirav Nolan MD Technologist: Maryam Anderson RDMS()(AB) Trnscb Date/Time: 10/05/2020 (218) [email or web address] Orig Print D/T: S: 10/05/2020 (221) Probe: PAGE 2 Signed Report- DUP AB/PEL/SC/[id number] 02:19:00 [facility] 2000 Sex: F Name: LUIS EDMONDS [facility] : 2000 Age/S: 19 / F [address] [place] [address] Unit #: [id number] Loc: [place] [address] Phys: Nirav Nolan MD Acct: [id number] Dis Date: Status: REG ER PHONE #: [phone] Exam Date: 10/05/2020209 FAX #: [phone] Reason: see US PREG 1st TRIMTR EXAMS: CPT CODE: [id number] DUP AB/PEL/SC/LTD 11341 STUDY: - DUP AB/PEL/SC/LTD, - US PREG 1ST TRIMTR 10/05/2020 1:17 AM Ordering Physician: Nirav Nolan MD Patient Name: LUIS EDMONDS MR: [id number] : 2000; Age: 19 years y/o Female [...] cm or 13 weeks 0 days with heartrate of 154 bpm. RIGHT OVARY AND ADNEXA: General: Normal size right ovary measuring 3.4 x 1.2 x 2.2 cm containing subcentimeter follicles. Doppler: Normal low resistance arterial and venous blood flow is demonstrated. LEFT OVARY AND ADNEXA: General: Normal size left ovary measuring 2.6 x 1.3 x 1.8cm containing subcentimeter follicles. Doppler: Normal low resistance arterial and venous blood flow is demonstrated. URINARY BLADDER: Normal for degree of distention present containing anechoic urine. FLUID: None. OTHER FINDINGS: None. IMPRESSION: Normal single live intrauterine at 13 weeks 0 days. PAGE 1 Signed Report (CONTINUED) Name: LUIS EDMONDS [facility] : 2000Age/S: [address] [place] [address] Blvd Unit #: [id number] Loc: [place] [address] Phys: Nirav Nolan MD Acct: [id number] Dis Date: Status: REG ER PHONE #: [phone] Exam Date: 10/05/20200FAX #: [phone] Reason: see US PREG 1st TRIMTR EXAMS: CPT CODE: [id number] DUP AB/PEL/SC/LTD 17385 <Continued> SL: TPAINTER-H at 021 Reported and signed by: Abdias Avila M.D. CC: Elina Rome MD; Nirav Nolan MD Technologist: Maryam Anderson RDMS(GOYO)(AB) Trnscb Date/Time: 10/05/2020 (218) [email or web address] Orig Print D/T: S: 10/05/2020 (221) Probe: PAGE 2 Signed Report- DUP AB/PEL/SC/[id number] 22:07:[address] [facility] MADELINE COFFMANName: LUIS EDMONDS : 2000 Sex: F Name: LUIS EDMONDS [facility] [place] : 2000 Age/S: 19 / F [address] [place] [address] Unit #: [id number] Loc: [place] [address] Phys: Cathy Bruce Acct: [id number] Dis Date: Status: REG ER PHONE #: [phone] Exam Date: 08/22/20202199 FAX #: [phone] Reason: see US PREG 1st TRIMTR EXAMS: CPT CODE: [id number] DUP AB/PEL/SC/LTD 08351 PROCEDURE: FIRST TRIMESTER ULTRASOUND INDICATION: 6 weeks [...] 6 weeks 4 days. SL: BALJINDER at 2204 Reported and signed by: Judah Izquierdo M.D. CC: Elina Rome MD; Cathy MELO Technologist: Maryam Anderson RDMS(BR)(AB) Trnscb Date/Time: 08/22/2020 (2206) [email or web address] Orig Print D/T: S: 08/22/2020 (2209) Probe: PAGE 1 Signed Report- US PREG 1ST [id number] 22:07:00[facility] 2000 Sex: F Name: LUIS EDMONDS [facility] : 2000 Age/S: 19 / F [address] [place] [address] Unit #: [id number] Loc: [place] [address] Phys: Cathy Bruce Acct: [id number] Dis Date: Status: REG ER PHONE #: [phone] Exam Date: 08/22/20202199 FAX #: [phone] Reason: 6w , cramping EXAMS: CPT CODE: [id number] US PREG 1ST TRIMTR 47019 PROCEDURE: FIRST TRIMESTER ULTRASOUND INDICATION: 6 weeks [...] 6 weeks 4 days. SL: SG-H at 220 Reported and signed by: Judah Izquierdo M.D. CC: Elina Rome MD; Cathy MELO Technologist: Maryam Anderson RDMS(BR)(AB) Trnscb Date/Time: 08/22/2020 (2206) [email or web address] Orig Print D/T: S: 08/22/2020 (2209) Probe: PAGE 1 Signed ReportURINALYSIS [id number] 21:50:00* Test Item Value Reference Range Interpretation [...] MUCU) TRACE /LPF NONE SEEN BASIC METABOLIC [id number] 21:48:00* Test Item Value Reference Range Interpretation [...] patient ? YHOW MANY WEEKS? 6 WEEKSHCG [id number] 21:48:00* Test Item Value Reference Range Interpretation Comme nts HCG SERUM (test code = HCG) 01511.6 0 - 6 NOT PREGNA NT > 6 SUGGESTIVE OF EARLY RISES TWO FOLD EVERY 2 DAYS; SUGGEST RECONFIRMING AFTER 2 DAYS. 150,000-200,[address] TRIMESTER 10,000 - 50,000 2ND & 3RD TRIMESTERResults in emanuel-International Units/mL Is patient ? YHOW MANY WEEKS? 6 WEEKSUR HCG [id number] 21:47:00* Test Item Value Reference Range Interpretation Comme nts UR HCG QUAL (test code = HCGQLU) POSITIVE NEGATIVE CBC W/AUTO [id number] 21:33:00* Test Item Value Reference Range Interpretation [...] c ode = MDIFF) NO CBC W/AUTO [id number] 21:31:00* Test Item Value Reference Range Interpretation [...] c ode = MDIFF) Novel Coronavirus 2019 [id number] 14:50:00* Test Item Value Reference Range Interpretation Comme nts Novel Coronavirus 2019 nCoV (test code = COVID19) Negative Negative Performed by: [facility] [address] [place] [address], [address] [place] [address] CLIA#: [id number] Does patient have the clinical criteria consistent with COVID-19? YIs the patient going to be discharged home? Y- CT NECK W/[id number] 02:35:00 Name: LUIS EDMONDS [facility] : 2000 Age/S: 19 / F [address] [place] [address] Unit #:[id number] Loc: [place] [address] Phys: Amilcar Pablo MANAGER NURSING HOME Acct: [id number] Dis Date: Status: REG ER PHONE #: [phone] Exam Date: 02/16/2020 0134 FAX #: [phone] Reason: R lymphadenopathy, throat pain, fever EXAMS: CPT CODE: [id number] CT NECK W/CONTRAST 85255 EXAM: CT, CT NECK W/CONTRAST: 02/16/2020, 0132 hours Clinical Indication: Right lymphadenopathy. Fever. Throat pain. Comparison: CT cervical spine 06/09/2018. Technique: CT of the neck is performed with a multidetector CT. [place] sagittal reconstructions were obtained. CT imaging was [...] 1 Signed Report (CONTINUED) Name: LUIS EDMONDS [facility] [place] : 2000 Age/S: 19 / F [address] [place] [address] Unit #: [id number] Loc:[place] [address] Phys: Amilcar Pablo MANAGER NURSING HOME Acct: [id number] Dis Date: Status: REG ER PHONE #: [phone] Exam Date: 02/16/2020 5191 FAX #: [phone] Reason: R lymphadenopathy, throat pain, feverEXAMS: CPT CODE: [id number] CT NECK W/CONTRAST 32107 <Continued> unremarkable. OSSEOUS STRUCTURES: There are no [...] Elina Rome MD; Amilcar Pablo NP Technologist:Josué Granado RT(R)(CT); Natasha CTDI: DLP: Trnscb Date/Time: 02/16/2020 (0235) [email or web address] Orig Print D/T: S: 02/16/2020 (0239) PAGE 2 Signed ReportCOMPREHENSIVE METABOLIC [id number] 00:12:00* Test Item Value Reference Range Interpretation [...] = ALKP) 70 IUnit/L 60-350 N MONO [id number] 00:09:00* Test Item Value Reference Range Interpretation Comme nts MONO SCREEN (test code = MONO) NEGATIVE NEGATIVE URINALYSIS [id number] 00:02:00* Test Item Value Reference Range Interpretation [...] MUCU) 1+ /LPF NONE SEEN COMPREHENSIVE METABOLIC [id number] 00:02:00* Test Item Value Reference Range Interpretation [...] code = ALKP) IUnit/L 60-350 CBC W/AUTO [id number] 23:59:00* Test Item Value Reference Range Interpretation [...] (test code = MDIFF) NO UR HCG [id number] 23:56:00* Test Item Value Reference Range Interpretation Comme nts UR HCG QUAL (test code = HCGQLU) NEGATIVE NEGATIVE Notes Date/Time Note Provider Source 2022-11-16 15:41:00 [id number] [address] PATIENT NAME: LUIS EDMONDS ADMIT DATE: 10/30/22 ACCOUNT NO: [id number] ROOM NO: G.431 AGE: 21 REPORT TYPE: 360 - QUERY RESPONSE DOCUMENT SEX: F ADMITTING PHYSICIAN:Luis Burciaga MD ATTENDING PHYSICIAN:Luis Burciaga MD Provider Query QUERY TEXT: Clarification Pathology 360MD Query related questions should be directed to: [facility] Coding Query Hotline Based on your clinical [...] Dismiss - Clinically unable to determine / Unknown -- Assign to another provider QUERY RESPONSE: Yes, I am in agreement with the pathology finding(s) noted above. Query created by: FERDINAND LAROSE on 11/14/2022 7:54 AM at 1541 PATIENT NAME: LUIS EDMONDS [facility] 2022-11-02 15:02:00 [facility] ([facility] OB Disch REPORT#:[id number] REPORT STATUS: Signed DATE:11/02/22 TIME: 1502 PATIENT: LUIS EDMONDS UNIT #: [id number] ROOM/BED: [place] [address] : 02 AGE: 21 SEX: F ATTEND: Luis Burciaga MD ADM AUTHOR: Luis Burciaga MD * ALL edits or amendments must be made on the electronic/computer document * Subjective Subjective Admission EGA: Weeks: [...] Additional discharge routines: None at 1504 RPT #:[id number] END OF REPORT [facility] 2022-11-02 14:57:00 [facility] ([facility]) OB Postpart Progr Note REPORT#:[id number] REPORT STATUS: Signed DATE:11/02/22 TIME: 1456 PATIENT: LUIS EDMONDS UNIT #: [id number] ROOM/BED: [place] [address] : 02 AGE: 21 SEX: F ATTEND: Luis Burciaga MD ADM AUTHOR: Luis Burciaga MD * ALL edits or amendments must be made on the electronic/computer document * Subjective Subjective Admission EGA: Weeks: [...] Exam Abdomen: soft, no abnormal tenderness, no guarding Uterus: involution appropriate, non-tender Fundus: firm, below the umbilicus Lochia: normal Lower extremities: Edema: none Colleen's sign: negative Calf tenderness: negative Diagnosis, Assessment Plan Diagnosis, Assessment Plan Assessment: nml progress Plan: routine care, discharge today at 1500 RPT #:[id number] END OF REPORT [facility] 2022-11-01 15:13:00 [facility] ([facility]) OB Postpart Progr Note REPORT#:[id number] REPORT STATUS: Signed DATE:11/01/22 TIME: 1513 PATIENT: LUIS EDMONDS UNIT #: [id number] ROOM/BED: [place] [address] : 02 AGE: 21 SEX: F ATTEND: Luis Burciaga MD ADM AUTHOR: Luis Burciaga MD * ALL edits or amendments must be made on the electronic/computer document * Subjective Subjective Admission EGA: Weeks: [...] Exam Abdomen: soft, no abnormal tenderness, no guarding Uterus: involution appropriate, non-tender Fundus: firm, below [...] % (Auto) (14.0 - 32.0 %) 25.7 [place] % (Auto) (4.8 - 9.0 %) 9.7 H Eos % (Auto) (0.3 - 3.7 %) 0.8 Baso % (Auto) (0.0 - 2.0 %) 0.5 Neut # (Auto) (2.0 - 7.6 x10 3/uL) 7.76 H Lymph # (Auto) (1.0 - 3.8 x10 3/uL) 3.17 [place] # (Auto) (0.1 - 0.8 x10 3/uL) [...] 3/uL) 0.00 Diagnosis, Assessment Plan Diagnosis, Assessment Plan Assessment: nml progress Plan: routine care at 1514 RPT #:[id number] END OF REPORT [facility] 2022-10-31 15:14:00 [facility] ([facility]) DT History Physical REPORT#:[id number] REPORT STATUS: Signed DATE:10/31/22 TIME: 1513 PATIENT: LUIS EDMONDS UNIT #: [id number] ROOM/BED: [place] [address] : 02 AGE: 21 SEX: F ATTEND: Luis Burciaga MD ADM AUTHOR: Luis Burciaga MD * ALL edits or amendments must be made on the electronic/computer document * History Physical History Physical Patient seen and examined and care records reviewed with the following updates Laboratory Tests 10/30/22 1830: [Embedded Image Not Available] Laboratory Tests Test [...] (14.0 - 32.0 %) 26.3 10/30 1830 [place] % (Auto) (4.8 - 9.0 %) 9.6 H 10/30 1830 Eos % (Auto) (0.3 - 3.7 %) 0.6 04/14 1830 Baso % (Auto) (0.0 - 2.0 %) 0.3 10/30 1829 Neut # (Auto) (2.0 - 7.6 x10 3/uL) 6.27 10/30 1829 Lymph # (Auto) (1.0 - 3.8 x10 3/uL) 2.65 10/30 1829 [place] # (Auto) (0.1 - 0.8 x10 3/uL) [...] Antibody Screen (Nonreactive) Nonreactive 10/30 1829 Home Medications: Medication Dose/Rte/Freq Days Qty Entered Last Max Daily Dose Reviewed PNV WITH 1 CAP PO DAILY 09/07/22 CA/IRON/FA/DHA 2149 (PRENATE ESSENTIAL) Strength: 28 MG IRON-1 MG-300 MG CAP DME - CRUTCHES 03/06/22 (CRUTCH SET) 1617 Strength: 1 ITEM EACH NITROFURANTOIN/NITROFURAN 100 MG PO BID 7 14 09/27/22 MAC 1637 (MACROBID) Strength: 100 MG CAP NIFEdipine (PROCARDIA) 10 MG PO TID 30 90 09/27/22 Strength: 10 MG CAP 1638 Current Hospital Medications: Anti-Infective Agents Sig/Victoriano Start time Last Medication Dose Route Stop Time Status Admin Penicillin G 5 MILLION.UN ASDIR 10/30 1829 CKD 10/31 Potassium IV 11/06 1829 1143 [...] Ephedrine Sulfate 10 MG ONCE PRN 10/31 344 AC (ePHEDrine sulfate) IV 12/01 343 Ephedrine Sulfate 25 MG ONCE PRN 10/31 344 AC (ePHEDrine sulfate) IM 11/30 034 Ephedrine Sulfate 10 MG ASDIR PRN 10/30 1830 AC (ePHEDrine sulfate) IV 11/29 1829 Ephedrine Sulfate 25 MG ASDIR PRN 10/30 [...] Naloxone HCl 0.1 MG ASDIR PRN 10/31 344 CKD (NARCAN) IV 11/30 034 Ropivacaine/Fentanyl/ 0 ASDIR 10/31 0345 AC 10/31 NS EPIDURAL 11/30 034 1025 (fentaNYL/ROP 200 MCG/0.125% 100ML CASSETTE) Butorphanol Tartrate 1 MG Q3H PRN PRN 10/30 1830 AC 10/30 (STADOL) IV 11/29 1829 2121 Ropivacaine/Fentanyl/ 0 ASDIR PRN 10/30 1830 AC NS EPIDURAL 11/29 182 (fentaNYL/ROP 200 MCG/0.125% 100ML CASSETTE) Electrolytic, Caloric, And Gregor Sig/Victoriano Start time Last Medication Dose Route Stop Time Status Admin Citric Acid/Sodium 30 ML ONCE PRN 10/30 1830 AC Citrate PO 11/29 182 (BICITRA ADULT DOSE) Lactated Ringer's 1,000 ML BOLUS PRN 10/30 1830 AC (LACTATED RINGERS) IV 11/29 182 Lactated Ringer's 1,000 ML .Q8H 10/30 1830 [...] 1829 Misoprostol 800 MCG ONCE PRN 10/30 183 [...] 10/30 1830 AC (BUPIVACAINE HCL) EPIDURAL 11/29 1829 Oxytocics Sig/Victoriano Start time Last Medication Dose [...] 1227 72 100 10/31 1222 70 99 04/15 1219 77.0 04/15 1219 72 114/56 04/15 1217 83 99 04/15 1212 69 97 04/15 1207 72 100 04/15 1203 36.8 04/15 1202 82 97 04/15 1157 68 99 04/15 1152 62 99 04/15 1148 72.0 04/15 1148 73 97/54 04/15 1147 70 98 04/15 1142 74 99 04/15 1137 75 98 04/15 1132 68 98 04/15 1129 72.0 04/15 1129 65 99/53 0415 1127 68 97 04/15 1122 62 98 04/15 1118 65.0 /15 1118 68 89/47 04/ 1117 71 97 04/15 1112 68 98 0415 1107 70 98 0415 1102 66 98 0415 1057 79 100 04 1052 79 100 04/ 1051 16 04 1048 79.0 04 1048 68 111/56 04 1047 71 100 04/15 1046 16 04 1042 82.0 04/15 1042 91 115/59 100 04/15 1041 16 04 1037 82.0 04/15 1037 87 112/57 100 04/ 1036 16 04/15 1032 81.0 04/15 1032 92 120/56 100 04/15 1031 17 0415 1028 78.0 / 1028 82 119/61 04 1027 84 100 04/15 1022 74 100 04/15 1021 17 04/15 1021 81.0 04/15 1021 68 117/59 0415 1017 76 100 04/15 1012 75 100 [...] 0020 90 100 04/15 0015 91 100 04/15 0010 101 99 04/15 0005 93 100 04/15 0000 89 100 04/14 2357 84.0 10/30 2357 93 117/66 10/30 2356 36.9 10/30 2355 88 100 10/30 [...] 1725 139 117/55 98 at 1514 RPT #:[id number] END OF REPORT [facility] 2022-10-31 15:12:00 [facility] ([facility]) OB Delivery Note REPORT#:[id number] REPORT STATUS: Signed DATE:10/31/22 TIME: 1512 PATIENT: LUIS EDMONDS UNIT #: [id number] ROOM/BED: [place] [address] : 02 AGE: 21 SEX: F ATTEND: Luis Burciaga MD ADM AUTHOR: Luis Burciaga MD * ALL edits or amendments must be made on the electronic/computer document * OB Delivery Nursing Documentation Review Nursing data: The data set between the solid lines has been imported from nursing documentation. Any exceptions have been noted below under Provider comments. _ ROM date: 10/30/22 ROM time: 1710 Membranes rupture method: AROM Amniotic fluid color: Clear Amniotic fluid amount: Steroids prior to arrival: Antibiotic prophylaxis given: Post hemorrhage risk score: Low Risk for Hemorrhage. Delivery date infant A: Delivery time A: Birthweight (gm) A: Weight (lb) infant [...] status: GBS status: unknown Prophylaxis administered: penicillin [place] evaluation at delivery: NRP certified personnel Admission EGA: Weeks: 37 Days: 0 EGA [...] condition: stable in room at 1514 RPT #:[id number] END OF REPORT [facility] 2022-09-27 16:38:00 [facility] ([facility]) OB Disch Undelivered REPORT#:[id number] REPORT STATUS: Signed DATE:09/27/22 TIME: 1638 PATIENT: BI EDMONDS UNIT #: [id number] ROOM/BED: [place] [address] : 02 AGE: 21 SEX: F ATTEND: Luis Burciaga MD ADM AUTHOR: Effie Marquez MD * ALL edits or amendments must be made on the electronic/computer document * Subjective Subjective Admission EGA: Weeks: 32 Days: 1 Current EGA weeks/days: 32 week Free Text Subj Notes Free Text Subj Notes: She refers good movements and denies any [...] Monitor: toco Frequency (description): None Frequency (minutes): INSTRUMENT ASSEMBLY SUPERVISOR: Normal exteral genitalia Cervical/ exam: Dilatation (cm): 1 Effacement (%): 50 station: -3 Presentation: Membrane status: FHR evaluation: FHR category: category I Discharge Undelivered General Problem List/A P: 1. 32 weeks gestation of Free Text A P: IUP 32 1 +FFN Patient was admitted last night due [...] understanding will have her follow-up with her APARTMENT MAINTENANCE SUPERVISOR. Assessment: no evidence labor Impression: reactive NST Plan: discharge home Plan discussed with: patient, nurse Admission diagnosis: false labor Hospital course: She was admitted for observation due to +FFN Discharge to: Home/Self Care Discharge diagnosis: false labor Discharge Instructions Diet: Regular Additional Discharge Routines: PCP Follow-Up Prescriptions: Continue taking these medications: PNV WITH CA/IRON/FA/DHA (PRENATE ESSENTIAL) 28 MG IRON-1 [...] timeframe: In 1-2 weeks at 1953 RPT #:[id number] END OF REPORT [facility] 2022-09-27 10:39:00 [facility] ([facility]) OB Antepartum Prog Note REPORT#:[id number] REPORT STATUS: Signed DATE:09/27/22 TIME: 1039 PATIENT: BI EDMONDS UNIT #: [id number] ROOM/BED: [place] [address] : 02 AGE: 21 SEX: F ATTEND: Luis Burciaga MD ADM AUTHOR: Effie Marquez MD * ALL edits or amendments must be made on the electronic/computer document * Subjective Subjective Admission EGA: Weeks: 32 Days: 1 Free Text Subj Notes Free Text Subj Notes: She refers good movements and denies any gush of vaginal fluids, vaginal bleeding. Review of Systems Additional notes: Constitutional: Denies: chills, fatigue, fever, generalized weakness, lethargy, malaise. Respiratory: Denies: productive cough (sputum), [...] 0319 73.0 09/27 0319 88 99/57 09/26 223 82 93 09/269 79.0 09/26 2228 84 110/58 PATIENT WEIGHT: Weight (lb): Weight (oz): Weight (kg): Free Text Obj Notes Free Text Obj Notes: Gen: AAOx3 Lungs: normal respiratory effort Neuro: Exam: alert, oriented x3 Abdomen: gravid, soft Uterine activity: Monitor: toco Frequency (description): none Frequency (minutes): INSTRUMENT ASSEMBLY SUPERVISOR: Normal exteral genitalia Cervical/ exam: Dilatation (cm): 1 Effacement (%): 50 station: -3 Presentation: Membrane status: FHR evaluation: FHR category: category I Diagnosis, Assessment Plan Diagnosis, Assessment Plan Free text A P: IUP 32 07/25 FFN + Patient found stable, patient evaluated by MFM, he recommends discharge home if no cervical change. Will check her this afternoon. at 1950 RPT #:[id number] END OF REPORT [facility] 2022-09-27 09:19:00 [facility] ([facility]) MFM Consultation Note REPORT#:[id number] REPORT STATUS: Signed DATE:09/27/22 TIME: 918 PATIENT: BI EDMONDS UNIT #: [id number] ROOM/BED: [place] [address] : 02 AGE: 21 SEX: F ATTEND: Luis Burciaga MD ADM AUTHOR: Kahlil Moore MD * ALL edits or amendments must be made on the electronic/computer document * History of Present Illness HPI Requesting clinician: Hospitalist Reason for consult: Thr PTL History Nursing Documentation Review Nursing data: The data set between the solid lines has been imported from nursing documentation. Any exceptions have been noted below under Provider comments. Prior history : 2 [...] globulin this preg: Monitor mode - UA: Olin units: Feeding preference: Delivery data Delivery date infant A: Delivery time infant [...] dz. DM). MOTHER (Cervical CA. Mult sclerosis. Osteoporosis. Arthritis). GRANDMOTHER (MGM +DM). GRANDFATHER (PGF +DM). Allergies: Uncoded Allergies: MARCUS ACID- THROAT SWELLING (Severe, 08/03/22) Review of Systems : Denies: dysuria, flank pain, frequency, hematuria, nocturia, pelvic [...] pH (5.0 - 7.0) 5.0 Ur Specific [place] (1.005 - 1.030) 1.033 H Urine Protein [...] Luis is a 21yo at 32w2d (EDC 11/20/2022) [...] for sharing in the care of your patient! Will cont. to follow with you closely Floor time 50min at 0927 RPT #:[id number] END OF REPORT [facility] 2022-09-27 05:02:00 [facility] ([facility]) OB Admission / H P REPORT#:[id number] REPORT STATUS: Signed DATE:09/27/22 TIME: 0502 PATIENT: BI EDMONDS UNIT #: [id number] ROOM/BED: [place] [address] : 02 AGE: 21 SEX: F ATTEND: Luis Burciaga MD ADM AUTHOR: Zoila Gomez DO * ALL edits or amendments must be made on the electronic/computer document * OB History Chief complaint: uterine contractions, decreased movement HPI: 11 yo EDC 11-20-22 presented to [facility] at 32 1/7wks complained of cramping pain at suprapubic area since last week and decreased FM today. +Lower back pain. Patient was admitted for +Amnisure at 29+wks on 09-07-22. Repeat Amnisure on was negative and pt discharged home on 09-14-22. Pt did not have f/u with MFM since DC home from the hospital. Received 2 doses of steroid on 09-08-22 and 09-09-22. PN care by Dr Burciaga. Due to +FFN today with Cx 1+/50/-3, will admit for 23h observation. Current : Admission EGA (weeks) 32 Admission EGA (days) 1 Past History Past Medical History: Reports: Asthma. Additional Surgical History: tonsilectomy Additional Family History FATHER (Heart dz. DM). MOTHER (Cervical CA. Mult sclerosis. Osteoporosis. Arthritis). GRANDMOTHER (MGM +DM). GRANDFATHER (PGF +DM). Alcohol Use Denies EtOH use Drug Use Denies recreational drugs Smoking status for patients 13 years old or older: Never Smoker Allergies: Uncoded Allergies: MARCUS ACID- [...] pH (5.0 - 7.0) 5.0 Ur Specific [place] (1.005 - 1.030) 1.033 H Urine Protein [...] 09/26/20222113 IMPRESSION: 1. Single living intrauterine in cephalic [...] dilation Plan: 1. Phone consult called to [facility], Dr Judge. No Celestone is needed ( last course of steroid was given 3+ wk ago on 09-08-22 and 09-09-22 ). No MgSO4 is needed at 32 1/7wks with no contractions. 2. Admit for 23h observation. 3. Will recheck cx in AM. If no contraction or cervical change, will DC home. at 0512 RPT #:[id number] END OF REPORT [facility] 2022-09-26 19:34:00 [facility] ([facility]) [facility] Evaluation Note REPORT#:[id number] REPORT STATUS: Signed DATE:09/26/22 TIME: 1933 PATIENT: BI EDMONDS UNIT #: [id number] ROOM/BED: [place] [address] : 02 AGE: 21 SEX: F ATTEND: Luis Burciaga MD ADM AUTHOR: Zoila Gomez DO * ALL edits or amendments must be made on the electronic/computer document * See Addendum [facility] History Chief complaint: uterine contractions, decreased movement HPI: 21 yo EDC 11-20-22 presented to [facility] at 32 1/7wks complained of cramping pain at suprapubic area since last week and decreased FM today. +Lower back pain. Patient was admitted for +Amnisure at 29+wks on 09-07-22. Repeat Amnisure on was negative and pt discharged home on 09-14-22. Pt did not have f/u with MFM since DC home from the hospital. Received 2 doses of steroid on 09-08-22 and 09-09-22. PN care by Dr Burciaga Past medical history: denies PMH Past surgical history: tonsils/adenoids Social history: no alcohol use, no tobacco use, no drug use Family history FATHER (Heart dz. DM). MOTHER (Cervical CA. Mult sclerosis. Osteoporosis. Arthritis). GRANDMOTHER (MGM +DM). GRANDFATHER (PGF +DM). [...] Mean 82.0 09/26 1857 B/P 112/66 09/26 1857 Vital Signs Date Temp Pulse Resp B/P [...] 4. UDS. 5. BPP 6. OB US at 0452 Addendum 1: 09/27/22 0452 by Zoila Gomez DO At 2152 FHT 135 cat 1 strip with mod variability, accelerations 15x15. Cxn none CX unchanged 1+/50/-3. FFN was positive. Amnisure negative. Wet prep negative. UDS negative. UA +2 protein. 10-20 WBC. TX with po Macrobid 100mg BID. OB US 31 3/7wks. CWD. Cephalic. Ant placenta, grade 2. ISMA 11.4cm. EFW 1628g (3lb9). BPP 8/8. Due to +FFN, will admit for 23hr obs. Phone consult called to [facility], Dr uJdge. No Celestone is needed ( last course of steroid was given 3+ wk ago on 09-08-22 and 09-09-22 ). No MgSO4 is needed at 32 1/7wks with no contractions. POC dw patient, nurse at 0502 RPT #:[id number] END OF REPORT [facility] 2022-09-26 19:30:00 [facility] ([facility]) OB Medical Screening Exam REPORT#:[id number] REPORT STATUS: Signed DATE:09/26/22 TIME: 1929 PATIENT: BI EDMONDS UNIT #: [id number] ROOM/BED: 204- : 02 AGE: 21 SEX: F ATTEND: Luis Burciaga MD ADM DT: AUTHOR: Zoila Gomez DO * ALL edits or amendments must be made on the electronic/computer document * Medical Screening Exam Provider Attestation Comments: Patient was seen at 1920 for contraction, back pain, and decreased FM at 32 1/ 7wks at 1931 RPT #:[id number] END OF REPORT [facility] 2022-09-14 08:43:00 [facility] ([facility]) OB Disch Undelivered REPORT#:[id number] REPORT STATUS: Signed DATE:09/14/22 TIME: 842 PATIENT: LUIS EDMONDS UNIT #: [id number] ROOM/BED: 3481 : 02 AGE: 21 SEX: F ATTEND: Luis Burciaga MD ADM AUTHOR: Luis Burciaga MD * ALL edits or amendments must be made on the electronic/computer document * Objective Physical Exam FHR evaluation: Baby A FHR category: category 1 Uterine activity: Monitor: toco Intensity: mild HEENT: normocephalic w/o injury Lungs: unlabored breathing Abdomen: gravid, soft, no abnormal tenderness, no guarding, no rebound tenderness Lower extremities: Edema: none Colleen's sign: negative Calf tenderness: negative Discharge Undelivered [facility] course: Patient admitted with a diagnosis of PPROM then ruled out after full evaluation with MFM. She had pain and pressure that resolved and was cleared for discharge by MFM Discharge to: Home/Self Care Discharge condition: stable Discharge diagnosis: pre-term labor Discharge management: less than 30 mins Discharge Instructions Instructions: routine instr sheet given Diet: Resume Home Diet/Feeds Additional Discharge Routines: None at 0845 RPT #:[id number] END OF REPORT [facility] 2022-09-14 08:41:00 [facility] ([facility]) OB Antepartum Prog Note REPORT#:[id number] REPORT STATUS: Signed DATE:09/14/22 TIME: 0841 PATIENT: LUIS EDMONDS UNIT #: [id number] ROOM/BED: [place] [address] : 02 AGE: 21 SEX: F ATTEND: Luis Burciaga MD ADM AUTHOR: Luis Burciaga MD * ALL edits or amendments must be made on the electronic/computer document * Subjective Subjective Current EGA: Current EGA(wks): 30 Current EGA(days): 2 Patient reports: Patient reports: Yes: normal movement. No: complaints, abdominal pain, vaginal bleeding , leaking fluid, contractions. [...] 109-123/57-61 78.0-86.0 96-100 PATIENT WEIGHT: Weight (lb): 172 Weight (oz): 6.42 Weight (kg): 78.200 Membranes: PPROM ROM date: 09/07/22 Amniotic fluid: clear Uterine activity: Monitor: toco Intensity: mild HEENT: normocephalic w/o injury Cardiac: regular rate and rhythm Lungs: unlabored breathing Abdomen: gravid, soft, no abnormal tenderness, no guarding, no rebound tenderness Lower extremities: Edema: none Colleen's sign: negative Calf tenderness: negative Baby A: Baby A FHR category: category 1 Diagnosis, Assessment Plan Diagnosis, Assessment Plan Assessment: threatened labor Plan: discharge home at 0843 RPT #:[id number] END OF REPORT [facility] 2022-09-13 17:53:00 [facility] ([facility]) OB Antepartum Prog Note REPORT#:[id number] REPORT STATUS: Signed DATE:09/13/22 TIME: 1753 PATIENT: LUIS EDMONDS UNIT #: [id number] ROOM/BED: [place] [address] : 02 AGE: 21 SEX: F ATTEND: Luis Burciaga MD ADM AUTHOR: Luis Burciaga MD * ALL edits or amendments must be made on the electronic/computer document * Subjective Subjective Current EGA: Current [...] 100-123/53-72 71.0-87.0 96-98 PATIENT WEIGHT: Weight (lb): 172 Weight (oz): 6.42 Weight (kg): 78.200 Membranes: PPROM ROM date: 09/07/22 Amniotic fluid: clear Uterine activity: Monitor: toco Intensity: mild HEENT: normocephalic w/o injury Cardiac: regular rate and rhythm Lungs: unlabored breathing Abdomen: gravid, soft, no abnormal tenderness, no guarding, no rebound tenderness Lower extremities: Edema: none Colleen's sign: negative Calf tenderness: negative Baby A: Baby A FHR category: category 1 Diagnosis, Assessment Plan Diagnosis, Assessment Plan Assessment: threatened labor, PPROM ruled out by MFM but she reports severe pelvic pain and pressure not relived by pain meds Plan: She is in severe pain and feels pressure. Fetus in breech presentation with dialted servix and memberanes in the cervix. she lives 2 hours away from the hospital. Will continue curent inhouse management and pain control till pain improves or risk of cord prolapse and delivery of extreme preamature infant outside hospital decreases at 1802 RPT #:[id number] END OF REPORT [facility] 2022-09-13 09:03:00 [facility] ([facility]) [facility] Progress Note REPORT#:[id number] REPORT STATUS: Signed DATE:09/13/22 TIME: 902 PATIENT: LUIS EDMONDS UNIT #: [id number] ROOM/BED: [place] [address] : 02 AGE: 21 SEX: F ATTEND: Luis Burciaga MD ADM AUTHOR: Kahlil Moore MD * ALL edits or amendments must be made on the electronic/computer document * Objective General VS/I O: Last [...] path. No ctx noted and had normal WBC/ urine. - Short Interval will cont. to follow - Hx of PIH no evidence of PIH at present will monitor -BREECH lie discussed this finding and implications discussd cord prolapse precautions understands CS delivery indicated if remains nonvertex will follow - Anemia on PO Fe Thank you for sharing in the care of your patient! Will cont. to follow with you closely Floor time 35min at 0911 RPT #:[id number] END OF REPORT [facility] 2022-09-12 08:28:00 [facility] ([facility]) MF Progress Note REPORT#:[id number] REPORT STATUS: Signed DATE:09/12/22 TIME: 827 PATIENT: LUIS EDMONDS UNIT #: [id number] ROOM/BED: [place] [address] : 02 AGE: 21 SEX: F ATTEND: Luis Burciaga MD ADM AUTHOR: Kahlil Moore MD * ALL edits or amendments must be made on the electronic/computer document * Objective General VS/I O: Last [...] given to go beyond 34w if desired s/p mag and steroids If repeat ROM+ neg - d/c maybe considered. Questions again discussed - Short Interval will cont. to follow - Hx of PIH no evidence of PIH at present will monitor - Trv lie discussed this finding and implications discussd cord prolapse precautions understands CS delivery indicated if remains nonvertex will follow - Anemia on PO Fe Thank you for sharing in the care of your patient! Will cont. to follow with you closely Floor time 35min at 0834 RPT #:[id number] END OF REPORT [facility] 2022-09-12 01:41:00 [facility] ([facility]) OB Antepartum Prog Note REPORT#:[id number] REPORT STATUS: Signed DATE:09/12/22 TIME: 0141 PATIENT: LUIS EDMONDS UNIT #: [id number] ROOM/BED: [place] [address] : 02 AGE: 21 SEX: F ATTEND: Luis Burciaga MD ADM AUTHOR: Luis Burciaga MD * ALL edits or amendments must be made on the electronic/computer document * Subjective Subjective Current EGA: Current [...] B/P 116/56 09/11 2340 Temp 36.6 09/11 2340 Pulse 127 09/11 2340 Resp 16 09/11 2340 Vital Signs Date Temp Pulse Resp B/P B/P Mean Pulse Ox FiO2 09/11 36.6-36.9 80-127 16-20 106-122/51-69 74.0-86.0 99 PATIENT WEIGHT: Weight (lb): 172 Weight (oz): 6.42 Weight (kg): 78.200 Membranes: PPROM ROM date: 09/07/22 Amniotic fluid: clear HEENT: normocephalic w/o injury Cardiac: regular rate and rhythm Lungs: unlabored breathing Abdomen: gravid, soft, no abnormal tenderness, no guarding, no rebound tenderness Lower extremities: Edema: none Colleen's sign: negative Calf tenderness: negative Baby A: Baby A FHR category: category 1 Diagnosis, Assessment Plan Diagnosis, Assessment Plan Assessment: PPROM Plan: continue current managmnt at 0142 RPT #:[id number] END OF REPORT [facility] 2022-09-11 22:15:00 [facility] ([facility]) OB Antepartum Prog Note REPORT#:[id number] REPORT STATUS: Signed DATE:09/11/22 TIME: 2214 PATIENT: LUIS EDMONDS UNIT #: [id number] ROOM/BED: [place] [address] : 02 AGE: 21 SEX: F ATTEND: Luis Burciaga MD ADM AUTHOR: Luis Burciaga MD * ALL edits or amendments must be made on the electronic/computer document * Subjective Subjective Current EGA: Current EGA(wks): 30 Current EGA(days): 0 Patient reports: Patient reports: Yes: complaints, abdominal pain, vaginal bleeding, leaking fluid, contractions, normal movement, decreased movement, no movement. Objective Nursing Documentation Review [...] 83.0 09/11 190 Pulse Ox 99 09/11 1908 B/P 115/62 09/11 1908 Temp 36.7 09/11 1908 Pulse 93 09/11 1908 Resp 16 09/11 1908 Vital Signs Date Temp Pulse Resp B/P B/P Mean Pulse Ox FiO2 09/11 36.7-36.9 80-112 16-20 106-122/51-69 74.0-86.0 99 PATIENT WEIGHT: Weight (lb): 172 Weight (oz): 6.42 Weight (kg): 78.200 Membranes: PPROM ROM date: 09/07/22 Amniotic fluid: clear HEENT: normocephalic w/o injury Cardiac: regular rate and rhythm Lungs: unlabored breathing Abdomen: gravid, soft, no abnormal tenderness, no guarding, no rebound tenderness Lower extremities: Edema: none Colleen's sign: negative Calf tenderness: negative Baby A: Baby A FHR category: category 1 Diagnosis, Assessment Plan Diagnosis, Assessment Plan Assessment: PPROM Plan: continue current managmnt at 2218 RPT #:[id number] END OF REPORT [facility] 2022-09-11 07:18:00 [facility] ([facility]) [facility] Progress Note REPORT#:[id number] REPORT STATUS: Signed DATE:09/11/22 TIME: 07 PATIENT: LUIS EDMONDS UNIT #: [id number] ROOM/BED: [place] [address] : 02 AGE: 21 SEX: F ATTEND: Luis Burciaga MD ADM AUTHOR: Kahlil Moore MD * ALL edits or amendments must be made on the electronic/computer document * Review of Systems All systems rev neg: except as marked Objective General VS/I O: Last Documented: Result Date Time B/P Mean 86.0 09/11 0556 B/P 122/69 09/11 0556 Pulse 82 09/11 0556 Pulse Ox 97 09/10 06 Temp 36.8 09/10 0604 Resp 16 09/10 [...] SULFATE 20GM/SWFI 500ML) 500 ML Q10H IV (DC ) Acetaminophen [...] pH (5.0 - 7.0) 6.0 Ur Specific [place] (1.005 - 1.030) 1.019 Urine Protein (NEGATIVE) [...] given to go beyond 34w if desired s/p mag and steroids Questions again discussed - Short Interval will cont. to follow - Hx of PIH no evidence of PIH at present will monitor - Breech lie discussed this finding and implications discussd cord prolapse precautions understands CS delivery indicated if remains nonvertex will follow - Anemia on PO Fe Thank you for sharing in the care of your patient! Will cont. to follow with you closely Floor time 35min at 0724 RPT #:[id number] END OF REPORT [facility] 2022-09-10 13:12:00 [facility] ([facility]) [facility] Progress Note REPORT#:[id number] REPORT STATUS: Signed DATE:09/10/22 TIME: 1312 PATIENT: LUIS EDMONDS UNIT #: [id number] ROOM/BED: [place] [address] : 02 AGE: 21 SEX: F ATTEND: Luis Burciaga MD ADM AUTHOR: Daniel Witt MD * ALL edits or amendments must be made on the electronic/computer document * Objective Objective General appearance: alert Results Findings/Data: [facility] Progress Note Luis was seen and [...] and implications awre of rationale for exp. mgmt. and R/B/A, [...] precautions understands CS delivery indicated if remains nonvertex will follow - Anemia on PO Fe Thank you for sharing in the care of your patient! Will cont. to follow with you closely Floor time 35min at 1325 RPT #:[id number] END OF REPORT [facility] 2022-09-10 08:19:00 [facility] ([facility]) OB Antepartum Prog Note REPORT#:[id number] REPORT STATUS: Signed DATE:09/10/22 TIME: 818 PATIENT: LUIS EDMONDS UNIT #: [id number] ROOM/BED: [place] [address] : 02 AGE: 21 SEX: F ATTEND: Luis Burciaga MD ADM AUTHOR: Luis Burciaga MD * ALL edits or amendments must be made on the electronic/computer document * Subjective Subjective Current EGA: Current EGA(wks): 29 Current EGA(days): 6 Patient reports: Patient reports: Yes: normal movement. No: complaints, abdominal pain, vaginal bleeding , leaking fluid, contractions. [...] 98-112/54-66 73.0-81.0 96-100 PATIENT WEIGHT: Weight (lb): 172 Weight (oz): 6.42 Weight (kg): 78.200 Membranes: PPROM ROM date: 09/07/22 Amniotic fluid: clear HEENT: normocephalic w/o injury Cardiac: regular rate and rhythm Lungs: unlabored breathing Abdomen: gravid, soft, no abnormal tenderness, no guarding, no rebound tenderness Lower extremities: Edema: none Colleen's sign: negative Calf tenderness: negative Baby A: Baby A FHR category: category 1 Diagnosis, Assessment Plan Diagnosis, Assessment Plan Assessment: PPROM Plan: continue current managmnt at 0820 RPT #:[id number] END OF REPORT [facility] 2022-09-09 12:03:00 [facility] ([facility]) OB Admission / H P REPORT#:[id number] REPORT STATUS: Signed DATE:09/09/22 TIME: 1203 PATIENT: LUIS EDMONDS UNIT #: [id number] ROOM/BED: [place] [address] : 02 AGE: 21 SEX: F ATTEND: Luis Burciaga MD ADM AUTHOR: Juany Carrillo MD * ALL edits or amendments must be made on the electronic/computer document * OB History Notes: [facility] ([facility]) [facility] Evaluation Note REPORT#:[id number] REPORT STATUS: Signed DATE:09/07/22 TIME: 2242 PATIENT: LUIS EDMONDS UNIT #: [id number] ROOM/BED: [place] [address] : 02 AGE: 21 SEX: F ATTEND: Luis Burciaga MD ADM AUTHOR: Juany Carrillo MD * ALL edits or amendments must be made on the electronic/computer document * History and Physical Chief complaint: suspected ruptured memb HPI: 21 y/o female at 29-3/7 weeks who presents after several gushes of clear fluid from the vagina. Patient is certain that she did not leak urine. Patient denies any vaginal bleeding or contractions. She reports good movement. PNC with Dr. Burciaga which has been uncomplicated to date history: : 2 Term: 1 [...] Result Date Time Pulse Ox 99 09/07 214 Pulse 86 09/07 2140 B/P Mean 84.0 [...] speech Abdomen: gravid, soft, no abnormal tenderness, no guarding Musculoskeletal: painless range of motion Genitourinary: no flank pain Uterine activity: Monitor: toco Frequency (description): none Pelvic exam: Pelvis clinically adequate: yes Vulvar lesions: none Vagina: normal Sterile speculum exam: visually closed, physiological discharge, no pooling, no bleeding Cervical/ exam: Dilatation (cm): 0 - closed Effacement (%): 0 station: - 3 FHR evaluation: Baseline: 150 bpm Variability: minimal < or = 5 bpm Accelerations: absent Decelerations: few mild variables of prematurity FHR category: tracing overall reassuring for EGA Membranes: Membranes: status undetermined Lower extremities: Edema: none Colleen's sign: negative Calf tenderness: negative Results Findings/Data: Laboratory Tests: 09/07 Other Body Source Membrane Rupture (NEGATIVE) POSITIVE H Urines Urine Color (YEL/STRAW) STRAW Urine Appearance (CLEAR) CLEAR Urine pH (5.0 - 7.0) 7.0 Ur Specific [place] (1.005 - 1.030) 1.006 Urine Protein (NEGATIVE) [...] (PPROM) delivered, current hospitalization Free Text A P: 21 y/o female at 29-3/7 weeks who presents with PROM; ROM plus is positive. There is no evidence of active labor. tracing is reassuring. Patient is managed by Dr. Burciaga and the OB Hospitalist Service is covering his patients at this time. Plan: admit to inpatient, transfer to antepartum; PPROM protocol; Continuous EFM; Consult MFM Plan discussed with: patient, parent Time spent: Time spent on patient care (minutes): 35 >50% spent on counseling/coordination of care: yes at 0549 RPT #:[id number] END OF REPORT Past History Allergies: Uncoded Allergies: MARCUS ACID- THROAT SWELLING (Severe, 08/03/22) at 1207 RPT #:[id number] END OF REPORT [facility] 2022-09-09 09:03:00 [facility] ([facility]) OB Antepartum Prog Note REPORT#:[id number] REPORT STATUS: Signed DATE:09/09/22 TIME: 902 PATIENT: LUIS EDMONDS UNIT #: [id number] ROOM/BED: [place] [address] : 02 AGE: 21 SEX: F ATTEND: Luis Burciaga MD ADM AUTHOR: Luis Burciaga MD * ALL edits or amendments must be made on the electronic/computer document * Subjective Subjective Patient reports: Patient reports: No: complaints, abdominal pain, vaginal bleeding, leaking fluid, contractions , normal movement, decreased movement, no movement, headache. Comments: Late entry note. Patient was seen on 09/08/22 a 4:30 pm Objective Nursing Documentation Review Nursing data: [...] breathing Abdomen: gravid, soft, no abnormal tenderness, no guarding, no rebound tenderness Lower extremities: Edema: none Colleen's sign: negative Calf tenderness: negative Baby A: Baby A FHR category: category 1 Findings/data: Microbiology: Date/Time Procedure - Status Source Growth 09/08 1740 Group B Streptococcus Screen ([facility]) - RECD VAGINAL Diagnosis, Assessment Plan Diagnosis, Assessment Plan Assessment: PPROM Plan: continue current managmnt at 0906 RPT #:[id number] END OF REPORT [facility] 2022-09-09 08:58:00 [facility] ([facility]) OB Antepartum Prog Note REPORT#:[id number] REPORT STATUS: Signed DATE:09/09/22 TIME: 0858 PATIENT: LUIS EDMONDS UNIT #: [id number] ROOM/BED: [address]: 02 AGE: 21 SEX: F ATTEND: Luis Burciaga MD ADM AUTHOR: Luis Burciaga MD * ALL edits or amendments must be made on the electronic/computer document * Subjective Subjective Patient reports: Patient [...] breathing Abdomen: gravid, soft, no abnormal tenderness, no guarding, no rebound tenderness Lower extremities: Edema: none Colleen's sign: negative Calf tenderness: negative Findings/data: Microbiology: Date/Time Procedure - Status Source Growth 09/08 1739 Group B Streptococcus Screen ([facility]) - RECD VAGINAL Diagnosis, Assessment Plan Diagnosis, Assessment Plan Assessment: PPROM Plan: continue current managmnt at 0859 RPT #:[id number] END OF REPORT [facility] 2022-09-09 07:45:00 [facility] ([facility]) MFM Progress Note REPORT#:[id number] REPORT STATUS: Signed DATE:09/09/22 TIME: 0745 PATIENT: LUIS EDMONDS UNIT #: [id number] ROOM/BED: [place] [address] : 02 AGE: 21 SEX: F ATTEND: Luis Burciaga MD ADM AUTHOR: Daniel Witt MD * ALL edits or amendments must be made on the electronic/computer document * Objective Objective General appearance: alert [...] and implications awre of rationale for exp. mgmt. and R/B/A, [...] for sharing in the care of your patient! Will cont. to follow with you closely Floor time 35min at 0748 RPT #:[id number] END OF REPORT [facility] 2022-09-08 17:21:00 [facility] ([facility]) [facility] Consultation Note REPORT#:[id number] REPORT STATUS: Signed DATE:09/08/22 TIME: 172 PATIENT: LUIS EDMONDS UNIT #: [id number] ROOM/BED: [place] [address] : 02 AGE: 21 SEX: F ATTEND: Luis Burciaga MD ADM AUTHOR: Daniel Witt MD * ALL edits or amendments must be made on the electronic/computer document * History Past History Past family [...] % (Auto) (14.0 - 32.0 %) 31.0 [place] % (Auto) (4.8 - 9.0 %) 8.1 Eos % (Auto) (0.3 - 3.7 %) 0.8 Baso % (Auto) (0.0 - 2.0 %) 0.3 Neut # (Auto) (2.0 - 7.6 x10 3/uL) 6.16 Lymph # (Auto) (1.0 - 3.8 x10 3/uL) 3.22 [place] # (Auto) (0.1 - 0.8 x10 3/uL) [...] 0.1 x10 3/uL) 0.00 Laboratory Tests 09/07 2148 Other Body Source Membrane Rupture (NEGATIVE) POSITIVE H Laboratory Tests 09/07 2340 Serology RPR (NONREACTIVE) NONREACTIVE Hep Bs Antigen (NonReactive INDEX) NON REACTIVE HIV 1 2 Antibody Screen (Nonreactive) Nonreactive Laboratory Tests 09/07 2125 Urines Urine Color (YEL/STRAW) STRAW Urine Appearance (CLEAR) CLEAR Urine pH (5.0 - 7.0) 7.0 Ur Specific [place] (1.005 - 1.030) 1.006 Urine Protein (NEGATIVE) [...] at 29w4d (EDC 11/20/2022) admitted for PPROM yesterday She is feeling well [...] reviewed Sono today: vtx, ant. placenta, EFW 7hew7ly (1574g, 68%ile), nl range ISMA 15.4, nl BPP 8/8, nl umb. art. Dopplers A/P 21yo G1 at 29w4d (EDC 11/20/2022) - PPROM reviewed this dx and implications discussed rationale for exp. mgmt. and R/B/A, includng small but significant risk of stillbirth discussed delivery may be indicated anytime for labor / infection / NRFHT - or generally by 34w recommended - discussed in some cases consideration can be given to go beyond 34w if desired receiving mag sulfate - would continue for up to 48w receiving BMZ series NICU consult recommended recommend to obtain GBS and GC/C swabs SCDs at bedtime recommended - may consider prophlyactic anticoagulation Questions reviewed in detail - Short Interval will cont. to follo - Hx of PIH in Prior per report today no evidence of PIH at present will monitor Thank you for sharing in the care of your patient! Will cont. to follow with you closely Floor time 80min at 1731 RPT #:[id number] END OF REPORT [facility] 2022-09-07 22:44:00 [facility] ([facility]) OB Medical Screening Exam REPORT#:[id number] REPORT STATUS: Signed DATE:09/07/22 TIME: 2244 PATIENT: LUIS EDMONDS UNIT #: [id number] ROOM/BED: [address]: 02 AGE: 21 SEX: F ATTEND: Luis Burciaga MD ADM AUTHOR: Juany Carrillo MD * ALL edits or amendments must be made on the electronic/computer document * Medical Screening Exam Provider Attestation Attestation: The QMP MSE reviewed. Notified at 213 Physician at bedside 2140 Comments: 21 y/o female at 29-3/7 weeks who presents after several gushes of clear fluid from the vagina. Patient is certain that she did not leak urine. at 0557 RPT #:[id number] END OF REPORT [facility] 2022-09-07 22:43:00 [facility] ([facility]) [facility] Evaluation Note REPORT#:[id number] REPORT STATUS: Signed DATE:09/07/22 TIME: 2242 PATIENT: LUIS EDMONDS UNIT #: [id number] ROOM/BED: [place] [address] : 02 AGE: 21 SEX: F ATTEND: Luis Burciaga MD ADM AUTHOR: Juany Carrillo MD * ALL edits or amendments must be made on the electronic/computer document * [facility] History Chief complaint: suspected ruptured memb HPI: 21 y/o female at 29-3/7 weeks who presents after several gushes of clear fluid from the vagina. Patient is certain that she did not leak urine. Patient denies any vaginal bleeding or contractions. She reports good movement. PNC with Dr. Burciaga which has been uncomplicated to date history: : 2 Term: 1 [...] speech Abdomen: gravid, soft, no abnormal tenderness, no guarding Musculoskeletal: painless range of motion Genitourinary: no flank pain Uterine activity: Monitor: toco Frequency (description): none Pelvic exam: Pelvis clinically adequate: yes Vulvar lesions: none Vagina: normal Sterile speculum exam: visually closed, physiological discharge, no pooling, no bleeding Cervical/ exam: Dilatation (cm): 0 - closed Effacement (%): 0 station: - 3 FHR evaluation: Baseline: 150 bpm Variability: minimal < or = 5 bpm Accelerations: absent Decelerations: few mild variables of prematurity FHR category: tracing overall reassuring for EGA Membranes: Membranes: status undetermined Lower extremities: Edema: none Colleen's sign: negative Calf tenderness: negative Results Findings/Data: Laboratory Tests: 09/07 Other Body Source Membrane Rupture (NEGATIVE) POSITIVE H Urines Urine Color (YEL/STRAW) STRAW Urine Appearance (CLEAR) CLEAR Urine pH (5.0 - 7.0) 7.0 Ur Specific [place] (1.005 - 1.030) 1.006 Urine Protein (NEGATIVE) [...] (PPROM) delivered, current hospitalization Free Text A P: 21 y/o female at 29-3/7 weeks who presents with PROM; ROM plus is positive. There is no evidence of active labor. tracing is reassuring. Patient is managed by Dr. Burciaga and the OB Hospitalist Service is covering his patients at this time. Plan: admit to inpatient, transfer to antepartum; PPROM protocol; Continuous EFM; Consult MFM Plan discussed with: patient, parent Time spent: Time spent on patient care (minutes): 35 >50% spent on counseling/coordination of care: yes at 0549 RPT #:[id number] END OF REPORT [facility] 2022-08-06 11:00:00 [facility] ([facility]) OB Medical Screening Exam REPORT#:[id number] REPORT STATUS: Signed DATE:08/06/22 TIME: 1100 PATIENT: LUIS EDMONDS UNIT #: [id number] ROOM/BED: : 02 AGE: 21 SEX: F ATTEND: Effie Solitario MD ADM AUTHOR: Effie Solitario MD * ALL edits or amendments must be made on the electronic/computer document * Medical Screening Exam Provider Attestation Attestation: The QMP MSE reviewed. DATE 08/03/2019 Notified at 1523 Provider at bedside at 1523 Comments: 21 Y/O IUP 24 2/7 presents due to cramping. at 1101 RPT #:[id number] END OF REPORT [facility] 2022-08-06 11:00:00 [facility] ([facility]) OLGA Evaluation Note REPORT#:[id number] REPORT STATUS: Signed DATE:08/06/22 TIME: 1100 PATIENT: LUIS EDMONDS UNIT #: [id number] ROOM/BED: : 02 AGE: 21 SEX: F ATTEND: Effie Solitario MD ADM AUTHOR: Effie Solitario MD * ALL edits or amendments must be made on the electronic/computer document * OLGA History Chief complaint: cramping HPI: 21 Y/O IUP 24 08/25 presents due to cramping. She refers good [...] notes: Constitutional: Denies: chills, fatigue, fever, generalized weakness, lethargy, malaise. 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 24 weeks gestation of Free Text A P: Initial exam 1523 Patient presents due to cramping, will send UA and FFN Re-evaluation 1652 UA and FFN negative 21 y/o IUP 24 2 presents due to cramping. FFN and UA negative. Patent found to be hemodynamically stable with normal vital signs, category I strip and found not to be in labor. 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 Assessment: no evidence labor Impression: reactive NST Plan: discharge home Plan discussed with: patient, nurse at 1106 RPT #:[id number] END OF REPORT [facility] 2022-03-06 16:08:00 [facility] ([facility]) emergency provider report report#:[id number] report status: signed date:03/06/22 time: 1608 patient: luis edmonds unit #: [id number] room/bed: age: 21 sex: f pcp phys: emily artis md service dt: 03/06/22 author: ghanshyam chavez md * [...] allergies: malic acid (severe, tongue swelling, throat closing 12/24/17) home medications active scripts ibuprofen (motrin) 600 mg po qid prn prn pain ibuprofen (motrin) 600 mg po qid prn prn pain #30 tabs prov: 11/11/21 calculated suicide risk (nurs) no risk past medical history: reports: asthma. denies: diabetes mellitus, gerd/gastritis, hypertension, kidney disease/stones, seizure disorder. additional medical history chronic pinched nerve additional surgical history tonsilectomy smoking status for patients 13 years old or older: never smoker physical exam vital signs vital [...] sensation intact. ankle with full range of motion. skin [...] mdm notes 21-year-old female presents with right ankle/foot injury. x-rays [...] pulse ox 99 03/06 1506 b/p 115/75 08/ 1506 b/p mean 88 03/06 1506 o2 delivery room air 03/06 1506 temp 36.6 03/06 1506 pulse 82 08 1506 resp 18 03/06 1506 last documented: result date time pulse ox 99 03/06 1506 b/p 115/75 03/06 1506 b/p mean 88 03/06 1506 o2 delivery room air 03/06 1506 temp 36.6 03/06 1506 pulse 82 03/06 1506 resp 18 03/06 1506 all vital signs available at the time of this entry have been reviewed. clinical impression clinical impression primary impression: ankle sprain secondary impressions: foot sprain disposition decision discharge )( discharged to home yes )( time 1609 )( date 03/06/22 discharge/care plan counseled regarding diagnosis, imaging studies, prescriptions, need for follow- up, [...] asdir dme - crutches (crutch set) [facility] crutch set of choice patient instructions ed ankle sprain (adult), ed foot sprain, ed rice referrals provider referral: cheli gamino md follow-up: as needed notes: orthopedic surgeon address: [address] [place] [address] [address] [place] [address] provider group: primary care follow-up: 1 week departure forms marisol pcp list work/school excuse variable restrictions apply through 03/18/22 may return to work/school 03/09/22 any restrictions wear an ortho boot discharge note i have spoken with the patient and/or caregivers. i have explained the patient's condition, diagnoses and treatment plan based on the [...] of care and follow-up instructions have been explained [...] chavez md on 03/06/22 at 1747 rpt #:[id number] end of report [facility] 2021-11-11 00:46:00 [facility] EMERGENCY PROVIDER REPORT REPORT#:[id number] REPORT STATUS: Signed DATE:11/11/21 TIME: 45 PATIENT: LUIS EDMONDS UNIT #: [id number] ROOM/BED: AGE: 20 SEX: F PCP PHYS: [...] frequency, urgency or dysuria. Denies sick contacts. General Initial Greet Date/Time 11/11/21 0023 Presentation [...] Allergies: MALIC ACID (Severe, TONGUE SWELLING, THROAT CLOSING 12/24/17) Home Medications Discontinued Scripts AMOXICILLIN/CLAV K (AUGMENTIN 875/125 MG) 875 MG PO Q12H 10 Days #20 TABS Prov: 08/08/21 DC: 11/11/21 0022 Therapy completed Discontinued Reported Medications PNV WITH FE FUMARATE/FA () 1 TAB PO DAILY Calculated Suicide Risk (nurs) No risk Past Medical History: Reports: Asthma. Denies: Diabetes mellitus, GERD/gastritis, Hypertension, Kidney disease/stones, Seizure disorder. Additional Medical History chronic pinched nerve Additional Surgical History tonsilectomy Smoking status: Smoking status for patients 13 years old or older: Unknown,if ever smoked Physical Exam Vital Signs Vital Signs First Documented: Result Date Time Pulse Ox 98 11/11 0018 B/P 112/59 11/11 0018 B/P Mean 76 11/11 0018 O2 Delivery Room air 11/11 001 Temp 36.4 11/11 0018 Pulse 81 11/11 0018 Resp 18 11/118 Last Documented: Result Date Time Pulse Ox 100 11/11 0053 B/P 116/62 11/11 0053 B/P Mean 80 11/11 0053 O2 Delivery Room air 11/11 52 Temp 36.4 11/11 0053 Pulse 76 11/11 0053 Resp 18 11/11 0053 Review of Vital Signs Reviewed Basic Physical Exam Basic PE HEAD: Atraumatic/NC, EYES: PERRL, conj clear, ENT: Membranes moist, NECK: Supple, RESP: No resp distress, CV: Reg rate rhythm, ABD: Soft/non- tender, EXT: No gross abnormality, SKIN: No rashes, [...] Lab Results Interpretation Results Laboratory Tests: 11/11 40 Urines POC Urine pH (5.0 - 7.0) 7 Ur Specific [place] (1.005 - 1.030) 1.010 POC Urine Protein (NEGATIVE) NEGATIVE POC Ur Glucose (UA) (NEGATIVE) NEGATIVE POC Urine Ketones (NEGATIVE) NEGATIVE POC Urine Blood (NEGATIVE) NEGATIVE POC Urine Nitrite (Negative) NEGATIVE Urine Bilirubin (NEGATIVE) NEGATIVE POC Urine Urobilinogen (0.2 - 1.0) NORMAL POC U Leukocyte Esteras (NEGATIVE) Negative Lab Statement Laboratory studies reviewed and considered in the medical decision-making. Re-Evaluation MDM Re-Evaluation/Progress [...] 0018 Pulse 81 11/11 0018 Resp 18 11/11 0018 Last Documented: Result Date Time Pulse Ox 100 11/11 0053 B/P 116/62 11/11 0053 B/P Mean 80 11/11 0053 O2 Delivery Room air 11/11 0053 Temp 36.4 11/11 0053 Pulse 76 11/11 0053 Resp 18 11/11 0053 All vital signs available at the time of this entry have been reviewed. Condition Stable Clinical Impression Clinical Impression Primary Impression: Back pain Disposition Decision Discharge )( Discharged to Home Yes )( Time 0046 )( Date 11/11/21 Discharge/Care Plan Counseled Regarding Diagnosis, Lab results, Prescriptions, Need for follow-up, When to return to ED (Auto) Prescriptions Current Visit Scripts IBUPROFEN (MOTRIN) 600 MG PO QID PRN PRN PAIN IBUPROFEN (MOTRIN) 600 MG PO QID PRN PRN PAIN #30 TABS Patient Instructions ED Back Pain (Acute or Chronic) Additional Instructions Return to the ER if symptoms worsen Departure Forms MARISOL PCP LIST Discharge Note I have spoken with the patient and/or caregivers. I have explained the patient's condition, diagnoses and treatment plan based on the [...] of care and follow-up instructions have been explained in detail. The patient and/or caregivers have received these instructions in written format and have expressed an understanding of the discharge instructions. The patient and/or caregivers are aware that any significant change in condition or worsening of symptoms should prompt an immediate return to this or the closest emergency department or a call to 911. at 0107 RPT #:[id number] END OF REPORT [facility] 2021-08-08 22:23:00 [facility] ([facility]) EMERGENCY PROVIDER REPORT REPORT#:[id number] REPORT STATUS: Signed DATE:08/08/21 TIME: 2222 PATIENT: LUIS EDMONDS UNIT #: [id number] ROOM/BED: AGE: 20 SEX: F PCP PHYS: Emily Artis MD SERVICE AUTHOR: Ghanshyam Chavez MD * ALL edits or amendments must be made on the electronic/computer document * HPI-Recheck W/B/S General Initial Greet [...] Allergies: MALIC ACID (Severe, TONGUE SWELLING, THROAT CLOSING 12/24/17) Home Medications Reported Medications PNV WITH FE FUMARATE/FA () 1 TAB PO DAILY Past Medical History: Reports: Asthma. Denies: Diabetes mellitus, GERD/gastritis, Hypertension, Kidney disease/stones, Seizure disorder. Additional Medical History chronic pinched nerve Additional Surgical History tonsilectomy Smoking status: Smoking status for patients 13 years old or older: Never Smoker Physical Exam Vital Signs Vital [...] R breast with increased warmth, w/o skin changes. Breast Tenderness R. Negative: Dimpling R, Discoloration R, Erythema R, Fluctuance R, Mass R, Nipple discharge R, Skin changes L. Re-Evaluation MDM Free Text MDM Notes Free Text MDM Notes 20-year-old female presents with blood in breastmilk from right breast. Exam with increased warmth of right breast. No evidence of abscess. Suspect mastitis. Discharged home with antibiotics and close OB follow-up. Return precautions provided. ED Course Medication(s) Ordered Medication(s) Ordered: Central Nervous System Agents Sig/Victoriano Start time Last Medication Dose Route Stop Time Status Admin Acetaminophen 650 MG X1ED STA 08/08 2208 DC 08/08 PO 08/08 Patient Discharge Departure Vital Signs/Condition [...] of this entry have been reviewed. Clinical Impression Clinical Impression Primary Impression: Mastitis, right, acute Disposition Decision Discharge )( Discharged to Home Yes )( Time 2224 )( Date 08/08/21 Discharge/Care Plan Counseled Regarding Diagnosis, Prescriptions, Need for follow-up, When to return to ED (Auto) Prescriptions Current Visit Scripts AMOXICILLIN/CLAV K (AUGMENTIN 875/125 MG) 875 MG PO Q12H 10 Days #20 TABS Patient Instructions ED Mastitis Referrals PRIMARY CARE: 2-3 Days Follow up with your OB in 3 days. Discharge Note I have spoken with the patient and/or caregivers. I have explained the patient's condition, diagnoses and treatment plan based on the [...] of care and follow-up instructions have been explained in detail. The patient and/or caregivers have received these instructions in written format and have expressed an understanding of the discharge instructions. The patient and/or caregivers are aware that any significant change in condition or worsening of symptoms should prompt an immediate return to this or the closest emergency department or a call to 911. at [address] [place] [address] #:[phone] END OF REPORT [facility] 2021-03-28 09:04:00 [facility] ([facility] OB Disch REPORT#:[id number] REPORT STATUS: Signed DATE:03/28/21 TIME: 0904 PATIENT: LUIS EDMONDS UNIT #: [id number] ROOM/BED: [facility] : 02 AGE: 20 SEX: F ATTEND: Luis Burciaga MD ADM AUTHOR: Luis Burciaga MD * ALL edits or amendments must be made on the electronic/computer document * Subjective Subjective Admission EGA: Weeks: [...] date A: 03/26/21 Delivery time infant A: 1807 Birthweight (gm) A: 3200 Feeding preference: Gender A: Female 1 minute A: 8 5 minutes infant A: 9 10 minutes A: Provider comments on imported nursing data: [] Plan: routine care, discharge today Discharge Instructions Instructions: routine instr sheet given Diet: Resume Home Diet/Feeds Activity: Resume Normal Activity Additional discharge routines: None at 0905 RPT #:[id number] END OF REPORT [facility] 2021-03-28 09:03:00 [facility] ([facility]) OB Postpart Progr Note REPORT#:[id number] REPORT STATUS: Signed DATE:03/28/21 TIME: 902 PATIENT: LUIS EDMONDS UNIT #: [id number] ROOM/BED: [place] [address] : 02 AGE: 20 SEX: F ATTEND: Luis Burciaga MD ADM AUTHOR: Luis Burciaga MD * ALL edits or amendments must be made on the electronic/computer document * Subjective Subjective Admission EGA: Weeks: [...] Exam Abdomen: soft, no abnormal tenderness, no guarding Uterus: involution appropriate, non-tender Fundus: firm, below the umbilicus Lochia: normal Lacerations: Perineal laceration(s): None Lower extremities: Edema: none Colleen's sign: negative Calf tenderness: negative Diagnosis, Assessment Plan Diagnosis, Assessment Plan Assessment: nml progress Plan: routine care, discharge today at 0904 RPT #:[id number] END OF REPORT [facility] 2021-03-27 09:21:00 [facility] ([facility]) OB Postpart Progr Note REPORT#:[id number] REPORT STATUS: Signed DATE:03/27/21 TIME: 920 PATIENT: LUIS EDMONDS UNIT #: [id number] ROOM/BED: [place] [address] : 02 AGE: 20 SEX: F ATTEND: Luis Burciaga MD ADM AUTHOR: Luis Burciaga MD * ALL edits or amendments must be made on the electronic/computer document * Subjective Subjective Admission EGA: Weeks: [...] 03/27 0100 37.0 83 16 108/68 97 03/26 2115 37.1 62 18 131/79 98 03/26 2035 94.0 03/26 2035 59 126/73 03/26 2021 82.0 03/26 2021 76 129/57 03/26 1956 37.1 16 03/26 1956 76.0 03/26 1956 72 117/53 03/26 1940 69 100 03/26 1935 87.0 03/26 1935 69 125/62 03/26 1925 78 100 03/26 1920 86.0 03/26 1920 87 120/60 03/26 1905 80.0 09/08 1905 75 119/56 09/08 [...] Exam Abdomen: soft, no abnormal tenderness, no guarding Uterus: involution appropriate, non-tender Fundus: firm, below the umbilicus Lochia: normal Lacerations: Perineal laceration(s): None Lower extremities: Edema: none Colleen's sign: negative Calf tenderness: negative Result Findings/Data: Laboratory Tests: 03/27 0420 Hematology WBC (4.5 - [...] % (Auto) (14.0 - 32.0 %) 24.9 [place] % (Auto) (4.8 - 9.0 %) 9.4 H Eos % (Auto) (0.3 - 3.7 %) 0.6 Baso % (Auto) (0.0 - 2.0 %) 0.2 Neut # (Auto) (2.0 - 7.6 x10 3/uL) 8.09 H Lymph # (Auto) (1.0 - 3.8 x10 3/uL) 3.13 [place] # (Auto) (0.1 - 0.8 x10 3/uL) [...] 3/uL) 0.00 Diagnosis, Assessment Plan Diagnosis, Assessment Plan Assessment: nml progress Plan: routine care at 0922 RPT #:[id number] END OF REPORT [facility] 2021-03-26 18:49:00 [facility] ([facility]) OB Delivery Note REPORT#:[id number] REPORT STATUS: Signed DATE:03/26/21 TIME: 1848 PATIENT: LUIS EDMONDS UNIT #: [id number] ROOM/BED: [place] [id number] : 02 AGE: 20 SEX: F ATTEND: Luis Burciaga MD ADM AUTHOR: Luis Burciaga MD * ALL edits or amendments must be made on the electronic/computer document * OB Delivery Nursing Documentation Review Nursing data: The data set between the solid lines has been imported from nursing documentation. Any exceptions have been noted below under Provider comments. _ ROM date: 03/26/21 ROM time: 1105 Membranes rupture method: AROM Amniotic fluid color: Clear Amniotic fluid amount: Steroids prior to arrival: Antibiotic prophylaxis given: Post hemorrhage risk score: Low Risk for Hemorrhage. Delivery date A: 03/26/21 Delivery time A: 1807 Birthweight (gm) infant A: 3200 Weight (lb) infant A: Weight (oz) A: Gender infant A: Female 1 minute A: 5 minutes [...] loss at delivery: 50 at 1852 RPT #:[id number] END OF REPORT [facility] 2021-03-26 08:25:00 [facility] ([facility]) DT History Physical REPORT#:[id number] REPORT STATUS: Signed DATE:03/26/21 TIME: 824 PATIENT: LUIS EDMONDS UNIT #: [id number] ROOM/BED: [place] [address] : 02 AGE: 20 SEX: F ATTEND: Luis Burciaga MD ADM AUTHOR: Luis Burciaga MD * ALL edits or amendments must be made on the electronic/computer document * History Physical History Physical Please care records and office H P at 2112 RPT #:[id number] END OF REPORT [facility] 2021-03-12 21:16:00 [facility] ([facility]) OB Medical Screening Exam REPORT#:[id number] REPORT STATUS: Signed DATE:03/12/21 TIME: 2115 PATIENT: LUIS EDMONDS UNIT #: [id number] ROOM/BED: : 02 AGE: 20 SEX: F ATTEND: Effie Solitario MD ADM AUTHOR: Effie Solitario MD * ALL edits or amendments must be made on the electronic/computer document * Medical Screening Exam Provider Attestation Attestation: The QMP MSE reviewed. Provider at bedside at 2113 Comments: 20 y/o GP0 IUP 35 4/7 presents due to leaking of fluid and contractions. at 2152 RPT #:[id number] END OF REPORT [facility] 2021-03-12 21:16:00 [facility] ([facility]) OLGA Evaluation Note REPORT#:[id number] REPORT STATUS: Signed DATE:03/12/21 TIME: 2115 PATIENT: LUIS EDMONDS UNIT #: [id number] ROOM/BED: [place] [address] : 02 AGE: 20 SEX: F ATTEND: Effie Solitario MD ADM AUTHOR: Effie Solitario MD * ALL edits or amendments must be made on the electronic/computer document * OLGA History Chief complaint: uterine contractions, suspected ruptured memb HPI: 20 y/o GP0 IUP 35 4/7 presents due to leaking of fluid and contractions. She refers good movements and denies any vaginal bleeding or recent exposure tVerbal consent obtained from patient to discuss history, lab results, treatment , plan and any other pertinent information in [...] Allergies: MALIC ACID (Severe, TONGUE SWELLING, THROAT CLOSING 12/24/17) Review of Systems Additional notes: Constitutional: Denies: chills, fatigue, fever, generalized weakness, lethargy, malaise. Respiratory: Denies: productive cough (sputum), [...] toco Frequency (description): uterine irritability Frequency (minutes): INSTRUMENT ASSEMBLY SUPERVISOR: Normal exteral genitalia Cervical/ exam: Speculum exam: [...] and contractions. Will send UA and amnisure. Re-evaluation 2230 Ordered BPP 2355 Awaiting BPP results. 0050 [...] understanding will have her follow-up with her APARTMENT MAINTENANCE SUPERVISOR. Assessment: no evidence labor Impression: reactive NST Plan: discharge home Plan discussed with: patient, nurse at 0104 RPT #:[id number] END OF REPORT [facility] 2021-03-01 06:09:00 [facility] ([facility]) OLGA Evaluation Note REPORT#:[id number] REPORT STATUS: Signed DATE:03/01/21 TIME: 608 PATIENT: LUIS EDMONDS UNIT #: [id number] ROOM/BED: [place] [address] : 02 AGE: 20 SEX: F ATTEND: Luis Burciaga MD ADM AUTHOR: Effie Solitario MD * ALL edits or amendments must be made on the electronic/computer document * See Addendum OLGA History Chief complaint: decreased movement, Pelvic pressure HPI: 20 y/o IUP 34 0/7 presents due to decreased movements and pelvic pressure. She denies any gush of vaginal fluids, vaginal bleeding or recent exposure to COVID, fever or SOB. Verbal consent obtained from patient to discuss history, lab results, treatment, plan and any other pertinent information in front of patient's companions. history: : 1 Current [...] 1511 0538 () Strength: 1 EACH TAB Allergies Uncoded Allergies: MALIC ACID (Severe, TONGUE SWELLING, THROAT CLOSING 12/24/17) Review of Systems Additional notes: Constitutional: Denies: chills, fatigue, fever, generalized weakness, lethargy, malaise. Respiratory: Denies: productive cough (sputum), [...] Monitor: toco Frequency (description): irregular Frequency (minutes): INSTRUMENT ASSEMBLY SUPERVISOR: Normal exteral genitalia Cervical/ exam: Dilatation (cm): 0.5 Effacement (%): 50 station: -4 Presentation: VX Membrane status:IM FHR evaluation: FHR category: category I Diagnosis, Assessment Plan Diagnosis, Assessment Plan Problem List/A P: 1. 34 weeks gestation of 2. Decreased movement Free Text A P: initial exam 0600 Patient presents due to decreased movements and pelvic pressure. Will order BPP and UA. Dr Chavez will assume care at 0700 at 0647 Addendum 1: 03/01/21 0853 by Pearl Chavez DO BPP 02/23 ISMA NOT ON U/S SO I CALLED AND VERBAL REPORT FR TECH WAS 13 CM VERTEX VE EXT 1/2 CM, CLOSED INTERNALLY, THICK, POSTERIOR D/C HOME W PRECAUTIONS. F/U W DR. BURCIAGA AT HER APT WEDNESDAY. at 0854 RPT #:[id number] END OF REPORT [facility] 2021-03-01 06:09:00 [facility] ([facility] OB Medical Screening Exam REPORT#:[id number] REPORT STATUS: Signed DATE:03/01/21 TIME: 06 PATIENT: LUIS EDMONDS UNIT #: [id number] ROOM/BED: [place] [address] : 02 AGE: 20 SEX: F ATTEND: Luis Burciaga MD ADM AUTHOR: Effie Solitario MD * ALL edits or amendments must be made on the electronic/computer document * Medical Screening Exam Provider Attestation Attestation: The P MSE reviewed. Provider at bedside at 0600 Comments: IUP 34 0/7 presents due to decreased movements and pelvic pressure. at 0643 RPT #:[id number] END OF REPORT [facility] 2021-03-01 06:09:00 [facility] ([facility]) OLGA Evaluation Note REPORT#:[id number] REPORT STATUS: Signed DATE:03/01/21 TIME: 608 PATIENT: LUIS EDMONDS UNIT #: [id number] ROOM/BED: [place] [address] : 02 AGE: 20 SEX: F ATTEND: Luis Burciaga MD ADM AUTHOR: Effie Solitario MD * ALL edits or amendments must be made on the electronic/computer document * OLGA History Chief complaint: decreased movement, Pelvic pressure HPI: 20 y/o IUP 34 0/7 presents due to decreased movements and pelvic pressure. She denies any gush of vaginal fluids, vaginal bleeding or recent exposure to COVID, fever or SOB. Verbal consent obtained from patient to discuss history, lab results, treatment, plan and any other pertinent information in front of patient's companions. history: : 1 Current [...] 1511 0538 () Strength: 1 EACH TAB Allergies Uncoded Allergies: MALIC ACID (Severe, TONGUE SWELLING, THROAT CLOSING 12/24/17) Review of Systems Additional notes: Constitutional: Denies: chills, fatigue, fever, generalized weakness, lethargy, malaise. Respiratory: Denies: productive cough (sputum), [...] Monitor: toco Frequency (description): irregular Frequency (minutes): INSTRUMENT ASSEMBLY SUPERVISOR: Normal exteral genitalia Cervical/ exam: Dilatation (cm): 0.5 Effacement (%): 50 station: -4 Presentation: VX Membrane status:IM FHR evaluation: FHR category: category I Diagnosis, Assessment Plan Diagnosis, Assessment Plan Problem List/A P: 1. 34 weeks gestation of 2. Decreased movement Free Text A P: initial exam 0600 Patient presents due to decreased movements and pelvic pressure. Will order BPP and UA. Dr Chavez will assume care at 0700 at 0647 RPT #:[id number] END OF REPORT [facility] 2021-02-17 15:34:00 [facility] ([facility] OB Medical Screening Exam REPORT#:[id number] REPORT STATUS: Signed DATE:02/17/21 TIME: 1534 PATIENT: LUIS EDMONDS UNIT #: [id number] ROOM/BED: [place] [address] : 02 AGE: 20 SEX: F ATTEND: Effie Solitario MD ADM DT: AUTHOR: Effie Solitario MD * ALL edits or amendments must be made on the electronic/computer document * Medical Screening Exam Provider Attestation Attestation: The P MSE reviewed. Provider at bedside at 1537 Comments: 20 y/o IUP 32 2/7 presents due to gush of fluids and cramping. at 1615 RPT #:[id number] END OF REPORT [facility] 2021-02-17 15:34:00 [facility] ([facility]) OLGA Evaluation Note REPORT#:[id number] REPORT STATUS: Signed DATE:02/17/21 TIME: 1533 PATIENT: LUIS EDMONDS UNIT #: [id number] ROOM/BED: : 02 AGE: 20 SEX: F ATTEND: Effie Solitario MD ADM DT: AUTHOR: Effie Solitario MD * ALL edits or amendments must be made on the electronic/computer document * OLGA History Chief complaint: uterine contractions, suspected ruptured memb HPI: 20 y/o IUP 32 08/25 presents due to gush of fluids and cramping. She refers good movements and denies any vaginal bleeding or recent exposure to COVID , fever or SOB. Verbal consent obtained from patient to discuss history, lab results, treatment, plan and any other pertinent information in front of patient's companions. history: : 1 Current [...] Allergies: MALIC ACID (Severe, TONGUE SWELLING, THROAT CLOSING 12/24/17) Review of Systems Additional notes: Constitutional: Denies: chills, fatigue, fever, generalized weakness, lethargy, malaise. Respiratory: Denies: productive cough (sputum), SOB. GI: Refers: nausea Denies: abdominal pain, constipation, diarrhea, vomiting. : Refers: gush of vaginal fluids and contractions Denies: urgency, vaginal bleeding. Neuro: Denies: headache Objective General VS: Last Documented: Result Date Time Temp 98.3 02/18 1536 Resp 16 08/02 1536 B/P Mean 76.0 1524 Pulse Ox 99 08/ 1524 B/P 105/59 08/02 1524 Pulse 122 08/ 1524 Vital Signs Date Temp Pulse Resp B/P B/P Mean Pulse Ox FiO2 / 98.3 122 16 105/59 76.0 99 PATIENT WEIGHT: Weight (lb): Weight (oz): Weight (kg): Physical Exam Additional comments: Gen: AAOx3 Lungs: normal respiratory effort Neuro: Exam: alert, oriented x3 Abdomen: gravid, soft Uterine activity: Monitor: toco Frequency (description): none Frequency (minutes): INSTRUMENT ASSEMBLY SUPERVISOR: Normal exteral genitalia Cervical/ exam: Speculum exam: [...] contractions. Will send FFN, amnisure and UA. Re-evaluation [...] understanding will have her follow-up with her APARTMENT MAINTENANCE SUPERVISOR. Assessment: no evidence labor Impression: reactive NST Plan: discharge home Plan discussed with: patient, nurse at 1950 RPT #:[id number] END OF REPORT [facility] 2021-02-12 21:22:00 [facility] ([facility]) OB Medical Screening Exam REPORT#:[id number] REPORT STATUS: Signed DATE:02/12/21 TIME: 2121 PATIENT: LUIS EDMONDS UNIT #: [id number] ROOM/BED: : 02 AGE: 20 SEX: F ATTEND: Effie Solitario MD ADM DT: AUTHOR: Effie Solitario MD * ALL edits or amendments must be made on the electronic/computer document * Medical Screening Exam Provider Attestation Attestation: The QMP MSE reviewed. Provider at bedside at 0754 Comments: 20 y/o IUP 32 0/7 presents due to complaind of abdominal and epigastric pain, nausea and decreased movements. at 0915 RPT #:[id number] END OF REPORT [facility] 2021-02-12 21:21:00 [facility] OLGA Evaluation Note REPORT#:[id number] REPORT STATUS: Signed DATE:02/12/21 TIME: 2120 PATIENT: LUIS EDMONDS UNIT #: [id number] ROOM/BED: : 02 AGE: 20 SEX: F ATTEND: Effie Solitario MD ADM DT: AUTHOR: Effie Solitario MD * ALL edits or amendments must be made on the electronic/computer document * OLGA History Chief complaint: uterine contractions, nausea, abdominal pain HPI: 20 y/o IUP 32 0/7 presents due to complaint of contraction, nausea and decreased movements. She denies any gush of vaginal fluids, vaginal bleeding or recent exposure to COVID, fever or SOB. Verbal consent obtained from patient to discuss history, lab results, treatment, plan and any other pertinent information in front of patient's companions. history: : 1 Current [...] Allergies: MALIC ACID (Severe, TONGUE SWELLING, THROAT CLOSING 12/24/17) Review of Systems Additional notes: Constitutional: Denies: chills, fatigue, fever, generalized weakness, lethargy, malaise. Respiratory: Denies: productive cough (sputum), [...] Monitor: toco Frequency (description): none Frequency (minutes): INSTRUMENT ASSEMBLY SUPERVISOR: Normal exteral genitalia Cervical/ exam: Speculum exam: no discharge Dilatation (cm): closed Effacement (%): thick station: high FHR evaluation: FHR category: category I Results Findings/Data: Laboratory Tests: 02/12 Miscellaneous Fibronectin (NEGATIVE) NEGATIVE Urines Urine Color (YEL/STRAW) YELLOW Urine Appearance (CLEAR) CLEAR Urine pH (5.0 - 7.0) 6.0 Ur Specific [place] (1.005 - 1.030) 1.006 Urine Protein (NEGATIVE) [...] understanding will have her follow-up with her APARTMENT MAINTENANCE SUPERVISOR. Assessment: no evidence labor Impression: reactive NST Plan: discharge home Plan discussed with: patient, nurse at 0921 RPT #:[id number] END OF REPORT [facility] 2021-01-29 03:41:00 [facility] ([facility]) OLGA Evaluation Note REPORT#:[id number] REPORT STATUS: Signed DATE:01/29/21 TIME: 034 PATIENT: LUIS EDMONDS UNIT #: [id number] ROOM/BED: [facility] : 02 AGE: 20 SEX: F ATTEND: Dottie Chavez MD ADM AUTHOR: Dottie Chavez MD * ALL edits or amendments must be made on the electronic/computer document * OLGA History Chief complaint: uterine [...] 1 TAB PO DAILY 12/25/20 01/29/21 FUMARATE/FA 1161 0302 () Strength: 1 EACH TAB Allergies Uncoded Allergies: MALIC ACID (Severe, TONGUE SWELLING, THROAT CLOSING 12/24/17) Review of Systems : Reports: pelvic [...] breathing Abdomen: gravid, soft, no abnormal tenderness, no rebound tenderness, normoactive bowel sounds Uterine activity: [...] pH (5.0 - 7.0) 7.0 Ur Specific [place] (1.005 - 1.030) 1.010 Urine Protein (NEGATIVE) [...] f/u as scheduled with primary OB in [place], [place] at 0355 RPT #:[id number] END OF REPORT [facility] 2021-01-29 03:39:00 [facility] ([facility]) OB Medical Screening Exam REPORT#:[id number] REPORT STATUS: Signed DATE:01/29/21 TIME: 033 PATIENT: LUIS EDMONDS UNIT #: [id number] ROOM/BED: [place] [address] : 02 AGE: 20 SEX: F ATTEND: Dottie Chavez MD ADM AUTHOR: Dottie Chavez MD * ALL edits or amendments must be made on the electronic/computer document * Medical Screening Exam Provider Attestation Comments: 20 y/o G1 @ 29w with lower abd cramping as well as constant left flank pain on side for 2 days. reports +FM , no lof/rom. no vb. at 0341 RPT #:[id number] END OF REPORT [facility] 2020-12-25 16:25:00 [facility] ([facility]) OLGA Evaluation Note REPORT#:[id number] REPORT STATUS: Signed DATE:12/25/20 TIME: 1624 PATIENT: LUIS EDMONDS UNIT #: [id number] ROOM/BED: [place] [address] : 02 AGE: 20 SEX: F ATTEND: Pearl Chavez DO ADM AUTHOR: Pearl Chavez DO * ALL edits or amendments must be made on the electronic/computer document * OLGA History Chief complaint: discomfort, nausea and vomiting HPI: 20 y/o EDC 04/12 at 24 w 4 day presents with low back pain, vaginal pain, pressure like needs to take BM, and she is not sure what the fluid that leaked at 0200 this am was, denies urine. She was told in prior u/s at [facility] that ISMA was low, she did have a f/u u/s after that but is not sure results. She is not sure if cxn. She has good mvmt and no vaginal bleeding. Thinks she lost her mucus plug. She denies vaginal odor or itching; and thinks her last sex was 2-3 days ago. She is also pumping her breast daily w pump b/c has milk and says was told she could by her care office. history: : 1 Current : EDC: 04/12/21 EGA (weeks/days): 24 weeks 4 day Conditions of : anemia, ? oligo Past medical history: Covid positive Past surgical history: tonsils/adenoids Social history: unemployed, single, no alcohol use, no [...] Allergies: MALIC ACID (Severe, TONGUE SWELLING, THROAT CLOSING 12/24/17) Review of Systems Constitutional: Denies: fever. [...] Pulse Ox FiO2 12/25 97.6 104-113 16 117/ 86.0 98 PATIENT WEIGHT: Weight (lb): Weight (oz): Weight (kg): Physical Exam HEENT: normocephalic w/o injury, no scleral icterus Lungs: unlabored breathing Neuro: Exam: alert, oriented x3, normal speech Abdomen: gravid, soft, no abnormal tenderness, no guarding, no rebound tenderness Uterine activity: Monitor: [...] for cxn. Will f/u at 1632 RPT #:[id number] END OF REPORT [facility] 2020-12-25 16:25:00 [facility] ([facility]) OLGA Evaluation Note REPORT#:[id number] REPORT STATUS: Signed DATE:12/25/20 TIME: 1625 PATIENT: LUIS EDMONDS UNIT #: [id number] ROOM/BED: 304-1 : 02 AGE: 20 SEX: F ATTEND: Pearl Chavez DO ADM AUTHOR: Pearl Chavez DO * ALL edits or amendments must be made on the electronic/computer document * See Addendum OLGA History Chief complaint: discomfort, nausea and vomiting HPI: 20 y/o EDC 04/12 at 24 w 4 day presents with low back pain, vaginal pain, pressure like needs to take BM, and she is not sure what the fluid that leaked at 0200 this am was, denies urine. She was told in prior u/s at [facility] that ISMA was low, she did have a f/u u/s after that but is not sure results. She is not sure if cxn. She has good mvmt and no vaginal bleeding. Thinks she lost her mucus plug. She denies vaginal odor or itching; and thinks her last sex was 2-3 days ago. She is also pumping her breast daily w pump b/c has milk and says was told she could by her care office. history: : 1 Current : EDC: 04/12/21 EGA (weeks/days): 24 weeks 4 day Conditions of : anemia, ? oligo Past medical history: Covid positive Past surgical history: tonsils/adenoids Social history: unemployed, single, no alcohol use, no [...] Allergies: MALIC ACID (Severe, TONGUE SWELLING, THROAT CLOSING 12/24/17) Review of Systems Constitutional: Denies: fever. [...] Pulse Ox FiO2 12/25 97.6 104-113 16 117/ 86.0 98 PATIENT WEIGHT: Weight (lb): Weight (oz): Weight (kg): Physical Exam HEENT: normocephalic w/o injury, no scleral icterus Lungs: unlabored breathing Neuro: Exam: alert, oriented x3, normal speech Abdomen: gravid, soft, no abnormal tenderness, no guarding, no rebound tenderness Uterine activity: Monitor: [...] at 1632 Addendum 1: 12/25/20 1806 by Chavez,Pearl E DO Rom negative [place] negative U/s vertex, ISMA 13 cm, cervix 3.3 cm long ok to d/c Pelvic rest, and NO breast pumping F/u w her OB this week. at 1807 RPT #:[id number] END OF REPORT [facility] 2020-12-25 16:24:00 [facility]) OB Medical Screening Exam REPORT#:[id number] REPORT STATUS: Signed DATE:12/25/20 TIME: 1624 PATIENT: LUIS EDMONDS UNIT #: [id number] ROOM/BED: [place] [address] : 02 AGE: 20 SEX: F ATTEND: Pearl Chavez DO ADM AUTHOR: Pearl Chavez DO * ALL edits or amendments must be made on the electronic/computer document * Medical Screening Exam Provider Attestation Comments: Pt triaged at 1610. at 1625 RPT #:[id number] END OF REPORT [facility] 2020-11-23 00:54:00 [facility]) OB Triage Visit REPORT#:[id number] REPORT STATUS: Signed DATE:11/23/20 TIME: 0054 PATIENT: LUIS EDMONDS UNIT #: [id number] ROOM/BED: [place] [address] : 02 AGE: 19 SEX: F ATTEND: Brittnee Ramirez MD ADM DT: AUTHOR: Brittnee Ramirez MD * ALL edits or amendments must be made on the electronic/computer document * Subjective Subjective Patient reports: vaginal bleeding History Nursing Documentation Review Nursing data: The data set between the solid lines has been imported from nursing documentation. Any exceptions have been noted below under Provider comments. Current data Steroids prior [...] bleeding HPI: 19 yo 20 weeks states she started to bleed after she came out of the shower around 11 pm tonight. States it was bright red and noticed by her sister. Denies trauma today but states she fell 2 weeks ago, was evaluated and told her fluid level was low. Also has bleeding four weeks ago, again evaluated and reassured. Patient recieves PNC at the [facility]. Did not need to wear a ad [...] 20 Conditions of : teen , low fluid at last ultrasound Past history Past medical [...] Respiratory: Denies: non productive cough, productive cough (sputum), SOB. Cardiovascular: Denies: chest pain, edema. GI: Denies: abdominal pain, nausea, vomiting. : Reports: , vaginal bleeding. Denies: hematuria, pelvic pain. Neuro: Denies: dizziness, lightheaded. Objective General VS: PATIENT WEIGHT: Weight (lb): Weight (oz): Weight (kg): Notes: Gen: well appearing gravid female in NAD Pulm: nl respiratory effort Abd: NT gravid soft Ext: -C/C/E Physical Exam: External genitalia: normal Vagina white creamy discharge, no new or old blood Cervical/ exam: Dilatation (cm): 0 - closed Effacement (%): 0 station: - 5 FHR evaluation: Baseline: 150 bpm Uterine activity: Monitor: toco Frequency (description): none Diagnosis, Assessment Plan Diagnosis, Assessment Plan Free text A P: A/P 19 yo at 20 weeks with bleeding No new or old blood noted vaginally UDS, UA, CBC, blood type ordered Ultrasound complete at 0107 RPT #:[id number] END OF REPORT [facility] 2020-10-05 03:31:00 [facility] ([facility]) EMERGENCY PROVIDER REPORT REPORT#:[id number] REPORT STATUS: Signed DATE:10/05/20 TIME: 033 PATIENT: LUIS EDMONDS UNIT #: [id number] ROOM/BED: AGE: 19 SEX: F PCP PHYS: [...] ago which showed a normal viable IUP. General Initial Greet Date/Time 10/05/20 0116 Presentation Chief Complaint Vaginal bleeding Review of Systems ROS Statements All systems rev neg except as marked. 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 Additional Medical History chronic pinched nerve Additional Surgical History tonsilectomy Patient History FATHER Family History: Heart disease MOTHER Family History: Cancer Smoking status: Smoking status for patients 13 years old or older: Never Smoker Social History Reports: Lives with father, Good social support. 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 Ambulatory Status Independent Physical Exam Vital Signs Vital Signs First Documented: Result Date Time Pulse Ox 99 10/05 0139 B/P 110/67 10/05 0139 B/P Mean 81 10/05 0139 O2 Delivery Room air 10/05 013 Temp 37.2 10/05 013 Pulse 99 10/05 0139 Resp 18 10/05 013 Last Documented: Result Date Time Pulse Ox 99 10/05 0401 B/P 108/65 10/05 0401 B/P Mean 79 10/05 0401 Pulse 81 10/05 0401 Resp 16 10/05 0401 O2 Delivery Room air 10/05 138 Temp 37.2 10/05 013 Review of Vital Signs Reviewed, Vital signs normal Basic Physical Exam Basic PE GEN: Well appearing/NAD, HEAD: Atraumatic/NC, EYES: PERRL, conj clear, ENT: Membranes moist, NECK: Supple, RESP: No resp distress, CV: Reg rate rhythm, ABD: Soft/non-tender, EXT: No gross abnormality, SKIN: No rashes, Warm/ dry, NEURO: alert orient/age, NEURO: gross movement NL, PSYCH: ment status NL/ age Focused PE Genitourinary General Exam deferred Interpretation Diagnostics Lab Results Interpretation Results Laboratory Tests 10/05/20209: [Embedded Image Not Available] Laboratory Tests: 10/05 0210 Chemistry Sodium (134 - [...] % (Auto) (28.0 - 48.0 %) 33.4 [place] % (Auto) (3.0 - 15.0 %) 6.3 Eos % (Auto) (1.0 - 8.0 %) 1.1 Baso % (Auto) (0.0 - 2.0 %) 0.5 Neut # (Auto) (2.0 - 3.2 x10 3/uL) 7.28 H Lymph # (Auto) (1.0 - 3.8 x10 3/uL) 4.17 H [place] # (Auto) (0.1 - 0.8 x10 3/uL) [...] x10 3/uL) 0.00 Miscellaneous Maternal Serum HCG 58129.3 Urines Urine Color (YEL/STRAW) YELLOW Urine Appearance (CLEAR) CLEAR Urine pH (5.0 - 7.0) 5.0 Ur Specific [place] (1.005 - 1.030) 1.017 Urine Protein (NEGATIVE) [...] weeks 0 days. SL: TPAINTER-H Impression By: [email or web address] - Abdias Bethesda, M.D. Lab Imaging Statement Laboratory radiographic studies reviewed and considered in the medical decision-making. Re-Evaluation MDM Re-Evaluation/Progress Re-Evaluation/Progress Time of Re-Eval 331 Re-Eval Status Improved [...] entry have been reviewed. Condition Improved Clinical Impression Clinical Impression Primary Impression: Threatened Disposition Decision Discharge )( Discharged to Home Yes )( Time 033 )( Date 10/05/20 Discharge/Care Plan Counseled Regarding Diagnosis, Lab results, Imaging studies, Prescriptions, Need for [...] ED Abdominal Pain, Early , ED Possible Miscarriage ... Additional Instructions TYLENOL DIRECTED at 4514 RPT #:[id number] END OF REPORT [facility] 2020-08-22 20:42:00 [facility] ([facility]) EMERGENCY PROVIDER REPORT REPORT#:[id number] REPORT STATUS: Signed DATE:08/22/20 TIME: 2041 PATIENT: LUIS EDMONDS UNIT #: [id number] ROOM/BED: AGE: 19 SEX: F PCP PHYS: Elina Rome MD SERVICE AUTHOR: Cathy Bruce * ALL edits or amendments must be made on the electronic/computer document * HPI- Female Free Text HPI Notes Free Text HPI Notes 19-year-old female G1, 6 weeks EGA with LMP109/08 presents to ED after positive test outside medical sales representative'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 She reports associated nausea, vomiting, lower pelvic cramping after "stressful conversations.". She denies dysuria, hematuria, vaginal bleeding or discharge. General Confirmed Patient Yes Initial Greet Date/Time 08/22/20 2018 Presentation Chief Complaint Pelvic pain Hx Obtained From Patient )( Sudden in Onset? No Risk- Female Risk Stratification Ectopic Risk factors reviewed Review of Systems ROS Statements All systems rev neg except as marked. Free Text ROS Notes Free Text ROS Notes Gen: No F/C Lungs: No cough, wheezing, SOB, [place], trouble breathing, or pleuritic chest pain Heart: No Chest pain, RICHARDSON, peripheral edema, orthopnea, PND, palpitations Abd: Denies abdominal pain. Nausea with nonbloody nonbilious emesis. No diarrhea. No melena, hematochezia, or hematemesis : No dysuria, Hematuria, urinary frequency, urgency, no vaginal bleeding or discharge. No h/o STD. No vaginal lesions. Mild pelvic cramping. Skin: No rashes or lesions Ext: No pain, swelling, or deformity Back: No flank pain Neuro: No headache, lightheadedness, dizziness Past Medical History - Adult Stated Complaint "ABD PAIN/BACK PAIN" LMP 07/08/20 Allergies Uncoded Allergies: MALIC ACID (Severe, TONGUE SWELLING, THROAT CLOSING 12/24/17) Home Medications Reported Medications IBUPROFEN (MOTRIN) 800 MG PO TID Past Medical History: Reports: Asthma. Denies: Diabetes mellitus, GERD/gastritis, Hypertension, Kidney [...] 08/22 Review of Vital Signs Reviewed Focused PE Genitourinary General Exam deferred Free Text PE Notes Free Text PE Notes Gen: Well appearing, well hydrated, cooperative Head: Normocephalic, atraumatic Eyes:, Anicteric sclera, No conjunctival injection or exudate Throat: Airway patent, mucous membranes moist Neck: FROM, no midline TTP or meningismus Lungs: CTAB no R/R/W, good air movement. No stridor or accessory muscle use. Heart: RRR no m/g/r. No peripheral edema Abd: S/NT/ND no rebound, guarding, or peritoneal sxs. No palpable masses or pulsetile masses. Negative [place] Sign. No TTP at [place] Ext: FROM BUE/LE. No swelling or deformity. Calves supple bilaterally. 2+ distal pulses, NVI Neuro: A O x 3, GCS 15, CN I-XII grossly intact without focal deficit. Psych: Normal mood and affect. Interpretation Diagnostics Lab Results Interpretation Results Laboratory Tests 08/22/20 2100: [Embedded Image Not Available] Laboratory Tests: 08/22 Chemistry Sodium (134 - 147 [...] % (Auto) (28.0 - 48.0 %) 30.6 [place] % (Auto) (3.0 - 15.0 %) 5.9 Eos % (Auto) (1.0 - 8.0 %) 0.6 L Baso % (Auto) (0.0 - 2.0 %) 0.7 Neut # (Auto) (2.0 - 3.2 x10 3/uL) 6.51 H Lymph # (Auto) (1.0 - 3.8 x10 3/uL) 3.22 [place] # (Auto) (0.1 - 0.8 x10 3/uL) [...] x10 3/uL) 0.00 Miscellaneous Maternal Serum HCG 75344.6 Urines Urine Color (YEL/STRAW) STRAW Urine Appearance (CLEAR) CLEAR Urine pH (5.0 - 7.0) 6.0 Ur Specific [place] (1.005 - 1.030) 1.008 Urine Protein (NEGATIVE) [...] of 6 weeks 4 days. SL: SG-H Impression By: Phil Izquierdo M.D. ULTRASOUND - US PREG 1ST TRIMTR 08/22 2199 Report Impression - Status: SIGNED Entered: 08/22/20202209 IMPRESSION: Single viable intrauterine of estimated sonographic gestational age of 6 weeks 4 days. SL: SG-H Impression By: Phil Izquierdo M.D. Lab Imaging Statement Laboratory radiographic studies reviewed and considered in the medical decision-making. Re-Evaluation MDM Re-Evaluation/Progress [...] 08/22 IV 08/22 Patient Discharge Departure Vital Signs/Condition [...] of this entry have been reviewed. Clinical Impression Clinical Impression Primary Impression: Early stage of Disposition Decision Discharge )( Discharged to Home Yes )( Time 2224 )( Date 08/22/20 Discharge/Care Plan Counseled Regarding Diagnosis, Lab results, Imaging studies, Medication changes, Prescriptions (Auto) Prescriptions Current Visit Scripts ONDANSETRON ODT (ZOFRAN ODT) 4 MG PO Q6H PRN PRN NAUSEA/VOMITING ONDANSETRON ODT (ZOFRAN ODT) 4 MG PO Q6H PRN PRN NAUSEA/VOMITING #15 TABS Prescriptions Reviewed Risks, Benefits, Alternative treatment Patient Instructions ED Abdominal Pain, Early , ED Hyperemesis Gravidarum Additional Instructions Return to ED if severe pain, fever > 102, worsening symptoms Referrals Cricket Bolden MD Discharge Note I have spoken with the patient and/or caregivers. I have explained the patient's condition, diagnoses and treatment plan based on the [...] of care and follow-up instructions have been explained in detail. The patient and/or caregivers have received these instructions in written format and have expressed an understanding of the discharge instructions. The patient and/or caregivers are aware that any significant change in condition or worsening of symptoms should prompt an immediate return to this or the closest emergency department or a call to 1. at 2346 RPT #:[id number] END OF REPORT [facility] 2020-08-22 20:42:00 [facility] ([facility]) EMERGENCY PROVIDER REPORT REPORT#:[id number] REPORT STATUS: Signed DATE:08/22/20 TIME: 2041 PATIENT: LUIS EDMONDS UNIT #: [id number] ROOM/BED: AGE: 19 SEX: F PCP PHYS: Elina Rome MD SERVICE AUTHOR: Cathy Bruce * ALL edits or amendments must be made on the electronic/computer document * Cathy Bruce 08/22/202041: HPI- Female Free Text HPI Notes Free Text HPI Notes 19-year-old female G1, 6 weeks EGA with LMP109/08 presents to ED after positive test outside medical sales representative'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 She reports associated nausea, vomiting, lower pelvic cramping after "stressful conversations.". She denies dysuria, hematuria, vaginal bleeding or discharge. General Confirmed Patient Yes Presentation Chief Complaint Pelvic pain Hx Obtained From Patient )( Sudden in Onset? No Risk- Female Risk Stratification Ectopic Risk factors reviewed Review of Systems ROS Statements All systems rev neg except as marked. Free Text ROS Notes Free Text ROS Notes Gen: No F/C Lungs: No cough, wheezing, SOB, [place], trouble breathing, or pleuritic chest pain Heart: No Chest pain, RICH[place]DS[place], peripheral edema, orthopnea, PND, palpitations Abd: Denies abdominal pain. Nausea with nonbloody nonbilious emesis. No diarrhea. No melena, hematochezia, or hematemesis : No dysuria, Hematuria, urinary frequency, urgency, no vaginal bleeding or discharge. No h/o STD. No vaginal lesions. Mild pelvic cramping. Skin: No rashes or lesions Ext: No pain, swelling, or deformity Back: No flank pain Neuro: No headache, lightheadedness, dizziness Past Medical History - Adult Stated Complaint "ABD PAIN/BACK PAIN" LMP 07/08/20 Allergies Uncoded Allergies: MALIC ACID (Severe, TONGUE SWELLING, THROAT CLOSING 12/24/17) Home Medications Reported Medications IBUPROFEN (MOTRIN) 800 MG PO TID Past Medical History: Reports: Asthma. Denies: Diabetes mellitus, GERD/gastritis, Hypertension, Kidney [...] 08/22 Review of Vital Signs Reviewed Focused PE Genitourinary General Exam deferred Free Text PE Notes Free Text PE Notes Gen: Well appearing, well hydrated, cooperative Head: Normocephalic, atraumatic Eyes:, Anicteric sclera, No conjunctival injection or exudate Throat: Airway patent, mucous membranes moist Neck: FROM, no midline TTP or meningismus Lungs: CTAB no R/R/W, good air movement. No stridor or accessory muscle use. Heart: RRR no m/g/r. No peripheral edema Abd: S/NT/ND no rebound, guarding, or peritoneal sxs. No palpable masses or pulsetile masses. Negative [place] Sign. No TTP at [place] Ext: FROM BUE/LE. No swelling or deformity. Calves supple bilaterally. 2+ distal pulses, NVI Neuro: A O x 3, GCS 15, CN I-XII grossly intact without focal deficit. Psych: Normal mood and affect. Interpretation Diagnostics Lab Results Interpretation Results Laboratory Tests 08/22/20 2100: [Embedded Image Not Available] Laboratory Tests: 08/22 Chemistry Sodium (134 - 147 [...] % (Auto) (28.0 - 48.0 %) 30.6 [place] % (Auto) (3.0 - 15.0 %) 5.9 Eos % (Auto) (1.0 - 8.0 %) 0.6 L Baso % (Auto) (0.0 - 2.0 %) 0.7 Neut # (Auto) (2.0 - 3.2 x10 3/uL) 6.51 H Lymph # (Auto) (1.0 - 3.8 x10 3/uL) 3.22 [place] # (Auto) (0.1 - 0.8 x10 3/uL) [...] x10 3/uL) 0.00 Miscellaneous Maternal Serum HCG 21742.6 Urines Urine Color (YEL/STRAW) STRAW Urine Appearance (CLEAR) CLEAR Urine pH (5.0 - 7.0) 6.0 Ur Specific [place] (1.005 - 1.030) 1.008 Urine Protein (NEGATIVE) [...] of 6 weeks 4 days. SL: SG-H Impression By: Phil Izquierdo M.D. ULTRASOUND - US PREG 1ST TRIMTR 08/22 2199 Report Impression - Status: SIGNED Entered: 08/22/20202209 IMPRESSION: Single viable intrauterine of estimated sonographic gestational age of 6 weeks 4 days. SL: SG-H Impression By: Phil Izquierdo M.D. Lab Imaging Statement Laboratory radiographic studies reviewed and considered in the medical decision-making. Re-Evaluation MDM Re-Evaluation/Progress [...] 08/22 IV 08/22 Patient Discharge Departure Vital Signs/Condition [...] 2241 Pulse 80 08/22 2241 Resp 08/22 All vital signs available at the time of this entry have been reviewed. Clinical Impression Clinical Impression Primary Impression: Early stage of Disposition Decision Discharge )( Discharged to Home Yes )( Time 2224 )( Date 08/22/20 Discharge/Care Plan Counseled Regarding Diagnosis, Lab results, Imaging studies, Medication changes, Prescriptions (Auto) Prescriptions Current Visit Scripts ONDANSETRON ODT (ZOFRAN ODT) 4 MG PO Q6H PRN PRN NAUSEA/VOMITING ONDANSETRON ODT (ZOFRAN ODT) 4 MG PO Q6H PRN PRN NAUSEA/VOMITING #15 TABS Prescriptions Reviewed Risks, Benefits, Alternative treatment Patient Instructions ED Abdominal Pain, Early , ED Hyperemesis Gravidarum Additional Instructions Return to ED if severe pain, fever > 102, worsening symptoms Referrals Cricket Bolden MD Discharge Note I have spoken with the patient and/or caregivers. I have explained the patient's condition, diagnoses and treatment plan based on the [...] of care and follow-up instructions have been explained [...] Saw Pt Alone I have reviewed the PA/MANAGER NURSING HOME's note and plan of care. I was available for consultation as needed at all times during the patient's visit in the emergency department. I agree with the clinical impression, plan and disposition. at 2346 at 2338 RPT #:[id number] END OF REPORT [facility] 2020-02-15 23:20:00 [facility] ([facility] EMERGENCY PROVIDER REPORT REPORT#:[id number] REPORT STATUS: Signed DATE:02/15/20 TIME: 2319 PATIENT: LUIS EDMONDS UNIT #: [id number] ROOM/BED: AGE: 19 SEX: F PCP PHYS: Elina Rome MD SERVICE AUTHOR: Amilcar Pablo NP * ALL edits or amendments must be made on the electronic/computer document * HPI-General Illness Free Text HPI Notes Free Text HPI Notes 19-year-old female with past medical history of asthma presents to the ER with mother with complaint of fever, sore throat, nausea, right ear pain and enlarged R cervical lymph node onset today. Pt took 2 tabs of motrin earlier today. She denies any cough, congestion, SOB, wheezing, abd pain, v/d, dysuria, hematuria or vaginal discharge. No known Covid exposures. General Initial Greet Date/Time 02/15/20 6345 Presentation Chief Complaint Fever, Sore throat Hx Obtained From Patient, PARENT Review of Systems ROS Statements All systems rev neg except as marked. Review of Systems Constitutional Reports: Fever. Ears/Nose/Throat Reports: Earache R, Sore throat. Denies: Nasal congestion. Respiratory Denies: Cough, non-productive, Cough, productive, Shortness of breath, Wheezing. GI Reports: Nausea. Denies: Abdominal pain, Diarrhea, Vomiting. Female Denies: Flank pain, Hematuria, Vaginal discharge. Past Medical History - Adult Stated Complaint FEVER, SORE THROAT, BODY ACHES, Allergies Uncoded Allergies: MALIC ACID (Severe, TONGUE SWELLING, THROAT CLOSING 12/24/17) Home Medications Reported Medications IBUPROFEN (MOTRIN) 800 MG PO TID Past Medical History: Reports: Asthma. Denies: Diabetes mellitus, GERD/gastritis, Hypertension, Kidney disease/stones, Seizure disorder. Additional Medical History chronic pinched nerve Additional Surgical History tonsilectomy Smoking status for patients 13 years old or older: Never Smoker Physical Exam Vital Signs Vital Signs First Documented: Result Date Time Pulse Ox 100 02/14 2308 B/P 112/63 02/14 2308 B/P Mean 79 02/148 O2 Delivery Room air 02/15 2308 Temp 39.1 02/15 2308 Pulse 117 02/15 2308 Resp 18 02/148 Last Documented: Result Date Time Pulse Ox 99 02/15 0328 B/P 96/55 02/15 0328 B/P Mean 68 02/15 0328 O2 Delivery Room air 02/15 032 Temp 36.8 02/15 032 Pulse 83 02/15 0328 Resp 18 02/15 0328 Review of Vital Signs Reviewed Free Text PE Notes Free Text PE Notes Gen: Well developed, acutely ill but non-toxic appearance. smells of smoke Head: Normocephalic Eyes: Pupils midline, sclera NL, no periorbital edema, conjunctiva normal Ears: TMs intact bilaterally with good landmarks, no erythema. EAC patent without swelling, erythema, or drainage. No mastoid swelling or TTP Nose: no nasal drainage or mucosal edema Throat: Moist mucous membranes, handling secretions. Airway patent. OP clear without exudates or petechia. Tonsils surgically absent. Mild protrusion of R posterior upper palate without obvious abscess Neck: Supple, FROM, no meningismus, + R anterior cervical adenopathy Lungs: CTA all lobes. Respirations NL. No wheezing, No rhonchi, No dyspnea. No stridor or accessory muscle use. Heart: Regular rhythm, No murmurs. tachycardia c/w fever Abd: Soft, non-tender, non-distended. No rebound, guarding, or peritoneal sxs. No palpable masses or pulsatile masses. No TTP at [place] Ext: No obvious deformity Neuro: awake and alert, speech NL for age, behavior age-appropriate. Interpretation Diagnostics Lab Results Interpretation Results Laboratory Tests 02/15/206: [Embedded Image Not Available] Laboratory Tests: 02/14 [...] (Auto) (28.0 - 48.0 %) 13.9 L [place] % (Auto) (3.0 - 15.0 %) 10.0 Eos % (Auto) (1.0 - 8.0 %) 0.0 L Baso % (Auto) (0.0 - 2.0 %) 0.4 Neut # (Auto) (2.0 - 3.2 x10 3/uL) 9.16 H Lymph # (Auto) (1.0 - 3.8 x10 3/uL) 1.70 [place] # (Auto) (0.1 - 0.8 x10 3/uL) [...] pH (5.0 - 7.0) 6.0 Ur Specific [place] (1.005 - 1.030) 1.015 Urine Protein (NEGATIVE) [...] CAT SCAN - CT NECK W/CONTRAST 02/15 013 Report Impression - Status: SIGNED Entered: 02/16/2020 1147 IMPRESSION: 1. Enlarged neck lymph nodes bilaterally. Differential consideration would include inflammatory/infectious or metastatic adenopathy. 2. Enlarged right aspect of lingual tonsils. Although this may be due to infectious/inflammatory process, follow-up to resolution recommended. SL: TRES Impression By: Miguelito Wolfe M.D. Lab Imaging Statement Laboratory radiographic studies reviewed and considered in the medical decision-making. Point of Care Testing Pulse Oximetry Pulse Ox % 100 On: Room air Interpretation Interpreted by me, Pulse oximetry normal Time 0128 Re-Evaluation MDM Free Text MDM Notes Free Text MDM Notes Pt notes R cervical lymphadenopathy that has been fluctuant in size for 2-3 years, noting she failed to get bx that was suggested. I advised mother and pt on life threatening risks of lymphadenopathy and advised close OP f/u. Given fever in addition to lymphadenopathy, will cover with empiric ATB therapy. Re-Evaluation/Progress #1 Text/Dict Note Patient reassessed. Patient remains awake, alert, oriented, respirations nonlabored, appears comfortable and is ambulatory with steady gait. I discussed all results, most likely diagnosis, at home recommendations, ED return precautions and advised follow-up with PCP IN 3-10 DAYS FOR RE-EVAL OF LYMPHADENOPATHY Time of [...] X1ED STA 02/15 2312 DC 02/14 IV 02/14 Patient Discharge Departure Vital Signs/Condition Vital Signs First Documented: Result Date Time Pulse Ox 100 02/14 2308 B/P 112/63 02/148 B/P Mean 79 02/14 2308 O2 Delivery Room air 02/15 2308 Temp 39.1 02/15 2308 Pulse 117 02/14 2308 Resp 18 02/15 2308 Last Documented: Result Date Time Pulse Ox 99 02/15 0328 B/P 96/55 02/15 0328 B/P Mean 68 02/15 0328 O2 Delivery Room air 02/16 328 Temp 36.8 02/16 328 Pulse 83 02/16 328 Resp 18 02/16 328 All vital signs available at the time of this entry have been reviewed. Condition Stable Clinical Impression Clinical Impression Primary Impression: Viral pharyngitis Secondary Impressions: Cervical lymphadenopathy, Suspected COVID-19 virus infection Disposition Decision Discharge )( Discharged to Home Yes )( Time 0251 )( Date 02/16/20 COVID-19 Discharge Plan CDC Criteria Met for Testing Yes Test Performed Yes, result pending Discharge/Care Plan Counseled Regarding Diagnosis, Lab results, Imaging studies, Prescriptions, Need for follow-up, When to return to ED Prescriptions motrin, augmentin Referrals Elina Rome MD (PCP/Family) at 0332 RPT #:[id number] END OF REPORT [facility] 2020-02-15 23:20:00 [facility] ([facility]) EMERGENCY PROVIDER REPORT REPORT#:[id number] REPORT STATUS: Signed DATE:02/15/20 TIME: 2319 PATIENT: LUIS EDMONDS UNIT #: [id number] ROOM/BED: AGE: 19 SEX: F PCP PHYS: Elina Rome MD SERVICE AUTHOR: Amilcar Pablo MANAGER [facility]SING HOME * ALL edits or amendments must be made on the electronic/computer document * Amilcar Pablo 02/15/20 2320: HPI-General Illness Free Text HPI Notes Free Text HPI Notes 19-year-old female with past medical history of asthma presents to the ER with mother with complaint of fever, sore throat, nausea, right ear pain and enlarged R cervical lymph node onset today. Pt took [...] Reports: Earache R, Sore throat. Denies: Nasal congestion. Respiratory Denies: Cough, non-productive, Cough, productive, Shortness of breath, Wheezing. GI Reports: Nausea. Denies: Abdominal pain, Diarrhea, Vomiting. Female Denies: Flank pain, Hematuria, Vaginal discharge. Past Medical History - Adult Stated Complaint FEVER, SORE THROAT, BODY ACHES, Allergies Uncoded Allergies: MALIC ACID (Severe, TONGUE SWELLING, THROAT CLOSING 12/24/17) Home Medications Reported Medications IBUPROFEN (MOTRIN) 800 MG PO TID Past Medical History: Reports: Asthma. Denies: Diabetes mellitus, GERD/gastritis, Hypertension, Kidney disease/stones, Seizure disorder. Additional Medical History chronic pinched nerve Additional Surgical History tonsilectomy Smoking status for patients 13 years old or older: Never Smoker Physical Exam Vital Signs Vital Signs First Documented: Result Date Time Pulse Ox 100 02/148 B/P 112/63 02/14 2308 B/P Mean 79 02/148 O2 Delivery Room air 02/15 2308 Temp 39.1 02/15 2308 Pulse 117 02/14 2308 Resp 18 02/148 Last Documented: Result Date Time Pulse Ox 99 02/15 0328 B/P 96/55 02/15 0328 B/P Mean 68 02/15 032 O2 Delivery Room air 02/16 328 Temp 36.8 02/16 328 Pulse 83 02/15 0328 Resp 18 02/15 0328 Review of Vital Signs Reviewed Free Text PE Notes Free Text PE Notes Gen: Well developed, acutely ill but non-toxic appearance. smells of smoke Head: Normocephalic Eyes: Pupils midline, sclera NL, no periorbital edema, conjunctiva normal Ears: TMs intact bilaterally with good landmarks, no erythema. EAC patent without swelling, erythema, or drainage. No mastoid swelling or TTP Nose: no nasal drainage or mucosal edema Throat: Moist mucous membranes, handling secretions. Airway patent. OP clear without exudates or petechia. Tonsils surgically absent. Mild protrusion of R posterior upper palate without obvious abscess Neck: Supple, FROM, no meningismus, + R anterior cervical adenopathy Lungs: CTA all lobes. Respirations NL. No wheezing, No rhonchi, No dyspnea. No stridor or accessory muscle use. Heart: Regular rhythm, No murmurs. tachycardia c/w fever Abd: Soft, non-tender, non-distended. No rebound, guarding, or peritoneal sxs. No palpable masses or pulsatile masses. No TTP at [place] Ext: No obvious deformity Neuro: awake and alert, speech NL for age, behavior age-appropriate. Interpretation Diagnostics Lab Results Interpretation Results [...] (Auto) (28.0 - 48.0 %) 13.9 L [place] % (Auto) (3.0 - 15.0 %) 10.0 Eos % (Auto) (1.0 - 8.0 %) 0.0 L Baso % (Auto) (0.0 - 2.0 %) 0.4 Neut # (Auto) (2.0 - 3.2 x10 3/uL) 9.16 H Lymph # (Auto) (1.0 - 3.8 x10 3/uL) 1.70 [place] # (Auto) (0.1 - 0.8 x10 3/uL) [...] pH (5.0 - 7.0) 6.0 Ur Specific [place] (1.005 - 1.030) 1.015 Urine Protein (NEGATIVE) [...] process, follow-up to resolution recommended. SL: TRES Impression By: [email or web address] Pati Wolfe M.D. Lab Imaging Statement Laboratory radiographic studies reviewed and considered in the medical decision-making. Point of Care Testing Pulse Oximetry Pulse Ox % 100 On: Room air Interpretation Interpreted by me, Pulse oximetry normal Time 0128 Re-Evaluation MDM Free Text MDM Notes Free Text MDM Notes Pt notes R cervical lymphadenopathy that has been fluctuant in size for 2-3 years, noting she failed to get bx that was suggested. I advised mother and pt on life threatening risks of lymphadenopathy and advised close OP f/u. Given fever in addition to lymphadenopathy, will cover with empiric ATB therapy. Re-Evaluation/Progress #1 Text/Dict Note Patient reassessed. Patient remains awake, alert, oriented, respirations nonlabored, appears comfortable and is ambulatory with steady gait. I discussed all results, most likely diagnosis, at home recommendations, ED return precautions and advised follow-up with PCP IN 3-10 DAYS FOR RE-EVAL OF LYMPHADENOPATHY Time of [...] X1ED STA 02/15 2312 DC 02/14 PO 07/30 2313 2320 Diagnostic Agents Sig/Victoriano Start time [...] entry have been reviewed. Condition Stable Clinical Impression Clinical Impression Primary Impression: Viral pharyngitis Secondary Impressions: Cervical lymphadenopathy, Suspected COVID-19 virus infection Disposition Decision Discharge )( Discharged to Home Yes )( Time 0251 )( Date 02/16/20 COVID-19 Discharge Plan CDC Criteria Met for Testing Yes Test Performed Yes, result pending Discharge/Care Plan Counseled Regarding Diagnosis, Lab results, Imaging studies, Prescriptions, Need for follow-up, When to return to ED Prescriptions motrin, augmentin Referrals Elina Rome MD (PCP/Family) Nirav Nolan 02/16/20 0517: HPI-General Illness General Initial Greet Date/Time 02/15/202254 Patient Discharge Departure Supervising Physician Note MidLv Saw Pt Alone I have reviewed the PA/[facility]NAGER [facility]'s note and plan of care. I was available for consultation as needed at all times during the patient's visit in the emergency department. I agree with the clinical impression, plan and disposition. at 0332 RPT #:[id number] END OF REPORT [facility] 2020-02-15 23:20:00 [facility] ([facility]) EMERGENCY PROVIDER REPORT REPORT#:[id number] REPORT STATUS: Signed DATE:02/15/20 TIME: 2319 PATIENT: LUIS EDMONDS UNIT #: [id number] ROOM/BED: AGE: 19 SEX: F PCP PHYS: Elina Rome MD SERVICE AUTHOR: Amilcar Pablo NP * ALL edits or amendments must be made on the electronic/computer document * Amilcar Pablo 02/15/20 2320: HPI-General Illness Free Text HPI Notes Free Text HPI Notes 19-year-old female with past medical history of asthma presents to the ER with mother with complaint of fever, sore throat, nausea, right ear pain and enlarged R cervical lymph node onset today. Pt took [...] Reports: Earache R, Sore throat. Denies: Nasal congestion. Respiratory Denies: Cough, non-productive, Cough, productive, Shortness of breath, Wheezing. GI Reports: Nausea. Denies: Abdominal pain, Diarrhea, Vomiting. Female Denies: Flank pain, Hematuria, Vaginal discharge. Past Medical History - Adult Stated Complaint FEVER, SORE THROAT, BODY ACHES, Allergies Uncoded Allergies: MALIC ACID (Severe, TONGUE SWELLING, THROAT CLOSING 12/24/17) Home Medications Reported Medications IBUPROFEN (MOTRIN) 800 MG PO TID Past Medical History: Reports: Asthma. Denies: Diabetes mellitus, GERD/gastritis, Hypertension, Kidney disease/stones, Seizure disorder. Additional Medical History chronic pinched nerve Additional Surgical History tonsilectomy Smoking status for patients 13 years old or older: Never Smoker Physical Exam Vital Signs Vital [...] 02/16 328 Pulse 83 02/16 328 Resp 02/15 Review of Vital Signs Reviewed Free Text PE Notes Free Text PE Notes Gen: Well developed, acutely ill but non-toxic appearance. smells of smoke Head: Normocephalic Eyes: Pupils midline, sclera NL, no periorbital edema, conjunctiva normal Ears: TMs intact bilaterally with good landmarks, no erythema. EAC patent without swelling, erythema, or drainage. No mastoid swelling or TTP Nose: no nasal drainage or mucosal edema Throat: Moist mucous membranes, handling secretions. Airway patent. OP clear without exudates or petechia. Tonsils surgically absent. Mild protrusion of R posterior upper palate without obvious abscess Neck: Supple, FROM, no meningismus, + R anterior cervical adenopathy Lungs: CTA all lobes. Respirations NL. No wheezing, No rhonchi, No dyspnea. No stridor or accessory muscle use. Heart: Regular rhythm, No murmurs. tachycardia c/w fever Abd: Soft, non-tender, non-distended. No rebound, guarding, or peritoneal sxs. No palpable masses or pulsatile masses. No TTP at [place] Ext: No obvious deformity Neuro: awake and alert, speech NL for age, behavior age-appropriate. Interpretation Diagnostics Lab Results Interpretation Results [...] (Auto) (28.0 - 48.0 %) 13.9 L [place] % (Auto) (3.0 - 15.0 %) 10.0 Eos % (Auto) (1.0 - 8.0 %) 0.0 L Baso % (Auto) (0.0 - 2.0 %) 0.4 Neut # (Auto) (2.0 - 3.2 x10 3/uL) 9.16 H Lymph # (Auto) (1.0 - 3.8 x10 3/uL) 1.70 [place] # (Auto) (0.1 - 0.8 x10 3/uL) [...] pH (5.0 - 7.0) 6.0 Ur Specific [place] (1.005 - 1.030) 1.015 Urine Protein (NEGATIVE) [...] A Streptococcus Screen (KATEY) - RES THROAT 02/14 232 Streptococcus Culture - RES THROAT Recent Impressions: CAT SCAN - CT NECK W/CONTRAST 02/15 0134 Report Impression - Status: SIGNED Entered: 02/16/2020 0239 IMPRESSION: 1. Enlarged neck lymph nodes bilaterally. Differential consideration would include inflammatory/infectious or metastatic adenopathy. 2. Enlarged right aspect of lingual tonsils. Although this may be due to infectious/inflammatory process, follow-up to resolution recommended. SL: TORI-Elin Impression By: Miguelito - Jeromy Wolfe M.D. Lab Imaging Statement Laboratory radiographic studies reviewed and considered in the medical decision-making. Point of Care Testing Pulse Oximetry Pulse Ox % 100 On: Room air Interpretation Interpreted by me, Pulse oximetry normal Time 0128 Re-Evaluation MDM Free Text MDM Notes Free Text MDM Notes Pt notes R cervical lymphadenopathy that has been fluctuant in size for 2-3 years, noting she failed to get bx that was suggested. I advised mother and pt on life threatening risks of lymphadenopathy and advised close OP f/u. Given fever in addition to lymphadenopathy, will cover with empiric ATB therapy. Re-Evaluation/Progress #1 Text/Dict Note Patient reassessed. Patient remains awake, alert, oriented, respirations nonlabored, appears comfortable and is ambulatory with steady gait. I discussed all results, most likely diagnosis, at home recommendations, ED return precautions and advised follow-up with PCP IN 3-10 DAYS FOR RE-EVAL OF LYMPHADENOPATHY Time of [...] 02/14 2313 2321 Patient Discharge Departure Vital Signs/Condition Vital [...] entry have been reviewed. Condition Stable Clinical Impression Clinical Impression Primary Impression: Viral pharyngitis Secondary Impressions: Cervical lymphadenopathy, Suspected COVID-19 virus infection Disposition Decision Discharge )( Discharged to Home Yes )( Time 0251 )( Date 02/16/20 COVID-19 Discharge Plan CDC Criteria Met for Testing Yes Test Performed Yes, result pending Discharge/Care Plan Counseled Regarding Diagnosis, Lab results, Imaging studies, Prescriptions, Need for follow-up, When to return to ED Prescriptions motrin, augmentin Referrals Elina Rome MD (PCP/Family) Nirav Nolan 02/16/20 0517: HPI-General Illness General Initial Greet Date/Time 02/15/20 2255 Patient Discharge Departure Supervising Physician Note MidLv Saw Pt Alone I have reviewed the PA/MANAGER NURSING HOME's note and plan of care. I was available for consultation as needed at all times during the patient's visit in the emergency department. I agree with the clinical impression, plan and disposition. at 0332 at 0517 RPT #:[id number] END OF REPORT [facility] 2019-05-22 11:29:00 [facility] ([facility]) EMERGENCY PROVIDER REPORT REPORT#:[id number] REPORT STATUS: Signed DATE:05/22/19 TIME: 1128 PATIENT: LUIS EDMONDS UNIT #: [id number] ROOM/BED: AGE: 18 SEX: F PCP PHYS: Elina Rome MD SERVICE AUTHOR: Carla Toledo MD * ALL edits or amendments must be made on the electronic/computer document * HPI-Allergic Reaction Peds General Confirmed Patient Yes Patient Type Existing patient Initial Greet Date/Time 05/22/19 1121 Presentation Chief Complaint Allergic reaction Hx Obtained from Patient Onset Occurred Today, Minutes ago (30) Symptom Duration Since onset Progression since Onset Unchanged Severity: Onset Mild Severity: Current Mild Associated with Reports: Swelling, throat. Denies: Difficulty speaking, Difficulty swallowing, Rash/redness all over, Swelling, face, Swelling, lips, Swelling, tongue, Vomiting, Welts/hives. Exacerbated by Nothing Relieved by OTC antihistamine, Epi-pen Context Related History Reports: Known allergy. Denies: Anaphylaxis. Similar Sx Previous Yes Free Text HPI Notes Free Text HPI Notes 18 y/o F with PMHx of asthma presents to the ED with c/o allergic reaction, onset 30mins [employer]. Pt reports eating sour Skittles and felt sensation of throat swelling with associated neck/throat itchiness and SOB. She took 50mg of Benadryl and Epi Pen at school [employer]. Pt was seen here previously on 05/02/19 [...] Respiratory Reports: Shortness of breath. Denies: Cough, barking-type, Cough, Hemoptysis. Cardiovascular Denies: Cyanosis, Edema. GI Denies: Abdominal pain, Diarrhea, Nausea, Vomiting - bilious, Vomiting - non- bilious. Female Denies: Dysuria, Flank pain. Hematologic Denies: Bleeding, Bruising. Skin Denies: Abrasion, Laceration, Rash, Swelling. Allergy/Immun Denies: Hives, Swelling. Neurologic Denies: Numbness, Tingling. Portions of this section were scribed by Laith Harvey on 05/22/19 at 1129 Past Medical History - Peds Stated Complaint ALLERGIC REACTION TO SOUR CANDY Allergies Uncoded Allergies: MALIC ACID (Severe, TONGUE SWELLING, THROAT CLOSING 12/24/17) Home Medications Reported Medications IBUPROFEN (MOTRIN) 800 MG PO TID Review of Nursing Notes Rev avail, and agree Past Medical History: Reports: Asthma/chronic lung ds, GI issues/GERD. Additional Medical History chronic pinched nerve Additional Surgical History tonsilectomy Patient History FATHER Family History: Heart disease MOTHER Family History: Cancer Smoking status for patients 13 years old or older: Never Smoker Social History Reports: Lives with father, Good social support. Portions of this section were scribed by Laith Harvey on 05/22/19 at 1129 Physical Exam Vital Signs Vital Signs First Documented: Result Date Time Pulse Ox 100 05/22 1120 B/P 119/56 05/22 1120 B/P Mean 77 05/22 1120 O2 Delivery Room air 05/22 1120 Temp 36.7 05/22 112 Pulse 90 05/22 [...] Eyes PERRL, EOMI, No nystagmus, No scleral icterus Ears/Nose/Throat Ears/Nose/Throat Airway patent, Mucous membranes moist, Pharynx NL, No pooling of secretions Resp/Chest Respiratory/Chest Atraumatic, Breath sounds NL, Breath sounds = bilat, No respiratory distress, No grunting, No rales, No rhonchi, No wheezing, No retractions, No stridor Cardiovascular Cardiovascular Heart rate NL, Regular rhythm, Heart sounds NL Abdomen/GI Abdomen/GI Soft, Non-tender, No guarding, No rebound, No distention Skin Skin No rash, Warm, Dry, Intact Neurologic Neurologic Orientation NL for age, Speech NL for age, Gait NL for age Additional PE [...] NAD, feels much better. Time of Re-Eval 1257 )( Re-Eval Status Improved ED Course Medication(s) Ordered Medication(s) Ordered: Autonomic Drugs Sig/Victoriano Start time Last Medication Dose Route Stop Time Status Admin Albuterol Sulfate 2.5 MG Q15M 05/22 1130 DC 05/22 NEB 05/22 1201 1138 Eye, Ear, Nose And Throat (Een Sig/Victoriano Start time Last Medication Dose Route Stop Time Status Admin Ipratropium [place] 0.5 MG Q15M 05/22 1130 DC 05/22 [...] entry have been reviewed. Condition Stable Clinical Impression Clinical Impression Primary Impression: Acute allergic reaction Disposition Decision Discharge )( Discharged to Home Yes )( Time 1258 )( Date 05/22/19 Discharge/Care Plan Counseled Regarding Diagnosis, Lab results, Prescriptions, Need for follow-up, When to return to ED, cessation of eating candy Prescriptions benadryl, pepcid, prednisone, albuterol, Epi pen Prescriptions Reviewed Risks, Benefits Discharge Note I have spoken with the patient and/or caregivers. I have explained the patient's condition, diagnoses and treatment plan based on the [...] of care and follow-up instructions have been explained [...] Physician Note Scribe Statement Laith Harvey, 05/22/19 1129, scribing for and in the presence of Dr. Toledo. Signed By: Laith Harvey, 05/22/19 1129 Provider Scribed Statement I personally performed the services described in this documentation and reviewed the documentation that was dictated to the scribe(s) in my presence, and it accurately records my words and actions. Carla Toledo, 05/22/19 Portions of this section were scribed by Laith Harvey on 05/22/19 at 1129 at 2022 RPT #:[id number] END OF REPORT [facility] 2019-05-02 09:53:00 [facility] ([facility]) EMERGENCY PROVIDER REPORT REPORT#:[id number] REPORT STATUS: Signed DATE:05/02/19 TIME: 952 PATIENT: LUIS EDMONDS UNIT #: [id number] ROOM/BED: AGE: 18 SEX: F PCP PHYS: Elina Rome MD SERVICE AUTHOR: Carla Toledo MD * ALL edits or amendments must be made on the electronic/computer document * HPI-Allergic Reaction Peds General Confirmed Patient Yes Initial Greet Date/Time 05/02/[address] 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 Now c/o itchy throat. Denies nausea and [...] GI Denies: Abdominal pain, Nausea, Vomiting - non-bilious. Female Denies: Dysuria, Flank pain. Musculoskeletal Denies: Back pain, Muscle pain. Hematologic Denies: Bleeding, Bruising. Skin Denies: Laceration, Rash. Allergy/Immun Reports: Itching, Swelling. Portions of this section were scribed by Priscilla Edwards on 05/02/19 at 0957 Past Medical History - Peds Stated Complaint ALLERGIC REACTION Allergies Uncoded Allergies: MALIC ACID (Severe, TONGUE SWELLING, THROAT CLOSING 12/24/17) Home Medications Reported Medications No Known Home Medications Review of Nursing Notes Rev avail, and agree Past Medical History: Reports: Asthma/chronic lung ds, GI issues/GERD. Additional Medical History chronic pinched nerve Additional Surgical History tonsilectomy Patient History FATHER Family History: Heart disease MOTHER Family History: Cancer Smoking status for patients 13 years old or older: Never Smoker Social History Reports: Lives with [...] PE General/Const General/Const Awake, Alert, No apparent distress MS Head Head Atraumatic, Normocephalic Eyes Eyes PERRL, EOMI, No nystagmus Ears/Nose/Throat Ears/Nose/Throat Airway patent, Mucous membranes moist, Pharynx NL, No pooling of secretions Resp/Chest Respiratory/Chest Breath sounds NL, Breath sounds = bilat, No respiratory distress, No grunting, No rales, No rhonchi, No wheezing Cardiovascular Cardiovascular Heart rate NL, Regular rhythm, Heart sounds NL Abdomen/GI Abdomen/GI Soft, Non-tender, No distention Skin Skin Color NL, No rash, Warm, Dry, Intact Neurologic Neurologic Orientation NL for age, Speech NL for age, No motor deficits Additional PE MS Neck Neck Supple, No meningismus, Full range of motion Portions of this section were scribed by Priscilla Edwards on 05/02/19 at 0957 Interpretation Diagnostics Point of Care Testing Pulse Oximetry Pulse Ox % 98 On: Room air Interpretation Interpreted by nm, Pulse oximetry normal Time 0944 Portions of this section were scribed by Priscilla Edwards on 05/02/19 at 0957 Re-Evaluation MDM )( Re-Evaluation/Progress #1 Text/Dict Note Pt states her sx have resolved, parents are [...] STA 05/02 0953 DC 05/02 IV 05/02 954 1002 Hormones And Synthetic Substit Sig/Victoriano Start time Last Medication Dose Route Stop Time Status Admin Methylprednisolone 125 MG X1ED STA 05/02 0953 DC 05/02 Sodium Succinate IV 05/02 954 1002 Portions of this section were scribed by Priscilla Edwards on 05/02/19 at 0957 Patient Discharge Departure Vital Signs/Condition Vital Signs First Documented: Result Date Time Pulse Ox 98 05/02 0944 B/P 121/57 05/02 0944 B/P Mean 78 05/02 944 Temp 36.9 05/02 0944 Pulse 82 05/02 [...] of this entry have been reviewed. Clinical Impression Clinical Impression Primary Impression: Allergic reaction Disposition Decision Discharge )( Discharged to Home Yes )( Time 1129 )( Date 05/02/19 Discharge/Care Plan Counseled Regarding Diagnosis, Prescriptions, Need for follow-up, When to return to ED Prescriptions albuterol, benadryl, pepcid, prednisone, Epipen Prescriptions Reviewed Risks, Benefits Discharge Note I have spoken with the patient and/or caregivers. I have explained the patient's condition, diagnoses and treatment plan based on the [...] of care and follow-up instructions have been explained [...] for and in the presence of [Dr. Toledo]. Signed By: Priscilla Edwards, 05/02/19 0953 Provider Scribed Statement I personally performed the services described in this documentation and reviewed the documentation that was dictated to the scribe(s) in my presence, and it accurately records my words and actions. Carla Toledo, 05/02/19 Portions of this section were scribed by Priscilla Edwards on 05/02/19 at 0957 at 6571 RPT #:[id number] END OF REPORT [facility]
[2024-02-16 20:47] LABS: Urine Bacteria None Seen /HPF (<20); Urine Bilirubin NEGATIVE (Negative); Urine Blood Negative (Negative); Urine Clarity Turbid (Clear); Urine Color Light-Yellow (Yellow); Urine Crystals Unidentified Few /HPF (None Seen); Urine Culture Reflex Order NOT NEEDED; Urine Glucose NEGATIVE (Negative); Urine Ketones NEGATIVE (Negative); Urine Microscopic Reflex YN ORDER UMIC; Urine Mucus Slight /HPF (None Seen); Urine Nitrite NEGATIVE (Negative); Urine Protein TRACE (Negative); Urine RBC <5 /HPF (None Seen); Urine Urobilinogen 1+ (Normal); Urine WBC <5 /HPF (<5); Urine pH 6.5 (5.0-7.0)
--- NOTE | 2024-02-16 21:51 | RAD REPORT ---
EXAM DESCRIPTION: US - Transvaginal Study Probe - 02/16/2024 9:12 pm CLINICAL HISTORY: ABD PAIN Pelvic pain. COMPARISON: <Comparisons> FINDINGS: The uterus is normal in size, shape and echotexture. The uterus measures 7.6 x 4.6 x 4.2 c m. The endometrial stripe measures 12 mm, normal. Both ovaries are normal in size, shape and echotexture. The right ovary measures 3.1 x 2.7 x 2.2 cm. The left ovary measures 3.4 x 1.8 x 1.4 cm. No ovarian or parovarian lesions. No adnexal masses. Normal Doppler blood flow was demonstrated to both ovaries. No significant pelvic ascites. IMPRESSION: Unremarkable study.
--- NOTE | 2024-02-16 21:56 | EDPHYS ---
Physician Documentation [facility] Name: Hilaria Rogers Age: 23 yrs Sex: Female : 2000 Arrival Date: 02/16/2024 Time: 19:53 Bed 26 Private MD: ED Physician Gabriel Zambrano HPI: 02/15 20:18 This 23 yrs old Female presents to ER via Ambulatory with complaints of Abdominal Pain. kb 20:18 Pt is a 23 year old female who presents for right groin pain that started 2-3 days ago. kb Reports nausea and urinary frequency. Denies vomiting, diarrhea, fever. LMP 01/31/24. Denies vaginal bleeding. Reports clear vaginal discharge. . 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 - Infectious Disease History:: Denies. - Social history:: Smoking status: Patient denies any tobacco usage or history of. ROS: 20:17 Constitutional: As per HPI kb Exam: 20:17 Constitutional: This is a well developed, well nourished patient who is awake, alert, kb and in no acute distress. Head/Face: Normocephalic, atraumatic. ENT: Moist Mucous membranes Cardiovascular: Regular rate Respiratory: Respirations even and unlabored. No increased work of breathing. Talking in full sentences Abdomen/GI: Soft, non-tender. No distention Skin: Warm, dry with normal turgor. Normal color. MS/ Extremity: Pulses equal, no cyanosis. Neurovascular intact. Full, normal range of motion. Neuro: Awake and alert, GCS 15, oriented to person, place, time, and situation. Moves all extremities. Normal gait. 20:18 Abdomen/GI: Palpation: moderate abdominal tenderness, right groin, kb Vital Signs: 20:13 BP 124 / 86; Pulse 86; Resp 15; Temp 98.2; Pulse Ox 100% ; vc1 21:01 BP 117 / 67; Pulse 87; Resp 16; Pulse Ox 99% ; cm10 MDM: 19:58 Patient medically screened. kb 20:19 Data reviewed: vital signs, nurses notes. kb 20:21 Differential diagnosis: Ectopic , non-specific abd pain, Ovarian Torsion, kb urinary tract infection, ovarian cyst. 21:53 Test considered but Not performed: Labs: cbc, cmp considered but pt is afebrile, kb nontoxic in appearance, no n/v/d. Counseling: I had a detailed discussion with the patient and/or guardian regarding the historical points, exam findings, and any diagnostic results supporting the discharge/admit diagnosis, lab results, radiology results, the need for outpatient follow up, a family practitioner, to return to the emergency department if symptoms worsen or persist or if there are any questions or concerns that arise at home. 02/15 20:20 Order name: Test, Urine; Complete Time: 20:50 kb 02/15 20:20 Order name: Urinalysis w/ reflexes; Complete Time: 20:47 kb 02/15 20:20 Order name: US Transvaginal Study (Probe); Complete Time: 21:53 kb Administered Medications: No medications were administered Disposition Summary: 02/16/24 21:55 Discharge Ordered Notes: Location: Home kb Condition: Stable kb Diagnosis - Right groin pain kb Followup: kb - With: Emergency Department - When: As needed - Reason: Worsening of condition Followup: kb - With: Private Physician - When: 2 - 3 days - Reason: Recheck today's complaints, Continuance of care, Re-evaluation by your physician Discharge Instructions: - Discharge Summary Sheet kb - Pelvic Pain, Female, [id number] kb - Abdominal Pain, Adult, [id number] kb Forms: - Medication Reconciliation Form kb - Antibiotic Education kb - Prescription Opioid Use kb - Patient Portal Instructions kb - Leadership Thank You Letter kb Signatures: Dispatcher [employer] EDNV Mitra Matamoros, BRICK KILN BURNER-C BRICK KILN BURNER-Jeanna Ellison RN RN vc1 Corrections: (The following items were deleted from the chart) 20:19 20:17 Constitutional: This is a well developed, well nourished patient who is awake, kb alert, and in no acute distress. kb 20:20 20:18 Pt is a 23 year old female who presents for right groin pain that started 2-3 kb days ago. Reports nausea and urinary frequency. Denies vomiting, diarrhea, fever. kb 20:21 20:21 Transvaginal Study (Probe)+[email or web address].RAD.[email or web address] ordered. EDMS EDMS
--- NOTE | 2024-02-16 21:56 | ER ---
Nurse's Notes [facility] Name: Hilaria Rogers Age: 23 yrs Sex: Female : 2000 Arrival Date: 02/16/2024 Time: 19:53 Bed 26 Private MD: Diagnosis: Right groin pain Presentation: 02/15 20:13 Chief complaint: Patient states: right lower abdominal pain. Coronavirus screen: Client vc1 denies travel out of the [place] in the last 14 days. Ebola Screen: Patient negative for fever greater than or equal to 101.5 degrees Fahrenheit, and additional compatible Ebola Virus Disease symptoms Patient denies exposure to infectious person. Patient denies travel to an Ebola-affected area in the 21 days before illness onset. No symptoms or risks identified at this time. Initial Sepsis Screen: Does the patient meet any 2 criteria? No. Patient's initial sepsis screen is negative. Does the patient have a suspected source of infection? No. Patient's initial sepsis screen is negative. Risk Assessment: Do you want to hurt yourself or someone else? Patient reports no desire to harm self or others. Onset of symptoms was February 13, 2024. 20:13 Method Of Arrival: Ambulatory vc1 20:13 Acuity: CONCHITA 3 vc1 Triage Assessment: 21:00 General: Appears in no apparent distress. comfortable, Behavior is calm, cooperative. cm10 Pain: Complains of pain in right lower quadrant Pain currently is 7 out of 10 on a pain scale. Neuro: No deficits noted. Level of Consciousness is awake, alert, obeys commands, Oriented to person, place, time, situation, Appropriate for age. GI: Reports lower abdominal pain, nausea. INTEGRATED MARKETING INTERN: 22:03 Not cm10 Historical: - Allergies: 20:14 sour candy; vc1 - PMHx: 20:14 None; vc1 - PSHx: 20:14 Adenoid excision; Appendectomy; Tonsillectomy; vc1 - Immunization history:: Client reports having NOT received the Covid vaccine. - Infectious Disease History:: Denies. - Social history:: Smoking status: Patient denies any tobacco usage or history of. Screenin:14 [facility] ED Fall Risk Assessment (Adult) History of falling in the last 3 months, vc1 including since admission No falls in past 3 months (0 pts) Confusion or Disorientation No (0 pts) Intoxicated or Sedated No (0 pts) Impaired Gait No (0 pts) Mobility Assist Device Used No (0 pt) Altered Elimination No (0 pt) Score/Fall Risk Level 0 - 2 = Low Risk Oriented to surroundings, Maintained a safe environment, Educated pt \T\ family on fall prevention, incl call for assistance when getting out of bed. Abuse screen: Denies threats or abuse. Nutritional screening: No deficits noted. Tuberculosis screening: No symptoms or risk factors identified. Assessment: 22:03 GI: Not auscultated. cm10 Vital Signs: 20:13 BP 124 / 86; Pulse 86; Resp 15; Temp 98.2; Pulse Ox 100% ; vc1 21:01 BP 117 / 67; Pulse 87; Resp 16; Pulse Ox 99% ; cm10 ED Course: 19:56 Patient arrived in ED. jj6 19:58 Mitra Matamoros FNP-C [facility] kb 19:58 Gabriel Zambrano MD is Attending Physician. kb 20:14 Triage completed. vc1 20:59 Jeanie Tolentino, RN is Primary Nurse. cm10 21:00 Arm band placed on Patient placed in an exam room, on a stretcher. cm10 21:01 Patient has correct armband on for positive identification. Placed in gown. Bed in low cm10 position. Call light in reach. Provided Education on: ER process and procedures.. Pulse ox on. NIBP on. Pillow given. 21:03 Patient taken to ultrasound. via wheelchair. cm10 21:14 US Transvaginal Study (Probe) In Process Unspecified. EDMS 21:16 Patient moved back from ultrasound. cm10 22:02 No provider procedures requiring assistance completed. Patient did not have IV access cm10 during this emergency room visit. Administered Medications: No medications were administered Medication: 21:01 VIS not applicable for this client. cm10 Outcome: 21:55 Discharge ordered by . kb 22:02 Discharged to home ambulatory, with family, cm10 22:02 Condition: good 22:02 Discharge instructions given to patient, Instructed on discharge instructions, follow up and referral plans. Demonstrated understanding of instructions, follow-up care, 22:03 Patient left the ED. cm10 Signatures: Dispatcher [employer] EDGA Mitra Matamoros FNP-C FNP-Iva Sharla Sidhu [id number] Jeanna Mccoy RN RN vc1 Jeanie Tolentino RN RN cm10 Corrections: (The following items were deleted from the chart) 21:03 21:00 Pain: Complains of pain in right lower quadrant cm10 cm10
[2024-02-17 05:22] VITALS: TEMP 98.2
[2024-02-17 05:23] VITALS: BP 117/67; O2SAT 99
== END 2024-02-16 22:03 | disposition home or self-care (01) ==
LOC: ER 19:53
DX: R10.31 Right lower quadrant pain (principal)
CPT/HCPCS: 76830; 81001; 81025; 99284

== ENCOUNTER 2024-05-07 00:52 | Emergency (ER) | payer SELFPAY ==
--- OUTSIDE RECORDS SUMMARY | 2024-05-07 00:57 | XMS REPORT | Continuity of Care Document ---
Author Name Unknown Address [address] [facility] [address] [place] [address] [facility] thconnect Address [address] [facility] [place] [address] Care Team Providers Care Supervisor Core Drilling Name Role Phone DYLAN FREDERICK Car Primary Care Physician Unavailab Brittnee Acosta Attending Clinician UnavailMADHAVI Garnett Attending Clinician Unavailable MERT MILES Attending Clinician Unavailable MERT MILES Attending Clinician Unavailable PHILL ROMAN Attending Clinician UnavailPhill Garnett MD Attending Clinician [phone] Luis Burciaga Attending Clinician UnavailSUZY Malcolm Attending Clinician Unavailable Suzy Uriostegui MD Attending Clinician [phone] Effie Marquez Attending Clinician Unava ANTONIA Corbett Attending Clinician Unavailable Antonia Pike MD Attending Clinician [phone] Ghanshyam Chavez Attending Clinician Tierney vilma Nurse, Osvaldo Evangelista Attending Clinician Unavaila Frederick Herrera MD Attending Clinician [phone] FREDERICK RICHARDSON Attending Clinician Unavailable AR RICHARDSON Attending Clinician Unavailable Ar Richardson MD Attending Clinician [phone] Kishor Bishop Attending Clinician Unavailable ELINA ROME Attending Clinician Unavailable Madhavi Roman PA-C Attending Clinician [phone] Dottie Chavez Attending Clinician UnavailNathalia Allen Attending Clinician [phone] Ny Khan MD Attending Clinician [phone] Olivier WEAVER TIRE CORD, Aneta Esparza Attending Clinician [phone] Unknown, Attending Attending Clinician Unavailab miah LOPEZ, ATTENDING Attending Clinician Unavailab Pearl Petersen Attending Clinician Unavailjas Noble RN, Tashia Rae Attending Clinician Unavailab miah Last WEAVER TIRE CORD, Lily Hummel Attending Clinician [phone] Lydia Bojorquez MD Attending Clinician [phone] Doctor Unassigned, [place] Attending Clinician U robbin HEREDIA, [place] Attending Clinician + [phone] LIBERTY CAMP Attending Clinician Unavailable Wiliam SENIOR MEDIA BUYER, Antonia Attending Clinician + [phone] Dagoberto SENIOR MEDIA BUYER, Kassidy Cagle Attending Clinician [phone] Rajan PICKERING, Elina Pandey Attending Clinici an KASSIDY ARENAS Attending Clinician Unavailab REJI Bose Attending Clinician Unavailable Ivet PICKERING, Aiden Conde Attending Clinician [phone] SOSA ADAMES Attending Clinician Unavailable Zacarias PICKERING, Sosa Attending Clinician [phone] Santiago COLE, Sandra Hilton Attending Clinician Unavaila Ashley Schafer DO Attending Clinician + [phone] Mike Heard MD Attending Clinician [phone] Shahnaz MIRELES, Sujata Attending Clinician SUZY URIOSTEGUI Admitting Clinician Unavailable [place] KHAN Admitting Clinician Unavailable Brittnee Ramirez Admitting Clinician UnavailElina Chavez Admitting Clinician Unavail able PHILL ROMAN Admitting Clinician UnavailPhill Garnett MD Admitting Clinician [phone] Luis Burciaga Admitting Clinician UnavailSuzy Malcolm MD Admitting Clinician [phone] Emily Artis Admitting Clinician UnavailANTONIA Samaniego Admitting Clinician Unavailable Effie Solitario Admitting Clinician Unaalondra ilisha Physician, No Primary or Family Admitting Clinic lizzeht Unavailable Dottie Chavez Admitting Clinician UnavailNy Frederick MD Admitting Clinician [phone] Pearl Chavez Admitting Clinician UnavailSOSA Bae Admitting Clinician Unavailable Payers Payer Name Policy Type Policy Number Effective Date Expirati on Date Source [facility] [id number] 2023 00:00:00 [facility] [id number] 00:00:00 [facility] [id number] 2023 00:00:00 Problems Condition Name Condition Details Condition Category Status Onset Date Resolution Date Last Treatment Date Treating Clinician Comments Source Acute appendicit is Acute appendicit is Disease Active 2022-07 0-15 00:00: 00 [facility] Anxiety Anxiety Disease Active [facility] Depression Depression Disease Active U n[facility] Allergies, Adverse Reactions, Alerts Allergy Name Allergy Type Status Severity Reaction(s) Onset Date Inactive Date Treating Clinician Comments Source MARCUS ACID- THROAT SWELLING DA Active SV 08-03 00:00: 00 [facility] No Known Allergie s DA Active U 11-23 00:00: 00 [facility] No Known Allergie s DA Active U 11-23 00:00: 00 [facility] MALIC ACID DA Active SV TONGUE SWELLING, THROAT CLOSING 12-24 00:00: 00 [facility] Malic Acid Drug Allergy Active Swelling 12-24 00:00: 00 [facility] MALIC ACID DRUG INGREDI Active High Swelling 12-24 00:00: 00 [facility] SOUR MOREAU DRUG INGREDI Active Anaphylaxis 30 00:00: 00 [facility] Sour Moreau Propensi ty to adverse reaction s Active Anaphylaxis 11-15 00:00: 00 Sour flavoring on all candy [facility] Social History Social Habit Start Date Stop Date Quantity Comments Source ASSERTION 2022-02-27 00:00:00 [facility] Sexual orientation U [facility] Alcohol intake 2023-05-03 00:00:00 2023-05-03 00:00:00 Ex-drinker (finding) [facility] Exposure to SARS-CoV-2 (event) 2022-10-07 00:00:00 2022-10-17 15:17:00 Not sure [facility] History of Social function 2022-02-25 00:00:2022-02-25 00:00:00 [facility] Tobacco use and exposure 2022-02-25 00:00:00 2022-02-25 00:00:00 Smokeless tobacco non-user [facility] Sex Assigned At 2002 00:00:00 2000 00:00:00 [facility] Smoking Status Start Date Stop Date Source Never smoked tobacco [facility] Medications Ordered Medication Name Filled Medication Name Start Date Stop Date Current Medication? Ordering Clinician Indication Dosage Frequency Signature (SIG) Comments Components Source ibuprofen (IBU) tablet 400 mg 2022-07 15:00: 00 Yes 400mg 400 mg, Oral, Q8H, First dose on 05/03/23 at 1000, Until Discontinu ed, Routine [facility] SERTraline 25 mg tablet 2022-07 12:24: 34 Yes 25mg Take 1 tablet by mouth in the morning. [facility] ketorolac (TORADOL) injection 30 mg 2022-07 04:00: 00 05-03 03:38 :00 No 30mg 30 mg, Slow IV Push, ONCE, 1 dose, On 05/02/23 at 2300, Routine [facility] ibuprofen 400 mg tablet 2022-07 00:00: 00 05-11 04:59 :00 No [id number] 400mg Take 1 tablet by mouth every 8 (eight) hours as needed for Pain (scale 4-6) for up to 7 days. [facility] traMADoL 50 mg tablet 2022-07 00:00: 00 05-11 04:59 :00 No [id number] 50mg Take 1 tablet by mouth every 6 (six) hours as needed for Pain (scale 7-10) for up to 7 days. Indication s: acute pain [facility] enoxaparin (LOVENOX) injection 40 mg 2022-07 22:00: 00 Yes 40mg 40 mg, Subcutaneo us, DAILY, First dose on 05/02/23 at 1700, Until Discontinu ed, Routine [facility] lactated ringers IV infusion 1,000 mL 2022-07 17:15: 00 Yes 1000mL at 100 mL/hr, 1,000 mL, IV Infusion, CONTINUOUS , Starting on Wed05/02/23 at 1215, Until Discontinu ed, Routine, PACU [facility] HYDROcodone -acetaminop hen (NORCO 5) 5-325 mg tablet 1 tablet 2022-07 17:15: 00 05-02 17:48 :00 No 1{tbl} 1 tablet, Oral, ONCE, 1 dose, On Wed05/02/23 at 1215, Routine, PACU [facility] FENTanyl PF (SUBLIMAZE (PF)) injection 25 mcg 2022-07 17:13: 49 05-02 18:23 :47 No 25ug 25 mcg, Slow IV Push, Q5MIN PRN, 4 doses, Starting on Wed05/02/23 at 1213, Until [place] 05/02/23 at 1323, Routine, Pain (scale 4-6), PACU [facility] HYDROcodone -acetaminop hen (NORCO 5) 5-325 mg tablet 1 tablet 2022-07 16:58: 20 Yes 1{tbl} 1 tablet, Oral, Q4HPRN, Starting on Wed05/02/23 at 1158, Until Discontinu ed, Routine, Pain (scale 4-6) [facility] sodium chloride 0.9 % irrigation solution 2022-07 16:49: 00 05-02 17:12 :46 No PRN, Starting on Wed05/02/23 at 1149, Until Wed05/02/23 at 1212, Intra-op [facility] bupivacaine (preserv free) (SENSORCAIN E MPF) 0.25 % (2.5 mg/mL) injection 2022-07 16:35: 00 05-02 17:12 :46 No PRN, Starting on Wed05/02/23 at 1135, Until Wed05/02/23 at 1212, Routine, Intra-op [facility] NaCl 0.9% (NS) IV infusion 1,000 mL 2022-07 09:30: 00 05-02 16:57 :40 No 1000mL at 125 mL/hr, IV Infusion, CONTINUOUS , Starting on Wed05/02/23 at 0430, Until Wed05/02/23 at 1157, Routine [facility] ondansetron (ZOFRAN (PF)) injection 4 mg 2022-07 09:23: 00 Yes 4mg 4 mg, Slow IV Push, Q4HPRN, Starting on Wed05/02/23 at 0423, Until Discontinu ed, Routine, Nausea and Vomiting (N/V) [facility] FENTanyl PF (SUBLIMAZE (PF)) injection 12.5 mcg 2022-07 09:22: 41 05-02 16:58 :38 No 12.5ug 12.5 mcg, Slow IV Push, Q4HPRN, Starting on Wed05/02/23 at 0422, Until 05/02/23 at 1158, Routine, Pain (scale 7-10) [facility] acetaminoph en (TYLENOL) tablet 650 mg 2022-07 09:22: 29 Yes 650mg 650 mg, Oral, Q6HPRN, Starting on Wed05/02/23 at 0422, Until Discontinu ed, Routine, Pain (scale 1-3) [facility] FLUTICASONE PROPIONATE 50 mcg/actuati on nasal spray 2020-07 00:00: 00 05-02 00:00 :00 No [id number] SPRAY 1 SPRAY INTO EACH NOSTRIL EVERY DAY [facility] EPINEPHrine 0.3 mg/0.3 mL injection 2019-07 00:00: 00 Yes [id number] INJECT 0.3 ML BY INTRAMUSCU LAR ROUTE ONCE NOW FOR 1 DOSE. [facility] Immunizations Ordered Immunization Name Filled Immunization Name Date Status Comments Source Meningococcal Polysaccharide (groups A, C, Y and W-135) conjugate vaccine (MCV4P) 2019-02-23 00:00:00 Completed [facility] Meningococcal Polysaccharide (groups A, C, Y and W-135) conjugate vaccine (MCV4P) 2019-02-23 00:00:00 Completed [facility] DTP 2005-01-21 00:00:00 Completed [facility] HIB 3 Dose Schedule 2005-01-21 00:00:00 Completed [facility] HEPATITIS A 2005-01-21 00:00:00 Completed [facility] Pneumococcal 7 Conjugate, PCV7 (Prevnar7) 2005-01-21 00:00:00 Completed [facility] DTP 2005-01-21 00:00:00 Completed [facility] HIB 3 Dose Schedule 2005-01-21 00:00:00 Completed [facility] HEPATITIS A 2005-01-21 00:00:00 Completed [facility] Pneumococcal 7 Conjugate, PCV7 (Prevnar7) 2005-01-21 00:00:00 Completed [facility] MMR 2003-12-25 00:00:00 Completed [facility] Polio (IPV/OPV) 2003-12-25 00:00:00 Completed [facility] Pneumococcal 7 Conjugate, PCV7 (Prevnar7) 2003-12-25 00:00:00 Completed [facility] MMR 2003-12-25 00:00:00 Completed [facility] Polio (IPV/OPV) 2003-12-25 00:00:00 Completed [facility] Pneumococcal 7 Conjugate, PCV7 (Prevnar7) 2003-12-25 00:00:00 Completed [facility] DTP 2003-06-19 00:00:00 Completed [facility] HIB 3 Dose Schedule 2003-06-19 00:00:00 Completed [facility] Hep B, Adol or Pedi Dosage 2003-06-19 00:00:00 Completed [facility] Polio (IPV/OPV) 2003-06-19 00:00:00 Completed [facility] DTP 2003-06-19 00:00:00 Completed [facility] HIB 3 Dose Schedule 2003-06-19 00:00:00 Completed [facility] Hep B, Adol or Pedi Dosage 2003-06-19 00:00:00 Completed [facility] Polio (IPV/OPV) 2003-06-19 00:00:00 Completed [facility] Hep B, Adol or Pedi Dosage 2002 00:00:00 Completed [facility] Hep B, Adol or Pedi Dosage 2002 00:00:00 Completed [facility] DTP Unknown Completed [facility] HIB 3 Dose Schedule Unknown Completed [facility] HEPATITIS A Unknown Completed [facility] Hep B, Adol or Pedi Dosage Unknown Completed [facility] MMR Unknown Completed [facility] Polio (IPV/OPV) Unknown Completed [facility] Meningococcal Polysaccharide (groups A, C, Y and W-135) conjugate vaccine (MCV4P) Unknown Completed [facility] Pneumococcal 7 Conjugate, PCV7 (Prevnar7) Unknown Completed [facility] DTP Unknown Completed [facility] HIB 3 Dose Schedule Unknown Completed [facility] HEPATITIS A Unknown Completed [facility] Hep B, Adol or Pedi Dosage Unknown Completed [facility] MMR Unknown Completed [facility] Polio (IPV/OPV) Unknown Completed [facility] Meningococcal Polysaccharide (groups A, C, Y and W-135) conjugate vaccine (MCV4P) Unknown Completed [facility] Pneumococcal 7 Conjugate, PCV7 (Prevnar7) Unknown Completed [facility] Vital Signs Vital Name Observation Time Observation Value Comments S ource Systolic blood pressure 2023-05-03 12:17:00 101 mm[Hg] [facility] Diastolic blood pressure 2023-05-03 12:17:00 59 mm[Hg] [facility] Heart rate 2023-05-03 12:17:00 68 /min [facility] Body temperature 2023-05-03 12:17:00 36.22 [facility] Respiratory rate 2023-05-03 12:17:00 18 /min [facility] Oxygen saturation in Arterial blood by Pulse oximetry 2023-05-03 12:17:00 96 /min [facility] Body weight 2023-05-03 08:19:[address] [facility] BMI 2023-05-03 08:19:00 28.28 kg/m2 [facility] Body height 2023-05-02 08:25:[address] [facility] Systolic blood pressure 2023-05-02 18:25:00 97 mm[Hg] [facility] Diastolic blood pressure 2023-05-02 18:25:00 60 mm[Hg] [facility] Heart rate 2023-05-02 18:25:00 59 /min [facility] Body temperature 2023-05-02 18:25:00 36.11 [facility] Respiratory rate 2023-05-02 18:25:00 18 /min [facility] Oxygen saturation in Arterial blood by Pulse oximetry 2023-05-02 18:25:00 100 /min [facility] Body height 2023-05-02 08:25:[address] [facility] Body weight 2023-05-02 08:25:[address] [facility] BMI 2023-05-02 08:25:00 28.28 kg/m2 [facility] Systolic blood pressure 2022-10-17 20:18:00 99 mm[Hg] [facility] Diastolic blood pressure 2022-10-17 20:18:00 63 mm[Hg] [facility] Body temperature 2022-10-17 20:18:00 36.78 [facility] Respiratory rate 2022-10-17 20:18:00 16 /min [facility] Heart rate 2022-10-17 19:56:00 92 /min [facility] Body height 2022-10-17 19:56:[address] [facility] Body weight 2022-10-17 19:56:[address] [facility] BMI 2022-10-17 19:56:00 28.90 kg/m2 [facility] Oxygen saturation in Arterial blood by Pulse oximetry 2022-10-17 19:56:00 99 /min [facility] Procedures Procedure Date / Time Performed Performing Clinician Source CBC WITH DIFF 2023-05-03 11:31:[address] [facility] CBC WITH DIFF 2023-05-03 11:31:[address] [facility] LAPAROSCOPIC APPENDECTOMY 2023-05-02 15:50:00 Miles, [facility] LAPAROSCOPIC APPENDECTOMY 2023-05-02 15:50:00 Miles, [facility] POCT TEST 2023-05-02 15:31:00 Miles, [facility] POCT TEST 2023-05-02 15:31:00 Miles, [facility] MAGNESIUM 2023-05-02 10:15:00 Phill Roman [facility] HEPATIC FUNCTION PANEL (70180) (ALB,T.PRO,BILI T,BU/BC,ALT,AST,ALK PHOS) 2023-05-02 10:15:00 Phill Roman [facility] BASIC METABOLIC PANEL (NA, K, CL, CO2, GLUCOSE, BUN, CREATININE, CA) 2023-05-02 10:15:00 Phill Roman [facility] CBC WITH DIFF 2023-05-02 10:15:00 [facility] 2023-05-02 10:15:00 Phill Roman [facility] HEPATIC FUNCTION PANEL (24469) (ALB,T.PRO,BILI T,BU/BC,ALT,AST,ALK PHOS) 2023-05-02 10:15:00 Phill Roman [facility] BASIC METABOLIC PANEL (NA, K, CL, CO2, GLUCOSE, BUN, CREATININE, CA) 2023-05-02 10:15:00 Phill Roman [facility] CBC WITH DIFF 2023-05-02 10:15:00 [id number] 2022-10-31 00:00:00 [facility] [id number] 2022-10-30 00:00:00 [facility] [id number] 2021-03-26 00:00:00 [facility] [id number] 2021-03-26 00:00:00 [facility] Encounters Start Date/Time End Date/Time Encounter Type Admission Type Attending Clinicians Care Facility Care Department Encounter ID Source 2022-10-17 17:56:[address] [facility] [id number] [facility] 2021-05-19 04:10:[address] [facility] [id number] [facility] 2021-05-19 04:10:48 Emergency [facility] [id number] [facility] 2021-05-18 12:59:52 Emergency [facility] [id number] [facility] 2021-05-18 03:01:47 Emergency [facility] [id number] [facility] 2020-11-23 00:57:29 Inpatient Brittnee Ramirez [facility] HCACL [id number] [facility] 2020-10-05 01:43:54 Inpatient [facility]L HCACL [id number] [facility] 2020-08-22 20:18:00 Inpatient HC[facility]L KAELA [id number] [facility] 2020-02-15 22:49:00 Inpatient [facility] KAELA [id number] [facility] 2023-08-23 13:00:00 2023-08-23 13:00:00 Outpatient MADHAVI MCNAIR [facility] [id number] [facility] 2023-05-24 13:00:00 2023-05-24 13:00:00 Outpatient MERT HOUSE [place] [facility] [id number] [facility] 2023-05-02 03:19:00 2023-05-03 12:20:00 Outpatient U PHILL ROMAN [facility] OLAYINK[facility] [id number] [facility] 2023-05-02 03:19:00 2023-05-03 12:20:00 Hospital Encounter Phill Roman [facility] [id number] 350.1.13.10 4.2.7.2.686 [id number] [facility] 2023-05-02 11:24:00 2023-05-02 13:33:00 Surgery MilesMert [facility] 1..840.114 350.1.13.10 4.2.7.2.686 [id number] [facility] 2022-10-30 19:17:00 2022-11-02 18:53:00 Inpatient EL Luis Burciaga [facility]AC[facility] OBPP [id number] [facility] 2022-10-17 14:59:00 2022-10-17 17:00:00 Outpatient X GIOVANA [facility] [id number] [facility] 2022-10-17 14:59:00 2022-10-17 17:00:00 Emergency AdSuzy diaz [facility] 1..840.114 350.1.13.10 4.2.7.2.686 [id number] [facility] 2022-09-26 22:39:00 2022-09-27 17:00:00 Inpatient EM Luis Burciaga [facility]ACL OBANTE [id number] [facility] 2022-09-07 23:59:00 2022-09-14 10:45:00 Inpatient EM Luis Burciaga [facility] OBANTE [id number] [facility] 2022-08-03 15:04:00 2022-08-03 16:59:00 Emergency EM Effie Ramsay [facility] OLGA [id number] [facility] 2022-03-20 14:10:00 2022-03-20 14:10:00 Outpatient R ANTONIA PIKE [facility] [id number] [facility] 2022-03-20 00:00:00 2022-03-20 00:00:00 Telephone Antonia Pike [facility] 1..840.114 350.1.13.10 4.2.7.2.686 [id number] [facility] 2022-03-16 14:10:00 2022-03-16 14:10:00 Outpatient R ANTONIA PIKE [facility] [id number] [facility] 2022-03-13 13:30:00 2022-03-13 13:30:00 Outpatient R ANTONIA PIKE [facility] [id number] [facility] 2022-03-13 11:10:00 2022-03-13 11:10:00 Outpatient R ANTONIA PIKE [facility] [id number] [facility] 2022-03-06 15:06:00 2022-03-06 16:12:00 Emergency EM Romeo Chavezo HCACL AERS [id number] [facility] 2022-03-04 00:00:00 2022-03-04 00:00:00 Telephone Antonia Pike [facility] 1.840.114 350.1.13.10 4.2.7.2.686 [id number] [facility] 2022-03-03 00:00:00 2022-03-03 00:00:00 Telephone Antonia Pike [facility] 1.840.114 350.1.13.10 4.2.7.2.686 [id number] [facility] 2022-03-02 17:43:24 2022-03-02 23:59:00 Outpatient R PIKEANTONIA ASHER [facility] [id number] [facility] 2022-03-02 17:43:24 2022-03-02 23:59:00 Outpatient R PIKEANTONIA ASHER [facility] [id number] [facility] 2022-03-02 17:30:00 2022-03-02 23:59:00 Hospital Encounter Antonia Pike [facility] 1.840.114 350.1.13.10 4.2.7.2.686 [id number] [facility] 2022-02-26 14:50:00 2022-02-26 15:10:00 Nurse Visit Nurse, Frederick Miller [facility] 1.840.114 350.1.13.10 4.2.7.2.686 [id number] [facility] 2022-02-26 14:50:00 2022-02-26 14:50:00 Outpatient FREDERICK CORRAL [facility] [id number] [facility] 2022-02-25 14:45:00 2022-02-25 23:59:00 Outpatient ANTONIA CAPPS [facility] [id number] [facility] 2022-02-25 14:45:00 2022-02-25 23:59:00 Hospital Encounter Antonia Pike [facility] 1.840.114 350.1.13.10 4.2.7.2.686 [id number] [facility] 2022-02-25 13:50:00 2022-02-25 15:29:57 Outpatient R ANTONIA PIKE [facility] [id number] [facility] 2022-02-25 13:50:00 2022-02-25 15:29:57 Office Visit Antonia Pike [facility] 1..840.114 350.1.13.10 4.2.7.2.686 [id number] [facility] 2022-02-23 15:50:00 2022-02-23 15:50:00 Outpatient R ANTONIA PIKE [facility] [id number] [facility] 2022-02-12 21:31:00 2022-02-12 22:34:00 Emergency X AR RICHARDSON [facility] [id number] [facility] 2022-02-12 21:31:00 2022-02-12 22:34:00 Emergency Ar Richardson [facility] 1.2.840.114 350.1.13.10 4.2.7.2.686 [id number] [facility] 2021-11-11 00:16:00 2021-11-11 00:55:00 Emergency EM Kishor Bishop HCAC[facility] AERS [id number] [facility] 2021-11-04 15:30:00 2021-11-04 15:30:00 Outpatient ELINA FORMAN [facility] [id number] [facility] 2021-08-08 22:06:00 2021-08-08 22:30:00 Emergency EM DarshancandySam santoyochiara [facility]ACL AERS [id number] [facility] 2021-06-13 00:00:00 2021-06-13 00:00:00 Refill Madhavi Roman [facility] 1.2.840.114 350.1.13.10 4.2.7.2.686 [id number] [facility] 2021-05-12 13:41:54 2021-05-12 14:13:40 Office Visit Madhavi Roman [facility] 1.2.840.114 350.1.13.10 4.2.7.2.686 [id number] [facility] 2021-05-12 13:30:00 2021-05-12 13:30:00 Outpatient MADHAVI MCNAIR [facility] [id number] [facility] 2021-03-25 14:56:00 2021-03-28 15:32:00 Inpatient ARIC Sevillaashleigh Luis [facility]ACL OBPP [id number] [facility] 2021-03-12 21:07:00 2021-03-13 01:05:00 Emergency EM Effie Solitario [facility] OLGA [id number] [facility] 2021-03-01 05:33:00 2021-03-01 09:00:00 Emergency EM Luis Burciaga [facility] OLGA [id number] [facility] 2021-02-17 15:17:00 2021-02-17 16:47:00 Emergency EM Effie Solitario [facility] [id number] 82 [facility] 2021-02-12 19:14:00 2021-02-12 22:29:00 Emergency EM Effie Solitario [facility] [id number] 18 [facility] 2021-01-29 02:30:00 2021-01-29 03:50:00 Emergency EM Dottie Chavez [facility] [id number] 33 [facility] 2021-01-13 01:18:00 2021-01-13 02:30:00 [facility] 1.2.840.114 350.1.13.10 4.2.7.2.686 [id number] 2021-01-13 01:18:00 2021-01-13 02:30:00 [facility] 1.2.840.114 350.1.13.10 4.2.7.2.686 [id number] [facility] 2021-01-11 17:51:24 2021-01-11 18:25:45 Urgent Care Aneta Aguayo [facility] 1.840.114 350.1.13.10 4.2.7.2.686 [id number] 2021-01-11 17:51:24 2021-01-11 18:25:45 Urgent Care Aneta Aguayo, Bonifacio Armijo [facility] 1.2840.114 350.1.13.10 4.2.7.2.686 [id number] 370 [id number] [facility] 2021-01-11 18:00:00 2021-01-11 18:00:00 Outpatient R UNKNOWN, ATTENDING [facility] [id number] [facility] 2020-12-25 15:08:00 2020-12-25 18:26:00 Emergency EM Pearl Chavez [facility] [id number] 03 [facility] 2020-11-23 00:02:00 2020-11-23 02:58:00 Emergency EM Brittnee Ramirez [facility] [id number] 52 [facility] 2020-11-01 00:00:00 2020-11-01 00:00:00 Letter (Out) [facility] 1.2.840.114 350.1.13.10 4.2.7.2.686 [id number] 2020-11-01 00:00:00 2020-11-01 00:00:00 Letter (Out) [facility] 1.2.840.114 350.1.13.10 4.2.7.2.686 [id number] 019 [id number] [facility] 2020-10-30 22:11:00 2020-10-31 00:46:00 Emergency Lily Last [facility] 1.2.840.114 350.1.13.10 4.2.7.2.686 [id number] 2020-10-30 22:11:00 2020-10-31 00:46:00 Emergency Lily Last [facility] 1.2.840.114 350.1.13.10 4.2.7.2.686 [id number] [facility] 2020-10-26 18:33:25 2020-10-26 19:03:11 Urgent Care Aneta Aguayo [facility] 1.2.840.114 350.1.13.10 4.2.7.2.686 [id number] 2020-10-26 18:33:25 2020-10-26 19:03:11 Urgent Care Aneta Aguayo Unknown, Attending [facility] 1.2.840.114 350.1.13.10 4.2.7.2.686 [id number] [facility] 2020-10-26 19:00:00 2020-10-26 19:00:00 Outpatient R UNKNOWN, ATTENDING [facility] [id number] [facility] 2020-09-18 23:47:00 2020-09-19 01:47:00 Emergency [facility] 1.2.840.114 350.1.13.10 4.2.7.2.686 [id number] 084 [id number] 2020-09-18 23:47:00 2020-09-19 01:47:00 Emergency [facility] 1.2.840.114 350.1.13.10 4.2.7.2.686 [id number] [id number] [facility] 2020-09-18 00:00:00 2020-09-18 00:00:00 Orders Only Doctor Unassigned, [facility] 1.2.840.114 350.1.13.10 4.2.7.2.686 [id number] [id number] 2020-09-18 00:00:00 2020-09-18 00:00:00 Orders Only Doctor Unassigned, [facility] 1.2.840.114 350.1.13.10 4.2.7.2.686 [id number] [id number] [facility] 2020-08-22 15:52:31 2020-08-22 16:12:31 Office Visit Madhavi Roman [facility] 1.2.840.114 350.1.13.10 4.2.7.2.686 [id number] 2020-08-22 15:52:31 2020-08-22 16:12:31 Office Visit Madhavi Roman [facility] 1.2.840.114 350.1.13.10 4.2.7.2.686 [id number] [facility] 2020-08-22 16:00:00 2020-08-22 16:00:00 Outpatient MADHAVI MCNAIR [facility] [id number] [facility] 2020-08-22 13:40:00 2020-08-22 13:40:00 Outpatient MADHAVI MCNAIR [facility] [id number] [facility] 2020-08-13 00:00:00 2020-08-13 00:00:00 Telephone DestinyLiberty colindres [facility] 1.2.840.114 350.1.13.10 4.2.7.2.686 [id number] 225 [id number] [facility] 2020-08-09 00:00:00 2020-08-09 00:00:00 Telephone DestinyLiberty [facility] 1.2.840.114 350.1.13.10 4.2.7.2.686 [id number] 225 [id number] [facility] 2020-08-09 00:00:00 2020-08-09 00:00:00 Telephone DestinyLiberty colind[facility] 1.2.840.114 350.1.13.10 4.2.7.2.686 [id number] [facility] 2020-08-08 14:46:51 2020-08-08 16:51:17 Office Visit [place] [facility] 1.2.840.114 350.1.13.10 4.2.7.2.686 [id number] [facility] 2020-08-08 15:00:00 2020-08-08 15:00:00 Outpatient LIBERTY TOMLINSON [facility] [id number] [facility] 2020-07-03 00:00:00 2020-07-03 00:00:00 Orders Only Doctor Unassigned, [facility] 1.840.114 350.1.13.10 4.2.7.2.686 [id number] [facility] 2020-06-17 13:35:31 2020-06-17 14:15:17 Office Visit Antonia Swain [facility] 1..114 350.1.13.10 4.2.7.2.686 [id number] [facility] 2020-06-17 13:40:00 2020-06-17 13:40:00 Outpatient ELINA FORMAN [facility] [id number] [facility] 2020-05-18 00:00:00 2020-05-18 00:00:00 Kassidy Morris [facility] 1..114 350.1.13.10 4.2.7.2.686 [id number] 225 [id number] [facility] 2020-05-14 00:00:00 2020-05-14 00:00:00 Telephone Elina Rome [facility] 1..114 350.1.13.10 4.2.7.2.686 [id number] 225 [id number] [facility] 2020-05-06 00:00:00 2020-05-06 00:00:00 Telephone Elina Rome [facility] 1.840.114 350.1.13.10 4.2.7.2.686 [id number] 225 [id number] [facility] 2020-04-26 15:36:43 2020-04-26 15:56:43 Office Visit Kassidy Arenas [facility] 1.20.114 350.1.13.10 4.2.7.2.686 [id number] [facility] 2020-04-26 15:40:00 2020-04-26 15:40:00 Outpatient R KASSIDY ARENAS [facility] [id number] [facility] 2020-04-15 00:00:00 2020-04-15 00:00:00 Refill [place] [facility] 1.0114 350.1.13.10 4.2.7.2.686 [id number] [facility] 2020-01-03 14:40:00 2020-01-03 14:40:00 Outpatient REJI EVANS [facility] [id number] [facility] 2019-10-27 00:00:00 2019-10-27 00:00:00 Telephone Aiden Cooney [facility] 1..114 350.1.13.10 4.2.7.2.686 [id number] [facility] 2019-10-18 23:49:28 2019-10-19 02:20:00 Emergency X SOSA ADAMES [facility] ERT [id number] [facility] 2019-10-18 23:49:28 2019-10-19 02:20:00 Emergency Sosa Adames [facility] 1.0.114 350.1.13.10 4.2.7.2.686 [id number] [facility] 2019-10-18 00:00:00 2019-10-18 00:00:00 Nurse Triage Sandra Henderson [facility] 1.840.114 350.1.13.10 4.2.7.2.686 [id number] [id number] [facility] 2019-10-09 00:00:00 2019-10-09 00:00:00 Telephone IvetNareshrichie Armijo [facility] 1.2.840.114 350.1.13.10 4.2.7.2.686 [id number] 225 [id number] [facility] 2019-09-21 13:27:07 2019-09-21 17:09:32 Office Visit [place] [facility] 1.2.840.114 350.1.13.10 4.2.7.2.686 [id number] [facility] 2019-09-21 13:40:00 2019-09-21 13:40:00 Outpatient R LIBERTY CAMP [facility] [id number] [facility] 2019-08-30 15:01:37 2019-08-30 15:11:37 Office Visit Antonia Pike [facility] 1.2.840.114 350.1.13.10 4.2.7.2.686 [id number] 225 [id number] [facility] 2019-08-22 15:33:37 2019-08-22 15:43:37 Office Visit Ivet Aiden Armijo [facility] 1.2.840.114 350.1.13.10 4.2.7.2.686 [id number] [facility] 2019-08-21 09:14:31 2019-08-21 10:35:00 Emergency Ashley Avendano [facility] 1.2.840.114 350.1.13.10 4.2.7.2.686 [id number] 084 [id number] [facility] 2019-08-10 11:01:47 2019-08-10 11:21:47 Nurse Visit NurseOsvaldo Maria P Alvin [facility] 1.2.840.114 350.1.13.10 4.2.7.2.686 [id number] [facility] 2019-08-09 09:22:22 2019-08-09 12:41:52 Office Visit Antonia Pike [facility] 1.2.840.114 350.1.13.10 4.2.7.2.686 [id number] 225 [id number] [facility] 2019-08-09 00:00:00 2019-08-09 00:00:00 Orders Only Antonia Pike [facility] 1.2.840.114 350.1.13.10 4.2.7.2.686 [id number] [id number] [facility] 2019-07-28 00:00:00 2019-07-28 00:00:00 Orders Only Doctor Unassigned, [facility] 1.2.840.114 350.1.13.10 4.2.7.2.686 [id number] [id number] [facility] 2019-03-30 12:55:51 2019-03-30 13:15:51 Office Visit Kassidy Arenas [facility] 1.2.840.114 350.1.13.10 4.2.7.2.686 [id number] 225 [id number] [facility] 2019-03-29 00:00:00 2019-03-29 00:00:00 Telephone Elina Rome [facility] 1.2.840.114 350.1.13.10 4.2.7.2.686 [id number] 225 [id number] [facility] 2019-03-27 09:41:28 2019-03-27 09:51:28 Office Visit Aiden Cooney [facility] 1.2.840.114 350.1.13.10 4.2.7.2.686 [id number] 225 [id number] [facility] 2019-03-22 15:41:22 2019-03-22 23:59:00 Hospital Encounter Aiden Cooney [facility] 1.2.840.114 350.1.13.10 4.2.7.2.686 [id number] [facility] 2019-03-21 15:31:39 2019-03-22 09:26:38 Office Visit Mike Heard Aiden Cooney [facility] 1.2.840.114 350.1.13.10 4.2.7.2.686 [id number] 225 [id number] [facility] 2019-03-08 09:03:07 2019-03-08 09:13:07 Office Visit Aiden Cooney [facility] 1.2.840.114 350.1.13.10 4.2.7.2.686 [id number] 225 [id number] [facility] 2019-03-03 10:38:58 2019-03-03 11:09:50 Office Visit Aiden Cooney [facility] 1.2.840.114 350.1.13.10 4.2.7.2.686 [id number] [facility] 2019-02-10 15:44:39 2019-02-10 23:59:00 [facility] 1.2.840.114 350.1.13.10 4.2.7.2.686 [id number] [facility] 2019-02-10 08:00:00 2019-02-10 15:43:00 Hospital [facility] 1.2.840.114 350.1.13.10 4.2.7.2.686 [id number] [facility] Results Test Description Test Time Test Comments Results Result Co mments Source [facility] WITH [id number] 11:43:20* Test Item Value Reference Range Interpretation [...] 32.0 g/dL 31.6-35.1 RDW-SD (test code = 37006-9) 47.8 fL 39.0-49.9 RDW-CV (test code = 788-0) 14.8 % 12.0-15.5 PLT (test code = 777-3) 282 See_Comment [Automated messa ge] The system which generated this result transmitted reference range: 166 - 358 10*3/?L. The reference range was not used to interpret this result as normal/abnormal. MPV (test code = 02628-8) 10.6 fL 9.5-12.9 NRBC/100 WBC (test code = 6391888166) 0.0 See_Comment [Automated me ssage] The system which generated this result transmitted reference range: 0.0 - 10.0 /100 WBCs. The reference range was not used to interpret this result as normal/abnormal. NRBC x10^3 (test code = 6581660486) See_Comment [Automated messa ge] The system which generated this result transmitted reference range: 10*3/?L. The reference range was not used to interpret this result as normal/abnormal. GRAN MAT (NEUT) % (test code = 770-8) 51.7 % IMM GRAN % (test code = 3533248058) 0.20 % LYMPH % (test code = 736-9) 40.7 % MONO % (test code = 5905-5) 6.6 % EOS % (test code = 713-8) 0.4 % BASO % (test code = 706-2) 0.4 % GRAN MAT x10^3(ANC) (test code = 7763509835) 4.76 10*3/uL 1.88-7.09 IMM GRAN x10^3 (test code = 4052872667) 0.00-0.06 LYMPH x10^3 (test code = 731-0) 3.76 10*3/uL 1.32-3.29 H MONO x10^3 (test code = 742-7) 0.61 10*3/uL 0.33-0.92 EOS x10^3 (test code = 711-2) 0.04 10*3/uL 0.03-0.39 BASO x10^3 (test code = 704-7) 0.04 10*3/uL 0.01-0.07 Lab Interpretation (test code = 61568-4) Abnormal [facility] [id number] 15:31:00* Test Item Value Reference Range Interpretation Comme nts POCT PREG (test code = 1605) Negative On board controls acceptable with C Line (test code = 3574) Yes POCT PREG LOT # (test code = 3575) POCT PREG TEST DATE ( test code = 3576) [facility] [id number] 15:31:00* Test Item Value Reference Range Interpretation Comme nts POCT PREG (test code = 1605) Negative On board controls acceptable with C Line (test code = 3574) Yes POCT PREG LOT # (test code = 3575) POCT PREG TEST DATE ( test code = 3576) [id number] 11:21:25* Test Item Value Reference Range Interpretation Comme nts MAGNESIUM (test code = 1131336797) 2.2 mg/dL 1.7-2.4 Lab Interpretation (test cod e = 05183-7) [facility] [id number] 11:21:25* Test Item Value Reference Range Interpretation Comme nts MAGNESIUM (test code = 8202418781) 2.2 mg/dL 1.7-2.4 Lab Interpretation (test cod e = 91027-0) [facility] (NA, K, CL, CO2, GLUCOSE, BUN, CREATININE, CA)2023-05-02 11:21:05* Test Item Value Reference Range Interpretation Comme nts NA (test code = 9952481919) 138 mmol/L 135-145 K (test code = 2700033177) 3.8 mmol/L 3.5-5.0 CL (test code = 1532970143) 102 mmol/L 98-108 CO2 TOTAL (test code = 1703552369) 22 mmol/L 23-31 L AGAP (test code = 0650517074) 14 2-16 BUN (test code = 2410489292) 21 mg/dL 7-23 GLUCOSE (test code = 0674342388) 88 mg/dL 70-110 CREATININE (test code = 4319829051) 0.65 mg/dL 0.50-1.04 CALCIUM (test code = 6670026871) 9.3 mg/dL 8.6-10.6 eGFR (test code = 8667747568) 116.2 mL/min/1.73m2 RADHA (test code = RADHA) [...] imaging tests). Lab Interpretation (test code = 72547-3) [facility]42973[facility] (ALB,T.PRO,BILI T,BU/BC,ALT,AST,ALK PHOS)2023-05-02 11:21:05* Test Item Value Reference Range Interpretation Comme nts TOTAL BILI (test code = 8608318164) 0.3 mg/dL 0.1-1.1 BILI UNCON (test code = 0039007161) 0.2 mg/dL 0.1-1.1 BILI CONJ (test code = 0859714842) 0.0 mg/dL 0.0-0.3 T PROTEIN (test code = 0034936189) 7.6 g/dL 6.3-8.2 ALBUMIN (test code = 2491140840) 4.4 g/dL 3.5-5.0 ALK PHOS (test code = 9338264610) 72 U/L 34-122 ALTv (test code = 1742-6) 13 U/L 5-35 AST(SGOT) (test code = 9303846360) 17 U/L 13-40 Lab Interpretation (test cod e = 60456-3) [facility] (NA, K, CL, CO2, GLUCOSE, BUN, CREATININE, CA)2023-05-02 11:21:05* Test Item Value Reference Range Interpretation Comme nts NA (test code = 1580638952) 138 mmol/L 135-145 K (test code = 9644884469) 3.8 mmol/L 3.5-5.0 CL (test code = 4642489059) 102 mmol/L 98-108 CO2 TOTAL (test code = 4878442135) 22 mmol/L 23-31 L AGAP (test code = 3725019792) 14 2-16 BUN (test code = 5752536271) 21 mg/dL 7-23 GLUCOSE (test code = 0093698205) 88 mg/dL 70-110 CREATININE (test code = 0893530648) 0.65 mg/dL 0.50-1.04 CALCIUM (test code = 5737822637) 9.3 mg/dL 8.6-10.6 eGFR (test code = 6465508809) 116.2 mL/min/1.73m2 RADHA (test code = RADHA) [...] imaging tests). Lab Interpretation (test code = 79856-6) [facility] (97988[facility] (ALB,T.PRO,BILI T,BU/BC,ALT,AST,ALK PHOS)2023-05-02 11:21:05* Test Item Value Reference Range Interpretation Comme nts TOTAL BILI (test code = 9540312163) 0.3 mg/dL 0.1-1.1 BILI UNCON (test code = 4177752363) 0.2 mg/dL 0.1-1.1 BILI CONJ (test code = 6785451585) 0.0 mg/dL 0.0-0.3 T PROTEIN (test code = 9578018781) 7.6 g/dL 6.3-8.2 ALBUMIN (test code = 6540863957) 4.4 g/dL 3.5-5.0 ALK PHOS (test code = 9469206665) 72 U/L 34-122 ALTv (test code = 1742-6) 13 U/L 5-35 AST(SGOT) (test code = 1782809417) 17 U/L 13-40 Lab Interpretation (test cod e = 92351-0) Normal [facility] with [id number] 10:46:23* Test Item Value Reference Range Interpretation Comme nts WBC (test code = 6690-2) 7.54 See_Comment [Automated [employer]] The system which generated this result transmitted reference range: 4.30 - 11.10 10*3/?L. The reference range was not used to interpret this result as normal/abnormal. RBC (test code = 789-8) 4.05 See_Comment [Automated [employer]] The system which generated this result transmitted [...] 32.3 g/dL 31.6-35.1 RDW-SD (test code = 15071-3) 46.6 fL 39.0-49.9 RDW-CV (test code = 788-0) 14.7 % 12.0-15.5 PLT (test code = 777-3) 283 See_Comment [Automated messa ge] The system which generated this result transmitted reference range: 166 - 358 10*3/?L. The reference range was not used to interpret this result as normal/abnormal. MPV (test code = 63297-7) 10.5 fL 9.5-12.9 NRBC/100 WBC (test code = 5418877894) 0.0 See_Comment [Automated [employer] ssage] The system which generated this result transmitted reference range: 0.0 - 10.0 /100 WBCs. The reference range was not used to interpret this result as normal/abnormal. NRBC x10^3 (test code = 5399879172) See_Comment [Automated messa ge] The system which generated this result transmitted reference range: 10*3/?L. The reference range was not used to interpret this result as normal/abnormal. GRAN MAT (NEUT) % (test code = 770-8) 40.7 % IMM GRAN % (test code = 0712470554) 0.10 % LYMPH % (test code = 736-9) 48.4 % MONO % (test code = 5905-5) 8.8 % EOS % (test code = 713-8) 1.3 % BASO % (test code = 706-2) 0.7 % GRAN MAT x10^3(ANC) (test code = 8604371520) 3.07 10*3/uL 1.88-7.09 IMM GRAN x10^3 (test code = 3707305326) 0.00-0.06 LYMPH x10^3 (test code = 731-0) 3.65 10*3/uL 1.32-3.29 H MONO x10^3 (test code = 742-7) 0.66 10*3/uL 0.33-0.92 EOS x10^3 (test code = 711-2) 0.10 10*3/uL 0.03-0.39 BASO x10^3 (test code = 704-7) 0.05 10*3/uL 0.01-0.07 Lab Interpretation (test code = 59147-3) Abnormal [facility] with [id number] 10:46:23* Test Item Value Reference Range Interpretation [...] 32.3 g/dL 31.6-35.1 RDW-SD (test code = 96869-6) 46.6 fL 39.0-49.9 RDW-CV (test code = 788-0) 14.7 % 12.0-15.5 PLT (test code = 777-3) 283 See_Comment [Automated messa ge] The system which generated this result transmitted reference range: 166 - 358 10*3/?L. The reference range was not used to interpret this result as normal/abnormal. MPV (test code = 86064-5) 10.5 fL 9.5-12.9 NRBC/100 WBC (test code = 2292479869) 0.0 See_Comment [Automated [employer] ssage] The system which generated this result transmitted reference range: 0.0 - 10.0 /100 WBCs. The reference range was not used to interpret this result as normal/abnormal. NRBC x10^3 (test code = 9744561992) See_Comment [Automated messa ge] The system which generated this result transmitted reference range: 10*3/?L. The reference range was not used to interpret this result as normal/abnormal. GRAN MAT (NEUT) % (test code = 770-8) 40.7 % IMM GRAN % (test code = 3060025020) 0.10 % LYMPH % (test code = 736-9) 48.4 % MONO % (test code = 5905-5) 8.8 % EOS % (test code = 713-8) 1.3 % BASO % (test code = 706-2) 0.7 % GRAN MAT x10^3(ANC) (test code = 8102024309) 3.07 10*3/uL 1.88-7.09 IMM GRAN x10^3 (test code = 2015997622) 0.00-0.06 LYMPH x10^3 (test code = 731-0) 3.65 10*3/uL 1.32-3.29 H MONO x10^3 (test code = 742-7) 0.66 10*3/uL 0.33-0.92 EOS x10^3 (test code = 711-2) 0.10 10*3/uL 0.03-0.39 BASO x10^3 (test code = 704-7) 0.05 10*3/uL 0.01-0.07 Lab Interpretation (test code = 86332-3) [facility] 14:08:00* Test Item Value Reference Range Interpretation Comme nts SURGICAL (test code = SR) R UN DATE: 11/03/22 [facility] PAGE 1 RUN TIME: 1409 Specimen Inquiry RUN USER: INTERFACE P ATIENT: LUIS EDMONDS [facility] #: [id number] LOC: JORDI U #: [id number] AGE/SX: 21/F ROOM: [facility] RE10/30/22REG DR: Luis Burciaga MD : 02 BED: 1 DIS: 11/02/22 STATUS: DIS IN TLOC: SPEC #: [id number] RECD: 11/02/22 STATUS: GLENN EVERETT #: [id number] SLOAN: 10/31/22- SUBM DR: Luis Burciaga MD ENTERED: 11/02/22 SP TYPE: SURGICAL OTHR DR: ORDERED: 29902, ANATOMIC SPEC PROCEDURES: 07245 (11/02/22) TISSUES: A. PLACENTA, THIRD TRIMESTER (28 + WEEKS) CLINICAL HISTORY SAME, DELIVERED FINAL DIAGNOSIS Placenta: Third trimester placenta with acute chorionitis, deciduitis; 713 g (expected ddeo761 g); trivascular umbilical cord without significant inflammation.. [...] weighs 713 g. Technical component performed at [facility],[address] [place] [address], [place] [address] Unless gross only, the diagnosis is based [...] 11/03/22 1408 END OF REPORT CBC W/AUTO [id number] 07:54:00* Test Item Value Reference Range Interpretation [...] c ode = MDIFF) NO RAPID PLASMA [id number] 11:50:00* Test Item Value Reference Range Interpretation Comme nts RAPID PLASMA REAGIN (test co de = RPR) NONREACTIVE NONREACTIVE AG HEPATITIS B [id number] 11:50:00* Test Item Value Reference Range Interpretation Comme nts AG HEPATITIS B SURFACE (test code = HBSAG) NON REACTIVE INDEX NonReactive AB HIV 1 11:50:00* Test Item Value Reference Range Interpretation Comme nts AB HIV 1 2 (test code = GUG22FT) Nonreactive Nonreactive CBC W/AUTO [id number] 19:59:00* Test Item Value Reference Range Interpretation [...] c ode = MDIFF) NO AMNISURE (ROM) [id number] 18:12:00* Test Item Value Reference Range Interpretation Comme nts AMNISURE (ROM) TEST (test co de = AMNI) POSITIVE NEGATIVE A AMNISURE (ROM) [id number] 21:41:00* Test Item Value Reference Range Interpretation Comme nts AMNISURE (ROM) TEST (test co de = AMNI) NEGATIVE NEGATIVE [id number] 20:11:00* Test Item Value Reference Range Interpretation Comme nts FIBRONECTIN (test code = FFN) POSITIVE NEGATIVE A UA RFLX MICR CULT IF [id number] 20:11:00* Test Item Value Reference Range Interpretation [...] PainSpecimen Description: CLEAN CATCHDRUGS OF ABUSE SCREEN [id number] 20:10:00* Test Item Value Reference Range Interpretation [...] be used for non-medical purposes. - BIOPHYS [id number] 00:00:00 [facility] 2000 Sex: F Name: BI EDMONDS [facility] : 2000 Age/S: 21 / F [address] [place] [address] Unit #: [id number] Loc: [place] [address] Phys: Zoila Gomez DO Acct: [id number] Dis Date: Status: REG ER PHONE #: [phone] Exam Date: 09/26/20222004 FAX #: [phone] Reason: decreased FM EXAMS: CPT CODE: [id number] US BIOPHYS PROF [id number] PROCEDURE INFORMATION: Exam: US Biophysical Profile Without Non-Stress Test Exam date and time: 09/26/2022 7:49 PM Age: 21 years old Clinical indication: Pain indication: Abdominal pain; ; Additional info: Decreased fm TECHNIQUE: Imaging protocol: US biophysical profile without non-stress testing. COMPARISON: US FET BIO PH WI W/O NST 09/07/2022 11:03 PM A limited [...] 8/8. SL: 131. at 2113 Reported and signedby: Malcolm Wilson M.D. CC: Zoila Gomez DO Technologist: Josefina Fitch Trnscb Date/Time: 09/26/2022 (2113) Karoline Orig Print D/T: S: 09/26/2022 (2113) Probe: PAGE 1 Signed Report- US PREG AFTER [id number] 00:00:00 [facility] MADELINE COFFMANName: BI EDMONDS : 2000 Sex: F Name: BI EDMONDS [facility] Madeline Coffman : 2000 Age/S: 21 / F [address] [place] [address] Blvd Unit #: [id number] Loc: [place] [address] Phys: Zoila Gomez DO Acct: [id number] Dis Date: Status: REG ER PHONE #: [phone] Exam Date: 09/26/20222004 FAX #: [phone] Reason: PTL EXAMS: CPT CODE: [id number] US PREG AFTER 1ST TRI 05334 PROCEDURE INFORMATION: Exam: US After First Trimester, [...] 1 Signed Report (CONTINUED) Name: BI EDMONDS [facility] [place] : 2000 Age/S: 21 / F [address] [place] [address] Unit #: [id number] Loc: [place] [address] Phys: Zoila Gomez DO Acct: [id number] Dis Date: Status: REG ER PHONE #: [phone] Exam Date: 09/26/20222004 FAX #: [phone] Reason: PTL EXAMS: CPT CODE: [id number] US PREG AFTER 1ST TRI 11520 (Continued) movement: 2. breathin Amniotic fluid: 2 Total score 8/8 IMPRESSI ON: 1. Single viable intrauterine gestation in cephalic presentation. 2. Normal growth concordant with dates. 3. Normal biophysical profile. Electronically Signed by Valeria Wolfe on09/26/2022 at 2116 Reported and signed by: Jeromy Wolfe M.D. CC: Zoila Gomez DO Technologist:Josefina Fitch [facility] Date/Time: 09/26/2022 (2116) [email or web address] Orig Print D/T: S: 09/26/2022 (2116) Probe: PAGE 2 Signed ReportAMNISURE (ROM) [id number] 14:39:00* Test Item Value Reference Range Interpretation Comme nts AMNISURE (ROM) TEST (test co de = AMNI) NEGATIVE NEGATIVE CHLAMYDIA GC DNA BY [id number] 13:07:00* Test Item Value Reference Range Interpretation Comme nts C. TRACHOMATIS DNA BY PCR (test code = CHLAMTDNA) Negative Negative N. GONORRHOEAE DNA BY PCR (test code = NGONORDNA) Negative Negative Performed At: [facility] [id number] Marc Rosales MD Ph:[phone] UA RFLX MICR CULT IF [id number] 21:16:00* Test Item Value Reference Range Interpretation [...] culture: Suprapubic PainSpecimen Description: CLEAN CATCHRAPID PLASMA [id number] 11:04:00* Test Item Value Reference Range Interpretation Comme nts RAPID PLASMA REAGIN (test co de = RPR) NONREACTIVE NONREACTIVE AG HEPATITIS B [id number] 11:04:00* Test Item Value Reference Range Interpretation Comme nts AG HEPATITIS B SURFACE (test code = HBSAG) NON REACTIVE INDEX NonReactive AB HIV 1 [id number] 11:04:00* Test Item Value Reference Range Interpretation Comme nts AB HIV 1 2 (test code = DRY78YR) Nonreactive Nonreactive [id number] 08:05:00* Test Item Value Reference Range Interpretation Comme nts MAGNESIUM (test code = MAG) 4.22 mg/dL 1.80-2.40 HH CBC W/AUTO [id number] 00:08:00* Test Item Value Reference Range Interpretation [...] MDIFF) NO - US FET BIO PH WI W/O [id number] 00:00:00 [facility] 2000 Sex: FName: LUIS EDMONDS [facility] : 2000 Age/S: 21 / F [address] [place] [address] Blvd Unit #:[id number] Loc: [place] [address] Phys: Juany Carrillo MD Acct: [id number] Dis Date: Status: ADMIN PHONE #: [phone] Exam Date: 09/07/20222315 FAX #: [phone] Reason: IUP@29 wks; Leakingfluid; ROM plus positive EXAMS: CPT CODE: [id number] US FET BIO PH WI W/O NST 60635 PROCEDURE INFORM ATION: Exam: US , Limited Exam date and [...] 1 Signed Report (CONTINUED) Name: LUIS EDMONDS [facility] : 2000 Age/S: 21 / F [address] [place] [address] Unit #: [id number] Loc: [place] [address] Phys: Juany Carrillo MD Acct: [id number] Dis Date: Status: ADM IN PHONE #: [phone] Exam Date: 09/07/2022 2316 FAX #: [phone] Reason: IUP@29 wks; Leaking fluid; ROM plus positive EXAMS: CPT CODE: [id number] US FET BIO PH WI W/O NST 97031 (Continued) A limited transabdominal obstetrical ultrasound was [...] Juany Carrillo MD Technologist: Victoria Tripathi RDMS(AB)(OB) TrnscbDate/Time: 09/08/2022 (0002) Karoline Orig Print D/T: S: 09/08/2022 (0002) Probe: PAGE 2 Signed Report- US [id number] 00:00:00 [facility] : 2000 Sex: F Name: LUIS EDMONDS [facility] [place] : 2000 Age/S: 21 / F [address] [place], [place] [address]vd Unit #: [id number] Loc: [place] [address] Phys: Juany Carrillo MD Acct: [id number] Dis Date: Status: ADM IN PHONE #: [phone] Exam Date: 09/07/20222314 FAX #: [phone] Reason: see US FET BIO PH WI W/O NST EXAMS: CPT CODE: [id number] US LTD 80219 PROCEDURE INFORMATION: Exam: US , Limited Exam [...] 1 Signed Report (CONTINUED) Name: LUIS EDMONDS [facility] : 2000 Age/S: 21 / F [address] [place] [address] Blvd Unit #: [id number] Loc: [place] [address] Phys: Juany Carrillo MD Acct: [id number] Dis Date: Status: ADM IN PHONE #: [phone] Exam Date: 09/07/20222314 FAX #: [phone] Reason: see US FET BIO PH WI W/O NST EXAMS: CPT CODE: [id number] US LTD 67466 (Continued) A limited transabdominal obstetrical ultrasound was [...] Victoria Tripathi RDMS(AB)(OB) Trnscb Date/Time: 09/08/2022 (1) t.[email or web address] Orig Print D/T: S: 09/08/2022 (0002) Probe: PAGE 2 Signed ReportAMNISURE (ROM) [id number] 22:26:00* Test Item Value Reference Range Interpretation Comme nts AMNISURE (ROM) TEST (test co de = AMNI) POSITIVE NEGATIVE A UA RFLX MICR CULT IF [id number] 22:12:00* Test Item Value Reference Range Interpretation [...] for culture: Suprapubic PainSpecimen Description: CLEAN CATCHFETAL [id number] 16:47:00* Test Item Value Reference Range Interpretation Comme nts FIBRONECTIN (test code = FFN) NEGATIVE NEGATIVE URINALYSIS [id number] 16:34:00* Test Item Value Reference Range Interpretation [...] SEEN - XR ANKLE 3 + V [id number] 00:00:00 [facility] : 2000 Sex: F FAX: Emily Mckoy MD [phone] [place]: [address] St: PRE FAX: Romeo Chavez Name: LUIS EDMONDS [facility] : 2000 Age/S: 21/F [address] [facility] Unit #: [id number] Loc: [place] [address] Phys: Ghanshyam Chavez MD Acct: [id number] Dis Date: Status: PRE ER PHONE #: Exam Date: 03/06/2022 1600 FAX #: Reason: R ANKLE PAIN AFTER FALL EXAMS: CPT CODE: [id number] XR ANKLE 3 + V RT 47213 PROCEDURE INFORMATION: Exam: XR Right Ankle Exam [...] assessment. IMPRESSION: No fracture or dislocation at 1608 Reported and signed by: Emeka Pickering M.D. CC: Emily Artis MD; Otoniel Chavez MD Technologist: RT Valerie(R)(CT) Trnokrd Date/Time/By: 03/06/2022 (9373) :By: Kristian Orig Print D/T: S: 03/06/2022 (0047) PAGE 1 Signed Report- XR FOOT 3 + V [id number] 00:00:00 [facility] : 2000 Sex: F FAX: Emily Mckoy MD [phone] [place]: NE St: PRE FAX: Romeo Chavez Name: LUIS EDMONDS Marisol [facility] : 2000 Age/S: 21/F [address] [facility] Unit #: [id number] Loc: [place] [address] Phys:Ghanshyam Chavez MD Acct: [id number] Dis Date: Status: PRE ER PHONE #: Exam Date: 03/06/2022 1554 FAX #: Reason: r foot injury EXAMS: CPT CODE: [id number] XR FOOT 3 + V RT 26083 PROCEDURE INFORMATION: Exam: XR Right Foot Exam [...] MD Technologist: RT Valerie(R)(CT) Trnscrd Date/Time/By: 03/06/2022 (160) : By: KaneSBL Orig Print D/T: S: 03/06/2022 (824) PAGE 1 Signed ReportURINE HCG TRIAGE (ER ONLY)2021-11-11 08:40:00* Test Item Value Reference Range Interpretation Comme nts URINE HCG TRIAGE (ER ONLY) ( test code = HCGTRIAGE) NEGATIVE Negative Urine Test Result: NEGATIVEAre internal controls (presence of a control line & clear background) OK? YLot # of HCG Test Kit: [id number] Date of Kit: 02/15/23Test Performed by:Carlo Perfomed on: 11/11/21COMMENTS: NEGATIVEUA DIPSTICK [id number] 00:46:00* Test Item Value Reference Range Interpretation Comme nts UA GLUCOSE DIPSTIC POC (test code = GLUUP) NEGATIVE NEGATIVE UA BILIRUBIN DIPSTICK (test code = BILU) NEGATIVE NEGATIVE UA KETONE DIPSTICK POC (test code = KETUP) NEGATIVE NEGATIVE UA SPECIFIC GRAVITY (test code = SGU) 1.010 1.005-1.030 N UA BLOOD DIPSTIC POC (test code = BLUP) NEGATIVE NEGATIVE Performed by certified pneumatic tool operator at [facility] UA PH DIPSTIC POC (test code = PHUP) 7 5.0-7.0 N UA PROTEIN DIPSTICK POC (test code = DPROUP) NEGATIVE NEGATIVE UA UROBILINIOGEN QUAL (test code = UROQL) NORMAL 0.2-1.0 UA NITRITE DIPSTICK POC (test code = NITUP) NEGATIVE Negative UA LEUKOCYTE ESTERASE W REFLEX (test code = LEUUR) Negative NEGATIVE SURGICAL PATH [id number] 13:13:00* Test Item Value Reference Range Interpretation Comme nts SURGICAL PATH SPECIMENS (test code = S) RUN DATE: 03/28/21 [place] - LAB PAGE 1 RUN TIME: 1313 Specimen Inquiry RUN USER: INTERFACE ARTEMIO ENT: LUIS EDMONDS LOC: [place] U #: [id number] AGE/SX: 20/F ROOM: [facility] RE03/25/21REG DR: Luis Burciaga MD : [birth year] BED: 1 DIS: STATUS: ADM IN TLOC: SPEC #: [id number] RECD: 03/27/21 STATUS: GLENN REGreta #: [id number] SLOAN: 03/26/21- SUBM DR: Luis Burciaga MD ENTERED: 03/27/21 SP TYPE: SURG SPEC OTHR DR: ORDERED: GM LEVEL 5 CODES: [id number] - PLACENTA, NOS PROCEDURES: GM LEVEL 5 [...] 03/28/21 1313 END OF REPORT CBC W/AUTO [id number] 07:03:00* Test Item Value Reference Range Interpretation [...] ode = MDIFF) NO CORD VENOUS BLOOD [id number] 18:41:00* Test Item Value Reference Range Interpretation [...] = O2SCV) 17 % CORD ARTERIAL BLOOD [id number] 18:40:00* Test Item Value Reference Range Interpretation [...] O2S/C) 25 % 72-77 L RAPID PLASMA [id number] 10:40:00* Test Item Value Reference Range Interpretation Comme nts RAPID PLASMA REAGIN (test co de = RPR) NONREACTIVE NONREACTIVE AG HEPATITIS B [id number] 10:40:00* Test Item Value Reference Range Interpretation Comme nts AG HEPATITIS B SURFACE (test code = HBSAG) NON REACTIVE INDEX NonReactive AB HIV 1 10:40:00* Test Item Value Reference Range Interpretation Comme nts AB HIV 1 2 (test code = NUO96XB) Nonreactive Nonreactive COVID 19 Asymptomatic IH [id number] 20:20:00* Test Item Value Reference Range Interpretation [...] perform moderate, high or waivedcomplexity tests. URINALYSIS [id number] 18:48:00* Test Item Value Reference Range Interpretation [...] MUCU) TRACE /LPF NONE SEEN RAPID PLASMA [id number] 18:11:00* Test Item Value Reference Range Interpretation Comme nts RAPID PLASMA REAGIN (test code = RPR) NONREACTI VE AG HEPATITIS B [id number] 18:11:00* Test Item Value Reference Range Interpretation Comme nts AG HEPATITIS B SURFACE (test code = HBSAG) NON REACTIVE INDEX NonReactive AB HIV 1 18:11:00* Test Item Value Reference Range Interpretation Comme nts AB HIV 1 2 (test code = FEW20SF) Nonreactive Nonreactive COMPREHENSIVE METABOLIC [id number] 17:45:00* Test Item Value Reference Range Interpretation [...] = ALKP) 153 IUnit/L 60-350 N URIC [id number] 17:45:00* Test Item Value Reference Range Interpretation Comme nts URIC ACID (test code = URIC) 4.0 mg/dL 2.6-7.2 N LACTIC DEHYDROGENASE(LDH)2021-03-25 17:45:00* Test Item Value Reference Range Interpretation Comme nts LACTIC DEHYDROGENASE(LDH) (t est code = LDH) 225 IUnits/L 84-246 N CBC W/AUTO [id number] 17:24:00* Test Item Value Reference Range Interpretation [...] (test c ode = MDIFF) CBC W/AUTO [id number] 17:24:00* Test Item Value Reference Range Interpretation [...] ode = MDIFF) NO - US BIOPHYS [id number] 00:00:00 [facility] : 2000 Sex: F Name: LUIS EDMONDS [facility] : 2000 Age/S: 20 / F [address] [place] [address] Bl Unit #: [id number] Loc: [place] [address] Phys: Effie Solitario MD Acct: [id number] Dis Date: Status: REG ER PHONE #: [phone] Exam Date: 03/12/202141 FAX #: [phone] Reason: Possible SROM, please evaluate ISMA EXAMS: CPT CODE: [id number] US BIOPHYS PROF 97431 PROCEDURE INFORMATION: E xam: US Biophysical Profile [...] score of 8 out of 8. at 56 Reported and signed by: Reinaldo Will M.D. CC: Technologist: Yuki Ray RDMS()(OB) Trnscb Date/Time: 03/13/2021 (56) Sabine Orig Print D/T: S: 03/13/2021 (56) Probe: PAGE 1 Signed ReportAMNISURE (ROM) TEST 2021-03-12 22:05:00* Test Item Value Reference Range Interpretation Comme nts AMNISURE (ROM) TEST (test co de = AMNI) NEGATIVE NEGATIVE URINALYSIS [id number] 21:48:00* Test Item Value Reference Range Interpretation [...] = MUCU) TRACE /LPF NONE SEEN URINALYSIS [id number] 07:00:00* Test Item Value Reference Range Interpretation [...] TRACE /LPF NONE SEEN - US BIOPHYS [id number] 00:00:00 [facility] 2000 Sex: F Name: LUIS EDMONDS [facility] : 2000 Age/S: 20 / F [address] [place] [address] Unit #:[id number] Loc: [place] [address] Phys: Effie Solitario MD Acct: [id number] Dis Date: Status: REG ER PHONE #: [phone] Exam Date: 03/01/2021757 FAX #: [phone] Reason: decreased movements EXAMS: CPT CODE: [id number] US BIOPHYS PROF 34585 PROCEDURE INFORMATION: Exam: US F etal Biophysical Profile With Non-Stress Test Exam date [...] Technologist: Vilma Robles RDMS(AB) Trnscb Date/Time: 03/01/2021 (809) [email or web address] Orig Print D/T: S: 03/01/2021 (0811) Probe: PAGE 1 Signed Report AMNISURE (ROM) [id number] 16:16:00* Test Item Value Reference Range Interpretation Comme nts AMNISURE (ROM) TEST (test co de = AMNI) NEGATIVE NEGATIVE [id number] 16:16:00* Test Item Value Reference Range Interpretation Comme nts FIBRONECTIN (test code = FFN) NEGATIVE NEGATIVE [id number] 20:50:00* Test Item Value Reference Range Interpretation Comme nts FIBRONECTIN (test code = FFN) NEGATIVE NEGATIVE URINALYSIS [id number] 20:32:00* Test Item Value Reference Range Interpretation [...] TRACE /LPF NONE SEEN - US BIOPHYS [id number] 00:00:00 [facility] 2000 Sex: F Name: LUIS EDMONDS [facility] : 2000 Age/S: 20 / F [address] [place] [address] Bl Unit #: [id number] Loc: [place] [address] Phys: Effie Solitario MD Acct: [id number] Dis Date: Status: REG ER PHONE #: [phone] Exam Date: 02/12/20212122 FAX #: [phone] Reason: Decreased movements EXAMS: CPT CODE: [id number] US BIOPHYS PROF [id number] PROCEDURE INFORMATION: Exam: US Biophysical Profile With [...] BIOPHYSICAL PROFILE: Breathin/2 Gross body movements: 2/2 Fetaltone: 2/2 Qualitative amniotic fluid: 2/2 Reactive heart [...] 1 Signed Report (CONTINUED) Name: LUIS EDMONDS [facility] : 2000 Age/S: 20 / F [address] [place] [address] Unit #: [id number] Loc: [place] [address] Phys: Effie Solitario MD Acct: [id number] Dis Date: Status: REG ER PHONE #: [phone] Exam Date: 02/12/20212122 FAX #: [phone] Reason:Decreased movements EXAMS: CPT CODE: [id number] US BIOPHYS PROF 49237 <Continued> at 2121 Reported and signed by: Geovanny Hughes D.O. CC: Technologist: Yuki Ray RDMS()(OB) Trnscb Date/Time: 02/12/2021 (2121) [email or web address] Orig Print D/T: S: 02/12/2021 (2148) Probe: PAGE 2 Signed ReportURINALYSIS [id number] 03:25:00* Test Item Value Reference Range Interpretation [...] MUCU) TRACE /LPF NONE SEEN - US [id number] 17:34:00 [facility] : 2000 Sex: F Name: DELMER EDMONDSLLE [facility] [place] : 2000 Age/S: 20 / F [address] [place] [address] Unit #: [id number] Loc: [place] [address] Phys: Pearl Chavez DO Acct: [id number] Dis Date: Status: REG ER PHONE #: [phone] Exam Date: 12/25/2020 1726 FAX #: [phone] Reason: h/o low ISMA, unsure if PROM, translabial cervic EXAMS: CPT CODE: [id number] LTD 03211 LIMITED ULTRASOUND INDICATION: with history of low [...] 1 Signed Report (CONTINUED) Name: LUIS EDMONDS [facility] Chandra : 2000 Age/S: 20 / F [address] [place] [address] Unit #: [id number] Loc: [place] [address] Phys: Pearl Chavez DO Acct: [id number] Dis Date: Status: REG ER PHONE #: [phone] Exam Date: 12/25/2020 1726 FAX #: [phone] Reason: h/o low ISMA, unsure if PROM, translabial cervic EXAMS: CPT CODE: [id number] LTD 96802 <Continued> at 1734 Reported and signed by: Judah Izquierdo M.D. CC: Pearl Chavez DO Technologist: Merna Figueroa RDMS() Trnscb Date/Time: 12/25/2020 (1734) [email or web address] Orig Print D/T: S: 12/25/2020 (173) Probe: PAGE 2 Signed ReportAMNISURE (ROM) [id number] 17:14:00* Test Item Value Reference Range Interpretation Comme nts AMNISURE (ROM) TEST (test co de = AMNI) NEGATIVE NEGATIVE URINALYSIS [id number] 17:10:00* Test Item Value Reference Range Interpretation [...] /HPF NONE A DRUGS OF ABUSE SCREEN [id number] 17:07:00* Test Item Value Reference Range Interpretation [...] for non-medical purposes. - US PREG AFTER [id number] 02:47:00 [facility] COFFMANName: LUIS EDMONDS : 2000 Sex: F Name: LUIS EDMONDS [facility] Madeline Coffman : 2000 Age/S: 19 / F [address] [place] [address] Blvd Unit #:[id number] Loc: [place] [address] Phys: Brittnee Ramirez MD Acct: [id number] Dis Date: Status: REG ER PHONE #: [phone] Exam Date: 11/23/2020 0144 FAX #: [phone] Reason: No PNC, bleeding, approximately 20 weeks EXAMS: CPT CODE: [id number] US PREG AFTER 1ST TRI 49342 EXAM: US, US PREG AFTER 1SR TRI: [...] 1 Signed Report (CONTINUED) Name: LUIS EDMONDS [facility] : 2000 Age/S: 19 / F [address] [place] [address] Unit #: [id number] Loc:[place] [address] Phys: Brittnee Ramirez MD Acct: [id number] Dis Date: Status: REG ER PHONE #: [phone] Exam Date: 11/23/2020143 FAX #: [phone] Reason: No PNC, bleeding, approximately 20weeks EXAMS: CPT CODE: [id number] US PREG AFTER TRI 48176 <Continued> seen. Cervical length is not visualized. IMPRESSION: Single live fetus in variable presentation. heart rate is 140 bpm. 2. Sonographic EGA of 19 weeks 6 days and an sonographic DANY of 04/13/2021 +/- one standard dev iation. SL:[JSYED-H] at 0247 Reportedand signed by: Jeromy Wolfe M.D. CC: Brittnee Ramirez MD Technologist: Maryam Anderson RDMS(BR)(AB) Trnscb Date/Time: 11/23/2020 (246) [email or web address] Orig Print D/T: S: 11/23/2020 (025) Probe: PAGE 2 Signed Report- US PREG AFTER [id number] 02:47:00 [facility] : 2000 Sex: F Name: LUIS EDMONDS [facility] Madeline Coffman : 2000 Age/S: 19 / F [address] [place] [address] Unit #: [id number] Loc: [place] [address] Phys: Brittnee Ramirez MD Acct: [id number] Dis Date: Status: [facility] ER PHONE #: [phone] Exam Date: 11/23/2020 0144 FAX #: [phone] Reason: No PNC, bleeding, approximately 20 weeks EXAMS: CPT CODE: [id number] US PREG AFTER 1ST TRI 67723 EXAM: US, US PREG AFTER 1SR TRI: 11/23/2020, 0108 hours HISTORY: No PNC, bleeding, approximately 20 weeks TECHNIQUE: Sonographic evaluation is performed of the pelvis via transabdominal approach using grayscale, color flow and Doppler imaging when appropriate. COMPARISON: None available. FINDINGS: The examination shows a si ngle fetus in variable presentation. Normal cardiac activity is noted at 140 per second. The amountof amniotic fluid is normal. The placenta is anterior, grade 1. There is no evidence of previa. Thefollowing measurements are obtained: 1. BPD - 439 [...] of 19 weeks 6 days and an so nographic DANY of 04/13/2021 plus or minus one standard deviation. The LMP estimated gestational ageis 20 weeks 0 day . DANY by LMP is 04/12/2021. There is difference of one day between LMP estimated gestational age and sonographic gestational age. Gross survey, within the limitation of gestational age, is unremarkable. Three-vessel umbilical cord, cord insertion, kidneys, bladder, stomach, extremities and 4 chamber view of heart was PAGE 1 Signed Report (CONTINUED) Name: MARIAM,LUIS [facility] : 2000 Age/S: 19 / F [address] [place] [address] Blvd Unit #: [id number] Loc: [place] [address] Phys: Brittnee Ramirez MD Acct: [id number] Dis Date: Status: DEP ER PHONE #: Exam Date: 11/23/2020143 FAX #: [phone] Reason: No PNC, bleeding, approximately 20 weeks EXAMS: CPT CODE: [id number] US PREG AFTER 1ST TRI 60065 <Continued> seen. Cervical length is not visualized. IMPRESSION: Single live fetus in variable presentation. heart rate is 140 bpm. 2. Sonographic EGA of 19 weeks 6 days and an sonographic DANY of 04/13/2021 +/- one standard deviation. SL:[JSYED-H] at 0247 Reportedand signed by: Jeromy Wolfe M.D. CC: Brittnee Ramirez MD Technologist: Maryam Anderson RDMS(BR)(AB) Trnscb Date/Time: 11/23/2020 (246) [email or web address] Orig Print D/T: S: 11/23/2020 (0250) Probe: PAGE 2 Signed ReportURINALYSIS [id number] 01:40:00* Test Item Value Reference Range Interpretation [...] /HPF NONE A DRUGS OF ABUSE SCREEN [id number] 01:40:00* Test Item Value Reference Range Interpretation [...] be used for non-medical purposes. CBC W/AUTO [id number] 01:27:00* Test Item Value Reference Range Interpretation [...] c ode = MDIFF) NO BASIC METABOLIC [id number] 02:51:00* Test Item Value Reference Range Interpretation [...] = CA) 9.5 mg/dL 8.0-10.5 N HCG [id number] 02:51:00* Test Item Value Reference Range Interpretation Comme nts HCG SERUM (test code = HCG) 04359.3 0 - 6 NOT PREGNA NT > 6 SUGGESTIVE OF EARLY RISES TWO FOLD EVERY 2 DAYS; SUGGEST RECONFIRMING AFTER 2 DAYS. 150,000-200,[address] TRIMESTER 10,000 - 50,000 2ND & 3RD TRIMESTERResults in emanuel-International Units/mL URINALYSIS [id number] 02:39:00* Test Item Value Reference Range Interpretation [...] MUCU) TRACE /LPF NONE SEEN CBC W/AUTO [id number] 02:21:00* Test Item Value Reference Range Interpretation [...] = MDIFF) NO - US PREG 1ST [id number] 02:19:00 [facility] 2000 Sex: F Name: LUIS EDMONDS [facility] : 2000 Age/S: 19 / F [address] [place] [address] Unit #: [id number] Loc: [place] [address] Phys: Nirav Nolan MD Acct: [id number] Dis Date: Status: REG ER PHONE #: [phone] Exam Date: 10/05/2020209 FAX #: [phone] Reason: VB EXAMS: CPT CODE: [id number] US PREG 1ST TRIMTR 63341 STUDY: - DUP AB/PEL/SC/LTD, - US PREG 1ST TRIMTR 10/05/2020 1:17 AM Ordering Physician: Nirav Nolan MD Patient Name: LUIS EDMONDS MR: [id number] : 2000; Age: 19 years y/o Female [...] 1 Signed Report (CONTINUED) Name: LUIS EDMONDS [facility] : 2000 Age/S: 19 / F [address] [place] [address] Unit #: [id number] Loc: [place] [address] Phys: Nirav Nolan MD Acct: [id number] Dis Date: Status: REG ER PHONE #: [phone] Exam Date: 10/05/2020209 FAX #: [phone] Reason: VB EXAMS: CPT CODE: [id number] PREG 1ST TRIMTR 96540 <Continued> SL: TPAINTER-H E lectronically Signed by Valeria Avila on 10/05/2020 at 0219 Reported and signed by: Abdias Avila M.D. CC: Elina Rome MD; Nirav Nolan MD Technologist: Maryam Anderson RDMS()(AB) Trnscb Date/Time: 10/05/2020 (218) [email or web address] Orig Print D/T: S: 10/05/2020 (221) Probe: PAGE 2 Signed Report- DUP AB/PEL/SC/[id number] 02:19:00 [facility] MADELINE COFFMANName: LUIS EDMONDS : 2000 Sex: F Name: LUIS EDMONDS [facility] Madeline Coffman : 2000 Age/S: 19 / F [address] [place] [address] Blvd Unit #:[id number] Loc: [place] [address] Phys: Nirav Nolan MD Acct: [id number] Dis Date: Status: REG ER PHONE #: [phone] Exam Date: 10/05/2020209 FAX #: [phone] Reason: see US PREG 1st TRIMTR EXAMS: CPT CODE: [id number] DUP AB/PEL/SC/LTD [id number] STUDY: - DUP AB/PEL/SC/LTD, - US PREG 1STTRIMTR 10/05/2020 1:17 AM Ordering Physician: Nirav Nolan MD Patient Name: LUIS EDMONDS MR:[id number] : 2000; Age: 19 years y/o Female Clinical Indication: at 12 weeks with vaginal bleeding. Comparison: None TRANSABDOMINAL PELVIC ULTRASOUND: Technique: Grayscale, color, and Doppler transabdominal imaging of the pelvis was performed with standard technique. UTERUS: Mildly enlarged uterus measuring 12.0 x 8.0 x 9.5 cm without focal myometrial lesion. Well-formed singlelive intrauterine with crown-rump length measuring 6.7 cm or 13 weeks 0 days with heart rate of 154 bpm. RIGHT OVARY AND ADNEXA: General: Normal size right ovary measuring 3.4 x 1.2 x 2.2 cm containing subcentimeter follicles. Doppler: Normal low resistance arterial and venous bloodflow is demonstrated. LEFT OVARY AND ADNEXA: General: Normal size left ovary measuring 2.6 x 1.3 x 1.8 cm containing subcentimeter follicles. Doppler: Normal low resistance arterial and venous blood flow is demonstrated. URINARY BLADDER: Normal for degree of distention present containing anechoic urine. FLUID: None. OTHER FINDINGS: None. IMPRESSION: Normal single live intrauterine at 13weeks 0 days. PAGE 1 Signed Report (CONTINUED) Name: LUIS EDMONDS [facility] [place] : 2000 Age/S: 19 / F [address] [place] [address] Blvd Unit #: [id number] Loc: [place] [address] Phys: Nirav Nolan MD Acct: [id number] Dis Date: Status: REG ER PHONE #: [phone] Exam Date: 10/05/2020209 FAX #: [phone] Reason: see US PREG 1st TRIMTR EXAMS: CPT CODE: [id number] DUP AB/PEL/SC/DUH51131 <Continued> SL: TPAINTER-H at 0219 Reported and signed by: Abdias Avila M.D. CC: Elina Rome MD; Nirav Nolan MD Technologist: Maryam Anderson RDMS()(AB) Trnscb Date/Time: 10/05/2020 (218) [email or web address] Print D/T: S: 10/05/2020 (221) Probe: PAGE 2 Signed Report- DUP AB/PEL/SC/[id number] 22:07:00 [facility] LINOName: LUIS EDMONDS : 2000 Sex: F Name: LUIS EDMONDS [facility] : 2000 Age/S: 19 / F [address] [place], [place] [address]vd Unit #: [id number] Loc: [place] [address] Phys: Cathy Bruce Acct: [id number] Dis Date: Status: REG ER PHONE #: [phone] Exam Date: 08/22/20202199 FAX #: [phone] Reason: see US PREG 1st TRIMTR EXAMS: CPT CODE: [id number] DUP AB/PEL/SC/LTD 86717 PROCEDURE: FIRST TRIMESTER ULTRASOUND INDICATION: 6 weeks [...] Rome MD; Cathy MELO Technologist: Maryam Anderson RDMS(GOYO)(AB) Trnscb Date/Time: 08/22/2020 (2206) [email or web address] Orig Print D/T: S: 08/22/2020 (2209) Probe: PAGE 1 Signed Report- US PREG 1ST [id number] 22:07:00[facility] MADELINE COFFMANName: LUIS EDMONDS : 2000 Sex: F Name: LUIS EDMONDS [facility] Madeline Coffman : 2000 Age/S: 19 / F [address] [place] [address] Unit #: [id number] Loc: [place] [address] Phys: Cathy Bruce Acct: [id number] Dis Date: Status: REG ER PHONE #: [phone] Exam Date: 08/22/20202199 FAX #: [phone] Reason: 6w , cramping EXAMS: CPT CODE: [id number] US PREG 1ST TRIMTR 50828 PROCEDURE: FIRST TRIMESTER ULTRASOUND INDICATION: 6 weeks [...] weeks 4 days. SL: BALJINDER at 2207 Reported and signed by: Judah Izquierdo M.D. CC: Elina Rome MD; Cathy MELO Technologist: Maryam Anderson RDMS()(AB) Trnscb Date/Time: 08/22/2020 (2206) [email or web address] Orig Print D/T: S: 08/22/2020 (2209) Probe: PAGE 1 Signed ReportURINALYSIS [id number] 21:50:00* Test Item Value Reference Range Interpretation [...] MUCU) TRACE /LPF NONE SEEN BASIC METABOLIC [id number] 21:48:00* Test Item Value Reference Range Interpretation [...] patient ? YHOW MANY WEEKS? 6 WEEKSHCG [id number] 21:48:00* Test Item Value Reference Range Interpretation Comme nts HCG SERUM (test code = HCG) 60986.6 0 - 6 NOT PREGNA NT > 6 SUGGESTIVE OF EARLY RISES TWO FOLD EVERY 2 DAYS; SUGGEST RECONFIRMING AFTER 2 DAYS. 150,000-200,[address] TRIMESTER 10,000 - 50,000 2ND & 3RD TRIMESTERResults in emanuel-International Units/mL Is patient ? YHOW MANY WEEKS? 6 WEEKSUR HCG [id number] 21:47:00* Test Item Value Reference Range Interpretation Comme nts UR HCG QUAL (test code = HCGQLU) POSITIVE NEGATIVE CBC W/AUTO [id number] 21:33:00* Test Item Value Reference Range Interpretation [...] c ode = MDIFF) NO CBC W/AUTO [id number] 21:31:00* Test Item Value Reference Range Interpretation [...] c ode = MDIFF) Novel Coronavirus 2019 [id number] 14:50:00* Test Item Value Reference Range Interpretation Comme nts Novel Coronavirus 2019 nCoV (test code = COVID19) Negative Negative Performed by: [facility] [address], [address] [place], [place] [address] CLIA#: [id number] Does patient have the clinical criteria consistent with COVID-19? YIs the patient going to be discharged home? Y- CT NECK W/[id number] 02:35:00 Name: LUIS EDMONDS [facility] : 2000 Age/S: 19 / F [address] [place] [address] Unit #:[id number] Loc: [place] [address] Phys: Amilcar Pablo WEAVER TIRE CORD Acct: [id number] Dis Date: Status: REG ER PHONE #: [phone] Exam Date: 02/16/2020 0134 FAX #: [phone] Reason: R lymphadenopathy, throat pain, fever EXAMS: CPT CODE: [id number] CT NECK W/CONTRAST 33010 EXAM: CT, CT NECK W/CONTRAST: 02/16/2020, 0132 [...] 1 Signed Report (CONTINUED) Name: LUIS EDMONDS [facility] : 2000 Age/S: 19 / F [address] [place] [address] Unit #: [id number] Loc:[place] [address] Phys: Amilcar Pablo WEAVER TIRE CORD Acct: [id number] Dis Date: Status: REG ER PHONE #: Exam Date: 02/16/2020 0134 FAX #: [phone] Reason: R lymphadenopathy, throat pain, fever EXAMS: CPT CODE: [id number] CT NECK W/CONTRAST 74511 <Continued> unremarkable. OSSEOUS STRUCTURES: There are no [...] infectious/inflammatory process, follow-up to resolution recommended. SL: JSYED-H at 0235 Reported and signed by: Jeromy Wolfe M.D. CC: Elina Rome MD; Amilcar Pablo NP Technologist:Josué Granado, RT(R)(CT); Natasha CTDI: DLP: Trnscb Date/Time: 02/16/2020 (234) [email or web address] Orig Print D/T: S: 02/16/2020 (023) PAGE 2 Signed ReportCOMPREHENSIVE METABOLIC [id number] 00:12:00* Test Item Value Reference Range Interpretation [...] = ALKP) 70 IUnit/L 60-350 N MONO [id number] 00:09:00* Test Item Value Reference Range Interpretation Comme nts MONO SCREEN (test code = MONO) NEGATIVE NEGATIVE URINALYSIS [id number] 00:02:00* Test Item Value Reference Range Interpretation [...] MUCU) 1+ /LPF NONE SEEN COMPREHENSIVE METABOLIC [id number] 00:02:00* Test Item Value Reference Range Interpretation [...] code = ALKP) IUnit/L 60-350 CBC W/AUTO [id number] 23:59:00* Test Item Value Reference Range Interpretation [...] (test code = MDIFF) NO UR HCG [id number] 23:56:00* Test Item Value Reference Range Interpretation Comme nts UR HCG QUAL (test code = HCGQLU) NEGATIVE NEGATIVE Notes Date/Time Note Provider Source 2022-11-16 15:41:00 [id number] [place] [address] PATIENT NAME: LUIS EDMONDS ADMIT DATE: 10/30/22 ACCOUNT NO: [id number] ROOM NO: [facility] AGE: 21 REPORT TYPE: 360 - QUERY RESPONSE DOCUMENT SEX: F ADMITTING PHYSICIAN:Luis Burciaga MD ATTENDING PHYSICIAN:Luis Burciaga MD Provider Query QUERY TEXT: Clarification Pathology 360MD Query related questions should be directed to: [facility] Coding Query Hotline Based on your clinical [...] AM at 1541 PATIENT NAME: LUIS EDMONDS [facility] 2022-11-02 15:02:00 [facility] ([facility]) OB Disch REPORT#:[id number] REPORT STATUS: Signed DATE:11/02/22 TIME: 150 PATIENT: LUIS EDMONDS UNIT #: [id number] ROOM/BED: [place] [address] : 02 AGE: 21 SEX: F ATTEND: [...] Additional discharge routines: None at 1504 RPT #:[id number] END OF REPORT [facility] 2022-11-02 14:57:00 [facility] ([facility]) OB Postpart Progr Note REPORT#:[id number] REPORT STATUS: Signed DATE:11/02/22 TIME: 1457 PATIENT: LUIS EDMONDS UNIT #: [id number] ROOM/BED: [place] [address] : 02 AGE: 21 SEX: F ATTEND: [...] routine care, discharge today at 1500 RPT #:[id number] END OF REPORT [facility] 2022-11-01 15:13:00 [facility] ([facility]) OB Postpart Progr Note REPORT#:[id number] REPORT STATUS: Signed DATE:11/01/22 TIME: 1512 PATIENT: LUIS EDMONDS UNIT #: [id number] ROOM/BED: [place] [address] : 02 AGE: 21 SEX: F ATTEND: [...] % (Auto) (14.0 - 32.0 %) 25.7 [place] % (Auto) (4.8 - 9.0 %) 9.7 H Eos % (Auto) (0.3 - 3.7 %) 0.8 Baso % (Auto) (0.0 - 2.0 %) 0.5 Neut # (Auto) (2.0 - 7.6 x10 3/uL) 7.76 H Lymph # (Auto) (1.0 - 3.8 x10 3/uL) 3.17 [place] # (Auto) (0.1 - 0.8 x10 3/uL) [...] progress Plan: routine care at 1514 RPT #:[id number] END OF REPORT [facility] 2022-10-31 15:14:00 [facility] ([facility]) DT History Physical REPORT#:[id number] REPORT STATUS: Signed DATE:10/31/22 TIME: 1514 PATIENT: LUIS EDMONDS UNIT #: [id number] ROOM/BED: [place] [address] : 02 AGE: 21 SEX: F ATTEND: [...] MCH (27.0 - 33.0 pg) 25.9 L 10/300 MCHC (33.0 - 37.0 g/dL) 31.4 L 10/300 RDW (11.5 - 14.5 %) 16.1 H 10/30 1830 Plt Count (150 - 400 x10 3/uL) 289 10/30 1830 MPV (7.0 - 9.0 fL) 11.1 H 10/30 1830 Neut % (Auto) (56.0 - 77.0 %) 62.4 10/30 1830 Lymph % (Auto) (14.0 - 32.0 %) 26.3 10/30 1830 [place] % (Auto) (4.8 - 9.0 %) 9.6 H 10/30 1830 Eos % (Auto) (0.3 - 3.7 %) 0.6 10/30 1830 Baso % (Auto) (0.0 - 2.0 %) 0.3 10/30 1830 Neut # (Auto) (2.0 - 7.6 x10 3/uL) 6.27 10/30 1830 Lymph # (Auto) (1.0 - 3.8 x10 3/uL) 2.65 10/30 1830 [place] # (Auto) (0.1 - 0.8 x10 3/uL) 0.97 H 10/30 183 Eos # (Auto) (0.0 - 0.2 x10 [...] Q4H 10/30 1829 AC 10/31 Potassium/Sodium IV 11/13 1828 0301 Chlor (Penicillin G 2.5MILL UNITS/NS 50ML) Antihistamine Drugs Sig/Victoriano Start time Last Medication Dose Route Stop Time Status Admin Diphenhydramine HCl 12.5 MG Q6H PRN PRN 10/31 0345 AC (BENADRYL) IV 11/30 034 Autonomic Drugs Sig/Victoriano Start time Last Medication Dose Route Stop Time Status Admin Ephedrine Sulfate 10 MG ONCE PRN 10/31 034 AC (ePHEDrine sulfate) IV 12/01 343 Ephedrine [...] PRN 10/31 0345 CKD (NARCAN) IV 11/30 034 Ropivacaine/Fentanyl/ 0 [...] 183 AC 10/30 (LACTATED RINGERS) IV 11/29 182 2314 Gastrointestinal Drugs Sig/Victoriaon Start time Last Medication Dose Route Stop [...] 10/30 183 AC 10/31 (ZOFRAN) IV 11/29 182 1425 Local Anesthetics (Parenteral) Sig/Victoriano Start time [...] 10/30 183 AC (BUPIVACAINE HCL) EPIDURAL 11/29 1829 Oxytocics Sig/Victoriano Start time Last Medication Dose Route Stop Time Status Admin Oxytocin/Sodium 250 ML ASDIR 10/31 0730 AC 10/31 Chloride IV 11/30 0729 0751 (Oxytocin 15 units/ NS 250 mL) Carboprost 250 MCG ONCE PRN 10/30 1830 AC Tromethamine IM 11/29 182 (HEMABATE) Methylergonovine 0.2 MG ONCE PRN 10/30 1830 AC Maleate IM 11/29 182 (METHERGINE) Oxytocin/Sodium [...] 10/31 1129 72.0 10/31 1129 65 99/53 04/15 1127 68 97 / 1122 62 98 04/15 1118 65.0 /15 1118 68 89/47 04 1117 71 97 10/31 1112 68 98 10/31 1107 70 98 10/31 1102 66 98 10/31 1057 79 100 10/31 1052 79 100 04/ 1051 16 10/31 1048 79.0 10/31 1048 68 111/56 04 1047 71 100 04 1046 16 10/31 1042 82.0 04 1042 91 115/59 100 10/31 1041 16 10/31 1037 82.0 10/31 1037 87 112/57 100 10/31 1036 16 10/31 1032 81.0 10/31 1032 92 120/56 100 10/31 1031 17 10/31 1028 78.0 10/31 1028 82 119/61 10/31 1027 84 100 10/31 1022 74 100 10/31 1021 17 10/31 1021 81.0 10/31 1021 68 117/59 10/31 1017 76 100 10/31 1012 75 100 10/31 1007 96 100 /15 0955 84 100 / 0715 36.7 17 10/31 0646 37.0 89 91 /15 0641 73 98 10/31 0305 74.0 10/31 0305 83 100/58 04/15 0201 37.3 04/ 0040 84 100 /15 0035 93 100 /15 0031 95 91 /15 0030 102 100 /15 0025 84 100 /15 0020 90 100 15 0015 91 100 15 0010 101 99 /15 0005 93 100 /15 0000 89 100 10/30 2357 84.0 10/30 2357 93 117/66 04 2356 36.9 04 2355 88 100 14 2350 90 100 14 2349 90 91 [...] 1725 139 117/55 98 at 1514 RPT #:[id number] END OF REPORT [facility] 2022-10-31 15:12:00 [facility] [place] [facility] ([facility]) OB Delivery Note REPORT#:[id number] REPORT STATUS: Signed DATE:10/31/22 TIME: 1512 PATIENT: LUIS EDMONDS UNIT #: [id number] ROOM/BED: [place] [address] : 02 AGE: 21 SEX: F ATTEND: [...] Weight (oz) A: Gender A: 1 minute infant A: 5 minutes A: 10 minutes A: Cord pH obtained A: Vacuum time infant A: Vacuum # pulls A: Vacuum # popoffs A: QBL at delivery: __ Provider comments on imported nursing data: [] Pre-delivery GBS status: GBS status: unknown Prophylaxis administered: penicillin [place] evaluation at delivery: NRP certified personnel Admission [...] infant stable in room at 1514 RPT #:[id number] END OF REPORT [facility] 2022-09-27 16:38:00 [facility] ([facility]) OB Disch Undelivered REPORT#:[id number] REPORT STATUS: Signed DATE:09/27/22 TIME: 1638 PATIENT: BI EDMONDS UNIT #: [id number] ROOM/BED: [place] [address] : 02 AGE: 21 SEX: F ATTEND: [...] Monitor: toco Frequency (description): None Frequency (minutes): GATE GUARD: Normal exteral genitalia Cervical/ exam: Dilatation (cm): [...] understanding will have her follow-up with her INHALATION THERAPY TEACHER. Assessment: no evidence labor Impression: reactive NST [...] timeframe: In 1-2 weeks at 1953 RPT #:[id number] END OF REPORT [facility] 2022-09-27 10:39:00 [facility] ([facility]) OB Antepartum Prog Note REPORT#:[id number] REPORT STATUS: Signed DATE:09/27/22 TIME: 1039 PATIENT: BI EDMONDS UNIT #: [id number] ROOM/BED: [place] [address] : 02 AGE: 21 SEX: F ATTEND: [...] Monitor: toco Frequency (description): none Frequency (minutes): GATE GUARD: Normal exteral genitalia Cervical/ exam: Dilatation (cm): 1 Effacement (%): 50 station: -3 Presentation: Membrane status: FHR evaluation: FHR category: category I Diagnosis, Assessment Plan Diagnosis, Assessment Plan Free text A P: IUP 32 07/25 FFN + Patient found stable, patient evaluated by MFM, he recommends discharge home if no cervical change. Will check her this afternoon. at [facility] RPT #:[id number] END OF REPORT [facility] 2022-09-27 09:19:00 [facility] ([facility]) MF Consultation Note REPORT#:[id number] REPORT STATUS: Signed DATE:09/27/22 TIME: 918 PATIENT: BI EDMONDS UNIT #: [id number] ROOM/BED: [facility] : 02 AGE: 21 SEX: F ATTEND: Luis Burcaiga MD ADM AUTHOR: Kahlil Moore MD * [...] globulin this preg: Monitor mode - UA: [place] units: Feeding preference: Delivery data Delivery date infant A: Delivery time infant A: Birthweight (gm) A: Weight (lb) infant A: Weight (oz) infant A: Gender infant A: 1 minute infant [...] pH (5.0 - 7.0) 5.0 Ur Specific [place] (1.005 - 1.030) 1.033 H Urine Protein [...] with you closely Floor time 50min at 0900 RPT #:[id number] END OF REPORT [facility] 2022-09-27 05:02:00 [facility] ([facility]) OB Admission / H P REPORT#:[id number] REPORT STATUS: Signed DATE:09/27/22 TIME: 0502 PATIENT: BI EDMONDS UNIT #: [id number] ROOM/BED: [place] [address] : 02 AGE: 21 SEX: F ATTEND: [...] Result Date Time B/P Mean 73.0 09/27 318 B/P 99/57 09/27 318 Pulse 88 09/27 318 Pulse Ox 93 03/11 2230 Temp 98.1 09/26 1859 Resp 18 09/26 185 Vital Signs Date Temp Pulse [...] pH (5.0 - 7.0) 5.0 Ur Specific [place] (1.005 - 1.030) 1.033 H Urine Protein [...] dilation Plan: 1. Phone consult called to [facility], Dr Judge. No Celestone is needed ( last course of steroid was given 3+ wk ago on 09-08-22 and 09-09-22 ). No MgSO4 is needed at 32 1/7wks with no contractions. 2. Admit for 23h observation. 3. Will recheck cx in AM. If no contraction or cervical change, will DC home. at 0512 RPT #:[id number] END OF REPORT [facility] 2022-09-26 19:34:00 [facility] ([facility]) OLGA Evaluation Note REPORT#:[id number] REPORT STATUS: Signed DATE:09/26/22 TIME: 1933 PATIENT: BI EDMONDS UNIT #: [id number] ROOM/BED: [place] [address] : 02 AGE: 21 SEX: F ATTEND: [...] CAP PO DAILY 09/07/22 CA/IRON/FA/DHA 2148 (PRENATE ESSENTIAL) Strength: 28 MG IRON-1 MG-300 MG CAP DME - CRUTCHES 03/06/22 (CRUTCH SET) 1617 Strength: 1 ITEM EACH Allergies Uncoded Allergies: MARCUS ACID- THROAT SWELLING (Severe, 08/03/22) Objective General VS: Last Documented: Result Date Time Pulse Ox 98 09/26 1858 Temp 98.1 09/26 1858 Pulse 123 09/26 185 Resp 18 09/26 185 B/P Mean 82.0 09/26 1857 B/P 112/66 09/26 185 Vital Signs Date Temp Pulse Resp B/P B/P Mean Pulse Ox FiO2 09/26 98.1 114-123 18 112/ 82.0 98 PATIENT WEIGHT: Weight (lb): Weight [...] 09/27/22 045 by Zoila Gomez DO At 2152 FHT [...] for 23hr obs. Phone consult called to [facility], Dr Judge. No Celestone is needed ( last course of steroid was given 3+ wk ago on 09-08-22 and 09-09-22 ). No MgSO4 is needed at 32 1/7wks with no contractions. POC dw patient, nurse at 0502 RPT #:[id number] END OF REPORT [facility] 2022-09-26 19:30:00 [facility] ([facility]) OB Medical Screening Exam REPORT#:[id number] REPORT STATUS: Signed DATE:09/26/22 TIME: 1929 PATIENT: BI EDMONDS UNIT #: [id number] ROOM/BED: [place] [address] : 02 AGE: 21 SEX: F ATTEND: Luis Burciaga MD ADM DT: AUTHOR: Gomez,Zoila T DO * ALL edits or amendments must be made on the electronic/computer document * Medical Screening Exam Provider Attestation Comments: Patient was seen at 1920 for contraction, back pain, and decreased FM at 32 1/ 7wks at 1931 RPT #:[id number] END OF REPORT [facility] 2022-09-14 08:43:00 [facility] OB Disch Undelivered REPORT#:[id number] REPORT STATUS: Signed DATE:09/14/22 TIME: 08 PATIENT: LUIS EDMONDS UNIT #: [id number] ROOM/BED: [place] [address] : 02 AGE: 21 SEX: F ATTEND: [...] Additional Discharge Routines: None at 0845 RPT #:[id number] END OF REPORT [facility] 2022-09-14 08:41:00 [facility] ([facility]) OB Antepartum Prog Note REPORT#:[id number] REPORT STATUS: Signed DATE:09/14/22 TIME: 08 PATIENT: LUIS EDMONDS UNIT #: [id number] ROOM/BED: [facility] [place] [place] : 02 AGE: 21 SEX: F ATTEND: [...] labor Plan: discharge home at 0843 RPT #:[id number] END OF REPORT [facility] 2022-09-13 17:53:00 [facility] ([facility]) OB Antepartum Prog Note REPORT#:[id number] REPORT STATUS: Signed DATE:09/13/22 TIME: 1753 PATIENT: LUIS EDMONDS UNIT #: [id number] ROOM/BED: [place] [address] : 02 AGE: 21 SEX: F ATTEND: [...] cord prolapse and delivery of extreme preamature outside hospital decreases at 1802 RPT #:[id number] END OF REPORT [facility] 2022-09-13 09:03:00 [facility] ([facility]) [facility] Progress Note REPORT#:[id number] REPORT STATUS: Signed DATE:09/13/22 TIME: 902 PATIENT: LUIS EDMONDS UNIT #: [id number] ROOM/BED: [place] [address] : 02 AGE: 21 SEX: F ATTEND: [...] closely Floor time 35min at 0911 RPT #:[id number] END OF REPORT [facility] 2022-09-12 08:28:00 [facility] ([facility]) MFM Progress Note REPORT#:[id number] REPORT STATUS: Signed DATE:09/12/22 TIME: 08 PATIENT: LUIS EDMONDS UNIT #: [id number] ROOM/BED: [place] [address] : 02 AGE: 21 SEX: F ATTEND: Luis Burciaga MD ADM AUTHOR: Kahlil Moore MD * ALL edits or amendments must be made on the electronic/computer document * Objective General VS/I O: Last Documented: Result Date Time B/P Mean 71.0 09/12 0740 B/P 100/50 09/12 0740 Pulse 74 09/12 0740 Pulse Ox 99 09/11 2340 Temp 36.6 09/11 2340 Resp 16 09/11 2340 PATIENT WEIGHT: Weight (lb): 172 Weight (oz): [...] closely Floor time 35min at 0834 RPT #:[id number] END OF REPORT [facility] 2022-09-12 01:41:00 [facility] ([facility]) OB Antepartum Prog Note REPORT#:[id number] REPORT STATUS: Signed DATE:09/12/22 TIME: 0141 PATIENT: LUIS EDMONDS UNIT #: [id number] ROOM/BED: [place] [address] : 02 AGE: 21 SEX: F ATTEND: [...] Mean 78.0 09/11 234 Pulse Ox 99 09/111 B/P 116/56 09/11 234 Temp 36.6 09/11 2341 Pulse 127 09/11 [...] Plan: continue current managmnt at 0142 RPT #:[id number] END OF REPORT [facility] 2022-09-11 22:15:00 [facility] ([facility]) OB Antepartum Prog Note REPORT#:[id number] REPORT STATUS: Signed DATE:09/11/22 TIME: 2214 PATIENT: LUIS EDMONDS UNIT #: [id number] ROOM/BED: [place] [address] : 02 AGE: 21 SEX: F ATTEND: [...] Pulse 93 09/11 1908 Resp 16 09/11 1907 Vital Signs Date [...] Plan: continue current managmnt at 2218 RPT #:[id number] END OF REPORT [facility] 2022-09-11 07:18:00 [facility] Madeline Coffman ([facility] Progress Note REPORT#:[id number] REPORT STATUS: Signed DATE:09/11/22 TIME: 717 PATIENT: LUIS EDMONDS UNIT #: [id number] ROOM/BED: [place] [address] : 02 AGE: 21 SEX: F ATTEND: Luis Burciaga MD ADM AUTHOR: Kahlil Moore MD * ALL edits or amendments must be made on the electronic/computer document * Review of Systems All systems rev neg: except as marked Objective General VS/I O: Last Documented: Result Date Time B/P Mean 86.0 09/11 0556 B/P 122/69 09/11 05 Pulse 82 09/11 05 Pulse Ox 97 09/10 603 Temp 36.8 09/10 603 Resp 16 09/10 06 PATIENT WEIGHT: Weight (lb): 172 Weight (oz): [...] pH (5.0 - 7.0) 6.0 Ur Specific [place] (1.005 - 1.030) 1.019 Urine Protein (NEGATIVE) [...] closely Floor time 35min at 0724 RPT #:[id number] END OF REPORT [facility] 2022-09-10 13:12:00 [facility] ([facility]) [facility] Progress Note REPORT#:[id number] REPORT STATUS: Signed DATE:09/10/22 TIME: 1312 PATIENT: LUIS EDMONDS UNIT #: [id number] ROOM/BED: [place] [address] : 02 AGE: 21 SEX: F ATTEND: [...] closely Floor time 35min at 1325 RPT #:[id number] END OF REPORT [facility] 2022-09-10 08:19:00 [facility] ([facility]) OB Antepartum Prog Note REPORT#:[id number] REPORT STATUS: Signed DATE:09/10/22 TIME: 818 PATIENT: LUIS EDMONDS UNIT #: [id number] ROOM/BED: [place] [address] : 02 AGE: 21 SEX: F ATTEND: [...] Plan: continue current managmnt at 0820 RPT #:[id number] END OF REPORT [facility] 2022-09-09 12:03:00 [facility] ([facility]) OB Admission / H P REPORT#:[id number] REPORT STATUS: Signed DATE:09/09/22 TIME: 120 PATIENT: LUIS EDMONDS UNIT #: [id number] ROOM/BED: [place] [address] : 02 AGE: 21 SEX: F ATTEND: Luis Burciaga MD ADM AUTHOR: Juany Carrillo MD * ALL edits or amendments must be made on the electronic/computer document * OB History Notes: [facility] ([facility]) [place] Evaluation Note REPORT#:[id number] REPORT STATUS: Signed DATE:09/07/22 TIME: 2242 PATIENT: LUIS EDMONDS UNIT #: [id number] ROOM/BED: [place] [address] : 02 AGE: 21 SEX: F ATTEND: [...] Pulse 86 09/07 2141 B/P Mean 84.0 09/071 B/P 120/60 09/07 2130 Vital Signs Date [...] Calf tenderness: negative Results Findings/Data: Laboratory Tests: 09/078 2125 Other Body Source Membrane Rupture (NEGATIVE) POSITIVE H Urines Urine Color (YEL/STRAW) STRAW Urine Appearance (CLEAR) CLEAR Urine pH (5.0 - 7.0) 7.0 Ur Specific [place] (1.005 - 1.030) 1.006 Urine Protein (NEGATIVE) [...] spent on counseling/coordination of care: yes at 0542 RPT #:[id number] END OF REPORT Past History Allergies: Uncoded Allergies: MARCUS ACID- THROAT SWELLING (Severe, 08/03/22) at 1207 RPT #:[id number] END OF REPORT [facility] 2022-09-09 09:03:00 [facility] ([facility] OB Antepartum Prog Note REPORT#:[id number] REPORT STATUS: Signed DATE:09/09/22 TIME: 09 PATIENT: LUIS EDMONDS UNIT #: [id number] ROOM/BED: [place] [id number] : 02 AGE: 21 SEX: F ATTEND: [...] Pulse Ox 91 09/09 0056 Resp 16 09/089 Temp 36.8 09/08 1949 Vital Signs Date [...] Plan: continue current managmnt at 0906 RPT #:[id number] END OF REPORT [facility] 2022-09-09 08:58:00 [facility] ([facility]) OB Antepartum Prog Note REPORT#:[id number] REPORT STATUS: Signed DATE:09/09/22 TIME: 0858 PATIENT: LUIS EDMONDS UNIT #: [id number] ROOM/BED: [place] [id number] : 02 AGE: 21 SEX: F ATTEND: [...] Assessment: PPROM Plan: continue current managmnt at 0872 RPT #:[id number] END OF REPORT [facility] 2022-09-09 07:45:00 [facility] ([facility]) MFM Progress Note REPORT#:[id number] REPORT STATUS: Signed DATE:09/09/22 TIME: 0745 PATIENT: LUIS EDMONDS UNIT #: [id number] ROOM/BED: [place] [address] : 02 AGE: 21 SEX: F ATTEND: [...] closely Floor time 35min at 0748 RPT #:[id number] END OF REPORT [facility] 2022-09-08 17:21:00 [facility] ([facility]) MFM Consultation Note REPORT#:[id number] REPORT STATUS: Signed DATE:09/08/22 TIME: 1721 PATIENT: LUIS EDMONDS UNIT #: [id number] ROOM/BED: [place] [address] : 02 AGE: 21 SEX: F ATTEND: [...] % (Auto) (14.0 - 32.0 %) 31.0 [place] % (Auto) (4.8 - 9.0 %) 8.1 Eos % (Auto) (0.3 - 3.7 %) 0.8 Baso % (Auto) (0.0 - 2.0 %) 0.3 Neut # (Auto) (2.0 - 7.6 x10 3/uL) 6.16 Lymph # (Auto) (1.0 - 3.8 x10 3/uL) 3.22 Denali # (Auto) (0.1 - 0.8 x10 3/uL) [...] 2 Antibody Screen (Nonreactive) Nonreactive Laboratory Tests 09/075 Urines Urine Color (YEL/STRAW) STRAW Urine Appearance (CLEAR) CLEAR Urine pH (5.0 - 7.0) 7.0 Ur Specific [place] (1.005 - 1.030) 1.006 Urine Protein (NEGATIVE) [...] reviewed Sono today: vtx, ant. placenta, EFW [id number] (1574g, 68%ile), nl range ISMA 15.4, nl [...] closely Floor time 80min at 1731 RPT #:[id number] END OF REPORT [facility] 2022-09-07 22:44:00 [facility] ([facility]) OB Medical Screening Exam REPORT#:[id number] REPORT STATUS: Signed DATE:09/07/22 TIME: 4 PATIENT: LUIS EDMONDS UNIT #: [id number] ROOM/BED: [place] [address] : 02 AGE: 21 SEX: F ATTEND: Luis Burciaga MD ADM AUTHOR: Juany Carrillo MD * ALL edits or amendments must be made on the electronic/computer document * Medical Screening Exam Provider Attestation Attestation: The QMP MSE reviewed. Notified at 7444 Physician at bedside 3832 Comments: 21 y/o female at 29-3/7 weeks who presents after several gushes of clear fluid from the vagina. Patient is certain that she did not leak urine. at 0557 RPT #:[id number] END OF REPORT [facility] 2022-09-07 22:43:00 [facility] ([facility]) OLGA Evaluation Note REPORT#:[id number] REPORT STATUS: Signed DATE:09/07/22 TIME: 2242 PATIENT: LUIS EDMONDS UNIT #: [id number] ROOM/BED: [place] [address] : 02 AGE: 21 SEX: F ATTEND: [...] pH (5.0 - 7.0) 7.0 Ur Specific [place] (1.005 - 1.030) 1.006 Urine Protein (NEGATIVE) [...] counseling/coordination of care: yes at 0549 RPT #:[id number] END OF REPORT [facility] 2022-08-06 11:00:00 [facility] ([facility]) OB Medical Screening Exam REPORT#:[id number] REPORT STATUS: Signed DATE:08/06/22 TIME: 1100 PATIENT: LUIS EDMONDS UNIT #: [id number] ROOM/BED: : 02 AGE: 21 SEX: F ATTEND: Effie Solitario MD ADM AUTHOR: Effie Solitario MD * ALL edits or amendments must be made on the electronic/computer document * Medical Screening Exam Provider Attestation Attestation: The QMP MSE reviewed. DATE 08/03/2019 Notified at 1523 Provider at bedside at 1523 Comments: 21 Y/O IUP 24 2/7 presents due to cramping. at 1101 RPT #:[id number] END OF REPORT [facility] 2022-08-06 11:00:00 [facility] ([facility]) OLGA Evaluation Note REPORT#:[id number] REPORT STATUS: Signed DATE:08/06/22 TIME: 1100 PATIENT: LUIS EDMONDS UNIT #: [id number] ROOM/BED: : 02 AGE: 21 SEX: F ATTEND: Effie Solitario MD ADM AUTHOR: Effie Solitario MD * ALL edits or amendments must be made on the electronic/computer document * OLGA History Chief complaint: cramping HPI: 21 Y/O IUP 24 2 presents due to cramping. She refers good [...] Monitor: toco Frequency (description): None Frequency (minutes): GATE GUARD: Normal exteral genitalia Cervical/ exam: Speculum exam: [...] and FFN negative 21 y/o IUP 24 08/25 presents due to cramping. FFN and UA negative. Patent found to be hemodynamically stable with normal vital signs, category I strip and found not to be in labor. 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 Assessment: no evidence labor Impression: reactive NST Plan: discharge home Plan discussed with: patient, nurse at 1106 RPT #:[id number] END OF REPORT [facility] 2022-03-06 16:08:00 [facility] ([facility]) emergency provider report report#:[id number] report status: signed date:03/06/22 time: 1608 patient: luis edmonds unit #: [id number] room/bed: age: 21 sex: f pcp phys: [...] fractures or dislocation impression by: kristian pickering m.d. radiology - xr ankle 3 [...] asdir dme - crutches (crutch set) [facility] of choice patient instructions ed ankle sprain (adult), ed foot sprain, ed rice referrals provider referral: cheli gamino md follow-up: as needed notes: orthopedic surgeon address: [address] [place] [phone] provider group: primary care follow-up: 1 week [...] chavez md on 03/06/22 at 1747 rpt #:[id number] end of report [facility] 2021-11-11 00:46:00 [facility] ([facility]) EMERGENCY PROVIDER REPORT REPORT#:[id number] REPORT STATUS: Signed DATE:11/11/21 TIME: 0046 PATIENT: LUIS EDMONDS UNIT #: [id number] ROOM/BED: AGE: 20 SEX: F PCP PHYS: [...] 11/11 0053 O2 Delivery Room air 11/11 005 Temp 36.4 11/11 0053 Pulse 76 11/11 [...] pH (5.0 - 7.0) 7 Ur Specific [place] (1.005 - 1.030) 1.010 POC Urine Protein [...] Room air 11/11 17 Temp 36.4 11/11 0018 Pulse 81 11/11 0018 Resp 18 11/118 Last Documented: Result Date Time Pulse Ox 100 11/11 0053 B/P 116/62 11/11 0053 B/P Mean 80 11/11 0053 O2 Delivery Room air 11/11 52 Temp 36.4 11/11 0053 Pulse 76 11/113 Resp 18 11/11 52 All vital signs [...] a call to 911. at 0107 RPT #:[id number] END OF REPORT [facility] 2021-08-08 22:23:00 [facility] ([facility]) EMERGENCY PROVIDER REPORT REPORT#:[id number] REPORT STATUS: Signed DATE:08/08/21 TIME: 2222 PATIENT: LUIS EDMONDS UNIT #: [id number] ROOM/BED: AGE: 20 SEX: F PCP PHYS: [...] department or a call to 911. at [address] [place] [address] #:[phone] END OF REPORT [facility] 2021-03-28 09:04:00 [facility] ([facility]) OB Disch REPORT#:[id number] REPORT STATUS: Signed DATE:03/28/21 TIME: 903 PATIENT: LUIS EDMONDS UNIT #: [id number] ROOM/BED: [facility] : 02 AGE: 20 SEX: F [...] comments. Delivery date A: 03/26/21 Delivery time A: 1807 Birthweight (gm) infant A: 3200 Feeding preference: Gender A: Female 1 minute infant A: 8 5 minutes A: 9 10 minutes infant A: Provider comments on imported nursing data: [] Plan: routine care, discharge today Discharge Instructions Instructions: routine instr sheet given Diet: Resume Home Diet/Feeds Activity: Resume Normal Activity Additional discharge routines: None at 0905 [facility] #:[id number] END OF REPORT [facility] 2021-03-28 09:03:00 [facility] ([facility]) OB Postpart Progr Note REPORT#:[id number] REPORT STATUS: Signed DATE:03/28/21 TIME: 902 PATIENT: LUIS EDMONDS UNIT #: [id number] ROOM/BED: [place] [address] : 02 AGE: 20 SEX: F ATTEND: Luis Burciaga MD ADM AUTHOR: Luis Burcigaa MD * ALL edits or amendments must [...] 120/67 97 03/27 1120 37.0 69 17 108/ 97 PATIENT WEIGHT: Weight (lb): 179 Weight (oz): Weight (kg): 81.193 Physical Exam Abdomen: soft, no abnormal tenderness, no guarding Uterus: involution appropriate, non-tender Fundus: firm, below the umbilicus Lochia: normal Lacerations: Perineal laceration(s): None Lower extremities: Edema: none Colleen's sign: negative Calf tenderness: negative Diagnosis, Assessment Plan Diagnosis, Assessment Plan Assessment: nml progress Plan: routine care, discharge today at 0904 RPT #:[id number] END OF REPORT [facility] 2021-03-27 09:21:00 [facility] ([facility]) OB Postpart Progr Note REPORT#:[id number] REPORT STATUS: Signed DATE:03/27/21 TIME: 920 PATIENT: LUIS EDMONDS UNIT #: [id number] ROOM/BED: [place] [address] : 02 AGE: 20 SEX: F ATTEND: [...] 03/27 0734 36.9 74 17 124/82 97 09/ 0440 36.9 69 16 116/75 99 09/09 [...] % (Auto) (14.0 - 32.0 %) 24.9 Denali % (Auto) (4.8 - 9.0 %) 9.4 H Eos % (Auto) (0.3 - 3.7 %) 0.6 Baso % (Auto) (0.0 - 2.0 %) 0.2 Neut # (Auto) (2.0 - 7.6 x10 3/uL) 8.09 H Lymph # (Auto) (1.0 - 3.8 x10 3/uL) 3.13 [place]ali # (Auto) (0.1 - 0.8 x10 3/uL) [...] progress Plan: routine care at 0922 RPT #:[id number] END OF REPORT [facility] 2021-03-26 18:49:00 [facility]) OB Delivery Note REPORT#:[id number] REPORT STATUS: Signed DATE:03/26/21 TIME: 1848 PATIENT: LUIS EDMONDS UNIT #: [id number] ROOM/BED: [place] [address] : 02 AGE: 20 SEX: F ATTEND: [...] infant A: 03/26/21 Delivery time infant A: 1807 Birthweight (gm) A: 3200 Weight (lb) infant A: Weight [...] loss at delivery: 50 at 1852 RPT #:[id number] END OF REPORT [facility] 2021-03-26 08:25:00 [facility] ([facility]) DT History Physical REPORT#:[id number] REPORT STATUS: Signed DATE:03/26/21 TIME: 824 PATIENT: LUIS EDMONDS UNIT #: [id number] ROOM/BED: [place] [address] : 02 AGE: 20 SEX: F ATTEND: Luis Burciaga MD ADM AUTHOR: Luis Burciaga MD * ALL edits or amendments must be made on the electronic/computer document * History Physical History Physical Please care records and office H P at 2112 RPT #:[id number] END OF REPORT [facility] 2021-03-12 21:16:00 [facility] ([facility]) OB Medical Screening Exam REPORT#:[id number] REPORT STATUS: Signed DATE:03/12/21 TIME: 2115 PATIENT: LUIS EDMONDS UNIT #: [id number] ROOM/BED: : 02 AGE: 20 SEX: F ATTEND: Effie Solitario MD ADM AUTHOR: Effie Solitario MD * ALL edits or amendments must be made on the electronic/computer document * Medical Screening Exam Provider Attestation Attestation: The QMP MSE reviewed. Provider at bedside at 2113 Comments: 20 y/o GP0 IUP 35 4/7 presents due to leaking of fluid and contractions. at 2152 RPT #:[id number] END OF REPORT [facility] 2021-03-12 21:16:00 [facility] OLGA Evaluation Note REPORT#:[id number] REPORT STATUS: Signed DATE:03/12/21 TIME: 2115 PATIENT: LUIS EDMONDS UNIT #: [id number] ROOM/BED: [facility] : 02 AGE: 20 SEX: F ATTEND: Effie Solitario MD ADM AUTHOR: Effie Solitario MD * ALL edits or amendments must be made on the electronic/computer document * OLGA History Chief complaint: uterine contractions, suspected ruptured memb HPI: 20 y/o GP0 IUP 35 / presents due to leaking of fluid and [...] toco Frequency (description): uterine irritability Frequency (minutes): 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 Will send UA and amnisure. Re-evaluation 223 Ordered BPP 2355 Awaiting BPP results. 0050 Still awaiting BPP results 010 BPP 8 ISMA 8, no cervical change 20 y/o GP0 IUP 35 4/7 presented due to leaking of fluid and contractions, amnisure negative. Patent found to be hemodynamically stable with normal vital signs, category I strip and found not to be in labor. 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 Assessment: no evidence labor Impression: reactive NST Plan: discharge home Plan discussed with: patient, nurse at 0104 RPT #:[id number] END OF REPORT [facility] 2021-03-01 06:09:00 [facility] OLGA Evaluation Note REPORT#:[id number] REPORT STATUS: Signed DATE:03/01/21 TIME: 06 PATIENT: LUIS EDMONDS UNIT #: [id number] ROOM/BED: [place] [address] : 02 AGE: 20 SEX: F ATTEND: [...] Documented: Result Date Time B/P Mean 85.0 / 0542 B/P 111/72 08/ 0542 Pulse 106 / 0542 Temp 98.1 08/ 0540 Resp 16 08/ 0540 Vital Signs Date Temp Pulse Resp B/P B/P Mean Pulse Ox FiO2 / 98.1 106 16 111/72 85.0 PATIENT WEIGHT: Weight (lb): Weight (oz): Weight (kg): Physical Exam Additional comments: Gen: AAOx3 Lungs: normal respiratory effort Neuro: Exam: alert, oriented x3 Abdomen: gravid, soft Uterine activity: Monitor: toco Frequency (description): irregular Frequency (minutes): GATE GUARD: Normal exteral genitalia Cervical/ exam: Dilatation (cm): [...] AT HER APT WEDNESDAY. at 0854 RPT #:[id number] END OF REPORT [facility] 2021-03-01 06:09:00 [facility] ([facility]) OB Medical Screening Exam REPORT#:[id number] REPORT STATUS: Signed DATE:03/01/21 TIME: 608 PATIENT: LUIS EDMONDS UNIT #: [id number] ROOM/BED: [place] [address] : 02 AGE: 20 SEX: F ATTEND: Luis Burciaga MD ADM AUTHOR: Effie Solitario MD * ALL edits or amendments must be made on the electronic/computer document * Medical Screening Exam Provider Attestation Attestation: The QMP MSE reviewed. Provider at bedside at 0600 Comments: IUP 34 0/7 presents due to decreased movements and pelvic pressure. at 0643 RPT #:[id number] END OF REPORT [facility] 2021-03-01 06:09:00 [facility]) OLGA Evaluation Note REPORT#:[id number] REPORT STATUS: Signed DATE:03/01/21 TIME: 608 PATIENT: LUIS EDMONDS UNIT #: [id number] ROOM/BED: [place] [address] : 02 AGE: 20 SEX: F ATTEND: [...] Monitor: toco Frequency (description): irregular Frequency (minutes): GATE GUARD: Normal exteral genitalia Cervical/ exam: Dilatation (cm): [...] assume care at 0700 at 0647 RPT #:[id number] END OF REPORT [facility] 2021-02-17 15:34:00 [facility] ([facility]) OB Medical Screening Exam REPORT#:[id number] REPORT STATUS: Signed DATE:02/17/21 TIME: 1533 PATIENT: LUIS EDMONDS UNIT #: [id number] ROOM/BED: [place] [address] : 02 AGE: 20 SEX: F ATTEND: Effie Solitario MD ADM DT: AUTHOR: Effie Solitario MD * ALL edits or amendments must be made on the electronic/computer document * Medical Screening Exam Provider Attestation Attestation: The QMP MSE reviewed. Provider at bedside at 1537 Comments: 20 y/o IUP 32 2/7 presents due to gush of fluids and cramping. at 1615 RPT #:[id number] END OF REPORT [facility] 2021-02-17 15:34:00 [facility] ([facility]) OLGA Evaluation Note REPORT#:[id number] REPORT STATUS: Signed DATE:02/17/21 TIME: 1533 PATIENT: LUIS EDMONDS UNIT #: [id number] ROOM/BED: : 02 AGE: 20 SEX: F [...] Last Documented: Result Date Time Temp 98.3 08/ 1536 Resp 16 02/17 1536 B/P Mean [...] Monitor: toco Frequency (description): none Frequency (minutes): GATE GUARD: Normal exteral genitalia Cervical/ exam: Speculum exam: [...] understanding will have her follow-up with her INHALATION THERAPY TEACHER. Assessment: no evidence labor Impression: reactive NST Plan: discharge home Plan discussed with: patient, nurse at 1950 RPT #:[id number] END OF REPORT [facility] 2021-02-12 21:22:00 [facility] ([facility] OB Medical Screening Exam REPORT#:[id number] REPORT STATUS: Signed DATE:02/12/21 TIME: 2121 PATIENT: LUIS EDMONDS UNIT #: [id number] ROOM/BED: : 02 AGE: 20 SEX: F [...] nausea and decreased movements. at 0915 RPT #:[id number] END OF REPORT [facility] 2021-02-12 21:21:00 [facility] ([facility]) OLGA Evaluation Note REPORT#:[id number] REPORT STATUS: Signed DATE:02/12/21 TIME: 2120 PATIENT: LUIS EDMONDS UNIT #: [id number] ROOM/BED: : 02 AGE: 20 SEX: F ATTEND: Effie Solitario MD ADM DT: AUTHOR: Effie Solitario MD * ALL edits or amendments must be made on the electronic/computer document * [facility] History Chief complaint: uterine contractions, nausea, abdominal [...] Monitor: toco Frequency (description): none Frequency (minutes): GATE GUARD: Normal exteral genitalia Cervical/ exam: Speculum exam: no discharge Dilatation (cm): closed Effacement (%): thick station: high FHR evaluation: FHR category: category I Results Findings/Data: Laboratory Tests: 02/12 Miscellaneous Fibronectin (NEGATIVE) NEGATIVE Urines Urine Color (YEL/STRAW) YELLOW Urine Appearance (CLEAR) CLEAR Urine pH (5.0 - 7.0) 6.0 Ur Specific [place] (1.005 - 1.030) 1.006 Urine Protein (NEGATIVE) [...] understanding will have her follow-up with her INHALATION THERAPY TEACHER. Assessment: no evidence labor Impression: reactive NST Plan: discharge home Plan discussed with: patient, nurse at 0921 RPT #:[id number] END OF REPORT [facility] 2021-01-29 03:41:00 [facility] ([facility]) OLGA Evaluation Note REPORT#:[id number] REPORT STATUS: Signed DATE:01/29/21 TIME: 034 PATIENT: LUIS EDMONSD UNIT #: [id number] ROOM/BED: [place] [address] : 02 AGE: 20 SEX: F ATTEND: [...] 1 TAB PO DAILY 12/25/20 01/29/21 FUMARATE/FA 2006 2622 () Strength: 1 EACH TAB Allergies Uncoded [...] tenderness: negative Results Findings/Data: Laboratory Tests: 01/29 030 Urines Urine Color (YEL/STRAW) YELLOW Urine Appearance (CLEAR) CLOUDY H Urine pH (5.0 - 7.0) 7.0 Ur Specific [place] (1.005 - 1.030) 1.010 Urine Protein (NEGATIVE) [...] f/u as scheduled with primary OB in [place], [place] at 0355 RPT #:[id number] END OF REPORT [facility] 2021-01-29 03:39:00 [facility] ([facility]) OB Medical Screening Exam REPORT#:[id number] REPORT STATUS: Signed DATE:01/29/21 TIME: 338 PATIENT: LUIS EDMONDS UNIT #: [id number] ROOM/BED: [place] [address] : 02 AGE: 20 SEX: F ATTEND: [...] no lof/rom. no vb. at 0341 RPT #:[id number] END OF REPORT [facility] 2020-12-25 16:25:00 [facility] ([facility]) OL[place] Evaluation Note REPORT#:[id number] REPORT STATUS: Signed DATE:12/25/20 TIME: 1624 PATIENT: LUIS EDMONDS UNIT #: [id number] ROOM/BED: [place] [address] : 02 AGE: 20 SEX: F ATTEND: [...] She was told in prior u/s at [facility] that ISMA was low, she did [...] B/P Mean 86.0 12/25 1521 B/P 117/68 06/09 1521 Vital Signs Date Temp Pulse Resp [...] for cxn. Will f/u at 1632 RPT #:[id number] END OF REPORT [facility] 2020-12-25 16:25:00 [facility] ([facility]) OLGA Evaluation Note REPORT#:[id number] REPORT STATUS: Signed DATE:12/25/20 TIME: 162 PATIENT: LUIS EDMONDS UNIT #: [id number] ROOM/BED: [place] [address] : 02 AGE: 20 SEX: F ATTEND: [...] She was told in prior u/s at [facility] that ISMA was low, she did [...] B/P Mean 86.0 12/25 1521 B/P 117/68 06/09 1521 Vital Signs Date Temp Pulse Resp [...] her OB this week. at 1807 RPT #:[id number] END OF REPORT [facility] 2020-12-25 16:24:00 [facility] ([facility]) OB Medical Screening Exam REPORT#:[id number] REPORT STATUS: Signed DATE:12/25/20 TIME: 162 PATIENT: LUIS EDMONDS UNIT #: [id number] ROOM/BED: 304 : 02 AGE: 20 SEX: F ATTEND: Pearl Chavez DO ADM AUTHOR: Pearl Chavez DO * ALL edits or amendments must be made on the electronic/computer document * Medical Screening Exam Provider Attestation Comments: Pt triaged at 1610. at 1625 RPT #:[id number] END OF REPORT [facility] 2020-11-23 00:54:00 [facility] ([facility]) OB Triage Visit REPORT#:[id number] REPORT STATUS: Signed DATE:11/23/20 TIME: 53 PATIENT: LUIS EDMONDS UNIT #: [id number] ROOM/BED: [place] [address] : 02 AGE: 19 SEX: F ATTEND: [...] and reassured. Patient recieves PNC at the [facility]. Did not need to wear a [...] type ordered Ultrasound complete at 0107 RPT #:[id number] END OF REPORT [facility] 2020-10-05 03:31:00 [facility] ([facility]) EMERGENCY PROVIDER REPORT REPORT#:[id number] REPORT STATUS: Signed DATE:10/05/20 TIME: 033 PATIENT: LUIS EDMONDS UNIT #: [id number] ROOM/BED: AGE: 19 SEX: F PCP PHYS: [...] air 10/05 0139 Temp 37.2 10/05 0139 Review of Vital Signs Reviewed, Vital signs [...] Diagnostics Lab Results Interpretation Results Laboratory Tests 10/05/20 0210: [Embedded Image Not Available] Laboratory Tests: 10/05 [...] % (Auto) (28.0 - 48.0 %) 33.4 [place] % (Auto) (3.0 - 15.0 %) 6.3 Eos % (Auto) (1.0 - 8.0 %) 1.1 Baso % (Auto) (0.0 - 2.0 %) 0.5 Neut # (Auto) (2.0 - 3.2 x10 3/uL) 7.28 H Lymph # (Auto) (1.0 - 3.8 x10 3/uL) 4.17 H [place] # (Auto) (0.1 - 0.8 x10 3/uL) [...] x10 3/uL) 0.00 Miscellaneous Maternal Serum HCG 69444.3 Urines Urine Color (YEL/STRAW) YELLOW Urine Appearance (CLEAR) CLEAR Urine pH (5.0 - 7.0) 5.0 Ur Specific [place] (1.005 - 1.030) 1.017 Urine Protein (NEGATIVE) [...] Room air 10/05 013 Temp 37.2 10/05 0139 Pulse 99 10/05 0139 Resp 18 10/05 0139 Last Documented: Result Date Time Pulse Ox 99 10/05 0401 B/P 108/65 10/05 0401 B/P Mean 79 10/05 0401 Pulse 81 10/05 0401 Resp 16 10/05 0401 O2 Delivery Room air 10/05 138 Temp 37.2 10/05 013 All vital signs available at the time of this entry have been reviewed. Condition Improved Clinical Impression Clinical Impression Primary Impression: Threatened Disposition Decision Discharge )( Discharged to Home Yes )( Time 0333 )( Date 10/05/20 Discharge/Care Plan Counseled Regarding [...] ... Additional Instructions TYLENOL DIRECTED at [address] [facility] #:[id number] END OF REPORT [facility] 2020-08-22 20:42:00 [facility] ([facility]) EMERGENCY PROVIDER REPORT REPORT#:[id number] REPORT STATUS: Signed DATE:08/22/20 TIME: 2041 PATIENT: LUIS EDMONDS UNIT #: [id number] ROOM/BED: AGE: 19 SEX: F PCP PHYS: Elina Rome MD SERVICE AUTHOR: Cathy Bruce * ALL edits or amendments must be made on the electronic/computer document * HPI- Female Free Text HPI Notes Free Text HPI Notes 19-year-old female G1, 6 weeks EGA with LMP12/21 presents to ED after positive test medical staff specialist'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 She reports associated nausea, vomiting, lower pelvic cramping after "stressful conversations.". She denies dysuria, hematuria, vaginal bleeding or discharge. General Confirmed Patient Yes Initial Greet Date/Time 08/22/202017 Presentation Chief Complaint Pelvic pain Hx Obtained [...] No palpable masses or pulsetile masses. Negative [place] Sign. No TTP at [place] Ext: [...] % (Auto) (28.0 - 48.0 %) 30.6 [place] % (Auto) (3.0 - 15.0 %) 5.9 Eos % (Auto) (1.0 - 8.0 %) 0.6 L Baso % (Auto) (0.0 - 2.0 %) 0.7 Neut # (Auto) (2.0 - 3.2 x10 3/uL) 6.51 H Lymph # (Auto) (1.0 - 3.8 x10 3/uL) 3.22 [place] # (Auto) (0.1 - 0.8 x10 3/uL) [...] x10 3/uL) 0.00 Miscellaneous Maternal Serum HCG 40482.6 Urines Urine Color (YEL/STRAW) STRAW Urine Appearance (CLEAR) CLEAR Urine pH (5.0 - 7.0) 6.0 Ur Specific [place] (1.005 - 1.030) 1.008 Urine Protein (NEGATIVE) [...] a call to 911. at 2346 RPT #:[id number] END OF REPORT [facility] 2020-08-22 20:42:00 [facility] ([facility] EMERGENCY PROVIDER REPORT REPORT#:[id number] REPORT STATUS: Signed DATE:08/22/20 TIME: 2041 PATIENT: LUIS EDMONDS UNIT #: [id number] ROOM/BED: AGE: 19 SEX: F PCP PHYS: Elina Rome MD SERVICE AUTHOR: Cathy Bruce * ALL edits or amendments must be made on the electronic/computer document * Cathy Bruce 08/22/202041: HPI- Female Free Text HPI Notes Free Text HPI Notes 19-year-old female G1, 6 weeks EGA with LMP109/08 presents to ED after positive test medical staff specialist'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 She reports associated nausea, [...] 83 08/22 2040 O2 Delivery Room air 02/04 2041 Temp 37.0 08/22 2040 Pulse 99 08/22 [...] No palpable masses or pulsetile masses. Negative [place] Sign. No TTP at [place] Ext: [...] % (Auto) (28.0 - 48.0 %) 30.6 [place] % (Auto) (3.0 - 15.0 %) 5.9 Eos % (Auto) (1.0 - 8.0 %) 0.6 L Baso % (Auto) (0.0 - 2.0 %) 0.7 Neut # (Auto) (2.0 - 3.2 x10 3/uL) 6.51 H Lymph # (Auto) (1.0 - 3.8 x10 3/uL) 3.22 Denali # (Auto) (0.1 - 0.8 x10 3/uL) [...] x10 3/uL) 0.00 Miscellaneous Maternal Serum HCG 45590.6 Urines Urine Color (YEL/STRAW) STRAW Urine Appearance (CLEAR) CLEAR Urine pH (5.0 - 7.0) 6.0 Ur Specific [place] (1.005 - 1.030) 1.008 Urine Protein (NEGATIVE) [...] B/P 120/68 08/22 2241 B/P Mean 85 02/04 2242 O2 Delivery Room air 08/22 2241 Temp [...] emergency department or a call to 911. oLi Hassan 08/24/20 2338: HPI- Female General Initial Greet Date/Time 08/22/20 2018 Patient Discharge Departure Supervising Physician Note MidLv Saw Pt Alone I have reviewed the PA/WEAVER TIRE CORD's note and plan of care. I was available for consultation as needed at all times during the patient's visit in the emergency department. I agree with the clinical impression, plan and disposition. at [phone] at 3724 [facility] #:[id number] END OF REPORT [facility] 2020-02-15 23:20:00 [facility] ([facility]) EMERGENCY PROVIDER REPORT REPORT#:[id number] REPORT STATUS: Signed DATE:02/15/20 TIME: 2319 PATIENT: LUIS EDMONDS UNIT #: [id number] ROOM/BED: AGE: 19 SEX: F PCP PHYS: Elina Rome MD SERVICE AUTHOR: Amilcar Pablo WEAVER TIRE CORD * ALL edits or amendments must be [...] Covid exposures. General Initial Greet Date/Time 02/15/20 2255 Presentation Chief Complaint Fever, Sore throat Hx [...] (Auto) (28.0 - 48.0 %) 13.9 L [place] % (Auto) (3.0 - 15.0 %) 10.0 Eos % (Auto) (1.0 - 8.0 %) 0.0 L Baso % (Auto) (0.0 - 2.0 %) 0.4 Neut # (Auto) (2.0 - 3.2 x10 3/uL) 9.16 H Lymph # (Auto) (1.0 - 3.8 x10 3/uL) 1.70 Denali # (Auto) (0.1 - 0.8 x10 3/uL) [...] pH (5.0 - 7.0) 6.0 Ur Specific [place] (1.005 - 1.030) 1.015 Urine Protein (NEGATIVE) [...] STA 02/15 2312 DC 02/14 Phosphate IV 02/143 2321 Gastrointestinal Drugs Sig/Victoriano Start time Last [...] Elina Rome MD (PCP/Family) at 0332 RPT #:[id number] END OF REPORT [facility] 2020-02-15 23:20:00 [facility] ([facility]) EMERGENCY PROVIDER REPORT REPORT#:[id number] REPORT STATUS: Signed DATE:02/15/20 TIME: 2319 PATIENT: LUIS EDMONDS UNIT #: [id number] ROOM/BED: AGE: 19 SEX: F PCP PHYS: Elina Rome MD SERVICE AUTHOR: Amilcar Pablo WEAVER TIRE CORD * ALL edits or amendments must be [...] (Auto) (28.0 - 48.0 %) 13.9 L [place] % (Auto) (3.0 - 15.0 %) 10.0 Eos % (Auto) (1.0 - 8.0 %) 0.0 L Baso % (Auto) (0.0 - 2.0 %) 0.4 Neut # (Auto) (2.0 - 3.2 x10 3/uL) 9.16 H Lymph # (Auto) (1.0 - 3.8 x10 3/uL) 1.70 [place] # (Auto) (0.1 - 0.8 x10 3/uL) [...] pH (5.0 - 7.0) 6.0 Ur Specific [place] (1.005 - 1.030) 1.015 Urine Protein (NEGATIVE) [...] STA 02/15 2312 DC 02/14 Phosphate IV 02/143 2321 Gastrointestinal Drugs Sig/Victoriano Start time Last Medication Dose Route Stop Time Status Admin Ondansetron HCl 4 MG X1ED STA 02/15 2312 DC 02/14 IV 02/14 2313 2321 Patient [...] Saw Pt Alone I have reviewed the PA/WEAVER TIRE CORD's note and plan of care. I was available for consultation as needed at all times during the patient's visit in the emergency department. I agree with the clinical impression, plan and disposition. at 0332 RPT #:[id number] END OF REPORT [facility] 2020-02-15 23:20:00 [facility] ([facility]) EMERGENCY PROVIDER REPORT REPORT#:[id number] REPORT STATUS: Signed DATE:02/15/20 TIME: 2319 PATIENT: LUIS EDMONDS UNIT #: [id number] ROOM/BED: AGE: 19 SEX: F PCP PHYS: Elina Rome MD SERVICE AUTHOR: Amilcar Pablo WEAVER TIRE CORD * ALL edits or amendments must be made on the electronic/computer document * Amilcar Pablo 02/15/202319: HPI-General Illness [...] (Auto) (28.0 - 48.0 %) 13.9 L [place] % (Auto) (3.0 - 15.0 %) 10.0 Eos % (Auto) (1.0 - 8.0 %) 0.0 L Baso % (Auto) (0.0 - 2.0 %) 0.4 Neut # (Auto) (2.0 - 3.2 x10 3/uL) 9.16 H Lymph # (Auto) (1.0 - 3.8 x10 3/uL) 1.70 [place] # (Auto) (0.1 - 0.8 x10 3/uL) [...] pH (5.0 - 7.0) 6.0 Ur Specific [place] (1.005 - 1.030) 1.015 Urine Protein (NEGATIVE) [...] resolution recommended. SL: TRES Impression By: [email or web address] - Jeromy Wolfe M.D. Lab Imaging Statement [...] X1ED STA 02/14 2312 DC 02/14 PO 02/143 2320 Diagnostic Agents [...] 02/14 231 2321 Patient Discharge Departure Vital Signs/Condition Vital [...] Saw Pt Alone I have reviewed the PA/WEAVER TIRE CORD's note and plan of care. I was available for consultation as needed at all times during the patient's visit in the emergency department. I agree with the clinical impression, plan and disposition. at 0332 at 0517 RPT #:[id number] END OF REPORT [facility] 2019-05-22 11:29:[address] 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 Pt reports eating sour Skittles and felt sensation of throat swelling with associated neck/throat itchiness and SOB. She took 50mg of Benadryl and Epi Pen at school [employer]GE [employer]. Pt was seen here previously on 05/02/19 [...] Ox 97 05/22 1313 B/P 110/65 05/22 131 B/P Mean 80 05/22 1313 O2 Delivery [...] Dose Route Stop Time Status Admin Ipratropium [place] 0.5 MG Q15M 05/22 1130 DC 05/22 [...] on 05/22/19 at 1129 at 2022 RPT #:[id number] END OF REPORT [facility] 2019-05-02 09:53:[address] [facility] [place] [place] ([facility] EMERGENCY PROVIDER REPORT REPORT#:[id number] REPORT STATUS: Signed DATE:05/02/19 TIME: 952 PATIENT: LUIS EDMONDS UNIT #: [id number] ROOM/BED: AGE: 18 SEX: F PCP PHYS: Elina Rome MD SERVICE AUTHOR: Carla Toledo MD * ALL edits or amendments must be made on the electronic/computer document * HPI-Allergic Reaction Peds General Confirmed Patient Yes Initial Greet Date/Time 05/02/[address] Rome (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 Now c/o itchy throat. Denies nausea and [...] 98 On: Room air Interpretation Interpreted by ri, Pulse oximetry normal Time 0944 Portions of [...] [Dr. Toledo]. Signed By: Priscilla Edwards, 05/02/19 0928 Provider Scribed Statement I personally performed the services described in this documentation and reviewed the documentation that was dictated to the scribe(s) in my presence, and it accurately records my words and actions. Carla Toledo, 05/02/19 Portions of this section were scribed by Priscilla Edwards on 05/02/19 at 0957 at 0008 RPT #:[id number] END OF REPORT [facility]
[2024-05-07] MEDS ORDERED: FAMOTIDINE 20 MG/2 ML VIAL IV ONE (01:58)
[2024-05-07] MEDS ORDERED: SMZ./TMP. 800/160 MG TABLET ONE (01:58)
[2024-05-07] MEDS ORDERED: ONDANSETRON 4 MG/2 ML VIAL ONE (01:58)
[2024-05-07] MEDS ORDERED: CEFTRIAXONE 1000 MG/VIAL ONE (01:58)
[2024-05-07] MEDS ORDERED: NA CHLORIDE 0.9% 1,000 ML ONE (01:59)
[2024-05-07] MEDS ORDERED: NA CHLORIDE 0.9% 50 ML ONE (01:59)
[2024-05-07 02:08] LABS: Absolute Basophils 0.1 K/uL (0-0.5); Absolute Eosinophils 0.7 K/uL (0-0.5); Absolute Lymphocytes (CBC) 3.3 K/uL (0.7-4.9); Absolute Monocytes 0.8 K/uL (0.1-1.3); Absolute Neutrophil 5.1 K/uL (1.8-8.0); Basophils % 0.7 % (0-1.3); Eosinophils % 6.6 % (0-4.4); Hematocrit 35.1 % (36.0-45.0); Hemoglobin 11.4 g/dL (12.0-15.0); Lymphocytes % 33.1 % (15.3-44.8); MCH 29.4 pg (27.0-35.0); MCHC 32.6 g/dL (32.0-36.0); MCV 90.1 fL (80-100); MPV 8.8 fL (7.6-11.3); Monocytes % 7.8 % (3.3-12.3); Neutrophils % 51.8 % (41.7-73.7); Platelets 251 thou/uL (152-406); RBC Red Blood Cell Count 3.89 M/uL (3.86-4.86); Red Cell Distribution Width 14.2 % (12.1-15.2)
[2024-05-07 02:18] LABS: ALT/SGPT 17 U/L (13-56); Albumin 3.7 g/dL (3.4-5.0); Alkaline Phosphatase 55 U/L (45-117); Anion Gap 7.3 mEq/L (5.0-15.0); BUN Blood Urea Nitrogen 10 mg/dL (7-18); Bicarbonate 27 mEq/L (21-32); Bilirubin Total 0.3 mg/dL (0.2-1.0); Globulin 3.8 g/dL (2.3-3.5); Glomerular Filtration Rate 129 ml/min (=/>90); Glucose Level 116 mg/dL (74-106); Potassium 3.3 mEq/L (3.5-5.1); Protein, Total 7.5 g/dL (6.4-8.2); Sodium Level 140 mEq/L (136-145)
[2024-05-07 02:44] LABS: AST/SGOT < 10 U/L (15-37)
--- NOTE | 2024-05-07 03:48 | ER ---
Nurse's Notes [facility] Name: Hilaria Rogers Age: 23 yrs Sex: Female : 2000 Arrival Date: 05/07/2024 Time: 00:52 Bed 15 Private MD: Diagnosis: Acute mastitis right, initial encounter Presentation: 05/07 01:15 Chief complaint: Patient states: My right boob is infected again and I can't keep vc1 anything down. Coronavirus screen: Client denies travel out of the [place] in the last 14 days. At this time, the client does not indicate any symptoms associated with coronavirus-19. Ebola Screen: Patient negative for fever greater than or equal to 101.5 degrees Fahrenheit, and additional compatible Ebola Virus Disease symptoms Patient denies exposure to infectious person. Patient denies travel to an Ebola-affected area in the 21 days before illness onset. No symptoms or risks identified at this time. Initial Sepsis Screen: Does the patient meet any 2 criteria? No. Patient's initial sepsis screen is negative. Does the patient have a suspected source of infection? No. Patient's initial sepsis screen is negative. Risk Assessment: Do you want to hurt yourself or someone else? Patient reports no desire to harm self or others. Onset of symptoms was May 03, 2024. 01:15 Method Of Arrival: Ambulatory vc1 01:15 Acuity: CONCHITA 4 vc1 Triage Assessment: 01:22 General: Appears in no apparent distress. uncomfortable, slender, well groomed, vc1 Behavior is cooperative, appropriate for age. Pain: Complains of pain in right lateral anterior chest Pain does not radiate. Pain currently is 8 out of 10 on a pain scale. Quality of pain is described as sharp. EENT: No deficits noted. No signs and/or symptoms were reported regarding the EENT system. Neuro: Level of Consciousness is awake, alert, obeys commands, Oriented to person, place, time, situation, Appropriate for age. Cardiovascular: No deficits noted. Respiratory: Airway is patent Respiratory effort is even, unlabored, Respiratory pattern is regular, symmetrical. Derm: Wound noted right breast. Musculoskeletal: Circulation, motion, and sensation intact. Range of motion: intact in all extremities. CHANNEL OPENER: 01:21 LMP 04/30/2024, unknown vc1 Historical: - Allergies: 01:20 sour candy; vc1 - Home Meds: 01:20 None [Active]; vc1 - PMHx: 01:20 None; vc1 - PSHx: 01:20 Adenoid excision; Appendectomy; Tonsillectomy; vc1 - Immunization history:: Adult Immunizations up to date. - Infectious Disease History:: Denies. - Social history:: Smoking status: Reported history of juuling and/or vaping. - Family history:: not pertinent. Screenin:21 [facility] ED Fall Risk Assessment (Adult) History of falling in the last 3 months, vc1 including since admission No falls in past 3 months (0 pts) Confusion or Disorientation No (0 pts) Intoxicated or Sedated No (0 pts) Impaired Gait No (0 pts) Mobility Assist Device Used No (0 pt) Altered Elimination No (0 pt) Score/Fall Risk Level 0 - 2 = Low Risk Oriented to surroundings, Maintained a safe environment, Educated pt \T\ family on fall prevention, incl call for assistance when getting out of bed. Abuse screen: Denies threats or abuse. Nutritional screening: No deficits noted. Tuberculosis screening: No symptoms or risk factors identified. Assessment: 02:24 Reassessment: see triage for full assessment. GI: Reports nausea, vomiting. : No dd2 deficits noted. No signs and/or symptoms were reported regarding the genitourinary system. Vital Signs: 01:15 BP 112 / 70; Pulse 87; Resp 15; Temp 98; Pulse Ox 98% ; Weight 83.46 kg; Height 5 ft. 3 vc1 in. ; Pain 8/10; 03:10 BP 104 / 72; Pulse 80; Resp 16; Pulse Ox 100% ; dd2 04:16 BP 109 / 73; Pulse 81; Resp 16; Temp 98.3; Pulse Ox 100% ; dd2 01:15 Body Mass Index 32.59 (83.46 kg, 160.02 cm) vc1 01:15 Pain Scale: Adult vc1 Russell Coma Score: 03:48 Eye Response: spontaneous(4). Motor Response: obeys commands(6). Verbal Response: sp4 oriented(5). Total: 15. ED Course: 00:54 Patient arrived in ED. jj6 00:56 Jose Mancia MD is Attending Physician. sp4 01:07 TARSHA SHELDON, RN is Primary Nurse. dd2 01:20 Triage completed. vc1 01:21 Arm band placed on right wrist. vc1 01:21 Patient has correct armband on for positive identification. Bed in low position. Call vc1 light in reach. Provided Education on: call light. Pulse ox on. NIBP on. 02:23 No provider procedures requiring assistance completed. Initial lab(s) drawn, by me, dd2 sent to lab. Inserted saline lock: 20 gauge in right antecubital area, using aseptic technique. Blood collected. Flushed with 10 mL NS. 04:18 IV discontinued, intact, bleeding controlled, No redness/swelling at site. Pressure dd2 dressing applied. Administered Medications: 02:22 Drug: Famotidine IVP 20 mg IVP once; dilute with 10 mL 0.9% NaCl; give over 2 minutes dd2 Route: IVP; Site: right antecubital; 02:37 Follow up: Response: No adverse reaction dd2 02:22 Drug: Ondansetron IVP 8 mg IVP once; over 2 minutes Route: IVP; Site: right antecubital;dd2 02:37 Follow up: Response: No adverse reaction dd2 02:22 Drug: NS 0.9% IV 1000 ml IV at 1 bolus Per protocol; to be given as a bolus over 60 dd2 minutes Route: IV; Rate: 1 bolus; Site: right antecubital; 02:37 Follow up: Response: No adverse reaction dd2 03:25 Follow up: IV Status: Completed infusion; IV Intake: 1000ml dd2 02:22 Drug: Rocephin - Rocephin (cefTRIAXone) IVPB 1 grams IVPB once over 30 mins; (mix in 50 dd2 mL NS) Route: IVPB; Infused Over: 30 mins; Site: right antecubital; 02:37 Follow up: Response: No adverse reaction dd2 02:52 Follow up: IV Status: Completed infusion; IV Intake: 60ml dd2 02:22 Drug: Trimethoprim-Sulfamethoxazole PO (160 mg-800 mg (DS) 1 tablet PO once Route: PO; dd2 02:52 Follow up: Response: No adverse reaction dd2 Medication: 01:22 VIS not applicable for this client. vc1 Intake: 02:52 IV: 60ml; Total: 60ml. dd2 03:25 IV: 1000ml; Total: 1060ml. dd2 Outcome: 03:47 Discharge ordered by . sp4 04:18 Discharged to home ambulatory, dd2 04:18 Condition: stable 04:18 Discharge instructions given to patient, Instructed on discharge instructions, follow up and referral plans. medication usage, Demonstrated understanding of instructions, follow-up care, medications, Prescriptions given X 3, 04:22 Patient left the ED. dd2 Signatures: Sharla Sidhu6 Jeanna Mccoy RN RN vc1 Jose Mancia MD MD sp4 TARSHA SHELDON RN RN dd2
--- NOTE | 2024-05-07 03:48 | EDPHYS ---
Physician Documentation [facility] Name: Hilaria Rogers Age: 23 yrs Sex: Female : 2000 Arrival Date: 05/07/2024 Time: 00:52 Bed 15 Private MD: ED Physician Jose Mancia HPI: 05/07 00:57 This 23 yrs old Female presents to ER via Unassigned with complaints of sp4 Breast Problem, Arm Pain. 03:48 Patient presents with acute pain and redness tenderness of the right breast starting sp4 yesterday. Also reports nausea. 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 - Infectious Disease History:: Denies. - Social history:: Smoking status: Reported history of juuling and/or vaping. - Family history:: not pertinent. ROS: 03:48 Constitutional: Negative for fever, chills, and weight loss, positive for right sp4 breast tenderness redness and pain, nausea vomiting 03:48 All other systems are negative, Exam: 03:48 Constitutional: This is a well developed, well nourished patient who is awake, alert, sp4 and in no acute distress. Head/Face: Normocephalic, atraumatic. Eyes: Pupils equal round and reactive to light, extra-ocular motions intact. Lids and lashes normal. Conjunctiva and sclera are not injected. Cornea within normal limits. Periorbital areas with no swelling, redness, or edema. ENT: Nares patent. No nasal discharge, no septal abnormalities noted. Tympanic membranes are normal and external auditory canals are clear. Oropharynx with no redness, swelling, or masses, exudates, or evidence of obstruction, uvula midline. Mucous membranes moist. Neck: Trachea midline, no thyromegaly or masses palpated, and no cervical lymphadenopathy. Supple, full range of motion without nuchal rigidity, or vertebral point tenderness. Chest/axilla: Normal chest wall appearance and motion. Nontender with no deformity. No lesions are appreciated. There is mild tenderness and redness right breast inferior aspect of the breast, No sign of abscess with purulent discharge Cardiovascular: Regular rate and rhythm with a normal S1 and S2. No gallops, murmurs, or rubs. Normal PMI, no JVD. No pulse deficits. Respiratory: Lungs have equal breath sounds bilaterally, clear to auscultation and percussion. No rales, rhonchi or wheezes noted. No increased work of breathing, no retractions or nasal flaring. Abdomen/GI: Soft, with normal bowel sounds. No distension or tympany. No guarding or rebound. No evidence of tenderness throughout. Back: No spinal tenderness. No costovertebral tenderness. Skin: Warm, dry with normal turgor. Normal color with no rashes, no lesions, and no evidence of cellulitis. MS/ Extremity: Pulses equal, no cyanosis. Neurovascular intact. Full, normal range of motion. Neuro: Awake and alert, GCS 15, oriented to person, place, time, and situation. Cranial nerves II-XII grossly intact. Motor strength 5/5 in all extremities. Sensory grossly intact. Psych: Awake, alert, with orientation to person, place and time. Behavior, mood, and affect are within normal limits Vital Signs: 01:15 BP 112 / 70; Pulse 87; Resp 15; Temp 98; Pulse Ox 98% ; Weight 83.46 kg; Height 5 ft. 3 vc1 in. ; Pain 8/10; 03:10 BP 104 / 72; Pulse 80; Resp 16; Pulse Ox 100% ; dd2 04:16 BP 109 / 73; Pulse 81; Resp 16; Temp 98.3; Pulse Ox 100% ; dd2 01:15 Body Mass Index 32.59 (83.46 kg, 160.02 cm) vc1 01:15 Pain Scale: Adult vc1 Russell Coma Score: 03:48 Eye Response: spontaneous(4). Motor Response: obeys commands(6). Verbal Response: sp4 oriented(5). Total: 15. MDM: 01:04 Medical Screening Exam initiated sp4 03:48 Differential diagnosis: contusion, abrasion, tendonitis. Data reviewed: vital signs, sp4 nurses notes, lab test result(s), CBC, electrolytes, hepatic panel. ED course: Positive for signs of acute right mastitis.. 05/07 01:38 Order name: CBC with Diff; Complete Time: 03:46 sp4 05/07 01:38 Order name: CMP; Complete Time: 03:46 sp4 05/07 01:38 Order name: Test, Serum; Complete Time: 03:46 sp4 05/07 01:38 Order name: IV Saline Lock; Complete Time: 02:23 sp4 05/07 01:38 Order name: Labs collected and sent; Complete Time: 02:23 sp4 Administered Medications: 02:22 Drug: Famotidine IVP 20 mg IVP once; dilute with 10 mL 0.9% NaCl; give over 2 minutes dd2 Route: IVP; Site: right antecubital; 02:37 Follow up: Response: No adverse reaction dd2 02:22 Drug: Ondansetron IVP 8 mg IVP once; over 2 minutes Route: IVP; Site: right antecubital;dd2 02:37 Follow up: Response: No adverse reaction dd2 02:22 Drug: NS 0.9% IV 1000 ml IV at 1 bolus Per protocol; to be given as a bolus over 60 dd2 minutes Route: IV; Rate: 1 bolus; Site: right antecubital; 02:37 Follow up: Response: No adverse reaction dd2 03:25 Follow up: IV Status: Completed infusion; IV Intake: 1000ml dd2 02:22 Drug: Rocephin - Rocephin (cefTRIAXone) IVPB 1 grams IVPB once over 30 mins; (mix in 50 dd2 mL NS) Route: IVPB; Infused Over: 30 mins; Site: right antecubital; 02:37 Follow up: Response: No adverse reaction dd2 02:52 Follow up: IV Status: Completed infusion; IV Intake: 60ml dd2 02:22 Drug: Trimethoprim-Sulfamethoxazole PO (160 mg-800 mg (DS) 1 tablet PO once Route: PO; dd2 02:52 Follow up: Response: No adverse reaction dd2 Disposition Summary: 05/07/24 03:47 Discharge Ordered Notes: Location: Home sp4 Problem: new sp4 Symptoms: have improved sp4 Condition: Stable sp4 Diagnosis - Acute mastitis right, initial encounter sp4 Followup: sp4 - With: Private Physician - When: 7 - 10 days - Reason: Recheck today's complaints Discharge Instructions: - Discharge Summary Sheet sp4 - Mastitis, [id number] sp4 Forms: - Patient Portal Instructions sp4 - Work release form dd2 Prescriptions: - Cephalexin 500 mg Oral Capsule - take 1 capsule ORAL route every 8 hours for 10 days; 30 capsule; Refills: 0, sp4 Product Selection Permitted - Bactrim DS 800-160 mg Oral Tablet - take 1 tablet ORAL route every 12 hours for 10 days; 20 tablet; Refills: 0, sp4 Product Selection Permitted - ondansetron 8 mg Oral Tablet,disintegrating - take 1 tablet ORAL route every 8 hours PRN nausea; 30 tablet; Refills: 0, sp4 Product Selection Permitted Signatures: Dispatcher [employer] Jeanna Palmer RN RN vc1 Jose Mancia MD MD sp4 TARSHA SHELDON RN RN dd2
[2024-05-07 10:07] VITALS: O2SAT 100
[2024-05-07 10:09] VITALS: BP 109/73; TEMP 98.3
== END 2024-05-07 04:22 | disposition home or self-care (01) ==
LOC: ER 00:52
DX: N61.0 Mastitis without abscess (principal)
CPT/HCPCS: 36415; 80053; 84703; 85025; 96361; 96365; 96375; 99284; J0696; J2405; J7030

== ENCOUNTER 2024-06-12 23:27 | Emergency (ER) | payer SELFPAY ==
--- OUTSIDE RECORDS SUMMARY | 2024-06-12 23:33 | XMS REPORT | Continuity of Care Document ---
Author Name Unknown Address [address] [facility] [address] [place] [address] [facility] thconnect Address [address] [facility]. [address] [place] [address] Care Team Providers Care Heater Installer Name Role Phone FREDERICK RICHARDSON Primary Care Physician Unavailab Brittnee Acosta Attending Clinician UnavailMADHAVI Garnett Attending Clinician Unavailable MERT MILES Attending Clinician Unavailable MERT MILES Attending Clinician Unavailable PHILL ROMAN Attending Clinician Unavailjas Roman MD, Phill Nash Attending Clinician [phone] Luis Burciaga Attending Clinician UnavailSUZY Malcolm Attending Clinician Unavailable Suzy Uriostegui MD Attending Clinician [phone] Effie Marquez Attending Clinician UnaANOTNIA Davies Attending Clinician Unavailable Antnoia Pike MD Attending Clinician [phone] Ghanshyam Chavez Attending Clinician Tierney vilma Nurse, Osvaldo Evangelista Attending Clinician Unavaila Frederick Herrera MD Attending Clinician [phone] FREDERICK RICHARDSON Attending Clinician Unavailable AR RICHARDSON Attending Clinician Unavailable Ar Richardson MD Attending Clinician [phone] Kishor Bishop Attending Clinician Unavailable ELINA ROME Attending Clinician Unavailable Madhavi Roman PA-C Attending Clinician [phone] Dottie Chavez Attending Clinician Unavailabl marlene MIRELES, Nathalia Cagle Attending Clinician [phone] Ny Khan MD Attending Clinician [phone] Olivier TANK SETTER, Aneta Esparza Attending Clinician [phone] Unknown, Attending Attending Clinician Unavailab miah LOPEZ, ATTENDING Attending Clinician Unavailab Pearl Petersen Attending Clinician Unavailjas Noble RN, Tashia Rae Attending Clinician Unavailab miah Last TANK SETTER, Lily Hummel Attending Clinician [phone] Maryellen PICKERING, Lydia Hilton Attending Clinician [phone] Doctor Unassigned, [place] Attending Clinician U Liberty Spann Attending Clinician [phone] LIBERTY CAMP Attending Clinician Unavailable Wiliam WOOL BATTING WORKER, Antonia Attending Clinician + [phone] Dagoberto WOOL BATTING WORKER, Kassidy Cagle Attending Clinician [phone] Rajan PICKERING, Elina Pandey Attending Clinici an KASSIDY ARENAS Attending Clinician Unavailab REJI Bose Attending Clinician Unavailable Ivet PICKERING, Aiden Conde Attending Clinician [phone] SOSA ADAMES Attending Clinician Unavailable Zacarias PICKERING, Sosa Attending Clinician [phone] Santiago COLE, Sandra Hilton Attending Clinician Unavaila Ashley Schafer DO Attending Clinician [phone] Orquidea PICKERING, Mike Jaffe Attending Clinician +[phone] Shahnaz WOOL BATTING WORKER, Sujata Attending Clinician SUZY URIOSTEGUI Admitting Clinician Unavailable [place] KHAN Admitting Clinician Unavailable Brittnee Ramirez Admitting Clinician UnavailElina Chavez Admitting Clinician Unavail able PHILL ROMAN Admitting Clinician UnavailPhill Garnett MD Admitting Clinician [phone] Luis Burciaga Admitting Clinician UnavailSuzy Malcolm MD Admitting Clinician [phone] Emily Artis Admitting Clinician UnavailANTONIA Samaniego Admitting Clinician Unavailable Effie Solitario Admitting Clinician Unaalondra paisha Physician, No Primary or Family Admitting Clinic lizzeth Unavailable Dottie Chavez Admitting Clinician UnavailNy Frederick MD Admitting Clinician [phone] Pearl Chavez Admitting Clinician UnavailSOSA Bae Admitting Clinician Unavailable Payers Payer Name Policy Type Policy Number Effective Date Expirati on Date Source [facility] [id number] 2023 00:00:00 [facility] [id number] 00:00:00 [facility] [id number] 2023 00:00:00 Problems Condition Name Condition Details Condition Category Status Onset Date Resolution Date Last Treatment Date Treating Clinician Comments Source Acute appendicit is Acute appendicit is Disease Active 2022-07 0 00:00: 00 [facility] Anxiety Anxiety Disease Active [facility] Depression Depression Disease Active [facility] Allergies, Adverse Reactions, Alerts Allergy [...] Drug Allergy Active Swelling 12-24 00:00: 00 [facility] MALIC ACID DRUG INGREDI Active High Swelling 12-24 00:00: 00 [facility] MALIC ACID DA Active SV TONGUE SWELLING, THROAT CLOSING 12-24 00:00: 00 [facility] SOUR MOREAU DRUG INGREDI Active Anaphylaxis 11-15 00:00: 00 [facility] Sour Moreau Propensi ty to adverse reaction s Active Anaphylaxis 11-15 00:00: 00 Sour flavoring on all candy [facility] Social History Social Habit Start Date Stop Date Quantity Comments Source ASSERTION 2022-02-27 00:00:00 [facility] Sexual orientation [facility] Alcohol intake 2023-05-03 00:00:00 2023-05-03 00:00:00 Ex-drinker (finding) [facility] Exposure to SARS-CoV-2 (event) 2022-10-07 00:00:00 2022-10-17 15:17:00 Not sure [facility] History of Social function 2022-02-25 00:00:00 2022-02-25 00:00:00 [facility] Tobacco use and exposure 2022-02-25 00:00:00 2022-02-25 00:00:00 Smokeless tobacco non-user [facility] Sex Assigned At 2000 00:00:00 2000 00:00:00 [facility] Smoking Status Start Date Stop Date Source Never smoked tobacco [facility] Medications Ordered Medication Name Filled Medication Name Start Date Stop Date Current Medication? Ordering Clinician Indication Dosage Frequency Signature (SIG) Comments Components Source ibuprofen (IBU) tablet 400 mg 2022-07 15:00: 00 Yes 400mg 400 mg, Oral, Q8H, First dose on 05/03/23 at 1000, Until Discontinu ed, Routine [facility] SERTraline 25 mg tablet 2022-07 12:24: 34 Yes 25mg Take 1 tablet by mouth in the morning. [facility] ketorolac (TORADOL) injection 30 mg 2022-07 04:00: 00 05-03 03:38 :00 No 30mg 30 mg, Slow IV Push, ONCE, 1 dose, On Wed05/02/23 at 2300, Routine [facility] ibuprofen 400 mg tablet 2022-07 00:00: 00 05-11 04:59 :00 No [id number] 400mg Take 1 tablet by mouth every 8 (eight) hours as needed for Pain (scale 4-6) for up to 7 days. [facility] traMADoL 50 mg tablet 2022-07 00:00: 00 05-11 04:59 :00 No [id number] 50mg Take 1 tablet by mouth every 6 (six) hours as needed for Pain (scale 7-10) for up to 7 days. Indication s: acute pain [facility] enoxaparin (LOVENOX) injection 40 mg 2022-07 22:00: 00 Yes 40mg 40 mg, Subcutaneo us, DAILY, First dose on Wed05/02/23 at 1700, Until Discontinu ed, Routine [facility] lactated ringers IV infusion 1,000 mL 2022-07 17:15: 00 Yes 1000mL at 100 mL/hr, 1,000 mL, IV Infusion, CONTINUOUS , Starting on Wed05/02/23 at 1215, Until Discontinu ed, Routine, PACU [facility] HYDROcodone -acetaminop hen (NORCO 5) 5-325 mg tablet 1 tablet 2022-07 17:15: 00 05-02 17:48 :00 No 1{tbl} 1 tablet, Oral, ONCE, 1 dose, On Wed05/02/23 at 1215, Routine, PACU [facility] FENTanyl PF (SUBLIMAZE (PF)) injection 25 mcg 2022-07 17:13: 49 05-02 18:23 :47 No 25ug 25 mcg, Slow IV Push, Q5MIN PRN, 4 doses, Starting on Wed05/02/23 at 1213, Until Wed05/02/23 at 1323, Routine, Pain (scale 4-6), PACU [facility] HYDROcodone -acetaminop hen (NORCO 5) 5-325 mg tablet 1 tablet 2022-07 16:58: 20 Yes 1{tbl} 1 tablet, Oral, Q4HPRN, Starting on Wed05/02/23 at 1158, Until Discontinu ed, Routine, Pain (scale 4-6) [facility] sodium chloride 0.9 % irrigation solution 2022-07 16:49: 00 05-02 17:12 :46 No PRN, Starting on Wed05/02/23 at 1149, Until Wed05/02/23 at 1212, Intra-op [facility] bupivacaine (preserv free) (SENSORCAIN E MPF) 0.25 % (2.5 mg/mL) injection 2022-07 16:35: 00 05-02 17:12 :46 No PRN, Starting on Wed05/02/23 at 1135, Until Wed05/02/23 at 1212, Routine, Intra-op [facility] NaCl 0.9% (NS) IV infusion 1,000 mL 2022-07 09:30: 00 05-02 16:57 :40 No 1000mL at 125 mL/hr, IV Infusion, CONTINUOUS , Starting on Wed05/02/23 at 0430, Until Wed05/02/23 at 1157, Routine [facility] ondansetron (ZOFRAN (PF)) injection 4 mg 2022-07 09:23: 00 Yes 4mg 4 mg, Slow IV Push, Q4HPRN, Starting on Wed05/02/23 at 0423, Until Discontinu ed, Routine, Nausea and Vomiting (N/V) [facility] FENTanyl PF (SUBLIMAZE (PF)) injection 12.5 mcg 2022-07 09:22: 41 05-02 16:58 :38 No 12.5ug 12.5 mcg, Slow IV Push, Q4HPRN, Starting on Wed05/02/23 at 0422, Until Wed05/02/23 at 1158, Routine, Pain (scale 7-10) [facility] acetaminoph en (TYLENOL) tablet 650 mg 2022-07 09:22: 29 Yes 650mg 650 mg, Oral, Q6HPRN, Starting on Wed05/02/23 at 0422, Until Discontinu ed, Routine, Pain (scale 1-3) [facility] FLUTICASONE PROPIONATE 50 mcg/actuati on nasal spray 2020-07 00:00: 00 05-02 00:00 :00 No [id number] SPRAY 1 SPRAY INTO EACH NOSTRIL EVERY DAY [facility] EPINEPHrine 0.3 mg/0.3 mL injection 2019-07 00:00: 00 Yes [id number] INJECT 0.3 ML BY INTRAMUSCU LAR ROUTE ONCE NOW FOR 1 DOSE. [facility] Immunizations Ordered Immunization Name Filled Immunization Name Date Status Comments Source Meningococcal Polysaccharide (groups A, C, Y and W-135) conjugate vaccine (MCV4P) 2019-02-23 00:00:00 Completed [facility] Meningococcal Polysaccharide (groups A, C, Y and W-135) conjugate vaccine (MCV4P) 2019-02-23 00:00:00 Completed [facility] DTP 2005-01-21 00:00:00 Completed [facility] HIB 3 Dose Schedule 2005-01-21 00:00:00 Completed [facility] HEPATITIS A 2005-01-21 00:00:00 Completed [facility] Pneumococcal 7 Conjugate, PCV7 (Prevnar7) 2005-01-21 00:00:00 Completed [facility] DTP 2005-01-21 00:00:00 Completed [facility] HIB 3 Dose Schedule 2005-01-21 00:00:00 Completed [facility] HEPATITIS A 2005-01-21 00:00:00 Completed [facility] Pneumococcal 7 Conjugate, PCV7 (Prevnar7) 2005-01-21 00:00:00 Completed [facility] MMR 2003-12-25 00:00:00 Completed [facility] Polio (IPV/OPV) 2003-12-25 00:00:00 Completed [facility] Pneumococcal 7 Conjugate, PCV7 (Prevnar7) 2003-12-25 00:00:00 Completed [facility] MMR 2003-12-25 00:00:00 Completed [facility] Polio (IPV/OPV) 2003-12-25 00:00:00 Completed [facility] Pneumococcal 7 Conjugate, PCV7 (Prevnar7) 2003-12-25 00:00:00 Completed [facility] DTP 2003-06-19 00:00:00 Completed [facility] HIB 3 Dose Schedule 2003-06-19 00:00:00 Completed [facility] Hep B, Adol or Pedi Dosage 2003-06-19 00:00:00 Completed [facility] Polio (IPV/OPV) 2003-06-19 00:00:00 Completed [facility] DTP 2003-06-19 00:00:00 Completed [facility] HIB 3 Dose Schedule 2003-06-19 00:00:00 Completed [facility] Hep B, Adol or Pedi Dosage 2003-06-19 00:00:00 Completed [facility] Polio (IPV/OPV) 2003-06-19 00:00:00 Completed [facility] Hep B, Adol or Pedi Dosage 2002 00:00:00 Completed [facility] Hep B, Adol or Pedi Dosage 2002 00:00:00 Completed [facility] DTP Unknown Completed [facility] HIB 3 Dose Schedule Unknown Completed [facility] HEPATITIS A Unknown Completed [facility] Hep B, Adol or Pedi Dosage Unknown Completed [facility] MMR Unknown Completed [facility] Polio (IPV/OPV) Unknown [facility] Meningococcal Polysaccharide (groups A, C, Y and W-135) conjugate vaccine (MCV4P) Unknown Completed [facility] Pneumococcal 7 Conjugate, PCV7 (Prevnar7) Unknown Completed [facility] DTP Unknown Completed [facility] HIB 3 Dose Schedule Unknown Completed [facility] HEPATITIS A Unknown Completed [facility] Hep B, Adol or Pedi Dosage Unknown Completed [facility] MMR Unknown Completed [facility] Polio (IPV/OPV) Unknown Com[facility] Meningococcal Polysaccharide (groups A, C, Y and W-135) conjugate vaccine (MCV4P) Unknown Completed [facility] Pneumococcal 7 Conjugate, PCV7 (Prevnar7) Unknown Completed [facility] Vital Signs Vital Name Observation Time Observation Value Comments S ource Systolic blood pressure 2023-05-03 12:17:00 101 mm[Hg] [facility] Diastolic blood pressure 2023-05-03 12:17:00 59 mm[Hg] [facility] Heart rate 2023-05-03 12:17:00 68 /min [facility] Body temperature 2023-05-03 12:17:00 36.22 [facility] Respiratory rate 2023-05-03 12:17:00 18 /min [facility] Oxygen saturation in Arterial blood by Pulse oximetry 2023-05-03 12:17:00 96 /min [facility] Body weight 2023-05-03 08:19:00 70.126 [facility] BMI 2023-05-03 08:19:00 28.28 kg/m2 [facility] Body height 2023-05-02 08:25:00 157.5 cm [facility] Systolic blood pressure 2023-05-02 18:25:00 97 mm[Hg] [facility] Diastolic blood pressure 2023-05-02 18:25:00 60 mm[Hg] [facility] Heart rate 2023-05-02 18:25:00 59 /min [facility] Body temperature 2023-05-02 18:25:00 36.11 [place] [facility] Respiratory rate 2023-05-02 18:25:00 18 /min [facility] Oxygen saturation in Arterial blood by Pulse oximetry 2023-05-02 18:25:00 100 /min [facility] Body height 2023-05-02 08:25:00 157.5 cm [facility] Body weight 2023-05-02 08:25:00 69.037 kg [facility] BMI 2023-05-02 08:25:00 28.28 kg/m2 [facility] Systolic blood pressure 2022-10-17 20:18:00 99 mm[Hg] [facility] Diastolic blood pressure 2022-10-17 20:18:00 63 mm[Hg] [facility] Body temperature 2022-10-17 20:18:00 36.78 [place] [facility] Respiratory rate 2022-10-17 20:18:00 16 /min [facility] Heart rate 2022-10-17 19:56:00 92 /min [facility] Body height 2022-10-17 19:56:00 157.5 cm [facility] Body weight 2022-10-17 19:56:00 71.668 kg [facility] BMI 2022-10-17 19:56:00 28.90 kg/m2 [facility] Oxygen saturation in Arterial blood by Pulse oximetry 2022-10-17 19:56:00 99 /min [facility] Procedures Procedure Date / Time Performed Performing Clinician Source CBC WITH DIFF [facility]23-05-03 11:31[facility] 2023-05-03 11:31[facility]00 [facility] LAPAROSCOPIC APPENDECTOMY 2023-05-02 15:50:00 Melinda [facility] LAPAROSCOPIC APPENDECTOMY 2023-05-02 15:50:00 Melinda [facility] POCT TEST 2023-05-02 15:31:00 Miles, [facility] POCT TEST 2023-05-02 15:31:00 Melinda [facility] MAGNESIUM 2023-05-02 10:15:00 Phill Roman [facility] HEPATIC FUNCTION PANEL (65182) (ALB,T.PRO,BILI T,BU/BC,ALT,AST,ALK PHOS) 2023-05-02 10:15:00 Phill Roman [facility] BASIC METABOLIC PANEL (NA, K, CL, CO2, GLUCOSE, BUN, CREATININE, CA) 2023-05-02 10:15:00 Phill Roman [facility] CBC WITH DIFF 2023-05-02 10:15:00 [facility] 2023-05-02 10:15:00 Phill Roman [facility] HEPATIC FUNCTION PANEL (00646) (ALB,T.PRO,BILI T,BU/BC,ALT,AST,ALK PHOS) 2023-05-02 10:15:00 Phill Roman [facility] BASIC METABOLIC PANEL (NA, K, CL, CO2, GLUCOSE, BUN, CREATININE, CA) 2023-05-02 10:15:00 Phill Roman [facility] CBC WITH DIFF 2023-05-02 10:15:00 [id number] 2022-10-31 00:00:00 MAXBA [facility] [id number] 2022-10-30 00:00:00 MAXBA [facility] [id number] 2021-03-26 00:00:00 MAXBA [facility] [id number] 2021-03-26 00:00:00 [facility] Encounters Start Date/Time End Date/Time Encounter Type Admission Type Attending Clinicians Care Facility Care Department Encounter ID Source 2022-10-17 17:56:29 Outpatient X [facility] [id number] [facility] 2021-05-19 04:10:53 Outpatient X [facility] [id number] [facility] 2021-05-19 04:10:48 Emergency [facility] [id number] [facility] 2021-05-18 12:59:52 Emergency [facility] [id number] [facility] 2021-05-18 03:01:47 Emergency [facility] [id number] [facility] 2020-11-23 00:57:29 Inpatient Brittnee Ramirez HCACL HCACL [id number] [facility] 2020-10-05 01:43:54 Inpatient HCACL HCACL [id number] [facility] 2020-08-22 20:18:00 Inpatient HCACL KAELA [id number] [facility] 2020-02-15 22:49:00 Inpatient HCACL KAELA [id number] [facility] 2023-08-23 13:00:00 2023-08-23 13:00:00 Outpatient R MADHAVI ROMAN [facility] [id number] [facility] 2023-05-24 13:00:00 2023-05-24 13:00:00 Outpatient R MERT MILES [facility] [id number] [facility] 2023-05-02 03:19:00 2023-05-03 12:20:00 Outpatient PHILL PATEL [facility] [id number] [facility] 2023-05-02 03:19:00 2023-05-03 12:20:00 Hospital Encounter Phill Roman [facility] [id number] 350.1.13.10 4.2.7.2.686 [id number] [facility] 2023-05-02 11:24:00 2023-05-02 13:33:00 Surgery Melinda [facility] 1..840.114 350.1.13.10 4.2.7.2.686 [id number] [facility] 2022-10-30 19:17:00 2022-11-02 18:53:00 Inpatient Luis Diaz HCACL OBPP [id number] [facility] 2022-10-17 14:59:00 2022-10-17 17:00:00 Outpatient X GIOVANA SUZY [facility] [id number] [facility] 2022-10-17 14:59:00 2022-10-17 17:00:00 Emergency Ademily [facility] 1..840.114 350.1.13.10 4.2.7.2.686 [id number] [facility] 2022-09-26 22:39:00 2022-09-27 17:00:00 Inpatient EM Luis Burciaga HCACL OBANTE [id number] [facility] 2022-09-07 23:59:00 2022-09-14 10:45:00 Inpatient EM Luis Burciaga HCACL OBANTE [id number] [facility] 2022-08-03 15:04:00 2022-08-03 16:59:00 Emergency EM Mojgan Effie rogers HCACL OLGA [id number] [facility] 2022-03-20 14:10:00 2022-03-20 14:10:00 Outpatient ANTONIA CAPPS [facility] [id number] [facility] 2022-03-20 00:00:00 2022-03-20 00:00:00 Telephone Antonia P[facility] 1..840.114 350.1.13.10 4.2.7.2.686 [id number] [facility] 2022-03-16 14:10:00 2022-03-16 14:10:00 Outpatient R ANTONIA PIKE [facility] [id number] [facility] 2022-03-13 13:30:00 2022-03-13 13:30:00 Outpatient R ANTONIA PIKE [facility] [id number] [facility] 2022-03-13 11:10:00 2022-03-13 11:10:00 Outpatient R ANTONIA PIKE [facility] [id number] [facility] 2022-03-06 15:06:00 2022-03-06 16:12:00 Emergency EM Oyebadejo, Hennyadolapo HCACL AERS [id number] [facility] 2022-03-04 00:00:00 2022-03-04 00:00:00 Telephone Antonia Pike [facility] 1.840.114 350.1.13.10 4.2.7.2.686 [id number] [facility] 2022-03-03 00:00:00 2022-03-03 00:00:00 Telephone Antonia Pike [facility] 1.840.114 350.1.13.10 4.2.7.2.686 [id number] [facility] 2022-03-02 17:43:24 2022-03-02 23:59:00 Outpatient R PIKEANTONIA ASHER [facility] [id number] [facility] 2022-03-02 17:43:24 2022-03-02 23:59:00 Outpatient R PIKEANTONIA ASHER [facility] [id number] [facility] 2022-03-02 17:30:00 2022-03-02 23:59:00 Hospital Encounter Antonia Pike [facility] 1.840.114 350.1.13.10 4.2.7.2.686 [id number] [facility] 2022-02-26 14:50:00 2022-02-26 15:10:00 Nurse Visit Nurse, Frederick Miller [facility] 1.114 350.1.13.10 4.2.7.2.686 [id number] [facility] 2022-02-26 14:50:00 2022-02-26 14:50:00 Outpatient FREDERICK CORRAL [facility] [id number] [facility] 2022-02-25 14:45:00 2022-02-25 23:59:00 Hospital Encounter Antonia Pike [facility] 1.114 350.1.13.10 4.2.7.2.686 [id number] [facility] 2022-02-25 14:45:00 2022-02-25 23:59:00 Outpatient R ANTONIA PIKE [facility] [id number] [facility] 2022-02-25 13:50:00 2022-02-25 15:29:57 Outpatient R ANTONIA PIKE [facility] [id number] [facility] 2022-02-25 13:50:00 2022-02-25 15:29:57 Office Visit Antonia Pike [facility] 1..114 350..13.10 4.2.7.2.686 [id number] [facility] 2022-02-23 15:50:00 2022-02-23 15:50:00 Outpatient R ANTONIA PIKE [facility] [id number] [facility] 2022-02-12 21:31:00 2022-02-12 22:34:00 Emergency X [facility] [id number] [facility] 2022-02-12 21:31:00 2022-02-12 22:34:00 Emergency Debra [facility] 1.84.114 350.1.13.10 4.2.7.2.686 [id number] [facility] 2021-11-11 00:16:00 2021-11-11 00:55:00 Emergency EM Kishor Bishop HCACL AERS [id number] [facility] 2021-11-04 15:30:00 2021-11-04 15:30:00 Outpatient ELINA FORMAN [facility] [id number] [facility] 2021-08-08 22:06:00 2021-08-08 22:30:00 Emergency EM Sam Chavezalondradiana HCACL AERS [id number] [facility] 2021-06-13 00:00:00 2021-06-13 00:00:00 Refill Madhavi Roman [facility] 1..840.114 350.1.13.10 4.2.7.2.686 [id number] [facility] 2021-05-12 13:41:54 2021-05-12 14:13:40 Office Visit Madhavi [facility] 1.2.840.114 350.1.13.10 4.2.7.2.686 [id number] [facility] 2021-05-12 13:30:00 2021-05-12 13:30:00 Outpatient MADHAVI MCNAIR [facility] [id number] [facility] 2021-03-25 14:56:00 2021-03-28 15:32:00 Inpatient Luis Diaz HCACL OBPP [id number] [facility] 2021-03-12 21:07:00 2021-03-13 01:05:00 Emergency EM Billy Perales Effie HCACL OLGA [id number] [facility] 2021-03-01 05:33:00 2021-03-01 09:00:00 Emergency EM Luis Burciaga HCACL OLGA [id number] [facility] 2021-02-17 15:17:00 2021-02-17 16:47:00 Emergency EM Effie Solitario HCACL OLGA [id number] [facility] 2021-02-12 19:14:00 2021-02-12 22:29:00 Emergency EM Effie Solitario HCACL OLGA [id number] [facility] 2021-01-29 02:30:00 2021-01-29 03:50:00 Emergency EM Dottie Chavez HCACL OLGA [id number] [facility] 2021-01-13 01:18:00 2021-01-13 02:30:00 [facility] 1..840.114 350.1.13.10 4.2.7.2.686 [id number] [facility] 2021-01-13 01:18:00 2021-01-13 02:30:00 Emergency Nathalia [place], [facility] [facility] 1.2.840.114 350.1.13.10 4.2.7.2.686 [id number] 2021-01-11 17:51:24 2021-01-11 18:25:45 Urgent Care Aneta Aguayo, Attending [facility] 1.2840.114 350.1.13.10 4.2.7.2.686 [id number] 370 [id number] [facility] 2021-01-11 17:51:24 2021-01-11 18:25:45 Urgent Care Aneta Aguayo [facility] 1.2840.114 350.1.13.10 4.2.7.2.686 [id number] 2021-01-11 18:00:00 2021-01-11 18:00:00 Outpatient R UNKNOWN, ATTENDING [facility] [id number] [facility] 2020-12-25 15:08:00 2020-12-25 18:26:00 Emergency EM Pearl Chavez [facility] [id number] [facility] 2020-11-23 00:02:00 2020-11-23 02:58:00 Emergency EM Brittnee Ramirez [facility] [id number] [facility] 2020-11-01 00:00:00 2020-11-01 00:00:00 Letter (Out) [facility] 1.2.840.114 350.1.13.10 4.2.7.2.686 [id number] [facility] 2020-11-01 00:00:00 2020-11-01 00:00:00 Letter (Out) [facility] 1.2.840.114 350.1.13.10 4.2.7.2.686 [id number] 2020-10-30 22:11:00 2020-10-31 00:46:00 Emergency Lily Last [facility] 1.2.840.114 350.1.13.10 4.2.7.2.686 [id number] 084 [id number] [facility] 2020-10-30 22:11:00 2020-10-31 00:46:00 Emergency Lily Last [facility] 1.2.840.114 350.1.13.10 4.2.7.2.686 [id number] 084 [id number] 2020-10-26 18:33:25 2020-10-26 19:03:11 Urgent Care Aneta Aguayo, Attending [facility] 1.2.840.114 350.1.13.10 4.2.7.2.686 [id number] 370 [id number] [facility] 2020-10-26 18:33:25 2020-10-26 19:03:11 Urgent Care Aneta Aguayo [facility] 1.2.840.114 350.1.13.10 4.2.7.2.686 [id number] 2020-10-26 19:00:00 2020-10-26 19:00:00 Outpatient R UNKNOWN, ATTENDING [facility] [id number] [facility] 2020-09-18 23:47:00 2020-09-19 01:47:00 Emergency [facility] 1.2.840.114 350.1.13.10 4.2.7.2.686 [id number] 084 [id number] [facility] 2020-09-18 23:47:00 2020-09-19 01:47:00 Emergency [facility] 1.2.840.114 350.1.13.10 4.2.7.2.686 [id number] 084 [id number] 2020-09-18 00:00:00 2020-09-18 00:00:00 Orders Only Doctor Unassigned, [place] [facility] 1.2.840.114 350.1.13.10 4.2.7.2.686 [id number] [id number] [facility] 2020-09-18 00:00:00 2020-09-18 00:00:00 Orders Only Doctor Unassigned, [place] [facility] 1.2.840.114 350.1.13.10 4.2.7.2.686 [id number] [id number] 2020-08-22 15:52:31 2020-08-22 16:12:31 Office Visit Madhavi Roman [facility] 1.2.840.114 350.1.13.10 4.2.7.2.686 [id number] [facility] 2020-08-22 15:52:31 2020-08-22 16:12:31 Office Visit Madhavi Roman [facility] 1.2840.114 350.1.13.10 4.2.7.2.686 [id number] 2020-08-22 16:00:00 2020-08-22 16:00:00 Outpatient MADHAVI MCNAIR [facility] [id number] [facility] 2020-08-22 13:40:00 2020-08-22 13:40:00 Outpatient MADHAVI MCNAIR [facility] [id number] [facility] 2020-08-13 00:00:00 2020-08-13 00:00:00 Telephone ZoëLiberty anaya [facility] 1.2840.114 350.1.13.10 4.2.7.2.686 [id number] [facility] 2020-08-09 00:00:00 2020-08-09 00:00:00 Telephone ZoëLiberty anaya [facility] 1.2.840.114 350.1.13.10 4.2.7.2.686 [id number] [facility] 2020-08-09 00:00:00 2020-08-09 00:00:00 Telephone ZoëLiberty anaya [facility] 1.2840.114 350.1.13.10 4.2.7.2.686 [id number] [facility] 2020-08-08 14:46:51 2020-08-08 16:51:17 Office Visit [place] [facility] 1.2840.114 350.1.13.10 4.2.7.2.686 [id number] [facility] 2020-08-08 15:00:00 2020-08-08 15:00:00 Outpatient R ZOËLIBERTY ANAYA [facility] [id number] [facility] 2020-07-03 00:00:00 2020-07-03 00:00:00 Orders Only Doctor Unassigned, [place] [facility] 1.2.840.114 350.1.13.10 4.2.7.2.686 [id number] [id number] [facility] 2020-06-17 13:35:31 2020-06-17 14:15:17 Office Visit Antonia Swain [facility] 1..114 350.1.13.10 4.2.7.2.686 [id number] [facility] 2020-06-17 13:40:00 2020-06-17 13:40:00 Outpatient R ELINA ROME [facility] [id number] [facility] 2020-05-18 00:00:00 2020-05-18 00:00:00 Refill Kassidy Arenas [facility] 1..114 350.1.13.10 4.2.7.2.686 [id number] 225 [id number] [facility] 2020-05-14 00:00:00 2020-05-14 00:00:00 Telephone Elina Rome [facility] 1..114 350.1.13.10 4.2.7.2.686 [id number] 225 [id number] [facility] 2020-05-06 00:00:00 2020-05-06 00:00:00 Telephone Elina Rome [facility] 1.840.114 350.1.13.10 4.2.7.2.686 [id number] 225 [id number] [facility] 2020-04-26 15:36:43 2020-04-26 15:56:43 Office Visit Kassidy Arenas [facility] 1.840.114 350.1.13.10 4.2.7.2.686 [id number] 225 [id number] [facility] 2020-04-26 15:40:00 2020-04-26 15:40:00 Outpatient KASSIDY BOONE [facility] [id number] [facility] 2020-04-15 00:00:00 2020-04-15 00:00:00 Refill [place] [facility] 1.0.114 350.1.13.10 4.2.7.2.686 [id number] [facility] 2020-01-03 14:40:00 2020-01-03 14:40:00 Outpatient REJI EVANS [facility] [id number] [facility] 2019-10-27 00:00:00 2019-10-27 00:00:00 Telephone Aiden Cooney [facility] 1.0.114 350.1.13.10 4.2.7.2.686 [id number] 225 [id number] [facility] 2019-10-18 23:49:28 2019-10-19 02:20:00 Emergency X SOSA ADAMES [facility] ERT [id number] [facility] 2019-10-18 23:49:28 2019-10-19 02:20:00 Emergency Sosa Adames [facility] 1.0.114 350.1.13.10 4.2.7.2.686 [id number] 014 [id number] [facility] 2019-10-18 00:00:00 2019-10-18 00:00:00 Nurse Triage Sandra Henderson [facility] 1.840.114 350.1.13.10 4.2.7.2.686 [id number] [facility] 2019-10-09 00:00:00 2019-10-09 00:00:00 Telephone IvetNareshrichie Armijo [facility] 1.2.840.114 350.1.13.10 4.2.7.2.686 [id number] [facility] 2019-09-21 13:27:07 2019-09-21 17:09:32 Office Visit [place] [facility] 1.2.840.114 350.1.13.10 4.2.7.2.686 [id number] 225 [id number] [facility] 2019-09-21 13:40:00 2019-09-21 13:40:00 Outpatient R LIBERTY CAMP [facility] [id number] [facility] 2019-08-30 15:01:37 2019-08-30 15:11:37 Office Visit Antonia Pike [facility] 1.2.840.114 350.1.13.10 4.2.7.2.686 [id number] 225 [id number] [facility] 2019-08-22 15:33:37 2019-08-22 15:43:37 Office Visit IvetNaresh truongrichie Armijo [facility] 1.2.840.114 350.1.13.10 4.2.7.2.686 [id number] 225 [id number] [facility] 2019-08-21 09:14:31 2019-08-21 10:35:00 Emergency Ashley Avendano [facility] 1.2.840.114 350.1.13.10 4.2.7.2.686 [id number] [id number] [facility] 2019-08-10 11:01:47 2019-08-10 11:21:47 Nurse Visit NurseOsvaldo Maria P Alvin [facility] 1.2.840.114 350.1.13.10 4.2.7.2.686 [id number] [facility] 2019-08-09 09:22:22 2019-08-09 12:41:52 Office Visit Teresa Antonia Armijo [facility] 1.2.840.114 350.1.13.10 4.2.7.2.686 [id number] [facility] 2019-08-09 00:00:00 2019-08-09 00:00:00 Orders Only Antonia Pike [facility] 1.2.840.114 350.1.13.10 4.2.7.2.686 [id number] [id number] [facility] 2019-07-28 00:00:00 2019-07-28 00:00:00 Orders Only Doctor Unassigned, [place] [facility] 1.2.840.114 350.1.13.10 4.2.7.2.686 [id number] [facility] 2019-03-30 12:55:51 2019-03-30 13:15:51 Office Visit Kassidy Arenas [facility] 1.2.840.114 350.1.13.10 4.2.7.2.686 [id number] 225 [id number] [facility] 2019-03-29 00:00:00 2019-03-29 00:00:00 Telephone Elina Rmoe [facility] 1.2.840.114 350.1.13.10 4.2.7.2.686 [id number] [facility] 2019-03-27 09:41:28 2019-03-27 09:51:28 Office Visit Aiden Cooney [facility] 1.2.840.114 350.1.13.10 4.2.7.2.686 [id number] [facility] 2019-03-22 15:41:22 2019-03-22 23:59:00 Hospital Encounter Aiden Cooney [facility] 1.2.840.114 350.1.13.10 4.2.7.2.686 [id number] [facility] 2019-03-21 15:31:39 2019-03-22 09:26:38 Office Visit Mike Heard Aiden Cooney [facility] 1.2.840.114 350.1.13.10 4.2.7.2.686 [id number] [facility] 2019-03-08 09:03:07 2019-03-08 09:13:07 Office Visit Aiden Cooney [facility] 1.2.840.114 350.1.13.10 4.2.7.2.686 [id number] 225 [id number] [facility] 2019-03-03 10:38:58 2019-03-03 11:09:50 Office Visit Aiden Cooney [facility] 1.2.840.114 350.1.13.10 4.2.7.2.686 [id number] 225 [id number] [facility] 2019-02-10 15:44:39 2019-02-10 23:59:00 [facility] 1.2.840.114 350.1.13.10 4.2.7.2.686 [id number] [facility] 2019-02-10 08:00:00 2019-02-10 15:43:00 [facility] 1.2.840.114 350.1.13.10 4.2.7.2.686 [id number] [facility] Results Test Description Test Time Test Comments Results Result Co mments Source [facility] WITH [id number] 11:43:20* Test Item Value Reference Range Interpretation [...] 32.0 g/dL 31.6-35.1 RDW-SD (test code = 02794-7) 47.8 fL 39.0-49.9 RDW-CV (test code = 788-0) 14.8 % 12.0-15.5 PLT (test code = 777-3) 282 See_Comment [Automated messa ge] The system which generated this result transmitted reference range: 166 - 358 10*3/?L. The reference range was not used to interpret this result as normal/abnormal. MPV (test code = 88999-4) 10.6 fL 9.5-12.9 NRBC/100 WBC (test code = 0267329375) 0.0 See_Comment [Automated Glycode ssage] The system which generated this result transmitted reference range: 0.0 - 10.0 /100 WBCs. The reference range was not used to interpret this result as normal/abnormal. NRBC x10^3 (test code = 9761811111) See_Comment [Automated messa ge] The system which generated this result transmitted reference range: 10*3/?L. The reference range was not used to interpret this result as normal/abnormal. GRAN MAT (NEUT) % (test code = 770-8) 51.7 % IMM GRAN % (test code = 7925883026) 0.20 % LYMPH % (test code = 736-9) 40.7 % MONO % (test code = 5905-5) 6.6 % EOS % (test code = 713-8) 0.4 % BASO % (test code = 706-2) 0.4 % GRAN MAT x10^3(ANC) (test code = 9644486363) 4.76 10*3/uL 1.88-7.09 IMM GRAN x10^3 (test code = 4485904997) 0.00-0.06 LYMPH x10^3 (test code = 731-0) 3.76 10*3/uL 1.32-3.29 H MONO x10^3 (test code = 742-7) 0.61 10*3/uL 0.33-0.92 EOS x10^3 (test code = 711-2) 0.04 10*3/uL 0.03-0.39 BASO x10^3 (test code = 704-7) 0.04 10*3/uL 0.01-0.07 Lab Interpretation (test code = 45574-2) Abnormal [facility] [id number] 15:31:00* Test Item Value Reference Range Interpretation Comme nts POCT PREG (test code = 1605) Negative On board controls acceptable with C Line (test code = 3574) Yes POCT PREG LOT # (test code = 3575) POCT PREG TEST DATE ( test code = 3576) [facility] [id number] 15:31:00* Test Item Value Reference Range Interpretation Comme nts POCT PREG (test code = 1605) Negative On board controls acceptable with C Line (test code = 3574) Yes POCT PREG LOT # (test code = 3575) POCT PREG TEST DATE ( test code = 3576) [id number] 11:21:25* Test Item Value Reference Range Interpretation Comme nts MAGNESIUM (test code = 5682157726) 2.2 mg/dL 1.7-2.4 Lab Interpretation (test cod e = 13310-0) [facility] [id number] 11:21:25* Test Item Value Reference Range Interpretation Comme nts MAGNESIUM (test code = 6003163656) 2.2 mg/dL 1.7-2.4 Lab Interpretation (test cod e = 73553-7) [facility] (NA, K, CL, CO2, GLUCOSE, BUN, CREATININE, CA)2023-05-02 11:21:05* Test Item Value Reference Range Interpretation Comme nts NA (test code = 7835115684) 138 mmol/L 135-145 K (test code = 2566624722) 3.8 mmol/L 3.5-5.0 CL (test code = 8616333611) 102 mmol/L 98-108 CO2 TOTAL (test code = 0457382487) 22 mmol/L 23-31 L AGAP (test code = 9970033995) 14 2-16 BUN (test code = 8294393150) 21 mg/dL 7-23 GLUCOSE (test code = 1047328549) 88 mg/dL 70-110 CREATININE (test code = 7478857129) 0.65 mg/dL 0.50-1.04 CALCIUM (test code = 6639232635) 9.3 mg/dL 8.6-10.6 eGFR (test code = 3649361764) 116.2 mL/min/1.73m2 RADHA (test code = RADHA) [...] imaging tests). Lab Interpretation (test code = 25197-1) [facility] (70225) (ALB,T.PRO,BILI T,BU/BC,ALT,AST,ALK PHOS)2023-05-02 11:21:05* Test Item Value Reference Range Interpretation Comme nts TOTAL BILI (test code = 7923646696) 0.3 mg/dL 0.1-1.1 BILI UNCON (test code = 8498958255) 0.2 mg/dL 0.1-1.1 BILI CONJ (test code = 5738552630) 0.0 mg/dL 0.0-0.3 T PROTEIN (test code = 2820901501) 7.6 g/dL 6.3-8.2 ALBUMIN (test code = 9506987004) 4.4 g/dL 3.5-5.0 ALK PHOS (test code = 1272089161) 72 U/L 34-122 ALTv (test code = 1742-6) 13 U/L 5-35 AST(SGOT) (test code = 1850685159) 17 U/L 13-40 Lab Interpretation (test cod e = 56696-5) [facility] (NA, K, CL, CO2, GLUCOSE, BUN, CREATININE, CA)2023-05-02 11:21:05* Test Item Value Reference Range Interpretation Comme nts NA (test code = 9275265904) 138 mmol/L 135-145 K (test code = 9332656346) 3.8 mmol/L 3.5-5.0 CL (test code = 8858482105) 102 mmol/L 98-108 CO2 TOTAL (test code = 4273925123) 22 mmol/L 23-31 L AGAP (test code = 0103687107) 14 2-16 BUN (test code = 8608048534) 21 mg/dL 7-23 GLUCOSE (test code = 0181707365) 88 mg/dL 70-110 CREATININE (test code = 9508258291) 0.65 mg/dL 0.50-1.04 CALCIUM (test code = 6592933053) 9.3 mg/dL 8.6-10.6 eGFR (test code = 9036298958) 116.2 mL/min/1.73m2 RADHA (test code = RADHA) [...] imaging tests). Lab Interpretation (test code = 27818-8) [facility] (10895) (ALB,T.PRO,BILI T,BU/BC,ALT,AST,ALK PHOS)2023-05-02 11:21:05* Test Item Value Reference Range Interpretation Comme nts TOTAL BILI (test code = 1867993088) 0.3 mg/dL 0.1-1.1 BILI UNCON (test code = 1928216576) 0.2 mg/dL 0.1-1.1 BILI CONJ (test code = 5819426484) 0.0 mg/dL 0.0-0.3 T PROTEIN (test code = 3202187146) 7.6 g/dL 6.3-8.2 ALBUMIN (test code = 9831484554) 4.4 g/dL 3.5-5.0 ALK PHOS (test code = 8658549022) 72 U/L 34-122 ALTv (test code = 1742-6) 13 U/L 5-35 AST(SGOT) (test code = 3454990441) 17 U/L 13-40 Lab Interpretation (test cod e = 54643-5) Normal [facility] with Ipdpaetfwznu0160-31-42 10:46:23* Test Item Value Reference Range Interpretation Comme nts WBC (test code = 6690-2) 7.54 See_Comment [Automated [employer]] The system which generated this result transmitted reference range: 4.30 - 11.10 10*3/?L. The reference range was not used to interpret this result as normal/abnormal. RBC (test code = 789-8) 4.05 See_Comment [Automated [employer]] The system which generated this result transmitted [...] 32.3 g/dL 31.6-35.1 RDW-SD (test code = 72428-6) 46.6 fL 39.0-49.9 RDW-CV (test code = 788-0) 14.7 % 12.0-15.5 PLT (test code = 777-3) 283 See_Comment [Automated messa ge] The system which generated this result transmitted reference range: 166 - 358 10*3/?L. The reference range was not used to interpret this result as normal/abnormal. MPV (test code = 47973-1) 10.5 fL 9.5-12.9 NRBC/100 WBC (test code = 0976460082) 0.0 See_Comment [Automated Glycode ssage] The system which generated this result transmitted reference range: 0.0 - 10.0 /100 WBCs. The reference range was not used to interpret this result as normal/abnormal. NRBC x10^3 (test code = 2453300665) See_Comment [Automated messa ge] The system which generated this result transmitted reference range: 10*3/?L. The reference range was not used to interpret this result as normal/abnormal. GRAN MAT (NEUT) % (test code = 770-8) 40.7 % IMM GRAN % (test code = 3322069101) 0.10 % LYMPH % (test code = 736-9) 48.4 % MONO % (test code = 5905-5) 8.8 % EOS % (test code = 713-8) 1.3 % BASO % (test code = 706-2) 0.7 % GRAN MAT x10^3(ANC) (test code = 7740833295) 3.07 10*3/uL 1.88-7.09 IMM GRAN x10^3 (test code = 6564784589) 0.00-0.06 LYMPH x10^3 (test code = 731-0) 3.65 10*3/uL 1.32-3.29 H MONO x10^3 (test code = 742-7) 0.66 10*3/uL 0.33-0.92 EOS x10^3 (test code = 711-2) 0.10 10*3/uL 0.03-0.39 BASO x10^3 (test code = 704-7) 0.05 10*3/uL 0.01-0.07 Lab Interpretation (test code = 85888-7) Abnormal [facility] with Irrtrsqqrexe1202-41-74 10:46:23* Test Item Value Reference Range Interpretation [...] 32.3 g/dL 31.6-35.1 RDW-SD (test code = 63297-9) 46.6 fL 39.0-49.9 RDW-CV (test code = 788-0) 14.7 % 12.0-15.5 PLT (test code = 777-3) 283 See_Comment [Automated messa ge] The system which generated this result transmitted reference range: 166 - 358 10*3/?L. The reference range was not used to interpret this result as normal/abnormal. MPV (test code = 23594-9) 10.5 fL 9.5-12.9 NRBC/100 WBC (test code = 6725457372) 0.0 See_Comment [Automated Glycode ssage] The system which generated this result transmitted reference range: 0.0 - 10.0 /100 WBCs. The reference range was not used to interpret this result as normal/abnormal. NRBC x10^3 (test code = 0485662600) See_Comment [Automated messa ge] The system which generated this result transmitted reference range: 10*3/?L. The reference range was not used to interpret this result as normal/abnormal. GRAN MAT (NEUT) % (test code = 770-8) 40.7 % IMM GRAN % (test code = 7476660066) 0.10 % LYMPH % (test code = 736-9) 48.4 % MONO % (test code = 5905-5) 8.8 % EOS % (test code = 713-8) 1.3 % BASO % (test code = 706-2) 0.7 % GRAN MAT x10^3(ANC) (test code = 7536679475) 3.07 10*3/uL 1.88-7.09 IMM GRAN x10^3 (test code = 2392061661) 0.00-0.06 LYMPH x10^3 (test code = 731-0) 3.65 10*3/uL 1.32-3.29 H MONO x10^3 (test code = 742-7) 0.66 10*3/uL 0.33-0.92 EOS x10^3 (test code = 711-2) 0.10 10*3/uL 0.03-0.39 BASO x10^3 (test code = 704-7) 0.05 10*3/uL 0.01-0.07 Lab Interpretation (test code = 20837-0) [facility]08:00* Test Item Value Reference Range Interpretation Comme nts SURGICAL (test code = SR) R UN DATE: 11/03/22 [place] - LAB PAGE 1 RUN TIME: 1409 Specimen Inquiry RUN USER: INTERFACE P ATIENT: [facility] #: [id number] LOC: JORDI #: [id number] AGE/SX: 21/F ROOM: [facility] RE10/30/22REG DR: Luis Burciaga MD : 02 BED: 1 DIS: 11/02/22 STATUS: DIS IN TLOC: SPEC #: [id number] RECD: 11/02/22 STATUS: GLENN EVERETT #: [id number] SLOAN: 10/31/22- SUBM DR: Luis Burciaga MD ENTERED: 11/02/22 SP TYPE: SURGICAL OTHR DR: ORDERED: 11547, ANATOMIC SPEC PROCEDURES: 61142 (11/02/22) TISSUES: A. PLACENTA, THIRD TRIMESTER (28 + WEEKS) CLINICAL HISTORY SAME, DELIVERED FINAL DIAGNOSIS Placenta: Third trimester placenta with acute chorionitis, deciduitis; 713 g (expected heyh466 g); trivascular umbilical cord without significant inflammation.. [...] weighs 713 g. Technical component performed at [address], [place] [address] Unless gross only, the diagnosis is based [...] 11/03/22 1408 END OF REPORT CBC W/AUTO [id number] 07:54:00* Test Item Value Reference Range Interpretation [...] c ode = MDIFF) NO RAPID PLASMA [id number] 11:50:00* Test Item Value Reference Range Interpretation Comme nts RAPID PLASMA REAGIN (test co de = RPR) NONREACTIVE NONREACTIVE AG HEPATITIS B [id number] 11:50:00* Test Item Value Reference Range Interpretation Comme nts AG HEPATITIS B SURFACE (test code = HBSAG) NON REACTIVE INDEX NonReactive AB HIV 1 11:50:00* Test Item Value Reference Range Interpretation Comme nts AB HIV 1 2 (test code = VAV30RM) Nonreactive Nonreactive CBC W/AUTO [id number] 19:59:00* Test Item Value Reference Range Interpretation [...] c ode = MDIFF) NO AMNISURE (ROM) [id number] 18:12:00* Test Item Value Reference Range Interpretation Comme nts AMNISURE (ROM) TEST (test co de = AMNI) POSITIVE NEGATIVE A AMNISURE (ROM) [id number] 21:41:00* Test Item Value Reference Range Interpretation Comme nts AMNISURE (ROM) TEST (test co de = AMNI) NEGATIVE NEGATIVE [id number] 20:11:00* Test Item Value Reference Range Interpretation Comme nts FIBRONECTIN (test code = FFN) POSITIVE NEGATIVE A UA RFLX MICR CULT IF [id number] 20:11:00* Test Item Value Reference Range Interpretation [...] PainSpecimen Description: CLEAN CATCHDRUGS OF ABUSE SCREEN [id number] 20:10:00* Test Item Value Reference Range Interpretation [...] be used for non-medical purposes. - BIOPHYS [id number] 00:00:00 [facility] MADELINE SOUTHBOROUGHName: BI EDMONDS : 2000 Sex: F Name: BI EDMONDS [facility] Muddy : 2000 Age/S: 21 / F [address] [place] [address] Unit #: [id number] Loc: [place] [address] Phys: Zoila Gomez DO Acct: [id number] Dis Date: Status: REG ER PHONE #: [phone] Exam Date: 09/26/20222004 FAX #: [phone] Reason: decreased FM EXAMS: CPT CODE: [id number] US BIOPHYS PROF [id number] PROCEDURE INFORMATION: Exam: US Biophysical Profile Without Non-Stress Test Exam date and time: 09/26/2022 7:49 PM Age: 21 years old Clinical indication: Pain indication: Abdominal pain; ; Additional info: Decreased fm TECHNIQUE: Imaging protocol: US biophysical profile without non-stress testing. COMPARISON: US FET BIO PH IN W/O NST 09/07/2022 11:03 PM A limited [...] PAGE 1 Signed Report- US PREG AFTER [id number] 00:00:00 [facility] MADELINE COFFMANName: BI EDMONDS : 2000 Sex: F Name: BI EDMONDS [facility] Madeline Coffman : 2000 Age/S: 21 / F [address] [place] [address] Blvd Unit #: [id number] Loc: [place] [address] Phys: Zoila Gomez Acct: [id number] Dis Date: Status: REG ER PHONE #: [phone] Exam Date: 09/26/20222004 FAX #: [phone] Reason: PTL EXAMS: CPT CODE: [id number] US PREG AFTER 1ST TRI [id number] PROCEDURE INFORMATION: Exam: US After First Trimester, [...] 1 Signed Report (CONTINUED) Name: BI EDMONDS [facility] Muddy : 2000 Age/S: 21 / F [address] [place] [address] Unit #: [id number] Loc: [place] [address] Phys: Zoila Gomez DO Acct: [id number] Dis Date: Status: REG ER PHONE #: [phone] Exam Date: 09/26/20222004 FAX #: [phone] Reason: PTL EXAMS: CPT CODE: [id number] US PREG AFTER TRI 69501 (Continued) movement: 2. breathin Amniotic fluid: 2 Total score 8/8 IMPRESS ION: 1. Single viable intrauterine gestation in cephalic presentation. 2. Normal growth concordant with dates. 3. Normal biophysical profile. at 2116 Reported and signed by: Jeromy Wolfe M.D. CC: Zoila Gomez DO Technologist: Josefina Fitch Trnnmb Date/Time: 09/26/2022 (2116) [email or web address] Orig Print D/T: S: 09/26/2022 (2116) Probe: PAGE 2 Signed ReportAMNISURE (ROM) [id number] 14:39:00* Test Item Value Reference Range Interpretation Comme nts AMNISURE (ROM) TEST (test co de = AMNI) NEGATIVE NEGATIVE CHLAMYDIA GC DNA BY [id number] 13:07:00* Test Item Value Reference Range Interpretation Comme nts C. TRACHOMATIS DNA BY PCR (test code = CHLAMTDNA) Negative Negative N. GONORRHOEAE DNA BY PCR (test code = NGONORDNA) Negative Negative Performed At: [facility] [address] [place], [place] [id number] Kyle L MD Ph:[phone] UA RFLX MICR CULT IF [id number] 21:16:00* Test Item Value Reference Range Interpretation [...] culture: Suprapubic PainSpecimen Description: CLEAN CATCHRAPID PLASMA [id number] 11:04:00* Test Item Value Reference Range Interpretation Comme nts RAPID PLASMA REAGIN (test co de = RPR) NONREACTIVE NONREACTIVE AG HEPATITIS B [id number] 11:04:00* Test Item Value Reference Range Interpretation Comme nts AG HEPATITIS B SURFACE (test code = HBSAG) NON REACTIVE INDEX NonReactive AB HIV 1 11:04:00* Test Item Value Reference Range Interpretation Comme nts AB HIV 1 2 (test code = KTS82BH) Nonreactive Nonreactive [id number] 08:05:00* Test Item Value Reference Range Interpretation Comme nts MAGNESIUM (test code = MAG) 4.22 mg/dL 1.80-2.40 HH CBC W/AUTO [id number] 00:08:00* Test Item Value Reference Range Interpretation [...] MDIFF) NO - US FET BIO PH IN W/O [id number] 00:00:00 [facility] 2000 Sex: F Name: LUIS EDMONDS [facility] : 2000 Age/S: 21 / F [address] [place] [address] Blvd Unit #: [id number] Loc: [place] [address] Phys: Juany Carrillo MD Acct: [id number] Dis Date: Status: ADMIN PHONE #: [phone] Exam Date: 09/07/20222315 FAX #: [phone] Reason: IUP@29 wks; Leaking fluid; ROM plus positive EXAMS: CPT CODE: [id number] US FET BIO PH IN W/O NST 53987 PROCEDURE INFORMATION: Exam: US , Limited Exam [...] 1 Signed Report (CONTINUED) Name: LUIS EDMONDS [facility] [place] : 2000 Age/S: 21 / F [address] [place] [address] Unit #: [id number] Loc: [place] [address] Phys: Juany Carrillo MD Acct: [id number] Dis Date: Status: ADM IN PHONE #: [phone] Exam Date: 09/07/2022 2316 FAX #: [phone] Reason: IUP@29 wks; Leaking fluid; ROM plus positive EXAMS: CPT CODE: [id number] US FET BIO PH IN W/O NST 01911(Continued) A limited transabdominal obstetrical ultrasound was performed [...] (0002) Probe: PAGE 2 Signed Report- US [id number] 00:00:00 [facility] : 2000 Sex: FName: LUIS EDOMNDS [facility] : 2000 Age/S: 21 / F [address] [place] [address] Unit #:[id number] Loc: [place] [address] Phys: Juany Carrillo MD Acct: [id number] Dis Date: Status: ADMIN PHONE #: [phone] Exam Date: 09/07/20222314 FAX #: [phone] Reason: see US FET BIO PH IN W/O NST EXAMS: CPT CODE: [id number] US LTD 37980 PROCEDURE INFORMATION: Exam: US , Limited Exam [...] 1 Signed Report (CONTINUED) Name: LUIS EDMONDS [facility] [place] : 2000 Age/S: 21 / F [address] [place] [address] Unit #: [id number]: [place] [address] Phys: Juany Carrillo MD Acct: [id number] Dis Date: Status: ADM IN PHONE #: [phone] Exam Date: 09/07/20222314 FAX #: [phone] Reason: see US FET BIO PH IN W/O NSTEXAMS: CPT CODE: [id number] US LTD 49544 (Continued) A limited transabdominal obstetricalultrasound was performed [...] S: 09/08/2022 (1) Probe: PAGE 2 Signed ReportAMNISURE (ROM) [id number] 22:26:00* Test Item Value Reference Range Interpretation Comme nts AMNISURE (ROM) TEST (test co de = AMNI) POSITIVE NEGATIVE A UA RFLX MICR CULT IF [id number] 22:12:00* Test Item Value Reference Range Interpretation [...] for culture: Suprapubic PainSpecimen Description: CLEAN CATCHFETAL [id number] 16:47:00* Test Item Value Reference Range Interpretation Comme nts FIBRONECTIN (test code = FFN) NEGATIVE NEGATIVE URINALYSIS [id number] 16:34:00* Test Item Value Reference Range Interpretation [...] SEEN - XR ANKLE 3 + V [id number] 00:00:00 [facility] : 2000 Sex: F FAX: Emily Mckoy MD [phone] [place]: [place]: PRE FAX: Romeo Chavez Name: LUIS EDMONDS FSED : 2000 Age/S: 21/F [address] [facility] Unit #: [id number] Loc: [place] [address] Phys:Ghanshyam Chavez MD Acct: [id number] Dis Date: Status: PRE ER PHONE #: Exam Date: 03/06/2022 1600 FAX #: Reason: R ANKLE PAIN AFTER FALL EXAMS: CPT CODE: [id number] XR ANKLE 3 + V RT 09873 PROCEDURE INFORMATION: Exam: XR Right Ankle Exam [...] Technologist: Katerina Rosas RT(R)(CT) Trnscrd Date/Time/By: 03/06/2022 (9760) :By: Kristian Orig Print D/T: S: 03/06/2022 (9812) PAGE 1 Signed Report- XR FOOT 3 + V [id number] 00:00:00 [facility] : 2000 Sex: F FAX: Emily Mckoy MD [phone] [place] [place] [facility] [place] FAX: Romeo Chavez Name: MARIAMLUIS Armijo FSED : 2000 Age/S: 21/F [address] [facility]. Unit #: [id number] Loc: [place] [address] Phys: Ghanshyam Chavez MD Acct: [id number] Dis Date: Status: PRE ER PHONE #: Exam Date: 03/06/2022 1559 FAX #: Reason: r foot injury EXAMS: CPT CODE: [id number] XR FOOT 3 + V RT 84129 PROCEDURE INFORMATION: Exam: XR Right Foot Exam [...] Technologist: Katerina Rosas RT(R)(CT) Trnscrd Date/Time/By: 03/06/2022 (4534) : By: KaneSBL Orig Print D/T: S: 03/06/2022 (1771) PAGE 1 Signed ReportURINE HCG TRIAGE (ER ONLY)2021-11-11 08:40:00* Test Item Value Reference Range Interpretation Comme nts URINE HCG TRIAGE (ER ONLY) ( test code = HCGTRIAGE) NEGATIVE Negative Urine Test Result: NEGATIVEAre internal controls (presence of a control line & clear background) OK? YLot # of HCG Test Kit: [id number] Date of Kit: 02/15/23Test Performed by:Carlo Perfomed on: 11/11/21COMMENTS: NEGATIVEUA DIPSTICK [id number] 00:46:00* Test Item Value Reference Range Interpretation Comme nts UA GLUCOSE DIPSTIC POC (test code = GLUUP) NEGATIVE NEGATIVE UA BILIRUBIN DIPSTICK (test code = BILU) NEGATIVE NEGATIVE UA KETONE DIPSTICK POC (test code = KETUP) NEGATIVE NEGATIVE UA SPECIFIC GRAVITY (test code = SGU) 1.010 1.005-1.030 N UA BLOOD DIPSTIC POC (test code = BLUP) NEGATIVE NEGATIVE Performed by certified concrete paving machine operator at [facility] UA PH DIPSTIC POC (test code = PHUP) 7 5.0-7.0 N UA PROTEIN DIPSTICK POC (test code = DPROUP) NEGATIVE NEGATIVE UA UROBILINIOGEN QUAL (test code = UROQL) NORMAL 0.2-1.0 UA NITRITE DIPSTICK POC (test code = NITUP) NEGATIVE Negative UA LEUKOCYTE ESTERASE W REFLEX (test code = LEUUR) Negative NEGATIVE SURGICAL PATH [id number] 13:13:00* Test Item Value Reference Range Interpretation Comme nts SURGICAL PATH SPECIMENS (test code = S) RUN DATE: 03/28/21 [place] - LAB PAGE 1 RUN TIME: 1313 Specimen Inquiry RUN USER: INTERFACE ARTEMIO ENT: MARIAMLUIS [facility] [place] [facility]: [id number] AGE/SX: 20/F ROOM: [facility] RE03/25/21REG DR: Luis Burciaga MD : [birth year] BED: 1 DIS: STATUS: ADM IN TLOC: SPEC #: [id number] RECD: 03/27/21 STATUS: GLENN REQ #: [id number] SLOAN: 03/26/21- SUBM DR: Luis Burciaga MD ENTERED: 03/27/21 SP TYPE: SURG SPEC OTHR DR: ORDERED: GM LEVEL 5 CODES: RA2778 - PLACENTA, NOS PROCEDURES: GM LEVEL 5 [...] 03/28/21 1313 END OF REPORT CBC W/AUTO [id number] 07:03:00* Test Item Value Reference Range Interpretation [...] ode = MDIFF) NO CORD VENOUS BLOOD [id number] 18:41:00* Test Item Value Reference Range Interpretation [...] = O2SCV) 17 % CORD ARTERIAL BLOOD [id number] 18:40:00* Test Item Value Reference Range Interpretation [...] O2S/C) 25 % 72-77 L RAPID PLASMA [id number] 10:40:00* Test Item Value Reference Range Interpretation Comme nts RAPID PLASMA REAGIN (test co de = RPR) NONREACTIVE NONREACTIVE AG HEPATITIS B [id number] 10:40:00* Test Item Value Reference Range Interpretation Comme nts AG HEPATITIS B SURFACE (test code = HBSAG) NON REACTIVE INDEX NonReactive AB HIV 1 10:40:00* Test Item Value Reference Range Interpretation Comme nts AB HIV 1 2 (test code = TCN81PH) Nonreactive Nonreactive COVID 19 Asymptomatic IH [id number] 20:20:00* Test Item Value Reference Range Interpretation [...] perform moderate, high or waivedcomplexity tests. URINALYSIS [id number] 18:48:00* Test Item Value Reference Range Interpretation [...] MUCU) TRACE /LPF NONE SEEN RAPID PLASMA [id number] 18:11:00* Test Item Value Reference Range Interpretation Comme nts RAPID PLASMA REAGIN (test code = RPR) NONREACTI VE AG HEPATITIS B [id number] 18:11:00* Test Item Value Reference Range Interpretation Comme nts AG HEPATITIS B SURFACE (test code = HBSAG) NON REACTIVE INDEX NonReactive AB HIV 1 18:11:00* Test Item Value Reference Range Interpretation Comme nts AB HIV 1 2 (test code = UBK93YS) Nonreactive Nonreactive COMPREHENSIVE METABOLIC [id number] 17:45:00* Test Item Value Reference Range Interpretation [...] = ALKP) 153 IUnit/L 60-350 N URIC [id number] 17:45:00* Test Item Value Reference Range Interpretation Comme nts URIC ACID (test code = URIC) 4.0 mg/dL 2.6-7.2 N LACTIC DEHYDROGENASE(LDH)2021-03-25 17:45:00* Test Item Value Reference Range Interpretation Comme nts LACTIC DEHYDROGENASE(LDH) (t est code = LDH) 225 IUnits/L 84-246 N CBC W/AUTO [id number] 17:24:00* Test Item Value Reference Range Interpretation [...] (test c ode = MDIFF) CBC W/AUTO [id number] 17:24:00* Test Item Value Reference Range Interpretation [...] ode = MDIFF) NO - US BIOPHYS [id number] 00:00:00 [facility] : 2000 Sex: FName: LUIS EDMONDS [facility] : 2000 Age/S: 20 / F [address] [place] [address] Unit #:[id number] Loc: [place] [address] Phys: Effie Solitario MD Acct: [id number] Dis Date: Status: REG ER PHONE #: [phone] Exam Date: 03/12/202141 FAX #: [phone] Reason: Possible SROM, please evaluate ISMA EXAMS: CPT CODE: [id number] US BIOPHYS PROF 69446 PROCEDURE INFORMATION: E xam: US Biophysical Profile [...] Reinaldo Will M.D. CC: Technologist: Yuki Ray RDMS(AB)(OB) Trnscb Date/Time: 03/13/2021 (56) Sabine Orig Print D/T: S: 03/13/2021 (56) Probe: PAGE 1 Signed ReportAMNISURE (ROM) [id number] 22:05:00* Test Item Value Reference Range Interpretation Comme nts AMNISURE (ROM) TEST (test co de = AMNI) NEGATIVE NEGATIVE URINALYSIS [id number] 21:48:00* Test Item Value Reference Range Interpretation [...] = MUCU) TRACE /LPF NONE SEEN URINALYSIS [id number] 07:00:00* Test Item Value Reference Range Interpretation [...] TRACE /LPF NONE SEEN - US BIOPHYS [id number] 00:00:00 [facility] : 2000 Sex: FName: LUIS EDMONDS [facility] : 2000 Age/S: 20 / F [address] [place] [address] Unit #: [id number] Loc: [place] [address] Phys: Effie Solitario MD Acct: [id number] Dis Date: Status: REG ER PHONE #: [phone] Exam Date: 03/01/2021 [facility] FAX #: [phone] Reason: decreased movements EXAMS: CPT CODE: [id number] US BIOPHYS PROF 04039 PROCEDURE INFORMATION: Exam: US Biophysical Profile With [...] Technologist: Vilma Robles RDMS(AB) Trnscb Date/Time: 03/01/2021 (08) [email or web address] Orig Print D/T: S: 03/01/2021 (0811) Probe: PAGE 1 Signed Report AMNISURE (ROM) [id number] 16:16:00* Test Item Value Reference Range Interpretation Comme nts AMNISURE (ROM) TEST (test co de = AMNI) NEGATIVE NEGATIVE [id number] 16:16:00* Test Item Value Reference Range Interpretation Comme nts FIBRONECTIN (test code = FFN) NEGATIVE NEGATIVE [id number] 20:50:00* Test Item Value Reference Range Interpretation Comme nts FIBRONECTIN (test code = FFN) NEGATIVE NEGATIVE URINALYSIS [id number] 20:32:00* Test Item Value Reference Range Interpretation [...] TRACE /LPF NONE SEEN - US BIOPHYS [id number] 00:00:00 [facility] : 2000 Sex: F Name: LUIS EDMONDS [facility] : 2000 Age/S: 20 / F [address] [place] [address] Unit #:[id number] Loc: [place] [address] Phys: Effie Solitario MD Acct: [id number] Dis Date: Status: REG ER PHONE #: [phone] Exam Date: 02/12/20212122 FAX #: [phone] Reason: Decreased movements EXAMS: CPT CODE: [id number] US BIOPHYS PROF 51754 PROCEDURE INFORMATION: Exam: US Biophysical Profile With [...] 1 Signed Report (CONTINUED) Name: LUIS EDMONDS [facility] : 2000 Age/S: 20 / F [address] [place] [address] Unit #: [id number] Loc: [place] [address] Phys: Effie Solitario MD Acct: [id number] Dis Date: Status: REG ER PHONE #: [phone] Exam Date: 02/12/20212122 FAX #: [phone] Reason: Decreased movements EXAMS: CPT CODE: [id number] US BIOPHYS PROF 31952 <Continued> at 2121 Reported and signed by: Geovanny Hughes D.O. CC: Technologist: Yuki Ray RDMS()(OB) Trnscb Date/Time: 02/12/2021 (2121) [email or web address] Orig Print D/T: S: 02/12/2021 (2148) Probe: PAGE 2 Signed Report URINALYSIS [id number] 03:25:00* Test Item Value Reference Range Interpretation [...] MUCU) TRACE /LPF NONE SEEN - US [id number] 17:34:00 [facility] : 2000 Sex: F Name: LUIS EDMONDS [facility] [place] : 2000 Age/S: 20 / F [address] [place] [address] Unit #: [id number] Loc: [place] [address] Phys: Pearl Chavez DO Acct: [id number] Dis Date: Status: REG ER PHONE #: [phone] Exam Date: 12/25/20201725 FAX #: [phone] Reason: h/o low ISMA, unsure if PROM, translabial cervic EXAMS: CPT CODE: [id number] LTD 17925 LIMITED ULTRASOUND INDICATION: with history of low [...] 1 Signed Report (CONTINUED) Name: LUIS EDMONDS [facility] : 2000 Age/S: 20 / F [address] [place] [address] Unit #: [id number] Loc: [place] [address] Phys: Pearl Chavez DO Acct: [id number] Dis Date: Status: REG ER PHONE #: [phone] ExamDate: 12/25/20201725 FAX #: [phone] Reason: h/o low ISMA, unsure if PROM, translabial cervic EXAMS: CPT CODE: [id number] US LTD 87980 <Continued> at 1734 Reported and signed by: Judah Izquierdo M.D. CC: Pearl Chavez DO Technologist: Merna Figueroa RDMS() Trnscb Date/Time: 12/25/2020 (1733) [email or web address] Orig Print D/T: S: 12/25/2020 (1736) Probe: PAGE 2 Signed ReportAMNISURE (ROM) [id number] 17:14:00* Test Item Value Reference Range Interpretation Comme nts AMNISURE (ROM) TEST (test co de = AMNI) NEGATIVE NEGATIVE URINALYSIS [id number] 17:10:00* Test Item Value Reference Range Interpretation [...] /HPF NONE A DRUGS OF ABUSE SCREEN [id number] 17:07:00* Test Item Value Reference Range Interpretation [...] for non-medical purposes. - US PREG AFTER [id number] 02:47:00 [facility] : 2000 Sex: F Name: LUIS EDMONDS [facility] [place] : 2000 Age/S: 19 / F [address] [place] [address] Blvd Unit #: [id number] Loc: [place] [address] Phys: Brittnee Ramirez MD Acct: [id number] Dis Date: Status: REG ER PHONE #: [phone] Exam Date: 11/23/2020 0144 FAX #: [phone] Reason: No PNC, bleeding,approximately 20 weeks EXAMS: CPT CODE: [id number] US PREG AFTER 1ST TRI 02221 EXAM: US, US PREG AFTER 1SR TRI: [...] 1 Signed Report (CONTINUED) Name: LUIS EDMONDS [facility] : 2000 Age/S: 19 / F [address] [place] [address] Unit #: [id number] Loc: [place] [address] Phys: Brittnee Ramirez MD Acct: [id number] Dis Date: Status: REG ER PHONE #: Exam Date: 11/23/2020 0144 FAX #: [phone] Reason: No PNC, bleeding, approximately 20 weeks EXAMS: CPT CODE: [id number] US PREG AFTER TRI 49911 <Continued> seen. Cervical length is not visualized. IMPRESSION: Single live fetus in variable presentation. heart rate is 140 bpm. 2. Sonographic EGA of 19 weeks 6 days and an sonographic DANY of 04/13/2021 +/- one standard deviation. SL:[JSYED-H] at 0247 Reported and signed by: Jeromy Wolfe M.D. CC: Brittnee Ramirez MD Technologist: Maryam Anderson RDMS()(AB) Trnscb Date/Time: 11/23/2020 (246) [email or web address] Orig Print D/T: S: 11/23/2020 (025) Probe: PAGE 2 Signed Report- US PREG AFTER [id number] 02:47:00 [facility] : 2000 Sex: F Name: LUIS EDMONDS [facility] [place] : 2000 Age/S: 19 / F [address] [place] [address] Blvd Unit #: [id number] Loc: [place] [address] Phys: Brittnee Ramirez MD Acct: [id number] Dis Date: Status: DEP ER PHONE #: [phone] Exam Date: 11/23/2020 0144 FAX #: [phone] Reason: No PNC, bleeding, approximately 20 weeks EXAMS: CPT CODE: [id number] US PREG AFTER 1ST TRI 76783 EXAM: US, US PREG AFTER 1SR TRI: [...] 1 Signed Report (CONTINUED) Name: LUIS EDMONDS [facility] : 2000 Age/S: 19 / F [address] [place] [address] Unit #: [id number] Loc: [place] [address] Phys: Brittnee Ramirez MD Acct: [id number] Dis Date: Status: DEP ER PHONE #: [phone] Exam Date: 11/23/2020143 FAX #: [phone] Reason: No PNC, bleeding, approximately 20 weeks EXAMS: CPT CODE: [id number] US PREG AFTER 1ST TRI 66922 <Continued> seen. Cervical length is not visualized. IMPRESSION: Single live fetus in variable presentation. heart rate is 140 bpm. 2. Sonographic EGA of 19 weeks 6 days and an sonographic DANY of 04/13/2021 +/- one standard deviation. SL:[JSYED-H] at 0247 Reported and signed by: Jeromy Wolfe M.D. CC: Brittnee Ramirez MD Technologist: Maryam Anderson RDMS()(AB)Trnscb Date/Time: 11/23/2020 (246) t.[email or web address].[email or web address] Orig Print D/T: S: 11/23/2020 (0250) Probe: PAGE 2 Signed ReportURINALYSIS [id number] 01:40:00* Test Item Value Reference Range Interpretation [...] /HPF NONE A DRUGS OF ABUSE SCREEN [id number] 01:40:00* Test Item Value Reference Range Interpretation [...] be used for non-medical purposes. CBC W/AUTO [id number] 01:27:00* Test Item Value Reference Range Interpretation [...] c ode = MDIFF) NO BASIC METABOLIC [id number] 02:51:00* Test Item Value Reference Range Interpretation [...] = CA) 9.5 mg/dL 8.0-10.5 N HCG [id number] 02:51:00* Test Item Value Reference Range Interpretation Comme nts HCG SERUM (test code = HCG) 96588.3 0 - 6 NOT PREGNA NT > 6 SUGGESTIVE OF EARLY RISES TWO FOLD EVERY 2 DAYS; SUGGEST RECONFIRMING AFTER 2 DAYS. 150,000-200,[address] TRIMESTER 10,000 - 50,000 2ND & 3RD TRIMESTERResults in emanuel-International Units/mL URINALYSIS [id number] 02:39:00* Test Item Value Reference Range Interpretation [...] MUCU) TRACE /LPF NONE SEEN CBC W/AUTO [id number] 02:21:00* Test Item Value Reference Range Interpretation [...] MANUAL DIFF REQUIRED (test c ode = IFF) NO - US PREG 1ST [id number] 02:19:00 [facility] : 2000 Sex: F Name: LUIS EDMONDS [facility] : 2000 Age/S: 19 / F [address] [place] [address] Unit #: [id number] Loc: [place] [address] Phys: Nirav Nolan MD Acct: [id number] Dis Date: Status: REG ER PHONE #: [phone] Exam Date: 10/05/2020209 FAX #: [phone] Reason: VB EXAMS: CPT CODE: [id number] US PREG TRIMTR 26896 STUDY: - DUP AB/PEL/SC/LTD, - US PREG TRIMTR 10/05/2020 1:17 AM Ordering Physician: Nirav Nolan MD Patient Name: LUIS EDMONDS MR: [id number] : 2000; Age: 19 years y/o Female [...] PAGE 1Signed Report (CONTINUED) Name: LUIS EDMONDS [facility] : 2000 Age/S: 19 / F [address] [place] [address] Blvd Unit #: [id number] Loc: [facility] [place] [address] Phys: Nirav Nolan MD Acct: [id number] Dis Date: Status: REG ER PHONE #: [phone] Exam Date: 10/05/2020209 FAX #: [phone] Reason: VB EXAMS: CPT CODE: [id number] US PREG 1ST TRIMTR 21008 <Continued> SL: TPAINTER-H at 0219 Reported and signed by: Abdias Avila M.D. CC: Elina Rome MD; Nirav Nolan MD Technologist: Maryam Anderson RDMS(BR)(AB) Trnscb Date/Time: 10/05/2020 (218) [email or web address] Orig Print D/T: S: 10/05/2020 (0222) Probe: PAGE 2 Signed Report- DUP AB/PEL/SC/[id number] 02:19:00 [facility] MADELINE COFFMANName: LUIS EDMONDS : 2000 Sex: F Name: LUIS EDMONDS [facility] Madeline Coffman : 2000 Age/S: 19 / F [address] [place] [address] Unit #: [id number] Loc: [place] [address] Phys: Nirav Nolan MD Acct: [id number] Dis Date: Status: REG ER PHONE #: [phone] Exam Date: 10/05/2020209 FAX #: [phone] Reason: see US PREG 1st TRIMTR EXAMS: CPT CODE: [id number] DUP AB/PEL/SC/LTD 29180 STUDY: - DUP AB/PEL/SC/LTD, - US PREG 1ST TRIMTR 10/05/2020 1:17 AM Ordering Physician: Nirav Nolan MD Patient Name: LUIS EDMONDS MR: [id number] : 2000; Age: 19 years y/o Female [...] 1 Signed Report (CONTINUED) Name: LUIS EDMONDS [facility] Madeline Coffman : 2000Age/S: [address] [place] [address] Unit #: [id number] Loc: [place] [address] Phys: Nirav Nolan MD Acct: [id number] Dis Date: Status: REG ER PHONE #: [phone] Exam Date: 10/05/20200FAX #: [phone] Reason: see US PREG 1st TRIMTR EXAMS: CPT CODE: [id number] DUP AB/PEL/SC/LTD 65279 <Continued> SL: TPAINTER-H at 218 Reported and signed by: Abdias Avila M.D. CC: Elina Rome MD; Nirav Nolan MD Technologist: Maryam Anderson RDMS(BR)(AB) Trnscb Date/Time: 10/05/2020 (218) [email or web address] Orig Print D/T: S: 10/05/2020 (221) Probe: PAGE 2 Signed Report- DUP AB/PEL/SC/[id number] 22:07:00 [facility] MAEDLINE COFFMANName: LUIS EDMONDS : 2000 Sex: F Name: LUIS EDMONDS [facility] : 2000 Age/S: 19 / F [address] [place] [address] Bl Unit #: [id number] Loc: [place] [address] Phys: Cathy Bruce Acct: [id number] Dis Date: Status: REG ER PHONE #: [phone] Exam Date: 08/22/20202199 FAX #: [phone] Reason: see US PREG 1st TRIMTR EXAMS: CPT CODE: [id number] DUP AB/PEL/SC/LTD 31008 PROCEDURE: FIRST TRIMESTER ULTRASOUND INDICATION: 6 weeks [...] PAGE 1 Signed Report- US PREG 1ST [id number] 22:07:00[facility] ED[facility] : 2000 Sex: F Name: LUIS EDMONDS [facility] [place] : 2000 Age/S: 19 / F [address] [place] [address] Blvd Unit #: [id number] Loc: [place] [address] Phys: Cathy Bruce Acct: [id number] Dis Date: Status: REG ER PHONE #: [phone] Exam Date: 08/22/20202199 FAX #: [phone] Reason: 6w , cramping EXAMS: CPT CODE: [id number] PREG 1ST TRIMTR 49859 PROCEDURE: FIRST TRIMESTER ULTRASOUND INDICATION: 6 weeks [...] Maryam Anderson RDMS(BR)(AB) Trnscb Date/Time: 08/22/2020 (2206) [email or web address] Orig Print D/T: S: 08/22/2020 (2209) Probe: PAGE 1 Signed ReportURINALYSIS [id number] 21:50:00* Test Item Value Reference Range Interpretation [...] MUCU) TRACE /LPF NONE SEEN BASIC METABOLIC [id number] 21:48:00* Test Item Value Reference Range Interpretation [...] patient ? YHOW MANY WEEKS? 6 WEEKSHCG [id number] 21:48:00* Test Item Value Reference Range Interpretation Comme nts HCG SERUM (test code = HCG) 94485.6 0 - 6 NOT PREGNA NT > 6 SUGGESTIVE OF EARLY RISES TWO FOLD EVERY 2 DAYS; SUGGEST RECONFIRMING AFTER 2 DAYS. 150,000-200,000 [address] TRIMESTER 10,000 - 50,000 2ND & 3RD TRIMESTERResults in emanuel-International Units/mL Is patient ? YHOW MANY WEEKS? 6 WEEKSUR HCG [id number] 21:47:00* Test Item Value Reference Range Interpretation Comme nts UR HCG QUAL (test code = HCGQLU) POSITIVE NEGATIVE CBC W/AUTO [id number] 21:33:00* Test Item Value Reference Range Interpretation [...] c ode = MDIFF) NO CBC W/AUTO [id number] 21:31:00* Test Item Value Reference Range Interpretation [...] c ode = MDIFF) Novel Coronavirus 2019 [id number] 14:50:00* Test Item Value Reference Range Interpretation Comme nts Novel Coronavirus 2019 nCoV (test code = COVID19) Negative Negative Performed by: [facility] [address], [address] [place], [place] [address] CLIA#: [id number] Does patient have the clinical criteria consistent with COVID-19? YIs the patient going to be discharged home? Y- CT NECK [id number] 02:35:00 Name: LUIS EDMONDS [facility] : 2000 Age/S: 19 / F [address] [place] [address] Blvd Unit #:[id number] Loc: [place] [address] Phys: Amilcar Pablo TANK SETTER Acct: [id number] Dis Date: Status: REG ER PHONE #: [phone] Exam Date: 02/16/2020 0134 FAX #: [phone] Reason: R lymphadenopathy, throat pain, fever EXAMS: CPT CODE: [id number] CT NECK W/CONTRAST [id number] EXAM: CT, CT NECK W/CONTRAST: 02/16/2020, 0132 [...] 1 Signed Report (CONTINUED) Name: LUIS EDMONDS [facility] : 2000 Age/S: 19 / F [address] [place] [address] Unit #: [id number] Loc:[place] [address] Phys: Amilcar Pablo NP Acct: [id number] Dis Date: Status: REG ER PHONE #: [phone] Exam Date: 02/16/2020 0134 FAX #: [phone] Reason: R lymphadenopathy, throat pain, feverEXAMS: CPT CODE: [id number] CT NECK W/CONTRAST 16441 <Continued> unremarkable. OSSEOUS STRUCTURES: There are no [...] infectious/inflammatory process, follow-up to resolution recommended. SL: BROD-H at 0235 Reported and signed by: Jeromy Wolfe M.D. CC: Elina Rome MD; Amilcar Pablo NP Technologist:Josué Granado, RT(R)(CT); Natasha CTDI: DLP: Trnscb Date/Time: 02/16/2020 (023) [email or web address] Orig Print D/T: S: 02/16/2020 (4843) PAGE 2 Signed ReportCOMPREHENSIVE METABOLIC [id number] 00:12:00* Test Item Value Reference Range Interpretation [...] = ALKP) 70 IUnit/L 60-350 N MONO [id number] 00:09:00* Test Item Value Reference Range Interpretation Comme nts MONO SCREEN (test code = MONO) NEGATIVE NEGATIVE URINALYSIS [id number] 00:02:00* Test Item Value Reference Range Interpretation [...] MUCU) 1+ /LPF NONE SEEN COMPREHENSIVE METABOLIC [id number] 00:02:00* Test Item Value Reference Range Interpretation [...] code = ALKP) IUnit/L 60-350 CBC W/AUTO [id number] 23:59:00* Test Item Value Reference Range Interpretation [...] (test code = MDIFF) NO UR HCG [id number] 23:56:00* Test Item Value Reference Range Interpretation Comme nts UR HCG QUAL (test code = HCGQLU) NEGATIVE NEGATIVE Notes Date/Time Note Provider Source 2022-11-16 15:41:00 1825-2005 [place] [address] PATIENT NAME: LUIS EDMONDS ADMIT DATE: 10/30/22 ACCOUNT NO: [id number] ROOM NO: G.[id number] AGE: 21 REPORT TYPE: 360 - QUERY RESPONSE DOCUMENT SEX: F ADMITTING PHYSICIAN:Luis Burciaga MD ATTENDING PHYSICIAN:Luis Burciaga MD Provider Query QUERY TEXT: Clarification Pathology 360MD Query related questions should be directed to: [facility] Coding Query Hotline Based on your [...] AM at 1541 PATIENT NAME: LUIS EDMONDS [facility] 2022-11-02 15:02:00 [facility] [place] [facility] ([facility]) OB Disch REPORT#:[id number] REPORT STATUS: Signed DATE:11/02/22 TIME: 1502 PATIENT: LUIS EDMONDS UNIT #: [id number] ROOM/BED: [place] [address] : 02 AGE: 21 SEX: F ATTEND: [...] Additional discharge routines: None at 1504 RPT #:[id number] END OF REPORT [facility] 2022-11-02 14:57:00 [facility] [place] [facility] ([facility]) OB Postpart Progr Note REPORT#:[id number] REPORT STATUS: Signed DATE:11/02/22 TIME: 1457 PATIENT: LUIS EDMONDS UNIT #: [id number] ROOM/BED: [place] [address] : 02 AGE: 21 SEX: F ATTEND: [...] routine care, discharge today at 1500 RPT #:[id number] END OF REPORT [facility] 2022-11-01 15:13:00 [facility] [place] [facility] ([facility]) OB Postpart Progr Note REPORT#:[id number] REPORT STATUS: Signed DATE:11/01/22 TIME: 1512 PATIENT: LUIS EDMONDS UNIT #: [id number] ROOM/BED: [place] [address] : 02 AGE: 21 SEX: F ATTEND: [...] % (Auto) (14.0 - 32.0 %) 25.7 Pacific % (Auto) (4.8 - 9.0 %) 9.7 H Eos % (Auto) (0.3 - 3.7 %) 0.8 Baso % (Auto) (0.0 - 2.0 %) 0.5 Neut # (Auto) (2.0 - 7.6 x10 3/uL) 7.76 H Lymph # (Auto) (1.0 - 3.8 x10 3/uL) 3.17 Pacific # (Auto) (0.1 - 0.8 x10 3/uL) [...] progress Plan: routine care at 1514 RPT #:[id number] END OF REPORT [facility] 2022-10-31 15:14:00 [facility] [place] [facility] ([facility]) DT History Physical REPORT#:[id number] REPORT STATUS: Signed DATE:10/31/22 TIME: 1514 PATIENT: LUIS EDMONDS UNIT #: [id number] ROOM/BED: [place] [address] : 02 AGE: 21 SEX: F ATTEND: [...] WBC (4.5 - 11.0 x10 3/uL) 10.1 10/300 RBC (3.54 - 5.02 x10 6/uL) 3.32 L 10/300 Hgb (11.0 - 15.0 g/dL) 8.6 L 10/300 Hct (33.0 - 45.0 %) 27.4 L 10/30 1830 MCV (81.0 - 99.0 fL) 82.5 10/30 1830 MCH (27.0 - 33.0 pg) 25.9 L 10/30 1829 MCHC (33.0 - 37.0 g/dL) 31.4 L 10/300 RDW (11.5 - 14.5 %) 16.1 H 10/300 Plt Count (150 - 400 x10 3/uL) 289 10/30 1830 MPV (7.0 - 9.0 fL) 11.1 H 10/30 1830 Neut % (Auto) (56.0 - 77.0 %) 62.4 10/30 1830 Lymph % (Auto) (14.0 - 32.0 %) 26.3 10/30 1830 Pacific % (Auto) (4.8 - 9.0 %) 9.6 H 10/30 1830 Eos % (Auto) (0.3 - 3.7 %) 0.6 10/30 1830 Baso % (Auto) (0.0 - 2.0 %) 0.3 10/30 1830 Neut # (Auto) (2.0 - 7.6 x10 3/uL) 6.27 10/30 1830 Lymph # (Auto) (1.0 - 3.8 x10 3/uL) 2.65 10/300 Pacific # (Auto) (0.1 - 0.8 x10 3/uL) 0.97 H 10/30 183 Eos # (Auto) (0.0 - 0.2 x10 3/uL) 0.06 10/30 1829 Baso # (Auto) (0.0 - 0.2 x10 3/uL) 0.03 04/14 183 Abs Immat Gran (auto) (0.00 - 0.03 [...] CAP 1638 Current Hospital Medications: Anti-Infective Agents Sig/Trish Start time Last Medication Dose Route Stop Time Status Admin Penicillin G 5 MILLION.UN ASDIR 10/30 1829 CKD 10/31 Potassium IV 11/06 182 1143 (PENICILLIN G POTASSIUM) Sodium Chloride 100 ML (SODIUM CHLORIDE 0.9% 100 ML) Penicillin G 50 ML Q4H 10/30 183 AC 10/31 Potassium/Sodium IV 11/13 182 0301 Chlor (Penicillin G 2.5MILL UNITS/NS 50ML) Antihistamine Drugs Sig/Trish Start time Last Medication Dose Route Stop Time Status Admin Diphenhydramine HCl 12.5 MG Q6H PRN PRN 10/31 0345 AC (BENADRYL) IV 11/30 034 Autonomic Drugs Sig/Trish Start time Last Medication Dose Route Stop Time Status Admin Ephedrine Sulfate 10 MG ONCE PRN 10/31 0345 AC (ePHEDrine sulfate) IV 11/30 034 Ephedrine Sulfate 25 MG ONCE PRN 10/31 034 AC (ePHEDrine sulfate) IM 11/30 034 Ephedrine Sulfate 10 MG ASDIR PRN 10/30 183 AC (ePHEDrine sulfate) IV 11/29 182 Ephedrine Sulfate 25 MG ASDIR PRN 10/30 1830 AC (ePHEDrine sulfate) IM 11/29 182 Cardiovascular Drugs Sig/Trish Start time Last Medication Dose Route Stop Time Status Admin Hydralazine HCl 10 MG ASDIR PRN 10/30 183 AC (APRESOLINE) IV 11/29 182 Labetalol HCl 20 MG ASDIR PRN 10/30 183 AC (LABETALOL HCL) IV 11/29 182 Labetalol HCl 40 MG ASDIR PRN 10/30 183 AC (LABETALOL HCL) IV 11/29 182 Labetalol HCl 80 MG ASDIR PRN 10/30 1830 AC (LABETALOL HCL) IV 11/29 182 Lidocaine HCl 30 ML ASDIR PRN 10/30 183 AC (LIDOCAINE HCL/PF) LOCAL 11/29 182 Central Nervous System Agents Sig/Trish Start time Last Medication Dose Route Stop Time Status Admin Naloxone HCl 0.1 MG ASDIR PRN 10/31 344 CKD (NARCAN) IV 12/01 343 Ropivacaine/Fentanyl/ 0 ASDIR 10/31 344 AC 10/31 NS EPIDURAL 12/01 343 1025 (fentaNYL/ROP 200 MCG/0.125% 100ML CASSETTE) Butorphanol Tartrate 1 MG Q3H PRN PRN 10/30 1829 AC 10/30 (STADOL) IV 11/29 1829 2121 Ropivacaine/Fentanyl/ 0 ASDIR PRN 10/30 1830 AC NS EPIDURAL 11/29 182 (fentaNYL/ROP 200 MCG/0.125% 100ML CASSETTE) Electrolytic, Caloric, And Gregor Sig/Trish Start time Last Medication Dose Route Stop Time Status Admin Citric Acid/Sodium 30 ML ONCE PRN 10/30 1830 AC Citrate PO 11/29 182 (BICITRA ADULT DOSE) Lactated Ringer's 1,000 ML BOLUS PRN 10/30 1830 AC (LACTATED RINGERS) IV 11/29 182 Lactated Ringer's 1,000 ML .Q8H 10/30 1830 AC 10/30 (LACTATED RINGERS) IV 11/29 1829 2314 Gastrointestinal Drugs Sig/Trish Start time Last Medication Dose Route Stop [...] IV 11/29 1829 1425 Local Anesthetics (Parenteral) Sig/Trish Start time Last Medication Dose Route Stop [...] AC (BUPIVACAINE HCL) EPIDURAL 11/29 182 Oxytocics Sig/Trish Start time Last Medication Dose Route Stop Time Status Admin Oxytocin/Sodium 250 ML ASDIR 10/31 0730 AC 10/31 Chloride IV 11/30 0729 0751 (Oxytocin 15 units/ NS 250 mL) Carboprost 250 MCG ONCE PRN 10/30 1830 AC Tromethamine IM 11/29 182 (HEMABATE) Methylergonovine 0.2 MG ONCE PRN 10/30 1830 AC Maleate IM 11/29 182 (METHERGINE) Oxytocin/Sodium 333.33 ML BOLUS PRN 10/30 1830 AC Chloride IV 11/29 182 (Oxytocin 15 units/ NS 250 mL) Pharmaceutical Aids Sig/Trish Start time Last Medication Dose Route Stop Time Status Admin Sterile Water 10 ML ASDIR PRN 10/31 0345 AC (WATER FOR INJECTION) EPIDURAL 11/30 0344 Vital Signs: Date Time Temp Pulse Resp B/P B/P Pulse O2 O2 Flow FiO2 Mean Ox Delivery Rate 10/31 1457 90 100 10/31 1452 103 100 10/31 1449 75.0 10/31 1449 91 110/62 10/31 1447 80 100 10/31 1442 69 100 / 1437 86 100 10/31 1432 110 100 10/31 1427 111 100 10/31 1422 95 100 10/31 1420 82.0 10/31 1420 80 117/58 04 1417 76 100 10/31 1412 70 100 10/31 1407 60 99 / 1402 73 100 10/31 1357 67 99 [...] 10/31 1203 36.8 10/31 1202 82 97 04/ 1157 68 99 04/15 1152 62 99 04/15 1148 72.0 04/15 1148 73 97/54 04/ 1147 70 98 /15 1142 74 99 10/31 1137 75 98 10/31 1132 68 98 / 1129 72.0 10/31 1129 65 99/53 04/ 1127 68 97 04/ 1122 62 98 04/15 1118 65.0 04/15 1118 68 89/47 04/15 1117 71 97 04 1112 68 98 10/31 1107 70 98 10/31 1102 66 98 10/31 1057 79 100 04/15 1052 79 100 04/15 1051 16 10/31 1048 79.0 15 1048 68 111/56 04 1047 71 100 04/ 1046 16 10/31 1042 82.0 10/31 1042 91 115/59 100 04/ 1041 16 15 1037 82.0 04/15 1037 87 112/57 100 04/15 1036 16 10/31 1032 81.0 10/31 1032 92 120/56 100 04/ 1031 17 10/31 1028 78.0 10/31 1028 82 119/61 10/31 1027 84 100 10/31 1022 74 100 / 1021 17 10/31 1021 81.0 10/31 1021 68 117/59 10/31 1017 76 100 10/31 1012 75 100 10/31 1007 96 100 10/31 0955 84 100 10/31 0715 36.7 17 10/31 0646 37.0 89 91 15 0641 73 98 15 0305 74.0 15 0305 83 100/58 04/15 0201 37.3 04/15 0040 84 100 /15 0035 93 100 /15 0031 95 91 /15 0030 102 100 /15 0025 84 100 /15 0020 90 100 /15 0015 91 100 15 0010 101 99 15 0005 93 100 15 0000 89 100 10/30 2357 84.0 10/30 2357 93 117/66 10/30 [...] 1725 139 117/55 98 at 1514 RPT #:[id number] END OF REPORT [facility] 2022-10-31 15:12:00 [facility] ([facility]) OB Delivery Note REPORT#:[id number] REPORT STATUS: Signed DATE:10/31/22 TIME: 1512 PATIENT: LUIS EDMONDS UNIT #: [id number] ROOM/BED: [place] [address] : 02 AGE: 21 SEX: F ATTEND: [...] A: 1 minute infant A: 5 minutes infant A: 10 minutes A: Cord pH obtained A: Vacuum time infant A: Vacuum # pulls A: Vacuum # popoffs A: QBL at delivery: __ Provider comments on imported nursing data: [] Pre-delivery GBS status: GBS status: unknown Prophylaxis administered: penicillin Widen evaluation at delivery: NRP certified personnel Admission [...] infant stable in room at 1514 RPT #:[id number] END OF REPORT [facility] 2022-09-27 16:38:00 [facility] [place] [facility] EMILY) OB Disch Undelivered REPORT#:[id number] REPORT STATUS: Signed DATE:09/27/22 TIME: 1638 PATIENT: BI EDMONDS UNIT #: [id number] ROOM/BED: [place] [address] : 02 AGE: 21 SEX: F ATTEND: [...] 18 09/27 1245 Pulse Ox 93 09/26 223 Vital Signs Date Temp Pulse Resp B/P [...] 0319 73.0 09/27 0319 88 99/57 09/26 2229 82 93 09/26 2228 79.0 09/26 2228 84 110/58 PATIENT WEIGHT: Weight (lb): Weight (oz): Weight (kg): Free Text Obj Notes Free Text Obj Notes: Gen: AAOx3 Lungs: normal respiratory effort Neuro: Exam: alert, oriented x3 Abdomen: gravid, soft Uterine activity: Monitor: toco Frequency (description): None Frequency (minutes): MINING DETAIL DRAFTSPERSON: Normal exteral genitalia Cervical/ exam: Dilatation (cm): [...] understanding will have her follow-up with her DOOR MANAGER. Assessment: no evidence labor Impression: reactive NST [...] follow up timeframe: In 1-2 weeks at [facility] RPT #:[id number] END OF REPORT [facility] 2022-09-27 10:39:00 [facility] [place] [facility] ([facility]) OB Antepartum Prog Note REPORT#:[id number] REPORT STATUS: Signed DATE:09/27/22 TIME: 1039 PATIENT: BI EDMONDS UNIT #: [id number] ROOM/BED: [place] [address] : 02 AGE: 21 SEX: F ATTEND: [...] Monitor: toco Frequency (description): none Frequency (minutes): MINING DETAIL DRAFTSPERSON: Normal exteral genitalia Cervical/ exam: Dilatation (cm): 1 Effacement (%): 50 station: -3 Presentation: Membrane status: FHR evaluation: FHR category: category I Diagnosis, Assessment Plan Diagnosis, Assessment Plan Free text A P: IUP 32 07/25 FFN + Patient found stable, patient evaluated by MFM, he recommends discharge home if no cervical change. Will check her this afternoon. at [facility] RPT #:[id number] END OF REPORT [facility] 2022-09-27 09:19:00 [facility]) MFM Consultation Note REPORT#:[id number] REPORT STATUS: Signed DATE:09/27/22 TIME: 918 PATIENT: BI EDMONDS UNIT #: [id number] ROOM/BED: [place] [address] : 02 AGE: 21 SEX: F ATTEND: [...] globulin this preg: Monitor mode - UA: [place] units: Feeding preference: Delivery data Delivery date infant A: Delivery time infant A: Birthweight (gm) infant A: Weight (lb) infant A: Weight (oz) infant A: Gender A: 1 minute infant A: 5 minutes infant [...] Mean 75.0 09/27 0708 B/P 105/55 09/27 07 Pulse 91 09/27 07 Pulse Ox 93 09/26 2230 Temp 36.7 [...] pH (5.0 - 7.0) 5.0 Ur Specific [place] (1.005 - 1.030) 1.033 H Urine Protein [...] you closely Floor time 50min at [address] [facility] #:[id number] END OF REPORT [facility] 2022-09-27 05:02:00 [facility] [place] [facility] ([facility]) OB Admission / H P REPORT#:[id number] REPORT STATUS: Signed DATE:09/27/22 TIME: 0502 PATIENT: BI EDMONDS UNIT #: [id number] ROOM/BED: 005-1 : 02 AGE: 21 SEX: F ATTEND: [...] pH (5.0 - 7.0) 5.0 Ur Specific [place] (1.005 - 1.030) 1.033 H Urine Protein [...] Wilson M.D. ULTRASOUND - US PREG AFTER 09/26 Report Impression - Status: SIGNED Entered: 09/26/20222116 IMPRESSION: 1. Single viable intrauterine gestation in cephalic presentation. 2. Normal growth concordant with dates. 3. Normal biophysical profile. Impression By: [email or web address] Pati Wolfe M.D. Diagnosis, Assessment Plan Diagnosis, Assessment Plan Comments: Impression: 1. IUP at 32 2/7wks 2. +FFN 3. Adv cervical dilation Plan: 1. Phone consult called to [facility], Dr Judge. No Celestone is needed ( last course of steroid was given 3+ wk ago on 09-08-22 and 09-09-22 ). No MgSO4 is needed at 32 1/7wks with no contractions. 2. Admit for 23h observation. 3. Will recheck cx in AM. If no contraction or cervical change, will DC home. at 0512 RPT #:[id number] END OF REPORT [facility] 2022-09-26 19:34:00 [facility]) OLGA Evaluation Note REPORT#:[id number] REPORT STATUS: Signed DATE:09/26/22 TIME: 1933 PATIENT: BI EDMONDS UNIT #: [id number] ROOM/BED: [place] [address] : 02 AGE: 21 SEX: F ATTEND: [...] 1859 Temp 98.1 09/26 1859 Pulse 123 09/26 1859 Resp 18 09/26 1859 B/P Mean 82.0 09/26 1858 B/P 112/66 09/26 1858 Vital Signs Date Temp Pulse Resp [...] for 23hr obs. Phone consult called to [facility], Dr Judeg. No Celestone is needed ( last course of steroid was given 3+ wk ago on 09-08-22 and 09-09-22 ). No MgSO4 is needed at 32 1/7wks with no contractions. POC dw patient, nurse at 0502 RPT #:[id number] END OF REPORT [facility] 2022-09-26 19:30:00 [facility] [place] [facility] ([facility] OB Medical Screening Exam REPORT#:[id number] REPORT STATUS: Signed DATE:09/26/22 TIME: 1929 PATIENT: BI EDMONDS UNIT #: [id number] ROOM/BED: [facility] : 02 AGE: 21 SEX: F ATTEND: Luis Burciaga MD ADM DT: AUTHOR: Zoila Gomez DO * ALL edits or amendments must be made on the electronic/computer document * Medical Screening Exam Provider Attestation Comments: Patient was seen at 1920 for contraction, back pain, and decreased FM at 32 1/ 7wks at 1931 RPT #:[id number] END OF REPORT [facility] 2022-09-14 08:43:00 [facility] [place] [facility] ([facility]) OB Disch Undelivered REPORT#:[id number] REPORT STATUS: Signed DATE:09/14/22 TIME: 08 PATIENT: LUIS EDMONDS UNIT #: [id number] ROOM/BED: [place] [address] : 02 AGE: 21 SEX: F ATTEND: [...] Additional Discharge Routines: None at 0845 RPT #:[id number] END OF REPORT [facility] 2022-09-14 08:41:00 [facility] [place] [facility] ([facility]) OB Antepartum Prog Note REPORT#:[id number] REPORT STATUS: Signed DATE:09/14/22 TIME: 08 PATIENT: LUIS EDMONDS UNIT #: [id number] ROOM/BED: [place] [address] : 02 AGE: 21 SEX: F ATTEND: [...] B/P 113/57 09/13 2350 Pulse 95 09/13 235 Pulse Ox 100 09/13 2020 Temp 36.8 [...] labor Plan: discharge home at 0843 RPT #:[id number] END OF REPORT [facility] 2022-09-13 17:53:00 [facility] [place] [facility] ([facility]) OB Antepartum Prog Note REPORT#:[id number] REPORT STATUS: Signed DATE:09/13/22 TIME: 1753 PATIENT: LUIS EDMONDS UNIT #: [id number] ROOM/BED: [place] [address] : 02 AGE: 21 SEX: F ATTEND: [...] infant outside hospital decreases at 1802 RPT #:[id number] END OF REPORT [facility] 2022-09-13 09:03:00 [facility] [place] [facility] ([facility] Progress Note REPORT#:[id number] REPORT STATUS: Signed DATE:09/13/22 TIME: 0903 PATIENT: LUIS EDMONDS UNIT #: [id number] ROOM/BED: [place] [address] : 02 AGE: 21 SEX: F ATTEND: Luis Burciaga MD ADM AUTHOR: Kahlil Moore MD * ALL edits or amendments must be made on the electronic/computer document * Objective General VS/I O: Last Documented: Result Date Time B/P Mean 71.0 09/13 0759 B/P 100/53 09/13 0759 Pulse 74 09/13 0759 Pulse Ox 98 09/13 0234 Temp 36.8 09/12 233 Resp 18 09/12 2334 PATIENT WEIGHT: Weight (lb): 172 Weight (oz): [...] closely Floor time 35min at 0911 RPT #:[id number] END OF REPORT [facility] 2022-09-12 08:28:00 [facility] [place] [facility] ([facility]) MFM Progress Note REPORT#:[id number] REPORT STATUS: Signed DATE:09/12/22 TIME: 827 PATIENT: LUIS EDMONDS UNIT #: [id number] ROOM/BED: [place] [address] : 02 AGE: 21 SEX: F ATTEND: [...] closely Floor time 35min at 0834 RPT #:[id number] END OF REPORT [facility] 2022-09-12 01:41:00 [facility] ([facility]) OB Antepartum Prog Note REPORT#:[id number] REPORT STATUS: Signed DATE:09/12/22 TIME: 014 PATIENT: LUIS EDMONDS UNIT #: [id number] ROOM/BED: [place] [address] : 02 AGE: 21 SEX: F ATTEND: [...] Plan: continue current managmnt at 0142 RPT #:[id number] END OF REPORT [facility] 2022-09-11 22:15:00 [facility] ([facility]) OB Antepartum Prog Note REPORT#:[id number] REPORT STATUS: Signed DATE:09/11/22 TIME: 2214 PATIENT: LUIS EDMONDS UNIT #: [id number] ROOM/BED: [place] [address] : 02 AGE: 21 SEX: F ATTEND: [...] 1907 Temp 36.7 09/11 1907 Pulse 93 09/11 1908 Resp 16 09/11 [...] Plan: continue current managmnt at 2218 RPT #:[id number] END OF REPORT [facility] 2022-09-11 07:18:00 [facility] [place] [facility] ([facility]) [facility] Progress Note REPORT#:[id number] REPORT STATUS: Signed DATE:09/11/22 TIME: 07 PATIENT: LUIS EDMONDS UNIT #: [id number] ROOM/BED: [place] [address] : 02 AGE: 21 SEX: F ATTEND: [...] 16 09/10 603 PATIENT WEIGHT: Weight (lb): 172 Weight (oz): [...] pH (5.0 - 7.0) 6.0 Ur Specific [place] (1.005 - 1.030) 1.019 Urine Protein (NEGATIVE) [...] you closely Floor time 35min at [address] [facility] #:[id number] END OF REPORT [facility] 2022-09-10 13:12:00 [facility] ([facility]) MFM Progress Note REPORT#:[id number] REPORT STATUS: Signed DATE:09/10/22 TIME: 1312 PATIENT: LUIS EDMONDS UNIT #: [id number] ROOM/BED: [place] [address] : 02 AGE: 21 SEX: F ATTEND: [...] closely Floor time 35min at 1325 RPT #:[id number] END OF REPORT [facility] 2022-09-10 08:19:00 [facility] [place] [facility] ([facility]) OB Antepartum Prog Note REPORT#:[id number] REPORT STATUS: Signed DATE:09/10/22 TIME: 08 PATIENT: LUIS EDMONDS UNIT #: [id number] ROOM/BED: [place] [address] : 02 AGE: 21 SEX: F ATTEND: [...] Plan: continue current managmnt at 0820 RPT #:[id number] END OF REPORT [facility] 2022-09-09 12:03:00 [facility] ([facility]) OB Admission / H P REPORT#:[id number] REPORT STATUS: Signed DATE:09/09/22 TIME: 120 PATIENT: LUIS EDMONDS UNIT #: [id number] ROOM/BED: [place] [address] : 02 AGE: 21 SEX: F ATTEND: Luis Burciaga MD ADM AUTHOR: Juany Carrillo MD * ALL edits or amendments must be made on the electronic/computer document * OB History Notes: [facility] ([facility]) OLGA Evaluation Note REPORT#:[id number] REPORT STATUS: Signed DATE:09/07/22 TIME: 2242 PATIENT: LUIS EDMONDS UNIT #: [id number] ROOM/BED: [place] [address] : 02 AGE: 21 SEX: F ATTEND: [...] Pulse Ox 99 09/07 2141 Pulse 86 / 2141 B/P Mean 84.0 09/07 2131 B/P 120/60 / 2131 Vital Signs Date Temp Pulse Resp B/P B/P Mean Pulse Ox FiO2 / 86-96 120/60 84.0 98-99 PATIENT WEIGHT: Weight [...] pH (5.0 - 7.0) 7.0 Ur Specific [place] (1.005 - 1.030) 1.006 Urine Protein (NEGATIVE) [...] spent on counseling/coordination of care: yes at 0572 RPT #:[id number] END OF REPORT Past History Allergies: Uncoded Allergies: MARCUS ACID- THROAT SWELLING (Severe, 08/03/22) at 1207 RPT #:[id number] END OF REPORT [facility] 2022-09-09 09:03:00 [facility] [place] [facility] ([facility]) OB Antepartum Prog Note REPORT#:[id number] REPORT STATUS: Signed DATE:09/09/22 TIME: 0903 PATIENT: LUIS EDMONDS UNIT #: [id number] ROOM/BED: [place] [address] : 02 AGE: 21 SEX: F ATTEND: [...] Plan: continue current managmnt at 0906 RPT #:[id number] END OF REPORT [facility] 2022-09-09 08:58:00 [facility] [place] [facility] ([facility]) OB Antepartum Prog Note REPORT#:[id number] REPORT STATUS: Signed DATE:09/09/22 TIME: 0858 PATIENT: LUIS EDMONDS UNIT #: [id number] ROOM/BED: [place] [address] : 02 AGE: 21 SEX: F ATTEND: [...] Plan: continue current managmnt at 0859 RPT #:[id number] END OF REPORT [facility] 2022-09-09 07:45:00 [facility] ([facility]) MFM Progress Note REPORT#:[id number] REPORT STATUS: Signed DATE:09/09/22 TIME: 0745 PATIENT: LUIS EDMONDS UNIT #: [id number] ROOM/BED: [place] [address] : 02 AGE: 21 SEX: F ATTEND: [...] closely Floor time 35min at 0748 RPT #:[id number] END OF REPORT [facility] 2022-09-08 17:21:00 [facility] ([facility]) MFM Consultation Note REPORT#:[id number] REPORT STATUS: Signed DATE:09/08/22 TIME: 1721 PATIENT: LUIS EDMONDS UNIT #: [id number] ROOM/BED: [place] [address] : 02 AGE: 21 SEX: F ATTEND: [...] % (Auto) (14.0 - 32.0 %) 31.0 Pacific % (Auto) (4.8 - 9.0 %) 8.1 Eos % (Auto) (0.3 - 3.7 %) 0.8 Baso % (Auto) (0.0 - 2.0 %) 0.3 Neut # (Auto) (2.0 - 7.6 x10 3/uL) 6.16 Lymph # (Auto) (1.0 - 3.8 x10 3/uL) 3.22 Pacific # (Auto) (0.1 - 0.8 x10 3/uL) [...] pH (5.0 - 7.0) 7.0 Ur Specific [place] (1.005 - 1.030) 1.006 Urine Protein (NEGATIVE) [...] reviewed Sono today: vtx, ant. placenta, EFW 1uul5dy (1574g, 68%ile), nl range ISMA 15.4, nl [...] with you closely Floor time 80min at 4111 RPT #:[id number] END OF REPORT [facility] 2022-09-07 22:44:00 [facility] ([facility] OB Medical Screening Exam REPORT#:[id number] REPORT STATUS: Signed DATE:09/07/22 TIME: 2243 PATIENT: LUIS EDMONDS UNIT #: [id number] ROOM/BED: [place] [address] : 02 AGE: 21 SEX: F ATTEND: Luis Burciaga MD ADM AUTHOR: Juany Carrillo MD * ALL edits or amendments must be made on the electronic/computer document * Medical Screening Exam Provider Attestation Attestation: The QMP MSE reviewed. Notified at 4061 Physician at bedside 0432 Comments: 21 y/o female at 29-3/7 weeks who presents after several gushes of clear fluid from the vagina. Patient is certain that she did not leak urine. at 0557 RPT #:[id number] END OF REPORT [facility] 2022-09-07 22:43:00 [facility] ([facility]) [place] Evaluation Note REPORT#:[id number] REPORT STATUS: Signed DATE:09/07/22 TIME: 2242 PATIENT: LUIS EDMONDS UNIT #: [id number] ROOM/BED: [place] [address] : 02 AGE: 21 SEX: F ATTEND: [...] tenderness: negative Results Findings/Data: Laboratory Tests: 09/07 09/07 2148 2125 Other Body Source Membrane Rupture (NEGATIVE) POSITIVE H Urines Urine Color (YEL/STRAW) STRAW Urine Appearance (CLEAR) CLEAR Urine pH (5.0 - 7.0) 7.0 Ur Specific [place] (1.005 - 1.030) 1.006 Urine Protein (NEGATIVE) [...] counseling/coordination of care: yes at 0549 RPT #:[id number] END OF REPORT [facility] 2022-08-06 11:00:00 [facility] ([facility]) OB Medical Screening Exam REPORT#:[id number] REPORT STATUS: Signed DATE:08/06/22 TIME: 1100 PATIENT: LUIS EDMONDS UNIT #: [id number] ROOM/BED: : 02 AGE: 21 SEX: F ATTEND: Effie Solitario MD ADM AUTHOR: Effie Solitario MD * ALL edits or amendments must be made on the electronic/computer document * Medical Screening Exam Provider Attestation Attestation: The QMP MSE reviewed. DATE 08/03/2019 Notified at 1523 Provider at bedside at 1523 Comments: 21 Y/O IUP 24 2/7 presents due to cramping. at 1101 RPT #:[id number] END OF REPORT [facility] 2022-08-06 11:00:00 [facility] ([facility]) [place] Evaluation Note REPORT#:[id number] REPORT STATUS: Signed DATE:08/06/22 TIME: 1100 PATIENT: LUIS EDMONDS UNIT #: [id number] ROOM/BED: : 02 AGE: 21 SEX: F ATTEND: Effie Solitario MD ADM AUTHOR: Effie Solitario MD * ALL edits or amendments must be made on the electronic/computer document * OGLA History Chief complaint: cramping HPI: 21 Y/O [...] Monitor: toco Frequency (description): None Frequency (minutes): MINING DETAIL DRAFTSPERSON: Normal exteral genitalia Cervical/ exam: Speculum exam: [...] understanding will have her follow-up with her DOOR MANAGER. Assessment: no evidence labor Impression: reactive NST Plan: discharge home Plan discussed with: patient, nurse at 1106 RPT #:[id number] END OF REPORT [facility] 2022-03-06 16:08:00 [facility] ([facility]) emergency provider report report#:[id number] report status: signed date:03/06/22 time: 1608 patient: luis edmonds unit #: [id number] room/bed: age: 21 sex: f pcp phys: [...] ordered medication(s) ordered: central nervous system agents sig/trish start time last medication dose route stop [...] b/p 115/75 / 1506 b/p mean 88 08/ 1506 o2 delivery room air 03/06 1506 temp 36.6 03/06 1506 pulse 82 08 1506 resp 18 03/06 1506 all vital [...] asdir dme - crutches (crutch set) [facility] of choice patient instructions ed ankle sprain (adult), ed foot sprain, ed rice referrals provider referral: cheli gamino md follow-up: as needed notes: orthopedic surgeon address: [address] [place] [id number] provider group: primary care follow-up: 1 week [...] chavez md on 03/06/22 at 1747 rpt #:[id number] end of report [facility] 2021-11-11 00:46:00 [facility] ([facility]) EMERGENCY PROVIDER REPORT REPORT#:[id number] REPORT STATUS: Signed DATE:11/11/21 TIME: 45 PATIENT: LUIS EDMONDS UNIT #: [id number] ROOM/BED: AGE: 20 SEX: F PCP PHYS: [...] B/P 112/59 11/11 001 B/P Mean 76 11/118 O2 Delivery Room air 11/11 17 Temp 36.4 11/11 17 Pulse 81 11/11 0018 Resp 18 11/11 17 Last Documented: Result Date Time Pulse Ox 100 11/113 B/P 116/62 11/11 52 B/P Mean 80 [...] pH (5.0 - 7.0) 7 Ur Specific [place] (1.005 - 1.030) 1.010 POC Urine Protein [...] UTI. HCG was negative. Time of Re-Eval 106 Re-Eval Status Improved Patient Discharge Departure Vital Signs/Condition Vital Signs First Documented: Result Date Time Pulse Ox 98 11/11 17 B/P 112/59 11/118 B/P Mean 76 11/118 O2 Delivery Room air 11/11 17 Temp 36.4 11/11 17 Pulse 81 11/11 0018 Resp 18 11/11 17 Last Documented: Result Date Time Pulse Ox 100 11/11 52 B/P 116/62 11/11 52 B/P Mean 80 11/113 O2 Delivery Room air 11/11 52 Temp 36.4 11/11 52 Pulse 76 11/11 52 Resp 11/11 All vital signs available at the time [...] a call to 911. at 0107 RPT #:[id number] END OF REPORT [facility] 2021-08-08 22:23:00 [facility] ([facility]) EMERGENCY PROVIDER REPORT REPORT#:[id number] REPORT STATUS: Signed DATE:08/08/21 TIME: 2222 PATIENT: LUIS EDMONDS UNIT #: [id number] ROOM/BED: AGE: 20 SEX: F PCP PHYS: [...] Ordered Medication(s) Ordered: Central Nervous System Agents Sig/Trish Start time Last Medication Dose Route Stop [...] or a call to 911. at [address] [place] [address] #:[phone] END OF REPORT [facility] 2021-03-28 09:04:00 [facility] ([facility]) OB Disch REPORT#:[id number] REPORT STATUS: Signed DATE:03/28/21 TIME: 903 PATIENT: LUIS EDMONDS UNIT #: [id number] ROOM/BED: [place] [address] : 02 AGE: 20 SEX: F ATTEND: [...] 03/26/21 Delivery time A: 1807 Birthweight (gm) A: 3200 Feeding preference: Gender A: Female 1 minute A: 8 5 minutes infant A: 9 10 minutes A: Provider comments on imported nursing data: [] Plan: routine care, discharge today Discharge Instructions Instructions: routine instr sheet given Diet: Resume Home Diet/Feeds Activity: Resume Normal Activity Additional discharge routines: None at 0905 RPT #:[id number] END OF REPORT [facility] 2021-03-28 09:03:00 [facility] ([facility]) OB Postpart Progr Note REPORT#:[id number] REPORT STATUS: Signed DATE:03/28/21 TIME: 902 PATIENT: LUIS EDMONDS UNIT #: [id number] ROOM/BED: [place] [address] : 02 AGE: 20 SEX: F ATTEND: [...] routine care, discharge today at 0904 RPT #:[id number] END OF REPORT [facility] 2021-03-27 09:21:00 [facility] ([facility]) OB Postpart Progr Note REPORT#:[id number] REPORT STATUS: Signed DATE:03/27/21 TIME: 920 PATIENT: LUIS EDMONDS UNIT #: [id number] ROOM/BED: [place] [address] : 02 AGE: 20 SEX: F ATTEND: [...] % (Auto) (14.0 - 32.0 %) 24.9 Pacific % (Auto) (4.8 - 9.0 %) 9.4 H Eos % (Auto) (0.3 - 3.7 %) 0.6 Baso % (Auto) (0.0 - 2.0 %) 0.2 Neut # (Auto) (2.0 - 7.6 x10 3/uL) 8.09 H Lymph # (Auto) (1.0 - 3.8 x10 3/uL) 3.13 Pacific # (Auto) (0.1 - 0.8 x10 3/uL) [...] progress Plan: routine care at 0922 RPT #:[id number] END OF REPORT [facility] 2021-03-26 18:49:00 [facility] ([facility]) OB Delivery Note REPORT#:[id number] REPORT STATUS: Signed DATE:03/26/21 TIME: 1848 PATIENT: LUIS EDMONDS UNIT #: [id number] ROOM/BED: [place] [address] : 02 AGE: 20 SEX: F ATTEND: [...] Hemorrhage. Delivery date A: 03/26/21 Delivery time infant A: 1807 Birthweight (gm) infant A: 3200 Weight (lb) A: Weight (oz) infant A: Gender infant A: Female 1 minute infant A: 5 [...] loss at delivery: 50 at 1852 RPT #:[id number] END OF REPORT [facility] 2021-03-26 08:25:00 [facility] ([facility]) DT History Physical REPORT#:[id number] REPORT STATUS: Signed DATE:03/26/21 TIME: 824 PATIENT: LUIS EDMONDS UNIT #: [id number] ROOM/BED: 341-1 : 02 AGE: 20 SEX: F ATTEND: Luis Burciaga MD ADM AUTHOR: Luis Burciaga MD * ALL edits or amendments must be made on the electronic/computer document * History Physical History Physical Please care records and office H P at 2112 RPT #:[id number] END OF REPORT [facility] 2021-03-12 21:16:00 [facility] OB Medical Screening Exam REPORT#:[id number] REPORT STATUS: Signed DATE:03/12/21 TIME: 2115 PATIENT: LUIS EDMONDS UNIT #: [id number] ROOM/BED: : 02 AGE: 20 SEX: F ATTEND: Effie Solitario MD ADM AUTHOR: Effie Solitario MD * ALL edits or amendments must be made on the electronic/computer document * Medical Screening Exam Provider Attestation Attestation: The QMP MSE reviewed. Provider at bedside at 2113 Comments: 20 y/o GP0 IUP 35 4/7 presents due to leaking of fluid and contractions. at 2152 RPT #:[id number] END OF REPORT [facility] 2021-03-12 21:16:00 [facility] [place] Evaluation Note REPORT#:[id number] REPORT STATUS: Signed DATE:03/12/21 TIME: 2115 PATIENT: LUIS EDMONDS UNIT #: [id number] ROOM/BED: [facility] : 02 AGE: 20 SEX: F ATTEND: [...] toco Frequency (description): uterine irritability Frequency (minutes): MINING DETAIL DRAFTSPERSON: Normal exteral genitalia Cervical/ exam: Speculum exam: [...] understanding will have her follow-up with her DOOR MANAGER. Assessment: no evidence labor Impression: reactive NST Plan: discharge home Plan discussed with: patient, nurse at 0104 RPT #:[id number] END OF REPORT [facility] 2021-03-01 06:09:00 [facility]) [place] Evaluation Note REPORT#:[id number] REPORT STATUS: Signed DATE:03/01/21 TIME: 608 PATIENT: LUIS EDMONDS UNIT #: [id number] ROOM/BED: [place] [address] : 02 AGE: 20 SEX: F ATTEND: [...] 0542 Pulse 106 03/01 0542 Temp 98.1 / 0540 Resp 16 03/01 0540 Vital Signs Date Temp Pulse Resp B/P B/P Mean Pulse Ox FiO2 / 98.1 106 16 111/72 85.0 PATIENT WEIGHT: Weight (lb): Weight (oz): Weight (kg): Physical Exam Additional comments: Gen: AAOx3 Lungs: normal respiratory effort Neuro: Exam: alert, oriented x3 Abdomen: gravid, soft Uterine activity: Monitor: toco Frequency (description): irregular Frequency (minutes): MINING DETAIL DRAFTSPERSON: Normal exteral genitalia Cervical/ exam: Dilatation (cm): [...] 03/01/21 0853 by Pearl Chavez DO BPP 8/8 ISMA NOT ON U/S SO I CALLED AND VERBAL REPORT FR TECH WAS 13 CM VERTEX VE EXT 1/2 CM, CLOSED INTERNALLY, THICK, POSTERIOR D/C HOME W PRECAUTIONS. F/U W DR. BURCIAGA AT HER APT WEDNESDAY. at 0854 RPT #:[id number] END OF REPORT [facility] 2021-03-01 06:09:00 [facility]) OB Medical Screening Exam REPORT#:[id number] REPORT STATUS: Signed DATE:03/01/21 TIME: 608 PATIENT: LUIS EDMONDS UNIT #: [id number] ROOM/BED: [place] [address] : 02 AGE: 20 SEX: F ATTEND: Luis Burciaga MD ADM AUTHOR: Effie Solitario MD * ALL edits or amendments must be made on the electronic/computer document * Medical Screening Exam Provider Attestation Attestation: The QMP MSE reviewed. Provider at bedside at 0600 Comments: IUP 34 0/7 presents due to decreased movements and pelvic pressure. at 0643 RPT #:[id number] END OF REPORT [facility] 2021-03-01 06:09:00 [facility] ([facility]) [place] Evaluation Note REPORT#:[id number] REPORT STATUS: Signed DATE:03/01/21 TIME: 608 PATIENT: LUIS EDMONDS UNIT #: [id number] ROOM/BED: [place] [address] : 02 AGE: 20 SEX: F ATTEND: [...] Monitor: toco Frequency (description): irregular Frequency (minutes): MINING DETAIL DRAFTSPERSON: Normal exteral genitalia Cervical/ exam: Dilatation (cm): [...] assume care at 0700 at 0647 RPT #:[id number] END OF REPORT [facility] 2021-02-17 15:34:00 [facility] ([facility]) OB Medical Screening Exam REPORT#:[id number] REPORT STATUS: Signed DATE:02/17/21 TIME: 1533 PATIENT: LUIS EDMONDS UNIT #: [id number] ROOM/BED: [place] [address] : 02 AGE: 20 SEX: F ATTEND: Effie Solitario MD ADM DT: AUTHOR: Effie Solitario MD * ALL edits or amendments must be made on the electronic/computer document * Medical Screening Exam Provider Attestation Attestation: The QMP MSE reviewed. Provider at bedside at 1537 Comments: 20 y/o IUP 32 2/7 presents due to gush of fluids and cramping. at 1615 RPT #:[id number] END OF REPORT [facility] 2021-02-17 15:34:00 [facility] ([facility]) [place] Evaluation Note REPORT#:[id number] REPORT STATUS: Signed DATE:02/17/21 TIME: 1533 PATIENT: LUIS EDMONDS UNIT #: [id number] ROOM/BED: : 02 AGE: 20 SEX: F ATTEND: Effie Solitaroi MD ADM DT: AUTHOR: Effie Solitario MD * ALL edits or amendments must be made on the electronic/computer document * [place] History Chief complaint: uterine contractions, suspected ruptured memb HPI: 20 y/o IUP 32 2/ presents due to [...] Resp 16 02/17 1536 B/P Mean 76.0 / 1524 Pulse Ox 99 02/17 1524 B/P 105/59 08/ 1524 Pulse 122 / 1524 Vital Signs Date Temp Pulse Resp B/P B/P Mean Pulse Ox FiO2 / 98.3 122 16 105/59 76.0 99 PATIENT WEIGHT: Weight (lb): Weight (oz): Weight (kg): Physical Exam Additional comments: Gen: AAOx3 Lungs: normal respiratory effort Neuro: Exam: alert, oriented x3 Abdomen: gravid, soft Uterine activity: Monitor: toco Frequency (description): none Frequency (minutes): MINING DETAIL DRAFTSPERSON: Normal exteral genitalia Cervical/ exam: Speculum exam: [...] understanding will have her follow-up with her DOOR MANAGER. Assessment: no evidence labor Impression: reactive NST Plan: discharge home Plan discussed with: patient, nurse at 1950 RPT #:[id number] END OF REPORT [facility] 2021-02-12 21:22:00 [facility] ([facility] OB Medical Screening Exam REPORT#:[id number] REPORT STATUS: Signed DATE:02/12/21 TIME: 2121 PATIENT: LUIS EDMONDS UNIT #: [id number] ROOM/BED: : 02 AGE: 20 SEX: F [...] nausea and decreased movements. at 0915 RPT #:[id number] END OF REPORT [facility] 2021-02-12 21:21:00 [facility] ([facility]) [place] Evaluation Note REPORT#:[id number] REPORT STATUS: Signed DATE:02/12/21 TIME: 2120 PATIENT: LUIS EDMONDS UNIT #: [id number] ROOM/BED: : 02 AGE: 20 SEX: F [...] B/P Mean 78.0 02/12 1919 B/P 120/61 07/28 191 Pulse 137 02/12 1919 Vital Signs Date Temp Pulse Resp B/P B/P Mean Pulse Ox FiO2 02/12 137 120/61 78.0 PATIENT WEIGHT: Weight (lb): 167 Weight (oz): Weight (kg): 75.75 Physical Exam Additional comments: Gen: AAOx3 Lungs: normal respiratory effort Neuro: Exam: alert, oriented x3 Abdomen: gravid, soft Uterine activity: Monitor: toco Frequency (description): none Frequency (minutes): MINING DETAIL DRAFTSPERSON: Normal exteral genitalia Cervical/ exam: Speculum exam: no discharge Dilatation (cm): closed Effacement (%): thick station: high FHR evaluation: FHR category: category I Results Findings/Data: Laboratory Tests: 02/12 Miscellaneous Fibronectin (NEGATIVE) NEGATIVE Urines Urine Color (YEL/STRAW) YELLOW Urine Appearance (CLEAR) CLEAR Urine pH (5.0 - 7.0) 6.0 Ur Specific [place] (1.005 - 1.030) 1.006 Urine Protein (NEGATIVE) [...] understanding will have her follow-up with her DOOR MANAGER. Assessment: no evidence labor Impression: reactive NST Plan: discharge home Plan discussed with: patient, nurse at 0921 RPT #:[id number] END OF REPORT [facility] 2021-01-29 03:41:00 [facility]) [place] Evaluation Note REPORT#:[id number] REPORT STATUS: Signed DATE:01/29/21 TIME: 034 PATIENT: LUIS EDMONDS UNIT #: [id number] ROOM/BED: [place] [address] : 02 AGE: 20 SEX: F ATTEND: [...] 1 TAB PO DAILY 12/25/20 01/29/21 FUMARATE/FA 5724 0628 () Strength: 1 EACH TAB Allergies Uncoded [...] pH (5.0 - 7.0) 7.0 Ur Specific [place] (1.005 - 1.030) 1.010 Urine Protein (NEGATIVE) [...] f/u as scheduled with primary OB in [place], [place] at 0355 RPT #:[id number] END OF REPORT [facility] 2021-01-29 03:39:00 [facility] ([facility]) OB Medical Screening Exam REPORT#:[id number] REPORT STATUS: Signed DATE:01/29/21 TIME: 338 PATIENT: LUIS EDMONDS UNIT #: [id number] ROOM/BED: [place] [address] : 02 AGE: 20 SEX: F ATTEND: [...] no lof/rom. no vb. at 0341 RPT #:[id number] END OF REPORT [facility] 2020-12-25 16:25:00 [facility] ([facility]) [place] Evaluation Note REPORT#:[id number] REPORT STATUS: Signed DATE:12/25/20 TIME: 1624 PATIENT: LUIS EDMONDS UNIT #: [id number] ROOM/BED: [place] [address] : 02 AGE: 20 SEX: F ATTEND: [...] She was told in prior u/s at [facility] that ISMA was low, she [...] for cxn. Will f/u at 1632 RPT #:[id number] END OF REPORT [facility] 2020-12-25 16:25:00 [facility] ([facility]) [place] Evaluation Note REPORT#:[id number] REPORT STATUS: Signed DATE:12/25/20 TIME: 1625 PATIENT: LUIS EDMONDS UNIT #: [id number] ROOM/BED: [place] [address] : 02 AGE: 20 SEX: F ATTEND: [...] She was told in prior u/s at [facility] that ISMA was low, she [...] Date/Time Procedure - Status Source Growth 12/25 1621 Wet Prep - ORD VAGINAL Diagnosis, Assessment [...] her OB this week. at 1807 RPT #:[id number] END OF REPORT [facility] 2020-12-25 16:24:00 [facility] ([facility]) OB Medical Screening Exam REPORT#:[id number] REPORT STATUS: Signed DATE:12/25/20 TIME: 1624 PATIENT: LUIS EDMONDS UNIT #: [id number] ROOM/BED: [facility] : 02 AGE: 20 SEX: F ATTEND: Pearl Chavez DO ADM AUTHOR: Pearl Chavez DO * ALL edits or amendments must be made on the electronic/computer document * Medical Screening Exam Provider Attestation Comments: Pt triaged at 1610. at 1625 RPT #:[id number] END OF REPORT [facility] 2020-11-23 00:54:00 [facility] ([facility]) OB Triage Visit REPORT#:[id number] REPORT STATUS: Signed DATE:11/23/20 TIME: 0054 PATIENT: LUIS EDMONDS UNIT #: [id number] ROOM/BED: [place] [address] : 02 AGE: 19 SEX: F ATTEND: [...] and reassured. Patient recieves PNC at the [facility]. Did not need to wear a [...] type ordered Ultrasound complete at 0107 RPT #:[id number] END OF REPORT [facility] 2020-10-05 03:31:00 [facility] ([facility]) EMERGENCY PROVIDER REPORT REPORT#:[id number] REPORT STATUS: Signed DATE:10/05/20 TIME: 330 PATIENT: LUIS EDMONDS UNIT #: [id number] ROOM/BED: AGE: 19 SEX: F PCP PHYS: [...] 10/05 0401 O2 Delivery Room air 10/05 013 Temp 37.2 10/05 0139 Review of Vital [...] 0210: [Embedded Image Not Available] Laboratory Tests: 10/055 0210 Chemistry Sodium (134 - 147 mEq/L) [...] % (Auto) (28.0 - 48.0 %) 33.4 Pacific % (Auto) (3.0 - 15.0 %) 6.3 Eos % (Auto) (1.0 - 8.0 %) 1.1 Baso % (Auto) (0.0 - 2.0 %) 0.5 Neut # (Auto) (2.0 - 3.2 x10 3/uL) 7.28 H Lymph # (Auto) (1.0 - 3.8 x10 3/uL) 4.17 H Pacific # (Auto) (0.1 - 0.8 x10 3/uL) [...] x10 3/uL) 0.00 Miscellaneous Maternal Serum HCG 31272.3 Urines Urine Color (YEL/STRAW) YELLOW Urine Appearance (CLEAR) CLEAR Urine pH (5.0 - 7.0) 5.0 Ur Specific [place] (1.005 - 1.030) 1.017 Urine Protein (NEGATIVE) [...] Course Medication(s) Ordered Medication(s) Ordered: Autonomic Drugs Sig/Trish Start time Last Medication Dose Route Stop Time Status Admin Dicyclomine HCl 20 MG X1ED STA 10/05 0145 DC 10/05 PO 10/05 145 0157 Electrolytic, Caloric, And Gregor Sig/Trish Start time Last Medication Dose Route Stop [...] 10/05 0401 O2 Delivery Room air 10/05 013 Temp 37.2 10/05 0139 All vital signs [...] ... Additional Instructions TYLENOL DIRECTED at [address] [facility] #:[id number] END OF REPORT [facility] 2020-08-22 20:42:00 [facility] ([facility]) EMERGENCY PROVIDER REPORT REPORT#:[id number] REPORT STATUS: Signed DATE:08/22/20 TIME: 2041 PATIENT: LUIS EDMONDS UNIT #: [id number] ROOM/BED: AGE: 19 SEX: F PCP PHYS: Elina Rome MD SERVICE AUTHOR: Cathy Bruce * ALL edits or amendments must be made on the electronic/computer document * HPI- Female Free Text HPI Notes Free Text HPI Notes 19-year-old female G1, 6 weeks EGA with LMP12/21 presents to ED 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 She reports associated nausea, [...] No palpable masses or pulsetile masses. Negative [place] P[place] Sign. No TTP at [place] Ext: [...] % (Auto) (28.0 - 48.0 %) 30.6 Pacific % (Auto) (3.0 - 15.0 %) 5.9 Eos % (Auto) (1.0 - 8.0 %) 0.6 L Baso % (Auto) (0.0 - 2.0 %) 0.7 Neut # (Auto) (2.0 - 3.2 x10 3/uL) 6.51 H Lymph # (Auto) (1.0 - 3.8 x10 3/uL) 3.22 Pacific # (Auto) (0.1 - 0.8 x10 3/uL) [...] x10 3/uL) 0.00 Miscellaneous Maternal Serum HCG 94085.6 Urines Urine Color (YEL/STRAW) STRAW Urine Appearance (CLEAR) CLEAR Urine pH (5.0 - 7.0) 6.0 Ur Specific [place] (1.005 - 1.030) 1.008 Urine Protein (NEGATIVE) [...] age of 6 weeks 4 days. SL: KEI-Elin Impression By: Phil Izquierdo M.D. ULTRASOUND - [...] Ordered Medication(s) Ordered: Electrolytic, Caloric, And Gregor Sig/Trish Start time Last Medication Dose Route Stop Time Status Admin Sodium Chloride 1,000 ML BOLUS ONCE ONE 08/22 2044 DC 08/22 IV 08/22 Gastrointestinal Drugs Sig/Trish Start time Last Medication Dose Route Stop [...] a call to 911. at 2346 RPT #:[id number] END OF REPORT [facility] 2020-08-22 20:42:00 [facility] ([facility]) EMERGENCY PROVIDER REPORT REPORT#:[id number] REPORT STATUS: Signed DATE:08/22/20 TIME: 2041 PATIENT: LUIS EDMONDS UNIT #: [id number] ROOM/BED: AGE: 19 SEX: F PCP PHYS: Elina Rome MD SERVICE AUTHOR: Cathy Bruce * ALL edits or amendments must be made on the electronic/computer document * Cathy Bruce 08/22/202041: HPI- Female Free Text HPI Notes Free Text HPI Notes 19-year-old female G1, 6 weeks EGA with LMP1/21 presents to ED 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 She reports associated nausea, [...] No palpable masses or pulsetile masses. Negative [place] P[place] Sign. No TTP at [place] Ext: [...] % (Auto) (28.0 - 48.0 %) 30.6 Pacific % (Auto) (3.0 - 15.0 %) 5.9 Eos % (Auto) (1.0 - 8.0 %) 0.6 L Baso % (Auto) (0.0 - 2.0 %) 0.7 Neut # (Auto) (2.0 - 3.2 x10 3/uL) 6.51 H Lymph # (Auto) (1.0 - 3.8 x10 3/uL) 3.22 Pacific # (Auto) (0.1 - 0.8 x10 3/uL) [...] x10 3/uL) 0.00 Miscellaneous Maternal Serum HCG 82066.6 Urines Urine Color (YEL/STRAW) STRAW Urine Appearance (CLEAR) CLEAR Urine pH (5.0 - 7.0) 6.0 Ur Specific [place] (1.005 - 1.030) 1.008 Urine Protein (NEGATIVE) [...] Ordered Medication(s) Ordered: Electrolytic, Caloric, And Gregor Sig/Trish Start time Last Medication Dose Route Stop Time Status Admin Sodium Chloride 1,000 ML BOLUS ONCE ONE 08/22 2044 DC 08/22 IV 08/22 Gastrointestinal Drugs Sig/Trish Start time Last Medication Dose Route Stop [...] )( Discharged to Home Yes )( Time 2225 )( Date 08/22/20 Discharge/Care Plan Counseled Regarding [...] Saw Pt Alone I have reviewed the PA/TANK SETTER's note and plan of care. I was available for consultation as needed at all times during the patient's visit in the emergency department. I agree with the clinical impression, plan and disposition. at 2346 at 2336 RPT #:[id number] END OF REPORT [facility] 2020-02-15 23:20:00 [facility] ([facility]) EMERGENCY PROVIDER REPORT REPORT#:[id number] REPORT STATUS: Signed DATE:02/15/20 TIME: 2319 PATIENT: LUIS EDMONDS UNIT #: [id number] ROOM/BED: AGE: 19 SEX: F PCP PHYS: Elina Rome MD SERVICE AUTHOR: Amilcar Pablo TANK SETTER * ALL edits or amendments must be [...] Covid exposures. General Initial Greet Date/Time 02/15/20 4885 Presentation Chief Complaint Fever, Sore throat Hx [...] [Embedded Image Not Available] Laboratory Tests: 02/14 Chemistry Sodium (134 - 147 mEq/L) 134 [...] (Auto) (28.0 - 48.0 %) 13.9 L Pacific % (Auto) (3.0 - 15.0 %) 10.0 Eos % (Auto) (1.0 - 8.0 %) 0.0 L Baso % (Auto) (0.0 - 2.0 %) 0.4 Neut # (Auto) (2.0 - 3.2 x10 3/uL) 9.16 H Lymph # (Auto) (1.0 - 3.8 x10 3/uL) 1.70 Pacific # (Auto) (0.1 - 0.8 x10 3/uL) [...] pH (5.0 - 7.0) 6.0 Ur Specific [place] (1.005 - 1.030) 1.015 Urine Protein (NEGATIVE) [...] to resolution recommended. SL: TORI-Elin Impression By: [email or web address] - Jeromy Wolfe M.D. [...] Course Medication(s) Ordered Medication(s) Ordered: Anti-Infective Agents Sig/Trish Start time Last Medication Dose Route Stop Time Status Admin Ceftriaxone Sodium 1,000 MG X1ED STA 02/140 DC 02/14 Sodium Chloride 10 ML IV 02/14 2322 232 Central Nervous System Agents Sig/Trish Start time Last Medication Dose Route Stop Time Status Admin Acetaminophen 1,000 MG X1ED STA 02/142 DC 02/14 PO 02/14 2313 2320 Diagnostic Agents Sig/Trish Start time Last Medication Dose Route Stop Time Status Admin Iopamidol 70 ML .STK-MED ONE 02/156 DC 02/15 IV 02/15 137 0136 Electrolytic, Caloric, And Gregor Sig/Trish Start time Last Medication Dose Route Stop Time Status Admin Sodium Chloride 1,000 ML X1ED STA 02/142 DC 02/14 IV 02/14 2313 2321 Eye, Ear, Nose And Throat (Een Sig/Trish Start time Last Medication Dose Route Stop Time Status Admin Dexamethasone Sodium 10 MG X1ED STA 02/142 DC 02/14 Phosphate IV 02/14 2313 2321 Gastrointestinal Drugs Sig/Trish Start time Last Medication Dose Route Stop [...] Mean 68 02/158 O2 Delivery Room air 07/31 0328 Temp 36.8 02/16 328 Pulse 83 02/16 [...] Elina Rome MD (PCP/Family) at 0332 RPT #:[id number] END OF REPORT [facility] 2020-02-15 23:20:00 [facility] ([facility]) EMERGENCY PROVIDER REPORT REPORT#:[id number] REPORT STATUS: Signed DATE:02/15/20 TIME: 2319 PATIENT: LUIS EDMONDS UNIT #: [id number] ROOM/BED: AGE: 19 SEX: F PCP PHYS: [...] [Embedded Image Not Available] Laboratory Tests: 02/14 Chemistry Sodium (134 - 147 mEq/L) 134 [...] (Auto) (28.0 - 48.0 %) 13.9 L Pacific % (Auto) (3.0 - 15.0 %) 10.0 Eos % (Auto) (1.0 - 8.0 %) 0.0 L Baso % (Auto) (0.0 - 2.0 %) 0.4 Neut # (Auto) (2.0 - 3.2 x10 3/uL) 9.16 H Lymph # (Auto) (1.0 - 3.8 x10 3/uL) 1.70 Pacific # (Auto) (0.1 - 0.8 x10 3/uL) [...] pH (5.0 - 7.0) 6.0 Ur Specific [place] (1.005 - 1.030) 1.015 Urine Protein (NEGATIVE) [...] Course Medication(s) Ordered Medication(s) Ordered: Anti-Infective Agents Sig/Trish Start time Last Medication Dose Route Stop Time Status Admin Ceftriaxone Sodium 1,000 MG X1ED STA 02/140 DC 02/14 Sodium Chloride 10 ML IV 02/14 2322 2324 Central Nervous System Agents Sig/Trish Start time Last Medication Dose Route Stop Time Status Admin Acetaminophen 1,000 MG X1ED STA 02/142 DC 02/14 PO 02/143 2320 Diagnostic Agents Sig/Trish Start time Last Medication Dose Route Stop Time Status Admin Iopamidol 70 ML .STK-MED ONE 02/15 0136 DC 02/15 IV 02/15 0137 0136 Electrolytic, Caloric, And Gregor Sig/Trish Start time Last Medication Dose Route Stop Time Status Admin Sodium Chloride 1,000 ML X1ED STA 02/142 DC 02/14 IV 02/14 2313 2321 Eye, Ear, Nose And Throat (Een Sig/Trish Start time Last Medication Dose Route Stop Time Status Admin Dexamethasone Sodium 10 MG X1ED STA 02/142 DC 02/14 Phosphate IV 02/143 2321 Gastrointestinal Drugs Sig/Trish Start time Last Medication Dose Route Stop Time Status Admin Ondansetron HCl 4 MG X1ED STA 02/14 2312 DC 02/14 IV 02/14 2313 232 Patient [...] Temp 36.8 02/16 328 Pulse 83 02/15 032 Resp 18 02/16 328 All vital signs [...] Saw Pt Alone I have reviewed the PA/TANK SETTER's note and plan of care. I was available for consultation as needed at all times during the patient's visit in the emergency department. I agree with the clinical impression, plan and disposition. at 0332 RPT #:[id number] END OF REPORT [facility] 2020-02-15 23:20:00 [facility] ([facility] EMERGENCY PROVIDER REPORT REPORT#:[id number] REPORT STATUS: Signed DATE:02/15/20 TIME: 2319 PATIENT: LUIS EDMONDS UNIT #: [id number] ROOM/BED: AGE: 19 SEX: F PCP PHYS: Elina Rome MD SERVICE AUTHOR: Amilcar Pablo TANK SETTER * ALL edits or amendments must be [...] 68 02/15 0328 O2 Delivery Room air 07327 Temp 36.8 02/16 328 Pulse 83 02/16 [...] (Auto) (28.0 - 48.0 %) 13.9 L [place] % (Auto) (3.0 - 15.0 %) 10.0 Eos % (Auto) (1.0 - 8.0 %) 0.0 L Baso % (Auto) (0.0 - 2.0 %) 0.4 Neut # (Auto) (2.0 - 3.2 x10 3/uL) 9.16 H Lymph # (Auto) (1.0 - 3.8 x10 3/uL) 1.70 Pacific # (Auto) (0.1 - 0.8 x10 3/uL) [...] pH (5.0 - 7.0) 6.0 Ur Specific [place] (1.005 - 1.030) 1.015 Urine Protein (NEGATIVE) [...] Course Medication(s) Ordered Medication(s) Ordered: Anti-Infective Agents Sig/Trish Start time Last Medication Dose Route Stop Time Status Admin Ceftriaxone Sodium 1,000 MG X1ED STA 02/14 2320 DC 02/14 Sodium Chloride 10 ML IV 02/14 2322 2324 Central Nervous System Agents Sig/Trish Start time Last Medication Dose Route Stop Time Status Admin Acetaminophen 1,000 MG X1ED STA 02/14 2312 DC 02/14 PO 02/14 2313 2320 Diagnostic Agents Sig/Trish Start time Last Medication Dose Route Stop Time Status Admin Iopamidol 70 ML .STK-MED ONE 02/15 0136 DC 02/15 IV 02/15 137 0136 Electrolytic, Caloric, And Gregor Sig/Trish Start time Last Medication Dose Route Stop Time Status Admin Sodium Chloride 1,000 ML X1ED STA 02/14 2312 DC 02/14 IV 02/14 2313 2321 Eye, Ear, Nose And Throat (Een Sig/Trish Start time Last Medication Dose Route Stop Time Status Admin Dexamethasone Sodium 10 MG X1ED STA 02/14 2312 DC 02/14 Phosphate IV 02/14 2313 2321 Gastrointestinal Drugs Sig/Trish Start time Last Medication Dose Route Stop [...] Saw Pt Alone I have reviewed the PA/TANK SETTER's note and plan of care. I was available for consultation as needed at all times during the patient's visit in the emergency department. I agree with the clinical impression, plan and disposition. 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 Pt reports eating sour Skittles and felt sensation of throat swelling with associated neck/throat itchiness and SOB. 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 Pt was seen here previously on 05/02/19 [...] Ox 100 05/22 1120 B/P 119/56 05/22 112 B/P Mean 77 05/22 1120 O2 Delivery Room air 05/22 1120 Temp 36.7 05/22 1120 Pulse 90 11/04 1120 Resp 16 05/22 112 Last Documented: Result Date Time Pulse Ox 97 05/22 131 B/P 110/65 05/22 131 B/P Mean 80 05/22 131 O2 Delivery Room air 05/22 1313 Temp 36.7 05/22 1313 Pulse 90 05/22 131 Resp 21 05/22 131 Review of Vital Signs Reviewed Focused PE [...] 100 On: Room air Interpretation Interpreted by ak, Pulse oximetry normal Time 1120 Portions of this section were scribed by Laith Harvey on 05/22/19 at 1129 Re-Evaluation MDM )( Re-Evaluation/Progress #1 Text/Dict Note NO edema of OP, tongue, or lips. Pt resting, NAD, feels much better. Time of Re-Eval 1257 )( Re-Eval Status Improved ED Course Medication(s) Ordered Medication(s) Ordered: Autonomic Drugs Sig/Trish Start time Last Medication Dose Route Stop Time Status Admin Albuterol Sulfate 2.5 MG Q15M 05/22 1130 DC 05/22 NEB 05/22 1201 1138 Eye, Ear, Nose And Throat (Een Sig/Trish Start time Last Medication Dose Route Stop Time Status Admin Ipratropium [place] 0.5 MG Q15M 05/22 1130 DC 05/22 NEB 05/22 1201 1138 Gastrointestinal Drugs Sig/Trish Start time Last Medication Dose Route Stop Time Status Admin Famotidine 20 MG X1ED STA 05/22 1128 DC 05/22 PO 05/22 1129 1137 Hormones And Synthetic Substit Sig/Trish Start time Last Medication Dose Route Stop [...] Laith Harvey on 05/22/19 at 1129 at 202 RPT #:[id number] END OF REPORT [facility] 2019-05-02 09:53:00 [facility] ([facility]) EMERGENCY PROVIDER REPORT REPORT#:[id number] REPORT STATUS: Signed DATE:05/02/19 TIME: 952 PATIENT: LUIS EDMONDS UNIT #: [id number] ROOM/BED: AGE: 18 SEX: F PCP PHYS: Elina Rome MD SERVICE AUTHOR: Carla Toledo MD * ALL edits or amendments must be made on the electronic/computer document * HPI-Allergic Reaction Peds General Confirmed Patient Yes Initial Greet Date/Time 05/02/[address] Rome ([facility]) Presentation Chief Complaint Allergic reaction Hx Obtained from Patient, Senior Clinical Research Associate Onset Occurred Today Symptom Duration Since onset [...] pen, and took 50 mg of benadryl TAMALE MACHINE FEEDER. Now c/o itchy throat. Denies nausea and [...] Interpreted by me, Pulse oximetry normal Time 0944 Portions of this section were scribed by Priscilla Edwards on 05/02/19 at 0957 Re-Evaluation MDM )( Re-Evaluation/Progress #1 Text/Dict Note Pt states her sx have resolved, parents are at bedside, everyone understands tx plan. Time of Re-Eval 1116 )( Re-Eval Status Improved, Resolved ED Course Medication(s) Ordered Medication(s) Ordered: Autonomic Drugs Sig/Trish Start time Last Medication Dose Route Stop Time Status Admin Albuterol/Ipratropium 3 ML X1ED STA 05/02 0953 DC 05/02 NEB 05/02 0954 1002 Gastrointestinal Drugs Sig/Trish Start time Last Medication Dose Route Stop Time Status Admin Famotidine 20 MG X1ED STA 05/02 0953 DC 05/02 IV 05/02 0954 1002 Hormones And Synthetic Substit Sig/Trish Start time Last Medication Dose Route Stop [...] Supervising Physician Note Scribe Statement Priscilla Edwards, 05/02/19952, scribing for and in the presence of [Dr. Toledo]. Signed By: Priscilla Edwards, 05/02/19952 Provider Scribed Statement I personally performed the services described in this documentation and reviewed the documentation that was dictated to the scribe(s) in my presence, and it accurately records my words and actions. Carla Toledo, 05/02/19 Portions of this section were scribed by Priscilla Edwards on 05/02/19 at 0957 at 1436 RPT #:[id number] END OF REPORT [facility]
[2024-06-13] MEDS ORDERED: ACETAMINOPHEN 325 MG TABLET ONE (00:11)
[2024-06-13] MEDS ORDERED: KETOROLAC 30 MG/ML INJ ONE (00:11)
--- NOTE | 2024-06-13 02:09 | EDPHYS ---
Physician Documentation [facility] Name: Hilaria Rogers Age: 23 yrs Sex: Female : 2000 Arrival Date: 06/12/2024 Time: 23:27 Bed 14 Private MD: ED Physician Nick Martinez HPI: 06/13 00:02 This 23 yrs old Female presents to ER via Unassigned with complaints of Ankle Injury - sb4 Right. 00:02 Patient states that she tripped and fell over a log this evening while walking in the sb4 darkness. Is complaining of pain to her right ankle. States that she has broken it in the past. Denies any prior surgeries. States the pain is radiating up to her knee. Is able to move her toes. Pulses are intact. 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 - Infectious Disease History:: Denies. - Social history:: Smoking status: Reported history of juuling and/or vaping. ROS: 00:02 Constitutional: Negative for fever, chills, and weight loss, sb4 00:02 MS/extremity: Positive for injury or acute deformity, pain, of the right ankle, 00:02 All other systems are negative, Exam: 00:02 Constitutional: This is a well developed, well nourished patient who is awake, alert, sb4 and in no acute distress. Head/Face: Normocephalic, atraumatic. Eyes: Extra-ocular motions intact. Periorbital areas with no swelling, redness, or edema. ENT: Mucous membranes moist. 00:02 Musculoskeletal/extremity: Joints: the right ankle displays limited range of motion, painful range of motion, swelling, tenderness, Vital Signs: 06/12 23:42 BP 108 / 86; Pulse 87; Resp 17 S; Temp 97.3(O); Pulse Ox 100% on R/A; Weight 83.91 kg; ha1 Height 5 ft. 6 in. ; 06/13 00:24 BP 118 / 68; Pulse 80; Resp 18; Temp 98; Pulse Ox 99% on R/A; Height 5 ft. 3 in. ; Pain kj2 02/25; 01:20 BP 126 / 81; Pulse 77; Resp 20; Pulse Ox 100% ; kj2 02:20 BP 116 / 63; Pulse 78; Resp 18; Temp 98; Pulse Ox 100% on R/A; kj2 06/12 23:42 Body Mass Index 29.86 (83.91 kg, 160.02 cm) ha1 06/13 00:24 Pain Scale: Adult kj2 MDM: 06/12 23:44 Medical Screening Exam initiated sb4 06/13 00:25 Independent interpretation of the following test(s) in the Emergency Department X-Ray: sb4 My interpretation is my interpretation of the right xray images is no fracture or dislocation . 01:12 Data reviewed: vital signs, nurses notes, radiologic studies, and as a result, I will sb4 discharge patient. Counseling: I had a detailed discussion with the patient and/or guardian regarding the historical points, exam findings, and any diagnostic results supporting the discharge/admit diagnosis, radiology results, to return to the emergency department if symptoms worsen or persist or if there are any questions or concerns that arise at home. 06/12 23:57 Order name: Ankle Right 3 View XRAY sb4 06/13 02:03 Order name: Walking boot; Complete Time: 02:18 sb4 Administered Medications: 00:21 Drug: Ketorolac IM 30 mg IM once Route: IM; Site: right deltoid; kj2 02:05 Follow up: Response: No adverse reaction; Pain is unchanged, physician notified kj2 00:22 Drug: Acetaminophen PO 650 mg PO once Route: PO; kj2 02:05 Follow up: Response: No adverse reaction; Pain is unchanged, physician notified kj2 02:10 Drug: HYDROcodone-acetaminophen PO 5 mg-325 mg 1 tabs PO once Route: PO; kj2 02:23 Follow up: Response: No adverse reaction; Medication administered at discharge. kj2 Disposition: 03:05 Co-signature as Attending Physician, Nick Martinez MD I reviewed the patient's care rt provided by the Advanced Practice Provider and agree with the diagnosis and treatment plan. Disposition Summary: 06/13/24 02:09 Discharge Ordered Notes: Location: Home sb4 Problem: new sb4 Symptoms: have improved sb4 Condition: Stable sb4 Diagnosis - Sprain of unspecified ligament of left ankle, initial encounter sb4 Followup: sb4 - With: Arden Colin MD - When: As needed - Reason: Recheck today's complaints, Re-evaluation by your physician Discharge Instructions: - Discharge Summary Sheet sb4 - Ankle Sprain, [id number] sb4 Forms: - Medication Reconciliation Form sb4 - Antibiotic Education sb4 - Prescription Opioid Use sb4 - Patient Portal Instructions sb4 - Leadership Thank You Letter sb4 Signatures: Dispatcher [employer] Deisi Gonzalez, RN RN ha1 Candace Baum PAPatiC PA-C sb4 Nick Martinez MD MD rt Faiza Estrada, RN RN kj2
--- NOTE | 2024-06-13 02:09 | ER ---
Nurse's Notes [facility] Name: Hilaria Rogers Age: 23 yrs Sex: Female : 2000 Arrival Date: 06/12/2024 Time: 23:27 Bed 14 Private MD: Diagnosis: Sprain of unspecified ligament of left ankle, initial encounter Presentation: 06/12 23:42 Chief complaint: Patient states: I TRIPPED OVER AND INJURED MY RIGHT FOOT. ha1 23:42 Coronavirus screen: Vaccine status: Patient reports being unvaccinated. Ebola Screen: ha1 No symptoms or risks identified at this time. Initial Sepsis Screen: Does the patient meet any 2 criteria? No. Patient's initial sepsis screen is negative. Does the patient have a suspected source of infection? No. Patient's initial sepsis screen is negative. Risk Assessment: Do you want to hurt yourself or someone else? Patient reports no desire to harm self or others. Onset of symptoms was June 13, 2024. 23:42 Method Of Arrival: Wheelchair ha1 23:42 Acuity: CONCHITA 4 ha1 Triage Assessment: 06/13 00:25 General: Appears right foot slightly swolen. Injury Description: right foot slightly kj2 swollen. 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 - Infectious Disease History:: Denies. - Social history:: Smoking status: Reported history of juuling and/or vaping. Screenin:18 Abuse screen: Denies threats or abuse. Denies injuries from another. Nutritional ha1 screening: No deficits noted. Tuberculosis screening: No symptoms or risk factors identified. 00:25 [facility] ED Fall Risk Assessment (Adult) History of falling in the last 3 months, kj2 including since admission Yes- single mechanical fall (1 pt) Confusion or Disorientation No (0 pts) Intoxicated or Sedated No (0 pts) Impaired Gait No (0 pts) Mobility Assist Device Used No (0 pt) Altered Elimination No (0 pt) Score/Fall Risk Level 0 - 2 = Low Risk Maintained a safe environment, Hourly rounding (assess needs \T\ fall precautionary measures) done. Assessment: 00:22 General: Appears in no apparent distress. uncomfortable, Behavior is calm, cooperative. kj2 Pain: Complains of pain in right leg and right ankle Pain currently is 8 out of 10 on a pain scale. Neuro: Level of Consciousness is awake, alert, obeys commands, Oriented to person, place, time, situation. Cardiovascular: Patient's skin is warm and dry. Respiratory: Airway is patent Respiratory effort is unlabored. GI: No signs and/or symptoms were reported involving the gastrointestinal system. : No signs and/or symptoms were reported regarding the genitourinary system. Musculoskeletal: Reports pain in right leg and right ankle. 01:20 Reassessment: Patient appears in no apparent distress at this time. Patient and/or kj2 family updated on plan of care and expected duration. Pain level reassessed. Patient is alert, oriented x 3, equal unlabored respirations, skin warm/dry/pink. 02:19 Reassessment: Patient appears in no apparent distress at this time. Patient and/or kj2 family updated on plan of care and expected duration. Pain level reassessed. Patient is alert, oriented x 3, equal unlabored respirations, skin warm/dry/pink. Vital Signs: 06/12 23:42 BP 108 / 86; Pulse 87; Resp 17 S; Temp 97.3(O); Pulse Ox 100% on R/A; Weight 83.91 kg; ha1 Height 5 ft. 6 in. ; 06/13 00:24 BP 118 / 68; Pulse 80; Resp 18; Temp 98; Pulse Ox 99% on R/A; Height 5 ft. 3 in. ; Pain kj2 02/25; 01:20 BP 126 / 81; Pulse 77; Resp 20; Pulse Ox 100% ; kj2 02:20 BP 116 / 63; Pulse 78; Resp 18; Temp 98; Pulse Ox 100% on R/A; kj2 06/12 23:42 Body Mass Index 29.86 (83.91 kg, 160.02 cm) ha1 06/13 00:24 Pain Scale: Adult kj2 ED Course: 06/12 23:29 Patient arrived in ED. ra3 23:30 Candace Baum [facility]C [facility] sb4 23:30 Nick Martinez MD is Attending Physician. sb4 06/13 00:02 Faiza Estrada, RN is Primary Nurse. kj2 00:16 Triage completed. ha1 00:26 Patient has correct armband on for positive identification. Bed in low position. Call kj2 light in reach. Adult w/ patient. Provided Education on: call light, fall precautions. 00:26 Arm band placed on Patient placed in an exam room. kj2 01:03 Ankle Right 3 View XRAY In Process Unspecified. EDMS 02:09 Arden Colin MD is Referral Physician. sb4 02:22 No provider procedures requiring assistance completed. kj2 02:27 Patient did not have IV access during this emergency room visit. kj2 Administered Medications: 00:21 Drug: Ketorolac IM 30 mg IM once Route: IM; Site: right deltoid; kj2 02:05 Follow up: Response: No adverse reaction; Pain is unchanged, physician notified kj2 00:22 Drug: Acetaminophen PO 650 mg PO once Route: PO; kj2 02:05 Follow up: Response: No adverse reaction; Pain is unchanged, physician notified kj2 02:10 Drug: HYDROcodone-acetaminophen PO 5 mg-325 mg 1 tabs PO once Route: PO; kj2 02:23 Follow up: Response: No adverse reaction; Medication administered at discharge. kj2 Medication: 02:22 VIS not applicable for this client. kj2 Outcome: 02:09 Discharge ordered by . sb4 02:22 Condition: stable kj2 02:23 Discharged to home via wheelchair, with family, kj2 02:23 Discharge instructions given to patient, Instructed on discharge instructions, follow up and referral plans. Demonstrated understanding of instructions, follow-up care, 02:38 Patient left the ED. kj2 Signatures: Dispatcher [employer] EDDE Deisi Guzman, RN RN ha1 Candace Baum, PA-C PA-C sb4 Trisha Morrison ra3 Faiza Estrada, RN RN kj2
[2024-06-13] MEDS ORDERED: HYDROCODONE/APAP 5/325 MG TAB ONE (02:10)
--- NOTE | 2024-06-13 06:08 | RAD REPORT ---
EXAM: XR Right Ankle Complete, 3 or More Views CLINICAL HISTORY: Pain. TECHNIQUE: Frontal, lateral and oblique views of the right ankle. COMPARISON: No relevant prior studies available. FINDINGS: Bones/joints: Unremarkable. No acute fracture. No dislocation. Soft tissues: Unremarkable. IMPRESSION: No acute injury. Electronically signed by: Payam Aguiar MD 06/13/2024 02:35 AM [employer]PER[employer]OR [employer] Due to temporary technical issues with the PACS/[employer] reporting system, reports are being jimbo d by the in-house radiologist without review as a courtesy to ensure prompt reporting the interpreting radiologist is fully responsible for the content of the report. Transcribed Date/Time: 06/13/2024 6:07 AM
[2024-06-13 09:27] VITALS: TEMP 98
[2024-06-13 09:29] VITALS: O2SAT 100
[2024-06-13 09:30] VITALS: BP 116/63
== END 2024-06-13 02:38 | disposition home or self-care (01) ==
LOC: ER 23:27
DX: S93.401A Sprain of unspecified ligament of right ankle, initial encounter (principal)
CPT/HCPCS: 96372; 99284

== ENCOUNTER 2024-08-13 20:33 | Emergency (ER) | payer SELFPAY ==
--- OUTSIDE RECORDS SUMMARY | 2024-08-13 20:40 | XMS REPORT | Continuity of Care Document ---
Author Name Unknown Address [address] [facility] [address] [place] [address] [facility] thconnect Address [address] [facility] [place] [address] Care Team Providers Care Automotive Design Drafter Name Role Phone FREDERICK RICHARDSON Primary Care Physician Unavailab Brittnee Acosta Attending Clinician UnavailMADHAVI Garnett Attending Clinician Unavailable MERT MILES Attending Clinician Unavailable MERT MILES Attending Clinician Unavailable PHILL ROMAN Attending Clinician UnavailPhill Garnett MD Attending Clinician [phone] Luis Burciaga Attending Clinician UnavailSUZY Malcolm Attending Clinician Unavailable Suzy Uriostegui MD Attending Clinician [phone] Effie Marquez Attending Clinician Unava ANTONIA Corbett Attending Clinician Unavailable Teresa PICKERING, Antonia Garzon Attending Clinician [phone] Ghanshyam Bragg Attending Clinician Tierney vilma Nurse, Osvaldo Evangelista Attending Clinician Unavaila Frederick Herrera MD Attending Clinician [phone] FREDERICK RICHARDSON Attending Clinician Unavailable AR RICHARDSON Attending Clinician Unavailable Ar Richardson MD Attending Clinician [phone] Kishor Bishop Attending Clinician Unavailable ELINA ROME Attending Clinician Unavailable Madhavi Roman PA-C Attending Clinician [phone] Dottie Chavez Attending Clinician UnavailNathalia Allen Attending Clinician [phone] Ny Khan MD Attending Clinician [phone] Olivier CIVIL CADD TECHNICIAN, Aneta Esparza Attending Clinician [phone] Unknown, Attending Attending Clinician Unavailab miah LOPEZ, ATTENDING Attending Clinician Unavailab Pearl Petersen Attending Clinician Unavailjas Noble RN, Tashia Rae Attending Clinician Unavailab miah Last CIVIL CADD TECHNICIAN, Lily Hummel Attending Clinician [phone] Lydia Bojorquez MD Attending Clinician [phone] Doctor Unassigned, [place] Attending Clinician U robbin HEREDIA, Liberty Attending Clinician + [phone] LIBERTY CAMP Attending Clinician Unavailable Wiliam WIRELESS SALES MANAGER, Antonia Attending Clinician + [phone] Dagoberto WIRELESS SALES MANAGER, Kassidy Cagle Attending Clinician [phone] Rajan PICKERING, Elina Pandey Attending Clinici an KASSIDY ARENAS Attending Clinician Unavailab REJI Bose Attending Clinician Unavailable Ivet PICKERING, Aiden Conde Attending Clinician [phone] SOSA ADAMES Attending Clinician Unavailable Zacarias PICKERING, Sosa Attending Clinician [phone] Santiago COLE, Sandra Joy Attending Clinician Unavaila Ashley Schafer DO Attending Clinician + [phone] Mike Heard MD Attending Clinician [phone] Shahnaz MIRELES, Sujata Attending Clinician SUZY URIOSTEGUI Admitting Clinician Unavailable [place] KHAN Admitting Clinician Unavailable Brittnee Ramirez Admitting Clinician UnavailElina Chavez Admitting Clinician Unavail able PHILL ROMAN Admitting Clinician UnavailPhill Garnett MD Admitting Clinician [phone] Luis Burciaga Admitting Clinician UnavailSuzy Malcolm MD Admitting Clinician [phone] Emily Hurtado Admitting Clinician UnavailANTONIA Samaniego Admitting Clinician Unavailable Effie Solitario Admitting Clinician Unaalondra ilisha Physician, No Primary or Family Admitting Clinic lizzeth Unavailable Dottie Chavez Admitting Clinician UnavailNy Frederick MD Admitting Clinician [phone] Pearl Chavez Admitting Clinician UnavailSOSA Bae Admitting Clinician Unavailable Payers Payer Name Policy Type Policy Number Effective Date Expirati on Date Source [facility] [id number] 2023 00:00:00 [facility] [id number] 00:00:00 [facility] [id number] 2023 00:00:00 Problems Condition Name Condition Details Condition Category Status Onset Date Resolution Date Last Treatment Date Treating Clinician Comments Source Acute appendicit is Acute appendicit is Disease Active 2022-07 0-15 00:00: 00 [facility] Anxiety Anxiety Disease Active [facility] Depression Depression Disease Active [facility] Allergies, Adverse Reactions, Alerts Allergy Name Allergy Type Status Severity Reaction(s) Onset Date Inactive Date Treating Clinician Comments Source MARCUS ACID- THROAT SWELLING DA Active SV 08-03 00:00: 00 [facility] No Known Allergie s DA Active U 11-23 00:00: 00 [facility] No Known Allergie s DA Active U 11-23 00:00: 00 [facility] MALIC ACID DA Active SV TONGUE SWELLING, THROAT CLOSING 12-24 00:00: 00 [facility] Malic Acid Drug Allergy Active Swelling 12-24 00:00: 00 [facility] MALIC ACID DRUG INGREDI Active High Swelling 12-24 00:00: 00 [facility] SOUR MOREAU DRUG INGREDI Active Anaphylaxis 30 00:00: 00 [facility] Sour Moreau Propensi ty to adverse reaction s Active Anaphylaxis 11-15 00:00: 00 Sour flavoring on all candy [facility] Social History Social Habit Start Date Stop Date Quantity Comments Source ASSERTION 2022-02-27 00:00:00 [facility] Sexual orientation U [facility] Alcohol intake 2023-05-03 00:00:00 2023-05-03 00:00:00 Ex-drinker (finding) [facility] Exposure to SARS-CoV-2 (event) 2022-10-07 00:00:00 2022-10-17 15:17:00 Not sure [facility] History of Social function 2022-02-25 00:00:2022-02-25 00:00:00 [facility] Tobacco use and exposure 2022-02-25 00:00:00 2022-02-25 00:00:00 Smokeless tobacco non-user [facility] Sex Assigned At 2002 00:00:00 2000 00:00:00 [facility] Smoking Status Start Date Stop Date Source Never smoked tobacco [facility] Medications Ordered Medication Name Filled Medication Name Start Date Stop Date Current Medication? Ordering Clinician Indication Dosage Frequency Signature (SIG) Comments Components Source ibuprofen (IBU) tablet 400 mg 2022-07 15:00: 00 Yes 400mg 400 mg, Oral, Q8H, First dose on 05/03/23 at 1000, Until Discontinu ed, Routine [facility] SERTraline 25 mg tablet 2022-07 12:24: 34 Yes 25mg Take 1 tablet by mouth in the morning. [facility] ketorolac (TORADOL) injection 30 mg 2022-07 04:00: 00 05-03 03:38 :00 No 30mg 30 mg, Slow IV Push, ONCE, 1 dose, On 05/02/23 at 2300, Routine [facility] ibuprofen 400 mg tablet 2022-07 00:00: 00 05-11 04:59 :00 No [id number] 400mg Take 1 tablet by mouth every 8 (eight) hours as needed for Pain (scale 4-6) for up to 7 days. [facility] traMADoL 50 mg tablet 2022-07 00:00: 00 05-11 04:59 :00 No [id number] 50mg Take 1 tablet by mouth every 6 (six) hours as needed for Pain (scale 7-10) for up to 7 days. Indication s: acute pain [facility] enoxaparin (LOVENOX) injection 40 mg 2022-07 22:00: 00 Yes 40mg 40 mg, Subcutaneo us, DAILY, First dose on 05/02/23 at 1700, Until Discontinu ed, Routine [facility] lactated ringers IV infusion 1,000 mL 2022-07 17:15: 00 Yes 1000mL at 100 mL/hr, 1,000 mL, IV Infusion, CONTINUOUS , Starting on Wed05/02/23 at 1215, Until Discontinu ed, Routine, PACU [facility] HYDROcodone -acetaminop hen (NORCO 5) 5-325 mg tablet 1 tablet 2022-07 17:15: 00 05-02 17:48 :00 No 1{tbl} 1 tablet, Oral, ONCE, 1 dose, On Wed05/02/23 at 1215, Routine, PACU [facility] FENTanyl PF (SUBLIMAZE (PF)) injection 25 mcg 2022-07 17:13: 49 05-02 18:23 :47 No 25ug 25 mcg, Slow IV Push, Q5MIN PRN, 4 doses, Starting on Wed05/02/23 at 1213, Until [place] 05/02/23 at 1323, Routine, Pain (scale 4-6), PACU [facility] HYDROcodone -acetaminop hen (NORCO 5) 5-325 mg tablet 1 tablet 2022-07 16:58: 20 Yes 1{tbl} 1 tablet, Oral, Q4HPRN, Starting on Wed05/02/23 at 1158, Until Discontinu ed, Routine, Pain (scale 4-6) [facility] sodium chloride 0.9 % irrigation solution 2022-07 16:49: 00 05-02 17:12 :46 No PRN, Starting on Wed05/02/23 at 1149, Until Wed05/02/23 at 1212, Intra-op [facility] bupivacaine (preserv free) (SENSORCAIN E MPF) 0.25 % (2.5 mg/mL) injection 2022-07 16:35: 00 05-02 17:12 :46 No PRN, Starting on Wed05/02/23 at 1135, Until Wed05/02/23 at 1212, Routine, Intra-op [facility] NaCl 0.9% (NS) IV infusion 1,000 mL 2022-07 09:30: 00 05-02 16:57 :40 No 1000mL at 125 mL/hr, IV Infusion, CONTINUOUS , Starting on Wed05/02/23 at 0430, Until 05/02/23 at 1157, Routine [facility] ondansetron (ZOFRAN (PF)) injection 4 mg 2022-07 09:23: 00 Yes 4mg 4 mg, Slow IV Push, Q4HPRN, Starting on 05/02/23 at 0423, Until Discontinu ed, Routine, Nausea and Vomiting (N/V) [facility] FENTanyl PF (SUBLIMAZE (PF)) injection 12.5 mcg 2022-07 09:22: 41 05-02 16:58 :38 No 12.5ug 12.5 mcg, Slow IV Push, Q4HPRN, Starting on 05/02/23 at 0422, Until 05/02/23 at 1158, Routine, Pain (scale 7-10) [facility] acetaminoph en (TYLENOL) tablet 650 mg 2022-07 09:22: 29 Yes 650mg 650 mg, Oral, Q6HPRN, Starting on 05/02/23 at 0422, Until Discontinu ed, Routine, Pain (scale 1-3) [facility] FLUTICASONE PROPIONATE 50 mcg/actuati on nasal spray 2020-07 00:00: 00 05-02 00:00 :00 No [id number] SPRAY 1 SPRAY INTO EACH NOSTRIL EVERY DAY [facility] EPINEPHrine 0.3 mg/0.3 mL injection 2019-07 00:00: 00 Yes [id number] INJECT 0.3 ML BY INTRAMUSCU LAR ROUTE ONCE NOW FOR 1 DOSE. [facility] Immunizations Ordered Immunization Name Filled Immunization Name Date Status Comments Source DTP 2023-05-02 11:24:00 Completed [facility] HIB 3 Dose Schedule 2023-05-02 11:24:00 Completed [facility] HEPATITIS A 2023-05-02 11:24:00 Completed [facility] Hep B, Adol or Pedi Dosage 2023-05-02 11:24:00 Completed [facility] MMR 2023-05-02 11:24:00 Completed [facility] Polio (IPV/OPV) 2023-05-02 11:24:00 Completed [facility] Meningococcal Polysaccharide (groups A, C, Y and W-135) conjugate vaccine (MCV4P) 2023-05-02 11:24:00 Completed [facility] Pneumococcal 7 Conjugate, PCV7 (Prevnar7) 2023-05-02 11:24:00 Completed [facility] DTP 2023-05-02 03:19:00 Completed [facility] HIB 3 Dose Schedule 2023-05-02 03:19:00 Completed [facility] HEPATITIS A 2023-05-02 03:19:00 Completed [facility] Hep B, Adol or Pedi Dosage 2023-05-02 03:19:00 Completed [facility] MMR 2023-05-02 03:19:00 Completed [facility] Polio (IPV/OPV) 2023-05-02 03:19:00 Completed [facility] Meningococcal Polysaccharide (groups A, C, Y and W-135) conjugate vaccine (MCV4P) 2023-05-02 03:19:00 Completed [facility] Pneumococcal 7 Conjugate, PCV7 (Prevnar7) 2023-05-02 03:19:00 Completed [facility] Meningococcal Polysaccharide (groups A, C, Y and W-135) conjugate vaccine (MCV4P) 2019-02-23 00:00:00 Completed [facility] Meningococcal Polysaccharide (groups A, C, Y and W-135) conjugate vaccine (MCV4P) 2019-02-23 00:00:00 Completed [facility] DTP 2005-01-21 00:00:00 Completed [facility] HIB 3 Dose Schedule 2005-01-21 00:00:00 Completed [facility] HEPATITIS A 2005-01-21 00:00:00 Completed [facility] Pneumococcal 7 Conjugate, PCV7 (Prevnar7) 2005-01-21 00:00:00 Completed [facility] DTP 2005-01-21 00:00:00 Completed [facility] HIB 3 Dose Schedule 2005-01-21 00:00:00 Completed [facility] HEPATITIS A 2005-01-21 00:00:00 Completed [facility] Pneumococcal 7 Conjugate, PCV7 (Prevnar7) 2005-01-21 00:00:00 Completed [facility] MMR 2003-12-25 00:00:00 Completed [facility] Polio (IPV/OPV) 2003-12-25 00:00:00 Completed [facility] Pneumococcal 7 Conjugate, PCV7 (Prevnar7) 2003-12-25 00:00:00 Completed [facility] MMR 2003-12-25 00:00:00 Completed [facility] Polio (IPV/OPV) 2003-12-25 00:00:00 Completed [facility] Pneumococcal 7 Conjugate, PCV7 (Prevnar7) 2003-12-25 00:00:00 Completed [facility] DTP 2003-06-19 00:00:00 Completed [facility] HIB 3 Dose Schedule 2003-06-19 00:00:00 Completed [facility] Hep B, Adol or Pedi Dosage 2003-06-19 00:00:00 Completed [facility] Polio (IPV/OPV) 2003-06-19 00:00:00 Completed [facility] DTP 2003-06-19 00:00:00 Completed [facility] HIB 3 Dose Schedule 2003-06-19 00:00:00 Completed [facility] Hep B, Adol or Pedi Dosage 2003-06-19 00:00:00 Completed [facility] Polio (IPV/OPV) 2003-06-19 00:00:00 Completed [facility] Hep B, Adol or Pedi Dosage 2002 00:00:00 Completed [facility] Hep B, Adol or Pedi Dosage 2002 00:00:00 Completed [facility] Vital Signs Vital Name Observation Time Observation Value Comments S ource Systolic blood pressure 2023-05-03 12:17:00 101 mm[Hg] [facility] Diastolic blood pressure 2023-05-03 12:17:00 59 mm[Hg] [facility] Heart rate 2023-05-03 12:17:00 68 /[facility] 2023-05-03 12:17:00 36.22 [facility] Respiratory rate 2023-05-03 12:17:00 18 /min [facility] Oxygen saturation in Arterial blood by Pulse oximetry 2023-05-03 12:17:00 96 /min [facility] Body weight 2023-05-03 08:19:00 70.126 kg [facility] BMI 2023-05-03 08:19:00 28.28 kg/m2 [facility] Body height 2023-05-02 08:25:00 157.5 cm [facility] Systolic blood pressure 2023-05-02 18:25:00 97 mm[Hg] [facility] Diastolic blood pressure 2023-05-02 18:25:00 60 mm[Hg] [facility] Heart rate 2023-05-02 18:25:00 59 /min [facility] Body temperature 2023-05-02 18:25:00 36.11 [facility] Respiratory rate 2023-05-02 18:25:00 18 /min [facility] Oxygen saturation in Arterial blood by Pulse oximetry 2023-05-02 18:25:00 100 /min [facility] Body height 2023-05-02 08:25:00 157.5 cm [facility] Body weight 2023-05-02 08:25:00 69.037 kg [facility] BMI 2023-05-02 08:25:00 28.28 kg/m2 [facility] Systolic blood pressure 2022-10-17 20:18:00 99 mm[Hg] [facility] Diastolic blood pressure 2022-10-17 20:18:00 63 mm[Hg] [facility] Body temperature 2022-10-17 20:18:00 36.78 [facility] Respiratory rate 2022-10-17 20:18:00 16 /min [facility] Heart rate 2022-10-17 19:56:00 92 /min [facility] Body height 2022-10-17 19:56:00 157.5 cm [facility] Body weight 2022-10-17 19:56:00 71.668 kg [facility] BMI 2022-10-17 19:56:00 28.90 kg/m2 [facility] Oxygen saturation in Arterial blood by Pulse oximetry 2022-10-17 19:56:00 99 /min [facility] Procedures Procedure Date / Time Performed Performing Clinician Source CBC WITH DIFF 2023-05-03 11:31:00 [facility] CBC WITH DIFF 2023-05-03 11:31:00 Celso [facility] LAPAROSCOPIC APPENDECTOMY 2023-05-02 15:50:00 Miles, [facility] LAPAROSCOPIC APPENDECTOMY 2023-05-02 15:50:00 Miles, [facility] POCT TEST 2023-05-02 15:31:00 Miles, [facility] POCT TEST 2023-05-02 15:31:00 Miles, [facility] MAGNESIUM 2023-05-02 10:15:00 Phill Roman [facility] HEPATIC FUNCTION PANEL (28005) (ALB,T.PRO,BILI T,BU/BC,ALT,AST,ALK PHOS) 2023-05-02 10:15:00 Phill Roman [facility] BASIC METABOLIC PANEL (NA, K, CL, CO2, GLUCOSE, BUN, CREATININE, CA) 2023-05-02 10:15:00 Phill Roman [facility] CBC WITH DIFF 2023-05-02 10:15:00 [facility] 2023-05-02 10:15:00 Phill Roman [facility] HEPATIC FUNCTION PANEL (10452) (ALB,T.PRO,BILI T,BU/BC,ALT,AST,ALK PHOS) 2023-05-02 10:15:00 Phill Roman [facility] BASIC METABOLIC PANEL (NA, K, CL, CO2, GLUCOSE, BUN, CREATININE, CA) 2023-05-02 10:15:00 Phill Roman [facility] CBC WITH DIFF 2023-05-02 10:15:00 Phill Roman [facility] [id number] 2022-10-31 00:00:00 MAXBA [facility] [id number] 2022-10-30 00:00:00 MAXBA [facility] [id number] 2021-03-26 00:00:00 MAXBA [facility] [id number] 2021-03-26 00:00:00 MAXBA [facility] Encounters Start Date/Time End Date/Time Encounter Type Admission Type Attending Clinicians Care Facility Care Department Encounter ID Source 2022-10-17 17:56:29 Outpatient X [facility] [id number] [facility] 2021-05-19 04:10:53 Outpatient X [facility] [id number] [facility] 2021-05-19 04:10:48 Emergency [facility] [id number] [facility] 2021-05-18 12:59:52 Emergency [facility] [id number] [facility] 2021-05-18 03:01:47 Emergency [facility] [id number] [facility] 2020-11-23 00:57:29 Inpatient Brittnee Ramirez [facility] [id number] [facility] 2020-10-05 01:43:54 Inpatient [facility]L [facility] [id number] [facility] 2020-08-22 20:18:00 Inpatient [facility] KAELA [id number] [facility] 2020-02-15 22:49:00 Inpatient [facility] KAELA [id number] [facility] 2023-08-23 13:00:00 2023-08-23 13:00:00 Outpatient MADHAVI MCNAIR [facility] [id number] [facility] 2023-05-24 13:00:00 2023-05-24 13:00:00 Outpatient MERT HOUSE [place] [facility] [id number] [facility] 2023-05-02 03:19:00 2023-05-03 12:20:00 Outpatient U PHILL ROMAN [facility] OLAYINKA [id number] [facility] 2023-05-02 03:19:00 2023-05-03 12:20:00 Hospital Encounter Phill Roman [facility] [id number] 350.1.13.10 4.2.7.2.686 [id number] [facility] 2023-05-02 11:24:00 2023-05-02 13:33:00 Surgery Mert Miles [facility] [place] [id number] 350.1.13.10 4.2.7.2.686 [id number] [facility] 2022-10-30 19:17:00 2022-11-02 18:53:00 Inpatient EL Patrica, Luis [facility]ACL OBPP [id number] [facility] 2022-10-17 14:59:00 2022-10-17 17:00:00 Outpatient X SUZY URIOSTEGUI [facility] [id number] [facility] 2022-10-17 14:59:00 2022-10-17 17:00:00 Emergency Saturninoemily Suzy [facility] [id number] 350.1.13.10 [id number] [id number] [facility] 2022-09-26 22:39:00 2022-09-27 17:00:00 Inpatient EM Maximashleigh, Luis [facility]ACL OBANTE [id number] [facility] 2022-09-07 23:59:00 2022-09-14 10:45:00 Inpatient EM Maximashleigh, Luis [facility] OBANTE [id number] [facility] 2022-08-03 15:04:00 2022-08-03 16:59:00 Emergency EM Effie Ramsay [facility] OLGA [id number] [facility] 2022-03-20 14:10:00 2022-03-20 14:10:00 Outpatient ANTONIA CAPPS [facility] [id number] [facility] 2022-03-20 00:00:00 2022-03-20 00:00:00 Telephone Antonia [facility] 1.114 350.1.13.10 4.2.7.2.686 [id number] [facility] 2022-03-16 14:10:00 2022-03-16 14:10:00 Outpatient ANTONIA CAPPS [facility] [id number] [facility] 2022-03-13 13:30:00 2022-03-13 13:30:00 Outpatient ANTONIA CAPPS [facility] [id number] [facility] 2022-03-13 11:10:00 2022-03-13 11:10:00 Outpatient Dao PIKE [facility] [id number] [facility] 2022-03-06 15:06:00 2022-03-06 16:12:00 Emergency EM Darshancandynatanael Ghanshyam HC[facility]L AERS [id number] [facility] 2022-03-04 00:00:00 2022-03-04 00:00:00 Telephone Antonia Pike [facility] 1..114 350.1.13.10 4.2.7.2.686 [id number] [facility] 2022-03-03 00:00:00 2022-03-03 00:00:00 Telephone Antonia Pike [facility] 1..114 350.1.13.10 4.2.7.2.686 [id number] [facility] 2022-03-02 17:43:24 2022-03-02 23:59:00 Outpatient R ANTONIA PIKE [facility] [id number] [facility] 2022-03-02 17:43:24 2022-03-02 23:59:00 Outpatient R ANTONIA PIKE [facility] [id number] [facility] 2022-03-02 17:30:00 2022-03-02 23:59:00 Hospital Encounter Antonia Pike [facility] 1.0.114 350.1.13.10 4.2.7.2.686 [id number] [facility] 2022-02-26 14:50:00 2022-02-26 15:10:00 Nurse Visit Nurse, Frederick Miller [facility] 1.0.114 350.1.13.10 4.2.7.2.686 [id number] [facility] 2022-02-26 14:50:00 2022-02-26 14:50:00 Outpatient FREDERICK CORRAL [facility] [id number] [facility] 2022-02-25 14:45:00 2022-02-25 23:59:00 Hospital Encounter Antonia Pike [facility] 1.0.114 350.1.13.10 4.2.7.2.686 [id number] [facility] 2022-02-25 14:45:00 2022-02-25 23:59:00 Outpatient R PIKEANTONIA ASHER [facility] [id number] [facility] 2022-02-25 13:50:00 2022-02-25 15:29:57 Outpatient R ANTONIA PIKE [facility] [id number] [facility] 2022-02-25 13:50:00 2022-02-25 15:29:57 Office Visit Antonia Pike [facility] 1.114 350.1.13.10 4.2.7.2.686 [id number] [facility] 2022-02-23 15:50:00 2022-02-23 15:50:00 Outpatient R ANTONIA PIKE [facility] [id number] [facility] 2022-02-12 21:31:00 2022-02-12 22:34:00 Emergency X [facility] E[facility] [id number] [facility] 2022-02-12 21:31:00 2022-02-12 22:34:00 Emergency De[facility] 1..114 350.1.13.10 4.2.7.2.686 [id number] [facility] 2021-11-11 00:16:00 2021-11-11 00:55:00 [facility] [id number] [facility] 2021-11-04 15:30:00 2021-11-04 15:30:00 Outpatient R ELINA ROME [facility] [id number] [facility] 2021-08-08 22:06:00 2021-08-08 22:30:00 Emergency EM Ghanshyam Bragg [facility] AERS [id number] [facility] 2021-06-13 00:00:00 2021-06-13 00:00:00 Refill Madhavi Roman [facility] 1.114 350.1.13.10 4.2.7.2.686 [id number] [facility] [facility]12 13:41:54 2021-05-12 14:13:40 Office Visit [facility] 1.114 350.1.13.10 4.2.7.2.686 [id number] [facility] 2021-05-12 13:30:00 2021-05-12 13:30:00 Outpatient MADHAVI MCNAIR [facility] [id number] Cynthia joy [facility] 2021-03-25 14:56:00 2021-03-28 15:32:00 Inpatient EL Luis Burciaga [facility] OBPP [id number] [facility] 2021-03-12 21:07:00 2021-03-13 01:05:00 Emergency EM Effie Solitario [facility] [id number] [facility] 2021-03-01 05:33:00 2021-03-01 09:00:00 Emergency EM Luis Burciaga [facility] [id number] [facility] 2021-02-17 15:17:00 2021-02-17 16:47:00 Emergency EM Effie Solitario [facility] [place] [id number] [facility] 2021-02-12 19:14:00 2021-02-12 22:29:00 Emergency EM Effie Solitario [facility] [place] [id number] [facility] 2021-01-29 02:30:00 2021-01-29 03:50:00 Emergency EM Dottie Chavez [facility] [id number] [facility] 2021-01-13 01:18:00 2021-01-13 02:30:00 Emergency CacNabil de la cruzroseanne Khan [facility] 1.2.840.114 350.1.13.10 4.2.7.2.686 [id number] [facility] 2021-01-13 01:18:00 2021-01-13 02:30:00 Emergency CacNathalia de la cruz Tsering Khan [facility] 1.2.840.114 350.1.13.10 4.2.7.2.686 [id number] 2021-01-11 17:51:24 2021-01-11 18:25:45 Urgent Care Aneta Aguayo Unknown, Attending [facility] 1..114 350.1.13.10 4.2.7.2.686 [id number] 370 [id number] [facility] 2021-01-11 17:51:24 2021-01-11 18:25:45 Urgent Care Aneta Aguayo [facility] 1.114 350.1.13.10 4.2.7.2.686 [id number] 2021-01-11 18:00:00 2021-01-11 18:00:00 Outpatient R UNKNOWN, ATTENDING [facility] [id number] [facility] 2020-12-25 15:08:00 2020-12-25 18:26:00 Emergency [facility] [id number] [facility] 2020-11-23 00:02:00 2020-11-23 02:58:00 Emergency EM [facility] [id number] [facility] 2020-11-01 00:00:00 2020-11-01 00:00:00 Letter (Out) [facility] 1.114 350.1.13.10 4.2.7.2.686 [id number] 019 [id number] [facility] 2020-11-01 00:00:00 2020-11-01 00:00:00 [facility] 1..114 350.1.13.10 4.2.7.2.686 [id number] 2020-10-30 22:11:00 2020-10-31 00:46:00 Emergency Lily Last [facility] 1.2.840.114 350.1.13.10 4.2.7.2.686 [id number] 084 [id number] [facility] 2020-10-30 22:11:00 2020-10-31 00:46:00 Emergency Lily Last [facility] 1.2.840.114 350.1.13.10 4.2.7.2.686 [id number] 084 [id number] 2020-10-26 18:33:25 2020-10-26 19:03:11 Urgent Care Aneta Aguayo, Attending [facility] 1.2.840.114 350.1.13.10 4.2.7.2.686 [id number] [facility] 2020-10-26 18:33:25 2020-10-26 19:03:11 Urgent Care Aneta Aguayo [facility] 1.2.840.114 350.1.13.10 4.2.7.2.686 [id number] 2020-10-26 19:00:00 2020-10-26 19:00:00 Outpatient R UNKNOWN, ATTENDING [facility] [id number] [facility] 2020-09-18 23:47:00 2020-09-19 01:47:00 Emergency Lydia Bojorquez [facility] 1.2840.114 350.1.13.10 4.2.7.2.686 [id number] 084 [id number] [facility] 2020-09-18 23:47:00 2020-09-19 01:47:00 Emergency Lydia Bojorquez [facility] 1.2.840.114 350.1.13.10 4.2.7.2.686 [id number] 084 [id number] 2020-09-18 00:00:00 2020-09-18 00:00:00 Orders Only Doctor Unassigned, [place] [facility] 1.2.840.114 350.1.13.10 4.2.7.2.686 [id number] [id number] [facility] 2020-09-18 00:00:00 2020-09-18 00:00:00 Orders Only Doctor Unassigned, [place] [facility] 1.2.840.114 350.1.13.10 4.2.7.2.686 [id number] [id number] 2020-08-22 15:52:31 2020-08-22 16:12:31 Office Visit [facility] 1.2.840.114 350.1.13.10 4.2.7.2.686 [id number] [facility] 2020-08-22 15:52:31 2020-08-22 16:12:31 Office Visit [facility]havi [facility] 1.2.840.114 350.1.13.10 4.2.7.2.686 [id number] 2020-08-22 16:00:00 2020-08-22 16:00:00 Outpatient MADHAVI MCNAIR [facility] [id number] [facility] 2020-08-22 13:40:00 2020-08-22 13:40:00 Outpatient MADHAVI MCNAIR [facility] [id number] [facility] 2020-08-13 00:00:00 2020-08-13 00:00:00 Telephone [facility]ty [facility] 1.2.840.114 350.1.13.10 4.2.7.2.686 [id number] [facility] 2020-08-09 00:00:00 2020-08-09 00:00:00 Telephone [place] [facility] 1.2.840.114 350.1.13.10 4.2.7.2.686 [id number] [facility] 2020-08-09 00:00:00 2020-08-09 00:00:00 Telephone [place] [facility] 1..114 350.1.13.10 4.2.7.2.686 [id number] [facility] 2020-08-08 14:46:51 2020-08-08 16:51:17 Office Visit [place] [facility] 1..114 350.1.13.10 4.2.7.2.686 [id number] [facility] 2020-08-08 15:00:00 2020-08-08 15:00:00 Outpatient R [place] [facility] [id number] [facility] 2020-07-03 00:00:00 2020-07-03 00:00:00 Orders Only Doctor Unassigned, [place] [facility] 1..114 350.1.13.10 4.2.7.2.686 [id number] [id number] [facility] 2020-06-17 13:35:31 2020-06-17 14:15:17 Office Visit Antonia Swain [facility] 1.114 350.1.13.10 4.2.7.2.686 [id number] [facility] 2020-06-17 13:40:00 2020-06-17 13:40:00 Outpatient ELINA FORMAN [facility] [id number] [facility] 2020-05-18 00:00:00 2020-05-18 00:00:00 Kassidy Morris [facility] 1.114 350.1.13.10 4.2.7.2.686 [id number] 225 [id number] [facility] 2020-05-14 00:00:00 2020-05-14 00:00:00 Telephone Elina [facility] 1..114 350.1.13.10 4.2.7.2.686 [id number] [facility] 2020-05-06 00:00:00 2020-05-06 00:00:00 Telephone Elina [facility] 1..114 350.1.13.10 4.2.7.2.686 [id number] 225 [id number] [facility] 2020-04-26 15:36:43 2020-04-26 15:56:43 Office Visit Kassidy Arenas [facility] 1.114 350.1.13.10 4.2.7.2.686 [id number] [facility] 2020-04-26 15:40:00 2020-04-26 15:40:00 Outpatient KASSIDY BOONE [facility] [id number] [facility] 2020-04-15 00:00:00 2020-04-15 00:00:00 [facility] 1.114 350.1.13.10 4.2.7.2.686 [id number] [facility] 2020-01-03 14:40:00 2020-01-03 14:40:00 Outpatient REJI EVANS [facility] [id number] [facility] 2019-10-27 00:00:00 2019-10-27 00:00:00 Telephone Aiden [facility] 1.114 350.1.13.10 4.2.7.2.686 [id number] [facility] 2019-10-18 23:49:28 2019-10-19 02:20:00 Emergency X SOSA ADAMES [facility] ERT [id number] [facility] 2019-10-18 23:49:28 2019-10-19 02:20:00 Emergency Sosa Adames [facility] 1.2.840.114 350.1.13.10 4.2.7.2.686 [id number] 014 [id number] [facility] 2019-10-18 00:00:00 2019-10-18 00:00:00 Nurse Triage Sandra Henderson [facility] 1.2.840.114 350.1.13.10 4.2.7.2.686 [id number] 019 [id number] [facility] 2019-10-09 00:00:00 2019-10-09 00:00:00 Telephone Aiden [facility] 1.2.840.114 350.1.13.10 4.2.7.2.686 [id number] 225 [id number] [facility] 2019-09-21 13:27:07 2019-09-21 17:09:32 Office Visit [place] [facility] 1.2840.114 350.1.13.10 4.2.7.2.686 [id number] 225 [id number] [facility] 2019-09-21 13:40:00 2019-09-21 13:40:00 Outpatient R [place] [facility] [id number] [facility] 2019-08-30 15:01:37 2019-08-30 15:11:37 Office Visit Antonia Pike [facility] 1.2.840.114 350.1.13.10 4.2.7.2.686 [id number] 225 [id number] [facility] 2019-08-22 15:33:37 2019-08-22 15:43:37 Office Visit Aiden [facility] 1.2.840.114 350.1.13.10 4.2.7.2.686 [id number] [facility] 2019-08-21 09:14:31 2019-08-21 10:35:00 Emergency Ashley Avendano [facility] 1.2.840.114 350.1.13.10 4.2.7.2.686 [id number] [id number] [facility] 2019-08-10 11:01:47 2019-08-10 11:21:47 Nurse Visit NurseOsvaldo Maria P Alvin [facility] 1.2.840.114 350.1.13.10 4.2.7.2.686 [id number] [facility] 2019-08-09 09:22:22 2019-08-09 12:41:52 Office Visit Antonia [facility] 1.2.840.114 350.1.13.10 4.2.7.2.686 [id number] [facility] 2019-08-09 00:00:00 2019-08-09 00:00:00 Orders Only Antonia Pike [facility] 1.2.840.114 350.1.13.10 4.2.7.2.686 [id number] [facility] 2019-07-28 00:00:00 2019-07-28 00:00:00 Orders Only Doctor Unassigned, [place] [facility] 1.2.840.114 350.1.13.10 4.2.7.2.686 [id number] [facility] 2019-03-30 12:55:51 2019-03-30 13:15:51 Office Visit Kassidy Arenas [facility] 1.2.840.114 350.1.13.10 4.2.7.2.686 [id number] [facility] 2019-03-29 00:00:00 2019-03-29 00:00:00 Telephone Rajan Elina Torresanuel [facility] 1.2.840.114 350.1.13.10 4.2.7.2.686 [id number] [facility] 2019-03-27 09:41:28 2019-03-27 09:51:28 Office Visit Ivet Aiden Elton [facility] 1.2.840.114 350.1.13.10 4.2.7.2.686 [id number] [facility] 2019-03-22 15:41:22 2019-03-22 23:59:00 Hospital Encounter IvetAiden Elton [facility] 1.2.840.114 350.1.13.10 4.2.7.2.686 [id number] [facility] 2019-03-21 15:31:39 2019-03-22 09:26:38 Office Visit Mike Heard Aiden Elton [facility] 1.2.840.114 350.1.13.10 4.2.7.2.686 [id number] [facility] 2019-03-08 09:03:07 2019-03-08 09:13:07 Office Visit Ivet Aiden Elton [facility] 1.2.840.114 350.1.13.10 4.2.7.2.686 [id number] [facility] 2019-03-03 10:38:58 2019-03-03 11:09:50 Office Visit IvetAiden Elton [facility] 1.2.840.114 350.1.13.10 4.2.7.2.686 [id number] [facility] 2019-02-10 15:44:39 2019-02-10 23:59:00 Hospital Encounter Vonnie johnson [facility] 1.2.840.114 350.1.13.10 4.2.7.2.686 [id number] [facility] 2019-02-10 08:00:00 2019-02-10 15:43:00 Hospital Encounter Vonnie johnson [facility] 1.2.840.114 350.1.13.10 4.2.7.2.686 [id number] [facility] Results Test Description Test Time Test Comments Results Result Co mments Source [facility] WITH [id number] 11:43:20* Test Item Value Reference Range Interpretation [...] 32.0 g/dL 31.6-35.1 RDW-SD (test code = 73818-1) 47.8 fL 39.0-49.9 RDW-CV (test code = 788-0) 14.8 % 12.0-15.5 PLT (test code = 777-3) 282 See_Comment [Automated messa ge] The system which generated this result transmitted reference range: 166 - 358 10*3/?L. The reference range was not used to interpret this result as normal/abnormal. MPV (test code = 52991-3) 10.6 fL 9.5-12.9 NRBC/100 WBC (test code = 0983481297) 0.0 See_Comment [Automated me ssage] The system which generated this result transmitted reference range: 0.0 - 10.0 /100 WBCs. The reference range was not used to interpret this result as normal/abnormal. NRBC x10^3 (test code = 8038273595) See_Comment [Automated messa ge] The system which generated this result transmitted reference range: 10*3/?L. The reference range was not used to interpret this result as normal/abnormal. GRAN MAT (NEUT) % (test code = 770-8) 51.7 % IMM GRAN % (test code = 2267347370) 0.20 % LYMPH % (test code = 736-9) 40.7 % MONO % (test code = 5905-5) 6.6 % EOS % (test code = 713-8) 0.4 % BASO % (test code = 706-2) 0.4 % GRAN MAT x10^3(ANC) (test code = 6240467703) 4.76 10*3/uL 1.88-7.09 IMM GRAN x10^3 (test code = 6256513888) 0.00-0.06 LYMPH x10^3 (test code = 731-0) 3.76 10*3/uL 1.32-3.29 H MONO x10^3 (test code = 742-7) 0.61 10*3/uL 0.33-0.92 EOS x10^3 (test code = 711-2) 0.04 10*3/uL 0.03-0.39 BASO x10^3 (test code = 704-7) 0.04 10*3/uL 0.01-0.07 Lab Interpretation (test code = 93056-0) Abnormal [facility] [id number] 15:31:00* Test Item Value Reference Range Interpretation Comme nts POCT PREG (test code = 1605) Negative On board controls acceptable with C Line (test code = 3574) Yes POCT PREG LOT # (test code = 3575) POCT PREG TEST DATE ( test code = 3576[id number] 15:31:00* Test Item Value Reference Range Interpretation Comme nts POCT PREG (test code = 1605) Negative On board controls acceptable with C Line (test code = 3574) Yes POCT PREG LOT # (test code = 3575) POCT PREG TEST DATE ( test code = 3576[facility] [id number] 11:21:25* Test Item Value Reference Range Interpretation Comme nts MAGNESIUM (test code = 6518987889) 2.2 mg/dL 1.7-2.4 Lab Interpretation (test cod e = 72920-0) Normal [facility] [id number] 11:21:25* Test Item Value Reference Range Interpretation Comme nts MAGNESIUM (test code = 2792440271) 2.2 mg/dL 1.7-2.4 Lab Interpretation (test cod e = 68649-5) Normal [facility] METABOLIC PANEL (NA, K, CL, CO2, GLUCOSE, BUN, CREATININE, CA)2023-05-02 11:21:05* Test Item Value Reference Range Interpretation Comme nts NA (test code = 0030527466) 138 mmol/L 135-145 K (test code = 8293260391) 3.8 mmol/L 3.5-5.0 CL (test code = 3891781051) 102 mmol/L 98-108 CO2 TOTAL (test code = 2771652789) 22 mmol/L 23-31 L AGAP (test code = 4638234019) 14 2-16 BUN (test code = 3815967614) 21 mg/dL 7-23 GLUCOSE (test code = 9600133126) 88 mg/dL 70-110 CREATININE (test code = 1542048700) 0.65 mg/dL 0.50-1.04 CALCIUM (test code = 4876996512) 9.3 mg/dL 8.6-10.6 eGFR (test code = 4584810052) 116.2 mL/min/1.73m2 RADHA (test code = RADHA) [...] imaging tests). Lab Interpretation (test code = 24615-6) [facility] (ALB,T.PRO,BILI T,BU/BC,ALT,AST,ALK PHOS)2023-05-02 11:21:05* Test Item Value Reference Range Interpretation Comme nts TOTAL BILI (test code = 9476078752) 0.3 mg/dL 0.1-1.1 BILI UNCON (test code = 5358377934) 0.2 mg/dL 0.1-1.1 BILI CONJ (test code = 2326413952) 0.0 mg/dL 0.0-0.3 T PROTEIN (test code = 1057818444) 7.6 g/dL 6.3-8.2 ALBUMIN (test code = 7803333481) 4.4 g/dL 3.5-5.0 ALK PHOS (test code = 8489245547) 72 U/L 34-122 ALTv (test code = 1742-6) 13 U/L 5-35 AST(SGOT) (test code = 1848128090) 17 U/L 13-40 Lab Interpretation (test cod e = 43512-0) Normal [facility] METABOLIC PANEL (NA, K, CL, CO2, GLUCOSE, BUN, CREATININE, CA)2023-05-02 11:21:05* Test Item Value Reference Range Interpretation Comme nts NA (test code = 4458173668) 138 mmol/L 135-145 K (test code = 5779454216) 3.8 mmol/L 3.5-5.0 CL (test code = 5832417054) 102 mmol/L 98-108 CO2 TOTAL (test code = 2583172495) 22 mmol/L 23-31 L AGAP (test code = 2522994986) 14 2-16 BUN (test code = 9434221456) 21 mg/dL 7-23 GLUCOSE (test code = 7033717673) 88 mg/dL 70-110 CREATININE (test code = 0515159855) 0.65 mg/dL 0.50-1.04 CALCIUM (test code = 9442344361) 9.3 mg/dL 8.6-10.6 eGFR (test code = 0502477021) 116.2 mL/min/1.73m2 RADHA (test code = RADHA) [...] imaging tests). Lab Interpretation (test code = 26291-9) [facility]normal [facility] (ALB,T.PRO,BILI T,BU/BC,ALT,AST,ALK PHOS)2023-05-02 11:21:05* Test Item Value Reference Range Interpretation Comme nts TOTAL BILI (test code = 3818216363) 0.3 mg/dL 0.1-1.1 BILI UNCON (test code = 0343138927) 0.2 mg/dL 0.1-1.1 BILI CONJ (test code = 7673464106) 0.0 mg/dL 0.0-0.3 T PROTEIN (test code = 5197686872) 7.6 g/dL 6.3-8.2 ALBUMIN (test code = 8227536184) 4.4 g/dL 3.5-5.0 ALK PHOS (test code = 3383105499) 72 U/L 34-122 ALTv (test code = 1742-6) 13 U/L 5-35 AST(SGOT) (test code = 0075119809) 17 U/L 13-40 Lab Interpretation (test cod e = 23537-5) Normal [facility] [id number] 10:46:23* Test Item Value Reference Range Interpretation Comme nts WBC (test code = 6690-2) 7.54 See_Comment [Automated [employer]] The system which generated this result transmitted reference range: 4.30 - 11.10 10*3/?L. The reference range was not used to interpret this result as normal/abnormal. RBC (test code = 789-8) 4.05 See_Comment [Automated [employer]] The system which generated this result transmitted [...] 32.3 g/dL 31.6-35.1 RDW-SD (test code = 26136-0) 46.6 fL 39.0-49.9 RDW-CV (test code = 788-0) 14.7 % 12.0-15.5 PLT (test code = 777-3) 283 See_Comment [Automated messa ge] The system which generated this result transmitted reference range: 166 - 358 10*3/?L. The reference range was not used to interpret this result as normal/abnormal. MPV (test code = 84572-4) 10.5 fL 9.5-12.9 NRBC/100 WBC (test code = 8889281708) 0.0 See_Comment [Automated [employer] ssage] The system which generated this result transmitted reference range: 0.0 - 10.0 /100 WBCs. The reference range was not used to interpret this result as normal/abnormal. NRBC x10^3 (test code = 0372084285) See_Comment [Automated messa ge] The system which generated this result transmitted reference range: 10*3/?L. The reference range was not used to interpret this result as normal/abnormal. GRAN MAT (NEUT) % (test code = 770-8) 40.7 % IMM GRAN % (test code = 7408511676) 0.10 % LYMPH % (test code = 736-9) 48.4 % MONO % (test code = 5905-5) 8.8 % EOS % (test code = 713-8) 1.3 % BASO % (test code = 706-2) 0.7 % GRAN MAT x10^3(ANC) (test code = 1426875323) 3.07 10*3/uL 1.88-7.09 IMM GRAN x10^3 (test code = 9827166234) 0.00-0.06 LYMPH x10^3 (test code = 731-0) 3.65 10*3/uL 1.32-3.29 H MONO x10^3 (test code = 742-7) 0.66 10*3/uL 0.33-0.92 EOS x10^3 (test code = 711-2) 0.10 10*3/uL 0.03-0.39 BASO x10^3 (test code = 704-7) 0.05 10*3/uL 0.01-0.07 Lab Interpretation (test code = 82051-5) Abnormal [facility] with [id number] 10:46:23* Test Item Value Reference Range Interpretation Comme nts WBC (test code = 6690-2) 7.54 See_Comment [Automated [employer] ge] The system which generated this result transmitted reference range: 4.30 - 11.10 10*3/?L. The reference range was not used to interpret this result as normal/abnormal. RBC (test code = 789-8) 4.05 See_Comment [Automated [employer] ge] The system which generated this result [...] 32.3 g/dL 31.6-35.1 RDW-SD (test code = 43350-8) 46.6 fL 39.0-49.9 RDW-CV (test code = 788-0) 14.7 % 12.0-15.5 PLT (test code = 777-3) 283 See_Comment [Automated [employer] ge] The system which generated this result transmitted reference range: 166 - 358 10*3/?L. The reference range was not used to interpret this result as normal/abnormal. MPV (test code = 86059-2) 10.5 fL 9.5-12.9 NRBC/100 WBC (test code = 0379707011) 0.0 See_Comment [Automated me ssage] The system which generated this result transmitted reference range: 0.0 - 10.0 /100 WBCs. The reference range was not used to interpret this result as normal/abnormal. NRBC x10^3 (test code = 3760161594) See_Comment [Automated messa ge] The system which generated this result transmitted reference range: 10*3/?L. The reference range was not used to interpret this result as normal/abnormal. GRAN MAT (NEUT) % (test code = 770-8) 40.7 % IMM GRAN % (test code = 4975272642) 0.10 % LYMPH % (test code = 736-9) 48.4 % MONO % (test code = 5905-5) 8.8 % EOS % (test code = 713-8) 1.3 % BASO % (test code = 706-2) 0.7 % GRAN MAT x10^3(ANC) (test code = 1338443633) 3.07 10*3/uL 1.88-7.09 IMM GRAN x10^3 (test code = 6101959813) 0.00-0.06 LYMPH x10^3 (test code = 731-0) 3.65 10*3/uL 1.32-3.29 H MONO x10^3 (test code = 742-7) 0.66 10*3/uL 0.33-0.92 EOS x10^3 (test code = 711-2) 0.10 10*3/uL 0.03-0.39 BASO x10^3 (test code = 704-7) 0.05 10*3/uL 0.01-0.07 Lab Interpretation (test code = 19233-2) [facility] Test Item Value Reference Range Interpretation Comme nts SURGICAL (test code = SR) R UN DATE: 11/03/22 [place] - LAB PAGE 1 RUN TIME: 1409 Specimen Inquiry RUN USER: INTERFACE P ATIENT: NILA ROGERS LOC: [facility] U #: [id number] AGE/SX: 21/F ROOM: [facility] RE10/30/22REG DR: Luis Burciaga MD : 02 BED: 1 DIS: 11/02/22 STATUS: DIS IN TLOC: SPEC #: [id number] RECD: 11/02/22 STATUS: GLENN REGreta #: [id number] SLOAN: 10/31/22- SUBM DR: Luis Burciaga MD ENTERED: 11/02/22 SP TYPE: SURGICAL OTHR DR: ORDERED: [id number], ANATOMIC SPEC PROCEDURES: [id number] (11/02/22) TISSUES: A. PLACENTA, THIRD TRIMESTER (28 + WEEKS) CLINICAL HISTORY SAME, DELIVERED FINAL DIAGNOSIS Placenta: Third trimester placenta with acute chorionitis, deciduitis; 713 g (expected trdk676 g); trivascular umbilical cord without significant inflammation.. [...] weighs 713 g. Technical component performed at [facility],[address] [place] [address], [place] [address] Unless gross only, the diagnosis is based [...] 11/03/22 1408 END OF REPORT CBC W/AUTO [id number] 07:54:00* Test Item Value Reference Range Interpretation [...] c ode = MDIFF) NO RAPID PLASMA [id number] 11:50:00* Test Item Value Reference Range Interpretation Comme nts RAPID PLASMA REAGIN (test co de = RPR) NONREACTIVE NONREACTIVE AG HEPATITIS B [id number] 11:50:00* Test Item Value Reference Range Interpretation Comme nts AG HEPATITIS B SURFACE (test code = HBSAG) NON REACTIVE INDEX NonReactive AB HIV 1 11:50:00* Test Item Value Reference Range Interpretation Comme nts AB HIV 1 2 (test code = TJC59IY) Nonreactive Nonreactive CBC W/AUTO [id number] 19:59:00* Test Item Value Reference Range Interpretation [...] c ode = MDIFF) NO AMNISURE (ROM) [id number] 18:12:00* Test Item Value Reference Range Interpretation Comme nts AMNISURE (ROM) TEST (test co de = AMNI) POSITIVE NEGATIVE A AMNISURE (ROM) [id number] 21:41:00* Test Item Value Reference Range Interpretation Comme nts AMNISURE (ROM) TEST (test co de = AMNI) NEGATIVE NEGATIVE [id number] 20:11:00* Test Item Value Reference Range Interpretation Comme nts FIBRONECTIN (test code = FFN) POSITIVE NEGATIVE A UA RFLX MICR CULT IF [id number] 20:11:00* Test Item Value Reference Range Interpretation [...] PainSpecimen Description: CLEAN CATCHDRUGS OF ABUSE SCREEN [id number] 20:10:00* Test Item Value Reference Range Interpretation [...] used for non-medical purposes. - [place] BIOPHYS [id number] 00:00:00 [facility] MADELINE COFFMANName: BI ROGERS : 2000 Sex: F Name: BI ROGERS [facility] [place] : 2000 Age/S: 21 / F [address] [place], [place] [address] Unit #: [id number] Loc: [place] [address] Phys: Zoila Gomez DO Acct: [id number] Dis Date: Status: REG ER PHONE #: [phone] Exam Date: 09/26/20222004 FAX #: [phone] Reason: decreased FM EXAMS: CPT CODE: [id number] US BIOPHYS PROF 16550 PROCEDURE INFORMATION: Exam: US Biophysical Profile Without Non-Stress Test Exam date and time: 09/26/2022 7:49 PM Age: 21 years old Clinical indication: Pain indication: Abdominal pain; ; Additional info: Decreased fm TECHNIQUE: Imaging protocol: US biophysical profile without non-stress testing. COMPARISON: US FET BIO PH MS W/O NST 09/07/2022 11:03 PM A limited [...] PAGE 1 Signed Report- US PREG AFTER [id number] 00:00:00 [facility] 2000 Sex: F Name: BI ROGERS [facility] : 2000 Age/S: 21 / F [address] [place] [address] Unit #: [id number] Loc: [place] [address] Phys: Zoila Gomez DO Acct: [id number] Dis Date: Status: REG ER PHONE #: [phone] Exam Date: 09/26/20222004 FAX #: [phone] Reason: PTL EXAMS: CPT CODE: [id number] US PREG AFTER TRI 27787 PROCEDURE INFORMATION: Exam: US After First Trimester, Transabdominal Exam date and time: 09/26/2022 7:49 PM Age: 21 years old Clinical indication: complicated by abdominal or pelvic pain; Periumbilical; Third trimester (=28 weeks 0 days); Gestational age or lmp: 32w; ; Additional info: Ptl TECHNIQUE: Imaging protocol: Real-time transabd ominal obstetrical ultrasound of the maternal pelvis and a second or third trimester withimage documentation. COMPARISON: US LTD 09/13/2022 8:38 AM [...] PAGE 1 Signed Report (CONTINUED) Name: BI ROGERS [facility] : 2000 Age/S: 21 / F [address] [place] [address] Unit #: [id number] Loc: [place], [place] [address]Hfei: Zoila Gomez DO Acct: [id number] Dis Date: Status: REG ER PHONE #: [phone] Exam Date: 09/26/20222004 FAX #: [phone] Reason: PTL EXAMS: CPT CODE: [id number] US PREG AFTER 1ST TRI 74702 (Continued) movement: 2. breathin Amniotic fluid: 2 Total score 8/8 IMPRESSION: 1. Single viable intrauterine gestation in cephalic presentation. 2. Normal growth concordant with dates. 3. Normal biophysical profile. at 2117 Reported and signed by: Jeromy Wolfe M.D. CC: Zoila Gomez DO Technologist: Josefina Fitch Trnvab Date/Time: 09/26/2022 (2116) [email or web address] Orig Print D/T: S: 09/26/2022 (2116) Probe: PAGE 2 Signed ReportAMNISURE (ROM) [id number] 14:39:00* Test Item Value Reference Range Interpretation Comme nts AMNISURE (ROM) TEST (test co de = AMNI) NEGATIVE NEGATIVE CHLAMYDIA GC DNA BY [id number] 13:07:00* Test Item Value Reference Range Interpretation Comme nts C. TRACHOMATIS DNA BY PCR (test code = CHLAMTDNA) Negative Negative N. GONORRHOEAE DNA BY PCR (test code = NGONORDNA) Negative Negative Performed At: [facility] [address] [id number] Marc Rosales MD Ph:[phone] UA RFLX MICR CULT IF [id number] 21:16:00* Test Item Value Reference Range Interpretation [...] NEGATIVE UA PH DIPSTICK (test code = SHAIAN) [...] culture: Suprapubic PainSpecimen Description: CLEAN CATCHRAPID PLASMA [id number] 11:04:00* Test Item Value Reference Range Interpretation Comme nts RAPID PLASMA REAGIN (test co de = RPR) NONREACTIVE NONREACTIVE AG HEPATITIS B [id number] 11:04:00* Test Item Value Reference Range Interpretation Comme nts AG HEPATITIS B SURFACE (test code = HBSAG) NON REACTIVE INDEX NonReactive AB HIV 1 11:04:00* Test Item Value Reference Range Interpretation Comme nts AB HIV 1 2 (test code = WHD96TC) Nonreactive Nonreactive [id number] 08:05:00* Test Item Value Reference Range Interpretation Comme nts MAGNESIUM (test code = MAG) 4.22 mg/dL 1.80-2.40 HH CBC W/AUTO [id number] 00:08:00* Test Item Value Reference Range Interpretation [...] MDIFF) NO - US FET BIO PH MS W/O [id number] 00:00:00 [facility] 2000 Sex: F Name: NILA ROGERS [facility] : 2000 Age/S: 21 / F [address] [place] [address] Unit #:[id number] Loc: [place] [address] Phys: Juany Carrillo MD Acct: [id number] Dis Date: Status: ADM IN PHONE #: [phone] Exam Date: 09/07/20222315 FAX #: [phone] Reason: IUP@29 wks; Leaking fluid; ROM plus positive EXAMS: CPT CODE: [id number] US FET BIO PH MS W/O NST 69355 PROCEDURE INFORMATION: Exam: US , Limited Exam [...] Biophysical Profile Without Non-Stress Test Exam date andtime: 09/07/2022 11:03 PM Age: 21 years old Clinical indication: Other: Rom; Lmp or gestational age(in weeks): 29; Antepartum complications; Premature rupture of membranes; ; Additional info: Iup@29 wks; Leaking fluid; Rom plus positive TECHNIQUE: Imaging protocol: US biophysical profile without non-stress testing. COMPARISON: US BIOPHYS PROF 03/12/2021 11:26 PM PAGE 1 Signed Report(CONTINUED) Name: NILA ROGERS [facility] : 2000 Age/S: 21 / F [address] [place] [address] Unit #: [id number] Loc: [place] [address] Phys: Juany Carrillo MD Acct: [id number] Dis Date: Status: ADM IN PHONE #: [phone] Exam Date: 09/07/20222315 FAX #: [phone] Reason: IUP@29wks; Leaking fluid; ROM plus positive EXAMS: CPT CODE: [id number] US FET BIO PH MS W/O NST 17753 (Continued) A limited transabdominal obstetrical ultrasound was performed for biophysical profiledetermination. The ultrasound reveals the presence of a single intrauterine in cephalic position. cardiac activity is detected with a heart rate of 152 bpm. The placenta is anteriorlypositioned and demonstrates grade 1 echotexture. There is [...] (0002) Probe: PAGE 2 Signed Report- US [id number] 00:00:00 [facility] : 2000 Sex: F Name: NILA ROGERS [facility] [place] : 2000 Age/S: 21 / F [address] [place] [address] Blvd Unit #: [id number] Loc: [place] [address] Phys: Juany Carrillo MD Acct: [id number] Dis Date: Status: ADMIN PHONE #: [phone] Exam Date: 09/07/20225 FAX #: [phone] Reason: see US FET BIO PH MS W/O NST EXAMS: CPT CODE: [id number] US LTD 35619 PROCEDURE INFORMATION: Exam: US , Limited Exam date and time: 09/07/2022 11:03 PM Age: 21 years old Clinical indication: Other: Rom; Lmp or gestational age (in weeks): 29; Antepartum complications; Premature rupture of membranes; ; Additional info: Iup@29 wks; Leaking fluid; Rom plus positive TECHNIQUE: Imaging protocol: Real-time ultrasound of the maternal uterus with image documentation. Exam focused on theclinical indication. COMPARISON: US BIOPHYS PROF 03/12/2021 11:26 PM A limited transabdominalobstetrical ultrasound was performed for biophysical profile determination. [...] 11:26 PM PAGE 1 Signed Report (CONTINUED) Name:NILA ROGERS [facility] : 2000 Age/S: 21 / F [address] [place] [address] Unit #: [id number] Loc: [place] [address] Phys: Juany Carrillo MD Acct: [id number] Dis Date: Status: ADM IN PHONE #: [phone] Exam Date: 09/07/20225 FAX #: [phone] Reason: see US FET BIO PH MS W/ONST EXAMS: CPT CODE: [id number] US LTD 76901 (Continued) A limited transabdominal obstetrical ultrasound was performed for biophysical profile determination. The ultrasound reveals thepresence of a single intrauterine in cephalic position. [...] criteria for breathing movement, gross body movement, fetaltone and amniotic fluid volume giving a biophysical profile score of 8/8. The average umbilical artery S/D ratio was 3.4. IMPRESSION: 1. Single living intrauterine in cephalic position. 2. biophysical profile score of 8/8. SL: 131. at 0002 Reported and signed by: Malcolm Wilson M.D. CC: Juany Carrillo MD Technologist: Victoria Tripathi RDMS(AB)(OB) Trnscb Date/Time: 09/08/2022 (1) [email or web address] OrigPrint D/T: S: 09/08/2022 (0002) Probe: PAGE 2 Signed ReportAMNISURE (ROM) [id number] 22:26:00* Test Item Value Reference Range Interpretation Comme nts AMNISURE (ROM) TEST (test co de = AMNI) POSITIVE NEGATIVE A UA RFLX MICR CULT IF [id number] 22:12:00* Test Item Value Reference Range Interpretation [...] for culture: Suprapubic PainSpecimen Description: CLEAN CATCHFETAL [id number] 16:47:00* Test Item Value Reference Range Interpretation Comme nts FIBRONECTIN (test code = FFN) NEGATIVE NEGATIVE URINALYSIS [id number] 16:34:00* Test Item Value Reference Range Interpretation [...] SEEN - XR ANKLE 3 + V [id number] 00:00:00 [facility] : 2000 Sex: FFAX: Emily Mckoy MD [phone] [place]: [place] St: PRE FAX: Romeo Bragg Name: MARIAMNILA FSED : 2000 Age/S: 21/F [address] [facility] Unit #: [id number] Loc: [place] [address] Phys: Ghanshyam Bragg MD Acct: [id number] Dis Date: Status: PRE ER PHONE #: Exam Date: 03/06/2022 1600 FAX #: Reason: R ANKLE PAIN AFTER FALL EXAMS: CPT CODE: [id number] XR ANKLE 3 + V RT [id number] INFORMATION: Exam: XR Right Ankle Exam date [...] Emeka Pickering M.D. CC: Emily Hurtado MD; Aggie Bragg MD Technologist: Katerina Rosas RT(R)(CT) Trnscrd Date/Time/By: 03/06/2022 (5013) : By: KaneSBL Orig Print D/T: S: 03/06/2022 (4191) PAGE 1 Signed Report- XR FOOT 3 + V [id number] 00:00:00 [facility] : 2000 Sex: F FAX: Emily Mckoy MD [phone] [place]: [place] St: PRE FAX: Romeo Bragg Name: NILA ROGERS FS[facility] : 2000 Age/S: 21/F [address] [facility] Unit #: [id number] Loc: [place] [address] Phys:Ghanshyam Bargg MD Acct: [id number] Dis Date: Status: PRE ER PHONE #: Exam Date: 03/06/2022 1553 FAX #: Reason: r foot injury EXAMS: CPT CODE: [id number] XR FOOT 3 + V RT 46867 PROCEDURE INFORMATION: Exam: XR Right Foot Exam [...] assessment. IMPRESSION: No fractures or dislocation at 3484 Reported and signed by: Emeka Pickering M.D. CC: Emily Hurtado MD; Ghanshyam Bragg MD Technologist: RT Valerie(R)(CT) Trnscrd Date/Time/By: 03/06/2022 (4561) : By: Kristian Orig Print D/T: S: 03/06/2022 (0655) PAGE 1 Signed ReportURINE HCG TRIAGE (ER ONLY)2021-11-11 08:40:00* Test Item Value Reference Range Interpretation Comme nts URINE HCG TRIAGE (ER ONLY) ( test code = HCGTRIAGE) NEGATIVE Negative Urine Test Result: NEGATIVEAre internal controls (presence of a control line & clear background) OK? YLot # of HCG Test Kit: [id number] Date of Kit: 02/15/23Test Performed by:Carlo Mancillaomed on: 11/11/21COMMENTS: NEGATIVEUA DIPSTICK [id number] 00:46:00* Test Item Value Reference Range Interpretation Comme nts UA GLUCOSE DIPSTIC POC (test code = GLUUP) NEGATIVE NEGATIVE UA BILIRUBIN DIPSTICK (test code = BILU) NEGATIVE NEGATIVE UA KETONE DIPSTICK POC (test code = KETUP) NEGATIVE NEGATIVE UA SPECIFIC GRAVITY (test code = SGU) 1.010 1.005-1.030 N UA BLOOD DIPSTIC POC (test code = BLUP) NEGATIVE NEGATIVE Performed by certified baling machine operator at [facility] UA PH DIPSTIC POC (test code = PHUP) 7 5.0-7.0 N UA PROTEIN DIPSTICK POC (test code = DPROUP) NEGATIVE NEGATIVE UA UROBILINIOGEN QUAL (test code = UROQL) NORMAL 0.2-1.0 UA NITRITE DIPSTICK POC (test code = NITUP) NEGATIVE Negative UA LEUKOCYTE ESTERASE W REFLEX (test code = LEUUR) Negative NEGATIVE SURGICAL PATH [id number] 13:13:00* Test Item Value Reference Range Interpretation Comme nts SURGICAL PATH SPECIMENS (test code = S) RUN DATE: 03/28/21 [facility] - LAB PAGE 1 RUN TIME: 1313 Specimen Inquiry RUN USER: INTERFACE ARTEMIO ENT: NILA ROGERS LOC: MAIKEL U #: [id number] AGE/SX: 20/F ROOM: [facility] [place] RE03/25/21REG DR: Luis Burciaga MD : [birth year] BED: 1 DIS: STATUS: ADM IN TLOC: SPEC #: [id number] RECD: 03/27/21 STATUS: GLENN EVERETT #: [id number] SLOAN: 03/26/21- SUBM DR: Luis Burciaga MD ENTERED: 03/27/21 SP TYPE: SURG SPEC OTHR DR: ORDERED: GM LEVEL 5 CODES: [id number] - PLACENTA, NOS PROCEDURES: GM LEVEL 5 [...] 03/28/21 1313 END OF REPORT CBC W/AUTO [id number] 07:03:00* Test Item Value Reference Range Interpretation [...] ode = MDIFF) NO CORD VENOUS BLOOD [id number] 18:41:00* Test Item Value Reference Range Interpretation Comme [facility] CORD VENOUS PH (test code = [...] = O2SCV) 17 % CORD ARTERIAL BLOOD [id number] 18:40:00* Test Item Value Reference Range Interpretation [...] O2S/C) 25 % 72-77 L RAPID PLASMA [id number] 10:40:00* Test Item Value Reference Range Interpretation Comme nts RAPID PLASMA REAGIN (test co de = RPR) NONREACTIVE NONREACTIVE AG HEPATITIS B [id number] 10:40:00* Test Item Value Reference Range Interpretation Comme nts AG HEPATITIS B SURFACE (test code = HBSAG) NON REACTIVE INDEX NonReactive AB HIV 1 10:40:00* Test Item Value Reference Range Interpretation Comme nts AB HIV 1 2 (test code = MJI14UX) Nonreactive Nonreactive COVID 19 Asymptomatic IH [id number] 20:20:00* Test Item Value Reference Range Interpretation [...] perform moderate, high or waivedcomplexity tests. URINALYSIS [id number] 18:48:00* Test Item Value Reference Range Interpretation [...] MUCU) TRACE /LPF NONE SEEN RAPID PLASMA [id number] 18:11:00* Test Item Value Reference Range Interpretation Comme nts RAPID PLASMA REAGIN (test code = RPR) NONREACTI VE AG HEPATITIS B [id number] 18:11:00* Test Item Value Reference Range Interpretation Comme nts AG HEPATITIS B SURFACE (test code = HBSAG) NON REACTIVE INDEX NonReactive AB HIV 1 18:11:00* Test Item Value Reference Range Interpretation Comme nts AB HIV 1 2 (test code = MLJ64TM) Nonreactive Nonreactive COMPREHENSIVE METABOLIC [id number] 17:45:00* Test Item Value Reference Range Interpretation [...] = ALKP) 153 IUnit/L 60-350 N URIC [id number] 17:45:00* Test Item Value Reference Range Interpretation Comme nts URIC ACID (test code = URIC) 4.0 mg/dL 2.6-7.2 N LACTIC DEHYDROGENASE(LDH)2021-03-25 17:45:00* Test Item Value Reference Range Interpretation Comme nts LACTIC DEHYDROGENASE(LDH) (t est code = LDH) 225 IUnits/L 84-246 N CBC W/AUTO [id number] 17:24:00* Test Item Value Reference Range Interpretation [...] (test c ode = MDIFF) CBC W/AUTO [id number] 17:24:00* Test Item Value Reference Range Interpretation [...] ode = CAT) NO - US BIOPHYS [id number] 00:00:00 [facility] : 2000 Sex: F Name: NILA ROGERS [facility] [place] : 2000 Age/S: 20 / F [address] [place] [address] Unit #: [id number] Loc: [place] [address] Phys: Effie Solitario MD Acct: [id number] Dis Date: Status: REG ER PHONE #: [phone] Exam Date: 03/12/202141 FAX #: [phone] Reason: Possible SROM, please evaluate ISMA EXAMS: CPT CODE: [id number] US BIOPHYS PROF 37674 PROCEDURE INFORMATION: Exam: US Biophysical Profile With Non-Stress Test Exam date and time: 03/12/2021 11:26 PM Age: 20 years old Clinical indication: Other: Srom; ; Additional info: Possible srom, please evaluate imsa TECHNIQUE: Imaging protocol: biophysical profile with non-stress [...] co de = AMNI) NEGATIVE NEGATIVE URINALYSIS [id number] 21:48:00* Test Item Value Reference Range Interpretation [...] = MUCU) TRACE /LPF NONE SEEN URINALYSIS [id number] 07:00:00* Test Item Value Reference Range Interpretation [...] TRACE /LPF NONE SEEN - US BIOPHYS [id number] 00:00:00 [facility] : 2000 Sex: F Name: NILA ROGERS [facility] : 2000 Age/S: 20 / F [address] [place] [address] Blvd Unit #:[id number] Loc: [facility] [place] [address] Phys: Effie Solitario MD Acct: [id number] Dis Date: Status: REG ER PHONE #: [phone] Exam Date: 03/01/2021 0758 FAX #: [phone] Reason: decreased movements EXAMS: CPT CODE: [id number] US BIOPHYS PROF 74850 PROCEDURE INFORMATION: Exam: US Biophysical Profile With [...] signed by: Nilton Frederick M.D. CC: Technologist: EKATERINA Durham) Trnscb Date/Time: 03/01/2021 (809) [email or web address] Orig Print D/T: S: 03/01/2021 (0811) Probe: PAGE 1 Signed Report AMNISURE (ROM) [id number] 16:16:00* Test Item Value Reference Range Interpretation Comme nts AMNISURE (ROM) TEST (test co de = AMNI) NEGATIVE NEGATIVE [id number] 16:16:00* Test Item Value Reference Range Interpretation Comme nts FIBRONECTIN (test code = FFN) NEGATIVE NEGATIVE [id number] 20:50:00* Test Item Value Reference Range Interpretation Comme nts FIBRONECTIN (test code = FFN) NEGATIVE NEGATIVE URINALYSIS [id number] 20:32:00* Test Item Value Reference Range Interpretation [...] TRACE /LPF NONE SEEN - US BIOPHYS [id number] 00:00:00 [facility] : 2000 Sex: F Name: NILA ROGERS [facility] : 2000 Age/S: 20 / F [address] [place], [place] [address] Unit #:[id number] Loc: [place] [address] Phys: Effie Solitario MD Acct: [id number] Dis Date: Status: REG ER PHONE #: [phone] Exam Date: 02/12/20212122 FAX #: [phone] Reason: Decreased movements EXAMS: CPT CODE: [id number] US BIOPHYS PROF 73496 PROCEDURE INFORMATION: Exam: US F etal Biophysical [...] Reactive heart rate: 2/2 Biophysical Profile Score: 10 /10 MATERNAL ANATOMY: Cervix: The uterine cervix is closed and the cervical length is 3.5 cm. Urinary bladder: The maternal urinary bladder appears normal as visualized. IMPRESSION: 1. There is a single live intrauterine gestation in vertex presentation. 2. Normal biophysical profile score of 8/8.3. The amniotic fluid index is 10.6 cm. The deepest vertical pocket is 0.5 cm. This is within normal limits. 4. The uterine cervix is closed and the cervical length is 3.5 cm. PAGE 1 Signed Report (CONTINUED) Name: NILA ROGERS [facility] : 2000 Age/S: 20 / F [address] [place] [address] Unit #: [id number] Loc: [place] [address] Phys: Effie Solitario MD Acct: [id number] Dis Date: Status: REG ER PHONE #: [phone] Exam Date: 02/12/20212122 FAX #: [phone] Reason: Decreased movements EXAMS: CPT CODE: [id number] US BIOPHYS PROF 08907 <Continued> at 2121 Reported and signed by: Geovanny Hughes D.O. CC: Technologist: Yuki Ray RDMS()(OB) Trnscb Date/Time: 02/12/2021 (2121)[email or web address] Orig Print D/T: S: 02/12/2021 (2148) Probe: PAGE 2 Signed ReportURINALYSIS [id number] 03:25:00* Test Item Value Reference Range Interpretation [...] MUCU) TRACE /LPF NONE SEEN - US [id number] 17:34:00 [facility] MADELINE COFFMANName: NILA ROGERS : 2000 Sex: F Name: NILA ROGERS [facility] Madeline Coffman : 2000 Age/S: 20 / F [address] [place] [address] Blvd Unit #: [id number] Loc: [place] [address] Phys: ScottPearl Molina Acct: [id number] Dis Date: Status: REG ER PHONE #: [phone] Exam Date: 12/25/2020 1726 FAX #: [phone] Reason: h/o low ISMA, unsure if PROM, translabial cervic EXAMS: CPT CODE: [id number] LTD 06264 LIMITED ULTRASOUND INDICATION: with history of low [...] 1 Signed Report (CONTINUED) Name: NILA ROGERS [facility] Chandra : 2000 Age/S: 20 / F [address] [place] [address] Bl Unit #: [id number] Loc: [place] [address] Phys: Pearl Chavez DO Acct: [id number] Dis Date: Status: REG ER PHONE #: [phone] Exam Date: 12/25/2020 1726 FAX #: [phone] Reason: h/o low ISMA, unsure if PROM, translabial cervic EXAMS: CPT CODE: [id number] LTD 21139 <Continued> at 1734 Reported and signed by: Judah Izquierdo M.D. CC: Pearl Chavez DO Technologist: Merna Figueroa RDMS() Trnscb Date/Time: 12/25/2020 (173) [email or web address] Orig Print D/T: S: 12/25/2020 (173) Probe: PAGE 2 Signed Report AMNISURE (ROM) [id number] 17:14:00* Test Item Value Reference Range Interpretation Comme nts AMNISURE (ROM) TEST (test co de = AMNI) NEGATIVE NEGATIVE URINALYSIS [id number] 17:10:00* Test Item Value Reference Range Interpretation [...] /HPF NONE A DRUGS OF ABUSE SCREEN [id number] 17:07:00* Test Item Value Reference Range Interpretation [...] for non-medical purposes. - US PREG AFTER [id number] 02:47:00 [facility] : 2000 Sex: F Name: NILA ROGERS [facility] Madeline Coffman : 2000 Age/S: 19 / F [address] [place] [address] Unit #: [id number] Loc: [place] [address] Phys: Brittnee Ramirez MD Acct: [id number] Dis Date: Status: REGER PHONE #: [phone] Exam Date: 11/23/2020 014 FAX #: [phone] Reason: No PNC, bleeding, approximately 20 weeks EXAMS: CPT CODE: [id number] US PREG AFTER 1ST TRI 44515 EXAM: US, US PREG AFTER 1SR TRI: [...] was PAGE 1 Signed Report (CONTINUED) Name: KAREL ROGERS [facility] : 2000 Age/S: 19 / F [address] [place] [address] Unit #: [id number] Loc:[place] [address] Phys: Brittnee Ramirez MD Acct: [id number] Dis Date: Status: REG ER PHONE #: [phone] Exam Date: 11/23/2020143 FAX #: [phone] Reason: No PNC, bleeding, approximately 20 weeks EXAMS: CPT CODE: [id number] US PREG AFTER TRI 18347 <Continued> seen. Cervical length is not visualized. IMPRESSION: Single live fetus in variable presentation. heart rate is 140 bpm. 2. Sonographic EGA of 19 weeks 6 days and an sonographic DANY of 04/13/2021 +/- one standard deviation. SL:[JSYED-H] at 0247 Reported and signed by: Jeromy Wolfe M.D. CC: Brittnee Ramirez MD Technologist: Maryam Anderson RDMS(BR)(AB) Tr nscb Date/Time: 11/23/2020 (246) [email or web address] Orig Print D/T: S: 11/23/2020 (025) Probe: PAGE 2 Signed Report- US PREG AFTER [id number] 02:47:00 [facility] : 2000 Sex: F Name: NILA ROGERS [facility] Madeline Coffman : 2000 Age/S: 19 / F [address] [place] [address] Blvd Unit #: [id number] Loc: [place] [address] Phys: Brittnee Ramirez MD Acct: [id number] Dis Date: Status: DEPER PHONE #: [phone] Exam Date: 11/23/2020143 FAX #: [phone] Reason: No PNC, bleeding, approximately 20 weeks EXAMS: CPT CODE: [id number] US PREG AFTER 1ST TRI 21215 EXAM: US, US PREG AFTER 1SR TRI: [...] 1 Signed Report (CONTINUED) Name: NILA ROGERS [facility] : 2000 Age/S: 19 / F [address] [place] [address] Blvd Unit #: [id number] Loc: [place] [address] Phys: Brittnee Ramirez MD Acct: [id number] Dis Date: Status: DEP ER PHONE #: [phone] Exam Date: 11/23/2020143 FAX #: [phone] Reason: No PNC, bleeding, approximately 20 w eeks EXAMS: CPT CODE: [id number] US PREG AFTER 1ST TRI 01694 <Continued> seen. Cervical lengthis not visualized. IMPRESSION: Single live fetus in variable presentation. heart rate is 140 bpm. 2. Sonographic EGA of 19 weeks 6 days and an sonographic DANY of 04/13/2021 +/- one standard deviation. SL:[JSYED-H] at 0247 Reported and signed by: Jeromy Wolfe M.D. CC: Brittnee Ramirez MD Technologist: Maryam Anderson RDMS(BR)(AB) TrnscbDate/Time: 11/23/2020 (024) [email or web address].[email or web address] Orig Print D/T: S: 11/23/2020 (249) Probe: PAGE 2 Signed ReportURINALYSIS [id number] 01:40:00* Test Item Value Reference Range Interpretation [...] /HPF NONE A DRUGS OF ABUSE SCREEN [id number] 01:40:00* Test Item Value Reference Range Interpretation [...] be used for non-medical purposes. CBC W/AUTO [id number] 01:27:00* Test Item Value Reference Range Interpretation [...] c ode = MDIFF) NO BASIC METABOLIC [id number] 02:51:00* Test Item Value Reference Range Interpretation [...] = CA) 9.5 mg/dL 8.0-10.5 N HCG [id number] 02:51:00* Test Item Value Reference Range Interpretation Comme nts HCG SERUM (test code = HCG) 71624.3 0 - 6 NOT PREGNA NT > 6 SUGGESTIVE OF EARLY RISES TWO FOLD EVERY 2 DAYS; SUGGEST RECONFIRMING AFTER 2 DAYS. 150,000-200,[address] TRIMESTER 10,000 - 50,000 2ND & 3RD TRIMESTERResults in emanuel-International Units/mL URINALYSIS [id number] 02:39:00* Test Item Value Reference Range Interpretation [...] MUCU) TRACE /LPF NONE SEEN CBC W/AUTO [id number] 02:21:00* Test Item Value Reference Range Interpretation [...] = MDIFF) NO - US PREG 1ST [id number] 02:19:00 [facility] : 2000 Sex: F Name: NILA ROGERS [facility] [place] : 2000 Age/S: 19 / F [address] [place], [place] [address] Unit #: [id number] Loc: [place] [address] Phys: Nirav Nolan MD Acct: [id number] Dis Date: Status: REG ER PHONE #: [phone] Exam Date: 10/05/2020209 FAX #: [phone] Reason: VB EXAMS: CPT CODE: [id number] US PREG 1ST TRIMTR 42875 STUDY: - DUP AB/PEL/SC/LTD, - US PREG 1ST TRIMTR 10/05/2020 1:17 AM Ordering Physician: Nirav Nolan MD Patient Name: NILA ROGERS MR: [id number] : 2000; Age: 19 years y/o Female [...] 0 days with heart rate of 154 bpm.RIGHT OVARY AND ADNEXA: General: Normal size right [...] 1 Signed Report (CONTINUED) Name: NILA ROGERS [facility] Madeline Coffman : 2000 Age/S: 19 / F [address] [place] [address] Unit #: [id number] Loc: [place] [address] Phys: Nirav Nolan MD Acct: [id number] Dis Date: Status: REG ER PHONE #: [phone] Exam Date: 10/05/2020209 FAX #: [phone] Reason: VB EXAMS: CPT CODE: [id number] US PREG 1ST TRIMTR 47921 <Continued> SL: TPAINTER-H at 0219 Reported and signed by: Abdias Avila M.D. CC: Elina Rome MD; Nirav Nolan MD Technologist: Maryam Anderson RDMS(BR)(AB) Trnscb Date/Time: 10/05/2020 (218) [email or web address] Orig Print D/T: S: 10/05/2020 (221) Probe: PAGE 2 Signed Report- DUP AB/PEL/SC/[id number] 02:19:00 [facility] : 2000 Sex: F Name: NILA ROGERS [facility] : 2000 Age/S: 19 / F [address] [place] [address] Unit #: [id number] Loc: [place] [address] Phys: Nirav Nolan MD Acct: [id number] Dis Date: Status: REG ER PHONE #: [phone] Exam Date: 10/05/2020209 FAX #: [phone] Reason: see US PREG 1st TRIMTR EXAMS: CPT CODE: [id number] DUP AB/PEL/SC/LTD 97445 STUDY: - DUP AB/PEL/SC/LTD, - US PREG 1ST TRIMTR 10/05/2020 1:17 AM Ordering Physician: Nirav Nolan MD Patient Name: NILA ROGERS MR: [id number] : 2000; Age: 19 years y/o Female [...] 1 Signed Report (CONTINUED) Name: NILA ROGERS [facility] : 2000 Age/S: 19 / F [address] [place] [address] Blvd Unit #: [id number] Loc: [place] [address] Phys: Nirav Nolan MD Acct: [id number] Dis Date: Status: REG ER PHONE #: [phone] Exam Date: 10/05/2020209 FAX #: [phone] Reason: see US PREG 1st TRIMTR EXAMS: CPT CODE: [id number] DUP AB/PEL/SC/LTD 86603 <Continued> SL: TPAINTER-H at 0219 Reported and signed by: Abdias Avila M.D. CC: Elina Rome MD; Nirav Nolan MD Technologist: Maryam Anderson RDMS(BR)(AB) Trnscb Date/Time: 10/05/2020 (218) [email or web address] Orig Print D/T: S: 10/05/2020 (221) Probe: PAGE 2 Signed Report- DUP AB/PEL/SC/[id number] 22:07:00 [facility] MADELINE COFFMANName: NILA ROGERS : 2000 Sex: F Name: NILA ROGERS [facility] Madeline Coffman : 2000 Age/S: 19 / F [address] [place] [address] Blvd Unit #:[id number] Loc: [place] [address] Phys: Cathy Bruce Acct: [id number] Dis Date: Status: REG ER PHONE #: [phone] Exam Date: 08/22/20202199 FAX #: [phone] Reason: see US PREG 1stTRIMTR EXAMS: CPT CODE: [id number] DUP AB/PEL/SC/LTD 78062 PROCEDURE: FIRST TRIMESTER ULTRASOUND INDICATION: 6 weeks [...] with 6 weeks 1 day gestational age. Fetalheart tones measure 120 bpm. Right ovary appears normal measuring 3.3 x 2.4 x 2.1 cm with arterialwaveforms documented. Left ovary appears normal measuring 2.2 x 1.7 x 1.6 m with arterial waveformsdocumented. No adnexal mass visualized. No free pelvic fluid. TRANSVAGINAL SCAN: Not performed. IMPRESSION: Single viable intrauterine of estimated sonographic gestational age of 6 weeks 4days. SL: BALJINDER at 2207 Reported and signed by: Judah Izquierdo M.D. CC: Elina Rome MD; Cathy MELO Technologist: Maryam Anderson RDMS(BR)(AB) Trnscb Date/Time: 08/22/2020 (2206) [email or web address] Orig Print D/T: S: 08/22/2020 (2209) Probe: PAGE 1 Signed Report- US PREG 1ST [id number] 22:07:00[facility] : 2000 Sex: F Name: NILA ROGERS [facility] : 2000 Age/S: 19 / F [address] [place] [address] Unit #: [id number] Loc: [place] [address] Phys: Cathy Bruce Acct: [id number] Dis Date: Status: REG ER PHONE #: [phone] Exam Date: 08/22/20202199 FAX #: [phone] Reason: 6w , cramping EXAMS: CPT CODE: [id number] US PREG 1ST TRIMTR 44786 PROCEDURE: FIRST TRIMESTER ULTRASOUND INDICATION: 6 weeks [...] 08/22/2020 (2209) Probe: PAGE 1 Signed ReportURINALYSIS [id number] 21:50:00* Test Item Value Reference Range Interpretation [...] MUCU) TRACE /LPF NONE SEEN BASIC METABOLIC [id number] 21:48:00* Test Item Value Reference Range Interpretation [...] patient ? YHOW MANY WEEKS? 6 WEEKSHCG [id number] 21:48:00* Test Item Value Reference Range Interpretation Comme nts HCG SERUM (test code = HCG) 44259.6 0 - 6 NOT PREGNA NT > 6 SUGGESTIVE OF EARLY RISES TWO FOLD EVERY 2 DAYS; SUGGEST RECONFIRMING AFTER 2 DAYS. 150,000-200,[address] TRIMESTER 10,000 - 50,000 2ND & 3RD TRIMESTERResults in emanuel-International Units/mL Is patient ? YHOW MANY WEEKS? 6 WEEKSUR HCG [id number] 21:47:00* Test Item Value Reference Range Interpretation Comme nts UR HCG QUAL (test code = HCGQLU) POSITIVE NEGATIVE CBC W/AUTO [id number] 21:33:00* Test Item Value Reference Range Interpretation [...] c ode = MDIFF) NO CBC W/AUTO [id number] 21:31:00* Test Item Value Reference Range Interpretation [...] c ode = MDIFF) Novel Coronavirus 2019 [id number] 14:50:00* Test Item Value Reference Range Interpretation Comme nts Novel Coronavirus 2019 nCoV (test code = COVID19) Negative Negative Performed by: [facility] [address] [place] [address], [address] [place], [place] [address] CLIA#: [id number] Does patient have the clinical criteria consistent with COVID-19? YIs the patient going to be discharged home? Y- CT NECK [id number] 02:35:00 Name: NILA ROGERS [facility] : 2000 Age/S: 19 / F [address] [place] [address] Blvd Unit #:[id number] Loc: [place] [address] Phys: Amilcar Pablo CIVIL CADD TECHNICIAN Acct: [id number] Dis Date: Status: REG ER PHONE #: [phone] Exam Date: 02/16/2020 0134 FAX #: [phone] Reason: R lymphadenopathy, throat pain, fever EXAMS: CPT CODE: [id number] CT NECK W/CONTRAST 14609 EXAM: CT, CT NECK W/CONTRAST: 02/16/2020, 0132 [...] of IV Isovue contrast material was used forthe exam. CT Radiation Dose DLP 247.33 mGy-cm [...] 1 Signed Report (CONTINUED) Name: NILA ROGERS [facility] : 2000 Age/S: 19 / F [address] [place] [address] Unit #: [id number] Loc: [place] [address] Phys: Amilcar Pablo CIVIL CADD TECHNICIAN Acct: [id number] Dis Date: Status: REG ER PHONE #: Exam Date: 02/16/2020 0134 FAX #: [phone] Reason: R lymphadenopathy, throat pain, fever EXAMS: CPT CODE: [id number] CT NECK W/CONTRAST 47515 <Continued> unremarkable. OSSEOUS STRUCTURES: There are no [...] Rome MD; Amilcar Pablo NP Technologist:Josué Granado RT (R)(CT); Natasha CTDI: DLP: Trnscb Date/Time: 02/16/2020 (023) [email or web address] Orig Print D/T: S: 02/16/2020 (023) PAGE 2 Signed ReportCOMPREHENSIVE METABOLIC [id number] 00:12:00* Test Item Value Reference Range Interpretation [...] = ALKP) 70 IUnit/L 60-350 N MONO [id number] 00:09:00* Test Item Value Reference Range Interpretation Comme nts MONO SCREEN (test code = MONO) NEGATIVE NEGATIVE URINALYSIS [id number] 00:02:00* Test Item Value Reference Range Interpretation [...] MUCU) 1+ /LPF NONE SEEN COMPREHENSIVE METABOLIC [id number] 00:02:00* Test Item Value Reference Range Interpretation [...] code = ALKP) IUnit/L 60-350 CBC W/AUTO [id number] 23:59:00* Test Item Value Reference Range Interpretation [...] (test code = MDIFF) NO UR HCG [id number] 23:56:00* Test Item Value Reference Range Interpretation Comme nts UR HCG QUAL (test code = HCGQLU) NEGATIVE NEGATIVE
[2024-08-13 23:08] LABS: Absolute Basophils 0.2 K/uL (0-0.5); Absolute Eosinophils 0.2 K/uL (0-0.5); Absolute Lymphocytes (CBC) 4.2 K/uL (0.7-4.9); Absolute Monocytes 0.9 K/uL (0.1-1.3); Absolute Neutrophil 5.9 K/uL (1.8-8.0); Basophils % 1.4 % (0-1.3); Eosinophils % 1.5 % (0-4.4); Hematocrit 37.1 % (36.0-45.0); Hemoglobin 12.3 g/dL (12.0-15.0); Lymphocytes % 36.8 % (15.3-44.8); MCH 29.6 pg (27.0-35.0); MCHC 33.1 g/dL (32.0-36.0); MCV 89.5 fL (80-100); MPV 8.1 fL (7.6-11.3); Monocytes % 7.9 % (3.3-12.3); Neutrophils % 52.4 % (41.7-73.7); Nucleated Red Blood Cells % 0.1 % (0-0); Platelets 294 thou/uL (152-406); RBC Red Blood Cell Count 4.14 M/uL (3.86-4.86); Red Cell Distribution Width 13.8 % (12.1-15.2)
[2024-08-13 23:15] LABS: Anion Gap 9.9 mEq/L (5.0-15.0); Potassium 3.9 mEq/L (3.5-5.1)
[2024-08-13] MEDS ORDERED: NA CHLORIDE 0.9% 1,000 ML ONE (23:21)
[2024-08-13] MEDS ORDERED: KETOROLAC 30 MG/ML INJ ONE (23:31)
[2024-08-14 00:34] LABS: Specific Gravity > 1.030 (1.005-1.030)
[2024-08-14 00:43] LABS: Specific Gravity > 1.030 (1.005-1.030); Urine Bacteria None Seen /HPF (<20); Urine Bilirubin NEGATIVE (Negative); Urine Blood 3+ (OVER) (Negative); Urine Clarity Extremely Turbid (Clear); Urine Color Light-Orange (Yellow); Urine Culture Reflex Order NOT NEEDED; Urine Glucose NEGATIVE (Negative); Urine Ketones NEGATIVE (Negative); Urine Microscopic Reflex YN ORDER UMIC; Urine Mucus Slight /HPF (None Seen); Urine Nitrite NEGATIVE (Negative); Urine Protein TRACE (Negative); Urine RBC >50 /HPF (None Seen); Urine Urobilinogen Normal (Normal); Urine WBC <5 /HPF (<5); Urine pH 6.5 (5.0-7.0)
--- NOTE | 2024-08-14 00:48 | ER ---
Nurse's Notes [facility] Name: Hilaria Rogers Age: 23 yrs Sex: Female : 2000 Arrival Date: 08/13/2024 Time: 20:33 Bed 6 Private MD: Diagnosis: Dysuria Presentation: 08/13 20:58 Chief complaint: Patient states: c/o lower back pain 9/10. Able to urinate this morning me1 and urine was orange-red. Drank a lot of water and 64 oz of cranberry juice and still does not have the urge to urinate. Coronavirus screen: At this time, the client does not indicate any symptoms associated with coronavirus-19. Ebola Screen: No symptoms or risks identified at this time. Initial Sepsis Screen: Does the patient meet any 2 criteria? HR > 90 bpm. Risk Assessment: Do you want to hurt yourself or someone else? Patient reports no desire to harm self or others. Onset of symptoms was August 13, 2024 at 10:00. 20:58 Method Of Arrival: [place] [facility] 20:58 Acuity: CONCHITA 3 me1 Triage Assessment: 21:02 General: Appears in no apparent distress. comfortable, Behavior is calm, cooperative. br2 Pain: Complains of pain in left lower back and right lower back Pain does not radiate. Pain currently is 5 out of 10 on a pain scale. DATA TYPIST: 21:01 LMP 07/23/2024, unknown me1 Historical: - Allergies: 21:01 sour candy; me1 - Home Meds: 21:01 None [Active]; me1 - PMHx: 21:01 None; me1 - PSHx: 21:01 Adenoid excision; Appendectomy; Tonsillectomy; me1 - Immunization history:: Adult Immunizations up to date. - Infectious Disease History:: Denies. - Social history:: Smoking status: Reported history of juuling and/or vaping. Screenin:58 [facility] ED Fall Risk Assessment (Adult) History of falling in the last 3 months, br2 including since admission No falls in past 3 months (0 pts) Confusion or Disorientation No (0 pts) Intoxicated or Sedated No (0 pts) Impaired Gait No (0 pts) Mobility Assist Device Used No (0 pt) Altered Elimination No (0 pt) Score/Fall Risk Level 0 - 2 = Low Risk Oriented to surroundings. Abuse screen: Denies threats or abuse. Denies injuries from another. Nutritional screening: No deficits noted. Tuberculosis screening: No symptoms or risk factors identified. Assessment: 21:02 Reassessment: Patient and/or family updated on plan of care and expected duration. Pain br2 level reassessed. Patient is alert, oriented x 3, equal unlabored respirations, skin warm/dry/pink. General: Appears in no apparent distress. comfortable. Pain: Complains of pain in lumbar area, left low back and right low back Pain does not radiate. : Reports burning with urination, urinary frequency. 23:00 Reassessment: Patient and/or family updated on plan of care and expected duration. Pain br2 level reassessed. Patient is alert, oriented x 3, equal unlabored respirations, skin warm/dry/pink. Patient states feeling better. Patient states symptoms have improved. Vital Signs: 20:58 BP 134 / 83; Pulse 106; Resp 18; Temp 98.5; Pulse Ox 100% ; Weight 90.72 kg; Height 5 me1 ft. 3 in. ; Pain 9/10; 20:58 Body Mass Index 35.43 (90.72 kg, 160.02 cm) me1 20:58 Pain Scale: Adult me1 ED Course: 20:37 Patient arrived in ED. im 20:39 Shiraz Tidwell DO is Attending Physician. ms3 20:58 Patient has correct armband on for positive identification. Placed in gown. Bed in low br2 position. Call light in reach. Side rails up X 1. Provided Education on: plan of care. 21:01 Triage completed. me1 21:01 Arm band placed on Patient placed in waiting room. me1 22:35 Initial lab(s) drawn, by mn, sent to lab. Inserted saline lock: 22 gauge in right lg3 antecubital area, using aseptic technique. Blood collected. Flushed with 10 mL NS. 22:35 BMP Sent. lg3 22:35 CBC with Diff Sent. lg3 23:13 Bladder scan completed. 374ml. lg3 08/14 00:08 Bernadette Balbuena, KELSEY is Primary Nurse. br2 00:47 Eliseo Swift DO is Referral Physician. ms3 00:47 Isaias Navarro MD is Referral Physician. ms3 00:57 No provider procedures requiring assistance completed. IV discontinued, intact, br2 bleeding controlled, No redness/swelling at site. Pressure dressing applied. Administered Medications: 08/13 23:27 Drug: NS 0.9% IV 1000 ml IV at 1 bolus Per protocol; to be given as a bolus over 60 cg minutes Route: IV; Rate: 1 bolus; Site: right antecubital; 08/14 00:30 Follow up: Response: No adverse reaction; IV Status: Completed infusion; IV Intake: br2 1000ml 08/13 23:32 Drug: Ketorolac IVP 10 mg 10 mg IVP once Route: IVP; Site: right antecubital; 08/14 00:30 Follow up: Response: No adverse reaction br2 01:04 Drug: Macrobid PO 100 mg PO once; administer with food Route: PO; br2 01:04 Follow up: Response: Medication administered at discharge. br2 Medication: 00:57 VIS not applicable for this client. br2 Intake: 00:30 IV: 1000ml; Total: 1000ml. br2 Outcome: 00:48 Discharge ordered by MD. ms3 00:57 Discharged to home ambulatory, br2 00:57 Condition: stable 00:57 Discharge instructions given to patient, family, Instructed on discharge instructions, follow up and referral plans. Demonstrated understanding of instructions, follow-up care, medications, Prescriptions given X 1, 01:04 Patient left the ED. br2 Signatures: Pia Skinner RN RN Emma Goodwin RN RN lg3 Shiraz Tidwell DO DO ms3 Cindy Godinez Michelle, RN RN me1 Bernadette Balbuena RN RN br2 Corrections: (The following items were deleted from the chart) 08/13 21:02 21:01 PMHx: Unable to Obtain; me1 me1
--- NOTE | 2024-08-14 00:48 | EDPHYS ---
Physician Documentation [facility] Name: Hilaria Rogers Age: 23 yrs Sex: Female : 2000 Arrival Date: 08/13/2024 Time: 20:33 Bed 6 Private MD: ED Physician Shiraz Tidwell HPI: 08/13 22:14 This 23 yrs old Female presents to ER via Ambulatory with complaints of Low Back Pain, ms3 Urinary Problem. 22:14 Hilaria Rogers, a 23-year-old female, presents to the Emergency Department with ms3 urinary symptoms. She reports an inability to urinate despite drinking large amounts of fluids, including 64 ounces of cranberry juice and several bottles of water. The issue began today. This morning, when she was able to urinate, she noticed her urine was an orange-red color. She reports no sensation of needing to urinate and has no numbness, weakness, or pain.. TOUR ESCORT: 21:01 LMP 07/23/2024, unknown me1 Historical: - Allergies: 21:01 sour candy; me1 - Home Meds: 21:01 None [Active]; me1 - PMHx: 21:01 None; me1 - PSHx: 21:01 Adenoid excision; Appendectomy; Tonsillectomy; me1 - Immunization history:: Adult Immunizations up to date. - Infectious Disease History:: Denies. - Social history:: Smoking status: Reported history of juuling and/or vaping. ROS: 22:14 Constitutional: Negative for fever, and chills. Cardiovascular: Negative for chest ms3 pain, and palpitations. Respiratory: Negative for shortness of breath, cough, wheezing, and pleuritic chest pain, Abdomen/GI: Negative for abdominal pain, nausea, vomiting, diarrhea, and constipation, MS/Extremity: Negative for injury and deformity, 22:14 : Positive for difficulty urinating, Exam: 22:14 Constitutional: This is a well developed, well nourished patient who is awake, alert, ms3 and in no acute distress. Cardiovascular: Regular rate and rhythm with a normal S1 and S2. No gallops, murmurs, or rubs. Normal PMI, no JVD. No pulse deficits. Respiratory: Lungs have equal breath sounds bilaterally, clear to auscultation and percussion. No rales, rhonchi or wheezes noted. No increased work of breathing, no retractions or nasal flaring. Abdomen/GI: Soft, non-tender, with normal bowel sounds. No distension or tympany. No guarding or rebound. No evidence of tenderness throughout. Skin: Warm, dry with normal turgor. Normal color with no rashes, no lesions, and no evidence of cellulitis. MS/ Extremity: Pulses equal, no cyanosis. Neurovascular intact. Full, normal range of motion. Vital Signs: 20:58 BP 134 / 83; Pulse 106; Resp 18; Temp 98.5; Pulse Ox 100% ; Weight 90.72 kg; Height 5 me1 ft. 3 in. ; Pain 9/10; 20:58 Body Mass Index 35.43 (90.72 kg, 160.02 cm) me1 20:58 Pain Scale: Adult me1 MDM: 21:02 Medical Screening Exam initiated ms3 22:14 Differential diagnosis: UTI, Gross Hematuria vs Urinary retention vs ESRD. ms3 08/14 00:55 Data reviewed: vital signs, nurses notes, lab test result(s), and as a result, I will ms3 discharge patient. I considered the following discharge prescriptions or medication management in the emergency department Medications were administered in the Emergency Department. See MAR. Test considered but Not performed: CT: Patient with difficulty with urination. CT ordered to determine if patient had obstruction. Patient declined CT.. Counseling: I had a detailed discussion with the patient and/or guardian regarding the historical points, exam findings, and any diagnostic results supporting the discharge/admit diagnosis, lab results, the need for outpatient follow up, to return to the emergency department if symptoms worsen or persist or if there are any questions or concerns that arise at home. Special discussion: I discussed with the patient/guardian in detail that at this point there is no indication for admission to the hospital. It is understood, however, that if the symptoms persist or worsen the patient needs to return immediately for re-evaluation. ED course: Patient with leukocyte esterase and blood on urinalysis. UA in combination with patient's symptoms we will treat for urinary tract infection. Patient to follow-up with primary care and urology in 2 to 3 days. Patient understands and agrees with plan. All questions were answered. Return precautions discussed include worsening symptoms, or any other concerns. 08/13 20:39 Order name: Urinalysis w/ reflexes; Complete Time: 00:43 ms3 08/13 21:03 Order name: CBC with Diff; Complete Time: 23:14 ms3 08/13 21:03 Order name: BMP; Complete Time: 23:17 ms3 08/14 00:32 Order name: Test, Urine; Complete Time: 00:43 EDMS 08/13 21:03 Order name: Bladder Scanner; Complete Time: 23:28 ms3 Administered Medications: 08/13 23:27 Drug: NS 0.9% IV 1000 ml IV at 1 bolus Per protocol; to be given as a bolus over 60 cg minutes Route: IV; Rate: 1 bolus; Site: right antecubital; 08/14 00:30 Follow up: Response: No adverse reaction; IV Status: Completed infusion; IV Intake: br2 1000ml 08/13 23:32 Drug: Ketorolac IVP 10 mg 10 mg IVP once Route: IVP; Site: right antecubital; 08/14 00:30 Follow up: Response: No adverse reaction br2 01:04 Drug: Macrobid PO 100 mg PO once; administer with food Route: PO; br2 01:04 Follow up: Response: Medication administered at discharge. br2 Disposition Summary: 08/14/24 00:48 Discharge Ordered Notes: Location: Home ms3 Condition: Stable ms3 Diagnosis - Dysuria ms3 Followup: ms3 - With: Eliseo Swift DO - When: 2 - 3 days - Reason: Recheck today's complaints Followup: ms3 - With: Isaias Navarro MD - When: 2 - 3 days - Reason: Recheck today's complaints Discharge Instructions: - Discharge Summary Sheet ms3 - Dysuria ms3 Forms: - Medication Reconciliation Form ms3 - Antibiotic Education ms3 - Prescription Opioid Use ms3 - Patient Portal Instructions ms3 - Leadership Thank You Letter ms3 Prescriptions: - Macrobid 100 mg Oral Capsule - take 1 capsule ORAL route every 12 hours for 7 days; 14 capsule; Refills: 0, ms3 Product Selection Permitted Signatures: Dispatcher [employer] Pia Sam RN RN cg Shiraz Tidwell DO DO ms3 Brisa Bradshaw RN RN me1 [place], Bernadette, RN RN br2 Corrections: (The following items were deleted from the chart) 08/13 21:02 21:01 PMHx: Unable to Obtain; me1 me1 08/14 00:32 08/13 23:21 TEST, SERUM+SC.LAB.BRZ ordered. EDMS EDMS
[2024-08-14] MEDS ORDERED: NITROFURAN MACRO 100 MG CAP PO ONE (00:54)
[2024-08-14 07:03] VITALS: BP 134/83; TEMP 98.5; O2SAT 100
== END 2024-08-14 01:04 | disposition home or self-care (01) ==
LOC: ER 20:33
DX: R30.0 Dysuria (principal); F17.290 Nicotine dependence, other tobacco product, uncomplicated
CPT/HCPCS: 36415; 80048; 81001; 81025; 85025; 96361; 96374; 99284; J7030

== ENCOUNTER 2024-09-04 22:22 | Emergency (ER) | payer SELFPAY, OTHER ==
--- OUTSIDE RECORDS SUMMARY | 2024-09-04 22:28 | XMS REPORT | Continuity of Care Document ---
Author Name Unknown Address [address] [facility] [address] [place] [address] [facility] thconnect Address [address] [facility] [place] [address] Care Team Providers Care Court Specialist Name Role Phone FREDERICK RICHARDSON Primary Care Physician Unavailab Brittnee Acosta Attending Clinician UnavailMADHAVI Garnett Attending Clinician Unavailable MERT MILES Attending Clinician Unavailable MERT MILES Attending Clinician Unavailable PHILL ROMAN Attending Clinician UnavailPhill Garnett MD Attending Clinician [phone] Luis Burciaga Attending Clinician UnavailSUZY Malcolm Attending Clinician Unavailable Suzy Uriostegui MD Attending Clinician [phone] Effie Marquez Attending Clinician Unava ANTONIA Corbett Attending Clinician Unavailable Teresa PICKERING, Antonia Garzon Attending Clinician [phone] Ghanshyam Chavez Attending Clinician Tierney vilma Nurse, Osvaldo Evangelista Attending Clinician Unavaila Frederick Herrera MD Attending Clinician [phone] FREDERICK RICHARDSON Attending Clinician Unavailable AR RICHARDSON Attending Clinician Unavailable Ar Richardson MD Attending Clinician [phone] Kishor Bishop Attending Clinician Unavailable ELINA ROME Attending Clinician Unavailable Madhavi Roman PA-C Attending Clinician [phone] Dottie Chavez Attending Clinician UnavailNathalia Allen Attending Clinician [phone] Ny Khan MD Attending Clinician [phone] Olivier BRAKE REPAIRER HYDRAULIC, Aneta Esparza Attending Clinician [phone] Unknown, Attending Attending Clinician Unavailab miah LOPEZ, ATTENDING Attending Clinician Unavailab Pearl Petersen Attending Clinician Unavailjas Noble RN, Tashia Rae Attending Clinician Unavailab miah Last BRAKE REPAIRER HYDRAULIC, Lily Hummel Attending Clinician [phone] Lydia Bojorquez MD Attending Clinician [phone] Doctor Unassigned, Tomas De Castro Attending Clinician U robbin HEREDIA, Liberty Attending Clinician + [phone] LIBERTY CAMP Attending Clinician Unavailable Wiliam GREASER AND OILER, Antonia Attending Clinician + [phone] Dagoberto GREASER AND OILER, Kassidy Cagle Attending Clinician [phone] Rajan PICKERING, Elina Pandey Attending Clinici an KASSIDY ARENAS Attending Clinician Unavailab REJI Bose Attending Clinician Unavailable Ivet PICKERING, Aiden Conde Attending Clinician [phone] SOSA ADAMES Attending Clinician Unavailable Zacarias PICKERING, Sosa Attending Clinician [phone] Santiago COLE, Sandra Joy Attending Clinician Unavaila Ashley Schafer DO Attending Clinician + [phone] Mike Heard MD Attending Clinician [phone] Shahnaz MIRELES, Sujata Attending Clinician SUZY URIOSTEGUI Admitting Clinician Unavailable [place] KHAN Admitting Clinician Unavailable Brittnee Ramirez Admitting Clinician UnavailElina Chavez Admitting Clinician Unavail able PHILL ROMAN Admitting Clinician UnavailPhill Garnett MD Admitting Clinician [phone] Luis Burciaga Admitting Clinician UnavailSuzy Malcolm MD Admitting Clinician [phone] Emily Artis Admitting Clinician UnavailANTONIA Samaniego Admitting Clinician Unavailable Effie Solitario Admitting Clinician Unaalondra ilisha Physician, No Primary or Family Admitting Clinic lizzeth Unavailable Dottie Chavez Admitting Clinician UnavailNy Frederick MD Admitting Clinician [phone] Pearl Chavez Admitting Clinician UnavailSOSA Bae Admitting Clinician Unavailable Payers Payer Name Policy Type Policy Number Effective Date Expirati on Date Source [facility] [id number] 2023 00:00:00 [facility] [id number] 00:00:00 [facility] [id number] 2023 00:00:00 Problems Condition Name Condition Details Condition Category Status Onset Date Resolution Date Last Treatment Date Treating Clinician Comments Source Acute appendicit is Acute appendicit is Disease Active 2022-07 0-15 00:00: 00 [facility] Anxiety Anxiety Disease Active [facility] Allergies, Adverse Reactions, Alerts Allergy Name Allergy Type Status Severity Reaction(s) Onset Date Inactive Date Treating Clinician Comments Source MARCUS ACID- THROAT SWELLING DA Active SV 08-03 00:00: 00 [facility] No Known Allergie s DA Active U 11-23 00:00: 00 [facility] No Known Allergie s DA Active U 11-23 00:00: 00 [facility] Malic Acid Drug Allergy Active Swelling 12-24 00:00: 00 [facility] MALIC ACID DRUG INGREDI Active High Swelling 12-24 00:00: 00 [facility] MALIC ACID DA Active SV TONGUE SWELLING, THROAT CLOSING 12-24 00:00: 00 [facility] SOUR MOREAU DRUG INGREDI Active Anaphylaxis 30 00:00: 00 [facility] Sour Moreau Propensi ty to adverse reaction s Active Anaphylaxis 30 00:00: 00 Sour flavoring on all candy [facility] Social History Social Habit Start Date Stop Date Quantity Comments Source ASSERTION 2022-02-27 00:00:00 [facility] Sexual orientation U [facility] Alcohol intake 2023-05-03 00:00:00 2023-05-03 00:00:00 Ex-drinker (finding) [facility] Exposure to SARS-CoV-2 (event) 2022-10-07 00:00:00 2022-10-17 15:17:00 Not sure [facility] History of Social function 2022-02-25 00:00:2022-02-25 00:00:00 [facility] Tobacco use and exposure 2022-02-25 00:00:00 2022-02-25 00:00:00 Smokeless tobacco non-user [facility] Sex Assigned At 2002 00:00:00 2000 00:00:00 [facility] Smoking Status Start Date Stop Date Source Never smoked tobacco [facility] Medications Ordered Medication Name Filled Medication Name Start Date Stop Date Current Medication? Ordering Clinician Indication Dosage Frequency Signature (SIG) Comments Components Source ibuprofen (IBU) tablet 400 mg 2022-07 15:00: 00 Yes 400mg 400 mg, Oral, Q8H, First dose on 05/03/23 at 1000, Until Discontinu ed, Routine [facility] SERTraline 25 mg tablet 2022-07 12:24: 34 Yes 25mg Take 1 tablet by mouth in the morning. [facility] ketorolac (TORADOL) injection 30 mg 2022-07 04:00: 00 05-03 03:38 :00 No 30mg 30 mg, Slow IV Push, ONCE, 1 dose, On 05/02/23 at 2300, Routine [facility] ibuprofen 400 mg tablet 2022-07 00:00: 00 05-11 04:59 :00 No [id number] 400mg Take 1 tablet by mouth every 8 (eight) hours as needed for Pain (scale 4-6) for up to 7 days. [facility] traMADoL 50 mg tablet 2022-07 00:00: 00 05-11 04:59 :00 No [id number] 50mg Take 1 tablet by mouth every 6 (six) hours as needed for Pain (scale 7-10) for up to 7 days. Indication s: acute pain [facility] enoxaparin (LOVENOX) injection 40 mg 2022-07 22:00: 00 Yes 40mg 40 mg, Subcutaneo us, DAILY, First dose on 05/02/23 at 1700, Until Discontinu ed, Routine [facility] lactated ringers IV infusion 1,000 mL 2022-07 17:15: 00 Yes 1000mL at 100 mL/hr, 1,000 mL, IV Infusion, CONTINUOUS , Starting on Wed05/02/23 at 1215, Until Discontinu ed, Routine, PACU [facility] HYDROcodone -acetaminop hen (NORCO 5) 5-325 mg tablet 1 tablet 2022-07 17:15: 00 05-02 17:48 :00 No 1{tbl} 1 tablet, Oral, ONCE, 1 dose, On Wed05/02/23 at 1215, Routine, PACU [facility] FENTanyl PF (SUBLIMAZE (PF)) injection 25 mcg 2022-07 17:13: 49 05-02 18:23 :47 No 25ug 25 mcg, Slow IV Push, Q5MIN PRN, 4 doses, Starting on Wed05/02/23 at 1213, Until [place] 05/02/23 at 1323, Routine, Pain (scale 4-6), PACU [facility] HYDROcodone -acetaminop hen (NORCO 5) 5-325 mg tablet 1 tablet 2022-07 16:58: 20 Yes 1{tbl} 1 tablet, Oral, Q4HPRN, Starting on Wed05/02/23 at 1158, Until Discontinu ed, Routine, Pain (scale 4-6) [facility] sodium chloride 0.9 % irrigation solution 2022-07 16:49: 00 05-02 17:12 :46 No PRN, Starting on Wed05/02/23 at 1149, Until Wed05/02/23 at 1212, Intra-op [facility] bupivacaine (preserv free) (SENSORCAIN E MPF) 0.25 % (2.5 mg/mL) injection 2022-07 16:35: 00 05-02 17:12 :46 No PRN, Starting on Wed05/02/23 at 1135, Until Wed05/02/23 at 1212, Routine, Intra-op [facility] NaCl 0.9% (NS) IV infusion 1,000 mL 2022-07 09:30: 00 05-02 16:57 :40 No 1000mL at 125 mL/hr, IV Infusion, CONTINUOUS , Starting on Wed05/02/23 at 0430, Until 05/02/23 at 1157, Routine [facility] ondansetron (ZOFRAN (PF)) injection 4 mg 2022-07 09:23: 00 Yes 4mg 4 mg, Slow IV Push, Q4HPRN, Starting on 05/02/23 at 0423, Until Discontinu ed, Routine, Nausea and Vomiting (N/V) [facility] FENTanyl PF (SUBLIMAZE (PF)) injection 12.5 mcg 2022-07 09:22: 41 05-02 16:58 :38 No 12.5ug 12.5 mcg, Slow IV Push, Q4HPRN, Starting on 05/02/23 at 0422, Until 05/02/23 at 1158, Routine, Pain (scale 7-10) [facility] acetaminoph en (TYLENOL) tablet 650 mg 2022-07 09:22: 29 Yes 650mg 650 mg, Oral, Q6HPRN, Starting on 05/02/23 at 0422, Until Discontinu ed, Routine, Pain (scale 1-3) [facility] FLUTICASONE PROPIONATE 50 mcg/actuati on nasal spray 2020-07 00:00: 00 05-02 00:00 :00 No [id number] SPRAY 1 SPRAY INTO EACH NOSTRIL EVERY DAY [facility] EPINEPHrine 0.3 mg/0.3 mL injection 2019-07 00:00: 00 Yes [id number] INJECT 0.3 ML BY INTRAMUSCU LAR ROUTE ONCE NOW FOR 1 DOSE. [facility] Immunizations Ordered Immunization Name Filled Immunization Name Date Status Comments Source DTP 2023-05-02 11:24:00 Completed [facility] HIB 3 Dose Schedule 2023-05-02 11:24:00 Completed [facility] HEPATITIS A 2023-05-02 11:24:00 Completed [facility] Hep B, Adol or Pedi Dosage 2023-05-02 11:24:00 Completed [facility] MMR 2023-05-02 11:24:00 Completed [facility] Polio (IPV/OPV) 2023-05-02 11:24:00 Completed [facility] Meningococcal Polysaccharide (groups A, C, Y and W-135) conjugate vaccine (MCV4P) 2023-05-02 11:24:00 Completed [facility] Pneumococcal 7 Conjugate, PCV7 (Prevnar7) 2023-05-02 11:24:00 Completed [facility] DTP 2023-05-02 03:19:00 Completed [facility] HIB 3 Dose Schedule 2023-05-02 03:19:00 Completed [facility] HEPATITIS A 2023-05-02 03:19:00 Completed [facility] Hep B, Adol or Pedi Dosage 2023-05-02 03:19:00 Completed [facility] MMR 2023-05-02 03:19:00 Completed [facility] Polio (IPV/OPV) 2023-05-02 03:19:00 Completed [facility] Meningococcal Polysaccharide (groups A, C, Y and W-135) conjugate vaccine (MCV4P) 2023-05-02 03:19:00 Completed [facility] Pneumococcal 7 Conjugate, PCV7 (Prevnar7) 2023-05-02 03:19:00 Completed [facility] Meningococcal Polysaccharide (groups A, C, Y and W-135) conjugate vaccine (MCV4P) 2019-02-23 00:00:00 Completed [facility] Meningococcal Polysaccharide (groups A, C, Y and W-135) conjugate vaccine (MCV4P) 2019-02-23 00:00:00 Completed [facility] DTP 2005-01-21 00:00:00 Completed [facility] HIB 3 Dose Schedule 2005-01-21 00:00:00 Completed [facility] HEPATITIS A 2005-01-21 00:00:00 Completed [facility] Pneumococcal 7 Conjugate, PCV7 (Prevnar7) 2005-01-21 00:00:00 Completed [facility] DTP 2005-01-21 00:00:00 Completed [facility] HIB 3 Dose Schedule 2005-01-21 00:00:00 Completed [facility] HEPATITIS A 2005-01-21 00:00:00 Completed [facility] Pneumococcal 7 Conjugate, PCV7 (Prevnar7) 2005-01-21 00:00:00 Completed [facility] MMR 2003-12-25 00:00:00 Completed [facility] Polio (IPV/OPV) 2003-12-25 00:00:00 Completed [facility] Pneumococcal 7 Conjugate, PCV7 (Prevnar7) 2003-12-25 00:00:00 Completed [facility] MMR 2003-12-25 00:00:00 Completed [facility] Polio (IPV/OPV) 2003-12-25 00:00:00 Completed [facility] Pneumococcal 7 Conjugate, PCV7 (Prevnar7) 2003-12-25 00:00:00 Completed [facility] DTP 2003-06-19 00:00:00 Completed [facility] HIB 3 Dose Schedule 2003-06-19 00:00:00 Completed [facility] Hep B, Adol or Pedi Dosage 2003-06-19 00:00:00 Completed [facility] Polio (IPV/OPV) 2003-06-19 00:00:00 Completed [facility] DTP 2003-06-19 00:00:00 Completed [facility] HIB 3 Dose Schedule 2003-06-19 00:00:00 Completed [facility] Hep B, Adol or Pedi Dosage 2003-06-19 00:00:00 Completed [facility] Polio (IPV/OPV) 2003-06-19 00:00:00 Completed [facility] Hep B, Adol or Pedi Dosage 2002 00:00:00 Completed [facility] Hep B, Adol or Pedi Dosage 2002 00:00:00 Completed [facility] Vital Signs Vital Name Observation Time Observation Value Comments S ource Systolic blood pressure 2023-05-03 12:17:00 101 mm[Hg] [place] [facility] Diastolic blood pressure 2023-05-03 12:17:00 59 mm[Hg] [place] [facility] Heart rate 2023-05-03 12:17:00 68 [facility] 2023-05-03 12:17:00 36.22 [place] [facility] Respiratory rate 2023-05-03 12:17:00 18 /min [facility] Oxygen saturation in Arterial blood by Pulse oximetry 2023-05-03 12:17:00 96 /min [facility] Body weight 2023-05-03 08:19:00 70.126 kg [facility] BMI 2023-05-03 08:19:00 28.28 kg/m2 [facility] Body height 2023-05-02 08:25:00 157.5 cm [facility] Systolic blood pressure 2023-05-02 18:25:00 97 mm[Hg] [facility] Diastolic blood pressure 2023-05-02 18:25:00 60 mm[Hg] [facility] Heart rate 2023-05-02 18:25:00 59 /min [facility] Body temperature 2023-05-02 18:25:00 36.11 [facility] Respiratory rate 2023-05-02 18:25:00 18 /min [facility] Oxygen saturation in Arterial blood by Pulse oximetry 2023-05-02 18:25:00 100 /min [facility] Body height 2023-05-02 08:25:00 157.5 cm [facility] Body weight 2023-05-02 08:25:00 69.037 kg [facility] BMI 2023-05-02 08:25:00 28.28 kg/m2 [facility] Systolic blood pressure 2022-10-17 20:18:00 99 mm[Hg] [facility] Diastolic blood pressure 2022-10-17 20:18:00 63 mm[Hg] [facility] Body temperature 2022-10-17 20:18:00 36.78 [place] Respiratory rate 2022-10-17 20:18:00 16 /min [facility] Heart rate 2022-10-17 19:56:00 92 /min [facility] Body height 2022-10-17 19:56:00 157.5 cm [facility] Body weight 2022-10-17 19:56:00 71.668 kg [facility] BMI 2022-10-17 19:56:00 28.90 kg/m2 [facility] Oxygen saturation in Arterial blood by Pulse oximetry 2022-10-17 19:56:00 99 /min [facility] Procedures Procedure Date / Time Performed Performing Clinician Source CBC WITH DIFF 2023-05-03 11:31:00 [facility] CBC WITH DIFF 2023-05-03 11:31:00 Celso [facility] LAPAROSCOPIC APPENDECTOMY 2023-05-02 15:50:00 Miles, [facility] LAPAROSCOPIC APPENDECTOMY 2023-05-02 15:50:00 Miles, [facility] POCT TEST 2023-05-02 15:31:00 Miles, [facility] POCT TEST 2023-05-02 15:31:00 Miles, [facility] MAGNESIUM 2023-05-02 10:15:00 Phill Roman [facility] HEPATIC FUNCTION PANEL ([id number]) (ALB,T.PRO,BILI T,BU/BC,ALT,AST,ALK PHOS) 2023-05-02 10:15:00 Phill Roman [facility] BASIC METABOLIC PANEL (NA, K, CL, CO2, GLUCOSE, BUN, CREATININE, CA) 2023-05-02 10:15:00 Phill Roman [facility] CBC WITH DIFF 2023-05-02 10:15:00 [facility] 2023-05-02 10:15:00 Phill Roman [facility] HEPATIC FUNCTION PANEL ([id number]) (ALB,T.PRO,BILI T,BU/BC,ALT,AST,ALK PHOS) 2023-05-02 10:15:00 Phill Roman [facility] BASIC METABOLIC PANEL (NA, K, CL, CO2, GLUCOSE, BUN, CREATININE, CA) 2023-05-02 10:15:00 Phill Roman [facility] CBC WITH DIFF 2023-05-02 10:15:[address] [facility] [id number] 2022-10-31 00:00:00 MAX[facility] [id number] 2022-10-30 00:00:00 MAX[facility] [id number] 2021-03-26 00:00:00 [facility] [id number] 2021-03-26 00:00:00 MAXBA [facility] Encounters Start Date/Time End Date/Time Encounter Type Admission Type Attending Clinicians Care Facility Care Department Encounter ID Source 2022-10-17 17:56:29 Outpatient X [facility] [id number] [facility] 2021-05-19 04:10:53 Outpatient X [facility] [id number] [facility] 2021-05-19 04:10:48 Emergency [facility] [id number] [facility] 2021-05-18 12:59:52 Emergency [facility] [id number] [facility] 2021-05-18 03:01:47 Emergency [facility] [id number] [facility] 2020-11-23 00:57:29 Inpatient Brittnee Ramirez [facility] [id number] [facility] 2020-10-05 01:43:54 Inpatient HCACL [facility]L [id number] [facility] 2020-08-22 20:18:00 Inpatient HCACL KAELA [id number] [facility] 2020-02-15 22:49:00 Inpatient [facility] KAELA [id number] [facility] 2023-08-23 13:00:00 2023-08-23 13:00:00 Outpatient MADHAVI MCNAIR [facility] [id number] [facility] 2023-05-24 13:00:00 2023-05-24 13:00:00 Outpatient MERT HOUSE [place] [facility] [id number] [facility] 2023-05-02 03:19:00 2023-05-03 12:20:00 Outpatient U PHILL ROMAN [facility] [id number] [facility] 2023-05-02 03:19:00 2023-05-03 12:20:00 Hospital Encounter Phill Roman [facility] [id number] [id number] [id number] [facility] 2023-05-02 11:24:00 2023-05-02 13:33:00 Surgery Mert Miles [facility] [place] [id number] 350.1.13.10 [id number] [id number] [facility] 2022-10-30 19:17:00 2022-11-02 18:53:00 Inpatient EL Patrica, Luis HCACL OBPP [id number] [facility] 2022-10-17 14:59:00 2022-10-17 17:00:00 Outpatient X SUZY URIOSTEGUI [facility] [id number] [facility] 2022-10-17 14:59:00 2022-10-17 17:00:00 Emergency Saturninoemily Suzy [facility] [id number] [id number] [id number] [facility] 2022-09-26 22:39:00 2022-09-27 17:00:00 Inpatient EM Maximashleigh, Luis HCACL OBANTE [id number] [facility] 2022-09-07 23:59:00 2022-09-14 10:45:00 Inpatient EM Maximashleigh, Luis [facility]ACL OBANTE [id number] [facility] 2022-08-03 15:04:00 2022-08-03 16:59:00 Emergency EM Effie Ramsay [facility] OLGA [id number] [facility] 2022-03-20 14:10:00 2022-03-20 14:10:00 Outpatient ANTONIA CAPPS [facility] [id number] [facility] 2022-03-20 00:00:00 2022-03-20 00:00:00 Telephone Antonia [facility] 1.114 350.1.13.10 4.2.7.2.686 [id number] [facility] 2022-03-16 14:10:00 2022-03-16 14:10:00 Outpatient ANTONIA CAPPS [facility] [id number] [facility] 2022-03-13 13:30:00 2022-03-13 13:30:00 Outpatient ANTONIA CAPPS [facility] [id number] [facility] 2022-03-13 11:10:00 2022-03-13 11:10:00 Outpatient Dao PIKE [facility] [id number] [facility] 2022-03-06 15:06:00 2022-03-06 16:12:00 Emergency EM Darshancandynatanael Ghanshyam HCACL AERS [id number] [facility] 2022-03-04 00:00:00 2022-03-04 00:00:00 Telephone Antonia Pike [facility] 1..114 350.1.13.10 [id number] [id number] [facility] 2022-03-03 00:00:00 2022-03-03 00:00:00 Telephone Antonia Pike [facility] 1..114 350.1.13.10 4.2.7.2.686 [id number] [facility] 2022-03-02 17:43:24 2022-03-02 23:59:00 Outpatient R ANTONIA PIKE [facility] [id number] [facility] 2022-03-02 17:43:24 2022-03-02 23:59:00 Outpatient R ANTONIA PIKE [facility] [id number] [facility] 2022-03-02 17:30:00 2022-03-02 23:59:00 Hospital Encounter Antonia Pike [facility] 1.0.114 350.1.13.10 4.2.7.2.686 [id number] [facility] 2022-02-26 14:50:00 2022-02-26 15:10:00 Nurse Visit Nurse, Frederick Miller [facility] 1.0.114 350.1.13.10 4.2.7.2.686 [id number] [facility] 2022-02-26 14:50:00 2022-02-26 14:50:00 Outpatient FREDERICK CORRAL [facility] [id number] [facility] 2022-02-25 14:45:00 2022-02-25 23:59:00 Hospital Encounter Antonia Pike [facility] 1.0.114 350.1.13.10 4.2.7.2.686 [id number] [facility] 2022-02-25 14:45:00 2022-02-25 23:59:00 Outpatient R PIKEANTONIA ASHER [facility] [id number] [facility] 2022-02-25 13:50:00 2022-02-25 15:29:57 Outpatient R ANTONIA PIKE [facility] [id number] [facility] 2022-02-25 13:50:00 2022-02-25 15:29:57 Office Visit Antonia Pike [facility] 1.114 350.1.13.10 [id number] [id number] [facility] 2022-02-23 15:50:00 2022-02-23 15:50:00 Outpatient R ANTONIA PIKE [facility] [id number] [facility] 2022-02-12 21:31:00 2022-02-12 22:34:00 Emergency X DEBRA AULTMAN [facility] E[facility] [id number] [facility] 2022-02-12 21:31:00 2022-02-12 22:34:00 Emergency Debra [facility] 1..114 350.1.13.10 [id number] [id number] [facility] 2021-11-11 00:16:00 2021-11-11 00:55:00 Emergency [facility] [id number] [facility] 2021-11-04 15:30:00 2021-11-04 15:30:00 Outpatient R ELINA ROME [facility] [id number] [facility] 2021-08-08 22:06:00 2021-08-08 22:30:00 Emergency EM Ghanshyam Chavez [facility] AERS [id number] [facility] 2021-06-13 00:00:00 2021-06-13 00:00:00 Refill Madhavi Roman [facility] 1.114 350.1.13.10 4.2.7.2.686 [id number] [facility] 2021-05-12 13:41:54 2021-05-12 14:13:40 Office Visit Madhavi Roman [facility] 1.114 350.1.13.10 4.2.7.2.686 [id number] [facility] 2021-05-12 13:30:00 2021-05-12 13:30:00 Outpatient MADHAVI MCNAIR [facility] [id number] Cynthia joy [facility] 2021-03-25 14:56:00 2021-03-28 15:32:00 Inpatient EL Luis Burciaga [facility] OBPP [id number] [facility] 2021-03-12 21:07:00 2021-03-13 01:05:00 Emergency EM Effie Solitario [facility] [id number] 24 [facility] 2021-03-01 05:33:00 2021-03-01 09:00:00 Emergency EM Luis Burciaga [facility] [id number] 85 [facility] 2021-02-17 15:17:00 2021-02-17 16:47:00 Emergency EM Effie Solitario [facility] [id number] 82 [facility] 2021-02-12 19:14:00 2021-02-12 22:29:00 Emergency EM Effie Solitario [facility] [id number] 18 [facility] 2021-01-29 02:30:00 2021-01-29 03:50:00 Emergency EM Dottie Chavez [facility] [id number] 33 [facility] 2021-01-13 01:18:00 2021-01-13 02:30:00 Emergency CacNabil de la cruzroseanne Khan [facility] 1.2.840.114 350.1.13.10 4.2.7.2.686 [id number] [facility] 2021-01-13 01:18:00 2021-01-13 02:30:00 Emergency CacNathalia de la cruz Tsering Khan [facility] 1.2.840.114 350.1.13.10 4.2.7.2.686 [id number] 2021-01-11 17:51:24 2021-01-11 18:25:45 Urgent Care Aneta Aguayo Unknown, Attending [facility] 1..114 350.1.13.10 4.2.7.2.686 [id number] 370 [id number] [facility] 2021-01-11 17:51:24 2021-01-11 18:25:45 Urgent Care Aneta Aguayo [facility] 1.114 350.1.13.10 4.2.7.2.686 [id number] 370 [id number] 2021-01-11 18:00:00 2021-01-11 18:00:00 Outpatient R UNKNOWN, ATTENDING [facility] [id number] [facility] 2020-12-25 15:08:00 2020-12-25 18:26:00 Emergency EM [facility] [id number] 03 [facility] 2020-11-23 00:02:00 2020-11-23 02:58:00 Emergency EM Brittnee Ramirez [facility] [id number] 52 [facility] 2020-11-01 00:00:00 2020-11-01 00:00:00 Letter (Out) [facility] 1.114 350.1.13.10 4.2.7.2.686 [id number] 019 [id number] [facility] 2020-11-01 00:00:00 2020-11-01 00:00:00 Letter (Out) [facility] 1..114 350.1.13.10 4.2.7.2.686 [id number] 019 [id number] 2020-10-30 22:11:00 2020-10-31 00:46:00 Emergency Lily Last [facility] 1.2.840.114 350.1.13.10 4.2.7.2.686 [id number] 084 [id number] [facility] 2020-10-30 22:11:00 2020-10-31 00:46:00 Emergency Lily Last [facility] 1.2.840.114 350.1.13.10 4.2.7.2.686 [id number] [id number] 2020-10-26 18:33:25 2020-10-26 19:03:11 Urgent Care Aneta Aguayo, Attending [facility] 1.2.840.114 350.1.13.10 4.2.7.2.686 [id number] 370 [id number] [facility] 2020-10-26 18:33:25 2020-10-26 19:03:11 Urgent Care Aneta Aguayo [facility] 1.2.840.114 350.1.13.10 4.2.7.2.686 [id number] 370 [id number] 2020-10-26 19:00:00 2020-10-26 19:00:00 Outpatient R UNKNOWN, ATTENDING [facility] [id number] [facility] 2020-09-18 23:47:00 2020-09-19 01:47:00 Emergency Lydia Bojorquez [facility] 1.2840.114 350.1.13.10 4.2.7.2.686 [id number] 084 [id number] [facility] 2020-09-18 23:47:00 2020-09-19 01:47:00 Emergency Lydia Bojorquez [facility] 1.2.840.114 350.1.13.10 4.2.7.2.686 [id number] [id number] 2020-09-18 00:00:00 2020-09-18 00:00:00 Orders Only Doctor Unassigned, Tomas De Castro [facility] 1.2.840.114 350.1.13.10 4.2.7.2.686 [id number] 009 [id number] [facility] 2020-09-18 00:00:00 2020-09-18 00:00:00 Orders Only Doctor Unassigned, Tomas De Castro [facility] 1.2.840.114 350.1.13.10 4.2.7.2.686 [id number] [id number] 2020-08-22 15:52:31 2020-08-22 16:12:31 Office Visit Madhavi [facility] 1.2.840.114 350.1.13.10 4.2.7.2.686 [id number] [facility] 2020-08-22 15:52:31 2020-08-22 16:12:31 Office Visit Madhavi Roman [facility] 1.2.840.114 350.1.13.10 4.2.7.2.686 [id number] 2020-08-22 16:00:00 2020-08-22 16:00:00 Outpatient MADHAVI MCNAIR [facility] [id number] [facility] 2020-08-22 13:40:00 2020-08-22 13:40:00 Outpatient MADHAVI MCNAIR [facility] [id number] [facility] 2020-08-13 00:00:00 2020-08-13 00:00:00 Telephone DestinyLiberty [facility] 1.2.840.114 350.1.13.10 4.2.7.2.686 [id number] 225 [id number] [facility] 2020-08-09 00:00:00 2020-08-09 00:00:00 Telephone [place] [facility] 1.2.840.114 350.1.13.10 4.2.7.2.686 [id number] 225 [id number] [facility] 2020-08-09 00:00:00 2020-08-09 00:00:00 Telephone [place] [facility] 1..114 350.1.13.10 4.2.7.2.686 [id number] 370 [id number] [facility] 2020-08-08 14:46:51 2020-08-08 16:51:17 Office Visit [place] [facility] 1..114 350.1.13.10 4.2.7.2.686 [id number] 225 [id number] [facility] 2020-08-08 15:00:00 2020-08-08 15:00:00 Outpatient R LIBERTY CAMP [facility] [id number] [facility] 2020-07-03 00:00:00 2020-07-03 00:00:00 Orders Only Doctor Unassigned, Tomas De Castro [facility] 1..114 350.1.13.10 4.2.7.2.686 [id number] 009 [id number] [facility] 2020-06-17 13:35:31 2020-06-17 14:15:17 Office Visit Antonia Swain [facility] 1.114 350.1.13.10 4.2.7.2.686 [id number] [facility] 2020-06-17 13:40:00 2020-06-17 13:40:00 Outpatient ELINA FORMAN [facility] [id number] [facility] 2020-05-18 00:00:00 2020-05-18 00:00:00 Kassidy Morris [facility] 1.114 350.1.13.10 4.2.7.2.686 [id number] 225 [id number] [facility] 2020-05-14 00:00:00 2020-05-14 00:00:00 Telephone Elina Rome [facility] 1..114 350.1.13.10 4.2.7.2.686 [id number] 225 [id number] [facility] 2020-05-06 00:00:00 2020-05-06 00:00:00 Telephone Elina Rome [facility] 1..114 350.1.13.10 4.2.7.2.686 [id number] 225 [id number] [facility] 2020-04-26 15:36:43 2020-04-26 15:56:43 Office Visit Kassidy Arenas [facility] 1.114 350.1.13.10 4.2.7.2.686 [id number] 225 [id number] [facility] 2020-04-26 15:40:00 2020-04-26 15:40:00 Outpatient KASSIDY BOONE [facility] [id number] [facility] 2020-04-15 00:00:00 2020-04-15 00:00:00 [facility] 1.114 350.1.13.10 4.2.7.2.686 [id number] 225 [id number] [facility] 2020-01-03 14:40:00 2020-01-03 14:40:00 Outpatient REJI EVANS [facility] [id number] [facility] 2019-10-27 00:00:00 2019-10-27 00:00:00 Telephone Aiden Co[facility] 1.114 350.1.13.10 4.2.7.2.686 [id number] 225 [id number] [facility] 2019-10-18 23:49:28 2019-10-19 02:20:00 Emergency X SOSA ADAMES [facility] ERT [id number] [facility] 2019-10-18 23:49:28 2019-10-19 02:20:00 Emergency Sosa Adames [facility] 1.2.840.114 350.1.13.10 4.2.7.2.686 [id number] [id number] [facility] 2019-10-18 00:00:00 2019-10-18 00:00:00 Nurse Triage Sandra Henderson [facility] 1.2.840.114 350.1.13.10 4.2.7.2.686 [id number] [id number] [facility] 2019-10-09 00:00:00 2019-10-09 00:00:00 Telephone Aiden Co[facility] 1.2.840.114 350.1.13.10 4.2.7.2.686 [id number] 225 [id number] [facility] 2019-09-21 13:27:07 2019-09-21 17:09:32 Office Visit [place] [facility] 1.2840.114 350.1.13.10 4.2.7.2.686 [id number] 225 [id number] [facility] 2019-09-21 13:40:00 2019-09-21 13:40:00 Outpatient R LIBERTY CAMP [facility] [id number] [facility] 2019-08-30 15:01:37 2019-08-30 15:11:37 Office Visit Antonia Pike [facility] 1.2.840.114 350.1.13.10 4.2.7.2.686 [id number] 225 [id number] [facility] 2019-08-22 15:33:37 2019-08-22 15:43:37 Office Visit Aiden Cooney [facility] 1.2.840.114 350.1.13.10 4.2.7.2.686 [id number] 225 [id number] [facility] 2019-08-21 09:14:31 2019-08-21 10:35:00 Emergency Ashley Avendano [facility] 1.2.840.114 350.1.13.10 4.2.7.2.686 [id number] 084 [id number] [facility] 2019-08-10 11:01:47 2019-08-10 11:21:47 Nurse Visit NurseOsvaldo Maria P Alvin [facility] 1.2.840.114 350.1.13.10 4.2.7.2.686 [id number] 314 [id number] [facility] 2019-08-09 09:22:22 2019-08-09 12:41:52 Office Visit Antonia Pike [facility] 1.2.840.114 350.1.13.10 4.2.7.2.686 [id number] 225 [id number] [facility] 2019-08-09 00:00:00 2019-08-09 00:00:00 Orders Only Antonia Pike [facility] 1.2.840.114 350.1.13.10 4.2.7.2.686 [id number] 009 [id number] [facility] 2019-07-28 00:00:00 2019-07-28 00:00:00 Orders Only Doctor Unassigned, Tomas De Castro [facility] 1.2.840.114 350.1.13.10 4.2.7.2.686 [id number] 009 [id number] [facility] 2019-03-30 12:55:51 2019-03-30 13:15:51 Office Visit Kassidy Arenas [facility] 1.2.840.114 350.1.13.10 4.2.7.2.686 [id number] 225 [id number] [facility] 2019-03-29 00:00:00 2019-03-29 00:00:00 Telephone Rajan Elina Torresanuel [facility] 1.2.840.114 350.1.13.10 4.2.7.2.686 [id number] 225 [id number] [facility] 2019-03-27 09:41:28 2019-03-27 09:51:28 Office Visit Ivet Aiden Elton [facility] 1.2.840.114 350.1.13.10 4.2.7.2.686 [id number] 225 [id number] [facility] 2019-03-22 15:41:22 2019-03-22 23:59:00 Hospital Encounter IvetAiden Elton [facility] 1.2.840.114 350.1.13.10 4.2.7.2.686 [id number] [facility] 2019-03-21 15:31:39 2019-03-22 09:26:38 Office Visit Mike Heard Aiden Elton [facility] 1.2.840.114 350.1.13.10 4.2.7.2.686 [id number] 225 [id number] [facility] 2019-03-08 09:03:07 2019-03-08 09:13:07 Office Visit Ivet Aiden Elton [facility] 1.2.840.114 350.1.13.10 4.2.7.2.686 [id number] 225 [id number] [facility] 2019-03-03 10:38:58 2019-03-03 11:09:50 Office Visit IvetAiden Elton [facility] 1.2.840.114 350.1.13.10 4.2.7.2.686 [id number] 225 [id number] [facility] 2019-02-10 15:44:39 2019-02-10 23:59:00 Hospital Encounter Vonnie johnson [facility] 1.2.840.114 350.1.13.10 4.2.7.2.686 [id number] 800 [id number] [facility] 2019-02-10 08:00:00 2019-02-10 15:43:00 Hospital Encounter Vonnie johnson [facility] 1.2.840.114 350.1.13.10 4.2.7.2.686 [id number] 800 [id number] [facility] Results Test Description Test Time Test Comments Results Result Co mments Source [facility] WITH [id number] 11:43:20* Test Item Value Reference Range Interpretation [...] 32.0 g/dL 31.6-35.1 RDW-SD (test code = 10106-7) 47.8 fL 39.0-49.9 RDW-CV (test code = 788-0) 14.8 % 12.0-15.5 PLT (test code = 777-3) 282 See_Comment [Automated messa ge] The system which generated this result transmitted reference range: 166 - 358 10*3/?L. The reference range was not used to interpret this result as normal/abnormal. MPV (test code = 60367-5) 10.6 fL 9.5-12.9 NRBC/100 WBC (test code = 6163556029) 0.0 See_Comment [Automated me ssage] The system which generated this result transmitted reference range: 0.0 - 10.0 /100 WBCs. The reference range was not used to interpret this result as normal/abnormal. NRBC x10^3 (test code = 3092361220) See_Comment [Automated messa ge] The system which generated this result transmitted reference range: 10*3/?L. The reference range was not used to interpret this result as normal/abnormal. GRAN MAT (NEUT) % (test code = 770-8) 51.7 % IMM GRAN % (test code = 5059547477) 0.20 % LYMPH % (test code = 736-9) 40.7 % MONO % (test code = 5905-5) 6.6 % EOS % (test code = 713-8) 0.4 % BASO % (test code = 706-2) 0.4 % GRAN MAT x10^3(ANC) (test code = 1227510602) 4.76 10*3/uL 1.88-7.09 IMM GRAN x10^3 (test code = 2895776966) 0.00-0.06 LYMPH x10^3 (test code = 731-0) 3.76 10*3/uL 1.32-3.29 H MONO x10^3 (test code = 742-7) 0.61 10*3/uL 0.33-0.92 EOS x10^3 (test code = 711-2) 0.04 10*3/uL 0.03-0.39 BASO x10^3 (test code = 704-7) 0.04 10*3/uL 0.01-0.07 Lab Interpretation (test code = 86801-3) Abnormal [facility] [id number] 15:31:00* Test Item Value Reference Range Interpretation Comme nts POCT PREG (test code = 1605) Negative On board controls acceptable with C Line (test code = 3574) Yes POCT PREG LOT # (test code = 3575) POCT PREG TEST DATE ( test code = 3576) [id number] 15:31:00* Test Item Value Reference Range Interpretation Comme nts POCT PREG (test code = 1605) Negative On board controls acceptable with C Line (test code = 3574) Yes POCT PREG LOT # (test code = 3575) POCT PREG TEST DATE ( test code = 3576) [facility] [id number] 11:21:25* Test Item Value Reference Range Interpretation Comme nts MAGNESIUM (test code = 6033612081) 2.2 mg/dL 1.7-2.4 Lab Interpretation (test cod e = 15135-6) Normal [facility] [id number] 11:21:25* Test Item Value Reference Range Interpretation Comme nts MAGNESIUM (test code = 4351388697) 2.2 mg/dL 1.7-2.4 Lab Interpretation (test cod e = 48124-0) Normal [facility] METABOLIC PANEL (NA, K, CL, CO2, GLUCOSE, BUN, CREATININE, CA)2023-05-02 11:21:05* Test Item Value Reference Range Interpretation Comme nts NA (test code = 8721722898) 138 mmol/L 135-145 K (test code = 7962712853) 3.8 mmol/L 3.5-5.0 CL (test code = 8317254529) 102 mmol/L 98-108 CO2 TOTAL (test code = 1526860767) 22 mmol/L 23-31 L AGAP (test code = 7719880421) 14 2-16 BUN (test code = 3247128885) 21 mg/dL 7-23 GLUCOSE (test code = 5314674021) 88 mg/dL 70-110 CREATININE (test code = 5992849556) 0.65 mg/dL 0.50-1.04 CALCIUM (test code = 6557722104) 9.3 mg/dL 8.6-10.6 eGFR (test code = 3288850639) 116.2 mL/min/1.73m2 RADHA (test code = RADHA) [...] imaging tests). Lab Interpretation (test code = 26706-6) [facility] (ALB,T.PRO,BILI T,BU/BC,ALT,AST,ALK PHOS)2023-05-02 11:21:05* Test Item Value Reference Range Interpretation Comme nts TOTAL BILI (test code = 5692162571) 0.3 mg/dL 0.1-1.1 BILI UNCON (test code = 5316637079) 0.2 mg/dL 0.1-1.1 BILI CONJ (test code = 7679848833) 0.0 mg/dL 0.0-0.3 T PROTEIN (test code = 1147602276) 7.6 g/dL 6.3-8.2 ALBUMIN (test code = 5640866145) 4.4 g/dL 3.5-5.0 ALK PHOS (test code = 2407952100) 72 U/L 34-122 ALTv (test code = 1742-6) 13 U/L 5-35 AST(SGOT) (test code = 3751498908) 17 U/L 13-40 Lab Interpretation (test cod e = 37409-4) Normal [facility] METABOLIC PANEL (NA, K, CL, CO2, GLUCOSE, BUN, CREATININE, CA)2023-05-02 11:21:05* Test Item Value Reference Range Interpretation Comme nts NA (test code = 8454950226) 138 mmol/L 135-145 K (test code = 0219706592) 3.8 mmol/L 3.5-5.0 CL (test code = 3934351373) 102 mmol/L 98-108 CO2 TOTAL (test code = 4526083093) 22 mmol/L 23-31 L AGAP (test code = 1187295237) 14 2-16 BUN (test code = 2317656278) 21 mg/dL 7-23 GLUCOSE (test code = 6971323607) 88 mg/dL 70-110 CREATININE (test code = 8850306045) 0.65 mg/dL 0.50-1.04 CALCIUM (test code = 5438813346) 9.3 mg/dL 8.6-10.6 eGFR (test code = 1310974877) 116.2 mL/min/1.73m2 RADHA (test code = RADHA) [...] imaging tests). Lab Interpretation (test code = 20506-7) [facility]normal [facility]86[facility] (ALB,T.PRO,BILI T,BU/BC,ALT,AST,ALK PHOS)2023-05-02 11:21:05* Test Item Value Reference Range Interpretation Comme nts TOTAL BILI (test code = 2799378047) 0.3 mg/dL 0.1-1.1 BILI UNCON (test code = 1526390659) 0.2 mg/dL 0.1-1.1 BILI CONJ (test code = 1128517293) 0.0 mg/dL 0.0-0.3 T PROTEIN (test code = 5598031166) 7.6 g/dL 6.3-8.2 ALBUMIN (test code = 1655257259) 4.4 g/dL 3.5-5.0 ALK PHOS (test code = 6969806036) 72 U/L 34-122 ALTv (test code = 1742-6) 13 U/L 5-35 AST(SGOT) (test code = 1519994953) 17 U/L 13-40 Lab Interpretation (test cod e = 90820-4) Normal [facility] [id number] 10:46:23* Test Item Value Reference Range Interpretation Comme nts WBC (test code = 6690-2) 7.54 See_Comment [Automated [employer] Smart[employer]] The system which generated this result transmitted reference range: 4.30 - 11.10 10*3/?L. The reference range was not used to interpret this result as normal/abnormal. RBC (test code = 789-8) 4.05 See_Comment [Automated [employer]ch] The system which generated this result transmitted [...] 32.3 g/dL 31.6-35.1 RDW-SD (test code = 94199-7) 46.6 fL 39.0-49.9 RDW-CV (test code = 788-0) 14.7 % 12.0-15.5 PLT (test code = 777-3) 283 See_Comment [Automated messa ge] The system which generated this result transmitted reference range: 166 - 358 10*3/?L. The reference range was not used to interpret this result as normal/abnormal. MPV (test code = 06113-4) 10.5 fL 9.5-12.9 NRBC/100 WBC (test code = 6566716543) 0.0 See_Comment [Automated Eved ssage] The system which generated this result transmitted reference range: 0.0 - 10.0 /100 WBCs. The reference range was not used to interpret this result as normal/abnormal. NRBC x10^3 (test code = 2380275674) See_Comment [Automated messa ge] The system which generated this result transmitted reference range: 10*3/?L. The reference range was not used to interpret this result as normal/abnormal. GRAN MAT (NEUT) % (test code = 770-8) 40.7 % IMM GRAN % (test code = 7859200814) 0.10 % LYMPH % (test code = 736-9) 48.4 % MONO % (test code = 5905-5) 8.8 % EOS % (test code = 713-8) 1.3 % BASO % (test code = 706-2) 0.7 % GRAN MAT x10^3(ANC) (test code = 0856309313) 3.07 10*3/uL 1.88-7.09 IMM GRAN x10^3 (test code = 7932537292) 0.00-0.06 LYMPH x10^3 (test code = 731-0) 3.65 10*3/uL 1.32-3.29 H MONO x10^3 (test code = 742-7) 0.66 10*3/uL 0.33-0.92 EOS x10^3 (test code = 711-2) 0.10 10*3/uL 0.03-0.39 BASO x10^3 (test code = 704-7) 0.05 10*3/uL 0.01-0.07 Lab Interpretation (test code = 17084-3) Abnormal [facility] with Epegypsouyez7151-13-04 10:46:23* Test Item Value Reference Range Interpretation Comme nts WBC (test code = 6690-2) 7.54 See_Comment [Automated Quua ge] The system which generated this result transmitted reference range: 4.30 - 11.10 10*3/?L. The reference range was not used to interpret this result as normal/abnormal. RBC (test code = 789-8) 4.05 See_Comment [Automated Quua ge] The system which generated this result [...] 32.3 g/dL 31.6-35.1 RDW-SD (test code = 46097-1) 46.6 fL 39.0-49.9 RDW-CV (test code = 788-0) 14.7 % 12.0-15.5 PLT (test code = 777-3) 283 See_Comment [Automated Quua ge] The system which generated this result transmitted reference range: 166 - 358 10*3/?L. The reference range was not used to interpret this result as normal/abnormal. MPV (test code = 88857-5) 10.5 fL 9.5-12.9 NRBC/100 WBC (test code = 8683642905) 0.0 See_Comment [Automated me ssage] The system which generated this result transmitted reference range: 0.0 - 10.0 /100 WBCs. The reference range was not used to interpret this result as normal/abnormal. NRBC x10^3 (test code = 0121392016) See_Comment [Automated messa ge] The system which generated this result transmitted reference range: 10*3/?L. The reference range was not used to interpret this result as normal/abnormal. GRAN MAT (NEUT) % (test code = 770-8) 40.7 % IMM GRAN % (test code = 3183580159) 0.10 % LYMPH % (test code = 736-9) 48.4 % MONO % (test code = 5905-5) 8.8 % EOS % (test code = 713-8) 1.3 % BASO % (test code = 706-2) 0.7 % GRAN MAT x10^3(ANC) (test code = 6437448422) 3.07 10*3/uL 1.88-7.09 IMM GRAN x10^3 (test code = 4659437760) 0.00-0.06 LYMPH x10^3 (test code = 731-0) 3.65 10*3/uL 1.32-3.29 H MONO x10^3 (test code = 742-7) 0.66 10*3/uL 0.33-0.92 EOS x10^3 (test code = 711-2) 0.10 10*3/uL 0.03-0.39 BASO x10^3 (test code = 704-7) 0.05 10*3/uL 0.01-0.07 Lab Interpretation (test code = 48420-5) [facility] Test Item Value Reference Range Interpretation Comme nts SURGICAL (test code = SR) R UN DATE: 11/03/22 [place] - LAB PAGE 1 RUN TIME: 1409 Specimen Inquiry RUN USER: INTERFACE P ATIENT: LUIS EDMONDS LOC: [facility] U #: [id number] AGE/SX: 21/F ROOM: [facility] RE10/30/22REG DR: Luis Burciaga MD : 02 BED: 1 DIS: 11/02/22 STATUS: DIS IN TLOC: SPEC #: [id number] RECD: 11/02/22 STATUS: GLENN REGreta #: [id number] SLOAN: 10/31/22- SUBM DR: Luis Burciaga MD ENTERED: 11/02/22 SP TYPE: SURGICAL OTHR DR: ORDERED: [id number], ANATOMIC SPEC PROCEDURES: 72341 (11/02/22) TISSUES: A. PLACENTA, THIRD TRIMESTER (28 + WEEKS) CLINICAL HISTORY SAME, DELIVERED FINAL DIAGNOSIS Placenta: Third trimester placenta with acute chorionitis, deciduitis; 713 g (expected bpwd503 g); trivascular umbilical cord without significant inflammation.. [...] weighs 713 g. Technical component performed at [facility],[address] [place] [address], [place] [address] Unless gross only, the diagnosis is based [...] 11/03/22 1408 END OF REPORT CBC W/AUTO [id number] 07:54:00* Test Item Value Reference Range Interpretation [...] c ode = MDIFF) NO RAPID PLASMA [id number] 11:50:00* Test Item Value Reference Range Interpretation Comme nts RAPID PLASMA REAGIN (test co de = RPR) NONREACTIVE NONREACTIVE AG HEPATITIS B [id number] 11:50:00* Test Item Value Reference Range Interpretation Comme nts AG HEPATITIS B SURFACE (test code = HBSAG) NON REACTIVE INDEX NonReactive AB HIV 1 11:50:00* Test Item Value Reference Range Interpretation Comme nts AB HIV 1 2 (test code = RQW26XC) Nonreactive Nonreactive CBC W/AUTO [id number] 19:59:00* Test Item Value Reference Range Interpretation [...] c ode = MDIFF) NO AMNISURE (ROM) [id number] 18:12:00* Test Item Value Reference Range Interpretation Comme nts AMNISURE (ROM) TEST (test co de = AMNI) POSITIVE NEGATIVE A AMNISURE (ROM) [id number] 21:41:00* Test Item Value Reference Range Interpretation Comme nts AMNISURE (ROM) TEST (test co de = AMNI) NEGATIVE NEGATIVE [id number] 20:11:00* Test Item Value Reference Range Interpretation Comme nts FIBRONECTIN (test code = FFN) POSITIVE NEGATIVE A UA RFLX MICR CULT IF [id number] 20:11:00* Test Item Value Reference Range Interpretation [...] PainSpecimen Description: CLEAN CATCHDRUGS OF ABUSE SCREEN [id number] 20:10:00* Test Item Value Reference Range Interpretation [...] used for non-medical purposes. - [place] BIOPH[employer] [id number] 00:00:00 [facility] MADELINE COFFMANName: BI EDMONDS : 2000 Sex: F Name: BI EDMONDS [facility] [place] : 2000 Age/S: 21 / F [address] [place] [address] Unit #: [id number] Loc: [facility] [id number] Phys: Zoila Gomez DO Acct: [id number] Dis Date: Status: REG ER PHONE #: [phone] Exam Date: 09/26/20222004 FAX #: [phone] Reason: decreased FM EXAMS: CPT CODE: [id number] US BIOPHYS PROF 06948 PROCEDURE INFORMATION: Exam: US Biophysical Profile Without Non-Stress Test Exam date and time: 09/26/2022 7:49 PM Age: 21 years old Clinical indication: Pain indication: Abdominal pain; ; Additional info: Decreased fm TECHNIQUE: Imaging protocol: US biophysical profile without non-stress testing. COMPARISON: US FET BIO PH SC W/O NST 09/07/2022 11:03 PM A limited [...] PAGE 1 Signed Report- US PREG AFTER [id number] 00:00:00 [facility] : 2000 Sex: F Name: BI EDMONDS [facility] : 2000 Age/S: 21 / F [address] [place] [address] Unit #: [id number] Loc: [place] [address] Phys: Zoila Gomez DO Acct: [id number] Dis Date: Status: REG ER PHONE #: [phone] Exam Date: 09/26/20222004 FAX #: [phone] Reason: PTL EXAMS: CPT CODE: [id number] US PREG AFTER TRI 23573 PROCEDURE INFORMATION: Exam: US After First Trimester, [...] 1 Signed Report (CONTINUED) Name: BI EDMONDS [facility] : 2000 Age/S: 21 / F [address] [place] [address] Unit #: [id number] Loc: [place], [place] [address]Czay: Zoila Gomez DO Acct: [id number] Dis Date: Status: REG ER PHONE #: [phone] Exam Date: 09/26/20222004 FAX #: [phone] Reason: PTL EXAMS: CPT CODE: [id number] US PREG AFTER 1ST TRI 36313 (Continued) movement: 2. breathin Amniotic fluid: 2 Total score 8/8 IMPRESSION: 1. Single viable intrauterine gestation in cephalic presentation. 2. Normal growth concordant with dates. 3. Normal biophysical profile. at 2117 Reported and signed by: Jeromy Wolfe M.D. CC: Zoila Gomez DO Technologist: Josefina Fitch Trnneb Date/Time: 09/26/2022 (2116) [email or web address] Orig Print D/T: S: 09/26/2022 (2116) Probe: PAGE 2 Signed ReportAMNISURE (ROM) [id number] 14:39:00* Test Item Value Reference Range Interpretation Comme nts AMNISURE (ROM) TEST (test co de = AMNI) NEGATIVE NEGATIVE CHLAMYDIA GC DNA BY [id number] 13:07:00* Test Item Value Reference Range Interpretation Comme nts C. TRACHOMATIS DNA BY PCR (test code = CHLAMTDNA) Negative Negative N. GONORRHOEAE DNA BY PCR (test code = NGONORDNA) Negative Negative Performed At: [facility] [address] [id number] Marc Rosales MD Ph:[phone] UA RFLX MICR CULT IF [id number] 21:16:00* Test Item Value Reference Range Interpretation [...] culture: Suprapubic PainSpecimen Description: CLEAN CATCHRAPID PLASMA [id number] 11:04:00* Test Item Value Reference Range Interpretation Comme nts RAPID PLASMA REAGIN (test co de = RPR) NONREACTIVE NONREACTIVE AG HEPATITIS B [id number] 11:04:00* Test Item Value Reference Range Interpretation Comme nts AG HEPATITIS B SURFACE (test code = HBSAG) NON REACTIVE INDEX NonReactive AB HIV 1 11:04:00* Test Item Value Reference Range Interpretation Comme nts AB HIV 1 2 (test code = ZFH12EQ) Nonreactive Nonreactive [id number] 08:05:00* Test Item Value Reference Range Interpretation Comme nts MAGNESIUM (test code = MAG) 4.22 mg/dL 1.80-2.40 HH CBC W/AUTO [id number] 00:08:00* Test Item Value Reference Range Interpretation [...] MDIFF) NO - US FET BIO PH SC W/O [id number] 00:00:00 [facility] : 2000 Sex: F Name: LUIS EDMONDS [facility] : 2000 Age/S: 21 / F [address] [place] [address] Unit #:[id number] Loc: [place] [address] Phys: Juany Carrillo MD Acct: [id number] Dis Date: Status: ADM IN PHONE #: [phone] Exam Date: 09/07/20222315 FAX #: [phone] Reason: IUP@29 wks; Leaking fluid; ROM plus positive EXAMS: CPT CODE: [id number] US FET BIO PH SC W/O NST 28028 PROCEDURE INFORMATION: Exam: US , Limited Exam [...] 11:26 PM PAGE 1 Signed Report(CONTINUED) Name: LUIS EDMONDS [facility] : 2000 Age/S: 21 / F [address] [place] [address] Unit #: [id number] Loc: [place] [address] Phys: Juany Carrillo MD Acct: [id number] Dis Date: Status: ADM IN PHONE #: [phone] Exam Date: 09/07/20222315 FAX #: [phone] Reason: IUP@29wks; Leaking fluid; ROM plus positive EXAMS: CPT CODE: [id number] US FET BIO PH SC W/O NST 98737 (Continued) A limited transabdominal obstetrical ultrasound was [...] (0002) Probe: PAGE 2 Signed Report- US [id number] 00:00:00 [facility] : 2000 Sex: F Name: LUIS EDMONDS [facility] [place] : 2000 Age/S: 21 / F [address] [place] [address] Blvd Unit #: [id number] Loc: [place] [address] Phys: Juany Carrillo MD Acct: [id number] Dis Date: Status: ADMIN PHONE #: [phone] Exam Date: 09/07/20225 FAX #: [phone] Reason: see US FET BIO PH SC W/O NST EXAMS: CPT CODE: [id number] US LTD 78946 PROCEDURE INFORMATION: Exam: US , Limited Exam [...] 11:26 PM PAGE 1 Signed Report (CONTINUED) Name:LUIS EDMONDS [facility] : 2000 Age/S: 21 / F [address] [place] [address] Unit #: [id number] Loc: [place] [address] Phys: Juany Carrillo MD Acct: [id number] Dis Date: Status: ADM IN PHONE #: [phone] Exam Date: 09/07/20225 FAX #: [phone] Reason: see US FET BIO PH SC W/ONST EXAMS: CPT CODE: [id number] US LTD 76302 (Continued) A limited transabdominal obstetrical ultrasound was [...] (0002) Probe: PAGE 2 Signed ReportAMNISURE (ROM) [id number] 22:26:00* Test Item Value Reference Range Interpretation Comme nts AMNISURE (ROM) TEST (test co de = AMNI) POSITIVE NEGATIVE A UA RFLX MICR CULT IF [id number] 22:12:00* Test Item Value Reference Range Interpretation [...] for culture: Suprapubic PainSpecimen Description: CLEAN CATCHFETAL [id number] 16:47:00* Test Item Value Reference Range Interpretation Comme nts FIBRONECTIN (test code = FFN) NEGATIVE NEGATIVE URINALYSIS [id number] 16:34:00* Test Item Value Reference Range Interpretation [...] SEEN - XR ANKLE 3 + V [id number] 00:00:00 [facility] : 2000 Sex: FFAX: Emily Mckoy MD [phone] [place]: [place] St: PRE FAX: Romeo Chavez Name: MARIAMLUIS FSED : 2000 Age/S: 21/F [address] [facility] Unit #: [id number] Loc: [place] [address] Phys: Ghanshyam Chavez MD Acct: [id number] Dis Date: Status: PRE ER PHONE #: Exam Date: 03/06/2022 1600 FAX #: Reason: R ANKLE PAIN AFTER FALL EXAMS: CPT CODE: [id number] XR ANKLE 3 + V RT [id number] INFORMATION: Exam: XR Right Ankle Exam date [...] Emeka Pickering M.D. CC: Emily Artis MD; Aggie Chavez MD Technologist: Katerina Rossa RT(R)(CT) Trnscrd Date/Time/By: 03/06/2022 (4760) : By: KaneSBL Orig Print D/T: S: 03/06/2022 (2000) PAGE 1 Signed Report- XR FOOT 3 + V [id number] 00:00:00 [facility] : 2000 Sex: F FAX: Emily Mckoy MD [phone] [place]: [place] St: PRE FAX: Romeo Chavez Name: LUIS EDMONDS [facility] : 2000 Age/S: 21/F [address] [facility] Unit #: [id number] Loc: [place] [address] Phys:Ghanshyam Chavez MD Acct: [id number] Dis Date: Status: PRE ER PHONE #: Exam Date: 03/06/2022 1553 FAX #: Reason: r foot injury EXAMS: CPT CODE: [id number] XR FOOT 3 + V RT 65058 PROCEDURE INFORMATION: Exam: XR Right Foot Exam [...] assessment. IMPRESSION: No fractures or dislocation at 7624 Reported and signed by: Emeka Pickering M.D. CC: Emily Artis MD; Ghanshyam Chavez MD Technologist: RT Valerie(R)(CT) Trnscrd Date/Time/By: 03/06/2022 (7824) : By: Kristian Orig Print D/T: S: 03/06/2022 (7661) PAGE 1 Signed ReportURINE HCG TRIAGE (ER ONLY)2021-11-11 08:40:00* Test Item Value Reference Range Interpretation Comme nts URINE HCG TRIAGE (ER ONLY) ( test code = HCGTRIAGE) NEGATIVE Negative Urine Test Result: NEGATIVEAre internal controls (presence of a control line & clear background) OK? YLot # of HCG Test Kit: [id number] Date of Kit: 02/15/23Test Performed by:Carlo Mancillaomed on: 11/11/21COMMENTS: NEGATIVEUA DIPSTICK [id number] 00:46:00* Test Item Value Reference Range Interpretation Comme nts UA GLUCOSE DIPSTIC POC (test code = GLUUP) NEGATIVE NEGATIVE UA BILIRUBIN DIPSTICK (test code = BILU) NEGATIVE NEGATIVE UA KETONE DIPSTICK POC (test code = KETUP) NEGATIVE NEGATIVE UA SPECIFIC GRAVITY (test code = SGU) 1.010 1.005-1.030 N UA BLOOD DIPSTIC POC (test code = BLUP) NEGATIVE NEGATIVE Performed by certified naval aircrewman operator at [facility] UA PH DIPSTIC POC (test code = PHUP) 7 5.0-7.0 N UA PROTEIN DIPSTICK POC (test code = DPROUP) NEGATIVE NEGATIVE UA UROBILINIOGEN QUAL (test code = UROQL) NORMAL 0.2-1.0 UA NITRITE DIPSTICK POC (test code = NITUP) NEGATIVE Negative UA LEUKOCYTE ESTERASE W REFLEX (test code = LEUUR) Negative NEGATIVE SURGICAL PATH [id number] 13:13:00* Test Item Value Reference Range Interpretation Comme nts SURGICAL PATH SPECIMENS (test code = S) RUN DATE: 03/28/21 [facility] - LAB PAGE 1 RUN TIME: 1313 Specimen Inquiry RUN USER: INTERFACE ARTEMIO ENT: LUIS EDMONDS LOC: MAIKEL U #: [id number] AGE/SX: 20/F ROOM: [facility] RE03/25/21REG DR: Luis Burciaga MD : [birth year] BED: 1 DIS: STATUS: ADM IN TLOC: SPEC #: [id number] RECD: 03/27/21 STATUS: GLENN EVERETT #: [id number] SLOAN: 03/26/21- SUBM DR: Luis Burciaga MD ENTERED: 03/27/21 SP TYPE: SURG SPEC OTHR DR: ORDERED: GM LEVEL 5 CODES: [id number] - PLACENTA, NOS PROCEDURES: GM LEVEL 5 [...] 03/28/21 1313 END OF REPORT CBC W/AUTO [id number] 07:03:00* Test Item Value Reference Range Interpretation [...] ode = MDIFF) NO CORD VENOUS BLOOD [id number] 18:41:00* Test Item Value Reference Range Interpretation Comme [facility] CORD VENOUS PH (test code = PHCV) [...] = O2SCV) 17 % CORD ARTERIAL BLOOD [id number] 18:40:00* Test Item Value Reference Range Interpretation [...] O2S/C) 25 % 72-77 L RAPID PLASMA [id number] 10:40:00* Test Item Value Reference Range Interpretation Comme nts RAPID PLASMA REAGIN (test co de = RPR) NONREACTIVE NONREACTIVE AG HEPATITIS B [id number] 10:40:00* Test Item Value Reference Range Interpretation Comme nts AG HEPATITIS B SURFACE (test code = HBSAG) NON REACTIVE INDEX NonReactive AB HIV 1 10:40:00* Test Item Value Reference Range Interpretation Comme nts AB HIV 1 2 (test code = VVP48ME) Nonreactive Nonreactive COVID 19 Asymptomatic IH [id number] 20:20:00* Test Item Value Reference Range Interpretation [...] perform moderate, high or waivedcomplexity tests. URINALYSIS [id number] 18:48:00* Test Item Value Reference Range Interpretation [...] MUCU) TRACE /LPF NONE SEEN RAPID PLASMA [id number] 18:11:00* Test Item Value Reference Range Interpretation Comme nts RAPID PLASMA REAGIN (test code = RPR) NONREACTI VE AG HEPATITIS B [id number] 18:11:00* Test Item Value Reference Range Interpretation Comme nts AG HEPATITIS B SURFACE (test code = HBSAG) NON REACTIVE INDEX NonReactive AB HIV 1 18:11:00* Test Item Value Reference Range Interpretation Comme nts AB HIV 1 2 (test code = LOC23DC) Nonreactive Nonreactive COMPREHENSIVE METABOLIC [id number] 17:45:00* Test Item Value Reference Range Interpretation [...] = ALKP) 153 IUnit/L 60-350 N URIC [id number] 17:45:00* Test Item Value Reference Range Interpretation Comme nts URIC ACID (test code = URIC) 4.0 mg/dL 2.6-7.2 N LACTIC DEHYDROGENASE(LDH)2021-03-25 17:45:00* Test Item Value Reference Range Interpretation Comme nts LACTIC DEHYDROGENASE(LDH) (t est code = LDH) 225 IUnits/L 84-246 N CBC W/AUTO [id number] 17:24:00* Test Item Value Reference Range Interpretation [...] (test c ode = MDIFF) CBC W/AUTO [id number] 17:24:00* Test Item Value Reference Range Interpretation [...] ode = CAT) NO - US BIOPHYS [id number] 00:00:00 [facility] : 2000 Sex: F Name: LUIS EDMONDS [facility] [place] : 2000 Age/S: 20 / F [address] [place] [address] Unit #: [id number] Loc: [place] [address] Phys: Effie Solitario MD Acct: [id number] Dis Date: Status: REG ER PHONE #: [phone] Exam Date: 03/12/202141 FAX #: [phone] Reason: Possible SROM, please evaluate ISMA EXAMS: CPT CODE: [id number] US BIOPHYS PROF 58425 PROCEDURE INFORMATION: Exam: US Biophysical Profile With [...] co de = AMNI) NEGATIVE NEGATIVE URINALYSIS [id number] 21:48:00* Test Item Value Reference Range Interpretation [...] = MUCU) TRACE /LPF NONE SEEN URINALYSIS [id number] 07:00:00* Test Item Value Reference Range Interpretation [...] TRACE /LPF NONE SEEN - US BIOPHYS [id number] 00:00:00 [facility] : 2000 Sex: F Name: LUIS EDMONDS [facility] : 2000 Age/S: 20 / F [address] [place] [address] Blvd Unit #:[id number] Loc: [facility] [place] [address] Phys: Effie Solitario MD Acct: [id number] Dis Date: Status: REG ER PHONE #: [phone] Exam Date: 03/01/2021 0758 FAX #: [phone] Reason: decreased movements EXAMS: CPT CODE: [id number] US BIOPHYS PROF 41089 PROCEDURE INFORMATION: Exam: US Biophysical Profile With [...] Probe: PAGE 1 Signed Report AMNISURE (ROM) [id number] 16:16:00* Test Item Value Reference Range Interpretation Comme nts AMNISURE (ROM) TEST (test co de = AMNI) NEGATIVE NEGATIVE [id number] 16:16:00* Test Item Value Reference Range Interpretation Comme nts FIBRONECTIN (test code = FFN) NEGATIVE NEGATIVE [id number] 20:50:00* Test Item Value Reference Range Interpretation Comme nts FIBRONECTIN (test code = FFN) NEGATIVE NEGATIVE URINALYSIS [id number] 20:32:00* Test Item Value Reference Range Interpretation [...] TRACE /LPF NONE SEEN - US BIOPHYS [id number] 00:00:00 [facility] : 2000 Sex: F Name: LUIS EDMONDS [facility] : 2000 Age/S: 20 / F [address] [place], [place] [address] Unit #:[id number] Loc: [place] [address] Phys: Effie Solitario MD Acct: [id number] Dis Date: Status: REG ER PHONE #: [phone] Exam Date: 02/12/20212122 FAX #: [phone] Reason: Decreased movements EXAMS: CPT CODE: [id number] US BIOPHYS PROF 80743 PROCEDURE INFORMATION: Exam: US F etal Biophysical [...] 1 Signed Report (CONTINUED) Name: LUIS EDMONDS [facility] : 2000 Age/S: 20 / F [address] [place] [address] Unit #: [id number] Loc: [place] [address] Phys: Effie Solitario MD Acct: [id number] Dis Date: Status: REG ER PHONE #: [phone] Exam Date: 02/12/20212122 FAX #: [phone] Reason: Decreased movements EXAMS: CPT CODE: [id number] US BIOPHYS PROF 85343 <Continued> at 2121 Reported and signed by: Geovanny Hughes D.O. CC: Technologist: Yuki Ray RDMS()(OB) Trnscb Date/Time: 02/12/2021 (2121)[email or web address] Orig Print D/T: S: 02/12/2021 (2148) Probe: PAGE 2 Signed ReportURINALYSIS [id number] 03:25:00* Test Item Value Reference Range Interpretation [...] MUCU) TRACE /LPF NONE SEEN - US [id number] 17:34:00 [facility] MADELINE COFFMANName: LUIS EDMONDS : 2000 Sex: F Name: LUIS EDMONDS [facility] Madeline Coffman : 2000 Age/S: 20 / F [address] [place] [address] Blvd Unit #: [id number] Loc: [place] [address] Phys: ScottPearl Molina Acct: [id number] Dis Date: Status: REG ER PHONE #: [phone] Exam Date: 12/25/2020 1726 FAX #: [phone] Reason: h/o low ISMA, unsure if PROM, translabial cervic EXAMS: CPT CODE: [id number] LTD 28432 LIMITED ULTRASOUND INDICATION: with history of low [...] 1 Signed Report (CONTINUED) Name: LUIS EDMONDS [facility] Chandra : 2000 Age/S: 20 / F [address] [place] [address] Bl Unit #: [id number] Loc: [place] [address] Phys: Pearl Chavez DO Acct: [id number] Dis Date: Status: REG ER PHONE #: [phone] Exam Date: 12/25/2020 1726 FAX #: [phone] Reason: h/o low ISMA, unsure if PROM, translabial cervic EXAMS: CPT CODE: [id number] LTD 53109 <Continued> at 1734 Reported and signed by: Judah Izquierdo M.D. CC: Pearl Chavez DO Technologist: Merna Figueroa RDMS() Trnscb Date/Time: 12/25/2020 (173) [email or web address] Orig Print D/T: S: 12/25/2020 (173) Probe: PAGE 2 Signed Report AMNISURE (ROM) [id number] 17:14:00* Test Item Value Reference Range Interpretation Comme nts AMNISURE (ROM) TEST (test co de = AMNI) NEGATIVE NEGATIVE URINALYSIS [id number] 17:10:00* Test Item Value Reference Range Interpretation [...] /HPF NONE A DRUGS OF ABUSE SCREEN [id number] 17:07:00* Test Item Value Reference Range Interpretation [...] for non-medical purposes. - US PREG AFTER [id number] 02:47:00 [facility] : 2000 Sex: F Name: LUIS EDMONDS [facility] Madeline Coffman : 2000 Age/S: 19 / F [address] [place] [address] Unit #: [id number] Loc: [place] [address] Phys: Brittnee Ramirez MD Acct: [id number] Dis Date: Status: REGER PHONE #: [phone] Exam Date: 11/23/2020 014 FAX #: [phone] Reason: No PNC, bleeding, approximately 20 weeks EXAMS: CPT CODE: [id number] US PREG AFTER 1ST TRI 64366 EXAM: US, US PREG AFTER 1SR TRI: [...] PAGE 1 Signed Report (CONTINUED) Name: KAREL EDMONDS [facility] : 2000 Age/S: 19 / F [address] [place] [address] Unit #: [id number] Loc:[place] [address] Phys: Brittnee Ramirez MD Acct: [id number] Dis Date: Status: REG ER PHONE #: [phone] Exam Date: 11/23/2020143 FAX #: [phone] Reason: No PNC, bleeding, approximately 20 weeks EXAMS: CPT CODE: [id number] US PREG AFTER TRI 86873 <Continued> seen. Cervical length is not visualized. [...] PAGE 2 Signed Report- US PREG AFTER [id number] 02:47:00 [facility] : 2000 Sex: F Name: LUIS EDMONDS [facility] Madeline Coffman : 2000 Age/S: 19 / F [address] [place] [address] Blvd Unit #: [id number] Loc: [place] [address] Phys: Brittnee Ramirez MD Acct: [id number] Dis Date: Status: DEPER PHONE #: [phone] Exam Date: 11/23/2020143 FAX #: [phone] Reason: No PNC, bleeding, approximately 20 weeks EXAMS: CPT CODE: [id number] US PREG AFTER 1ST TRI 49382 EXAM: US, US PREG AFTER 1SR TRI: [...] 1 Signed Report (CONTINUED) Name: LUIS EDMONDS [facility] : 2000 Age/S: 19 / F [address] [place] [address] Blvd Unit #: [id number] Loc: [place] [address] Phys: Brittnee Ramirez MD Acct: [id number] Dis Date: Status: DEP ER PHONE #: [phone] Exam Date: 11/23/2020143 FAX #: [phone] Reason: No PNC, bleeding, approximately 20 w eeks EXAMS: CPT CODE: [id number] US PREG AFTER 1ST TRI 84484 <Continued> seen. Cervical lengthis not visualized. IMPRESSION: [...] 11/23/2020 (249) Probe: PAGE 2 Signed ReportURINALYSIS [id number] 01:40:00* Test Item Value Reference Range Interpretation [...] /HPF NONE A DRUGS OF ABUSE SCREEN [id number] 01:40:00* Test Item Value Reference Range Interpretation [...] be used for non-medical purposes. CBC W/AUTO [id number] 01:27:00* Test Item Value Reference Range Interpretation [...] c ode = MDIFF) NO BASIC METABOLIC [id number] 02:51:00* Test Item Value Reference Range Interpretation [...] = CA) 9.5 mg/dL 8.0-10.5 N HCG [id number] 02:51:00* Test Item Value Reference Range Interpretation Comme nts HCG SERUM (test code = HCG) 87118.3 0 - 6 NOT PREGNA NT > 6 SUGGESTIVE OF EARLY RISES TWO FOLD EVERY 2 DAYS; SUGGEST RECONFIRMING AFTER 2 DAYS. 150,000-200,[address] TRIMESTER 10,000 - 50,000 2ND & 3RD TRIMESTERResults in emanuel-International Units/mL URINALYSIS [id number] 02:39:00* Test Item Value Reference Range Interpretation [...] MUCU) TRACE /LPF NONE SEEN CBC W/AUTO [id number] 02:21:00* Test Item Value Reference Range Interpretation [...] = MDIFF) NO - US PREG 1ST [id number] 02:19:00 [facility] : 2000 Sex: F Name: LUIS EDMONDS [facility] [place] : 2000 Age/S: 19 / F [address] [place] [address] Unit #: [id number] Loc: [place] [address] Phys: Nirav [place] MD Acct: [id number] Dis Date: Status: REG ER PHONE #: [phone] Exam Date: 10/05/2020209 FAX #: [phone] Reason: VB EXAMS: CPT CODE: [id number] US PREG 1ST TRIMTR 20966 STUDY: - DUP AB/PEL/SC/LTD, - US PREG 1ST TRIMTR 10/05/2020 1:17 AM Ordering Physician: Nirav [place] MD Patient Name: LUIS EDMONDS MR: [id number] : 2000; Age: 19 years y/o Female [...] 1 Signed Report (CONTINUED) Name: LUIS EDMONDS [facility] Madeline Coffman : 2000 Age/S: 19 / F [address] [place] [address] Unit #: [id number] Loc: [place] [address] Phys: Nirav [place] MD Acct: [id number] Dis Date: Status: REG ER PHONE #: [phone] Exam Date: 10/05/2020209 FAX #: [phone] Reason: VB EXAMS: CPT CODE: [id number] US PREG 1ST TRIMTR 89487 <Continued> SL: TPAINTER-H at 0219 Reported and signed by: Abdias Avila M.D. CC: Elina Rome MD; Nirav [place] MD Technologist: Maryam Anderson RDMS(BR)(AB) Trnscb Date/Time: 10/05/2020 (218) [email or web address] Orig Print D/T: S: 10/05/2020 (221) Probe: PAGE 2 Signed Report- DUP AB/PEL/SC/[id number] 02:19:00 [facility] : 2000 Sex: F Name: LUIS EDMONDS [facility] : 2000 Age/S: 19 / F [address] [place] [address] Unit #: [id number] Loc: [place] [address] Phys: Nirav [place] MD Acct: [id number] Dis Date: Status: REG ER PHONE #: [phone] Exam Date: 10/05/2020209 FAX #: [phone] Reason: see US PREG 1st TRIMTR EXAMS: CPT CODE: [id number] DUP AB/PEL/SC/LTD 11264 STUDY: - DUP AB/PEL/SC/LTD, - US PREG 1ST TRIMTR 10/05/2020 1:17 AM Ordering Physician: Nirav [place] MD Patient Name: LUIS EDMONDS MR: [id number] : 2000; Age: 19 years y/o Female [...] 1 Signed Report (CONTINUED) Name: LUIS EDMONDS [facility] : 2000 Age/S: 19 / F [address] [place] [address] Blvd Unit #: [id number] Loc: [place] [address] Phys: Nirav [place] MD Acct: [id number] Dis Date: Status: REG ER PHONE #: [phone] Exam Date: 10/05/2020209 FAX #: [phone] Reason: see US PREG 1st TRIMTR EXAMS: CPT CODE: [id number] DUP AB/PEL/SC/LTD 00405 <Continued> SL: TPAINTER-H at 0219 Reported and signed by: Abdias Avila M.D. CC: Elina Rome MD; Nirav [place] MD Technologist: Maryam Anderson RDMS(BR)(AB) Trnscb Date/Time: 10/05/2020 (218) [email or web address] Orig Print D/T: S: 10/05/2020 (221) Probe: PAGE 2 Signed Report- DUP AB/PEL/SC/[id number] 22:07:00 [facility] MADELINE COFFMANName: LUIS EDMONDS : 2000 Sex: F Name: LUIS EDMONDS [facility] Madeline Coffman : 2000 Age/S: 19 / F [address] [place] [address] Blvd Unit #:[id number] Loc: [place] [address] Phys: Cathy Bruce Acct: [id number] Dis Date: Status: REG ER PHONE #: [phone] Exam Date: 08/22/20202199 FAX #: [phone] Reason: see US PREG 1stTRIMTR EXAMS: CPT CODE: [id number] DUP AB/PEL/SC/LTD [id number] PROCEDURE: FIRST TRIMESTER ULTRASOUND INDICATION: 6 weeks [...] PAGE 1 Signed Report- US PREG 1ST [id number] 22:07:00[facility] : 2000 Sex: F Name: LUIS EDMONDS [facility] : 2000 Age/S: 19 / F [address] [place] [address] Unit #: [id number] Loc: [place] [address] Phys: Cathy Bruce Acct: [id number] Dis Date: Status: REG ER PHONE #: [phone] Exam Date: 08/22/20202199 FAX #: [phone] Reason: 6w , cramping EXAMS: CPT CODE: [id number] US PREG 1ST TRIMTR 45025 PROCEDURE: FIRST TRIMESTER ULTRASOUND INDICATION: 6 weeks [...] 08/22/2020 (2209) Probe: PAGE 1 Signed ReportURINALYSIS [id number] 21:50:00* Test Item Value Reference Range Interpretation [...] MUCU) TRACE /LPF NONE SEEN BASIC METABOLIC [id number] 21:48:00* Test Item Value Reference Range Interpretation [...] patient ? YHOW MANY WEEKS? 6 WEEKSHCG [id number] 21:48:00* Test Item Value Reference Range Interpretation Comme nts HCG SERUM (test code = HCG) 66040.6 0 - 6 NOT PREGNA NT > 6 SUGGESTIVE OF EARLY RISES TWO FOLD EVERY 2 DAYS; SUGGEST RECONFIRMING AFTER 2 DAYS. 150,000-200,[address] TRIMESTER 10,000 - 50,000 2ND & 3RD TRIMESTERResults in emanuel-International Units/mL Is patient ? YHOW MANY WEEKS? 6 WEEKSUR HCG [id number] 21:47:00* Test Item Value Reference Range Interpretation Comme nts UR HCG QUAL (test code = HCGQLU) POSITIVE NEGATIVE CBC W/AUTO [id number] 21:33:00* Test Item Value Reference Range Interpretation [...] c ode = MDIFF) NO CBC W/AUTO [id number] 21:31:00* Test Item Value Reference Range Interpretation [...] c ode = MDIFF) Novel Coronavirus 2019 [id number] 14:50:00* Test Item Value Reference Range Interpretation Comme nts Novel Coronavirus 2019 nCoV (test code = COVID19) Negative Negative Performed by: [facility] [address] [place] [address], [address] [place], [place] [address] CLIA#: [id number] Does patient have the clinical criteria consistent with COVID-19? YIs the patient going to be discharged home? Y- CT NECK W/[id number] 02:35:00 Name: LUIS EDMONDS [facility] : 2000 Age/S: 19 / F [address] [place] [address] Blvd Unit #:[id number] Loc: [place] [address] Phys: Amilcar Pablo BRAKE REPAIRER HYDRAULIC Acct: [id number] Dis Date: Status: REG ER PHONE #: [phone] Exam Date: 02/16/2020 0134 FAX #: [phone] Reason: R lymphadenopathy, throat pain, fever EXAMS: CPT CODE: [id number] CT NECK W/CONTRAST [id number] EXAM: CT, CT NECK W/CONTRAST: 02/16/2020, 0132 [...] 1 Signed Report (CONTINUED) Name: LUIS EDMONDS [facility] : 2000 Age/S: 19 / F [address] [place] [address] Unit #: [id number] Loc: [place] [address] Phys: Amilcar Pablo BRAKE REPAIRER HYDRAULIC Acct: [id number] Dis Date: Status: REG ER PHONE #: Exam Date: 02/16/2020 0134 FAX #: [phone] Reason: R lymphadenopathy, throat pain, fever EXAMS: CPT CODE: [id number] CT NECK W/CONTRAST 46547 <Continued> unremarkable. OSSEOUS STRUCTURES: There are no [...] 02/16/2020 (023) PAGE 2 Signed ReportCOMPREHENSIVE METABOLIC [id number] 00:12:00* Test Item Value Reference Range Interpretation [...] = ALKP) 70 IUnit/L 60-350 N MONO [id number] 00:09:00* Test Item Value Reference Range Interpretation Comme nts MONO SCREEN (test code = MONO) NEGATIVE NEGATIVE URINALYSIS [id number] 00:02:00* Test Item Value Reference Range Interpretation [...] MUCU) 1+ /LPF NONE SEEN COMPREHENSIVE METABOLIC [id number] 00:02:00* Test Item Value Reference Range Interpretation [...] code = ALKP) IUnit/L 60-350 CBC W/AUTO [id number] 23:59:00* Test Item Value Reference Range Interpretation [...] (test code = MDIFF) NO UR HCG [id number] 23:56:00* Test Item Value Reference Range Interpretation Comme nts UR HCG QUAL (test code = HCGQLU) NEGATIVE NEGATIVE Notes Date/Time Note Provider Source 2022-11-16 15:41:00 [id number] [address] PATIENT NAME: LUIS EDMONDS ADMIT DATE: 10/30/22 ACCOUNT NO: [id number] [facility] 21 REPORT TYPE: 360 - QUERY RESPONSE DOCUMENT SEX: F ADMITTING PHYSICIAN:Luis Burciaga MD ATTENDING PHYSICIAN:Luis Burciaga MD Provider Query QUERY TEXT: Clarification Pathology 360MD Query related questions should be directed to: [facility] Coding Query Hotline Based on your clinical [...] AM at 1541 PATIENT NAME: LUIS EDMONDS [facility] 2022-11-02 15:02:00 [facility] [place] [facility] OB Disch REPORT#:[id number] REPORT STATUS: Signed DATE:11/02/22 TIME: 1502 PATIENT: LUIS EDMONDS UNIT #: [id number] ROOM/BED: [place] [address] : 02 AGE: 21 SEX: F ATTEND: [...] Additional discharge routines: None at 1504 RPT #:[id number] END OF REPORT [facility] 2022-11-02 14:57:00 [facility] ([facility]) OB Postpart Progr Note REPORT#:[id number] REPORT STATUS: Signed DATE:11/02/22 TIME: 1457 PATIENT: LUIS EDMONDS UNIT #: [id number] ROOM/BED: [place] [address] : 02 AGE: 21 SEX: F ATTEND: [...] routine care, discharge today at 1500 RPT #:[id number] END OF REPORT [facility] 2022-11-01 15:13:00 [facility] ([facility]) OB Postpart Progr Note REPORT#:[id number] REPORT STATUS: Signed DATE:11/01/22 TIME: 1513 PATIENT: LUIS EDMONDS UNIT #: [id number] ROOM/BED: [place] [address] : 02 AGE: 21 SEX: F ATTEND: [...] % (Auto) (14.0 - 32.0 %) 25.7 Pitt % (Auto) (4.8 - 9.0 %) 9.7 H Eos % (Auto) (0.3 - 3.7 %) 0.8 Baso % (Auto) (0.0 - 2.0 %) 0.5 Neut # (Auto) (2.0 - 7.6 x10 3/uL) 7.76 H Lymph # (Auto) (1.0 - 3.8 x10 3/uL) 3.17 Pitt # (Auto) (0.1 - 0.8 x10 3/uL) [...] progress Plan: routine care at 1514 RPT #:[id number] END OF REPORT [facility] 2022-10-31 15:14:00 [facility] [place] [facility] ([facility]) DT History Physical REPORT#:[id number] REPORT STATUS: Signed DATE:10/31/22 TIME: 1514 PATIENT: LUIS EDMONDS UNIT #: [id number] ROOM/BED: [place] [address] : 02 AGE: 21 SEX: F ATTEND: [...] (14.0 - 32.0 %) 26.3 10/30 1830 Pitt % (Auto) (4.8 - 9.0 %) 9.6 H 10/30 1830 Eos % (Auto) (0.3 - 3.7 %) 0.6 10/30 183 Baso % (Auto) (0.0 - 2.0 %) 0.3 10/30 1829 Neut # (Auto) (2.0 - 7.6 x10 3/uL) 6.27 10/30 1829 Lymph # (Auto) (1.0 - 3.8 x10 3/uL) 2.65 10/30 1829 Pitt # (Auto) (0.1 - 0.8 x10 3/uL) [...] 10/31 0730 AC 10/31 Chloride IV 11/30 07 0751 (Oxytocin 15 units/ NS 250 mL) Carboprost 250 MCG ONCE PRN 10/30 183 AC Tromethamine IM 11/29 1828 (HEMABATE) Methylergonovine 0.2 MG ONCE PRN 10/30 183 AC Maleate IM 11/29 1828 (METHERGINE) Oxytocin/Sodium 333.33 ML BOLUS PRN 10/30 183 AC Chloride IV 11/29 1828 (Oxytocin 15 units/ NS 250 mL) Pharmaceutical Aids Sig/Victoriano Start time Last Medication Dose Route Stop Time Status Admin Sterile Water 10 ML ASDIR PRN 10/31 034 AC (WATER FOR INJECTION) EPIDURAL 11/30 034 [...] 1237 76 100 10/31 1232 71 99 04/15 1227 72 100 [...] 04/15 1129 72.0 04/15 1129 65 99/53 04 1127 68 97 04/15 1122 62 98 04/15 1118 65.0 04/15 1118 68 89/47 04 1117 71 97 04 1112 68 98 0415 1107 70 98 04 1102 66 98 04 1057 79 100 04/ 1052 79 100 04/ 1051 16 04 1048 79.0 10/31 1048 68 111/56 04 1047 71 100 04/15 1046 16 04 1042 82.0 04/15 1042 91 115/59 100 04/15 1041 16 04/ 1037 82.0 04/15 1037 87 112/57 100 04/15 1036 16 04 1032 81.0 04/15 1032 92 120/56 100 04/15 1031 17 04 1028 78.0 / 1028 82 119/61 04 1027 84 100 04/15 1022 74 100 04/15 1021 17 0415 1021 81.0 04/15 1021 68 117/59 0415 [...] 0015 91 100 04/15 0010 101 99 10/31 0005 93 100 10/31 0000 89 100 10/30 2357 84.0 10/30 [...] 1725 139 117/55 98 at 1514 RPT #:[id number] END OF REPORT [facility] 2022-10-31 15:12:00 [facility] [place] [facility] ([facility]) OB Delivery Note REPORT#:[id number] REPORT STATUS: Signed DATE:10/31/22 TIME: 1512 PATIENT: LUIS EDMONDS UNIT #: [id number] ROOM/BED: [place] [address] : 02 AGE: 21 SEX: F ATTEND: [...] administered: penicillin evaluation at delivery: NRP certified personnel Admission [...] condition: stable in room at 1514 RPT #:[id number] END OF REPORT [facility] 2022-09-27 16:38:00 [facility] ([facility]) OB Disch Undelivered REPORT#:[id number] REPORT STATUS: Signed DATE:09/27/22 TIME: 1638 PATIENT: BI EDMONDS UNIT #: [id number] ROOM/BED: [place] [address] : 02 AGE: 21 SEX: F ATTEND: [...] 2230 82 93 09/26 2229 79.0 09/26 222 84 110/58 PATIENT WEIGHT: Weight (lb): Weight (oz): Weight (kg): Free Text Obj Notes Free Text Obj Notes: Gen: AAOx3 Lungs: normal respiratory effort Neuro: Exam: alert, oriented x3 Abdomen: gravid, soft Uterine activity: Monitor: toco Frequency (description): None Frequency (minutes): CUSTOMER EXPERIENCE ASSOCIATE: Normal exteral genitalia Cervical/ exam: Dilatation (cm): [...] understanding will have 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 Assessment: no evidence labor Impression: reactive NST [...] timeframe: In 1-2 weeks at 1953 RPT #:[id number] END OF REPORT [facility] 2022-09-27 10:39:00 [facility] [place] [facility] ([facility]) OB Antepartum Prog Note REPORT#:[id number] REPORT STATUS: Signed DATE:09/27/22 TIME: 1039 PATIENT: BI EDMONDS UNIT #: [id number] ROOM/BED: [place] [address] : 02 AGE: 21 SEX: F ATTEND: [...] 09/26 2230 82 93 09/26 2229 79.0 09/269 84 110/58 PATIENT WEIGHT: Weight (lb): Weight (oz): Weight (kg): Free Text Obj Notes Free Text Obj Notes: Gen: AAOx3 Lungs: normal respiratory effort Neuro: Exam: alert, oriented x3 Abdomen: gravid, soft Uterine activity: Monitor: toco Frequency (description): none Frequency (minutes): CUSTOMER EXPERIENCE ASSOCIATE: Normal exteral genitalia Cervical/ exam: Dilatation (cm): 1 Effacement (%): 50 station: -3 Presentation: Membrane status: FHR evaluation: FHR category: category I Diagnosis, Assessment Plan Diagnosis, Assessment Plan Free text A P: IUP 32 07/25 FFN + Patient found stable, patient evaluated by MFM, he recommends discharge home if no cervical change. Will check her this afternoon. at 1950 RPT #:[id number] END OF REPORT [facility] 2022-09-27 09:19:00 [facility] ([facility]) MFM Consultation Note REPORT#:[id number] REPORT STATUS: Signed DATE:09/27/22 TIME: 918 PATIENT: BI EDMONDS UNIT #: [id number] ROOM/BED: [place] [address] : 02 AGE: 21 SEX: F ATTEND: [...] globulin this preg: Monitor mode - UA: Randolph units: Feeding preference: Delivery data Delivery date [...] Weight (kg): Results Findings/Data: Laboratory Tests 09/26 1925 Miscellaneous Fibronectin (NEGATIVE) POSITIVE H Laboratory Tests [...] pH (5.0 - 7.0) 5.0 Ur Specific [place] (1.005 - 1.030) 1.033 H Urine Protein [...] closely Floor time 50min at 0927 RPT #:[id number] END OF REPORT [facility] 2022-09-27 05:02:00 [facility] ([facility]) OB Admission / H P REPORT#:[id number] REPORT STATUS: Signed DATE:09/27/22 TIME: 0502 PATIENT: BI EDMONDS UNIT #: [id number] ROOM/BED: [place] [address] : 02 AGE: 21 SEX: F ATTEND: [...] pH (5.0 - 7.0) 5.0 Ur Specific [place] (1.005 - 1.030) 1.033 H Urine Protein [...] dilation Plan: 1. Phone consult called to [facility], Dr Judge. No Celestone is needed ( last course of steroid was given 3+ wk ago on 09-08-22 and 09-09-22 ). No MgSO4 is needed at 32 1/7wks with no contractions. 2. Admit for 23h observation. 3. Will recheck cx in AM. If no contraction or cervical change, will DC home. at 0512 RPT #:[id number] END OF REPORT [facility] 2022-09-26 19:34:00 [facility] ([facility]) OLGA Evaluation Note REPORT#:[id number] REPORT STATUS: Signed DATE:09/26/22 TIME: 1933 PATIENT: BI EDMONDS UNIT #: [id number] ROOM/BED: [place] [address] : 02 AGE: 21 SEX: F ATTEND: [...] Temp 98.1 09/26 1858 Pulse 123 09/26 1858 Resp 18 09/26 1858 B/P Mean 82.0 09/26 1857 B/P 09/26 185 Vital Signs Date Temp Pulse [...] for 23hr obs. Phone consult called to [facility], Dr Judge. No Celestone is needed ( last course of steroid was given 3+ wk ago on 09-08-22 and 09-09-22 ). No MgSO4 is needed at 32 1/7wks with no contractions. POC dw patient, nurse at 0502 RPT #:[id number] END OF REPORT [facility] 2022-09-26 19:30:00 [facility] ([facility]) OB Medical Screening Exam REPORT#:[id number] REPORT STATUS: Signed DATE:09/26/22 TIME: 193 PATIENT: BI EDMONDS UNIT #: [id number] ROOM/BED: [facility] : 02 AGE: 21 SEX: F ATTEND: Luis Burciaga MD ADM DT: AUTHOR: Zoila Gomez DO * ALL edits or amendments must be made on the electronic/computer document * Medical Screening Exam Provider Attestation Comments: Patient was seen at 1920 for contraction, back pain, and decreased FM at 32 1/ 7wks at 1931 RPT #:[id number] END OF REPORT [facility] 2022-09-14 08:43:00 [facility] ([facility]) OB Disch Undelivered REPORT#:[id number] REPORT STATUS: Signed DATE:09/14/22 TIME: 842 PATIENT: LUIS EDMONDS UNIT #: [id number] ROOM[facility]BED: [facility] : 02 AGE: 21 SEX: F ATTEND: [...] Additional Discharge Routines: None at 0845 RPT #:[id number] END OF REPORT [facility] 2022-09-14 08:41:00 [facility] ([facility]) OB Antepartum Prog Note REPORT#:[id number] REPORT STATUS: Signed DATE:09/14/22 TIME: 08 PATIENT: LUIS EDMONDS UNIT #: [id number] ROOM/BED: [place] [address] : 02 AGE: 21 SEX: F ATTEND: [...] labor Plan: discharge home at 0843 RPT #:[id number] END OF REPORT [facility] 2022-09-13 17:53:00 [facility] ([facility]) OB Antepartum Prog Note REPORT#:[id number] REPORT STATUS: Signed DATE:09/13/22 TIME: 1753 PATIENT: LUIS EDMONDS UNIT #: [id number] ROOM/BED: [place] [address] : 02 AGE: 21 SEX: F ATTEND: [...] infant outside hospital decreases at 1802 RPT #:[id number] END OF REPORT [facility] 2022-09-13 09:03:00 [facility] ([facility] Progress Note REPORT#:[id number] REPORT STATUS: Signed DATE:09/13/22 TIME: 902 PATIENT: LUIS EDMONDS UNIT #: [id number] ROOM/BED: [place] [address] : 02 AGE: 21 SEX: F ATTEND: [...] closely Floor time 35min at 0911 RPT #:[id number] END OF REPORT [facility] 2022-09-12 08:28:00 [facility] ([facility]) [facility] Progress Note REPORT#:[id number] REPORT STATUS: Signed DATE:09/12/22 TIME: 827 PATIENT: LUIS EDMONDS UNIT #: [id number] ROOM/BED: [place] [address] : 02 AGE: 21 SEX: F ATTEND: [...] closely Floor time 35min at 0834 RPT #:[id number] END OF REPORT [facility] 2022-09-12 01:41:00 [facility] ([facility]) OB Antepartum Prog Note REPORT#:[id number] REPORT STATUS: Signed DATE:09/12/22 TIME: 0141 PATIENT: LUIS EDMONDS UNIT #: [id number] ROOM/BED: [place] [address] : 02 AGE: 21 SEX: F ATTEND: [...] Plan: continue current managmnt at 0142 RPT #:[id number] END OF REPORT [facility] 2022-09-11 22:15:00 [facility] OB Antepartum Prog Note REPORT#:[id number] REPORT STATUS: Signed DATE:09/11/22 TIME: 2214 PATIENT: LUIS EDMONDS UNIT #: [id number] ROOM/BED: [place] [address] : 02 AGE: 21 SEX: F ATTEND: [...] Plan: continue current managmnt at 2218 RPT #:[id number] END OF REPORT [facility] 2022-09-11 07:18:00 [facility] ([facility]) [facility] Progress Note REPORT#:[id number] REPORT STATUS: Signed DATE:09/11/22 TIME: 717 PATIENT: LUIS EDMONDS UNIT #: [id number] ROOM/BED: [place] [address] : 02 AGE: 21 SEX: F ATTEND: [...] pH (5.0 - 7.0) 6.0 Ur Specific [place] (1.005 - 1.030) 1.019 Urine Protein (NEGATIVE) [...] closely Floor time 35min at 0724 RPT #:[id number] END OF REPORT [facility] 2022-09-10 13:12:00 [facility] ([facility]) [facility] Progress Note REPORT#:[id number] REPORT STATUS: Signed DATE:09/10/22 TIME: 1312 PATIENT: LUIS EDMONDS UNIT #: [id number] ROOM/BED: [place] [address] : 02 AGE: 21 SEX: F ATTEND: [...] closely Floor time 35min at 1325 RPT #:[id number] END OF REPORT [facility] 2022-09-10 08:19:00 [facility] ([facility]) OB Antepartum Prog Note REPORT#:[id number] REPORT STATUS: Signed DATE:09/10/22 TIME: 0819 PATIENT: LUIS EDMONDS UNIT #: [id number] ROOM/BED: [place] [address] : 02 AGE: 21 SEX: F ATTEND: [...] Plan: continue current managmnt at 0820 RPT #:[id number] END OF REPORT [facility] 2022-09-09 12:03:00 [facility] ([facility]) OB Admission / H P REPORT#:[id number] REPORT STATUS: Signed DATE:09/09/22 TIME: 1203 PATIENT: LUIS EDMONDS UNIT #: [id number] ROOM/BED: [place] [address] : 02 AGE: 21 SEX: F ATTEND: Luis Burciaga MD ADM AUTHOR: Juany Carrillo MD * ALL edits or amendments must be made on the electronic/computer document * OB History Notes: [facility] ([facility]) [facility] Evaluation Note REPORT#:[id number] REPORT STATUS: Signed DATE:09/07/22 TIME: 2242 PATIENT: LUIS EDMONDS UNIT #: [id number] ROOM/BED: [place] [address] : 02 AGE: 21 SEX: F ATTEND: [...] Ox 99 09/07 214 Pulse 86 09/07 214 B/P Mean 84.0 [...] pH (5.0 - 7.0) 7.0 Ur Specific [place] (1.005 - 1.030) 1.006 Urine Protein (NEGATIVE) [...] counseling/coordination of care: yes at 0549 RPT #:[id number] END OF REPORT Past History Allergies: Uncoded Allergies: MARCUS ACID- THROAT SWELLING (Severe, 08/03/22) at 1207 RPT #:[id number] END OF REPORT [facility] 2022-09-09 09:03:00 [facility] ([facility]) OB Antepartum Prog Note REPORT#:[id number] REPORT STATUS: Signed DATE:09/09/22 TIME: 902 PATIENT: LUIS EDMONDS UNIT #: [id number] ROOM/BED: [place] [address] : 02 AGE: 21 SEX: F ATTEND: [...] PPROM Plan: continue current managmnt at 0906 [facility] #:[id number] END OF REPORT [facility] 2022-09-09 08:58:00 [facility] ([facility]) OB Antepartum Prog Note REPORT#:[id number] REPORT STATUS: Signed DATE:09/09/22 TIME: 0858 PATIENT: LUIS EDMONDS UNIT #: [id number] ROOM/BED: [place] [address] : 02 AGE: 21 SEX: F ATTEND: [...] Plan: continue current managmnt at 0859 RPT #:[id number] END OF REPORT [facility] 2022-09-09 07:45:00 [facility] ([facility]) MFM Progress Note REPORT#:[id number] REPORT STATUS: Signed DATE:09/09/22 TIME: 0745 PATIENT: LUIS EDMONDS UNIT #: [id number] ROOM/BED: [place] [address] : 02 AGE: 21 SEX: F ATTEND: [...] closely Floor time 35min at 0748 RPT #:[id number] END OF REPORT [facility] 2022-09-08 17:21:00 [facility] ([facility]) [facility] Consultation Note REPORT#:[id number] REPORT STATUS: Signed DATE:09/08/22 TIME: 172 PATIENT: LUIS EDMONDS UNIT #: [id number] ROOM/BED: [place] [address] : 02 AGE: 21 SEX: F ATTEND: [...] % (Auto) (14.0 - 32.0 %) 31.0 Pitt % (Auto) (4.8 - 9.0 %) 8.1 Eos % (Auto) (0.3 - 3.7 %) 0.8 Baso % (Auto) (0.0 - 2.0 %) 0.3 Neut # (Auto) (2.0 - 7.6 x10 3/uL) 6.16 Lymph # (Auto) (1.0 - 3.8 x10 3/uL) 3.22 Pitt # (Auto) (0.1 - 0.8 x10 3/uL) [...] pH (5.0 - 7.0) 7.0 Ur Specific [place] (1.005 - 1.030) 1.006 Urine Protein (NEGATIVE) [...] reviewed Sono today: vtx, ant. placenta, EFW 0yjv7ow (1574g, 68%ile), nl range ISMA 15.4, nl [...] with you closely Floor time 80min at 2308 RPT #:[id number] END OF REPORT [facility] 2022-09-07 22:44:00 [facility] ([facility]) OB Medical Screening Exam REPORT#:[id number] REPORT STATUS: Signed DATE:09/07/22 TIME: 4 PATIENT: LUIS EDMONDS UNIT #: [id number] ROOM/BED: [place] [address] : 02 AGE: 21 SEX: F ATTEND: [...] did not leak urine. at 0557 RPT #:[id number] END OF REPORT [facility] 2022-09-07 22:43:00 [facility] ([facility]) [facility] Evaluation Note REPORT#:[id number] REPORT STATUS: Signed DATE:09/07/22 TIME: 2242 PATIENT: LUIS EDMONDS UNIT #: [id number] ROOM/BED: [place] [address] : 02 AGE: 21 SEX: F ATTEND: [...] pH (5.0 - 7.0) 7.0 Ur Specific [place] (1.005 - 1.030) 1.006 Urine Protein (NEGATIVE) [...] counseling/coordination of care: yes at 0549 RPT #:[id number] END OF REPORT [facility] 2022-08-06 11:00:00 [facility] ([facility]) OB Medical Screening Exam REPORT#:[id number] REPORT STATUS: Signed DATE:08/06/22 TIME: 1100 PATIENT: LUIS EDMONDS UNIT #: [id number] ROOM/BED: : 02 AGE: 21 SEX: F ATTEND: Effie Solitario MD ADM AUTHOR: Effie Solitario MD * ALL edits or amendments must be made on the electronic/computer document * Medical Screening Exam Provider Attestation Attestation: The P MSE reviewed. DATE 08/03/2019 Notified at 1523 Provider at bedside at 1523 Comments: 21 Y/O IUP 24 2/7 presents due to cramping. at 1101 RPT #:[id number] END OF REPORT [facility] 2022-08-06 11:00:00 [facility] ([facility]) OLGA Evaluation Note REPORT#:[id number] REPORT STATUS: Signed DATE:08/06/22 TIME: 1100 PATIENT: LUIS EDMONDS UNIT #: [id number] ROOM/BED: : 02 AGE: 21 SEX: F ATTEND: Effie Solitario MD ADM AUTHOR: Effie Solitario MD * ALL edits or amendments must be made on the electronic/computer document * [facility] History Chief complaint: cramping HPI: 21 Y/O IUP 24 2/ presents due to cramping. She refers good [...] Monitor: toco Frequency (description): None Frequency (minutes): CUSTOMER EXPERIENCE ASSOCIATE: Normal exteral genitalia Cervical/ exam: Speculum exam: [...] understanding will have 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 Assessment: no evidence labor Impression: reactive NST Plan: discharge home Plan discussed with: patient, nurse at 1106 RPT #:[id number] END OF REPORT [facility] 2022-03-06 16:08:00 [facility] emergency provider report report#:[id number] report status: signed date:03/06/22 time: 1608 patient: luis edmonds unit #: [id number] room/bed: age: 21 sex: f pcp phys: [...] asdir dme - crutches (crutch set) [facility] of choice patient instructions ed ankle sprain (adult), ed foot sprain, ed rice referrals provider referral: cheli gamino md follow-up: as needed notes: orthopedic surgeon address: [address] [place] [address], [place] [address] provider group: primary care follow-up: 1 week [...] chavez md on 03/06/22 at 1747 rpt #:[id number] end of report [facility] 2021-11-11 00:46:00 [facility] EMERGENCY PROVIDER REPORT REPORT#:[id number] REPORT STATUS: Signed DATE:11/11/21 TIME: 004 PATIENT: LUIS EDMONDS UNIT #: [id number] ROOM/BED: AGE: 20 SEX: F PCP PHYS: [...] sick contacts. General Initial Greet Date/Time 11/11/21 002 Presentation Chief Complaint Pain, lumbar Hx Obtained [...] 76 11/11 0018 O2 Delivery Room air 11/118 Temp 36.4 11/11 0018 Pulse 81 11/11 [...] pH (5.0 - 7.0) 7 Ur Specific [place] (1.005 - 1.030) 1.010 POC Urine Protein [...] a call to 911. at 0107 RPT #:[id number] END OF REPORT [facility] 2021-08-08 22:23:00 [facility] ([facility] EMERGENCY PROVIDER REPORT REPORT#:[id number] REPORT STATUS: Signed DATE:08/08/21 TIME: 2222 PATIENT: LUIS EDMONDS UNIT #: [id number] ROOM/BED: AGE: 20 SEX: F PCP PHYS: [...] department or a call to 911. at [address] [place] [address] #:[id number] END OF REPORT [facility] 2021-03-28 09:04:00 [facility] ([facility]) OB Disch REPORT#:[id number] REPORT STATUS: Signed DATE:03/28/21 TIME: 903 PATIENT: LUIS EDMONDS UNIT #: [id number] ROOM/BED: [place] [address] : 02 AGE: 20 SEX: F ATTEND: [...] date infant A: 03/26/21 Delivery time A: 1807 Birthweight (gm) A: 3200 Feeding preference: Gender A: Female 1 minute A: 8 5 minutes A: 9 10 minutes infant A: Provider comments on imported nursing data: [] Plan: routine care, discharge today Discharge Instructions Instructions: routine instr sheet given Diet: Resume Home Diet/Feeds Activity: Resume Normal Activity Additional discharge routines: None at 0905 RPT #:[id number] END OF REPORT [facility] 2021-03-28 09:03:00 [facility] ([facility]) OB Postpart Progr Note REPORT#:[id number] REPORT STATUS: Signed DATE:03/28/21 TIME: 902 PATIENT: LUIS EDMONDS UNIT #: [id number] ROOM/BED: [place] [address] : 02 AGE: 20 SEX: F ATTEND: [...] routine care, discharge today at 0904 RPT #:[id number] END OF REPORT [facility] 2021-03-27 09:21:00 [facility] ([facility]) OB Postpart Progr Note REPORT#:[id number] REPORT STATUS: Signed DATE:03/27/21 TIME: 920 PATIENT: LUIS EDMONDS UNIT #: [id number] ROOM/BED: [place] [address] : 02 AGE: 20 SEX: F ATTEND: [...] 03/26 1925 78 100 03/26 1920 86.0 09/08 1920 87 120/60 09/08 [...] % (Auto) (14.0 - 32.0 %) 24.9 Pitt % (Auto) (4.8 - 9.0 %) 9.4 H Eos % (Auto) (0.3 - 3.7 %) 0.6 Baso % (Auto) (0.0 - 2.0 %) 0.2 Neut # (Auto) (2.0 - 7.6 x10 3/uL) 8.09 H Lymph # (Auto) (1.0 - 3.8 x10 3/uL) 3.13 Pitt # (Auto) (0.1 - 0.8 x10 3/uL) [...] progress Plan: routine care at 0922 RPT #:[id number] END OF REPORT [facility] 2021-03-26 18:49:00 [facility] ([facility]) OB Delivery Note REPORT#:[id number] REPORT STATUS: Signed DATE:03/26/21 TIME: 1848 PATIENT: LUIS EDMONDS UNIT #: [id number] ROOM/BED: .014-1 : 02 AGE: 20 SEX: F ATTEND: [...] loss at delivery: 50 at 1852 RPT #:[id number] END OF REPORT [facility] 2021-03-26 08:25:00 [facility] ([facility]) DT History Physical REPORT#:[id number] REPORT STATUS: Signed DATE:03/26/21 TIME: 824 PATIENT: LUIS EDMONDS UNIT #: [id number] ROOM/BED: [place] [address] : 02 AGE: 20 SEX: F ATTEND: Luis Burciaga MD ADM AUTHOR: Luis Burciaga MD * ALL edits or amendments must be made on the electronic/computer document * History Physical History Physical Please care records and office H P at 2112 RPT #:[id number] END OF REPORT [facility] 2021-03-12 21:16:00 [facility] ([facility]) OB Medical Screening Exam REPORT#:[id number] REPORT STATUS: Signed DATE:03/12/21 TIME: 2115 PATIENT: LUIS EDMONDS UNIT #: [id number] ROOM/BED: : 02 AGE: 20 SEX: F ATTEND: Effie Solitario MD ADM AUTHOR: Effie Solitario MD * ALL edits or amendments must be made on the electronic/computer document * Medical Screening Exam Provider Attestation Attestation: The QMP MSE reviewed. Provider at bedside at 2113 Comments: 20 y/o GP0 IUP 35 4/7 presents due to leaking of fluid and contractions. at 2152 RPT #:[id number] END OF REPORT [facility] 2021-03-12 21:16:00 [facility] ([facility]) [place] Evaluation Note REPORT#:[id number] REPORT STATUS: Signed DATE:03/12/21 TIME: 2115 PATIENT: LUIS EDMONDS UNIT #: [id number] ROOM/BED: [place] [address] : 02 AGE: 20 SEX: F ATTEND: [...] toco Frequency (description): uterine irritability Frequency (minutes): CUSTOMER EXPERIENCE ASSOCIATE: Normal exteral genitalia Cervical/ exam: Speculum exam: [...] understanding will have 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 Assessment: no evidence labor Impression: reactive NST Plan: discharge home Plan discussed with: patient, nurse at 0104 RPT #:[id number] END OF REPORT [facility] 2021-03-01 06:09:00 [facility] ([facility] [place] Evaluation Note REPORT#:[id number] REPORT STATUS: Signed DATE:03/01/21 TIME: 608 PATIENT: LUIS EDMONDS UNIT #: [id number] ROOM/BED: [place] [address] : 02 AGE: 20 SEX: F ATTEND: [...] 1 TAB PO DAILY 12/25/20 03/01/21 FUMARATE/FA [id number] () Strength: 1 EACH TAB Allergies Uncoded [...] B/P Mean 85.0 03/01 0542 B/P 111/72 08 0542 Pulse 106 03/01 0542 Temp 98.1 [...] Monitor: toco Frequency (description): irregular Frequency (minutes): CUSTOMER EXPERIENCE ASSOCIATE: Normal exteral genitalia Cervical/ exam: Dilatation (cm): [...] AT HER APT WEDNESDAY. at 0854 RPT #:[id number] END OF REPORT [facility] 2021-03-01 06:09:00 [facility] ([facility] OB Medical Screening Exam REPORT#:[id number] REPORT STATUS: Signed DATE:03/01/21 TIME: 608 PATIENT: LUIS EDMONDS UNIT #: [id number] ROOM/BED: [place] [address] : 02 AGE: 20 SEX: F ATTEND: Luis Burciaga MD ADM AUTHOR: Effie Solitario MD * ALL edits or amendments must be made on the electronic/computer document * Medical Screening Exam Provider Attestation Attestation: The QMP MSE reviewed. Provider at bedside at 0600 Comments: IUP 34 0/7 presents due to decreased movements and pelvic pressure. at 0643 RPT #:[id number] END OF REPORT [facility] 2021-03-01 06:09:00 [facility] ([facility]) [place] Evaluation Note REPORT#:[id number] REPORT STATUS: Signed DATE:03/01/21 TIME: 608 PATIENT: LUIS EDMONDS UNIT #: [id number] ROOM/BED: [place] [address] : 02 AGE: 20 SEX: F ATTEND: [...] Monitor: toco Frequency (description): irregular Frequency (minutes): CUSTOMER EXPERIENCE ASSOCIATE: Normal exteral genitalia Cervical/ exam: Dilatation (cm): [...] assume care at 0700 at 0647 RPT #:[id number] END OF REPORT [facility] 2021-02-17 15:34:00 [facility] ([facility] OB Medical Screening Exam REPORT#:[id number] REPORT STATUS: Signed DATE:02/17/21 TIME: 153 PATIENT: LUIS EDMONDS UNIT #: [id number] ROOM/BED: [place] [address] : 02 AGE: 20 SEX: F ATTEND: Effie Solitario MD ADM DT: AUTHOR: Effie Solitario MD * ALL edits or amendments must be made on the electronic/computer document * Medical Screening Exam Provider Attestation Attestation: The QMP MSE reviewed. Provider at bedside at 1537 Comments: 20 y/o IUP 32 2/7 presents due to gush of fluids and cramping. at 1615 RPT #:[id number] END OF REPORT [facility] 2021-02-17 15:34:00 [facility] ([facility]) [place] Evaluation Note REPORT#:[id number] REPORT STATUS: Signed DATE:02/17/21 TIME: 1533 PATIENT: LUIS EDMONDS UNIT #: [id number] ROOM/BED: : 02 AGE: 20 SEX: F [...] Monitor: toco Frequency (description): none Frequency (minutes): CUSTOMER EXPERIENCE ASSOCIATE: Normal exteral genitalia Cervical/ exam: Speculum exam: [...] understanding will have 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 Assessment: no evidence labor Impression: reactive NST Plan: discharge home Plan discussed with: patient, nurse at 1950 RPT #:[id number] END OF REPORT [facility] 2021-02-12 21:22:00 [facility] ([facility]) OB Medical Screening Exam REPORT#:[id number] REPORT STATUS: Signed DATE:02/12/21 TIME: 2121 PATIENT: LUIS EDMONDS UNIT #: [id number] ROOM/BED: : 02 AGE: 20 SEX: F [...] nausea and decreased movements. at 0915 RPT #:[id number] END OF REPORT [facility] 2021-02-12 21:21:00 [facility] ([facility]) [place] Evaluation Note REPORT#:[id number] REPORT STATUS: Signed DATE:02/12/21 TIME: 2120 PATIENT: LUIS EDMONDS UNIT #: [id number] ROOM/BED: : 02 AGE: 20 SEX: F [...] Monitor: toco Frequency (description): none Frequency (minutes): CUSTOMER EXPERIENCE ASSOCIATE: Normal exteral genitalia Cervical/ exam: Speculum exam: no discharge Dilatation (cm): closed Effacement (%): thick station: high FHR evaluation: FHR category: category I Results Findings/Data: Laboratory Tests: 02/12 Miscellaneous Fibronectin (NEGATIVE) NEGATIVE Urines Urine Color (YEL/STRAW) YELLOW Urine Appearance (CLEAR) CLEAR Urine pH (5.0 - 7.0) 6.0 Ur Specific [place] (1.005 - 1.030) 1.006 Urine Protein (NEGATIVE) [...] understanding will have 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 Assessment: no evidence labor Impression: reactive NST Plan: discharge home Plan discussed with: patient, nurse at 0921 RPT #:[id number] END OF REPORT [facility] 2021-01-29 03:41:00 [facility] ([facility]) [place] Evaluation Note REPORT#:[id number] REPORT STATUS: Signed DATE:01/29/21 TIME: 340 PATIENT: LUIS EDMONDS UNIT #: [id number] ROOM/BED: [place] [address] : 02 AGE: 20 SEX: F ATTEND: [...] 0252 B/P 92/51 01/29 0252 Pulse 94 / 0252 Vital Signs Date Temp Pulse Resp [...] pH (5.0 - 7.0) 7.0 Ur Specific [place] (1.005 - 1.030) 1.010 Urine Protein (NEGATIVE) [...] f/u as scheduled with primary OB in [place], [place] at 0355 RPT #:[id number] END OF REPORT [facility] 2021-01-29 03:39:00 [facility] OB Medical Screening Exam REPORT#:[id number] REPORT STATUS: Signed DATE:01/29/21 TIME: 338 PATIENT: LUIS EDMONDS UNIT #: [id number] ROOM/BED: [place] [address] : 02 AGE: 20 SEX: F ATTEND: [...] no lof/rom. no vb. at 0341 RPT #:[id number] END OF REPORT [facility] 2020-12-25 16:25:00 [facility] ([facility]) [place] Evaluation Note REPORT#:[id number] REPORT STATUS: Signed DATE:12/25/20 TIME: 1625 PATIENT: LUIS EDMONDS UNIT #: [id number] ROOM/BED: [place] [address] : 02 AGE: 20 SEX: F ATTEND: [...] She was told in prior u/s at [facility] that ISMA was low, she did have [...] for cxn. Will f/u at 1632 RPT #:[id number] END OF REPORT [facility] 2020-12-25 16:25:00 [facility] ([facility]) [place] Evaluation Note REPORT#:[id number] REPORT STATUS: Signed DATE:12/25/20 TIME: 1624 PATIENT: LUIS EDMONDS UNIT #: [id number] ROOM/BED: [place] [address] : 02 AGE: 20 SEX: F ATTEND: [...] She was told in prior u/s at [facility] that ISMA was low, she did have [...] her OB this week. at 1807 RPT #:[id number] END OF REPORT [facility] 2020-12-25 16:24:00 [facility]) OB Medical Screening Exam REPORT#:[id number] REPORT STATUS: Signed DATE:12/25/20 TIME: 1624 PATIENT: LUIS EDMONDS UNIT #: [id number] ROOM/BED: [place] [address] : 02 AGE: 20 SEX: F ATTEND: Pearl Chavez DO ADM AUTHOR: Pearl Chavez DO * ALL edits or amendments must be made on the electronic/computer document * Medical Screening Exam Provider Attestation Comments: Pt triaged at 1610. at 1625 RPT #:[id number] END OF REPORT [facility] 2020-11-23 00:54:00 [facility]) OB Triage Visit REPORT#:[id number] REPORT STATUS: Signed DATE:11/23/20 TIME: 0054 PATIENT: LUIS EDMONDS UNIT #: [id number] ROOM/BED: [place] [address] : 02 AGE: 19 SEX: F ATTEND: [...] and reassured. Patient recieves [facility] at [facility]. Did not need to wear a ad [...] type ordered Ultrasound complete at 0107 RPT #:[id number] END OF REPORT [facility] 2020-10-05 03:31:00 [facility] ([facility]) EMERGENCY PROVIDER REPORT REPORT#:[id number] REPORT STATUS: Signed DATE:10/05/20 TIME: 033 PATIENT: LUIS EDMONDS UNIT #: [id number] ROOM/BED: AGE: 19 SEX: F PCP PHYS: [...] % (Auto) (28.0 - 48.0 %) 33.4 Pitt % (Auto) (3.0 - 15.0 %) 6.3 Eos % (Auto) (1.0 - 8.0 %) 1.1 Baso % (Auto) (0.0 - 2.0 %) 0.5 Neut # (Auto) (2.0 - 3.2 x10 3/uL) 7.28 H Lymph # (Auto) (1.0 - 3.8 x10 3/uL) 4.17 H Pitt # (Auto) (0.1 - 0.8 x10 3/uL) [...] x10 3/uL) 0.00 Miscellaneous Maternal Serum HCG 24149.3 Urines Urine Color (YEL/STRAW) YELLOW Urine Appearance (CLEAR) CLEAR Urine pH (5.0 - 7.0) 5.0 Ur Specific [place] (1.005 - 1.030) 1.017 Urine Protein (NEGATIVE) [...] SL: TPAINTER-H Impression By: [email or web address] - Abdias Avila M.D. Lab Imaging Statement Laboratory radiographic [...] ... 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 She reports associated [...] No palpable masses or pulsetile masses. Negative Xenia Sign. No TTP at [place] Ext: [...] % (Auto) (28.0 - 48.0 %) 30.6 Pitt % (Auto) (3.0 - 15.0 %) 5.9 Eos % (Auto) (1.0 - 8.0 %) 0.6 L Baso % (Auto) (0.0 - 2.0 %) 0.7 Neut # (Auto) (2.0 - 3.2 x10 3/uL) 6.51 H Lymph # (Auto) (1.0 - 3.8 x10 3/uL) 3.22 Pitt # (Auto) (0.1 - 0.8 x10 3/uL) [...] x10 3/uL) 0.00 Miscellaneous Maternal Serum HCG 86421.6 Urines Urine Color (YEL/STRAW) STRAW Urine Appearance (CLEAR) CLEAR Urine pH (5.0 - 7.0) 6.0 Ur Specific [place] (1.005 - 1.030) 1.008 Urine Protein (NEGATIVE) [...] a call to 911. 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 She reports associated [...] No palpable masses or pulsetile masses. Negative Xenia Sign. No TTP at [place] Ext: [...] % (Auto) (28.0 - 48.0 %) 30.6 Pitt % (Auto) (3.0 - 15.0 %) 5.9 Eos % (Auto) (1.0 - 8.0 %) 0.6 L Baso % (Auto) (0.0 - 2.0 %) 0.7 Neut # (Auto) (2.0 - 3.2 x10 3/uL) 6.51 H Lymph # (Auto) (1.0 - 3.8 x10 3/uL) 3.22 Pitt # (Auto) (0.1 - 0.8 x10 3/uL) [...] x10 3/uL) 0.00 Miscellaneous Maternal Serum HCG 10144.6 Urines Urine Color (YEL/STRAW) STRAW Urine Appearance (CLEAR) CLEAR Urine pH (5.0 - 7.0) 6.0 Ur Specific [place] (1.005 - 1.030) 1.008 Urine Protein (NEGATIVE) [...] a call to 911. Loi Hassan 08/24/20 2338: HPI- Female General Initial Greet Date/Time 08/22/20 2018 Patient Discharge Departure Supervising Physician Note MidLv Saw Pt Alone I have reviewed the PA/BRAKE REPAIRER HYDRAULIC's note and plan of care. I was available for consultation as needed at all times during the patient's visit in the emergency department. I agree with the clinical impression, plan and disposition. at 2346 at 2338 RPT #:[id number] END OF REPORT [facility] 2020-02-15 23:20:00 [facility] ([facility]) EMERGENCY PROVIDER REPORT REPORT#:[id number] REPORT STATUS: Signed DATE:02/15/20 TIME: 232 PATIENT: LUIS EDMONDS UNIT #: [id number] ROOM/BED: AGE: 19 SEX: F PCP PHYS: [...] Covid exposures. General Initial Greet Date/Time 02/15/20 0445 Presentation Chief Complaint Fever, Sore throat Hx [...] Delivery Room air 02/15 2308 Temp 39.1 02/148 Pulse 117 02/14 2308 Resp 18 02/14 [...] (Auto) (28.0 - 48.0 %) 13.9 L [place] % (Auto) (3.0 - 15.0 %) 10.0 Eos % (Auto) (1.0 - 8.0 %) 0.0 L Baso % (Auto) (0.0 - 2.0 %) 0.4 Neut # (Auto) (2.0 - 3.2 x10 3/uL) 9.16 H Lymph # (Auto) (1.0 - 3.8 x10 3/uL) 1.70 Pitt # (Auto) (0.1 - 0.8 x10 3/uL) [...] pH (5.0 - 7.0) 6.0 Ur Specific [place] (1.005 - 1.030) 1.015 Urine Protein (NEGATIVE) [...] 02/15 2312 DC 02/14 Phosphate IV 02/14 Gastrointestinal Drugs Sig/Victoriano Start time Last Medication Dose Route Stop Time Status Admin Ondansetron HCl 4 MG X1ED STA 02/15 2312 DC 02/14 IV 02/14 Patient Discharge Departure Vital Signs/Condition Vital Signs First Documented: Result Date Time Pulse Ox 100 02/14 2308 B/P 112/63 02/14 2308 B/P Mean 79 02/14 2308 O2 Delivery Room air 02/14 230 Temp 39.1 02/14 2308 Pulse 117 02/14 [...] Elina Rome MD (PCP/Family) at 0332 RPT #:[id number] END OF REPORT [facility] 2020-02-15 23:20:00 [facility] ([facility]) EMERGENCY PROVIDER REPORT REPORT#:[id number] REPORT STATUS: Signed DATE:02/15/20 TIME: 2319 PATIENT: LUIS EDMONDS UNIT #: [id number] ROOM/BED: AGE: 19 SEX: F PCP PHYS: Elina Rome MD SERVICE AUTHOR: Amilcar Pablo BRAKE REPAIRER HYDRAULIC * ALL edits or amendments must be [...] Ox 99 02/15 0328 B/P 96/55 02/15 032 B/P Mean 68 02/16 328 O2 Delivery Room air 02/16 328 Temp 36.8 02/16 328 Pulse 83 02/15 0328 Resp 18 02/15 032 Review of Vital Signs Reviewed Free Text [...] (Auto) (28.0 - 48.0 %) 13.9 L [place] % (Auto) (3.0 - 15.0 %) 10.0 Eos % (Auto) (1.0 - 8.0 %) 0.0 L Baso % (Auto) (0.0 - 2.0 %) 0.4 Neut # (Auto) (2.0 - 3.2 x10 3/uL) 9.16 H Lymph # (Auto) (1.0 - 3.8 x10 3/uL) 1.70 Pitt # (Auto) (0.1 - 0.8 x10 3/uL) [...] pH (5.0 - 7.0) 6.0 Ur Specific [place] (1.005 - 1.030) 1.015 Urine Protein (NEGATIVE) [...] 02/15/202254 Patient Discharge Departure Supervising Physician Note Merrick Saw Pt Alone I have reviewed the PA/BRAKE REPAIRER HYDRAULIC's note and plan of care. I was available for consultation as needed at all times during the patient's visit in the emergency department. I agree with the clinical impression, plan and disposition. at 0332 RPT #:[id number] END OF REPORT [facility] 2020-02-15 23:20:00 [facility] ([facility]) EMERGENCY PROVIDER REPORT REPORT#:[id number] REPORT STATUS: Signed DATE:02/15/20 TIME: 2319 PATIENT: LUIS EDMONDS UNIT #: [id number] ROOM/BED: AGE: 19 SEX: F PCP PHYS: Elina Rome MD SERVICE AUTHOR: Amilcar Pablo NP * ALL edits or amendments must be made on the electronic/computer document * Amilcar Pablo 02/15/200: HPI-General Illness Free Text HPI Notes Free [...] 02/15/206: [Embedded Image Not Available] Laboratory Tests: 02/146 [...] (Auto) (28.0 - 48.0 %) 13.9 L [place] % (Auto) (3.0 - 15.0 %) 10.0 Eos % (Auto) (1.0 - 8.0 %) 0.0 L Baso % (Auto) (0.0 - 2.0 %) 0.4 Neut # (Auto) (2.0 - 3.2 x10 3/uL) 9.16 H Lymph # (Auto) (1.0 - 3.8 x10 3/uL) 1.70 Pitt # (Auto) (0.1 - 0.8 x10 3/uL) [...] pH (5.0 - 7.0) 6.0 Ur Specific [place] (1.005 - 1.030) 1.015 Urine Protein (NEGATIVE) [...] Microbiology: Date/Time Procedure - Status Source Growth 02/14 2320 Group A Streptococcus Screen ([facility]ATE[facility]) - RES THROAT 02/14 2320 Streptococcus Culture - RES THROAT Recent Impressions: CAT SCAN - CT NECK W/CONTRAST 02/15 0134 Report Impression - Status: SIGNED Entered: 02/16/2020 0239 IMPRESSION: 1. Enlarged neck lymph nodes bilaterally. Differential consideration would include inflammatory/infectious or metastatic adenopathy. 2. Enlarged right aspect of lingual tonsils. Although this may be due to infectious/inflammatory process, follow-up to resolution recommended. SL: TORI-Elin Impression By: [email or web address] Pati Wolfe M.D. Lab [...] MG X1ED STA 02/142 DC 02/14 IV 02/143 2321 Patient Discharge Departure Vital Signs/Condition Vital Signs First Documented: Result Date Time Pulse Ox 100 02/148 B/P 112/63 02/14 2308 B/P Mean 79 02/15 2308 O2 Delivery Room air 02/15 2308 Temp 39.1 02/15 2308 Pulse 117 02/14 2308 Resp 18 02/14 2308 Last Documented: Result Date Time Pulse Ox 99 02/16 328 B/P 96/55 02/16 328 B/P Mean 68 02/16 328 O2 Delivery Room air 02/16 328 Temp 36.8 02/16 328 Pulse 83 02/158 Resp 18 02/158 All vital signs available at the time [...] augmentin Referrals Elina Rome MD (PCP/Family) Nirav Nloan 02/16/20 0517: HPI-General Illness General Initial Greet Date/Time 02/15/20 2255 Patient Discharge Departure Supervising Physician Note MidLv Saw Pt Alone I have reviewed the PA/BRAKE REPAIRER HYDRAULIC's note and plan of care. I was available for consultation as needed at all times during the patient's visit in the emergency department. I agree with the clinical impression, plan and disposition. 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 Pt reports eating sour Skittles and felt sensation of throat swelling with associated neck/throat itchiness and SOB. 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 Pt was seen here previously on 05/02/19 [...] 05/22 112 O2 Delivery Room air 05/22 1120 Temp 36.7 05/22 112 Pulse 90 05/22 112 Resp 16 05/22 112 Last Documented: Result [...] Dose Route Stop Time Status Admin Ipratropium [place] 0.5 MG Q15M 05/22 1130 DC 05/22 [...] Dr. Toledo. Signed By: Laith Harvey, 05/22/19 112 Provider Scribed Statement I personally performed the services described in this documentation and reviewed the documentation that was dictated to the scribe(s) in my presence, and it accurately records my words and actions. Carla Toledo, 05/22/19 Portions of this section were scribed by Laith Harvey on 05/22/19 at 1129 at 2022 RPT #:[id number] END OF REPORT [facility] 2019-05-02 09:53:00 [facility] ([facility]) EMERGENCY PROVIDER REPORT REPORT#:[id number] REPORT STATUS: Signed DATE:05/02/19 TIME: 952 PATIENT: LUIS EDMONDS UNIT #: [id number] ROOM/BED: AGE: 18 SEX: F PCP PHYS: Elina Rome MD SERVICE AUTHOR: Carla Toledo MD * ALL edits or amendments must be made on the electronic/computer document * HPI-Allergic Reaction Peds General Confirmed Patient Yes Initial Greet Date/Time 05/02/[address] 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 Now c/o itchy throat. Denies nausea and [...] Portions of this section were scribed by rPiscilla Edwards on 05/02/19 at 0957 Past Medical [...] 18 05/02 944 O2 Delivery Room air 05/020 Last Documented: Result Date Time Pulse Ox [...] 3 ML X1ED STA 05/02 0953 DC 10/15 NEB 05/02 0954 1002 Gastrointestinal Drugs Sig/Victoriano Start time Last Medication Dose Route Stop Time Status Admin Famotidine 20 MG X1ED STA 05/02 0953 DC 10/15 IV 05/02 0954 1002 Hormones And Synthetic Substit Sig/Victoriano Start time Last Medication Dose Route Stop Time Status Admin Methylprednisolone 125 MG X1ED STA 05/02 0953 DC 10 Sodium Succinate IV 05/02 954 1002 Portions [...] Priscilla Edwards on 05/02/19 at 0957 at 1431 RPT #:[id number] END OF REPORT [facility]
[2024-09-04] MEDS ORDERED: MORPHINE 4 MG/ML SYR ONE (23:24)
[2024-09-04] MEDS ORDERED: NA CHLORIDE 0.9% 1,000 ML ONE (23:24)
[2024-09-04] MEDS ORDERED: KETOROLAC 30 MG/ML INJ ONE (23:24)
[2024-09-04] MEDS ORDERED: ONDANSETRON 4 MG/2 ML VIAL ONE (23:24)
[2024-09-04 23:57] LABS: Absolute Basophils 0.1 K/uL (0-0.5); Absolute Eosinophils 0.1 K/uL (0-0.5); Absolute Lymphocytes (CBC) 2.8 K/uL (0.7-4.9); Absolute Monocytes 0.5 K/uL (0.1-1.3); Absolute Neutrophil 7.5 K/uL (1.8-8.0); Basophils % 0.5 % (0-1.3); Eosinophils % 0.6 % (0-4.4); Hematocrit 38.1 % (36.0-45.0); Hemoglobin 12.4 g/dL (12.0-15.0); Lymphocytes % 25.6 % (15.3-44.8); MCH 29.4 pg (27.0-35.0); MCHC 32.6 g/dL (32.0-36.0); MPV 8.6 fL (7.6-11.3); Monocytes % 4.9 % (3.3-12.3); Neutrophils % 68.4 % (41.7-73.7); Nucleated Red Blood Cells % 0.1 % (0-0); Platelets 256 thou/uL (152-406); RBC Red Blood Cell Count 4.23 M/uL (3.86-4.86); Red Cell Distribution Width 13.8 % (12.1-15.2)
[2024-09-05 00:02] LABS: Anion Gap 8.8 mEq/L (5.0-15.0); Potassium 3.8 mEq/L (3.5-5.1)
[2024-09-05] MEDS ORDERED: METOCLOPRAMIDE 10 MG/2mL INJ ONE (02:39)
[2024-09-05] MEDS ORDERED: dexAMETHasone 10 MG/ML VIAL ONE (02:39)
[2024-09-05] MEDS ORDERED: DIPHENHYDRAMINE 50 MG/ML VIAL ONE (02:39)
[2024-09-05] MEDS ORDERED: MORPHINE 4 MG/ML SYR ONE (02:40)
[2024-09-05] MEDS ORDERED: NA CHLORIDE 0.9% 1,000 ML ONE (02:40)
--- NOTE | 2024-09-05 05:46 | RAD REPORT ---
EXAM: CT Chest, Abdomen and Pelvis With Intravenous Contrast CLINICAL HISTORY: The patient is 23 years old and is Female; Chest pain. TECHNIQUE: Axial computed tomography images of the chest, abdomen and pelvis with intravenous contr ast. Sagittal and coronal reformatted images were created and reviewed. This CT exam was performed using one or more of the following dose reduction techniques: automated exposure control, adjustment of the mA and/or kV according to patient size, and/or use of iterative reconstruction technique. COMPARISON: CT Abdomen pelvis 05/02/2023. FINDINGS: CHEST: Lungs: Unremarkable. No mass. No consolidation or ground glass opacities. Pleural space: No pleural effusion or pneumothorax. Heart: Unremarkable. No cardiomegaly. No significant pericardial effusion. No significant c oronary artery calcifications. Mediastinum: Small amount of residual thymus tissue. ABDOMEN: Liver: Unremarkable. No mass. Gallbladder and bile ducts: Unremarkable. No calcified stones. No ductal dilation. Pancreas: No findings to suggest acute pancreatitis. No mass visualized. No ductal dilation. Spleen: Unremarkable. No splenomegaly. Adrenals: Unremarkable. No mass. Kidneys and ureters: Unremarkable. No hydronephrosis. No solid mass. Stomach and bowel: No bowel dilatation or obstruction. No bowel wall thickening. PELVIS: Appendix: Appendectomy. Bladder: Unremarkable. No mass. Reproductive: 1.8 cm right ovarian corpus luteum. Uterus and left ovary are unremarkable. CHEST, ABDOMEN and PELVIS: Intraperitoneal space: Free fluid in the cul-de-sac, likely physiologic. No free air. Bones/joints: No acute fracture visualized. No significant arthropathy in the hips or shoulders. No dislocation. Soft tissues: Unremarkable. Vasculature: Unremarkable. No aortic aneurysm. Lymph nodes: Unremarkable. No enlarged lymph nodes. IMPRESSION: 1. No acute cardiopulmonary or intra-abdominal findings. 2. Small amount of residual thymus tissue. 3. 1.8 cm right ovarian corpus luteum. No follow-up imaging recommended. Electronically signed by: Julia Elizabeth MD 09/05/2024 05:19 AM [facility] V2 Due to temporary technical issues with the PACS/Gaikai reporting system, reports are being jimbo d by the in-house radiologist without review as a courtesy to ensure prompt reporting the interpreting radiologist is fully responsible for the content of the report. Transcribed Date/Time: 09/05/2024 5:46 AM
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
[2024-09-05 08:06] VITALS: TEMP 98.6
[2024-09-05 08:08] VITALS: BP 103/57; O2SAT 99
== END 2024-09-05 06:02 | disposition home or self-care (01) ==
LOC: ER 22:22
DX: S30.1XXA Contusion of abdominal wall, initial encounter (principal); V49.59XA Passenger injured in collision with other motor vehicles in traffic accident, initial encounter; G44.319 Acute post-traumatic headache, not intractable; R10.2 Pelvic and perineal pain; G44.209 Tension-type headache, unspecified, not intractable; F17.290 Nicotine dependence, other tobacco product, uncomplicated
CPT/HCPCS: 36415; 70450; 71260; 72125; 74177; 80048; 84703; 85025; 86850; 86900; 86901; J1100; J1200; J2405; J2765; J7030; Q9967

== ENCOUNTER 2025-03-01 17:51 | Emergency (ER) | payer SELFPAY ==
--- OUTSIDE RECORDS SUMMARY | 2025-03-01 18:01 | XMS REPORT | Continuity of Care Document ---
Author Name Unknown Address [address] [place] [address] [facility] [place] Address [address] [place] [address] Care Team Providers Care Diet Counselor Name Role Phone FREDERICK RICHARDSON Joceline Primary Care Physician Unavailab Brittnee Acosta Attending Clinician UnavailMADHAVI Garnett Attending Clinician Unavailable MERT MILES Attending Clinician Unavailable MERT MILES Attending Clinician Unavailable PHILL ROMAN Attending Clinician UnavailPhill Garnett MD Attending Clinician [phone] Luis Burciaga Attending Clinician UnavailSUZY Malcolm Attending Clinician Unavailable Suzy Uriostegui MD Attending Clinician [phone] Effie Marquez Attending Clinician Unava ilANTONIA Ken Attending Clinician Unavailable Antonia Pike MD Attending Clinician [phone] Ghanshyam Chavez Attending Clinician Tierney vilma Nurse, Osvaldo Evangelista Attending Clinician Unavaila Frederick Herrear MD Attending Clinician [phone] FREDERICK RICHARDSON Attending Clinician Unavailable AR RICHARDSON Attending Clinician Unavailable Ar Richardson MD Attending Clinician [phone] Kishor Bishop Attending Clinician Unavailable ELINA ROME Attending Clinician Unavailable Madhavi Roman PA-C Attending Clinician [phone] Dottie Chavez Attending Clinician UnavailZachery KIMP, Nathalia Cagle Attending Clinician [phone] Ny Khan MD Attending Clinician [phone] Olivier PROGRESSIVE CARE MANAGER, Aneta Esparza Attending Clinician [phone] Unknown, Attending Attending Clinician Unavailab miah LOPEZ, ATTENDING Attending Clinician Unavailab Pearl Petersen Attending Clinician Unavailajs Noble RN, Tashia Rae Attending Clinician Unavailab miah Last PROGRESSIVE CARE MANAGER, Lily Hummel Attending Clinician [phone] Maryellen PICKERING, Lydia Hilton Attending Clinician [phone] Doctor Unassigned, Odem Attending Clinician U raoulailisha HEREDIA, Liberty Attending Clinician [phone] LIBERTY CAMP Attending Clinician Unavailable Wiliam KIMP, Antonia Attending Clinician + [phone] Dagoberto SPRAY FOAM INSTALLER, Kassidy Cagle Attending Clinician [phone] Rajan PICKERING, Elina Pandey Attending Clinici an KASSIDY ARENAS Attending Clinician Unavailab REJI Bose Attending Clinician Unavailable Ivet PICKERING, Aiden Conde Attending Clinician [phone] SOSA ADAMES Attending Clinician Unavailable Sosa Adames MD Attending Clinician [phone] Santiago COLE, Sandra Hilton Attending Clinician Unavaila Ashley Schafer DO Attending Clinician + [phone] Orquidea PICKERING, Mike Jaffe Attending Clinician [phone] Shahnaz MIRELES, Sujata Attending Clinician SUZY URIOSTEGUI Admitting Clinician Unavailable [place] KHAN Admitting Clinician Unavailable Brittnee Ramirez Admitting Clinician UnavailElina Chavez Admitting Clinician Unavail able PHILL ROMAN Admitting Clinician UnavailPhill Garnett MD Admitting Clinician [phone] Luis Burciaga Admitting Clinician UnavailSuzy Malcolm MD Admitting Clinician [phone] Emily Artis Admitting Clinician UnavailANTONIA Samaniego Admitting Clinician Unavailable Effie Solitario Admitting Clinician Unaalondra ilisha Physician, No Primary or Family Admitting Clinic lizzeth Unavailable Dottie Chavez Admitting Clinician UnavailNy Frederick MD Admitting Clinician [phone] Pearl Chavez Admitting Clinician UnavailSOSA Bae Admitting Clinician Unavailable Payers Payer Name Policy Type Policy Number Effective Date Expirati on Date Source [facility] [id number] 2023 00:00:00 [facility] [id number] 00:00:00 [facility] [id number] 2023 00:00:00 Problems Condition Name Condition Details [...] [facility] [place] Allergies, Adverse Reactions, Alerts Allergy Name Allergy [...] 00:00: 00 [facility] MALIC ACID DA Active SV TONGUE SWELLING, THROAT CLOSING 12-24 00:00: 00 [facility] Malic Acid Drug Allergy Active Swelling 12-24 00:00: 00 [facility] MALIC ACID DRUG INGREDI Active High Swelling 12-24 00:00: 00 [facility] SOUR MOREAU DRUG INGREDI Active Anaphylaxis 11-15 00:00: 00 [facility] Sour Moreau Propensi ty to adverse reaction s Active Anaphylaxis 11-15 00:00: 00 Sour flavoring on all candy [facility] Social History Social Habit Start Date Stop Date Quantity Comments Source ASSERTION 2022-02-27 00:00:00 [facility] Sexual orientation U [facility] Alcohol intake 2023-05-03 00:00:00 2023-05-03 00:00:00 Ex-drinker (finding) [facility] Exposure to SARS-CoV-2 (event) 2022-10-07 00:00:00 2022-10-17 15:17:00 Not sure [facility] History of Social function 2022-02-25 00:00:00 2022-02-25 00:00:00 [facility] Tobacco use and exposure 2022-02-25 00:00:00 2022-02-25 00:00:00 Smokeless tobacco non-user [facility] Sex Assigned At 2002 00:00:00 2000 00:00:00 [facility] Smoking Status Start Date Stop Date Source Never smoked tobacco [facility] Medications Ordered Medication Name Filled Medication Name Start Date Stop Date Current Medication? Ordering Clinician Indication Dosage Frequency Signature (SIG) Comments Components Source ibuprofen (IBU) tablet 400 mg 2022-07 15:00: 00 Yes 400mg 400 mg, Oral, Q8H, First dose on 05/03/23 at 1000, Until Discontinu ed, Routine [facility] SERTraline 25 mg tablet 2022-07 12:24: 34 Yes 25mg Take 1 tablet by mouth in the morning. [facility] ketorolac (TORADOL) injection 30 mg 2022-07 04:00: 00 05-03 03:38 :00 No 30mg 30 mg, Slow IV Push, ONCE, 1 dose, On 05/02/23 at 2300, Routine [facility] ibuprofen 400 mg tablet 2022-07 00:00: 00 05-11 04:59 :00 No [id number] 400mg Take 1 tablet by mouth every [facility] lactated ringers IV infusion 1,000 mL 2022-07 17:15: 00 Yes 1000mL at 100 mL/hr, 1,000 mL, IV Infusion, CONTINUOUS , Starting on Wed05/02/23 at 1215, Until Discontinu ed, Routine, PACU [facility] HYDROcodone -acetaminop hen (NORCO 5) 5-325 mg tablet 1 tablet 2022-07 17:15: 00 05-02 17:48 :00 No 1{tbl} 1 tablet, Oral, ONCE, 1 dose, On Wed05/02/23 at 1215, Routine, PACU [facility] FENTanyl PF (SUBLIMAZE (PF)) injection 25 mcg 2022-07 17:13: 49 05-02 18:23 :47 No 25ug 25 mcg, Slow IV Push, Q5MIN PRN, 4 doses, Starting on Wed05/02/23 at 1213, Until [place] 05/02/23 at 1323, Routine, Pain (scale 4-6), PACU [facility] HYDROcodone -acetaminop hen (NORCO 5) 5-325 mg tablet 1 tablet 2022-07 16:58: 20 Yes 1{tbl} 1 tablet, Oral, Q4HPRN, Starting on Wed05/02/23 at 1158, Until Discontinu ed, Routine, Pain (scale 4-6) [facility] sodium chloride 0.9 % irrigation solution 2022-07 16:49: 00 05-02 17:12 :46 No PRN, Starting on Wed05/02/23 at 1149, Until Wed05/02/23 at 1212, Intra-op [facility] bupivacaine (preserv free) (SENSORCAIN E MPF) 0.25 % (2.5 mg/mL) injection 2022-07 16:35: 00 05-02 17:12 :46 No PRN, Starting on Wed05/02/23 at 1135, Until Wed05/02/23 at 1212, Routine, Intra-op [facility] NaCl 0.9% (NS) IV infusion [...] 2020-07 00:00: 00 05-02 00:00 :00 No [id number] SPRAY 1 SPRAY INTO EACH NOSTRIL EVERY DAY [facility] EPINEPHrine 0.3 mg/0.3 mL injection 2019-07 00:00: 00 Yes [id number] INJECT 0.3 ML BY INTRAMUSCU LAR ROUTE ONCE NOW FOR 1 DOSE. [facility] Immunizations Ordered Immunization Name Filled Immunization Name Date Status Comments Source DTP 2023-05-02 11:24:00 Completed [facility] HIB 3 Dose Schedule 2023-05-02 11:24:00 Completed [facility] HEPATITIS A 2023-05-02 11:24:00 Completed [facility] Hep B, Adol or Pedi Dosage 2023-05-02 11:24:00 Completed [facility] MMR 2023-05-02 11:24:00 Completed [facility] Polio (IPV/OPV) 2023-05-02 11:24:00 Completed [facility] Meningococcal Polysaccharide (groups A, C, Y and W-135) conjugate vaccine (MCV4P) 2023-05-02 11:24:00 Completed [facility] Pneumococcal 7 Conjugate, PCV7 (Prevnar7) 2023-05-02 11:24:00 Completed [facility] DTP 2023-05-02 03:19:00 Completed [facility] HIB 3 Dose Schedule 2023-05-02 03:19:00 Completed [facility] HEPATITIS A 2023-05-02 03:19:00 Completed [facility] Hep B, Adol or Pedi Dosage 2023-05-02 03:19:00 Completed [facility] MMR 2023-05-02 03:19:00 Completed [facility] Polio (IPV/OPV) 2023-05-02 03:19:00 Completed [facility] Meningococcal Polysaccharide (groups A, C, Y and W-135) conjugate vaccine (MCV4P) 2023-05-02 03:19:00 Completed [facility] Pneumococcal 7 Conjugate, PCV7 (Prevnar7) 2023-05-02 03:19:00 Completed [facility] Meningococcal Polysaccharide (groups A, C, Y and W-135) conjugate vaccine (MCV4P) 2019-02-23 00:00:00 Completed [facility] Meningococcal Polysaccharide (groups A, C, Y and W-135) conjugate vaccine (MCV4P) 2019-02-23 00:00:00 Completed [facility] DTP 2005-01-21 00:00:00 Completed [facility] HIB 3 Dose Schedule 2005-01-21 00:00:00 Completed [facility] HEPATITIS A 2005-01-21 00:00:00 Completed [facility] Pneumococcal 7 Conjugate, PCV7 (Prevnar7) 2005-01-21 00:00:00 Completed [facility] DTP 2005-01-21 00:00:00 Completed [facility] HIB 3 Dose Schedule 2005-01-21 00:00:00 Completed [facility] HEPATITIS A 2005-01-21 00:00:00 Completed [facility] Pneumococcal 7 Conjugate, PCV7 (Prevnar7) 2005-01-21 00:00:00 Completed [facility] MMR 2003-12-25 00:00:00 Completed [facility] Polio (IPV/OPV) 2003-12-25 00:00:00 Completed [facility] Pneumococcal 7 Conjugate, PCV7 (Prevnar7) 2003-12-25 00:00:00 Completed [facility] MMR 2003-12-25 00:00:00 Completed [facility] Polio (IPV/OPV) 2003-12-25 00:00:00 Completed [facility] Pneumococcal 7 Conjugate, PCV7 (Prevnar7) 2003-12-25 00:00:00 Completed [facility] DTP 2003-06-19 00:00:00 Completed [facility] HIB 3 Dose Schedule 2003-06-19 00:00:00 Completed [facility] Hep B, Adol or Pedi Dosage 2003-06-19 00:00:00 Completed [facility] Polio (IPV/OPV) 2003-06-19 00:00:00 Completed [facility] DTP 2003-06-19 00:00:00 Completed [facility] HIB 3 Dose Schedule 2003-06-19 00:00:00 Completed [facility] Hep B, Adol or Pedi Dosage 2003-06-19 00:00:00 Completed [facility] Polio (IPV/OPV) 2003-06-19 00:00:00 Completed [facility] Hep B, Adol or Pedi Dosage 2002 00:00:00 Completed [facility] Hep B, Adol or Pedi Dosage 2002 00:00:00 Completed [facility] Vital Signs Vital Name Observation Time Observation Value Comments S ource Systolic blood pressure 2023-05-03 12:17:00 101 mm[Hg] Elizabeth o [facility] Diastolic blood pressure 2023-05-03 12:17:00 59 mm[Hg] Elizabeth o [facility] Heart rate 2023-05-03 12:17:00 68 /[facility] 2023-05-03 12:17:00 36.22 Harmony [facility] Respiratory rate 2023-05-03 12:17:00 18 /min [facility] Oxygen saturation in Arterial blood by Pulse oximetry 2023-05-03 12:17:00 96 /min [facility] Body weight 2023-05-03 08:19:00 70.126 kg [facility] BMI 2023-05-03 08:19:00 28.28 kg/m2 [facility] Body height 2023-05-02 08:25:00 157.5 cm [facility] Systolic blood pressure 2023-05-02 18:25:00 97 mm[Hg] [facility] Diastolic blood pressure 2023-05-02 18:25:00 60 mm[Hg] [facility] Heart rate 2023-05-02 18:25:00 59 /min [facility] Body temperature 2023-05-02 18:25:00 36.11 [place] [facility] Respiratory rate 2023-05-02 18:25:00 18 /min [facility] Oxygen saturation in Arterial blood by Pulse oximetry 2023-05-02 18:25:00 100 /min [facility] Body height 2023-05-02 08:25:00 157.5 cm [facility] Body weight 2023-05-02 08:25:00 69.037 kg [facility] BMI 2023-05-02 08:25:00 28.28 kg/m2 [facility] Systolic blood pressure 2022-10-17 20:18:00 99 mm[Hg] [facility] Diastolic blood pressure 2022-10-17 20:18:00 63 mm[Hg] [facility] Body temperature 2022-10-17 20:18:00 36.78 [place] [facility] Respiratory rate 2022-10-17 20:18:00 16 /min [facility] Heart rate 2022-10-17 19:56:00 92 /min [facility] Body height 2022-10-17 19:56:00 157.5 cm [facility] Body weight 2022-10-17 19:56:00 71.668 kg [facility] BMI 2022-10-17 19:56:00 28.90 kg/m2 [facility] Oxygen saturation in Arterial blood by Pulse oximetry 2022-10-17 19:56:00 99 /min [facility] Procedures Procedure Date / Time Performed Performing Clinician Source CBC WITH DIFF 2023-05-03 11:31:00 Celso [facility] CBC WITH DIFF 2023-05-03 11:31:00 Celso [facility] LAPAROSCOPIC APPENDECTOMY 2023-05-02 15:50:00 Miles, [facility] LAPAROSCOPIC APPENDECTOMY 2023-05-02 15:50:00 Miles, [facility] POCT TEST 2023-05-02 15:31:00 Miles, [facility] POCT TEST 2023-05-02 15:31:00 Miles, [facility] MAGNESIUM 2023-05-02 10:15:00 Phill Roman [facility] HEPATIC FUNCTION PANEL (85046) (ALB,T.PRO,BILI T,BU/BC,ALT,AST,ALK PHOS) 2023-05-02 10:15:00 Phill Roman [facility] BASIC METABOLIC PANEL (NA, K, CL, CO2, GLUCOSE, BUN, CREATININE, CA) 2023-05-02 10:15:00 Phill Roman [facility] CBC WITH DIFF 2023-05-02 10:15:00 [facility] 2023-05-02 10:15:00 Phill Roman [facility] HEPATIC FUNCTION PANEL (07323) (ALB,T.PRO,BILI T,BU/BC,ALT,AST,ALK PHOS) 2023-05-02 10:15:00 Phill Roman [facility] BASIC METABOLIC PANEL (NA, K, CL, CO2, GLUCOSE, BUN, CREATININE, CA) 2023-05-02 10:15:00 Phill Roman [facility] CBC WITH DIFF 2023-05-02 10:15:00 [facility] [id number] 2022-10-31 00:00:00 MAXBA [facility] [id number] 2022-10-30 00:00:00 MAXBA [facility] [id number] 2021-03-26 00:00:00 MAXBA [facility] [id number] 2021-03-26 00:00:00 MAXBA [facility] Encounters Start Date/Time End Date/Time Encounter Type Admission Type Attending Clinicians Care Facility Care Department Encounter ID Source 2022-10-17 17:56:29 Outpatient X [facility] [id number] [facility] 2021-05-19 04:10:53 Outpatient X [facility] [id number] [facility] 2021-05-19 04:10:48 Emergency [facility] [id number] [facility] 2021-05-18 12:59:52 Emergency [facility] [id number] [facility] 2021-05-18 03:01:47 Emergency [facility] [id number] [facility] 2020-11-23 00:57:29 Inpatient Brittnee Ramirez HCACL HCACL [id number] [facility] 2020-10-05 01:43:54 Inpatient HCACL HCACL [id number] [facility] 2020-08-22 20:18:00 Inpatient HCACL KAELA [id number] [facility] 2020-02-15 22:49:00 Inpatient HCACL KAELA [id number] [facility] 2023-08-23 13:00:00 2023-08-23 13:00:00 Outpatient MADHAVI MCNAIR [facility] [id number] [facility] 2023-05-24 13:00:00 2023-05-24 13:00:00 Outpatient MERT [facility] [id number] [facility] 2023-05-02 03:19:00 2023-05-03 12:20:00 Outpatient U PHILL ROMAN [facility] OLAYINKA [id number] [facility] 2023-05-02 03:19:00 2023-05-03 12:20:00 Hospital Encounter Phill Roman. [facility] [id number] 350.1.13.10 [id number] [id number] [facility] 2023-05-02 11:24:00 2023-05-02 13:33:00 Surgery Mert Miles [facility] [place] [id number] 350.1.13.10 4.2.7.2.686 [id number] [facility] 2022-10-30 19:17:00 2022-11-02 18:53:00 Inpatient EL Roelashleigh, Luis HCACL OBPP [id number] [facility] 2022-10-17 14:59:00 2022-10-17 17:00:00 Outpatient X GIOVANA SUZY [facility] [id number] [facility] 2022-10-17 14:59:00 2022-10-17 17:00:00 [facility] [id number] [id number] 4.2.7.2.686 [id number] [facility] 2022-09-26 22:39:00 2022-09-27 17:00:00 Inpatient EM Maximashleigh, Luis HCACL OBANTE [id number] [facility] 2022-09-07 23:59:00 2022-09-14 10:45:00 Inpatient EM Maximashleigh, Luis HCACL OBANTE [id number] [facility] 2022-08-03 15:04:00 2022-08-03 16:59:00 Emergency EM Effie Ramsay HCACL OLGA [id number] [facility] 2022-03-20 14:10:00 2022-03-20 14:10:00 Outpatient ANTONIA CAPPS [facility] [id number] [facility] 2022-03-20 00:00:00 2022-03-20 00:00:00 Telephone Antonia P[facility] 1.114 350.1.13.10 4.2.7.2.686 [id number] [facility] 2022-03-16 14:10:00 2022-03-16 14:10:00 Outpatient ANTONIA CAPPS [facility] [id number] [facility] 2022-03-13 13:30:00 2022-03-13 13:30:00 Outpatient ANTONIA CAPPS [facility] [id number] [facility] 2022-03-13 11:10:00 2022-03-13 11:10:00 Outpatient ANTONIA CAPPS [facility] [id number] [facility] 2022-03-06 15:06:00 2022-03-06 16:12:00 Emergency EM Darshanlary Ghanshyam HCACL AERS [id number] [facility] 2022-03-04 00:00:00 2022-03-04 00:00:00 Telephone Antonia Pike [facility] 1..114 350.1.13.10 4.2.7.2.686 [id number] [facility] 2022-03-03 00:00:00 2022-03-03 00:00:00 Telephone Antonia Pike [facility] 1..114 350.1.13.10 4.2.7.2.686 [id number] [facility] 2022-03-02 17:43:24 2022-03-02 23:59:00 Outpatient R ANTONIA PIKE [facility] [id number] [facility] 2022-03-02 17:43:24 2022-03-02 23:59:00 Outpatient R ANTONIA PIKE [facility] [id number] [facility] 2022-03-02 17:30:00 2022-03-02 23:59:00 Hospital Encounter Antonia Pike [facility] 1.114 350.1.13.10 4.2.7.2.686 [id number] [facility] 2022-02-26 14:50:00 2022-02-26 15:10:00 Nurse Visit Nurse, Frederick Miller [facility] 1.114 350.1.13.10 4.2.7.2.686 [id number] [facility] 2022-02-26 14:50:00 2022-02-26 14:50:00 Outpatient FREDERICK CORRAL [facility] [id number] [facility] 2022-02-25 14:45:00 2022-02-25 23:59:00 Outpatient R PIKEANTONIA ASHER [facility] [id number] [facility] 2022-02-25 14:45:00 2022-02-25 23:59:00 Hospital Encounter Antonia Pike [facility] 1.114 350.1.13.10 4.2.7.2.686 [id number] [facility] 2022-02-25 13:50:00 2022-02-25 15:29:57 Outpatient R ANTONIA PIKE [facility] [id number] [facility] 2022-02-25 13:50:00 2022-02-25 15:29:57 Office Visit Antonia Pike [facility] [id number] 350.1.13.10 4.2.7.2.686 [id number] [facility] 2022-02-23 15:50:00 2022-02-23 15:50:00 Outpatient R ANTONIA PIKE [facility] [id number] [facility] 2022-02-12 21:31:00 2022-02-12 22:34:00 Emergency X [facility] [id number] [facility] 2022-02-12 21:31:00 2022-02-12 22:34:00 Emergency Debra [facility] 1..114 350.1.13.10 4.2.7.2.686 [id number] [facility] 2021-11-11 00:16:00 2021-11-11 00:55:00 Emergency EM Kishor Bishop HCACL AERS [id number] [facility] 2021-11-04 15:30:00 2021-11-04 15:30:00 Outpatient R ELINA ROME [facility] [id number] [facility] 2021-08-08 22:06:00 2021-08-08 22:30:00 Emergency EM Ghanshyam Chavez HCACL AERS [id number] [facility] 2021-06-13 00:00:00 2021-06-13 00:00:00 Refill Madhavi Roman [facility] 1.114 350.1.13.10 4.2.7.2.686 [id number] [facility] 2021-05-12 13:41:54 2021-05-12 14:13:40 Office Visit Madhavi Roman [facility] 1.114 350.1.13.10 4.2.7.2.686 [id number] [facility] 2021-05-12 13:30:00 2021-05-12 13:30:00 Outpatient MADHAVI MCNAIR [facility] [id number] [facility] 2021-03-25 14:56:00 2021-03-28 15:32:00 Inpatient EL Luis Burciaga HCACL OBPP [id number] [facility] 2021-03-12 21:07:00 2021-03-13 01:05:00 Emergency EM Effie Solitario HCACL OLGA [id number] [facility] 2021-03-01 05:33:00 2021-03-01 09:00:00 Emergency EM Luis Burciaga HCACL OLGA [id number] [facility] 2021-02-17 15:17:00 2021-02-17 16:47:00 Emergency EM Effie Solitario HCACL OLGA [id number] [facility] 2021-02-12 19:14:00 2021-02-12 22:29:00 Emergency EM Effie Solitario HCACL OLGA [id number] [facility] 2021-01-29 02:30:00 2021-01-29 03:50:00 Emergency EM Dottie Chavez HCACL OLGA [id number] [facility] 2021-01-13 01:18:00 2021-01-13 02:30:00 Emergency CacNathalia de la cruz Tsering Khan [facility] [id number] 350.1.13.10 4.2.7.2.686 [id number] 2021-01-13 01:18:00 2021-01-13 02:30:00 Emergency CacNathalia de la cruz Bill [facility] 1.2.840.114 350.1.13.10 4.2.7.2.686 [id number] [facility] 2021-01-11 17:51:24 2021-01-11 18:25:45 Urgent Care Aneta Aguayo [facility] 1..114 350.1.13.10 4.2.7.2.686 [id number] 2021-01-11 17:51:24 2021-01-11 18:25:45 Urgent Care nAeta Aguayo Vilma Unknown, Attending [facility] 1.114 350.1.13.10 4.2.7.2.686 [id number] [facility] 2021-01-11 18:00:00 2021-01-11 18:00:00 Outpatient R UNKNOWN, ATTENDING [facility] [id number] [facility] 2020-12-25 15:08:00 2020-12-25 18:26:00 Emergency EM Pearl Chavez [facility] [id number] [facility] 2020-11-23 00:02:00 2020-11-23 02:58:00 Emergency EM Brittnee Ramirez [facility] [id number] [facility] 2020-11-01 00:00:00 2020-11-01 00:00:00 Letter (Out) [facility] 1.0.114 350.1.13.10 4.2.7.2.686 [id number] 2020-11-01 00:00:00 2020-11-01 00:00:00 [facility] 1.0.114 350.1.13.10 4.2.7.2.686 [id number] [id number] [facility] 2020-10-30 22:11:00 2020-10-31 00:46:00 Emergency Lily Last [facility] 1.840.114 350.1.13.10 4.2.7.2.686 [id number] 2020-10-30 22:11:00 2020-10-31 00:46:00 Emergency Lily Last [facility] 1.2.840.114 350.1.13.10 4.2.7.2.686 [id number] 084 [id number] [facility] 2020-10-26 18:33:25 2020-10-26 19:03:11 Urgent Care Aneta Aguayo [facility] 1.2840.114 350.1.13.10 4.2.7.2.686 [id number] 2020-10-26 18:33:25 2020-10-26 19:03:11 Urgent Care Aneta Aguayo Unknown, Attending [facility] 1.2840.114 350.1.13.10 4.2.7.2.686 [id number] [facility] 2020-10-26 19:00:00 2020-10-26 19:00:00 Outpatient R UNKNOWN, ATTENDING [facility] [id number] [facility] 2020-09-18 23:47:00 2020-09-19 01:47:00 Emergency Lydia Bojorquez [facility] 1.2840.114 350.1.13.10 4.2.7.2.686 [id number] 084 [id number] 2020-09-18 23:47:00 2020-09-19 01:47:00 Emergency Lydia Bojorquez [facility] 1.2840.114 350.1.13.10 4.2.7.2.686 [id number] 084 [id number] [facility] 2020-09-18 00:00:00 2020-09-18 00:00:00 Orders Only Doctor Unassigned, Odem [facility] 1.2.840.114 350.1.13.10 4.2.7.2.686 [id number] 2020-09-18 00:00:00 2020-09-18 00:00:00 Orders Only Doctor Unassigned, Odem [facility] 1.2.840.114 350.1.13.10 4.2.7.2.686 [id number] [facility] 2020-08-22 15:52:31 2020-08-22 16:12:31 Office Visit Madhavi Roman [facility] 1.2.840.114 350.1.13.10 4.2.7.2.686 [id number] 2020-08-22 15:52:31 2020-08-22 16:12:31 Office Visit Madhavi Roman [facility] 1.2.840.114 350.1.13.10 4.2.7.2.686 [id number] [facility] 2020-08-22 16:00:00 2020-08-22 16:00:00 Outpatient MADHAVI MCNAIR [facility] [id number] [facility] 2020-08-22 13:40:00 2020-08-22 13:40:00 Outpatient MADHAVI MCNAIR [facility] [id number] [facility] 2020-08-13 00:00:00 2020-08-13 00:00:00 Telephone [facility] 1.2.840.114 350.1.13.10 4.2.7.2.686 [id number] 225 [id number] [facility] 2020-08-09 00:00:00 2020-08-09 00:00:00 Telephone [facility] 1.2.840.114 350.1.13.10 4.2.7.2.686 [id number] 225 [id number] [facility] 2020-08-09 00:00:00 2020-08-09 00:00:00 Telephone [facility] 1..114 350.1.13.10 4.2.7.2.686 [id number] 370 [id number] [facility] 2020-08-08 14:46:51 2020-08-08 16:51:17 Office Visit [facility] 1..114 350.1.13.10 4.2.7.2.686 [id number] 225 [id number] [facility] 2020-08-08 15:00:00 2020-08-08 15:00:00 Outpatient LIBERTY TOMLINSON [facility] [id number] [facility] 2020-07-03 00:00:00 2020-07-03 00:00:00 Orders Only Doctor Unassigned, Odem [facility] 1..114 350.1.13.10 4.2.7.2.686 [id number] [id number] [facility] 2020-06-17 13:35:31 2020-06-17 14:15:17 Office Visit Antonia Swain [facility] 1..114 350.1.13.10 4.2.7.2.686 [id number] [facility] 2020-06-17 13:40:00 2020-06-17 13:40:00 Outpatient ELINA FORMAN [facility] [id number] [facility] 2020-05-18 00:00:00 2020-05-18 00:00:00 Kassidy Morris [facility] 1.114 350.1.13.10 4.2.7.2.686 [id number] [facility] 2020-05-14 00:00:00 2020-05-14 00:00:00 Telephone Elina Rome [facility] 1..114 350.1.13.10 4.2.7.2.686 [id number] 225 [id number] [facility] 2020-05-06 00:00:00 2020-05-06 00:00:00 Telephone Elina Rome [facility] 1..114 350.1.13.10 4.2.7.2.686 [id number] 225 [id number] [facility] 2020-04-26 15:36:43 2020-04-26 15:56:43 Office Visit Kassidy Arenas [facility] 1..114 350.1.13.10 4.2.7.2.686 [id number] [facility] 2020-04-26 15:40:00 2020-04-26 15:40:00 Outpatient KASSIDY BOONE [facility] [id number] [facility] 2020-04-15 00:00:00 2020-04-15 00:00:00 [facility] 1.84.114 350.1.13.10 4.2.7.2.686 [id number] [facility] 2020-01-03 14:40:00 2020-01-03 14:40:00 Outpatient REJI EVANS [facility] [id number] [facility] 2019-10-27 00:00:00 2019-10-27 00:00:00 Telephone Aiden Cooney [facility] 1..114 350.1.13.10 4.2.7.2.686 [id number] [facility] 2019-10-18 23:49:28 2019-10-19 02:20:00 Emergency X SOSA ADAMES [facility] ERT [id number] [facility] 2019-10-18 23:49:28 2019-10-19 02:20:00 Emergency Sosa Adames [facility] 1.2.840.114 350.1.13.10 4.2.7.2.686 [id number] [id number] [facility] 2019-10-18 00:00:00 2019-10-18 00:00:00 Nurse Triage Sandra Henderson [facility] 1.2.840.114 350.1.13.10 4.2.7.2.686 [id number] [facility] 2019-10-09 00:00:00 2019-10-09 00:00:00 Telephone Aiden Cooney [facility] 1.2.840.114 350.1.13.10 4.2.7.2.686 [id number] 225 [id number] [facility] 2019-09-21 13:27:07 2019-09-21 17:09:32 Office Visit [place] [facility] 1.2.840.114 350.1.13.10 4.2.7.2.686 [id number] 225 [id number] [facility] 2019-09-21 13:40:00 2019-09-21 13:40:00 Outpatient R LIBERTY [facility] [facility] [id number] [facility] 2019-08-30 15:01:37 2019-08-30 15:11:37 Office Visit Antonia Pike [facility] 1.2.840.114 350.1.13.10 4.2.7.2.686 [id number] 225 [id number] [facility] 2019-08-22 15:33:37 2019-08-22 15:43:37 Office Visit Aiden Cooney [facility] 1.2.840.114 350.1.13.10 4.2.7.2.686 [id number] [facility] 2019-08-21 09:14:31 2019-08-21 10:35:00 Emergency Ashley Avendano [facility] 1.2.840.114 350.1.13.10 4.2.7.2.686 [id number] [id number] [facility] 2019-08-10 11:01:47 2019-08-10 11:21:47 Nurse Visit NurseOsvaldo Maria P Alvin [facility] 1.2.840.114 350.1.13.10 4.2.7.2.686 [id number] [facility] 2019-08-09 09:22:22 2019-08-09 12:41:52 Office Visit Antonia Pike [facility] 1.2.840.114 350.1.13.10 4.2.7.2.686 [id number] 225 [id number] [facility] 2019-08-09 00:00:00 2019-08-09 00:00:00 Orders Only Antonia Pike [facility] 1.2.840.114 350.1.13.10 4.2.7.2.686 [id number] [id number] [facility] 2019-07-28 00:00:00 2019-07-28 00:00:00 Orders Only Doctor Unassigned, Odem [facility] 1.2.840.114 350.1.13.10 4.2.7.2.686 [id number] [id number] [facility] 2019-03-30 12:55:51 2019-03-30 13:15:51 Office Visit Kassidy Arenas [facility] 1.2.840.114 350.1.13.10 4.2.7.2.686 [id number] [facility] 2019-03-29 00:00:00 2019-03-29 00:00:00 Telephone Elina Rome [facility] 1.2.840.114 350.1.13.10 4.2.7.2.686 [id number] 225 [id number] [facility] 2019-03-27 09:41:28 2019-03-27 09:51:28 Office Visit Aiden Cooney [facility] 1.2.840.114 350.1.13.10 4.2.7.2.686 [id number] [facility] 2019-03-22 15:41:22 2019-03-22 23:59:00 Hospital Encounter Aiden Cooney [facility] 1.2.840.114 350.1.13.10 4.2.7.2.686 [id number] [facility] 2019-03-21 15:31:39 2019-03-22 09:26:38 Office Visit Mike Heard Syed Kaleem Alvin [facility] 1.2.840.114 350.1.13.10 4.2.7.2.686 [id number] 225 [id number] [facility] 2019-03-08 09:03:07 2019-03-08 09:13:07 Office Visit Aiden Cooney [facility] 1.2.840.114 350.1.13.10 4.2.7.2.686 [id number] 225 [id number] [facility] 2019-03-03 10:38:58 2019-03-03 11:09:50 Office Visit Aiden Cooney [facility] 1.2.840.114 350.1.13.10 4.2.7.2.686 [id number] 225 [id number] [facility] 2019-02-10 15:44:39 2019-02-10 23:59:00 Hospital Encounter Sujata Carter [facility] 1.2.840.114 350.1.13.10 4.2.7.2.686 [id number] [facility] 2019-02-10 08:00:00 2019-02-10 15:43:00 Hospital Encounter Sujata Carter [facility] 1.2.840.114 350.1.13.10 4.2.7.2.686 [id number] [facility] Results Test Description Test Time Test Comments Results Result Co mments Source [facility] WITH [id number] 11:43:20* Test Item Value Reference Range Interpretation [...] 32.0 g/dL 31.6-35.1 RDW-SD (test code = 20636-4) 47.8 fL 39.0-49.9 RDW-CV (test code = 788-0) 14.8 % 12.0-15.5 PLT (test code = 777-3) 282 See_Comment [Automated messa ge] The system which generated this result transmitted reference range: 166 - 358 10*3/?L. The reference range was not used to interpret this result as normal/abnormal. MPV (test code = 91614-4) 10.6 fL 9.5-12.9 NRBC/100 WBC (test code = 5407081644) 0.0 See_Comment [Automated me ssage] The system which generated this result transmitted reference range: 0.0 - 10.0 /100 WBCs. The reference range was not used to interpret this result as normal/abnormal. NRBC x10^3 (test code = 6757175027) See_Comment [Automated messa ge] The system which generated this result transmitted reference range: 10*3/?L. The reference range was not used to interpret this result as normal/abnormal. GRAN MAT (NEUT) % (test code = 770-8) 51.7 % IMM GRAN % (test code = 5145020551) 0.20 % LYMPH % (test code = 736-9) 40.7 % MONO % (test code = 5905-5) 6.6 % EOS % (test code = 713-8) 0.4 % BASO % (test code = 706-2) 0.4 % GRAN MAT x10^3(ANC) (test code = 0044171835) 4.76 10*3/uL 1.88-7.09 IMM GRAN x10^3 (test code = 9935207324) 0.00-0.06 LYMPH x10^3 (test code = 731-0) 3.76 10*3/uL 1.32-3.29 H MONO x10^3 (test code = 742-7) 0.61 10*3/uL 0.33-0.92 EOS x10^3 (test code = 711-2) 0.04 10*3/uL 0.03-0.39 BASO x10^3 (test code = 704-7) 0.04 10*3/uL 0.01-0.07 Lab Interpretation (test code = 02503-8) Abnormal [facility] [id number] 15:31:00* Test Item Value Reference Range Interpretation Comme nts POCT PREG (test code = 1605) Negative On board controls acceptable with C Line (test code = 3574) Yes POCT PREG LOT # (test code = 3575) POCT PREG TEST DATE ( test code = 3576) [id number] 15:31:00* Test Item Value Reference Range Interpretation Comme nts POCT PREG (test code = 1605) Negative On board controls acceptable with C Line (test code = 3574) Yes POCT PREG LOT # (test code = 3575) POCT PREG TEST DATE ( test code = 3576) [facility] [id number] 11:21:25* Test Item Value Reference Range Interpretation Comme nts MAGNESIUM (test code = 3591048513) 2.2 mg/dL 1.7-2.4 Lab Interpretation (test cod e = 00776-9) Normal [facility] [id number] 11:21:25* Test Item Value Reference Range Interpretation Comme nts MAGNESIUM (test code = 8234835348) 2.2 mg/dL 1.7-2.4 Lab Interpretation (test cod e = 39487-8) Normal [facility] METABOLIC PANEL (NA, K, CL, CO2, GLUCOSE, BUN, CREATININE, CA)2023-05-02 11:21:05* Test Item Value Reference Range Interpretation Comme nts NA (test code = 3071567883) 138 mmol/L 135-145 K (test code = 7007321670) 3.8 mmol/L 3.5-5.0 CL (test code = 7198306124) 102 mmol/L 98-108 CO2 TOTAL (test code = 8960941183) 22 mmol/L 23-31 L AGAP (test code = 0553351370) 14 2-16 BUN (test code = 4566874958) 21 mg/dL 7-23 GLUCOSE (test code = 1583532399) 88 mg/dL 70-110 CREATININE (test code = 8652363545) 0.65 mg/dL 0.50-1.04 CALCIUM (test code = 8198986259) 9.3 mg/dL 8.6-10.6 eGFR (test code = 7562289083) 116.2 mL/min/1.73m2 RADHA (test code = RADHA) [...] imaging tests). Lab Interpretation (test code = 36583-5) [facility]normal [facility]40852[facility] (ALB,T.PRO,BILI T,BU/BC,ALT,AST,ALK PHOS)2023-05-02 11:21:05* Test Item Value Reference Range Interpretation Comme nts TOTAL BILI (test code = 1269640605) 0.3 mg/dL 0.1-1.1 BILI UNCON (test code = 6376956481) 0.2 mg/dL 0.1-1.1 BILI CONJ (test code = 0132704148) 0.0 mg/dL 0.0-0.3 T PROTEIN (test code = 6949063312) 7.6 g/dL 6.3-8.2 ALBUMIN (test code = 2699448654) 4.4 g/dL 3.5-5.0 ALK PHOS (test code = 5240499527) 72 U/L 34-122 ALTv (test code = 1742-6) 13 U/L 5-35 AST(SGOT) (test code = 3825224199) 17 U/L 13-40 Lab Interpretation (test cod e = 58835-4) Normal [facility] METABOLIC PANEL (NA, K, CL, CO2, GLUCOSE, BUN, CREATININE, CA)2023-05-02 11:21:05* Test Item Value Reference Range Interpretation Comme nts NA (test code = 7931390354) 138 mmol/L 135-145 K (test code = 2591188460) 3.8 mmol/L 3.5-5.0 CL (test code = 7468904028) 102 mmol/L 98-108 CO2 TOTAL (test code = 3486324535) 22 mmol/L 23-31 L AGAP (test code = 0830180678) 14 2-16 BUN (test code = 7737760047) 21 mg/dL 7-23 GLUCOSE (test code = 9726576906) 88 mg/dL 70-110 CREATININE (test code = 9996634345) 0.65 mg/dL 0.50-1.04 CALCIUM (test code = 6521516696) 9.3 mg/dL 8.6-10.6 eGFR (test code = 8110855455) 116.2 mL/min/1.73m2 RADHA (test code = RADHA) [...] imaging tests). Lab Interpretation (test code = 65150-9) Abnormal [facility] (61057) (ALB,T.PRO,BILI T,BU/BC,ALT,AST,ALK PHOS)2023-05-02 11:21:05* Test Item Value Reference Range Interpretation Comme nts TOTAL BILI (test code = 4881785897) 0.3 mg/dL 0.1-1.1 BILI UNCON (test code = 8192777946) 0.2 mg/dL 0.1-1.1 BILI CONJ (test code = 1455058723) 0.0 mg/dL 0.0-0.3 T PROTEIN (test code = 8450710826) 7.6 g/dL 6.3-8.2 ALBUMIN (test code = 4095827622) 4.4 g/dL 3.5-5.0 ALK PHOS (test code = 0880868533) 72 U/L 34-122 ALTv (test code = 1742-6) 13 U/L 5-35 AST(SGOT) (test code = 2825599056) 17 U/L 13-40 Lab Interpretation (test cod e = 49691-3) Normal [facility] with [id number] 10:46:23* Test Item Value Reference Range Interpretation Comme nts WBC (test code = 6690-2) 7.54 See_Comment [Automated [employer]] The system which generated this result transmitted reference range: 4.30 - 11.10 10*3/?L. The reference range was not used to interpret this result as normal/abnormal. RBC (test code = 789-8) 4.05 See_Comment [Automated [employer]] The system which generated this result transmitted [...] 32.3 g/dL 31.6-35.1 RDW-SD (test code = 64441-7) 46.6 fL 39.0-49.9 RDW-CV (test code = 788-0) 14.7 % 12.0-15.5 PLT (test code = 777-3) 283 See_Comment [Automated messa ge] The system which generated this result transmitted reference range: 166 - 358 10*3/?L. The reference range was not used to interpret this result as normal/abnormal. MPV (test code = 81807-5) 10.5 fL 9.5-12.9 NRBC/100 WBC (test code = 4120894236) 0.0 See_Comment [Automated [employer]] The system which generated this result transmitted reference range: 0.0 - 10.0 /100 WBCs. The reference range was not used to interpret this result as normal/abnormal. NRBC x10^3 (test code = 7417840791) See_Comment [Automated messa ge] The system which generated this result transmitted reference range: 10*3/?L. The reference range was not used to interpret this result as normal/abnormal. GRAN MAT (NEUT) % (test code = 770-8) 40.7 % IMM GRAN % (test code = 6426598170) 0.10 % LYMPH % (test code = 736-9) 48.4 % MONO % (test code = 5905-5) 8.8 % EOS % (test code = 713-8) 1.3 % BASO % (test code = 706-2) 0.7 % GRAN MAT x10^3(ANC) (test code = 9547799130) 3.07 10*3/uL 1.88-7.09 IMM GRAN x10^3 (test code = 1917429535) 0.00-0.06 LYMPH x10^3 (test code = 731-0) 3.65 10*3/uL 1.32-3.29 H MONO x10^3 (test code = 742-7) 0.66 10*3/uL 0.33-0.92 EOS x10^3 (test code = 711-2) 0.10 10*3/uL 0.03-0.39 BASO x10^3 (test code = 704-7) 0.05 10*3/uL 0.01-0.07 Lab Interpretation (test code = 41261-1) Abnormal [facility] with Qqdhtlqgjfuy9392-90-46 10:46:23* Test Item Value Reference Range Interpretation [...] 32.3 g/dL 31.6-35.1 RDW-SD (test code = 47013-9) 46.6 fL 39.0-49.9 RDW-CV (test code = 788-0) 14.7 % 12.0-15.5 PLT (test code = 777-3) 283 See_Comment [Automated messa ge] The system which generated this result transmitted reference range: 166 - 358 10*3/?L. The reference range was not used to interpret this result as normal/abnormal. MPV (test code = 84683-9) 10.5 fL 9.5-12.9 NRBC/100 WBC (test code = 7987163146) 0.0 See_Comment [Automated me ssage] The system which generated this result transmitted reference range: 0.0 - 10.0 /100 WBCs. The reference range was not used to interpret this result as normal/abnormal. NRBC x10^3 (test code = 5962722026) See_Comment [Automated messa ge] The system which generated this result transmitted reference range: 10*3/?L. The reference range was not used to interpret this result as normal/abnormal. GRAN MAT (NEUT) % (test code = 770-8) 40.7 % IMM GRAN % (test code = 0686752301) 0.10 % LYMPH % (test code = 736-9) 48.4 % MONO % (test code = 5905-5) 8.8 % EOS % (test code = 713-8) 1.3 % BASO % (test code = 706-2) 0.7 % GRAN MAT x10^3(ANC) (test code = 5716600107) 3.07 10*3/uL 1.88-7.09 IMM GRAN x10^3 (test code = 8656079401) 0.00-0.06 LYMPH x10^3 (test code = 731-0) 3.65 10*3/uL 1.32-3.29 H MONO x10^3 (test code = 742-7) 0.66 10*3/uL 0.33-0.92 EOS x10^3 (test code = 711-2) 0.10 10*3/uL 0.03-0.39 BASO x10^3 (test code = 704-7) 0.05 10*3/uL 0.01-0.07 Lab Interpretation (test code = 36854-7) [facility]08[facility]* Test Item Value Reference Range Interpretation Comme nts SURGICAL (test code = SR) R UN DATE: 11/03/22 [place] - LAB PAGE 1 RUN TIME: 1409 Specimen Inquiry RUN USER: INTERFACE P ATIENT: LUIS EDMONDS LOC: [place] U #: [id number] AGE/SX: 21/F ROOM: [facility] RE10/30/22REG DR: Luis Burciaga MD : 02 BED: 1 DIS: 11/02/22 STATUS: DIS IN TLOC: SPEC #: [id number] RECD: 11/02/22 STATUS: GLENN REGreta #: [id number] SLOAN: 10/31/22- SUBM DR: Luis Burciaga MD ENTERED: 11/02/22 SP TYPE: SURGICAL OTHR DR: ORDERED: 44622, ANATOMIC SPEC PROCEDURES: 00498 (11/02/22) TISSUES: A. PLACENTA, THIRD TRIMESTER (28 + WEEKS) CLINICAL HISTORY SAME, DELIVERED FINAL DIAGNOSIS Placenta: Third trimester placenta with acute chorionitis, deciduitis; 713 g (expected rfvs680 g); trivascular umbilical cord without significant inflammation.. [...] weighs 713 g. Technical component performed at [facility],[address] [place] [address], [place] [address] Unless gross only, the diagnosis is based [...] SIGNATURE ON FILE Maria Eugenia Emmanuelserg 11/03/22 1408 END OF REPORT CBC W/AUTO [id number] 07:54:00* Test Item Value Reference Range Interpretation [...] c ode = MDIFF) NO RAPID PLASMA [id number] 11:50:00* Test Item Value Reference Range Interpretation Comme nts RAPID PLASMA REAGIN (test co de = RPR) NONREACTIVE NONREACTIVE AG HEPATITIS B [id number] 11:50:00* Test Item Value Reference Range Interpretation Comme nts AG HEPATITIS B SURFACE (test code = HBSAG) NON REACTIVE INDEX NonReactive AB HIV 1 11:50:00* Test Item Value Reference Range Interpretation Comme nts AB HIV 1 2 (test code = ONS13SY) Nonreactive Nonreactive CBC W/AUTO [id number] 19:59:00* Test Item Value Reference Range Interpretation [...] c ode = MDIFF) NO AMNISURE (ROM) [id number] 18:12:00* Test Item Value Reference Range Interpretation Comme nts AMNISURE (ROM) TEST (test co de = AMNI) POSITIVE NEGATIVE A AMNISURE (ROM) [id number] 21:41:00* Test Item Value Reference Range Interpretation Comme nts AMNISURE (ROM) TEST (test co de = AMNI) NEGATIVE NEGATIVE [id number] 20:11:00* Test Item Value Reference Range Interpretation Comme nts FIBRONECTIN (test code = FFN) POSITIVE NEGATIVE A UA RFLX MICR CULT IF [id number] 20:11:00* Test Item Value Reference Range Interpretation [...] PainSpecimen Description: CLEAN CATCHDRUGS OF ABUSE SCREEN [id number] 20:10:00* Test Item Value Reference Range Interpretation [...] be used for non-medical purposes. - BIOPHYS [id number] 00:00:00 [facility] : 2000 Sex: F Name: BI EDMONDS [facility] [place] : 2000 Age/S: 21 / F [address] [place] [address] Unit #: [id number] Loc: [facility]ER [address] Phys: Zoila Gomez DO Acct: [id number] Dis Date: Status: REG ER PHONE #: [phone] Exam Date: 09/26/20222004 FAX #: [phone] Reason: decreased FM EXAMS: CPT CODE: [id number] US BIOPHYS PROF [id number] PROCEDURE INFORMATION: Exam: US Biophysical Profile Without Non-Stress Test Exam date and time: 09/26/2022 7:49 PM Age: 21 years old Clinical indication: Pain indication: Abdominal pain; ; Additional info: Decreased fm TECHNIQUE: Imaging protocol: US biophysical profile without non-stress testing. COMPARISON: US FET BIO PH MT W/O NST 09/07/2022 11:03 PM A limited [...] PAGE 1 Signed Report- US PREG AFTER [id number] 00:00:00 [facility] 2000 Sex: F Name: BI EDMONDS [facility] : 2000 Age/S: 21 / F [address] [place] [address] Unit #: [id number] Loc: [place] [address] Phys: Zoila Gomez DO Acct: [id number] Dis Date: Status: REG ER PHONE #: [phone] Exam Date: 09/26/20222004 FAX #: [phone] Reason: PTL EXAMS: CPT CODE: [id number] US PREG AFTER TRI [id number] PROCEDURE INFORMATION: Exam: US After First Trimester,Transabdominal Exam date and time: 09/26/2022 7:49 PM Age: 21 years old Clinical indication: complicated by abdominal or pelvic pain; Periumbilical; Third trimester (=28 weeks 0 days); Gestational age or lmp: 32w; ; Additional info: Ptl TECHNIQUE: Imaging protocol: Real-time transab dominal obstetrical ultrasound of the maternal pelvis and a second or third trimester with image documentation. COMPARISON: US LTD 09/13/2022 8:38 AM FINDINGS: EGA by LMP: 32 weeks1 day EGA by current US: 31 weeks 3 days DANY by LMP: 11/20/2022 DANY by ultrasound: 11/25/2022. Gestation: Jauregui Presentation: Cephalic heart rate: 148 bpm Amniotic fluid index: 11.39 cm; largest pocket measures 4.37 cm. Placenta: Anterior, grade 2. No evidence of placenta previa. Cervicallength: cm S/D ratio: 2.8 measurements: BPD: 8.23 cm, 33 weeks 1 day HC: 28.33 cm, 31 weeks 1day AC: 25.23 cm, 29 weeks 3 days FL: 6.19 cm, . Thirty-one weeks 1 day Ratios: FL/BPD: 75.22 (71.0--87.0) FL/AC: 24.53 (20.00-24.00). HC/AC: 1.12. (0.96--1.16) FL/HC: 21.85 (19.21-21.30) Estimated weight: 1628 g +/-244.15 g (3 lb 9 oz +/-9 oz) anatomy: Unremarkable as visualized. biophysical profile: tone: 2 PAGE 1 Signed Report (CONTINUED) Name: BI EDMONDS [facility] : 2000 Age/S: 21 / F [address] [place] [address] Unit #: [id number] Loc: [place] [address] Phys: Zoila Gomez DO Acct: [id number] Dis Date: Status: REG ER PHONE #: [phone] Exam Date: 09/26/20222004 FAX #: [phone] Reason: PTL EXAMS: CPT CODE: [id number] US PREG AFTER [id number] (Continued) movement: 2. breathin Amniotic fluid: 2 Total score 8/8 IMPRESSION: 1. Single viable intrauterine gestation in cephalic presentation. 2. Normal growth concordant with dates. 3. Normal biophysical profile. at 2117 Reported and signed by: Jeromy Wolfe M.D. CC: Zoila Gomez DO Technologist: Saturnino Fitch Trnscb Date/Time: 09/26/2022 (2116) [email or web address] Orig Print D/T: S: 09/26/2022 (2116) Probe: PAGE 2 Signed ReportAMNISURE (ROM) [id number] 14:39:00* Test Item Value Reference Range Interpretation Comme nts AMNISURE (ROM) TEST (test co de = AMNI) NEGATIVE NEGATIVE CHLAMYDIA GC DNA BY [id number] 13:07:00* Test Item Value Reference Range Interpretation Comme nts C. TRACHOMATIS DNA BY PCR (test code = CHLAMTDNA) Negative Negative N. GONORRHOEAE DNA BY PCR (test code = NGONORDNA) Negative Negative Performed At: [facility] [address] [id number] Marc Rosales MD Ph:[phone] UA RFLX MICR CULT IF [id number] 21:16:00* Test Item Value Reference Range Interpretation [...] culture: Suprapubic PainSpecimen Description: CLEAN CATCHRAPID PLASMA [id number] 11:04:00* Test Item Value Reference Range Interpretation Comme nts RAPID PLASMA REAGIN (test co de = RPR) NONREACTIVE NONREACTIVE AG HEPATITIS B [id number] 11:04:00* Test Item Value Reference Range Interpretation Comme nts AG HEPATITIS B SURFACE (test code = HBSAG) NON REACTIVE INDEX NonReactive AB HIV 1 11:04:00* Test Item Value Reference Range Interpretation Comme nts AB HIV 1 2 (test code = PQB99TE) Nonreactive Nonreactive [id number] 08:05:00* Test Item Value Reference Range Interpretation Comme nts MAGNESIUM (test code = MAG) 4.22 mg/dL 1.80-2.40 HH CBC W/AUTO [id number] 00:08:00* Test Item Value Reference Range Interpretation [...] MDIFF) NO - US FET BIO PH MT W/O [id number] 00:00:00 [facility] : 2000 Sex: F Name: LUIS EDMONDS [facility] : 2000 Age/S: 21 / F [address] [place] [address] Unit #:[id number] Loc: [place] [address] Phys: Juany Carrillo MD Acct: [id number] Dis Date: Status: ADMIN PHONE #: [phone] Exam Date: 09/07/20222315 FAX #: [phone] Reason: IUP@29 wks; Leakingfluid; ROM plus positive EXAMS: CPT CODE: [id number] US FET BIO PH MT W/O NST 09535 PROCEDURE INFORMATION: Exam: US , Limited Exam date and time: 09/07/2022 11:03 PM Age: 21 years old Clinicalindication: Other: Rom; Lmp or gestational age (in [...] 1 Signed Report (CONTINUED) Name: LUIS EDMONDS [facility] : 2000 Age/S: 21 / F [address] [place] [address] Unit #: [id number] Loc: [place] [address] Phys: Juany Carrillo MD Acct: [id number] Dis Date: Status: ADM IN PHONE #: [phone] Exam Date: 09/07/20222315 FAX #: [phone] Reason: IUP@29 wks; Leaking fluid; ROM plus positive EXAMS: CPT CODE: [id number] US FET BIO PH MT W/O NST 63612 (Continued) A limited transabdominal obstetrical ultrasound was [...] (0002) Probe: PAGE 2 Signed Report- US [id number] 00:00[facility]00 [facility] 2000 Sex: F Name: LUIS EDMONDS [facility] [place] : 2000 Age/S: 21 / F [address] [place] [address] Blvd Unit #: [id number] Loc: [place] [address] Phys: Juany Carrillo MD Acct: [id number] Dis Date: Status: ADMIN PHONE #: [phone] Exam Date: 09/07/20225 FAX #: [phone] Reason: see US FET BIO PH MT W/O NST EXAMS: CPT CODE: [id number] US LTD 18365 PROCEDURE INFORMATION: Exam: US , Limited Exam date and time: 09/07/2022 11:03 PM Age: 21 years old Clinical indication: Other: Rom; Lmp or gestational age (in weeks): 29; Antepartum complications; Premature rupture of membranes;; Additional info: Iup@29 wks; Leaking fluid; Rom plus positive TECHNIQUE: Imaging protocol: Real-time ultrasound of the maternal uterus with image documentation. Exam focused on theclinical indication. COMPARISON: US BIOPHYS PROF 03/12/2021 11:26 PM A limited transabdominal obstetrical ultrasound was performed for biophysical profile determination. The ultrasound reveals the presence of a single intrauterine in cephalic position. cardiac activity isdetected with a heart rate of 152 bpm. [...] 1 Signed Report (CONTINUED) Name: LUIS EDMONDS [facility] : 2000 Age/S: 21 / F [address] [place] [address] Unit #: [id number]: [place] [address] Phys: Juany Carrillo MD Acct: [id number] Dis Date: Status: ADM IN PHONE #: [phone] Exam Date: 09/07/2022 2315 FAX #: [phone] Reason: see US FET BIO PH MT W/O NST EXAMS: CPT CODE: [id number] US LTD 08655 (Continued) A limited transabdominal obstetrical ultrasound was performed for biophysical profile determination. The ultrasound reveals the presence of a single intrauterine in cephalic position. cardiac activity is detected witha heart rate of 152 bpm. The placenta is anteriorly positioned and demonstrates grade 1 echotexture. There is no evidence of placenta previa or retroplacental hemorrhage. Amniotic fluid volume appears within normal limits with a measured ISMA of 11 cm. The cervix was not well visualized. The fetus me ets the biophysical profile criteria for breathing movement, gross body movement, tone and amniotic fluid volume giving a biophysical profile score of 8/8. The average umbilical artery S/D ratio was 3.4. IMPRESSION: 1. Single living intrauterine in cephalic position. 2. Fetalbiophysical profile score of 8/8. SL: 131. at 0002 Reported and signed by: Malcolm Wilson M.D. CC: Juany Carrillo MD Technologist: Victoria Tripathi RDMS(AB)(OB) Trnscb Date/Time: 09/08/2022 (1) [email or web address] Orig Print D/T: S: 09/08/2022 (1) Probe: PAGE 2 Signed ReportAMNISURE (ROM) [id number] 22:26:00* Test Item Value Reference Range Interpretation Comme nts AMNISURE (ROM) TEST (test co de = AMNI) POSITIVE NEGATIVE A UA RFLX MICR CULT IF [id number] 22:12:00* Test Item Value Reference Range Interpretation [...] for culture: Suprapubic PainSpecimen Description: CLEAN CATCHFETAL [id number] 16:47:00* Test Item Value Reference Range Interpretation Comme nts FIBRONECTIN (test code = FFN) NEGATIVE NEGATIVE URINALYSIS [id number] 16:34:00* Test Item Value Reference Range Interpretation [...] SEEN - XR ANKLE 3 + V [id number] 00:00:00 [facility] : 2000 Sex: F FAX: Emily Mckoy MD [phone] [place]: [place] St: PRE FAX: Romeo Chavez Name: CATRACHO EDMONDSABELLE Marisol FSED : 2000 Age/S: 21/F [address] [facility] Unit #: [id number] Loc: [place] [address] Phys: Ghanshyam Chavez MD Acct: [id number] Dis Date: Status: PRE ER PHONE #: Exam Date: 03/06/2022 1600 FAX #: Reason: R ANKLE PAIN AFTER FALL EXAMS: CPT CODE: [id number] XR ANKLE 3 + V RT 02384 PROCEDURE INFORMATION: Exam: XR Right Ankle Exam date and time: 03/06/2022 3:54 PM Age: 21 years old Clinical indication: Pain; Ankle; Right; Additional info: R ankle pain after fall TECHNIQUE: Imagingprotocol: Radiologic exam of the Right ankle. Views: 3 or more views. AP Oblique Lateral COMPARISON: CR XR ANKLE 3 + V RT 06/01/2015 10:32 PM FINDINGS: Bones/joints: There is normal alignment withoutfractures or dislocations. The tibiotalar joint and talar dome are unremarkable. The subtalar jointis unremarkable. The mortise is normal. The distal [...] Emeka Pickering M.D. CC: Emily Artis MD; Romeo Chavez MD Technologist: Katerina Rosas RT(R)(CT) Trnnyrd Date/Time/By: 03/06/2022 (8048) : By: KaneSBL Orig Print D/T: S: 03/06/2022 (3271) PAGE 1 Signed Report- XR FOOT 3 + V [id number] 00:00:00 [facility] : 2000 Sex: F FAX: Emily Mckoy MD [phone] [place]: [place] St: PRE FAX: Romeo Chavez Name: LUIS EDMONDS [facility] : 2000 Age/S: 21/F [address] [facility] Unit #: [id number] Loc: [place] [address] Phys: Ghanshyam Chavez MD Acct: [id number] Dis Date: Status: PRE ER PHONE #: Exam Date: 03/06/2022 3052 FAX #: Reason: r foot injury EXAMS: CPT CODE: [id number] XR FOOT 3 + V RT 98708 PROCEDUREINFORMATION: Exam: XR Right Foot Exam date and time: 03/06/2022 3:35 PM Age: 21 years old Clinical indication: Pain; Foot; Right; Additional info: R foot injury TECHNIQUE: Imaging protocol: Radiologicexam of the Right foot. Views: 3 or more views. AP Oblique Lateral COMPARISON: CR XR TIBIA/FIBULA 2V RT 06/01/2015 10:54 PM FINDINGS: Bones/joints: There is normal alignment without fractures or dislocations. The joints appear unremarkable. Soft tissues: There are no radiopaque foreign bodies. There is no soft tissue gas or osseous erosive changes noted. Notes: If there is further concern, recommend follow-up radiographs or MRI for complete assessment. IMPRESSION: No fractures or dislocation at 7602 Reported and signed by: Valeria Costello CC: Emily Artis MD; Ghanshyam Chavez MD Technologist: RT Valerie(R)(CT)Trnscrd Date/Time/By: 03/06/2022 (8148) : By: Kristian Orig Print D/T: S: 03/06/2022 (3638) PAGE 1 Signed ReportURINE HCG TRIAGE (ER ONLY)2021-11-11 08:40:00* Test Item Value Reference Range Interpretation Comme nts URINE HCG TRIAGE (ER ONLY) ( test code = HCGTRIAGE) NEGATIVE Negative Urine Test Result: NEGATIVEAre internal controls (presence of a control line & clear background) OK? YLot # of HCG Test Kit: [id number] Date of Kit: 02/15/23Test Performed by:Carlo Tinoco on: 11/11/21COMMENTS: NEGATIVEUA DIPSTICK [id number] 00:46:00* Test Item Value Reference Range Interpretation Comme nts UA GLUCOSE DIPSTIC POC (test code = GLUUP) NEGATIVE NEGATIVE UA BILIRUBIN DIPSTICK (test code = BILU) NEGATIVE NEGATIVE UA KETONE DIPSTICK POC (test code = KETUP) NEGATIVE NEGATIVE UA SPECIFIC GRAVITY (test code = SGU) 1.010 1.005-1.030 N UA BLOOD DIPSTIC POC (test code = BLUP) NEGATIVE NEGATIVE Performed by certified rotary bar operator at [facility] UA PH DIPSTIC POC (test code = PHUP) 7 5.0-7.0 N UA PROTEIN DIPSTICK POC (test code = DPROUP) NEGATIVE NEGATIVE UA UROBILINIOGEN QUAL (test code = UROQL) NORMAL 0.2-1.0 UA NITRITE DIPSTICK POC (test code = NITUP) NEGATIVE Negative UA LEUKOCYTE ESTERASE W REFLEX (test code = LEUUR) Negative NEGATIVE SURGICAL PATH [id number] 13:13:00* Test Item Value Reference Range Interpretation Comme nts SURGICAL PATH SPECIMENS (test code = S) RUN DATE: 03/28/21 [place] - LAB PAGE 1 RUN TIME: 1313 Specimen Inquiry RUN USER: INTERFACE ARTEMIO ENT: LUIS EDMONDS LOC: [place] U #: [id number] AGE/SX: 20/F ROOM: [facility] RE03/25/21REG DR: Luis Burciaga MD : [birth year] BED: 1 DIS: STATUS: ADM IN TLOC: SPEC #: [id number] RECD: 03/27/21 STATUS: GLENN EVERETT #: [id number] SLOAN: 03/26/21- SUBM DR: Luis Burciaga MD ENTERED: 03/27/21 SP TYPE: SURG SPEC OTHR DR: ORDERED: GM LEVEL 5 CODES: [id number] - PLACENTA, NOS PROCEDURES: GM LEVEL 5 [...] 03/28/21 1313 END OF REPORT CBC W/AUTO [id number] 07:03:00* Test Item Value Reference Range Interpretation [...] ode = MDIFF) NO CORD VENOUS BLOOD [id number] 18:41:00* Test Item Value Reference Range Interpretation Comme [facility] CORD VENOUS PH (test code = [...] = O2SCV) 17 % CORD ARTERIAL BLOOD [id number] 18:40:00* Test Item Value Reference Range Interpretation Comme [facility] CORD BLOOD PH (test code = [...] O2S/C) 25 % 72-77 L RAPID PLASMA [id number] 10:40:00* Test Item Value Reference Range Interpretation Comme nts RAPID PLASMA REAGIN (test co de = RPR) NONREACTIVE NONREACTIVE AG HEPATITIS B [id number] 10:40:00* Test Item Value Reference Range Interpretation Comme nts AG HEPATITIS B SURFACE (test code = HBSAG) NON REACTIVE INDEX NonReactive AB HIV 1 10:40:00* Test Item Value Reference Range Interpretation Comme nts AB HIV 1 2 (test code = CGV45WK) Nonreactive Nonreactive COVID 19 Asymptomatic IH [id number] 20:20:00* Test Item Value Reference Range Interpretation [...] perform moderate, high or waivedcomplexity tests. URINALYSIS [id number] 18:48:00* Test Item Value Reference Range Interpretation [...] MUCU) TRACE /LPF NONE SEEN RAPID PLASMA [id number] 18:11:00* Test Item Value Reference Range Interpretation Comme nts RAPID PLASMA REAGIN (test code = RPR) NONREACTI VE AG HEPATITIS B [id number] 18:11:00* Test Item Value Reference Range Interpretation Comme nts AG HEPATITIS B SURFACE (test code = HBSAG) NON REACTIVE INDEX NonReactive AB HIV 1 18:11:00* Test Item Value Reference Range Interpretation Comme nts AB HIV 1 2 (test code = CKS69DE) Nonreactive Nonreactive COMPREHENSIVE METABOLIC [id number] 17:45:00* Test Item Value Reference Range Interpretation [...] = ALKP) 153 IUnit/L 60-350 N URIC [id number] 17:45:00* Test Item Value Reference Range Interpretation Comme nts URIC ACID (test code = URIC) 4.0 mg/dL 2.6-7.2 N LACTIC DEHYDROGENASE(LDH)2021-03-25 17:45:00* Test Item Value Reference Range Interpretation Comme nts LACTIC DEHYDROGENASE(LDH) (t est code = LDH) 225 IUnits/L 84-246 N CBC W/AUTO [id number] 17:24:00* Test Item Value Reference Range Interpretation [...] (test c ode = MDIFF) CBC W/AUTO [id number] 17:24:00* Test Item Value Reference Range Interpretation [...] c ode = IFF) NO - US BIOPHYS [id number] 00:00:00 [facility] 2000 Sex: F Name: LUIS EDMONDS [facility] : 2000 Age/S: 20 / F [address] [place] [address] Unit #: [id number] Loc: [place] [address] Phys: Effie Solitario MD Acct: [id number] Dis Date: Status: REG ER PHONE #: [phone] Exam Date: 03/12/202141 FAX #: [phone] Reason: Possible SROM, please evaluate ISMA EXAMS: CPT CODE: [id number] US BIOPHYS PROF 28061 PROCEDURE INFORMATION: Exam: US Biophysical Profile With Non-Stress Test Exam date and time: 03/12/2021 11:26 PM Age: 20 years old Clinical indication: Other: Srom; ; Additional info: Possible srom, please evaluate isma TECHNIQUE: Imaging protocol: biophysical profile with non-stress test. COMPARISON:US BIOPHYS PROF 03/01/2021 7:32 AM FINDINGS: EGA: [...] co de = AMNI) NEGATIVE NEGATIVE URINALYSIS [id number] 21:48:00* Test Item Value Reference Range Interpretation [...] = MUCU) TRACE /LPF NONE SEEN URINALYSIS [id number] 07:00:00* Test Item Value Reference Range Interpretation [...] TRACE /LPF NONE SEEN - US BIOPHYS [id number] 00:00:00 [facility] 2000 Sex: F Name: LUIS EDMONDS [facility] : 2000 Age/S: 20 / F [address] [place] [address] Unit #: [id number] Loc: [place] [address] Phys: Effie Solitario MD Acct: [id number] Dis Date: Status: REG ER PHONE #: [phone] Exam Date: 03/01/2021757 FAX #: [phone] Reason: decreased movements EXAMS: CPT CODE: [id number] US BIOPHYS PROF 03770 PROCEDURE INFORMATION: Exam: US F etal Biophysical [...] Vilma Robles RDMS() Trnscb Date/Time: 03/01/2021 (809) [email or web address] Orig Print D/T: S: 03/01/2021 (0811) Probe: PAGE 1 Signed Report AMNISURE (ROM) [id number] 16:16:00* Test Item Value Reference Range Interpretation Comme nts AMNISURE (ROM) TEST (test co de = AMNI) NEGATIVE NEGATIVE [id number] 16:16:00* Test Item Value Reference Range Interpretation Comme nts FIBRONECTIN (test code = FFN) NEGATIVE NEGATIVE [id number] 20:50:00* Test Item Value Reference Range Interpretation Comme nts FIBRONECTIN (test code = FFN) NEGATIVE NEGATIVE URINALYSIS [id number] 20:32:00* Test Item Value Reference Range Interpretation [...] TRACE /LPF NONE SEEN - US BIOPHYS [id number] 00:00:00 [facility] 2000 Sex: FName: LUIS EDMONDS [facility] : 2000 Age/S: 20 / F [address] [place] [address] Unit #:[id number] Loc: [place] [address] Phys: Effie Solitario MD Acct: [id number] Dis Date: Status: REG ER PHONE #: [phone] Exam Date: 02/12/20212122 FAX #: [phone] Reason: Decreased movements EXAMS: CPT CODE: [id number] US BIOPHYS PROF 14484 PROCEDURE INFORMATION: Exam: US F etal Biophysical [...] pocket is 0.5 cm. This is within normallimits. 4. The uterine cervix is closed and the cervical length is 3.5 cm. PAGE 1 Signed Report (CONTINUED) Name: LUIS EDMONDS [facility] [place] : 2000 Age/S: 20 / F [address] [place] [address] BlvdUnit #: [id number] Loc: [place] [address] Phys: Effie Solitario MD Acct: [id number] Dis Date: Status: REG ER PHONE #: [phone] Exam Date: 02/12/20212122 FAX #: [phone] Reason: Decreased movements EXAMS: CPT CODE: [id number] US BIOPHYS PROF 14956 <Continued> at 2121 Reported and signed by: Geovanny Hughes D.O. CC: Technologist: Yuki Ray RDMS(AB)(OB) Trnscb Date/Time: 02/12/2021 (2121) [email or web address] Orig Print D/T: S: 02/12/2021 (2148) Probe: PAGE 2 Signed Report URINALYSIS [id number] 03:25:00* Test Item Value Reference Range Interpretation [...] MUCU) TRACE /LPF NONE SEEN - US [id number] 17:34:00 [facility] : 2000 Sex: F Name: LUIS EDMONDS [facility] [place] : 2000 Age/S: 20 / F [address] [place] [address] Unit #: [id number] Loc: [place] [address] Phys: Pearl Chavez Acct: [id number] Dis Date: Status: REGER PHONE #: [phone] Exam Date: 12/25/2020 172 FAX #: [phone] Reason: h/o low ISMA, unsureif PROM, translabial cervic EXAMS: CPT CODE: [id number] LTD 24940 LIMITED ULTRASOUND INDICATION: with history of low amniotic fluid index. Unsure premature rupture ofmembranes. Translabial cervical length. Lower abdominal pain. Back [...] wks 6 days 22.8 cm FL/AC: 22.42 (20%- 24%) AC: 24 wks 5 days 20 [...] 1 Signed Report (CONTINUED) Name: LUIS EDMONDS [facility] Chandra : 2000 Age/S: 20 / F [address] [place] [address] Unit #: [id number] Loc: [place] [address] Phys: Pearl Chavez DO Acct: [id number] Dis Date: Status: REG ER PHONE #: [phone] ExamDate: 12/25/2020 172 FAX #: [phone] Reason: h/o low ISMA, unsure if PROM, translabial cervic EXAMS: CPT CODE: [id number] LTD 89270 <Continued> at 1734 Reported and signed by: Judah Izquierdo M.D. CC: Pearl Chavez DO Technologist: Merna Figueroa RDMS() Trnscb Date/Time: 12/25/2020 (173) [email or web address] Print D/T: S: 12/25/2020 (173) Probe: PAGE 2 Signed ReportAMNISURE (ROM) [id number] 17:14:00* Test Item Value Reference Range Interpretation Comme nts AMNISURE (ROM) TEST (test co de = AMNI) NEGATIVE NEGATIVE URINALYSIS [id number] 17:10:00* Test Item Value Reference Range Interpretation [...] /HPF NONE A DRUGS OF ABUSE SCREEN [id number] 17:07:00* Test Item Value Reference Range Interpretation [...] for non-medical purposes. - US PREG AFTER [id number] 02:47:00 [facility] LUIS EDMONDS : 2000 Sex: F Name: LUIS EDMONDS [facility] Madeline Coffman : 2000 Age/S: 19 / F [address] [place] [address] Blvd Unit #: [id number] Loc: [place] [address] Phys: Brittnee Ramierz MD Acct: [id number] Dis Date: Status: REGER PHONE #: [phone] Exam Date: 11/23/2020 014 FAX #: [phone] Reason: No PNC, bleeding, approximately 20 weeks EXAMS: CPT CODE: [id number] US PREG AFTER 1ST TRI 07273 EXAM: US, US PREG AFTER 1SR TRI: [...] 1 Signed Report (CONTINUED) Name: LUIS EDMONDS [facility] : 2000 Age/S: 19 / F [address] [place] [address] Unit #: [id number] Loc: [place] [address] Phys: Brittnee Ramirez MD Acct: [id number] Dis Date: Status: REG ER PHONE #: [phone] Exam Date: 11/23/2020143 FAX #: [phone] Reason: No PNC, bleeding, approximately 20 weeks EXAMS: CPT CODE: [id number] US PREG AFTER TRI 91097 <Continued> seen. Cervical length is not visualized. IMPRESSION: Single live fetus in variable presentation. heart rate is 140 bpm. 2. Sonographic EGA of 19 weeks 6 days and an sonographic DANY of 04/13/2021 +/- one standard deviation. SL:[JSYED-H] at 0247 Reported and signed by: Jeromy Wolfe M.D. CC: Brittnee Ramirez MD Technologist: Maryam Anderson RDMS(BR)(AB) TrnscbDate/Time: 11/23/2020 (246) [email or web address] Orig Print D/T: S: 11/23/2020 (249) Probe: PAGE 2 Signed Report- US PREG AFTER [id number] 02:47:00[facility] LUIS ED[facility] : 2000 Sex: F Name: LUIS EDMONDS [facility] Madeline Coffman : 2000 Age/S: 19 / F [address] [place] [address] Blvd Unit #: [id number] Loc: [place] [address] Phys: Brittnee Ramirez MD Acct: [id number] Dis Date: Status: DEPER PHONE #: [phone] Exam Date: 11/23/2020 014 FAX #: [phone] Reason: No PNC, bleeding, approximately 20 weeks EXAMS: CPT CODE: [id number] US PREG AFTER 1ST TRI 97883 EXAM: US, US PREG AFTER 1SR TRI: [...] 1 Signed Report (CONTINUED) Name: LUIS EDMONDS [facility] [place] : 2000 Age/S: 19 / F [address] [place] [address] Unit #: [id number] Loc:[place] [address] Phys: Brittnee Ramirez MD Acct: [id number] Dis Date: Status: DEP ER PHONE #: [phone] Exam Date: 11/23/2020 014 FAX #: [phone] Reason: No PNC, bleeding, approximately 20 weeks EXAMS: CPT CODE: [id number] US PREG AFTER 1ST TRI 39538 <Continued> seen. Cervical length is not visualized. [...] 11/23/2020 (249) Probe: PAGE 2 Signed ReportURINALYSIS COMPLETE 2020-11-23 01:40:00* Test Item Value Reference Range Interpretation [...] /HPF NONE A DRUGS OF ABUSE SCREEN [id number] 01:40:00* Test Item Value Reference Range Interpretation [...] be used for non-medical purposes. CBC W/AUTO [id number] 01:27:00* Test Item Value Reference Range Interpretation [...] c ode = MDIFF) NO BASIC METABOLIC [id number] 02:51:00* Test Item Value Reference Range Interpretation [...] = CA) 9.5 mg/dL 8.0-10.5 N HCG [id number] 02:51:00* Test Item Value Reference Range Interpretation Comme nts HCG SERUM (test code = HCG) 18167.3 0 - 6 NOT PREGNA NT > 6 SUGGESTIVE OF EARLY RISES TWO FOLD EVERY 2 DAYS; SUGGEST RECONFIRMING AFTER 2 DAYS. 150,000-200,[address] TRIMESTER 10,000 - 50,000 2ND & 3RD TRIMESTERResults in emanuel-International Units/mL URINALYSIS [id number] 02:39:00* Test Item Value Reference Range Interpretation [...] MUCU) TRACE /LPF NONE SEEN CBC W/AUTO [id number] 02:21:00* Test Item Value Reference Range Interpretation [...] = MDIFF) NO - US PREG 1ST [id number] 02:19:00 [facility] 2000 Sex: F Name: LUIS EDMONDS [facility] : 2000 Age/S: 19 / F [address] [place] [address] Unit #:[id number] Loc: [place] [address] Phys: Nirav Nolan MD Acct: [id number] Dis Date: Status: REG ER PHONE #: [phone] Exam Date: 10/05/2020209 FAX #: [phone] Reason: VB EXAMS: CPT CODE: [id number] US PREG 1ST TRIMTR 27949 STUDY: - DUP AB/PEL/SC/LTD, - US PREG 1ST TRIMTR 10/05/2020 1:17AM Ordering Physician: Nirav Nolan MD Patient Name: LUIS EDMONDS MR: [id number] : 2000; Age: 19 years y/o Female [...] 1 Signed Report (CONTINUED) Name: LUIS EDMONDS [facility] Madeline Coffman : 2000 Age/S: 19 / F [address] [place] [address] Unit #: [id number] Loc: [place] [address] Phys: Nirav Nolan MD Acct: [id number] Dis Date: Status: REG ER PHONE #: [phone] Exam Date: 10/05/2020209 FAX #: [phone] Reason: VB EXAMS: CPT CODE: [id number] US PREG 1ST TRIMTR 53996 <Continued> SL: TPAINTER-H at 0219 Reported and signed by: Abdias Avila M.D. CC: Elina Rome MD; Nirav Nolan MD Technologist: Maryam Anderson RDMS(BR)(AB) Trnscb Date/Time: 10/05/2020 (218) [email or web address] Orig Print D/T: S: 10/05/2020 (022) Probe: PAGE 2 Signed Report- DUP AB/PEL/SC/LTD 2020-10-05 02:19:00 [facility] 2000 Sex: F Name: LUIS EDMONDS [facility] : 2000 Age/S: 19 / F [address] [place] [address] Unit #: [id number] Loc: [place] [address] Phys: Nirav Nolan MD Acct: [id number] Dis Date: Status: REGER PHONE #: [phone] Exam Date: 10/05/2020209 FAX #: [phone] Reason: see US PREG 1st TRIMTR EXAMS: CPT CODE: [id number] DUP AB/PEL/SC/LTD 39649 STUDY: - DUP AB/PEL/SC/LTD, - US PREG 1ST TRI MTR 10/05/2020 1:17 AM Ordering Physician: Nirav Nolan MD Patient Name: LUIS EDMONDS MR: [id number] : 2000; Age: 19 years y/o Female [...] resistance arterial and venous blood flowis demonstrated. LEFT OVARY AND ADNEXA: General: Normal [...] 1 Signed Report (CONTINUED) Name: LUIS EDMONDS [facility] : 2000 Age/S: 19 / F [address] [place] [address] Unit #: [id number] Loc: [place] [address] Phys: Nirav Nolan MD Acct: [id number] Dis Date: Status: REG ER PHONE #: [phone] Exam Date: 10/05/2020209 FAX #: [phone] Reason: see US PREG 1st TRIMTR EXAMS: CPT CODE: [id number] DUP AB/PEL/SC/LTD 75306<Continued> SL: TPAINTER-H at 0219 Reported and signed by: Abdias Avila M.D. CC: Elina Rome MD; Nirav Nolan MD Technologist: Maryam Anderson RDMS(BR)(AB) Trnscb Date/Time: 10/05/2020 (218) [email or web address] Orig Print D/T: S: 10/05/2020 (221) Probe: PAGE 2 Signed Report- DUP AB/PEL/SC/[id number] 22:07:00 [facility] 2000 Sex: F Name: LUIS EDMONDS [facility] : 2000 Age/S: 19 / F [address] [place] [address] Unit #: [id number] Loc: [place] [address] Phys: Cathy Bruce Acct: [id number] Dis Date: Status: REG ER PHONE #: [phone] Exam Date: 08/22/20202199 FAX #: [phone] Reason: see US PREG 1st TRIMTR EXAMS: CPT CODE: [id number] DUP AB/PEL/SC/LTD 31085 PROCEDURE: FIRST TRIMESTER ULTRASOUND INDICATION: 6 weeks [...] Elina Rome MD; Cathy MELO Technologist:Maryam Anderson RDMS(BR)(AB) Trnscb Date/Time: 08/22/2020 (2206) [email or web address] Orig Print D/T: S: 08/22/2020 (2209) Probe: PAGE 1 Signed Report- US PREG 1ST [id number] 22:07[facility]00[facility] 2000 Sex: F Name: LUIS EDMONDS [facility] : 2000 Age/S: 19 / F [address] [place] [address] Unit #: [id number] Loc: [place] [address] Phys: Cathy Bruce Acct: [id number] Dis Date: Status: REG ER PHONE #: [phone] Exam Date: 08/22/20202199 FAX #: [phone] Reason: 6w , cramping EXAMS: CPT CODE: [id number] US PREG 1ST TRIMTR 24027 PROCEDURE: FIRST TRIMESTER ULTRASOUND INDICATION: 6 weeks [...] Elina Rome MD; Cathy MELO Technologist:Maryam Anderson RDMS()(AB) Trnscb Date/Time: 08/22/2020 (2206) [email or web address] Orig Print D/T: S: 08/22/2020 (2209) Probe: PAGE 1 Signed ReportURINALYSIS [id number] 21:50:00* Test Item Value Reference Range Interpretation [...] MUCU) TRACE /LPF NONE SEEN BASIC METABOLIC [id number] 21:48:00* Test Item Value Reference Range Interpretation [...] patient ? YHOW MANY WEEKS? 6 WEEKSHCG [id number] 21:48:00* Test Item Value Reference Range Interpretation Comme nts HCG SERUM (test code = HCG) 06912.6 0 - 6 NOT PREGNA NT > 6 SUGGESTIVE OF EARLY RISES TWO FOLD EVERY 2 DAYS; SUGGEST RECONFIRMING AFTER 2 DAYS. 150,000-200,[address] TRIMESTER 10,000 - 50,000 2ND & 3RD TRIMESTERResults in emanuel-International Units/mL Is patient ? YHOW MANY WEEKS? 6 WEEKSUR HCG [id number] 21:47:00* Test Item Value Reference Range Interpretation Comme nts UR HCG QUAL (test code = HCGQLU) POSITIVE NEGATIVE CBC W/AUTO [id number] 21:33:00* Test Item Value Reference Range Interpretation [...] c ode = MDIFF) NO CBC W/AUTO [id number] 21:31:00* Test Item Value Reference Range Interpretation [...] c ode = MDIFF) Novel Coronavirus 2019 [id number] 14:50:00* Test Item Value Reference Range Interpretation Comme nts Novel Coronavirus 2019 nCoV (test code = COVID19) Negative Negative Performed by: [facility] [address] [place] [address], [address] [place], [place] [address] CLIA#: [id number] Does patient have the clinical criteria consistent with COVID-19? YIs the patient going to be discharged home? Y- CT NECK W/[id number] 02:35:00 Name: DELMER EDMONDSLLE [facility] : 2000 Age/S: 19 / F [address] [place] [address] Blvd Unit #: [id number] Loc: [place] [address] Phys: Amilcar Pablo PROGRESSIVE CARE MANAGER Acct: [id number] Dis Date: Status: REGER PHONE #: [phone] Exam Date: 02/16/2020 0134 FAX #: [phone] Reason: R lymphadenopathy, throat pain, fever EXAMS: CPT CODE: [id number] CT NECK W/CONTRAST 03674 EXAM: CT, CT NECK W/CONTRAST: 02/16/2020, 0132 [...] to indication/reason for exam; extremities or head) *Use of iterative reconstruction technique CONTRAST: 100 cc [...] 1.7 x 1.2 x 2.4 cm. No bulkyadenopathy seen. Asymmetric enlargement of the right aspect [...] 1 Signed Report (CONTINUED) Name: LUIS EDMONDS [facility] Madeline Coffman : 2000 Age/S: 19 / F [address] [place] [address] Unit #: [id number] Loc: [place] [address] Phys: Amilcar Pablo PROGRESSIVE CARE MANAGER Acct: [id number] Dis Date: Status: REG ER PHONE #: Exam Date: 02/16/2020 0134 FAX #: [phone] Reason: R lymphadenopathy, throat pain, fever EXAMS: CPT CODE: [id number] CT NECK W/CONTRAST 70315 <Continued> unremarkable. OSSEOUS STRUCTURES: There are no [...] resolution recommended. SL: TRES at 0235 Reported andsigned by: Jeromy Wolfe M.D. CC: Elina Rome MD; Amilcar Pablo NP Technologist:Josué Granado RT(R)(CT); Natasha CTDI: DLP: Trnscb Date/Time: 02/16/2020 (0235) [email or web address] Orig Print D/T: S: 02/16/2020 (0239) PAGE 2 Signed ReportCOMPREHENSIVE METABOLIC [id number] 00:12:00* Test Item Value Reference Range Interpretation [...] = ALKP) 70 IUnit/L 60-350 N MONO [id number] 00:09:00* Test Item Value Reference Range Interpretation Comme nts MONO SCREEN (test code = MONO) NEGATIVE NEGATIVE URINALYSIS [id number] 00:02:00* Test Item Value Reference Range Interpretation [...] MUCU) 1+ /LPF NONE SEEN COMPREHENSIVE METABOLIC [id number] 00:02:00* Test Item Value Reference Range Interpretation [...] code = ALKP) IUnit/L 60-350 CBC W/AUTO [id number] 23:59:00* Test Item Value Reference Range Interpretation [...] (test code = MDIFF) NO UR HCG [id number] 23:56:00* Test Item Value Reference Range Interpretation Comme nts UR HCG QUAL (test code = HCGQLU) NEGATIVE NEGATIVE Notes Date/Time Note Provider Source 2022-11-16 15:41:00 [id number] [address] PATIENT NAME: LUIS EDMONDS ADMIT DATE: 10/30/22 ACCOUNT NO: [id number] ROOM NO: [facility] AGE: 21 REPORT TYPE: 360 - QUERY RESPONSE DOCUMENT SEX: F ADMITTING PHYSICIAN:Luis Burciaga MD ATTENDING PHYSICIAN:Luis Burciaga MD Provider Query QUERY TEXT: Clarification Pathology 360MD Query related questions should be directed to: [facility] Coding Query Hotline Based on your [...] AM at 1541 PATIENT NAME: LUIS EDMONDS [facility] 2022-11-02 15:02:00 [facility] ([facility]) OB Disch REPORT#:[id number] REPORT STATUS: Signed DATE:11/02/22 TIME: 1502 PATIENT: LUIS EDMONDS UNIT #: [id number] ROOM/BED: [place] [address] : 02 AGE: 21 SEX: F ATTEND: [...] Additional discharge routines: None at 1504 RPT #:[id number] END OF REPORT [facility] 2022-11-02 14:57:00 [facility] ([facility]) OB Postpart Progr Note REPORT#:[id number] REPORT STATUS: Signed DATE:11/02/22 TIME: 1457 PATIENT: LUIS EDMONDS UNIT #: [id number] ROOM/BED: [place] [address] : 02 AGE: 21 SEX: F ATTEND: [...] routine care, discharge today at 1500 RPT #:[id number] END OF REPORT [facility] 2022-11-01 15:13:00 [facility] ([facility]) OB Postpart Progr Note REPORT#:[id number] REPORT STATUS: Signed DATE:11/01/22 TIME: 1513 PATIENT: LUIS EDMONDS UNIT #: [id number] ROOM/BED: [place] [address] : 02 AGE: 21 SEX: F ATTEND: [...] % (Auto) (14.0 - 32.0 %) 25.7 [place] % (Auto) (4.8 - 9.0 %) 9.7 H Eos % (Auto) (0.3 - 3.7 %) 0.8 Baso % (Auto) (0.0 - 2.0 %) 0.5 Neut # (Auto) (2.0 - 7.6 x10 3/uL) 7.76 H Lymph # (Auto) (1.0 - 3.8 x10 3/uL) 3.17 [place] # (Auto) (0.1 - 0.8 x10 3/uL) [...] progress Plan: routine care at 1514 RPT #:[id number] END OF REPORT [facility] 2022-10-31 15:14:00 [facility] ([facility]) DT History Physical REPORT#:[id number] REPORT STATUS: Signed DATE:10/31/22 TIME: 1514 PATIENT: LUIS EDMONDS UNIT #: [id number] ROOM/BED: [place] [address] : 02 AGE: 21 SEX: F ATTEND: [...] (14.0 - 32.0 %) 26.3 10/30 1830 [place] % (Auto) (4.8 - 9.0 %) 9.6 H 10/30 1829 Eos % (Auto) (0.3 - 3.7 %) 0.6 10/30 183 Baso % (Auto) (0.0 - 2.0 %) 0.3 10/30 1829 Neut # (Auto) (2.0 - 7.6 x10 3/uL) 6.27 10/30 1829 Lymph # (Auto) (1.0 - 3.8 x10 3/uL) 2.65 10/30 1829 [place] # (Auto) (0.1 - 0.8 x10 3/uL) [...] Source Membrane Rupture (NEGATIVE) POSITIVE H 10/30 1730 Serology RPR (NONREACTIVE) NONREACTIVE 10/30 1829 Hep [...] 10/30 183 AC (LACTATED RINGERS) IV 11/29 182 Lactated [...] 1242 70 99 10/31 1237 76 100 04/15 1232 71 99 04/ 1227 72 100 04/15 1222 70 99 04/15 1219 77.0 04/15 1219 72 114/56 04/ 1217 83 99 04/15 1212 69 97 04/15 1207 72 100 04/15 1203 36.8 04/15 1202 82 97 04/ 1157 68 99 04/15 1152 62 99 04/15 1148 72.0 04/15 1148 73 97/54 04/15 1147 70 98 04/15 1142 74 99 04/15 1137 75 98 04/15 1132 68 98 04/15 1129 72.0 /15 1129 65 99/53 04 1127 68 97 04/ 1122 62 98 04 1118 65.0 /15 1118 68 89/47 04 1117 71 97 04 1112 68 98 04 1107 70 98 04 1102 66 98 04 1057 79 100 04 1052 79 100 04/ 1051 16 04 1048 79.0 04/ 1048 68 111/56 10/31 1047 71 100 04/ 1046 16 04 1042 82.0 04/ 1042 91 115/59 100 04/ 1041 16 04/ 1037 82.0 04/ 1037 87 112/57 100 04/ 1036 16 10/31 1032 81.0 04/ 1032 92 120/56 100 04/ 1031 17 04 1028 78.0 / 1028 82 119/61 04 1027 84 100 04/15 1022 74 100 04/15 1021 17 04/15 1021 81.0 04/15 1021 68 117/59 04 1017 76 100 [...] 0020 90 100 04/15 0015 91 100 10/31 0010 101 99 10/31 0005 93 100 [...] 1725 139 117/55 98 at 1514 RPT #:[id number] END OF REPORT [facility] 2022-10-31 15:12:00 [facility] ([facility]) OB Delivery Note REPORT#:[id number] REPORT STATUS: Signed DATE:10/31/22 TIME: 1512 PATIENT: LUIS EDMONDS UNIT #: [id number] ROOM/BED: [facility] : 02 AGE: 21 SEX: F ATTEND: [...] status: GBS status: unknown Prophylaxis administered: penicillin Pattison evaluation at delivery: NRP certified personnel Admission [...] condition: stable in room at 1514 RPT #:[id number] END OF REPORT [facility] 2022-09-27 16:38:00 [facility] ([facility]) OB Disch Undelivered REPORT#:[id number] REPORT STATUS: Signed DATE:09/27/22 TIME: 163 PATIENT: BI EDMONDS UNIT #: [id number] ROOM/BED: [place] [address] : 02 AGE: 21 SEX: F ATTEND: [...] /-09/27 98.1 82-96 18 99-119/55-58 73.0-79.0 93 PATIENT [...] Monitor: toco Frequency (description): None Frequency (minutes): 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 Assessment: no evidence labor Impression: [...] timeframe: In 1-2 weeks at 1953 RPT #:[id number] END OF REPORT [facility] 2022-09-27 10:39:00 [facility] ([facility]) OB Antepartum Prog Note REPORT#:[id number] REPORT STATUS: Signed DATE:09/27/22 TIME: 1039 PATIENT: BI EDMONDS UNIT #: [id number] ROOM/BED: [place] [address] : 02 AGE: 21 SEX: F ATTEND: [...] Monitor: toco Frequency (description): none Frequency (minutes): AUTOMATIC PAD MAKING MACHINE OPERATOR: Normal exteral genitalia Cervical/ exam: Dilatation (cm): 1 Effacement (%): 50 station: -3 Presentation: Membrane status: FHR evaluation: FHR category: category I Diagnosis, Assessment Plan Diagnosis, Assessment Plan Free text A P: IUP 32 07/25 FFN + Patient found stable, patient evaluated by MFM, he recommends discharge home if no cervical change. Will check her this afternoon. at [facility] RPT #:[id number] END OF REPORT [facility] 2022-09-27 09:19:00 [facility] ([facility]) MFM Consultation Note REPORT#:[id number] REPORT STATUS: Signed DATE:09/27/22 TIME: 918 PATIENT: BI EDMONDS UNIT #: [id number] ROOM/BED: [place] [address] : 02 AGE: 21 SEX: F ATTEND: [...] globulin this preg: Monitor mode - UA: Ronaldo units: Feeding preference: Delivery data Delivery date A: Delivery time A: Birthweight [...] B/P 105/55 09/27 0708 Pulse 91 09/27 07 Pulse Ox 93 [...] pH (5.0 - 7.0) 5.0 Ur Specific [place] (1.005 - 1.030) 1.033 H Urine Protein [...] closely Floor time 50min at 0927 RPT #:[id number] END OF REPORT [facility] 2022-09-27 05:02:00 [facility] ([facility]) OB Admission / H P REPORT#:[id number] REPORT STATUS: Signed DATE:09/27/22 TIME: 0502 PATIENT: BI EDMONDS UNIT #: [id number] ROOM/BED: [place] [address] : 02 AGE: 21 SEX: F ATTEND: [...] pH (5.0 - 7.0) 5.0 Ur Specific [place] (1.005 - 1.030) 1.033 H Urine Protein [...] of 8/8. SL: 131. Impression By: Karoline - Malcolm Wilson M.D. ULTRASOUND - US PREG AFTER [...] dilation Plan: 1. Phone consult called to Chaitanya, Dr Judge. No Celestone is needed ( last course of steroid was given 3+ wk ago on 09-08-22 and 09-09-22 ). No MgSO4 is needed at 32 1/7wks with no contractions. 2. Admit for 23h observation. 3. Will recheck cx in AM. If no contraction or cervical change, will DC home. at 0512 RPT #:[id number] END OF REPORT [facility] 2022-09-26 19:34:00 [facility] ([facility]) OLGA Evaluation Note REPORT#:[id number] REPORT STATUS: Signed DATE:09/26/22 TIME: 1933 PATIENT: BI EDMONDS UNIT #: [id number] ROOM[facility]BED: [facility] : 02 AGE: 21 SEX: F ATTEND: [...] CAP PO DAILY 09/07/22 CA/IRON/FA/DHA 9 (PRENATE ESSENTIAL) Strength: 28 MG IRON-1 MG-300 MG CAP DME - CRUTCHES 03/06/22 (CRUTCH SET) 1617 Strength: 1 ITEM EACH Allergies Uncoded Allergies: MARCUS ACID- THROAT SWELLING (Severe, 08/03/22) Objective General VS: Last Documented: Result Date Time Pulse Ox 98 09/26 1858 Temp 98.1 09/26 1858 Pulse 123 09/26 1858 Resp 18 03/11 1859 B/P Mean 82.0 09/26 1858 B/P 09/26 1858 Vital Signs Date Temp Pulse [...] POC dw patient, nurse at 0502 RPT #:[id number] END OF REPORT [facility] 2022-09-26 19:30:00 [facility] ([facility]) OB Medical Screening Exam REPORT#:[id number] REPORT STATUS: Signed DATE:09/26/22 TIME: 193 PATIENT: BI EDMONDS UNIT #: [id number] ROOM/BED: [place] [address] : 02 AGE: 21 SEX: F ATTEND: Luis Burciaga MD ADM DT: AUTHOR: Zoila Gomez DO * ALL edits or amendments must be made on the electronic/computer document * Medical Screening Exam Provider Attestation Comments: Patient was seen at 1920 for contraction, back pain, and decreased FM at 32 1/ 7wks at 1931 RPT #:[id number] END OF REPORT [facility] 2022-09-14 08:43:00 [facility] ([facility]) OB Disch Undelivered REPORT#:[id number] REPORT STATUS: Signed DATE:09/14/22 TIME: 842 PATIENT: LUIS EDMONDS UNIT #: [id number] ROOM/BED: [place] [address] : 02 AGE: 21 SEX: F ATTEND: [...] Additional Discharge Routines: None at 0845 RPT #:[id number] END OF REPORT [facility] 2022-09-14 08:41:00 [facility] ([facility]) OB Antepartum Prog Note REPORT#:[id number] REPORT STATUS: Signed DATE:09/14/22 TIME: 08 PATIENT: LUIS EDMONDS UNIT #: [id number] ROOM/BED: [place] [address] : 02 AGE: 21 SEX: F ATTEND: [...] labor Plan: discharge home at 0843 RPT #:[id number] END OF REPORT [facility] 2022-09-13 17:53:00 [facility] ([facility]) OB Antepartum Prog Note REPORT#:[id number] REPORT STATUS: Signed DATE:09/13/22 TIME: 175 PATIENT: LUIS EDMONDS UNIT #: [id number] ROOM/BED: [place] [address] : 02 AGE: 21 SEX: F ATTEND: [...] infant outside hospital decreases at 1802 RPT #:[id number] END OF REPORT [facility] 2022-09-13 09:03:00 [facility] ([facility]) [facility] Progress Note REPORT#:[id number] REPORT STATUS: Signed DATE:09/13/22 TIME: 902 PATIENT: LUIS EDMONDS UNIT #: [id number] ROOM/BED: [place] [address] : 02 AGE: 21 SEX: F ATTEND: [...] closely Floor time 35min at 0911 RPT #:[id number] END OF REPORT [facility] 2022-09-12 08:28:00 [facility] ([facility]) [facility] Progress Note REPORT#:[id number] REPORT STATUS: Signed DATE:09/12/22 TIME: 827 PATIENT: LUIS EDMONDS UNIT #: [id number] ROOM/BED: [place] [address] : 02 AGE: 21 SEX: F ATTEND: [...] closely Floor time 35min at 0834 RPT #:[id number] END OF REPORT [facility] 2022-09-12 01:41:00 [facility] ([facility]) OB Antepartum Prog Note REPORT#:[id number] REPORT STATUS: Signed DATE:09/12/22 TIME: 0141 PATIENT: LUIS EDMONDS UNIT #: [id number] ROOM/BED: [place] [address] : 02 AGE: 21 SEX: F ATTEND: [...] Temp 36.6 09/11 2340 Pulse 127 09/11 2341 Resp 16 09/11 [...] Plan: continue current managmnt at 0142 RPT #:[id number] END OF REPORT [facility] 2022-09-11 22:15:00 [facility] ([facility]) OB Antepartum Prog Note REPORT#:[id number] REPORT STATUS: Signed DATE:09/11/22 TIME: 2214 PATIENT: LUIS EDMONDS UNIT #: [id number] ROOM/BED: [place] [address] : 02 AGE: 21 SEX: F ATTEND: [...] Mean 83.0 09/11 1907 Pulse Ox 99 09/118 B/P 115/62 09/11 1908 Temp 36.7 09/11 190 Pulse 93 09/11 [...] Plan: continue current managmnt at 2218 RPT #:[id number] END OF REPORT [facility] 2022-09-11 07:18:00 [facility] ([facility]) [facility] Progress Note REPORT#:[id number] REPORT STATUS: Signed DATE:09/11/22 TIME: 717 PATIENT: LUIS EDMONDS UNIT #: [id number] ROOM/BED: [place] [address] : 02 AGE: 21 SEX: F ATTEND: [...] pH (5.0 - 7.0) 6.0 Ur Specific [place] (1.005 - 1.030) 1.019 Urine Protein (NEGATIVE) [...] closely Floor time 35min at 0724 RPT #:[id number] END OF REPORT [facility] 2022-09-10 13:12:00 [facility] ([facility]) [facility] Progress Note REPORT#:[id number] REPORT STATUS: Signed DATE:09/10/22 TIME: 1312 PATIENT: LUIS EDMONDS UNIT #: [id number] ROOM/BED: [place] [address] : 02 AGE: 21 SEX: F ATTEND: [...] closely Floor time 35min at 1325 RPT #:[id number] END OF REPORT [facility] 2022-09-10 08:19:00 [facility] ([facility] OB Antepartum Prog Note REPORT#:[id number] REPORT STATUS: Signed DATE:09/10/22 TIME: 818 PATIENT: LUIS EDMONDS UNIT #: [id number] ROOM/BED: [place] [address] : 02 AGE: 21 SEX: F ATTEND: [...] Plan: continue current managmnt at 0820 RPT #:[id number] END OF REPORT [facility] 2022-09-09 12:03:00 [facility] ([facility]) OB Admission / H P REPORT#:[id number] REPORT STATUS: Signed DATE:09/09/22 TIME: 1203 PATIENT: LUIS EDMONDS UNIT #: [id number] ROOM/BED: [place] [address] : 02 AGE: 21 SEX: F ATTEND: Luis Burciaga MD ADM AUTHOR: Juany Carrillo MD * ALL edits or amendments must be made on the electronic/computer document * OB History Notes: [facility] ([facility]) OLGA Evaluation Note REPORT#:[id number] REPORT STATUS: Signed DATE:09/07/22 TIME: 2242 PATIENT: LUIS EDMONDS UNIT #: [id number] ROOM/BED: [place] [address] : 02 AGE: 21 SEX: F ATTEND: [...] pH (5.0 - 7.0) 7.0 Ur Specific [place] (1.005 - 1.030) 1.006 Urine Protein (NEGATIVE) [...] counseling/coordination of care: yes at 0549 RPT #:[id number] END OF REPORT Past History Allergies: Uncoded Allergies: MARCUS ACID- THROAT SWELLING (Severe, 08/03/22) at 1207 RPT #:[id number] END OF REPORT [facility] 2022-09-09 09:03:00 [facility] ([facility]) OB Antepartum Prog Note REPORT#:[id number] REPORT STATUS: Signed DATE:09/09/22 TIME: 902 PATIENT: LUIS EDMONDS UNIT #: [id number] ROOM/BED: [place] [address] : 02 AGE: 21 SEX: F ATTEND: [...] Plan: continue current managmnt at 0906 RPT #:[id number] END OF REPORT [facility] 2022-09-09 08:58:00 [facility] ([facility]) OB Antepartum Prog Note REPORT#:[id number] REPORT STATUS: Signed DATE:09/09/22 TIME: 0858 PATIENT: LUIS EDMONDS UNIT #: [id number] ROOM/BED: [place] [address] : 02 AGE: 21 SEX: F ATTEND: [...] Plan: continue current managmnt at 0859 RPT #:[id number] END OF REPORT [facility] 2022-09-09 07:45:00 [facility] ([facility]) MFM Progress Note REPORT#:[id number] REPORT STATUS: Signed DATE:09/09/22 TIME: 0745 PATIENT: LUIS EDMONDS UNIT #: [id number] ROOM/BED: [place] [address] : 02 AGE: 21 SEX: F ATTEND: [...] closely Floor time 35min at 0748 RPT #:[id number] END OF REPORT [facility] 2022-09-08 17:21:00 [facility] ([facility]) [facility] Consultation Note REPORT#:[id number] REPORT STATUS: Signed DATE:09/08/22 TIME: 1721 PATIENT: LUIS EDMONDS UNIT #: [id number] ROOM/BED: [place] [address] : 02 AGE: 21 SEX: F ATTEND: [...] % (Auto) (14.0 - 32.0 %) 31.0 [place] % (Auto) (4.8 - 9.0 %) 8.1 Eos % (Auto) (0.3 - 3.7 %) 0.8 Baso % (Auto) (0.0 - 2.0 %) 0.3 Neut # (Auto) (2.0 - 7.6 x10 3/uL) 6.16 Lymph # (Auto) (1.0 - 3.8 x10 3/uL) 3.22 [place] # (Auto) (0.1 - 0.8 x10 3/uL) [...] pH (5.0 - 7.0) 7.0 Ur Specific [place] (1.005 - 1.030) 1.006 Urine Protein (NEGATIVE) [...] reviewed Sono today: vtx, ant. placenta, EFW 2yxl9kl (1574g, 68%ile), nl range SIMA 15.4, nl BPP 8/8, nl umb. art. [...] with you closely Floor time 80min at 3831 RPT #:[id number] END OF REPORT [facility] 2022-09-07 22:44:00 [facility] ([facility]) OB Medical Screening Exam REPORT#:[id number] REPORT STATUS: Signed DATE:09/07/22 TIME: 1964 PATIENT: LUIS EDMONDS UNIT #: [id number] ROOM/BED: [place] [id number] : 02 AGE: 21 SEX: F ATTEND: [...] did not leak urine. at 0557 RPT #:[id number] END OF REPORT [facility] 2022-09-07 22:43:00 [facility] ([facility]) [facility] Evaluation Note REPORT#:[id number] REPORT STATUS: Signed DATE:09/07/22 TIME: 2242 PATIENT: LUIS EDMONDS UNIT #: [id number] ROOM/BED: [facility] : 02 AGE: 21 SEX: F ATTEND: [...] pH (5.0 - 7.0) 7.0 Ur Specific [place] (1.005 - 1.030) 1.006 Urine Protein (NEGATIVE) [...] counseling/coordination of care: yes at 0549 RPT #:[id number] END OF REPORT [facility] 2022-08-06 11:00:00 [facility] ([facility]) OB Medical Screening Exam REPORT#:[id number] REPORT STATUS: Signed DATE:08/06/22 TIME: 1100 PATIENT: LUIS EDMONDS UNIT #: [id number] ROOM/BED: : 02 AGE: 21 SEX: F ATTEND: Effie Solitario MD ADM AUTHOR: Effie Solitario MD * ALL edits or amendments must be made on the electronic/computer document * Medical Screening Exam Provider Attestation Attestation: The QMP MSE reviewed. DATE 08/03/2019 Notified at 1523 Provider at bedside at 1523 Comments: 21 Y/O IUP 24 2/7 presents due to cramping. at 1101 RPT #:[id number] END OF REPORT [facility] 2022-08-06 11:00:00 [facility] ([facility]) [facility] Evaluation Note REPORT#:[id number] REPORT STATUS: Signed DATE:08/06/22 TIME: 1100 PATIENT: LUIS EDMONDS UNIT #: [id number] ROOM/BED: : 02 AGE: 21 SEX: F [...] Monitor: [place]co Frequency (description): None Frequency (minutes): 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 Assessment: no evidence labor Impression: reactive NST Plan: discharge home Plan discussed with: patient, nurse at 1106 RPT #:[id number] END OF REPORT [facility] 2022-03-06 16:08:[address] [facility] report report#:[id number] report status: signed date:03/06/22 time: 1608 patient: luis edmonds unit #: [id number] room/bed: age: 21 sex: f pcp phys: [...] asdir dme - crutches (crutch set) each [facility] asdir #1 crutch set of choice patient instructions ed ankle sprain (adult), ed foot sprain, ed rice referrals provider referral: cheli gamino md follow-up: as needed notes: orthopedic surgeon address: [address] [place] [address] [address] [address] provider group: primary care follow-up: 1 week [...] chavez md on 03/06/22 at 1747 rpt #:[id number] end of report [facility] 2021-11-11 00:46:00 [facility] ([facility] EMERGENCY PROVIDER REPORT REPORT#:[id number] REPORT STATUS: Signed DATE:11/11/21 TIME: 004 PATIENT: LUIS EDMONDS UNIT #: [id number] ROOM/BED: AGE: 20 SEX: F PCP PHYS: [...] Denies sick contacts. General Initial Greet Date/Time 11/11/2122 Presentation Chief Complaint Pain, lumbar Hx Obtained [...] 08/08/21 DC: 11/11/2121 Therapy completed Discontinued Reported Medications PNV WITH [...] 116/62 11/11 0053 B/P Mean 80 11/11 52 O2 Delivery Room air 11/11 52 Temp 36.4 11/11 52 Pulse 76 11/113 Resp 18 11/11 52 Review of Vital [...] pH (5.0 - 7.0) 7 Ur Specific [place] (1.005 - 1.030) 1.010 POC Urine Protein [...] a call to 911. at 0107 RPT #:[id number] END OF REPORT [facility] 2021-08-08 22:23:00 [facility] ([facility] EMERGENCY PROVIDER REPORT REPORT#:[id number] REPORT STATUS: Signed DATE:08/08/21 TIME: 2222 PATIENT: LUIS EDMONDS UNIT #: [id number] ROOM/BED: AGE: 20 SEX: F PCP PHYS: [...] 2217 Review of Vital Signs Reviewed Focused PE [...] department or a call to 911. at [facility] RPT #:[id number] END OF REPORT [facility] 2021-03-28 09:04:00 [facility] ([facility]) OB Disch REPORT#:[id number] REPORT STATUS: Signed DATE:03/28/21 TIME: 903 PATIENT: LUIS EDMONDS UNIT #: [id number] ROOM/BED: [place] [address] : 02 AGE: 20 SEX: F ATTEND: [...] Additional discharge routines: None at 0905 RPT #:[id number] END OF REPORT [facility] 2021-03-28 09:03:00 [facility] ([facility]) OB Postpart Progr Note REPORT#:[id number] REPORT STATUS: Signed DATE:03/28/21 TIME: 902 PATIENT: LUIS EDMONDS UNIT #: [id number] ROOM/BED: [place] [address] : 02 AGE: 20 SEX: F ATTEND: [...] routine care, discharge today at 0904 RPT #:[id number] END OF REPORT [facility] 2021-03-27 09:21:00 [facility] ([facility]) OB Postpart Progr Note REPORT#:[id number] REPORT STATUS: Signed DATE:03/27/21 TIME: 920 PATIENT: LUIS EDMONDS UNIT #: [id number] ROOM/BED: [place] [address] : 02 AGE: 20 SEX: F ATTEND: [...] 03/27 0100 37.0 83 16 108/68 97 03/265 37.1 62 18 131/79 98 03/26 2035 94.0 03/26 2035 59 126/73 03/26 2021 82.0 03/26 2021 76 129/57 03/26 1956 37.1 16 03/26 1956 76.0 03/26 1956 72 117/53 03/26 1940 69 100 03/26 1935 87.0 03/26 1935 69 125/62 03/26 1925 78 100 09/08 1920 86.0 09/08 [...] % (Auto) (14.0 - 32.0 %) 24.9 [place] % (Auto) (4.8 - 9.0 %) 9.4 H Eos % (Auto) (0.3 - 3.7 %) 0.6 Baso % (Auto) (0.0 - 2.0 %) 0.2 Neut # (Auto) (2.0 - 7.6 x10 3/uL) 8.09 H Lymph # (Auto) (1.0 - 3.8 x10 3/uL) 3.13 [place] # (Auto) (0.1 - 0.8 x10 3/uL) [...] progress Plan: routine care at 0922 RPT #:[id number] END OF REPORT [facility] 2021-03-26 18:49:00 [facility] ([facility]) OB Delivery Note REPORT#:[id number] REPORT STATUS: Signed DATE:03/26/21 TIME: 1848 PATIENT: LUIS EDMONDS UNIT #: [id number] ROOM/BED: [place] [address] : 02 AGE: 20 SEX: F ATTEND: [...] loss at delivery: 50 at 1852 RPT #:[id number] END OF REPORT [facility] 2021-03-26 08:25:00 [facility] ([facility]) DT History Physical REPORT#:[id number] REPORT STATUS: Signed DATE:03/26/21 TIME: 824 PATIENT: LUIS EDMONDS UNIT #: [id number] ROOM/BED: [place] [address] : 02 AGE: 20 SEX: F ATTEND: Luis Burciaga MD ADM AUTHOR: Luis Burciaga MD * ALL edits or amendments must be made on the electronic/computer document * History Physical History Physical Please care records and office H P at 2112 RPT #:[id number] END OF REPORT [facility] 2021-03-12 21:16:00 [facility] ([facility]) OB Medical Screening Exam REPORT#:[id number] REPORT STATUS: Signed DATE:03/12/21 TIME: 2115 PATIENT: LUIS EDMONDS UNIT #: [id number] ROOM/BED: : 02 AGE: 20 SEX: F ATTEND: Effie Solitario MD ADM AUTHOR: Effie Solitario MD * ALL edits or amendments must be made on the electronic/computer document * Medical Screening Exam Provider Attestation Attestation: The QMP MSE reviewed. Provider at bedside at 2113 Comments: 20 y/o GP0 IUP 35 4/7 presents due to leaking of fluid and contractions. at 2152 RPT #:[id number] END OF REPORT [facility] 2021-03-12 21:16:00 [facility] ([facility]) [facility] Evaluation Note REPORT#:[id number] REPORT STATUS: Signed DATE:03/12/21 TIME: 2115 PATIENT: LUIS EDMONDS UNIT #: [id number] ROOM/BED: [place] [address] : 02 AGE: 20 SEX: F ATTEND: [...] toco Frequency (description): uterine irritability Frequency (minutes): 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 Assessment: no evidence labor Impression: reactive NST Plan: discharge home Plan discussed with: patient, nurse at 0104 RPT #:[id number] END OF REPORT [facility] 2021-03-01 06:09:00 [facility] ([facility]) [facility] Evaluation Note REPORT#:[id number] REPORT STATUS: Signed DATE:03/01/21 TIME: 06 PATIENT: LUIS EDMONDS UNIT #: [id number] ROOM/BED: [place] [address] : 02 AGE: 20 SEX: F ATTEND: [...] 1 TAB PO DAILY 12/25/20 03/01/21 FUMARATE/FA 9931 9569 () Strength: 1 EACH TAB Allergies Uncoded [...] 0542 B/P 111/72 03/01 0542 Pulse 106 / 0542 Temp 98.1 08 0540 Resp 16 03/01 0540 Vital Signs Date Temp Pulse Resp B/P B/P Mean Pulse Ox FiO2 / 98.1 106 16 111/72 85.0 PATIENT WEIGHT: Weight (lb): Weight (oz): Weight (kg): Physical Exam Additional comments: Gen: AAOx3 Lungs: normal respiratory effort Neuro: Exam: alert, oriented x3 Abdomen: gravid, soft Uterine activity: Monitor: toco Frequency (description): irregular Frequency (minutes): AUTOMATIC PAD MAKING MACHINE OPERATOR: Normal exteral genitalia Cervical/ exam: [...] AT HER APT WEDNESDAY. at 0854 RPT #:[id number] END OF REPORT [facility] 2021-03-01 06:09:00 [facility] ([facility] OB Medical Screening Exam REPORT#:[id number] REPORT STATUS: Signed DATE:03/01/21 TIME: 608 PATIENT: LUIS EDMONDS UNIT #: [id number] ROOM/BED: [place] [address] : 02 AGE: 20 SEX: F ATTEND: Luis Burciaga MD ADM AUTHOR: Effie Solitario MD * ALL edits or amendments must be made on the electronic/computer document * Medical Screening Exam Provider Attestation Attestation: The QMP MSE reviewed. Provider at bedside at 0600 Comments: IUP 34 0/7 presents due to decreased movements and pelvic pressure. at 0643 RPT #:[id number] END OF REPORT [facility] 2021-03-01 06:09:00 [facility] ([facility]) [place] Evaluation Note REPORT#:[id number] REPORT STATUS: Signed DATE:03/01/21 TIME: 608 PATIENT: LUIS EDMONDS UNIT #: [id number] ROOM/BED: [place] [address] : 02 AGE: 20 SEX: F ATTEND: [...] Monitor: toco Frequency (description): irregular Frequency (minutes): AUTOMATIC PAD MAKING MACHINE OPERATOR: Normal exteral genitalia Cervical/ exam: [...] assume care at 0700 at 0647 RPT #:[id number] END OF REPORT [facility] 2021-02-17 15:34:00 [facility] OB Medical Screening Exam REPORT#:[id number] REPORT STATUS: Signed DATE:02/17/21 TIME: 153 PATIENT: LUIS EMDONDS UNIT #: [id number] ROOM/BED: [place] [address] : 02 AGE: 20 SEX: F ATTEND: Effie Solitario MD ADM DT: AUTHOR: Effie Solitario MD * ALL edits or amendments must be made on the electronic/computer document * Medical Screening Exam Provider Attestation Attestation: The QMP MSE reviewed. Provider at bedside at 1535 Comments: 20 y/o IUP 32 2/7 presents due to gush of fluids and cramping. at 1615 [facility] #:[id number] END OF REPORT [facility] 2021-02-17 15:34:00 [facility] ([facility]) [place] Evaluation Note REPORT#:[id number] REPORT STATUS: Signed DATE:02/17/21 TIME: 1534 PATIENT: LUIS EDMONDS UNIT #: [id number] ROOM/BED: : 02 AGE: 20 SEX: F [...] Monitor: toco Frequency (description): none Frequency (minutes): 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 Assessment: no evidence labor Impression: reactive NST Plan: discharge home Plan discussed with: patient, nurse at 1950 RPT #:[id number] END OF REPORT [facility] 2021-02-12 21:22:00 [facility] ([facility]) OB Medical Screening Exam REPORT#:[id number] REPORT STATUS: Signed DATE:02/12/21 TIME: 2121 PATIENT: LUIS EDMONDS UNIT #: [id number] ROOM/BED: : 02 AGE: 20 SEX: F [...] nausea and decreased movements. at 0915 RPT #:[id number] END OF REPORT [facility] 2021-02-12 21:21:00 [facility] ([facility]) [facility] Evaluation Note REPORT#:[id number] REPORT STATUS: Signed DATE:02/12/21 TIME: 2120 PATIENT: LUIS EDMONDS UNIT #: [id number] ROOM/BED: : 02 AGE: 20 SEX: F [...] Monitor: toco Frequency (description): none Frequency (minutes): AUTOMATIC PAD MAKING MACHINE OPERATOR: Normal exteral genitalia Cervical/ exam: Speculum exam: no discharge Dilatation (cm): closed Effacement (%): thick station: high FHR evaluation: FHR category: category I Results Findings/Data: Laboratory Tests: 02/12 Miscellaneous Fibronectin (NEGATIVE) NEGATIVE Urines Urine Color (YEL/STRAW) YELLOW Urine Appearance (CLEAR) CLEAR Urine pH (5.0 - 7.0) 6.0 Ur Specific [place] (1.005 - 1.030) 1.006 Urine Protein (NEGATIVE) [...] understanding will have her follow-up with her COPY MACHINE OPERATOR. Assessment: no evidence labor Impression: reactive NST Plan: discharge home Plan discussed with: patient, nurse at 0921 [facility] #:[id number] END OF REPORT [facility] 2021-01-29 03:41:00 [facility] ([facility]) [place] Evaluation Note REPORT#:[id number] REPORT STATUS: Signed DATE:01/29/21 TIME: 034 PATIENT: LUIS EDMONDS UNIT #: [id number] ROOM/BED: [place] [address] : 02 AGE: 20 SEX: F ATTEND: [...] pH (5.0 - 7.0) 7.0 Ur Specific [place] (1.005 - 1.030) 1.010 Urine Protein (NEGATIVE) [...] f/u as scheduled with primary OB in [place], [place] at 0355 RPT #:[id number] END OF REPORT [facility] 2021-01-29 03:39:00 [facility] ([facility]) OB Medical Screening Exam REPORT#:[id number] REPORT STATUS: Signed DATE:01/29/21 TIME: 033 PATIENT: LUIS EDMONDS UNIT #: [id number] ROOM/BED: [place] [address] : 02 AGE: 20 SEX: F ATTEND: [...] no lof/rom. no vb. at 0341 RPT #:[id number] END OF REPORT [facility] 2020-12-25 16:25:00 [facility] ([facility]) [place] Evaluation Note REPORT#:[id number] REPORT STATUS: Signed DATE:12/25/20 TIME: 1625 PATIENT: LUIS EDMONDS UNIT #: [id number] ROOM/BED: [place] [address] : 02 AGE: 20 SEX: F ATTEND: Pearl Chvaez DO ADM AUTHOR: Pearl Chavez DO * [...] prior u/s at [facility] that ISMA was low, she [...] for cxn. Will f/u at 1632 RPT #:[id number] END OF REPORT [facility] 2020-12-25 16:25:00 [facility] ([facility]) [place] Evaluation Note REPORT#:[id number] REPORT STATUS: Signed DATE:12/25/20 TIME: 1625 PATIENT: LUIS EDMONDS UNIT #: [id number] ROOM/BED: [place] [address] : 02 AGE: 20 SEX: F ATTEND: [...] prior u/s at [facility] that ISMA was low, she [...] her OB this week. at 1807 RPT #:[id number] END OF REPORT [facility] 2020-12-25 16:24:00 [facility]) OB Medical Screening Exam REPORT#:[id number] REPORT STATUS: Signed DATE:12/25/20 TIME: 1624 PATIENT: LUIS EDMONDS UNIT #: [id number] ROOM/BED: [place] [address] : 02 AGE: 20 SEX: F ATTEND: Pearl Chavez DO ADM AUTHOR: Pearl Chavez DO * ALL edits or amendments must be made on the electronic/computer document * Medical Screening Exam Provider Attestation Comments: Pt triaged at 1610. at 1625 RPT #:[id number] END OF REPORT [facility] 2020-11-23 00:54:00 [facility]) OB Triage Visit REPORT#:[id number] REPORT STATUS: Signed DATE:11/23/20 TIME: 0054 PATIENT: LUIS EDMONDS UNIT #: [id number] ROOM/BED: [place] [address] : 02 AGE: 19 SEX: F ATTEND: [...] PNC at the [facility]. Did not need to wear a ad [...] type ordered Ultrasound complete at 0107 RPT #:[id number] END OF REPORT [facility] 2020-10-05 03:31:00 [facility] ([facility]) EMERGENCY PROVIDER REPORT REPORT#:[id number] REPORT STATUS: Signed DATE:10/05/20 TIME: 033 PATIENT: LUIS EDMONDS UNIT #: [id number] ROOM/BED: AGE: 19 SEX: F PCP PHYS: [...] Lab Results Interpretation Results Laboratory Tests 10/05/20 021: [Embedded Image Not Available] Laboratory Tests: 10/05 [...] % (Auto) (28.0 - 48.0 %) 33.4 [place] % (Auto) (3.0 - 15.0 %) 6.3 Eos % (Auto) (1.0 - 8.0 %) 1.1 Baso % (Auto) (0.0 - 2.0 %) 0.5 Neut # (Auto) (2.0 - 3.2 x10 3/uL) 7.28 H Lymph # (Auto) (1.0 - 3.8 x10 3/uL) 4.17 H [place] # (Auto) (0.1 - 0.8 x10 3/uL) [...] x10 3/uL) 0.00 Miscellaneous Maternal Serum HCG 64120.3 Urines Urine Color (YEL/STRAW) YELLOW Urine Appearance (CLEAR) CLEAR Urine pH (5.0 - 7.0) 5.0 Ur Specific [place] (1.005 - 1.030) 1.017 Urine Protein (NEGATIVE) [...] 0 days. SL: TPAINTER-H Impression By: Tiffanie - Abdias Avila M.D. ULTRASOUND - US PREG 1ST TRIMTR 10/05 209 Report Impression - Status: SIGNED Entered: 10/05/2020221 IMPRESSION: Normal single live intrauterine at 13 weeks 0 days. SL: TPAINTER-H Impression By: [email or web address] - Abdias Avila M.D. Lab Imaging Statement [...] STA 10/05 0145 DC 10/05 PO 10/05 014 0157 Electrolytic, Caloric, And Gregor Sig/Victoriano Start [...] ... Additional Instructions TYLENOL DIRECTED at 2314 [facility] #:[id number] END OF REPORT [facility] 2020-08-22 20:42:00 [facility] ([facility]) EMERGENCY PROVIDER REPORT REPORT#:[id number] REPORT STATUS: Signed DATE:08/22/20 TIME: 2041 PATIENT: LUIS EDMONDS UNIT #: [id number] ROOM/BED: AGE: 19 SEX: F PCP PHYS: Elina Rome MD SERVICE AUTHOR: Cathy Bruce * ALL edits or amendments must be made on the electronic/computer document * HPI- Female Free Text HPI Notes Free Text HPI Notes 19-year-old female G1, 6 weeks EGA with LMP12/21 presents 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 She reports associated nausea, [...] No palpable masses or pulsetile masses. Negative Carolina Sign. No TTP at [place] Ext: FROM BUE/LE. No swelling or deformity. Calves supple bilaterally. 2+ distal pulses, NVI Neuro: A O x 3, GCS 15, CN I-XII grossly intact without focal deficit. Psych: Normal mood and affect. Interpretation Diagnostics Lab Results Interpretation Results Laboratory Tests 08/22/20 2100: [Embedded Image Not Available] Laboratory Tests: 08/22 2100 Chemistry Sodium (134 - 147 mEq/L) [...] % (Auto) (28.0 - 48.0 %) 30.6 [place] % (Auto) (3.0 - 15.0 %) 5.9 Eos % (Auto) (1.0 - 8.0 %) 0.6 L Baso % (Auto) (0.0 - 2.0 %) 0.7 Neut # (Auto) (2.0 - 3.2 x10 3/uL) 6.51 H Lymph # (Auto) (1.0 - 3.8 x10 3/uL) 3.22 [place] # (Auto) (0.1 - 0.8 x10 3/uL) [...] x10 3/uL) 0.00 Miscellaneous Maternal Serum HCG 30768.6 Urines Urine Color (YEL/STRAW) STRAW Urine Appearance (CLEAR) CLEAR Urine pH (5.0 - 7.0) 6.0 Ur Specific [place] (1.005 - 1.030) 1.008 Urine Protein (NEGATIVE) [...] a call to 911. 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 She reports associated nausea, [...] No palpable masses or pulsetile masses. Negative [place] Sign. No TTP at [place] Ext: FROM BUE/LE. No swelling or deformity. Calves supple bilaterally. 2+ distal pulses, NVI Neuro: A O x 3, GCS 15, CN I-XII grossly intact without focal deficit. Psych: Normal mood and affect. Interpretation Diagnostics Lab Results Interpretation Results Laboratory Tests 08/22/20 2100: [Embedded Image Not Available] Laboratory Tests: 08/22 2100 Chemistry Sodium (134 - 147 mEq/L) [...] % (Auto) (28.0 - 48.0 %) 30.6 [place] % (Auto) (3.0 - 15.0 %) 5.9 Eos % (Auto) (1.0 - 8.0 %) 0.6 L Baso % (Auto) (0.0 - 2.0 %) 0.7 Neut # (Auto) (2.0 - 3.2 x10 3/uL) 6.51 H Lymph # (Auto) (1.0 - 3.8 x10 3/uL) 3.22 [place] # (Auto) (0.1 - 0.8 x10 3/uL) [...] x10 3/uL) 0.00 Miscellaneous Maternal Serum HCG 24741.6 Urines Urine Color (YEL/STRAW) STRAW Urine Appearance (CLEAR) CLEAR Urine pH (5.0 - 7.0) 6.0 Ur Specific [place] (1.005 - 1.030) 1.008 Urine Protein (NEGATIVE) [...] Saw Pt Alone I have reviewed the PA/PROGRESSIVE CARE MANAGER's note and plan of care. I was available for consultation as needed at all times during the patient's visit in the emergency department. I agree with the clinical impression, plan and disposition. at 2346 at 2338 RPT #:[id number] END OF REPORT [facility] 2020-02-15 23:20:00 [facility] ([facility]) EMERGENCY PROVIDER REPORT REPORT#:[id number] REPORT STATUS: Signed DATE:02/15/20 TIME: 2319 PATIENT: LUIS EDMONDS UNIT #: [id number] ROOM/BED: AGE: 19 SEX: F PCP PHYS: [...] Covid exposures. General Initial Greet Date/Time 02/15/20 3555 Presentation Chief Complaint Fever, Sore throat Hx [...] 2326: [Embedded Image Not Available] Laboratory Tests: 02/146 [...] (Auto) (28.0 - 48.0 %) 13.9 L [place] % (Auto) (3.0 - 15.0 %) 10.0 Eos % (Auto) (1.0 - 8.0 %) 0.0 L Baso % (Auto) (0.0 - 2.0 %) 0.4 Neut # (Auto) (2.0 - 3.2 x10 3/uL) 9.16 H Lymph # (Auto) (1.0 - 3.8 x10 3/uL) 1.70 [place] # (Auto) (0.1 - 0.8 x10 3/uL) [...] pH (5.0 - 7.0) 6.0 Ur Specific [place] (1.005 - 1.030) 1.015 Urine Protein (NEGATIVE) [...] ML X1ED STA 02/142 DC 02/14 IV 02/143 2321 Eye, Ear, Nose And Throat (Een Sig/Victoriano Start time Last Medication Dose Route Stop Time Status Admin Dexamethasone Sodium 10 MG X1ED STA 02/15 2312 DC 02/14 Phosphate IV 02/14 2313 232 Gastrointestinal Drugs Sig/Victoriano Start time Last Medication Dose Route Stop Time Status Admin Ondansetron HCl 4 MG X1ED STA 02/15 2312 DC 02/14 IV 02/14 2313 232 [...] Elina Rome MD (PCP/Family) at 0332 RPT #:[id number] END OF REPORT [facility] 2020-02-15 23:20:00 [facility] ([facility]) EMERGENCY PROVIDER REPORT REPORT#:[id number] REPORT STATUS: Signed DATE:02/15/20 TIME: 2319 PATIENT: LUIS EDMONDS UNIT #: [id number] ROOM/BED: AGE: 19 SEX: F PCP PHYS: [...] Delivery Room air 02/16 328 Temp 36.8 02/158 Pulse 83 02/15 0328 Resp 18 02/15 [...] (Auto) (28.0 - 48.0 %) 13.9 L [place] % (Auto) (3.0 - 15.0 %) 10.0 Eos % (Auto) (1.0 - 8.0 %) 0.0 L Baso % (Auto) (0.0 - 2.0 %) 0.4 Neut # (Auto) (2.0 - 3.2 x10 3/uL) 9.16 H Lymph # (Auto) (1.0 - 3.8 x10 3/uL) 1.70 [place] # (Auto) (0.1 - 0.8 x10 3/uL) [...] pH (5.0 - 7.0) 6.0 Ur Specific [place] (1.005 - 1.030) 1.015 Urine Protein (NEGATIVE) [...] to resolution recommended. SL: TRES Impression By: KaneJSMary Wolfe M.D. Lab Imaging Statement Laboratory radiographic [...] HPI-General Illness General Initial Greet Date/Time 02/15/20 5825 Patient Discharge Departure Supervising Physician Note MidLv Saw Pt Alone I have reviewed the PA/PROGRESSIVE CARE MANAGER's note and plan of care. I was available for consultation as needed at all times during the patient's visit in the emergency department. I agree with the clinical impression, plan and disposition. at 0332 RPT #:[id number] END OF REPORT [facility] 2020-02-15 23:20:00 [facility] ([facility]) EMERGENCY PROVIDER REPORT REPORT#:[id number] REPORT STATUS: Signed DATE:02/15/20 TIME: 2319 PATIENT: LUIS EDMONDS UNIT #: [id number] ROOM/BED: AGE: 19 SEX: F PCP PHYS: [...] (Auto) (28.0 - 48.0 %) 13.9 L [place] % (Auto) (3.0 - 15.0 %) 10.0 Eos % (Auto) (1.0 - 8.0 %) 0.0 L Baso % (Auto) (0.0 - 2.0 %) 0.4 Neut # (Auto) (2.0 - 3.2 x10 3/uL) 9.16 H Lymph # (Auto) (1.0 - 3.8 x10 3/uL) 1.70 [place] # (Auto) (0.1 - 0.8 x10 3/uL) [...] pH (5.0 - 7.0) 6.0 Ur Specific [place] (1.005 - 1.030) 1.015 Urine Protein (NEGATIVE) [...] 70 ML .STK-MED ONE 02/15 013 DC 02/15 IV 02/15 137 0136 Electrolytic, [...] Delivery Room air 02/15 2308 Temp 39.1 02/14 230 Pulse 117 02/14 2308 Resp 18 02/14 2308 Last Documented: Result Date Time Pulse Ox 99 02/16 328 B/P 96/55 02/16 328 B/P Mean 68 02/16 328 O2 Delivery Room air 02/16 328 Temp 36.8 02/16 328 Pulse 83 02/16 328 Resp 18 02/158 All vital signs available [...] Saw Pt Alone I have reviewed the PA/PROGRESSIVE CARE MANAGER's note and plan of care. I was available for consultation as needed at all times during the patient's visit in the emergency department. I agree with the clinical impression, plan and disposition. 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 Pt reports eating sour Skittles and felt sensation of throat swelling with associated neck/throat itchiness and SOB. 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 Pt was seen here previously on 05/02/19 [...] Room air 05/22 112 Temp 36.7 05/22 1120 Pulse 90 05/22 [...] Dose Route Stop Time Status Admin Ipratropium Elmore 0.5 MG Q15M 05/22 1130 DC 05/22 [...] on 05/22/19 at 1129 at 2022 RPT #:[id number] END OF REPORT [facility] 2019-05-02 09:53:00 [facility] ([facility] EMERGENCY PROVIDER REPORT REPORT#:[id number] REPORT STATUS: Signed DATE:05/02/19 TIME: 952 PATIENT: LUIS EDMONDS UNIT #: [id number] ROOM/BED: AGE: 18 SEX: F PCP PHYS: Elina Rome MD SERVICE AUTHOR: Carla Toledo MD * ALL edits or amendments must be made on the electronic/computer document * HPI-Allergic Reaction Peds General Confirmed Patient Yes Initial Greet Date/Time 05/02/[address] 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 Now c/o itchy throat. Denies nausea and [...] Priscilla Edwards on 05/02/19 at 0957 at 1430 RPT #:[id number] END OF REPORT [facility]
[2025-03-01 19:13] LABS: Sqamous Epithelial <5 /HPF (None Seen); Urine Culture Reflex Order NOT NEEDED; Urine Microscopic Reflex YN ORDER UMIC
[2025-03-01] MEDS ORDERED: HYDROCODONE/APAP 5/325 MG TAB ONE (20:28)
--- NOTE | 2025-03-01 20:29 | EDPHYS ---
Physician Documentation [facility] Name: Hilaria Rogers Age: 24 yrs Sex: Female : 2000 Arrival Date: 03/01/2025 Time: 17:51 Bed 11 Private MD: ED Physician Shiraz Tidwell HPI: 03/01 18:28 This 24 yrs old Female presents to ER via Ambulatory with complaints of dr5 Vaginal Itching, Vaginal Pain, Recheck - HCG LEVEL. 18:28 Onset: The symptoms/episode began/occurred 5 day(s) ago. Patient is a 24-year-old dr5 female with history anxiety coming in with vaginal itching and recheck of hCG. Patient reports that she has went to her OPERATIONS ENGINEER in May 2 days ago and had swabs completed. Patient reports that they are waiting for results before giving her medications. Patient denies fever, malodorous smell, vaginal discharge or vaginal bleeding. Patient also reports that they called her back and reported that her hCG level was 1.. Historical: - Allergies: 18:05 sour candy; aa5 - PMHx: 18:05 Anxiety; aa5 - PSHx: 18:05 Adenoid excision; Appendectomy; Tonsillectomy; aa5 ROS: 18:28 Constitutional: as per hpi dr5 Exam: 18:28 Constitutional: This is a well developed, well nourished patient who is awake, alert, dr5 and in no acute distress. Head/Face: Normocephalic, atraumatic. Eyes: Pupils equal round and reactive to light, extra-ocular motions intact. Lids and lashes normal. Conjunctiva and sclera are non-icteric and not injected. Cornea within normal limits. Periorbital areas with no swelling, redness, or edema. Neck: Trachea midline, no thyromegaly or masses palpated, and no cervical lymphadenopathy. Supple, full range of motion without nuchal rigidity, or vertebral point tenderness. No Meningismus. Chest/axilla: Normal chest wall appearance and motion. Nontender with no deformity. No lesions are appreciated. Cardiovascular: Regular rate and rhythm with a normal S1 and S2. Normal PMI, no JVD. No pulse deficits. Respiratory: Lungs have equal breath sounds bilaterally, clear to auscultation. No rales, rhonchi or wheezes noted. No increased work of breathing, no retractions or nasal flaring. Back: No spinal tenderness. No costovertebral tenderness. Full range of motion. Skin: Warm, dry with normal turgor. Normal color with no rashes, no lesions, and no evidence of cellulitis. MS/ Extremity: Pulses equal, no cyanosis. Neurovascular intact. Full, normal range of motion. Neuro: Awake and alert, GCS 15, oriented to person, place, time, and situation. Cranial nerves II-XII grossly intact. Motor strength 5/5 in all extremities. Sensory grossly intact. Cerebellar exam normal. Normal gait. Vital Signs: 18:05 BP 122 / 85; Pulse 83; Resp 18 S; Temp 98(O); Pulse Ox 100% on R/A; aa5 MDM: 17:58 Medical Screening Exam initiated dr5 20:19 Differential diagnosis: erik infection, urinary tract infection, vaginosis, dr5 Bacterial vaginosis, trichomonas. Data reviewed: vital signs, nurses notes, lab test result(s), Beta HCG: Less than 1 urinalysis. Consideration of Admission/Observation Escalation of care including admission/observation considered. Escalation considered patient found to have needing ultrasound for possible ectopic. I considered the following discharge prescriptions or medication management in the emergency department I discussed and recommended Over The Counter medications. Care significantly affected by the following chronic conditions: Anxiety. Care significantly affected by the following Social Determinants of Health: Poor access to healthcare and/or lack of insurance, Poor access to transportation, Problems related to employment. Counseling: I had a detailed discussion with the patient and/or guardian regarding the historical points, exam findings, and any diagnostic results supporting the discharge/admit diagnosis, the presence of at least one elevated blood pressure reading (>120/80) during this emergency department visit, lab results, the need for outpatient follow up, for definitive care, an OB/Gyne specialist, to return to the emergency department if symptoms worsen or persist or if there are any questions or concerns that arise at home. Special discussion: I discussed with the patient/guardian in detail that at this point there is no indication for admission to the hospital. It is understood, however, that if the symptoms persist or worsen the patient needs to return immediately for re-evaluation. Based on the history and exam findings, there is no indication for further emergent testing or inpatient evaluation. I discussed with the patient/guardian the need to see the OB Gyne specialist for further evaluation of the symptoms. ED course: Will treat patient for possible bacterial vaginosis and/or trichomonas with metronidazole as well as yeast with Diflucan one-time. Recommended patient call OPERATIONS ENGINEER that did swabs tomorrow to see about results. All question answered. Strict ER precautions given. 03/01 18:13 Order name: UA Rfx Garry Cult if indicated; Complete Time: 19:20 dr5 03/01 18:13 Order name: HCG-Quantitative; Complete Time: 20:28 dr5 Administered Medications: 20:40 Drug: HYDROcodone-acetaminophen PO 5 mg-325 mg 1 tabs PO once Route: PO; br2 Disposition: 19:05 I was immediately available on-site in the Emergency Department for consultation in the ms3 care of the patient. Disposition Summary: 03/01/25 20:28 Discharge Ordered Notes: Location: Home dr5 Condition: Stable dr5 Diagnosis - Pelvic and perineal pain dr5 Followup: dr5 - With: Emergency Department - When: As needed - Reason: Worsening of condition Followup: dr5 - With: Private Physician - When: 1 - 2 days - Reason: Recheck today's complaints, Continuance of care, Re-evaluation by your physician Discharge Instructions: - Discharge Summary Sheet dr5 - Bacterial Vaginosis dr5 - Pelvic Pain, Female, [id number] dr5 Forms: - Medication Reconciliation Form dr5 - Antibiotic Education dr5 - Patient Portal Instructions dr5 - Leadership Thank You Letter dr5 Prescriptions: - Fluconazole 150 mg Oral tablet - take 1 tablet ORAL route one time; 1 tablet; Refills: 0, Product Selection dr5 Permitted - Metronidazole 500 mg Oral tablet - take 1 tablet ORAL route every 12 hours for 7 days; 20 tablet; Refills: 0, dr5 Product Selection Permitted Signatures: Dispatcher [employer] EDID Linda Valdez RN RN aa5 Shiraz Tidwell DO DO ms3 Bernadette Balbuena RN RN br2 Garcia Bauer, [employer] SOUND CONTROLLER-Cdr5 Corrections: (The following items were deleted from the chart) 20:27 20:24 Rate is 94 beats/min. Rhythm is regular. QRS Harmony is Normal. WA interval is dr5 normal at 134 msec. QRS interval is normal at 130 msec. QT interval is normal at 378 msec. Clinical impression: Normal ECG and No evidence of ischemia. dr5
--- NOTE | 2025-03-01 20:29 | ER ---
Nurse's Notes [facility] Name: Hilaria Rogers Age: 24 yrs Sex: Female : 2000 Arrival Date: 03/01/2025 Time: 17:51 Bed 11 Private MD: Diagnosis: Pelvic and perineal pain Presentation: 03/01 18:05 Chief complaint: Chief complaint: Patient states: vaginal burning pain, vaginal aa5 itching, vaginal pressure that began 4-5 days ago. 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 18:05 Acuity: CONCHITA 3 aa5 18:05 Coronavirus screen: At this time, the client does not indicate any symptoms associated aa5 with coronavirus-19. Ebola Screen: Patient denies travel to an Ebola-affected area in the 21 days before illness onset. Initial Sepsis Screen: Does the patient meet any 2 criteria? No. Patient's initial sepsis screen is negative. Does the patient have a suspected source of infection? No. Patient's initial sepsis screen is negative. Risk Assessment: Do you want to hurt yourself or someone else? Patient reports no desire to harm self or others. Onset of symptoms was February 2025. 18:05 Method Of Arrival: Ambulatory aa5 Historical: - Allergies: 18:05 sour candy; aa5 - PMHx: 18:05 Anxiety; aa5 - PSHx: 18:05 Adenoid excision; Appendectomy; Tonsillectomy; aa5 Screenin:30 [facility] ED Fall Risk Assessment (Adult) History of falling in the last 3 months, br2 including since admission No falls in past 3 months (0 pts) Confusion or Disorientation No (0 pts) Intoxicated or Sedated No (0 pts) Impaired Gait No (0 pts) Mobility Assist Device Used No (0 pt) Altered Elimination No (0 pt) Score/Fall Risk Level 0 - 2 = Low Risk Oriented to surroundings. Abuse screen: Denies threats or abuse. Denies injuries from another. Nutritional screening: No deficits noted. Tuberculosis screening: No symptoms or risk factors identified. Assessment: 19:30 Reassessment: Patient and/or family updated on plan of care and expected duration. Pain br2 level reassessed. Patient is alert, oriented x 3, equal unlabored respirations, skin warm/dry/pink. General: Appears in no apparent distress. comfortable, Behavior is agitated. Pain: Complains of pain in groin Pain currently is 10 out of 10 on a pain scale. Derm: Reports burning. Vital Signs: 18:05 BP 122 / 85; Pulse 83; Resp 18 S; Temp 98(O); Pulse Ox 100% on R/A; aa5 ED Course: 17:56 Patient arrived in ED. cj3 17:57 [facility]C [facility] 17:57 Shiraz Tidwell DO is Attending Physician. dr5 18:05 Arm band placed on. aa5 18:07 Triage completed. aa5 19:30 Patient has correct armband on for positive identification. Bed in low position. br2 Patient has correct armband on for positive identification. Bed in low position. Provided Education on: PLAN OF CARE. 20:47 No provider procedures requiring assistance completed. Patient did not have IV access br2 during this emergency room visit. Administered Medications: 20:40 Drug: HYDROcodone-acetaminophen PO 5 mg-325 mg 1 tabs PO once Route: PO; br2 Medication: 19:30 VIS not applicable for this client. br2 Outcome: 20:28 Discharge ordered by MD. dr5 20:47 Discharged to home ambulatory, br2 20:47 Condition: good 20:47 Discharge instructions given to patient, Instructed on discharge instructions, follow up and referral plans. Demonstrated understanding of instructions, follow-up care, medications, Prescriptions given X 2, 20:48 Patient left the ED. br2 Signatures: Linda Valdez RN RN aa5 Bernadette Balbuena RN RN br2 Garcia Bauer FNP-C FNP-Cdr5 Elizabeth Bloom cj3 Corrections: (The following items were deleted from the chart) 18:09 18:05 Chief complaint: aa5 aa5
[2025-03-01 21:29] VITALS: BP 122/85; TEMP 98; O2SAT 100
== END 2025-03-01 20:48 | disposition home or self-care (01) ==
LOC: ER 17:51
DX: R10.2 Pelvic and perineal pain (principal)
CPT/HCPCS: 36415; 81001; 84702; 99283

== ENCOUNTER 2025-04-24 23:10 | Emergency (ER) | payer SELFPAY ==
--- OUTSIDE RECORDS SUMMARY | 2025-04-24 23:19 | XMS REPORT | Continuity of Care Document ---
Author Name Unknown Address [address] [facility] [place] [address] Organization [facility] [place] Address [address] [facility] [place] [address] Care Team Providers Care Master Of Ceremonies Name Role Phone FREDERICK RICHARDSON Joceline Primary Care Physician Unavailab Brittnee Acosta Attending Clinician UnavailMADHAVI Garnett Attending Clinician Unavailable MERT MILES Attending Clinician Unavailable MERT MILES Attending Clinician Unavailable PHILL ROMAN Attending Clinician UnavailPhill Garnett MD Attending Clinician [phone] Luis Burciaga Attending Clinician UnavailSUZY Malcolm Attending Clinician Unavailable Suzy Uriostegui MD Attending Clinician [phone] Effie Marquez Attending Clinician Unava ilANTONIA Ken Attending Clinician Unavailable Antonia Pike MD Attending Clinician [phone] Ghanshyam Chavez Attending Clinician Tierney vilma Nurse, Osvaldo Evangelista Attending Clinician Unavaila Frederick Herrera MD Attending Clinician [phone] FREDERICK RICHARDSON Attending Clinician Unavailable AR RICHARDSON Attending Clinician Unavailable Ar Richardson MD Attending Clinician [phone] Kishor Bishop Attending Clinician Unavailable ELINA ROME Attending Clinician Unavailable Madhavi Roman PA-C Attending Clinician [phone] Dottie Chavez Attending Clinician UnavailZachery KIMP, Nathalia Cagle Attending Clinician [phone] Ny Khan MD Attending Clinician [phone] Olivier OPERATING SYSTEM PROGRAMMER, Aneta Esparza Attending Clinician [phone] Unknown, Attending Attending Clinician Unavailab miah LOPEZ, ATTENDING Attending Clinician Unavailab Pearl Petersen Attending Clinician Unavailjas Noble RN, Tashia Rae Attending Clinician Unavailab miah Last OPERATING SYSTEM PROGRAMMER, Lily Hummel Attending Clinician [phone] Maryellen PICKERING, Lydia Hilton Attending Clinician [phone] Doctor Unassigned, [place] Attending Clinician U raoulailisha HEREDIA, [place] Attending Clinician + [phone] LIBERTY CAMP Attending Clinician Unavailable Wiliam KIMP, Antonia Attending Clinician + [phone] Dagoberto SALESPERSON HANDBAGS, Kassidy Cagle Attending Clinician [phone] Rajan PICKERING, Elina Pandey Attending Clinici an KASSIDY ARENAS Attending Clinician Unavailab REJI Bose Attending Clinician Unavailable Ivet PICKERING, Aiden Conde Attending Clinician [phone] SOSA ADAMES Attending Clinician Unavailable Sosa Adames MD Attending Clinician [phone] Santiago COLE, Sandra Hilton Attending Clinician Unavaila Ashley Schafer DO Attending Clinician + [phone] Orquidea PICKERING, Mike Jaffe Attending Clinician [phone] Shahnaz MIRELES, Sujata Attending Clinician SUZY URIOSTEGUI Admitting Clinician Unavailable [place] KHAN Admitting Clinician Unavailable Brittnee Ramirez Admitting Clinician UnavailElina Chavez Admitting Clinician Unavail able PHILL ROMAN Admitting Clinician UnavailPhill Garnett MD Admitting Clinician [phone] Luis Burciaga Admitting Clinician UnavailSuzy Malcolm MD Admitting Clinician [phone] Emily Artis Admitting Clinician UnavailANTONIA Samaniego Admitting Clinician Unavailable Effie Solitario Admitting Clinician Unaalondra ilisha Physician, No Primary or Family Admitting Clinic lizzeth Unavailable Dottie Chavez Admitting Clinician UnavailNy Frederick MD Admitting Clinician [phone] Pearl Chavez Admitting Clinician UnavailSOSA Bae Admitting Clinician Unavailable Payers Payer Name Policy Type Policy Number Effective Date Expirati on Date Source [facility] [id number] 2023 00:00:[address] [facility] [id number] 00:00:00 [facility] [id number] 2023 00:00:00 Problems Condition Name Condition Details Condition Category Status Onset Date Resolution Date Last Treatment Date Treating Clinician Comments Source Acute appendicit is Acute appendicit is Disease Active 2022-07 0-15 00:00: 00 [facility] Anxiety Anxiety Disease Active [facility] Depression Depression Disease Active [facility] Allergies, Adverse Reactions, Alerts Allergy Name Allergy Type Status Severity Reaction(s) Onset Date Inactive Date Treating Clinician Comments Source MARCUS ACID- THROAT SWELLING DA Active SV 08-03 00:00: 00 [facility] No Known Allergie s DA Active U 11-23 00:00: 00 [facility] No Known Allergie s DA Active U 11-23 00:00: 00 [facility] MALIC ACID DA Active SV TONGUE SWELLING, THROAT CLOSING 12-24 00:00: 00 [facility] Malic Acid Drug Allergy Active Swelling 12-24 [...] Date Quantity Comments Source ASSERTION 2022-02-27 00:00:00 [facility] Alcohol intake 2023-05-03 00:00:00 2023-05-03 00:00:00 Ex-drinker (finding) [facility] Exposure to SARS-CoV-2 (event) 2022-10-07 00:00:00 2022-10-17 15:17:00 Not sure [facility] History of Social function 2022-02-25 00:00:00 2022-02-25 00:00:00 [facility] Tobacco use and exposure 2022-02-25 00:00:00 2022-02-25 00:00:00 Smokeless tobacco non-user [facility] Sex Assigned At 2002 00:00:00 2000 00:00:00 [facility] Smoking Status Start Date Stop Date Source Never smoked tobacco [facility] Medications Ordered Medication Name Filled Medication Name Start Date Stop Date Current Medication? Ordering Clinician Indication Dosage Frequency Signature (SIG) Comments Components Source ibuprofen (IBU) tablet 400 mg 2022-07 15:00: 00 Yes 400mg 400 mg, Oral, Q8H, First dose on 05/03/23 at 1000, Until Discontinu ed, Routine [facility] SERTraline 25 mg tablet 2022-07 12:24: 34 Yes 25mg Take 1 tablet by mouth in the morning. [facility] ketorolac (TORADOL) injection 30 mg 2022-07 04:00: 00 05-03 03:38 :00 No 30mg 30 mg, Slow IV Push, ONCE, 1 dose, On 05/02/23 at 2300, Routine [facility] ibuprofen 400 mg tablet 2022-07 00:00: 00 05-11 04:59 :00 No [id number] 400mg Take 1 tablet by mouth every [...] at 1700, Until Discontinu ed, Routine [facility] lactated ringers IV infusion 1,000 mL 2022-07 17:15: 00 Yes 1000mL at 100 mL/hr, 1,000 mL, IV Infusion, CONTINUOUS , Starting on Wed05/02/23 at 1215, Until Discontinu ed, Routine, PACU [facility] HYDROcodone -acetaminop hen (NORCO 5) 5-325 mg tablet 1 tablet 2022-07 17:15: 00 05-02 17:48 :00 No 1{tbl} 1 tablet, Oral, ONCE, 1 dose, On Wed05/02/23 at 1215, Routine, PACU [facility] FENTanyl PF (SUBLIMAZE (PF)) injection 25 mcg 2022-07 17:13: 49 05-02 18:23 :47 No 25ug 25 mcg, Slow IV Push, Q5MIN PRN, 4 doses, Starting on Wed05/02/23 at 1213, Until [place] 05/02/23 at 1323, Routine, Pain (scale 4-6), PACU [facility] HYDROcodone -acetaminop hen (NORCO 5) 5-325 mg tablet 1 tablet 2022-07 16:58: 20 Yes 1{tbl} 1 tablet, Oral, Q4HPRN, Starting on Wed05/02/23 at 1158, Until Discontinu ed, Routine, Pain (scale 4-6) [facility] sodium chloride 0.9 % irrigation solution 2022-07 16:49: 00 05-02 17:12 :46 No PRN, Starting on Wed05/02/23 at 1149, Until Wed05/02/23 at 1212, Intra-op [facility] bupivacaine (preserv free) (SENSORCAIN E MPF) [...] 2020-07 00:00: 00 05-02 00:00 :00 No [id number] SPRAY 1 SPRAY INTO EACH NOSTRIL EVERY DAY [facility] EPINEPHrine 0.3 mg/0.3 mL injection 2019-07 00:00: 00 Yes [id number] INJECT 0.3 ML BY INTRAMUSCU LAR ROUTE ONCE NOW FOR 1 DOSE. [facility] Immunizations Ordered Immunization Name Filled Immunization Name Date Status Comments Source DTP 2023-05-02 11:24:00 Completed [facility] HIB 3 Dose Schedule 2023-05-02 11:24:00 Completed [facility] HEPATITIS A 2023-05-02 11:24:00 Completed [facility] Hep B, Adol or Pedi Dosage 2023-05-02 11:24:00 Completed [facility] MMR 2023-05-02 11:24:00 Completed [facility] Polio (IPV/OPV) 2023-05-02 11:24:00 Completed [facility] Meningococcal Polysaccharide (groups A, C, Y and W-135) conjugate vaccine (MCV4P) 2023-05-02 11:24:00 Completed [facility] Pneumococcal 7 Conjugate, PCV7 (Prevnar7) 2023-05-02 11:24:00 Completed [facility] DTP 2023-05-02 03:19:00 Completed [facility] HIB 3 Dose Schedule 2023-05-02 03:19:00 Completed [facility] HEPATITIS A 2023-05-02 03:19:00 Completed [facility] Hep B, Adol or Pedi Dosage 2023-05-02 03:19:00 Completed [facility] MMR 2023-05-02 03:19:00 Completed [facility] Polio (IPV/OPV) 2023-05-02 03:19:00 Completed [facility] Meningococcal Polysaccharide (groups A, C, Y and W-135) conjugate vaccine (MCV4P) 2023-05-02 03:19:00 Completed [facility] Pneumococcal 7 Conjugate, PCV7 (Prevnar7) 2023-05-02 03:19:00 Completed [facility] Meningococcal Polysaccharide (groups A, C, Y and W-135) conjugate vaccine (MCV4P) 2019-02-23 00:00:00 Completed [facility] Meningococcal Polysaccharide (groups A, C, Y and W-135) conjugate vaccine (MCV4P) 2019-02-23 00:00:00 Completed [facility] DTP 2005-01-21 00:00:00 Completed [facility] HIB 3 Dose Schedule 2005-01-21 00:00:00 Completed [facility] HEPATITIS A 2005-01-21 00:00:00 Completed [facility] Pneumococcal 7 Conjugate, PCV7 (Prevnar7) 2005-01-21 00:00:00 Completed [facility] DTP 2005-01-21 00:00:00 Completed [facility] HIB 3 Dose Schedule 2005-01-21 00:00:00 Completed [facility] HEPATITIS A 2005-01-21 00:00:00 Completed [facility] Pneumococcal 7 Conjugate, PCV7 (Prevnar7) 2005-01-21 00:00:00 Completed [facility] MMR 2003-12-25 00:00:00 Completed [facility] Polio (IPV/OPV) 2003-12-25 00:00:00 Completed [facility] Pneumococcal 7 Conjugate, PCV7 (Prevnar7) 2003-12-25 00:00:00 Completed [facility] MMR 2003-12-25 00:00:00 Completed [facility] Polio (IPV/OPV) 2003-12-25 00:00:00 Completed [facility] Pneumococcal 7 Conjugate, PCV7 (Prevnar7) 2003-12-25 00:00:00 Completed [facility] DTP 2003-06-19 00:00:00 Completed [facility] HIB 3 Dose Schedule 2003-06-19 00:00:00 Completed [facility] Hep B, Adol or Pedi Dosage 2003-06-19 00:00:00 Completed [facility] Polio (IPV/OPV) 2003-06-19 00:00:00 Completed [facility] DTP 2003-06-19 00:00:00 Completed [facility] HIB 3 Dose Schedule 2003-06-19 00:00:00 Completed [facility] Hep B, Adol or Pedi Dosage 2003-06-19 00:00:00 Completed [facility] Polio (IPV/OPV) 2003-06-19 00:00:00 Completed [facility] Hep B, Adol or Pedi Dosage 2002 00:00:00 Completed [facility] Hep B, Adol or Pedi Dosage 2002 00:00:00 Completed [facility] Vital Signs Vital Name Observation Time Observation Value Comments S ource Systolic blood pressure 2023-05-03 12:17:00 101 mm[Hg] [facility] Diastolic blood pressure 2023-05-03 12:17:00 59 mm[Hg] [facility] Heart rate 2023-05-03 12:17:00 68 /min [facility] Body temperature 2023-05-03 12:17:00 36.22 [place] [facility] Respiratory rate 2023-05-03 12:17:00 18 /min [facility] Oxygen saturation in Arterial blood by Pulse oximetry 2023-05-03 12:17:00 96 /min [facility] Body weight 2023-05-03 08:19:00 70.126 kg [facility] BMI 2023-05-03 08:19:00 28.28 kg/m2 [facility] Body height 2023-05-02 08:25:00 157.5 cm [facility] Systolic blood pressure 2023-05-02 18:25:00 97 mm[Hg] [facility] Diastolic blood pressure 2023-05-02 18:25:00 60 mm[Hg] [facility] Heart rate 2023-05-02 18:25:00 59 /min Unive [facility] Body temperature 2023-05-02 18:25:00 36.11 [place] [facility] Respiratory rate 2023-05-02 18:25:00 18 /min [facility] Oxygen saturation in Arterial blood by Pulse oximetry 2023-05-02 18:25:00 100 /min [facility] Body height 2023-05-02 08:25:00 157.5 cm [facility] Body weight 2023-05-02 08:25:00 69.037 kg [facility] BMI 2023-05-02 08:25:00 28.28 kg/m2 [facility] Systolic blood pressure 2022-10-17 20:18:00 99 mm[Hg] [facility] Diastolic blood pressure 2022-10-17 20:18:00 63 mm[Hg] [facility] Body temperature 2022-10-17 20:18:00 36.78 [place] [facility] Respiratory rate 2022-10-17 20:18:00 16 /min [facility] Heart rate 2022-10-17 19:56:00 92 /min Unive [facility] Body height 2022-10-17 19:56:00 157.5 cm [facility] Body weight 2022-10-17 19:56:00 71.668 kg [facility] BMI 2022-10-17 19:56:00 28.90 kg/m2 [facility] Oxygen saturation in Arterial blood by Pulse oximetry 2022-10-17 19:56:00 99 /min [facility] Procedures Procedure Date / Time Performed Performing Clinician Source CBC WITH DIFF 2023-05-03 11:31:00 Celso [facility] CBC WITH DIFF 2023-05-03 11:31:00 Celso [facility] LAPAROSCOPIC APPENDECTOMY 2023-05-02 15:50:00 Miles, [facility] LAPAROSCOPIC APPENDECTOMY 2023-05-02 15:50:00 Miles, [facility] POCT TEST 2023-05-02 15:31:00 Miles, [facility] POCT TEST 2023-05-02 15:31:00 Miles, [facility] MAGNESIUM 2023-05-02 10:15:00 Phill Roman [facility] HEPATIC FUNCTION PANEL (01308) (ALB,T.PRO,BILI T,BU/BC,ALT,AST,ALK PHOS) 2023-05-02 10:15:00 Phill Roman [facility] BASIC METABOLIC PANEL (NA, K, CL, CO2, GLUCOSE, BUN, CREATININE, CA) 2023-05-02 10:15:00 Phill Roman [facility] CBC WITH DIFF 2023-05-02 10:15:00 [facility] 2023-05-02 10:15:00 Phill Roman [facility] HEPATIC FUNCTION PANEL (11321) (ALB,T.PRO,BILI T,BU/BC,ALT,AST,ALK PHOS) 2023-05-02 10:15:00 Phill Roman [facility] BASIC METABOLIC PANEL (NA, K, CL, CO2, GLUCOSE, BUN, CREATININE, CA) 2023-05-02 10:15:00 Phill Roman [facility] CBC WITH DIFF 2023-05-02 10:15:00 [facility] [id number] 2022-10-31 00:00:00 MAX[facility] [id number] 2022-10-30 00:00:00 [facility] [id number] 2021-03-26 00:00:00 MAXBA [facility] [id number] 2021-03-26 00:00:00 [facility] Encounters Start Date/Time End Date/Time Encounter Type Admission Type Attending Clinicians Care Facility Care Department Encounter ID Source 2022-10-17 17:56:29 Outpatient X [facility] [id number] [facility] 2021-05-19 04:10:53 Outpatient X [facility] [id number] [facility] 2021-05-19 04:10:48 Emergency [facility] [id number] [facility] 2021-05-18 12:59:52 Emergency [facility] [id number] [facility] 2021-05-18 03:01:47 Emergency [facility] [id number] [facility] 2020-11-23 00:57:29 Inpatient Brittnee Ramirez [facility] HCACL [id number] [facility] 2020-10-05 01:43:54 Inpatient HCACL HC[facility]L [id number] [facility] 2020-08-22 20:18:00 Inpatient HCACL KAELA [id number] [facility] 2020-02-15 22:49:00 Inpatient HCACL KAELA [id number] [facility] 2023-08-23 13:00:00 2023-08-23 13:00:00 Outpatient MADHAVI MCNAIR [facility] [id number] [facility] 2023-05-24 13:00:00 2023-05-24 13:00:00 Outpatient MERT HOUSE [place] [facility] [id number] [facility] 2023-05-02 03:19:00 2023-05-03 12:20:00 Outpatient U PHILL ROMAN [facility] OLAYINKA [id number] [facility] 2023-05-02 03:19:00 2023-05-03 12:20:00 Hospital Encounter Phill Roman. [facility] [id number] 350.1.13.10 4.2.7.2.686 [id number] [facility] 2023-05-02 11:24:00 2023-05-02 13:33:00 Surgery Mert Miles [facility]GICAL AMELIA [id number] 350.1.13.10 4.2.7.2.686 [id number] [facility] 2022-10-30 19:17:00 2022-11-02 18:53:00 Inpatient EL Roelashleigh, Luis HCACL OBPP [id number] [facility] 2022-10-17 14:59:00 2022-10-17 17:00:00 Outpatient X GIOVANA SUZY [facility] [id number] [facility] 2022-10-17 14:59:00 2022-10-17 17:00:00 [facility] [id number] 350.1.13.10 4.2.7.2.686 [id number] [facility] 2022-09-26 22:39:00 2022-09-27 17:00:00 Inpatient EM Maximashleigh, Luis HCACL OBANTE [id number] [facility] 2022-09-07 23:59:00 2022-09-14 10:45:00 Inpatient EM Maximashleigh, Luis HCACL OBANTE [id number] [facility] 2022-08-03 15:04:00 2022-08-03 16:59:00 Emergency EM Effie Ramsay HCACL OLGA [id number] [facility] 2022-03-20 14:10:00 2022-03-20 14:10:00 Outpatient ANTONIA CAPPS [facility] [id number] [facility] 2022-03-20 00:00:00 2022-03-20 00:00:00 Telephone Antonia Pike [facility] 1.114 350.1.13.10 4.2.7.2.686 [id number] [facility] 2022-03-16 14:10:00 2022-03-16 14:10:00 Outpatient ANTONIA CAPPS [facility] [id number] [facility] 2022-03-13 13:30:00 2022-03-13 13:30:00 Outpatient ANTONIA CAPPS [facility] [id number] [facility] 2022-03-13 11:10:00 2022-03-13 11:10:00 Outpatient ANTONIA CAPPS [facility] [id number] [facility] 2022-03-06 15:06:00 2022-03-06 16:12:00 Emergency EM Darshanlary Ghanshyam HCACL AERS [id number] [facility] 2022-03-04 00:00:00 2022-03-04 00:00:00 Telephone Antonia Pike [facility] 1..114 350.1.13.10 4.2.7.2.686 [id number] [facility] 2022-03-03 00:00:00 2022-03-03 00:00:00 Telephone Antonia Pike [facility] 1..114 350.1.13.10 4.2.7.2.686 [id number] [facility] 2022-03-02 17:43:24 2022-03-02 23:59:00 Outpatient R ANTONIA PIKE [facility] [id number] [facility] 2022-03-02 17:43:24 2022-03-02 23:59:00 Outpatient R ANTONIA PIKE [facility] [id number] [facility] 2022-03-02 17:30:00 2022-03-02 23:59:00 Hospital Encounter Antonia Pike [facility] 1.114 350.1.13.10 4.2.7.2.686 [id number] [facility] 2022-02-26 14:50:00 2022-02-26 15:10:00 Nurse Visit Nurse, Frederick Miller [facility] 1.114 350.1.13.10 4.2.7.2.686 [id number] [facility] 2022-02-26 14:50:00 2022-02-26 14:50:00 Outpatient FREDERICK CORRAL [facility] [id number] [facility] 2022-02-25 14:45:00 2022-02-25 23:59:00 Outpatient R PIKEANTONIA ASHER [facility] [id number] [facility] 2022-02-25 14:45:00 2022-02-25 23:59:00 Hospital Encounter Antonia Pike [facility] 1.114 350.1.13.10 4.2.7.2.686 [id number] [facility] 2022-02-25 13:50:00 2022-02-25 15:29:57 Outpatient R ANTONIA PIKE [facility] [id number] [facility] 2022-02-25 13:50:00 2022-02-25 15:29:57 Office Visit Antonia Pike [facility] 1.2.840.114 350.1.13.10 4.2.7.2.686 [id number] [facility] 2022-02-23 15:50:00 2022-02-23 15:50:00 Outpatient R ANTONIA PIKE [facility] [id number] [facility] 2022-02-12 21:31:00 2022-02-12 22:34:00 Emergency X DEBRA [facility] E[facility] [id number] [facility] 2022-02-12 21:31:00 2022-02-12 22:34:00 Emergency Debra [facility] 1..114 350.1.13.10 4.2.7.2.686 [id number] [facility] 2021-11-11 00:16:00 2021-11-11 00:55:00 Emergency EM Kishor Bishop HCACL AERS [id number] [facility] 2021-11-04 15:30:00 2021-11-04 15:30:00 Outpatient R ELINA ROME [facility] [id number] [facility] 2021-08-08 22:06:00 2021-08-08 22:30:00 Emergency EM Ghanshyam Chavez HCACL AERS [id number] [facility] 2021-06-13 00:00:00 2021-06-13 00:00:00 Refill Madhavi Roman [facility] 1.114 350.1.13.10 4.2.7.2.686 [id number] [facility] 2021-05-12 13:41:54 2021-05-12 14:13:40 Office Visit Madhavi Roman [facility] 1.114 350.1.13.10 4.2.7.2.686 [id number] [facility] 2021-05-12 13:30:00 2021-05-12 13:30:00 Outpatient MADHAVI MCNAIR [id number] [facility] 2021-03-25 14:56:00 2021-03-28 15:32:00 Inpatient EL Luis Burciaga HCACL OBPP [id number] [facility] 2021-03-12 21:07:00 2021-03-13 01:05:00 Emergency EM Effie Solitario [facility]ACL OLGA [id number] [facility] 2021-03-01 05:33:00 2021-03-01 09:00:00 Emergency EM Luis Burciaga [facility]ACL OLGA [id number] [facility] 2021-02-17 15:17:00 2021-02-17 16:47:00 Emergency EM Effie Solitario [facility] OLGA [id number] [facility] 2021-02-12 19:14:00 2021-02-12 22:29:00 Emergency EM Effie Solitario [facility] OLGA [id number] [facility] 2021-01-29 02:30:00 2021-01-29 03:50:00 Emergency EM Dottie Chavez [facility]ACL OLGA [id number] [facility] 2021-01-13 01:18:00 2021-01-13 02:30:00 Emergency CacNathalia de la cruz Tsering Khan [facility] [id number] 350.1.13.10 4.2.7.2.686 [id number] 2021-01-13 01:18:00 2021-01-13 02:30:00 Emergency CacNathalia de la cruz Bill [facility] 1.2.840.114 350.1.13.10 4.2.7.2.686 [id number] [facility] 2021-01-11 17:51:24 2021-01-11 18:25:45 Urgent Care Aneta Aguayo [facility] 1..114 350.1.13.10 4.2.7.2.686 [id number] 2021-01-11 17:51:24 2021-01-11 18:25:45 Urgent Care Aneta Aguayo Vilma Unknown, Attending [facility] 1.114 350.1.13.10 4.2.7.2.686 [id number] [facility] 2021-01-11 18:00:00 2021-01-11 18:00:00 Outpatient R UNKNOWN, ATTENDING [facility] [id number] [facility] 2020-12-25 15:08:00 2020-12-25 18:26:00 Emergency EM Pearl Chavez [facility] [id number] [facility] 2020-11-23 00:02:00 2020-11-23 02:58:00 Emergency EM Brittnee Ramirez [facility] [id number] [facility] 2020-11-01 00:00:00 2020-11-01 00:00:00 Letter (Out) [facility] 1.0.114 350.1.13.10 4.2.7.2.686 [id number] 2020-11-01 00:00:00 2020-11-01 00:00:00 [facility] 1.0.114 350.1.13.10 4.2.7.2.686 [id number] [facility] 2020-10-30 22:11:00 2020-10-31 00:46:00 Emergency Lily Last [facility] 1.840.114 350.1.13.10 4.2.7.2.686 [id number] 2020-10-30 22:11:00 2020-10-31 00:46:00 Emergency Lily Last [facility] 1.2.840.114 350.1.13.10 4.2.7.2.686 [id number] [facility] 2020-10-26 18:33:25 2020-10-26 19:03:11 Urgent Care Aneta Aguayo [facility] 1.2840.114 350.1.13.10 4.2.7.2.686 [id number] 370 [id number] 2020-10-26 18:33:25 2020-10-26 19:03:11 Urgent Care Aneta Aguayo Unknown, Attending Marisol [facility] 1.2840.114 350.1.13.10 4.2.7.2.686 [id number] [facility] 2020-10-26 19:00:00 2020-10-26 19:00:00 Outpatient R UNKNOWN, ATTENDING [facility] [id number] [facility] 2020-09-18 23:47:00 2020-09-19 01:47:00 Emergency Lydia Bojorquez [facility] 1.2840.114 350.1.13.10 4.2.7.2.686 [id number] 084 [id number] 2020-09-18 23:47:00 2020-09-19 01:47:00 Emergency Lydia Bojorquez [facility] 1.2840.114 350.1.13.10 4.2.7.2.686 [id number] 084 [id number] [facility] 2020-09-18 00:00:00 2020-09-18 00:00:00 Orders Only Doctor Unassigned, [place] [facility] 1.2.840.114 350.1.13.10 4.2.7.2.686 [id number] [id number] 2020-09-18 00:00:00 2020-09-18 00:00:00 Orders Only Doctor Unassigned, [place] [facility] 1.2.840.114 350.1.13.10 4.2.7.2.686 [id number] [id number] [facility] 2020-08-22 15:52:31 2020-08-22 16:12:31 Office Visit Madhavi Roman [facility] 1.2.840.114 350.1.13.10 4.2.7.2.686 [id number] 2020-08-22 15:52:31 2020-08-22 16:12:31 Office Visit Madhavi Roman [facility] 1.2.840.114 350.1.13.10 4.2.7.2.686 [id number] [facility] 2020-08-22 16:00:00 2020-08-22 16:00:00 Outpatient MADHAVI MCNAIR [facility] [id number] [facility] 2020-08-22 13:40:00 2020-08-22 13:40:00 Outpatient MADHAVI MCNAIR [facility] [id number] [facility] 2020-08-13 00:00:00 2020-08-13 00:00:00 Telephone [facility]ty [facility] 1.2.840.114 350.1.13.10 4.2.7.2.686 [id number] 225 [id number] [facility] 2020-08-09 00:00:00 2020-08-09 00:00:00 Telephone [facility] 1.2.840.114 350.1.13.10 4.2.7.2.686 [id number] [facility] 2020-08-09 00:00:00 2020-08-09 00:00:00 Telephone [facility] 1..114 350.1.13.10 4.2.7.2.686 [id number] 370 [id number] [facility] 2020-08-08 14:46:51 2020-08-08 16:51:17 Office Visit [facility] 1..114 350.1.13.10 4.2.7.2.686 [id number] 225 [id number] [facility] 2020-08-08 15:00:00 2020-08-08 15:00:00 Outpatient LIBERTY TOMLINSON [facility] [id number] [facility] 2020-07-03 00:00:00 2020-07-03 00:00:00 Orders Only Doctor Unassigned, [place] [facility] 1..114 350.1.13.10 4.2.7.2.686 [id number] [id number] [facility] 2020-06-17 13:35:31 2020-06-17 14:15:17 Office Visit Antonia Swain [facility] 1..114 350.1.13.10 4.2.7.2.686 [id number] [facility] 2020-06-17 13:40:00 2020-06-17 13:40:00 Outpatient ELINA FORMAN [facility] [id number] [facility] 2020-05-18 00:00:00 2020-05-18 00:00:00 Kassidy Morris [facility] 1.114 350.1.13.10 4.2.7.2.686 [id number] 225 [id number] [facility] 2020-05-14 00:00:00 2020-05-14 00:00:00 Telephone Elina Rome [facility] 1..114 350.1.13.10 4.2.7.2.686 [id number] 225 [id number] [facility] 2020-05-06 00:00:00 2020-05-06 00:00:00 Telephone Elina Rome [facility] 1..114 350.1.13.10 4.2.7.2.686 [id number] 225 [id number] [facility] 2020-04-26 15:36:43 2020-04-26 15:56:43 Office Visit Kassidy Arenas [facility] 1..114 350.1.13.10 4.2.7.2.686 [id number] 225 [id number] [facility] 2020-04-26 15:40:00 2020-04-26 15:40:00 Outpatient KASSIDY BOONE [facility] [id number] [facility] 2020-04-15 00:00:00 2020-04-15 00:00:00 [facility] 1.84.114 350.1.13.10 4.2.7.2.686 [id number] 225 [id number] [facility] 2020-01-03 14:40:00 2020-01-03 14:40:00 Outpatient REJI EVANS [facility] [id number] [facility] 2019-10-27 00:00:00 2019-10-27 00:00:00 Telephone Aidne Cooney [facility] 1..114 350.1.13.10 4.2.7.2.686 [id number] 225 [id number] [facility] 2019-10-18 23:49:28 2019-10-19 02:20:00 Emergency X SOSA ADAMES [facility] ERT [id number] [facility] 2019-10-18 23:49:28 2019-10-19 02:20:00 Emergency [facility] 1.2.840.114 350.1.13.10 4.2.7.2.686 [id number] [facility] 2019-10-18 00:00:00 2019-10-18 00:00:00 Nurse Triage Sandra Henderson [facility] 1.2.840.114 350.1.13.10 4.2.7.2.686 [id number] [facility] 2019-10-09 00:00:00 2019-10-09 00:00:00 Telephone Aiden Cooney [facility] 1.2.840.114 350.1.13.10 4.2.7.2.686 [id number] 225 [id number] [facility] 2019-09-21 13:27:07 2019-09-21 17:09:32 Office Visit [place] [facility] 1.2.840.114 350.1.13.10 4.2.7.2.686 [id number] [facility] 2019-09-21 13:40:00 2019-09-21 13:40:00 Outpatient R LIBERTY CAMP [facility] [id number] [facility] 2019-08-30 15:01:37 2019-08-30 15:11:37 Office Visit Antonia Pike [facility] 1.2.840.114 350.1.13.10 4.2.7.2.686 [id number] 225 [id number] [facility] 2019-08-22 15:33:37 2019-08-22 15:43:37 Office Visit Aiden Cooney [facility] 1.2.840.114 350.1.13.10 4.2.7.2.686 [id number] [facility] 2019-08-21 09:14:31 2019-08-21 10:35:00 Emergency Ashley Avendano [facility] 1.2.840.114 350.1.13.10 4.2.7.2.686 [id number] 084 [id number] [facility] 2019-08-10 11:01:47 2019-08-10 11:21:47 Nurse Visit NurseOsvaldo Maria P Alvin [facility] 1.2.840.114 350.1.13.10 4.2.7.2.686 [id number] [facility] 2019-08-09 09:22:22 2019-08-09 12:41:52 Office Visit Antonia Pike [facility] 1.2.840.114 350.1.13.10 4.2.7.2.686 [id number] [facility] 2019-08-09 00:00:00 2019-08-09 00:00:00 Orders Only Antonia Pike [facility] 1.2.840.114 350.1.13.10 4.2.7.2.686 [id number] [id number] [facility] 2019-07-28 00:00:00 2019-07-28 00:00:00 Orders Only Doctor Unassigned, [place] [facility] 1.2.840.114 350.1.13.10 4.2.7.2.686 [id number] [facility] 2019-03-30 12:55:51 2019-03-30 13:15:51 Office Visit Kassidy Arenas [facility] 1.2.840.114 350.1.13.10 4.2.7.2.686 [id number] 225 [id number] [facility] 2019-03-29 00:00:00 2019-03-29 00:00:00 Telephone Elina Rome [facility] 1.2.840.114 350.1.13.10 4.2.7.2.686 [id number] 225 [id number] [facility] 2019-03-27 09:41:28 2019-03-27 09:51:28 Office Visit Aiden Cooney [facility] 1.2.840.114 350.1.13.10 4.2.7.2.686 [id number] 225 [id number] [facility] 2019-03-22 15:41:22 2019-03-22 23:59:00 Hospital Encounter Aiden Cooney [facility] 1.2.840.114 350.1.13.10 4.2.7.2.686 [id number] [facility] 2019-03-21 15:31:39 2019-03-22 09:26:38 Office Visit Mike Heard Syed Kaleem Alvin [facility] 1.2.840.114 350.1.13.10 4.2.7.2.686 [id number] 225 [id number] [facility] 2019-03-08 09:03:07 2019-03-08 09:13:07 Office Visit Aiden Cooney [facility] 1.2.840.114 350.1.13.10 4.2.7.2.686 [id number] 225 [id number] [facility] 2019-03-03 10:38:58 2019-03-03 11:09:50 Office Visit Aiden Cooney [facility] 1.2.840.114 350.1.13.10 4.2.7.2.686 [id number] [facility] 2019-02-10 15:44:39 2019-02-10 23:59:00 Hospital Encounter Sujata Carter [facility] 1.2.840.114 350.1.13.10 4.2.7.2.686 [id number] [facility] 2019-02-10 08:00:00 2019-02-10 15:43:00 Hospital Encounter Sujata Carter [facility] 1.2.840.114 350.1.13.10 4.2.7.2.686 [id number] 800 [id number] [facility] Results Test Description Test Time Test Comments Results Result Co mments Source [facility] WITH [id number] 11:43:20* Test Item Value Reference Range Interpretation [...] 32.0 g/dL 31.6-35.1 RDW-SD (test code = 92767-9) 47.8 fL 39.0-49.9 RDW-CV (test code = 788-0) 14.8 % 12.0-15.5 PLT (test code = 777-3) 282 See_Comment [Automated messa ge] The system which generated this result transmitted reference range: 166 - 358 10*3/?L. The reference range was not used to interpret this result as normal/abnormal. MPV (test code = 89888-4) 10.6 fL 9.5-12.9 NRBC/100 WBC (test code = 2452989763) 0.0 See_Comment [Automated me ssage] The system which generated this result transmitted reference range: 0.0 - 10.0 /100 WBCs. The reference range was not used to interpret this result as normal/abnormal. NRBC x10^3 (test code = 2794274006) See_Comment [Automated messa ge] The system which generated this result transmitted reference range: 10*3/?L. The reference range was not used to interpret this result as normal/abnormal. GRAN MAT (NEUT) % (test code = 770-8) 51.7 % IMM GRAN % (test code = 8035624194) 0.20 % LYMPH % (test code = 736-9) 40.7 % MONO % (test code = 5905-5) 6.6 % EOS % (test code = 713-8) 0.4 % BASO % (test code = 706-2) 0.4 % GRAN MAT x10^3(ANC) (test code = 6506773440) 4.76 10*3/uL 1.88-7.09 IMM GRAN x10^3 (test code = 3309359071) 0.00-0.06 LYMPH x10^3 (test code = 731-0) 3.76 10*3/uL 1.32-3.29 H MONO x10^3 (test code = 742-7) 0.61 10*3/uL 0.33-0.92 EOS x10^3 (test code = 711-2) 0.04 10*3/uL 0.03-0.39 BASO x10^3 (test code = 704-7) 0.04 10*3/uL 0.01-0.07 Lab Interpretation (test code = 47101-6) Abnormal [facility] [id number] 15:31:00* Test Item Value Reference Range Interpretation Comme nts POCT PREG (test code = 1605) Negative On board controls acceptable with C Line (test code = 3574) Yes POCT PREG LOT # (test code = 3575) POCT PREG TEST DATE ( test code = 3576) [id number] 15:31:[facility]* Test Item Value Reference Range Interpretation Comme nts POCT PREG (test code = 1605) Negative On board controls acceptable with C Line (test code = 3574) Yes POCT PREG LOT # (test code = 3575) POCT PREG TEST DATE ( test code = 3576) [facility] [id number] 11:21:25* Test Item Value Reference Range Interpretation Comme nts MAGNESIUM (test code = 0146577413) 2.2 mg/dL 1.7-2.4 Lab Interpretation (test cod e = 36479-5) Normal [facility] [id number] 11:21:25* Test Item Value Reference Range Interpretation Comme nts MAGNESIUM (test code = 2846116516) 2.2 mg/dL 1.7-2.4 Lab Interpretation (test cod e = 36856-5) Normal [facility] METABOLIC PANEL (NA, K, CL, CO2, GLUCOSE, BUN, CREATININE, CA)2023-05-02 11:21:05* Test Item Value Reference Range Interpretation Comme nts NA (test code = 6012524039) 138 mmol/L 135-145 K (test code = 6521725127) 3.8 mmol/L 3.5-5.0 CL (test code = 3309115872) 102 mmol/L 98-108 CO2 TOTAL (test code = 4010256957) 22 mmol/L 23-31 L AGAP (test code = 6682004927) 14 2-16 BUN (test code = 2400281911) 21 mg/dL 7-23 GLUCOSE (test code = 0578996702) 88 mg/dL 70-110 CREATININE (test code = 4660079057) 0.65 mg/dL 0.50-1.04 CALCIUM (test code = 3584273505) 9.3 mg/dL 8.6-10.6 eGFR (test code = 4910913342) 116.2 mL/min/1.73m2 RADHA (test code = RADHA) [...] imaging tests). Lab Interpretation (test code = 38011-2) [facility] (ALB,T.PRO,BILI T,BU/BC,ALT,AST,ALK PHOS)2023-05-02 11:21:05* Test Item Value Reference Range Interpretation Comme nts TOTAL BILI (test code = 5128890842) 0.3 mg/dL 0.1-1.1 BILI UNCON (test code = 4407734448) 0.2 mg/dL 0.1-1.1 BILI CONJ (test code = 0486122474) 0.0 mg/dL 0.0-0.3 T PROTEIN (test code = 6201596655) 7.6 g/dL 6.3-8.2 ALBUMIN (test code = 7131151551) 4.4 g/dL 3.5-5.0 ALK PHOS (test code = 1186565198) 72 U/L 34-122 ALTv (test code = 1742-6) 13 U/L 5-35 AST(SGOT) (test code = 7886015844) 17 U/L 13-40 Lab Interpretation (test cod e = 73230-2) Normal [facility] METABOLIC PANEL (NA, K, CL, CO2, GLUCOSE, BUN, CREATININE, CA)2023-05-02 11:21:05* Test Item Value Reference Range Interpretation Comme nts NA (test code = 8232366911) 138 mmol/L 135-145 K (test code = 3618049390) 3.8 mmol/L 3.5-5.0 CL (test code = 9529796209) 102 mmol/L 98-108 CO2 TOTAL (test code = 8891080304) 22 mmol/L 23-31 L AGAP (test code = 2154161665) 14 2-16 BUN (test code = 0484506770) 21 mg/dL 7-23 GLUCOSE (test code = 8162568009) 88 mg/dL 70-110 CREATININE (test code = 5695221067) 0.65 mg/dL 0.50-1.04 CALCIUM (test code = 5091995482) 9.3 mg/dL 8.6-10.6 eGFR (test code = 5480052317) 116.2 mL/min/1.73m2 RADHA (test code = RADHA) [...] imaging tests). Lab Interpretation (test code = 41412-3) [facility] (ALB,T.PRO,BILI T,BU/BC,ALT,AST,ALK PHOS)2023-05-02 11:21:05* Test Item Value Reference Range Interpretation Comme nts TOTAL BILI (test code = 6284959482) 0.3 mg/dL 0.1-1.1 BILI UNCON (test code = 2518949377) 0.2 mg/dL 0.1-1.1 BILI CONJ (test code = 1160699831) 0.0 mg/dL 0.0-0.3 T PROTEIN (test code = 9863016805) 7.6 g/dL 6.3-8.2 ALBUMIN (test code = 6621198143) 4.4 g/dL 3.5-5.0 ALK PHOS (test code = 6898575723) 72 U/L 34-122 ALTv (test code = 1742-6) 13 U/L 5-35 AST(SGOT) (test code = 5431331386) 17 U/L 13-40 Lab Interpretation (test cod e = 91691-7) [facility] Mtklkeuumghf6188-66-62 10:46:23* Test Item Value Reference Range Interpretation Comme nts WBC (test code = 6690-2) 7.54 See_Comment [Automated [employer]] The system which generated this result transmitted reference range: 4.30 - 11.10 10*3/?L. The reference range was not used to interpret this result as normal/abnormal. RBC (test code = 789-8) 4.05 See_Comment [Automated [employer]] The system which generated this result transmitted [...] 32.3 g/dL 31.6-35.1 RDW-SD (test code = 49952-3) 46.6 fL 39.0-49.9 RDW-CV (test code = 788-0) 14.7 % 12.0-15.5 PLT (test code = 777-3) 283 See_Comment [Automated messa ge] The system which generated this result transmitted reference range: 166 - 358 10*3/?L. The reference range was not used to interpret this result as normal/abnormal. MPV (test code = 24432-6) 10.5 fL 9.5-12.9 NRBC/100 WBC (test code = 7980960103) 0.0 See_Comment [Automated pic5 ssage] The system which generated this result transmitted reference range: 0.0 - 10.0 /100 WBCs. The reference range was not used to interpret this result as normal/abnormal. NRBC x10^3 (test code = 4649164090) See_Comment [Automated messa ge] The system which generated this result transmitted reference range: 10*3/?L. The reference range was not used to interpret this result as normal/abnormal. GRAN MAT (NEUT) % (test code = 770-8) 40.7 % IMM GRAN % (test code = 7426034457) 0.10 % LYMPH % (test code = 736-9) 48.4 % MONO % (test code = 5905-5) 8.8 % EOS % (test code = 713-8) 1.3 % BASO % (test code = 706-2) 0.7 % GRAN MAT x10^3(ANC) (test code = 7971113214) 3.07 10*3/uL 1.88-7.09 IMM GRAN x10^3 (test code = 8747274280) 0.00-0.06 LYMPH x10^3 (test code = 731-0) 3.65 10*3/uL 1.32-3.29 H MONO x10^3 (test code = 742-7) 0.66 10*3/uL 0.33-0.92 EOS x10^3 (test code = 711-2) 0.10 10*3/uL 0.03-0.39 BASO x10^3 (test code = 704-7) 0.05 10*3/uL 0.01-0.07 Lab Interpretation (test code = 49703-7) Abnormal [facility] with Haolmcwmyyju9951-99-99 10:46:23* Test Item Value Reference Range Interpretation [...] 32.3 g/dL 31.6-35.1 RDW-SD (test code = 23100-1) 46.6 fL 39.0-49.9 RDW-CV (test code = 788-0) 14.7 % 12.0-15.5 PLT (test code = 777-3) 283 See_Comment [Automated messa ge] The system which generated this result transmitted reference range: 166 - 358 10*3/?L. The reference range was not used to interpret this result as normal/abnormal. MPV (test code = 56924-2) 10.5 fL 9.5-12.9 NRBC/100 WBC (test code = 0365461657) 0.0 See_Comment [Automated me ssage] The system which generated this result transmitted reference range: 0.0 - 10.0 /100 WBCs. The reference range was not used to interpret this result as normal/abnormal. NRBC x10^3 (test code = 3110853309) See_Comment [Automated messa ge] The system which generated this result transmitted reference range: 10*3/?L. The reference range was not used to interpret this result as normal/abnormal. GRAN MAT (NEUT) % (test code = 770-8) 40.7 % IMM GRAN % (test code = 3575650439) 0.10 % LYMPH % (test code = 736-9) 48.4 % MONO % (test code = 5905-5) 8.8 % EOS % (test code = 713-8) 1.3 % BASO % (test code = 706-2) 0.7 % GRAN MAT x10^3(ANC) (test code = 0309371865) 3.07 10*3/uL 1.88-7.09 IMM GRAN x10^3 (test code = 1990446935) 0.00-0.06 LYMPH x10^3 (test code = 731-0) 3.65 10*3/uL 1.32-3.29 H MONO x10^3 (test code = 742-7) 0.66 10*3/uL 0.33-0.92 EOS x10^3 (test code = 711-2) 0.10 10*3/uL 0.03-0.39 BASO x10^3 (test code = 704-7) 0.05 10*3/uL 0.01-0.07 Lab Interpretation (test code = 83242-6) [facility]08[facility]* Test Item Value Reference Range Interpretation Comme nts SURGICAL (test code = SR) R UN DATE: 11/03/22 [place] - LAB PAGE 1 RUN TIME: 1409 Specimen Inquiry RUN USER: INTERFACE P ATIENT: LUIS EDMONDS LOC: [place] U #: [id number] AGE/SX: 21/F ROOM: [facility] RE10/30/22REG DR: Luis Burciaga MD : 02 BED: 1 DIS: 11/02/22 STATUS: DIS IN TLOC: SPEC #: [id number] RECD: 11/02/22 STATUS: GLENN REGreta #: [id number] SLOAN: 10/31/22- SUBM DR: Luis Burciaga MD ENTERED: 11/02/22 SP TYPE: SURGICAL OTHR DR: ORDERED: 99520, ANATOMIC SPEC PROCEDURES: 66591 (11/02/22) TISSUES: A. PLACENTA, THIRD TRIMESTER (28 + WEEKS) CLINICAL HISTORY SAME, DELIVERED FINAL DIAGNOSIS Placenta: Third trimester placenta with acute chorionitis, deciduitis; 713 g (expected arlz856 g); trivascular umbilical cord without significant inflammation.. [...] weighs 713 g. Technical component performed at [facility],[address] [place] [address], [place] [address] Unless gross only, the diagnosis is based [...] 11/03/22 1408 END OF REPORT CBC W/AUTO [id number] 07:54:00* Test Item Value Reference Range Interpretation [...] c ode = MDIFF) NO RAPID PLASMA [id number] 11:50:00* Test Item Value Reference Range Interpretation Comme nts RAPID PLASMA REAGIN (test co de = RPR) NONREACTIVE NONREACTIVE AG HEPATITIS B [id number] 11:50:00* Test Item Value Reference Range Interpretation Comme nts AG HEPATITIS B SURFACE (test code = HBSAG) NON REACTIVE INDEX NonReactive AB HIV 1 11:50:00* Test Item Value Reference Range Interpretation Comme nts AB HIV 1 2 (test code = GDB93OM) Nonreactive Nonreactive CBC W/AUTO [id number] 19:59:00* Test Item Value Reference Range Interpretation [...] c ode = MDIFF) NO AMNISURE (ROM) [id number] 18:12:00* Test Item Value Reference Range Interpretation Comme nts AMNISURE (ROM) TEST (test co de = AMNI) POSITIVE NEGATIVE A AMNISURE (ROM) [id number] 21:41:00* Test Item Value Reference Range Interpretation Comme nts AMNISURE (ROM) TEST (test co de = AMNI) NEGATIVE NEGATIVE [id number] 20:11:00* Test Item Value Reference Range Interpretation Comme nts FIBRONECTIN (test code = FFN) POSITIVE NEGATIVE A UA RFLX MICR CULT IF [id number] 20:11:00* Test Item Value Reference Range Interpretation [...] PainSpecimen Description: CLEAN CATCHDRUGS OF ABUSE SCREEN [id number] 20:10:00* Test Item Value Reference Range Interpretation [...] be used for non-medical purposes. - BIOPHYS [id number] 00:00:00 [facility] HA[facility]IR[facility]ame: BI EDMONDS : 2000 Sex: F Name: BI EDMNODS [facility] [place] : 2000 Age/S: 21 / F [address] [place] [address] Unit #: [id number] Loc: [place] [address] Phys: Zoila Gomez DO Acct: [id number] Dis Date: Status: REG ER PHONE #: [phone] Exam Date: 09/26/20222004 FAX #: [phone] Reason: decreased FM EXAMS: CPT CODE: [id number] US BIOPHYS PROF 09841 PROCEDURE INFORMATION: Exam: US Biophysical Profile Without [...] PAGE 1 Signed Report- US PREG AFTER [id number] 00:00:00 [facility] 2000 Sex: F Name: BI EDMONDS [facility] : 2000 Age/S: 21 / F [address] [place] [address] Unit #: [id number] Loc: [place] [address] Phys: Zoila Gomez DO Acct: [id number] Dis Date: Status: REG ER PHONE #: [phone] Exam Date: 09/26/20222004 FAX #: [phone] Reason: PTL EXAMS: CPT CODE: [id number] US PREG AFTER TRI 43970 PROCEDURE INFORMATION: Exam: US After First Trimester,Transabdominal [...] Signed Report (CONTINUED) Name: BI EDMONDS [facility] : 2000 Age/S: 21 / F [address] [place] [address] Unit #: [id number] Loc: [place] [address] Phys: Zoila Gomez DO Acct: [id number] Dis Date: Status: REG ER PHONE #: [phone] Exam Date: 09/26/20222004 FAX #: [phone] Reason: PTL EXAMS: CPT CODE: [id number] US PREG AFTER [id number] (Continued) movement: 2. breathin Amniotic fluid: 2 Total score 8/8 IMPRESSION: 1. Single viable intrauterine gestation in cephalic presentation. 2. Normal growth concordant with dates. 3. Normal biophysical profile. at 2117 Reported and signed by: Jeromy Wolfe M.D. CC: Zoila Gomez DO Technologist: Saturnino Fitch Trnscb Date/Time: 09/26/2022 (2116) [id number] Orig Print D/T: S: 09/26/2022 (2116) Probe: PAGE 2 Signed ReportAMNISURE (ROM) [id number] 14:39:00* Test Item Value Reference Range Interpretation Comme nts AMNISURE (ROM) TEST (test co de = AMNI) NEGATIVE NEGATIVE CHLAMYDIA GC DNA BY [id number] 13:07:00* Test Item Value Reference Range Interpretation Comme nts C. TRACHOMATIS DNA BY PCR (test code = CHLAMTDNA) Negative Negative N. GONORRHOEAE DNA BY PCR (test code = NGONORDNA) Negative Negative Performed At: [facility] [address] [id number] Marc Rosales MD Ph:[phone] UA RFLX MICR CULT IF [id number] 21:16:00* Test Item Value Reference Range Interpretation [...] culture: Suprapubic PainSpecimen Description: CLEAN CATCHRAPID PLASMA [id number] 11:04:00* Test Item Value Reference Range Interpretation Comme nts RAPID PLASMA REAGIN (test co de = RPR) NONREACTIVE NONREACTIVE AG HEPATITIS B [id number] 11:04:00* Test Item Value Reference Range Interpretation Comme nts AG HEPATITIS B SURFACE (test code = HBSAG) NON REACTIVE INDEX NonReactive AB HIV 1 11:04:00* Test Item Value Reference Range Interpretation Comme nts AB HIV 1 2 (test code = XCD91AQ) Nonreactive Nonreactive [id number] 08:05:00* Test Item Value Reference Range Interpretation Comme nts MAGNESIUM (test code = MAG) 4.22 mg/dL 1.80-2.40 HH CBC W/AUTO [id number] 00:08:00* Test Item Value Reference Range Interpretation [...] - US FET BIO PH IN W/O [id number] 00:00:00 [facility] [place]: LUIS EDMONDS : 2000 Sex: F Name: LUIS EDMONDS [facility] : 2000 Age/S: 21 / F [address] [place] [address] Unit #:[id number] Loc: [place] [address] Phys: Juany Carrillo MD Acct: [id number] Dis Date: Status: ADMIN PHONE #: [phone] Exam Date: 09/07/20222315 FAX #: [phone] Reason: IUP@29 wks; Leakingfluid; ROM plus positive EXAMS: CPT CODE: [id number] US FET BIO PH IN W/O NST 14609 PROCEDURE INFORMATION: Exam: US , Limited Exam [...] Signed Report (CONTINUED) Name: LUIS EDMONDS [facility] : 2000 Age/S: 21 / F [address] [place] [address] Unit #: [id number] Loc: [place] [address] Phys: Juany Carrillo MD Acct: [id number] Dis Date: Status: ADM IN PHONE #: [phone] Exam Date: 09/07/20222315 FAX #: [phone] Reason: IUP@29 wks; Leaking fluid; ROM plus positive EXAMS: CPT CODE: [id number] US FET BIO PH IN W/O NST 62407 (Continued) A limited transabdominal obstetrical ultrasound was [...] (0002) Probe: PAGE 2 Signed Report- US [id number] 00:00:00 [facility] 2000 Sex: F Name: LUIS EDMONDS [facility] [place] : 2000 Age/S: 21 / F [address] [place] [address] Blvd Unit #: [id number] Loc: [place] [address] Phys: Juany Carrillo MD Acct: [id number] Dis Date: Status: ADMIN PHONE #: [phone] Exam Date: 09/07/20225 FAX #: [phone] Reason: see US FET BIO PH IN W/O NST EXAMS: CPT CODE: [id number] US LTD 45833 PROCEDURE INFORMATION: Exam: US , Limited Exam [...] Signed Report (CONTINUED) Name: LUIS EDMONDS [facility] : 2000 Age/S: 21 / F [address] [place] [address] Unit #: [id number]: [place] [address] Phys: Juany Carrillo MD Acct: [id number] Dis Date: Status: ADM IN PHONE #: [phone] Exam Date: 09/07/2022 2315 FAX #: [phone] Reason: see US FET BIO PH IN W/O NST EXAMS: CPT CODE: [id number] US LTD 22569 (Continued) A limited transabdominal obstetrical ultrasound was [...] (1) Probe: PAGE 2 Signed ReportAMNISURE (ROM) [id number] 22:26:00* Test Item Value Reference Range Interpretation Comme nts AMNISURE (ROM) TEST (test co de = AMNI) POSITIVE NEGATIVE A UA RFLX MICR CULT IF [id number] 22:12:00* Test Item Value Reference Range Interpretation [...] for culture: Suprapubic PainSpecimen Description: CLEAN CATCHFETAL [id number] 16:47:00* Test Item Value Reference Range Interpretation Comme nts FIBRONECTIN (test code = FFN) NEGATIVE NEGATIVE URINALYSIS [id number] 16:34:00* Test Item Value Reference Range Interpretation [...] N UA BLOOD DIPSTICK (test code = KRUTIS) NEGATIVE NEGATIVE UA PH DIPSTICK (test code [...] SEEN - XR ANKLE 3 + V [id number] 00:00:00 [facility] LUIS ED[facility] : 2000 Sex: F FAX: Emily Mckoy MD [phone] [place]: [place] St: PRE FAX: Romeo Chavez Name: CATRACHO EDMONDSABELLE Marisol FSED : 2000 Age/S: 21/F [address] [facility] Unit #: [id number] Loc: [place] [address] Phys: Ghanshyam Chavez MD Acct: [id number] Dis Date: Status: PRE ER PHONE #: Exam Date: 03/06/2022 1600 FAX #: Reason: R ANKLE PAIN AFTER FALL EXAMS: CPT CODE: [id number] XR ANKLE 3 + V RT 45525 PROCEDURE INFORMATION: Exam: XR Right Ankle Exam [...] Romeo Chavez MD Technologist: Katerina Rosas RT(R)(CT) Trnarrd Date/Time/By: 03/06/2022 (8422) : By: KaneSBL Orig Print D/T: S: 03/06/2022 (9837) PAGE 1 Signed Report- XR FOOT 3 + V [id number] 00:00:00 [facility] [place]: LUIS EDMONDS : 2000 Sex: F FAX: Emily Mckoy MD [phone] [place]: [place] St: PRE FAX: Romeo Chavez Name: LUIS EDMONDS FSED : 2000 Age/S: 21/F [address] [facility] Unit #: [id number] Loc: [place] [address] Phys: Ghanshyam Chavez MD Acct: [id number] Dis Date: Status: PRE ER PHONE #: Exam Date: 03/06/2022 8184 FAX #: Reason: r foot injury EXAMS: CPT CODE: [id number] XR FOOT 3 + V RT 00673 PROCEDUREINFORMATION: Exam: XR Right Foot Exam date [...] assessment. IMPRESSION: No fractures or dislocation at 2200 Reported and signed by: Valeria Costello CC: Emily Artis MD; Ghanshyam Chavez MD Technologist: RT Valerie(R)(CT)Trnscrd Date/Time/By: 03/06/2022 (3420) : By: Kristian Orig Print D/T: S: 03/06/2022 (2486) PAGE 1 Signed ReportURINE HCG TRIAGE (ER ONLY)2021-11-11 08:40:00* Test Item Value Reference Range Interpretation Comme nts URINE HCG TRIAGE (ER ONLY) ( test code = HCGTRIAGE) NEGATIVE Negative Urine Test Result: NEGATIVEAre internal controls (presence of a control line & clear background) OK? YLot # of HCG Test Kit: [id number] Date of Kit: 02/15/23Test Performed by:Carlo Tinoco on: 11/11/21COMMENTS: NEGATIVEUA DIPSTICK [id number] 00:46:00* Test Item Value Reference Range Interpretation Comme nts UA GLUCOSE DIPSTIC POC (test code = GLUUP) NEGATIVE NEGATIVE UA BILIRUBIN DIPSTICK (test code = BILU) NEGATIVE NEGATIVE UA KETONE DIPSTICK POC (test code = KETUP) NEGATIVE NEGATIVE UA SPECIFIC GRAVITY (test code = SGU) 1.010 1.005-1.030 N UA BLOOD DIPSTIC POC (test code = BLUP) NEGATIVE NEGATIVE Performed by certified pantograph machine set up operator at [facility] UA PH DIPSTIC POC (test code = PHUP) 7 5.0-7.0 N UA PROTEIN DIPSTICK POC (test code = DPROUP) NEGATIVE NEGATIVE UA UROBILINIOGEN QUAL (test code = UROQL) NORMAL 0.2-1.0 UA NITRITE DIPSTICK POC (test code = NITUP) NEGATIVE Negative UA LEUKOCYTE ESTERASE W REFLEX (test code = LEUUR) Negative NEGATIVE SURGICAL PATH [id number] 13:13:00* Test Item Value Reference Range Interpretation Comme nts SURGICAL PATH SPECIMENS (test code = S) RUN DATE: 03/28/21 [place] - LAB PAGE 1 RUN TIME: 1313 Specimen Inquiry RUN USER: INTERFACE ARTEMIO ENT: LUIS EDMONDS LOC: [place] U #: [id number] AGE/SX: 20/F ROOM: [facility] RE03/25/21REG DR: Luis Burciaga MD : [birth year] BED: 1 DIS: STATUS: ADM IN TLOC: SPEC #: [id number] RECD: 03/27/21 STATUS: GLENN EVERETT #: [id number] SLOAN: 03/26/21- SUBM DR: Luis Burciaga MD ENTERED: 03/27/21 SP TYPE: SURG SPEC OTHR DR: ORDERED: GM LEVEL 5 CODES: [id number] - PLACENTA, NOS PROCEDURES: GM LEVEL 5 [...] 03/28/21 1313 END OF REPORT CBC W/AUTO [id number] 07:03:00* Test Item Value Reference Range Interpretation [...] ode = MDIFF) NO CORD VENOUS BLOOD [id number] 18:41:00* Test Item Value Reference Range Interpretation Comme [facility] CORD VENOUS PH (test code = [...] = O2SCV) 17 % CORD ARTERIAL BLOOD [id number] 18:40:00* Test Item Value Reference Range Interpretation Comme [facility] CORD BLOOD PH (test code = [...] O2S/C) 25 % 72-77 L RAPID PLASMA [id number] 10:40:00* Test Item Value Reference Range Interpretation Comme nts RAPID PLASMA REAGIN (test co de = RPR) NONREACTIVE NONREACTIVE AG HEPATITIS B [id number] 10:40:00* Test Item Value Reference Range Interpretation Comme nts AG HEPATITIS B SURFACE (test code = HBSAG) NON REACTIVE INDEX NonReactive AB HIV 1 10:40:00* Test Item Value Reference Range Interpretation Comme nts AB HIV 1 2 (test code = PYV46TF) Nonreactive Nonreactive COVID 19 Asymptomatic IH [id number] 20:20:00* Test Item Value Reference Range Interpretation [...] perform moderate, high or waivedcomplexity tests. URINALYSIS [id number] 18:48:00* Test Item Value Reference Range Interpretation [...] MUCU) TRACE /LPF NONE SEEN RAPID PLASMA [id number] 18:11:00* Test Item Value Reference Range Interpretation Comme nts RAPID PLASMA REAGIN (test code = RPR) NONREACTI VE AG HEPATITIS B [id number] 18:11:00* Test Item Value Reference Range Interpretation Comme nts AG HEPATITIS B SURFACE (test code = HBSAG) NON REACTIVE INDEX NonReactive AB HIV 1 18:11:00* Test Item Value Reference Range Interpretation Comme nts AB HIV 1 2 (test code = PEA76YZ) Nonreactive Nonreactive COMPREHENSIVE METABOLIC [id number] 17:45:00* Test Item Value Reference Range Interpretation [...] = ALKP) 153 IUnit/L 60-350 N URIC [id number] 17:45:00* Test Item Value Reference Range Interpretation Comme nts URIC ACID (test code = URIC) 4.0 mg/dL 2.6-7.2 N LACTIC DEHYDROGENASE(LDH)2021-03-25 17:45:00* Test Item Value Reference Range Interpretation Comme nts LACTIC DEHYDROGENASE(LDH) (t est code = LDH) 225 IUnits/L 84-246 N CBC W/AUTO [id number] 17:24:00* Test Item Value Reference Range Interpretation [...] (test c ode = MDIFF) CBC W/AUTO [id number] 17:24:00* Test Item Value Reference Range Interpretation [...] ode = IFF) NO - US BIOPHYS [id number] 00:00:00 [facility] : 2000 Sex: F Name: LUIS EDMONDS [facility] : 2000 Age/S: 20 / F [address] [place] [address] Unit #: [id number] Loc: [place] [address] Phys: Effie Solitario MD Acct: [id number] Dis Date: Status: REG ER PHONE #: [phone] Exam Date: 03/12/202141 FAX #: [phone] Reason: Possible SROM, please evaluate ISMA EXAMS: CPT CODE: [id number] US BIOPHYS PROF 86124 PROCEDURE INFORMATION: Exam: US Biophysical Profile With [...] co de = AMNI) NEGATIVE NEGATIVE URINALYSIS [id number] 21:48:00* Test Item Value Reference Range Interpretation [...] = MUCU) TRACE /LPF NONE SEEN URINALYSIS [id number] 07:00:00* Test Item Value Reference Range Interpretation [...] TRACE /LPF NONE SEEN - US BIOPHYS [id number] 00:00:00 [facility] : 2000 Sex: F Name: LUIS EDMONDS [facility] : 2000 Age/S: 20 / F [address] [place] [address] Unit #: [id number] Loc: [place] [address] Phys: Effie Solitario MD Acct: [id number] Dis Date: Status: REG ER PHONE #: [phone] Exam Date: 03/01/2021757 FAX #: [phone] Reason: decreased movements EXAMS: CPT CODE: [id number] US BIOPHYS PROF 75704 PROCEDURE INFORMATION: Exam: US F etal Biophysical [...] Probe: PAGE 1 Signed Report AMNISURE (ROM) [id number] 16:16:00* Test Item Value Reference Range Interpretation Comme nts AMNISURE (ROM) TEST (test co de = AMNI) NEGATIVE NEGATIVE [id number] 16:16:00* Test Item Value Reference Range Interpretation Comme nts FIBRONECTIN (test code = FFN) NEGATIVE NEGATIVE [id number] 20:50:00* Test Item Value Reference Range Interpretation Comme nts FIBRONECTIN (test code = FFN) NEGATIVE NEGATIVE URINALYSIS [id number] 20:32:00* Test Item Value Reference Range Interpretation [...] TRACE /LPF NONE SEEN - US BIOPHYS [id number] 00:00:00 [facility] : 2000 Sex: FName: LUIS EDMONDS [facility] : 2000 Age/S: 20 / F [address] [place] [address] Unit #:[id number] Loc: [place] [address] Phys: Effie Solitario MD Acct: [id number] Dis Date: Status: REG ER PHONE #: [phone] Exam Date: 02/12/20212122 FAX #: [phone] Reason: Decreased movements EXAMS: CPT CODE: [id number] US BIOPHYS PROF 02151 PROCEDURE INFORMATION: Exam: US F etal Biophysical [...] 1 Signed Report (CONTINUED) Name: LUIS EDMONDS [facility] [place] : 2000 Age/S: 20 / F [address] [place] [address] BlvdUnit #: [id number] Loc: [place] [address] Phys: Effie Solitario MD Acct: [id number] Dis Date: Status: REG ER PHONE #: [phone] Exam Date: 02/12/20212122 FAX #: [phone] Reason: Decreased movements EXAMS: CPT CODE: [id number] US BIOPHYS PROF 39823 <Continued> at 2121 Reported and signed by: Geovanny Hughes D.O. CC: Technologist: Yuki Ray RDMS(AB)(OB) Trnscb Date/Time: 02/12/2021 (2121) [email or web address] Orig Print D/T: S: 02/12/2021 (2148) Probe: PAGE 2 Signed Report URINALYSIS [id number] 03:25:00* Test Item Value Reference Range Interpretation [...] MUCU) TRACE /LPF NONE SEEN - US [id number] 17:34:00 [facility]: LUIS EDMONDS : 2000 Sex: F Name: LUIS EDMONDS [facility] [place] : 2000 Age/S: 20 / F [address] [place] [address] Unit #: [id number] Loc: [place] [address] Phys: Pearl Chavez Acct: [id number] Dis Date: Status: REGER PHONE #: [phone] Exam Date: 12/25/2020 172 FAX #: [phone] Reason: h/o low ISMA, unsureif PROM, translabial cervic EXAMS: CPT CODE: [id number] LTD 23825 LIMITED ULTRASOUND INDICATION: with history of low [...] 1 Signed Report (CONTINUED) Name: LUIS EDMONDS [facility] [place] : 2000 Age/S: 20 / F [address] [place] [address] Unit #: [id number] Loc: [place] [address] Phys: Pearl Chavez DO Acct: [id number] Dis Date: Status: REG ER PHONE #: [phone] ExamDate: 12/25/2020 172 FAX #: [phone] Reason: h/o low ISMA, unsure if PROM, translabial cervic EXAMS: CPT CODE: [id number] LTD 02609 <Continued> at 1734 Reported and signed by: Judah Izquierdo M.D. CC: Pearl Chavez DO Technologist: Merna Figueroa RDMS() Trnscb Date/Time: 12/25/2020 (173) [id number] Print D/T: S: 12/25/2020 (173) Probe: PAGE 2 Signed ReportAMNISURE (ROM) [id number] 17:14:00* Test Item Value Reference Range Interpretation Comme nts AMNISURE (ROM) TEST (test co de = AMNI) NEGATIVE NEGATIVE URINALYSIS [id number] 17:10:00* Test Item Value Reference Range Interpretation [...] /HPF NONE A DRUGS OF ABUSE SCREEN [id number] 17:07:00* Test Item Value Reference Range Interpretation [...] for non-medical purposes. - US PREG AFTER [id number] 02:47:00 [facility]FFMANName: LUIS EDMONDS : 2000 Sex: F Name: LUIS EDMONDS [facility] Madeline Coff[place] : 2000 Age/S: 19 / F [address] [place] [address] Blvd Unit #: [id number] Loc: [place] [address] Phys: Brittnee Ramirez MD Acct: [id number] Dis Date: Status: REGER PHONE #: [phone] Exam Date: 11/23/2020 014 FAX #: [phone] Reason: No PNC, bleeding, approximately 20 weeks EXAMS: CPT CODE: [id number] US PREG AFTER 1ST TRI 12619 EXAM: US, US PREG AFTER 1SR TRI: [...] Signed Report (CONTINUED) Name: LUIS EDMONDS [facility] : 2000 Age/S: 19 / F [address] [place] [address] Unit #: [id number] Loc: [place] [address] Phys: Brittnee Ramirez MD Acct: [id number] Dis Date: Status: REG ER PHONE #: [phone] Exam Date: 11/23/2020143 FAX #: [phone] Reason: No PNC, bleeding, approximately 20 weeks EXAMS: CPT CODE: [id number] US PREG AFTER TRI 11989 <Continued> seen. Cervical length is not visualized. [...] PAGE 2 Signed Report- US PREG AFTER [id number] 02:47:00[facility] : 2000 Sex: F Name: LUIS EDMONDS [facility] Madeline Coffman : 2000 Age/S: 19 / F [address] [place] [address] Blvd Unit #: [id number] Loc: [place] [address] Phys: Brittnee Ramirez MD Acct: [id number] Dis Date: Status: DEPER PHONE #: [phone] Exam Date: 11/23/2020 014 FAX #: [phone] Reason: No PNC, bleeding, approximately 20 weeks EXAMS: CPT CODE: [id number] US PREG AFTER 1ST TRI 89209 EXAM: US, US PREG AFTER 1SR TRI: [...] 1 Signed Report (CONTINUED) Name: LUIS EDMONDS [facility] [place] : 2000 Age/S: 19 / F [address] [place] [address] Unit #: [id number] Loc:[place] [address] Phys: Brittnee Ramirez MD Acct: [id number] Dis Date: Status: DEP ER PHONE #: [phone] Exam Date: 11/23/2020 014 FAX #: [phone] Reason: No PNC, bleeding, approximately 20 weeks EXAMS: CPT CODE: [id number] US PREG AFTER 1ST TRI 72047 <Continued> seen. Cervical length is not visualized. [...] /HPF NONE A DRUGS OF ABUSE SCREEN [id number] 01:40:00* Test Item Value Reference Range Interpretation [...] be used for non-medical purposes. CBC W/AUTO [id number] 01:27:00* Test Item Value Reference Range Interpretation [...] c ode = MDIFF) NO BASIC METABOLIC [id number] 02:51:00* Test Item Value Reference Range Interpretation [...] = CA) 9.5 mg/dL 8.0-10.5 N HCG [id number] 02:51:00* Test Item Value Reference Range Interpretation Comme nts HCG SERUM (test code = HCG) 73374.3 0 - 6 NOT PREGNA NT > 6 SUGGESTIVE OF EARLY RISES TWO FOLD EVERY 2 DAYS; SUGGEST RECONFIRMING AFTER 2 DAYS. 150,000-200,[address] TRIMESTER 10,000 - 50,000 2ND & 3RD TRIMESTERResults in emanuel-International Units/mL URINALYSIS [id number] 02:39:00* Test Item Value Reference Range Interpretation [...] MUCU) TRACE /LPF NONE SEEN CBC W/AUTO [id number] 02:21:00* Test Item Value Reference Range Interpretation [...] = MDIFF) NO - US PREG 1ST [id number] 02:19:00 [facility] : 2000 Sex: F Name: LUIS EDMONDS [facility] : 2000 Age/S: 19 / F [address] [place] [address] Unit #:[id number] Loc: [place] [address] Phys: Nirav Nolan MD Acct: [id number] Dis Date: Status: REG ER PHONE #: [phone] Exam Date: 10/05/2020209 FAX #: [phone] Reason: VB EXAMS: CPT CODE: [id number] US PREG 1ST TRIMTR 79570 STUDY: - DUP AB/PEL/SC/LTD, - US PREG 1ST TRIMTR 10/05/2020 1:17AM Ordering Physician: Nirav Nolan MD Patient Name: LUIS EDMONDS MR: [id number] : 2000; Age: 19 years y/o Female [...] 1 Signed Report (CONTINUED) Name: LUIS EDMONDS [facility] Madeline Coffman : 2000 Age/S: 19 / F [address] [place] [address] Unit #: [id number] Loc: [place] [address] Phys: Nirav Nolan MD Acct: [id number] Dis Date: Status: REG ER PHONE #: [phone] Exam Date: 10/05/2020209 FAX #: [phone] Reason: VB EXAMS: CPT CODE: [id number] US PREG 1ST TRIMTR 72879 <Continued> SL: TPAINTER-H at 0219 Reported and signed by: Abdias Avila M.D. CC: Elina Rome MD; Nirav Nolan MD Technologist: Maryam Anderson RDMS(BR)(AB) Trnscb Date/Time: 10/05/2020 (218) [email or web address] Orig Print D/T: S: 10/05/2020 (022) Probe: PAGE 2 Signed Report- DUP AB/PEL/SC/LTD 2020-10-05 02:19:00 [facility] : 2000 Sex: F Name: LUIS EDMONDS [facility] : 2000 Age/S: 19 / F [address] [place] [address] Unit #: [id number] Loc: [place] [address] Phys: Nirav Nolan MD Acct: [id number] Dis Date: Status: REGER PHONE #: [phone] Exam Date: 10/05/2020209 FAX #: [phone] Reason: see US PREG 1st TRIMTR EXAMS: CPT CODE: [id number] DUP AB/PEL/SC/LTD 11553 STUDY: - DUP AB/PEL/SC/LTD, - US PREG 1ST TRI MTR 10/05/2020 1:17 AM Ordering Physician: Nirav Nolan MD Patient Name: LUIS EDMONDS MR: [id number] : 2000; Age: 19 years y/o Female [...] Signed Report (CONTINUED) Name: LUIS EDMONDS [facility] : 2000 Age/S: 19 / F [address] [place] [address] Unit #: [id number] Loc: [place] [address] Phys: Nirav Nolan MD Acct: [id number] Dis Date: Status: REG ER PHONE #: [phone] Exam Date: 10/05/2020209 FAX #: [phone] Reason: see US PREG 1st TRIMTR EXAMS: CPT CODE: [id number] DUP AB/PEL/SC/LTD 03853<Continued> SL: TPAINTER-H at 0219 Reported and signed by: Abdias Avila M.D. CC: Elina Rome MD; Nirav Nolan MD Technologist: Maryam Anderson RDMS(BR)(AB) Trnscb Date/Time: 10/05/2020 (218) [email or web address] Orig Print D/T: S: 10/05/2020 (221) Probe: PAGE 2 Signed Report- DUP AB/PEL/SC/[id number] 22:07:00 [facility] : 2000 Sex: F Name: LUIS EDMONDS [facility] : 2000 Age/S: 19 / F [address] [place] [address] Unit #: [id number] Loc: [place] [address] Phys: Cathy Bruce Acct: [id number] Dis Date: Status: REG ER PHONE #: [phone] Exam Date: 08/22/20202199 FAX #: [phone] Reason: see US PREG 1st TRIMTR EXAMS: CPT CODE: [id number] DUP AB/PEL/SC/LTD 06918 PROCEDURE: FIRST TRIMESTER ULTRASOUND INDICATION: 6 weeks [...] PAGE 1 Signed Report- US PREG 1ST [id number] 22:07:00[facility] : 2000 Sex: F Name: LUIS EDMONDS [facility] : 2000 Age/S: 19 / F [address] [place] [address] Unit #: [id number] Loc: [place] [address] Phys: Cathy Bruce Acct: [id number] Dis Date: Status: REG ER PHONE #: [phone] Exam Date: 08/22/20202199 FAX #: [phone] Reason: 6w , cramping EXAMS: CPT CODE: [id number] US PREG 1ST TRIMTR 46970 PROCEDURE: FIRST TRIMESTER ULTRASOUND INDICATION: 6 weeks [...] 08/22/2020 (2209) Probe: PAGE 1 Signed ReportURINALYSIS [id number] 21:50:00* Test Item Value Reference Range Interpretation [...] MUCU) TRACE /LPF NONE SEEN BASIC METABOLIC [id number] 21:48:00* Test Item Value Reference Range Interpretation [...] patient ? YHOW MANY WEEKS? 6 WEEKSHCG [id number] 21:48:00* Test Item Value Reference Range Interpretation Comme nts HCG SERUM (test code = HCG) 78478.6 0 - 6 NOT PREGNA NT > 6 SUGGESTIVE OF EARLY RISES TWO FOLD EVERY 2 DAYS; SUGGEST RECONFIRMING AFTER 2 DAYS. 150,000-200,[address] TRIMESTER 10,000 - 50,000 2ND & 3RD TRIMESTERResults in emanuel-International Units/mL Is patient ? YHOW MANY WEEKS? 6 WEEKSUR HCG [id number] 21:47:00* Test Item Value Reference Range Interpretation Comme nts UR HCG QUAL (test code = HCGQLU) POSITIVE NEGATIVE CBC W/AUTO [id number] 21:33:00* Test Item Value Reference Range Interpretation [...] c ode = MDIFF) NO CBC W/AUTO [id number] 21:31:00* Test Item Value Reference Range Interpretation [...] c ode = MDIFF) Novel Coronavirus 2019 [id number] 14:50:00* Test Item Value Reference Range Interpretation Comme nts Novel Coronavirus 2019 nCoV (test code = COVID19) Negative Negative Performed by: [facility] [address] [place] [address], [address] [place], [place] [address] CLIA#: [id number] Does patient have the clinical criteria consistent with COVID-19? YIs the patient going to be discharged home? Y- CT NECK W/[id number] 02:35:00 Name: DELMER EDMONDSLLE [facility] : 2000 Age/S: 19 / F [address] [place] [address] Blvd Unit #: [id number] Loc: [place] [address] Phys: Amilcar Pablo OPERATING SYSTEM PROGRAMMER Acct: [id number] Dis Date: Status: REGER PHONE #: [phone] Exam Date: 02/16/2020 0134 FAX #: [phone] Reason: R lymphadenopathy, throat pain, fever EXAMS: CPT CODE: [id number] CT NECK W/CONTRAST 95267 EXAM: CT, CT NECK W/CONTRAST: 02/16/2020, 0132 [...] 1 Signed Report (CONTINUED) Name: LUIS EDMONDS [facility] Madeline Coffman : 2000 Age/S: 19 / F [address] [place] [address] Unit #: [id number] Loc: [place] [address] Phys: Amilcar Pablo OPERATING SYSTEM PROGRAMMER Acct: [id number] Dis Date: Status: REG ER PHONE #: Exam Date: 02/16/2020 0134 FAX #: [phone] Reason: R lymphadenopathy, throat pain, fever EXAMS: CPT CODE: [id number] CT NECK W/CONTRAST 79822 <Continued> unremarkable. OSSEOUS STRUCTURES: There are no [...] 02/16/2020 (0239) PAGE 2 Signed ReportCOMPREHENSIVE METABOLIC [id number] 00:12:00* Test Item Value Reference Range Interpretation [...] = ALKP) 70 IUnit/L 60-350 N MONO [id number] 00:09:00* Test Item Value Reference Range Interpretation Comme nts MONO SCREEN (test code = MONO) NEGATIVE NEGATIVE URINALYSIS [id number] 00:02:00* Test Item Value Reference Range Interpretation [...] MUCU) 1+ /LPF NONE SEEN COMPREHENSIVE METABOLIC [id number] 00:02:00* Test Item Value Reference Range Interpretation [...] code = ALKP) IUnit/L 60-350 CBC W/AUTO [id number] 23:59:00* Test Item Value Reference Range Interpretation [...] (test code = MDIFF) NO UR HCG [id number] 23:56:00* Test Item Value Reference Range Interpretation Comme nts UR HCG QUAL (test code = HCGQLU) NEGATIVE NEGATIVE Notes Date/Time Note Provider Source 2022-11-16 15:41:00 [id number] [address] PATIENT NAME: LUIS EDMONDS ADMIT DATE: 10/30/22 ACCOUNT NO: [id number] ROOM NO: [facility] AGE: 21 REPORT TYPE: 360 - QUERY RESPONSE DOCUMENT SEX: F ADMITTING PHYSICIAN:Luis Burciaga MD ATTENDING PHYSICIAN:Luis Burciaga MD Provider Query QUERY TEXT: Clarification Pathology 360MD Query related questions should be directed to: [facility] Coding Query Hotline Based on [...] AM at 1541 PATIENT NAME: LUIS EDMONDS [facility] 2022-11-02 15:02:00 [facility] ([facility]) OB Disch REPORT#:[id number] REPORT STATUS: Signed DATE:11/02/22 TIME: 1502 PATIENT: LUIS EDMONDS UNIT #: [id number] ROOM/BED: [place] [address] : 02 AGE: 21 SEX: F ATTEND: [...] Additional discharge routines: None at 1504 RPT #:[id number] END OF REPORT [facility] 2022-11-02 14:57:00 [facility] ([facility]) OB Postpart Progr Note REPORT#:[id number] REPORT STATUS: Signed DATE:11/02/22 TIME: 1457 PATIENT: LUIS EDMONDS UNIT #: [id number] ROOM/BED: [place] [address] : 02 AGE: 21 SEX: F ATTEND: [...] routine care, discharge today at 1500 RPT #:[id number] END OF REPORT [facility] 2022-11-01 15:13:00 [facility] ([facility]) OB Postpart Progr Note REPORT#:[id number] REPORT STATUS: Signed DATE:11/01/22 TIME: 1513 PATIENT: LUIS EDMONDS UNIT #: [id number] ROOM/BED: [place] [address] : 02 AGE: 21 SEX: F ATTEND: [...] % (Auto) (14.0 - 32.0 %) 25.7 [place] % (Auto) (4.8 - 9.0 %) 9.7 H Eos % (Auto) (0.3 - 3.7 %) 0.8 Baso % (Auto) (0.0 - 2.0 %) 0.5 Neut # (Auto) (2.0 - 7.6 x10 3/uL) 7.76 H Lymph # (Auto) (1.0 - 3.8 x10 3/uL) 3.17 [place] # (Auto) (0.1 - 0.8 x10 3/uL) [...] progress Plan: routine care at 1514 RPT #:[id number] END OF REPORT [facility] 2022-10-31 15:14:00 [facility] ([facility]) DT History Physical REPORT#:[id number] REPORT STATUS: Signed DATE:10/31/22 TIME: 1514 PATIENT: LUIS EDMONDS UNIT #: [id number] ROOM/BED: [place] [address] : 02 AGE: 21 SEX: F ATTEND: [...] (14.0 - 32.0 %) 26.3 10/30 1830 [place] % (Auto) (4.8 - 9.0 %) 9.6 H 10/30 1829 Eos % (Auto) (0.3 - 3.7 %) 0.6 10/30 183 Baso % (Auto) (0.0 - 2.0 %) 0.3 10/30 1829 Neut # (Auto) (2.0 - 7.6 x10 3/uL) 6.27 10/30 1829 Lymph # (Auto) (1.0 - 3.8 x10 3/uL) 2.65 10/30 1829 [place] # (Auto) (0.1 - 0.8 x10 3/uL) [...] 1725 139 117/55 98 at 1514 RPT #:[id number] END OF REPORT [facility] 2022-10-31 15:12:00 [facility] ([facility]) OB Delivery Note REPORT#:[id number] REPORT STATUS: Signed DATE:10/31/22 TIME: 1512 PATIENT: LUIS EDMONDS UNIT #: [id number] ROOM[facility]BED: [facility] : 02 AGE: 21 SEX: F ATTEND: [...] status: GBS status: unknown Prophylaxis administered: penicillin [place] evaluation at delivery: NRP certified personnel Admission [...] condition: stable in room at 1514 RPT #:[id number] END OF REPORT [facility] 2022-09-27 16:38:00 [facility] ([facility]) OB Disch Undelivered REPORT#:[id number] REPORT STATUS: Signed DATE:09/27/22 TIME: 163 PATIENT: BI EDMONDS UNIT #: [id number] ROOM/BED: [place] [address] : 02 AGE: 21 SEX: F ATTEND: [...] Monitor: toco Frequency (description): None Frequency (minutes): FACTORER: Normal exteral genitalia Cervical/ exam: Dilatation (cm): [...] understanding will have her follow-up with her CLIENT SUPPORT PROFESSIONAL. Assessment: no evidence labor Impression: reactive NST [...] timeframe: In 1-2 weeks at 1953 RPT #:[id number] END OF REPORT [facility] 2022-09-27 10:39:00 [facility] ([facility]) OB Antepartum Prog Note REPORT#:[id number] REPORT STATUS: Signed DATE:09/27/22 TIME: 1039 PATIENT: BI EDMONDS UNIT #: [id number] ROOM/BED: [place] [address] : 02 AGE: 21 SEX: F ATTEND: [...] Monitor: toco Frequency (description): none Frequency (minutes): FACTORER: Normal exteral genitalia Cervical/ exam: Dilatation (cm): 1 Effacement (%): 50 station: -3 Presentation: Membrane status: FHR evaluation: FHR category: category I Diagnosis, Assessment Plan Diagnosis, Assessment Plan Free text A P: IUP 32 07/25 FFN + Patient found stable, patient evaluated by MFM, he recommends discharge home if no cervical change. Will check her this afternoon. at [facility] RPT #:[id number] END OF REPORT [facility] 2022-09-27 09:19:00 [facility] ([facility]) MFM Consultation Note REPORT#:[id number] REPORT STATUS: Signed DATE:09/27/22 TIME: 918 PATIENT: BI EDMONDS UNIT #: [id number] ROOM/BED: [place] [address] : 02 AGE: 21 SEX: F ATTEND: [...] pH (5.0 - 7.0) 5.0 Ur Specific [place] (1.005 - 1.030) 1.033 H Urine Protein [...] closely Floor time 50min at 0927 RPT #:[id number] END OF REPORT [facility] 2022-09-27 05:02:00 [facility] ([facility]) OB Admission / H P REPORT#:[id number] REPORT STATUS: Signed DATE:09/27/22 TIME: 0502 PATIENT: BI EDMONDS UNIT #: [id number] ROOM/BED: [place] [address] : 02 AGE: 21 SEX: F ATTEND: [...] pH (5.0 - 7.0) 5.0 Ur Specific [place] (1.005 - 1.030) 1.033 H Urine Protein [...] change, will DC home. at 0512 RPT #:[id number] END OF REPORT [facility] 2022-09-26 19:34:00 [facility] ([facility]) [facility] Evaluation Note REPORT#:[id number] REPORT STATUS: Signed DATE:09/26/22 TIME: 1933 PATIENT: BI EDMONDS UNIT #: [id number] [place] [facility] : 02 AGE: 21 SEX: F ATTEND: [...] POC dw patient, nurse at 0502 RPT #:[id number] END OF REPORT [facility] 2022-09-26 19:30:00 [facility] ([facility]) OB Medical Screening Exam REPORT#:[id number] REPORT STATUS: Signed DATE:09/26/22 TIME: 193 PATIENT: BI EDMONDS UNIT #: [id number] ROOM/BED: [place] [address] : 02 AGE: 21 SEX: F ATTEND: Luis Burciaga MD ADM DT: AUTHOR: Zoila Gomez DO * ALL edits or amendments must be made on the electronic/computer document * Medical Screening Exam Provider Attestation Comments: Patient was seen at 1920 for contraction, back pain, and decreased FM at 32 1/ 7wks at 1931 RPT #:[id number] END OF REPORT [facility] 2022-09-14 08:43:00 [facility] ([facility]) OB Disch Undelivered REPORT#:[id number] REPORT STATUS: Signed DATE:09/14/22 TIME: 842 PATIENT: LUIS EDMONDS UNIT #: [id number] ROOM/BED: [place] [address] : 02 AGE: 21 SEX: F ATTEND: [...] Additional Discharge Routines: None at 0845 RPT #:[id number] END OF REPORT [facility] 2022-09-14 08:41:00 [facility] ([facility]) OB Antepartum Prog Note REPORT#:[id number] REPORT STATUS: Signed DATE:09/14/22 TIME: 08 PATIENT: LUIS EDMONDS UNIT #: [id number] ROOM/BED: [place] [address] : 02 AGE: 21 SEX: F ATTEND: [...] labor Plan: discharge home at 0843 RPT #:[id number] END OF REPORT [facility] 2022-09-13 17:53:00 [facility] ([facility]) OB Antepartum Prog Note REPORT#:[id number] REPORT STATUS: Signed DATE:09/13/22 TIME: 175 PATIENT: LUIS EDMONDS UNIT #: [id number] ROOM/BED: [place] [address] : 02 AGE: 21 SEX: F ATTEND: [...] infant outside hospital decreases at 1802 RPT #:[id number] END OF REPORT [facility] 2022-09-13 09:03:00 [facility] ([facility]) [facility] Progress Note REPORT#:[id number] REPORT STATUS: Signed DATE:09/13/22 TIME: 902 PATIENT: LUIS EDMONDS UNIT #: [id number] ROOM/BED: [place] [address] : 02 AGE: 21 SEX: F ATTEND: [...] closely Floor time 35min at 0911 RPT #:[id number] END OF REPORT [facility] 2022-09-12 08:28:00 [facility] ([facility]) [facility] Progress Note REPORT#:[id number] REPORT STATUS: Signed DATE:09/12/22 TIME: 827 PATIENT: LUIS EDMONDS UNIT #: [id number] ROOM/BED: [place] [address] : 02 AGE: 21 SEX: F ATTEND: uLis Burciaga MD ADM AUTHOR: Kahlil Moore MD [...] closely Floor time 35min at 0834 RPT #:[id number] END OF REPORT [facility] 2022-09-12 01:41:00 [facility] ([facility]) OB Antepartum Prog Note REPORT#:[id number] REPORT STATUS: Signed DATE:09/12/22 TIME: 0141 PATIENT: LUIS EDMONDS UNIT #: [id number] ROOM/BED: [place] [address] : 02 AGE: 21 SEX: F ATTEND: [...] Plan: continue current managmnt at 0142 RPT #:[id number] END OF REPORT [facility] 2022-09-11 22:15:00 [facility] ([facility]) OB Antepartum Prog Note REPORT#:[id number] REPORT STATUS: Signed DATE:09/11/22 TIME: 2214 PATIENT: LUIS EDMONDS UNIT #: [id number] ROOM/BED: [place] [address] : 02 AGE: 21 SEX: F ATTEND: [...] Plan: continue current managmnt at 2218 RPT #:[id number] END OF REPORT [facility] 2022-09-11 07:18:00 [facility] ([facility]) [facility] Progress Note REPORT#:[id number] REPORT STATUS: Signed DATE:09/11/22 TIME: 717 PATIENT: LUIS EDMONDS UNIT #: [id number] ROOM/BED: [place] [address] : 02 AGE: 21 SEX: F ATTEND: [...] pH (5.0 - 7.0) 6.0 Ur Specific [place] (1.005 - 1.030) 1.019 Urine Protein (NEGATIVE) [...] closely Floor time 35min at 0724 RPT #:[id number] END OF REPORT [facility] 2022-09-10 13:12:00 [facility] ([facility]) [facility] Progress Note REPORT#:[id number] REPORT STATUS: Signed DATE:09/10/22 TIME: 1312 PATIENT: LUIS EDMONDS UNIT #: [id number] ROOM/BED: [place] [address] : 02 AGE: 21 SEX: F ATTEND: [...] closely Floor time 35min at 1325 RPT #:[id number] END OF REPORT [facility] 2022-09-10 08:19:00 [facility] ([facility] OB Antepartum Prog Note REPORT#:[id number] REPORT STATUS: Signed DATE:09/10/22 TIME: 818 PATIENT: LUIS EDMONDS UNIT #: [id number] ROOM/BED: [place] [address] : 02 AGE: 21 SEX: F ATTEND: [...] Plan: continue current managmnt at 0820 RPT #:[id number] END OF REPORT [facility] 2022-09-09 12:03:00 [facility] ([facility]) OB Admission / H P REPORT#:[id number] REPORT STATUS: Signed DATE:09/09/22 TIME: 1203 PATIENT: LUIS EDMONDS UNIT #: [id number] ROOM/BED: [place] [address] : 02 AGE: 21 SEX: F ATTEND: Luis Burciaga MD ADM AUTHOR: Juany Carrillo MD * ALL edits or amendments must be made on the electronic/computer document * OB History Notes: [facility] ([facility]) [facility] Evaluation Note REPORT#:[id number] REPORT STATUS: Signed DATE:09/07/22 TIME: 2242 PATIENT: LUIS EDMONDS UNIT #: [id number] ROOM/BED: [place] [address] : 02 AGE: 21 SEX: F ATTEND: [...] pH (5.0 - 7.0) 7.0 Ur Specific [place] (1.005 - 1.030) 1.006 Urine Protein (NEGATIVE) [...] counseling/coordination of care: yes at 0549 RPT #:[id number] END OF REPORT Past History Allergies: Uncoded Allergies: MARCUS ACID- THROAT SWELLING (Severe, 08/03/22) at 1207 RPT #:[id number] END OF REPORT [facility] 2022-09-09 09:03:00 [facility] ([facility]) OB Antepartum Prog Note REPORT#:[id number] REPORT STATUS: Signed DATE:09/09/22 TIME: 902 PATIENT: LUIS EDMONDS UNIT #: [id number] ROOM/BED: [place] [address] : 02 AGE: 21 SEX: F ATTEND: [...] Plan: continue current managmnt at 0906 RPT #:[id number] END OF REPORT [facility] 2022-09-09 08:58:00 [facility] ([facility]) OB Antepartum Prog Note REPORT#:[id number] REPORT STATUS: Signed DATE:09/09/22 TIME: 0858 PATIENT: LUIS EDMONDS UNIT #: [id number] ROOM/BED: [place] [address] : 02 AGE: 21 SEX: F ATTEND: [...] Plan: continue current managmnt at 0859 RPT #:[id number] END OF REPORT [facility] 2022-09-09 07:45:00 [facility] ([facility]) MFM Progress Note REPORT#:[id number] REPORT STATUS: Signed DATE:09/09/22 TIME: 0745 PATIENT: LUIS EDMONDS UNIT #: [id number] ROOM/BED: [place] [address] : 02 AGE: 21 SEX: F ATTEND: [...] closely Floor time 35min at 0748 RPT #:[id number] END OF REPORT [facility] 2022-09-08 17:21:00 [facility] ([facility]) [facility] Consultation Note REPORT#:[id number] REPORT STATUS: Signed DATE:09/08/22 TIME: 1721 PATIENT: LUIS EDMONDS UNIT #: [id number] ROOM/BED: [place] [address] : 02 AGE: 21 SEX: F ATTEND: [...] % (Auto) (14.0 - 32.0 %) 31.0 [place] % (Auto) (4.8 - 9.0 %) 8.1 Eos % (Auto) (0.3 - 3.7 %) 0.8 Baso % (Auto) (0.0 - 2.0 %) 0.3 Neut # (Auto) (2.0 - 7.6 x10 3/uL) 6.16 Lymph # (Auto) (1.0 - 3.8 x10 3/uL) 3.22 [place] # (Auto) (0.1 - 0.8 x10 3/uL) [...] pH (5.0 - 7.0) 7.0 Ur Specific [place] (1.005 - 1.030) 1.006 Urine Protein (NEGATIVE) [...] reviewed Sono today: vtx, ant. placenta, EFW 4ebm5nl (1574g, 68%ile), nl range ISMA 15.4, nl [...] with you closely Floor time 80min at 9691 RPT #:[id number] END OF REPORT [facility] 2022-09-07 22:44:00 [facility] ([facility]) OB Medical Screening Exam REPORT#:[id number] REPORT STATUS: Signed DATE:09/07/22 TIME: 1619 PATIENT: LUIS EDMONDS UNIT #: [id number] ROOM/BED: [place] [address] : 02 AGE: 21 SEX: F ATTEND: [...] did not leak urine. at 0557 RPT #:[id number] END OF REPORT [facility] 2022-09-07 22:43:00 [facility] ([facility]) [facility] Evaluation Note REPORT#:[id number] REPORT STATUS: Signed DATE:09/07/22 TIME: 2242 PATIENT: LUIS EDMONDS UNIT #: [id number] ROOM[facility]BED: [facility] : 02 AGE: 21 SEX: F ATTEND: [...] pH (5.0 - 7.0) 7.0 Ur Specific [place] (1.005 - 1.030) 1.006 Urine Protein (NEGATIVE) [...] counseling/coordination of care: yes at 0549 RPT #:[id number] END OF REPORT [facility] 2022-08-06 11:00:00 [facility] ([facility]) OB Medical Screening Exam REPORT#:[id number] REPORT STATUS: Signed DATE:08/06/22 TIME: 1100 PATIENT: LUIS EDMONDS UNIT #: [id number] ROOM/BED: : 02 AGE: 21 SEX: F ATTEND: Effie Solitario MD ADM AUTHOR: Effie Solitario MD * ALL edits or amendments must be made on the electronic/computer document * Medical Screening Exam Provider Attestation Attestation: The QMP MSE reviewed. DATE 08/03/2019 Notified at 1523 Provider at bedside at 1523 Comments: 21 Y/O IUP 24 2/7 presents due to cramping. at 1101 RPT #:[id number] END OF REPORT [facility] 2022-08-06 11:00:00 [facility] ([facility]) [facility] Evaluation Note REPORT#:[id number] REPORT STATUS: Signed DATE:08/06/22 TIME: 1100 PATIENT: LUIS EDMONDS UNIT #: [id number] ROOM/BED: : 02 AGE: 21 SEX: F [...] Monitor: toco Frequency (description): None Frequency (minutes): FACTORER: Normal exteral genitalia Cervical/ exam: Speculum exam: [...] understanding will have her follow-up with her CLIENT SUPPORT PROFESSIONAL. Assessment: no evidence labor Impression: reactive NST Plan: discharge home Plan discussed with: patient, nurse at 1106 RPT #:[id number] END OF REPORT [facility] 2022-03-06 16:08:00 [facility] emergency provider report report#:[id number] report status: signed date:03/06/22 time: 1608 patient: luis edmonds unit #: [id number] room/bed: age: 21 sex: f pcp phys: [...] asdir dme - crutches (crutch set) [facility] patient instructions ed ankle sprain (adult), ed foot sprain, ed rice referrals provider referral: cheli gamino md follow-up: as needed notes: orthopedic surgeon address: [address] [place] [address] [address], [place] [address] provider group: primary care follow-up: 1 week [...] chavez md on 03/06/22 at 1747 rpt #:[id number] end of report [facility] 2021-11-11 00:46:00 [facility] ([facility] EMERGENCY PROVIDER REPORT REPORT#:[id number] REPORT STATUS: Signed DATE:11/11/21 TIME: 004 PATIENT: LUIS EDMONDS UNIT #: [id number] ROOM/BED: AGE: 20 SEX: F PCP PHYS: [...] pH (5.0 - 7.0) 7 Ur Specific [place] (1.005 - 1.030) 1.010 POC Urine Protein [...] a call to 911. at 0107 RPT #:[id number] END OF REPORT [facility] 2021-08-08 22:23:00 [facility] ([facility] EMERGENCY PROVIDER REPORT REPORT#:[id number] REPORT STATUS: Signed DATE:08/08/21 TIME: 2222 PATIENT: LUIS EDMONDS UNIT #: [id number] ROOM/BED: AGE: 20 SEX: F PCP PHYS: [...] department or a call to 911. at [facility] RPT #:[id number] END OF REPORT [facility] 2021-03-28 09:04:00 [facility] ([facility]) OB Disch REPORT#:[id number] REPORT STATUS: Signed DATE:03/28/21 TIME: 903 PATIENT: LUIS EDMONDS UNIT #: [id number] ROOM/BED: [place] [address] : 02 AGE: 20 SEX: F ATTEND: [...] Additional discharge routines: None at 0905 RPT #:[id number] END OF REPORT [facility] 2021-03-28 09:03:00 [facility] ([facility]) OB Postpart Progr Note REPORT#:[id number] REPORT STATUS: Signed DATE:03/28/21 TIME: 902 PATIENT: LUIS EDMONDS UNIT #: [id number] ROOM/BED: [place] [address] : 02 AGE: 20 SEX: F ATTEND: [...] routine care, discharge today at 0904 RPT #:[id number] END OF REPORT [facility] 2021-03-27 09:21:00 [facility] ([facility]) OB Postpart Progr Note REPORT#:[id number] REPORT STATUS: Signed DATE:03/27/21 TIME: 920 PATIENT: LUIS EDMONDS UNIT #: [id number] ROOM/BED: [place] [address] : 02 AGE: 20 SEX: F ATTEND: [...] % (Auto) (14.0 - 32.0 %) 24.9 [place] % (Auto) (4.8 - 9.0 %) 9.4 H Eos % (Auto) (0.3 - 3.7 %) 0.6 Baso % (Auto) (0.0 - 2.0 %) 0.2 Neut # (Auto) (2.0 - 7.6 x10 3/uL) 8.09 H Lymph # (Auto) (1.0 - 3.8 x10 3/uL) 3.13 [place] # (Auto) (0.1 - 0.8 x10 3/uL) [...] progress Plan: routine care at 0922 RPT #:[id number] END OF REPORT [facility] 2021-03-26 18:49:00 [facility] ([facility]) OB Delivery Note REPORT#:[id number] REPORT STATUS: Signed DATE:03/26/21 TIME: 1848 PATIENT: LUIS EDMONDS UNIT #: [id number] ROOM/BED: [place] [address] : 02 AGE: 20 SEX: F ATTEND: [...] loss at delivery: 50 at 1852 RPT #:[id number] END OF REPORT [facility] 2021-03-26 08:25:00 [facility] ([facility]) DT History Physical REPORT#:[id number] REPORT STATUS: Signed DATE:03/26/21 TIME: 824 PATIENT: LUIS EDMONDS UNIT #: [id number] ROOM/BED: [place] [address] : 02 AGE: 20 SEX: F ATTEND: Luis Burciaga MD ADM AUTHOR: Luis Burciaga MD * ALL edits or amendments must be made on the electronic/computer document * History Physical History Physical Please care records and office H P at 2112 RPT #:[id number] END OF REPORT [facility] 2021-03-12 21:16:00 [facility] ([facility]) OB Medical Screening Exam REPORT#:[id number] REPORT STATUS: Signed DATE:03/12/21 TIME: 2115 PATIENT: LUIS EDMONDS UNIT #: [id number] ROOM/BED: : 02 AGE: 20 SEX: F ATTEND: Effie Solitario MD ADM AUTHOR: Effie Solitario MD * ALL edits or amendments must be made on the electronic/computer document * Medical Screening Exam Provider Attestation Attestation: The QMP MSE reviewed. Provider at bedside at 2113 Comments: 20 y/o GP0 IUP 35 4/7 presents due to leaking of fluid and contractions. at 2152 RPT #:[id number] END OF REPORT [facility] 2021-03-12 21:16:00 [facility] ([facility]) [facility] Evaluation Note REPORT#:[id number] REPORT STATUS: Signed DATE:03/12/21 TIME: 2115 PATIENT: LUIS EDMONDS UNIT #: [id number] ROOM/BED: [place] [address] : 02 AGE: 20 SEX: F ATTEND: [...] toco Frequency (description): uterine irritability Frequency (minutes): FACTORER: Normal exteral genitalia Cervical/ exam: Speculum exam: [...] understanding will have her follow-up with her CLIENT SUPPORT PROFESSIONAL. Assessment: no evidence labor Impression: reactive NST Plan: discharge home Plan discussed with: patient, nurse at 0104 RPT #:[id number] END OF REPORT [facility] 2021-03-01 06:09:00 [facility] ([facility]) [facility] Evaluation Note REPORT#:[id number] REPORT STATUS: Signed DATE:03/01/21 TIME: 06 PATIENT: LUIS EDMONDS UNIT #: [id number] ROOM/BED: [place] [address] : 02 AGE: 20 SEX: F ATTEND: [...] 1 TAB PO DAILY 12/25/20 03/01/21 FUMARATE/FA 3871 [id number] () Strength: 1 EACH TAB Allergies Uncoded [...] Monitor: toco Frequency (description): irregular Frequency (minutes): FACTORER: Normal exteral genitalia Cervical/ exam: Dilatation (cm): [...] AT HER APT WEDNESDAY. at 0854 RPT #:[id number] END OF REPORT [facility] 2021-03-01 06:09:00 [facility] ([facility] OB Medical Screening Exam REPORT#:[id number] REPORT STATUS: Signed DATE:03/01/21 TIME: 608 PATIENT: LUIS EDMONDS UNIT #: [id number] ROOM/BED: [place] [address] : 02 AGE: 20 SEX: F ATTEND: Luis Burciaga MD ADM AUTHOR: Effie Solitario MD * ALL edits or amendments must be made on the electronic/computer document * Medical Screening Exam Provider Attestation Attestation: The QMP MSE reviewed. Provider at bedside at 0600 Comments: IUP 34 0/7 presents due to decreased movements and pelvic pressure. at 0643 RPT #:[id number] END OF REPORT [facility] 2021-03-01 06:09:00 [facility] ([facility]) [facility] Evaluation Note REPORT#:[id number] REPORT STATUS: Signed DATE:03/01/21 TIME: 608 PATIENT: LUIS EDMONDS UNIT #: [id number] ROOM/BED: [place] [address] : 02 AGE: 20 SEX: F ATTEND: [...] Monitor: toco Frequency (description): irregular Frequency (minutes): FACTORER: Normal exteral genitalia Cervical/ exam: Dilatation (cm): [...] assume care at 0700 at 0647 RPT #:[id number] END OF REPORT [facility] 2021-02-17 15:34:00 [facility] OB Medical Screening Exam REPORT#:[id number] REPORT STATUS: Signed DATE:02/17/21 TIME: 153 PATIENT: LUIS EDMONDS UNIT #: [id number] ROOM/BED: [place] [address] : 02 AGE: 20 SEX: F ATTEND: Effie Solitario MD ADM DT: AUTHOR: Effie Solitario MD * ALL edits or amendments must be made on the electronic/computer document * Medical Screening Exam Provider Attestation Attestation: The QMP MSE reviewed. Provider at bedside at 1536 Comments: 20 y/o IUP 32 2/7 presents due to gush of fluids and cramping. at 1615 [facility] #:[id number] END OF REPORT [facility] 2021-02-17 15:34:00 [facility] ([facility]) [facility] Evaluation Note REPORT#:[id number] REPORT STATUS: Signed DATE:02/17/21 TIME: 1534 PATIENT: LUIS EDMONDS UNIT #: [id number] ROOM/BED: : 02 AGE: 20 SEX: F [...] Monitor: toco Frequency (description): none Frequency (minutes): FACTORER: Normal exteral genitalia Cervical/ exam: Speculum exam: [...] understanding will have her follow-up with her CLIENT SUPPORT PROFESSIONAL. Assessment: no evidence labor Impression: reactive NST Plan: discharge home Plan discussed with: patient, nurse at 1950 RPT #:[id number] END OF REPORT [facility] 2021-02-12 21:22:00 [facility] ([facility] OB Medical Screening Exam REPORT#:[id number] REPORT STATUS: Signed DATE:02/12/21 TIME: 2121 PATIENT: LUIS EDMONDS UNIT #: [id number] ROOM/BED: : 02 AGE: 20 SEX: F [...] nausea and decreased movements. at 0915 RPT #:[id number] END OF REPORT [facility] 2021-02-12 21:21:00 [facility] ([facility] Evaluation Note REPORT#:[id number] REPORT STATUS: Signed DATE:02/12/21 TIME: 2120 PATIENT: LUIS EDMONDS UNIT #: [id number] ROOM/BED: : 02 AGE: 20 SEX: F [...] Monitor: toco Frequency (description): none Frequency (minutes): FACTORER: Normal exteral genitalia Cervical/ exam: Speculum exam: no discharge Dilatation (cm): closed Effacement (%): thick station: high FHR evaluation: FHR category: category I Results Findings/Data: Laboratory Tests: 02/12 Miscellaneous Fibronectin (NEGATIVE) NEGATIVE Urines Urine Color (YEL/STRAW) YELLOW Urine Appearance (CLEAR) CLEAR Urine pH (5.0 - 7.0) 6.0 Ur Specific [place] (1.005 - 1.030) 1.006 Urine Protein (NEGATIVE) [...] understanding will have her follow-up with her CLIENT SUPPORT PROFESSIONAL. Assessment: no evidence labor Impression: reactive NST Plan: discharge home Plan discussed with: patient, nurse at 09[address] [facility] #:[id number] END OF REPORT [facility] 2021-01-29 03:41:00 [facility] ([facility]) OLGA Evaluation Note REPORT#:[id number] REPORT STATUS: Signed DATE:01/29/21 TIME: 034 PATIENT: LUIS EDMONDS UNIT #: [id number] ROOM/BED: [place] [address] : 02 AGE: 20 SEX: F ATTEND: [...] pH (5.0 - 7.0) 7.0 Ur Specific [place] (1.005 - 1.030) 1.010 Urine Protein (NEGATIVE) [...] f/u as scheduled with primary OB in [place], [place] at 0355 RPT #:[id number] END OF REPORT [facility] 2021-01-29 03:39:00 [facility] ([facility]) OB Medical Screening Exam REPORT#:[id number] REPORT STATUS: Signed DATE:01/29/21 TIME: 033 PATIENT: LUIS EDMONDS UNIT #: [id number] ROOM/BED: [place] [address] : 02 AGE: 20 SEX: F ATTEND: [...] no lof/rom. no vb. at 0341 RPT #:[id number] END OF REPORT [facility] 2020-12-25 16:25:00 [facility] ([facility]) [facility] Evaluation Note REPORT#:[id number] REPORT STATUS: Signed DATE:12/25/20 TIME: 1625 PATIENT: LUIS EDMONDS UNIT #: [id number] ROOM/BED: [place] [address] : 02 AGE: 20 SEX: F ATTEND: [...] She was told in prior u/s at [facility] that ISMA was low, she did have [...] for cxn. Will f/u at 1632 RPT #:[id number] END OF REPORT [facility] 2020-12-25 16:25:00 [facility] ([facility]) [facility] Evaluation Note REPORT#:[id number] REPORT STATUS: Signed DATE:12/25/20 TIME: 1625 PATIENT: LUIS EDMONDS UNIT #: [id number] ROOM/BED: [place] [address] : 02 AGE: 20 SEX: F ATTEND: [...] She was told in prior u/s at [facility] that ISMA was low, she did have [...] her OB this week. at 1807 RPT #:[id number] END OF REPORT [facility] 2020-12-25 16:24:00 [facility]) OB Medical Screening Exam REPORT#:[id number] REPORT STATUS: Signed DATE:12/25/20 TIME: 1624 PATIENT: LUIS EDMONDS UNIT #: [id number] ROOM/BED: [place] [address] : 02 AGE: 20 SEX: F ATTEND: Pearl Chavez DO ADM AUTHOR: Pearl Chavez DO * ALL edits or amendments must be made on the electronic/computer document * Medical Screening Exam Provider Attestation Comments: Pt triaged at 1610. at 1625 RPT #:[id number] END OF REPORT [facility] 2020-11-23 00:54:00 [facility]) OB Triage Visit REPORT#:[id number] REPORT STATUS: Signed DATE:11/23/20 TIME: 0054 PATIENT: LUIS EDMONDS UNIT #: [id number] ROOM/BED: [place] [address] : 02 AGE: 19 SEX: F ATTEND: [...] and reassured. Patient recieves PNC at the [facility]. Did not need to wear [...] type ordered Ultrasound complete at 0107 RPT #:[id number] END OF REPORT [facility] 2020-10-05 03:31:00 [facility] ([facility]) EMERGENCY PROVIDER REPORT REPORT#:[id number] REPORT STATUS: Signed DATE:10/05/20 TIME: 033 PATIENT: LUIS EDMONDS UNIT #: [id number] ROOM/BED: AGE: 19 SEX: F PCP PHYS: [...] % (Auto) (28.0 - 48.0 %) 33.4 [place] % (Auto) (3.0 - 15.0 %) 6.3 Eos % (Auto) (1.0 - 8.0 %) 1.1 Baso % (Auto) (0.0 - 2.0 %) 0.5 Neut # (Auto) (2.0 - 3.2 x10 3/uL) 7.28 H Lymph # (Auto) (1.0 - 3.8 x10 3/uL) 4.17 H [place] # (Auto) (0.1 - 0.8 x10 3/uL) [...] x10 3/uL) 0.00 Miscellaneous Maternal Serum HCG 20377.3 Urines Urine Color (YEL/STRAW) YELLOW Urine Appearance (CLEAR) CLEAR Urine pH (5.0 - 7.0) 5.0 Ur Specific [place] (1.005 - 1.030) 1.017 Urine Protein (NEGATIVE) [...] ... Additional Instructions TYLENOL DIRECTED at [address] [facility] #:[id number] END OF REPORT [facility] 2020-08-22 20:42:00 [facility] ([facility]) EMERGENCY PROVIDER REPORT REPORT#:[id number] REPORT STATUS: Signed DATE:08/22/20 TIME: 2041 PATIENT: LUIS EDMONDS UNIT #: [id number] ROOM/BED: AGE: 19 SEX: F PCP PHYS: Elina Rome MD SERVICE AUTHOR: Cathy Bruce * ALL edits or amendments must be made on the electronic/computer document * HPI- Female Free Text HPI Notes Free Text HPI Notes 19-year-old female G1, 6 weeks EGA with LMP12/21 presents to ED after positive test hairspring studder'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 She reports associated nausea, [...] No palpable masses or pulsetile masses. Negative Price Sign. No TTP at [place] Ext: [...] % (Auto) (28.0 - 48.0 %) 30.6 [place] % (Auto) (3.0 - 15.0 %) 5.9 Eos % (Auto) (1.0 - 8.0 %) 0.6 L Baso % (Auto) (0.0 - 2.0 %) 0.7 Neut # (Auto) (2.0 - 3.2 x10 3/uL) 6.51 H Lymph # (Auto) (1.0 - 3.8 x10 3/uL) 3.22 [place] # (Auto) (0.1 - 0.8 x10 3/uL) [...] x10 3/uL) 0.00 Miscellaneous Maternal Serum HCG 13316.6 Urines Urine Color (YEL/STRAW) STRAW Urine Appearance (CLEAR) CLEAR Urine pH (5.0 - 7.0) 6.0 Ur Specific [place] (1.005 - 1.030) 1.008 Urine Protein (NEGATIVE) [...] a call to 911. at 2346 RPT #:[id number] END OF REPORT [facility] 2020-08-22 20:42:00 [facility] ([facility]) EMERGENCY PROVIDER REPORT REPORT#:[id number] REPORT STATUS: Signed DATE:08/22/20 TIME: 2041 PATIENT: LUIS EDMONDS UNIT #: [id number] ROOM/BED: AGE: 19 SEX: F PCP PHYS: Elina Rome MD SERVICE AUTHOR: Cathy Bruce * ALL edits or amendments must be made on the electronic/computer document * Cathy Bruce 08/22/202041: HPI- Female Free Text HPI Notes Free Text HPI Notes 19-year-old female G1, 6 weeks EGA with LMP109/08 presents to ED after positive test hairspring studder'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 She reports associated nausea, [...] No palpable masses or pulsetile masses. Negative Price Sign. No TTP at [place] Ext: [...] % (Auto) (28.0 - 48.0 %) 30.6 [place] % (Auto) (3.0 - 15.0 %) 5.9 Eos % (Auto) (1.0 - 8.0 %) 0.6 L Baso % (Auto) (0.0 - 2.0 %) 0.7 Neut # (Auto) (2.0 - 3.2 x10 3/uL) 6.51 H Lymph # (Auto) (1.0 - 3.8 x10 3/uL) 3.22 [place] # (Auto) (0.1 - 0.8 x10 3/uL) [...] x10 3/uL) 0.00 Miscellaneous Maternal Serum HCG 20295.6 Urines Urine Color (YEL/STRAW) STRAW Urine Appearance (CLEAR) CLEAR Urine pH (5.0 - 7.0) 6.0 Ur Specific [place] (1.005 - 1.030) 1.008 Urine Protein (NEGATIVE) [...] 4 days. SL: SG-H Impression By: Phil Izquiredo M.D. Lab Imaging Statement Laboratory radiographic studies [...] Saw Pt Alone I have reviewed the PA/OPERATING SYSTEM PROGRAMMER's note and plan of care. I was available for consultation as needed at all times during the patient's visit in the emergency department. I agree with the clinical impression, plan and disposition. at 2346 at 2338 RPT #:[id number] END OF REPORT [facility] 2020-02-15 23:20:00 [facility] ([facility]) EMERGENCY PROVIDER REPORT REPORT#:[id number] REPORT STATUS: Signed DATE:02/15/20 TIME: 2319 PATIENT: LUIS EDMONDS UNIT #: [id number] ROOM/BED: AGE: 19 SEX: F PCP PHYS: [...] Covid exposures. General Initial Greet Date/Time 02/15/20 5165 Presentation Chief Complaint Fever, Sore throat Hx [...] (Auto) (28.0 - 48.0 %) 13.9 L [place] % (Auto) (3.0 - 15.0 %) 10.0 Eos % (Auto) (1.0 - 8.0 %) 0.0 L Baso % (Auto) (0.0 - 2.0 %) 0.4 Neut # (Auto) (2.0 - 3.2 x10 3/uL) 9.16 H Lymph # (Auto) (1.0 - 3.8 x10 3/uL) 1.70 [place] # (Auto) (0.1 - 0.8 x10 3/uL) [...] pH (5.0 - 7.0) 6.0 Ur Specific [place] (1.005 - 1.030) 1.015 Urine Protein (NEGATIVE) [...] Elina Rome MD (PCP/Family) at 0332 RPT #:[id number] END OF REPORT [facility] 2020-02-15 23:20:00 [facility] ([facility]) EMERGENCY PROVIDER REPORT REPORT#:[id number] REPORT STATUS: Signed DATE:02/15/20 TIME: 2319 PATIENT: LUIS EDMONDS UNIT #: [id number] ROOM/BED: AGE: 19 SEX: F PCP PHYS: [...] (Auto) (28.0 - 48.0 %) 13.9 L [place] % (Auto) (3.0 - 15.0 %) 10.0 Eos % (Auto) (1.0 - 8.0 %) 0.0 L Baso % (Auto) (0.0 - 2.0 %) 0.4 Neut # (Auto) (2.0 - 3.2 x10 3/uL) 9.16 H Lymph # (Auto) (1.0 - 3.8 x10 3/uL) 1.70 [place] # (Auto) (0.1 - 0.8 x10 3/uL) [...] pH (5.0 - 7.0) 6.0 Ur Specific [place] (1.005 - 1.030) 1.015 Urine Protein (NEGATIVE) [...] 02/15 137 0136 Electrolytic, Caloric, And Gregor Sig/Victroiano Start time Last Medication Dose Route Stop [...] HPI-General Illness General Initial Greet Date/Time 02/15/20 3635 Patient Discharge Departure Supervising Physician Note MidLv Saw Pt Alone I have reviewed the PA/OPERATING SYSTEM PROGRAMMER's note and plan of care. I was available for consultation as needed at all times during the patient's visit in the emergency department. I agree with the clinical impression, plan and disposition. at 0332 RPT #:[id number] END OF REPORT [facility] 2020-02-15 23:20:00 [facility] ([facility]) EMERGENCY PROVIDER REPORT REPORT#:[id number] REPORT STATUS: Signed DATE:02/15/20 TIME: 2319 PATIENT: LUIS EDMONDS UNIT #: [id number] ROOM/BED: AGE: 19 SEX: F PCP PHYS: [...] (Auto) (28.0 - 48.0 %) 13.9 L [place] % (Auto) (3.0 - 15.0 %) 10.0 Eos % (Auto) (1.0 - 8.0 %) 0.0 L Baso % (Auto) (0.0 - 2.0 %) 0.4 Neut # (Auto) (2.0 - 3.2 x10 3/uL) 9.16 H Lymph # (Auto) (1.0 - 3.8 x10 3/uL) 1.70 [place] # (Auto) (0.1 - 0.8 x10 3/uL) [...] pH (5.0 - 7.0) 6.0 Ur Specific [place] (1.005 - 1.030) 1.015 Urine Protein (NEGATIVE) [...] Saw Pt Alone I have reviewed the PA/OPERATING SYSTEM PROGRAMMER's note and plan of care. I was available for consultation as needed at all times during the patient's visit in the emergency department. I agree with the clinical impression, plan and disposition. at 0332 at 0517 [facility] #:[id number] END OF REPORT [facility] 2019-05-22 11:29:00 [facility] ([facility]) EMERGENCY PROVIDER REPORT REPORT#:[id number] REPORT STATUS: Signed DATE:05/22/19 TIME: 1129 PATIENT: LUIS EDMONDS UNIT #: [id number] ROOM/BED: AGE: 18 SEX: F PCP PHYS: [...] ED with c/o allergic reaction, onset 30mins MEDIA SERVICES DIRECTOR. Pt reports eating sour Skittles and felt sensation of throat swelling with associated neck/throat itchiness and SOB. She took 50mg of Benadryl and Epi Pen at school MEDIA SERVICES DIRECTOR. Pt was seen here previously on 05/02/19 [...] Dose Route Stop Time Status Admin Ipratropium Reliance 0.5 MG Q15M 05/22 1130 DC 05/22 [...] on 05/22/19 at 1129 at 2022 RPT #[id number] END OF REPORT [facility] 2019-05-02 09:53:00 [facility] ([facility] EMERGENCY PROVIDER REPORT REPORT#:[id number] REPORT STATUS: Signed DATE:05/02/19 TIME: 952 PATIENT: LUIS EDMONDS UNIT #: [id number] ROOM/BED: AGE: 18 SEX: F PCP PHYS: Elina Rome MD SERVICE AUTHOR: Carla Toledo MD * ALL edits or amendments must be made on the electronic/computer document * HPI-Allergic Reaction Peds General Confirmed Patient Yes Initial Greet Date/Time 05/02/[address] 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 Now c/o itchy throat. Denies nausea and [...] Priscilla Edwards on 05/02/19 at 0957 at 1439 RPT #:[id number] END OF REPORT [facility]
--- NOTE | 2025-04-25 00:12 | EDPHYS ---
Physician Documentation [facility] Name: Hilaria Rogers Age: 24 yrs Sex: Female : 2000 Arrival Date: 04/24/2025 Time: 23:10 Bed IW1 Private MD: ED Physician Jose Mancia HPI: 04/24 23:34 This 24 yrs old Female presents to ER via Ambulatory with complaints of Fall Injury, sb4 Wrist Injury. 23:34 Patient states that she slipped and fell getting out of the shower this evening. States sb4 that she landed on her left wrist awkwardly. Is complaining of pain and swelling to the left wrist. Is able to move her fingers, just causes pain to radiate up her arm. No other injuries reported. 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 - Infectious Disease History:: Denies. - Social history:: Smoking status: Reported history of juuling and/or vaping. ROS: 23:34 Constitutional: Negative for fever, chills, and weight loss, sb4 23:34 MS/extremity: Positive for injury or acute deformity, pain, of the left wrist, 23:34 All other systems are negative, Exam: 23:34 Constitutional: This is a well developed, well nourished patient who is awake, alert, sb4 and in no acute distress. Head/Face: Normocephalic, atraumatic. Eyes: Extra-ocular motions intact. Periorbital areas with no swelling, redness, or edema. ENT: Mucous membranes moist. Respiratory: No increased work of breathing, no retractions or nasal flaring. Skin: Warm, dry with normal turgor. Normal color with no rashes, no lesions, and no evidence of cellulitis. 23:34 Musculoskeletal/extremity: Circulation is intact in all extremities. Pulses: are normal with no appreciated deficits, Sensation intact. Joints: the left wrist displays pain at rest, painful range of motion, swelling, tenderness, Vital Signs: 23:30 BP 127 / 65; Pulse 88; Resp 18; Temp 98.1; Pulse Ox 100% ; Weight 89.81 kg; Height 5 cp4 ft. 2 in. ; Pain 8; 04/25 01:11 BP 120 / 70; Pulse 83; Resp 16; Pulse Ox 100% on R/A; al5 04/24 23:30 Body Mass Index 36.21 (89.81 kg, 157.48 cm) cp4 04/24 23:30 Pain Scale: Adult cp4 MDM: 04/24 23:15 Medical Screening Exam initiated sb4 23:34 Differential diagnosis: contusion, fracture, sprain, strain. sb4 04/25 00:03 Independent interpretation of the following test(s) in the Emergency Department X-Ray: sb4 My interpretation is Left x-ray images, possible buckle fracture of distal radius. 00:11 Data reviewed: vital signs, nurses notes, radiologic studies, I have discussed the sb4 patient's presentation/case with the attending Emergency Department Physician; and as a result, I will discharge patient. Counseling: I had a detailed discussion with the patient and/or guardian regarding the historical points, exam findings, and any diagnostic results supporting the discharge/admit diagnosis, radiology results, the need for outpatient follow up, a orthopedic surgeon, to return to the emergency department if symptoms worsen or persist or if there are any questions or concerns that arise at home. 00:15 External Records Reviewed: [facility] reviewed, no active prescriptions. sb4 04/24 23:30 Order name: Wrist Left (3 View) XRAY sb4 04/25 00:11 Order name: Volar Wrist Splint; Complete Time: 00:57 sb4 Administered Medications: 00:56 Drug: HYDROcodone-acetaminophen PO 5 mg-325 mg 1 tabs PO once Route: PO; vc1 00:57 Follow up: Response: No adverse reaction; Medication administered at discharge. al5 00:56 Drug: Ibuprofen PO 800 mg PO once Route: PO; vc1 00:57 Follow up: Response: No adverse reaction; Medication administered at discharge. al5 Disposition: 06:25 Co-signature as Attending Physician, Jose Mancia MD I agree with the assessment sp4 and plan of care. I reviewed the patient's care provided by the Advanced Practice Provider and agree with the diagnosis and treatment plan. Disposition Summary: 04/25/25 00:12 Discharge Ordered Notes: Location: Home sb4 Problem: new sb4 Symptoms: have improved sb4 Condition: Stable sb4 Diagnosis - Acute buckle fracture of left distal radius sb4 Followup: sb4 - With: Arden Colin MD - When: 1 week - Reason: Recheck today's complaints, Re-evaluation by your physician Discharge Instructions: - Discharge Summary Sheet sb4 - Radial Fracture sb4 - Wrist Fracture Treated With Immobilization, [id number] sb4 Forms: - Patient Portal Instructions sb4 - Leadership Thank You Letter sb4 Prescriptions: - Ibuprofen 800 mg Oral Tablet - take 1 tablet ORAL route every 8 hours As needed take with food; 30 tablet; sb4 Refills: 0, Product Selection Permitted - Tramadol 50 mg Oral Tablet - take 1 tablet ORAL route every 8 hours as needed; 12 tablet; Refills: 0, sb4 Product Selection Permitted Signatures: Dispatcher [employer] EDJeanna Burgos RN RN vc1 Candace Baum PAPatiC PAMitchel sb4 Jose Mancia MD MD sp4 Dariana Villasenor cp4 Kinza Anderson RN al5 Corrections: (The following items were deleted from the chart) 04/24 23:30 23:30 Wrist Left 3 View+RAD.RAD.BRZ ordered. EDMS EDMS
--- NOTE | 2025-04-25 00:12 | ER ---
Nurse's Notes [facility] Name: Hilaria Rogers Age: 24 yrs Sex: Female : 2000 Arrival Date: 04/24/2025 Time: 23:10 Bed IW1 Private MD: Diagnosis: Acute buckle fracture of left distal radius Presentation: 04/24 23:28 Chief complaint: Patient states: left wrist pain from slipping getting out of the cp4 shower. Coronavirus screen: Client denies travel out of the [place] in the last 14 days. At this time, the client does not indicate any symptoms associated with coronavirus-19. Ebola Screen: Patient negative for fever greater than or equal to 101.5 degrees Fahrenheit, and additional compatible Ebola Virus Disease symptoms Patient denies exposure to infectious person. Patient denies travel to an Ebola-affected area in the 21 days before illness onset. No symptoms or risks identified at this time. Initial Sepsis Screen: Does the patient meet any 2 criteria? No. Patient's initial sepsis screen is negative. Does the patient have a suspected source of infection? No. Patient's initial sepsis screen is negative. Risk Assessment: Do you want to hurt yourself or someone else? Patient reports no desire to harm self or others. Onset of symptoms was April 24, 2025. 23:28 Method Of Arrival: Ambulatory cp4 23:28 Acuity: CONCHITA 4 cp4 Triage Assessment: 23:29 General: Appears in no apparent distress. uncomfortable, Behavior is calm, cooperative, cp4 appropriate for age. Pain: Complains of pain in left hand Pain does not radiate. Pain currently is 8 out of 10 on a pain scale. 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 - Infectious Disease History:: Denies. - Social history:: Smoking status: Reported history of juuling and/or vaping. Screenin/08 01:09 [facility] ED Fall Risk Assessment (Adult) History of falling in the last 3 months, al5 including since admission Yes- single mechanical fall (1 pt) Confusion or Disorientation No (0 pts) Intoxicated or Sedated No (0 pts) Impaired Gait No (0 pts) Mobility Assist Device Used No (0 pt) Altered Elimination No (0 pt) Score/Fall Risk Level 0 - 2 = Low Risk Oriented to surroundings, Maintained a safe environment, Hourly rounding (assess needs \T\ fall precautionary measures) done. Abuse screen: Denies threats or abuse. Denies injuries from another. Nutritional screening: No deficits noted. Tuberculosis screening: No symptoms or risk factors identified. Assessment: 01:10 General: Appears in no apparent distress. comfortable, Behavior is calm, cooperative. al5 Pain: Complains of pain in left wrist. Neuro: Level of Consciousness is awake, alert, obeys commands, Oriented to person, place, time, situation. Cardiovascular: Capillary refill < 3 seconds Patient's skin is warm and dry. Respiratory: Airway is patent Respiratory effort is even, unlabored, Respiratory pattern is regular, symmetrical. GI: No signs and/or symptoms were reported involving the gastrointestinal system. : No signs and/or symptoms were reported regarding the genitourinary system. EENT: No signs and/or symptoms were reported regarding the EENT system. Derm: Skin is intact, is healthy with good turgor, Skin is pink, warm \T\ dry. normal. Musculoskeletal: Circulation, motion, and sensation intact. Range of motion: limited in left wrist Reports pain in left wrist. Vital Signs: 04/24 23:30 BP 127 / 65; Pulse 88; Resp 18; Temp 98.1; Pulse Ox 100% ; Weight 89.81 kg; Height 5 cp4 ft. 2 in. ; Pain 02/25; 04/25 01:11 BP 120 / 70; Pulse 83; Resp 16; Pulse Ox 100% on R/A; al5 04/24 23:30 Body Mass Index 36.21 (89.81 kg, 157.48 cm) cp4 04/24 23:30 Pain Scale: Adult cp4 ED Course: 04/24 23:11 Patient arrived in ED. mr 23:14 Cand[facility]. sb4 23:14 Jose Mancia MD is Attending Physician. sb4 23:29 Triage completed. cp4 23:29 Arm band placed on right wrist. Patient placed in waiting room. cp4 23:56 Wrist Left (3 View) XRAY In Process Unspecified. EDMS 04/25 00:11 Arden Colin MD is Referral Physician. sb4 01:05 Orthoglass splint: Volar splint applied on left arm Sling applied to left arm. oe 01:10 Patient has correct armband on for positive identification. Provided Education on: al5 discharge follow up, medications. 01:10 No provider procedures requiring assistance completed. Patient did not have IV access al5 during this emergency room visit. Administered Medications: 00:56 Drug: HYDROcodone-acetaminophen PO 5 mg-325 mg 1 tabs PO once Route: PO; vc1 00:57 Follow up: Response: No adverse reaction; Medication administered at discharge. al5 00:56 Drug: Ibuprofen PO 800 mg PO once Route: PO; vc1 00:57 Follow up: Response: No adverse reaction; Medication administered at discharge. al5 Medication: 01:10 VIS not applicable for this client. al5 Outcome: 00:12 Discharge ordered by . sb4 01:11 Discharged to home ambulatory, with significant other, al5 01:11 Condition: good 01:11 Discharge instructions given to patient, Instructed on discharge instructions, follow up and referral plans. medication usage, Demonstrated understanding of instructions, follow-up care, medications, Prescriptions given X 2, 01:11 Patient left the ED. al5 Signatures: Dispatcher [employer] EDNY Luzma Nance, Reg Reg mr Loi Chavezlando Jeanna Renae RN RN vc1 Candace Baum PAMitchel PAMitchel sumner4 Dariana Villasenor cp4 Kinza Anderson RN RN al5
[2025-04-25] MEDS ORDERED: HYDROCODONE/APAP 5/325 MG TAB ONE (00:53)
[2025-04-25] MEDS ORDERED: IBUPROFEN 400 MG TAB ONE (00:53)
[2025-04-25 01:16] VITALS: TEMP 98.1; O2SAT 100
[2025-04-25 01:17] VITALS: BP 120/70
--- NOTE | 2025-04-26 12:15 | RAD REPORT ---
EXAMINATION: XR LEFT WRIST CLINICAL INDICATION: PAIN TECHNIQUE: Multiple projections of the left wrist were obtained. COMPARISON: No prior exam. FINDINGS: Tiny bony density is seen to the ulnar styloid suggests age-indeterminate avulsion. Otherw ise, no bone or joint abnormality detected.
== END 2025-04-25 01:11 | disposition home or self-care (01) ==
LOC: ER 23:10
DX: S52.522A Torus fracture of lower end of left radius, initial encounter for closed fracture (principal); W18.2XXA Fall in (into) shower or empty bathtub, initial encounter
CPT/HCPCS: 99283

== ENCOUNTER 2025-05-02 20:50 | Emergency (ER) | payer SELFPAY ==
--- OUTSIDE RECORDS SUMMARY | 2025-05-02 20:58 | XMS REPORT | Continuity of Care Document ---
Author Name Unknown Address [address] [facility] [place] [address] Organization [facility] [place] Address [address] [facility] [place] [address] Care Team Providers Care Associate Professor Of Music Name Role Phone FREDERICK RICHARDSON Primary Care Physician Unavailab Brittnee Acosta Attending Clinician UnavailMADHAVI Garnett Attending Clinician Unavailable MERT MILES Attending Clinician Unavailable MERT MILES Attending Clinician Unavailable PHILL ROMAN Attending Clinician Unavailjas Roman MD, Phill Nash Attending Clinician [phone] Luis Burciaga Attending Clinician UnavailSUZY Malcolm Attending Clinician Unavailable Suzy Uriostegui MD Attending Clinician [phone] Effie Marquez Attending Clinician Unava ANTONIA Corbett Attending Clinician Unavailable Antonia Pike MD Attending Clinician [phone] Ghanshyam Chavez Attending Clinician Tierney vilma Nurse, Osvaldo Evangelista Attending Clinician Unavaila Frederick Herrera MD Attending Clinician [phone] FREDERICK RICHARDSON Attending Clinician Unavailable AR RICHARDSON Attending Clinician Unavailable Ar Richardson MD Attending Clinician [phone] Kishor Bishop Attending Clinician Unavailable ELINA ROME Attending Clinician Unavailable Madhavi Roman PA-C Attending Clinician [phone] Dottie Chavez Attending Clinician Unavailabl marlene MIRELES, Nathalia Cagle Attending Clinician + [phone] Ny Khan MD Attending Clinician [phone] Olivier SHAREPOINT DESIGNER DEVELOPER, Aneta Esparza Attending Clinician + [phone] Unknown, Attending Attending Clinician Unavailab miah LOPEZ, ATTENDING Attending Clinician Unavailab Pearl Petersen Attending Clinician Unavailjas Noble RN, Tashia Rae Attending Clinician Unavailab miah Last SHAREPOINT DESIGNER DEVELOPER, Lily Hummel Attending Clinician [phone] Maryellen PICKERING, Lydia Hilton Attending Clinician + [phone] Doctor Unassigned, [place] Attending Clinician Liberty Thomas Attending Clinician LIBERTY CAMP Attending Clinician Unavailable Wiliam ELECTROSLAG WELDING MACHINE OPERATOR, Antonia Attending Clinician + [phone] Dagoberto ELECTROSLAG WELDING MACHINE OPERATOR, Kassidy Cagle Attending Clinician [phone] Rajan PICKERING, Elina Pandey Attending Clinici an KASSIDY ARENAS Attending Clinician Unavailab REJI Bose Attending Clinician Unavailable Ivet PICKERING, Aiden Conde Attending Clinician [phone] SOSA RASMUSSEN Attending Clinician Unavailable Zacarias PICKERING, Sosa Attending Clinician [phone] Santiago COLE, Sandra Hilton Attending Clinician Unavaila Ashley Schafer DO Attending Clinician [phone] Orquidea PICKERING, Mike Jaffe Attending Clinician +[phone] Shahnaz ELECTROSLAG WELDING MACHINE OPERATOR, Sujata Attending Clinician SUZY URIOSTEGUI Admitting Clinician Unavailable [place] KHAN Admitting Clinician Unavailable Brittnee Ramirez Admitting Clinician UnavailElina Chavez Admitting Clinician Unavail able PIHLL ROMAN Admitting Clinician UnavailPhill Garnett MD Admitting Clinician [phone] Luis Burciaga Admitting Clinician UnavailSuzy Malcolm MD Admitting Clinician [phone] Emily Artis Admitting Clinician UnavailANTONIA Samaniego Admitting Clinician Unavailable Effie Solitario Admitting Clinician Gregory ilisha Physician, No Primary or Family Admitting Clinic lizzeth Unavailable Dottie Chavez Admitting Clinician UnavailNy Frederick MD Admitting Clinician [phone] Pearl Chavez Admitting Clinician UnavailSOSA Bae Admitting Clinician Unavailable Payers Payer Name Policy Type Policy Number Effective Date Expirati on Date Source [facility] [id number] 2023 00:00:00 [facility] [id number] 00:00:00 [facility] [id number] 2023 00:00:00 Problems Condition Name Condition Details Condition Category Status Onset Date Resolution Date Last Treatment Date Treating Clinician Comments Source Acute appendicit is Acute appendicit is Disease Active 2022-07 0 00:00: 00 [facility] Anxiety Anxiety Disease Active [facility] Depression [facility] Allergies, Adverse Reactions, Alerts Allergy Name Allergy Type Status Severity Reaction(s) Onset Date Inactive Date Treating Clinician Comments Source MARCUS ACID- THROAT SWELLING DA Active SV 08-03 00:00: 00 [facility] No Known Allergie s DA Active U 11-23 00:00: 00 [facility] No Known Allergie s DA Active U 11-23 00:00: 00 [facility] Malic Acid Drug Allergy Active Swelling 12-24 00:00: 00 [facility] MALIC ACID DRUG INGREDI Active High Swelling 12-24 00:00: 00 [facility] MALIC ACID DA Active SV TONGUE SWELLING, THROAT CLOSING 12-24 00:00: 00 [facility] SOUR MOREAU DRUG INGREDI Active Anaphylaxis 11-15 00:00: 00 [facility] Sour Moreau Propensi ty to adverse reaction s Active Anaphylaxis 11-15 00:00: 00 Sour flavoring on all candy [facility] Social History Social Habit Start Date Stop Date Quantity Comments Source ASSERTION 2022-02-27 00:00:00 [facility] Sexual orientation U [facility] Alcohol intake 2023-05-03 00:00:00 2023-05-03 00:00:00 Ex-drinker (finding) [facility] Exposure to SARS-CoV-2 (event) 2022-10-07 00:00:00 2022-10-17 15:17:00 Not sure [facility] History of Social function 2022-02-25 00:00:00 2022-02-25 00:00:00 [facility] Tobacco use and exposure 2022-02-25 00:00:00 2022-02-25 00:00:00 Smokeless tobacco non-user [facility] Sex Assigned At 2000 00:00:00 2000 00:00:00 [facility] Smoking Status Start Date Stop Date Source Never smoked tobacco [facility] Medications Ordered Medication Name Filled Medication Name Start Date Stop Date Current Medication? Ordering Clinician Indication Dosage Frequency Signature (SIG) Comments Components Source ibuprofen (IBU) tablet 400 mg 2022-07 15:00: 00 Yes 400mg 400 mg, Oral, Q8H, First dose on Wed05/03/23 at 1000, Until Discontinu ed, Routine [facility] SERTraline 25 mg tablet 2022-07 12:24: 34 Yes 25mg Take 1 tablet by mouth in the morning. [facility] ketorolac (TORADOL) injection 30 mg 2022-07 04:00: 00 05-03 03:38 :00 No 30mg 30 mg, Slow IV Push, ONCE, 1 dose, On Wed05/02/23 at 2300, Routine [facility] ibuprofen 400 mg tablet 2022-07 00:00: 00 05-11 04:59 :00 No [id number] 400mg Take 1 tablet by mouth every 8 (eight) hours as needed for Pain (scale 4-6) for up to 7 days. [facility] traMADoL 50 mg tablet 2022-07 00:00: 00 05-11 04:59 :00 No [id number] 50mg Take 1 tablet by mouth every 6 (six) hours as needed for Pain (scale 7-10) for up to 7 days. Indication s: acute pain [facility] enoxaparin (LOVENOX) injection 40 mg 2022-07 22:00: 00 Yes 40mg 40 mg, Subcutaneo us, DAILY, First dose on Wed05/02/23 at 1700, Until Discontinu ed, Routine [facility] lactated ringers IV infusion 1,000 mL 2022-07 17:15: 00 Yes 1000mL at 100 mL/hr, 1,000 mL, IV Infusion, CONTINUOUS , Starting on Wed05/02/23 at 1215, Until Discontinu ed, Routine, PACU [facility] HYDROcodone -acetaminop hen (NORCO 5) 5-325 mg tablet 1 tablet 2022-07 17:15: 00 05-02 17:48 :00 No 1{tbl} 1 tablet, Oral, ONCE, 1 dose, On Wed05/02/23 at 1215, Routine, PACU [facility] FENTanyl PF (SUBLIMAZE (PF)) injection 25 mcg 2022-07 17:13: 49 05-02 18:23 :47 No 25ug 25 mcg, Slow IV Push, Q5MIN PRN, 4 doses, Starting on Wed05/02/23 at 1213, Until Wed05/02/23 at 1323, Routine, Pain (scale 4-6), PACU [facility] HYDROcodone -acetaminop hen (NORCO 5) 5-325 mg tablet 1 tablet 2022-07 16:58: 20 Yes 1{tbl} 1 tablet, Oral, Q4HPRN, Starting on Wed05/02/23 at 1158, Until Discontinu ed, Routine, Pain (scale 4-6) [facility] sodium chloride 0.9 % irrigation solution 2022-07 16:49: 00 05-02 17:12 :46 No PRN, Starting on Wed05/02/23 at 1149, Until Wed05/02/23 at 1212, Intra-op [facility] bupivacaine (preserv free) (SENSORCAIN E MPF) 0.25 % (2.5 mg/mL) injection 2022-07 16:35: 00 05-02 17:12 :46 No PRN, Starting on Wed05/02/23 at 1135, Until Wed05/02/23 at 1212, Routine, Intra-op [facility] NaCl 0.9% (NS) IV infusion 1,000 mL 2022-07 09:30: 00 05-02 16:57 :40 No 1000mL at 125 mL/hr, IV Infusion, CONTINUOUS , Starting on Wed05/02/23 at 0430, Until Wed05/02/23 at 1157, Routine [facility] ondansetron (ZOFRAN (PF)) injection 4 mg 2022-07 09:23: 00 Yes 4mg 4 mg, Slow IV Push, Q4HPRN, Starting on Wed05/02/23 at 0423, Until Discontinu ed, Routine, Nausea and Vomiting (N/V) [facility] FENTanyl PF (SUBLIMAZE (PF)) injection 12.5 mcg 2022-07 09:22: 41 05-02 16:58 :38 No 12.5ug 12.5 mcg, Slow IV Push, Q4HPRN, Starting on Wed05/02/23 at 0422, Until Wed05/02/23 at 1158, Routine, Pain (scale 7-10) [facility] acetaminoph en (TYLENOL) tablet 650 mg 2022-07 09:22: 29 Yes 650mg 650 mg, Oral, Q6HPRN, Starting on Wed05/02/23 at 0422, Until Discontinu ed, Routine, Pain (scale 1-3) [facility] FLUTICASONE PROPIONATE 50 mcg/actuati on nasal spray 2020-07 00:00: 00 05-02 00:00 :00 No [id number] SPRAY 1 SPRAY INTO EACH NOSTRIL EVERY DAY [facility] EPINEPHrine 0.3 mg/0.3 mL injection 2019-07 00:00: 00 Yes [id number] INJECT 0.3 ML BY INTRAMUSCU LAR ROUTE ONCE NOW FOR 1 DOSE. [facility] Immunizations Ordered Immunization Name Filled Immunization Name Date Status Comments Source DTP 2023-05-02 11:24:00 Completed [facility] HIB 3 Dose Schedule 2023-05-02 11:24:00 Completed [facility] HEPATITIS A 2023-05-02 11:24:00 Completed [facility] Hep B, Adol or Pedi Dosage 2023-05-02 11:24:00 Completed [facility] MMR 2023-05-02 11:24:00 Completed [facility] Polio (IPV/OPV) 2023-05-02 11:24:00 Completed [facility] Meningococcal Polysaccharide (groups A, C, Y and W-135) conjugate vaccine (MCV4P) 2023-05-02 11:24:00 Completed [facility] Pneumococcal 7 Conjugate, PCV7 (Prevnar7) 2023-05-02 11:24:00 Completed [facility] DTP 2023-05-02 03:19:00 Completed [facility] HIB 3 Dose Schedule 2023-05-02 03:19:00 Completed [facility] HEPATITIS A 2023-05-02 03:19:00 Completed [facility] Hep B, Adol or Pedi Dosage 2023-05-02 03:19:00 Completed [facility] MMR 2023-05-02 03:19:00 Completed [facility] Polio (IPV/OPV) 2023-05-02 03:19:00 Completed [facility] Meningococcal Polysaccharide (groups A, C, Y and W-135) conjugate vaccine (MCV4P) 2023-05-02 03:19:00 Completed [facility] Pneumococcal 7 Conjugate, PCV7 (Prevnar7) 2023-05-02 03:19:00 Completed [facility] Meningococcal Polysaccharide (groups A, C, Y and W-135) conjugate vaccine (MCV4P) 2019-02-23 00:00:00 Completed [facility] Meningococcal Polysaccharide (groups A, C, Y and W-135) conjugate vaccine (MCV4P) 2019-02-23 00:00:00 Completed [facility] DTP 2005-01-21 00:00:00 Completed [facility] HIB 3 Dose Schedule 2005-01-21 00:00:00 Completed [facility] HEPATITIS A 2005-01-21 00:00:00 Completed [facility] Pneumococcal 7 Conjugate, PCV7 (Prevnar7) 2005-01-21 00:00:00 Completed [facility] DTP 2005-01-21 00:00:00 Completed [facility] HIB 3 Dose Schedule 2005-01-21 00:00:00 Completed [facility] HEPATITIS A 2005-01-21 00:00:00 Completed [facility] Pneumococcal 7 Conjugate, PCV7 (Prevnar7) 2005-01-21 00:00:00 Completed [facility] MMR 2003-12-25 00:00:00 Completed [facility] Polio (IPV/OPV) 2003-12-25 00:00:00 Completed [facility] Pneumococcal 7 Conjugate, PCV7 (Prevnar7) 2003-12-25 00:00:00 Completed [facility] MMR 2003-12-25 00:00:00 Completed [facility] Polio (IPV/OPV) 2003-12-25 00:00:00 Completed [facility] Pneumococcal 7 Conjugate, PCV7 (Prevnar7) 2003-12-25 00:00:00 Completed [facility] DTP 2003-06-19 00:00:00 Completed [facility] HIB 3 Dose Schedule 2003-06-19 00:00:00 Completed [facility] Hep B, Adol or Pedi Dosage 2003-06-19 00:00:00 Completed [facility] Polio (IPV/OPV) 2003-06-19 00:00:00 Completed [facility] DTP 2003-06-19 00:00:00 Completed [facility] HIB 3 Dose Schedule 2003-06-19 00:00:00 Completed [facility] Hep B, Adol or Pedi Dosage 2003-06-19 00:00:00 Completed [facility] Polio (IPV/OPV) 2003-06-19 00:00:00 Completed [facility] Hep B, Adol or Pedi Dosage 2002 00:00:00 Completed [facility] Hep B, Adol or Pedi Dosage 2002 00:00:00 Completed [facility] Vital Signs Vital Name Observation Time Observation Value Comments S ource Systolic blood pressure 2023-05-03 12:17:00 101 mm[Hg] Pool o f [facility] Diastolic blood pressure 2023-05-03 12:17:00 59 mm[Hg] Pool o f [facility] Heart rate 2023-05-03 12:17:00 68 /[facility] Body temperature 2023-05-03 12:17:00 36.22 [facility] Respiratory rate 2023-05-03 12:17:00 18 /min [facility] Oxygen saturation in Arterial blood by Pulse oximetry 2023-05-03 12:17:00 96 /min [facility] Body weight 2023-05-03 08:19:00 70.126 kg [facility] BMI 2023-05-03 08:19:00 28.28 kg/m2 [facility] Body height 2023-05-02 08:25:00 157.5 cm [facility] Systolic blood pressure 2023-05-02 18:25:00 97 mm[Hg] [facility] Diastolic blood pressure 2023-05-02 18:25:00 60 mm[Hg] [facility] Heart rate 2023-05-02 18:25:00 59 /min [facility] Body temperature 2023-05-02 18:25:00 36.11 [facility] Respiratory rate 2023-05-02 18:25:00 18 /min [facility] Oxygen saturation in Arterial blood by Pulse oximetry 2023-05-02 18:25:00 100 /min [facility] Body height 2023-05-02 08:25:00 157.5 cm [facility] Body weight 2023-05-02 08:25:00 69.037 kg [facility] BMI 2023-05-02 08:25:00 28.28 kg/m2 [facility] Systolic blood pressure 2022-10-17 20:18:00 99 mm[Hg] [facility] Diastolic blood pressure 2022-10-17 20:18:00 63 mm[Hg] [facility] Body temperature 2022-10-17 20:18:00 36.78 [facility] Respiratory rate 2022-10-17 20:18:00 16 /min [facility] Heart rate 2022-10-17 19:56:00 92 /min [facility] Body height 2022-10-17 19:56:00 157.5 cm [facility] Body weight 2022-10-17 19:56:00 71.668 kg [facility] BMI 2022-10-17 19:56:00 28.90 kg/m2 [facility] Oxygen saturation in Arterial blood by Pulse oximetry 2022-10-17 19:56:00 99 /min [facility] Procedures Procedure Date / Time Performed Performing Clinician Source CBC WITH DIFF 2023-05-03 11:31:00 [facility] CBC WITH DIFF 2023-05-03 11:31:00 [facility] LAPAROSCOPIC APPENDECTOMY 2023-05-02 15:50:00 Miles, [facility] LAPAROSCOPIC APPENDECTOMY 2023-05-02 15:50:00 Miles, [facility] POCT TEST 2023-05-02 15:31:00 Miles, [facility] POCT TEST 2023-05-02 15:31:00 Miles, [facility] MAGNESIUM 2023-05-02 10:15:00 Phill Roman [facility] HEPATIC FUNCTION PANEL (39919) (ALB,T.PRO,BILI T,BU/BC,ALT,AST,ALK PHOS) 2023-05-02 10:15:00 Phill Roman [facility] BASIC METABOLIC PANEL (NA, K, CL, CO2, GLUCOSE, BUN, CREATININE, CA) 2023-05-02 10:15:00 Phill Roman [facility] CBC WITH DIFF 2023-05-02 10:15:00 [facility] 2023-05-02 10:15:00 Phill Roman [facility] HEPATIC FUNCTION PANEL ([id number]) (ALB,T.PRO,BILI T,BU/BC,ALT,AST,ALK PHOS) 2023-05-02 10:15:00 Phill Roman [facility] BASIC METABOLIC PANEL (NA, K, CL, CO2, GLUCOSE, BUN, CREATININE, CA) 2023-05-02 10:15:00 Phill Roman [facility] CBC WITH DIFF 2023-05-02 10:15:00 Phill Roman [facility] [id number] 2022-10-31 00:00:00 [facility] [id number] 2022-10-30 00:00:00 [facility] [id number] 2021-03-26 00:00:00 [facility] [id number] 2021-03-26 00:00:00 [facility] Encounters Start Date/Time End Date/Time Encounter Type Admission Type Attending Clinicians Care Facility Care Department Encounter ID Source 2022-10-17 17:56:29 Outpatient X [facility] [id number] [facility] 2021-05-19 04:10:53 Outpatient X [facility] [id number] [facility] 2021-05-19 04:10:48 Emergency [facility] [id number] [facility] 2021-05-18 12:59:52 Emergency [facility] [id number] [facility] 2021-05-18 03:01:47 Emergency [facility] [id number] [facility] 2020-11-23 00:57:29 Inpatient [place] Brittnee HCACL HCACL [id number] [facility] 2020-10-05 01:43:54 Inpatient HC[facility]L [facility]L [id number] [facility] 2020-08-22 20:18:00 Inpatient [facility]L KAELA [id number] [facility] 2020-02-15 22:49:00 Inpatient [facility] KAELA [id number] [facility] 2023-08-23 13:00:00 2023-08-23 13:00:00 Outpatient MADHAVI MCNAIR [facility] [id number] [facility] 2023-05-24 13:00:00 2023-05-24 13:00:00 Outpatient MERT HOUSE [place] [facility] [id number] [facility] 2023-05-02 03:19:00 2023-05-03 12:20:00 Outpatient U PHILL ROMAN [facility] OLAYINKA [id number] [facility] 2023-05-02 03:19:00 2023-05-03 12:20:00 Hospital Encounter Phill Roman. [facility] [id number] 350.1.13.10 [id number] [id number] [facility] 2023-05-02 11:24:00 2023-05-02 13:33:00 Surgery Mert Miles [facility] [id number] 350.1.13.10 [id number] [id number] [facility] 2022-10-30 19:17:00 2022-11-02 18:53:00 Inpatient EL Luis Burciaga HCACL OBPP [id number] [facility] 2022-10-17 14:59:00 2022-10-17 17:00:00 Outpatient X SUZY URIOSTEGUI [facility] [id number] [facility] 2022-10-17 14:59:00 2022-10-17 17:00:00 Emergency AdSuzy diaz [facility] [id number] 350.1.13.10 [id number] [id number] [facility] 2022-09-26 22:39:00 2022-09-27 17:00:00 Inpatient EM Maximashleigh Luis HCACL OBANTE [id number] [facility] 2022-09-07 23:59:00 2022-09-14 10:45:00 Inpatient EM Maximashleigh Luis [facility]ACL OBANTE [id number] [facility] 2022-08-03 15:04:00 2022-08-03 16:59:00 Emergency EM Effie Ramsay HCACL OLGA [id number] [facility] 2022-03-20 14:10:00 2022-03-20 14:10:00 Outpatient ANTONIA CAPPS [facility] [id number] [facility] 2022-03-20 00:00:00 2022-03-20 00:00:00 Telephone Antonia [facility] [id number] 350.1.13.10 [id number] [id number] [facility] 2022-03-16 14:10:00 2022-03-16 14:10:00 Outpatient ANTONIA CAPPS [facility] [id number] [facility] 2022-03-13 13:30:00 2022-03-13 13:30:00 Outpatient ANTONIA CAPPS [facility] [id number] [facility] 2022-03-13 11:10:00 2022-03-13 11:10:00 Outpatient R ANTONIA PIKE [facility] [id number] [facility] 2022-03-06 15:06:00 2022-03-06 16:12:00 Emergency EM Ghanshyam Chavez HCACL AERS [id number] [facility] 2022-03-04 00:00:00 2022-03-04 00:00:00 Telephone Antonia Pike [facility] 1.840.114 350.1.13.10 4.2.7.2.686 [id number] [facility] 2022-03-03 00:00:00 2022-03-03 00:00:00 Telephone Antonia Pike [facility] 1.840.114 350.1.13.10 [id number] [id number] [facility] 2022-03-02 17:43:24 2022-03-02 23:59:00 Outpatient R ANTONIA PIKE [facility] [id number] [facility] 2022-03-02 17:43:24 2022-03-02 23:59:00 Outpatient R ANTONIA PIKE [facility] [id number] [facility] 2022-03-02 17:30:00 2022-03-02 23:59:00 Hospital Encounter Antonia Pike [facility] 1.114 350.1.13.10 4.2.7.2.686 [id number] [facility] 2022-02-26 14:50:00 2022-02-26 15:10:00 Nurse Visit Nurse, Frederick Miller [facility] 1.114 350.1.13.10 [id number] [id number] [facility] 2022-02-26 14:50:00 2022-02-26 14:50:00 Outpatient FREDERICK CORRAL [facility] [id number] [facility] 2022-02-25 14:45:00 2022-02-25 23:59:00 Outpatient R ANTONIA PIKE [facility] [id number] [facility] 2022-02-25 14:45:00 2022-02-25 23:59:00 Hospital Encounter Antonia Pike [facility] 1.114 350.1.13.10 4.2.7.2.686 [id number] [facility] 2022-02-25 13:50:00 2022-02-25 15:29:57 Outpatient R SHAHZAD ANTONIA [facility] [id number] [facility] 2022-02-25 13:50:00 2022-02-25 15:29:57 Office Visit Antonia Pike [facility] 1.114 350.1.13.10 [id number] [id number] [facility] 2022-02-23 15:50:00 2022-02-23 15:50:00 Outpatient R PIKE, ANTONIA [facility] [id number] [facility] 2022-02-12 21:31:00 2022-02-12 22:34:00 Emergency X [facility] [id number] [facility] 2022-02-12 21:31:00 2022-02-12 22:34:00 Emergency Debra [facility] 1..114 350.1.13.10 4.2.7.2.686 [id number] [facility] [facility] 2021-11-11 00:16:00 2021-11-11 00:55:00 Emergency EM Kishor Bishop [facility]ACL AERS [id number] 36 [facility] 2021-11-04 15:30:00 2021-11-04 15:30:00 Outpatient R ELINA ROME [facility] [id number] [facility] 2021-08-08 22:06:00 2021-08-08 22:30:00 Emergency EM Ghanshyam Chavez [facility] AERS [id number] 00 [facility] 2021-06-13 00:00:00 2021-06-13 00:00:00 Refill [facility] 1..114 350.1.13.10 4.2.7.2.686 [id number] [facility] 2021-05-12 13:41:54 2021-05-12 14:13:40 Office Visit Madhavi Roman [facility] 1..114 350.1.13.10 4.2.7.2.686 [id number] [facility] 2021-05-12 13:30:00 2021-05-12 13:30:00 Outpatient MADHAVI MCNAIR [facility] [id number] [facility] 2021-03-25 14:56:00 2021-03-28 15:32:00 Inpatient EL Luis Burciaga HCACL OBPP [id number] 40 [facility] 2021-03-12 21:07:00 2021-03-13 01:05:00 Emergency EM Effie Solitario HCACL OLGA [id number] 24 [facility] 2021-03-01 05:33:00 2021-03-01 09:00:00 Emergency EM Luis Burciaga [facility] OLGA [id number] 85 [facility] 2021-02-17 15:17:00 2021-02-17 16:47:00 Emergency EM Effie Solitario [facility] OLGA [id number] 82 [facility] 2021-02-12 19:14:00 2021-02-12 22:29:00 Emergency EM Effie Solitario [facility] OLGA [id number] 18 [facility] 2021-01-29 02:30:00 2021-01-29 03:50:00 Emergency EM Dottie Chavez [facility]ACL OLGA [id number] 33 [facility] 2021-01-13 01:18:00 2021-01-13 02:30:00 Emergency [facility] 1.2.840.114 350.1.13.10 4.2.7.2.686 [id number] 2021-01-13 01:18:00 2021-01-13 02:30:00 Emergency Miladis Nathalia [facility] 1.2.840.114 350.1.13.10 4.2.7.2.686 [id number] [facility] 2021-01-11 17:51:24 2021-01-11 18:25:45 Urgent Care Aneta Aguayo [facility]ris[facility] 1.840.114 350.1.13.10 4.2.7.2.686 [id number] 2021-01-11 17:51:24 2021-01-11 18:25:45 Urgent Care Aneta Aguayo Unknown, Attending [facility] 1.2840.114 350.1.13.10 4.2.7.2.686 [id number] [facility] 2021-01-11 18:00:00 2021-01-11 18:00:00 Outpatient R UNKNOWN, ATTENDING [facility] [id number] [facility] 2020-12-25 15:08:00 2020-12-25 18:26:00 Emergency EM ChavezPearl [facility]ACL OLGA [id number] 03 [facility] 2020-11-23 00:02:00 2020-11-23 02:58:00 Emergency EM Ashley Brittnee [facility]ACL OLGA [id number] 52 [facility] 2020-11-01 00:00:00 2020-11-01 00:00:00 Letter (Out) [facility] 1.2840.114 350.1.13.10 4.2.7.2.686 [id number] 2020-11-01 00:00:00 2020-11-01 00:00:00 Letter (Out) [facility] 1.2840.114 350.1.13.10 4.2.7.2.686 [id number] [facility] 2020-10-30 22:11:00 2020-10-31 00:46:00 Emergency Lily Last [facility] 1.2840.114 350.1.13.10 4.2.7.2.686 [id number] 084 [id number] 2020-10-30 22:11:00 2020-10-31 00:46:00 Emergency Lily Last [facility] 1.2.840.114 350.1.13.10 4.2.7.2.686 [id number] [facility] 2020-10-26 18:33:25 2020-10-26 19:03:11 Urgent Care Aneta Aguayo [facility] 1.2.840.114 350.1.13.10 4.2.7.2.686 [id number] 2020-10-26 18:33:25 2020-10-26 19:03:11 Urgent Care Aneta Aguayo Unknown, Attending [facility] 1.2.840.114 350.1.13.10 4.2.7.2.686 [id number] [facility] 2020-10-26 19:00:00 2020-10-26 19:00:00 Outpatient R UNKNOWN, ATTENDING [facility] [id number] [facility] 2020-09-18 23:47:00 2020-09-19 01:47:00 Emergency Lydia Bojorquez [facility] 1.2.840.114 350.1.13.10 4.2.7.2.686 [id number] 084 [id number] [facility] 2020-09-18 23:47:00 2020-09-19 01:47:00 Emergency Lydia Bojorquez [facility] 1.2.840.114 350.1.13.10 4.2.7.2.686 [id number] 084 [id number] 2020-09-18 00:00:00 2020-09-18 00:00:00 Orders Only Doctor Unassigned, [facility] 1.2.840.114 350.1.13.10 4.2.7.2.686 [id number] [id number] [facility] 2020-09-18 00:00:00 2020-09-18 00:00:00 Orders Only Doctor Unassigned, [facility] 1.2.840.114 350.1.13.10 4.2.7.2.686 [id number] [id number] 2020-08-22 15:52:31 2020-08-22 16:12:31 Office Visit Madhavi Roman [facility] 1.2840.114 350.1.13.10 4.2.7.2.686 [id number] [facility] 2020-08-22 15:52:31 2020-08-22 16:12:31 Office Visit Madhavi Roman [facility] 1.0.114 350.1.13.10 4.2.7.2.686 [id number] 2020-08-22 16:00:00 2020-08-22 16:00:00 Outpatient MADHAVI MCNAIR [facility] [id number] [facility] 2020-08-22 13:40:00 2020-08-22 13:40:00 Outpatient MADHAVI MCNAIR [facility] [id number] [facility] 2020-08-13 00:00:00 2020-08-13 00:00:00 Telephone DestinyLiberty colindres [facility] 1..114 350.1.13.10 4.2.7.2.686 [id number] 225 [id number] [facility] 2020-08-09 00:00:00 2020-08-09 00:00:00 Telephone DestinyLiberty colindres [facility] 1.84.114 350.1.13.10 4.2.7.2.686 [id number] [facility] 2020-08-09 00:00:00 2020-08-09 00:00:00 Telephone [place] [facility] 1.114 350.1.13.10 4.2.7.2.686 [id number] [facility] 2020-08-08 14:46:51 2020-08-08 16:51:17 Office Visit [place] [facility] 1.114 350.1.13.10 4.2.7.2.686 [id number] [facility] 2020-08-08 15:00:00 2020-08-08 15:00:00 Outpatient LIBERTY TOMLINSON [facility] [id number] [facility] 2020-07-03 00:00:00 2020-07-03 00:00:00 Orders Only Doctor Unassigned, [facility] 1.114 350.1.13.10 4.2.7.2.686 [id number] [id number] [facility] 2020-06-17 13:35:31 2020-06-17 14:15:17 Office Visit Antonia Swain [facility] 1.114 350.1.13.10 4.2.7.2.686 [id number] [facility] 2020-06-17 13:40:00 2020-06-17 13:40:00 Outpatient ELINA FORMAN [facility] [id number] [facility] 2020-05-18 00:00:00 2020-05-18 00:00:00 Kassidy Morris [facility] 1.114 350.1.13.10 4.2.7.2.686 [id number] 225 [id number] [facility] 2020-05-14 00:00:00 2020-05-14 00:00:00 Telephone Elina Rome [facility] 1..114 350.1.13.10 4.2.7.2.686 [id number] [facility] 2020-05-06 00:00:00 2020-05-06 00:00:00 Telephone Elina Rome [facility] 1.840.114 350.1.13.10 4.2.7.2.686 [id number] [facility] 2020-04-26 15:36:43 2020-04-26 15:56:43 Office Visit Kassidy Arenas [facility] 1..114 350.1.13.10 4.2.7.2.686 [id number] [facility] 2020-04-26 15:40:00 2020-04-26 15:40:00 Outpatient KASSIDY BOONE [facility] [id number] [facility] 2020-04-15 00:00:00 2020-04-15 00:00:00 Refill [place] [facility] 1..114 350.1.13.10 4.2.7.2.686 [id number] [facility] 2020-01-03 14:40:00 2020-01-03 14:40:00 Outpatient REJI EVANS [facility] [id number] [facility] 2019-10-27 00:00:00 2019-10-27 00:00:00 Telephone Aiden Cooney [facility] 1..114 350.1.13.10 4.2.7.2.686 [id number] [facility] 2019-10-18 23:49:28 2019-10-19 02:20:00 Emergency X SOSA RASMUSSEN [facility] ERT [id number] [facility] 2019-10-18 23:49:28 2019-10-19 02:20:00 Emergency ZacariasSosa carrero [facility] 1.2.840.114 350.1.13.10 4.2.7.2.686 [id number] [facility] 2019-10-18 00:00:00 2019-10-18 00:00:00 Nurse Triage [facility] 1.2.840.114 350.1.13.10 4.2.7.2.686 [id number] [id number] [facility] 2019-10-09 00:00:00 2019-10-09 00:00:00 Telephone Aiden Cooney [facility] 1.2.840.114 350.1.13.10 4.2.7.2.686 [id number] [facility] 2019-09-21 13:27:07 2019-09-21 17:09:32 Office Visit [place] [facility] 1.2.840.114 350.1.13.10 4.2.7.2.686 [id number] [facility] 2019-09-21 13:40:00 2019-09-21 13:40:00 Outpatient R LIBERTY CAMP [facility] [id number] [facility] 2019-08-30 15:01:37 2019-08-30 15:11:37 Office Visit Antonia Pike [facility] 1.2.840.114 350.1.13.10 4.2.7.2.686 [id number] 225 [id number] [facility] 2019-08-22 15:33:37 2019-08-22 15:43:37 Office Visit Aiden Cooney [facility] 1.2.840.114 350.1.13.10 4.2.7.2.686 [id number] [facility] 2019-08-21 09:14:31 2019-08-21 10:35:00 Emergency Juan Alberto Ashley Tserign [facility] 1.2.840.114 350.1.13.10 4.2.7.2.686 [id number] 084 [id number] [facility] 2019-08-10 11:01:47 2019-08-10 11:21:47 Nurse Visit NurseOsvaldo Maria P Alvin [facility] 1.2.840.114 350.1.13.10 4.2.7.2.686 [id number] [facility] 2019-08-09 09:22:22 2019-08-09 12:41:52 Office Visit Antonia Pike [facility] 1.2.0.114 350.1.13.10 4.2.7.2.686 [id number] 225 [id number] [facility] 2019-08-09 00:00:00 2019-08-09 00:00:00 Orders Only [facility] 1.2.840.114 350.1.13.10 4.2.7.2.686 [id number] [id number] [facility] 2019-07-28 00:00:00 2019-07-28 00:00:00 Orders Only Doctor Unassigned, [facility] 1.2840.114 350.1.13.10 4.2.7.2.686 [id number] [facility] 2019-03-30 12:55:51 2019-03-30 13:15:51 Office Visit Kassidy Arenas [facility] 1.2.114 350.1.13.10 4.2.7.2.686 [id number] [facility] 2019-03-29 00:00:00 2019-03-29 00:00:00 Telephone Elina Rome [facility] 1.2.840.114 350.1.13.10 4.2.7.2.686 [id number] [facility] 2019-03-27 09:41:28 2019-03-27 09:51:28 Office Visit Aiden Cooney [facility] 1.2.840.114 350.1.13.10 4.2.7.2.686 [id number] [facility] 2019-03-22 15:41:22 2019-03-22 23:59:00 Hospital Encounter Aiden Cooney [facility] 1.2.840.114 350.1.13.10 4.2.7.2.686 [id number] [facility] 2019-03-21 15:31:39 2019-03-22 09:26:38 Office Visit Mike Heard Aiden Cooney [facility] 1.2.840.114 350.1.13.10 4.2.7.2.686 [id number] 225 [id number] [facility] 2019-03-08 09:03:07 2019-03-08 09:13:07 Office Visit Aiden Cooney [facility] 1.2.840.114 350.1.13.10 4.2.7.2.686 [id number] [facility] 2019-03-03 10:38:58 2019-03-03 11:09:50 Office Visit Aiden Cooney [facility] 1.2.840.114 350.1.13.10 4.2.7.2.686 [id number] [facility] 2019-02-10 15:44:39 2019-02-10 23:59:00 Hospital Encounter Sujata Carter [facility] 1.2.840.114 350.1.13.10 4.2.7.2.686 [id number] [facility] 2019-02-10 08:00:00 2019-02-10 15:43:00 Hospital Encounter Sujata Carter [facility] 1.2.840.114 350.1.13.10 4.2.7.2.686 [id number] [facility] Results Test Description Test Time Test Comments Results Result Co mments Source [facility] WITH [id number] 11:43:20* Test Item Value Reference Range Interpretation [...] 32.0 g/dL 31.6-35.1 RDW-SD (test code = 42841-6) 47.8 fL 39.0-49.9 RDW-CV (test code = 788-0) 14.8 % 12.0-15.5 PLT (test code = 777-3) 282 See_Comment [Automated messa ge] The system which generated this result transmitted reference range: 166 - 358 10*3/?L. The reference range was not used to interpret this result as normal/abnormal. MPV (test code = 53084-5) 10.6 fL 9.5-12.9 NRBC/100 WBC (test code = 7612565111) 0.0 See_Comment [Automated me ssage] The system which generated this result transmitted reference range: 0.0 - 10.0 /100 WBCs. The reference range was not used to interpret this result as normal/abnormal. NRBC x10^3 (test code = 2529692212) See_Comment [Automated messa ge] The system which generated this result transmitted reference range: 10*3/?L. The reference range was not used to interpret this result as normal/abnormal. GRAN MAT (NEUT) % (test code = 770-8) 51.7 % IMM GRAN % (test code = 8860411247) 0.20 % LYMPH % (test code = 736-9) 40.7 % MONO % (test code = 5905-5) 6.6 % EOS % (test code = 713-8) 0.4 % BASO % (test code = 706-2) 0.4 % GRAN MAT x10^3(ANC) (test code = 2201242276) 4.76 10*3/uL 1.88-7.09 IMM GRAN x10^3 (test code = 5863961339) 0.00-0.06 LYMPH x10^3 (test code = 731-0) 3.76 10*3/uL 1.32-3.29 H MONO x10^3 (test code = 742-7) 0.61 10*3/uL 0.33-0.92 EOS x10^3 (test code = 711-2) 0.04 10*3/uL 0.03-0.39 BASO x10^3 (test code = 704-7) 0.04 10*3/uL 0.01-0.07 Lab Interpretation (test code = 01959-7) [id number] 15:31:00* Test Item Value Reference Range Interpretation Comme nts POCT PREG (test code = 1605) Negative On board controls acceptable with C Line (test code = 3574) Yes POCT PREG LOT # (test code = 3575) POCT PREG TEST DATE ( test code = 3576) [facility] [id number] 15:31:00* Test Item Value Reference Range Interpretation Comme nts POCT PREG (test code = 1605) Negative On board controls acceptable with C Line (test code = 3574) Yes POCT PREG LOT # (test code = 3575) POCT PREG TEST DATE ( test code = 3576) [id number] 11:21:25* Test Item Value Reference Range Interpretation Comme nts MAGNESIUM (test code = 4447040810) 2.2 mg/dL 1.7-2.4 Lab Interpretation (test cod e = 11463-3) Normal [facility] [id number] 11:21:25* Test Item Value Reference Range Interpretation Comme nts MAGNESIUM (test code = 2064880606) 2.2 mg/dL 1.7-2.4 Lab Interpretation (test cod e = 98019-3) Normal [facility] METABOLIC PANEL (NA, K, CL, CO2, GLUCOSE, BUN, CREATININE, CA)2023-05-02 11:21:05* Test Item Value Reference Range Interpretation Comme nts NA (test code = 3921591345) 138 mmol/L 135-145 K (test code = 8604714198) 3.8 mmol/L 3.5-5.0 CL (test code = 9880910966) 102 mmol/L 98-108 CO2 TOTAL (test code = 3635287107) 22 mmol/L 23-31 L AGAP (test code = 8553633071) 14 2-16 BUN (test code = 4579031825) 21 mg/dL 7-23 GLUCOSE (test code = 3365857443) 88 mg/dL 70-110 CREATININE (test code = 5642855991) 0.65 mg/dL 0.50-1.04 CALCIUM (test code = 5830702692) 9.3 mg/dL 8.6-10.6 eGFR (test code = 1138239460) 116.2 mL/min/1.73m2 RADHA (test code = RADHA) [...] imaging tests). Lab Interpretation (test code = 38561-4) [facility] (13254[facility] (ALB,T.PRO,BILI T,BU/BC,ALT,AST,ALK PHOS)2023-05-02 11:21:05* Test Item Value Reference Range Interpretation Comme nts TOTAL BILI (test code = 9944415879) 0.3 mg/dL 0.1-1.1 BILI UNCON (test code = 0314137281) 0.2 mg/dL 0.1-1.1 BILI CONJ (test code = 8833577926) 0.0 mg/dL 0.0-0.3 T PROTEIN (test code = 1432752787) 7.6 g/dL 6.3-8.2 ALBUMIN (test code = 5974847209) 4.4 g/dL 3.5-5.0 ALK PHOS (test code = 1863491822) 72 U/L 34-122 ALTv (test code = 1742-6) 13 U/L 5-35 AST(SGOT) (test code = 5204994537) 17 U/L 13-40 Lab Interpretation (test cod e = 31478-6) Normal [facility] METABOLIC PANEL (NA, K, CL, CO2, GLUCOSE, BUN, CREATININE, CA)2023-05-02 11:21:05* Test Item Value Reference Range Interpretation Comme nts NA (test code = 7078186309) 138 mmol/L 135-145 K (test code = 4189510914) 3.8 mmol/L 3.5-5.0 CL (test code = 1190650315) 102 mmol/L 98-108 CO2 TOTAL (test code = 2319783867) 22 mmol/L 23-31 L AGAP (test code = 3706473985) 14 2-16 BUN (test code = 0947458375) 21 mg/dL 7-23 GLUCOSE (test code = 7873478168) 88 mg/dL 70-110 CREATININE (test code = 2872110728) 0.65 mg/dL 0.50-1.04 CALCIUM (test code = 0012523080) 9.3 mg/dL 8.6-10.6 eGFR (test code = 2902520949) 116.2 mL/min/1.73m2 RADHA (test code = RADHA) [...] imaging tests). Lab Interpretation (test code = 53281-7) [facility]normal [facility] (22072[facility] (ALB,T.PRO,BILI T,BU/BC,ALT,AST,ALK PHOS)2023-05-02 11:21:05* Test Item Value Reference Range Interpretation Comme nts TOTAL BILI (test code = 5208285089) 0.3 mg/dL 0.1-1.1 BILI UNCON (test code = 0593075116) 0.2 mg/dL 0.1-1.1 BILI CONJ (test code = 1029782983) 0.0 mg/dL 0.0-0.3 T PROTEIN (test code = 3936728036) 7.6 g/dL 6.3-8.2 ALBUMIN (test code = 9693468932) 4.4 g/dL 3.5-5.0 ALK PHOS (test code = 8559376198) 72 U/L 34-122 ALTv (test code = 1742-6) 13 U/L 5-35 AST(SGOT) (test code = 4197840217) 17 U/L 13-40 Lab Interpretation (test cod e = 90059-5) Normal [facility] Esyfyydnxhzg1840-27-96 10:46:23* Test Item Value Reference Range Interpretation Comme nts WBC (test code = 6690-2) 7.54 See_Comment [Automated [employer]] The system which generated this result transmitted reference range: 4.30 - 11.10 10*3/?L. The reference range was not used to interpret this result as normal/abnormal. RBC (test code = 789-8) 4.05 See_Comment [Automated [employer]] The system which generated this result transmitted [...] 32.3 g/dL 31.6-35.1 RDW-SD (test code = 62333-1) 46.6 fL 39.0-49.9 RDW-CV (test code = 788-0) 14.7 % 12.0-15.5 PLT (test code = 777-3) 283 See_Comment [Automated messa ge] The system which generated this result transmitted reference range: 166 - 358 10*3/?L. The reference range was not used to interpret this result as normal/abnormal. MPV (test code = 35329-8) 10.5 fL 9.5-12.9 NRBC/100 WBC (test code = 9421394852) 0.0 See_Comment [Automated [employer] ssage] The system which generated this result transmitted reference range: 0.0 - 10.0 /100 WBCs. The reference range was not used to interpret this result as normal/abnormal. NRBC x10^3 (test code = 9057580493) See_Comment [Automated messa ge] The system which generated this result transmitted reference range: 10*3/?L. The reference range was not used to interpret this result as normal/abnormal. GRAN MAT (NEUT) % (test code = 770-8) 40.7 % IMM GRAN % (test code = 8098590494) 0.10 % LYMPH % (test code = 736-9) 48.4 % MONO % (test code = 5905-5) 8.8 % EOS % (test code = 713-8) 1.3 % BASO % (test code = 706-2) 0.7 % GRAN MAT x10^3(ANC) (test code = 7009357251) 3.07 10*3/uL 1.88-7.09 IMM GRAN x10^3 (test code = 4558775836) 0.00-0.06 LYMPH x10^3 (test code = 731-0) 3.65 10*3/uL 1.32-3.29 H MONO x10^3 (test code = 742-7) 0.66 10*3/uL 0.33-0.92 EOS x10^3 (test code = 711-2) 0.10 10*3/uL 0.03-0.39 BASO x10^3 (test code = 704-7) 0.05 10*3/uL 0.01-0.07 Lab Interpretation (test code = 37720-8) Abnormal [facility] with [id number] 10:46:23* Test Item Value Reference Range Interpretation [...] 32.3 g/dL 31.6-35.1 RDW-SD (test code = 32167-7) 46.6 fL 39.0-49.9 RDW-CV (test code = 788-0) 14.7 % 12.0-15.5 PLT (test code = 777-3) 283 See_Comment [Automated messa ge] The system which generated this result transmitted reference range: 166 - 358 10*3/?L. The reference range was not used to interpret this result as normal/abnormal. MPV (test code = 88873-2) 10.5 fL 9.5-12.9 NRBC/100 WBC (test code = 4006234805) 0.0 See_Comment [Automated me ssage] The system which generated this result transmitted reference range: 0.0 - 10.0 /100 WBCs. The reference range was not used to interpret this result as normal/abnormal. NRBC x10^3 (test code = 8124259037) See_Comment [Automated messa ge] The system which generated this result transmitted reference range: 10*3/?L. The reference range was not used to interpret this result as normal/abnormal. GRAN MAT (NEUT) % (test code = 770-8) 40.7 % IMM GRAN % (test code = 1657248868) 0.10 % LYMPH % (test code = 736-9) 48.4 % MONO % (test code = 5905-5) 8.8 % EOS % (test code = 713-8) 1.3 % BASO % (test code = 706-2) 0.7 % GRAN MAT x10^3(ANC) (test code = 8330701990) 3.07 10*3/uL 1.88-7.09 IMM GRAN x10^3 (test code = 4836478809) 0.00-0.06 LYMPH x10^3 (test code = 731-0) 3.65 10*3/uL 1.32-3.29 H MONO x10^3 (test code = 742-7) 0.66 10*3/uL 0.33-0.92 EOS x10^3 (test code = 711-2) 0.10 10*3/uL 0.03-0.39 BASO x10^3 (test code = 704-7) 0.05 10*3/uL 0.01-0.07 Lab Interpretation (test code = 01826-3) Abnormal [facility]2023-04-18 14:08:00* Test Item Value Reference Range Interpretation Comme nts SURGICAL (test code = SR) R UN DATE: 11/03/22 [place] - LAB PAGE 1 RUN TIME: 1409 Specimen Inquiry RUN USER: INTERFACE P ATIENT: LUIS EDMONDS LOC: JORDI U #: [id number] AGE/SX: 21/F ROOM: [facility] RE10/30/22REG DR: Luis Burciaga MD : 02 BED: 1 DIS: 11/02/22 STATUS: DIS IN TLOC: SPEC #: [id number] RECD: 11/02/22 STATUS: GLENN EVERETT #: [id number] SLOAN: 10/31/22- SUBM DR: Luis Burciaga MD ENTERED: 11/02/22 SP TYPE: SURGICAL OTHR DR: ORDERED: [id number], ANATOMIC SPEC PROCEDURES: [id number] (11/02/22) TISSUES: A. PLACENTA, THIRD TRIMESTER (28 + WEEKS) CLINICAL HISTORY SAME, DELIVERED FINAL DIAGNOSIS Placenta: Third trimester placenta with acute chorionitis, deciduitis; 713 g (expected apxe003 g); trivascular umbilical cord without significant inflammation.. [...] weighs 713 g. Technical component performed at [facility],[address] [place] [address], [place] [address] Unless gross only, the diagnosis is based [...] 11/03/22 1408 END OF REPORT CBC W/AUTO [id number] 07:54:00* Test Item Value Reference Range Interpretation [...] c ode = MDIFF) NO RAPID PLASMA [id number] 11:50:00* Test Item Value Reference Range Interpretation Comme nts RAPID PLASMA REAGIN (test co de = RPR) NONREACTIVE NONREACTIVE AG HEPATITIS B [id number] 11:50:00* Test Item Value Reference Range Interpretation Comme nts AG HEPATITIS B SURFACE (test code = HBSAG) NON REACTIVE INDEX NonReactive AB HIV 1 11:50:00* Test Item Value Reference Range Interpretation Comme nts AB HIV 1 2 (test code = TFD79LJ) Nonreactive Nonreactive CBC W/AUTO [id number] 19:59:00* Test Item Value Reference Range Interpretation [...] c ode = MDIFF) NO AMNISURE (ROM) [id number] 18:12:00* Test Item Value Reference Range Interpretation Comme nts AMNISURE (ROM) TEST (test co de = AMNI) POSITIVE NEGATIVE A AMNISURE (ROM) [id number] 21:41:00* Test Item Value Reference Range Interpretation Comme nts AMNISURE (ROM) TEST (test co de = AMNI) NEGATIVE NEGATIVE [id number] 20:11:00* Test Item Value Reference Range Interpretation Comme nts FIBRONECTIN (test code = FFN) POSITIVE NEGATIVE A UA RFLX MICR CULT IF [id number] 20:11:00* Test Item Value Reference Range Interpretation [...] PainSpecimen Description: CLEAN CATCHDRUGS OF ABUSE SCREEN [id number] 20:10:00* Test Item Value Reference Range Interpretation [...] be used for non-medical purposes. - BIOPHYS [id number] 00:00:00 [facility] 2000 Sex: F Name: BI EDMONDS [facility] [place] : 2000 Age/S: 21 / F [address] [place] [address] Blvd Unit #: [id number] Loc: [place] [address] Phys: Zoila Gomez DO Acct: [id number] Dis Date: Status: REG ER PHONE #: [phone] Exam Date: 09/26/20222004 FAX #: [phone] Reason: decreased FM EXAMS: CPT CODE: [id number] US BIOPHYS PROF 73547 PROCEDURE INFORMATION: Exam: US Biophysical Profile Without Non-Stress Test Exam date and time: 09/26/2022 7:49 PM Age: 21 years old Clinical indication: Pain indication: Abdominal pain; ; Additional info: Decreased fm TECHNIQUE: Imaging protocol: US biophysical profile without non-stress testing. COMPARISON: US FET BIO PH NH W/O NST 09/07/2022 11:03 PM A limited [...] PAGE 1 Signed Report- US PREG AFTER [id number] 00:00:00 [facility] 2000 Sex: F Name: BI EDMONDS [facility] [place] : 2000 Age/S: 21 / F [address] [place] [address] Unit #: [id number] Loc: [place] [address] Phys: Zoila Gomez DO Acct: [id number] Dis Date: Status: REG ER PHONE #: [phone] Exam Date: 09/26/20222004 FAX #: [phone] Reason: PTL EXAMS: CPT CODE: [id number] US PREG AFTER TRI 61943 PROCEDURE INFORMATION: Exam: US After First Trimester, [...] 1 Signed Report (CONTINUED) Name: BI EDMONDS [facility] [place] : 2000 Age/S: 21 / F [address] [place] [address] Unit #: [id number] Loc: [place] [address] Phys: Zoila Gomez DO Acct: [id number] Dis Date: Status: REG ER PHONE #: [phone] Exam Date: 09/26/20222004 FAX #: [phone] Reason: PTL EXAMS: CPT CODE: [id number] US PREG AFTER [id number] (Continued) movement: 2. breathin Amniotic fluid: 2 Total score 8/8 IMPRESSION: 1. Single viable intrauterine gestation in cephalic presentation. 2. Normal growth concordant with dates. 3. Normal biophysical profile. at 2117 Reported and signed by: Jeromy Wolfe M.D. CC: Zoila Gomez DO Technologist:Josefina Fitch [facility] Date/Time: 09/26/2022 (2116) [email or web address] Orig Print D/T: S: 09/26/2022 (2116) Probe: PAGE 2 Signed ReportAMNISURE (ROM) [id number] 14:39:00* Test Item Value Reference Range Interpretation Comme nts AMNISURE (ROM) TEST (test co de = AMNI) NEGATIVE NEGATIVE CHLAMYDIA GC DNA BY [id number] 13:07:00* Test Item Value Reference Range Interpretation Comme nts C. TRACHOMATIS DNA BY PCR (test code = CHLAMTDNA) Negative Negative N. GONORRHOEAE DNA BY PCR (test code = NGONORDNA) Negative Negative Performed At: [facility] [address] [id number] Marc Rosales MD Ph:[phone] UA RFLX MICR CULT IF [id number] 21:16:00* Test Item Value Reference Range Interpretation [...] culture: Suprapubic PainSpecimen Description: CLEAN CATCHRAPID PLASMA [id number] 11:04:00* Test Item Value Reference Range Interpretation Comme nts RAPID PLASMA REAGIN (test co de = RPR) NONREACTIVE NONREACTIVE AG HEPATITIS B [id number] 11:04:00* Test Item Value Reference Range Interpretation Comme nts AG HEPATITIS B SURFACE (test code = HBSAG) NON REACTIVE INDEX NonReactive AB HIV 1 11:04:00* Test Item Value Reference Range Interpretation Comme nts AB HIV 1 2 (test code = RBG91UU) Nonreactive Nonreactive [id number] 08:05:00* Test Item Value Reference Range Interpretation Comme nts MAGNESIUM (test code = MAG) 4.22 mg/dL 1.80-2.40 HH CBC W/AUTO [id number] 00:08:00* Test Item Value Reference Range Interpretation [...] MDIFF) NO - US FET BIO PH NH W/O [id number] 00:00:00 [facility] : 2000 Sex: F Name: LUIS EDMONDS [facility] : 2000 Age/S: 21 / F [address] [place] [address] Blvd Unit #:[id number] Loc: [place] [address] Phys: Juany Carrillo MD Acct: [id number] Dis Date: Status: ADMIN PHONE #: [phone] Exam Date: 09/07/20222315 FAX #: [phone] Reason: IUP@29 wks; Leakingfluid; ROM plus positive EXAMS: CPT CODE: [id number] US FET BIO PH NH W/O NST 34955 PROCEDURE INFORMATION: Exam: US , Limited Exam [...] complications; Premature rupture of membranes; ; Additional info:Iup@29 wks; Leaking fluid; Rom plus positive TECHNIQUE: Imaging protocol: US biophysical profile without non-stress testing. COMPARISON: US BIOPHYS PROF 03/12/2021 11:26 PM PAGE 1 Signed Report (CONTINUED) Name: LUIS EDMONDS [facility] [place] : 2000 Age/S: 21 / F [address] [place] [address] Unit #: [id number] Loc: [place] [address] Phys: Juany Carrillo MD Acct: [id number] Dis Date: Status: ADM IN PHONE #: [phone] Exam Date: 09/07/2022 2316 FAX #: [phone] Reason: IUP@29 wks; Leaking fluid; ROM plus positive EXAMS: CPT CODE: [id number] US FET BIO PH NH W/O NST 63866 (Continued) A limited transabdominal obstetrical ultrasound was [...] (0002) Probe: PAGE 2 Signed Report- US [id number] 00:00:00 [facility]WKENName: LUIS EDMONDS : 2000 Sex: F Name: LUIS EDMONDS [facility] [place] : 2000 Age/S: 21 / F [address] [place] [address] Bl Unit #:[id number] Loc: [place] [address] Phys: Juany Carrillo MD Acct: [id number] Dis Date: Status: ADM IN PHONE #: [phone] Exam Date: 09/07/20222314 FAX #: [phone] Reason: see US FET BIO PHPR W/O NST EXAMS: CPT CODE: [id number] US LTD 38445 PROCEDURE INFORMATION: Exam: US , Limited Exam [...] 1 Signed Report (CONTINUED) Name: LUIS EDMONDS [facility] : 2000 Age/S: 21 / F [address] [place] [address] Blvd Unit #: [id number] Loc: [place] [address] Phys: Juany Carrillo MD Acct: [id number] Dis Date: Status: ADM IN PHONE #: [phone] Exam Date: 09/07/20222314 FAX #: [phone] Reason: see US FET BIO PH NH W/O NST EXAMS: CPT CODE: [id number] US LTD 51011 (Continued) A limited transabdominal obstetrical ultrasound was [...] (1) KaneDMM Orig Print D/T: S: 09/08/2022 (1) Probe: PAGE 2 Signed ReportAMNISURE (ROM) [id number] 22:26:00* Test Item Value Reference Range Interpretation Comme nts AMNISURE (ROM) TEST (test co de = AMNI) POSITIVE NEGATIVE A UA RFLX MICR CULT IF [id number] 22:12:00* Test Item Value Reference Range Interpretation [...] for culture: Suprapubic PainSpecimen Description: CLEAN CATCHFETAL [id number] 16:47:00* Test Item Value Reference Range Interpretation Comme nts FIBRONECTIN (test code = FFN) NEGATIVE NEGATIVE URINALYSIS [id number] 16:34:00* Test Item Value Reference Range Interpretation [...] SEEN - XR ANKLE 3 + V [id number] 00:00:[address] [facility] : 2000 Sex: F FAX: Emily Mckoy MD [phone] [place]: [place] St: PRE FAX: Romeo Chavez Name: LUIS EDMONDS [facility] : 2000 Age/S: 21/F [address] [facility] Unit #: [id number] Loc: [place] [address] Phys: Ghanshyam Chavez MD Acct: [id number] Dis Date: Status: PRE ER PHONE #: Exam Date: 03/06/2022 1600 FAX #: Reason: R ANKLE PAIN AFTER FALL EXAMS: CPT CODE: [id number] XR ANKLE 3 + V RT 26404 PROCEDURE INFORMATION: Exam: XR Right Ankle Exam [...] MD; Ghanshyam Chavez MD Technologist: RT Valerie(R)(CT) Trniacecilia Date/Time/By: 03/06/2022 (2544) : By: Kristian Orig Print D/T: S: 03/06/2022 (8664) PAGE 1 Signed Report- XR FOOT 3 + V [id number] 00:00:[address] [facility] : 2000 Sex: F FAX: Emily Mckoy MD [phone] [place]: [place] St: PRE FAX: Romeo Chavez Name: LUIS EDMONDS [facility] : 2000 Age/S: 21/F [address] [facility] Unit #: [id number] Loc: [place] [address] Phys: Ghanshyam Chavez MD Acct: [id number] Dis Date: Status: PRE ER PHONE #: Exam Date: 03/06/2022 2229 FAX #: Reason: r foot injury EXAMS: CPT CODE: [id number] XR FOOT 3 + V RT 73073 PROCEDURE INFORMATION: Exam: XR Right Foot Exam [...] MD Technologist: RT Valerie(R)(CT) Trnscrd Date/Time/By: 03/06/2022 (5397) : By: Kristian Orig Print D/T: S: 03/06/2022 (0687) PAGE 1 Si gned ReportURINE HCG TRIAGE (ER ONLY)2021-11-11 08:40:00* Test Item Value Reference Range Interpretation Comme nts URINE HCG TRIAGE (ER ONLY) ( test code = HCGTRIAGE) NEGATIVE Negative Urine Test Result: NEGATIVEAre internal controls (presence of a control line & clear background) OK? YLot # of HCG Test Kit: [id number] Date of Kit: 02/15/23Test Performed by:Carlo Perfomed on: 11/11/21COMMENTS: NEGATIVEUA DIPSTICK [id number] 00:46:00* Test Item Value Reference Range Interpretation Comme nts UA GLUCOSE DIPSTIC POC (test code = GLUUP) NEGATIVE NEGATIVE UA BILIRUBIN DIPSTICK (test code = BILU) NEGATIVE NEGATIVE UA KETONE DIPSTICK POC (test code = KETUP) NEGATIVE NEGATIVE UA SPECIFIC GRAVITY (test code = SGU) 1.010 1.005-1.030 N UA BLOOD DIPSTIC POC (test code = BLUP) NEGATIVE NEGATIVE Performed by certified truck crane operator helper at [facility] UA PH DIPSTIC POC (test code = PHUP) 7 5.0-7.0 N UA PROTEIN DIPSTICK POC (test code = DPROUP) NEGATIVE NEGATIVE UA UROBILINIOGEN QUAL (test code = UROQL) NORMAL 0.2-1.0 UA NITRITE DIPSTICK POC (test code = NITUP) NEGATIVE Negative UA LEUKOCYTE ESTERASE W REFLEX (test code = LEUUR) Negative NEGATIVE SURGICAL PATH [id number] 13:13:00* Test Item Value Reference Range Interpretation Comme nts SURGICAL PATH SPECIMENS (test code = S) RUN DATE: 03/28/21 [place] - LAB PAGE 1 RUN TIME: 1313 Specimen Inquiry RUN USER: INTERFACE ARTEMIO ENT: LUIS EDMONDS LOC: KristopherTorres U #: [id number] AGE/SX: 20/F ROOM: [facility] RE03/25/21REG DR: Luis Burciaga MD : [birth year] BED: 1 DIS: STATUS: ADM IN TLOC: SPEC #: [id number] RECD: 03/27/21 STATUS: GLENN EVERETT #: [id number] SLOAN: 03/26/21- SUBM DR: Luis Burciaga MD ENTERED: 03/27/21 SP TYPE: SURG SPEC OTHR DR: ORDERED: LEVEL 5 CODES: JS2212 - PLACENTA, NOS PROCEDURES: GM LEVEL 5 [...] 03/28/21 1313 END OF REPORT CBC W/AUTO [id number] 07:03:00* Test Item Value Reference Range Interpretation [...] ode = MDIFF) NO CORD VENOUS BLOOD [id number] 18:41:00* Test Item Value Reference Range Interpretation [...] = O2SCV) 17 % CORD ARTERIAL BLOOD [id number] 18:40:00* Test Item Value Reference Range Interpretation [...] O2S/C) 25 % 72-77 L RAPID PLASMA [id number] 10:40:00* Test Item Value Reference Range Interpretation Comme [facility] RAPID PLASMA REAGIN (test co de = RPR) NONREACTIVE NONREACTIVE AG HEPATITIS B [id number] 10:40:00* Test Item Value Reference Range Interpretation Comme nts AG HEPATITIS B SURFACE (test code = HBSAG) NON REACTIVE INDEX NonReactive AB HIV 1 10:40:00* Test Item Value Reference Range Interpretation Comme nts AB HIV 1 2 (test code = DPF81IV) Nonreactive Nonreactive COVID 19 Asymptomatic IH [id number] 20:20:00* Test Item Value Reference Range Interpretation [...] perform moderate, high or waivedcomplexity tests. URINALYSIS [id number] 18:48:00* Test Item Value Reference Range Interpretation [...] MUCU) TRACE /LPF NONE SEEN RAPID PLASMA [id number] 18:11:00* Test Item Value Reference Range Interpretation Comme nts RAPID PLASMA REAGIN (test code = RPR) NONREACTI VE AG HEPATITIS B [id number] 18:11:00* Test Item Value Reference Range Interpretation Comme nts AG HEPATITIS B SURFACE (test code = HBSAG) NON REACTIVE INDEX NonReactive AB HIV 1 18:11:00* Test Item Value Reference Range Interpretation Comme nts AB HIV 1 2 (test code = WYK54DV) Nonreactive Nonreactive COMPREHENSIVE METABOLIC [id number] 17:45:00* Test Item Value Reference Range Interpretation [...] = ALKP) 153 IUnit/L 60-350 N URIC [id number] 17:45:00* Test Item Value Reference Range Interpretation Comme nts URIC ACID (test code = URIC) 4.0 mg/dL 2.6-7.2 N LACTIC DEHYDROGENASE(LDH)2021-03-25 17:45:00* Test Item Value Reference Range Interpretation Comme nts LACTIC DEHYDROGENASE(LDH) (t est code = LDH) 225 IUnits/L 84-246 N CBC W/AUTO [id number] 17:24:00* Test Item Value Reference Range Interpretation [...] (test c ode = MDIFF) CBC W/AUTO [id number] 17:24:00* Test Item Value Reference Range Interpretation [...] ode = MDIFF) NO - US BIOPHYS [id number] 00:00:00 [facility] LUIS EDMONDS : 2000 Sex: F Name: LUIS EDMONDS [facility] Madeline Coffman : 2000 Age/S: 20 / F [address] [place] [address] Blvd Unit #:[id number] Loc: [place] [address] Phys: Effie Solitario MD Acct: [id number] Dis Date: Status: REG ER PHONE #: [phone] Exam Date: 03/12/202141 FAX #: [phone] Reason: Possible SROM, please evaluate ISMA EXAMS: CPT CODE: [id number] US BIOPHYS PROF 45689 PROCEDURE INFORMATION: Exam: US Biophysical Profile With [...] co de = AMNI) NEGATIVE NEGATIVE URINALYSIS [id number] 21:48:00* Test Item Value Reference Range Interpretation [...] = MUCU) TRACE /LPF NONE SEEN URINALYSIS [id number] 07:00:00* Test Item Value Reference Range Interpretation [...] TRACE /LPF NONE SEEN - US BIOPHYS [id number] 00:00:00 [facility] 2000 Sex: F Name: LUIS EDMONDS [facility] : 2000 Age/S: 20 / F [address] [place] [address] Unit #:[id number] Loc: [place] [address] Phys: Effie Solitario MD Acct: [id number] Dis Date: Status: REG ER PHONE #: [phone] Exam Date: 03/01/2021 0758 FAX #: [phone] Reason: decreased movements EXAMS: CPT CODE: [id number] US BIOPHYS PROF 28619 PROCEDURE INFORMATION: Exam: US F etal Biophysical [...] Vilma Robles RDMS(AB) Trnscb Date/Time: 03/01/2021 (809) [email or web address] Orig Print D/T: S: 03/01/2021 (0811) Probe: PAGE 1 Signed Report AMNISURE (ROM) [id number] 16:16:00* Test Item Value Reference Range Interpretation Comme nts AMNISURE (ROM) TEST (test co de = AMNI) NEGATIVE NEGATIVE [id number] 16:16:00* Test Item Value Reference Range Interpretation Comme nts FIBRONECTIN (test code = FFN) NEGATIVE NEGATIVE [id number] 20:50:00* Test Item Value Reference Range Interpretation Comme nts FIBRONECTIN (test code = FFN) NEGATIVE NEGATIVE URINALYSIS [id number] 20:32:00* Test Item Value Reference Range Interpretation [...] TRACE /LPF NONE SEEN - US BIOPHYS [id number] 00:00:00 [facility] : 2000 Sex: F Name: LUIS EDMONDS [facility] : 2000 Age/S: 20 / F [address] [place] [address] Unit #: [id number] Loc: [place] [address] Phys: Effie Solitario MD Acct: [id number] Dis Date: Status: REG ER PHONE #: [phone] Exam Date: 02/12/20212122 FAX #: [phone] Reason: Decreased movements EXAMS: CPT CODE: [id number] US BIOPHYS PROF 24638 PROCEDURE INFORMATION: Exam: US Biophysical Profile With [...] 1 Signed Report (CONTINUED) Name: LUIS EDMONDS [facility] : 2000 Age/S: 20 / F [address] [place] [address] Bl Unit #: [id number] Loc: [place] [address] Phys: Effie Solitario MD Acct: [id number] Dis Date: Status: REG ER PHONE #: [phone] Exam Date: 02/12/20212122 FAX #: [phone] Reason: Decreased movements EXAMS: CPT CODE: [id number] US BIOPHYS PROF 54667 <Continued> at 2121 Reported and signed by: Geovanny Hughes D.O. CC: Technologist: Yuki Ray RDMS()(OB) Trnscb Date/Time: 02/12/2021 (2121) [email or web address] Orig Print D/T: S: 02/12/2021 (2148) Probe: PAGE 2 Signed ReportURINALYSIS [id number] 03:25:00* Test Item Value Reference Range Interpretation [...] MUCU) TRACE /LPF NONE SEEN - US [id number] 17:34:00 [facility]WKENName: LUIS EDMONDS : 2000 Sex: F Name: LUIS EDMONDS [facility] [place] : 2000 Age/S: 20 / F [address] [place] [address] Bl Unit #:[id number] Loc: [place] [address] Phys: Pearl Chavez DO Acct: [id number] Dis Date: Status: REG ER PHONE #: [phone] Exam Date: 12/25/2020 1726 FAX #: [phone] Reason: h/o low ISMA, unsure if PROM, translabial cervic EXAMS: CPT CODE: [id number] LTD 09588 LIMITED ULTRASOUND INDICATION: with history of low amniotic fluid index. Unsure premature rupture ofmembranes. Translabial cervical length. Lower abdominal pain. Back pain. COMPARISON: 11/23/2020 ultrasound ULTRASOUND FINDINGS: Limited transabdominal ultrasound was performed. Gestation: Single: Yes Cardiac Motion: Yes (BPM):132-145 Presentation: Cephalic Placenta Location:Anterior Placenta Grade: 1 Placenta Previa: No Uterus/Cervix/Adnexa: [...] Signed Report (CONTINUED) Name: LUIS EDMONDS [facility] Madeline Coffman : 2000 Age/S: 20 / F [address] [place] [address] Unit #: [id number] Loc: [place], [place] [address]Sroy: Pearl Chavez DO Acct: [id number] Dis Date: Status: REG ER PHONE #: [phone] Exam Date: 12/25/2020 1726 FAX #: [phone] Reason: h/o low ISMA, unsure if PROM, translabial cervic EXAMS: CPT CODE: [id number] LTD 37334 <Continued> at 1734 Reported and signed by: Judah Izquierdo M.D. CC: Pearl Chavez DO Technologist: Merna Figueroa RDMS() Trnscb Date/Time: 12/25/2020 (1734) [email or web address] Orig Print D/T: S: 12/25/2020 (1737) Probe: PAGE 2 Signed ReportAMNISURE (ROM) [id number] 17:14:00* Test Item Value Reference Range Interpretation Comme nts AMNISURE (ROM) TEST (test co de = AMNI) NEGATIVE NEGATIVE URINALYSIS [id number] 17:10:00* Test Item Value Reference Range Interpretation [...] /HPF NONE A DRUGS OF ABUSE SCREEN [id number] 17:07:00* Test Item Value Reference Range Interpretation [...] for non-medical purposes. - US PREG AFTER [id number] 02:47:[address] [facility] : 2000 Sex: FName: LUIS EDMONDS [facility] [place] : 2000 Age/S: 19 / F [address] [place] [address] Blvd Unit #:[id number] Loc: [place] [address] Phys: Brittnee Ramirez MD Acct: [id number] Dis Date: Status: REG ER PHONE #: [phone] Exam Date: 11/23/2020 0144 FAX #: [phone] Reason: No PNC, bleeding, approximately 20 weeks EXAMS: CPT CODE: [id number] US PREG AFTER 1ST TRI 46002 EXAM: US, US PREG AFTER 1SR TRI: [...] Signed Report (CONTINUED) Name: LUIS EDMONDS [facility] [place] : 2000 Age/S: 19 / F [address] [place], [place] [address]vd Unit #: [id number] Loc: [place] [address] Phys: Brittnee Ramirez MD Acct: [id number] Dis Date: Status: REG ER PHONE #: Exam Date: 11/23/2020143 FAX #: [phone] Reason: No PNC, bleeding, approximately 20 weeks EXAMS: CPT CODE: [id number] US PREG AFTER TRI 72629 <Continued> seen. Cervical lengthis not visualized. IMPRESSION: Single live fetus in variable presentation. heart rate is 140bpm. 2. Sonographic EGA of 19 weeks 6 days and an sonographic DANY of 04/13/2021 +/- one standard shiraz ation. SL:[JSYED-H] at 0247 Reported and signed by: Jeromy Wolfe M.D. CC: Brittnee Ramirez MD Technologist: Maryam Anderson RDMS(BR)(AB) Trnscb Date/Time: 11/23/2020 (246) [email or web address] Orig Print D/T: S: 11/23/2020 (0250) Probe: PAGE 2 SignedReport- US PREG AFTER [id number] 02:47:00 [facility] : 2000 Sex: F Name: LUIS EDMONDS [facility] [place] : 2000 Age/S: 19 / F [address] [place] [address] Unit #:[id number] Loc: [place] [address] Phys: Brittnee Ramirez MD Acct: [id number] Dis Date: Status: DEP ER PHONE #: [phone] Exam Date: 11/23/2020 0144 FAX #: [phone] Reason: No PNC, bleeding,approximately 20 weeks EXAMS: CPT CODE: [id number] US PREG AFTER 1ST TRI 83162 EXAM: US, US PREG AFTER 1SR TRI: [...] minus one standard deviation. The LMP estimated gestationalage is 20 weeks 0 day . DANY by LMP is 04/12/2021. There is difference of one day between LMP estimated gestational age and sonographic gestational age. Gross survey, within the limitation of gestational age, is unremarkable. Three-vessel umbilical cord, cord insertion, kidneys, bladder,stomach, extremities and 4 chamber view of heart was PAGE 1 Signed Report (CONTINUED) Name: LUIS EDMONDS [facility] : 2000 Age/S: 19 / F [address] [place] [address] Blvd Unit #: [id number] Loc: [place] [address] Phys: Brittnee Ramirez MD Acct: [id number] Dis Date: Status: DEP ER PHONE #: [phone] Exam Date: 11/23/2020143 FAX #: [phone] Reason: No PNC, bleeding, chcldzprixpyz06 weeks EXAMS: CPT CODE: [id number] US PREG AFTER 1ST TRI 61677 <Continued> seen. Cervical length is not visualized. [...] 11/23/2020 (0250) Probe: PAGE 2 Signed ReportURINALYSIS [id number] 01:40:00* Test Item Value Reference Range Interpretation [...] /HPF NONE A DRUGS OF ABUSE SCREEN [id number] 01:40:00* Test Item Value Reference Range Interpretation [...] be used for non-medical purposes. CBC W/AUTO [id number] 01:27:00* Test Item Value Reference Range Interpretation [...] c ode = MDIFF) NO BASIC METABOLIC [id number] 02:51:00* Test Item Value Reference Range Interpretation [...] = CA) 9.5 mg/dL 8.0-10.5 N HCG [id number] 02:51:00* Test Item Value Reference Range Interpretation Comme nts HCG SERUM (test code = HCG) 95471.3 0 - 6 NOT PREGNA NT > 6 SUGGESTIVE OF EARLY RISES TWO FOLD EVERY 2 DAYS; SUGGEST RECONFIRMING AFTER 2 DAYS. 150,000-200,[address] TRIMESTER 10,000 - 50,000 2ND & 3RD TRIMESTERResults in emanuel-International Units/mL URINALYSIS [id number] 02:39:00* Test Item Value Reference Range Interpretation [...] MUCU) TRACE /LPF NONE SEEN CBC W/AUTO [id number] 02:21:00* Test Item Value Reference Range Interpretation [...] = MDIFF) NO - US PREG 1ST [id number] 02:19:00 [facility]FF[facility]Name: LUIS EDMONDS : 2000 Sex: FName: LUIS EDMONDS [facility] Madeline Coffman : 2000 Age/S: 19 / F [address] [place] [address] Blvd Unit #:[id number] Loc: [place] [address] Phys: Nirav Nolan MD Acct: [id number] Dis Date: Status: REG ER PHONE #: [phone] Exam Date: 10/05/2020209 FAX #: [phone] Reason: VB EXAMS: CPT CODE: [id number] US PREG 1ST TRIMTR 95344 STUDY: - DUP AB/PEL/SC/LTD, - US PREG 1ST TRIMTR 10/05/2020 1:17 AM Ordering Physician: Nirav Nolan MD Patient Name: LUIS EDMONDS MR: [id number] : 2000; Age: 19 years y/o Female [...] Signed Report (CONTINUED) Name: LUIS EDMONDS [facility] [place] : 2000 Age/S: 19 / F [address] [place] [address] Unit #: [id number] Loc: [place] [address] Phys: Nirav Nolan MD Acct: [id number] Dis Date: Status: REG ER PHONE #: [phone] Exam Date: 10/05/2020209 FAX #: [phone] Reason: VB EXAMS: CPT CODE: [id number] US PREG 1ST TRIMTR 71051 <Continued> SL: TPAINTER-H Delilah ctronically Signed by Valeria Avila on 10/05/2020 at 0219 Reported and signed by: Abdias Avila M.D. CC: Elina Rome MD; Nirav Nolan MD Technologist: Maryam Anderson RDMS()(AB) Trnscb Date/Time: 10/05/2020 (218) [email or web address] Orig Print D/T: S: 10/05/2020 (221) Probe: PAGE 2 Signed Report- DUP AB/PEL/SC/[id number] 02:19:00 [facility] 2000 Sex: F Name: LUIS EDMONDS [facility] : 2000 Age/S: 19 / F [address] [place] [address] Unit #:[id number] Loc: [place] [address] Phys: Nirav Nolan MD Acct: [id number] Dis Date: Status: REG ER PHONE #: [phone] Exam Date: 10/05/2020209 FAX #: [phone] Reason: see US PREG 1st TRIMTR EXAMS: CPT CODE: [id number] DUP AB/PEL/SC/LTD 40567 STUDY: - DUP AB/PEL/SC/LTD, - US PREG 1ST TRIMTR 10/05/2020 1:17 AM Ordering Physician: Nirav Nolan MD Patient Name: LUIS EDMONDS MR: [id number] : 2000; Age: 19 years y/o Female [...] 1 Signed Report (CONTINUED) Name: LUIS EDMONDS [facility] : 2000Age/S: [address] [place] [address] Blvd Unit #: [id number] Loc: [place] [address] Phys: Nirav Nolan MD Acct: [id number] Dis Date: Status: REG ER PHONE #: [phone] Exam Date: 10/05/2020209FAX #: [phone] Reason: see US PREG 1st TRIMTR EXAMS: CPT CODE: [id number] DUP AB/PEL/SC/LTD 29410 <Continued> SL: TPAINTER-H at 021 Reported and signed by: Abdias Avila M.D. CC: Elina Rome MD; Nirav Nolan MD Technologist: Maryam Anderson RDMS(GOYO)(AB) Trnscb Date/Time: 10/05/2020 (218) [email or web address] Orig Print D/T: S: 10/05/2020 (221) Probe: PAGE 2 Signed Report- DUP AB/PEL/SC/[id number] 22:07:00 [facility] MADELINE COFFMANName: LUIS EDMONDS : 2000 Sex: F Name: LUIS EDMONDS [facility] Madeline Coffman : 2000 Age/S: 19 / F [address] [place] [address] Bl Unit #:[id number] Loc: [place] [address] Phys: Cathy Bruce Acct: [id number] Dis Date: Status: REG ER PHONE #: [phone] Exam Date: 08/22/20202199 FAX #: [phone] Reason: see US PREG 1st TRIMTR EXAMS: CPT CODE: [id number] DUP AB/PEL/SC/LTD 12376 PROCEDURE: FIRST TRIMESTER ULTRASOUND INDICATION: 6 weeks [...] PAGE 1 Signed Report- US PREG 1ST [id number] 22:07:00[facility] : 2000 Sex: F Name: LUIS EDMONDS [facility] : 2000 Age/S: 19 / F [address] [place] [address] Unit #: [id number] Loc: [place] [address] Phys: Cathy Bruce Acct: [id number] Dis Date: Status: REG ER PHONE #: [phone] Exam Date: 08/22/20202199 FAX #: [phone] Reason: 6w , cramping EXAMS: CPT CODE: [id number] US PREG 1ST TRIMTR 44333 PROCEDURE: FIRST TRIMESTER ULTRASOUND INDICATION: 6 weeks [...] Maryam Anderson RDMS(BR)(AB) Trnscb Date/Time: 08/22/2020 (2206) [email or web address] Orig Print D/T: S: 08/22/2020 (2209) Probe: PAGE 1 Signed ReportURINALYSIS [id number] 21:50:00* Test Item Value Reference Range Interpretation [...] MUCU) TRACE /LPF NONE SEEN BASIC METABOLIC [id number] 21:48:00* Test Item Value Reference Range Interpretation [...] patient ? YHOW MANY WEEKS? 6 WEEKSHCG [id number] 21:48:00* Test Item Value Reference Range Interpretation Comme nts HCG SERUM (test code = HCG) 98727.6 0 - 6 NOT PREGNA NT > 6 SUGGESTIVE OF EARLY RISES TWO FOLD EVERY 2 DAYS; SUGGEST RECONFIRMING AFTER 2 DAYS. 150,000-200,[address] TRIMESTER 10,000 - 50,000 2ND & 3RD TRIMESTERResults in emanuel-International Units/mL Is patient ? YHOW MANY WEEKS? 6 WEEKSUR HCG [id number] 21:47:00* Test Item Value Reference Range Interpretation Comme nts UR HCG QUAL (test code = HCGQLU) POSITIVE NEGATIVE CBC W/AUTO [id number] 21:33:00* Test Item Value Reference Range Interpretation [...] c ode = MDIFF) NO CBC W/AUTO [id number] 21:31:00* Test Item Value Reference Range Interpretation [...] c ode = MDIFF) Novel Coronavirus 2018 [id number] 14:50:00* Test Item Value Reference Range Interpretation Comme nts Novel Coronavirus 2019 nCoV (test code = COVID19) Negative Negative Performed by: [facility] [address] [facility], [address] [place] [address] CLIA#: [id number] Does patient have the clinical criteria consistent with COVID-19? YIs the patient going to be discharged home? Y- CT NECK W/[id number] 02:35:00 Name: LUIS EDMONDS [facility] : 2000 Age/S: 19 / F [address] [place] [address] Unit #:[id number] Loc: [place] [address] Phys: Amilcar Pablo SHAREPOINT DESIGNER DEVELOPER Acct: [id number] Dis Date: Status: REG ER PHONE #: [phone] Exam Date: 02/16/2020 0134 FAX #: [phone] Reason: R lymphadenopathy, throat pain, fever EXAMS: CPT CODE: [id number] CT NECK W/CONTRAST 51577 EXAM: CT, CT NECK W/CONTRAST:02/16/2020, 0132 hours Clinical Indication: Right lymphadenopathy. Fever. [...] 1 Signed Report (CONTINUED) Name: LUIS EDMONDS [facility] : 2000 Age/S: 19 / F [address] [place] [address] Unit #: [id number] Loc: [place] [address] Phys: Amilcar Pablo SHAREPOINT DESIGNER DEVELOPER Acct: [id number] Dis Date: Status: REG ER PHONE #: Exam Date: 02/16/2020 013 FAX #: [phone] Reason: R lymphadenopathy, throat pain, fever EXAMS: CPT CODE: [id number] CT NECK W/CONTRAST 40075 <Continued> unremarkable. OSSEOUS STRUCTURES: There are no [...] to resolution recommended. SL: TRES at 0235 Reportedand signed by: Jeromy Wolfe M.D. CC: Elina Rome MD; Amilcar Pablo NP Technologist:Josué Granado RT(R)(CT); Natasha CTDI: DLP: Trnscb Date/Time: 02/16/2020 (023) [email or web address] Orig Print D/T: S: 02/16/2020 (0239) PAGE 2 Signed ReportCOMPREHENSIVE METABOLIC [id number] 00:12:00* Test Item Value Reference Range Interpretation [...] = ALKP) 70 IUnit/L 60-350 N MONO [id number] 00:09:00* Test Item Value Reference Range Interpretation Comme nts MONO SCREEN (test code = MONO) NEGATIVE NEGATIVE URINALYSIS [id number] 00:02:00* Test Item Value Reference Range Interpretation [...] MUCU) 1+ /LPF NONE SEEN COMPREHENSIVE METABOLIC [id number] 00:02:00* Test Item Value Reference Range Interpretation [...] code = ALKP) IUnit/L 60-350 CBC W/AUTO [id number] 23:59:00* Test Item Value Reference Range Interpretation [...] (test code = MDIFF) NO UR HCG [id number] 23:56:00* Test Item Value Reference Range Interpretation Comme nts UR HCG QUAL (test code = HCGQLU) NEGATIVE NEGATIVE Notes Date/Time Note Provider Source 2022-11-16 15:41:00 [id number] [address] PATIENT NAME: LUIS EDMONDS ADMIT DATE: 10/30/22 ACCOUNT NO: [id number] ROOM NO: G.431 AGE: 21 REPORT TYPE: 360 - QUERY RESPONSE DOCUMENT SEX: F ADMITTING PHYSICIAN:Luis Burciaga MD ATTENDING PHYSICIAN:Luis Burciaga MD Provider Query QUERY TEXT: Clarification Pathology 360MD Query related questions should be directed to: [facility] Coding Query Hotline Based on your clinical [...] AM at 1541 PATIENT NAME: LUIS EDMONDS [facility] 2022-11-02 15:02:00 [facility] ([facility]) OB Disch REPORT#:[id number] REPORT STATUS: Signed DATE:11/02/22 TIME: 1502 PATIENT: LUIS EDMONDS UNIT #: [id number] ROOM/BED: [place] [address] : [birth year] AGE: 21 SEX: F ATTEND: [...] Additional discharge routines: None at 1504 RPT #:[id number] END OF REPORT [facility] 2022-11-02 14:57:00 [facility] ([facility]) OB Postpart Progr Note REPORT#:[id number] REPORT STATUS: Signed DATE:11/02/22 TIME: 1457 PATIENT: LUIS EDMONDS UNIT #: [id number] ROOM/BED: [place] [address] : [birth year] AGE: 21 SEX: F ATTEND: [...] routine care, discharge today at 1500 RPT #:[id number] END OF REPORT [facility] 2022-11-01 15:13:00 [facility] ([facility]) OB Postpart Progr Note REPORT#:[id number] REPORT STATUS: Signed DATE:11/01/22 TIME: 1513 PATIENT: LUIS EDMONDS UNIT #: [id number] ROOM/BED: [place] [address] : 02 AGE: 21 SEX: F ATTEND: [...] % (Auto) (14.0 - 32.0 %) 25.7 O'Brien % (Auto) (4.8 - 9.0 %) 9.7 H Eos % (Auto) (0.3 - 3.7 %) 0.8 Baso % (Auto) (0.0 - 2.0 %) 0.5 Neut # (Auto) (2.0 - 7.6 x10 3/uL) 7.76 H Lymph # (Auto) (1.0 - 3.8 x10 3/uL) 3.17 O'Brien # (Auto) (0.1 - 0.8 x10 3/uL) [...] Assessment: nml progress Plan: routine care at 2764 RPT #:[id number] END OF REPORT [facility] 2022-10-31 15:14:00 [facility] ([facility]) DT History Physical REPORT#:[id number] REPORT STATUS: Signed DATE:10/31/22 TIME: 1513 PATIENT: LUIS EDMONDS UNIT #: [id number] ROOM/BED: [place] [address] : 02 AGE: 21 SEX: F ATTEND: [...] (14.0 - 32.0 %) 26.3 10/30 1830 O'Brien % (Auto) (4.8 - 9.0 %) 9.6 H 10/30 1830 Eos % (Auto) (0.3 - 3.7 %) 0.6 10/30 1830 Baso % (Auto) (0.0 - 2.0 %) 0.3 10/30 1829 Neut # (Auto) (2.0 - 7.6 x10 3/uL) 6.27 10/30 1829 Lymph # (Auto) (1.0 - 3.8 x10 3/uL) 2.65 10/30 1829 O'Brien # (Auto) (0.1 - 0.8 x10 3/uL) [...] ASDIR 10/30 1829 CKD 10/31 Potassium IV 04/21 1829 1143 (PENICILLIN G POTASSIUM) Sodium Chloride [...] (ePHEDrine sulfate) IM 11/29 1829 Cardiovascular Drugs Sig/Trish Start time Last Medication [...] LOCAL 11/29 1829 Central Nervous System Agents Sig/Trish Start time [...] AC (BUPIVACAINE HCL) EPIDURAL 11/29 1829 Oxytocics Sig/Trish Start time Last Medication Dose [...] 10/31 1222 70 99 10/31 1219 77.0 04/15 1219 72 114/56 04/ [...] 1118 68 89/47 04 1117 71 97 04/ 1112 68 98 04/ 1107 70 98 10/31 1102 66 98 10/31 1057 79 100 04/ 1052 79 100 04/ 1051 16 10/31 1048 79.0 10/31 1048 68 111/56 04 1047 71 100 04/ 1046 16 04 1042 82.0 04/15 1042 91 115/59 100 04/15 1041 16 10/31 1037 82.0 04/ 1037 87 112/57 100 04/ 1036 16 04 1032 81.0 /15 1032 92 120/56 100 04/15 1031 17 10/31 1028 78.0 / 1028 82 119/61 10/31 1027 84 100 04/15 1022 74 100 04/15 1021 17 04/15 1021 81.0 /15 1021 68 117/59 04 [...] 04/15 0000 89 100 04/14 2357 84.0 04/14 2357 93 117/66 10/30 2356 36.9 10/30 [...] 1725 139 117/55 98 at 1514 RPT #:[id number] END OF REPORT [facility] 2022-10-31 15:12:00 [facility] ([facility]) OB Delivery Note REPORT#:[id number] REPORT STATUS: Signed DATE:10/31/22 TIME: 1512 PATIENT: LUIS EDMONDS UNIT #: [id number] ROOM/BED: [place] [address] : 02 AGE: 21 SEX: F ATTEND: [...] status: GBS status: unknown Prophylaxis administered: penicillin [place] evaluation at delivery: NRP certified personnel Admission [...] infant stable in room at 1514 RPT #:[id number] END OF REPORT [facility] 2022-09-27 16:38:00 [facility] ([facility]) OB Disch Undelivered REPORT#:[id number] REPORT STATUS: Signed DATE:09/27/22 TIME: 163 PATIENT: BI EDMONDS UNIT #: [id number] ROOM/BED: [place] [address] : 02 AGE: 21 SEX: F ATTEND: [...] 88 99/57 09/26 2230 82 93 09/26 222 79.0 09/26 2228 84 110/58 PATIENT WEIGHT: Weight (lb): Weight (oz): Weight (kg): Free Text Obj Notes Free Text Obj Notes: Gen: AAOx3 Lungs: normal respiratory effort Neuro: Exam: alert, oriented x3 Abdomen: gravid, soft Uterine activity: Monitor: toco Frequency (description): None Frequency (minutes): ASSISTANT HALL DIRECTOR: Normal exteral genitalia Cervical/ exam: Dilatation (cm): [...] understanding will have her follow-up with 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 Assessment: no evidence labor Impression: reactive NST [...] timeframe: In 1-2 weeks at 1953 RPT #:[id number] END OF REPORT [facility] 2022-09-27 10:39:00 [facility] ([facility]) OB Antepartum Prog Note REPORT#:[id number] REPORT STATUS: Signed DATE:09/27/22 TIME: 1039 PATIENT: BI EDMONDS UNIT #: [id number] ROOM/BED: [place] [address] : 02 AGE: 21 SEX: F ATTEND: [...] Monitor: toco Frequency (description): none Frequency (minutes): ASSISTANT HALL DIRECTOR: Normal exteral genitalia Cervical/ exam: Dilatation (cm): 1 Effacement (%): 50 station: -3 Presentation: Membrane status: FHR evaluation: FHR category: category I Diagnosis, Assessment Plan Diagnosis, Assessment Plan Free text A P: IUP 32 07/25 FFN + Patient found stable, patient evaluated by MFM, he recommends discharge home if no cervical change. Will check her this afternoon. at 1950 RPT #:[id number] END OF REPORT [facility] 2022-09-27 09:19:00 [facility] ([facility]) MFM Consultation Note REPORT#:[id number] REPORT STATUS: Signed DATE:09/27/22 TIME: 918 PATIENT: BI EDMONDS UNIT #: [id number] ROOM/BED: [place] [address] : 02 AGE: 21 SEX: F ATTEND: [...] globulin this preg: Monitor mode - UA: Murray units: Feeding preference: Delivery data Delivery date [...] Temp 36.7 09/26 1858 Resp 18 09/26 1858 PATIENT WEIGHT: Weight (lb): Weight (oz): Weight [...] pH (5.0 - 7.0) 5.0 Ur Specific [place] (1.005 - 1.030) 1.033 H Urine Protein [...] closely Floor time 50min at 0927 RPT #:[id number] END OF REPORT [facility] 2022-09-27 05:02:00 [facility] ([facility]) OB Admission / H P REPORT#:[id number] REPORT STATUS: Signed DATE:09/27/22 TIME: 0502 PATIENT: BI EDMONDS UNIT #: [id number] ROOM/BED: [place] [address] : 02 AGE: 21 SEX: F ATTEND: [...] pH (5.0 - 7.0) 5.0 Ur Specific [place] (1.005 - 1.030) 1.033 H Urine Protein [...] dilation Plan: 1. Phone consult called to [facility], Dr Judge. No Celestone is needed ( last course of steroid was given 3+ wk ago on 09-08-22 and 09-09-22 ). No MgSO4 is needed at 32 1/7wks with no contractions. 2. Admit for 23h observation. 3. Will recheck cx in AM. If no contraction or cervical change, will DC home. at 0512 RPT #:[id number] END OF REPORT [facility] 2022-09-26 19:34:00 [facility] ([facility]) OLGA Evaluation Note REPORT#:[id number] REPORT STATUS: Signed DATE:09/26/22 TIME: 1933 PATIENT: BI EDMONDS UNIT #: [id number] ROOM/BED: [place] [address] : 02 AGE: 21 SEX: F ATTEND: [...] POC dw patient, nurse at 0502 RPT #:[id number] END OF REPORT [facility] 2022-09-26 19:30:00 [facility] ([facility]) OB Medical Screening Exam REPORT#:[id number] REPORT STATUS: Signed DATE:09/26/22 TIME: 1929 PATIENT: BI EDMONDS UNIT #: [id number] ROOM/BED: 204-01 : 02 AGE: 21 SEX: F ATTEND: Luis Burciaga MD ADM DT: AUTHOR: Zoila Gomez DO * ALL edits or amendments must be made on the electronic/computer document * Medical Screening Exam Provider Attestation Comments: Patient was seen at 1920 for contraction, back pain, and decreased FM at 32 1/ 7wks at 1931 RPT #:[id number] END OF REPORT [facility] 2022-09-14 08:43:00 [facility] ([facility]) OB Disch Undelivered REPORT#:[id number] REPORT STATUS: Signed DATE:09/14/22 TIME: 842 PATIENT: LUIS EDMONDS UNIT #: [id number] ROOM/BED: 348-1 : 02 AGE: 21 SEX: [...] Additional Discharge Routines: None at 0845 RPT #:[id number] END OF REPORT [facility] 2022-09-14 08:41:[address] [facility] ([facility]) OB Antepartum Prog Note REPORT#:[id number] REPORT STATUS: Signed DATE:09/14/22 TIME: 0841 PATIENT: LUIS EDMONDS UNIT #: [id number] ROOM/BED: [place] [address] : 02 AGE: 21 SEX: F ATTEND: [...] labor Plan: discharge home at 0843 RPT #:[id number] END OF REPORT [facility] 2022-09-13 17:53:00 [facility] ([facility]) OB Antepartum Prog Note REPORT#:[id number] REPORT STATUS: Signed DATE:09/13/22 TIME: 1753 PATIENT: LUIS EDMONDS UNIT #: [id number] ROOM/BED: [place] [address] : 02 AGE: 21 SEX: F ATTEND: [...] preamature outside hospital decreases at 1802 RPT #:[id number] END OF REPORT [facility] 2022-09-13 09:03:00 [facility] ([facility]) [facility] Progress Note REPORT#:[id number] REPORT STATUS: Signed DATE:09/13/22 TIME: 902 PATIENT: LUIS EDMONDS UNIT #: [id number] ROOM/BED: [place] [address] : 02 AGE: 21 SEX: F ATTEND: [...] closely Floor time 35min at 0911 RPT #:[id number] END OF REPORT [facility] 2022-09-12 08:28:00 [facility] ([facility]) [facility] Progress Note REPORT#:[id number] REPORT STATUS: Signed DATE:09/12/22 TIME: 827 PATIENT: LUIS EDMONDS UNIT #: [id number] ROOM/BED: [place] [address] : 02 AGE: 21 SEX: F ATTEND: [...] closely Floor time 35min at 0834 RPT #:[id number] END OF REPORT [facility] 2022-09-12 01:41:[address] [facility] ([facility]) OB Antepartum Prog Note REPORT#:[id number] REPORT STATUS: Signed DATE:09/12/22 TIME: 0141 PATIENT: LUIS EDMONDS UNIT #: [id number] ROOM/BED: [place] [address] : 02 AGE: 21 SEX: F ATTEND: [...] Plan: continue current managmnt at 0142 RPT #:[id number] END OF REPORT [facility] 2022-09-11 22:15:00 [facility] ([facility]) OB Antepartum Prog Note REPORT#:[id number] REPORT STATUS: Signed DATE:09/11/22 TIME: 2214 PATIENT: LUIS EDMONDS UNIT #: [id number] ROOM/BED: [place] [address] : 02 AGE: 21 SEX: F ATTEND: [...] 83.0 09/11 1907 Pulse Ox 99 09/11 1908 B/P 115/62 [...] Assessment: PPROM Plan: continue current managmnt at 4272 RPT #:[id number] END OF REPORT [facility] 2022-09-11 07:18:00 [facility] ([facility]) [facility] Progress Note REPORT#:[id number] REPORT STATUS: Signed DATE:09/11/22 TIME: 717 PATIENT: LUIS EDMONDS UNIT #: [id number] ROOM/BED: [place] [address] : 02 AGE: 21 SEX: F ATTEND: [...] pH (5.0 - 7.0) 6.0 Ur Specific [place] (1.005 - 1.030) 1.019 Urine Protein (NEGATIVE) [...] closely Floor time 35min at 0724 RPT #:[id number] END OF REPORT [facility] 2022-09-10 13:12:00 [facility] ([facility]) MFM Progress Note REPORT#:[id number] REPORT STATUS: Signed DATE:09/10/22 TIME: 1312 PATIENT: LUIS EDMONDS UNIT #: [id number] ROOM/BED: [place] [address] : 02 AGE: 21 SEX: F ATTEND: [...] closely Floor time 35min at 1325 RPT #:[id number] END OF REPORT [facility] 2022-09-10 08:19:00 [facility] ([facility]) OB Antepartum Prog Note REPORT#:[id number] REPORT STATUS: Signed DATE:09/10/22 TIME: 818 PATIENT: LUIS EDMONDS UNIT #: [id number] ROOM/BED: [place] [address] : 02 AGE: 21 SEX: F ATTEND: [...] Plan: continue current managmnt at 0820 RPT #:[id number] END OF REPORT [facility] 2022-09-09 12:03:00 [facility] ([facility]) OB Admission / H P REPORT#:[id number] REPORT STATUS: Signed DATE:09/09/22 TIME: 1203 PATIENT: LUIS EDMONDS UNIT #: [id number] ROOM/BED: [place] [address] : 02 AGE: 21 SEX: F ATTEND: Luis Burciaga MD ADM AUTHOR: Juany Carrillo MD * ALL edits or amendments must be made on the electronic/computer document * OB History Notes: [facility] ([facility]) [place] Evaluation Note REPORT#:[id number] REPORT STATUS: Signed DATE:09/07/22 TIME: 2242 PATIENT: LUIS EDMONDS UNIT #: [id number] ROOM/BED: [place] [address] : 02 AGE: 21 SEX: F ATTEND: [...] pH (5.0 - 7.0) 7.0 Ur Specific [place] (1.005 - 1.030) 1.006 Urine Protein (NEGATIVE) [...] counseling/coordination of care: yes at 0549 RPT #:[id number] END OF REPORT Past History Allergies: Uncoded Allergies: MARCUS ACID- THROAT SWELLING (Severe, 08/03/22) at 1207 RPT #:[id number] END OF REPORT [facility] 2022-09-09 09:03:00 [facility] ([facility]) OB Antepartum Prog Note REPORT#:[id number] REPORT STATUS: Signed DATE:09/09/22 TIME: 09 PATIENT: LUIS EDMONDS UNIT #: [id number] ROOM/BED: [place] [address] : 02 AGE: 21 SEX: F ATTEND: [...] Plan: continue current managmnt at 0906 RPT #:[id number] END OF REPORT [facility] 2022-09-09 08:58:00 [facility] ([facility]) OB Antepartum Prog Note REPORT#:[id number] REPORT STATUS: Signed DATE:09/09/22 TIME: 0858 PATIENT: LUIS EDMONDS UNIT #: [id number] ROOM/BED: [place] [address] : 02 AGE: 21 SEX: F ATTEND: [...] Plan: continue current managmnt at 0859 RPT #:[id number] END OF REPORT [facility] 2022-09-09 07:45:00 [facility] ([facility]) MFM Progress Note REPORT#:[id number] REPORT STATUS: Signed DATE:09/09/22 TIME: 0745 PATIENT: LUIS EDMONDS UNIT #: [id number] ROOM/BED: [place] [address] : 02 AGE: 21 SEX: F ATTEND: [...] closely Floor time 35min at 0748 RPT #:[id number] END OF REPORT [facility] 2022-09-08 17:21:00 [facility] ([facility]) [facility] Consultation Note REPORT#:[id number] REPORT STATUS: Signed DATE:09/08/22 TIME: 172 PATIENT: LUIS EDMONDS UNIT #: [id number] ROOM/BED: [place] [address] : 02 AGE: 21 SEX: F ATTEND: [...] % (Auto) (14.0 - 32.0 %) 31.0 O'Brien % (Auto) (4.8 - 9.0 %) 8.1 Eos % (Auto) (0.3 - 3.7 %) 0.8 Baso % (Auto) (0.0 - 2.0 %) 0.3 Neut # (Auto) (2.0 - 7.6 x10 3/uL) 6.16 Lymph # (Auto) (1.0 - 3.8 x10 3/uL) 3.22 O'Brien # (Auto) (0.1 - 0.8 x10 3/uL) [...] pH (5.0 - 7.0) 7.0 Ur Specific [place] (1.005 - 1.030) 1.006 Urine Protein (NEGATIVE) [...] reviewed Sono today: vtx, ant. placenta, EFW [id number] (1574g, 68%ile), nl range ISMA 15.4, nl [...] closely Floor time 80min at 1731 RPT #:[id number] END OF REPORT [facility] 2022-09-07 22:44:00 [facility] ([facility]) OB Medical Screening Exam REPORT#:[id number] REPORT STATUS: Signed DATE:09/07/22 TIME: 2244 PATIENT: LUIS EDMONDS UNIT #: [id number] ROOM/BED: [place] [address] : 02 AGE: 21 SEX: F ATTEND: [...] did not leak urine. at 0557 RPT #:[id number] END OF REPORT [facility] 2022-09-07 22:43:00 [facility] ([facility]) [place] Evaluation Note REPORT#:[id number] REPORT STATUS: Signed DATE:09/07/22 TIME: 2242 PATIENT: LUIS EDMONDS UNIT #: [id number] ROOM/BED: [place] [address] : 02 AGE: 21 SEX: F ATTEND: [...] pH (5.0 - 7.0) 7.0 Ur Specific [place] (1.005 - 1.030) 1.006 Urine Protein (NEGATIVE) [...] counseling/coordination of care: yes at 0549 RPT #:[id number] END OF REPORT [facility] 2022-08-06 11:00:00 [facility] ([facility]) OB Medical Screening Exam REPORT#:[id number] REPORT STATUS: Signed DATE:08/06/22 TIME: 1100 PATIENT: LUIS EDMONDS UNIT #: [id number] ROOM/BED: : 02 AGE: 21 SEX: F ATTEND: Effie Solitario MD ADM AUTHOR: Effie Solitario MD * ALL edits or amendments must be made on the electronic/computer document * Medical Screening Exam Provider Attestation Attestation: The QMP MSE reviewed. DATE 08/03/2019 Notified at 1523 Provider at bedside at 1523 Comments: 21 Y/O IUP 24 2/7 presents due to cramping. at 1101 RPT #:[id number] END OF REPORT [facility] 2022-08-06 11:00:00 [facility] ([facility]) OL[place] Evaluation Note REPORT#:[id number] REPORT STATUS: Signed DATE:08/06/22 TIME: 1100 PATIENT: LUIS EDMONDS UNIT #: [id number] ROOM/BED: : 02 AGE: 21 SEX: F [...] Monitor: toco Frequency (description): None Frequency (minutes): ASSISTANT HALL DIRECTOR: Normal exteral genitalia Cervical/ exam: Speculum exam: [...] understanding will have her follow-up with 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 Assessment: no evidence labor Impression: reactive NST Plan: discharge home Plan discussed with: patient, nurse at 1106 RPT #:[id number] END OF REPORT [facility] 2022-03-06 16:08:00 [facility] ([facility]) emergency provider report report#:[id number] report status: signed date:03/06/22 time: 1608 patient: luis edmonds unit #: [id number] room/bed: age: 21 sex: f pcp phys: [...] follow-up: as needed notes: orthopedic surgeon address: [address] [place] [address] provider group: primary care follow-up: 1 week [...] chavez md on 03/06/22 at 1747 rpt #:[id number] end of report [facility] 2021-11-11 00:46:00 [facility] ([facility]) EMERGENCY PROVIDER REPORT REPORT#:[id number] REPORT STATUS: Signed DATE:11/11/21 TIME: 45 PATIENT: LUIS EDMONDS UNIT #: [id number] ROOM/BED: AGE: 20 SEX: F PCP PHYS: [...] Room air 11/11 52 Temp 36.4 11/11 005 Pulse 76 11/11 0053 Resp 18 11/11 [...] pH (5.0 - 7.0) 7 Ur Specific [place] (1.005 - 1.030) 1.010 POC Urine Protein [...] a call to 911. at 0107 RPT #:[id number] END OF REPORT [facility] 2021-08-08 22:23:00 [facility] ([facility] EMERGENCY PROVIDER REPORT REPORT#:[id number] REPORT STATUS: Signed DATE:08/08/21 TIME: 2222 PATIENT: LUIS EDMONDS UNIT #: [id number] ROOM/BED: AGE: 20 SEX: F PCP PHYS: [...] department or a call to 911. at [address] [place] [address] #:[phone] END OF REPORT [facility] 2021-03-28 09:04:00 [facility] ([facility]) OB Disch REPORT#:[id number] REPORT STATUS: Signed DATE:03/28/21 TIME: 0904 PATIENT: LUIS EDMONDS UNIT #: [id number] ROOM/BED: [place] [address] : 02 AGE: 20 SEX: F ATTEND: Luis Burciaag MD ADM AUTHOR: Luis Burciaga MD * [...] Additional discharge routines: None at 0905 RPT #:[id number] END OF REPORT [facility] 2021-03-28 09:03:00 [facility] ([facility]) OB Postpart Progr Note REPORT#:[id number] REPORT STATUS: Signed DATE:03/28/21 TIME: 902 PATIENT: LUIS EDMONDS UNIT #: [id number] ROOM/BED: [place] [address] : 02 AGE: 20 SEX: F ATTEND: [...] routine care, discharge today at 0904 RPT #:[id number] END OF REPORT [facility] 2021-03-27 09:21:00 [facility] [facility] ([facility]) OB Postpart Progr Note REPORT#:[id number] REPORT STATUS: Signed DATE:03/27/21 TIME: 920 PATIENT: LUIS EDMONDS UNIT #: [id number] ROOM/BED: [place] [address] : 02 AGE: 20 SEX: F ATTEND: [...] 1940 69 100 03/26 1935 87.0 03/26 193 69 125/62 03/26 1925 78 100 08 1920 86.0 03/26 1920 87 120/60 03/26 1905 80.0 03/26 1905 75 119/56 09/08 1854 87.0 09/08 [...] % (Auto) (14.0 - 32.0 %) 24.9 O'Brien % (Auto) (4.8 - 9.0 %) 9.4 H Eos % (Auto) (0.3 - 3.7 %) 0.6 Baso % (Auto) (0.0 - 2.0 %) 0.2 Neut # (Auto) (2.0 - 7.6 x10 3/uL) 8.09 H Lymph # (Auto) (1.0 - 3.8 x10 3/uL) 3.13 O'Brien # (Auto) (0.1 - 0.8 x10 3/uL) [...] progress Plan: routine care at 0922 RPT #:[id number] END OF REPORT [facility] 2021-03-26 18:49:00 [facility] ([facility]) OB Delivery Note REPORT#:[id number] REPORT STATUS: Signed DATE:03/26/21 TIME: 1848 PATIENT: LUIS EDMONDS UNIT #: [id number] ROOM/BED: [place] [address] : 02 AGE: 20 SEX: F ATTEND: [...] time A: 1807 Birthweight (gm) A: 3200 Weight (lb) infant A: Weight (oz) A: Gender infant A: Female 1 minute infant A: 5 minutes infant [...] loss at delivery: 50 at 1852 RPT #:[id number] END OF REPORT [facility] 2021-03-26 08:25:00 [facility] ([facility]) DT History Physical REPORT#:[id number] REPORT STATUS: Signed DATE:03/26/21 TIME: 824 PATIENT: LUIS EDMONDS UNIT #: [id number] ROOM/BED: [place] [address] : 02 AGE: 20 SEX: F ATTEND: Luis Burciaga MD ADM AUTHOR: Luis Burciaga MD * ALL edits or amendments must be made on the electronic/computer document * History Physical History Physical Please care records and office H P at 2112 RPT #:[id number] END OF REPORT [facility] 2021-03-12 21:16:00 [facility] ([facility]) OB Medical Screening Exam REPORT#:[id number] REPORT STATUS: Signed DATE:03/12/21 TIME: 2115 PATIENT: LUIS EDMONDS UNIT #: [id number] ROOM/BED: : 02 AGE: 20 SEX: F ATTEND: Effie Solitario MD ADM AUTHOR: Effie Solitario MD * ALL edits or amendments must be made on the electronic/computer document * Medical Screening Exam Provider Attestation Attestation: The QMP MSE reviewed. Provider at bedside at 2113 Comments: 20 y/o GP0 IUP 35 4/7 presents due to leaking of fluid and contractions. at 2152 RPT #:[id number] END OF REPORT [facility] 2021-03-12 21:16:00 [facility] ([facility]) [place] Evaluation Note REPORT#:[id number] REPORT STATUS: Signed DATE:03/12/21 TIME: 2115 PATIENT: LUIS EDMONDS UNIT #: [id number] ROOM/BED: [place] [address] : 02 AGE: 20 SEX: F ATTEND: [...] toco Frequency (description): uterine irritability Frequency (minutes): ASSISTANT HALL DIRECTOR: Normal exteral genitalia Cervical/ exam: Speculum exam: [...] understanding will have her follow-up with 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 Assessment: no evidence labor Impression: reactive NST Plan: discharge home Plan discussed with: patient, nurse at 0104 RPT #:[id number] END OF REPORT [facility] 2021-03-01 06:09:00 [facility]) [place] Evaluation Note REPORT#:[id number] REPORT STATUS: Signed DATE:03/01/21 TIME: 608 PATIENT: LUIS EDMONDS UNIT #: [id number] ROOM/BED: [place] [address] : 02 AGE: 20 SEX: F ATTEND: [...] Monitor: toco Frequency (description): irregular Frequency (minutes): ASSISTANT HALL DIRECTOR: Normal exteral genitalia Cervical/ exam: Dilatation (cm): [...] AT HER APT WEDNESDAY. at 0854 RPT #:[id number] END OF REPORT [facility] 2021-03-01 06:09:00 [facility] ([facility]) OB Medical Screening Exam REPORT#:[id number] REPORT STATUS: Signed DATE:03/01/21 TIME: 608 PATIENT: LUIS EDMONDS UNIT #: [id number] ROOM/BED: [place] [address] : 02 AGE: 20 SEX: F ATTEND: Luis Burciaga MD ADM AUTHOR: Effie Solitario MD * ALL edits or amendments must be made on the electronic/computer document * Medical Screening Exam Provider Attestation Attestation: The QMP MSE reviewed. Provider at bedside at 0600 Comments: IUP 34 0/7 presents due to decreased movements and pelvic pressure. at 0643 RPT #:[id number] END OF REPORT [facility] 2021-03-01 06:09:00 [facility] ([facility]) [place] Evaluation Note REPORT#:[id number] REPORT STATUS: Signed DATE:03/01/21 TIME: 608 PATIENT: LUIS EDMONDS UNIT #: [id number] ROOM/BED: 304-1 : 02 AGE: 20 SEX: [...] TAB PO DAILY 12/25/20 03/01/21 FUMARATE/FA 1511 0548 () Strength: 1 EACH TAB Allergies Uncoded [...] Mean 85.0 03/01 0542 B/P 111/72 03/01 542 Pulse 106 08/14 0542 Temp 98.1 03/01 0540 Resp 16 03/01 0540 Vital Signs Date Temp Pulse Resp B/P B/P Mean Pulse Ox FiO2 03/01 98.1 106 16 111/72 85.0 PATIENT WEIGHT: Weight (lb): Weight (oz): Weight (kg): Physical Exam Additional comments: Gen: AAOx3 Lungs: normal respiratory effort Neuro: Exam: alert, oriented x3 Abdomen: gravid, soft Uterine activity: Monitor: toco Frequency (description): irregular Frequency (minutes): ASSISTANT HALL DIRECTOR: Normal exteral genitalia Cervical/ exam: Dilatation (cm): [...] assume care at 0700 at 0647 RPT #:[id number] END OF REPORT [facility] 2021-02-17 15:34:00 [facility] ([facility] OB Medical Screening Exam REPORT#:[id number] REPORT STATUS: Signed DATE:02/17/21 TIME: 153 PATIENT: LUIS EDMONDS UNIT #: [id number] ROOM/BED: [place] [address] : 02 AGE: 20 SEX: F ATTEND: Effie Solitario MD ADM DT: AUTHOR: Effie Solitario MD * ALL edits or amendments must be made on the electronic/computer document * Medical Screening Exam Provider Attestation Attestation: The QMP MSE reviewed. Provider at bedside at 1537 Comments: 20 y/o IUP 32 2/7 presents due to gush of fluids and cramping. at 1615 RPT #:[id number] END OF REPORT [facility] 2021-02-17 15:34:00 [facility] ([facility]) [place] Evaluation Note REPORT#:[id number] REPORT STATUS: Signed DATE:02/17/21 TIME: 153 PATIENT: LUIS EDMONDS UNIT #: [id number] ROOM/BED: : 02 AGE: 20 SEX: F [...] Monitor: toco Frequency (description): none Frequency (minutes): ASSISTANT HALL DIRECTOR: Normal exteral genitalia Cervical/ exam: Speculum exam: [...] understanding will have her follow-up with 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 Assessment: no evidence labor Impression: reactive NST Plan: discharge home Plan discussed with: patient, nurse at 1950 RPT #:[id number] END OF REPORT [facility] 2021-02-12 21:22:00 [facility] ([facility] OB Medical Screening Exam REPORT#:[id number] REPORT STATUS: Signed DATE:02/12/21 TIME: 2121 PATIENT: LUIS EDMONDS UNIT #: [id number] ROOM/BED: : 02 AGE: 20 SEX: F [...] nausea and decreased movements. at 0915 RPT #:[id number] END OF REPORT [facility] 2021-02-12 21:21:00 [facility] ([facility]) [place] Evaluation Note REPORT#:[id number] REPORT STATUS: Signed DATE:02/12/21 TIME: 2120 PATIENT: LUIS EDMONDS UNIT #: [id number] ROOM/BED: : 02 AGE: 20 SEX: F [...] Monitor: toco Frequency (description): none Frequency (minutes): ASSISTANT HALL DIRECTOR: Normal exteral genitalia Cervical/ exam: Speculum exam: no discharge Dilatation (cm): closed Effacement (%): thick station: high FHR evaluation: FHR category: category I Results Findings/Data: Laboratory Tests: 02/12 Miscellaneous Fibronectin (NEGATIVE) NEGATIVE Urines Urine Color (YEL/STRAW) YELLOW Urine Appearance (CLEAR) CLEAR Urine pH (5.0 - 7.0) 6.0 Ur Specific [place] (1.005 - 1.030) 1.006 Urine Protein (NEGATIVE) [...] understanding will have her follow-up with 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 Assessment: no evidence labor Impression: reactive NST Plan: discharge home Plan discussed with: patient, nurse at 0921 RPT #:[id number] END OF REPORT [facility] 2021-01-29 03:41:00 [facility] ([facility]) [place] Evaluation Note REPORT#:[id number] REPORT STATUS: Signed DATE:01/29/21 TIME: 0341 PATIENT: LUIS EDMONDS UNIT #: [id number] ROOM/BED: [place] [address] : 02 AGE: 20 SEX: F ATTEND: [...] pH (5.0 - 7.0) 7.0 Ur Specific [place] (1.005 - 1.030) 1.010 Urine Protein (NEGATIVE) [...] f/u as scheduled with primary OB in [place], [place] at 0355 RPT #:[id number] END OF REPORT [facility] 2021-01-29 03:39:00 [facility] ([facility]) OB Medical Screening Exam REPORT#:[id number] REPORT STATUS: Signed DATE:01/29/21 TIME: 033 PATIENT: LUIS EDMONDS UNIT #: [id number] ROOM/BED: [place] [address] : 02 AGE: 20 SEX: F ATTEND: [...] no lof/rom. no vb. at 0341 RPT #:[id number] END OF REPORT [facility] 2020-12-25 16:25:00 [facility] ([facility]) [place] Evaluation Note REPORT#:[id number] REPORT STATUS: Signed DATE:12/25/20 TIME: 1624 PATIENT: LUIS EDMONDS UNIT #: [id number] ROOM/BED: [place] [address] : 02 AGE: 20 SEX: F ATTEND: [...] for cxn. Will f/u at 1632 RPT #:[id number] END OF REPORT [facility] 2020-12-25 16:25:00 [facility] ([facility]) [place] Evaluation Note REPORT#:[id number] REPORT STATUS: Signed DATE:12/25/20 TIME: 1625 PATIENT: LUIS EDMONDS UNIT #: [id number] ROOM/BED: 304-1 : 02 AGE: 20 SEX: [...] her OB this week. at 1807 RPT #:[id number] END OF REPORT [facility] 2020-12-25 16:24:00 [facility] ([facility]) OB Medical Screening Exam REPORT#:[id number] REPORT STATUS: Signed DATE:12/25/20 TIME: 1624 PATIENT: LUSI EDMONDS UNIT #: [id number] ROOM/BED: [place] [address] : 02 AGE: 20 SEX: F ATTEND: Pearl Chavez DO ADM AUTHOR: Pearl Chavez DO * ALL edits or amendments must be made on the electronic/computer document * Medical Screening Exam Provider Attestation Comments: Pt triaged at 1610. at 1625 RPT #:[id number] END OF REPORT [facility] 2020-11-23 00:54:00 [facility] ([facility]) OB Triage Visit REPORT#:[id number] REPORT STATUS: Signed DATE:11/23/20 TIME: 0054 PATIENT: LUIS EDMONDS UNIT #: [id number] ROOM/BED: [place] [address] : 02 AGE: 19 SEX: F ATTEND: [...] and reassured. Patient recieves [facility] at the [facility]. Did not need to wear a ad [...] type ordered Ultrasound complete at 0107 RPT #:[id number] END OF REPORT [facility] 2020-10-05 03:31:00 [facility] ([facility]) EMERGENCY PROVIDER REPORT REPORT#:[id number] REPORT STATUS: Signed DATE:10/05/20 TIME: 033 PATIENT: LUIS EDMONDS UNIT #: [id number] ROOM/BED: AGE: 19 SEX: F PCP PHYS: [...] [Embedded Image Not Available] Laboratory Tests: 10/05 10/05 0215 0210 Chemistry Sodium (134 - 147 mEq/L) [...] % (Auto) (28.0 - 48.0 %) 33.4 O'Brien % (Auto) (3.0 - 15.0 %) 6.3 Eos % (Auto) (1.0 - 8.0 %) 1.1 Baso % (Auto) (0.0 - 2.0 %) 0.5 Neut # (Auto) (2.0 - 3.2 x10 3/uL) 7.28 H Lymph # (Auto) (1.0 - 3.8 x10 3/uL) 4.17 H O'Brien # (Auto) (0.1 - 0.8 x10 3/uL) [...] x10 3/uL) 0.00 Miscellaneous Maternal Serum HCG 62855.3 Urines Urine Color (YEL/STRAW) YELLOW Urine Appearance (CLEAR) CLEAR Urine pH (5.0 - 7.0) 5.0 Ur Specific [place] (1.005 - 1.030) 1.017 Urine Protein (NEGATIVE) [...] Additional Instructions TYLENOL DIRECTED at 2314 RPT #:[id number] END OF REPORT [facility] 2020-08-22 20:42:00 [facility] ([facility]) EMERGENCY PROVIDER REPORT REPORT#:[id number] REPORT STATUS: Signed DATE:08/22/20 TIME: 2041 PATIENT: LUIS EDMONDS UNIT #: [id number] ROOM/BED: AGE: 19 SEX: F PCP PHYS: Elina Rome MD SERVICE AUTHOR: Cathy Bruce * ALL edits or amendments must be made on the electronic/computer document * HPI- Female Free Text HPI Notes Free Text HPI Notes 19-year-old female G1, 6 weeks EGA with LMP109/08 presents 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 She reports associated nausea, [...] No palpable masses or pulsetile masses. Negative Moosic Sign. No TTP at [place] Ext: [...] % (Auto) (28.0 - 48.0 %) 30.6 O'Brien % (Auto) (3.0 - 15.0 %) 5.9 Eos % (Auto) (1.0 - 8.0 %) 0.6 L Baso % (Auto) (0.0 - 2.0 %) 0.7 Neut # (Auto) (2.0 - 3.2 x10 3/uL) 6.51 H Lymph # (Auto) (1.0 - 3.8 x10 3/uL) 3.22 O'Brien # (Auto) (0.1 - 0.8 x10 3/uL) [...] x10 3/uL) 0.00 Miscellaneous Maternal Serum HCG 82299.6 Urines Urine Color (YEL/STRAW) STRAW Urine Appearance (CLEAR) CLEAR Urine pH (5.0 - 7.0) 6.0 Ur Specific [place] (1.005 - 1.030) 1.008 Urine Protein (NEGATIVE) [...] a call to 911. 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 She reports associated nausea, [...] No palpable masses or pulsetile masses. Negative Moosic Sign. No TTP at [place] Ext: [...] % (Auto) (28.0 - 48.0 %) 30.6 O'Brien % (Auto) (3.0 - 15.0 %) 5.9 Eos % (Auto) (1.0 - 8.0 %) 0.6 L Baso % (Auto) (0.0 - 2.0 %) 0.7 Neut # (Auto) (2.0 - 3.2 x10 3/uL) 6.51 H Lymph # (Auto) (1.0 - 3.8 x10 3/uL) 3.22 O'Brien # (Auto) (0.1 - 0.8 x10 3/uL) [...] x10 3/uL) 0.00 Miscellaneous Maternal Serum HCG 92513.6 Urines Urine Color (YEL/STRAW) STRAW Urine Appearance (CLEAR) CLEAR Urine pH (5.0 - 7.0) 6.0 Ur Specific [place] (1.005 - 1.030) 1.008 Urine Protein (NEGATIVE) [...] X1ED STA 08/22 2040 DC 08/22 IV 02/04 2042 2113 Patient Discharge Departure Vital Signs/Condition Vital Signs [...] Saw Pt Alone I have reviewed the PA/SHAREPOINT DESIGNER DEVELOPER's note and plan of care. I was available for consultation as needed at all times during the patient's visit in the emergency department. I agree with the clinical impression, plan and disposition. at 2346 at 2337 RPT #:[id number] END OF REPORT [facility] 2020-02-15 23:20:00 [facility] ([facility]) EMERGENCY PROVIDER REPORT REPORT#:[id number] REPORT STATUS: Signed DATE:02/15/20 TIME: 2319 PATIENT: LUIS EDMONDS UNIT #: [id number] ROOM/BED: AGE: 19 SEX: F PCP PHYS: [...] Covid exposures. General Initial Greet Date/Time 02/15/20 8895 Presentation Chief Complaint Fever, Sore throat Hx [...] Room air 02/15 032 Temp 36.8 02/15 0328 Pulse 83 02/15 [...] (Auto) (28.0 - 48.0 %) 13.9 L O'Brien % (Auto) (3.0 - 15.0 %) 10.0 Eos % (Auto) (1.0 - 8.0 %) 0.0 L Baso % (Auto) (0.0 - 2.0 %) 0.4 Neut # (Auto) (2.0 - 3.2 x10 3/uL) 9.16 H Lymph # (Auto) (1.0 - 3.8 x10 3/uL) 1.70 O'Brien # (Auto) (0.1 - 0.8 x10 3/uL) [...] pH (5.0 - 7.0) 6.0 Ur Specific [place] (1.005 - 1.030) 1.015 Urine Protein (NEGATIVE) [...] STA 02/14 2312 DC 02/14 Phosphate IV 02/143 2321 [...] Room air 02/15 2308 Temp 39.1 02/14 2308 Pulse 117 02/14 2308 Resp 18 02/14 2308 Last Documented: Result Date Time Pulse Ox 99 02/15 0328 B/P 96/55 02/15 0328 B/P Mean 68 02/15 0328 O2 Delivery Room air 02/15 032 Temp 36.8 02/15 032 Pulse 83 02/15 0328 Resp 18 02/158 All vital signs available [...] Elina Rome MD (PCP/Family) at 0332 RPT #:[id number] END OF REPORT [facility] 2020-02-15 23:20:00 [facility] ([facility]) EMERGENCY PROVIDER REPORT REPORT#:[id number] REPORT STATUS: Signed DATE:02/15/20 TIME: 2319 PATIENT: LUIS EDMONDS UNIT #: [id number] ROOM/BED: AGE: 19 SEX: F PCP PHYS: [...] B/P 112/63 02/15 2308 B/P Mean 79 02/148 O2 Delivery Room air 02/15 2308 Temp 39.1 02/15 2308 Pulse 117 02/14 2308 Resp 18 02/15 2308 Last Documented: Result Date Time Pulse Ox 99 02/15 0328 B/P 96/55 02/16 328 B/P Mean 68 02/16 328 O2 Delivery Room air 02/16 328 Temp 36.8 02/16 328 Pulse 83 02/158 Resp 18 02/16 328 Review of Vital [...] (Auto) (28.0 - 48.0 %) 13.9 L O'Brien % (Auto) (3.0 - 15.0 %) 10.0 Eos % (Auto) (1.0 - 8.0 %) 0.0 L Baso % (Auto) (0.0 - 2.0 %) 0.4 Neut # (Auto) (2.0 - 3.2 x10 3/uL) 9.16 H Lymph # (Auto) (1.0 - 3.8 x10 3/uL) 1.70 O'Brien # (Auto) (0.1 - 0.8 x10 3/uL) [...] pH (5.0 - 7.0) 6.0 Ur Specific [place] (1.005 - 1.030) 1.015 Urine Protein (NEGATIVE) [...] X1ED STA 02/15 2312 DC 02/14 PO 02/143 2320 Diagnostic [...] HPI-General Illness General Initial Greet Date/Time 02/15/20 225 Patient Discharge Departure Supervising Physician Note MidLv Saw Pt Alone I have reviewed the PA/SHAREPOINT DESIGNER DEVELOPER's note and plan of care. I was available for consultation as needed at all times during the patient's visit in the emergency department. I agree with the clinical impression, plan and disposition. at 0332 RPT #:[id number] END OF REPORT [facility] 2020-02-15 23:20:00 [facility] ([facility]) EMERGENCY PROVIDER REPORT REPORT#:[id number] REPORT STATUS: Signed DATE:02/15/20 TIME: 2319 PATIENT: LUIS EDMONDS UNIT #: [id number] ROOM/BED: AGE: 19 SEX: F PCP PHYS: [...] (Auto) (28.0 - 48.0 %) 13.9 L O'Brien % (Auto) (3.0 - 15.0 %) 10.0 Eos % (Auto) (1.0 - 8.0 %) 0.0 L Baso % (Auto) (0.0 - 2.0 %) 0.4 Neut # (Auto) (2.0 - 3.2 x10 3/uL) 9.16 H Lymph # (Auto) (1.0 - 3.8 x10 3/uL) 1.70 O'Brien # (Auto) (0.1 - 0.8 x10 3/uL) [...] pH (5.0 - 7.0) 6.0 Ur Specific [place] (1.005 - 1.030) 1.015 Urine Protein (NEGATIVE) [...] resolution recommended. SL: TORI-Elin Impression By: Miguelito Wolfe M.D. Lab Imaging [...] Saw Pt Alone I have reviewed the PA/SHAREPOINT DESIGNER DEVELOPER's note and plan of care. I was available for consultation as needed at all times during the patient's visit in the emergency department. I agree with the clinical impression, plan and disposition. at 0332 at 0517 RPT #:[id number] END OF REPORT [facility] 2019-05-22 11:29:00 [facility] ([facility]) EMERGENCY PROVIDER REPORT REPORT#:[id number] REPORT STATUS: Signed DATE:05/22/19 TIME: 112 PATIENT: LUIS EDMONDS UNIT #: [id number] ROOM/BED: AGE: 18 SEX: F PCP PHYS: [...] ED with c/o allergic reaction, onset 30mins PRODUCTION SUPPORT CONSULTANT. Pt reports eating sour Skittles and felt sensation of throat swelling with associated neck/throat itchiness and SOB. She took 50mg of Benadryl and Epi Pen at school PRODUCTION SUPPORT CONSULTANT. Pt was seen here previously on 05/02/19 [...] Laith Harvey on 05/22/19 at 1129 Re-Evaluation [facility] )( Re-Evaluation/Progress #1 Text/Dict Note NO edema [...] Dose Route Stop Time Status Admin Ipratropium [place] 0.5 MG Q15M 05/22 1130 DC 05/22 [...] on 05/22/19 at 1129 at 202 RPT #:[id number] END OF REPORT [facility] 2019-05-02 09:53:00 [facility] ([facility] EMERGENCY PROVIDER REPORT REPORT#:[id number] REPORT STATUS: Signed DATE:05/02/19 TIME: 952 PATIENT: LUIS EDMONDS UNIT #: [id number] ROOM/BED: AGE: 18 SEX: F PCP PHYS: Elina Rome MD SERVICE AUTHOR: Carla Toledo MD * ALL edits or amendments must be made on the electronic/computer document * HPI-Allergic Reaction Peds General Confirmed Patient Yes Initial Greet Date/Time 05/02/[address] 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 Now c/o itchy throat. Denies nausea and [...] Pulse 77 05/02 1130 Resp 18 05/02 113 Review of Vital Signs Reviewed Focused PE [...] Admin Albuterol/Ipratropium 3 ML X1ED STA 05/02 953 DC 05/02 NEB 05/02 954 1002 Gastrointestinal Drugs Sig/Trish Start time Last Medication Dose Route Stop Time Status Admin Famotidine 20 MG X1ED STA 05/02 953 DC 05/02 IV 05/02 954 1002 Hormones And Synthetic Substit Sig/Trish Start time Last Medication Dose Route Stop Time Status Admin Methylprednisolone 125 MG X1ED STA 05/02 953 DC 05/02 Sodium Succinate IV 05/02 954 1002 Portions of this section were scribed by Priscilla Edwards on 05/02/19 at 0957 Patient Discharge Departure Vital Signs/Condition Vital Signs First Documented: Result Date Time Pulse Ox 98 05/02 0944 B/P 121/57 05/02 0944 B/P Mean 78 05/02 944 Temp 36.9 05/02 944 Pulse 82 05/02 0944 Resp 18 05/02 [...] Priscilla Edwards on 05/02/19 at 0957 at 5878 RPT #:[id number] END OF REPORT [facility]
[2025-05-02] MEDS ORDERED: HYDROCODONE/APAP 5/325 MG TAB ONE (21:46)
--- NOTE | 2025-05-02 23:30 | RAD REPORT ---
EXAM: XR Wrist Left 3 View HISTORY: [facility] MAIN PAIN Bed Name: 11 COMPARISON: 04/24/2025 TECHNIQUE: 3 views of the left wrist. FINDINGS: No evidence of acute fracture or dislocation. Small ovoid corticated density at the tip of the ulnar styloid suggesting a small ossicle. Joint alignment is maintained. No soft tissue swelling is seen. No significant degenerative changes are present. IMPRESSION: No evidence of acute osseous abnormality.
--- NOTE | 2025-05-02 23:43 | EDPHYS ---
Physician Documentation [facility] Name: Hilaria Rogers Age: 24 yrs Sex: Female : 2000 Arrival Date: 05/02/2025 Time: 20:50 Bed 11 Private MD: ED Physician Gamaliel Petit HPI: 05/02 22:00 This 24 yrs old Female presents to ER via Ambulatory with complaints of Arm Injury. cp 22:00 The patient or guardian complains of pain. The complaints affect the left wrist. cp Patient is a 24-year-old female who returns to the emergency department with pain to her left wrist after being seen on 04/25/2025 and being diagnosed with a left wrist fracture. Patient was splinted at that visit and she reports that her child jumped onto the splint and subsequently destroyed the splint causing increased pain to her left wrist today. Patient has not followed up with Ortho. 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 ROS: 22:05 Constitutional: Negative for body aches, chills, fever, poor PO intake, cp 22:05 Neck: Negative for pain with movement, pain at rest, cp 22:05 Back: Negative for pain at rest, pain with movement, 22:05 MS/extremity: Positive for pain, paresthesias, tenderness, of the left wrist, Negative for decreased range of motion, deformity, 22:05 All other systems are negative, Exam: 22:10 Constitutional: The patient appears in no acute distress, alert, awake, non-toxic, well cp developed, well nourished, 22:10 Head/Face: Normocephalic, atraumatic. cp 22:10 Eyes: Periorbital structures: appear normal, Conjunctiva: normal, no exudate, no injection, Lids and lashes: appear normal, bilaterally, 22:10 ENT: External ear(s): are unremarkable, Nose: is normal, Mouth: Lips: moist, Oral mucosa: moist, Posterior pharynx: Airway: no evidence of obstruction, patent, 22:10 Neck: ROM/movement: is normal, is supple, without pain, no range of motions limitations, 22:10 Chest/axilla: Inspection: normal, 22:10 Cardiovascular: Rate: normal, 22:10 Respiratory: the patient does not display signs of respiratory distress, Respirations: normal, no use of accessory muscles, no retractions, labored breathing, is not present, Breath sounds: are clear throughout, no decreased breath sounds, 22:10 Abdomen/GI: Inspection: abdomen appears normal, 22:10 Musculoskeletal/extremity: Extremities: noted in the left wrist: lateral and medial side tenderness to palpation, mild swelling, pain with passive ROM, mild numbness noted radial side of wrist, Vital Signs: 21:02 BP 116 / 81; Pulse 86; Resp 16; Temp 98.3; Pulse Ox 100% ; Weight 90.72 kg; Height 5 dd2 ft. 2 in. ; Pain 9/10; 23:56 BP 123 / 71; Pulse 79; Resp 16; Pulse Ox 100% on R/A; jb4 21:02 Body Mass Index 36.58 (90.72 kg, 157.48 cm) dd2 21:02 Pain Scale: Adult dd2 MDM: 21:27 Medical Screening Exam initiated cp 23:41 Data reviewed: vital signs, nurses notes, radiologic studies, plain films, and as a cp result, I will discharge patient. 23:41 Differential diagnosis: dislocation, closed fracture, contusion, tendonitis, sprain. I cp considered the following discharge prescriptions or medication management in the emergency department Medications were administered in the Emergency Department. See MAR. Counseling: I had a detailed discussion with the patient and/or guardian regarding the historical points, exam findings, and any diagnostic results supporting the discharge/admit diagnosis, radiology results, the need for outpatient follow up, a orthopedic surgeon, to return to the emergency department if symptoms worsen or persist or if there are any questions or concerns that arise at home. ED course: Vital signs stable. Discussed results of today's x-rays that show she has a possible small avulsion fracture versus osteophyte of the distal ulnar styloid. No obvious fractures through the distal radius and or the shaft of the distal ulna are noted on x-rays today. Will go ahead and place in a Velcro type wrist splint for comfort and support and recommend follow-up with Ortho. 05/02 21:49 Order name: XRAY Wrist LEFT 3 view; Complete Time: 23:35 cp 05/02 23:36 Order name: Splint - Wrist; Complete Time: 23:56 cp Administered Medications: 22:07 Drug: HYDROcodone-acetaminophen PO 5 mg-325 mg 1 tabs PO once Route: PO; jb4 23:56 Follow up: Response: No adverse reaction; Marked relief of symptoms; Pain is decreased jb4 Disposition: 05/03 23:50 Chart complete. cp Disposition Summary: 05/02/25 23:42 Discharge Ordered Notes: Location: Home cp Problem: an ongoing problem cp Symptoms: have improved cp Condition: Stable cp Diagnosis - Pain in left wrist cp Followup: cp - With: Arden Colin MD - When: 5 - 6 days - Reason: Recheck today's complaints Discharge Instructions: - Discharge Summary Sheet cp - Wrist Pain, Adult cp Forms: - Medication Reconciliation Form cp - Antibiotic Education cp - Prescription Opioid Use cp - Patient Portal Instructions cp - Leadership Thank You Letter cp Prescriptions: - Naprosyn 500 mg Oral tablet - take 1 tablet ORAL route 2 times per day take with food; 20 tablet; Refills: 0, cp Product Selection Permitted Addendum: 05/04/2025 02:45 Co-signature as Attending Physician, Gamaliel Petit DO I reviewed the patient's care t t7 provided by the Advanced Practice Provider and agree with the diagnosis and treatment plan. Signatures: Dispatcher [employer] EDMS Gabriel Centeno PA-C PA-C cp Bryson, James, RN RN jb4 TARSHA SHELDON RN RN dd2 Gamaliel Petit DO DO tt7 Corrections: (The following items were deleted from the chart) 05/02 22:05 21:50 Test, Urine+UC.LAB.BRZ ordered. EDMS EDMS 22: 21:50 UA Rfx Garry Cult if indicated+U.LAB.BRZ ordered. EDMS EDMS
--- NOTE | 2025-05-02 23:43 | ER ---
Nurse's Notes [facility] Name: Hilaria Rogers Age: 24 yrs Sex: Female : 2000 Arrival Date: 05/02/2025 Time: 20:50 Bed 11 Private MD: Diagnosis: Pain in left wrist Presentation: 05/02 21:00 Chief complaint: Patient states: HERE ON 04/25/2025 D/X WITH LT BROKEN RADIUS, LAST dd2 NIGHT BABY JUMPED ON HER ARM, BROKE THE SPLINT THAT WAS PLACED IN THE ER AND NOW LT WRIST PAINFUL. Coronavirus screen: At this time, the client does not indicate any symptoms associated with coronavirus-19. Ebola Screen: No symptoms or risks identified at this time. Risk Assessment: Do you want to hurt yourself or someone else? Patient reports no desire to harm self or others. Onset of symptoms was May 01, 2025. 21:00 Method Of Arrival: Ambulatory dd2 21:00 Acuity: CONCHITA 3 dd2 21:02 Initial Sepsis Screen: Does the patient meet any 2 criteria? No. Patient's initial dd2 sepsis screen is negative. Does the patient have a suspected source of infection? No. Patient's initial sepsis screen is negative. Triage Assessment: 21:02 General: Appears in no apparent distress. uncomfortable, Behavior is calm, cooperative, dd2 appropriate for age. Pain: Complains of pain in left wrist. Musculoskeletal: Reports pain in left wrist. 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 Screenin:56 [facility] ED Fall Risk Assessment (Adult) History of falling in the last 3 months, jb4 including since admission No falls in past 3 months (0 pts) Confusion or Disorientation No (0 pts) Intoxicated or Sedated No (0 pts) Impaired Gait No (0 pts) Mobility Assist Device Used No (0 pt) Altered Elimination No (0 pt) Score/Fall Risk Level 0 - 2 = Low Risk Oriented to surroundings, Maintained a safe environment. Abuse screen: Denies threats or abuse. Nutritional screening: No deficits noted. Tuberculosis screening: No symptoms or risk factors identified. Assessment: 21:15 General: Appears in no apparent distress. comfortable, Behavior is calm, cooperative, jb4 appropriate for age. Pain: Complains of pain in dorsal aspect of left forearm Pain does not radiate. Pain currently is 9 out of 10 on a pain scale. Neuro: Level of Consciousness is awake, alert, obeys commands, Oriented to person, place, time, situation. Cardiovascular: Patient's skin is warm and dry. Respiratory: Airway is patent Respiratory effort is even, unlabored, Respiratory pattern is regular, symmetrical. Derm: Skin is intact, Skin is pink, warm \T\ dry. Musculoskeletal: Circulation, motion, and sensation intact. Range of motion: intact in all extremities. 22:39 Reassessment: Patient appears in no apparent distress at this time. Patient and/or jb4 family updated on plan of care and expected duration. Pain level reassessed. Patient is alert, oriented x 3, equal unlabored respirations, skin warm/dry/pink. 23:56 Reassessment: Patient appears in no apparent distress at this time. Patient and/or jb4 family updated on plan of care and expected duration. Pain level reassessed. Patient is alert, oriented x 3, equal unlabored respirations, skin warm/dry/pink. Vital Signs: 21:02 BP 116 / 81; Pulse 86; Resp 16; Temp 98.3; Pulse Ox 100% ; Weight 90.72 kg; Height 5 dd2 ft. 2 in. ; Pain 9/10; 23:56 BP 123 / 71; Pulse 79; Resp 16; Pulse Ox 100% on R/A; jb4 21:02 Body Mass Index 36.58 (90.72 kg, 157.48 cm) dd2 21:02 Pain Scale: Adult dd2 ED Course: 20:51 Patient arrived in ED. mr 21:02 Triage completed. dd2 21:02 Arm band placed on right wrist. dd2 21:27 Gabriel Centeno PA-C is PHCP. cp 21:27 Gamaliel Petit DO is Attending Physician. cp 22:18 XRAY Wrist LEFT 3 view In Process Unspecified. EDMS 22:38 Ki Abel, KELSEY is Primary Nurse. jb4 23:41 Arden Colin MD is Referral Physician. cp 23:56 Patient has correct armband on for positive identification. Bed in low position. Call jb4 light in reach. Side rails up X 1. Provided Education on: discharge instructions.. 23:56 No provider procedures requiring assistance completed. Patient did not have IV access jb4 during this emergency room visit. Administered Medications: 22:07 Drug: HYDROcodone-acetaminophen PO 5 mg-325 mg 1 tabs PO once Route: PO; jb4 23:56 Follow up: Response: No adverse reaction; Marked relief of symptoms; Pain is decreased jb4 Medication: 23:56 VIS not applicable for this client. jb4 Outcome: 23:42 Discharge ordered by MD. cp 23:56 Discharged to home ambulatory, jb4 23:56 Condition: stable 23:56 Discharge instructions given to patient, Instructed on discharge instructions, follow up and referral plans. medication usage, Demonstrated understanding of instructions, follow-up care, medications, Prescriptions given X 1, 23:58 Patient left the ED. jb4 Signatures: Dispatcher [employer] EDMS NanceLuzma dave, Dusty Reg mr Gabriel Centeno, PA-C PA-C Ki Rod, RN RN jb4 TARSHA SHELDON RN RN dd2 Corrections: (The following items were deleted from the chart) 21:04 21:00 Chief complaint: Patient states: HERE ON 04/25/2025 D/X WITH LT BROKEN RADIUS, dd2 LAST NIGHT BABY JUMPED ON HER ARM, BROKE THE HARD CAST AND LT WRIST PAINFUL. dd2 21:07 21:02 BP 127 / 78; Pulse 86bpm; Resp 16bpm; Pulse Ox 100%; Temp 98.3F; 90.72 kg; Height dd2 5 ft. 2 in.; BMI: 36.5; Pain 9/10, Adult; dd2
[2025-05-03 00:46] VITALS: O2SAT 100
[2025-05-03 00:47] VITALS: BP 123/71
[2025-05-03 01:09] VITALS: TEMP 97.9
== END 2025-05-02 23:58 | disposition home or self-care (01) ==
LOC: ER 20:50
DX: M25.532 Pain in left wrist (principal)
CPT/HCPCS: 99283